=== PATIENT | female | born 1940 | race Caucasian/White ===

== ENCOUNTER → 2017-03-22 15:58 | Outpatient (CLI) | payer MEDICARE, OTHER, SELFPAY ==
--- NOTE | 2017-03-22 16:02 | RAD_ITS ---
STUDY: X-RAY - LEFT KNEE REASON FOR EXAM: Female, 76 years old. Lateral bruising. Pain. TECHNIQUE: 4 view(s) of the knee. COMPARISON: None. FINDINGS: Normal visualized distal femur. Normal visualized proximal tibia and fibula. Normal proximal tibiofibular articulation. There is no acute fracture, dislocation or destructive osseous pathology. Normal medial femorotibial compartment. Normal lateral femorotibial compartment. There is moderate degenerative arthrosis of the patellofemoral articulation. There is no demonstrated joint effusion. The soft tissue structures are unremarkable. RAD/Knee 4 or More Views IMPRESSION: Mild arthrosis of the left knee. Electronically Signed: Derrick Ireland DO at 16:32 EST Tel [phone], Service support ,
[2017-03-22 17:02] LABS: Absolute Lymphocyte Count 3.14 X10^3/ul (0.83-4.51); Basophil# 0.06 X10^3/uL; Basophil% 0.7 % (0-1); Eosinophil# 0.23 X10^3/uL; Eosinophils% 2.5 % (0-5); Hematocrit 40.1 % (37-47); Hemoglobin 13.5 g/dl (12.0-15.0); Lymphocyte # 3.14 X10^3/ul (4.0); Lymphocyte % 34.1 % (19-41); Mean Corp Hgb Conc 33.7 g/gl (32-36); Mean Corpuscular Hgb 29.9 pg (27.0-32.0); Mean Corpuscular Volume 88.7 fL (81-99); Mean Platelet Vol. 10.1 fl (6.2-12.0); Monocyte# 0.76 X10^3/uL; Monocyte% 8.2 % (0-10); Neutrophil # 5.02 X10^3/uL (2.7-7.7); Neutrophil % 54.4 % (47-70); Platelet Count 261 K/mm3 (150-450); RBC Distribution Width CV 12.3 % (11.6-14.6); RBC Distribution Width SD 38.7 fl (35.1-43.9); Red Blood Count 4.52 M/mm3 (4.2-5.4); White Blood Count 9.2 K/mm3 (4.4-11.0)
[2017-03-22 17:05] LABS: POSITIVE COUNT NO; POSITIVE DIFFERENTIAL NO; POSITIVE MORPHOLOGY NO
[2017-03-22 17:43] LABS: Anion Gap 8 (5-15); BUN 18 mg/dL (7-18); BUN/Creat Ratio 19.2 RATIO (10-20); CRP < 2.90 mg/L (0.0-3.0); Calcium,Total 9.4 mg/dL (8.5-10.1); Chloride 105 mmol/L (98-107); Creatinine, Serum 0.94 mg/dL (0.55-1.02); EST Glomerular Filtration Rate 61 mL/min (>60); Est Glom Filt Rate - Afr Amer 74 mL/min (>60); Glucose 100 mg/dL (74-106); Potassium 4.1 mmol/L (3.5-5.1); Sodium Level 141 mmol/L (136-145); Uric Acid 3.8 mg/dL (2.6-6.0)
[2017-03-22 18:41] LABS: Erythrocyte Sedimentation Rate 3 mm/hr (0-30)
== END ==
PROVIDERS: Family Provider Family Medicine Geriatric Medicine; PCP Family Medicine Geriatric Medicine; Visit Provider Family Medicine Geriatric Medicine
DX: M10.9 Gout, unspecified (principal); R60.9 Edema, unspecified; M25.562 Pain in left knee
CPT/HCPCS: 36415; 73564; 80048; 84550; 85025; 85652; 86140

== ENCOUNTER → 2017-04-03 09:14 | Outpatient (CLI) | payer MEDICARE, OTHER, SELFPAY ==
--- NOTE | 2017-04-03 10:00 | MRI_ITS ---
STUDY: MRI LEFT KNEE REASON FOR EXAM: Left knee pain for 6 weeks. TECHNIQUE: Standardized fat and water weighted pulse sequences were obtained in all 3 orthogonal planes. COMPARISON: Radiographs 03/22/2017. FINDINGS: There is a complex tear of the posterior horn of the medial meniscus (proton-density sagittal images 13-15). There is mild peripheral subluxation of the medial meniscus. There is mild arthrosis of the medial femorotibial compartment with a small marginal osteophyte of the medial femoral condyle and mild partial-thickness chondral loss of the medial femoral condyle (T2 sagittal image 9). There is mild subchondral bone edema of the medial tibial plateau (T2 coronal images 15-18), a stress phenomenon. There is periligamentous inflammation of the medial collateral ligament (T2 coronal image 15). Normal distal semimembranosus, gracilis and semitendinosus tendons. There is a vertical tear of the inferior articular surface of the anterior horn of the lateral meniscus (proton-density sagittal images 31-34). Normal hyaline cartilage of the lateral femorotibial compartment. Normal lateral femoral condyle and tibial plateau. Normal proximal tibiofibular articulation. Normal lateral collateral (fibular) ligament. Normal popliteus tendon. Normal biceps femoris tendon. Normal anterior cruciate ligament (ACL). Normal posterior cruciate ligament (PCL). Normal congruent patellofemoral articulation. There is arthrosis of the patellofemoral compartment with small marginal osteophytes and chondral loss, particularly of the patella (sagittal image 13). Normal medial and lateral patellar retinaculum. Normal quadriceps tendon. Normal patellar tendon. Normal Hoffa's fat pad. There is a small to moderate-sized joint effusion. There is a thin medial patellar plica. There is a popliteal cyst measuring approximately 3.9 cm in length with extravasation of fluid (T2 sagittal images 7-11). There is edema in the anterior subcutis adipose space. The otherwise visualized osseous structures are unremarkable. MRI/Lower Ext Joint Only (Routine) IMPRESSION: Medial meniscal tear. Lateral meniscal tear. Patellofemoral arthrosis and mild arthrosis of the medial femorotibial compartment. Mild subchondral bone edema of the medial tibial plateau, a stress phenomenon. Periligamentous inflammation of the medial collateral ligament. Joint effusion. Popliteal cyst with extravasation of fluid. Electronically Signed: Marcelino Braxton MD at 11:21 EST Tel , Service support ,
== END ==
PROVIDERS: Family Provider Family Medicine Geriatric Medicine; PCP Family Medicine Geriatric Medicine; Visit Provider Family Medicine Geriatric Medicine
DX: M25.569 Pain in unspecified knee (principal)
CPT/HCPCS: 73721

== ENCOUNTER → 2017-04-17 14:15 | Outpatient (CLI) | payer MEDICARE, OTHER, SELFPAY ==
[2017-04-17 16:41] LABS: Absolute Lymphocyte Count 1.87 X10^3/ul (0.83-4.51); Absolute Neutrophil Count 8.3 X10^3/uL (2.0-7.7); Basophil# 0.03 X10^3/uL; Basophil% 0.3 % (0-1); Eosinophil# 0.11 X10^3/uL; Hematocrit 42.9 % (37-47); Lymphocyte # 1.87 X10^3/ul (4.0); Lymphocyte % 16.6 % (19-41); Mean Corp Hgb Conc 32.6 g/gl (32-36); Mean Corpuscular Hgb 29.5 pg (27.0-32.0); Mean Corpuscular Volume 90.3 fL (81-99); Mean Platelet Vol. 10.6 fl (6.2-12.0); Monocyte# 0.93 X10^3/uL; Monocyte% 8.2 % (0-10); Neutrophil # 8.33 X10^3/uL (2.7-7.7); Neutrophil % 73.7 % (47-70); Platelet Count 277 K/mm3 (150-450); RBC Distribution Width CV 12.6 % (11.6-14.6); RBC Distribution Width SD 41.5 fl (35.1-43.9); Red Blood Count 4.75 M/mm3 (4.2-5.4); White Blood Count 11.3 K/mm3 (4.4-11.0)
[2017-04-17 16:46] LABS: POSITIVE COUNT NO; POSITIVE DIFFERENTIAL NO; POSITIVE MORPHOLOGY NO
[2017-04-17 16:55] LABS: ALB/GLOB Ratio 1.1 RATIO (0.9-2.4); AST(SGOT) 19 U/L (15-37); Alanine Aminotransfer ALT/SGPT 20 U/L (13-56); Albumin, Serum 3.5 g/dL (3.2-5.0); Alkaline Phosphatase 86 U/L (45-117); Anion Gap 6 (5-15); BUN 22 mg/dL (7-18); BUN/Creat Ratio 20.8 RATIO (10-20); Calcium,Total 9.3 mg/dL (8.5-10.1); Chloride 106 mmol/L (98-107); Creatinine, Serum 1.06 mg/dL (0.55-1.02); EST Glomerular Filtration Rate 53 mL/min (>60); Est Glom Filt Rate - Afr Amer 65 mL/min (>60); Globulin 3.2 g/dL (2.2-4.2); Glucose 131 mg/dL (74-106); Potassium 4.4 mmol/L (3.5-5.1); Protein, Total 6.7 g/dL (6.4-8.2); Sodium Level 139 mmol/L (136-145); Thyroid Stim Hormone (TSH) 1.03 uIU/mL (0.358-3.74)
[2017-04-18 08:51] LABS: Vitamin D,25 Hydroxy 29.4 ng/mL (29.95-100.01)
== END ==
PROVIDERS: Family Provider Family Medicine Geriatric Medicine; PCP Family Medicine Geriatric Medicine; Visit Provider Family Medicine Geriatric Medicine
DX: E55.9 Vitamin D deficiency, unspecified (principal); I10 Essential (primary) hypertension
CPT/HCPCS: 36415; 80053; 82306; 84443; 85025

== ENCOUNTER 2017-05-01 05:31 | Inpatient (IN) | payer MEDICARE, OTHER, SELFPAY ==
[2017-04-24 11:18] VITALS: BP 185/90; PULSE 56; RESP 16; TEMP 37.1; O2SAT 100; BMI 28.7
[2017-05-01] VITALS (12 sets, daily range): BP systolic 139–193; BP diastolic 72–89; PULSE 59–86; RESP 16–18; TEMP 35.7–36.9; O2SAT 92–100; BMI 28.7; BMI 28.6
--- NOTE | 2017-05-01 | KNEE_PTH ---
PATIENT: JANIA SPRAGUE LOC: [facility]3 U#:[id number] AGE/SX: 76/F ROOM: [facility]307 RE05/01/[address]: Luan Burns DO : 1940 BED: 1 DIS: 05/04/2017 SPEC #: [id number] RECD: 05/01/17 11:24 STATUS: ISMAEL MARY BETH #: [id number] JYOTI: 05/01/17 00:[address]: Luan Burns DEPT: SURGICAL PATHOLOGY RECD BY: Jose Solis ENTERED: 05/01/17 11:26 SP TYPE: TOTAL KNEE OTHR DR: Dr. Brandon March MD Tissues: Knee, NOS Procedures: Decalcification bone/plaque Surgery Specimen Level IV HEADER OPERATION: Total knee replacement PRE-OP DIAGNOSIS: Primary osteoarthritis of left knee TISSUE SUBMITTED: Debrided bone and tissue, left knee MICROSCOPIC DIAGNOSIS Bone and soft tissue of left knee, total knee resection: Degenerative joint disease. AM:jerri 05/04/17 MICROSCOPIC DESCRIPTION Slides are reviewed. GROSS DESCRIPTION Received is one container designated debrided bone and tissue left knee. The specimen consists of multiple fragments of edwards-yellow bone measuring in aggregate 10 x 9 x 3 cm. Also in the specimen container are multiple fragments of yellow-white soft tissue measuring in aggregate 6 x 6 x 2.5 cm. A number of bony fragments contain articular surfaces consistent with tibial plateau and femoral condyle and displaying prominent osteophyte formation and bone erosion. Refrigerator Mover sections are submitted in two cassettes as follows: 1 - soft tissue, 2 - bone after decalcification. / EMILY:jerri 05/01/17 TC:5 CPT: 38458, 43678
[2017-05-01] MEDS: Celecoxib 200 MG Capsule PO (06:12)
[2017-05-01] MEDS: oxyCODONE HCl Cr 10 MG Tablet PO ×2 (06:12→23:26)
[2017-05-01] MEDS: Cefazolin 2 GM in 0.9% Normal Saline 100 ML IV (07:13)
--- NOTE | 2017-05-01 08:54 | OP.PN_ITS ---
Immediate Post-Op Note Date of Procedure: 05/01/17 Primary Surgeon/Physician: Luan Burns DO real estate developer: Herlinda Mclean Pre-Operative Diagnosis: Left knee osteoarthritis and internal derangement. Post-Operative Diagnosis: Same as above Surgery/Procedure Performed:: Left total knee arthroplasty Humberto ESPITIA Description of Surgical Findings:: See dictation Estimated Blood Loss: 50 Specimen's removed: Bone cuts Type of Anesthesia:: Spinal ASA Class: ASA2 Mod Systematic Disease - Admit VTE Documentation VTE Present on Admission: No VTE Mechan Device Prophylaxis: SCD's, Knee High BETTIE Alvarado
--- NOTE | 2017-05-01 08:54 | PCM.OPRPT ---
Report of Operation Date of Procedure: 05/01/17 Pre-Operative Diagnosis: Left knee osteoarthritis and internal derangement. Post-Operative Diagnosis: Same as above Surgery/Procedure Performed:: Left total knee arthroplasty Humberto marjan ESPITIA Description of Surgical Findings:: 76-year-old female with recalcitrant left knee pain that failed nonoperative management to include NSAIDs and modifications physical therapy injections. She had plain from radiographs are relatively normal however MRI showed significant extrusion of her meniscus subchondral edema and degenerative changes across the medial patellofemoral joint. Having failed conservative measures and having done so well with previous right total knee arthroplasty patient desired a left total knee arthroplasty. She was up to counseled and consented for left total knee. She was met in the holding area where the left lower extremity was marked and identified by the with surgeon. Patient was taken the operating room in satisfactory condition with somewhat to place to identify patient operative procedure and limb. Patient received 2 g Ancef and 1 g of TXA. Patient underwent a successful spinal anesthesia. She was then prepped and draped in usual fashion. She had a well-placed tourniquet to the left proximal thigh. Left lower extremity was elevated Esmarch used for exsanguination tourniquet was increased to 250 mmHg for roughly 59 minutes. Patient had a standard midline incision made 2 fingerbreadths above the patella down to the tibial tubercle with sharp dissection down to soft tissues and Bovie cautery to control any bleeding. The patient then underwent a standard medial parapatellar approach.. Patient had a large return effusion. He can be seen the patient had significant chondromalacia across the medial compartment the patellofemoral joint lateral compartment was relatively preserved. Standard anterior release and synovectomy was undertaken. We then performed a standard posterior medial release. We then entered into the intramedullary canal to perform our distal femoral cut of 8 mm with 6? valgus. This was done using standard technique. We then sized. The patient sized to a size 3. Size 3 cutting jig was then introduced to the distal femur and remnant cuts were performed. We recheck to see if we can go down to a size 2 but we would have notch the femur. We elected to stay with a 3 component. We then turned our attention to the tibia. The guide was set for a CR component to the fact the patient had an intact PCL. Standard cuts were performed taking 2 mm off the medial side. Temporary spacer was introduced and the patient showed good mechanical alignment at 0 30 and 90? of flexion with no flexion extension gaps. At that point the femoral component was introduced a 9 femoral tray and again we had excellent stability at 0 3090? of flexion. Keel holes were placed for the femoral component. The component was then extracted and the keel punch placed for the tibial tray. This was done using standard technique. Then turned our attention to the patella. Patella is overall thickness was 20. We took off 9. The patient sized with 32 button. Standard holes were then placed in anticipation of a cemented component. We then copiously irrigated the knee removed any of the excess menisci from the medial lateral compartments and cauterized the posterior geniculate vessels both anteromedial and posterior medial and anterolateral posterior lateral. Cement was then prepared the back table using standard technique. We then cemented the tibial tray femoral component and placed a 9 mm spacer allowing for good compression. Patella was then seated using standard technique. Cement was allowed to cure accordingly. I then injected with 50 cc of the joint cocktail for additional pain control. At that point time upon cement curing any excess cement was removed around the periphery of the joints. The joint was run copiously irrigated multiple times remove any excess debris. At that point we elected to place a 9 CS Perlita. This was impacted using standard technique. We had excellent patellar tracking. After a small lateral release. We then began our closure. The leg was brought to 30? knee flexion of the distal two thirds of the wound were closed with [id number] technique. The proximal one third closed in full extension. The tourniquet was let down during final closure at 59 minutes. We closed the subcu with 2-0 Vicryl running subicular Monocryl Dermabond and a Silverlon dressing placed in 30? knee flexion. Compressive wrap was then applied. I was scrubbed and available time during our procedure. We had no drains or complications. Implants included the Humberto triathlon CR component again 3 femur 3 tibia 9 CS Perlita and a 32 patella button. Patient was admitted to floor for 24 hours of IV antibiotics appropriate IV and p.o. pain medication and DVT prophylaxis to include SCDs teds and 325 p.o. twice daily of aspirin with appropriate GI prophylaxis. Any major issues please contact me. laundry helper: Herlinda Mclean Type of Anesthesia:: Spinal Specimen's removed: Bone cuts Estimated Blood Loss (mL): 50 Grafts/Implants Used: Striker triathlon cemented CR 3, 3, 9 CS, 32 - Complications None - Admit VTE Documentation VTE Present on Admission: No VTE Mechan Device Prophylaxis: SCD's, Knee High BETTIE Hose VTE Pharm Prophylaxis ordered?: Yes
--- NOTE | 2017-05-01 09:30 | RAD_ITS ---
STUDY: X-RAY - LEFT KNEE REASON FOR EXAM: Female, 76 years old. Total knee replacement. TECHNIQUE: AP and lateral view(s) of the knee. COMPARISON: Comparison is made with prior study dated March 22, 2017. FINDINGS: Normal visualized distal femur. Normal visualized proximal tibia and fibula. Normal proximal tibiofibular articulation. The patient is status post total knee replacement. There is good alignment. Postoperative soft tissue changes. RAD/Knee 1 or 2 Views IMPRESSION: Total knee replacement. There is good alignment. Postoperative soft tissue changes. Electronically Signed: Mendoza Galloway MD at 10:21 EDT Tel [phone], Service support ,
[2017-05-01] MEDS: cloNIDine HCl 0.2 MG Tablet PO ×2 (11:58→23:27)
[2017-05-01] MEDS: Senna/Docusate Sodium 1 Tablet 2 TABLET PO ×2 (12:00→23:28)
[2017-05-01] MEDS: Famotidine 20 MG Tablet PO (12:00)
[2017-05-01] MEDS: Acetaminophen 500 MG Tablet 1000 MG PO ×2 (14:44→23:27)
[2017-05-01] MEDS: Cefazolin 1 GM/50 ML BAG IV ×2 (14:45→23:28)
--- NOTE | 2017-05-01 15:18 | CHAPLAIN ---
Type of Pastoral Visit _x__ Initial Visit ___ Follow-up Visit ___ On-call Visit ___ General Patient Visit ___ Spiritual Assessment ___ Family Conference ___ Bereavement ___ Rapid Response ___ Code Blue ___ Other (describe below) Pastoral Care Referral From _x__ Patient ___ Family ___ Nurse ___ Physician ___ Youth Leader ___ Quarry Extraction Worker ___ Other (describe below) Sacrament/Intervention _x__ Active listening ___ Anointing ___ Anabaptism ___ Bereavement ___ Communion ___ Amber exploration ___ ___ Life review _x__ Prayer ___ Reconciliation ___ Sacrament of Sick ___ Supportive presence ___ Wedding ___ Other (describe below) Pastoral Comments
--- NOTE | 2017-05-01 15:52 | CASEMGMT ---
Social Work Note According to Dr. Burns pt wanted TCU for rehabilitation. Placed call to [facility] to check on availability and left vm. Will f/u tomorrow. Transfer to [facility] forms placed on chart for physician to sign. Plan: TCU for rehabilitation. Sarita Peters, LIQUOR DEPARTMENT MANAGER, PSYCHOLOGICAL OPERATIONS SPECIALIST
[2017-05-01] MEDS: HYDROcodone Bitartrate/Apap 5/325 Tablet PO (18:27)
[2017-05-01] MEDS: Lactated Ringers 1,000 ML 75 ML IV (18:28)
[2017-05-01] MEDS: Aspirin 325 MG Tablet PO (23:27)
[2017-05-01] MEDS: 0.9% NaCl Peripheral Flush Adult/Peds IV (23:39)
[2017-05-01] MEDS: Ondansetron 4 MG/2 ML Vial IV (23:40)
[2017-05-02] VITALS (8 sets, daily range): BP systolic 158–217; BP diastolic 65–87; PULSE 68–81; RESP 16–18; TEMP 36.6–37; O2SAT 95–97
[2017-05-02 06:01] LABS: Hematocrit 35.8 % (37-47); Hemoglobin 11.8 g/dl (12.0-15.0); Mean Corpuscular Hgb 29.7 pg (27.0-32.0); Mean Corpuscular Volume 90.2 fL (81-99); Mean Platelet Vol. 9.8 fl (6.2-12.0); Platelet Count 217 K/mm3 (150-450); RBC Distribution Width CV 12.4 % (11.6-14.6); RBC Distribution Width SD 40.2 fl (35.1-43.9); Red Blood Count 3.97 M/mm3 (4.2-5.4); White Blood Count 14.6 K/mm3 (4.4-11.0)
[2017-05-02 06:05] LABS: Scan Indicated on CBC? Y/N NO
[2017-05-02 06:06] LABS: Anion Gap 4 (5-15); BUN 15 mg/dL (7-18); BUN/Creat Ratio 15.8 RATIO (10-20); Calcium,Total 8.9 mg/dL (8.5-10.1); Chloride 109 mmol/L (98-107); Creatinine, Serum 0.95 mg/dL (0.55-1.02); EST Glomerular Filtration Rate 61 mL/min (>60); Est Glom Filt Rate - Afr Amer 73 mL/min (>60); Estimated Creatinine Clearance 37.42 ml/min; Glucose 106 mg/dL (74-106); Potassium 4.9 mmol/L (3.5-5.1); Sodium Level 142 mmol/L (136-145)
[2017-05-02] MEDS: 0.9% NaCl Peripheral Flush Adult/Peds IV ×5 (06:19→20:33)
[2017-05-02] MEDS: Acetaminophen 500 MG Tablet 1000 MG PO ×3 (06:21→21:48)
[2017-05-02] MEDS: cloNIDine HCl 0.2 MG Tablet PO ×3 (06:22→21:48)
[2017-05-02] MEDS: HYDROcodone Bitartrate/Apap 5/325 Tablet PO (06:28)
--- NOTE | 2017-05-02 07:35 | NURSING ---
Spoke to Dr. Burns this am in regards to pts elevated BP. Will have hospitalist take a look at pt to see about adjusting BP meds or adding prn meds
--- NOTE | 2017-05-02 07:48 | PCM.PN.ORT ---
Subjective: Postop day 1 status post left total knee arthroplasty. Patient with some hypertension issues last night will consult the hospitalist team. We will adjust her pain medication at this time as well. Patient was really unsure prior to operation which pain medication she may tolerate. But this point still having some pain so we will convert her from [place] to OxyIR. No other real issues at this time. Lab values appear to be stable. Heart rate within the 80s. Awaiting approval for transfer to transitional care unit if available. - Physical Exam General: Alert, Oriented x3, Cooperative, No apparent distress Musculoskeletal: - - Distally neurovascular intact, no calf pain negative Homans. Dressing in place. No hematoma grossly. Range of motion 0-80. EHL anterior gastric shoulders peroneals quads hamstrings 5 out of 5. X-rays reviewed hardware well seated well-placed. Lab values reviewed and stable. Vital Signs Temp Pulse Resp BP Pulse Ox 98.1 F 74 16 197/80 H 96 05/02/17 02:30 05/02/17 06:25 05/02/17 02:30 05/02/17 06:25 05/02/17 02:30 Oxygen Flow Rate (L/min) 1 Oxygen Delivery Method Nasal Cannula Weight: 155 lb 13.869 oz Body Mass Index (BMI) 28.6 Intake and Output for Last 24 Hours 04/30/17 05/01/17 05/02/17 23:59 23:59 23:59 Intake Total 3703 / 3703 708 / 708 Balance 3703 / 3703 708 / 708 Laboratory Tests Past 24 Hrs 05/02/17 05/02/17 05:24 05:24 WBC 14.6 H RBC 3.97 L Hgb 11.8 L Hct 35.8 L MCV 90.2 MCH 29.7 MCHC 33.0 RDW 12.4 RDW Differential 40.2 Plt Count 217 MPV 9.8 Sodium 142 Potassium 4.9 Chloride 109 H Carbon Dioxide 29.0 Anion Gap 4 L BUN 15 Creatinine 0.95 Estim Creat Clear Calc 37.42 Est GFR (MDRD) Af Amer 73 Est GFR (MDRD) Non-Af 61 BUN/Creatinine Ratio 15.8 Glucose 106 Calcium 8.9 Medical Necessity - Tobacco Use Smoking Status: Never smoker Assessment/Plan Assessment: After orthopedics status post left total knee arthroplasty. Plan: We will consult the hospitalist to see if they need to add on any antihypertensive medications at this time. I will adjust her pain medications as well. Case management to evaluate for possible transfer to a senior care facility for rehab. We will continue to follow at this time. Any major issues please contact me.
[2017-05-02] MEDS: Losartan Potassium 100 MG Tablet PO (09:38)
[2017-05-02] MEDS: Senna/Docusate Sodium 1 Tablet 2 TABLET PO ×2 (09:38→21:47)
[2017-05-02] MEDS: Famotidine 20 MG Tablet PO (09:38)
[2017-05-02] MEDS: oxyCODONE HCl Cr 10 MG Tablet PO ×2 (09:38→21:48)
[2017-05-02] MEDS: Aspirin 325 MG Tablet PO ×2 (09:39→17:04)
--- NOTE | 2017-05-02 10:20 | CASEMGMT ---
Social Work Note SW met with pt, introduced self and role. SW informed pt that TCU has a bed and she will be discharging Sunday to TCU. Pt states understanding. Samira Sevilla FOREIGN EXCHANGE TRADER, FIELD AIDE.
[2017-05-02] MEDS: oxyCODONE 5 MG Tablet 10 MG PO (11:14)
[2017-05-02] MEDS: Multivitamins,Therapeutic Tablet 1 TABLET PO (11:15)
[2017-05-02] MEDS: hydrALAZINE 20 MG/ML Vial 10 MG IV (14:40)
--- NOTE | 2017-05-02 14:46 | PCM.PROGNOTE ---
Patient Problems: Active and Suspected Problems (Last Updated 04/09/17 @ 14:08 by Kendrick Godwin) Status post total left knee replacement (Acute) Subjective: Chief complaint: Consultation for postoperative medical management and uncontrolled hypertension. Patient seen and examined. No acute events overnight. Patient stated that her left knee pain is around 4-5 out of 10 in severity, management at this time. Current pain medication is working. She just came back from therapy session. She denied chest pain or shortness of breath. Denied headache or blurred vision. She mentioned that she was diagnosed with hypertension around 1 year ago and her blood pressure usually is not controlled. Her systolic blood pressure can be anywhere from 130s up to 190s. Diastolic blood pressures around 90s and that is her usual. Apparently, she underwent workup as outpatient for possible renal artery stenosis. She had bilateral renal duplex on April, that showed no evidence of hemodynamically significant renal artery stenosis. She had MRA abdomen on May, that showed no evidence of renal artery stenosis, revealed to left renal arteries without demonstrated narrowing or stenosis. Has been following up with Dr. Mixon, the vascular surgeon, as well as Dr. Jacobo, the shipping packer, as outpatient. Her blood pressure has been fluctuating significantly. Last night, maximum blood pressure was 193/89. Her other vital signs are stable. - Physical Exam General: Alert, Oriented x3, Cooperative, No apparent distress HEENT: Atraumatic, PERRLA, EOMI Oral: Moist Mucosa, No Gingival or Mucosal Lesions/ Ulcerations Neck: Supple, No JVD, Negative Carotid Bruits, Trachea Midline, Thyroid Normal Size and Texture Lungs: Clear to auscultation, Normal air movement, No rhonchi, No wheeze Cardiovascular: Regular rate, Regular Rhythm, Normal S1, Normal S2, No murmurs Abdomen: Bowel Sounds Present, Soft, Non Tender, Non-Distended, No Hepato-splenomegaly Extremities: No clubbing, No cyanosis, No edema Skin: No rashes, No breakdown Lymphatic: No Cervical, Supraclavicular, or Inguinal Adenopathy Neurological: Motor Exam 5/5 strength throughout Psych/Mental Status: Normal Affect, Appropriate, Alert and oriented to time, place, person, mood and affect Vital Signs Temp Pulse Resp BP Pulse Ox 98.6 F 68 18 159/79 H 95 05/02/17 09:17 05/02/17 09:17 05/02/17 09:17 05/02/17 09:17 05/02/17 09:17 Oxygen Flow Rate (L/min) 1 Oxygen Delivery Method Room Air Weight: 155 lb 13.869 oz Body Mass Index (BMI) 28.6 Intake and Output for Last 24 Hours 04/30/17 05/01/17 05/02/17 23:59 23:59 23:59 Intake Total 3703 / 3703 2358 / 2358 Balance 3703 / 3703 2358 / 2358 Laboratory Tests Past 24 Hrs 05/02/17 05/02/17 05:24 05:24 WBC 14.6 H RBC 3.97 L Hgb 11.8 L Hct 35.8 L MCV 90.2 MCH 29.7 MCHC 33.0 RDW 12.4 RDW Differential 40.2 Plt Count 217 MPV 9.8 Sodium 142 Potassium 4.9 Chloride 109 H Carbon Dioxide 29.0 Anion Gap 4 L BUN 15 Creatinine 0.95 Estim Creat Clear Calc 37.42 Est GFR (MDRD) Af Amer 73 Est GFR (MDRD) Non-Af 61 BUN/Creatinine Ratio 15.8 Glucose 106 Calcium 8.9 Clinical Impression(s) from Imaging Studies Knee X-Ray 05/01/17 09:30 IMPRESSION: Total knee replacement. There is good alignment. Postoperative soft tissue changes. Electronically Signed: Mendoza Galloway MD at 10:21 EDT Tel [phone], Service support , Medical Necessity - Tobacco Use Smoking Status: Never smoker Assessment/Plan Active and Suspected Problems (Last Updated 04/09/17 @ 14:08 by Kendrick Godwin) Status post total left knee replacement (Acute) This is a 76 years old female patient admitted for elective left total knee replacement for left knee osteoarthritis and I am seeing this patient for postoperative medical management and uncontrolled hypertension. #1 status post left total knee replacement: Postoperative day 1, this was done for left knee osteoarthritis. She is on IV morphine and OxyIR as needed for pain. She started in physical therapy. Her pain is manageable at this time. Orthopedic surgery is managing. #2 uncontrolled hypertension: Patient was diagnosed with hypertension one year ago, has been having uncontrolled hypertension. She had workup for possible secondary hypertension with bilateral renal Doppler as well as MRI of the abdomen that revealed no evidence of renal artery stenosis. She has been following up with Dr. Jacobo and Dr. Mixon as mentioned above. At this time, she is on clonidine and losartan. Blood pressure has been fluctuating significantly. Her left knee pain is also contributing. Plan: Continue clonidine, continue Cipro, start IV hydrazine as needed. I would recommend follow-up with Dr. Mixon and her PCP upon discharge. #3 DVT prophylaxis: SCDs, she is on aspirin full dose twice daily. This note was generated with [employer] dictation software. It may contain incorrect words, spelling, and punctuation that were not noted in checking the note before signing. Code Visit Inpatient E&M: 72405 Subs Hosp L2
--- NOTE | 2017-05-02 14:55 | PN_ITS ---
Patient Problems: Active and Suspected Problems (Last Updated 04/09/17 @ 14:08 by Kendrick Godwin) Status post total left knee replacement (Acute) Subjective: Chief complaint: Consultation for postoperative medical management and uncontrolled hypertension. Patient seen and examined. No acute events overnight. Patient stated that her left knee pain is around 4-5 out of 10 in severity, management at this time. Current pain medication is working. She just came back from therapy session. She denied chest pain or shortness of breath. Denied headache or blurred vision. She mentioned that she was diagnosed with hypertension around 1 year ago and her blood pressure usually is not controlled. Her systolic blood pressure can be anywhere from 130s up to 190s. Diastolic blood pressures around 90s and that is her usual. Apparently, she underwent workup as outpatient for possible renal artery stenosis. She had bilateral renal duplex on April, that showed no evidence of hemodynamically significant renal artery stenosis. She had MRA abdomen on May, that showed no evidence of renal artery stenosis, revealed to left renal arteries without demonstrated narrowing or stenosis. Has been following up with Dr. Mixon, the vascular surgeon, as well as Dr. Jacobo, the window installer, as outpatient. Her blood pressure has been fluctuating significantly. Last night, maximum blood pressure was 193/89. Her other vital signs are stable. - Physical Exam General: Alert, Oriented x3, Cooperative, No apparent distress HEENT: Atraumatic, PERRLA, EOMI Oral: Moist Mucosa, No Gingival or Mucosal Lesions/ Ulcerations Neck: Supple, No JVD, Negative Carotid Bruits, Trachea Midline, Thyroid Normal Size and Texture Lungs: Clear to auscultation, Normal air movement, No rhonchi, No wheeze Cardiovascular: Regular rate, Regular Rhythm, Normal S1, Normal S2, No murmurs Abdomen: Bowel Sounds Present, Soft, Non Tender, Non-Distended, No Hepato- splenomegaly Extremities: No clubbing, No cyanosis, No edema Skin: No rashes, No breakdown Lymphatic: No Cervical, Supraclavicular, or Inguinal Adenopathy Neurological: Motor Exam 5/5 strength throughout Psych/Mental Status: Normal Affect, Appropriate, Alert and oriented to time, place, person, mood and affect Vital Signs Temp Pulse Resp BP Pulse Ox 98.6 F 68 18 159/79 H 95 05/02/17 09:17 05/02/17 09:17 05/02/17 09:17 05/02/17 09:17 05/02/17 09:17 Oxygen Flow Rate (L/min) 1 Oxygen Delivery Method Room Air Weight: 155 lb 13.869 oz Body Mass Index (BMI) 28.6 Intake and Output for Last 24 Hours 04/30/17 05/01/17 05/02/17 23:59 23:59 23:59 Intake Total 3703 / 3703 2358 / 2358 Balance 3703 / 3703 2358 / 2358 Laboratory Tests Past 24 Hrs 05/02/17 05/02/17 05:24 05:24 WBC 14.6 H RBC 3.97 L Hgb 11.8 L Hct 35.8 L MCV 90.2 MCH 29.7 MCHC 33.0 RDW 12.4 RDW Differential 40.2 Plt Count 217 MPV 9.8 Sodium 142 Potassium 4.9 Chloride 109 H Carbon Dioxide 29.0 Anion Gap 4 L BUN 15 Creatinine 0.95 Estim Creat Clear Calc 37.42 Est GFR (MDRD) Af Amer 73 Est GFR (MDRD) Non-Af 61 BUN/Creatinine Ratio 15.8 Glucose 106 Calcium 8.9 Clinical Impression(s) from Imaging Studies Knee X-Ray 05/01/17 09:30 IMPRESSION: Total knee replacement. There is good alignment. Postoperative soft tissue changes. Electronically Signed: Mendoza Galloway MD at 10:21 EDT Tel [phone], Service support , Medical Necessity - Tobacco Use Smoking Status: Never smoker Assessment/Plan Active and Suspected Problems (Last Updated 04/09/17 @ 14:08 by Kendrick Godwin) Status post total left knee replacement (Acute) This is a 76 years old female patient admitted for elective left total knee replacement for left knee osteoarthritis and I am seeing this patient for postoperative medical management and uncontrolled hypertension. #1 status post left total knee replacement: Postoperative day 1, this was done for left knee osteoarthritis. She is on IV morphine and OxyIR as needed for pain. She started in physical therapy. Her pain is manageable at this time. Orthopedic surgery is managing. #2 uncontrolled hypertension: Patient was diagnosed with hypertension one year ago, has been having uncontrolled hypertension. She had workup for possible secondary hypertension with bilateral renal Doppler as well as MRI of the abdomen that revealed no evidence of renal artery stenosis. She has been following up with Dr. Jacobo and Dr. Mixon as mentioned above. At this time, she is on clonidine and losartan. Blood pressure has been fluctuating significantly. Her left knee pain is also contributing. Plan: Continue clonidine, continue Cipro, start IV hydrazine as needed. I would recommend follow-up with Dr. Mixon and her PCP upon discharge. #3 DVT prophylaxis: SCDs, she is on aspirin full dose twice daily. This note was generated with [employer] dictation software. It may contain incorrect words, spelling, and punctuation that were not noted in checking the note before signing. Code Visit Inpatient E&M: 43541 Subs Hosp L2
--- NOTE | 2017-05-02 16:38 | NURSING ---
Verified all charting and agreed with charting of Cyndi Jade
[2017-05-02] MEDS: DiphenhydrAMINE 25 MG Capsule PO (17:35)
[2017-05-02] MEDS: Enalaprilat 1.25 MG/ML Vial IV (18:16)
[2017-05-03] VITALS (10 sets, daily range): BP systolic 159–235; BP diastolic 68–129; PULSE 71–86; RESP 16; TEMP 36.4–36.9; O2SAT 92–100
[2017-05-03] MEDS: Acetaminophen 500 MG Tablet 1000 MG PO ×3 (06:06→21:58)
[2017-05-03] MEDS: cloNIDine HCl 0.2 MG Tablet PO ×3 (06:06→21:59)
[2017-05-03 06:08] LABS: Hematocrit 36.5 % (37-47); Hemoglobin 12.1 g/dl (12.0-15.0); Mean Corp Hgb Conc 33.2 g/gl (32-36); Mean Corpuscular Hgb 29.8 pg (27.0-32.0); Mean Corpuscular Volume 89.9 fL (81-99); Mean Platelet Vol. 9.9 fl (6.2-12.0); Platelet Count 230 K/mm3 (150-450); RBC Distribution Width CV 12.8 % (11.6-14.6); RBC Distribution Width SD 41.9 fl (35.1-43.9); Red Blood Count 4.06 M/mm3 (4.2-5.4); White Blood Count 13.5 K/mm3 (4.4-11.0)
[2017-05-03 06:24] LABS: Scan Indicated on CBC? Y/N NO
[2017-05-03 06:29] LABS: Anion Gap 6 (5-15); BUN 16 mg/dL (7-18); BUN/Creat Ratio 19.3 RATIO (10-20); Calcium,Total 9.3 mg/dL (8.5-10.1); Chloride 107 mmol/L (98-107); Creatinine, Serum 0.83 mg/dL (0.55-1.02); EST Glomerular Filtration Rate 71 mL/min (>60); Est Glom Filt Rate - Afr Amer 86 mL/min (>60); Estimated Creatinine Clearance 42.83 ml/min; Glucose 97 mg/dL (74-106); Potassium 4.3 mmol/L (3.5-5.1); Sodium Level 140 mmol/L (136-145)
[2017-05-03] MEDS: hydrALAZINE 20 MG/ML Vial 10 MG IV (06:57)
[2017-05-03] MEDS: Senna/Docusate Sodium 1 Tablet 2 TABLET PO ×2 (08:13→22:00)
[2017-05-03] MEDS: oxyCODONE 5 MG Tablet 10 MG PO (08:13)
[2017-05-03] MEDS: Losartan Potassium 100 MG Tablet PO (08:14)
[2017-05-03] MEDS: Multivitamins,Therapeutic Tablet 1 TABLET PO (08:14)
[2017-05-03] MEDS: Famotidine 20 MG Tablet PO (08:14)
[2017-05-03] MEDS: Aspirin 325 MG Tablet PO ×2 (08:14→17:01)
--- NOTE | 2017-05-03 09:22 | PN.ORTHO_ITS ---
Patient Problems: Active and Suspected Problems (Last Updated 04/09/17 @ 14:08 by Kendrick Godwin) Status post total left knee replacement (Acute) Subjective: No issues overnight. Patient reported having slept well last night and her pain is improving. However the patient remains significantly hypertensive. Hospitalist team is adding some medications to try to adjust that down. Patient has a known history of hypertension at this time. Orthopedically patient continues to do well. Vital signs otherwise remained stable with heart rate in the 70s and 80s. H&H reviewed and also stable. Patient ambulating well at this point does not really think that she wants to go to inpatient rehab and/or transitional care unit as she does not want to spend any more than a few days away from home. - Physical Exam General: Alert, Oriented x3, Cooperative, No apparent distress Musculoskeletal: - - Distally neurovascular intact. Performed straight leg raise for me and bent her knee to 90? without difficulty. Remains ligamentously stable. No calf pain negative Homans. H&H reviewed and stable. Vital Signs Temp Pulse Resp BP Pulse Ox 97.8 F 73 16 211/88 H 93 05/03/17 08:00 05/03/17 08:00 05/03/17 08:00 05/03/17 08:00 05/03/17 08:00 Oxygen Flow Rate (L/min) 1 Oxygen Delivery Method Room Air Weight: 155 lb 13.869 oz Body Mass Index (BMI) 28.6 Intake and Output for Last 24 Hours 05/01/17 05/02/17 05/03/17 23:59 23:59 23:59 Intake Total 3703 / 3703 2858 / 2858 1600 / 1600 Balance 3703 / 3703 2858 / 2858 1600 / 1600 Laboratory Tests Past 24 Hrs 05/03/17 05/03/17 05:27 05:27 WBC 13.5 H RBC 4.06 L Hgb 12.1 Hct 36.5 L MCV 89.9 MCH 29.8 MCHC 33.2 RDW 12.8 RDW Differential 41.9 Plt Count 230 MPV 9.9 Sodium 140 Potassium 4.3 Chloride 107 Carbon Dioxide 27.0 Anion Gap 6 BUN 16 Creatinine 0.83 Estim Creat Clear Calc 42.83 Est GFR (MDRD) Af Amer 86 Est GFR (MDRD) Non-Af 71 BUN/Creatinine Ratio 19.3 Glucose 97 Calcium 9.3 Medical Necessity - Tobacco Use Smoking Status: Never smoker Assessment/Plan Active and Suspected Problems (Last Updated 04/09/17 @ 14:08 by Kendrick Godwin) Status post total left knee replacement (Acute) Assessment: Postop day 2 status post left total knee arthroplasty doing well. Uncontrolled hypertension. Plan: At this point time orthopedically the patient is stable for discharge to home or to the transitional care unit if she still meets criteria. I spoken with the hospitalist team and they are still trying to get her hypertension under control. I do not think the patient is clinically appropriate for discharge based on her hypertension. All of her discharge instructions have been completed from an orthopedic standpoint and medications on the chart in anticipation of her going to the transitional care unit. I have spoke with the hospitalist team about adding what other additional medications may be required upon discharge. I will be going to [facility] for a course later today so I will not be available tomorrow. However I will let my partner know that if there is an orthopedic issue she will be able to handle. Otherwise really discharge will be completed from a medical standpoint. There is any issues please contact me.
--- NOTE | 2017-05-03 09:23 | PCM.DC.ORTHO ---
Discharge Activity: Return to Normal Activity, May not drive while taking narcotic pain medications., May Shower, Use Walker May shower in (days): 1 May resume sexual activity in: No Restrictions Ice area for (Minutes): 20 Weight Bearing Status: Weight bearing as tolerated Keep extremity elevated above heart level: Left Leg Call your doctor if your incision/area has: Continuous Slow Oozing, Sudden Increased Bleeding, Increased Pain/ Swelling, Increased Redness, Foul Smelling Discharge, Swelling at the incision site Call your doctor if you observe: Fever of 101 or Higher, Coldness, Increased Pain, Numbness or Tingling, Change in Color, Inability to urinate, Inability to have a bowel movement, Using more than one pad per hour, Shortness of breath, Dizziness, Fainting spells, Swelling in the ankles, Chest pain, Prolonged hiccoughing, Increased palpitations (irregular heartbeat), Calf discomfort, Uncontrolled pain Suture Line Care: Avoid Pulling/Pushing, Avoid Pinching/Bending Change Dressing in (Days):: 5 Remove Dressing in (days):: 5 Cleanse incision/area with: Soap & Water Additional Dressing/Incision Instructions:: Dressing remains in place 5-7 days total from date of operation. If there is signs of blister formation due to tension around the dressing edges the dressing can be removed early. Apply simple bacitracin to the wound sites. Patient may shower at any time. Do not submerge wound. Allergies/Adverse Reactions: Allergies adhesive tape Allergy (Verified 04/24/17 11:13) Other BLISTERS valsartan Allergy (Verified 04/24/17 11:13) Rash amlodipine Adverse Reaction (Verified 04/24/17 11:13) Other DIZZY, SHAKES enalaprilat [From Vasotec] Adverse Reaction (Verified 04/24/17 11:13) Other DRY COUGH minoxidil Adverse Reaction (Verified 04/24/17 11:13) Other SWELLING ANKLES, HANDS SHAKE risedronate sodium [From Actonel] Adverse Reaction (Verified 04/24/17 11:13) Other Medications to take at Discharge cholecalciferol (vitamin D3) 50,000 unit capsule 50,000 unit PO MONTHLY cap 04/09/17 clonidine HCl 0.2 mg tablet 0.2 mg PO TID 04/09/17 dexlansoprazole 60 mg capsule,biphase delayed release 60 mg PO PRN PRN 04/09/17 losartan 100 mg tablet 100 mg PO ONCE tab 04/09/17 pitavastatin calcium 2 mg tablet 2 mg PO ONCE tab 04/09/17 Multivitamin [Daily Multiple Vitamin] 1 each PO DAILY 04/24/17 Paroxetine HCl [Paxil] 20 mg PO DAILY 04/24/17 Aspirin E.C. [Ecotrin] 325 mg PO BID #30 tab 05/03/17 Docusate Sodium [Colace] 100 mg PO BID PRN PRN #10 cap 05/03/17 Famotidine [Pepcid] 20 mg PO BID #30 tab 05/03/17 Oxycodone HCl/Acetaminophen [Percocet 5/325] 1 - 2 tab PO Q4H PRN PRN #60 tab 05/03/17 proMETHazine tablet [Phenergan] 25 mg PO Q4H PRN PRN #10 tab 05/03/17 The following prescriptions were given: Oxycodone HCl/Acetaminophen [Percocet 5/325] 1 - 2 tab PO Q4H PRN PRN #60 tab PRN Reason: Pain proMETHazine tablet [Phenergan] 25 mg PO Q4H PRN PRN #10 tab PRN Reason: Nausea Docusate Sodium [Colace] 100 mg PO BID PRN PRN #10 cap PRN Reason: Constipation Aspirin E.C. [Ecotrin] 325 mg PO BID #30 tab Famotidine [Pepcid] 20 mg PO BID #30 tab Primary Care Physician: Brandon March Chi, MD [Primary Care Provider] - Please Follow Up With: Luan Burns DO When: call [facility] for appt for 2 weeks Proposed Discharge Date: 05/04/17
--- NOTE | 2017-05-03 09:35 | PCM.PROGNOTE ---
Patient Problems: Active and Suspected Problems (Last Updated 04/09/17 @ 14:08 by Kendrick Godwin) Status post total left knee replacement (Acute) Subjective: Chief complaint: Follow-up after consultation for uncontrolled hypertension and postoperative medical management. Patient seen and examined. No acute events overnight. Her left knee pain is manageable with current pain medication regimen, it has been around 4-5 out of 10 in severity. She denied headache, vision change. No chest pain or shortness of breath. Denied dizziness or lightheadedness. Her blood pressure is highly elevated, other vital signs are stable. - Physical Exam General: Alert, Oriented x3, Cooperative, No apparent distress HEENT: Atraumatic, PERRLA, EOMI Oral: Moist Mucosa, No Gingival or Mucosal Lesions/ Ulcerations Neck: Supple, No JVD, Negative Carotid Bruits, Trachea Midline, Thyroid Normal Size and Texture Lungs: Clear to auscultation, Normal air movement, No rhonchi, No wheeze, No rales Cardiovascular: Regular rate, Regular Rhythm, Normal S1, Normal S2, PMI Normal Abdomen: Bowel Sounds Present, Soft, Non Tender, Non-Distended, No Hepato-splenomegaly Extremities: No clubbing, No cyanosis, No edema Skin: No rashes, No breakdown Lymphatic: No Cervical, Supraclavicular, or Inguinal Adenopathy Neurological: Cranial nerves II-XII grossly intact, Motor Exam 5/5 strength throughout Psych/Mental Status: Normal Affect, Appropriate, Alert and oriented to time, place, person, mood and affect Vital Signs Temp Pulse Resp BP Pulse Ox 97.8 F 73 16 211/88 H 93 05/03/17 08:00 05/03/17 08:00 05/03/17 08:00 05/03/17 08:00 05/03/17 08:00 Oxygen Flow Rate (L/min) 1 Oxygen Delivery Method Room Air Weight: 155 lb 13.869 oz Body Mass Index (BMI) 28.6 Intake and Output for Last 24 Hours 05/01/17 05/02/17 05/03/17 23:59 23:59 23:59 Intake Total 3703 / 3703 2858 / 2858 1600 / 1600 Balance 3703 / 3703 2858 / 2858 1600 / 1600 Laboratory Tests Past 24 Hrs 05/03/17 05/03/17 05:27 05:27 WBC 13.5 H RBC 4.06 L Hgb 12.1 Hct 36.5 L MCV 89.9 MCH 29.8 MCHC 33.2 RDW 12.8 RDW Differential 41.9 Plt Count 230 MPV 9.9 Sodium 140 Potassium 4.3 Chloride 107 Carbon Dioxide 27.0 Anion Gap 6 BUN 16 Creatinine 0.83 Estim Creat Clear Calc 42.83 Est GFR (MDRD) Af Amer 86 Est GFR (MDRD) Non-Af 71 BUN/Creatinine Ratio 19.3 Glucose 97 Calcium 9.3 Medical Necessity - Tobacco Use Smoking Status: Never smoker Assessment/Plan Active and Suspected Problems (Last Updated 04/09/17 @ 14:08 by Kendrick Godwin) Status post total left knee replacement (Acute) This is a 76 years old female patient admitted for elective left total knee replacement for left knee osteoarthritis and I am seeing this patient for postoperative medical management and uncontrolled hypertension. #1 status post left total knee replacement: Postoperative day 2, this was done for left knee osteoarthritis. She is on IV morphine, OxyContin and OxyIR as needed for pain. Her pain is manageable at this time. Orthopedic surgery is managing. #2 uncontrolled hypertension: Blood pressure still uncontrolled, has been up to 220 systolic. She is on clonidine 3 times daily, losartan daily in addition to IV hydralazine and IV Vasotec as needed. She had workup for possible secondary hypertension with bilateral renal Doppler as well as MRI of the abdomen that revealed no evidence of renal artery stenosis. She has been following up with Dr. Jacobo and Dr. Mixon as mentioned above. She mentioned that she was started on Norvasc in February, but she developed side effects including dizziness and shakiness and was discontinued. Plan: Continue clonidine and losartan, start hydralazine 3 times daily. #3 DVT prophylaxis: SCDs, she is on aspirin full dose twice daily. This note was generated with [employer] dictation software. It may contain incorrect words, spelling, and punctuation that were not noted in checking the note before signing. Code Visit Inpatient E&M: 73455 Subs Hosp L2
[2017-05-03] MEDS: hydrALAZINE 25 MG Tablet PO ×2 (10:35→22:00)
[2017-05-03] MEDS: oxyCODONE CR 15 MG Tablet PO ×2 (10:35→22:03)
[2017-05-03] MEDS: 0.9% NaCl Peripheral Flush Adult/Peds IV (11:58)
[2017-05-03] MEDS: Ondansetron 4 MG/2 ML Vial IV (11:58)
[2017-05-03] MEDS: Enalaprilat 1.25 MG/ML Vial IV (12:17)
[2017-05-04 03:00] VITALS: BP 168/93; PULSE 71; PULSE 79; RESP 16; TEMP 36.9; O2SAT 94
[2017-05-04 05:16] VITALS: BP 168/93; PULSE 79
[2017-05-04] MEDS: hydrALAZINE 25 MG Tablet PO ×2 (05:16→13:28)
[2017-05-04] MEDS: Acetaminophen 500 MG Tablet 1000 MG PO ×2 (05:17→13:28)
[2017-05-04] MEDS: cloNIDine HCl 0.2 MG Tablet PO ×2 (05:20→13:28)
[2017-05-04] MEDS: Enalaprilat 1.25 MG/ML Vial IV (05:27)
[2017-05-04 06:06] LABS: Hematocrit 37.8 % (37-47); Hemoglobin 12.5 g/dl (12.0-15.0); Mean Corp Hgb Conc 33.1 g/gl (32-36); Mean Corpuscular Volume 90.9 fL (81-99); Mean Platelet Vol. 9.9 fl (6.2-12.0); Platelet Count 272 K/mm3 (150-450); RBC Distribution Width CV 13.1 % (11.6-14.6); RBC Distribution Width SD 43.1 fl (35.1-43.9); Red Blood Count 4.16 M/mm3 (4.2-5.4); White Blood Count 10.4 K/mm3 (4.4-11.0)
[2017-05-04 06:11] LABS: Scan Indicated on CBC? Y/N NO
[2017-05-04 06:22] LABS: Anion Gap 8 (5-15); BUN 14 mg/dL (7-18); BUN/Creat Ratio 16.5 RATIO (10-20); Calcium,Total 8.9 mg/dL (8.5-10.1); Chloride 110 mmol/L (98-107); Creatinine, Serum 0.85 mg/dL (0.55-1.02); EST Glomerular Filtration Rate 69 mL/min (>60); Est Glom Filt Rate - Afr Amer 83 mL/min (>60); Estimated Creatinine Clearance 41.82 ml/min; Glucose 79 mg/dL (74-106); Potassium 4.2 mmol/L (3.5-5.1); Sodium Level 141 mmol/L (136-145)
[2017-05-04 07:26] LABS: Bedside Glucose 94 mg/dL (70-110)
[2017-05-04] MEDS: oxyCODONE 5 MG Tablet 10 MG PO (08:13)
[2017-05-04] MEDS: Losartan Potassium 100 MG Tablet PO (08:14)
[2017-05-04] MEDS: Famotidine 20 MG Tablet PO (08:14)
[2017-05-04] MEDS: Senna/Docusate Sodium 1 Tablet 2 TABLET PO (08:14)
[2017-05-04] MEDS: Aspirin 325 MG Tablet PO (08:14)
[2017-05-04 08:17] VITALS: BP 142/68; PULSE 70; RESP 16; TEMP 36.3; O2SAT 94
--- NOTE | 2017-05-04 08:49 | PN_ITS ---
Patient Problems: Active and Suspected Problems (Last Updated 04/09/17 @ 14:08 by Kendrick Godwin) Status post total left knee replacement (Acute) Subjective: Chief complaint: Follow-up after consultation for uncontrolled hypertension and postoperative medical management. Patient seen and examined. No acute events overnight. She remained asymptomatic, no complaints. Left knee pain is manageable, she has been doing well with physical therapy. Blood pressure started to improve. Over last 24 hours, she received 1 dose of IV Vasotec yesterday afternoon and another dose of IV Vasotec this morning. Blood pressure readings has been around 160 systolic. Other vital signs are stable, afebrile. - Physical Exam General: Alert, Oriented x3, Cooperative, No apparent distress HEENT: Atraumatic, PERRLA, EOMI Oral: Moist Mucosa, No Gingival or Mucosal Lesions/ Ulcerations Neck: Supple, No JVD, Negative Carotid Bruits, Trachea Midline, Thyroid Normal Size and Texture Lungs: Clear to auscultation, No rhonchi, No wheeze, No rales, Diminished Cardiovascular: Regular rate, Regular Rhythm, Normal S1, Normal S2, PMI Normal Abdomen: Bowel Sounds Present, Soft, Non Tender, Non-Distended, No Hepato- splenomegaly Extremities: No clubbing, No cyanosis, No edema Skin: No rashes, No breakdown Lymphatic: No Cervical, Supraclavicular, or Inguinal Adenopathy Neurological: Cranial nerves II-XII grossly intact, Neuro grossly intact Psych/Mental Status: Normal Affect, Appropriate Vital Signs Temp Pulse Resp BP Pulse Ox 97.3 F L 70 16 142/68 H 94 05/04/17 08:17 05/04/17 08:17 05/04/17 08:17 05/04/17 08:17 05/04/17 08:17 Oxygen Flow Rate (L/min) 1 Oxygen Delivery Method Room Air Weight: 155 lb 13.869 oz Body Mass Index (BMI) 28.6 Intake and Output for Last 24 Hours 05/02/17 05/03/17 05/04/17 23:59 23:59 23:59 Intake Total 2858 / 2858 2450 / 2450 Balance 2858 / 2858 2450 / 2450 Laboratory Tests Past 24 Hrs 05/04/17 05/04/17 05:32 05:32 WBC 10.4 RBC 4.16 L Hgb 12.5 Hct 37.8 MCV 90.9 MCH 30.0 MCHC 33.1 RDW 13.1 RDW Differential 43.1 Plt Count 272 MPV 9.9 Sodium 141 Potassium 4.2 Chloride 110 H Carbon Dioxide 23.0 Anion Gap 8 BUN 14 Creatinine 0.85 Estim Creat Clear Calc 41.82 Est GFR (MDRD) Af Amer 83 Est GFR (MDRD) Non-Af 69 BUN/Creatinine Ratio 16.5 Glucose 79 Calcium 8.9 POC Glucose 05/04/17 06:56 POC Glucose 94 Medical Necessity - Tobacco Use Smoking Status: Never smoker Assessment/Plan Active and Suspected Problems (Last Updated 04/09/17 @ 14:08 by Kendrick Godwin) Status post total left knee replacement (Acute) This is a 76 years old female patient admitted for elective left total knee replacement for left knee osteoarthritis and I am seeing this patient for postoperative medical management and uncontrolled hypertension. #1 status post left total knee replacement: Postoperative day 3, this was done for left knee osteoarthritis. She is on IV morphine, OxyContin and OxyIR as needed for pain. Her pain is manageable at this time. She has been afebrile, white blood cell count is back to normal. Repeat CBC and BMP from today was unremarkable. Orthopedic surgery is managing. From a medical standpoint, patient can be discharged, blood pressure started to improve and she will be started on hydralazine 3 times daily, continue losartan and clonidine. #2 uncontrolled hypertension: After started on hydralazine yesterday, blood pressure start to improve and she has been getting less as needed IV medications to control blood pressure. At this time, she is on clonidine, losartan and hydralazine. Blood pressure has been around 160 systolic with couple of high readings. She remained without symptoms. Plan: DC home on losartan same dose, clonidine same dose, hydralazine 25 mg p.o. 3 times daily, recommend to check blood pressure at least twice a day, follow-up with PCP this coming week. #3 DVT prophylaxis: SCDs, she is on aspirin full dose twice daily. This note was generated with [employer] software. It may contain incorrect words, spelling, and punctuation that were not noted in checking the note before signing. Code Visit Inpatient E&M: 31035 Subs Hosp L2
[2017-05-04] MEDS: oxyCODONE CR 15 MG Tablet PO (10:06)
--- NOTE | 2017-05-04 10:38 | CASEMGMT ---
Social Work Note Face to face with the pt to discuss discharge planning. Pt states that she is doing well enough to go home. Would like outpatient therapy setup at [facility]. Requests a walker as well. Inform that Dr. Burns is not available and she could get a script from him when he returns. Confirm that she does have a walker available, which she will use until able to obtain her own. RN BEBO, Alondra Del Valle, updated and to coordinate outpatient therapy and DME. Plan: Outpatient therapy at [facility]. Sarita Peters, [employer] OPERATOR, ENTRY LEVEL
[2017-05-04 11:54] VITALS: BP 195/91; PULSE 82; RESP 16; TEMP 36.6; O2SAT 92
[2017-05-04 13:27] VITALS: BP 158/82
[2017-05-04 13:28] VITALS: PULSE 87
[2017-05-04] MEDS: Multivitamins,Therapeutic Tablet 1 TABLET PO (13:28)
--- NOTE | 2017-05-08 09:57 | PCM.DC.BLA ---
Discharge Summary Date of Admission: 05/01/17 Date of Discharge: 05/04/17 Summary: 76-year-old female who was admitted to the floor status post left total knee arthroplasty. Patient has a history of hypertension and developed symptoms of really uncontrolled hypertension which was initially thought to be some pain issues so I consult the medicine team. Hospitalist team evaluated the patient maintained her blood pressure in a more stable fashion by altering medications. Patient otherwise tolerated regular diet was amatory physical therapy pain was controlled with p.o. pain medication and was felt safe to discharge home to begin outpatient physical therapy. Assessment: After orthopedics status post left total knee arthroplasty for osteoarthritis. Uncontrolled hypertension. Plan: At this point time patient will continue with DVT prophylaxis to include BETTIE hose in 325 p.o. twice daily of aspirin with GI prophylaxis. Patient is weightbearing as tolerated and encouraged encouraged to be up and moving as much as possible. Patient will start outpatient physical therapy. Medications have been altered by the medicine team to aid with improvement of her hypertension control and the patient has been told to follow-up with her PCP in a few days in order to monitor her blood pressure at this point time. Patient will follow with me in 2 weeks for a wound check. Any major issues please contact me.
== END 2017-05-04 13:36 | disposition home or self-care (01) | DRG 470 ==
PROVIDERS: Admitting Provider Orthopaedic Surgery; Family Provider Family Medicine Geriatric Medicine; PCP Family Medicine Geriatric Medicine; Visit Provider Orthopaedic Surgery
PROC: 0SRD0J9 Replacement of Left Knee Joint with Synthetic Substitute, Cemented, Open Approach (ICD-10-PCS; CPT 27447; principal; 2017-05-01 06:50)
DX: M17.12 Unilateral primary osteoarthritis, left knee (principal); I10 Essential (primary) hypertension; M23.92 Unspecified internal derangement of left knee; Z96.651 Presence of right artificial knee joint
CPT/HCPCS: 36415; 73560; 80048; 82962; 85027; 87081; 88305; 88311; 97110; 97116; 97162; 97165; 97530; 97535; J7120; A4216; J2405

== ENCOUNTER → 2017-06-18 09:19 | Outpatient (CLI) | payer MEDICARE, OTHER, SELFPAY ==
--- NOTE | 2017-06-18 09:22 | RAD_ITS ---
STUDY: X-RAY - LEFT KNEE REASON FOR EXAM: Surgery follow-up. TECHNIQUE: 4 view(s) of the knee. COMPARISON: Radiographs 05/01/2017. FINDINGS: There is a left total knee arthroplasty without evidence of complication. There is a joint effusion. RAD/Knee 4 or More Views IMPRESSION: Joint effusion. No demonstrated abnormality of the left total knee arthroplasty. Electronically Signed: Marcelino Braxton MD at 10:32 EDT Tel , Service support ,
[2017-06-18 15:37] LABS: Albumin, Serum 3.6 g/dL (3.2-5.0); BUN 18 mg/dL (7-18); BUN/Creat Ratio 16.1 RATIO (10-20); Calcium,Total 9.8 mg/dL (8.5-10.1); Chloride 106 mmol/L (98-107); Creatinine, Serum 1.12 mg/dL (0.55-1.02); EST Glomerular Filtration Rate 50 mL/min (>60); Est Glom Filt Rate - Afr Amer 61 mL/min (>60); Glucose 67 mg/dL (74-106); Magnesium 2.1 mg/dL (1.6-2.6); Sodium Level 141 mmol/L (136-145)
== END ==
LOC: HPRAD 09:21 → LAB 13:32
PROVIDERS: Family Provider Family Medicine Geriatric Medicine; PCP Family Medicine Geriatric Medicine; Visit Provider Orthopaedic Surgery
DX: I10 Essential (primary) hypertension (principal); M17.12 Unilateral primary osteoarthritis, left knee
CPT/HCPCS: 36415; 73564; 80069; 83735

== ENCOUNTER 2017-06-27 11:00 | Outpatient (RCR) | payer MEDICARE, OTHER, SELFPAY ==
--- NOTE | 2017-05-22 08:57 | HP.PTEVAL_ITS ---
Patient's Visit Information JANIA SPRAGUE is a 77 year old F referred to Physical Therapy by DO ORA Aviles with a diagnosis of L TKA. Date of Evaluation: 05/17/17 Physical Therapist: Venkat Denis - Visit Plan Frequency: 2x /Week Duration: 4 Weeks Plan: Start with ROM towards end ranges. Progress to ligth quad and HS activation, progressing to CKC/functional exercises. May use ice/vaso of modalities. Instruct in walking progression routine and proper gait techniques. - Subjective Subjective: Pt. is here today for her initial evaluation with diagnosis of L total knee arthroplasty. DOS: 05/01. Pt. reports staying in hospital for a few days due to blood clotting, no issues currently. Pt. arrives without device this date. She reports I am feeling pretty good. Pt. reports having 3/10 pain currently. Pt. reports walking throughout home, she plans on going to local track next week to stary walking routine. Pt. has slight lateral numbness, excepted. Pt. reports being compliant with icing and with exercises at home. Pt. is hopeful to reduce symptoms, improve strength and get back to walking routine without issues. - Pain L knee Pain Intensity (Out of 10): 5 Pain Intensity Range: 8 Comment: achey - Objective POSTURE: Pt has normal wt. shift in stance. Pt. lacks TKE on L knee in stance. Pt. is able to stand without AD. PALPATION: Pt. has normal healing incision, no signs of infection. Negative homans sign. Pt. has increased edema on L side compared to R: (RLE- 47cm, 45.5 cm, 41cm. LLE- 50cm, 47cm, 42cm). NERUOLOGICAL : Pt. has normal sensation to light and sharp touch, slight decrease at L lateral knee, expected. Pt. has 2+ achilles bilaterally, 1+ patellar on R side. Pt. is able to rise on heels and toes without visible weakness, slight assistance from balance aide. ROM: R knee- 0-0-128deg. L knee 0-6-110deg. Pt. has normal hip ROM bilaterally. Tight HS noted bilaterally. MMT: RLE- ankle 5/ 5 throughout; knee 5/5 throughout; hip- flexion 4+/5, abd 4/5, ext 4+/5. LLE- ankle 5/5 throughout; knee- ext 3+/5 (no overpressure tested), flexion 4/5; hip - flexion 3+/5, abd 3+/5, ext 3+/5. GAIT: Pt. ambulates with no AD. Pt. lacks L TKE during stance phase, and lacks proper knee flexion during swing phase. Pt. has increased L trunk lean during L stance phase. STAIRS: Pt. negotiates with step to pattern with use of B HR. - Goals Goal 1:: Pt. to be I with HEP. Goal Time Frame: 4-6 Weeks Goal 2:: Pt. to have increased L knee ROM to atleast 0-0-120deg allowing for increase tolerance to all functional mobility. Goal Time Frame: 4-6 Weeks Goal 3:: Pt. to have increased LLE strength by 1/2 grade of all effected musculature allowing for increased stability with all functional mobility. Goal Time Frame: 4-6 Weeks Goal 4:: Pt. to have 0-2/10 pain with ambulating unlimited distances with normalized gait pattern. Goal Time Frame: 4-6 Weeks Goal 5:: Pt. to negotiate steps with reciprocal pattern with 1 HR with 0-2/10 pain in L knee. Goal Time Frame: 4-6 Weeks - Rehabilitation Potential Physical Therapy Diagnosis: Pt. has signs and symptoms consistent with L TKA. Pt. has subsequent hypomobility, pain, weakness and difficulty with gait. Pt. would benefit from PT to address above limitations and progress back to prior level of function. Rehabilitation Potential: Excellent - Anticipated Interventions Patient/Client Instruction: Educate patient on: Condition, Plan of Care, Risk Factors, Benefits of Fitness Program For the Purpose of:: To improve decision making, To facilitate caregiver knowledge, To improve self management, To prevent re-injury, To improve ability to perform tasks related to life management, To improve tolerance to ADL's Therapeutic Exercise to Include: Strength training, Power training, Postural training, Flexibilty training, Gait and locomotor training, Passive ROM, Active ROM For the Purpose of:: To decrease pain, To increase ROM, To improve nutrient delivery to tissue, To increase oxygenation perfusion, To improve muscle performance and motor function, To improve ability to perform ADL's, To increase tolerance to activity/condition/position, To decrease level of supervision to perform tasks, To improve ability of physical actions for home/ community/work/leisure, To decrease soft tissue restriction, To increase flexibility/ROM, To improve endurance, To improve balance Manual Therapy Techniques to Include: Massage, Passive ROM, Soft tissue mobilization For the Purpose of:: To decrease pain, To decrease swelling/inflammation, To increase ROM, To improve nutrient delivery to tissue, To increase oxygenation perfusion, To improve muscle performance and motor function IF ES: Yes Cryotherapy (ice pack, ice massage): Yes Vasopneumatic device: Yes For the Purpose of:: To decrease pain, To decrease swelling/inflammation, To increase ROM Thank you for the opportunity to evaluate your patient. For Medicare and Medicare HMO plans, please review the plan of care and approve it. It will need to be FAXED BACK to us at [phone] for Medicare purposes. Please let me know if there are questions or concerns regarding this plan of care. Physician Signature: Date:
--- NOTE | 2017-05-25 11:41 | HP.PTEVAL ---
Patient's Visit Information JANIA SPRAGUE is a 77 year old F referred to Physical Therapy by Luan Burns DO with a diagnosis of L TKA. Date of Evaluation: 05/17/17 Physical Therapist: Venkat Denis - Visit Plan Frequency: 2x /Week Duration: 4 Weeks Plan: Start with ROM towards end ranges. Progress to ligth quad and HS activation, progressing to CKC/functional exercises. May use ice/vaso of modalities. Instruct in walking progression routine and proper gait techniques. - Subjective Subjective: Pt. is here today for her initial evaluation with diagnosis of L total knee arthroplasty. DOS: 05/01. Pt. reports staying in hospital for a few days due to elevated blood pressure. Pt. is seeking out further physician consulting for HTN treatment. Pt. arrives without device this date. She reports I am feeling pretty good. Pt. reports having 3/10 pain currently. Pt. reports walking throughout home, she plans on going to local track next week to stary walking routine. Pt. has slight lateral numbness, excepted. Pt. reports being compliant with icing and with exercises at home. Pt. is hopeful to reduce symptoms, improve strength and get back to walking routine without issues. - Pain L knee Pain Intensity (Out of 10): 4 Pain Intensity Range: 8 Comment: achey - Objective POSTURE: Pt has normal wt. shift in stance. Pt. lacks TKE on L knee in stance. Pt. is able to stand without AD. PALPATION: Pt. has normal healing incision, no signs of infection. Negative homans sign. Pt. has increased edema on L side compared to R: (RLE- 47cm, 45.5 cm, 41cm. LLE- 50cm, 47cm, 42cm). NERUOLOGICAL: Pt. has normal sensation to light and sharp touch, slight decrease at L lateral knee, expected. Pt. has 2+ achilles bilaterally, 1+ patellar on R side. Pt. is able to rise on heels and toes without visible weakness, slight assistance from balance aide. ROM: R knee- 0-0-128deg. L knee 0-6-110deg. Pt. has normal hip ROM bilaterally. Tight HS noted bilaterally. MMT: RLE- ankle 5/5 throughout; knee 5/5 throughout; hip- flexion 4+/5, abd 4/5, ext 4+/5. LLE- ankle 5/5 throughout; knee- ext 3+/5 (no overpressure tested), flexion 4/5; hip- flexion 3+/5, abd 3+/5, ext 3+/5. GAIT: Pt. ambulates with no AD. Pt. lacks L TKE during stance phase, and lacks proper knee flexion during swing phase. Pt. has increased L trunk lean during L stance phase. STAIRS: Pt. negotiates with step to pattern with use of B HR. - Goals Goal 1:: Pt. to be I with HEP. Goal Time Frame: 4-6 Weeks Goal 2:: Pt. to have increased L knee ROM to atleast 0-0-120deg allowing for increase tolerance to all functional mobility. Goal Time Frame: 4-6 Weeks Goal 3:: Pt. to have increased LLE strength by 1/2 grade of all effected musculature allowing for increased stability with all functional mobility. Goal Time Frame: 4-6 Weeks Goal 4:: Pt. to have 0-2/10 pain with ambulating unlimited distances with normalized gait pattern. Goal Time Frame: 4-6 Weeks Goal 5:: Pt. to negotiate steps with reciprocal pattern with 1 HR with 0-2/10 pain in L knee. Goal Time Frame: 4-6 Weeks - Rehabilitation Potential Physical Therapy Diagnosis: Pt. has signs and symptoms consistent with L TKA. Pt. has subsequent hypomobility, pain, weakness and difficulty with gait. Pt. would benefit from PT to address above limitations and progress back to prior level of function. Rehabilitation Potential: Excellent - Anticipated Interventions Patient/Client Instruction: Educate patient on: Condition, Plan of Care, Risk Factors, Benefits of Fitness Program For the Purpose of:: To improve decision making, To facilitate caregiver knowledge, To improve self management, To prevent re-injury, To improve ability to perform tasks related to life management, To improve tolerance to ADL's Therapeutic Exercise to Include: Strength training, Power training, Postural training, Flexibilty training, Gait and locomotor training, Passive ROM, Active ROM For the Purpose of:: To decrease pain, To increase ROM, To improve nutrient delivery to tissue, To increase oxygenation perfusion, To improve muscle performance and motor function, To improve ability to perform ADL's, To increase tolerance to activity/condition/position, To decrease level of supervision to perform tasks, To improve ability of physical actions for home/community/work/leisure, To decrease soft tissue restriction, To increase flexibility/ROM, To improve endurance, To improve balance Manual Therapy Techniques to Include: Massage, Passive ROM, Soft tissue mobilization For the Purpose of:: To decrease pain, To decrease swelling/inflammation, To increase ROM, To improve nutrient delivery to tissue, To increase oxygenation perfusion, To improve muscle performance and motor function IF ES: Yes Cryotherapy (ice pack, ice massage): Yes Vasopneumatic device: Yes For the Purpose of:: To decrease pain, To decrease swelling/inflammation, To increase ROM Thank you for the opportunity to evaluate your patient. For Medicare and Medicare HMO plans, please review the plan of care and approve it. It will need to be FAXED BACK to us at [phone] for Medicare purposes. Please let me know if there are questions or concerns regarding this plan of care. Physician Signature: Date:
--- NOTE | 2017-05-25 11:44 | HP.PTEVAL_ITS ---
Patient's Visit Information JANIA SPRAGUE is a 77 year old F referred to Physical Therapy by Luan Burns DO with a diagnosis of L TKA. Date of Evaluation: 05/17/17 Physical Therapist: Venkat Denis - Visit Plan Frequency: 2x /Week Duration: 4 Weeks Plan: Start with ROM towards end ranges. Progress to ligth quad and HS activation, progressing to CKC/functional exercises. May use ice/vaso of modalities. Instruct in walking progression routine and proper gait techniques. - Subjective Subjective: Pt. is here today for her initial evaluation with diagnosis of L total knee arthroplasty. DOS: 05/01. Pt. reports staying in hospital for a few days due to elevated blood pressure. Pt. is seeking out further physician consulting for HTN treatment. Pt. arrives without device this date. She reports I am feeling pretty good. Pt. reports having 3/10 pain currently. Pt. reports walking throughout home, she plans on going to local track next week to stary walking routine. Pt. has slight lateral numbness, excepted. Pt. reports being compliant with icing and with exercises at home. Pt. is hopeful to reduce symptoms, improve strength and get back to walking routine without issues. - Pain L knee Pain Intensity (Out of 10): 4 Pain Intensity Range: 8 Comment: achey - Objective POSTURE: Pt has normal wt. shift in stance. Pt. lacks TKE on L knee in stance. Pt. is able to stand without AD. PALPATION: Pt. has normal healing incision, no signs of infection. Negative homans sign. Pt. has increased edema on L side compared to R: (RLE- 47cm, 45.5 cm, 41cm. LLE- 50cm, 47cm, 42cm). NERUOLOGICAL : Pt. has normal sensation to light and sharp touch, slight decrease at L lateral knee, expected. Pt. has 2+ achilles bilaterally, 1+ patellar on R side. Pt. is able to rise on heels and toes without visible weakness, slight assistance from balance aide. ROM: R knee- 0-0-128deg. L knee 0-6-110deg. Pt. has normal hip ROM bilaterally. Tight HS noted bilaterally. MMT: RLE- ankle 5/ 5 throughout; knee 5/5 throughout; hip- flexion 4+/5, abd 4/5, ext 4+/5. LLE- ankle 5/5 throughout; knee- ext 3+/5 (no overpressure tested), flexion 4/5; hip - flexion 3+/5, abd 3+/5, ext 3+/5. GAIT: Pt. ambulates with no AD. Pt. lacks L TKE during stance phase, and lacks proper knee flexion during swing phase. Pt. has increased L trunk lean during L stance phase. STAIRS: Pt. negotiates with step to pattern with use of B HR. - Goals Goal 1:: Pt. to be I with HEP. Goal Time Frame: 4-6 Weeks Goal 2:: Pt. to have increased L knee ROM to atleast 0-0-120deg allowing for increase tolerance to all functional mobility. Goal Time Frame: 4-6 Weeks Goal 3:: Pt. to have increased LLE strength by 1/2 grade of all effected musculature allowing for increased stability with all functional mobility. Goal Time Frame: 4-6 Weeks Goal 4:: Pt. to have 0-2/10 pain with ambulating unlimited distances with normalized gait pattern. Goal Time Frame: 4-6 Weeks Goal 5:: Pt. to negotiate steps with reciprocal pattern with 1 HR with 0-2/10 pain in L knee. Goal Time Frame: 4-6 Weeks - Rehabilitation Potential Physical Therapy Diagnosis: Pt. has signs and symptoms consistent with L TKA. Pt. has subsequent hypomobility, pain, weakness and difficulty with gait. Pt. would benefit from PT to address above limitations and progress back to prior level of function. Rehabilitation Potential: Excellent - Anticipated Interventions Patient/Client Instruction: Educate patient on: Condition, Plan of Care, Risk Factors, Benefits of Fitness Program For the Purpose of:: To improve decision making, To facilitate caregiver knowledge, To improve self management, To prevent re-injury, To improve ability to perform tasks related to life management, To improve tolerance to ADL's Therapeutic Exercise to Include: Strength training, Power training, Postural training, Flexibilty training, Gait and locomotor training, Passive ROM, Active ROM For the Purpose of:: To decrease pain, To increase ROM, To improve nutrient delivery to tissue, To increase oxygenation perfusion, To improve muscle performance and motor function, To improve ability to perform ADL's, To increase tolerance to activity/condition/position, To decrease level of supervision to perform tasks, To improve ability of physical actions for home/ community/work/leisure, To decrease soft tissue restriction, To increase flexibility/ROM, To improve endurance, To improve balance Manual Therapy Techniques to Include: Massage, Passive ROM, Soft tissue mobilization For the Purpose of:: To decrease pain, To decrease swelling/inflammation, To increase ROM, To improve nutrient delivery to tissue, To increase oxygenation perfusion, To improve muscle performance and motor function IF ES: Yes Cryotherapy (ice pack, ice massage): Yes Vasopneumatic device: Yes For the Purpose of:: To decrease pain, To decrease swelling/inflammation, To increase ROM Thank you for the opportunity to evaluate your patient. For Medicare and Medicare HMO plans, please review the plan of care and approve it. It will need to be FAXED BACK to us at [phone] for Medicare purposes. Please let me know if there are questions or concerns regarding this plan of care. Physician Signature: Date:
--- NOTE | 2017-06-27 12:04 | HP.PTREVAL_ITS ---
Luan Burns, DO, It has been my pleasure to treat JANIA SPRAGUE over the last 8 visits for L TKA. Please see the progress note below for an update on the physical therapy plan of care! Subjective: Pt. reports my knee is doing really well, but everything else hurts. Pt. reports I feel like I am in a fibro flare. Pt. reports being HEP compliant. Pt. reports her L knee is not stopping her from any thing. Objective/Function: ROM: L knee 0-2-122 deg AROM, 0-0-125deg PROM. GAIT: Pt. ambulates without AD. Pt. has slight lack in TKE during L stance phase, but minimal. Pt. reports no pain with ambulation. Pt. has slight lateral lean to L side during L stance phase, but no pain. MMT: LLE- ankle 5/5 throughout; knee- ext 4+/5, flexion 4+/5; hip- flexion 4+/5, abd 4+/5, ext 4+/5. Core strength poor+. STAIRS: Pt. is able to negotiate with 1 HR without issues. Pt. reports no pain with descending, slight soreness with ascending during L stance phase. Pt. is lacking 2deg of AROM of her L knee, but is progressing. Educated pt. on importance of achievign TKE for joint mechanics and life of prothesis. Pt. reports understanding. Plan Plan: PT. is going on vacation for 2 weeks. Pt. is to complete HEP independently during this period. She is to follow up with PT after as needed. I will leave case open for 4-5 weeks, will DC if pt. does not follow up. Goals Goal 1:: Pt. to be I with HEP. Goal Time Frame: 4-6 Weeks Goal Progress: Goal Met Goal 2:: Pt. to have increased L knee ROM to atleast 0-0-120deg allowing for increase tolerance to all functional mobility. Goal Time Frame: 4-6 Weeks Goal Progress: Goal Met Goal 3:: Pt. to have increased LLE strength by 1/2 grade of all effected musculature allowing for increased stability with all functional mobility. Goal Time Frame: 2-4 Weeks Goal Progress: Goal Met Goal 4:: Pt. to have 0-2/10 pain with ambulating unlimited distances with normalized gait pattern. Goal Time Frame: 4-6 Weeks Goal Progress: Goal Met Goal 5:: Pt. to negotiate steps with reciprocal pattern with 1 HR with 0-2/10 pain in L knee. Goal Time Frame: 4-6 Weeks Goal Progress: Goal Met Anticipated Interventions Patient/Client Instruction: Educate patient on: Condition, Plan of Care, Risk Factors, Benefits of Fitness Program For the Purpose of:: To improve decision making, To facilitate caregiver knowledge, To improve self management, To prevent re-injury, To improve ability to perform tasks related to life management, To improve tolerance to ADL's Therapeutic Exercise to Include: Strength training, Power training, Postural training, Flexibilty training, Gait and locomotor training, Passive ROM, Active ROM For the Purpose of:: To decrease pain, To increase ROM, To improve nutrient delivery to tissue, To increase oxygenation perfusion, To improve muscle performance and motor function, To improve ability to perform ADL's, To increase tolerance to activity/condition/position, To decrease level of supervision to perform tasks, To improve ability of physical actions for home/ community/work/leisure, To decrease soft tissue restriction, To increase flexibility/ROM, To improve endurance, To improve balance Manual Therapy Techniques to Include: Massage, Passive ROM, Soft tissue mobilization For the Purpose of:: To decrease pain, To decrease swelling/inflammation, To increase ROM, To improve nutrient delivery to tissue, To increase oxygenation perfusion, To improve muscle performance and motor function IF ES: Yes Cryotherapy (ice pack, ice massage): Yes Vasopneumatic device: Yes For the Purpose of:: To decrease pain, To decrease swelling/inflammation, To increase ROM Please do not hesitate to contact me at [phone] by phone or Fax: if you have questions or concerns regarding this new plan of care! Sincerely, Venkat Denis
--- NOTE | 2017-11-20 13:23 | HP.PT.NRP ---
HP - Discharge Summary (1) - Patient Information JANIA SPRAGUE was seen in my office for initial evaluation on 05/17/17. The following Plan of Care was established for this patient: Initial Frequency: 2x /Week Initial Duration: 4 Weeks - Anticipated Interventions Patient/Client Instruction: Educate patient on: Condition, Plan of Care, Risk Factors, Benefits of Fitness Program For the Purpose of:: To improve decision making, To facilitate caregiver knowledge, To improve self management, To prevent re-injury, To improve ability to perform tasks related to life management, To improve tolerance to ADL's Therapeutic Exercise to Include: Strength training, Power training, Postural training, Flexibilty training, Gait and locomotor training, Passive ROM, Active ROM For the Purpose of:: To decrease pain, To increase ROM, To improve nutrient delivery to tissue, To increase oxygenation perfusion, To improve muscle performance and motor function, To improve ability to perform ADL's, To increase tolerance to activity/condition/position, To decrease level of supervision to perform tasks, To improve ability of physical actions for home/community/work/leisure, To decrease soft tissue restriction, To increase flexibility/ROM, To improve endurance, To improve balance Manual Therapy Techniques to Include: Massage, Passive ROM, Soft tissue mobilization For the Purpose of:: To decrease pain, To decrease swelling/inflammation, To increase ROM, To improve nutrient delivery to tissue, To increase oxygenation perfusion, To improve muscle performance and motor function IF ES: Yes Cryotherapy (ice pack, ice massage): Yes Vasopneumatic device: Yes For the Purpose of:: To decrease pain, To decrease swelling/inflammation, To increase ROM This patient was last seen in our office 06/27/17. Pertinent comments regarding their Physical therapy will appear below: Pt. was seen for her TKA. She progressed with both ROM and strenthening as expected. Pt. at our last visit was doing very well and was to trial exercises on her own. Pt. has not been seen in ~5 months and will be DC from Pt at this point in time. At this point I will be discontinuing this patient from physical therapy. I would be happy to see this patient again in the future if found appropriate by the physician. Thank you! Venkat Denis
== END 2017-06-27 19:00 | disposition home or self-care (01) ==
LOC: PT 11:00
PROVIDERS: Family Provider Family Medicine Geriatric Medicine; PCP Family Medicine Geriatric Medicine; Visit Provider Orthopaedic Surgery
DX: Z96.652 Presence of left artificial knee joint (principal)
CPT/HCPCS: 97110; 97162; 97530

== ENCOUNTER → 2017-07-27 11:27 | Outpatient (CLI) | payer MEDICARE, OTHER, SELFPAY ==
[2017-07-27 12:43] LABS: Hematocrit 43.6 % (37-47); Hemoglobin 14.4 g/dl (12.0-15.0); Mean Corpuscular Hgb 29.4 pg (27.0-32.0); Mean Platelet Vol. 10.2 fl (6.2-12.0); Platelet Count 311 K/mm3 (150-450); RBC Distribution Width CV 12.1 % (11.6-14.6); RBC Distribution Width SD 38.8 fl (35.1-43.9); White Blood Count 8.7 K/mm3 (4.4-11.0)
[2017-07-27 12:49] LABS: Protein, Urine (Random) < 6.0 mg/dL (<11.9); Protein:Creat Ratio 218 mg/g CRE (0-200); Scan Indicated on CBC? Y/N NO
[2017-07-27 13:05] LABS: Albumin, Serum 3.7 g/dL (3.2-5.0); BUN 17 mg/dL (7-18); BUN/Creat Ratio 15.9 RATIO (10-20); Chloride 105 mmol/L (98-107); Creatinine, Serum 1.07 mg/dL (0.55-1.02); EST Glomerular Filtration Rate 53 mL/min (>60); Est Glom Filt Rate - Afr Amer 64 mL/min (>60); Glucose 99 mg/dL (74-106); Magnesium 1.9 mg/dL (1.6-2.6); Phosphorus 2.5 mg/dL (2.5-4.9); Potassium 4.1 mmol/L (3.5-5.1); Sodium Level 138 mmol/L (136-145)
[2017-07-27 13:33] LABS: Vitamin D,25 Hydroxy 32.3 ng/mL (29.95-100.01)
== END ==
PROVIDERS: Family Provider Family Medicine Geriatric Medicine; PCP Family Medicine Geriatric Medicine; Visit Provider Internal Medicine Nephrology
DX: I10 Essential (primary) hypertension (principal); E55.9 Vitamin D deficiency, unspecified
CPT/HCPCS: 36415; 80069; 82306; 82570; 83735; 84156; 85027

== ENCOUNTER → 2017-10-16 14:32 | Outpatient (CLI) | payer MEDICARE, OTHER, SELFPAY ==
[2017-10-16 16:00] LABS: Absolute Lymphocyte Count 3.15 X10^3/ul (0.83-4.51); Absolute Neutrophil Count 4.5 X10^3/uL (2.0-7.7); Basophil# 0.05 X10^3/uL; Basophil% 0.6 % (0-1); Eosinophil# 0.16 X10^3/uL; Eosinophils% 1.9 % (0-5); Hematocrit 41.5 % (37-47); Hemoglobin 13.7 g/dl (12.0-15.0); Lymphocyte # 3.15 X10^3/ul (4.0); Lymphocyte % 36.5 % (19-41); Mean Corpuscular Hgb 29.1 pg (27.0-32.0); Mean Corpuscular Volume 88.3 fL (81-99); Mean Platelet Vol. 10.5 fl (6.2-12.0); Monocyte# 0.75 X10^3/uL; Monocyte% 8.7 % (0-10); Neutrophil # 4.52 X10^3/uL (2.7-7.7); Neutrophil % 52.2 % (47-70); Platelet Count 305 K/mm3 (150-450); RBC Distribution Width CV 12.8 % (11.6-14.6); RBC Distribution Width SD 41.1 fl (35.1-43.9); White Blood Count 8.6 K/mm3 (4.4-11.0)
[2017-10-16 16:10] LABS: POSITIVE COUNT NO; POSITIVE DIFFERENTIAL NO; POSITIVE MORPHOLOGY NO
[2017-10-16 16:23] LABS: ALB/GLOB Ratio 1.1 RATIO (0.9-2.4); AST(SGOT) 27 U/L (15-37); Alanine Aminotransfer ALT/SGPT 24 U/L (13-56); Albumin, Serum 3.6 g/dL (3.2-5.0); Alkaline Phosphatase 71 U/L (45-117); Anion Gap 10 (5-15); BUN 27 mg/dL (7-18); BUN/Creat Ratio 19.4 RATIO (10-20); Chloride 102 mmol/L (98-107); Creatinine, Serum 1.39 mg/dL (0.55-1.02); EST Glomerular Filtration Rate 39 mL/min (>60); Est Glom Filt Rate - Afr Amer 47 mL/min (>60); Globulin 3.2 g/dL (2.2-4.2); Glucose 113 mg/dL (74-106); Potassium 4.1 mmol/L (3.5-5.1); Protein, Total 6.8 g/dL (6.4-8.2); Sodium Level 142 mmol/L (136-145); Thyroid Stim Hormone (TSH) 0.92 uIU/mL (0.358-3.74)
[2017-10-17 08:41] LABS: Vitamin D,25 Hydroxy 25.2 ng/mL (29.95-100.01)
== END ==
PROVIDERS: Family Provider Family Medicine Geriatric Medicine; PCP Family Medicine Geriatric Medicine; Visit Provider Family Medicine Geriatric Medicine
DX: I10 Essential (primary) hypertension (principal); E55.9 Vitamin D deficiency, unspecified
CPT/HCPCS: 36415; 80053; 82306; 84443; 85025

== ENCOUNTER → 2017-10-29 16:17 | Outpatient (CLI) | payer MEDICARE, OTHER, SELFPAY ==
--- NOTE | 2017-10-29 16:20 | CT_ITS ---
STUDY: CT ABDOMEN AND PELVIS WITHOUT CONTRAST REASON FOR EXAM: Female, 77 years old. Hematuria. Right flank pain. RADIATION DOSAGE (If Supplied By Facility): CTDIvol = ( 7.02 ) mGy, DLP = ( 324.61 ) mGycm TECHNIQUE: Transaxial images were obtained from the dome of the diaphragm to the symphysis pubis without oral contrast, and without intravenous contrast. Sagittal and coronal images were reconstructed. Individualized dose optimization techniques were used for this CT. COMPARISON: June 02, 2015. FINDINGS: The visualized lung bases are unremarkable. The visualized portions of the heart are within normal limits. Normal liver. There are surgical clips in the gallbladder fossa consistent with a prior cholecystectomy. Normal spleen. Normal pancreas. Normal bilateral adrenal glands. Normal right kidney. Normal left kidney. There is a small hiatal hernia. Normal small intestine. There are diverticula throughout the sigmoid colon. There is non-visualization of the appendix. There is diffuse atherosclerotic calcification of the abdominal aorta, without a demonstrated aneurysm. Normal inferior vena cava. Normal retroperitoneum. Normal urinary bladder. Normal abdominal wall. There are diffuse degenerative changes of the visualized lumbar spine. There is a grade 2 anterior spondylolisthesis of L5 on S1. CT/Abdomen/Pelvis without Cont IMPRESSION: No acute intra-abdominal process. Atherosclerosis. Colonic diverticulosis. Small hiatal hernia. Electronically Signed: Ruth Benson MD at 16:43 EDT Tel , Service support ,
== END ==
PROVIDERS: Family Provider Family Medicine Geriatric Medicine; PCP Family Medicine Geriatric Medicine; Visit Provider Family Medicine Geriatric Medicine
DX: R31.9 Hematuria, unspecified (principal)
CPT/HCPCS: 74176

== ENCOUNTER → 2017-10-30 14:28 | Outpatient (CLI) | payer MEDICARE, OTHER, SELFPAY ==
--- NOTE | 2017-10-30 14:31 | RAD_ITS ---
STUDY: X-RAY - LEFT KNEE REASON FOR EXAM: Female, 77 years old. 6 months postop. TECHNIQUE: For view(s) of the knee. COMPARISON: June 18, 2017 FINDINGS: There is a total knee arthroplasty in place. The alignment appears grossly stable and anatomic. No suspicious bony lesions are identified. There is a joint effusion that appears to have decreased in size of the prior examination. RAD/Knee 4 or More Views IMPRESSION: Grossly stable total knee arthroplasty. Persistent joint effusion that has decreased in size. Electronically Signed: Ruth Benson MD at 16:46 EDT Tel , Service support ,
== END ==
PROVIDERS: Family Provider Family Medicine Geriatric Medicine; PCP Family Medicine Geriatric Medicine; Visit Provider Orthopaedic Surgery
DX: Z96.652 Presence of left artificial knee joint (principal)
CPT/HCPCS: 73564

== ENCOUNTER → 2017-11-01 13:46 | Outpatient (CLI) | payer MEDICARE, OTHER, SELFPAY ==
--- NOTE | 2017-11-01 13:49 | US_ITS ---
STUDY: ULTRASOUND OF THE FEMALE PELVIS - COMPLETE REASON FOR EXAM: Female, 77 years old. Abnormal bleeding. Prior hysterectomy and oophorectomy. TECHNIQUE: Transvaginal and transabdominal. (Transvaginal imaging, if present, was performed for enhanced visualization of uterus and endometrium, and posterior adnexal structures). COMPARISON: CT abdomen and pelvis 10/29/2017. FINDINGS: Uterus is surgically absent. The ovaries are surgically absent. There is no adnexal mass or cyst. There is no free fluid. Limited endovaginal scanning of the vaginal canal revealed no abnormality. US/Pelvic (Non ) IMPRESSION: No acute process. Electronically Signed: Ap Moon, at 17:46 EDT Tel , Service support ,
--- NOTE | 2017-11-01 13:49 | US_ITS ---
STUDY: ULTRASOUND OF THE FEMALE PELVIS - COMPLETE REASON FOR EXAM: Female, 77 years old. Abnormal bleeding. Prior hysterectomy and oophorectomy. TECHNIQUE: Transvaginal and transabdominal. (Transvaginal imaging, if present, was performed for enhanced visualization of uterus and endometrium, and posterior adnexal structures). COMPARISON: CT abdomen and pelvis 10/29/2017. FINDINGS: Uterus is surgically absent. The ovaries are surgically absent. There is no adnexal mass or cyst. There is no free fluid. Limited endovaginal scanning of the vaginal canal revealed no abnormality. US/Transvaginal Non- IMPRESSION: No acute process. Electronically Signed: Ap Moon, at 17:46 EDT Tel , Service support ,
== END ==
PROVIDERS: Family Provider Family Medicine Geriatric Medicine; PCP Family Medicine Geriatric Medicine; Visit Provider Family Medicine Geriatric Medicine
DX: M79.1 Myalgia (principal)
CPT/HCPCS: 76830; 76856

== ENCOUNTER 2017-11-05 20:50 | Inpatient (IN) | payer MEDICARE, OTHER, SELFPAY ==
[2017-11-05] VITALS (19 sets, daily range): BP systolic 154–198; BP diastolic 77–109; PULSE 68–90; RESP 14–20; TEMP 36.4–37.3; O2SAT 95–100; BMI 27.4
[2017-11-05 21:06] LABS: Bedside Glucose 109 mg/dL (70-110)
--- NOTE | 2017-11-05 21:14 | CT_ITS ---
STUDY: CT BRAIN WITHOUT CONTRAST REASON FOR EXAM: Female, 77 years old. Right-sided weakness. RADIATION DOSAGE (If Supplied By Facility): CTDIvol = ( 44.99 ) mGy, DLP = ( 744.49 ) mGycm TECHNIQUE: Transaxial CT imaging of the brain was performed without administration of intravenous contrast material. Individualized dose optimization techniques were used for this CT. COMPARISON: None. FINDINGS: Normal soft tissue structures. Normal calvarium. There is mild cerebral atrophy with widening of the extra-axial spaces and ventricular dilatation. Normal white matter tracts of the cerebral hemispheres. Normal basal ganglia and thalami. Normal brainstem. Normal cerebellum. There is no intracranial hemorrhage. There are no findings of an acute ischemic infarction. Normal visualized paranasal sinuses. CT/Brain/Head without Contrast IMPRESSION: Mild atrophy. No acute findings. N.B. : The above information has been verbally conveyed by Luli Cantor MD to Jared Corazon on 11/05/2017 21:47:17 (ET). Electronically Signed: Luli Cantor MD at 21:47 EDT Tel , Service support ,
--- NOTE | 2017-11-05 21:14 | EKG12_ITS ---
Test Reason : STROKE Blood Pressure : / mmHG Vent. Rate : 088 BPM Atrial Rate : 088 BPM P-R Int : 186 ms QRS Dur : 074 ms QT Int : 370 ms P-R-T Axes : 022 -33 021 degrees QTc Int : 447 ms Normal sinus rhythm Left axis deviation Moderate voltage criteria for LVH, may be normal variant Abnormal ECG Confirmed by BEATA CALVILLO, BIANCA ([id number]), scientific publications editor NICOLE SANTORO ([id number]) on 11/07/2017 9:30:39 AM Referred By: JENNIE Confirmed By:BIANCA COTA MD
--- NOTE | 2017-11-05 21:25 | RAD_ITS ---
STUDY: X-RAY CHEST REASON FOR EXAM: Female, 77 years old. Right side weakness, loss of extremity control. TECHNIQUE: Upright AP chest. COMPARISON: 11/24/2015. FINDINGS: The lungs are clear and expanded. There is no demonstrated pleural abnormality. Normal size heart. Normal mediastinum and suni. Normal visualized pulmonary arteries. Normal visualized aortic arch and descending thoracic aorta. Normal visualized thoracic spine. Normal visualized ribs, clavicles, and shoulders. There is no demonstrated abnormality of the visualized soft tissue structures of the upper abdomen. RAD/Chest 1 View IMPRESSION: Normal x-ray examination of the chest. Electronically Signed: Luli Cantor MD at 22:00 EDT Tel , Service support ,
[2017-11-05 21:29] LABS: Absolute Lymphocyte Count 4.16 X10^3/ul (0.83-4.51); Absolute Neutrophil Count 4.5 X10^3/uL (2.0-7.7); Basophil# 0.05 X10^3/uL; Basophil% 0.5 % (0-1); Eosinophil# 0.34 X10^3/uL; Eosinophils% 3.4 % (0-5); Hematocrit 41.7 % (37-47); Hemoglobin 13.7 g/dl (12.0-15.0); Lymphocyte # 4.16 X10^3/ul (4.0); Lymphocyte % 41.5 % (19-41); Mean Corp Hgb Conc 32.9 g/gl (32-36); Mean Corpuscular Hgb 29.5 pg (27.0-32.0); Mean Corpuscular Volume 89.7 fL (81-99); Mean Platelet Vol. 9.7 fl (6.2-12.0); Monocyte# 0.94 X10^3/uL; Monocyte% 9.4 % (0-10); Neutrophil # 4.53 X10^3/uL (2.7-7.7); Neutrophil % 45.1 % (47-70); Platelet Count 274 K/mm3 (150-450); RBC Distribution Width CV 13.1 % (11.6-14.6); RBC Distribution Width SD 42.4 fl (35.1-43.9); Red Blood Count 4.65 M/mm3 (4.2-5.4)
[2017-11-05 21:32] LABS: POSITIVE COUNT NO; POSITIVE DIFFERENTIAL NO; POSITIVE MORPHOLOGY NO
[2017-11-05 21:39] LABS: International Normalized Ratio 0.9; Prothrombin Time (Protime)PT. 12.6 SECONDS (11.7-14.9)
[2017-11-05 21:46] LABS: Anion Gap 7 (5-15); BUN 22 mg/dL (7-18); BUN/Creat Ratio 18.6 RATIO (10-20); Calcium,Total 10.5 mg/dL (8.5-10.1); Chloride 104 mmol/L (98-107); Creatinine, Serum 1.18 mg/dL (0.55-1.02); EST Glomerular Filtration Rate 47 mL/min (>60); Est Glom Filt Rate - Afr Amer 57 mL/min (>60); Estimated Creatinine Clearance 31.08 ml/min; Glucose 121 mg/dL (74-106); Potassium 3.6 mmol/L (3.5-5.1); Sodium Level 139 mmol/L (136-145)
--- NOTE | 2017-11-05 22:12 | CT_ITS ---
STUDY: CTA OF THE BRAIN REASON FOR EXAM: Female, 77 years old. Weakness RADIATION DOSAGE (If Supplied By Facility): CTDIvol = ( 15.15 ) mGy, DLP = ( 375.65 ) mGycm TECHNIQUE: CT angiography was performed with a multi-detector CT scanner. Data acquisition was obtained from the skull base through the vertex following intravenous administration of ml of . MIP images were reconstructed from the axial data set. Post-processing of the angiographic images was performed, with multiplanar reformation and 3D reconstruction. Individualized dose optimization techniques were used for this CT. COMPARISON: None. FINDINGS: Normal bilateral petrous carotid arteries. Normal right cavernous carotid artery with a normal supraclinoid bifurcation. Normal left cavernous carotid artery with a normal supraclinoid bifurcation. Normal right A1 segments of the anterior cerebral artery. Normal left A1 segments of the anterior cerebral artery. Normal intact anterior communicating artery (ACOM). Normal bilateral A2 segments of the anterior cerebral arteries. Normal right M1 and M2 segments of the middle cerebral arteries, with a normal M1 bifurcation. Normal left M1 and M2 segments of the middle cerebral arteries, with a normal M1 bifurcation. There is a persistent origin of the right posterior cerebral artery with absence of the posterior communicating artery (PCOM). Normal left posterior communicating artery (PCOM). Normal bilateral vertebral arteries. Normal basilar artery with a normal basilar bifurcation. The visualized bilateral superior cerebellar (SCA) arteries are normal. Bilateral posterior cerebral arteries are small in caliber, greater on the RIGHT. NO focal high-grade stenosis or occlusion is identified. There is no demonstrated aneurysm of the [place]. There is no demonstrated abnormality of the visualized brain. CT/CTA Head W/WO Contrast IMPRESSION: Bilateral posterior cerebral arteries are small in caliber, greater on the RIGHT. NO focal high-grade stenosis or occlusion is identified. There is no demonstrated aneurysm of the [place]. Electronically Signed: José Antonio Rodas MD at 0:24 EDT , Service support ,
[2017-11-05] MEDS: 0.9% Normal Saline 1,000 ML 1000 ML IV (22:34)
--- NOTE | 2017-11-05 22:49 | ED.RN ---
CARMEN CASTILLO RN AND THIS NURSE VERIFIED LOADING DOSE AND ONE HOUR INFUSION OF TPA.
--- NOTE | 2017-11-05 23:06 | ED.RN ---
PT IS ABLE TO LIFT RIGHT LEG UP OFF BED AND WIGGLE FINGER AND MOVE RIGHT HAND. DR. CARVAJAL INFORMED OF SAME.
--- NOTE | 2017-11-05 23:50 | ED.VISSUMM ---
- ER Visit Summary Date of Service: 11/05/17 Chief Complaint: Possible stroke History of Present Illness: The patient is a 77 F who presents with right-sided weakness that began tonight. Patient states she was exercising tonight and finished her exercises around 7 PM. After that, patient states she started feeling some unsteadiness in her right leg with some mild weakness. Patient walked to the car from her house. When the patient got here she was having difficulty standing on her right leg. Patient also felt like she was having difficulty speaking however she was able to understand what she was saying it just did not sound quite right. Patient admits to some tingling in her right arm and leg. Patient denies any headaches. Patient denies any chest pain or shortness of breath. Physical Examination: Vital signs are stable except for an elevated blood pressure of 167/100. Patient is afebrile. Patient is in no acute distress. Cranial nerves II through XII are intact except for a mild right facial droop. Patient was able to elevate her eyebrows equally. Strength is 4/5 in the right upper and lower extremities. Strength is 5/5 in the left upper and lower extremities. Sensation was slightly diminished to light touch in the right upper and lower extremities. Heart was regular rate and rhythm. Lungs are clear and equal bilaterally. Abdomen is soft. Bowel sounds are normal. There is no tenderness. Oral mucosa is pink and moist. Oropharynx is clear. The remaining physical exam is within normal limits. Test Results: CT scan of the brain was obtained. There is no acute intracranial abnormality noted. EKG showed normal sinus rhythm with a rate of 88. There are no acute ST or T wave changes. CBC was essentially within normal limits. Creatinine was slightly elevated at 1.18. Troponin was 0.032. Emergency Department Course and Treatment: Patient's right upper and lower extremity became weaker here in the emergency department. Patient's initial NIH score was 4 but increased to 5 with the worsening weakness. Patient's blood pressure increased to 195 systolic. Patient was given a dose of labetalol here. Case was discussed with neurology. They recommended administering TPA to the patient. I discussed this with the patient and family and they were agreeable. Patient was given TPA here in the emergency department. CTA of the brain was obtained. There are bilateral posterior cerebral arteries that are small in caliber but there is no focal high-grade stenosis or occlusion identified. There is no aneurysm in the [place]. Case was discussed with neurology again. Patient will be admitted here to the ICU. Patient and family understood and were agreeable with the plan. All questions were answered. Disposition: Admit to ICU Impression: Acute stroke with right-sided weakness This note was generated with [employer] dictation software. It may contain incorrect words, spelling, and punctuation that were not noted in review of the chart prior to signing ED Disposition - Plan for ED Patient: Disposition: Acute Care Hospital [facility] Chief Complaint: Numb/Ting Diagnosis: Stroke Referrals: Brandon March Chi, MD [Primary Care Provider] -
[2017-11-06] VITALS (52 sets, daily range): BP systolic 129–198; BP diastolic 56–97; PULSE 65–89; RESP 13–22; TEMP 36.3–37.1; O2SAT 93–100; BMI 29.7
--- NOTE | 2017-11-06 00:56 | PCM.HP.STD ---
Problem List (1) Stroke Status: Acute Qualifiers: CVA mechanism: embolism Precerebral and cerebral artery: unspecified cerebral artery Qualified Code(s): I63.40 - Cerebral infarction due to embolism of unspecified cerebral artery (2) Status post total left knee replacement Status: Chronic (3) Cataract Status: Chronic (4) Hypertension Status: Chronic History of Present Illness Date of Admission: 11/06/17 Chief Complaint: right side hemiplegia The patient is a 77 year old female patient presents to the ER with acute stroke symptoms. She was exercising at the [employer] at 7:00 pm this evening at the time of onset. She was walking the track and then using the rowing machine. She had to sit down on a bench there as her right leg started to become weak along with some dizziness. She managed to get to her car with her spouse and went home to watch the football game on TV. She quickly realized at home that her right leg was getting weaker and now her right arm was becoming weaker along with slurring of speech and right facial droop. Stroke team was called in the ER and decision to initiate tPA was made and she received a bolus treatment with some temporary improvement in symptoms. She was briefly able to move her right arm off of the bed and left her right leg normally. This quickly went away and is now suffering from right side hemiplegia. CTA showed no severe stenosis therefore decision was made to keep her in the ICU here. Past Medical History Past Medical History (Chronic Problems): Chronic Problems (Last Updated 04/09/17 @ 14:08 by Kendrick Godwin) Status post total left knee replacement (Chronic) Cataract (Chronic) Hypertension (Chronic) Medical History: Medical History (Last Updated 04/09/17 @ 14:08 by Kendrick Godwin) Cataract H26.9 Allergies adhesive tape Allergy (Verified 11/05/17 20:56) Other BLISTERS valsartan Allergy (Verified 06/18/17 09:21) Rash amlodipine Adverse Reaction (Verified 06/18/17 09:21) Other DIZZY, SHAKES enalaprilat [From Vasotec] Adverse Reaction (Verified 06/18/17 09:21) Other DRY COUGH minoxidil Adverse Reaction (Verified 06/18/17 09:21) Other SWELLING ANKLES, HANDS SHAKE risedronate sodium [From Actonel] Adverse Reaction (Verified 06/18/17 09:21) Other Home Medications: Ambulatory Orders Medication Instructions Recorded cholecalciferol (vitamin D3) 50,000 unit PO MONTHLY cap 04/09/17 50,000 unit capsule dexlansoprazole 60 mg 60 mg PO PRN PRN 04/09/17 capsule,biphase delayed release losartan 100 mg tablet 100 mg PO ONCE tab 04/09/17 pitavastatin calcium 2 mg tablet 2 mg PO ONCE tab 04/09/17 Multivitamin [Daily Multiple 1 each PO DAILY 04/24/17 Vitamin] Docusate Sodium [Colace] 100 mg PO BID PRN PRN #10 cap 05/03/17 tramadol 50 mg tablet See Label Instructions PO Q6H PRN 05/14/17 #40 tab Aspirin E.C. [Ecotrin] 81 mg PO DAILY@0800 11/05/17 Chlorthalidone [Chlorthalidone] 25 mg PO DAILY 11/05/17 Surgical History: Surgical History (Last Updated 05/14/17 @ 09:20 by Kendrick Godwin) History of total knee arthroplasty Z96.659 H/O adenoidectomy Z98.890, Z90.89 H/O dilation and curettage Z98.890 History of cholecystectomy Z98.890, Z90.49 History of hysterectomy Z98.890, Z90.710 History of tonsillectomy Z98.890, Z90.89 S/P sclerotherapy of varicose veins Z98.890, Z86.79 Smoking Status: Never smoker - *Family History Maternal Family History: Family History (Last Updated 04/09/17 @ 14:09 by Kendrick Godwin) Mother Cancer Father Colon cancer History Items: No pertinent history Review of Systems Constitutional: Denies: Chills, Fever, Weight Change HEENT: Denies: Head Aches, Sinus Congestion, Sinus Drainage Cardiovascular: Denies: Chest Pain, Palpitations Respiratory: Denies: Cough, Shortness of breath at rest, Sputum production Gastrointestinal: Denies: Abdominal Pain, Nausea, Vomiting Genitourinary: Denies: Dysuria Musculoskeletal: Denies: Joint Pain, Joint Tenderness Skin: Denies: Rash, Wounds Neurological: Reports: Balance problems, Change in Speech, Slurred speech, Difficulty swallowing, Focal weakness, Incoordination, Numbness, Tingling Psychiatric: Reports: Anxiety. Denies: Depression, Homicidal Ideations, Suicidal Ideations Hematologic/ Lymphatic: Denies: Easy Bruising, Easy Bleeding VTE Information - Inpt Only VTE Present on Admission: No VTE Mechan Device Prophylaxis: None VTE Pharm Prophylaxis ordered?: No Patient Problems: Active and Suspected Problems (Last Updated 04/09/17 @ 14:08 by Kendrick Godwin) Stroke (Acute) - Physical Exam General: Alert, Oriented x3, Cooperative HEENT: Atraumatic, PERRLA, EOMI, Normocephalic Neck: Supple Lungs: Clear to auscultation, Normal air movement Cardiovascular: Regular rate, Normal S1, Normal S2, No murmurs Abdomen: Bowel Sounds Present, Soft, Non Tender Extremities: No edema, Capillary Refill Less than 3 Seconds Skin: No rashes, No breakdown Musculoskeletal: No Tenderness to Palpation of Joints or Extremities Neurological: Facial Droop - right side, Slurred Speech, - - right arm complete paralysis right leg she can lift and maintain elevated 1off of the bed for only a few seconds. left arm 5/5 and left leg 5/5 strength Psych/Mental Status: Appropriate, Anxious Vital Signs Temp Pulse Resp BP Pulse Ox 98.1 F 76 18 180/82 H 98 11/05/17 23:57 11/06/17 00:42 11/06/17 00:42 11/06/17 00:44 11/06/17 00:42 Oxygen Flow Rate (L/min) 2 Oxygen Delivery Method Nasal Cannula Weight: 150 lb Body Mass Index (BMI) 27.4 Finger Stick Blood Glucose 109 Laboratory Tests Past 24 Hrs 11/05/17 11/05/17 11/05/17 21:05 21:05 21:05 WBC 10.0 RBC 4.65 Hgb 13.7 Hct 41.7 MCV 89.7 MCH 29.5 MCHC 32.9 RDW 13.1 RDW Differential 42.4 Plt Count 274 MPV 9.7 Immature Gran % (Auto) 0.100 Neut % (Auto) 45.1 L Lymph % (Auto) 41.5 H [place] % (Auto) 9.4 Eos % (Auto) 3.4 Baso % (Auto) 0.5 Absolute Neuts (auto) 4.5 Absolute Lymphs (auto) 4.16 Total Counted Not Reportable PT 12.6 INR 0.9 APTT 26.0 Sodium 139 Potassium 3.6 Chloride 104 Carbon Dioxide 28.0 Anion Gap 7 BUN 22 H Creatinine 1.18 H Estim Creat Clear Calc 31.08 Est GFR (MDRD) Af Amer 57 L Est GFR (MDRD) Non-Af 47 L BUN/Creatinine Ratio 18.6 Glucose 121 H Calcium 10.5 H Troponin I 0.032 POC Glucose 11/05/17 21:03 POC Glucose 109 Assessment/Plan All Active Problems (Last Updated 04/09/17 @ 14:08 by Kendrick Godwin) Stroke (Acute) Chronic Problems (Last Updated 04/09/17 @ 14:08 by Kendrick Godwin) Status post total left knee replacement (Chronic) Cataract (Chronic) Hypertension (Chronic) Plan - admit to ICU - 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
--- NOTE | 2017-11-06 01:21 | MRI_ITS ---
STUDY: MRA OF THE HEAD WITHOUT CONTRAST REASON FOR EXAM: Female, 77 years old. CVA. TECHNIQUE: 3-D [id number] (TOF) imaging was performed with MIPs. The study was performed unenhanced. COMPARISON: None. FINDINGS: Normal bilateral petrous carotid arteries. Normal right cavernous carotid artery with a normal supraclinoid bifurcation. Normal left cavernous carotid artery with a normal supraclinoid bifurcation. Normal right A1 segment of the anterior cerebral artery. Normal left A1 segment of the anterior cerebral artery. Normal intact anterior communicating artery (ACOM). Normal bilateral A2 segments of the anterior cerebral arteries. Normal right M1 and M2 segments of the middle cerebral arteries, with a normal M1 bifurcation. Normal left M1 and M2 segments of the middle cerebral arteries, with a normal M1 bifurcation. Normal right posterior communicating artery (PCOM). No visible left posterior communicating artery (PCOM). Normal bilateral vertebral arteries. Normal basilar artery with a normal basilar bifurcation. The visualized bilateral superior cerebellar (SCA) arteries are normal. Normal bilateral P1, P2 and visualized P3 segments of the posterior cerebral arteries. There is no demonstrated aneurysm of the [place]. There is no major vessel occlusion or hemodynamically significant stenosis. There is no demonstrated abnormality of the visualized brain. MRI/MRA Head ONLY without Contrast IMPRESSION: Normal MRA of the head Electronically Signed: Eric Henley MD at 12:10 EDT , Service support ,
--- NOTE | 2017-11-06 01:21 | MRI_ITS ---
STUDY: MRA NECK WITHOUT CONTRAST REASON FOR EXAM: Female, 77 years old. CVA. TECHNIQUE: Source images were obtained, MIPs were performed. The study was performed unenhanced. COMPARISON: None. FINDINGS: RIGHT CAROTID ARTERIES: Normal right common carotid artery (CCA). Normal right internal carotid bulb. Normal origin of the right internal carotid (ICA) artery without a hemodynamically significant stenosis. Normal visualized cervical portion of the right internal carotid artery. Normal origin of the right external carotid artery (ECA). LEFT CAROTID ARTERIES: Normal left common carotid artery (CCA). Normal left internal carotid bulb. Normal origin of the left internal carotid (ICA) artery without a hemodynamically significant stenosis. Normal visualized cervical portion of the left internal carotid artery. Normal origin of the left external carotid artery (ECA). VERTEBRAL ARTERIES: Normal antegrade flow within the bilateral vertebral artery without a hemodynamically significant stenosis. MRI/MRA Neck without Contrast IMPRESSION: Normal bilateral cervical carotid and vertebral arteries. Electronically Signed: Eric Henley MD at 10:23 EDT , Service support ,
--- NOTE | 2017-11-06 01:21 | MRI_ITS ---
STUDY: MRI BRAIN WITHOUT CONTRAST REASON FOR EXAM: Female, 77 years old. CVA. TECHNIQUE: Standardized multiplanar fat and water weighted pulse sequences were obtained. COMPARISON: CT head 11/05/2017. FINDINGS: Small restricted diffusion in the left posterior putamen is also visible on the FLAIR sequences. This is subacute lacunar ischemic infarct. Normal size of the ventricles and extra-axial spaces for the patient's age. Left posterior periventricular white matter T2 FLAIR hyperintensity foci and right frontal operculum subcortical white matter T2 FLAIR hyperintensity focus are presumably secondary to microvascular disease. Normal remaining basal ganglia. Normal thalami. There is no extra-axial fluid accumulation. Normal flow voids within the major intracranial circulation suggesting patency by spin echo criteria. Normal sella turcica, pituitary gland, infundibular stalk, optic chiasm and hypothalamus. Normal tectal plate and pineal gland. Normal midbrain, bob and medulla. Normal cerebellum. Normal basal cisterns. Normal bilateral temporal bones. Normal bilateral internal auditory canals. No demonstrated orbital abnormality, within the constraints of a routine brain study. Normal visualized paranasal sinuses. Normal calvarium and skull base. Normal visualized soft tissue structures. Normal visualized upper cervical spine. MRI/Brain without Contrast IMPRESSION: Subacute lacunar ischemic infarct in the left posterior putamen. Electronically Signed: Eric Henley MD at 10:21 EDT , Service support ,
[2017-11-06] MEDS: 0.9% NaCl Peripheral Flush Adult/Peds IV ×2 (01:45→22:50)
[2017-11-06] MEDS: 0.9% Normal Saline 1,000 ML 100 ML IV (02:30)
[2017-11-06 05:09] LABS: Anion Gap 10 (5-15); BUN 19 mg/dL (7-18); BUN/Creat Ratio 18.1 RATIO (10-20); Calcium,Total 9.2 mg/dL (8.5-10.1); Chloride 109 mmol/L (98-107); Cholesterol 204 mg/dL (200); Creatinine, Serum 1.05 mg/dL (0.55-1.02); EST Glomerular Filtration Rate 54 mL/min (>60); Est Glom Filt Rate - Afr Amer 65 mL/min (>60); Estimated Creatinine Clearance 33.32 ml/min; Glucose 108 mg/dL (74-106); Hematocrit 35.1 % (37-47); High Density Lipoprotein 42 mg/dL; Mean Corp Hgb Conc 34.2 g/gl (32-36); Mean Corpuscular Hgb 30.3 pg (27.0-32.0); Mean Corpuscular Volume 88.6 fL (81-99); Mean Platelet Vol. 9.9 fl (6.2-12.0); Platelet Count 238 K/mm3 (150-450); Potassium 3.8 mmol/L (3.5-5.1); RBC Distribution Width CV 12.8 % (11.6-14.6); RBC Distribution Width SD 40.8 fl (35.1-43.9); Red Blood Count 3.96 M/mm3 (4.2-5.4); Sodium Level 143 mmol/L (136-145); Triglycerides 149 mg/dL; Very Low Density Lipoprotein 30 mg/dL (5-40); White Blood Count 9.7 K/mm3 (4.4-11.0)
[2017-11-06 05:11] LABS: Scan Indicated on CBC? Y/N NO
--- NOTE | 2017-11-06 07:20 | NURSING ---
Fails d/t 24hr bedrest s/p tpa.
--- NOTE | 2017-11-06 08:01 | PCM.CON.CC ---
Problem List (1) Hip hematoma, right Status: Acute (2) Stroke Status: Acute Qualifiers: CVA mechanism: embolism Precerebral and cerebral artery: unspecified cerebral artery Qualified Code(s): I63.40 - Cerebral infarction due to embolism of unspecified cerebral artery (3) Status post total left knee replacement Status: Chronic (4) Cataract Status: Chronic (5) Hypertension Status: Chronic Reason for Consult Date of Consultation: 11/06/17 Reason for Consultation: CVA status post TPA History of Present Illness: The patient is a 77 year old F with past medical history listed below, who presented to [facility] on 11/05/2017 secondary to right-sided weakness. Patient reportedly was doing her standard exercises and finished around 7 PM. Patient had started to feel some unsteadiness on the right leg with some mild weakness. By arrival to the ER, patient was having difficulty standing on her right leg and reported slight slurring of her speech. Patient had also reported some paresthesias on the right. On presentation to the ER, patient was hypertensive at 167/100 and was noted to have a right mild facial droop. Stroke team was activated and CT showed no intracranial hemorrhage. Patient continued to have progressive weakening of the right side. Patient's blood pressure increased to 195 systolic, so was given labetalol prior to initiation of TPA. Patient was then admitted to the intensive care unit for further monitoring. Since being in the intensive care unit, patient has been noted to have a right hematoma on her hip. Patient has had improved movement of her right lower extremity, but has a flaccid right upper extremity. Patient continues to have a mild right facial droop, but subjectively she feels her speech is improving. No bleeding complications have been noted outside of right hip hematoma. Patient does report that she has been noticing some blood while urinating for the last couple of weeks. Patient has had a workup initiated by Dr. Wong and states she has an appointment this to review the results. Patient did have a history of a kidney stone in the past that was not present on recent ultrasound, so the working diagnosis was a passed kidney stone. Patient denies any history of respiratory issues. Patient has never been a smoker and denies any illicit drug use. Patient does have a history of cancer in both her father and mother. Review of systems otherwise negative x10 systems. Past Medical History Past Medical History (Chronic Problems): Chronic Problems (Last Updated 04/09/17 @ 14:08 by Kendrick Godwin) Status post total left knee replacement (Chronic) Cataract (Chronic) Hypertension (Chronic) Medical History: Medical History (Last Updated 04/09/17 @ 14:08 by Kendrick Godwin) Cataract H26.9 Allergies adhesive tape Allergy (Verified 11/05/17 20:56) Other BLISTERS valsartan Allergy (Verified 06/18/17 09:21) Rash amlodipine Adverse Reaction (Verified 06/18/17 09:21) Other DIZZY, SHAKES enalaprilat [From Vasotec] Adverse Reaction (Verified 06/18/17 09:21) Other DRY COUGH minoxidil Adverse Reaction (Verified 06/18/17 09:21) Other SWELLING ANKLES, HANDS SHAKE risedronate sodium [From Actonel] Adverse Reaction (Verified 06/18/17 09:21) Other Home Medications: Ambulatory Orders Medication Instructions Recorded cholecalciferol (vitamin D3) 50,000 unit PO MONTHLY cap 04/09/17 50,000 unit capsule dexlansoprazole 60 mg 60 mg PO PRN PRN 04/09/17 capsule,biphase delayed release losartan 100 mg tablet 100 mg PO ONCE tab 04/09/17 pitavastatin calcium 2 mg tablet 2 mg PO ONCE tab 04/09/17 Multivitamin [Daily Multiple 1 each PO DAILY 04/24/17 Vitamin] tramadol 50 mg tablet See Rx Instructions PO Q6H PRN #40 05/14/17 tab Aspirin E.C. [Ecotrin] 81 mg PO DAILY@0800 11/05/17 Chlorthalidone 25 mg PO DAILY 11/05/17 Surgical History: Surgical History (Last Updated 05/14/17 @ 09:20 by Kendrick Godwin) History of total knee arthroplasty Z96.659 H/O adenoidectomy Z98.890, Z90.89 H/O dilation and curettage Z98.890 History of cholecystectomy Z98.890, Z90.49 History of hysterectomy Z98.890, Z90.710 History of tonsillectomy Z98.890, Z90.89 S/P sclerotherapy of varicose veins Z98.890, Z86.79 Smoking Status: Never smoker - *Family History Maternal Family History: Family History (Last Updated 04/09/17 @ 14:09 by Kendrick Godwin) Mother Cancer Father Colon cancer History Items: No pertinent history Review of Systems Comment: See HPI Patient Problems: Active and Suspected Problems (Last Updated 04/09/17 @ 14:08 by Kendrick Godwin) Stroke (Acute) Hip hematoma, right (Acute) Objective: CT scan of the head was personally reviewed. Patient does have small appearing posterior cerebral arteries. I could not see any aneurysms. No intraparenchymal bleed was noted. - Physical Exam General: Alert, Oriented x3, Cooperative, No apparent distress, Well developed, Well nourished, - - Slight dysarthria, but speaking in full sentences. HEENT: Atraumatic, PERRLA, EOMI, Normocephalic, - - No scleral icterus or injection noted. Oral: Moist Mucosa, No Gingival or Mucosal Lesions/ Ulcerations Neck: Supple, No JVD, No Nodes, Trachea Midline Lungs: Clear to auscultation, Normal air movement, No rhonchi, No wheeze, No rales, - - Symmetric expansion. No dullness to percussion. Cardiovascular: Regular rate, Regular Rhythm, Normal S1, Normal S2, No murmurs, No rub noted, No Gallop Abdomen: Bowel Sounds Present, Soft, Non Tender, Non-Distended Extremities: No clubbing, No cyanosis, No edema Skin: No rashes, - - Approximately 6 cm hematoma noted on the lateral aspect of the right hip. No induration noted. Area marked. Musculoskeletal: No Tenderness to Palpation of Joints or Extremities Lymphatic: No Cervical, Supraclavicular, or Inguinal Adenopathy Neurological: - - Patient with flaccid right upper extremity and 4 out of 5 weakness of the right lower extremity. Sensation appears to be intact. Patient does have a mild right facial droop and dysarthria. No aphasia is appreciated. Psych/Mental Status: Alert and oriented to time, place, person, mood and affect Vital Signs Temp Pulse Resp BP Pulse Ox 36.6 C 74 16 150/77 H 98 11/06/17 06:47 11/06/17 06:47 11/06/17 06:47 11/06/17 06:47 11/06/17 06:47 Oxygen Flow Rate (L/min) 2 Oxygen Delivery Method Nasal Cannula Weight: 71.3 kg Body Mass Index (BMI) 29.7 Finger Stick Blood Glucose 109 Intake and Output for Last 24 Hours 11/04/17 11/05/17 11/06/17 23:59 23:59 23:59 Intake Total 372 / 372 Output Total 200 / 200 Balance 172 / 172 Laboratory Tests Past 24 Hrs 11/05/17 11/05/17 11/05/17 21:05 21:05 21:05 WBC 10.0 RBC 4.65 Hgb 13.7 Hct 41.7 MCV 89.7 MCH 29.5 MCHC 32.9 RDW 13.1 RDW Differential 42.4 Plt Count 274 MPV 9.7 Immature Gran % (Auto) 0.100 Neut % (Auto) 45.1 L Lymph % (Auto) 41.5 H [place] % (Auto) 9.4 Eos % (Auto) 3.4 Baso % (Auto) 0.5 Absolute Neuts (auto) 4.5 Absolute Lymphs (auto) 4.16 Total Counted Not Reportable PT 12.6 INR 0.9 APTT 26.0 Sodium 139 Potassium 3.6 Chloride 104 Carbon Dioxide 28.0 Anion Gap 7 BUN 22 H Creatinine 1.18 H Estim Creat Clear Calc 31.08 Est GFR (MDRD) Af Amer 57 L Est GFR (MDRD) Non-Af 47 L BUN/Creatinine Ratio 18.6 Glucose 121 H Calcium 10.5 H Troponin I 0.032 Triglycerides Cholesterol LDL Cholesterol VLDL Cholesterol HDL Cholesterol 11/06/17 11/06/17 11/06/17 01:45 04:45 04:45 WBC 9.7 RBC 3.96 L Hgb 12.0 Hct 35.1 L MCV 88.6 MCH 30.3 MCHC 34.2 RDW 12.8 RDW Differential 40.8 Plt Count 238 MPV 9.9 Immature Gran % (Auto) Neut % (Auto) Lymph % (Auto) [place] % (Auto) Eos % (Auto) Baso % (Auto) Absolute Neuts (auto) Absolute Lymphs (auto) Total Counted PT INR APTT Sodium 143 Potassium 3.8 Chloride 109 H Carbon Dioxide 24.0 Anion Gap 10 BUN 19 H Creatinine 1.05 H Estim Creat Clear Calc 33.32 Est GFR (MDRD) Af Amer 65 Est GFR (MDRD) Non-Af 54 L BUN/Creatinine Ratio 18.1 Glucose 108 H Calcium 9.2 Troponin I 0.041 Triglycerides 149 Cholesterol 204 H LDL Cholesterol 132 H VLDL Cholesterol 30 HDL Cholesterol 42 11/06/17 04:45 WBC RBC Hgb Hct MCV MCH MCHC RDW RDW Differential Plt Count MPV Immature Gran % (Auto) Neut % (Auto) Lymph % (Auto) [place] % (Auto) Eos % (Auto) Baso % (Auto) Absolute Neuts (auto) Absolute Lymphs (auto) Total Counted PT INR APTT Sodium Potassium Chloride Carbon Dioxide Anion Gap BUN Creatinine Estim Creat Clear Calc Est GFR (MDRD) Af Amer Est GFR (MDRD) Non-Af BUN/Creatinine Ratio Glucose Calcium Troponin I 0.038 Triglycerides Cholesterol LDL Cholesterol VLDL Cholesterol HDL Cholesterol POC Glucose 11/05/17 21:03 POC Glucose 109 Clinical Impression(s) from Imaging Studies Brain CT 11/05/17 21:14 IMPRESSION: Mild atrophy. No acute findings. N.B. : The above information has been verbally conveyed by Luli Cantor MD to Jared Chandra on 11/05/2017 21:47:17 (ET). Electronically Signed: Luli Cantor MD at 21:47 EDT Tel , Service support , Chest X-Ray 11/05/17 21:25 IMPRESSION: Normal x-ray examination of the chest. Electronically Signed: Luli Cantor MD at 22:00 EDT Tel , Service support , Head CTA 11/05/17 22:12 IMPRESSION: Bilateral posterior cerebral arteries are small in caliber, greater on the RIGHT. NO focal high-grade stenosis or occlusion is identified. There is no demonstrated aneurysm of the [place]. Electronically Signed: José Antonio Rodas MD at 0:24 EDT , Service support , Assessment/Plan Active and Suspected Problems (Last Updated 04/09/17 @ 14:08 by Kendrick Godwin) Stroke (Acute) Hip hematoma, right (Acute) RECOMMENDATIONS: 1. Continue with post TPA protocol 2. Await neurology recommendations 3. Probable MRI later today 4. Check H&H this afternoon 5. Monitor hip hematoma clinically 6. PT/OT/ST evaluation and treat IMPRESSIONS: 1. Acute embolic CVA status post TPA Patient has not had any significant change in symptoms despite reported close approximation of symptoms. Patient still with a relatively high NIH. We will continue with post TPA protocol. Patient likely to get an MRI later today. Patient does have a hematoma on the right hip, so repeat H&H at 2 PM to ensure stability. Continue to monitor hip hematoma clinically. Therapies will be consulted. 2. Hypertensive urgency Patient with a history of high blood pressure in the past. Will allow for permissive hypertension, but keep blood pressures less than 160 systolic during TPA window. IV hydralazine and labetalol can be used. Will stop IV fluids. Code Visit Inpatient E&M: 49802 Init Hosp L3
--- NOTE | 2017-11-06 08:07 | CON.PCM_ITS ---
Problem List (1) Hip hematoma, right Status: Acute (2) Stroke Status: Acute Qualifiers: CVA mechanism: embolism Precerebral and cerebral artery: unspecified cerebral artery Qualified Code(s): I63.40 - Cerebral infarction due to embolism of unspecified cerebral artery (3) Status post total left knee replacement Status: Chronic (4) Cataract Status: Chronic (5) Hypertension Status: Chronic Reason for Consult Date of Consultation: 11/06/17 Reason for Consultation: CVA status post TPA History of Present Illness: The patient is a 77 year old F with past medical history listed below, who presented to [facility] on 11/05/2017 secondary to right-sided weakness. Patient reportedly was doing her standard exercises and finished around 7 PM. Patient had started to feel some unsteadiness on the right leg with some mild weakness. By arrival to the ER, patient was having difficulty standing on her right leg and reported slight slurring of her speech. Patient had also reported some paresthesias on the right. On presentation to the ER, patient was hypertensive at 167/100 and was noted to have a right mild facial droop. Stroke team was activated and CT showed no intracranial hemorrhage. Patient continued to have progressive weakening of the right side. Patient's blood pressure increased to 195 systolic, so was given labetalol prior to initiation of TPA. Patient was then admitted to the intensive care unit for further monitoring. Since being in the intensive care unit, patient has been noted to have a right hematoma on her hip. Patient has had improved movement of her right lower extremity, but has a flaccid right upper extremity. Patient continues to have a mild right facial droop, but subjectively she feels her speech is improving. No bleeding complications have been noted outside of right hip hematoma. Patient does report that she has been noticing some blood while urinating for the last couple of weeks. Patient has had a workup initiated by Dr. Wong and states she has an appointment this to review the results. Patient did have a history of a kidney stone in the past that was not present on recent ultrasound, so the working diagnosis was a passed kidney stone. Patient denies any history of respiratory issues. Patient has never been a smoker and denies any illicit drug use. Patient does have a history of cancer in both her father and mother. Review of systems otherwise negative x10 systems. Past Medical History Past Medical History (Chronic Problems): Chronic Problems (Last Updated 04/09/17 @ 14:08 by Kendrick Godwin) Status post total left knee replacement (Chronic) Cataract (Chronic) Hypertension (Chronic) Medical History: Medical History (Last Updated 04/09/17 @ 14:08 by Kendrick Godwin) Cataract H26.9 Allergies adhesive tape Allergy (Verified 11/05/17 20:56) Other BLISTERS valsartan Allergy (Verified 06/18/17 09:21) Rash amlodipine Adverse Reaction (Verified 06/18/17 09:21) Other DIZZY, SHAKES enalaprilat [From Vasotec] Adverse Reaction (Verified 06/18/17 09:21) Other DRY COUGH minoxidil Adverse Reaction (Verified 06/18/17 09:21) Other SWELLING ANKLES, HANDS SHAKE risedronate sodium [From Actonel] Adverse Reaction (Verified 06/18/17 09:21) Other Home Medications: Ambulatory Orders Medication Instructions Recorded cholecalciferol (vitamin D3) 50,000 unit PO MONTHLY cap 04/09/17 50,000 unit capsule dexlansoprazole 60 mg 60 mg PO PRN PRN 04/09/17 capsule,biphase delayed release losartan 100 mg tablet 100 mg PO ONCE tab 04/09/17 pitavastatin calcium 2 mg tablet 2 mg PO ONCE tab 04/09/17 Multivitamin [Daily Multiple 1 each PO DAILY 04/24/17 Vitamin] tramadol 50 mg tablet See Rx Instructions PO Q6H PRN #40 05/14/17 tab Aspirin E.C. [Ecotrin] 81 mg PO DAILY@0800 11/05/17 Chlorthalidone 25 mg PO DAILY 11/05/17 Surgical History: Surgical History (Last Updated 05/14/17 @ 09:20 by Kendrick Godwin) History of total knee arthroplasty Z96.659 H/O adenoidectomy Z98.890, Z90.89 H/O dilation and curettage Z98.890 History of cholecystectomy Z98.890, Z90.49 History of hysterectomy Z98.890, Z90.710 History of tonsillectomy Z98.890, Z90.89 S/P sclerotherapy of varicose veins Z98.890, Z86.79 Smoking Status: Never smoker - *Family History Maternal Family History: Family History (Last Updated 04/09/17 @ 14:09 by Kendrick Godwin) Mother Cancer Father Colon cancer History Items: No pertinent history Review of Systems Comment: See HPI Patient Problems: Active and Suspected Problems (Last Updated 04/09/17 @ 14:08 by Kendrick Godwin) Stroke (Acute) Hip hematoma, right (Acute) Objective: CT scan of the head was personally reviewed. Patient does have small appearing posterior cerebral arteries. I could not see any aneurysms. No intraparenchymal bleed was noted. - Physical Exam General: Alert, Oriented x3, Cooperative, No apparent distress, Well developed, Well nourished, - - Slight dysarthria, but speaking in full sentences. HEENT: Atraumatic, PERRLA, EOMI, Normocephalic, - - No scleral icterus or inje ction noted. Oral: Moist Mucosa, No Gingival or Mucosal Lesions/ Ulcerations Neck: Supple, No JVD, No Nodes, Trachea Midline Lungs: Clear to auscultation, Normal air movement, No rhonchi, No wheeze, No rales, - - Symmetric expansion. No dullness to percussion. Cardiovascular: Regular rate, Regular Rhythm, Normal S1, Normal S2, No murmurs, No rub noted, No Gallop Abdomen: Bowel Sounds Present, Soft, Non Tender, Non-Distended Extremities: No clubbing, No cyanosis, No edema Skin: No rashes, - - Approximately 6 cm hematoma noted on the lateral aspect of the right hip. No induration noted. Area marked. Musculoskeletal: No Tenderness to Palpation of Joints or Extremities Lymphatic: No Cervical, Supraclavicular, or Inguinal Adenopathy Neurological: - - Patient with flaccid right upper extremity and 4 out of 5 weakness of the right lower extremity. Sensation appears to be intact. Patient does have a mild right facial droop and dysarthria. No aphasia is appreciated. Psych/Mental Status: Alert and oriented to time, place, person, mood and affect Vital Signs Temp Pulse Resp BP Pulse Ox 36.6 C 74 16 150/77 H 98 11/06/17 06:47 11/06/17 06:47 11/06/17 06:47 11/06/17 06:47 11/06/17 06:47 Oxygen Flow Rate (L/min) 2 Oxygen Delivery Method Nasal Cannula Weight: 71.3 kg Body Mass Index (BMI) 29.7 Finger Stick Blood Glucose 109 Intake and Output for Last 24 Hours 11/04/17 11/05/17 11/06/17 23:59 23:59 23:59 Intake Total 372 / 372 Output Total 200 / 200 Balance 172 / 172 Laboratory Tests Past 24 Hrs 11/05/17 11/05/17 11/05/17 21:05 21:05 21:05 WBC 10.0 RBC 4.65 Hgb 13.7 Hct 41.7 MCV 89.7 MCH 29.5 MCHC 32.9 RDW 13.1 RDW Differential 42.4 Plt Count 274 MPV 9.7 Immature Gran % (Auto) 0.100 Neut % (Auto) 45.1 L Lymph % (Auto) 41.5 H [place] % (Auto) 9.4 Eos % (Auto) 3.4 Baso % (Auto) 0.5 Absolute Neuts (auto) 4.5 Absolute Lymphs (auto) 4.16 Total Counted Not Reportable PT 12.6 INR 0.9 APTT 26.0 Sodium 139 Potassium 3.6 Chloride 104 Carbon Dioxide 28.0 Anion Gap 7 BUN 22 H Creatinine 1.18 H Estim Creat Clear Calc 31.08 Est GFR (MDRD) Af Amer 57 L Est GFR (MDRD) Non-Af 47 L BUN/Creatinine Ratio 18.6 Glucose 121 H Calcium 10.5 H Troponin I 0.032 Triglycerides Cholesterol LDL Cholesterol VLDL Cholesterol HDL Cholesterol 11/06/17 11/06/17 11/06/17 01:45 04:45 04:45 WBC 9.7 RBC 3.96 L Hgb 12.0 Hct 35.1 L MCV 88.6 MCH 30.3 MCHC 34.2 RDW 12.8 RDW Differential 40.8 Plt Count 238 MPV 9.9 Immature Gran % (Auto) Neut % (Auto) Lymph % (Auto) [place] % (Auto) Eos % (Auto) Baso % (Auto) Absolute Neuts (auto) Absolute Lymphs (auto) Total Counted PT INR APTT Sodium 143 Potassium 3.8 Chloride 109 H Carbon Dioxide 24.0 Anion Gap 10 BUN 19 H Creatinine 1.05 H Estim Creat Clear Calc 33.32 Est GFR (MDRD) Af Amer 65 Est GFR (MDRD) Non-Af 54 L BUN/Creatinine Ratio 18.1 Glucose 108 H Calcium 9.2 Troponin I 0.041 Triglycerides 149 Cholesterol 204 H LDL Cholesterol 132 H VLDL Cholesterol 30 HDL Cholesterol 42 11/06/17 04:45 WBC RBC Hgb Hct MCV MCH MCHC RDW RDW Differential Plt Count MPV Immature Gran % (Auto) Neut % (Auto) Lymph % (Auto) [place] % (Auto) Eos % (Auto) Baso % (Auto) Absolute Neuts (auto) Absolute Lymphs (auto) Total Counted PT INR APTT Sodium Potassium Chloride Carbon Dioxide Anion Gap BUN Creatinine Estim Creat Clear Calc Est GFR (MDRD) Af Amer Est GFR (MDRD) Non-Af BUN/Creatinine Ratio Glucose Calcium Troponin I 0.038 Triglycerides Cholesterol LDL Cholesterol VLDL Cholesterol HDL Cholesterol POC Glucose 11/05/17 21:03 POC Glucose 109 Clinical Impression(s) from Imaging Studies Brain CT 11/05/17 21:14 IMPRESSION: Mild atrophy. No acute findings. N.B. : The above information has been verbally conveyed by Luli Cantor MD to Jared Hornewm on 11/05/2017 21:47:17 (ET). Electronically Signed: Luli Cantor MD at 21:47 EDT Tel , Service support , Chest X-Ray 11/05/17 21:25 IMPRESSION: Normal x-ray examination of the chest. Electronically Signed: Luli Cantor MD at 22:00 EDT Tel , Service support , Head CTA 11/05/17 22:12 IMPRESSION: Bilateral posterior cerebral arteries are small in caliber, greater on the RIGHT. NO focal high-grade stenosis or occlusion is identified. There is no demonstrated aneurysm of the [place]. Electronically Signed: José Antonio Rodas MD at 0:24 EDT , Service support , Assessment/Plan Active and Suspected Problems (Last Updated 04/09/17 @ 14:08 by Kendrick Godwin) Stroke (Acute) Hip hematoma, right (Acute) RECOMMENDATIONS: 1. Continue with post TPA protocol 2. Await neurology recommendations 3. Probable MRI later today 4. Check H&H this afternoon 5. Monitor hip hematoma clinically 6. PT/OT/ST evaluation and treat IMPRESSIONS: 1. Acute embolic CVA status post TPA Patient has not had any significant change in symptoms despite reported close approximation of symptoms. Patient still with a relatively high NIH. We will continue with post TPA protocol. Patient likely to get an MRI later today. Patient does have a hematoma on the right hip, so repeat H&H at 2 PM to ensure stability. Continue to monitor hip hematoma clinically. Therapies will be consulted. 2. Hypertensive urgency Patient with a history of high blood pressure in the past. Will allow for permissive hypertension, but keep blood pressures less than 160 systolic during TPA window. IV hydralazine and labetalol can be used. Will stop IV fluids. Code Visit Inpatient E&M: 20593 Init Hosp L3
--- NOTE | 2017-11-06 08:50 | NURSING ---
Pt to MRI with this RN.
--- NOTE | 2017-11-06 09:10 | PCM.HOSP.N ---
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 H&P, vitals, labs, imaging and plan of management reviewed. In summary, patient is a 19-year-old female with history of hypertension, dyslipidemia was admitted with right-sided weakness and sensory loss, slurred speech and facial droop consistent with left MCA stroke. Furthermore CT head at that time did not show any hemorrhage and so patient was given rtPA for ischemic stroke. On exam Lungs: Air entry bilaterally equal. No crepitation/rhonchi. Heart: S1-S2 regular no murmur gallop rub. Neuro: Right upper extremity drops down with flaccid paralysis. Power 1/5. Right lower extremity power 3+/5. Left upper and lower extremity 5/5. Mild sensory loss on the right upper and lower extremity. Patient has mild dysarthria. Initial NIH stroke scale document was 9. Most recent denies stroke scale 7. Extremities: Mild pedal edema Skin: Small hematoma at lateral aspect of left hip. 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 MRI brain shows subacute lacunar ischemic infarct in the left posterior putamen. Head CT shows bilateral posterior cerebral arteries small in caliber greater on the right. No focal high-grade stenosis or occlusion. No aneurysm of [place]. Patient is scheduled for 24 hour post-TPA CT head tonight. If no humerus found, will start on aspirin 81 mg once daily. Continue NIH stroke scale as per protocol. On statin. BP and glucose control as per stroke guidelines with permissive hypertension for 24 hours post TPA. Neurologist consult reviewed and appreciated. Advised 30 day event monitor as an outpatient. PT/OT and speech of aggression. A1c 5.7. 2. Acute hematoma on the right hip status post TPA: Hematoma site has not grown bigger. Monitor. No retroperitoneal extension. 3. Hypertension: As mentioned above will maintain permissive hypertension. Treat with labetalol 10 mg IV if systolic blood pressure more than 180. 4. Dyslipidemia: Fasting lipid profile shows total cholesterol 204, LDL 132, triglyceride 149, HDL 42. On atorvastatin. Clinical Impression(s) from Imaging Studies Brain CT 11/05/17 21:14 IMPRESSION: Mild atrophy. No acute findings. Chest X-Ray 11/05/17 21:25 IMPRESSION: Normal x-ray examination of the chest. Head CTA 11/05/17 22:12 IMPRESSION: Bilateral posterior cerebral arteries are small in caliber, greater on the RIGHT. NO focal high-grade stenosis or occlusion is identified. There is no demonstrated aneurysm of the [place]. Brain MRI 11/06/17 01:21 IMPRESSION: Subacute lacunar ischemic infarct in the left posterior putamen. Head MRA 11/06/17 01:21 IMPRESSION: Normal MRA of the head
--- NOTE | 2017-11-06 09:41 | CASEMGMT ---
Addendum entered by Lucas Lopez 11/06/17 11:28: Call received from [facility] Inpt Rehab Mgr. Referral received, and pt will be followed for dc to Inpt Rehab pending approval by Neurologist. Pt has MCR, no prior authorization is needed. Original Note: FABIOLA LAGUNAS assessment completed. See Link. DC PLAN: undetermined -Per , pt was independent prior this event. She did not use DME. -Discussed likely need for rehabilitation once medically cleared. Discussed PT/OT will work with pt, likely Inpt Rehab on dc. states pt would like to remain @ [facility] if rehab is needed -Call to referral line for Inpt Rehab, message left. -FABIOLA LAGUNAS spoke with CHIO Hogan. Updated on pt and will follow pt's progress. Chaparro BSN RN ACM
--- NOTE | 2017-11-06 10:20 | NURSING ---
Pt back to ICU room 2.
--- NOTE | 2017-11-06 14:24 | PCM.CONS.GEN ---
Problem List (1) Stroke Status: Acute Qualifiers: CVA mechanism: embolism Precerebral and cerebral artery: middle cerebral artery Laterality of affected vessel: left Qualified Code(s): I63.412 - Cerebral infarction due to embolism of left middle cerebral artery Reason for Consult Date of Consultation: 11/06/17 Reason for Consultation: Stroke History of Present Illness: The patient is a 77 year old CF with PMH HTN, HLD admitted with acute onset right sided weakness, slurred speech and facial droop, she also had right sided sensory loss on admission. On admission NIHSS was 4-5 per ED documentation. She was a tpa candidate. CT head done on admission reported nothing acute. CTA head did not show any high grade stenosis but CTA neck not ordered by ED. MRI brain done on admission showed small to moderate acute left MCA stroke (left posterior putamen). Per patient she lives with her , denies any falls, does not use cane or walker to ambulate, and does not need any assistance for her ADLs. Takes ASA every other day at baseline. At present denies any FRANKS, visual disturbances, chest pain, fever, or palpitations, continues to have right sided weakness, speech is improving per patient. Found to have right upper thigh /hip hematoma, per patient she hit her hip when she was shifted to wheel chair from the car prior to coming to the ED. ] Past Medical History Past Medical History (Chronic Problems): Chronic Problems (Last Updated 04/09/17 @ 14:08 by Kendrick Godwin) Status post total left knee replacement (Chronic) Cataract (Chronic) Hypertension (Chronic) Medical History: Medical History (Last Updated 04/09/17 @ 14:08 by Kendrick Godwin) Cataract H26.9 Allergies adhesive tape Allergy (Verified 11/05/17 20:56) Other BLISTERS valsartan Allergy (Verified 06/18/17 09:21) Rash amlodipine Adverse Reaction (Verified 06/18/17 09:21) Other DIZZY, SHAKES enalaprilat [From Vasotec] Adverse Reaction (Verified 06/18/17 09:21) Other DRY COUGH minoxidil Adverse Reaction (Verified 06/18/17 09:21) Other SWELLING ANKLES, HANDS SHAKE risedronate sodium [From Actonel] Adverse Reaction (Verified 06/18/17 09:21) Other Home Medications: Ambulatory Orders Medication Instructions Recorded cholecalciferol (vitamin D3) 50,000 unit PO MONTHLY cap 04/09/17 50,000 unit capsule dexlansoprazole 60 mg 60 mg PO PRN PRN 04/09/17 capsule,biphase delayed release losartan 100 mg tablet 100 mg PO ONCE tab 04/09/17 pitavastatin calcium 2 mg tablet 2 mg PO ONCE tab 04/09/17 Multivitamin [Daily Multiple 1 each PO DAILY 04/24/17 Vitamin] tramadol 50 mg tablet See Rx Instructions PO Q6H PRN #40 05/14/17 tab Aspirin E.C. [Ecotrin] 81 mg PO DAILY@0800 11/05/17 Chlorthalidone 25 mg PO DAILY 11/05/17 Surgical History: Surgical History (Last Updated 05/14/17 @ 09:20 by Kendrick Godwin) History of total knee arthroplasty Z96.659 H/O adenoidectomy Z98.890, Z90.89 H/O dilation and curettage Z98.890 History of cholecystectomy Z98.890, Z90.49 History of hysterectomy Z98.890, Z90.710 History of tonsillectomy Z98.890, Z90.89 S/P sclerotherapy of varicose veins Z98.890, Z86.79 Lives: Spouse/ Significant Other Smoking Status: Never smoker Alcohol: None Drugs: None - *Family History Maternal Family History: Family History (Last Updated 04/09/17 @ 14:09 by Kendrick Godwin) Mother Cancer Father Colon cancer History Items: No pertinent history Review of Systems Constitutional: Reports: - - complete ROS negative except as documented in HPI Patient Problems: Active and Suspected Problems (Last Updated 04/09/17 @ 14:08 by Kendrick Godwin) Stroke (Acute) Hip hematoma, right (Acute) - Physical Exam General: Alert HEENT: Normocephalic Neck: Supple Lungs: Normal air movement Cardiovascular: Normal S1, Normal S2 Abdomen: Bowel Sounds Present Extremities: No cyanosis Neurological: - - consious, alert, CN 2-12 grossly intact except mild right UMN facial palsy, Power Right UE 1/5, LE 3/5, Left UE/LE-5/5, mild sensory loss right UE/LE, no extinction, no cerebellar signs left side, Reflexes + B/L B/S/T/K/A, gait deferred, mild dysarthria. NIHSS 7 at present, mRS 0 at baseline. Psych/Mental Status: Normal Affect Vital Signs Temp Pulse Resp BP Pulse Ox 98.3 F 78 22 H 156/88 H 94 11/06/17 14:00 11/06/17 14:00 11/06/17 14:00 11/06/17 14:00 11/06/17 14:00 Oxygen Flow Rate (L/min) 2 Oxygen Delivery Method Room Air Weight: 71.3 kg Body Mass Index (BMI) 29.7 Finger Stick Blood Glucose 109 Intake and Output for Last 24 Hours 11/04/17 11/05/17 11/06/17 23:59 23:59 23:59 Intake Total 372 / 372 Output Total 200 / 200 Balance 172 / 172 Laboratory Tests Past 24 Hrs 11/05/17 11/05/17 11/05/17 21:05 21:05 21:05 WBC 10.0 RBC 4.65 Hgb 13.7 Hct 41.7 MCV 89.7 MCH 29.5 MCHC 32.9 RDW 13.1 RDW Differential 42.4 Plt Count 274 MPV 9.7 Immature Gran % (Auto) 0.100 Neut % (Auto) 45.1 L Lymph % (Auto) 41.5 H [place] % (Auto) 9.4 Eos % (Auto) 3.4 Baso % (Auto) 0.5 Absolute Neuts (auto) 4.5 Absolute Lymphs (auto) 4.16 Total Counted Not Reportable PT 12.6 INR 0.9 APTT 26.0 Sodium 139 Potassium 3.6 Chloride 104 Carbon Dioxide 28.0 Anion Gap 7 BUN 22 H Creatinine 1.18 H Estim Creat Clear Calc 31.08 Est GFR (MDRD) Af Amer 57 L Est GFR (MDRD) Non-Af 47 L BUN/Creatinine Ratio 18.6 Glucose 121 H Calcium 10.5 H Troponin I 0.032 Triglycerides Cholesterol LDL Cholesterol VLDL Cholesterol HDL Cholesterol 11/06/17 11/06/17 11/06/17 01:45 04:45 04:45 WBC 9.7 RBC 3.96 L Hgb 12.0 Hct 35.1 L MCV 88.6 MCH 30.3 MCHC 34.2 RDW 12.8 RDW Differential 40.8 Plt Count 238 MPV 9.9 Immature Gran % (Auto) Neut % (Auto) Lymph % (Auto) [place] % (Auto) Eos % (Auto) Baso % (Auto) Absolute Neuts (auto) Absolute Lymphs (auto) Total Counted PT INR APTT Sodium 143 Potassium 3.8 Chloride 109 H Carbon Dioxide 24.0 Anion Gap 10 BUN 19 H Creatinine 1.05 H Estim Creat Clear Calc 33.32 Est GFR (MDRD) Af Amer 65 Est GFR (MDRD) Non-Af 54 L BUN/Creatinine Ratio 18.1 Glucose 108 H Calcium 9.2 Troponin I 0.041 Triglycerides 149 Cholesterol 204 H LDL Cholesterol 132 H VLDL Cholesterol 30 HDL Cholesterol 42 11/06/17 04:45 WBC RBC Hgb Hct MCV MCH MCHC RDW RDW Differential Plt Count MPV Immature Gran % (Auto) Neut % (Auto) Lymph % (Auto) [place] % (Auto) Eos % (Auto) Baso % (Auto) Absolute Neuts (auto) Absolute Lymphs (auto) Total Counted PT INR APTT Sodium Potassium Chloride Carbon Dioxide Anion Gap BUN Creatinine Estim Creat Clear Calc Est GFR (MDRD) Af Amer Est GFR (MDRD) Non-Af BUN/Creatinine Ratio Glucose Calcium Troponin I 0.038 Triglycerides Cholesterol LDL Cholesterol VLDL Cholesterol HDL Cholesterol POC Glucose 11/05/17 21:03 POC Glucose 109 Assessment/Plan All Active Problems (Last Updated 04/09/17 @ 14:08 by Kendrick Godwin) Stroke (Acute) Hip hematoma, right (Acute) The patient is a 77 year old CF with PMH HTN, HLD admitted with acute onset right sided weakness, slurred speech and facial droop, she also had right sided sensory loss on admission. On admission NIHSS was 4-5 per ED documentation. She was a tpa candidate. CT head done on admission reported nothing acute. CTA head did not show any high grade stenosis but CTA neck not ordered by ED. MRI brain done on admission showed small to moderate acute left MCA stroke (left posterior putamen). Per patient she lives with her , denies any falls, does not use cane or walker to ambulate, and does not need any assistance for her ADLs. Takes ASA every other day at baseline. At present denies any FRANKS, visual disturbances, chest pain, fever, or palpitations, continues to have right sided weakness, speech is improving per patient. Found to have right upper thigh /hip hematoma, per patient she hit her hip when she was shifted to wheel chair from the car prior to coming to the ED. Impression Acute left MCA stroke (left posterior putamen stroke) Plan -MRI brain reviewed -MRA head/neck reviewed- await report -Check [address] head tonight. If no hemorrhage can start ASA 81 mg PO once daily after 24 hrs of tpa. -Acute right hip hematoma- further management and evaluation per ICU team and primary team. Check H&H -Frequent neuro checks -Permissive HTN for atleast 24 hrs, treat if SBP > 180 mmHg post tpa -Avoid hypotension -Check TTE, LDL, Hba1c -30 day event recorder as outpatient. -PT/OT/ST -GI/DVT prophylaxis. pharmacological DVT prophylaxis after 24 hrs tpa if okay with ICU team -Fall precautions -Further medical management per primary team/ICU team -Neurology followup in 2-3 weeks after discharge -Please call with questions if any -Thank you for allowing us to participate in patient's care and management I spent 60 minutes of critical care time taking history, doing physical examination, reviewing medical records, coordinating care and counseling the patient and her son. Code Visit Inpatient E&M: [id number] Init Hosp L3
[2017-11-06 15:06] LABS: Hematocrit 38.3 % (37-47); Hemoglobin 13.1 g/dl (12.0-15.0)
[2017-11-06 15:26] LABS: Hemoglobin A1c 5.7 % (4.2-6.3)
[2017-11-06] MEDS: Atorvastatin Calcium 40 MG Tablet PO (20:33)
--- NOTE | 2017-11-06 22:30 | CT_ITS ---
STUDY: CT BRAIN WITHOUT CONTRAST REASON FOR EXAM: Female, 77 years old. Subacute lacunar ischemic infarct left posterior putamen status post TPA 11/05. RADIATION DOSAGE (If Supplied By Facility): CTDIvol = ( 44.99 ) mGy, DLP = ( 779.24 ) mGycm TECHNIQUE: Transaxial CT imaging of the brain was performed without administration of intravenous contrast material. Individualized dose optimization techniques were used for this CT. COMPARISON: MRI brain 11/06/2017. FINDINGS: Normal soft tissue structures. Normal calvarium. There is mild cerebral atrophy with widening of the extra-axial spaces and ventricular dilatation. Normal white matter tracts of the cerebral hemispheres. Normal brainstem. Normal cerebellum. Hypodensity in the left putamen is identified, corresponding to the MR finding. There is no acute hemorrhage. Normal visualized paranasal sinuses. CT/Brain/Head without Contrast IMPRESSION: 1. Left basal ganglia lacunar infarct. No hemorrhage. Electronically Signed: Luli Cantor MD at 22:47 EDT Tel , Service support ,
[2017-11-07] VITALS (22 sets, daily range): BP systolic 130–195; BP diastolic 70–97; PULSE 62–90; RESP 16–20; TEMP 36.4–37; O2SAT 94–98; BMI 29.7
[2017-11-07 05:35] LABS: Absolute Lymphocyte Count 2.83 X10^3/ul (0.83-4.51); Absolute Neutrophil Count 5.4 X10^3/uL (2.0-7.7); Basophil# 0.05 X10^3/uL; Basophil% 0.5 % (0-1); Eosinophils% 3.2 % (0-5); Hematocrit 38.1 % (37-47); Hemoglobin 12.8 g/dl (12.0-15.0); Lymphocyte # 2.83 X10^3/ul (4.0); Lymphocyte % 30.2 % (19-41); Mean Corp Hgb Conc 33.6 g/gl (32-36); Mean Corpuscular Volume 89.4 fL (81-99); Mean Platelet Vol. 9.9 fl (6.2-12.0); Monocyte# 0.76 X10^3/uL; Monocyte% 8.1 % (0-10); Neutrophil # 5.42 X10^3/uL (2.7-7.7); Neutrophil % 57.8 % (47-70); Platelet Count 274 K/mm3 (150-450); RBC Distribution Width SD 41.9 fl (35.1-43.9); Red Blood Count 4.26 M/mm3 (4.2-5.4); White Blood Count 9.4 K/mm3 (4.4-11.0)
[2017-11-07 05:38] LABS: Anion Gap 7 (5-15); BUN 15 mg/dL (7-18); BUN/Creat Ratio 16.9 RATIO (10-20); Calcium,Total 9.7 mg/dL (8.5-10.1); Chloride 109 mmol/L (98-107); Creatinine, Serum 0.89 mg/dL (0.55-1.02); EST Glomerular Filtration Rate 65 mL/min (>60); Est Glom Filt Rate - Afr Amer 79 mL/min (>60); Estimated Creatinine Clearance 39.31 ml/min; Glucose 99 mg/dL (74-106); Potassium 4.2 mmol/L (3.5-5.1); Sodium Level 141 mmol/L (136-145)
[2017-11-07 05:44] LABS: POSITIVE COUNT NO; POSITIVE DIFFERENTIAL NO; POSITIVE MORPHOLOGY NO
--- NOTE | 2017-11-07 06:43 | PCM.PN.INT ---
Subjective: Patient with elevated blood pressures overnight. Patient did receive labetalol. Patient had a CT scan showing no acute bleed, but a left basal ganglia stroke. Patient has been protecting her airway and is 96% on room air. Patient reports she does see Dr. Ortiz as an outpatient secondary to hypertension and has had good response to her home medications in the past. General: Alert, Oriented x3, Cooperative, No apparent distress, Well developed, Well nourished, - - No scleral icterus or injection noted. HEENT: Atraumatic, PERRLA, EOMI, Normocephalic, - - Slight right facial droop. Oral: Moist Mucosa, No Gingival or Mucosal Lesions/ Ulcerations Neck: Supple, No JVD, No Nodes, Trachea Midline Lungs: Clear to auscultation, Normal air movement, No rhonchi, No wheeze, No rales Cardiovascular: Regular rate, Regular Rhythm, Normal S1, Normal S2, No murmurs, No rub noted, No Gallop Abdomen: Bowel Sounds Present, Soft, Non Tender, Non-Distended Extremities: No clubbing, No cyanosis, No edema, Capillary Refill Less than 3 Seconds Skin: No rashes, No breakdown Musculoskeletal: No Tenderness to Palpation of Joints or Extremities Lymphatic: No Cervical, Supraclavicular, or Inguinal Adenopathy Neurological: - - Right-sided sensation is intact. Patient does have paralysis of the right upper extremity. Decreased movement of the right lower extremity. Slight facial droop on the right noted. Speech appears to be improving. Psych/Mental Status: Alert and oriented to time, place, person, mood and affect Vital Signs Temp Pulse Resp BP Pulse Ox 36.8 C 71 18 172/80 H 97 11/07/17 04:00 11/07/17 06:00 11/07/17 06:00 11/07/17 06:00 11/07/17 06:00 Oxygen Flow Rate (L/min) 2 Oxygen Delivery Method Room Air Weight: 72.3 kg Body Mass Index (BMI) 29.7 Finger Stick Blood Glucose 109 Intake and Output for Last 24 Hours 11/05/17 11/06/17 11/07/17 23:59 23:59 23:59 Intake Total 1219 / 1219 120 / 120 Output Total 525 / 525 950 / 950 Balance 694 / 694 -830 / -830 Labs (Last 48 Hours) 11/05/17 11/05/17 11/05/17 21:03 21:05 21:05 WBC 10.0 RBC 4.65 Hgb 13.7 Hct 41.7 MCV 89.7 MCH 29.5 MCHC 32.9 RDW 13.1 RDW Differential 42.4 Plt Count 274 MPV 9.7 Immature Gran % (Auto) 0.100 Neut % (Auto) 45.1 L Lymph % (Auto) 41.5 H [place] % (Auto) 9.4 Eos % (Auto) 3.4 Baso % (Auto) 0.5 Absolute Neuts (auto) 4.5 Absolute Lymphs (auto) 4.16 Total Counted Not Reportable PT 12.6 INR 0.9 APTT 26.0 Sodium Potassium Chloride Carbon Dioxide Anion Gap BUN Creatinine Estim Creat Clear Calc Est GFR (MDRD) Af Amer Est GFR (MDRD) Non-Af BUN/Creatinine Ratio Glucose Hemoglobin A1c Calcium Troponin I Triglycerides Cholesterol LDL Cholesterol VLDL Cholesterol HDL Cholesterol POC Glucose 109 11/05/17 11/06/17 11/06/17 21:05 01:45 04:45 WBC 9.7 RBC 3.96 L Hgb 12.0 Hct 35.1 L MCV 88.6 MCH 30.3 MCHC 34.2 RDW 12.8 RDW Differential 40.8 Plt Count 238 MPV 9.9 Immature Gran % (Auto) Neut % (Auto) Lymph % (Auto) [place] % (Auto) Eos % (Auto) Baso % (Auto) Absolute Neuts (auto) Absolute Lymphs (auto) Total Counted PT INR APTT Sodium 139 Potassium 3.6 Chloride 104 Carbon Dioxide 28.0 Anion Gap 7 BUN 22 H Creatinine 1.18 H Estim Creat Clear Calc 31.08 Est GFR (MDRD) Af Amer 57 L Est GFR (MDRD) Non-Af 47 L BUN/Creatinine Ratio 18.6 Glucose 121 H Hemoglobin A1c Calcium 10.5 H Troponin I 0.032 0.041 Triglycerides Cholesterol LDL Cholesterol VLDL Cholesterol HDL Cholesterol POC Glucose 11/06/17 11/06/17 11/06/17 04:45 04:45 14:55 WBC RBC Hgb 13.1 Hct 38.3 MCV MCH MCHC RDW RDW Differential Plt Count MPV Immature Gran % (Auto) Neut % (Auto) Lymph % (Auto) [place] % (Auto) Eos % (Auto) Baso % (Auto) Absolute Neuts (auto) Absolute Lymphs (auto) Total Counted PT INR APTT Sodium 143 Potassium 3.8 Chloride 109 H Carbon Dioxide 24.0 Anion Gap 10 BUN 19 H Creatinine 1.05 H Estim Creat Clear Calc 33.32 Est GFR (MDRD) Af Amer 65 Est GFR (MDRD) Non-Af 54 L BUN/Creatinine Ratio 18.1 Glucose 108 H Hemoglobin A1c Calcium 9.2 Troponin I 0.038 Triglycerides 149 Cholesterol 204 H LDL Cholesterol 132 H VLDL Cholesterol 30 HDL Cholesterol 42 POC Glucose 11/06/17 11/07/17 11/07/17 14:55 05:15 05:15 WBC 9.4 RBC 4.26 Hgb 12.8 Hct 38.1 MCV 89.4 MCH 30.0 MCHC 33.6 RDW 13.0 RDW Differential 41.9 Plt Count 274 MPV 9.9 Immature Gran % (Auto) 0.200 Neut % (Auto) 57.8 Lymph % (Auto) 30.2 [place] % (Auto) 8.1 Eos % (Auto) 3.2 Baso % (Auto) 0.5 Absolute Neuts (auto) 5.4 Absolute Lymphs (auto) 2.83 Total Counted Not Reportable PT INR APTT Sodium 141 Potassium 4.2 Chloride 109 H Carbon Dioxide 25.0 Anion Gap 7 BUN 15 Creatinine 0.89 Estim Creat Clear Calc 39.31 Est GFR (MDRD) Af Amer 79 Est GFR (MDRD) Non-Af 65 BUN/Creatinine Ratio 16.9 Glucose 99 Hemoglobin A1c 5.7 Calcium 9.7 Troponin I Triglycerides Cholesterol LDL Cholesterol VLDL Cholesterol HDL Cholesterol POC Glucose Clinical Impression(s) from Imaging Studies Brain MRI 11/06/17 01:21 IMPRESSION: Subacute lacunar ischemic infarct in the left posterior putamen. Electronically Signed: Eric Henley MD at 10:21 EDT , Service support , Head MRA 11/06/17 01:21 IMPRESSION: Normal MRA of the head Electronically Signed: Eric Henley MD at 12:10 EDT , Service support , Neck MRA 11/06/17 01:21 IMPRESSION: Normal bilateral cervical carotid and vertebral arteries. Electronically Signed: Eric Henley MD at 10:23 EDT , Service support , Brain CT 11/06/17 22:30 IMPRESSION: 1. Left basal ganglia lacunar infarct. No hemorrhage. Electronically Signed: Luli Cantor MD at 22:47 EDT Tel , Service support , Medical Necessity - Tobacco Use Smoking Status: Never smoker Assessment/Plan All Active Problems (Last Updated 04/09/17 @ 14:08 by Kendrick Godwin) Stroke (Acute) Hip hematoma, right (Acute) RECOMMENDATIONS: 1. Reinitiate baseline antihypertensive medications 2. Continue to monitor hip hematoma clinically 3. PT/OT/ST evaluation and treat 4. Hemodynamically stable on room air. Will sign off from a critical care perspective 5. Okay to leave the intensive care unit from my perspective IMPRESSIONS: 1. Acute embolic CVA status post TPA Unfortunately, patient appears to have a lacunar infarct in the left basal ganglia. Patient currently has deficits, primarily on the right side. Patient's blood pressure is elevated, but was being treated with permissive hypertension secondary to CVA. Will reinitiate baseline medications. Patient has passed a swallow evaluation. Continue aspirin. Currently, patient is hemodynamically stable on room air. Will sign off from a critical care perspective. 2. Hypertensive urgency Patient with a history of high blood pressure in the past. Patient is reporting good response to p.o. medications in the past. We will restart patient's home medications and monitor for effect. Okay to leave the intensive care unit from my perspective. Code Visit Inpatient E&M: [id number] Subs Hosp L2
--- NOTE | 2017-11-07 06:47 | PN_ITS ---
Subjective: Patient with elevated blood pressures overnight. Patient did receive labetalol. Patient had a CT scan showing no acute bleed, but a left basal ganglia stroke. Patient has been protecting her airway and is 96% on room air. Patient reports she does see Dr. Ortiz as an outpatient secondary to hypertension and has had good response to her home medications in the past. General: Alert, Oriented x3, Cooperative, No apparent distress, Well developed, Well nourished, - - No scleral icterus or injection noted. HEENT: Atraumatic, PERRLA, EOMI, Normocephalic, - - Slight right facial droop. Oral: Moist Mucosa, No Gingival or Mucosal Lesions/ Ulcerations Neck: Supple, No JVD, No Nodes, Trachea Midline Lungs: Clear to auscultation, Normal air movement, No rhonchi, No wheeze, No rales Cardiovascular: Regular rate, Regular Rhythm, Normal S1, Normal S2, No murmurs, No rub noted, No Gallop Abdomen: Bowel Sounds Present, Soft, Non Tender, Non-Distended Extremities: No clubbing, No cyanosis, No edema, Capillary Refill Less than 3 Seconds Skin: No rashes, No breakdown Musculoskeletal: No Tenderness to Palpation of Joints or Extremities Lymphatic: No Cervical, Supraclavicular, or Inguinal Adenopathy Neurological: - - Right-sided sensation is intact. Patient does have paralysis of the right upper extremity. Decreased movement of the right lower extremity. Slight facial droop on the right noted. Speech appears to be improving. Psych/Mental Status: Alert and oriented to time, place, person, mood and affect Vital Signs Temp Pulse Resp BP Pulse Ox 36.8 C 71 18 172/80 H 97 11/07/17 04:00 11/07/17 06:00 11/07/17 06:00 11/07/17 06:00 11/07/17 06:00 Oxygen Flow Rate (L/min) 2 Oxygen Delivery Method Room Air Weight: 72.3 kg Body Mass Index (BMI) 29.7 Finger Stick Blood Glucose 109 Intake and Output for Last 24 Hours 11/05/17 11/06/17 11/07/17 23:59 23:59 23:59 Intake Total 1219 / 1219 120 / 120 Output Total 525 / 525 950 / 950 Balance 694 / 694 -830 / -830 Labs (Last 48 Hours) 11/05/17 11/05/17 11/05/17 21:03 21:05 21:05 WBC 10.0 RBC 4.65 Hgb 13.7 Hct 41.7 MCV 89.7 MCH 29.5 MCHC 32.9 RDW 13.1 RDW Differential 42.4 Plt Count 274 MPV 9.7 Immature Gran % (Auto) 0.100 Neut % (Auto) 45.1 L Lymph % (Auto) 41.5 H [place] % (Auto) 9.4 Eos % (Auto) 3.4 Baso % (Auto) 0.5 Absolute Neuts (auto) 4.5 Absolute Lymphs (auto) 4.16 Total Counted Not Reportable PT 12.6 INR 0.9 APTT 26.0 Sodium Potassium Chloride Carbon Dioxide Anion Gap BUN Creatinine Estim Creat Clear Calc Est GFR (MDRD) Af Amer Est GFR (MDRD) Non-Af BUN/Creatinine Ratio Glucose Hemoglobin A1c Calcium Troponin I Triglycerides Cholesterol LDL Cholesterol VLDL Cholesterol HDL Cholesterol POC Glucose 109 11/05/17 11/06/17 11/06/17 21:05 01:45 04:45 WBC 9.7 RBC 3.96 L Hgb 12.0 Hct 35.1 L MCV 88.6 MCH 30.3 MCHC 34.2 RDW 12.8 RDW Differential 40.8 Plt Count 238 MPV 9.9 Immature Gran % (Auto) Neut % (Auto) Lymph % (Auto) [place] % (Auto) Eos % (Auto) Baso % (Auto) Absolute Neuts (auto) Absolute Lymphs (auto) Total Counted PT INR APTT Sodium 139 Potassium 3.6 Chloride 104 Carbon Dioxide 28.0 Anion Gap 7 BUN 22 H Creatinine 1.18 H Estim Creat Clear Calc 31.08 Est GFR (MDRD) Af Amer 57 L Est GFR (MDRD) Non-Af 47 L BUN/Creatinine Ratio 18.6 Glucose 121 H Hemoglobin A1c Calcium 10.5 H Troponin I 0.032 0.041 Triglycerides Cholesterol LDL Cholesterol VLDL Cholesterol HDL Cholesterol POC Glucose 11/06/17 11/06/17 11/06/17 04:45 04:45 14:55 WBC RBC Hgb 13.1 Hct 38.3 MCV MCH MCHC RDW RDW Differential Plt Count MPV Immature Gran % (Auto) Neut % (Auto) Lymph % (Auto) [place] % (Auto) Eos % (Auto) Baso % (Auto) Absolute Neuts (auto) Absolute Lymphs (auto) Total Counted PT INR APTT Sodium 143 Potassium 3.8 Chloride 109 H Carbon Dioxide 24.0 Anion Gap 10 BUN 19 H Creatinine 1.05 H Estim Creat Clear Calc 33.32 Est GFR (MDRD) Af Amer 65 Est GFR (MDRD) Non-Af 54 L BUN/Creatinine Ratio 18.1 Glucose 108 H Hemoglobin A1c Calcium 9.2 Troponin I 0.038 Triglycerides 149 Cholesterol 204 H LDL Cholesterol 132 H VLDL Cholesterol 30 HDL Cholesterol 42 POC Glucose 11/06/17 11/07/17 11/07/17 14:55 05:15 05:15 WBC 9.4 RBC 4.26 Hgb 12.8 Hct 38.1 MCV 89.4 MCH 30.0 MCHC 33.6 RDW 13.0 RDW Differential 41.9 Plt Count 274 MPV 9.9 Immature Gran % (Auto) 0.200 Neut % (Auto) 57.8 Lymph % (Auto) 30.2 [place] % (Auto) 8.1 Eos % (Auto) 3.2 Baso % (Auto) 0.5 Absolute Neuts (auto) 5.4 Absolute Lymphs (auto) 2.83 Total Counted Not Reportable PT INR APTT Sodium 141 Potassium 4.2 Chloride 109 H Carbon Dioxide 25.0 Anion Gap 7 BUN 15 Creatinine 0.89 Estim Creat Clear Calc 39.31 Est GFR (MDRD) Af Amer 79 Est GFR (MDRD) Non-Af 65 BUN/Creatinine Ratio 16.9 Glucose 99 Hemoglobin A1c 5.7 Calcium 9.7 Troponin I Triglycerides Cholesterol LDL Cholesterol VLDL Cholesterol HDL Cholesterol POC Glucose Clinical Impression(s) from Imaging Studies Brain MRI 11/06/17 01:21 IMPRESSION: Subacute lacunar ischemic infarct in the left posterior putamen. Electronically Signed: Eric Henley MD at 10:21 EDT , Service support , Head MRA 11/06/17 01:21 IMPRESSION: Normal MRA of the head Electronically Signed: Eric Henley MD at 12:10 EDT , Service support , Neck MRA 11/06/17 01:21 IMPRESSION: Normal bilateral cervical carotid and vertebral arteries. Electronically Signed: Eric Henley MD at 10:23 EDT , Service support , Brain CT 11/06/17 22:30 IMPRESSION: 1. Left basal ganglia lacunar infarct. No hemorrhage. Electronically Signed: Luli Cantor MD at 22:47 EDT Tel , Service support , Medical Necessity - Tobacco Use Smoking Status: Never smoker Assessment/Plan All Active Problems (Last Updated 04/09/17 @ 14:08 by Kendrick Godwin) Stroke (Acute) Hip hematoma, right (Acute) RECOMMENDATIONS: 1. Reinitiate baseline antihypertensive medications 2. Continue to monitor hip hematoma clinically 3. PT/OT/ST evaluation and treat 4. Hemodynamically stable on room air. Will sign off from a critical care perspective 5. Okay to leave the intensive care unit from my perspective IMPRESSIONS: 1. Acute embolic CVA status post TPA Unfortunately, patient appears to have a lacunar infarct in the left basal ganglia. Patient currently has deficits, primarily on the right side. Patient's blood pressure is elevated, but was being treated with permissive hype rtension secondary to CVA. Will reinitiate baseline medications. Patient has passed a swallow evaluation. Continue aspirin. Currently, patient is hemodynamically stable on room air. Will sign off from a critical care perspective. 2. Hypertensive urgency Patient with a history of high blood pressure in the past. Patient is reporting good response to p.o. medications in the past. We will restart patient's home medications and monitor for effect. Okay to leave the intensive care unit from my perspective. Code Visit Inpatient E&M: 20409 Subs Hosp L2
[2017-11-07] MEDS: Aspirin 81 MG TAB.CHEW PO (06:58)
[2017-11-07] MEDS: Losartan Potassium 100 MG Tablet PO (08:01)
[2017-11-07] MEDS: Chlorthalidone 50 MG Tablet 25 MG PO (08:01)
--- NOTE | 2017-11-07 09:57 | PN.NEURO_ITS ---
Patient Problems: Active and Suspected Problems (Last Updated 04/09/17 @ 14:08 by Kendrick Godwin) Stroke (Acute) Hip hematoma, right (Acute) Subjective: No overnight issues. Discussed with nursing and ICU staff. - Physical Exam General: Alert HEENT: Normocephalic Neck: Supple Lungs: Normal air movement Cardiovascular: Normal S1, Normal S2 Abdomen: Bowel Sounds Present Extremities: No cyanosis Neurological: - - onsious, alert, CN 2-12 grossly intact except mild right UMN facial palsy, Power Right UE 1/5, LE 3/5, Left UE/LE-5/5, mild sensory loss right UE/LE, no extinction, no cerebellar signs left side, Reflexes + B/L B/S/T/K/A, gait deferred, mild dysarthria. NIHSS 7 at present, mRS 0 at baseline. Psych/Mental Status: Normal Affect Vital Signs Temp Pulse Resp BP Pulse Ox 98.6 F 80 16 177/86 H 97 11/07/17 08:00 11/07/17 09:00 11/07/17 09:00 11/07/17 09:00 11/07/17 09:00 Oxygen Flow Rate (L/min) 2 Oxygen Delivery Method Room Air Weight: 72.3 kg Body Mass Index (BMI) 29.7 Finger Stick Blood Glucose 109 Intake and Output for Last 24 Hours 11/05/17 11/06/17 11/07/17 23:59 23:59 23:59 Intake Total 1219 / 1219 120 / 120 Output Total 525 / 525 1900 / 1900 Balance 694 / 694 -1780 / -1780 Laboratory Tests Past 24 Hrs 11/06/17 11/06/17 11/07/17 14:55 14:55 05:15 WBC 9.4 RBC 4.26 Hgb 13.1 12.8 Hct 38.3 38.1 MCV 89.4 MCH 30.0 MCHC 33.6 RDW 13.0 RDW Differential 41.9 Plt Count 274 MPV 9.9 Immature Gran % (Auto) 0.200 Neut % (Auto) 57.8 Lymph % (Auto) 30.2 [place] % (Auto) 8.1 Eos % (Auto) 3.2 Baso % (Auto) 0.5 Absolute Neuts (auto) 5.4 Absolute Lymphs (auto) 2.83 Total Counted Not Reportable Sodium Potassium Chloride Carbon Dioxide Anion Gap BUN Creatinine Estim Creat Clear Calc Est GFR (MDRD) Af Amer Est GFR (MDRD) Non-Af BUN/Creatinine Ratio Glucose Hemoglobin A1c 5.7 Calcium 11/07/17 05:15 WBC RBC Hgb Hct MCV MCH MCHC RDW RDW Differential Plt Count MPV Immature Gran % (Auto) Neut % (Auto) Lymph % (Auto) [place] % (Auto) Eos % (Auto) Baso % (Auto) Absolute Neuts (auto) Absolute Lymphs (auto) Total Counted Sodium 141 Potassium 4.2 Chloride 109 H Carbon Dioxide 25.0 Anion Gap 7 BUN 15 Creatinine 0.89 Estim Creat Clear Calc 39.31 Est GFR (MDRD) Af Amer 79 Est GFR (MDRD) Non-Af 65 BUN/Creatinine Ratio 16.9 Glucose 99 Hemoglobin A1c Calcium 9.7 Medical Necessity - Tobacco Use Smoking Status: Never smoker Assessment/Plan All Active Problems (Last Updated 04/09/17 @ 14:08 by Kendrick Godwin) Stroke (Acute) Hip hematoma, right (Acute) The patient is a 77 year old CF with PMH HTN, HLD admitted with acute onset right sided weakness, slurred speech and facial droop, she also had right sided sensory loss on admission. On admission NIHSS was 4-5 per ED documentation. She was a tpa candidate. CT head done on admission reported nothing acute. CTA head did not show any high grade stenosis but CTA neck not ordered by ED. MRI brain done on admission showed small to moderate acute left MCA stroke (left posterior putamen). Per patient she lives with her , denies any falls, does not use cane or walker to ambulate, and does not need any assistance for her ADLs. Takes ASA every other day at baseline. At present denies any FRANKS, visual disturbances, chest pain, fever, or palpitations, continues to have right sided weakness, speech is improving per patient. Found to have right upper thigh /hip hematoma, per patient she hit her hip when she was shifted to wheel chair from the car prior to coming to the ED. Impression Acute left MCA stroke (left posterior putamen stroke) Plan -MRI brain reviewed -MRA head/neck reviewed-normal carotids -[address] head- no hemorrhage -ASA 81 mg PO once daily -Lipitor 40 mg PO q hs. -Acute right hip hematoma- further management and evaluation per ICU team and primary team. Check H&H -Frequent neuro checks -Permissive HTN for atleast 24 hrs, treat if SBP > 180 mmHg post tpa -Goal BP < 130/80 mmHg and goal Hba1c <7% -Avoid hypotension -Check TTE, LDL-132, Avw8j-1.7% -30 day event recorder as outpatient. -PT/OT/ST -GI/DVT prophylaxis. -Fall precautions -Further medical management per primary team/ICU team -Neurology followup in 2-3 weeks after discharge -Please call with questions if any -Thank you for allowing us to participate in patient's care and management I spent 30 minutes of critical care time taking history, doing physical examination, reviewing medical records, coordinating care and counseling the patient and her son.
--- NOTE | 2017-11-07 10:02 | PCM.PN.HOSP ---
Patient Problems: Active and Suspected Problems (Last Updated 04/09/17 @ 14:08 by Kendrick Godwin) Stroke (Acute) Hip hematoma, right (Acute) Vitals/I&O's: Vital Signs Temp Pulse Resp BP Pulse Ox 98.6 F 80 16 177/86 H 97 11/07/17 08:00 11/07/17 09:00 11/07/17 09:00 11/07/17 09:00 11/07/17 09:00 Oxygen Flow Rate (L/min) 2 Oxygen Delivery Method Room Air Weight: 159 lb 6.307 oz Body Mass Index (BMI) 29.7 Finger Stick Blood Glucose 109 Intake and Output for Last 24 Hours 11/05/17 11/06/17 11/07/17 23:59 23:59 23:59 Intake Total 1219 / 1219 120 / 120 Output Total 525 / 525 1900 / 1900 Balance 694 / 694 -1780 / -1780 General: Alert, Oriented x3, Cooperative HEENT: Atraumatic, PERRLA, EOMI, Normocephalic Neck: Supple, No JVD, Negative Carotid Bruits Lungs: Clear to auscultation, Normal air movement Cardiovascular: Regular rate, Normal S1, Normal S2, No murmurs Abdomen: Bowel Sounds Present, Soft, Non Tender, Non-Distended Extremities: Capillary Refill Less than 3 Seconds, Edema Skin: No rashes, No breakdown, - - Small hematoma at lateral aspect of left hip. Hematoma is soft and as per the nursing staff, improving Musculoskeletal: No Tenderness to Palpation of Joints or Extremities Neurological: Cranial nerves II-XII grossly intact, - - Mild dysarthia which has improved. Right upper extremity weakness 1/5. Right lower extremity 3+/5. Left upper extremity normal. Psych/Mental Status: Normal Affect, Appropriate Laboratory Results 11/06/17 14:55: Hgb 13.1, Hct 38.3 11/06/17 14:55: Hemoglobin A1c 5.7 11/07/17 05:15: WBC 9.4, RBC 4.26, Hgb 12.8, Hct 38.1, MCV 89.4, MCH 30.0, MCHC 33.6, RDW 13.0, RDW Differential 41.9, Plt Count 274, MPV 9.9, Immature Gran % (Auto) 0.200, Neut % (Auto) 57.8, Lymph % (Auto) 30.2, [place] % (Auto) 8.1, Eos % (Auto) 3.2, Baso % (Auto) 0.5, Absolute Neuts (auto) 5.4, Absolute Lymphs (auto) 2.83, Total Counted Not Reportable 11/07/17 05:15: Sodium 141, Potassium 4.2, Chloride 109 H, Carbon Dioxide 25.0, Anion Gap 7, BUN 15, Creatinine 0.89, Estim Creat Clear Calc 39.31, Est GFR (MDRD) Af Amer 79, Est GFR (MDRD) Non-Af 65, BUN/Creatinine Ratio 16.9, Glucose 99, Calcium 9.7 Current Medications Aspirin (Aspirin, Baby) 81 mg PO DAILY [facility] Last Admin: 11/07/17 09:32 Dose: Not Given Atorvastatin Calcium (Lipitor) 40 mg PO QHS [facility] Chlorthalidone (Hygroton) 25 mg PO DAILY [facility] Last Admin: 11/07/17 08:01 Dose: 25 mg Enoxaparin Sodium (Lovenox) 40 mg SC DAILY [facility] Losartan Potassium (Cozaar) 100 mg PO DAILY [facility] Last Admin: 11/07/17 08:01 Dose: 100 mg Magnesium Hydroxide (Milk Of Magnesia) 30 ml PO DAILY PRN PRN PRN Reason: Constipation Sodium Chloride () 5 - 30 ml IV UD PRN PRN Reason: SALINE FLUSH Last Admin: 11/06/17 22:50 Dose: 10 ml Medical Necessity - Tobacco Use Smoking Status: Never smoker Assessment/Plan All Active Problems (Last Updated 04/09/17 @ 14:08 by Kendrick Godwin) Stroke (Acute) Hip hematoma, right (Acute) This is a 77-year-old female with history of hypertension, dyslipidemia, febrile myalgia was admitted with right-sided weakness and sensory loss, slurred speech and facial droop consistent with left MCA stroke. Furthermore CT head at that time did not show any hemorrhage and so patient was given rtPA for ischemic stroke. Assessment and plan 1 Acute left MCA (left posterior putamen) ischemic stroke: Currently, patient is being admitted in patient had MRI in the morning ICU after TPA. MRI brain shows subacute lacunar ischemic infarct in the left posterior putamen. Head CT shows bilateral posterior cerebral arteries small in caliber greater on the right. No focal high-grade stenosis or occlusion. No aneurysm of [place] of [place]. Patient is scheduled for 24 hour post-TPA CT head tonight. If no humerus found, will start on aspirin 81 mg once daily. Continue NIH stroke scale as per protocol. On statin. BP and glucose control as per stroke guidelines with permissive hypertension for 24 hours post TPA. Neurologist consult reviewed and appreciated. Advised 30 day event monitor as an outpatient. PT/OT and speech of aggression. A1c 5.7. 2. Acute hematoma on the right hip status post TPA: Hematoma site has not grown bigger. Probing. New monitor. No retroperitoneal extension. 3. Hypertension: As mentioned above will maintain permissive hypertension. We will keep the blood pressure around systolic 150 and diastolic between 80-90. Treat with labetalol 10 mg IV if systolic blood pressure more than 180. 4. Dyslipidemia: Fasting lipid profile shows total cholesterol 204, LDL 132, triglyceride 149, HDL 42. Patient said she has myalgia on Crestor before and she felt like her whole body is aching and had abdominal surgery. Of note, she also has fibromyalgia generalized aches and pains. She was given prescription of Pitavstatin, dose unclear. Significance of statin and maintaining good cholesterol control was emphasized to the patient in presence of her . Patient agrees on atorvastatin 40 mg daily. Code Visit Inpatient E&M: 43419 Subs Hosp L3
--- NOTE | 2017-11-07 10:08 | PN_ITS ---
Patient Problems: Active and Suspected Problems (Last Updated 04/09/17 @ 14:08 by Kendrick Godwin) Stroke (Acute) Hip hematoma, right (Acute) Vitals/I&O's: Vital Signs Temp Pulse Resp BP Pulse Ox 98.6 F 80 16 177/86 H 97 11/07/17 08:00 11/07/17 09:00 11/07/17 09:00 11/07/17 09:00 11/07/17 09:00 Oxygen Flow Rate (L/min) 2 Oxygen Delivery Method Room Air Weight: 159 lb 6.307 oz Body Mass Index (BMI) 29.7 Finger Stick Blood Glucose 109 Intake and Output for Last 24 Hours 11/05/17 11/06/17 11/07/17 23:59 23:59 23:59 Intake Total 1219 / 1219 120 / 120 Output Total 525 / 525 1900 / 1900 Balance 694 / 694 -1780 / -1780 General: Alert, Oriented x3, Cooperative HEENT: Atraumatic, PERRLA, EOMI, Normocephalic Neck: Supple, No JVD, Negative Carotid Bruits Lungs: Clear to auscultation, Normal air movement Cardiovascular: Regular rate, Normal S1, Normal S2, No murmurs Abdomen: Bowel Sounds Present, Soft, Non Tender, Non-Distended Extremities: Capillary Refill Less than 3 Seconds, Edema Skin: No rashes, No breakdown, - - Small hematoma at lateral aspect of left hip. Hematoma is soft and as per the nursing staff, improving Musculoskeletal: No Tenderness to Palpation of Joints or Extremities Neurological: Cranial nerves II-XII grossly intact, - - Mild dysarthia which has improved. Right upper extremity weakness 1/5. Right lower extremity 3+/5. Left upper extremity normal. Psych/Mental Status: Normal Affect, Appropriate Laboratory Results 11/06/17 14:55: Hgb 13.1, Hct 38.3 11/06/17 14:55: Hemoglobin A1c 5.7 11/07/17 05:15: WBC 9.4, RBC 4.26, Hgb 12.8, Hct 38.1, MCV 89.4, MCH 30.0, MCHC 33.6, RDW 13.0, RDW Differential 41.9, Plt Count 274, MPV 9.9, Immature Gran % (Auto) 0.200, Neut % (Auto) 57.8, Lymph % (Auto) 30.2, [place] % (Auto) 8.1, Eos % (Auto) 3.2, Baso % (Auto) 0.5, Absolute Neuts (auto) 5.4, Absolute Lymphs (auto) 2.83, Total Counted Not Reportable 11/07/17 05:15: Sodium 141, Potassium 4.2, Chloride 109 H, Carbon Dioxide 25.0, Anion Gap 7, BUN 15, Creatinine 0.89, Estim Creat Clear Calc 39.31, Est GFR (MDRD) Af Amer 79, Est GFR (MDRD) Non-Af 65, BUN/Creatinine Ratio 16.9, Glucose 99, Calcium 9.7 Current Medications Aspirin (Aspirin, Baby) 81 mg PO DAILY [facility] Last Admin: 11/07/17 09:32 Dose: Not Given Atorvastatin Calcium (Lipitor) 40 mg PO QHS [facility] Chlorthalidone (Hygroton) 25 mg PO DAILY [facility] Last Admin: 11/07/17 08:01 Dose: 25 mg Enoxaparin Sodium (Lovenox) 40 mg SC DAILY [facility] Losartan Potassium (Cozaar) 100 mg PO DAILY [facility] Last Admin: 11/07/17 08:01 Dose: 100 mg Magnesium Hydroxide (Milk Of Magnesia) 30 ml PO DAILY PRN PRN PRN Reason: Constipation Sodium Chloride () 5 - 30 ml IV UD PRN PRN Reason: SALINE FLUSH Last Admin: 11/06/17 22:50 Dose: 10 ml Medical Necessity - Tobacco Use Smoking Status: Never smoker Assessment/Plan All Active Problems (Last Updated 04/09/17 @ 14:08 by Kendrick Godwin) Stroke (Acute) Hip hematoma, right (Acute) This is a 77-year-old female with history of hypertension, dyslipidemia, febrile myalgia was admitted with right-sided weakness and sensory loss, slurred speech and facial droop consistent with left MCA stroke. Furthermore CT head at that time did not show any hemorrhage and so patient was given rtPA for ischemic stroke. Assessment and plan 1 Acute left MCA (left posterior putamen) ischemic stroke: Currently, patient is being admitted in patient had MRI in the morning ICU after TPA. MRI brain shows subacute lacunar ischemic infarct in the left posterior putamen. Head CT shows bilateral posterior cerebral arteries small in caliber greater on the right. No focal high-grade stenosis or occlusion. No aneurysm of [place] of [place]. Patient is scheduled for 24 hour post-TPA CT head tonight. If no humerus found, will start on aspirin 81 mg once daily. Continue NIH stroke scale as per protocol. On statin. BP and glucose control as per stroke guidelines with permissive hypertension for 24 hours post TPA. Neurologist consult reviewed and appreciated. Advised 30 day event monitor as an outpatient. PT/OT and speech of aggression. A1c 5.7. 2. Acute hematoma on the right hip status post TPA: Hematoma site has not grown bigger. Probing. New monitor. No retroperitoneal extension. 3. Hypertension: As mentioned above will maintain permissive hypertension. We will keep the blood pressure around systolic 150 and diastolic between 80-90. Treat with labetalol 10 mg IV if systolic blood pressure more than 180. 4. Dyslipidemia: Fasting lipid profile shows total cholesterol 204, LDL 132, triglyceride 149, HDL 42. Patient said she has myalgia on Crestor before and she felt like her whole body is aching and had abdominal surgery. Of note, she also has fibromyalgia generalized aches and pains. She was given prescription of Pitavstatin, dose unclear. Significance of statin and maintaining good cholesterol control was emphasized to the patient in presence of her . Patient agrees on atorvastatin 40 mg daily. Code Visit Inpatient E&M: 41881 Subs Hosp L3
[2017-11-07] MEDS: Enoxaparin 40 MG/0.4 ML Syringe SC (10:18)
--- NOTE | 2017-11-07 10:47 | CASEMGMT ---
SW participated in ICU rounds this morning, pt's present. SW spoke w/[facility] in rehab, pt is accepted and they will be able to take pt tomorrow. SW let pt and know pt is accepted and can go to rehab tomorrow, most likely. Pt and agreeable. SW will continue to follow for discharge to rehab when appropriate. RAUDEL Neal, FUELS ENGINEER
--- NOTE | 2017-11-07 11:15 | NURSING ---
Bedside NIH done w/FABIOLA Mcnamara.
[2017-11-07] MEDS: Atorvastatin Calcium 40 MG Tablet PO (20:59)
[2017-11-07] MEDS: 0.9% NaCl Peripheral Flush Adult/Peds IV (21:08)
[2017-11-08] VITALS (7 sets, daily range): BP systolic 150–191; BP diastolic 78–82; PULSE 65–82; RESP 14–18; TEMP 36.4–36.8; O2SAT 94–100; BMI 29.7
[2017-11-08] MEDS: Aspirin 81 MG TAB.CHEW PO (09:27)
[2017-11-08] MEDS: Losartan Potassium 100 MG Tablet PO (09:27)
[2017-11-08] MEDS: Enoxaparin 40 MG/0.4 ML Syringe SC (09:27)
[2017-11-08] MEDS: Chlorthalidone 50 MG Tablet 25 MG PO (09:27)
--- NOTE | 2017-11-08 09:57 | DCINST_ITS ---
- Discharge Diagnoses Current Active Problems: Current Active and Chronic Problems (Last Updated 04/09/17 @ 14:08 by Kendrick Godwin) Stroke (Acute) Hip hematoma, right (Acute) You will use the following diet at home:: Cardiac Discharge Activity: May Not Drive Call your doctor if you observe: Fever of 101 or Higher, Inability to have a bowel movement, Shortness of breath, Dizziness, Fainting spells Allergies/Adverse Reactions: Allergies adhesive tape Allergy (Verified 11/05/17 20:56) Other BLISTERS valsartan Allergy (Verified 06/18/17 09:21) Rash amlodipine Adverse Reaction (Verified 06/18/17 09:21) Other DIZZY, SHAKES enalaprilat [From Vasotec] Adverse Reaction (Verified 06/18/17 09:21) Other DRY COUGH minoxidil Adverse Reaction (Verified 06/18/17 09:21) Other SWELLING ANKLES, HANDS SHAKE risedronate sodium [From Actonel] Adverse Reaction (Verified 06/18/17 09:21) Other Medications to take at Discharge cholecalciferol (vitamin D3) 50,000 unit capsule 50,000 unit PO MONTHLY cap 04/09/17 dexlansoprazole 60 mg capsule,biphase delayed release 60 mg PO PRN PRN 04/09/17 losartan 100 mg tablet 100 mg PO ONCE tab 04/09/17 Multivitamin [Daily Multiple Vitamin] 1 each PO DAILY 04/24/17 tramadol 50 mg tablet See Rx Instructions PO Q6H PRN #40 tab 05/14/17 Aspirin E.C. [Ecotrin] 81 mg PO DAILY@0800 11/05/17 Chlorthalidone 25 mg PO DAILY 11/05/17 Atorvastatin Calcium [Lipitor] 40 mg PO QHS #0 tablet 11/08/17 Chlorthalidone [Hygroton] 25 mg PO DAILY tablet 11/08/17 Losartan Potassium [Cozaar] 100 mg PO DAILY tablet 11/08/17 Primary Care Physician: Brandon March Chi, MD [Primary Care Provider] - Test Results: Test results from this visit will be discussed in further detail at your follow- up appointment, if applicable. Please Follow Up With: Lona Cornejo MD
--- NOTE | 2017-11-08 09:58 | PCM.DC.SUM ---
Discharge Date and Diagnosis Date of Admission: 11/06/17 Date of Discharge: 11/08/17 - Primary Discharge Diagnosis Active and Suspected Problems (Last Updated 04/09/17 @ 14:08 by Kendrick Godwin) Stroke (Acute) Hip hematoma, right (Acute) Acute left MCA (left posterior putamen) ischemic stroke: 2. Acute hematoma on the right hip status post TPA - Secondary Discharge Diagnosis Chronic Problems (Last Updated 04/09/17 @ 14:08 by Kendrick Godwin) Status post total left knee replacement (Chronic) Cataract (Chronic) Hypertension (Chronic) Hospital Course and Treatment Summary of Care Provided: [] This is a 77-year-old female with history of hypertension, dyslipidemia, febrile myalgia was admitted with right-sided weakness and sensory loss, slurred speech and facial droop consistent with left MCA stroke. Furthermore CT head at that time did not show any hemorrhage and so patient was given rtPA for ischemic stroke. General: Alert, Oriented x3, Cooperative HEENT: Atraumatic, PERRLA, EOMI, Normocephalic Neck: Supple, No JVD, Negative Carotid Bruits Lungs: Clear to auscultation, Normal air movement Cardiovascular: Regular rate, Normal S1, Normal S2, No murmurs Abdomen: Bowel Sounds Present, Soft, Non Tender, Non-Distended Extremities: Capillary Refill Less than 3 Seconds, Edema Skin: No rashes, No breakdown, - - Small hematoma at lateral aspect of left hip. Hematoma is soft and improved Musculoskeletal: No Tenderness to Palpation of Joints or Extremities Neurological: Cranial nerves II-XII grossly intact, - - Mild dysarthia which has improved. Right upper extremity weakness 4/5. Right lower extremity 4/5. Left upper and lower extremity normal. Psych/Mental Status: Normal Affect, Appropriate Assessment and plan 1 Acute left MCA (left posterior putamen) ischemic stroke: Currently, patient is being admitted in patient had MRI in the morning ICU after TPA. MRI brain shows subacute lacunar ischemic infarct in the left posterior putamen. Head CT shows bilateral posterior cerebral arteries small in caliber greater on the right. No focal high-grade stenosis or occlusion. No aneurysm of [place] of [place]. Patient had repeat CT head which does not show bleed after 24 hours rtPA did not show bleed. Thereafter, was started on aspirin 81 mg once daily. Patient had NIH stroke scale as per protocol. On statin. BP and glucose control as per stroke guidelines Neurologist consult reviewed and appreciated. Advised 30 day event monitor as an outpatient. PT/OT and speech therapy A1c 5.7. 2. Acute hematoma on the right hip status post TPA: Hematoma site has not grown bigger. Improved and almost resolved no retroperitoneal extension. 3. Hypertension: As mentioned above will maintain permissive hypertension. We will keep the blood pressure around systolic 150 and diastolic between 80-90. Treat with labetalol 10 mg IV if systolic blood pressure more than 180. 4. Dyslipidemia: Fasting lipid profile shows total cholesterol 204, LDL 132, triglyceride 149, HDL 42. Patient said she has myalgia on Crestor but patient is tolerating atorvastatin 40 mg daily for last 2 days. Medication reconciliation done. Discharge follow-up instructions completed. Patient is being discharged to acute rehab. Total time spent, exact 35 minutes on discharge meds reconciliation, examination, review of imaging and blood test and discussion with the patient on follow-up instructions. Discharge Activity: May Not Drive Call your doctor if you observe: Fever of 101 or Higher, Inability to have a bowel movement, Shortness of breath, Dizziness, Fainting spells Home Medications: Medications to take at Discharge cholecalciferol (vitamin D3) 50,000 unit capsule 50,000 unit PO MONTHLY cap 04/09/17 dexlansoprazole 60 mg capsule,biphase delayed release 60 mg PO PRN PRN 04/09/17 losartan 100 mg tablet 100 mg PO ONCE tab 04/09/17 Multivitamin [Daily Multiple Vitamin] 1 each PO DAILY 04/24/17 tramadol 50 mg tablet See Rx Instructions PO Q6H PRN #40 tab 05/14/17 Aspirin E.C. [Ecotrin] 81 mg PO DAILY@0800 11/05/17 Chlorthalidone 25 mg PO DAILY 11/05/17 Atorvastatin Calcium [Lipitor] 40 mg PO QHS #0 tablet 11/08/17 Chlorthalidone [Hygroton] 25 mg PO DAILY tablet 11/08/17 Losartan Potassium [Cozaar] 100 mg PO DAILY tablet 11/08/17 Primary Care Physician: Brandon March Chi, MD [Primary Care Provider] - Please Follow Up With: Lona Cornejo MD Medical Necessity - Tobacco Use Smoking Status: Never smoker Meaningful Use Info Meaningful Use Diagnoses (Choose all that apply): Ischemic CVA - CVA Therapy Assessed for PT,OT and/or ST?: Yes - Ischemic Stroke Antithrombotic order at d/c?: Yes Dx of Atrial fib/flutter?: No Anticoagulant at discharge?: Yes Statins at discharge?: Yes Primary Dx Acute Ischemic CVA?: Yes IV tPA ordered during stay?: Yes
--- NOTE | 2017-11-08 10:15 | CASEMGMT ---
Social Work Pt ready for d/c today. SW met with pt and spouse and informed of d/c to inpt rehab today. Pt is agreeable to d/c. Destiny in Inpt rehab notified of d/c today. No further d/c needs. Plan: [facility] inpt Rehab today. LORELEI Harman
--- NOTE | 2017-11-08 11:20 | NURSING ---
report called to inpt rehab Shirley HICKS
== END 2017-11-08 13:29 | DRG 62 ==
LOC: ED 11-06 00:44 → ICU 11-06 01:06 → PCU 11-07 11:06
PROVIDERS: Internal Medicine Critical Care Medicine; Psychiatry & Neurology Neurology; Admitting Provider Family Medicine; Emergency Provider Emergency Medicine; Family Provider Family Medicine Geriatric Medicine; PCP Family Medicine Geriatric Medicine; Visit Provider Internal Medicine
DX: I63.512 Cerebral infarction due to unspecified occlusion or stenosis of left middle cerebral artery (principal); G81.01 Flaccid hemiplegia affecting right dominant side; R29.810 Facial weakness; R29.705 NIHSS score 5; I10 Essential (primary) hypertension; H26.9 Unspecified cataract; S70.01XA Contusion of right hip, initial encounter; E78.5 Hyperlipidemia, unspecified; R47.1 Dysarthria and anarthria
CPT/HCPCS: 36415; 70450; 70496; 70544; 70547; 70551; 71045; 80048; 80061; 82962; 83036; 84484; 85014; 85018; 85025; 85027; 85610; 85730; 92507; 92523; 93005; 97162; 97166; 99283; J2997; J7030; Q9967; A4216; J3490

== ENCOUNTER 2017-11-08 13:40 | Inpatient (IN) | payer MEDICARE, OTHER, SELFPAY ==
[2017-11-08 13:51] VITALS: BP 161/78; PULSE 77; RESP 18; TEMP 36.4; O2SAT 96; BMI 28.1; BMI 28.2
--- NOTE | 2017-11-08 15:24 | PCM.HP.COS ---
History of Present Illness Date of Admission: 11/08/17 Chief Complaint: CVA The patient is a 77 year old right handed female who was admitted to the rehab unit for rehabilitation after suffering a small to moderate left MCA infarct. She has a PMH of HTN, HLD she was admitted with acute onset right sided weakness, slurred speech and facial droop, she also had right sided sensory loss on admission. On admission NIHSS was 4-5 per ED documentation. She was a tPA candidate and received a bolus treatment, with some improvement noted. CT head done on admission reported nothing acute. CTA head did not show any high grade stenosis but CTA neck not ordered by ED. MRI brain done on admission showed small to moderate acute left MCA stroke (left posterior putamen). Right sided weakness is improving she is able to raise her right arm and wiggle her fore finger and middle finger. Speech is clear and is back to base line per patient. On admission she was found to have a right upper thigh /hip hematoma, which is improving, per patient she hit her hip when she was shifted to wheel chair from the car prior to coming to the ED. She lives with her spouse, in a 2 story home with her bedroom on the second floor, she has about 12 to 13 steps to get to her bedroom. To get into the home there is 3 steps thru the back door to get into the house. She was on a baby ASA every other day. She was able to do all her on ADLs, she did not require an assistive device at baseline to ambulate. She was previously completely functionally independent and is admitted to the rehab unit in order to restore her previous level of functional independence. Per admission H&P: The patient is a 77 year old female patient presents to the ER with acute stroke symptoms. She was exercising at the [facility] at 7:00 pm this evening at the time of onset. She was walking the track and then using the rowing machine. She had to sit down on a bench there as her right leg started to become weak along with some dizziness. She managed to get to her car with her spouse and went home to watch the football game on TV. She quickly realized at home that her right leg was getting weaker and now her right arm was becoming weaker along with slurring of speech and right facial droop. Stroke team was called in the ER and decision to initiate tPA was made and she received a bolus treatment with some temporary improvement in symptoms. She was briefly able to move her right arm off of the bed and left her right leg normally. This quickly went away and is now suffering from right side hemiplegia. CTA showed no severe stenosis therefore decision was made to keep her in the ICU here. Past Medical History Past Medical History (Chronic Problems): Chronic Problems (Last Updated 04/09/17 @ 14:08 by Kendrick Godwin) Status post total left knee replacement (Chronic) Cataract (Chronic) Hypertension (Chronic) Medical History: Medical History (Last Updated 04/09/17 @ 14:08 by Kendrick Godwin) Cataract H26.9 Allergies adhesive tape Allergy (Verified 11/05/17 20:56) Other BLISTERS valsartan Allergy (Verified 06/18/17 09:21) Rash amlodipine Adverse Reaction (Verified 06/18/17 09:21) Other DIZZY, SHAKES enalaprilat [From Vasotec] Adverse Reaction (Verified 06/18/17 09:21) Other DRY COUGH minoxidil Adverse Reaction (Verified 06/18/17 09:21) Other SWELLING ANKLES, HANDS SHAKE risedronate sodium [From Actonel] Adverse Reaction (Verified 06/18/17 09:21) Other Home Medications: Ambulatory Orders Medication Instructions Recorded cholecalciferol (vitamin D3) 50,000 unit PO MONTHLY cap 04/09/17 50,000 unit capsule dexlansoprazole 60 mg 60 mg PO PRN PRN 04/09/17 capsule,biphase delayed release losartan 100 mg tablet 100 mg PO ONCE tab 04/09/17 Multivitamin [Daily Multiple 1 each PO DAILY 04/24/17 Vitamin] Aspirin E.C. [Ecotrin] 81 mg PO DAILY@0800 11/05/17 Chlorthalidone 25 mg PO DAILY 11/05/17 Atorvastatin Calcium [Lipitor] 40 mg PO QHS 11/08/17 Surgical History: Surgical History (Last Updated 05/14/17 @ 09:20 by Kendrick Godwin) History of total knee arthroplasty Z96.659 H/O adenoidectomy Z98.890, Z90.89 H/O dilation and curettage Z98.890 History of cholecystectomy Z98.890, Z90.49 History of hysterectomy Z98.890, Z90.710 History of tonsillectomy Z98.890, Z90.89 S/P sclerotherapy of varicose veins Z98.890, Z86.79 Surgical History: cataract, cholecystectomy, hysterectomy, total knee arthroplasty - Bilateral, tonsillectomy, - - Carpal tunnel - Right, Thrumb - Right Lives: Spouse/ Significant Other Smoking Status: Never smoker Tobacco Use: Non-smoker Alcohol: None Drugs: None - *Family History Maternal Family History: Family History (Last Updated 04/09/17 @ 14:09 by Kendrick Godwin) Mother Cancer Father Colon cancer History Items: No pertinent history Review of Systems Constitutional: Denies: Chills, Fever, Weight Change HEENT: Denies: Head Aches, Sinus Congestion, Sinus Drainage Cardiovascular: Denies: Chest Pain, Palpitations Respiratory: Denies: Cough, Shortness of breath at rest, Sputum production Gastrointestinal: Denies: Abdominal Pain, Nausea, Vomiting Genitourinary: Denies: Dysuria Musculoskeletal: Denies: Joint Pain, Joint Tenderness Skin: Denies: Rash, Wounds Neurological: Denies: Numbness, Tingling, Focal weakness Psychiatric: Denies: Anxiety, Depression, Homicidal Ideations, Suicidal Ideations Hematologic/ Lymphatic: Denies: Easy Bruising, Easy Bleeding VTE Information - Inpt Only VTE Present on Admission: No VTE Mechan Device Prophylaxis: SCD's, Knee High BETTIE Hose VTE Pharm Prophylaxis ordered?: Yes - Physical Exam General: Alert, Oriented x3, Cooperative HEENT: Atraumatic, PERRLA, EOMI, Normocephalic Neck: Supple, No JVD, Negative Carotid Bruits Lungs: Clear to auscultation, Normal air movement Cardiovascular: Regular rate, No murmurs Abdomen: Bowel Sounds Present, Soft, Non Tender Extremities: No edema, Capillary Refill Less than 3 Seconds Skin: No rashes, No breakdown Musculoskeletal: No Tenderness to Palpation of Joints or Extremities Neurological: Cranial nerves II-XII grossly intact, - - Power Right UE 1/5, LE 3/5, Left UE/LE-5/5, mild sensory loss right UE/LE, no extinction, no cerebellar signs left side, Reflexes + B/L B/S/T/K/A, mild dysarthria. NIHSS 7 at present, mRS 0 at baseline. Psych/Mental Status: Normal Affect, Appropriate Vital Signs Temp Pulse Resp BP Pulse Ox 97.5 F L 77 18 161/78 H 96 11/08/17 13:51 11/08/17 13:51 11/08/17 13:51 11/08/17 13:51 11/08/17 13:51 Oxygen Delivery Method Room Air Weight: 67.676 kg Body Mass Index (BMI) 28.1 Finger Stick Blood Glucose 109 Assessment/Plan All Active Problems (Last Updated 04/09/17 @ 14:08 by Kendrick Godwin) Stroke (Acute) Hip hematoma, right (Acute) Debility s/p small to moderate left MCA infarct. Complicated by HTN, HLD. goal of rehab is oriental orthodox of functional independence. Plan: - Physical therapy for gait and balance - Occupational Therapy for ADLs - Speech therapy - As needed analgesics - Bowel protocol - Stroke prevention on ASA, Statin and Lovenox - DVT prophylaxis: SCDs, ASA, Lovenox - MRI brain -> showed small to moderate acute left MCA stroke (left posterior putamen) - MRA head/neck => showed normal carotids - [address] head- was negative for hemorrhage - Acute right hip hematoma- further management and evaluation per ICU team and primary team. Check H&H - Hx HTN continue home medications, Goal BP < 130/80 mmHg and goal Hba1c <7% - Avoid hypotension - Hx of HLD continue home statin - Hx of depression currently not on any medications - Hx of Fibromyalgia currently not on any medications - 30 day event recorder as outpatient. - Fall precautions
[2017-11-08 19:03] VITALS: O2SAT 97
[2017-11-08] MEDS: Atorvastatin Calcium 40 MG Tablet PO (20:50)
[2017-11-08 21:08] VITALS: BP 164/85; PULSE 85; RESP 16; TEMP 36.6; O2SAT 93
--- NOTE | 2017-11-08 22:36 | REHABEVAL_ITS ---
Admission Information Status Changes from Prescreening?: No changes Identified Actual Problem List:: Mobility Impaired, Self Care Deficit, BP, Hypertension Potential Problem List:: DVT, Bleeding, Infection, UTI, Aspiration, Falls, Skin Integrity, Depression Risk of Complications DVT: LMWH, BETTIE Hose, Sequential Compression Device Bleeding: Monitor Lab Values, Nursing to Teach Precautions for anti-coagulation therapy., Wound, if applicable, to be assessed every shift., Stroke patients assessed for lethargy or change in status. Infection: Clinical Staff to Monitor for S/S of infection:, S/S of infection include fever, redness, warmth, etc. Urinary Tract Infection: Monitor for frequency, burning, discomfort, or incontinence., Nursing will obtain urine sample for urinalysis and C&S when ordered. Aspiration: Clinical staff will monitor for coughing, drooling, congestion., Speech will evaluate swallowing and dsyphasia., Nursing will monitor patient s wallowing during meals. Falls: Patient will be evaluated for Fall Precautions, Patient will be placed on Fall Precautions as indicated per protocol. Skin Breakdown: Nursing will assess skin daily using assessment tool., Nursing will place on Skin Breakdown Precautions as indicated. Pain: Clinical staff will assess patient's pain level per protocol., Medications will be given, if needed, and the pain level reassessed., Other methods: Massage, distraction, decrease stimulus, etc. used PRN. Plan of Care Patient requires physician specializing in physical medicine and rehab oversight to provide close medical supervision of rehab issues including: Pain Management, Sleep Problems, Bowel and Bladder, Medical and co-morbidity Management, DVT prophylaxis, Rehabilitation Leadership, Coordination of treatment team Patient needs Physical Therapy: For a minimum of 1 hour, At least 5 out of 7 days Patient needs Physical Therapy to improve:: Mobility, Mobility, Mobility, Strengthening, Transfers, Stretching, ROM, Endurance, Stairs, Gait, Balance Patient needs Occupational Therapy: For a minimum of 1 hour, At least 5 out of 7 days Patient needs Occupational Therapy to improve ADL's incl.: Eating, Grooming, Bathing, Dressing, Toileting, Toilet transfers, Community Reintegration, Higher functioning activities, Household tasks, Adaptive Equipment, Splinting, Other activities as determined Patient requires speech therapy: For a minimum of 1 hour, At least 5 out of 7 days Patient requires speech therapy for: Swallowing, Cognition, Language Skills, Compensatory Strategies Patient requires 24/7 Rehabilitation Nursing for: Pain Issues, Identifying and preventing risk factors, Monitoring and reporting current medical conditions, Assisting with ambulation, transfer, and all ADL's, Teaching patients about disease process and medications, Family teaching, Providing safe environment, Bowel and Bladder Issues, Skin integrity, Medication Management Patient needs [employer]/ Case Management for: Discharge Planning, Arranging Home Equipment or Services, Family Interventions Patient needs Dietary and Nutrition Services for: Adequate Nutrition, Nutritional Supplements, Nutritional Education Goals Patient will remain: free from falls, or injury at time of discharge. Patient will perform bed mobility at: MOD I level of assist. Patient will complete transfers from bed to chair at: MOD I level of assist. Patient will ambulate: 100 feet, with MOD I assist, with LRD Patient will complete upper body dressing at: MOD I level of assist. Patient will complete lower body dressing at: MOD I level of assist. Patient will complete toileting at: MOD I level of assist. Patient will perform bathing at: MOD I level of assist. Patient will complete grooming at: MOD I level of assist. Patient will complete home management skills at: MOD I level of assist. Patient will achieve: 12 stairs, at MOD I assist Patient will have pain level of: of 3 or less Patient's skin will: remain intact, free from infection. Patient will receive: adequate nutrition. Discharge Planning Pt Prognosis for Sig. Practical Improv. w/in Reasonable Time: Good Estimated Length of stay (days): 14 Anticipated D/C Destination: Home with Outpt Therapy Was Preadmission Assessment Accurate?: Yes
[2017-11-08] MEDS: Acetaminophen 325 MG Tablet 650 MG PO (23:16)
--- NOTE | 2017-11-09 02:07 | NURSING ---
Reviewed and agree with MELTER CASTER documentation and FIMs charting.
[2017-11-09] MEDS: Enoxaparin 40 MG/0.4 ML Syringe SC (05:04)
[2017-11-09 05:35] LABS: Absolute Lymphocyte Count 3.44 X10^3/ul (0.83-4.51); Absolute Neutrophil Count 5.4 X10^3/uL (2.0-7.7); Basophil# 0.03 X10^3/uL; Basophil% 0.3 % (0-1); Eosinophil# 0.61 X10^3/uL; Eosinophils% 5.7 % (0-5); Hematocrit 40.8 % (37-47); Hemoglobin 13.6 g/dl (12.0-15.0); Lymphocyte # 3.44 X10^3/ul (4.0); Lymphocyte % 32.3 % (19-41); Mean Corp Hgb Conc 33.3 g/gl (32-36); Mean Corpuscular Hgb 29.8 pg (27.0-32.0); Mean Corpuscular Volume 89.3 fL (81-99); Mean Platelet Vol. 9.8 fl (6.2-12.0); Monocyte# 1.17 X10^3/uL; Neutrophil # 5.37 X10^3/uL (2.7-7.7); Neutrophil % 50.5 % (47-70); Platelet Count 265 K/mm3 (150-450); RBC Distribution Width CV 12.9 % (11.6-14.6); RBC Distribution Width SD 42.2 fl (35.1-43.9); Red Blood Count 4.57 M/mm3 (4.2-5.4); White Blood Count 10.6 K/mm3 (4.4-11.0)
[2017-11-09 05:36] LABS: POSITIVE COUNT NO; POSITIVE DIFFERENTIAL NO; POSITIVE MORPHOLOGY NO
[2017-11-09 05:42] LABS: ALB/GLOB Ratio 1.1 RATIO (0.9-2.4); AST(SGOT) 30 U/L (15-37); Alanine Aminotransfer ALT/SGPT 26 U/L (13-56); Albumin, Serum 3.3 g/dL (3.2-5.0); Alkaline Phosphatase 73 U/L (45-117); Anion Gap 10 (5-15); BUN 23 mg/dL (7-18); BUN/Creat Ratio 22.8 RATIO (10-20); Calcium,Total 9.8 mg/dL (8.5-10.1); Chloride 107 mmol/L (98-107); Creatinine, Serum 1.01 mg/dL (0.55-1.02); EST Glomerular Filtration Rate 56 mL/min (>60); Est Glom Filt Rate - Afr Amer 68 mL/min (>60); Estimated Creatinine Clearance 34.64 ml/min; Globulin 3.1 g/dL (2.2-4.2); Glucose 96 mg/dL (74-106); Magnesium 2.1 mg/dL (1.6-2.6); Phosphorus 3.3 mg/dL (2.5-4.9); Potassium 3.8 mmol/L (3.5-5.1); Protein, Total 6.4 g/dL (6.4-8.2); Sodium Level 143 mmol/L (136-145)
[2017-11-09 08:00] VITALS: BP 133/67; PULSE 78; RESP 15; TEMP 36.6; O2SAT 96
[2017-11-09] MEDS: Aspirin E.C. 81 MG Tablet PO (09:50)
[2017-11-09] MEDS: Chlorthalidone 50 MG Tablet 25 MG PO (09:50)
[2017-11-09] MEDS: Losartan Potassium 100 MG Tablet PO (09:50)
[2017-11-09] MEDS: Multivitamins,Therapeutic Tablet 1 TABLET PO (09:50)
[2017-11-09 10:30] VITALS: O2SAT 95
--- NOTE | 2017-11-09 14:10 | PN_ITS ---
Subjective: Patient is doing much better. Still has right upper extremity but 4/5. Right lower extremity strength has improved. Mild slurring but very subtle Vitals/I&O's: Vital Signs Temp Pulse Resp BP Pulse Ox 97.9 F 78 15 133/67 H 95 11/09/17 08:00 11/09/17 08:00 11/09/17 08:00 11/09/17 08:00 11/09/17 10:30 Oxygen Delivery Method Room Air Weight: 149 lb 3.201 oz Body Mass Index (BMI) 28.1 Finger Stick Blood Glucose 109 Intake and Output for Last 24 Hours 11/07/17 11/08/17 11/09/17 23:59 23:59 23:59 Intake Total 720 / 720 Output Total 350 / 350 Balance -350 / -350 720 / 720 General: Alert, Oriented x3, Cooperative HEENT: Atraumatic, PERRLA, EOMI, Normocephalic Neck: Supple, No JVD, Negative Carotid Bruits Lungs: Clear to auscultation, Normal air movement Cardiovascular: Regular rate, Regular Rhythm, Normal S1, Normal S2, No murmurs Abdomen: Bowel Sounds Present, Soft, Non Tender Extremities: No edema, Capillary Refill Less than 3 Seconds Skin: No rashes, No breakdown, - - Hematoma is resolved Musculoskeletal: No Tenderness to Palpation of Joints or Extremities, Arthritic Changes Neurological: - - Mild dysarthia and slurring improved. Right upper extremity weakness 4/5. Right lower extremity 5/5. Left upper and lower extremity normal. Psych/Mental Status: Normal Affect, Appropriate Laboratory Results 11/09/17 05:00: WBC 10.6, RBC 4.57, Hgb 13.6, Hct 40.8, MCV 89.3, MCH 29.8, MCHC 33.3, RDW 12.9, RDW Differential 42.2, Plt Count 265, MPV 9.8, Immature Gran % (Auto) 0.200, Neut % (Auto) 50.5, Lymph % (Auto) 32.3, [place] % (Auto) 11.0 H, Eos % (Auto) 5.7 H, Baso % (Auto) 0.3, Absolute Neuts (auto) 5.4, Absolute Lymphs (auto) 3.44, Total Counted Not Reportable 11/09/17 05:00: Sodium 143, Potassium 3.8, Chloride 107, Carbon Dioxide 26.0, Anion Gap 10, BUN 23 H, Creatinine 1.01, Estim Creat Clear Calc 34.64, Est GFR (MDRD) Af Amer 68, Est GFR (MDRD) Non-Af 56 L, BUN/Creatinine Ratio 22.8 H, Glucose 96, Calcium 9.8, Phosphorus 3.3, Magnesium 2.1, Total Bilirubin 0.60, AST 30, ALT 26, Alkaline Phosphatase 73, Total Protein 6.4, Albumin 3.3, Globulin 3.1, Albumin/Globulin Ratio 1.1 Current Medications Acetaminophen (Tylenol) 650 mg PO Q6H PRN PRN PRN Reason: Mild Pain (0-3/10)/Headache Last Admin: 11/08/17 23:16 Dose: 650 mg Aspirin (Ecotrin) 81 mg PO DAILY@0800 [facility] Last Admin: 11/09/17 09:50 Dose: 81 mg Atorvastatin Calcium (Lipitor) 40 mg PO QHS [facility] Last Admin: 11/08/17 20:50 Dose: 40 mg Bisacodyl (Dulcolax) 10 mg RECTAL .PRN X 1 PRN PRN Reason: Constipation Chlorthalidone (Hygroton) 25 mg PO DAILY [facility] Last Admin: 11/09/17 09:50 Dose: 25 mg Enoxaparin Sodium (Lovenox) 40 mg SC DAILY@0600 [facility] Last Admin: 11/09/17 05:04 Dose: 40 mg Ergocalciferol (Vitamin D) 50,000 unit PO Q7D [facility] Last Admin: 11/09/17 09:51 Dose: 50,000 unit Lorazepam (Ativan) 0.5 mg PO QHS PRN PRN PRN Reason: INSOMNIA Losartan Potassium (Cozaar) 100 mg PO DAILY [facility] Last Admin: 11/09/17 09:50 Dose: 100 mg Magnesium Hydroxide (Milk Of Magnesia) 30 ml PO .PRN X 1 PRN PRN Reason: Constipation Multivitamins (Multivitamin) 1 tablet PO DAILY@0800 [facility] Last Admin: 11/09/17 09:50 Dose: 1 tablet Pantoprazole Sodium (Protonix) 40 mg PO DAILY PRN PRN Reason: STOMACH DISCOMFORT Senna/Docusate Sodium (Senokot-S, Aleah-Colace) 2 tablet PO BID [facility] Last Admin: 11/09/17 09:52 Dose: Not Given Medical Necessity - Tobacco Use Smoking Status: Never smoker Tobacco Use: Non-smoker Assessment/Plan All Active Problems (Last Updated 04/09/17 @ 14:08 by Kendrick Godwin) Stroke (Acute) Hip hematoma, right (Acute) This is a 77-year-old female with history of hypertension, dyslipidemia, fibromyalgia who was discharged from [facility] after treated for right-sided weakness and sensory loss, slurred speech and facial droop consistent with left MCA stroke. Furthermore CT head at that time did not show any hemorrhage and so patient was given rtPA for ischemic stroke. The patient was initially in ICU and then discharged to acute rehab. Assessment and plan 1 Acute left MCA (left posterior putamen) ischemic stroke: MRI brain shows subacute lacunar ischemic infarct in the left posterior putamen. Head CT shows bilateral posterior cerebral arteries small in caliber greater on the right. No focal high-grade stenosis or occlusion. No aneurysm of [place] of [place]. Patient had repeat CT head which does not show bleed after 24 hours rtPA did not show bleed. Thereafter, was started on aspirin 81 mg once daily. The patient was advised 30 day event monitor as an outpatient. PT/OT and speech therapy A1c 5.7. 2. Acute hematoma on the right hip status post TPA: Resolved. 3. Hypertension: Pressure is controlled 133/67. 4. Dyslipidemia: Fasting lipid profile shows total cholesterol 204, LDL 132, triglyceride 149, HDL 42. Patient said she has myalgia on Crestor but patient is tolerating atorvastatin 40 mg daily . DVT prophylaxis: On enoxaparin 40 subcu daily Code Visit Inpatient E&M: [id number] [facility] Hosp L3
[2017-11-09 21:32] VITALS: BP 156/74; PULSE 91; RESP 17; TEMP 36.5; O2SAT 96
[2017-11-09] MEDS: Atorvastatin Calcium 40 MG Tablet PO (21:39)
[2017-11-09] MEDS: LORazepam 0.5 MG Tablet PO (21:39)
[2017-11-10] MEDS: Acetaminophen 325 MG Tablet 650 MG PO (02:41)
[2017-11-10] MEDS: Enoxaparin 40 MG/0.4 ML Syringe SC (06:09)
[2017-11-10 07:04] VITALS: BP 160/71; PULSE 75; RESP 18; TEMP 36.6; O2SAT 96
[2017-11-10] MEDS: Losartan Potassium 100 MG Tablet PO (09:30)
[2017-11-10] MEDS: Chlorthalidone 50 MG Tablet 25 MG PO (09:30)
[2017-11-10] MEDS: Senna/Docusate Sodium 1 Tablet 2 TABLET PO (09:30)
[2017-11-10] MEDS: Aspirin E.C. 81 MG Tablet PO (09:30)
[2017-11-10] MEDS: Multivitamins,Therapeutic Tablet 1 TABLET PO (09:30)
[2017-11-10 11:05] VITALS: BP 144/65; PULSE 77
[2017-11-10 16:00] VITALS: O2SAT 94
[2017-11-10 21:13] VITALS: BP 133/83; PULSE 82; RESP 20; TEMP 36.8; O2SAT 95
[2017-11-10] MEDS: LORazepam 0.5 MG Tablet PO (21:25)
[2017-11-10] MEDS: Atorvastatin Calcium 40 MG Tablet PO (21:26)
[2017-11-11] MEDS: Acetaminophen 325 MG Tablet 650 MG PO ×2 (00:13→20:51)
--- NOTE | 2017-11-11 00:17 | NURSING ---
c/o cramping in right leg beginning at arch in right foot and going up to hip. SCDs dc'd due to pt's c/o of this last night. Max Freeze applied to ankle and calf per pt's request. Tylenol given. Ativan previously given. Doing plantar/dorsiflexion stretches. No red, warm, or swollen areas noted
[2017-11-11] MEDS: Enoxaparin 40 MG/0.4 ML Syringe SC (06:47)
[2017-11-11 07:34] VITALS: BP 137/56; PULSE 81; RESP 18; TEMP 36.6; O2SAT 97
[2017-11-11] MEDS: Losartan Potassium 100 MG Tablet PO (09:16)
[2017-11-11] MEDS: Aspirin E.C. 81 MG Tablet PO (09:16)
[2017-11-11] MEDS: Multivitamins,Therapeutic Tablet 1 TABLET PO (09:16)
[2017-11-11] MEDS: Chlorthalidone 50 MG Tablet 25 MG PO (09:16)
--- NOTE | 2017-11-11 16:01 | PCM.PN.HOSP ---
Subjective: Patient seen and examined. She has no complaints and is doing well with physical therapy. She denies any fever chills, cough or chest pain, shortness of breath, abdominal pain, diarrhea vomiting. 12 point review of systems otherwise negative. Labs and vitals reviewed. Vitals/I&O's: Vital Signs Temp Pulse Resp BP Pulse Ox 97.8 F 81 18 137/56 H 97 11/11/17 07:34 11/11/17 07:34 11/11/17 07:34 11/11/17 07:34 11/11/17 07:34 Oxygen Delivery Method Room Air Weight: 149 lb 3.201 oz Body Mass Index (BMI) 28.1 Finger Stick Blood Glucose 109 Intake and Output for Last 24 Hours 11/09/17 11/10/17 11/11/17 23:59 23:59 23:59 Intake Total 960 / 960 360 / 360 480 / 480 Balance 960 / 960 360 / 360 480 / 480 General: Alert, Oriented x3, Cooperative, No apparent distress HEENT: Atraumatic, PERRLA, EOMI, Normocephalic Oral: Moist Mucosa Neck: Supple, No JVD, Negative Carotid Bruits Lungs: Clear to auscultation, Normal air movement, No rhonchi, No wheeze, No rales Cardiovascular: Regular rate, Regular Rhythm, Normal S1, Normal S2, No murmurs Abdomen: Bowel Sounds Present, Soft, Non Tender, Non-Distended, No Hepato-splenomegaly Extremities: No clubbing, No cyanosis, No edema, Capillary Refill Less than 3 Seconds Skin: No rashes, No breakdown Musculoskeletal: No Tenderness to Palpation of Joints or Extremities Lymphatic: No Cervical, Supraclavicular, or Inguinal Adenopathy Neurological: Cranial nerves II-XII grossly intact, Sensory exam intact to light touch and pain, - - decreased power (4/5) in RUE and RLE Psych/Mental Status: Normal Affect, Appropriate, Alert and oriented to time, place, person, mood and affect Current Medications Acetaminophen (Tylenol) 650 mg PO Q6H PRN PRN PRN Reason: Mild Pain (0-3/10)/Headache Last Admin: 11/11/17 00:13 Dose: 650 mg Aspirin (Ecotrin) 81 mg PO DAILY@0800 [facility] Last Admin: 11/11/17 09:16 Dose: 81 mg Atorvastatin Calcium (Lipitor) 40 mg PO QHS [facility] Last Admin: 11/10/17 21:26 Dose: 40 mg Bisacodyl (Dulcolax) 10 mg RECTAL .PRN X 1 PRN PRN Reason: Constipation Chlorthalidone (Hygroton) 25 mg PO DAILY [facility] Last Admin: 11/11/17 09:16 Dose: 25 mg Enoxaparin Sodium (Lovenox) 40 mg SC DAILY@0600 [facility] Last Admin: 11/11/17 06:47 Dose: 40 mg Ergocalciferol (Vitamin D) 50,000 unit PO Q7D [facility] Last Admin: 11/09/17 09:51 Dose: 50,000 unit Lorazepam (Ativan) 0.5 mg PO QHS PRN PRN PRN Reason: INSOMNIA Last Admin: 11/10/17 21:25 Dose: 0.5 mg Losartan Potassium (Cozaar) 100 mg PO DAILY [facility] Last Admin: 11/11/17 09:16 Dose: 100 mg Magnesium Hydroxide (Milk Of Magnesia) 30 ml PO .PRN X 1 PRN PRN Reason: Constipation Multivitamins (Multivitamin) 1 tablet PO DAILY@0800 [facility] Last Admin: 11/11/17 09:16 Dose: 1 tablet Pantoprazole Sodium (Protonix) 40 mg PO DAILY PRN PRN Reason: STOMACH DISCOMFORT Senna/Docusate Sodium (Senokot-S, Aleah-Colace) 2 tablet PO BID [facility] Last Admin: 11/11/17 09:18 Dose: Not Given Medical Necessity - Tobacco Use Smoking Status: Never smoker Tobacco Use: Non-smoker Assessment/Plan All Active Problems (Last Updated 04/09/17 @ 14:08 by Kendrick Godwin) Stroke (Acute) Hip hematoma, right (Acute) 1. Debilty secondary to acute left MCA ischemic stroke Status post TPA On aspirin 81 mg daily and atorvastatin 40 mg daily. Physical therapy on board. Tolerating physical therapy well and is now able to lift the right upper extremity and has a much better range of movement of the right upper and lower extremities than on admission A1c was 5.7. 30 day event monitor recommended. neuro on board 2.: Blood pressure well controlled. Continue current BP meds. 3. Hyperlipidemia: Tolerating atorvastatin 40 mg daily. history of allergies to Crestor but has been tolerating atorvastatin well. DVT prophylaxis: Lovenox 4mg subcu daily Code Visit Inpatient E&M: 86133 Subs Hosp L2
--- NOTE | 2017-11-11 16:05 | PN_ITS ---
Subjective: Patient seen and examined. She has no complaints and is doing well with physical therapy. She denies any fever chills, cough or chest pain, shortness of breath, abdominal pain, diarrhea vomiting. 12 point review of systems otherwise negative. Labs and vitals reviewed. Vitals/I&O's: Vital Signs Temp Pulse Resp BP Pulse Ox 97.8 F 81 18 137/56 H 97 11/11/17 07:34 11/11/17 07:34 11/11/17 07:34 11/11/17 07:34 11/11/17 07:34 Oxygen Delivery Method Room Air Weight: 149 lb 3.201 oz Body Mass Index (BMI) 28.1 Finger Stick Blood Glucose 109 Intake and Output for Last 24 Hours 11/09/17 11/10/17 11/11/17 23:59 23:59 23:59 Intake Total 960 / 960 360 / 360 480 / 480 Balance 960 / 960 360 / 360 480 / 480 General: Alert, Oriented x3, Cooperative, No apparent distress HEENT: Atraumatic, PERRLA, EOMI, Normocephalic Oral: Moist Mucosa Neck: Supple, No JVD, Negative Carotid Bruits Lungs: Clear to auscultation, Normal air movement, No rhonchi, No wheeze, No rales Cardiovascular: Regular rate, Regular Rhythm, Normal S1, Normal S2, No murmurs Abdomen: Bowel Sounds Present, Soft, Non Tender, Non-Distended, No Hepato- splenomegaly Extremities: No clubbing, No cyanosis, No edema, Capillary Refill Less than 3 Seconds Skin: No rashes, No breakdown Musculoskeletal: No Tenderness to Palpation of Joints or Extremities Lymphatic: No Cervical, Supraclavicular, or Inguinal Adenopathy Neurological: Cranial nerves II-XII grossly intact, Sensory exam intact to light touch and pain, - - decreased power (4/5) in RUE and RLE Psych/Mental Status: Normal Affect, Appropriate, Alert and oriented to time, place, person, mood and affect Current Medications Acetaminophen (Tylenol) 650 mg PO Q6H PRN PRN PRN Reason: Mild Pain (0-3/10)/Headache Last Admin: 11/11/17 00:13 Dose: 650 mg Aspirin (Ecotrin) 81 mg PO DAILY@0800 [facility] Last Admin: 11/11/17 09:16 Dose: 81 mg Atorvastatin Calcium (Lipitor) 40 mg PO QHS [facility] Last Admin: 11/10/17 21:26 Dose: 40 mg Bisacodyl (Dulcolax) 10 mg RECTAL .PRN X 1 PRN PRN Reason: Constipation Chlorthalidone (Hygroton) 25 mg PO DAILY [facility] Last Admin: 11/11/17 09:16 Dose: 25 mg Enoxaparin Sodium (Lovenox) 40 mg SC DAILY@0600 [facility] Last Admin: 11/11/17 06:47 Dose: 40 mg Ergocalciferol (Vitamin D) 50,000 unit PO Q7D [facility] Last Admin: 11/09/17 09:51 Dose: 50,000 unit Lorazepam (Ativan) 0.5 mg PO QHS PRN PRN PRN Reason: INSOMNIA Last Admin: 11/10/17 21:25 Dose: 0.5 mg Losartan Potassium (Cozaar) 100 mg PO DAILY [facility] Last Admin: 11/11/17 09:16 Dose: 100 mg Magnesium Hydroxide (Milk Of Magnesia) 30 ml PO .PRN X 1 PRN PRN Reason: Constipation Multivitamins (Multivitamin) 1 tablet PO DAILY@0800 [facility] Last Admin: 11/11/17 09:16 Dose: 1 tablet Pantoprazole Sodium (Protonix) 40 mg PO DAILY PRN PRN Reason: STOMACH DISCOMFORT Senna/Docusate Sodium (Senokot-S, Aleah-Colace) 2 tablet PO BID [facility] Last Admin: 11/11/17 09:18 Dose: Not Given Medical Necessity - Tobacco Use Smoking Status: Never smoker Tobacco Use: Non-smoker Assessment/Plan All Active Problems (Last Updated 04/09/17 @ 14:08 by Kendrick Godwin) Stroke (Acute) Hip hematoma, right (Acute) 1. Debilty secondary to acute left MCA ischemic stroke * Status post TPA * On aspirin 81 mg daily and atorvastatin 40 mg daily. * Physical therapy on board. Tolerating physical therapy well and is now able to lift the right upper extremity and has a much better range of movement of the right upper and lower extremities than on admission * A1c was 5.7. 30 day event monitor recommended. * neuro on board * 2.: Blood pressure well controlled. Continue current BP meds. 3. Hyperlipidemia: * Tolerating atorvastatin 40 mg daily. * history of allergies to Crestor but has been tolerating atorvastatin well. * DVT prophylaxis: Lovenox 4mg subcu daily Code Visit Inpatient E&M: 26714 Subs Hosp L2
--- NOTE | 2017-11-11 17:28 | NURSING ---
up in chair most of day today with visitors in room. ambulated back and forth to bathroom several times.
[2017-11-11 19:13] VITALS: BP 142/71; PULSE 94; RESP 20; TEMP 36.4; O2SAT 94
[2017-11-11] MEDS: LORazepam 0.5 MG Tablet PO (20:54)
[2017-11-11] MEDS: Atorvastatin Calcium 40 MG Tablet PO (20:55)
[2017-11-12] MEDS: LORazepam 0.5 MG Tablet PO ×2 (00:34→20:08)
[2017-11-12] MEDS: Acetaminophen 325 MG Tablet 650 MG PO ×2 (05:57→23:52)
[2017-11-12] MEDS: Enoxaparin 40 MG/0.4 ML Syringe SC (05:57)
[2017-11-12 07:21] VITALS: BP 150/79; PULSE 68; RESP 18; TEMP 36.2; O2SAT 96
[2017-11-12] MEDS: Losartan Potassium 100 MG Tablet PO (07:50)
[2017-11-12] MEDS: Chlorthalidone 50 MG Tablet 25 MG PO (07:50)
[2017-11-12] MEDS: Aspirin E.C. 81 MG Tablet PO (07:50)
[2017-11-12] MEDS: Multivitamins,Therapeutic Tablet 1 TABLET PO (07:50)
--- NOTE | 2017-11-12 09:13 | NURSING ---
c/o right leg spasms waking her up nightly. Caro PANTOJA aware, new order for baclofen 5 mg given at 1999.
--- NOTE | 2017-11-12 09:34 | NURSING ---
Discussed with therapy Lory donald to remove personal alarm d/t patient is calling for assistance with all needs and transfers
--- NOTE | 2017-11-12 10:13 | PCM.PN.NEU ---
Subjective: Patient seen and examined. Complaining of muscle spasms at night, which wakes her up around 2am will start baclofen. Otherwise she is tolerating therapy. She denies any chest pain, shortness of breath, blurry vision or double vision. No issues with GI/. - Physical Exam General: Alert, Oriented x3, Cooperative HEENT: Atraumatic, PERRLA, EOMI, Normocephalic Neck: Supple, No JVD, Negative Carotid Bruits Lungs: Clear to auscultation, Normal air movement Cardiovascular: Regular rate, No murmurs Abdomen: Bowel Sounds Present, Soft, Non Tender Extremities: No edema, Capillary Refill Less than 3 Seconds Skin: No rashes, No breakdown Musculoskeletal: No Tenderness to Palpation of Joints or Extremities Neurological: Cranial nerves II-XII grossly intact Psych/Mental Status: Normal Affect, Appropriate, Alert and oriented to time, place, person, mood and affect Vital Signs Temp Pulse Resp BP Pulse Ox 97.2 F L 68 18 150/79 H 96 11/12/17 07:21 11/12/17 07:21 11/12/17 07:21 11/12/17 07:21 11/12/17 07:21 Oxygen Delivery Method Room Air Weight: 67.676 kg Body Mass Index (BMI) 28.1 Finger Stick Blood Glucose 109 Intake and Output for Last 24 Hours 11/10/17 11/11/17 11/12/17 23:59 23:59 23:59 Intake Total 360 / 360 480 / 480 360 / 360 Balance 360 / 360 480 / 480 360 / 360 Active Medications Acetaminophen (Tylenol) 650 mg PO Q6H PRN PRN PRN Reason: Mild Pain (0-3/10)/Headache Last Admin: 11/12/17 05:57 Dose: 650 mg Aspirin (Ecotrin) 81 mg PO DAILY@0800 [facility] Last Admin: 11/12/17 07:50 Dose: 81 mg Atorvastatin Calcium (Lipitor) 40 mg PO QHS [facility] Last Admin: 11/11/17 20:55 Dose: 40 mg Baclofen (Lioresal) 5 mg PO 2000 [facility] Bisacodyl (Dulcolax) 10 mg RECTAL .PRN X 1 PRN PRN Reason: Constipation Chlorthalidone (Hygroton) 25 mg PO DAILY [facility] Last Admin: 11/12/17 07:50 Dose: 25 mg Enoxaparin Sodium (Lovenox) 40 mg SC DAILY@0600 [facility] Last Admin: 11/12/17 05:57 Dose: 40 mg Ergocalciferol (Vitamin D) 50,000 unit PO Q7D [facility] Last Admin: 11/09/17 09:51 Dose: 50,000 unit Lorazepam (Ativan) 0.5 mg PO QHS PRN PRN PRN Reason: INSOMNIA Losartan Potassium (Cozaar) 100 mg PO DAILY [facility] Last Admin: 11/12/17 07:50 Dose: 100 mg Magnesium Hydroxide (Milk Of Magnesia) 30 ml PO .PRN X 1 PRN PRN Reason: Constipation Multivitamins (Multivitamin) 1 tablet PO DAILY@0800 [facility] Last Admin: 11/12/17 07:50 Dose: 1 tablet Pantoprazole Sodium (Protonix) 40 mg PO DAILY PRN PRN Reason: STOMACH DISCOMFORT Senna/Docusate Sodium (Senokot-S, Aleah-Colace) 2 tablet PO BID [facility] Last Admin: 11/12/17 07:51 Dose: Not Given Medical Necessity - Tobacco Use Smoking Status: Never smoker Tobacco Use: Non-smoker Assessment/Plan All Active Problems (Last Updated 04/09/17 @ 14:08 by Kendrick Godwin) Stroke (Acute) Hip hematoma, right (Acute) Debility s/p small to moderate left MCA infarct. Complicated by HTN, HLD. goal of rehab is uatsdin of functional independence. Plan: - Physical therapy for gait and balance - Occupational Therapy for ADLs - Speech therapy - As needed analgesics - Bowel protocol - Stroke prevention on ASA, Statin and Lovenox - DVT prophylaxis: SCDs, ASA, Lovenox - MRI brain -> showed small to moderate acute left MCA stroke (left posterior putamen) - MRA head/neck => showed normal carotids - [address] head- was negative for hemorrhage - Acute right hip hematoma- improved - Hx HTN continue home medications, Goal BP < 130/80 mmHg and goal Hba1c <7% - Avoid hypotension - Hx of HLD continue home statin - Hx of depression currently not on any medications - Hx of Fibromyalgia currently not on any medications - 30 day event recorder as outpatient. - Fall precautions - Muscle spasms=> Baclofen 5mg nightly
--- NOTE | 2017-11-12 10:17 | PN.NEURO_ITS ---
Subjective: Patient seen and examined. Complaining of muscle spasms at night, which wakes her up around 2am will start baclofen. Otherwise she is tolerating therapy. She denies any chest pain, shortness of breath, blurry vision or double vision. No issues with GI/. - Physical Exam General: Alert, Oriented x3, Cooperative HEENT: Atraumatic, PERRLA, EOMI, Normocephalic Neck: Supple, No JVD, Negative Carotid Bruits Lungs: Clear to auscultation, Normal air movement Cardiovascular: Regular rate, No murmurs Abdomen: Bowel Sounds Present, Soft, Non Tender Extremities: No edema, Capillary Refill Less than 3 Seconds Skin: No rashes, No breakdown Musculoskeletal: No Tenderness to Palpation of Joints or Extremities Neurological: Cranial nerves II-XII grossly intact Psych/Mental Status: Normal Affect, Appropriate, Alert and oriented to time, place, person, mood and affect Vital Signs Temp Pulse Resp BP Pulse Ox 97.2 F L 68 18 150/79 H 96 11/12/17 07:21 11/12/17 07:21 11/12/17 07:21 11/12/17 07:21 11/12/17 07:21 Oxygen Delivery Method Room Air Weight: 67.676 kg Body Mass Index (BMI) 28.1 Finger Stick Blood Glucose 109 Intake and Output for Last 24 Hours 11/10/17 11/11/17 11/12/17 23:59 23:59 23:59 Intake Total 360 / 360 480 / 480 360 / 360 Balance 360 / 360 480 / 480 360 / 360 Active Medications Acetaminophen (Tylenol) 650 mg PO Q6H PRN PRN PRN Reason: Mild Pain (0-3/10)/Headache Last Admin: 11/12/17 05:57 Dose: 650 mg Aspirin (Ecotrin) 81 mg PO DAILY@0800 [facility] Last Admin: 11/12/17 07:50 Dose: 81 mg Atorvastatin Calcium (Lipitor) 40 mg PO QHS [facility] Last Admin: 11/11/17 20:55 Dose: 40 mg Baclofen (Lioresal) 5 mg PO 2000 [facility] Bisacodyl (Dulcolax) 10 mg RECTAL .PRN X 1 PRN PRN Reason: Constipation Chlorthalidone (Hygroton) 25 mg PO DAILY [facility] Last Admin: 11/12/17 07:50 Dose: 25 mg Enoxaparin Sodium (Lovenox) 40 mg SC DAILY@0600 [facility] Last Admin: 11/12/17 05:57 Dose: 40 mg Ergocalciferol (Vitamin D) 50,000 unit PO Q7D [facility] Last Admin: 11/09/17 09:51 Dose: 50,000 unit Lorazepam (Ativan) 0.5 mg PO QHS PRN PRN PRN Reason: INSOMNIA Losartan Potassium (Cozaar) 100 mg PO DAILY [facility] Last Admin: 11/12/17 07:50 Dose: 100 mg Magnesium Hydroxide (Milk Of Magnesia) 30 ml PO .PRN X 1 PRN PRN Reason: Constipation Multivitamins (Multivitamin) 1 tablet PO DAILY@0800 [facility] Last Admin: 11/12/17 07:50 Dose: 1 tablet Pantoprazole Sodium (Protonix) 40 mg PO DAILY PRN PRN Reason: STOMACH DISCOMFORT Senna/Docusate Sodium (Senokot-S, Aleah-Colace) 2 tablet PO BID [facility] Last Admin: 11/12/17 07:51 Dose: Not Given Medical Necessity - Tobacco Use Smoking Status: Never smoker Tobacco Use: Non-smoker Assessment/Plan All Active Problems (Last Updated 04/09/17 @ 14:08 by Kendrick Godwin) Stroke (Acute) Hip hematoma, right (Acute) Debility s/p small to moderate left MCA infarct. Complicated by HTN, HLD. goal of rehab is hinduism of functional independence. Plan: - Physical therapy for gait and balance - Occupational Therapy for ADLs - Speech therapy - As needed analgesics - Bowel protocol - Stroke prevention on ASA, Statin and Lovenox - DVT prophylaxis: SCDs, ASA, Lovenox - MRI brain -> showed small to moderate acute left MCA stroke (left posterior putamen) - MRA head/neck => showed normal carotids - [address] head- was negative for hemorrhage - Acute right hip hematoma- improved - Hx HTN continue home medications, Goal BP < 130/80 mmHg and goal Hba1c <7% - Avoid hypotension - Hx of HLD continue home statin - Hx of depression currently not on any medications - Hx of Fibromyalgia currently not on any medications - 30 day event recorder as outpatient. - Fall precautions - Muscle spasms=> Baclofen 5mg nightly
--- NOTE | 2017-11-12 12:11 | VDLE_ITS ---
Reason For Study: LEG PAIN RIGHT LEFT CFV is compressible, spontaneous, phasic, GSV is normal. competent and demonstrates normal CFV is compressible, spontaneous, phasic, augmentation. competent, and demonstrates normal FV is compressible, spontaneous, phasic, augmentation. competent and demonstrates normal FV is compressible, spontaneous, phasic, augmentation. competent and demonstrates normal POP V is compressible, spontaneous, phasic, augmentation. competent and demonstrates normal POP V is compressible, spontaneous, phasic, augmentation. competent and demonstrates normal T/P Trunk is compressible. augmentation. PTV is compressible. T/P Trunk is compressible. RT PerV is compressible. PTV is compressible. GSV absent. LT PerV is compressible. Procedure Exam performed portable in patient room. A preliminary report was called and/or faxed to [facility] nurse. Interpretation Summary Deep veins of the lower extremities are bilaterally patent and compressible segmentally. There is no evidence of deep vein thrombosis on either side. Valvular competence appears intact within the proximal deep venous systems bilaterally. The right greater saphenous vein is absent. The left greater saphenous vein appears patent and compressible segmentally. Ordering Physician: Abdirizak Sin Referring Physician: Brandon March Chi Performed By: Ana Del Valle RVT
--- NOTE | 2017-11-12 15:26 | NURSING ---
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 dopplers negative.
[2017-11-12] MEDS: Atorvastatin Calcium 40 MG Tablet PO (20:01)
[2017-11-12] MEDS: Baclofen 10 MG Tablet 5 MG PO (20:02)
[2017-11-12 20:08] VITALS: BP 158/78; PULSE 90; RESP 18; TEMP 36.6; O2SAT 94
[2017-11-12 21:35] VITALS: BMI 28.1
--- NOTE | 2017-11-12 23:57 | NURSING ---
Reviewed and agree with CREDIT COLLECTOR documentation and FIMs charting.
[2017-11-13] MEDS: Acetaminophen 325 MG Tablet 650 MG PO (06:19)
[2017-11-13] MEDS: Enoxaparin 40 MG/0.4 ML Syringe SC (06:20)
[2017-11-13 07:18] VITALS: BP 131/66; PULSE 78; RESP 17; TEMP 36.6; O2SAT 97
[2017-11-13] MEDS: Multivitamins,Therapeutic Tablet 1 TABLET PO (07:29)
[2017-11-13] MEDS: Chlorthalidone 50 MG Tablet 25 MG PO (07:29)
[2017-11-13] MEDS: Losartan Potassium 100 MG Tablet PO (07:29)
[2017-11-13] MEDS: Aspirin E.C. 81 MG Tablet PO (07:29)
--- NOTE | 2017-11-13 09:05 | PN.NEURO_ITS ---
Subjective: Patient sitting quietly in bedside recliner. Muscle spasms improved with the addition of Baclofen, she was able to sleep through the night. Tolerating therapy Denies any headaches, blurry vision or double vision. No issues with GI/. - Physical Exam General: Alert, Oriented x3, Cooperative HEENT: Atraumatic, PERRLA, EOMI, Normocephalic Neck: Supple, No JVD, Negative Carotid Bruits Lungs: Clear to auscultation, Normal air movement Cardiovascular: Regular rate, No murmurs Abdomen: Bowel Sounds Present, Soft, Non Tender Extremities: No edema, Capillary Refill Less than 3 Seconds Skin: No rashes, No breakdown Musculoskeletal: No Tenderness to Palpation of Joints or Extremities Neurological: Cranial nerves II-XII grossly intact Psych/Mental Status: Normal Affect, Appropriate, Alert and oriented to time, place, person, mood and affect Vital Signs Temp Pulse Resp BP Pulse Ox 97.8 F 78 17 131/66 H 97 11/13/17 07:18 11/13/17 07:18 11/13/17 07:18 11/13/17 07:18 11/13/17 07:18 Oxygen Delivery Method Room Air Weight: 67.676 kg Body Mass Index (BMI) 28.1 Finger Stick Blood Glucose 109 Intake and Output for Last 24 Hours 11/11/17 11/12/17 11/13/17 23:59 23:59 23:59 Intake Total 480 / 480 360 / 360 Balance 480 / 480 360 / 360 Active Medications Acetaminophen (Tylenol) 650 mg PO Q6H PRN PRN PRN Reason: Mild Pain (0-3/10)/Headache Last Admin: 11/13/17 06:19 Dose: 650 mg Aspirin (Ecotrin) 81 mg PO DAILY@0800 [facility] Last Admin: 11/13/17 07:29 Dose: 81 mg Atorvastatin Calcium (Lipitor) 40 mg PO QHS [facility] Last Admin: 11/12/17 20:01 Dose: 40 mg Baclofen (Lioresal) 5 mg PO 2000 [facility] Last Admin: 11/12/17 20:02 Dose: 5 mg Bisacodyl (Dulcolax) 10 mg RECTAL .PRN X 1 PRN PRN Reason: Constipation Chlorthalidone (Hygroton) 25 mg PO DAILY [facility] Last Admin: 11/13/17 07:29 Dose: 25 mg Enoxaparin Sodium (Lovenox) 40 mg SC DAILY@0600 [facility] Last Admin: 11/13/17 06:20 Dose: 40 mg Ergocalciferol (Vitamin D) 50,000 unit PO Q7D [facility] Last Admin: 11/09/17 09:51 Dose: 50,000 unit Lorazepam (Ativan) 0.5 mg PO QHS PRN PRN PRN Reason: INSOMNIA Last Admin: 11/12/17 20:08 Dose: 0.5 mg Losartan Potassium (Cozaar) 100 mg PO DAILY [facility] Last Admin: 11/13/17 07:29 Dose: 100 mg Magnesium Hydroxide (Milk Of Magnesia) 30 ml PO .PRN X 1 PRN PRN Reason: Constipation Multivitamins (Multivitamin) 1 tablet PO DAILY@0800 [facility] Last Admin: 11/13/17 07:29 Dose: 1 tablet Pantoprazole Sodium (Protonix) 40 mg PO DAILY PRN PRN Reason: STOMACH DISCOMFORT Senna/Docusate Sodium (Senokot-S, Aleah-Colace) 2 tablet PO BID [facility] Last Admin: 11/13/17 07:30 Dose: Not Given Medical Necessity - Tobacco Use Smoking Status: Never smoker Tobacco Use: Non-smoker Assessment/Plan All Active Problems (Last Updated 04/09/17 @ 14:08 by Kendrick Godwin) Stroke (Acute) Hip hematoma, right (Acute) Debility s/p small to moderate left MCA infarct. Complicated by HTN, HLD. goal of rehab is mormonism of functional independence. Plan: - Physical therapy for gait and balance - Occupational Therapy for ADLs - Speech therapy - As needed analgesics - Bowel protocol - Stroke prevention on ASA, Statin and Lovenox - DVT prophylaxis: SCDs, ASA, Lovenox - MRI brain -> showed small to moderate acute left MCA stroke (left posterior putamen) - MRA head/neck => showed normal carotids - [address] head- was negative for hemorrhage - Acute right hip hematoma- improved - Hx HTN continue home medications, Goal BP < 130/80 mmHg and goal Hba1c <7% - Avoid hypotension - Hx of HLD continue home statin - Hx of depression currently not on any medications - Hx of Fibromyalgia currently not on any medications - 30 day event recorder as outpatient. - Fall precautions - Muscle spasms=> Improved with Baclofen 5mg nightly increase to BID
--- NOTE | 2017-11-13 10:12 | NURSING ---
patient had complains of wearing ble knee high julia hose due to wrinkling and rolling down. The size the patient currently is correct by measurement. patient refusing to wear the hose at this time. Caro PANTOJA aware, new order for [place] wraps to ble and d/c teds.
[2017-11-13 12:48] VITALS: BMI 28.1
--- NOTE | 2017-11-13 13:26 | PCM.PN.HOSP ---
Subjective: Patient complain of muscle spasm mainly in right lower extremity from arc going upward to thigh. Patient has bilateral lower extremity Jas wraps. Patient has right upper extremity improvement in his strength and can lift overhead. Vitals/I&O's: Vital Signs Temp Pulse Resp BP Pulse Ox 97.8 F 78 17 131/66 H 97 11/13/17 07:18 11/13/17 07:18 11/13/17 07:18 11/13/17 07:18 11/13/17 07:18 Oxygen Delivery Method Room Air Weight: 149 lb 3.201 oz Body Mass Index (BMI) 28.1 Finger Stick Blood Glucose 109 Intake and Output for Last 24 Hours 11/11/17 11/12/17 11/13/17 23:59 23:59 23:59 Intake Total 480 / 480 360 / 360 220 / 220 Balance 480 / 480 360 / 360 220 / 220 General: Alert, Oriented x3, Cooperative HEENT: Atraumatic, PERRLA, EOMI, Normocephalic Oral: Moist Mucosa Neck: Supple, No JVD, Negative Carotid Bruits Lungs: Clear to auscultation, Normal air movement, No rhonchi, No wheeze, No rales Cardiovascular: Regular rate, Normal S1, Normal S2, No murmurs Abdomen: Bowel Sounds Present, Soft, Non Tender, Non-Distended Extremities: Capillary Refill Less than 3 Seconds, Edema Skin: No rashes, No breakdown Musculoskeletal: No Tenderness to Palpation of Joints or Extremities, Arthritic Changes Neurological: Cranial nerves II-XII grossly intact, - - Mild muscle weakness of right upper extremity and lower extremity. Psych/Mental Status: Normal Affect, Appropriate Current Medications Acetaminophen (Tylenol) 650 mg PO Q6H PRN PRN PRN Reason: Mild Pain (0-3/10)/Headache Last Admin: 11/13/17 06:19 Dose: 650 mg Aspirin (Ecotrin) 81 mg PO DAILY@0800 [facility] Last Admin: 11/13/17 07:29 Dose: 81 mg Atorvastatin Calcium (Lipitor) 40 mg PO QHS [facility] Last Admin: 11/12/17 20:01 Dose: 40 mg Baclofen (Lioresal) 5 mg PO 0600,2000 [facility] Bisacodyl (Dulcolax) 10 mg RECTAL .PRN X 1 PRN PRN Reason: Constipation Chlorthalidone (Hygroton) 25 mg PO DAILY [facility] Last Admin: 11/13/17 07:29 Dose: 25 mg Enoxaparin Sodium (Lovenox) 40 mg SC DAILY@0600 [facility] Last Admin: 11/13/17 06:20 Dose: 40 mg Ergocalciferol (Vitamin D) 50,000 unit PO Q7D [facility] Last Admin: 11/09/17 09:51 Dose: 50,000 unit Lorazepam (Ativan) 0.5 mg PO QHS PRN PRN PRN Reason: INSOMNIA Last Admin: 11/12/17 20:08 Dose: 0.5 mg Losartan Potassium (Cozaar) 100 mg PO DAILY [facility] Last Admin: 11/13/17 07:29 Dose: 100 mg Magnesium Hydroxide (Milk Of Magnesia) 30 ml PO .PRN X 1 PRN PRN Reason: Constipation Multivitamins (Multivitamin) 1 tablet PO DAILY@0800 [facility] Last Admin: 11/13/17 07:29 Dose: 1 tablet Pantoprazole Sodium (Protonix) 40 mg PO DAILY PRN PRN Reason: STOMACH DISCOMFORT Senna/Docusate Sodium (Senokot-S, Aleah-Colace) 2 tablet PO BID [facility] Last Admin: 11/13/17 07:30 Dose: Not Given Medical Necessity - Tobacco Use Smoking Status: Never smoker Tobacco Use: Non-smoker Assessment/Plan All Active Problems (Last Updated 04/09/17 @ 14:08 by Kendrick Godwin) Stroke (Acute) Hip hematoma, right (Acute) This is a 77-year-old female with history of hypertension, dyslipidemia, fibromyalgia who was discharged from [facility], acute care hospital after treated for right-sided weakness and sensory loss, slurred speech and facial droop consistent with left MCA stroke. Furthermore CT head at that time did not show any hemorrhage and so patient was given rtPA for ischemic stroke. The patient was initially in ICU and then discharged to acute rehab. Assessment and plan 1 Acute left MCA (left posterior putamen) ischemic stroke: MRI brain shows subacute lacunar ischemic infarct in the left posterior putamen. Head CT shows bilateral posterior cerebral arteries small in caliber greater on the right. No focal high-grade stenosis or occlusion. No aneurysm of [place]. Patient had repeat CT head which does not show bleed after 24 hours rtPA did not show bleed. Thereafter, was started on aspirin 81 mg once daily. The patient was advised 30 day event monitor as an outpatient. PT/OT and speech therapy A1c 5.7. Muscle cramps: BMP, magnesium and phosphorus ordered. Patient on baclofen. Has Jas wrap bandage. 2. Acute hematoma on the right hip status post TPA: Resolved. 3. Hypertension: Pressure is controlled 133/67. 4. Dyslipidemia: Fasting lipid profile shows total cholesterol 204, LDL 132, triglyceride 149, HDL 42. Patient said she has myalgia on Crestor but patient is tolerating atorvastatin 40 mg daily . DVT prophylaxis: On enoxaparin 40 subcu daily Active Medications Acetaminophen (Tylenol) 650 mg PO Q6H PRN PRN PRN Reason: Mild Pain (0-3/10)/Headache Last Admin: 11/13/17 06:19 Dose: 650 mg Aspirin (Ecotrin) 81 mg PO DAILY@0800 [facility] Last Admin: 11/13/17 07:29 Dose: 81 mg Atorvastatin Calcium (Lipitor) 40 mg PO QHS [facility] Last Admin: 11/12/17 20:01 Dose: 40 mg Baclofen (Lioresal) 5 mg PO 0600,1999 [facility] Bisacodyl (Dulcolax) 10 mg RECTAL .PRN X 1 PRN PRN Reason: Constipation Chlorthalidone (Hygroton) 25 mg PO DAILY [facility] Last Admin: 11/13/17 07:29 Dose: 25 mg Enoxaparin Sodium (Lovenox) 40 mg SC DAILY@0600 [facility] Last Admin: 11/13/17 06:20 Dose: 40 mg Ergocalciferol (Vitamin D) 50,000 unit PO Q7D [facility] Last Admin: 11/09/17 09:51 Dose: 50,000 unit Lorazepam (Ativan) 0.5 mg PO QHS PRN PRN PRN Reason: INSOMNIA Last Admin: 11/12/17 20:08 Dose: 0.5 mg Losartan Potassium (Cozaar) 100 mg PO DAILY [facility] Last Admin: 11/13/17 07:29 Dose: 100 mg Magnesium Hydroxide (Milk Of Magnesia) 30 ml PO .PRN X 1 PRN PRN Reason: Constipation Multivitamins (Multivitamin) 1 tablet PO DAILY@0800 [facility] Last Admin: 11/13/17 07:29 Dose: 1 tablet Pantoprazole Sodium (Protonix) 40 mg PO DAILY PRN PRN Reason: STOMACH DISCOMFORT Senna/Docusate Sodium (Senokot-S, Aleah-Colace) 2 tablet PO BID [facility] Last Admin: 11/13/17 07:30 Dose: Not Given Code Visit Inpatient E&M: 50229 Subs Hosp L2
--- NOTE | 2017-11-13 16:12 | CHAPLAIN ---
Type of Pastoral Visit _x__ Initial Visit ___ Follow-up Visit ___ On-call Visit ___ General Patient Visit ___ Spiritual Assessment ___ Family Conference ___ Bereavement ___ Rapid Response ___ Code Blue ___ Other (describe below) Pastoral Care Referral From _x__ Patient ___ Family ___ Nurse ___ Physician ___ Senior Controls Engineer ___ Butter Maker ___ Other (describe below) Sacrament/Intervention _x__ Active listening ___ Anointing ___ Gnosticism ___ Bereavement ___ Communion ___ Amber exploration ___ ___ Life review _x__ Prayer ___ Reconciliation ___ Sacrament of Sick ___ Supportive presence ___ Wedding ___ Other (describe below) Pastoral Comments patient is making great progress in her estimation and as to what she is told so she is encouraged; pt has many cards and carranza in room and we discuss the support she enjoys; spouse enters room during visit; rain shower turns into a rainbow during our visit and we consider the promises of God and the beauty of creation; pt belongs to local [employer] and has appreciation for amber based support
[2017-11-13 18:15] LABS: Anion Gap 8 (5-15); BUN 26 mg/dL (7-18); BUN/Creat Ratio 25.5 RATIO (10-20); Calcium,Total 10.3 mg/dL (8.5-10.1); Chloride 103 mmol/L (98-107); Creatinine, Serum 1.02 mg/dL (0.55-1.02); EST Glomerular Filtration Rate 56 mL/min (>60); Est Glom Filt Rate - Afr Amer 67 mL/min (>60); Glucose 95 mg/dL (74-106); Phosphorus 3.2 mg/dL (2.5-4.9); Sodium Level 139 mmol/L (136-145)
[2017-11-13 19:29] VITALS: BP 159/77; PULSE 90; RESP 17; TEMP 36.5; O2SAT 95
[2017-11-13] MEDS: Baclofen 10 MG Tablet 5 MG PO (20:09)
[2017-11-13] MEDS: Atorvastatin Calcium 40 MG Tablet PO (20:09)
[2017-11-13] MEDS: LORazepam 0.5 MG Tablet PO (20:15)
[2017-11-13 20:50] VITALS: BMI 28.1
--- NOTE | 2017-11-14 00:39 | NURSING ---
Reviewed and agree with [employer]PARTMENT [employer]IEF LIBRARIAN documentation and FIMs charting.
[2017-11-14] MEDS: Enoxaparin 40 MG/0.4 ML Syringe SC (05:56)
[2017-11-14] MEDS: Baclofen 10 MG Tablet 5 MG PO (05:57)
[2017-11-14 06:51] VITALS: BP 152/86; PULSE 78; RESP 17; TEMP 36.4; O2SAT 95
[2017-11-14] MEDS: Losartan Potassium 100 MG Tablet PO (08:20)
[2017-11-14] MEDS: Aspirin E.C. 81 MG Tablet PO (08:20)
[2017-11-14] MEDS: Multivitamins,Therapeutic Tablet 1 TABLET PO (08:20)
[2017-11-14] MEDS: Chlorthalidone 50 MG Tablet 25 MG PO (08:20)
[2017-11-14 08:35] VITALS: BMI 28.1
--- NOTE | 2017-11-14 09:03 | PN.NEURO_ITS ---
Subjective: Patient seen, having some depression was on Paxil at home as needed will restart her on that, continue to wake with muscle spasms increase her current dose of Baclofen. Tolerating therapy. No issues with GI/. - Physical Exam General: Alert, Oriented x3, Cooperative HEENT: Atraumatic, PERRLA, EOMI, Normocephalic Neck: Supple, No JVD, Negative Carotid Bruits Lungs: Clear to auscultation, Normal air movement Cardiovascular: Regular rate, No murmurs Abdomen: Bowel Sounds Present, Soft, Non Tender Extremities: No edema, Capillary Refill Less than 3 Seconds Skin: No rashes, No breakdown Musculoskeletal: No Tenderness to Palpation of Joints or Extremities Neurological: Cranial nerves II-XII grossly intact Psych/Mental Status: Normal Affect, Appropriate, Alert and oriented to time, place, person, mood and affect Vital Signs Temp Pulse Resp BP Pulse Ox 97.6 F L 78 17 152/86 H 95 11/14/17 06:51 11/14/17 06:51 11/14/17 06:51 11/14/17 06:51 11/14/17 06:51 Oxygen Delivery Method Room Air Weight: 68.7 kg Body Mass Index (BMI) 28.1 Finger Stick Blood Glucose 109 Intake and Output for Last 24 Hours 11/12/17 11/13/17 11/14/17 23:59 23:59 23:59 Intake Total 360 / 360 440 / 440 240 / 240 Balance 360 / 360 440 / 440 240 / 240 Laboratory Tests Past 24 Hrs 11/13/17 17:13 Sodium 139 Potassium 4.0 Chloride 103 Carbon Dioxide 28.0 Anion Gap 8 BUN 26 H Creatinine 1.02 Estim Creat Clear Calc 34.30 Est GFR (MDRD) Af Amer 67 Est GFR (MDRD) Non-Af 56 L BUN/Creatinine Ratio 25.5 H Glucose 95 Calcium 10.3 H Phosphorus 3.2 Magnesium 2.0 Active Medications Acetaminophen (Tylenol) 650 mg PO Q6H PRN PRN PRN Reason: Mild Pain (0-3/10)/Headache Last Admin: 11/13/17 06:19 Dose: 650 mg Aspirin (Ecotrin) 81 mg PO DAILY@0800 [facility] Last Admin: 11/14/17 08:20 Dose: 81 mg Atorvastatin Calcium (Lipitor) 40 mg PO QHS [facility] Last Admin: 11/13/17 20:09 Dose: 40 mg Baclofen (Lioresal) 5 mg PO 599,1999 [facility] Last Admin: 11/14/17 05:57 Dose: 5 mg Bisacodyl (Dulcolax) 10 mg RECTAL .PRN X 1 PRN PRN Reason: Constipation Chlorthalidone (Hygroton) 25 mg PO DAILY [facility] Last Admin: 11/14/17 08:20 Dose: 25 mg Enoxaparin Sodium (Lovenox) 40 mg SC DAILY@0600 [facility] Last Admin: 11/14/17 05:56 Dose: 40 mg Ergocalciferol (Vitamin D) 50,000 unit PO Q7D [facility] Last Admin: 11/09/17 09:51 Dose: 50,000 unit Lorazepam (Ativan) 0.5 mg PO QHS PRN PRN PRN Reason: INSOMNIA Last Admin: 11/13/17 20:15 Dose: 0.5 mg Losartan Potassium (Cozaar) 100 mg PO DAILY [facility] Last Admin: 11/14/17 08:20 Dose: 100 mg Magnesium Hydroxide (Milk Of Magnesia) 30 ml PO .PRN X 1 PRN PRN Reason: Constipation Multivitamins (Multivitamin) 1 tablet PO DAILY@0800 [facility] Last Admin: 11/14/17 08:20 Dose: 1 tablet Pantoprazole Sodium (Protonix) 40 mg PO DAILY PRN PRN Reason: STOMACH DISCOMFORT Senna/Docusate Sodium (Senokot-S, Aleah-Colace) 2 tablet PO BID [facility] Last Admin: 11/14/17 08:18 Dose: Not Given Medical Necessity - Tobacco Use Smoking Status: Never smoker Tobacco Use: Non-smoker Assessment/Plan All Active Problems (Last Updated 04/09/17 @ 14:08 by Kendrick Godwin) Stroke (Acute) Hip hematoma, right (Acute) Debility s/p small to moderate left MCA infarct. Complicated by HTN, HLD. goal of rehab is church of functional independence. Plan: - Physical therapy for gait and balance - Occupational Therapy for ADLs - Speech therapy - As needed analgesics - Bowel protocol - Stroke prevention on ASA, Statin and Lovenox - DVT prophylaxis: SCDs, ASA, Lovenox - MRI brain -> showed small to moderate acute left MCA stroke (left posterior putamen) - MRA head/neck => showed normal carotids - [address] head- was negative for hemorrhage - Acute right hip hematoma- improved - Hx HTN continue home medications, Goal BP < 130/80 mmHg and goal Hba1c <7% - Avoid hypotension - Hx of HLD continue home statin - Hx of depression currently not on any medications, was on a low dose of Paxil as needed => restart Paxil at 20mg daily - Hx of Fibromyalgia currently not on any medications - 30 day event recorder as outpatient. - Fall precautions - Muscle spasms=> Improved with Baclofen 5mg nightly increase to BID titrate up to 10mg BID
[2017-11-14 18:24] VITALS: PULSE 92; RESP 18; TEMP 36.5; O2SAT 95
[2017-11-14 18:29] VITALS: BP 112/85
[2017-11-14 20:00] VITALS: PULSE 92; RESP 18; BMI 28.1
[2017-11-14] MEDS: Baclofen 10 MG Tablet PO (20:26)
[2017-11-14] MEDS: Atorvastatin Calcium 40 MG Tablet PO (20:26)
[2017-11-15] MEDS: Acetaminophen 325 MG Tablet 650 MG PO (02:21)
[2017-11-15] MEDS: Baclofen 10 MG Tablet PO ×2 (05:47→21:10)
[2017-11-15] MEDS: Enoxaparin 40 MG/0.4 ML Syringe SC (05:47)
[2017-11-15 07:21] VITALS: BP 133/68; PULSE 92; RESP 16; TEMP 36.8; O2SAT 96
[2017-11-15] MEDS: Multivitamins,Therapeutic Tablet 1 TABLET PO (08:33)
[2017-11-15] MEDS: Aspirin E.C. 81 MG Tablet PO (08:33)
[2017-11-15] MEDS: Chlorthalidone 50 MG Tablet 25 MG PO (08:34)
[2017-11-15] MEDS: Losartan Potassium 100 MG Tablet PO (08:35)
[2017-11-15 08:36] VITALS: BP 136/81; PULSE 78; RESP 20; TEMP 36.6; O2SAT 94
--- NOTE | 2017-11-15 09:38 | PCM.PN.NEU ---
Subjective: Staffed in team meeting. Family at bedside, questions answered. With Physical therapy, she is able to walk about 125 feet with wheel walker at minimal assist. With Occupational therapy, she is set up to supervision with grooming, With bathing she is contact guard. She is able to do her own up body dressing at supervision, for lower body dressing she is minimal assist. She is minimal assist for toileting and transfers. With Speech therapy, she continues to have mild dysarthria will continue to work on oral motor exercises, voice projection, and slowing her rate of speech. The patient feels she is about 90 to 95% back to her baseline. With Nursing, she is still have muscle spasms and not sleeping well, will adjust her Baclofen dosing time and add back her at home sleeping pill. Will re-team her again next 11/22. - Physical Exam General: Alert, Oriented x3, Cooperative HEENT: Atraumatic, PERRLA, EOMI, Normocephalic Neck: Supple, No JVD, Negative Carotid Bruits Lungs: Clear to auscultation, Normal air movement Cardiovascular: Regular rate, No murmurs Abdomen: Bowel Sounds Present, Soft, Non Tender Extremities: No edema, Capillary Refill Less than 3 Seconds Skin: No rashes, No breakdown Musculoskeletal: No Tenderness to Palpation of Joints or Extremities Neurological: Cranial nerves II-XII grossly intact Psych/Mental Status: Normal Affect, Appropriate, Alert and oriented to time, place, person, mood and affect Vital Signs Temp Pulse Resp BP Pulse Ox 97.8 F 78 20 H 136/81 H 94 11/15/17 08:36 11/15/17 08:36 11/15/17 08:36 11/15/17 08:36 11/15/17 08:36 Oxygen Delivery Method Room Air Weight: 68.7 kg Body Mass Index (BMI) 28.1 Finger Stick Blood Glucose 109 Intake and Output for Last 24 Hours 11/13/17 11/14/17 11/15/17 23:59 23:59 23:59 Intake Total 440 / 440 480 / 480 Balance 440 / 440 480 / 480 Active Medications Acetaminophen (Tylenol) 650 mg PO Q6H PRN PRN PRN Reason: Mild Pain (0-3/10)/Headache Last Admin: 11/15/17 02:21 Dose: 650 mg Aspirin (Ecotrin) 81 mg PO DAILY@0800 [facility] Last Admin: 11/15/17 08:33 Dose: 81 mg Atorvastatin Calcium (Lipitor) 40 mg PO QHS [facility] Last Admin: 11/14/17 20:26 Dose: 40 mg Baclofen (Lioresal) 10 mg PO 0600,2200 [facility] Bisacodyl (Dulcolax) 10 mg RECTAL .PRN X 1 PRN PRN Reason: Constipation Chlorthalidone (Hygroton) 25 mg PO DAILY [facility] Last Admin: 11/15/17 08:34 Dose: 25 mg Enoxaparin Sodium (Lovenox) 40 mg SC DAILY@0600 [facility] Last Admin: 11/15/17 05:47 Dose: 40 mg Ergocalciferol (Vitamin D) 50,000 unit PO Q7D [facility] Last Admin: 11/09/17 09:51 Dose: 50,000 unit Losartan Potassium (Cozaar) 100 mg PO DAILY [facility] Last Admin: 11/15/17 08:35 Dose: 100 mg Magnesium Hydroxide (Milk Of Magnesia) 30 ml PO .PRN X 1 PRN PRN Reason: Constipation Multivitamins (Multivitamin) 1 tablet PO DAILY@0800 [facility] Last Admin: 11/15/17 08:33 Dose: 1 tablet Pantoprazole Sodium (Protonix) 40 mg PO DAILY PRN PRN Reason: STOMACH DISCOMFORT Paroxetine HCl (Paxil) 20 mg PO DAILY [facility] Last Admin: 11/15/17 08:34 Dose: 20 mg Senna/Docusate Sodium (Senokot-S, Aleah-Colace) 2 tablet PO BID [facility] Last Admin: 11/15/17 08:35 Dose: Not Given Medical Necessity - Tobacco Use Smoking Status: Never smoker Tobacco Use: Non-smoker Assessment/Plan All Active Problems (Last Updated 04/09/17 @ 14:08 by Kendrick Godwin) Stroke (Acute) Hip hematoma, right (Acute) Debility s/p small to moderate left MCA infarct. Complicated by HTN, HLD. goal of rehab is caodaism of functional independence. Plan: - Physical therapy for gait and balance - Occupational Therapy for ADLs - Speech therapy - As needed analgesics - Bowel protocol - Stroke prevention on ASA, Statin and Lovenox - DVT prophylaxis: SCDs, ASA, Lovenox - MRI brain -> showed small to moderate acute left MCA stroke (left posterior putamen) - MRA head/neck => showed normal carotids - [address] head- was negative for hemorrhage - Acute right hip hematoma- improved - Hx HTN continue home medications, Goal BP < 130/80 mmHg and goal Hba1c <7% - Avoid hypotension - Hx of HLD continue home statin - Hx of depression currently not on any medications, was on a low dose of Paxil as needed => restart Paxil at 20mg daily - Hx of Fibromyalgia currently not on any medications - 30 day event recorder as outpatient. - Fall precautions - Muscle spasms=> Improved with Baclofen 5mg nightly increase to BID titrate up to 10mg BID - Insomnia => continue patient home sleeping pill - Doxepin 25 mg at bedtime
--- NOTE | 2017-11-15 09:49 | CASEMGMT ---
Team meeting held. Patient present as well as patient family. No discharge date set at this time. Patient to continue with further care and treatment on the Inpatient Rehab Unit. Patient plans to discharge to home with spouse at time of discharge. Patient approved 24 Medicare days with a discharge on or by 12/02/17. Support given. Will continue to follow. Bonita MOSELEY, BREAST TRIMMER
--- NOTE | 2017-11-15 09:53 | PN.NEURO_ITS ---
Subjective: Staffed in team meeting. Family at bedside, questions answered. With Physical therapy, she is able to walk about 125 feet with wheel walker at minimal assist. With Occupational therapy, she is set up to supervision with grooming, With bathing she is contact guard. She is able to do her own up body dressing at supervision, for lower body dressing she is minimal assist. She is minimal assist for toileting and transfers. With Speech therapy, she continues to have mild dysarthria will continue to work on oral motor exercises, voice projection, and slowing her rate of speech. The patient feels she is about 90 to 95% back to her baseline. With Nursing, she is still have muscle spasms and not sleeping well, will adjust her Baclofen dosing time and add back her at home sleeping pill. Will re-team her again next 11/22. - Physical Exam General: Alert, Oriented x3, Cooperative HEENT: Atraumatic, PERRLA, EOMI, Normocephalic Neck: Supple, No JVD, Negative Carotid Bruits Lungs: Clear to auscultation, Normal air movement Cardiovascular: Regular rate, No murmurs Abdomen: Bowel Sounds Present, Soft, Non Tender Extremities: No edema, Capillary Refill Less than 3 Seconds Skin: No rashes, No breakdown Musculoskeletal: No Tenderness to Palpation of Joints or Extremities Neurological: Cranial nerves II-XII grossly intact Psych/Mental Status: Normal Affect, Appropriate, Alert and oriented to time, place, person, mood and affect Vital Signs Temp Pulse Resp BP Pulse Ox 97.8 F 78 20 H 136/81 H 94 11/15/17 08:36 11/15/17 08:36 11/15/17 08:36 11/15/17 08:36 11/15/17 08:36 Oxygen Delivery Method Room Air Weight: 68.7 kg Body Mass Index (BMI) 28.1 Finger Stick Blood Glucose 109 Intake and Output for Last 24 Hours 11/13/17 11/14/17 11/15/17 23:59 23:59 23:59 Intake Total 440 / 440 480 / 480 Balance 440 / 440 480 / 480 Active Medications Acetaminophen (Tylenol) 650 mg PO Q6H PRN PRN PRN Reason: Mild Pain (0-3/10)/Headache Last Admin: 11/15/17 02:21 Dose: 650 mg Aspirin (Ecotrin) 81 mg PO DAILY@0800 [facility] Last Admin: 11/15/17 08:33 Dose: 81 mg Atorvastatin Calcium (Lipitor) 40 mg PO QHS [facility] Last Admin: 11/14/17 20:26 Dose: 40 mg Baclofen (Lioresal) 10 mg PO 0600,2200 [facility] Bisacodyl (Dulcolax) 10 mg RECTAL .PRN X 1 PRN PRN Reason: Constipation Chlorthalidone (Hygroton) 25 mg PO DAILY [facility] Last Admin: 11/15/17 08:34 Dose: 25 mg Enoxaparin Sodium (Lovenox) 40 mg SC DAILY@0600 [facility] Last Admin: 11/15/17 05:47 Dose: 40 mg Ergocalciferol (Vitamin D) 50,000 unit PO Q7D [facility] Last Admin: 11/09/17 09:51 Dose: 50,000 unit Losartan Potassium (Cozaar) 100 mg PO DAILY [facility] Last Admin: 11/15/17 08:35 Dose: 100 mg Magnesium Hydroxide (Milk Of Magnesia) 30 ml PO .PRN X 1 PRN PRN Reason: Constipation Multivitamins (Multivitamin) 1 tablet PO DAILY@0800 [facility] Last Admin: 11/15/17 08:33 Dose: 1 tablet Pantoprazole Sodium (Protonix) 40 mg PO DAILY PRN PRN Reason: STOMACH DISCOMFORT Paroxetine HCl (Paxil) 20 mg PO DAILY [facility] Last Admin: 11/15/17 08:34 Dose: 20 mg Senna/Docusate Sodium (Senokot-S, Aleah-Colace) 2 tablet PO BID [facility] Last Admin: 11/15/17 08:35 Dose: Not Given Medical Necessity - Tobacco Use Smoking Status: Never smoker Tobacco Use: Non-smoker Assessment/Plan All Active Problems (Last Updated 04/09/17 @ 14:08 by Kendrick Godwin) Stroke (Acute) Hip hematoma, right (Acute) Debility s/p small to moderate left MCA infarct. Complicated by HTN, HLD. goal of rehab is hoahaoism of functional independence. Plan: - Physical therapy for gait and balance - Occupational Therapy for ADLs - Speech therapy - As needed analgesics - Bowel protocol - Stroke prevention on ASA, Statin and Lovenox - DVT prophylaxis: SCDs, ASA, Lovenox - MRI brain -> showed small to moderate acute left MCA stroke (left posterior putamen) - MRA head/neck => showed normal carotids - [address] head- was negative for hemorrhage - Acute right hip hematoma- improved - Hx HTN continue home medications, Goal BP < 130/80 mmHg and goal Hba1c <7% - Avoid hypotension - Hx of HLD continue home statin - Hx of depression currently not on any medications, was on a low dose of Paxil as needed => restart Paxil at 20mg daily - Hx of Fibromyalgia currently not on any medications - 30 day event recorder as outpatient. - Fall precautions - Muscle spasms=> Improved with Baclofen 5mg nightly increase to BID titrate up to 10mg BID - Insomnia => continue patient home sleeping pill - Doxepin 25 mg at bedtime
[2017-11-15 13:41] VITALS: BMI 28.1
--- NOTE | 2017-11-15 16:33 | PN_ITS ---
Subjective: Participating good with the physical therapy. Patient is to complain of some muscle spasm. On baclofen. Objective: General: Alert, Oriented x3, Cooperative HEENT: Atraumatic, PERRLA, EOMI, Normocephalic Oral: Moist Mucosa Neck: Supple, No JVD, Negative Carotid Bruits Lungs: Clear to auscultation, Normal air movement, No rhonchi, No wheeze, No rales Cardiovascular: Regular rate, Normal S1, Normal S2, No murmurs Abdomen: Bowel Sounds Present, Soft, Non Tender, Non-Distended Extremities: Capillary Refill Less than 3 Seconds, Edema Skin: No rashes, No breakdown Musculoskeletal: No Tenderness to Palpation of Joints or Extremities, Arthritic Changes Neurological: Cranial nerves II-XII grossly intact, - - Mild muscle weakness of right upper extremity and lower extremity. Psych/Mental Status: Normal Affect, Appropriate Vitals/I&O's: Vital Signs Temp Pulse Resp BP Pulse Ox 97.8 F 78 20 H 136/81 H 94 11/15/17 08:36 11/15/17 08:36 11/15/17 08:36 11/15/17 08:36 11/15/17 08:36 Oxygen Delivery Method Room Air Weight: 151 lb 7.321 oz Body Mass Index (BMI) 28.1 Finger Stick Blood Glucose 109 Intake and Output for Last 24 Hours 11/13/17 11/14/17 11/15/17 23:59 23:59 23:59 Intake Total 440 / 440 480 / 480 240 / 240 Balance 440 / 440 480 / 480 240 / 240 General: Alert, Oriented x3, Cooperative HEENT: Atraumatic, PERRLA, EOMI, Normocephalic Neck: Supple, No JVD, Negative Carotid Bruits Lungs: Clear to auscultation, Normal air movement, No rhonchi, No wheeze Cardiovascular: Regular rate, No murmurs Abdomen: Bowel Sounds Present, Soft, Non Tender Extremities: No edema, Capillary Refill Less than 3 Seconds Skin: No rashes, No breakdown Musculoskeletal: No Tenderness to Palpation of Joints or Extremities, Arthritic Changes Neurological: Cranial nerves II-XII grossly intact, - Psych/Mental Status: Normal Affect, Appropriate Current Medications Acetaminophen (Tylenol) 650 mg PO Q6H PRN PRN PRN Reason: Mild Pain (0-3/10)/Headache Last Admin: 10/04/18 02:21 Dose: 650 mg Aspirin (Ecotrin) 81 mg PO DAILY@0800 [facility] Last Admin: 11/15/17 08:33 Dose: 81 mg Atorvastatin Calcium (Lipitor) 40 mg PO QHS [facility] Last Admin: 11/14/17 20:26 Dose: 40 mg Baclofen (Lioresal) 10 mg PO 0600,2200 [facility] Bisacodyl (Dulcolax) 10 mg RECTAL .PRN X 1 PRN PRN Reason: Constipation Chlorthalidone (Hygroton) 25 mg PO DAILY [facility] Last Admin: 11/15/17 08:34 Dose: 25 mg Doxepin HCl (Sinequan) 25 mg PO QHS PRN PRN Reason: SLEEP Enoxaparin Sodium (Lovenox) 40 mg SC DAILY@0600 [facility] Last Admin: 11/15/17 05:47 Dose: 40 mg Ergocalciferol (Vitamin D) 50,000 unit PO Q7D [facility] Last Admin: 11/09/17 09:51 Dose: 50,000 unit Losartan Potassium (Cozaar) 100 mg PO DAILY [facility] Last Admin: 11/15/17 08:35 Dose: 100 mg Magnesium Hydroxide (Milk Of Magnesia) 30 ml PO .PRN X 1 PRN PRN Reason: Constipation Multivitamins (Multivitamin) 1 tablet PO DAILY@0800 [facility] Last Admin: 11/15/17 08:33 Dose: 1 tablet Pantoprazole Sodium (Protonix) 40 mg PO DAILY PRN PRN Reason: STOMACH DISCOMFORT Paroxetine HCl (Paxil) 20 mg PO DAILY [facility] Last Admin: 11/15/17 08:34 Dose: 20 mg Senna/Docusate Sodium (Senokot-S, Aleah-Colace) 2 tablet PO BID [facility] Last Admin: 11/15/17 08:35 Dose: Not Given Medical Necessity - Tobacco Use Smoking Status: Never smoker Tobacco Use: Non-smoker Assessment/Plan All Active Problems (Last Updated 04/09/17 @ 14:08 by Kendrick Godwin) Stroke (Acute) Hip hematoma, right (Acute) This is a 77-year-old female with history of hypertension, dyslipidemia, fibromyalgia who was discharged from [facility] acute care hospital after treated for right-sided weakness and sensory loss, slurred speech and facial droop consistent with left MCA stroke. Furthermore CT head at that time did not show any hemorrhage and so patient was given rtPA for ischemic stroke. The patient was initially in ICU and then discharged to acute rehab. Assessment and plan 1 Acute left MCA (left posterior putamen) ischemic stroke: MRI brain shows subacute lacunar ischemic infarct in the left posterior putamen. Head CT shows bilateral posterior cerebral arteries small in caliber greater on the right. No focal high-grade stenosis or occlusion. No aneurysm of [place]. Patient had repeat CT head which does not show bleed after 24 hours rtPA did not show bleed. Thereafter, was started on aspirin 81 mg once daily. The patient was advised 30 day event monitor as an outpatient. PT/OT and speech therapy A1c 5.7. Muscle cramps: BMP, magnesium and phosphorus were reviewed. K4.0. Phosphorus 3.2. Magnesium 2.0. All within normal limits. Patient on baclofen. Has Jas wrap bandage. 2. Acute hematoma on the right hip status post TPA: Resolved. 3. Hypertension: Pressure is controlled 133/67. 4. Dyslipidemia: Fasting lipid profile shows total cholesterol 204, LDL 132, triglyceride 149, HDL 42. Patient said she has myalgia on Crestor but patient is tolerating atorvastatin 40 mg daily . DVT prophylaxis: On enoxaparin 40 subcu daily Active Medications Acetaminophen (Tylenol) 650 mg PO Q6H PRN PRN PRN Reason: Mild Pain (0-3/10)/Headache Last Admin: 11/15/17 02:21 Dose: 650 mg Aspirin (Ecotrin) 81 mg PO DAILY@0800 [facility] Last Admin: 11/15/17 08:33 Dose: 81 mg Atorvastatin Calcium (Lipitor) 40 mg PO QHS [facility] Last Admin: 11/14/17 20:26 Dose: 40 mg Baclofen (Lioresal) 10 mg PO 0600,2200 [facility] Bisacodyl (Dulcolax) 10 mg RECTAL .PRN X 1 PRN PRN Reason: Constipation Chlorthalidone (Hygroton) 25 mg PO DAILY [facility] Last Admin: 11/15/17 08:34 Dose: 25 mg Doxepin HCl (Sinequan) 25 mg PO QHS PRN PRN Reason: SLEEP Enoxaparin Sodium (Lovenox) 40 mg SC DAILY@0600 [facility] Last Admin: 11/15/17 05:47 Dose: 40 mg Ergocalciferol (Vitamin D) 50,000 unit PO Q7D [facility] Last Admin: 11/09/17 09:51 Dose: 50,000 unit Losartan Potassium (Cozaar) 100 mg PO DAILY [facility] Last Admin: 11/15/17 08:35 Dose: 100 mg Magnesium Hydroxide (Milk Of Magnesia) 30 ml PO .PRN X 1 PRN PRN Reason: Constipation Multivitamins (Multivitamin) 1 tablet PO DAILY@0800 [facility] Last Admin: 11/15/17 08:33 Dose: 1 tablet Pantoprazole Sodium (Protonix) 40 mg PO DAILY PRN PRN Reason: STOMACH DISCOMFORT Paroxetine HCl (Paxil) 20 mg PO DAILY [facility] Last Admin: 11/15/17 08:34 Dose: 20 mg Senna/Docusate Sodium (Senokot-S, Aleah-Colace) 2 tablet PO BID [facility] Last Admin: 11/15/17 08:35 Dose: Not Given Code Visit Inpatient E&M: 44651 Subs Hosp L2
[2017-11-15 20:54] VITALS: BP 151/68; PULSE 75; RESP 18; TEMP 36.6; O2SAT 97
[2017-11-15] MEDS: Doxepin Hcl 25 MG Capsule PO (21:09)
[2017-11-15] MEDS: Atorvastatin Calcium 40 MG Tablet PO (21:10)
[2017-11-16 05:00] VITALS: BMI 28.1
[2017-11-16] MEDS: Enoxaparin 40 MG/0.4 ML Syringe SC (06:46)
[2017-11-16] MEDS: Baclofen 10 MG Tablet PO (06:47)
[2017-11-16 07:23] VITALS: BP 145/64; PULSE 63; RESP 18; TEMP 36.5; O2SAT 95
[2017-11-16] MEDS: Losartan Potassium 100 MG Tablet PO (07:35)
[2017-11-16] MEDS: Chlorthalidone 50 MG Tablet 25 MG PO (07:35)
[2017-11-16] MEDS: Aspirin E.C. 81 MG Tablet PO (07:35)
[2017-11-16] MEDS: Multivitamins,Therapeutic Tablet 1 TABLET PO (07:35)
--- NOTE | 2017-11-16 09:35 | NURSING ---
patient refusing Jas wraps, patient stating that she has decrease mobility to ankles when jas wraps are on. discussed with patient now reordered knee high julia hose ble. patient stated that she has increased tiredness after taking her home medication sleeping medication with baclofen. baclofen decreased back to 5 mg.
--- NOTE | 2017-11-16 11:02 | PN.NEURO_ITS ---
Subjective: Patient dozing in bedside recliner, easily aroused. No new complaints, slept well. Denies any headaches, blurry vision, or double vision. Tolerating therapy, no issues with GI/. - Physical Exam General: Alert, Oriented x3, Cooperative HEENT: Atraumatic, PERRLA, EOMI, Normocephalic Neck: Supple, No JVD, Negative Carotid Bruits Lungs: Clear to auscultation, Normal air movement Cardiovascular: Regular rate, No murmurs Abdomen: Bowel Sounds Present, Soft, Non Tender Extremities: No edema, Capillary Refill Less than 3 Seconds Skin: No rashes, No breakdown Musculoskeletal: No Tenderness to Palpation of Joints or Extremities Neurological: Cranial nerves II-XII grossly intact Psych/Mental Status: Normal Affect, Appropriate, Alert and oriented to time, place, person, mood and affect Vital Signs Temp Pulse Resp BP Pulse Ox 97.7 F L 63 18 145/64 H 95 11/16/17 07:23 11/16/17 07:23 11/16/17 07:23 11/16/17 07:23 11/16/17 07:23 Oxygen Delivery Method Room Air Weight: 68.7 kg Body Mass Index (BMI) 28.1 Finger Stick Blood Glucose 109 Intake and Output for Last 24 Hours 11/14/17 11/15/17 11/16/17 23:59 23:59 23:59 Intake Total 480 / 480 240 / 240 480 / 480 Balance 480 / 480 240 / 240 480 / 480 Active Medications Acetaminophen (Tylenol) 650 mg PO Q6H PRN PRN PRN Reason: Mild Pain (0-3/10)/Headache Last Admin: 11/15/17 02:21 Dose: 650 mg Aspirin (Ecotrin) 81 mg PO DAILY@0800 [facility] Last Admin: 11/16/17 07:35 Dose: 81 mg Atorvastatin Calcium (Lipitor) 40 mg PO QHS [facility] Last Admin: 11/15/17 21:10 Dose: 40 mg Baclofen (Lioresal) 5 mg PO 0600,2000 [facility] Bisacodyl (Dulcolax) 10 mg RECTAL .PRN X 1 PRN PRN Reason: Constipation Chlorthalidone (Hygroton) 25 mg PO DAILY [facility] Last Admin: 11/16/17 07:35 Dose: 25 mg Doxepin HCl (Sinequan) 25 mg PO QHS PRN PRN Reason: SLEEP Last Admin: 11/15/17 21:09 Dose: 25 mg Enoxaparin Sodium (Lovenox) 40 mg SC DAILY@0600 [facility] Last Admin: 11/16/17 06:46 Dose: 40 mg Ergocalciferol (Vitamin D) 50,000 unit PO Q7D [facility] Last Admin: 11/16/17 07:37 Dose: 50,000 unit Losartan Potassium (Cozaar) 100 mg PO DAILY [facility] Last Admin: 11/16/17 07:35 Dose: 100 mg Magnesium Hydroxide (Milk Of Magnesia) 30 ml PO .PRN X 1 PRN PRN Reason: Constipation Multivitamins (Multivitamin) 1 tablet PO DAILY@0800 [facility] Last Admin: 11/16/17 07:35 Dose: 1 tablet Pantoprazole Sodium (Protonix) 40 mg PO DAILY PRN PRN Reason: STOMACH DISCOMFORT Paroxetine HCl (Paxil) 20 mg PO DAILY [facility] Last Admin: 11/16/17 07:35 Dose: 20 mg Senna/Docusate Sodium (Senokot-S, Aleah-Colace) 2 tablet PO BID [facility] Last Admin: 11/16/17 07:36 Dose: Not Given Medical Necessity - Tobacco Use Smoking Status: Never smoker Tobacco Use: Non-smoker Assessment/Plan All Active Problems (Last Updated 04/09/17 @ 14:08 by Kendrick Godwin) Stroke (Acute) Hip hematoma, right (Acute) Debility s/p small to moderate left MCA infarct. Complicated by HTN, HLD. goal of rehab is [facility] of functional independence. Plan: - Physical therapy for gait and balance - Occupational Therapy for ADLs - Speech therapy - As needed analgesics - Bowel protocol - Stroke prevention on ASA, Statin and Lovenox - DVT prophylaxis: SCDs, ASA, Lovenox - MRI brain -> showed small to moderate acute left MCA stroke (left posterior putamen) - MRA head/neck => showed normal carotids - [address] head- was negative for hemorrhage - Acute right hip hematoma- improved - Hx HTN continue home medications, Goal BP < 130/80 mmHg and goal Hba1c <7% - Avoid hypotension - Hx of HLD continue home statin - Hx of depression currently not on any medications, was on a low dose of Paxil as needed => restart Paxil at 20mg daily - Hx of Fibromyalgia currently not on any medications - 30 day event recorder as outpatient. - Fall precautions - Muscle spasms=> Improved with Baclofen 5mg nightly increase to BID titrate up to 10mg BID => decrease to 5mg BID now that she is taking her sleeping pill at night. - Insomnia => continue patient home sleeping pill - Doxepin 25 mg at bedtime
[2017-11-16 13:07] VITALS: BMI 28.1
[2017-11-16 20:30] VITALS: BP 154/76; PULSE 81; RESP 18; TEMP 37; O2SAT 95
[2017-11-16] MEDS: Baclofen 10 MG Tablet 5 MG PO (20:30)
[2017-11-16] MEDS: Atorvastatin Calcium 40 MG Tablet PO (20:30)
--- NOTE | 2017-11-17 03:00 | PCM.PN.HOSP ---
Subjective: Patient is doing well with physical therapy. Wants to go out for a few hours for her daughter's republican Objective: General: Alert, Oriented x3, Cooperative HEENT: Atraumatic, PERRLA, EOMI, Normocephalic Oral: Moist Mucosa Neck: Supple, No JVD, Negative Carotid Bruits Lungs: Clear to auscultation, Normal air movement, No rhonchi, No wheeze, No rales Cardiovascular: Regular rate, Normal S1, Normal S2, No murmurs Abdomen: Bowel Sounds Present, Soft, Non Tender, Non-Distended Extremities: Capillary Refill Less than 3 Seconds, Edema Skin: No rashes, No breakdown Musculoskeletal: No Tenderness to Palpation of Joints or Extremities, Arthritic Changes Neurological: Cranial nerves II-XII grossly intact, - Mild muscle weakness of right upper extremity and lower extremity. Psych/Mental Status: Normal Affect, Appropriate Vitals/I&O's: Vital Signs Temp Pulse Resp BP Pulse Ox 98.1 F 69 20 H 158/74 H 98 11/17/17 08:41 11/17/17 08:41 11/17/17 08:41 11/17/17 08:41 11/17/17 08:41 Oxygen Delivery Method Room Air Weight: 151 lb 7.321 oz Body Mass Index (BMI) 28.1 Finger Stick Blood Glucose 109 Intake and Output for Last 24 Hours 11/15/17 11/16/17 11/17/17 23:59 23:59 23:59 Intake Total 240 / 240 840 / 840 Balance 240 / 240 840 / 840 Current Medications Acetaminophen (Tylenol) 650 mg PO Q6H PRN PRN PRN Reason: Mild Pain (0-3/10)/Headache Last Admin: 11/15/17 02:21 Dose: 650 mg Aspirin (Ecotrin) 81 mg PO DAILY@0800 [facility] Last Admin: 11/17/17 09:46 Dose: 81 mg Atorvastatin Calcium (Lipitor) 40 mg PO QHS [facility] Last Admin: 11/16/17 20:30 Dose: 40 mg Baclofen (Lioresal) 5 mg PO 0600,1999 [facility] Last Admin: 11/17/17 09:46 Dose: 5 mg Bisacodyl (Dulcolax) 10 mg RECTAL .PRN X 1 PRN PRN Reason: Constipation Chlorthalidone (Hygroton) 25 mg PO DAILY [facility] Last Admin: 11/17/17 09:47 Dose: 25 mg Doxepin HCl (Sinequan) 25 mg PO QHS PRN PRN Reason: SLEEP Last Admin: 11/15/17 21:09 Dose: 25 mg Enoxaparin Sodium (Lovenox) 40 mg SC DAILY@0600 [facility] Last Admin: 11/17/17 09:45 Dose: 40 mg Ergocalciferol (Vitamin D) 50,000 unit PO Q7D [facility] Last Admin: 11/16/17 07:37 Dose: 50,000 unit Losartan Potassium (Cozaar) 100 mg PO DAILY [facility] Last Admin: 11/17/17 09:45 Dose: 100 mg Magnesium Hydroxide (Milk Of Magnesia) 30 ml PO .PRN X 1 PRN PRN Reason: Constipation Multivitamins (Multivitamin) 1 tablet PO DAILY@0800 [facility] Last Admin: 11/17/17 09:45 Dose: 1 tablet Pantoprazole Sodium (Protonix) 40 mg PO DAILY PRN PRN Reason: STOMACH DISCOMFORT Paroxetine HCl (Paxil) 20 mg PO DAILY [facility] Last Admin: 11/17/17 09:47 Dose: 20 mg Senna/Docusate Sodium (Senokot-S, Aleah-Colace) 2 tablet PO BID [facility] Last Admin: 11/17/17 08:51 Dose: Not Given Medical Necessity - Tobacco Use Smoking Status: Never smoker Tobacco Use: Non-smoker Assessment/Plan All Active Problems (Last Updated 04/09/17 @ 14:08 by Kendrick Godwin) Stroke (Acute) Hip hematoma, right (Acute) This is a 77-year-old female with history of hypertension, dyslipidemia, fibromyalgia who was discharged from [facility] acute care hospital after treated for right-sided weakness and sensory loss, slurred speech and facial droop consistent with left MCA stroke. Furthermore CT head at that time did not show any hemorrhage and so patient was given rtPA for ischemic stroke. The patient was initially in ICU and then discharged to acute rehab. Assessment and plan 1 Acute left MCA (left posterior putamen) ischemic stroke: MRI brain shows subacute lacunar ischemic infarct in the left posterior putamen. Head CT shows bilateral posterior cerebral arteries small in caliber greater on the right. No focal high-grade stenosis or occlusion. No aneurysm of [place]. Patient had repeat CT head which does not show bleed after 24 hours rtPA did not show bleed. Thereafter, was started on aspirin 81 mg once daily. The patient was advised 30 day event monitor as an outpatient. PT/OT and speech therapy A1c 5.7. Muscle cramps: BMP, magnesium and phosphorus were reviewed. K4.0. Phosphorus 3.2. Magnesium 2.0. All within normal limits. Patient on baclofen. Has Jas wrap bandage. 2. Acute hematoma on the right hip status post TPA: Resolved. 3. Hypertension: Pressure is controlled 133/67. 4. Dyslipidemia: Fasting lipid profile shows total cholesterol 204, LDL 132, triglyceride 149, HDL 42. Patient said she has myalgia on Crestor but patient is tolerating atorvastatin 40 mg daily . DVT prophylaxis: On enoxaparin 40 subcu daily Active Medications Acetaminophen (Tylenol) 650 mg PO Q6H PRN PRN PRN Reason: Mild Pain (0-3/10)/Headache Last Admin: 11/15/17 02:21 Dose: 650 mg Aspirin (Ecotrin) 81 mg PO DAILY@0800 [facility] Last Admin: 11/17/17 09:46 Dose: 81 mg Atorvastatin Calcium (Lipitor) 40 mg PO QHS [facility] Last Admin: 11/16/17 20:30 Dose: 40 mg Baclofen (Lioresal) 5 mg PO 599,1999 [facility] Last Admin: 11/17/17 09:46 Dose: 5 mg Bisacodyl (Dulcolax) 10 mg RECTAL .PRN X 1 PRN PRN Reason: Constipation Chlorthalidone (Hygroton) 25 mg PO DAILY [facility] Last Admin: 11/17/17 09:47 Dose: 25 mg Doxepin HCl (Sinequan) 25 mg PO QHS PRN PRN Reason: SLEEP Last Admin: 11/15/17 21:09 Dose: 25 mg Enoxaparin Sodium (Lovenox) 40 mg SC DAILY@0600 [facility] Last Admin: 11/17/17 09:45 Dose: 40 mg Ergocalciferol (Vitamin D) 50,000 unit PO Q7D [facility] Last Admin: 11/16/17 07:37 Dose: 50,000 unit Losartan Potassium (Cozaar) 100 mg PO DAILY [facility] Last Admin: 11/17/17 09:45 Dose: 100 mg Magnesium Hydroxide (Milk Of Magnesia) 30 ml PO .PRN X 1 PRN PRN Reason: Constipation Multivitamins (Multivitamin) 1 tablet PO DAILY@0800 [facility] Last Admin: 11/17/17 09:45 Dose: 1 tablet Pantoprazole Sodium (Protonix) 40 mg PO DAILY PRN PRN Reason: STOMACH DISCOMFORT Paroxetine HCl (Paxil) 20 mg PO DAILY [facility] Last Admin: 11/17/17 09:47 Dose: 20 mg Senna/Docusate Sodium (Senokot-S, Aleah-Colace) 2 tablet PO BID [facility] Last Admin: 11/17/17 08:51 Dose: Not Given Code Visit Inpatient E&M: 25219 Subs Hosp L2
[2017-11-17 08:41] VITALS: BP 158/74; PULSE 69; RESP 20; TEMP 36.7; O2SAT 98
[2017-11-17] MEDS: Enoxaparin 40 MG/0.4 ML Syringe SC (09:45)
[2017-11-17] MEDS: Losartan Potassium 100 MG Tablet PO (09:45)
[2017-11-17] MEDS: Multivitamins,Therapeutic Tablet 1 TABLET PO (09:45)
[2017-11-17] MEDS: Baclofen 10 MG Tablet 5 MG PO ×2 (09:46→21:22)
[2017-11-17] MEDS: Aspirin E.C. 81 MG Tablet PO (09:46)
[2017-11-17] MEDS: Chlorthalidone 50 MG Tablet 25 MG PO (09:47)
[2017-11-17 10:50] VITALS: BMI 28.1
--- NOTE | 2017-11-17 15:27 | NURSING ---
Pt left for reveal republican, transported pt.
--- NOTE | 2017-11-17 15:40 | PN_ITS ---
Subjective: Patient is doing well with physical therapy. Wants to go out for a few hours for her daughter's constitution party Objective: General: Alert, Oriented x3, Cooperative HEENT: Atraumatic, PERRLA, EOMI, Normocephalic Oral: Moist Mucosa Neck: Supple, No JVD, Negative Carotid Bruits Lungs: Clear to auscultation, Normal air movement, No rhonchi, No wheeze, No rales Cardiovascular: Regular rate, Normal S1, Normal S2, No murmurs Abdomen: Bowel Sounds Present, Soft, Non Tender, Non-Distended Extremities: Capillary Refill Less than 3 Seconds, Edema Skin: No rashes, No breakdown Musculoskeletal: No Tenderness to Palpation of Joints or Extremities, Arthritic Changes Neurological: Cranial nerves II-XII grossly intact, - Mild muscle weakness of right upper extremity and lower extremity. Psych/Mental Status: Normal Affect, Appropriate Vitals/I&O's: Vital Signs Temp Pulse Resp BP Pulse Ox 98.1 F 69 20 H 158/74 H 98 11/17/17 08:41 11/17/17 08:41 11/17/17 08:41 11/17/17 08:41 11/17/17 08:41 Oxygen Delivery Method Room Air Weight: 151 lb 7.321 oz Body Mass Index (BMI) 28.1 Finger Stick Blood Glucose 109 Intake and Output for Last 24 Hours 11/15/17 11/16/17 11/17/17 23:59 23:59 23:59 Intake Total 240 / 240 840 / 840 Balance 240 / 240 840 / 840 Current Medications Acetaminophen (Tylenol) 650 mg PO Q6H PRN PRN PRN Reason: Mild Pain (0-3/10)/Headache Last Admin: 11/15/17 02:21 Dose: 650 mg Aspirin (Ecotrin) 81 mg PO DAILY@0800 [facility] Last Admin: 11/17/17 09:46 Dose: 81 mg Atorvastatin Calcium (Lipitor) 40 mg PO QHS [facility] Last Admin: 11/16/17 20:30 Dose: 40 mg Baclofen (Lioresal) 5 mg PO 0600,1999 [facility] Last Admin: 11/17/17 09:46 Dose: 5 mg Bisacodyl (Dulcolax) 10 mg RECTAL .PRN X 1 PRN PRN Reason: Constipation Chlorthalidone (Hygroton) 25 mg PO DAILY [facility] Last Admin: 11/17/17 09:47 Dose: 25 mg Doxepin HCl (Sinequan) 25 mg PO QHS PRN PRN Reason: SLEEP Last Admin: 11/15/17 21:09 Dose: 25 mg Enoxaparin Sodium (Lovenox) 40 mg SC DAILY@0600 [facility] Last Admin: 11/17/17 09:45 Dose: 40 mg Ergocalciferol (Vitamin D) 50,000 unit PO Q7D [facility] Last Admin: 11/16/17 07:37 Dose: 50,000 unit Losartan Potassium (Cozaar) 100 mg PO DAILY [facility] Last Admin: 11/17/17 09:45 Dose: 100 mg Magnesium Hydroxide (Milk Of Magnesia) 30 ml PO .PRN X 1 PRN PRN Reason: Constipation Multivitamins (Multivitamin) 1 tablet PO DAILY@0800 [facility] Last Admin: 11/17/17 09:45 Dose: 1 tablet Pantoprazole Sodium (Protonix) 40 mg PO DAILY PRN PRN Reason: STOMACH DISCOMFORT Paroxetine HCl (Paxil) 20 mg PO DAILY [facility] Last Admin: 11/17/17 09:47 Dose: 20 mg Senna/Docusate Sodium (Senokot-S, Aleah-Colace) 2 tablet PO BID [facility] Last Admin: 11/17/17 08:51 Dose: Not Given Medical Necessity - Tobacco Use Smoking Status: Never smoker Tobacco Use: Non-smoker Assessment/Plan All Active Problems (Last Updated 04/09/17 @ 14:08 by Kendrick Godwin) Stroke (Acute) Hip hematoma, right (Acute) This is a 77-year-old female with history of hypertension, dyslipidemia, fibromyalgia who was discharged from [facility] acute care [facility] after treated for right-sided weakness and sensory loss, slurred speech and facial droop consistent with left MCA stroke. Furthermore CT head at that time did not show any hemorrhage and so patient was given rtPA for ischemic stroke. The patient was initially in ICU and then discharged to acute rehab. Assessment and plan 1 Acute left MCA (left posterior putamen) ischemic stroke: MRI brain shows subacute lacunar ischemic infarct in the left posterior putamen. Head CT shows bilateral posterior cerebral arteries small in caliber greater on the right. No focal high-grade stenosis or occlusion. No aneurysm of [place]. Patient had repeat CT head which does not show bleed after 24 hours rtPA did not show bleed. Thereafter, was started on aspirin 81 mg once daily. The patient was advised 30 day event monitor as an outpatient. PT/OT and speech therapy A1c 5.7. Muscle cramps: BMP, magnesium and phosphorus were reviewed. K4.0. Phosphorus 3.2. Magnesium 2.0. All within normal limits. Patient on baclofen. Has Jas wrap bandage. 2. Acute hematoma on the right hip status post TPA: Resolved. 3. Hypertension: Pressure is controlled 133/67. 4. Dyslipidemia: Fasting lipid profile shows total cholesterol 204, LDL 132, triglyceride 149, HDL 42. Patient said she has myalgia on Crestor but patient is tolerating atorvastatin 40 mg daily . DVT prophylaxis: On enoxaparin 40 subcu daily Active Medications Acetaminophen (Tylenol) 650 mg PO Q6H PRN PRN PRN Reason: Mild Pain (0-3/10)/Headache Last Admin: 11/15/17 02:21 Dose: 650 mg Aspirin (Ecotrin) 81 mg PO DAILY@0800 [facility] Last Admin: 11/17/17 09:46 Dose: 81 mg Atorvastatin Calcium (Lipitor) 40 mg PO QHS [facility] Last Admin: 11/16/17 20:30 Dose: 40 mg Baclofen (Lioresal) 5 mg PO 599,1999 [facility] Last Admin: 11/17/17 09:46 Dose: 5 mg Bisacodyl (Dulcolax) 10 mg RECTAL .PRN X 1 PRN PRN Reason: Constipation Chlorthalidone (Hygroton) 25 mg PO DAILY [facility] Last Admin: 11/17/17 09:47 Dose: 25 mg Doxepin HCl (Sinequan) 25 mg PO QHS PRN PRN Reason: SLEEP Last Admin: 11/15/17 21:09 Dose: 25 mg Enoxaparin Sodium (Lovenox) 40 mg SC DAILY@0600 [facility] Last Admin: 11/17/17 09:45 Dose: 40 mg Ergocalciferol (Vitamin D) 50,000 unit PO Q7D [facility] Last Admin: 11/16/17 07:37 Dose: 50,000 unit Losartan Potassium (Cozaar) 100 mg PO DAILY [facility] Last Admin: 11/17/17 09:45 Dose: 100 mg Magnesium Hydroxide (Milk Of Magnesia) 30 ml PO .PRN X 1 PRN PRN Reason: Constipation Multivitamins (Multivitamin) 1 tablet PO DAILY@0800 [facility] Last Admin: 11/17/17 09:45 Dose: 1 tablet Pantoprazole Sodium (Protonix) 40 mg PO DAILY PRN PRN Reason: STOMACH DISCOMFORT Paroxetine HCl (Paxil) 20 mg PO DAILY [facility] Last Admin: 11/17/17 09:47 Dose: 20 mg Senna/Docusate Sodium (Senokot-S, Aleah-Colace) 2 tablet PO BID [facility] Last Admin: 11/17/17 08:51 Dose: Not Given Code Visit Inpatient E&M: 24279 Subs Hosp L2
[2017-11-17 18:35] VITALS: BP 122/67; PULSE 86; RESP 18; TEMP 36.4; O2SAT 94
--- NOTE | 2017-11-17 18:35 | NURSING ---
pt back from [facility], in stable condition.
[2017-11-17] MEDS: Atorvastatin Calcium 40 MG Tablet PO (21:24)
[2017-11-17] MEDS: Doxepin Hcl 25 MG Capsule PO (21:24)
[2017-11-18] MEDS: Enoxaparin 40 MG/0.4 ML Syringe SC (06:33)
[2017-11-18] MEDS: Baclofen 10 MG Tablet 5 MG PO ×2 (06:33→19:54)
[2017-11-18 09:11] VITALS: BP 128/59; PULSE 68; RESP 16; TEMP 36.6; O2SAT 99
[2017-11-18] MEDS: Aspirin E.C. 81 MG Tablet PO (09:18)
[2017-11-18] MEDS: Losartan Potassium 100 MG Tablet PO (09:19)
[2017-11-18] MEDS: Multivitamins,Therapeutic Tablet 1 TABLET PO (09:19)
[2017-11-18] MEDS: Chlorthalidone 50 MG Tablet 25 MG PO (09:19)
[2017-11-18 09:42] VITALS: BMI 28.1
--- NOTE | 2017-11-18 17:26 | NURSING ---
staff ambulated pt down hallway from room to multipurpose room back to room, used wheelchair follow, pt tolerated well.
[2017-11-18] MEDS: Atorvastatin Calcium 40 MG Tablet PO (19:54)
[2017-11-18] MEDS: Doxepin Hcl 25 MG Capsule PO (21:00)
[2017-11-18 21:04] VITALS: BP 121/58; PULSE 74; RESP 18; TEMP 36.8; O2SAT 95
[2017-11-18 21:09] VITALS: BMI 28.1
--- NOTE | 2017-11-19 05:21 | NURSING ---
Reviewed and agree with LPNs fims and handoff
[2017-11-19] MEDS: Enoxaparin 40 MG/0.4 ML Syringe SC (07:12)
[2017-11-19 07:40] VITALS: BP 130/67; PULSE 77; RESP 18; TEMP 36.8; O2SAT 93
[2017-11-19] MEDS: Chlorthalidone 50 MG Tablet 25 MG PO (07:51)
[2017-11-19] MEDS: Aspirin E.C. 81 MG Tablet PO (07:52)
[2017-11-19] MEDS: Losartan Potassium 100 MG Tablet PO (07:52)
[2017-11-19] MEDS: Multivitamins,Therapeutic Tablet 1 TABLET PO (07:52)
--- NOTE | 2017-11-19 08:57 | PCM.PN.NEU ---
Subjective: Patient seen and examined. No new complaints. Tolerating therapy, denies any blurry vision, or double vision. Tolerating regular diet, no issues with GI/. Muscle spasms well controlled on Baclofen. - Physical Exam General: Alert, Oriented x3, Cooperative HEENT: Atraumatic, PERRLA, EOMI, Normocephalic Neck: Supple, No JVD, Negative Carotid Bruits Lungs: Clear to auscultation, Normal air movement Cardiovascular: Regular rate, No murmurs Abdomen: Bowel Sounds Present, Soft, Non Tender Extremities: No edema, Capillary Refill Less than 3 Seconds Skin: No rashes, No breakdown Musculoskeletal: No Tenderness to Palpation of Joints or Extremities Neurological: Cranial nerves II-XII grossly intact Psych/Mental Status: Normal Affect, Appropriate, Alert and oriented to time, place, person, mood and affect Vital Signs Temp Pulse Resp BP Pulse Ox 98.3 F 77 18 130/67 H 93 11/19/17 07:40 11/19/17 07:40 11/19/17 07:40 11/19/17 07:40 11/19/17 07:40 Oxygen Delivery Method Room Air Weight: 68.7 kg Body Mass Index (BMI) 28.1 Finger Stick Blood Glucose 109 Intake and Output for Last 24 Hours 11/17/17 11/18/17 11/19/17 23:59 23:59 23:59 Intake Total 240 / 240 360 / 360 Balance 240 / 240 360 / 360 Active Medications Acetaminophen (Tylenol) 650 mg PO Q6H PRN PRN PRN Reason: Mild Pain (0-3/10)/Headache Last Admin: 11/15/17 02:21 Dose: 650 mg Aspirin (Ecotrin) 81 mg PO DAILY@0800 [facility] Last Admin: 11/19/17 07:52 Dose: 81 mg Atorvastatin Calcium (Lipitor) 40 mg PO QHS [facility] Last Admin: 11/18/17 19:54 Dose: 40 mg Baclofen (Lioresal) 5 mg PO 599,1999 [facility] Last Admin: 11/19/17 06:54 Dose: Not Given Bisacodyl (Dulcolax) 10 mg RECTAL .PRN X 1 PRN PRN Reason: Constipation Chlorthalidone (Hygroton) 25 mg PO DAILY [facility] Last Admin: 11/19/17 07:51 Dose: 25 mg Doxepin HCl (Sinequan) 25 mg PO QHS PRN PRN Reason: SLEEP Last Admin: 11/18/17 21:00 Dose: 25 mg Enoxaparin Sodium (Lovenox) 40 mg SC DAILY@0600 [facility] Last Admin: 11/19/17 07:12 Dose: 40 mg Ergocalciferol (Vitamin D) 50,000 unit PO Q7D [facility] Last Admin: 11/16/17 07:37 Dose: 50,000 unit Losartan Potassium (Cozaar) 100 mg PO DAILY [facility] Last Admin: 11/19/17 07:52 Dose: 100 mg Magnesium Hydroxide (Milk Of Magnesia) 30 ml PO .PRN X 1 PRN PRN Reason: Constipation Multivitamins (Multivitamin) 1 tablet PO DAILY@0800 [facility] Last Admin: 11/19/17 07:52 Dose: 1 tablet Pantoprazole Sodium (Protonix) 40 mg PO DAILY PRN PRN Reason: STOMACH DISCOMFORT Paroxetine HCl (Paxil) 20 mg PO DAILY [facility] Last Admin: 11/19/17 07:51 Dose: 20 mg Senna/Docusate Sodium (Senokot-S, Aleah-Colace) 2 tablet PO BID [facility] Last Admin: 11/19/17 07:51 Dose: Not Given Medical Necessity - Tobacco Use Smoking Status: Never smoker Tobacco Use: Non-smoker Assessment/Plan All Active Problems (Last Updated 04/09/17 @ 14:08 by Kendrick Godwin) Stroke (Acute) Hip hematoma, right (Acute) Debility s/p small to moderate left MCA infarct. Complicated by HTN, HLD. goal of rehab is [facility]ian of functional independence. Plan: - Physical therapy for gait and balance - Occupational Therapy for ADLs - Speech therapy - As needed analgesics - Bowel protocol - Stroke prevention on ASA, Statin and Lovenox - DVT prophylaxis: SCDs, ASA, Lovenox - MRI brain -> showed small to moderate acute left MCA stroke (left posterior putamen) - MRA head/neck => showed normal carotids - [address] head- was negative for hemorrhage - Acute right hip hematoma- improved - Hx HTN continue home medications, Goal BP < 130/80 mmHg and goal Hba1c <7% - Avoid hypotension - Hx of HLD continue home statin - Hx of depression currently not on any medications, was on a low dose of Paxil as needed => restart Paxil at 20mg daily - Hx of Fibromyalgia currently not on any medications - 30 day event recorder as outpatient. - Fall precautions - Muscle spasms=> Improved with Baclofen 5mg nightly increase to BID titrate up to 10mg BID => decrease to 5mg BID now that she is taking her sleeping pill at night. D/C the morning dose of Baclofen - Insomnia => continue patient home sleeping pill - Doxepin 25 mg at bedtime
[2017-11-19 10:52] VITALS: BMI 28.1
--- NOTE | 2017-11-19 14:55 | PCM.PN.HOSP ---
Subjective: Patient is a 77-year-old lady admitted to the inpatient rehab unit with significant debility secondary to acute left MCA stroke for which she did receive TPA Objective: GENERAL: cooperative and in no apparent distress. HEENT: Atraumatic; moist oral mucosa EYES; Anicteric, Normal Conjunctiva NECK; supple, normal thyroid, no distended JVD. RESPIRATORY: Diminished to auscultation bilaterally, CARDIOVASCULAR: Regular S1 S2, no audible murmurs GI: soft, non-tender, normoactive bowel sounds, : No Renal angle tenderness; No garcia EXTREMITIES: No edema, no clubbing, no cyanosis. MUSCULOSKELTAL: No Joint Tenderness; no muscle waisting NEURO: Awake; right-sided hemiparesis SKIN: No Rash PSYCH; Normal affect Vitals/I&O's: Vital Signs Temp Pulse Resp BP Pulse Ox 98.3 F 77 18 130/67 H 93 11/19/17 07:40 11/19/17 07:40 11/19/17 07:40 11/19/17 07:40 11/19/17 07:40 Oxygen Delivery Method Room Air Weight: 68.7 kg Body Mass Index (BMI) 28.1 Finger Stick Blood Glucose 109 Intake and Output for Last 24 Hours 11/17/17 11/18/17 11/19/17 23:59 23:59 23:59 Intake Total 240 / 240 720 / 720 Balance 240 / 240 720 / 720 Current Medications Acetaminophen (Tylenol) 650 mg PO Q6H PRN PRN PRN Reason: Mild Pain (0-3/10)/Headache Last Admin: 11/15/17 02:21 Dose: 650 mg Aspirin (Ecotrin) 81 mg PO DAILY@0800 [facility] Last Admin: 11/19/17 07:52 Dose: 81 mg Atorvastatin Calcium (Lipitor) [address] [facility] Last Admin: 11/18/17 19:54 Dose: 40 mg Baclofen (Lioresal) [address] [facility] Bisacodyl (Dulcolax) 10 mg RECTAL .PRN X 1 PRN PRN Reason: Constipation Chlorthalidone (Hygroton) [address] [facility] Last Admin: 11/19/17 07:51 Dose: 25 mg Doxepin HCl (Sinequan) 25 mg PO QHS PRN PRN Reason: SLEEP Last Admin: 11/18/17 21:00 Dose: 25 mg Enoxaparin Sodium (Lovenox) 40 mg SC DAILY@0600 [facility] Last Admin: 11/19/17 07:12 Dose: 40 mg Ergocalciferol (Vitamin D) 50,[address] [facility] Last Admin: 11/16/17 07:37 Dose: 50,000 unit Losartan Potassium (Cozaar) [address] [facility] Last Admin: 11/19/17 07:52 Dose: 100 mg Magnesium Hydroxide (Milk Of Magnesia) 30 ml PO .PRN X 1 PRN PRN Reason: Constipation Multivitamins (Multivitamin) 1 tablet PO DAILY@0800 [facility] Last Admin: 11/19/17 07:52 Dose: 1 tablet Pantoprazole Sodium (Protonix) 40 mg PO DAILY PRN PRN Reason: STOMACH DISCOMFORT Paroxetine HCl (Paxil) [address] [facility] Last Admin: 11/19/17 07:51 Dose: 20 mg Senna/Docusate Sodium (Senokot-S, Aleah-Colace) [address] [facility] Last Admin: 11/19/17 07:51 Dose: Not Given Medical Necessity - Tobacco Use Smoking Status: Never smoker Tobacco Use: Non-smoker Assessment/Plan All Active Problems (Last Updated 04/09/17 @ 14:08 by Kendrick Godwin) Stroke (Acute) Hip hematoma, right (Acute) Patient is a 77-year-old lady admitted to the inpatient rehab unit with significant debility secondary to acute left MCA stroke for which she did receive TPA 1. Physical debility secondary to acute left MCA stroke. Patient did receive TPA currently admitted to inpatient rehab unit where she is undergoing therapy. Patient is on antiplatelet therapy with aspirin in addition to statins 2. Dyslipidemia-patient is on statin therapy, continued at home dose 3. Hypertension-blood pressure controlled, home medications continued with dose adjustment as needed 4. DVT prophylaxis SC Lovenox Code Visit Inpatient E&M: 87581 Subs Hosp L2
--- NOTE | 2017-11-19 14:58 | PN_ITS ---
Subjective: Patient is a 77-year-old lady admitted to the inpatient rehab unit with significant debility secondary to acute left MCA stroke for which she did r eceive TPA Objective: GENERAL: cooperative and in no apparent distress. HEENT: Atraumatic; moist oral mucosa EYES; Anicteric, Normal Conjunctiva NECK; supple, normal thyroid, no distended JVD. RESPIRATORY: Diminished to auscultation bilaterally, CARDIOVASCULAR: Regular S1 S2, no audible murmurs GI: soft, non-tender, normoactive bowel sounds, : No Renal angle tenderness; No garcia EXTREMITIES: No edema, no clubbing, no cyanosis. MUSCULOSKELTAL: No Joint Tenderness; no muscle waisting NEURO: Awake; right-sided hemiparesis SKIN: No Rash PSYCH; Normal affect Vitals/I&O's: Vital Signs Temp Pulse Resp BP Pulse Ox 98.3 F 77 18 130/67 H 93 11/19/17 07:40 11/19/17 07:40 11/19/17 07:40 11/19/17 07:40 11/19/17 07:40 Oxygen Delivery Method Room Air Weight: 68.7 kg Body Mass Index (BMI) 28.1 Finger Stick Blood Glucose 109 Intake and Output for Last 24 Hours 11/17/17 11/18/17 11/19/17 23:59 23:59 23:59 Intake Total 240 / 240 720 / 720 Balance 240 / 240 720 / 720 Current Medications Acetaminophen (Tylenol) 650 mg PO Q6H PRN PRN PRN Reason: Mild Pain (0-3/10)/Headache Last Admin: 11/15/17 02:21 Dose: 650 mg Aspirin (Ecotrin) 81 mg PO DAILY@0800 [facility] Last Admin: 11/19/17 07:52 Dose: 81 mg Atorvastatin Calcium (Lipitor) 40 mg PO QHS [facility] Last Admin: 11/18/17 19:54 Dose: 40 mg Baclofen (Lioresal) 5 mg PO 1999 [facility] Bisacodyl (Dulcolax) 10 mg RECTAL .PRN X 1 PRN PRN Reason: Constipation Chlorthalidone (Hygroton) 25 mg PO DAILY [facility] Last Admin: 11/19/17 07:51 Dose: 25 mg Doxepin HCl (Sinequan) 25 mg PO QHS PRN PRN Reason: SLEEP Last Admin: 11/18/17 21:00 Dose: 25 mg Enoxaparin Sodium (Lovenox) 40 mg SC DAILY@0600 [facility] Last Admin: 11/19/17 07:12 Dose: 40 mg Ergocalciferol (Vitamin D) 50,000 unit PO Q7D [facility] Last Admin: 11/16/17 07:37 Dose: 50,000 unit Losartan Potassium (Cozaar) 100 mg PO DAILY [facility] Last Admin: 11/19/17 07:52 Dose: 100 mg Magnesium Hydroxide (Milk Of Magnesia) 30 ml PO .PRN X 1 PRN PRN Reason: Constipation Multivitamins (Multivitamin) 1 tablet PO DAILY@0800 [facility] Last Admin: 11/19/17 07:52 Dose: 1 tablet Pantoprazole Sodium (Protonix) 40 mg PO DAILY PRN PRN Reason: STOMACH DISCOMFORT Paroxetine HCl (Paxil) 20 mg PO DAILY [facility] Last Admin: 11/19/17 07:51 Dose: 20 mg Senna/Docusate Sodium (Senokot-S, Aleah-Colace) 2 tablet PO BID [facility] Last Admin: 11/19/17 07:51 Dose: Not Given Medical Necessity - Tobacco Use Smoking Status: Never smoker Tobacco Use: Non-smoker Assessment/Plan All Active Problems (Last Updated 04/09/17 @ 14:08 by Kendrick Godwin) Stroke (Acute) Hip hematoma, right (Acute) Patient is a 77-year-old lady admitted to the inpatient rehab unit with significant debility secondary to acute left MCA stroke for which she did receive TPA 1. Physical debility secondary to acute left MCA stroke. Patient did receive TPA currently admitted to inpatient rehab unit where she is undergoing therapy. Patient is on antiplatelet therapy with aspirin in addition to statins 2. Dyslipidemia-patient is on statin therapy, continued at home dose 3. Hypertension-blood pressure controlled, home medications continued with dose adjustment as needed 4. DVT prophylaxis SC Lovenox Code Visit Inpatient E&M: 16477 Subs Hosp L2
[2017-11-19 19:51] VITALS: BP 112/71; PULSE 83; RESP 16; TEMP 36.5; O2SAT 94
[2017-11-19] MEDS: Atorvastatin Calcium 40 MG Tablet PO (21:05)
[2017-11-19] MEDS: Doxepin Hcl 25 MG Capsule PO (21:05)
[2017-11-19] MEDS: Baclofen 10 MG Tablet 5 MG PO (21:05)
[2017-11-19 21:45] VITALS: BMI 28.1
--- NOTE | 2017-11-20 01:43 | NURSING ---
Reviewed and agree with [facility] [employer] documentation and FIMs charting.
[2017-11-20] MEDS: Enoxaparin 40 MG/0.4 ML Syringe SC (06:05)
[2017-11-20 06:59] VITALS: BP 113/60; PULSE 67; RESP 18; TEMP 36.6; O2SAT 95
[2017-11-20] MEDS: Losartan Potassium 100 MG Tablet PO (08:06)
[2017-11-20] MEDS: Chlorthalidone 50 MG Tablet 25 MG PO (08:06)
[2017-11-20] MEDS: Aspirin E.C. 81 MG Tablet PO (08:07)
[2017-11-20] MEDS: Multivitamins,Therapeutic Tablet 1 TABLET PO (08:07)
--- NOTE | 2017-11-20 10:37 | PCM.PN.NEU ---
Subjective: Patient seen during therapy session. Tolerating therapy with out difficulty. She did have some dizziness this morning, but since has resolved, and she is doing better now. Denies any blurry vision, or double vision, no headaches now or during dizzy episode. VS are stable blood pressure was 113/60, HR 77, RR 18 SpO2 95% on room air. - Physical Exam General: Alert, Oriented x3, Cooperative HEENT: Atraumatic, PERRLA, EOMI, Normocephalic Neck: Supple, No JVD, Negative Carotid Bruits Lungs: Clear to auscultation, Normal air movement Cardiovascular: Regular rate, No murmurs Abdomen: Bowel Sounds Present, Soft, Non Tender Extremities: No edema, Capillary Refill Less than 3 Seconds Skin: No rashes, No breakdown Musculoskeletal: No Tenderness to Palpation of Joints or Extremities Neurological: Cranial nerves II-XII grossly intact Psych/Mental Status: Normal Affect, Appropriate, Alert and oriented to time, place, person, mood and affect Vital Signs Temp Pulse Resp BP Pulse Ox 97.9 F 67 18 113/60 95 11/20/17 06:59 11/20/17 06:59 11/20/17 06:59 11/20/17 06:59 11/20/17 06:59 Oxygen Delivery Method Room Air Weight: 68.7 kg Body Mass Index (BMI) 28.1 Finger Stick Blood Glucose 109 Intake and Output for Last 24 Hours 11/18/17 11/19/17 11/20/17 23:59 23:59 23:59 Intake Total 240 / 240 720 / 720 240 / 240 Balance 240 / 240 720 / 720 240 / 240 Active Medications Acetaminophen (Tylenol) 650 mg PO Q6H PRN PRN PRN Reason: Mild Pain (0-3/10)/Headache Last Admin: 11/15/17 02:21 Dose: 650 mg Aspirin (Ecotrin) 81 mg PO DAILY@0800 [facility] Last Admin: 11/20/17 08:07 Dose: 81 mg Atorvastatin Calcium (Lipitor) 40 mg PO QHS [facility] Last Admin: 11/19/17 21:05 Dose: 40 mg Baclofen (Lioresal) 5 mg PO 2000 [facility] Last Admin: 11/19/17 21:05 Dose: 5 mg Bisacodyl (Dulcolax) 10 mg RECTAL .PRN X 1 PRN PRN Reason: Constipation Chlorthalidone (Hygroton) 25 mg PO DAILY [facility] Last Admin: 11/20/17 08:06 Dose: 25 mg Doxepin HCl (Sinequan) 25 mg PO QHS PRN PRN Reason: SLEEP Last Admin: 11/19/17 21:05 Dose: 25 mg Enoxaparin Sodium (Lovenox) 40 mg SC DAILY@0600 [facility] Last Admin: 11/20/17 06:05 Dose: 40 mg Ergocalciferol (Vitamin D) 50,000 unit PO Q7D [facility] Last Admin: 11/16/17 07:37 Dose: 50,000 unit Losartan Potassium (Cozaar) 100 mg PO DAILY [facility] Last Admin: 11/20/17 08:06 Dose: 100 mg Magnesium Hydroxide (Milk Of Magnesia) 30 ml PO .PRN X 1 PRN PRN Reason: Constipation Multivitamins (Multivitamin) 1 tablet PO DAILY@0800 [facility] Last Admin: 11/20/17 08:07 Dose: 1 tablet Pantoprazole Sodium (Protonix) 40 mg PO DAILY PRN PRN Reason: STOMACH DISCOMFORT Paroxetine HCl (Paxil) 20 mg PO DAILY [facility] Last Admin: 11/20/17 08:06 Dose: 20 mg Senna/Docusate Sodium (Senokot-S, Aleah-Colace) 2 tablet PO BID [facility] Last Admin: 11/20/17 08:07 Dose: Not Given Medical Necessity - Tobacco Use Smoking Status: Never smoker Tobacco Use: Non-smoker Assessment/Plan All Active Problems (Last Updated 04/09/17 @ 14:08 by Kendrick Godwin) Stroke (Acute) Hip hematoma, right (Acute) Debility s/p small to moderate left MCA infarct. Complicated by HTN, HLD. goal of rehab is denominational of functional independence. Plan: - Physical therapy for gait and balance - Occupational Therapy for ADLs - Speech therapy - As needed analgesics - Bowel protocol - Stroke prevention on ASA, Statin and Lovenox - DVT prophylaxis: SCDs, ASA, Lovenox - MRI brain -> showed small to moderate acute left MCA stroke (left posterior putamen) - MRA head/neck => showed normal carotids - [address] head- was negative for hemorrhage - Acute right hip hematoma- improved - Hx HTN continue home medications, Goal BP < 130/80 mmHg and goal Hba1c <7% - Avoid hypotension - Hx of HLD continue home statin - Hx of depression currently not on any medications, was on a low dose of Paxil as needed => restart Paxil at 20mg daily - Hx of Fibromyalgia currently not on any medications - 30 day event recorder as outpatient. - Fall precautions - Muscle spasms=> Improved with Baclofen 5mg nightly increase to BID titrate up to 10mg BID => decrease to 5mg BID now that she is taking her sleeping pill at night. D/C the morning dose of Baclofen - Insomnia => continue patient home sleeping pill - Doxepin 25 mg at bedtime
[2017-11-20 13:21] VITALS: BMI 28.1
[2017-11-20 19:25] VITALS: BP 109/58; PULSE 77; RESP 16; TEMP 36.5; O2SAT 95
[2017-11-20] MEDS: Atorvastatin Calcium 40 MG Tablet PO (21:01)
[2017-11-20] MEDS: Baclofen 10 MG Tablet 5 MG PO (21:01)
[2017-11-21 05:00] VITALS: BMI 28.1
[2017-11-21 07:46] VITALS: BP 127/70; PULSE 70; RESP 18; TEMP 36.8; O2SAT 94
[2017-11-21] MEDS: Chlorthalidone 50 MG Tablet 25 MG PO (07:48)
[2017-11-21] MEDS: Aspirin E.C. 81 MG Tablet PO (07:48)
[2017-11-21] MEDS: Enoxaparin 40 MG/0.4 ML Syringe SC (07:48)
[2017-11-21] MEDS: Losartan Potassium 100 MG Tablet PO (07:48)
[2017-11-21] MEDS: Multivitamins,Therapeutic Tablet 1 TABLET PO (07:48)
--- NOTE | 2017-11-21 10:12 | PCM.PN.NEU ---
Subjective: Patient sitting quietly in bedside recliner. No acute events over night. Tolerating therapy. Denies any blurry vision, double vision, or headaches. Muscle spasms controlled on Baclofen. No issues with GI/Gu. - Physical Exam General: Alert, Oriented x3, Cooperative HEENT: Atraumatic, PERRLA, EOMI, Normocephalic Neck: Supple, No JVD, Negative Carotid Bruits Lungs: Clear to auscultation, Normal air movement Cardiovascular: Regular rate, No murmurs Abdomen: Bowel Sounds Present, Soft, Non Tender Extremities: No edema, Capillary Refill Less than 3 Seconds Skin: No rashes, No breakdown Musculoskeletal: No Tenderness to Palpation of Joints or Extremities Neurological: Cranial nerves II-XII grossly intact Psych/Mental Status: Normal Affect, Appropriate, Alert and oriented to time, place, person, mood and affect Vital Signs Temp Pulse Resp BP Pulse Ox 98.3 F 70 18 127/70 H 94 11/21/17 07:46 11/21/17 07:46 11/21/17 07:46 11/21/17 07:46 11/21/17 07:46 Oxygen Delivery Method Room Air Weight: 68.7 kg Body Mass Index (BMI) 28.1 Finger Stick Blood Glucose 109 Intake and Output for Last 24 Hours 11/19/17 11/20/17 11/21/17 23:59 23:59 23:59 Intake Total 720 / 720 680 / 680 Balance 720 / 720 680 / 680 Active Medications Acetaminophen (Tylenol) 650 mg PO Q6H PRN PRN PRN Reason: Mild Pain (0-3/10)/Headache Last Admin: 11/15/17 02:21 Dose: 650 mg Aspirin (Ecotrin) 81 mg PO DAILY@0800 [facility] Last Admin: 11/21/17 07:48 Dose: 81 mg Atorvastatin Calcium (Lipitor) 40 mg PO QHS [facility] Last Admin: 11/20/17 21:01 Dose: 40 mg Baclofen (Lioresal) 5 mg PO 1999 [facility] Last Admin: 11/20/17 21:01 Dose: 5 mg Bisacodyl (Dulcolax) 10 mg RECTAL .PRN X 1 PRN PRN Reason: Constipation Chlorthalidone (Hygroton) 25 mg PO DAILY [facility] Last Admin: 11/21/17 07:48 Dose: 25 mg Doxepin HCl (Sinequan) 25 mg PO QHS PRN PRN Reason: SLEEP Last Admin: 11/19/17 21:05 Dose: 25 mg Enoxaparin Sodium (Lovenox) 40 mg SC DAILY@0600 [facility] Last Admin: 11/21/17 07:48 Dose: 40 mg Ergocalciferol (Vitamin D) 50,000 unit PO Q7D [facility] Last Admin: 11/16/17 07:37 Dose: 50,000 unit Losartan Potassium (Cozaar) 100 mg PO DAILY [facility] Last Admin: 11/21/17 07:48 Dose: 100 mg Magnesium Hydroxide (Milk Of Magnesia) 30 ml PO .PRN X 1 PRN PRN Reason: Constipation Multivitamins (Multivitamin) 1 tablet PO DAILY@0800 [facility] Last Admin: 11/21/17 07:48 Dose: 1 tablet Pantoprazole Sodium (Protonix) 40 mg PO DAILY PRN PRN Reason: STOMACH DISCOMFORT Paroxetine HCl (Paxil) 20 mg PO DAILY [facility] Last Admin: 11/21/17 07:48 Dose: 20 mg Senna/Docusate Sodium (Senokot-S, Aleah-Colace) 2 tablet PO BID [facility] Last Admin: 11/21/17 07:49 Dose: Not Given Medical Necessity - Tobacco Use Smoking Status: Never smoker Tobacco Use: Non-smoker Assessment/Plan All Active Problems (Last Updated 04/09/17 @ 14:08 by Kendrick Godwin) Stroke (Acute) Hip hematoma, right (Acute) Debility s/p small to moderate left MCA infarct. Complicated by HTN, HLD. goal of rehab is spiritism of functional independence. Plan: - Physical therapy for gait and balance - Occupational Therapy for ADLs - Speech therapy - As needed analgesics - Bowel protocol - Stroke prevention on ASA, Statin and Lovenox - DVT prophylaxis: SCDs, ASA, Lovenox - MRI brain -> showed small to moderate acute left MCA stroke (left posterior putamen) - MRA head/neck => showed normal carotids - [address] head- was negative for hemorrhage - Acute right hip hematoma- improved - Hx HTN continue home medications, Goal BP < 130/80 mmHg and goal Hba1c <7% - Avoid hypotension - Hx of HLD continue home statin - Hx of depression currently not on any medications, was on a low dose of Paxil as needed => restart Paxil at 20mg daily - Hx of Fibromyalgia currently not on any medications - 30 day event recorder as outpatient. - Fall precautions - Muscle spasms=> Improved with Baclofen 5mg nightly increase to BID titrate up to 10mg BID => decrease to 5mg BID now that she is taking her sleeping pill at night. D/C the morning dose of Baclofen - Insomnia => continue patient home sleeping pill - Doxepin 25 mg at bedtime
--- NOTE | 2017-11-21 10:15 | PN.NEURO_ITS ---
Subjective: Patient sitting quietly in bedside recliner. No acute events over night. Tolerating therapy. Denies any blurry vision, double vision, or headaches. Muscle spasms controlled on Baclofen. No issues with GI/Gu. - Physical Exam General: Alert, Oriented x3, Cooperative HEENT: Atraumatic, PERRLA, EOMI, Normocephalic Neck: Supple, No JVD, Negative Carotid Bruits Lungs: Clear to auscultation, Normal air movement Cardiovascular: Regular rate, No murmurs Abdomen: Bowel Sounds Present, Soft, Non Tender Extremities: No edema, Capillary Refill Less than 3 Seconds Skin: No rashes, No breakdown Musculoskeletal: No Tenderness to Palpation of Joints or Extremities Neurological: Cranial nerves II-XII grossly intact Psych/Mental Status: Normal Affect, Appropriate, Alert and oriented to time, place, person, mood and affect Vital Signs Temp Pulse Resp BP Pulse Ox 98.3 F 70 18 127/70 H 94 11/21/17 07:46 11/21/17 07:46 11/21/17 07:46 11/21/17 07:46 11/21/17 07:46 Oxygen Delivery Method Room Air Weight: 68.7 kg Body Mass Index (BMI) 28.1 Finger Stick Blood Glucose 109 Intake and Output for Last 24 Hours 11/19/17 11/20/17 11/21/17 23:59 23:59 23:59 Intake Total 720 / 720 680 / 680 Balance 720 / 720 680 / 680 Active Medications Acetaminophen (Tylenol) 650 mg PO Q6H PRN PRN PRN Reason: Mild Pain (0-3/10)/Headache Last Admin: 11/15/17 02:21 Dose: 650 mg Aspirin (Ecotrin) 81 mg PO DAILY@0800 [facility] Last Admin: 11/21/17 07:48 Dose: 81 mg Atorvastatin Calcium (Lipitor) 40 mg PO QHS [facility] Last Admin: 11/20/17 21:01 Dose: 40 mg Baclofen (Lioresal) 5 mg PO 1999 [facility] Last Admin: 11/20/17 21:01 Dose: 5 mg Bisacodyl (Dulcolax) 10 mg RECTAL .PRN X 1 PRN PRN Reason: Constipation Chlorthalidone (Hygroton) 25 mg PO DAILY [facility] Last Admin: 11/21/17 07:48 Dose: 25 mg Doxepin HCl (Sinequan) 25 mg PO QHS PRN PRN Reason: SLEEP Last Admin: 11/19/17 21:05 Dose: 25 mg Enoxaparin Sodium (Lovenox) 40 mg SC DAILY@0600 [facility] Last Admin: 11/21/17 07:48 Dose: 40 mg Ergocalciferol (Vitamin D) 50,000 unit PO Q7D [facility] Last Admin: 11/16/17 07:37 Dose: 50,000 unit Losartan Potassium (Cozaar) 100 mg PO DAILY [facility] Last Admin: 11/21/17 07:48 Dose: 100 mg Magnesium Hydroxide (Milk Of Magnesia) 30 ml PO .PRN X 1 PRN PRN Reason: Constipation Multivitamins (Multivitamin) 1 tablet PO DAILY@0800 [facility] Last Admin: 11/21/17 07:48 Dose: 1 tablet Pantoprazole Sodium (Protonix) 40 mg PO DAILY PRN PRN Reason: STOMACH DISCOMFORT Paroxetine HCl (Paxil) 20 mg PO DAILY [facility] Last Admin: 11/21/17 07:48 Dose: 20 mg Senna/Docusate Sodium (Senokot-S, Aleah-Colace) 2 tablet PO BID [facility] Last Admin: 11/21/17 07:49 Dose: Not Given Medical Necessity - Tobacco Use Smoking Status: Never smoker Tobacco Use: Non-smoker Assessment/Plan All Active Problems (Last Updated 04/09/17 @ 14:08 by Kendrick Godwin) Stroke (Acute) Hip hematoma, right (Acute) Debility s/p small to moderate left MCA infarct. Complicated by HTN, HLD. goal of rehab is yazidi of functional independence. Plan: - Physical therapy for gait and balance - Occupational Therapy for ADLs - Speech therapy - As needed analgesics - Bowel protocol - Stroke prevention on ASA, Statin and Lovenox - DVT prophylaxis: SCDs, ASA, Lovenox - MRI brain -> showed small to moderate acute left MCA stroke (left posterior putamen) - MRA head/neck => showed normal carotids - [address] head- was negative for hemorrhage - Acute right hip hematoma- improved - Hx HTN continue home medications, Goal BP < 130/80 mmHg and goal Hba1c <7% - Avoid hypotension - Hx of HLD continue home statin - Hx of depression currently not on any medications, was on a low dose of Paxil as needed => restart Paxil at 20mg daily - Hx of Fibromyalgia currently not on any medications - 30 day event recorder as outpatient. - Fall precautions - Muscle spasms=> Improved with Baclofen 5mg nightly increase to BID titrate up to 10mg BID => decrease to 5mg BID now that she is taking her sleeping pill at night. D/C the morning dose of Baclofen - Insomnia => continue patient home sleeping pill - Doxepin 25 mg at bedtime
[2017-11-21 11:38] VITALS: BMI 28.1
--- NOTE | 2017-11-21 12:42 | PN_ITS ---
Subjective: Patient seen right sided weakness continues to improve Objective: GENERAL: cooperative HEENT: Atraumatic; moist oral mucosa EYES; Anicteric, Normal Conjunctiva NECK; supple, normal thyroid, no distended JVD. RESPIRATORY: Diminished to auscultation bilaterally, CARDIOVASCULAR: Regular S1 S2, no audible murmurs GI: soft, non-tender, normoactive bowel sounds, : No Renal angle tenderness; No garcia EXTREMITIES: No edema, no clubbing, no cyanosis. MUSCULOSKELTAL: No Joint Tenderness; no muscle waisting NEURO: Awake; right-sided hemiparesis SKIN: No Rash PSYCH; Normal affect Vitals/I&O's: Vital Signs Temp Pulse Resp BP Pulse Ox 98.3 F 70 18 127/70 H 94 11/21/17 07:46 11/21/17 07:46 11/21/17 07:46 11/21/17 07:46 11/21/17 07:46 Oxygen Delivery Method Room Air Weight: 68.8 kg Body Mass Index (BMI) 28.1 Finger Stick Blood Glucose 109 Intake and Output for Last 24 Hours 11/19/17 11/20/17 11/21/17 23:59 23:59 23:59 Intake Total 720 / 720 680 / 680 Balance 720 / 720 680 / 680 Current Medications Acetaminophen (Tylenol) 650 mg PO Q6H PRN PRN PRN Reason: Mild Pain (0-3/10)/Headache Last Admin: 11/15/17 02:21 Dose: 650 mg Aspirin (Ecotrin) 81 mg PO DAILY@0800 [facility] Last Admin: 11/21/17 07:48 Dose: 81 mg Atorvastatin Calcium (Lipitor) 40 mg PO QHS [facility] Last Admin: 11/20/17 21:01 Dose: 40 mg Baclofen (Lioresal) 5 mg PO 1999 [facility] Last Admin: 11/20/17 21:01 Dose: 5 mg Bisacodyl (Dulcolax) 10 mg RECTAL .PRN X 1 PRN PRN Reason: Constipation Chlorthalidone (Hygroton) 25 mg PO DAILY [facility] Last Admin: 11/21/17 07:48 Dose: 25 mg Doxepin HCl (Sinequan) 25 mg PO QHS PRN PRN Reason: SLEEP Last Admin: 11/19/17 21:05 Dose: 25 mg Enoxaparin Sodium (Lovenox) 40 mg SC DAILY@0600 [facility] Last Admin: 11/21/17 07:48 Dose: 40 mg Ergocalciferol (Vitamin D) 50,000 unit PO Q7D [facility] Last Admin: 11/16/17 07:37 Dose: 50,000 unit Losartan Potassium (Cozaar) 100 mg PO DAILY [facility] Last Admin: 11/21/17 07:48 Dose: 100 mg Magnesium Hydroxide (Milk Of Magnesia) 30 ml PO .PRN X 1 PRN PRN Reason: Constipation Multivitamins (Multivitamin) 1 tablet PO DAILY@0800 [facility] Last Admin: 11/21/17 07:48 Dose: 1 tablet Pantoprazole Sodium (Protonix) 40 mg PO DAILY PRN PRN Reason: STOMACH DISCOMFORT Paroxetine HCl (Paxil) 20 mg PO DAILY [facility] Last Admin: 11/21/17 07:48 Dose: 20 mg Senna/Docusate Sodium (Senokot-S, Aleah-Colace) 2 tablet PO BID [facility] Last Admin: 11/21/17 07:49 Dose: Not Given Medical Necessity - Tobacco Use Smoking Status: Never smoker Tobacco Use: Non-smoker Assessment/Plan All Active Problems (Last Updated 04/09/17 @ 14:08 by Kendrick Godwin) Stroke (Acute) Hip hematoma, right (Acute) Patient is a 77-year-old lady admitted to the inpatient rehab unit with significant debility secondary to acute left MCA stroke for which she did receive TPA 1. Physical debility secondary to acute left MCA stroke. Patient did receive TPA currently admitted to inpatient rehab unit where she is undergoing therapy. Patient is on antiplatelet therapy with aspirin in addition to statins 2. Dyslipidemia-patient is on statin therapy, continued at home dose 3. Hypertension-blood pressure controlled, home medications continued with dose adjustment as needed 4. DVT prophylaxis SC Lovenox Code Visit Inpatient E&M: 30857 Subs Hosp L2
[2017-11-21 21:00] VITALS: BP 154/76; PULSE 66; RESP 18; TEMP 36.6; O2SAT 93; BMI 28.1
[2017-11-21] MEDS: Baclofen 10 MG Tablet 5 MG PO (21:31)
[2017-11-21] MEDS: Atorvastatin Calcium 40 MG Tablet PO (21:32)
[2017-11-22] MEDS: Enoxaparin 40 MG/0.4 ML Syringe SC (05:07)
--- NOTE | 2017-11-22 05:20 | NURSING ---
REVIEWED AND AGREE WITH TRANSFORMATION ANALYST'S FIM AND HANDOFF CHARTING.
[2017-11-22 07:51] VITALS: BP 136/67; PULSE 66; RESP 16; TEMP 36.6; O2SAT 96
[2017-11-22] MEDS: Chlorthalidone 50 MG Tablet 25 MG PO (07:52)
[2017-11-22] MEDS: Aspirin E.C. 81 MG Tablet PO (07:52)
[2017-11-22] MEDS: Losartan Potassium 100 MG Tablet PO (07:52)
[2017-11-22] MEDS: Multivitamins,Therapeutic Tablet 1 TABLET PO (07:52)
[2017-11-22 09:31] VITALS: BMI 28.1
--- NOTE | 2017-11-22 09:48 | PCM.PN.NEU ---
Subjective: Staffed in Team meeting. Family at bedside, questions answered. With Physical therapy, this week she is not walking as far or as long as the previous week due to excessive tiredness. She has walked up and down 7 steps with a light hand for balance. With Occupational therapy, with lower body dressing she is able to dress herself with minimal assistance, for bathing she is stand by assist. With toileting, the amount of assistance required varies from her being able to do everything herself to requiring minimal assist with hygiene. With Speech therapy, she still has some dropping with the right lip but, this is not impacting her speech. She is doing well with eating and drinking, they are now working on strategy to slow the rate of her speech down which makes it difficult to understand her at times. With Nursing, still having muscle spasms at night was on Baclofen but due to how tired she is doing the day will switch to Zanaflex at night. Will re-team her again on 11/29. - Physical Exam General: Alert, Oriented x3, Cooperative HEENT: Atraumatic, PERRLA, EOMI, Normocephalic Neck: Supple, No JVD, Negative Carotid Bruits Lungs: Clear to auscultation, Normal air movement Cardiovascular: Regular rate, No murmurs Abdomen: Bowel Sounds Present, Soft, Non Tender Extremities: No edema, Capillary Refill Less than 3 Seconds Skin: No rashes, No breakdown Musculoskeletal: No Tenderness to Palpation of Joints or Extremities Neurological: Cranial nerves II-XII grossly intact Psych/Mental Status: Normal Affect, Appropriate, Alert and oriented to time, place, person, mood and affect Vital Signs Temp Pulse Resp BP Pulse Ox 97.9 F 66 16 136/67 H 96 11/22/17 07:51 11/22/17 07:51 11/22/17 07:51 11/22/17 07:51 11/22/17 07:51 Oxygen Delivery Method Room Air Weight: 68.8 kg Body Mass Index (BMI) 28.1 Finger Stick Blood Glucose 109 Intake and Output for Last 24 Hours 11/20/17 11/21/17 11/22/17 23:59 23:59 23:59 Intake Total 680 / 680 Balance 680 / 680 Active Medications Acetaminophen (Tylenol) 650 mg PO Q6H PRN PRN PRN Reason: Mild Pain (0-3/10)/Headache Last Admin: 11/15/17 02:21 Dose: 650 mg Aspirin (Ecotrin) 81 mg PO DAILY@0800 [facility] Last Admin: 11/22/17 07:52 Dose: 81 mg Atorvastatin Calcium (Lipitor) 40 mg PO QHS [facility] Last Admin: 11/21/17 21:32 Dose: 40 mg Bisacodyl (Dulcolax) 10 mg RECTAL .PRN X 1 PRN PRN Reason: Constipation Chlorthalidone (Hygroton) 25 mg PO DAILY [facility] Last Admin: 11/22/17 07:52 Dose: 25 mg Doxepin HCl (Sinequan) 25 mg PO QHS PRN PRN Reason: SLEEP Last Admin: 11/19/17 21:05 Dose: 25 mg Enoxaparin Sodium (Lovenox) 40 mg SC DAILY@0600 [facility] Last Admin: 11/22/17 05:07 Dose: 40 mg Ergocalciferol (Vitamin D) 50,000 unit PO Q7D [facility] Last Admin: 11/16/17 07:37 Dose: 50,000 unit Losartan Potassium (Cozaar) 100 mg PO DAILY [facility] Last Admin: 11/22/17 07:52 Dose: 100 mg Magnesium Hydroxide (Milk Of Magnesia) 30 ml PO .PRN X 1 PRN PRN Reason: Constipation Multivitamins (Multivitamin) 1 tablet PO DAILY@0800 [facility] Last Admin: 11/22/17 07:52 Dose: 1 tablet Pantoprazole Sodium (Protonix) 40 mg PO DAILY PRN PRN Reason: STOMACH DISCOMFORT Paroxetine HCl (Paxil) 20 mg PO DAILY [facility] Last Admin: 11/22/17 08:23 Dose: 20 mg Senna/Docusate Sodium (Senokot-S, Aleah-Colace) 2 tablet PO BID [facility] Last Admin: 11/22/17 07:38 Dose: Not Given Tizanidine HCl (Zanaflex) 2 mg PO 1999 [facility] Medical Necessity - Tobacco Use Smoking Status: Never smoker Tobacco Use: Non-smoker Assessment/Plan All Active Problems (Last Updated 04/09/17 @ 14:08 by Kendrick Godwin) Stroke (Acute) Hip hematoma, right (Acute) Debility s/p small to moderate left MCA infarct. Complicated by HTN, HLD. goal of rehab is cheondoism of functional independence. Plan: - Physical therapy for gait and balance - Occupational Therapy for ADLs - Speech therapy - As needed analgesics - Bowel protocol - Stroke prevention on ASA, Statin and Lovenox - DVT prophylaxis: SCDs, ASA, Lovenox - MRI brain -> showed small to moderate acute left MCA stroke (left posterior putamen) - MRA head/neck => showed normal carotids - [address] head- was negative for hemorrhage - Acute right hip hematoma- improved - Hx HTN continue home medications, Goal BP < 130/80 mmHg and goal Hba1c <7% - Avoid hypotension - Hx of HLD continue home statin - Hx of depression currently not on any medications, was on a low dose of Paxil as needed => restart Paxil at 20mg daily - Hx of Fibromyalgia currently not on any medications - 30 day event recorder as outpatient. - Fall precautions - Muscle spasms=> Improved with Baclofen 5mg nightly increase to BID titrate up to 10mg BID => decrease to 5mg BID now that she is taking her sleeping pill at night. D/C the morning dose of Baclofen => given how tire she is during her therapy session will change Baclofen to Zanaflex 2mg at bed time, change Knee highs to short thigh highs. - Insomnia => continue patient home sleeping pill - Doxepin 25 mg at bedtime as needed.
--- NOTE | 2017-11-22 10:03 | PN.NEURO_ITS ---
Subjective: Staffed in Team meeting. Family at bedside, questions answered. With Physical therapy, this week she is not walking as far or as long as the previous week due to excessive tiredness. She has walked up and down 7 steps with a light hand for balance. With Occupational therapy, with lower body dressing she is able to dress herself with minimal assistance, for bathing she is stand by assist. With toileting, the amount of assistance required varies from her being able to do everything herself to requiring minimal assist with hygiene. With Speech therapy, she still has some dropping with the right lip but, this is not impacting her speech. She is doing well with eating and drinking, they are now working on strategy to slow the rate of her speech down which makes it difficult to understand her at times. With Nursing, still having muscle spasms at night was on Baclofen but due to how tired she is doing the day will switch to Zanaflex at night. Will re-team her again on 11/29. - Physical Exam General: Alert, Oriented x3, Cooperative HEENT: Atraumatic, PERRLA, EOMI, Normocephalic Neck: Supple, No JVD, Negative Carotid Bruits Lungs: Clear to auscultation, Normal air movement Cardiovascular: Regular rate, No murmurs Abdomen: Bowel Sounds Present, Soft, Non Tender Extremities: No edema, Capillary Refill Less than 3 Seconds Skin: No rashes, No breakdown Musculoskeletal: No Tenderness to Palpation of Joints or Extremities Neurological: Cranial nerves II-XII grossly intact Psych/Mental Status: Normal Affect, Appropriate, Alert and oriented to time, place, person, mood and affect Vital Signs Temp Pulse Resp BP Pulse Ox 97.9 F 66 16 136/67 H 96 11/22/17 07:51 11/22/17 07:51 11/22/17 07:51 11/22/17 07:51 11/22/17 07:51 Oxygen Delivery Method Room Air Weight: 68.8 kg Body Mass Index (BMI) 28.1 Finger Stick Blood Glucose 109 Intake and Output for Last 24 Hours 11/20/17 11/21/17 11/22/17 23:59 23:59 23:59 Intake Total 680 / 680 Balance 680 / 680 Active Medications Acetaminophen (Tylenol) 650 mg PO Q6H PRN PRN PRN Reason: Mild Pain (0-3/10)/Headache Last Admin: 11/15/17 02:21 Dose: 650 mg Aspirin (Ecotrin) 81 mg PO DAILY@0800 [facility] Last Admin: 11/22/17 07:52 Dose: 81 mg Atorvastatin Calcium (Lipitor) 40 mg PO QHS [facility] Last Admin: 11/21/17 21:32 Dose: 40 mg Bisacodyl (Dulcolax) 10 mg RECTAL .PRN X 1 PRN PRN Reason: Constipation Chlorthalidone (Hygroton) 25 mg PO DAILY [facility] Last Admin: 11/22/17 07:52 Dose: 25 mg Doxepin HCl (Sinequan) 25 mg PO QHS PRN PRN Reason: SLEEP Last Admin: 11/19/17 21:05 Dose: 25 mg Enoxaparin Sodium (Lovenox) 40 mg SC DAILY@0600 [facility] Last Admin: 11/22/17 05:07 Dose: 40 mg Ergocalciferol (Vitamin D) 50,000 unit PO Q7D [facility] Last Admin: 11/16/17 07:37 Dose: 50,000 unit Losartan Potassium (Cozaar) 100 mg PO DAILY [facility] Last Admin: 11/22/17 07:52 Dose: 100 mg Magnesium Hydroxide (Milk Of Magnesia) 30 ml PO .PRN X 1 PRN PRN Reason: Constipation Multivitamins (Multivitamin) 1 tablet PO DAILY@0800 [facility] Last Admin: 11/22/17 07:52 Dose: 1 tablet Pantoprazole Sodium (Protonix) 40 mg PO DAILY PRN PRN Reason: STOMACH DISCOMFORT Paroxetine HCl (Paxil) 20 mg PO DAILY [facility] Last Admin: 11/22/17 08:23 Dose: 20 mg Senna/Docusate Sodium (Senokot-S, Aleah-Colace) 2 tablet PO BID [facility] Last Admin: 11/22/17 07:38 Dose: Not Given Tizanidine HCl (Zanaflex) 2 mg PO 1999 [facility] Medical Necessity - Tobacco Use Smoking Status: Never smoker Tobacco Use: Non-smoker Assessment/Plan All Active Problems (Last Updated 04/09/17 @ 14:08 by Kendrick Godwin) Stroke (Acute) Hip hematoma, right (Acute) Debility s/p small to moderate left MCA infarct. Complicated by HTN, HLD. goal of rehab is yazidi of functional independence. Plan: - Physical therapy for gait and balance - Occupational Therapy for ADLs - Speech therapy - As needed analgesics - Bowel protocol - Stroke prevention on ASA, Statin and Lovenox - DVT prophylaxis: SCDs, ASA, Lovenox - MRI brain -> showed small to moderate acute left MCA stroke (left posterior putamen) - MRA head/neck => showed normal carotids - [address] head- was negative for hemorrhage - Acute right hip hematoma- improved - Hx HTN continue home medications, Goal BP < 130/80 mmHg and goal Hba1c <7% - Avoid hypotension - Hx of HLD continue home statin - Hx of depression currently not on any medications, was on a low dose of Paxil as needed => restart Paxil at 20mg daily - Hx of Fibromyalgia currently not on any medications - 30 day event recorder as outpatient. - Fall precautions - Muscle spasms=> Improved with Baclofen 5mg nightly increase to BID titrate up to 10mg BID => decrease to 5mg BID now that she is taking her sleeping pill at night. D/C the morning dose of Baclofen => given how tire she is during her therapy session will change Baclofen to Zanaflex 2mg at bed time, change Knee highs to short thigh highs. - Insomnia => continue patient home sleeping pill - Doxepin 25 mg at bedtime as needed.
--- NOTE | 2017-11-22 13:12 | CASEMGMT ---
Team meeting held on this day. Patient present as well as patient family. No discharge date set at this time. Patient to continue with further care and treatment on the Inpatient Rehab Unit at this time. Patient plans to discharge to home with spouse at time of discharge. Support given. Will continue to follow. Bonita MOSELEY, HAND HEEL SEAT FITTER
[2017-11-22 19:39] VITALS: BP 136/69; PULSE 89; RESP 16; TEMP 36.4; O2SAT 93
[2017-11-22 20:56] VITALS: BMI 28.1
[2017-11-22] MEDS: Atorvastatin Calcium 40 MG Tablet PO (21:04)
[2017-11-22] MEDS: tiZANidine HCl 2 MG Tablet PO (21:04)
[2017-11-23] MEDS: Enoxaparin 40 MG/0.4 ML Syringe SC (06:03)
[2017-11-23 07:38] VITALS: BP 132/70; PULSE 64; RESP 16; TEMP 36.6; O2SAT 95
[2017-11-23] MEDS: Aspirin E.C. 81 MG Tablet PO (08:12)
[2017-11-23] MEDS: Losartan Potassium 100 MG Tablet PO (08:12)
[2017-11-23] MEDS: Chlorthalidone 50 MG Tablet 25 MG PO (08:12)
[2017-11-23] MEDS: Multivitamins,Therapeutic Tablet 1 TABLET PO (08:12)
--- NOTE | 2017-11-23 14:28 | PN.NEURO_ITS ---
Subjective: Patient seen and examined. No new complaints. Tolerating therapy. Denies any blurry vision, double vision, or headaches. No issues with GI/. - Physical Exam General: Alert, Oriented x3, Cooperative HEENT: Atraumatic, PERRLA, EOMI, Normocephalic Neck: Supple, No JVD, Negative Carotid Bruits Lungs: Clear to auscultation, Normal air movement Cardiovascular: Regular rate, No murmurs Abdomen: Bowel Sounds Present, Soft, Non Tender Extremities: No edema, Capillary Refill Less than 3 Seconds Skin: No rashes, No breakdown Musculoskeletal: No Tenderness to Palpation of Joints or Extremities Neurological: Cranial nerves II-XII grossly intact Psych/Mental Status: Normal Affect, Appropriate, Alert and oriented to time, place, person, mood and affect Vital Signs Temp Pulse Resp BP Pulse Ox 97.9 F 64 16 132/70 H 95 11/23/17 07:38 11/23/17 07:38 11/23/17 07:38 11/23/17 07:38 11/23/17 07:38 Oxygen Delivery Method Room Air Weight: 68.8 kg Body Mass Index (BMI) 28.1 Finger Stick Blood Glucose 109 Intake and Output for Last 24 Hours 11/21/17 11/22/17 11/23/17 23:59 23:59 23:59 Intake Total 360 / 360 Balance 360 / 360 Active Medications Acetaminophen (Tylenol) 650 mg PO Q6H PRN PRN PRN Reason: Mild Pain (0-3/10)/Headache Last Admin: 11/15/17 02:21 Dose: 650 mg Aspirin (Ecotrin) 81 mg PO DAILY@0800 [facility] Last Admin: 11/23/17 08:12 Dose: 81 mg Atorvastatin Calcium (Lipitor) 40 mg PO QHS [facility] Last Admin: 11/22/17 21:04 Dose: 40 mg Bisacodyl (Dulcolax) 10 mg RECTAL .PRN X 1 PRN PRN Reason: Constipation Chlorthalidone (Hygroton) 25 mg PO DAILY [facility] Last Admin: 11/23/17 08:12 Dose: 25 mg Doxepin HCl (Sinequan) 25 mg PO QHS PRN PRN Reason: SLEEP Last Admin: 11/19/17 21:05 Dose: 25 mg Enoxaparin Sodium (Lovenox) 40 mg SC DAILY@0600 [facility] Last Admin: 10/12/18 06:03 Dose: 40 mg Ergocalciferol (Vitamin D) 50,000 unit PO Q7D [facility] Last Admin: 11/23/17 08:12 Dose: 50,000 unit Loratadine (Claritin) 10 mg PO DAILY PRN PRN Reason: ALLERGIES Losartan Potassium (Cozaar) 100 mg PO DAILY [facility] Last Admin: 11/23/17 08:12 Dose: 100 mg Magnesium Hydroxide (Milk Of Magnesia) 30 ml PO .PRN X 1 PRN PRN Reason: Constipation Multivitamins (Multivitamin) 1 tablet PO DAILY@0800 [facility] Last Admin: 11/23/17 08:12 Dose: 1 tablet Pantoprazole Sodium (Protonix) 40 mg PO DAILY PRN PRN Reason: STOMACH DISCOMFORT Paroxetine HCl (Paxil) 20 mg PO DAILY [facility] Last Admin: 11/23/17 08:12 Dose: 20 mg Senna/Docusate Sodium (Senokot-S, Aleah-Colace) 2 tablet PO BID [facility] Last Admin: 11/23/17 08:11 Dose: Not Given Tizanidine HCl (Zanaflex) 2 mg PO 1999 [facility] Last Admin: 11/22/17 21:04 Dose: 2 mg Medical Necessity - Tobacco Use Smoking Status: Never smoker Tobacco Use: Non-smoker Assessment/Plan All Active Problems (Last Updated 04/09/17 @ 14:08 by Kendrick Godwin) Stroke (Acute) Hip hematoma, right (Acute) Debility s/p small to moderate left MCA infarct. Complicated by HTN, HLD. goal of rehab is adventist of functional independence. Plan: - Physical therapy for gait and balance - Occupational Therapy for ADLs - Speech therapy - As needed analgesics - Bowel protocol - Stroke prevention on ASA, Statin and Lovenox - DVT prophylaxis: SCDs, ASA, Lovenox - MRI brain -> showed small to moderate acute left MCA stroke (left posterior putamen) - MRA head/neck => showed normal carotids - [address] head- was negative for hemorrhage - Acute right hip hematoma- improved - Hx HTN continue home medications, Goal BP < 130/80 mmHg and goal Hba1c <7% - Avoid hypotension - Hx of HLD continue home statin - Hx of depression currently not on any medications, was on a low dose of Paxil as needed => restart Paxil at 20mg daily - Hx of Fibromyalgia currently not on any medications - 30 day event recorder as outpatient. - Fall precautions - Muscle spasms=> Improved with Baclofen 5mg nightly increase to BID titrate up to 10mg BID => decrease to 5mg BID now that she is taking her sleeping pill at night. D/C the morning dose of Baclofen => given how tire she is during her therapy session will change Baclofen to Zanaflex 2mg at bed time, change Knee highs to short thigh highs. - Insomnia => continue patient home sleeping pill - Doxepin 25 mg at bedtime as needed.
[2017-11-23 14:55] VITALS: BMI 28.1
[2017-11-23] MEDS: Loratadine 10 MG Tablet PO (16:42)
--- NOTE | 2017-11-23 17:34 | PCM.PN.HOSP ---
Subjective: Patient seen strength in right upper extremity continues to improve. 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 Objective: GENERAL: cooperative HEENT: Atraumatic; moist oral mucosa EYES; Anicteric, Normal Conjunctiva NECK; supple, normal thyroid, no distended JVD. RESPIRATORY: Diminished to auscultation bilaterally, CARDIOVASCULAR: Regular S1 S2, no audible murmurs GI: soft, non-tender, normoactive bowel sounds, : No Renal angle tenderness; No garcia EXTREMITIES: No edema, no clubbing, no cyanosis. MUSCULOSKELTAL: No Joint Tenderness; no muscle waisting NEURO: Awake; right-sided hemiparesis SKIN: No Rash PSYCH; Normal affect Vitals/I&O's: Vital Signs Temp Pulse Resp BP Pulse Ox 97.9 F 64 16 132/70 H 95 11/23/17 07:38 11/23/17 07:38 11/23/17 07:38 11/23/17 07:38 11/23/17 07:38 Oxygen Delivery Method Room Air Weight: 68.8 kg Body Mass Index (BMI) 28.1 Finger Stick Blood Glucose 109 Intake and Output for Last 24 Hours 11/21/17 11/22/17 11/23/17 23:59 23:59 23:59 Intake Total 720 / 720 Balance 720 / 720 Current Medications Acetaminophen (Tylenol) 650 mg PO Q6H PRN PRN PRN Reason: Mild Pain (0-3/10)/Headache Last Admin: 11/15/17 02:21 Dose: 650 mg Aspirin (Ecotrin) 81 mg PO DAILY@0800 [facility] Last Admin: 11/23/17 08:12 Dose: 81 mg Atorvastatin Calcium (Lipitor) 40 mg PO QHS [facility] Last Admin: 11/22/17 21:04 Dose: 40 mg Bisacodyl (Dulcolax) 10 mg RECTAL .PRN X 1 PRN PRN Reason: Constipation Chlorthalidone (Hygroton) 25 mg PO DAILY [facility] Last Admin: 11/23/17 08:12 Dose: 25 mg Doxepin HCl (Sinequan) 25 mg PO QHS PRN PRN Reason: SLEEP Last Admin: 11/19/17 21:05 Dose: 25 mg Enoxaparin Sodium (Lovenox) 40 mg SC DAILY@0600 [facility] Last Admin: 11/23/17 06:03 Dose: 40 mg Ergocalciferol (Vitamin D) 50,000 unit PO Q7D [facility] Last Admin: 11/23/17 08:12 Dose: 50,000 unit Loratadine (Claritin) 10 mg PO DAILY PRN PRN Reason: ALLERGIES Last Admin: 11/23/17 16:42 Dose: 10 mg Losartan Potassium (Cozaar) 100 mg PO DAILY [facility] Last Admin: 11/23/17 08:12 Dose: 100 mg Magnesium Hydroxide (Milk Of Magnesia) 30 ml PO .PRN X 1 PRN PRN Reason: Constipation Multivitamins (Multivitamin) 1 tablet PO DAILY@0800 [facility] Last Admin: 11/23/17 08:12 Dose: 1 tablet Pantoprazole Sodium (Protonix) 40 mg PO DAILY PRN PRN Reason: STOMACH DISCOMFORT Paroxetine HCl (Paxil) 20 mg PO DAILY [facility] Last Admin: 11/23/17 08:12 Dose: 20 mg Senna/Docusate Sodium (Senokot-S, Aleah-Colace) 2 tablet PO BID [facility] Last Admin: 11/23/17 08:11 Dose: Not Given Tizanidine HCl (Zanaflex) 2 mg PO 1999 [facility] Last Admin: 11/22/17 21:04 Dose: 2 mg Medical Necessity - Tobacco Use Smoking Status: Never smoker Tobacco Use: Non-smoker Assessment/Plan All Active Problems (Last Updated 04/09/17 @ 14:08 by Kendrick Godwin) Stroke (Acute) Hip hematoma, right (Acute) Patient is a 77-year-old lady admitted to the inpatient rehab unit with significant debility secondary to acute left MCA stroke for which she did receive TPA 1. Physical debility secondary to acute left MCA stroke. Patient did receive TPA currently admitted to inpatient rehab unit where she is undergoing therapy. Patient is on antiplatelet therapy with aspirin in addition to statins PT proceeding as expected. She continues to regain strength in her right upper extreme 2. Dyslipidemia-patient is on statin therapy, continued at home dose 3. Hypertension-blood pressure controlled, home medications continued with dose adjustment as needed 4. DVT prophylaxis SC Lovenox Code Visit Inpatient E&M: 39281 Subs Hosp L2
[2017-11-23 20:13] VITALS: BP 135/72; PULSE 74; RESP 16; TEMP 36.6; O2SAT 96
[2017-11-23 21:30] VITALS: PULSE 74; RESP 16; O2SAT 96; BMI 28.1
[2017-11-23] MEDS: Atorvastatin Calcium 40 MG Tablet PO (21:39)
[2017-11-23] MEDS: tiZANidine HCl 2 MG Tablet PO (21:39)
[2017-11-23] MEDS: Doxepin Hcl 25 MG Capsule PO (21:42)
--- NOTE | 2017-11-24 03:32 | NURSING ---
REVIEWED AND AGREE WITH [employer] FIM AND HANDOFF CHARTING.
[2017-11-24] MEDS: Enoxaparin 40 MG/0.4 ML Syringe SC (05:03)
[2017-11-24 07:36] VITALS: BP 115/54; PULSE 61; RESP 18; TEMP 36.7; O2SAT 97
[2017-11-24] MEDS: Chlorthalidone 50 MG Tablet 25 MG PO (09:55)
[2017-11-24] MEDS: Multivitamins,Therapeutic Tablet 1 TABLET PO (09:56)
[2017-11-24] MEDS: Losartan Potassium 100 MG Tablet PO (09:56)
[2017-11-24] MEDS: Aspirin E.C. 81 MG Tablet PO (09:57)
[2017-11-24 10:08] VITALS: BMI 28.1
[2017-11-24] MEDS: Loratadine 10 MG Tablet PO (15:01)
[2017-11-24 18:50] VITALS: BP 141/80; PULSE 93; RESP 16; TEMP 36.4; O2SAT 95
[2017-11-24] MEDS: Atorvastatin Calcium 40 MG Tablet PO (20:56)
[2017-11-24] MEDS: Doxepin Hcl 25 MG Capsule PO (20:56)
[2017-11-24] MEDS: tiZANidine HCl 2 MG Tablet PO (20:56)
[2017-11-25 02:48] VITALS: BMI 28.1
[2017-11-25] MEDS: Enoxaparin 40 MG/0.4 ML Syringe SC (06:37)
[2017-11-25 08:19] VITALS: BP 129/68; PULSE 63; RESP 18; TEMP 36.6; O2SAT 95
[2017-11-25] MEDS: Chlorthalidone 50 MG Tablet 25 MG PO (09:09)
[2017-11-25] MEDS: Multivitamins,Therapeutic Tablet 1 TABLET PO (09:10)
[2017-11-25] MEDS: Losartan Potassium 100 MG Tablet PO (09:10)
[2017-11-25] MEDS: Aspirin E.C. 81 MG Tablet PO (09:10)
--- NOTE | 2017-11-25 09:30 | PN_ITS ---
Subjective: Patient seen did complain of difficulty with her fine mid wife strength in both right upper and lower extremities continue to improve otherwise Objective: GENERAL: cooperative HEENT: Atraumatic; moist oral mucosa EYES; Anicteric, Normal Conjunctiva NECK; supple, normal thyroid, no distended JVD. RESPIRATORY: Diminished to auscultation bilaterally, CARDIOVASCULAR: Regular S1 S2, no audible murmurs GI: soft, non-tender, normoactive bowel sounds, : No Renal angle tenderness; No garcia EXTREMITIES: No edema, no clubbing, no cyanosis. MUSCULOSKELETAL: No Joint Tenderness; no muscle waisting NEURO: Awake; right-sided hemiparesis SKIN: No Rash PSYCH; Normal affect Vitals/I&O's: Vital Signs Temp Pulse Resp BP Pulse Ox 97.9 F 63 18 129/68 H 95 11/25/17 08:19 11/25/17 08:19 11/25/17 08:19 11/25/17 08:19 11/25/17 08:19 Oxygen Delivery Method Room Air Weight: 68.8 kg Body Mass Index (BMI) 28.1 Finger Stick Blood Glucose 109 Intake and Output for Last 24 Hours 11/23/17 11/24/17 11/25/17 23:59 23:59 23:59 Intake Total 720 / 720 720 / 720 Balance 720 / 720 720 / 720 Current Medications Acetaminophen (Tylenol) 650 mg PO Q6H PRN PRN PRN Reason: Mild Pain (0-3/10)/Headache Last Admin: 11/15/17 02:21 Dose: 650 mg Aspirin (Ecotrin) 81 mg PO DAILY@0800 [facility] Last Admin: 11/25/17 09:10 Dose: 81 mg Atorvastatin Calcium (Lipitor) 40 mg PO QHS [facility] Last Admin: 11/24/17 20:56 Dose: 40 mg Bisacodyl (Dulcolax) 10 mg RECTAL .PRN X 1 PRN PRN Reason: Constipation Chlorthalidone (Hygroton) 25 mg PO DAILY [facility] Last Admin: 11/25/17 09:09 Dose: 25 mg Doxepin HCl (Sinequan) 25 mg PO QHS PRN PRN Reason: SLEEP Last Admin: 11/24/17 20:56 Dose: 25 mg Enoxaparin Sodium (Lovenox) 40 mg SC DAILY@0600 [facility] Last Admin: 11/25/17 06:37 Dose: 40 mg Ergocalciferol (Vitamin D) 50,000 unit PO Q7D [facility] Last Admin: 11/23/17 08:12 Dose: 50,000 unit Loratadine (Claritin) 10 mg PO DAILY PRN PRN Reason: ALLERGIES Last Admin: 11/24/17 15:01 Dose: 10 mg Losartan Potassium (Cozaar) 100 mg PO DAILY [facility] Last Admin: 11/25/17 09:10 Dose: 100 mg Magnesium Hydroxide (Milk Of Magnesia) 30 ml PO .PRN X 1 PRN PRN Reason: Constipation Multivitamins (Multivitamin) 1 tablet PO DAILY@0800 [facility] Last Admin: 11/25/17 09:10 Dose: 1 tablet Pantoprazole Sodium (Protonix) 40 mg PO DAILY PRN PRN Reason: STOMACH DISCOMFORT Paroxetine HCl (Paxil) 20 mg PO DAILY [facility] Last Admin: 11/25/17 09:10 Dose: 20 mg Senna/Docusate Sodium (Senokot-S, Aleah-Colace) 2 tablet PO BID [facility] Last Admin: 11/25/17 09:09 Dose: Not Given Tizanidine HCl (Zanaflex) 2 mg PO 1999 [facility] Last Admin: 11/24/17 20:56 Dose: 2 mg Medical Necessity - Tobacco Use Smoking Status: Never smoker Tobacco Use: Non-smoker Assessment/Plan All Active Problems (Last Updated 04/09/17 @ 14:08 by Kendrick Godwin) Stroke (Acute) Hip hematoma, right (Acute) Patient is a 77-year-old lady admitted to the inpatient rehab unit with significant debility secondary to acute left MCA stroke for which she did receive TPA 1. Physical debility secondary to acute left MCA stroke. Patient did receive TPA currently admitted to inpatient rehab unit where she is undergoing therapy. Patient is on antiplatelet therapy with aspirin in addition to statins PT proceeding as expected. She continues to regain strength in her right upper extreme 2. Dyslipidemia-patient is on statin therapy, continued at home dose 3. Hypertension-blood pressure controlled, home medications continued with dose adjustment as needed 4. DVT prophylaxis SC Lovenox Code Visit Inpatient E&M: 49169 Subs Hosp L2
[2017-11-25 10:02] VITALS: BMI 28.1
[2017-11-25] MEDS: tiZANidine HCl 2 MG Tablet PO (20:10)
[2017-11-25] MEDS: Atorvastatin Calcium 40 MG Tablet PO (20:11)
[2017-11-25] MEDS: Doxepin Hcl 25 MG Capsule PO (20:11)
[2017-11-25 20:15] VITALS: BP 133/71; PULSE 76; RESP 18; TEMP 36.4; O2SAT 93
[2017-11-25 20:17] VITALS: BMI 28.1
--- NOTE | 2017-11-26 02:39 | NURSING ---
Reviewed and agree with [employer] documentation and FIMs charting.
[2017-11-26] MEDS: Enoxaparin 40 MG/0.4 ML Syringe SC (05:49)
[2017-11-26 07:27] VITALS: BP 142/64; PULSE 72; RESP 18; TEMP 36.6; O2SAT 93
[2017-11-26] MEDS: Multivitamins,Therapeutic Tablet 1 TABLET PO (07:29)
[2017-11-26] MEDS: Aspirin E.C. 81 MG Tablet PO (07:29)
[2017-11-26] MEDS: Chlorthalidone 50 MG Tablet 25 MG PO (07:29)
[2017-11-26] MEDS: Losartan Potassium 100 MG Tablet PO (07:29)
[2017-11-26] MEDS: Acetaminophen 325 MG Tablet 650 MG PO (10:22)
--- NOTE | 2017-11-26 10:49 | PCM.PN.NEU ---
Subjective: Patient seen and examined. No acute events overnight. Tolerating therapy. Denies any new focal deficits, blurry vision or double vision. No issues with GI/. - Physical Exam General: Alert, Oriented x3, Cooperative HEENT: Atraumatic, PERRLA, EOMI, Normocephalic Neck: Supple, No JVD, Negative Carotid Bruits Lungs: Clear to auscultation, Normal air movement Cardiovascular: Regular rate, No murmurs Abdomen: Bowel Sounds Present, Soft, Non Tender Extremities: No edema, Capillary Refill Less than 3 Seconds Skin: No rashes, No breakdown Musculoskeletal: No Tenderness to Palpation of Joints or Extremities Neurological: Cranial nerves II-XII grossly intact Psych/Mental Status: Normal Affect, Appropriate, Alert and oriented to time, place, person, mood and affect Vital Signs Temp Pulse Resp BP Pulse Ox 97.9 F 72 18 142/64 H 93 11/26/17 07:27 11/26/17 07:27 11/26/17 07:27 11/26/17 07:27 11/26/17 07:27 Oxygen Delivery Method Room Air Weight: 68.8 kg Body Mass Index (BMI) 28.1 Finger Stick Blood Glucose 109 Intake and Output for Last 24 Hours 11/24/17 11/25/17 11/26/17 23:59 23:59 23:59 Intake Total 720 / 720 360 / 360 Balance 720 / 720 360 / 360 Active Medications Acetaminophen (Tylenol) 650 mg PO Q6H PRN PRN PRN Reason: Mild Pain (0-3/10)/Headache Last Admin: 11/26/17 10:22 Dose: 650 mg Aspirin (Ecotrin) 81 mg PO DAILY@0800 [facility] Last Admin: 11/26/17 07:29 Dose: 81 mg Atorvastatin Calcium (Lipitor) 40 mg PO QHS [facility] Last Admin: 11/25/17 20:11 Dose: 40 mg Bisacodyl (Dulcolax) 10 mg RECTAL .PRN X 1 PRN PRN Reason: Constipation Chlorthalidone (Hygroton) 25 mg PO DAILY [facility] Last Admin: 11/26/17 07:29 Dose: 25 mg Doxepin HCl (Sinequan) 25 mg PO QHS PRN PRN Reason: SLEEP Last Admin: 11/25/17 20:11 Dose: 25 mg Enoxaparin Sodium (Lovenox) 40 mg SC DAILY@0600 [facility] Last Admin: 11/26/17 05:49 Dose: 40 mg Ergocalciferol (Vitamin D) 50,000 unit PO Q7D [facility] Last Admin: 11/23/17 08:12 Dose: 50,000 unit Loratadine (Claritin) 10 mg PO DAILY PRN PRN Reason: ALLERGIES Last Admin: 11/24/17 15:01 Dose: 10 mg Losartan Potassium (Cozaar) 100 mg PO DAILY [facility] Last Admin: 11/26/17 07:29 Dose: 100 mg Magnesium Hydroxide (Milk Of Magnesia) 30 ml PO .PRN X 1 PRN PRN Reason: Constipation Multivitamins (Multivitamin) 1 tablet PO DAILY@0800 [facility] Last Admin: 11/26/17 07:29 Dose: 1 tablet Pantoprazole Sodium (Protonix) 40 mg PO DAILY PRN PRN Reason: STOMACH DISCOMFORT Paroxetine HCl (Paxil) 20 mg PO DAILY [facility] Last Admin: 11/26/17 07:29 Dose: 20 mg Senna/Docusate Sodium (Senokot-S, Aleah-Colace) 2 tablet PO BID [facility] Last Admin: 11/26/17 07:29 Dose: Not Given Tizanidine HCl (Zanaflex) 2 mg PO 1999 [facility] Last Admin: 11/25/17 20:10 Dose: 2 mg Medical Necessity - Tobacco Use Smoking Status: Never smoker Tobacco Use: Non-smoker Assessment/Plan All Active Problems (Last Updated 04/09/17 @ 14:08 by Kendrick Godwin) Stroke (Acute) Hip hematoma, right (Acute) Debility s/p small to moderate left MCA infarct. Complicated by HTN, HLD. goal of rehab is gnosticism of functional independence. Plan: - Physical therapy for gait and balance - Occupational Therapy for ADLs - Speech therapy - As needed analgesics - Bowel protocol - Stroke prevention on ASA, Statin and Lovenox - DVT prophylaxis: SCDs, ASA, Lovenox - MRI brain -> showed small to moderate acute left MCA stroke (left posterior putamen) - MRA head/neck => showed normal carotids - [address] head- was negative for hemorrhage - Acute right hip hematoma- improved - Hx HTN continue home medications, Goal BP < 130/80 mmHg and goal Hba1c <7% - Avoid hypotension - Hx of HLD continue home statin - Hx of depression currently not on any medications, was on a low dose of Paxil as needed => restart Paxil at 20mg daily - Hx of Fibromyalgia currently not on any medications - 30 day event recorder as outpatient. - Fall precautions - Muscle spasms=> Improved with Baclofen 5mg nightly increase to BID titrate up to 10mg BID => decrease to 5mg BID now that she is taking her sleeping pill at night. D/C the morning dose of Baclofen => given how tire she is during her therapy session will change Baclofen to Zanaflex 2mg at bed time, change Knee highs to short thigh highs. - Insomnia => continue patient home sleeping pill - Doxepin 25 mg at bedtime as needed.
--- NOTE | 2017-11-26 10:55 | PN.NEURO_ITS ---
Subjective: Patient seen and examined. No acute events overnight. Tolerating therapy. Denies any new focal deficits, blurry vision or double vision. No issues with GI/. - Physical Exam General: Alert, Oriented x3, Cooperative HEENT: Atraumatic, PERRLA, EOMI, Normocephalic Neck: Supple, No JVD, Negative Carotid Bruits Lungs: Clear to auscultation, Normal air movement Cardiovascular: Regular rate, No murmurs Abdomen: Bowel Sounds Present, Soft, Non Tender Extremities: No edema, Capillary Refill Less than 3 Seconds Skin: No rashes, No breakdown Musculoskeletal: No Tenderness to Palpation of Joints or Extremities Neurological: Cranial nerves II-XII grossly intact Psych/Mental Status: Normal Affect, Appropriate, Alert and oriented to time, place, person, mood and affect Vital Signs Temp Pulse Resp BP Pulse Ox 97.9 F 72 18 142/64 H 93 11/26/17 07:27 11/26/17 07:27 11/26/17 07:27 11/26/17 07:27 11/26/17 07:27 Oxygen Delivery Method Room Air Weight: 68.8 kg Body Mass Index (BMI) 28.1 Finger Stick Blood Glucose 109 Intake and Output for Last 24 Hours 11/24/17 11/25/17 11/26/17 23:59 23:59 23:59 Intake Total 720 / 720 360 / 360 Balance 720 / 720 360 / 360 Active Medications Acetaminophen (Tylenol) 650 mg PO Q6H PRN PRN PRN Reason: Mild Pain (0-3/10)/Headache Last Admin: 11/26/17 10:22 Dose: 650 mg Aspirin (Ecotrin) 81 mg PO DAILY@0800 [facility] Last Admin: 11/26/17 07:29 Dose: 81 mg Atorvastatin Calcium (Lipitor) 40 mg PO QHS [facility] Last Admin: 11/25/17 20:11 Dose: 40 mg Bisacodyl (Dulcolax) 10 mg RECTAL .PRN X 1 PRN PRN Reason: Constipation Chlorthalidone (Hygroton) 25 mg PO DAILY [facility] Last Admin: 11/26/17 07:29 Dose: 25 mg Doxepin HCl (Sinequan) 25 mg PO QHS PRN PRN Reason: SLEEP Last Admin: 11/25/17 20:11 Dose: 25 mg Enoxaparin Sodium (Lovenox) 40 mg SC DAILY@0600 [facility] Last Admin: 11/26/17 05:49 Dose: 40 mg Ergocalciferol (Vitamin D) 50,000 unit PO Q7D [facility] Last Admin: 11/23/17 08:12 Dose: 50,000 unit Loratadine (Claritin) 10 mg PO DAILY PRN PRN Reason: ALLERGIES Last Admin: 11/24/17 15:01 Dose: 10 mg Losartan Potassium (Cozaar) 100 mg PO DAILY [facility] Last Admin: 11/26/17 07:29 Dose: 100 mg Magnesium Hydroxide (Milk Of Magnesia) 30 ml PO .PRN X 1 PRN PRN Reason: Constipation Multivitamins (Multivitamin) 1 tablet PO DAILY@0800 [facility] Last Admin: 11/26/17 07:29 Dose: 1 tablet Pantoprazole Sodium (Protonix) 40 mg PO DAILY PRN PRN Reason: STOMACH DISCOMFORT Paroxetine HCl (Paxil) 20 mg PO DAILY [facility] Last Admin: 11/26/17 07:29 Dose: 20 mg Senna/Docusate Sodium (Senokot-S, Aleah-Colace) 2 tablet PO BID [facility] Last Admin: 11/26/17 07:29 Dose: Not Given Tizanidine HCl (Zanaflex) 2 mg PO 1999 [facility] Last Admin: 11/25/17 20:10 Dose: 2 mg Medical Necessity - Tobacco Use Smoking Status: Never smoker Tobacco Use: Non-smoker Assessment/Plan All Active Problems (Last Updated 04/09/17 @ 14:08 by Kendrick Godwin) Stroke (Acute) Hip hematoma, right (Acute) Debility s/p small to moderate left MCA infarct. Complicated by HTN, HLD. goal of rehab is [facility] of functional independence. Plan: - Physical therapy for gait and balance - Occupational Therapy for ADLs - Speech therapy - As needed analgesics - Bowel protocol - Stroke prevention on ASA, Statin and Lovenox - DVT prophylaxis: SCDs, ASA, Lovenox - MRI brain -> showed small to moderate acute left MCA stroke (left posterior putamen) - MRA head/neck => showed normal carotids - [address] head- was negative for hemorrhage - Acute right hip hematoma- improved - Hx HTN continue home medications, Goal BP < 130/80 mmHg and goal Hba1c <7% - Avoid hypotension - Hx of HLD continue home statin - Hx of depression currently not on any medications, was on a low dose of Paxil as needed => restart Paxil at 20mg daily - Hx of Fibromyalgia currently not on any medications - 30 day event recorder as outpatient. - Fall precautions - Muscle spasms=> Improved with Baclofen 5mg nightly increase to BID titrate up to 10mg BID => decrease to 5mg BID now that she is taking her sleeping pill at night. D/C the morning dose of Baclofen => given how tire she is during her therapy session will change Baclofen to Zanaflex 2mg at bed time, change Knee highs to short thigh highs. - Insomnia => continue patient home sleeping pill - Doxepin 25 mg at bedtime as needed.
[2017-11-26 11:28] VITALS: BMI 28.1
--- NOTE | 2017-11-26 17:27 | PCM.PN.HOSP ---
Patient Problems: Active and Suspected Problems (Last Updated 04/09/17 @ 14:08 by Kendrick Godwin) Stroke (Acute) Subjective: Improving mvmt of RUE and RLE, but still very much limited. Vitals/I&O's: Vital Signs Temp Pulse Resp BP Pulse Ox 36.6 C 72 18 142/64 H 93 11/26/17 07:27 11/26/17 07:27 11/26/17 07:27 11/26/17 07:27 11/26/17 07:27 Oxygen Delivery Method Room Air Weight: 68.8 kg Body Mass Index (BMI) 28.1 Finger Stick Blood Glucose 109 Intake and Output for Last 24 Hours 11/24/17 11/25/17 11/26/17 23:59 23:59 23:59 Intake Total 720 / 720 720 / 720 Balance 720 / 720 720 / 720 General: Alert, Cooperative, No apparent distress HEENT: Atraumatic, Normocephalic Oral: Moist Mucosa, No Gingival or Mucosal Lesions/ Ulcerations Neck: No Nodes, Thyroid Normal Size and Texture Lungs: Clear to auscultation, Normal air movement, No rhonchi, No wheeze Cardiovascular: Regular rate, Regular Rhythm, Normal S1, Normal S2, No murmurs Abdomen: Bowel Sounds Present, Soft, Non Tender, Non-Distended, No Hepato-splenomegaly Extremities: No edema, No Calf Tenderness Skin: No rashes, No breakdown Psych/Mental Status: Normal Affect, Appropriate Current Medications Acetaminophen (Tylenol) 650 mg PO Q6H PRN PRN PRN Reason: Mild Pain (0-3/10)/Headache Last Admin: 11/26/17 10:22 Dose: 650 mg Aspirin (Ecotrin) 81 mg PO DAILY@0800 [facility] Last Admin: 11/26/17 07:29 Dose: 81 mg Atorvastatin Calcium (Lipitor) 40 mg PO QHS [facility] Last Admin: 11/25/17 20:11 Dose: 40 mg Bisacodyl (Dulcolax) 10 mg RECTAL .PRN X 1 PRN PRN Reason: Constipation Chlorthalidone (Hygroton) 25 mg PO DAILY [facility] Last Admin: 11/26/17 07:29 Dose: 25 mg Doxepin HCl (Sinequan) 25 mg PO QHS PRN PRN Reason: SLEEP Last Admin: 11/25/17 20:11 Dose: 25 mg Enoxaparin Sodium (Lovenox) 40 mg SC DAILY@0600 [facility] Last Admin: 11/26/17 05:49 Dose: 40 mg Ergocalciferol (Vitamin D) 50,000 unit PO Q7D [facility] Last Admin: 11/23/17 08:12 Dose: 50,000 unit Loratadine (Claritin) 10 mg PO DAILY PRN PRN Reason: ALLERGIES Last Admin: 11/24/17 15:01 Dose: 10 mg Losartan Potassium (Cozaar) 100 mg PO DAILY [facility] Last Admin: 11/26/17 07:29 Dose: 100 mg Magnesium Hydroxide (Milk Of Magnesia) 30 ml PO .PRN X 1 PRN PRN Reason: Constipation Multivitamins (Multivitamin) 1 tablet PO DAILY@0800 [facility] Last Admin: 11/26/17 07:29 Dose: 1 tablet Pantoprazole Sodium (Protonix) 40 mg PO DAILY PRN PRN Reason: STOMACH DISCOMFORT Paroxetine HCl (Paxil) 20 mg PO DAILY [facility] Last Admin: 11/26/17 07:29 Dose: 20 mg Senna/Docusate Sodium (Senokot-S, Aleah-Colace) 2 tablet PO BID [facility] Last Admin: 11/26/17 07:29 Dose: Not Given Tizanidine HCl (Zanaflex) 2 mg PO 1999 [facility] Last Admin: 11/25/17 20:10 Dose: 2 mg Medical Necessity - Tobacco Use Smoking Status: Never smoker Tobacco Use: Non-smoker Assessment/Plan All Active Problems (Last Updated 04/09/17 @ 14:08 by Kendrick Godwin) Stroke (Acute) Hip hematoma, right (Acute) 1. Left MCA CVA s/p TPA ASA and High-intensity statin (for age) continue therapy neurology f/u as outpt 2. HTN: stable continue Cozaar 3. DVT proph LMWH while in the hospital. can be stopped upon discharge. Code Visit Inpatient E&M: 14815 Subs Hosp L2
--- NOTE | 2017-11-26 17:31 | PN_ITS ---
Patient Problems: Active and Suspected Problems (Last Updated 04/09/17 @ 14:08 by Kendrick Godwin) Stroke (Acute) Subjective: Improving mvmt of RUE and RLE, but still very much limited. Vitals/I&O's: Vital Signs Temp Pulse Resp BP Pulse Ox 36.6 C 72 18 142/64 H 93 11/26/17 07:27 11/26/17 07:27 11/26/17 07:27 11/26/17 07:27 11/26/17 07:27 Oxygen Delivery Method Room Air Weight: 68.8 kg Body Mass Index (BMI) 28.1 Finger Stick Blood Glucose 109 Intake and Output for Last 24 Hours 11/24/17 11/25/17 11/26/17 23:59 23:59 23:59 Intake Total 720 / 720 720 / 720 Balance 720 / 720 720 / 720 General: Alert, Cooperative, No apparent distress HEENT: Atraumatic, Normocephalic Oral: Moist Mucosa, No Gingival or Mucosal Lesions/ Ulcerations Neck: No Nodes, Thyroid Normal Size and Texture Lungs: Clear to auscultation, Normal air movement, No rhonchi, No wheeze Cardiovascular: Regular rate, Regular Rhythm, Normal S1, Normal S2, No murmurs Abdomen: Bowel Sounds Present, Soft, Non Tender, Non-Distended, No Hepato- splenomegaly Extremities: No edema, No Calf Tenderness Skin: No rashes, No breakdown Psych/Mental Status: Normal Affect, Appropriate Current Medications Acetaminophen (Tylenol) 650 mg PO Q6H PRN PRN PRN Reason: Mild Pain (0-3/10)/Headache Last Admin: 11/26/17 10:22 Dose: 650 mg Aspirin (Ecotrin) 81 mg PO DAILY@0800 [facility] Last Admin: 11/26/17 07:29 Dose: 81 mg Atorvastatin Calcium (Lipitor) 40 mg PO QHS [facility] Last Admin: 11/25/17 20:11 Dose: 40 mg Bisacodyl (Dulcolax) 10 mg RECTAL .PRN X 1 PRN PRN Reason: Constipation Chlorthalidone (Hygroton) 25 mg PO DAILY [facility] Last Admin: 11/26/17 07:29 Dose: 25 mg Doxepin HCl (Sinequan) 25 mg PO QHS PRN PRN Reason: SLEEP Last Admin: 11/25/17 20:11 Dose: 25 mg Enoxaparin Sodium (Lovenox) 40 mg SC DAILY@0600 [facility] Last Admin: 11/26/17 05:49 Dose: 40 mg Ergocalciferol (Vitamin D) 50,000 unit PO Q7D [facility] Last Admin: 11/23/17 08:12 Dose: 50,000 unit Loratadine (Claritin) 10 mg PO DAILY PRN PRN Reason: ALLERGIES Last Admin: 11/24/17 15:01 Dose: 10 mg Losartan Potassium (Cozaar) 100 mg PO DAILY [facility] Last Admin: 11/26/17 07:29 Dose: 100 mg Magnesium Hydroxide (Milk Of Magnesia) 30 ml PO .PRN X 1 PRN PRN Reason: Constipation Multivitamins (Multivitamin) 1 tablet PO DAILY@0800 [facility] Last Admin: 11/26/17 07:29 Dose: 1 tablet Pantoprazole Sodium (Protonix) 40 mg PO DAILY PRN PRN Reason: STOMACH DISCOMFORT Paroxetine HCl (Paxil) 20 mg PO DAILY [facility] Last Admin: 11/26/17 07:29 Dose: 20 mg Senna/Docusate Sodium (Senokot-S, Aleah-Colace) 2 tablet PO BID [facility] Last Admin: 11/26/17 07:29 Dose: Not Given Tizanidine HCl (Zanaflex) 2 mg PO 1999 [facility] Last Admin: 11/25/17 20:10 Dose: 2 mg Medical Necessity - Tobacco Use Smoking Status: Never smoker Tobacco Use: Non-smoker Assessment/Plan All Active Problems (Last Updated 04/09/17 @ 14:08 by Kendrick Godwin) Stroke (Acute) Hip hematoma, right (Acute) 1. Left MCA CVA * s/p TPA * ASA and High-intensity statin (for age) * continue therapy * neurology f/u as outpt 2. HTN: stable * continue Cozaar 3. DVT proph * LMWH while in the hospital. can be stopped upon discharge. Code Visit Inpatient E&M: 90305 Subs Hosp L2
[2017-11-26] MEDS: Atorvastatin Calcium 40 MG Tablet PO (21:03)
[2017-11-26] MEDS: tiZANidine HCl 2 MG Tablet PO (21:03)
[2017-11-26 22:00] VITALS: BP 120/65; PULSE 68; RESP 18; TEMP 36.6; O2SAT 95
[2017-11-27 00:18] VITALS: BMI 28.1
--- NOTE | 2017-11-27 03:50 | NURSING ---
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
[2017-11-27] MEDS: Enoxaparin 40 MG/0.4 ML Syringe SC (06:21)
[2017-11-27] MEDS: Chlorthalidone 50 MG Tablet 25 MG PO (08:09)
[2017-11-27] MEDS: Multivitamins,Therapeutic Tablet 1 TABLET PO (08:09)
[2017-11-27] MEDS: Aspirin E.C. 81 MG Tablet PO (08:09)
[2017-11-27] MEDS: Losartan Potassium 100 MG Tablet PO (08:09)
[2017-11-27] MEDS: Acetaminophen 325 MG Tablet 650 MG PO (08:13)
--- NOTE | 2017-11-27 08:26 | NURSING ---
Pt refusing to wear thigh highs today, stated Dr. Sin told her she did not need to wear them. Pt stated to RN if she feels she needs thigh highs she will have staff apply thigh highs later.
[2017-11-27 09:38] VITALS: BP 128/70; PULSE 65; RESP 18; TEMP 36.6; O2SAT 96
[2017-11-27 12:59] VITALS: BMI 28.1
--- NOTE | 2017-11-27 17:02 | PCM.PN.NEU ---
Subjective: Patient seen and examined. Continues to have some muscle spasms, mostly during the day, will add a dose of medication for spasms in the morning. Tolerating therapy. Denies any headaches or blurry vision. - Physical Exam General: Alert, Oriented x3, Cooperative HEENT: Atraumatic, PERRLA, EOMI, Normocephalic Neck: Supple, No JVD, Negative Carotid Bruits Lungs: Clear to auscultation, Normal air movement Cardiovascular: Regular rate, No murmurs Abdomen: Bowel Sounds Present, Soft, Non Tender Extremities: No edema, Capillary Refill Less than 3 Seconds Skin: No rashes, No breakdown Musculoskeletal: No Tenderness to Palpation of Joints or Extremities Neurological: Cranial nerves II-XII grossly intact Psych/Mental Status: Normal Affect, Appropriate, Alert and oriented to time, place, person, mood and affect Vital Signs Temp Pulse Resp BP Pulse Ox 97.9 F 65 18 128/70 H 96 11/27/17 09:38 11/27/17 09:38 11/27/17 09:38 11/27/17 09:38 11/27/17 09:38 Oxygen Delivery Method Room Air Weight: 68.8 kg Body Mass Index (BMI) 28.1 Finger Stick Blood Glucose 109 Intake and Output for Last 24 Hours 11/25/17 11/26/17 11/27/17 23:59 23:59 23:59 Intake Total 720 / 720 Balance 720 / 720 Active Medications Acetaminophen (Tylenol) 650 mg PO Q6H PRN PRN PRN Reason: Mild Pain (0-3/10)/Headache Last Admin: 11/27/17 08:13 Dose: 650 mg Aspirin (Ecotrin) 81 mg PO DAILY@0800 [facility] Last Admin: 11/27/17 08:09 Dose: 81 mg Atorvastatin Calcium (Lipitor) 40 mg PO QHS [facility] Last Admin: 11/26/17 21:03 Dose: 40 mg Bisacodyl (Dulcolax) 10 mg RECTAL .PRN X 1 PRN PRN Reason: Constipation Chlorthalidone (Hygroton) 25 mg PO DAILY [facility] Last Admin: 11/27/17 08:09 Dose: 25 mg Doxepin HCl (Sinequan) 25 mg PO QHS PRN PRN Reason: SLEEP Last Admin: 11/25/17 20:11 Dose: 25 mg Enoxaparin Sodium (Lovenox) 40 mg SC DAILY@0600 [facility] Last Admin: 11/27/17 06:21 Dose: 40 mg Ergocalciferol (Vitamin D) 50,000 unit PO Q7D [facility] Last Admin: 11/23/17 08:12 Dose: 50,000 unit Loratadine (Claritin) 10 mg PO DAILY PRN PRN Reason: ALLERGIES Last Admin: 11/24/17 15:01 Dose: 10 mg Losartan Potassium (Cozaar) 100 mg PO DAILY [facility] Last Admin: 11/27/17 08:09 Dose: 100 mg Magnesium Hydroxide (Milk Of Magnesia) 30 ml PO .PRN X 1 PRN PRN Reason: Constipation Multivitamins (Multivitamin) 1 tablet PO DAILY@0800 [facility] Last Admin: 11/27/17 08:09 Dose: 1 tablet Pantoprazole Sodium (Protonix) 40 mg PO DAILY PRN PRN Reason: STOMACH DISCOMFORT Paroxetine HCl (Paxil) 20 mg PO DAILY [facility] Last Admin: 11/27/17 08:09 Dose: 20 mg Senna/Docusate Sodium (Senokot-S, Aleah-Colace) 2 tablet PO BID [facility] Last Admin: 11/27/17 08:15 Dose: Not Given Tizanidine HCl (Zanaflex) 3 mg PO 1999 [facility] Medical Necessity - Tobacco Use Smoking Status: Never smoker Tobacco Use: Non-smoker Assessment/Plan All Active Problems (Last Updated 04/09/17 @ 14:08 by Kendrick Godwin) Stroke (Acute) Hip hematoma, right (Acute) Debility s/p small to moderate left MCA infarct. Complicated by HTN, HLD. goal of rehab is jainism of functional independence. Plan: - Physical therapy for gait and balance - Occupational Therapy for ADLs - Speech therapy - As needed analgesics - Bowel protocol - Stroke prevention on ASA, Statin and Lovenox - DVT prophylaxis: SCDs, ASA, Lovenox - MRI brain -> showed small to moderate acute left MCA stroke (left posterior putamen) - MRA head/neck => showed normal carotids - [address] head- was negative for hemorrhage - Acute right hip hematoma- improved - Hx HTN continue home medications, Goal BP < 130/80 mmHg and goal Hba1c <7% - Avoid hypotension - Hx of HLD continue home statin - Hx of depression currently not on any medications, was on a low dose of Paxil as needed => restart Paxil at 20mg daily - Hx of Fibromyalgia currently not on any medications - 30 day event recorder as outpatient. - Fall precautions - Muscle spasms=> Improved with Baclofen 5mg nightly increase to BID titrate up to 10mg BID => decrease to 5mg BID now that she is taking her sleeping pill at night. D/C the morning dose of Baclofen => given how tire she is during her therapy session will change Baclofen to Zanaflex 2mg at bed time, change Knee highs to short thigh highs. - Insomnia => continue patient home sleeping pill - Doxepin 25 mg at bedtime as needed.
--- NOTE | 2017-11-27 17:05 | PN.NEURO_ITS ---
Subjective: Patient seen and examined. Continues to have some muscle spasms, mostly during the day, will add a dose of medication for spasms in the morning. Tolerating therapy. Denies any headaches or blurry vision. - Physical Exam General: Alert, Oriented x3, Cooperative HEENT: Atraumatic, PERRLA, EOMI, Normocephalic Neck: Supple, No JVD, Negative Carotid Bruits Lungs: Clear to auscultation, Normal air movement Cardiovascular: Regular rate, No murmurs Abdomen: Bowel Sounds Present, Soft, Non Tender Extremities: No edema, Capillary Refill Less than 3 Seconds Skin: No rashes, No breakdown Musculoskeletal: No Tenderness to Palpation of Joints or Extremities Neurological: Cranial nerves II-XII grossly intact Psych/Mental Status: Normal Affect, Appropriate, Alert and oriented to time, place, person, mood and affect Vital Signs Temp Pulse Resp BP Pulse Ox 97.9 F 65 18 128/70 H 96 11/27/17 09:38 11/27/17 09:38 11/27/17 09:38 11/27/17 09:38 11/27/17 09:38 Oxygen Delivery Method Room Air Weight: 68.8 kg Body Mass Index (BMI) 28.1 Finger Stick Blood Glucose 109 Intake and Output for Last 24 Hours 11/25/17 11/26/17 11/27/17 23:59 23:59 23:59 Intake Total 720 / 720 Balance 720 / 720 Active Medications Acetaminophen (Tylenol) 650 mg PO Q6H PRN PRN PRN Reason: Mild Pain (0-3/10)/Headache Last Admin: 11/27/17 08:13 Dose: 650 mg Aspirin (Ecotrin) 81 mg PO DAILY@0800 [facility] Last Admin: 11/27/17 08:09 Dose: 81 mg Atorvastatin Calcium (Lipitor) 40 mg PO QHS [facility] Last Admin: 11/26/17 21:03 Dose: 40 mg Bisacodyl (Dulcolax) 10 mg RECTAL .PRN X 1 PRN PRN Reason: Constipation Chlorthalidone (Hygroton) 25 mg PO DAILY [facility] Last Admin: 11/27/17 08:09 Dose: 25 mg Doxepin HCl (Sinequan) 25 mg PO QHS PRN PRN Reason: SLEEP Last Admin: 11/25/17 20:11 Dose: 25 mg Enoxaparin Sodium (Lovenox) 40 mg SC DAILY@0600 [facility] Last Admin: 11/27/17 06:21 Dose: 40 mg Ergocalciferol (Vitamin D) 50,000 unit PO Q7D [facility] Last Admin: 11/23/17 08:12 Dose: 50,000 unit Loratadine (Claritin) 10 mg PO DAILY PRN PRN Reason: ALLERGIES Last Admin: 11/24/17 15:01 Dose: 10 mg Losartan Potassium (Cozaar) 100 mg PO DAILY [facility] Last Admin: 11/27/17 08:09 Dose: 100 mg Magnesium Hydroxide (Milk Of Magnesia) 30 ml PO .PRN X 1 PRN PRN Reason: Constipation Multivitamins (Multivitamin) 1 tablet PO DAILY@0800 [facility] Last Admin: 11/27/17 08:09 Dose: 1 tablet Pantoprazole Sodium (Protonix) 40 mg PO DAILY PRN PRN Reason: STOMACH DISCOMFORT Paroxetine HCl (Paxil) 20 mg PO DAILY [facility] Last Admin: 11/27/17 08:09 Dose: 20 mg Senna/Docusate Sodium (Senokot-S, Aleah-Colace) 2 tablet PO BID [facility] Last Admin: 11/27/17 08:15 Dose: Not Given Tizanidine HCl (Zanaflex) 3 mg PO 1999 [facility] Medical Necessity - Tobacco Use Smoking Status: Never smoker Tobacco Use: Non-smoker Assessment/Plan All Active Problems (Last Updated 04/09/17 @ 14:08 by Kendrick Godwin) Stroke (Acute) Hip hematoma, right (Acute) Debility s/p small to moderate left MCA infarct. Complicated by HTN, HLD. goal of rehab is religious of functional independence. Plan: - Physical therapy for gait and balance - Occupational Therapy for ADLs - Speech therapy - As needed analgesics - Bowel protocol - Stroke prevention on ASA, Statin and Lovenox - DVT prophylaxis: SCDs, ASA, Lovenox - MRI brain -> showed small to moderate acute left MCA stroke (left posterior putamen) - MRA head/neck => showed normal carotids - [address] head- was negative for hemorrhage - Acute right hip hematoma- improved - Hx HTN continue home medications, Goal BP < 130/80 mmHg and goal Hba1c <7% - Avoid hypotension - Hx of HLD continue home statin - Hx of depression currently not on any medications, was on a low dose of Paxil as needed => restart Paxil at 20mg daily - Hx of Fibromyalgia currently not on any medications - 30 day event recorder as outpatient. - Fall precautions - Muscle spasms=> Improved with Baclofen 5mg nightly increase to BID titrate up to 10mg BID => decrease to 5mg BID now that she is taking her sleeping pill at night. D/C the morning dose of Baclofen => given how tire she is during her therapy session will change Baclofen to Zanaflex 2mg at bed time, change Knee highs to short thigh highs. - Insomnia => continue patient home sleeping pill - Doxepin 25 mg at bedtime as needed.
[2017-11-27 21:00] VITALS: BP 126/63; PULSE 71; RESP 16; TEMP 36.4; O2SAT 95; BMI 28.1
[2017-11-27] MEDS: Atorvastatin Calcium 40 MG Tablet PO (21:15)
[2017-11-27] MEDS: Doxepin Hcl 25 MG Capsule PO (21:16)
[2017-11-27] MEDS: tiZANidine HCl 2 MG Tablet 3 MG PO (21:16)
[2017-11-28] MEDS: Enoxaparin 40 MG/0.4 ML Syringe SC (06:09)
[2017-11-28 07:03] VITALS: BP 136/66; PULSE 63; RESP 12; TEMP 36.6; O2SAT 97
[2017-11-28] MEDS: Aspirin E.C. 81 MG Tablet PO (08:43)
[2017-11-28] MEDS: Chlorthalidone 50 MG Tablet 25 MG PO (08:43)
[2017-11-28] MEDS: Multivitamins,Therapeutic Tablet 1 TABLET PO (08:43)
[2017-11-28] MEDS: Losartan Potassium 100 MG Tablet PO (08:43)
--- NOTE | 2017-11-28 10:44 | PN.NEURO_ITS ---
Subjective: Patient seen and examined. No new complaints. Tolerating therapy. No new focal deficits noted. Denies any blurry vision, double vision, or headaches. - Physical Exam General: Alert, Oriented x3, Cooperative HEENT: Atraumatic, PERRLA, EOMI, Normocephalic Neck: Supple, No JVD, Negative Carotid Bruits Lungs: Clear to auscultation, Normal air movement Cardiovascular: Regular rate, No murmurs Abdomen: Bowel Sounds Present, Soft, Non Tender Extremities: No edema, Capillary Refill Less than 3 Seconds Skin: No rashes, No breakdown Musculoskeletal: No Tenderness to Palpation of Joints or Extremities Neurological: Cranial nerves II-XII grossly intact Psych/Mental Status: Normal Affect, Appropriate Vital Signs Temp Pulse Resp BP Pulse Ox 98 F 63 12 136/66 H 97 11/28/17 07:03 11/28/17 07:03 11/28/17 07:03 11/28/17 07:03 11/28/17 07:03 Oxygen Delivery Method Room Air Weight: 68.8 kg Body Mass Index (BMI) 28.1 Finger Stick Blood Glucose 109 Intake and Output for Last 24 Hours 11/26/17 11/27/17 11/28/17 23:59 23:59 23:59 Intake Total 720 / 720 Balance 720 / 720 Medical Necessity - Tobacco Use Smoking Status: Never smoker Tobacco Use: Non-smoker Assessment/Plan All Active Problems (Last Updated 04/09/17 @ 14:08 by Kendrick Godwin) Stroke (Acute) Hip hematoma, right (Acute) Debility s/p small to moderate left MCA infarct. Complicated by HTN, HLD. goal of rehab is adventism of functional independence. Plan: - Physical therapy for gait and balance - Occupational Therapy for ADLs - Speech therapy - As needed analgesics - Bowel protocol - Stroke prevention on ASA, Statin and Lovenox - DVT prophylaxis: SCDs, ASA, Lovenox - MRI brain -> showed small to moderate acute left MCA stroke (left posterior putamen) - MRA head/neck => showed normal carotids - [address] head- was negative for hemorrhage - Acute right hip hematoma- improved - Hx HTN continue home medications, Goal BP < 130/80 mmHg and goal Hba1c <7% - Avoid hypotension - Hx of HLD continue home statin - Hx of depression currently not on any medications, was on a low dose of Paxil as needed => restart Paxil at 20mg daily - Hx of Fibromyalgia currently not on any medications - 30 day event recorder as outpatient. - Fall precautions - Muscle spasms=> Improved with Baclofen 5mg nightly increase to BID titrate up to 10mg BID => decrease to 5mg BID now that she is taking her sleeping pill at night. D/C the morning dose of Baclofen => given how tire she is during her therapy session will change Baclofen to Zanaflex 2mg at bed time, change Knee highs to short thigh highs. - Insomnia => continue patient home sleeping pill - Doxepin 25 mg at bedtime as needed.
[2017-11-28 11:21] VITALS: BMI 28.1
[2017-11-28] MEDS: tiZANidine HCl 2 MG Tablet 3 MG PO (20:29)
[2017-11-28 20:30] VITALS: BP 128/70; PULSE 73; RESP 14; TEMP 36.8; O2SAT 95; BMI 28.1
[2017-11-28] MEDS: Atorvastatin Calcium 40 MG Tablet PO (20:30)
[2017-11-28] MEDS: Acetaminophen 325 MG Tablet 650 MG PO (23:38)
--- NOTE | 2017-11-29 04:44 | NURSING ---
Reviewed and agree with INVENTORY CONTROL ANALYST documentation and FIMS charting.
[2017-11-29] MEDS: Enoxaparin 40 MG/0.4 ML Syringe SC (05:55)
[2017-11-29] MEDS: Acetaminophen 325 MG Tablet 650 MG PO (05:56)
[2017-11-29] MEDS: Aspirin E.C. 81 MG Tablet PO (08:12)
[2017-11-29] MEDS: Multivitamins,Therapeutic Tablet 1 TABLET PO (08:12)
[2017-11-29] MEDS: Losartan Potassium 100 MG Tablet PO (08:12)
[2017-11-29] MEDS: Chlorthalidone 50 MG Tablet 25 MG PO (08:12)
[2017-11-29 09:19] VITALS: BP 136/66; PULSE 80; RESP 16; TEMP 36.4; O2SAT 93
--- NOTE | 2017-11-29 09:50 | CASEMGMT ---
Team meeting held. Patient present as well as patient family. Patient discharge date set for 12/02/17. Patient plans to discharge to home with spouse. Patient reporting to have all needed durable medical equipment already set up within the home. Physical and Occupational therapy are recommending for patient to continue with services through outpatient care. Patient is agreeable to recommendation and requesting for outpatient therapy to be set up through [facility]. Patient aware that order will be faxed to [facility] and then [facility] will contact patient to set up appointment time/date. Patient spouse plans to provide transportation home for patient at time of discharge. No further needs voiced at this time. Support given. Order faxed to [facility]. Proposed discharge date: 12/02/17 PLAN: Discharge to home with spouse and outpatient therapy services. Bonita MOSELEY, TERRAZZO HELPER
--- NOTE | 2017-11-29 11:04 | PN.NEURO_ITS ---
Subjective: Staffed in Team meeting. Family at bedside, questions answered. With Physical therapy, she is walking about 50 to 75 feet using a wheel walker with just a light hand. she has walked up 7 steps with a light hand for balance. With Occupational therapy, with lower body dressing she is able to dress herself with minimal assistance, for bathing she is stand by assist. With toileting, the amount of assistance required varies from her being able to do everything herself to requiring minimal assist with hygiene. With Nursing, still having muscle spasms at night was switch to Zanaflex at night. Will increase dosage and see if this brings additional relief. The plan is for Share care over the next few days, with discharge home on Sunday if all goes well. Will arrange for a 30 day event monitor and outpatient Physical therapy and Occupational therapy. - Physical Exam General: Alert, Oriented x3, Cooperative HEENT: Atraumatic, PERRLA, EOMI, Normocephalic Neck: Supple, No JVD, Negative Carotid Bruits Lungs: Clear to auscultation, Normal air movement Cardiovascular: Regular rate, No murmurs Abdomen: Bowel Sounds Present, Soft, Non Tender Extremities: No edema, Capillary Refill Less than 3 Seconds Skin: No rashes, No breakdown Musculoskeletal: No Tenderness to Palpation of Joints or Extremities Neurological: Cranial nerves II-XII grossly intact Psych/Mental Status: Normal Affect, Appropriate, Alert and oriented to time, place, person, mood and affect Vital Signs Temp Pulse Resp BP Pulse Ox 97.6 F L 80 16 136/66 H 93 11/29/17 09:19 11/29/17 09:19 11/29/17 09:19 11/29/17 09:19 11/29/17 09:19 Oxygen Delivery Method Room Air Weight: 68.946 kg Body Mass Index (BMI) 28.1 Finger Stick Blood Glucose 109 Intake and Output for Last 24 Hours 11/27/17 11/28/17 11/29/17 23:59 23:59 23:59 Intake Total 240 / 240 Balance 240 / 240 Active Medications Acetaminophen (Tylenol) 650 mg PO Q6H PRN PRN PRN Reason: Mild Pain (0-3/10)/Headache Last Admin: 11/29/17 05:56 Dose: 650 mg Aspirin (Ecotrin) 81 mg PO DAILY@0800 [facility] Last Admin: 11/29/17 08:12 Dose: 81 mg Atorvastatin Calcium (Lipitor) 40 mg PO QHS [facility] Last Admin: 11/28/17 20:30 Dose: 40 mg Bisacodyl (Dulcolax) 10 mg RECTAL .PRN X 1 PRN PRN Reason: Constipation Chlorthalidone (Hygroton) 25 mg PO DAILY [facility] Last Admin: 11/29/17 08:12 Dose: 25 mg Doxepin HCl (Sinequan) 25 mg PO QHS PRN PRN Reason: SLEEP Last Admin: 11/27/17 21:16 Dose: 25 mg Enoxaparin Sodium (Lovenox) 40 mg SC DAILY@0600 [facility] Last Admin: 11/29/17 05:55 Dose: 40 mg Ergocalciferol (Vitamin D) 50,000 unit PO Q7D [facility] Last Admin: 11/23/17 08:12 Dose: 50,000 unit Loratadine (Claritin) 10 mg PO DAILY PRN PRN Reason: ALLERGIES Last Admin: 11/24/17 15:01 Dose: 10 mg Losartan Potassium (Cozaar) 100 mg PO DAILY [facility] Last Admin: 11/29/17 08:12 Dose: 100 mg Magnesium Hydroxide (Milk Of Magnesia) 30 ml PO .PRN X 1 PRN PRN Reason: Constipation Multivitamins (Multivitamin) 1 tablet PO DAILY@0800 [facility] Last Admin: 11/29/17 08:12 Dose: 1 tablet Pantoprazole Sodium (Protonix) 40 mg PO DAILY PRN PRN Reason: STOMACH DISCOMFORT Paroxetine HCl (Paxil) 20 mg PO DAILY [facility] Last Admin: 11/29/17 08:13 Dose: 20 mg Tizanidine HCl (Zanaflex) 4 mg PO 1999 [facility] Medical Necessity - Tobacco Use Smoking Status: Never smoker Tobacco Use: Non-smoker Assessment/Plan All Active Problems (Last Updated 04/09/17 @ 14:08 by Kendrick Godwin) Stroke (Acute) Hip hematoma, right (Acute) Debility s/p small to moderate left MCA infarct. Complicated by HTN, HLD. goal of rehab is buddhist of functional independence. Plan: - Physical therapy for gait and balance - Occupational Therapy for ADLs - Speech therapy - As needed analgesics - Bowel protocol - Stroke prevention on ASA, Statin and Lovenox - DVT prophylaxis: SCDs, ASA, Lovenox - MRI brain -> showed small to moderate acute left MCA stroke (left posterior putamen) - MRA head/neck => showed normal carotids - [address] head- was negative for hemorrhage - Acute right hip hematoma- improved - Hx HTN continue home medications, Goal BP < 130/80 mmHg and goal Hba1c <7% - Avoid hypotension - Hx of HLD continue home statin - Hx of depression currently not on any medications, was on a low dose of Paxil as needed => restart Paxil at 20mg daily - Hx of Fibromyalgia currently not on any medications - 30 day event recorder as outpatient. - Fall precautions - Muscle spasms=> Improved with Baclofen 5mg nightly increase to BID titrate up to 10mg BID => decrease to 5mg BID now that she is taking her sleeping pill at night. D/C the morning dose of Baclofen => given how tire she is during her therapy session will change Baclofen to Zanaflex 2mg at bed time, change Knee highs to short thigh highs. - Insomnia => continue patient home sleeping pill - Doxepin 25 mg at bedtime as needed. - Plan is shared care next few days, and discharge home on sunday with outpatient Physical therapy and Occupational therapy. Will also arrange for 30 day event monitor.
[2017-11-29 13:58] VITALS: BMI 28.1
[2017-11-29 19:54] VITALS: BP 153/87; PULSE 82; RESP 16; TEMP 36.8; O2SAT 96
[2017-11-29 20:00] VITALS: PULSE 82; RESP 16; O2SAT 96; BMI 28.1
[2017-11-29] MEDS: tiZANidine HCl 2 MG Tablet 4 MG PO (20:37)
[2017-11-29] MEDS: Atorvastatin Calcium 40 MG Tablet PO (20:37)
--- NOTE | 2017-11-30 03:42 | NURSING ---
Reviewed and agree with [facility] [employer] documentation and [facility]IMs charting.
[2017-11-30] MEDS: Enoxaparin 40 MG/0.4 ML Syringe SC (06:11)
[2017-11-30] MEDS: Multivitamins,Therapeutic Tablet 1 TABLET PO (08:45)
[2017-11-30] MEDS: Chlorthalidone 50 MG Tablet 25 MG PO (08:45)
[2017-11-30] MEDS: Losartan Potassium 100 MG Tablet PO (08:45)
[2017-11-30] MEDS: Aspirin E.C. 81 MG Tablet PO (08:45)
[2017-11-30] MEDS: Acetaminophen 325 MG Tablet 650 MG PO (08:47)
[2017-11-30 08:53] VITALS: BP 133/75; PULSE 63; RESP 16; TEMP 36.6; O2SAT 97
--- NOTE | 2017-11-30 16:50 | PCM.RU.DC ---
Rehab Discharge Summary DATE OF ADMISSION: 11/08/17 DATE OF DISCHARGE: 12/02/17 - Physical Exam General: Alert, Oriented x3, Cooperative HEENT: Atraumatic, PERRLA, EOMI, Normocephalic Neck: Supple, No JVD, Negative Carotid Bruits Lungs: Clear to auscultation, Normal air movement Cardiovascular: Regular rate, No murmurs Abdomen: Bowel Sounds Present, Soft, Non Tender Extremities: No edema, Capillary Refill Less than 3 Seconds Skin: No rashes, No breakdown Musculoskeletal: No Tenderness to Palpation of Joints or Extremities Neurological: Cranial nerves II-XII grossly intact Psych/Mental Status: Normal Affect, Appropriate, Alert and oriented to time, place, person, mood and affect Vital Signs Temp Pulse Resp BP Pulse Ox 97.9 F 63 16 133/75 H 97 11/30/17 08:53 11/30/17 08:53 11/30/17 08:53 11/30/17 08:53 11/30/17 08:53 Oxygen Delivery Method Room Air Weight: 68.946 kg Body Mass Index (BMI) 28.1 Finger Stick Blood Glucose 109 Intake and Output for Last 24 Hours 11/28/17 11/29/17 11/30/17 23:59 23:59 23:59 Intake Total 240 / 240 600 / 600 Balance 240 / 240 600 / 600 Active Medications Acetaminophen (Tylenol) 650 mg PO Q6H PRN PRN PRN Reason: Mild Pain (0-3/10)/Headache Last Admin: 11/30/17 08:47 Dose: 650 mg Aspirin (Ecotrin) 81 mg PO DAILY@0800 [facility] Last Admin: 11/30/17 08:45 Dose: 81 mg Atorvastatin Calcium (Lipitor) 40 mg PO QHS [facility] Last Admin: 11/29/17 20:37 Dose: 40 mg Bisacodyl (Dulcolax) 10 mg RECTAL .PRN X 1 PRN PRN Reason: Constipation Chlorthalidone (Hygroton) 25 mg PO DAILY [facility] Last Admin: 11/30/17 08:45 Dose: 25 mg Doxepin HCl (Sinequan) 25 mg PO QHS PRN PRN Reason: SLEEP Last Admin: 11/27/17 21:16 Dose: 25 mg Enoxaparin Sodium (Lovenox) 40 mg SC DAILY@0600 [facility] Last Admin: 11/30/17 06:11 Dose: 40 mg Ergocalciferol (Vitamin D) 50,000 unit PO Q7D [facility] Last Admin: 11/30/17 08:46 Dose: 50,000 unit Loratadine (Claritin) 10 mg PO DAILY PRN PRN Reason: ALLERGIES Last Admin: 11/24/17 15:01 Dose: 10 mg Losartan Potassium (Cozaar) 100 mg PO DAILY [facility] Last Admin: 11/30/17 08:45 Dose: 100 mg Magnesium Hydroxide (Milk Of Magnesia) 30 ml PO .PRN X 1 PRN PRN Reason: Constipation Multivitamins (Multivitamin) 1 tablet PO DAILY@0800 [facility] Last Admin: 11/30/17 08:45 Dose: 1 tablet Pantoprazole Sodium (Protonix) 40 mg PO DAILY PRN PRN Reason: STOMACH DISCOMFORT Paroxetine HCl (Paxil) 20 mg PO DAILY [facility] Last Admin: 11/30/17 08:46 Dose: 20 mg Tizanidine HCl (Zanaflex) 4 mg PO 1999 [facility] Last Admin: 11/29/17 20:37 Dose: 4 mg Discharge Diet: No Restrictions Discharge Activity: May Not Drive, May not drive while taking narcotic pain medications., May Not Shower, May Take a Tub Bath, Use Walker Weight Bearing Status: Weight bearing as tolerated Call your doctor if you observe: Fever of 101 or Higher, Coldness, Increased Pain, Numbness or Tingling, Change in Color, Inability to urinate, Inability to have a bowel movement, Using more than one pad per hour, Shortness of breath, Dizziness, Fainting spells, Swelling in the ankles, Chest pain, Prolonged hiccoughing, Increased palpitations (irregular heartbeat), Calf discomfort, Uncontrolled pain Home Medications: Medications to take at Discharge dexlansoprazole 60 mg capsule,biphase delayed release 60 mg PO PRN PRN 04/09/17 Multivitamin [Daily Multiple Vitamin] 1 each PO DAILY 04/24/17 Aspirin E.C. [Ecotrin] 81 mg PO DAILY@0800 11/05/17 Chlorthalidone 25 mg PO DAILY 11/05/17 Atorvastatin Calcium [Lipitor] 40 mg PO QHS 11/08/17 Acetaminophen [Tylenol Tablet] 650 mg PO Q6H PRN PRN tablet 11/30/17 Cholecalciferol (Vitamin D3) [Vitamin D3] 50,000 unit PO MONTHLY #6 cap 11/30/17 Doxepin HCl [Sinequan] 25 mg PO QHS PRN capsule 11/30/17 Loratadine [Claritin] 10 mg PO DAILY PRN tablet 11/30/17 Losartan Potassium [Cozaar] 100 mg PO DAILY #30 tablet 11/30/17 Paroxetine HCl [Paxil] 20 mg PO DAILY #30 tablet 11/30/17 Tizanidine HCl [Zanaflex] 4 mg PO 2000 #30 tablet 11/30/17 Following Prescrptions Were Given to Patient: Cholecalciferol (Vitamin D3) [Vitamin D3] 50,000 unit PO MONTHLY #6 cap Losartan Potassium [Cozaar] 100 mg PO DAILY #30 tablet Paroxetine HCl [Paxil] 20 mg PO DAILY #30 tablet Tizanidine HCl [Zanaflex] 4 mg PO 2000 #30 tablet Primary Care Physician: Brandon March Chi, MD [Primary Care Provider] - Please Follow Up With: [facility] - Physical and Occupational Therapy Please Follow Up With: Fallon England NP When: Sunday Please Follow Up With: Dr. March When: Sunday Disposition: Home - with outpatient PT/OT Minutes spent on discharge:: 40 Patient Condition:: Good Rehab Course The patient is a 77 year old right handed female who was admitted to the rehab unit for rehabilitation after suffering a small to moderate left MCA infarct. She has a PMH of HTN, HLD she was admitted with acute onset right sided weakness, slurred speech and facial droop, she also had right sided sensory loss on admission. On admission NIHSS was 4-5 per ED documentation. She was a tPA candidate and received a bolus treatment, with some improvement noted. CT head done on admission reported nothing acute. CTA head did not show any high grade stenosis but CTA neck not ordered by ED. MRI brain done on admission showed small to moderate acute left MCA stroke (left posterior putamen). Right sided weakness is improving she is able to raise her right arm and wiggle her fore finger and middle finger. Speech is clear and is back to base line per patient. On admission she was found to have a right upper thigh /hip hematoma, which is improving, per patient she hit her hip when she was shifted to wheel chair from the car prior to coming to the ED. She lives with her spouse, in a 2 story home with her bedroom on the second floor, she has about 12 to 13 steps to get to her bedroom. To get into the home there is 3 steps thru the back door to get into the house. She was on a baby ASA every other day. She was able to do all her on ADLs, she did not require an assistive device at baseline to ambulate. She was previously completely functionally independent and is admitted to the rehab unit in order to restore her previous level of functional independence. Per admission H&P: The patient is a 77 year old female patient presents to the ER with acute stroke symptoms. She was exercising at the [facility] at 7:00 pm this evening at the time of onset. She was walking the track and then using the rowing machine. She had to sit down on a bench there as her right leg started to become weak along with some dizziness. She managed to get to her car with her spouse and went home to watch the football game on TV. She quickly realized at home that her right leg was getting weaker and now her right arm was becoming weaker along with slurring of speech and right facial droop. Stroke team was called in the ER and decision to initiate tPA was made and she received a bolus treatment with some temporary improvement in symptoms. She was briefly able to move her right arm off of the bed and left her right leg normally. This quickly went away and is now suffering from right side hemiplegia. CTA showed no severe stenosis therefore decision was made to keep her in the ICU here. Summary of care: Debility s/p small to moderate left MCA infarct. Complicated by HTN, HLD. goal of rehab is episcopal of functional independence. Plan: - Physical therapy for gait and balance - Occupational Therapy for ADLs - Speech therapy - As needed analgesics - Bowel protocol - Stroke prevention on ASA, Statin and Lovenox - DVT prophylaxis: SCDs, ASA, Lovenox - MRI brain -> showed small to moderate acute left MCA stroke (left posterior putamen) - MRA head/neck => showed normal carotids - [address] head- was negative for hemorrhage - Acute right hip hematoma- improved - Hx HTN continue home medications, Goal BP < 130/80 mmHg and goal Hba1c <7% - Avoid hypotension - Hx of HLD continue home statin - Hx of depression currently not on any medications, was on a low dose of Paxil as needed => restart Paxil at 20mg daily - Hx of Fibromyalgia currently not on any medications - 30 day event recorder as outpatient. - Fall precautions - Muscle spasms=> Improved with Baclofen 5mg nightly increase to BID titrate up to 10mg BID => decrease to 5mg BID now that she is taking her sleeping pill at night. D/C the morning dose of Baclofen => given how tire she is during her therapy session will change Baclofen to Zanaflex 2mg at bed time, change Knee highs to short thigh highs. Increase Zanaflex to 4mg at HS, d/c Matt hoses per patients request. - Insomnia => continue patient home sleeping pill - Doxepin 25 mg at bedtime as needed. - Plan is shared care next few days, and discharge home on Sunday with outpatient Physical therapy and Occupational therapy. Will also arrange for 30 day event monitor. With Physical therapy, she is walking about 50 to 75 feet using a wheel walker with just a light hand. she has walked up 7 steps with a light hand for balance. With Occupational therapy, with lower body dressing she is able to dress herself with minimal assistance, for bathing she is stand by assist. With toileting, the amount of assistance required varies from her being able to do everything herself to requiring minimal assist with hygiene. Share care was condition three days prior to discharge home. Discharge home is planned for Sunday. Will arrange for a 30 day event monitor and outpatient Physical therapy and Occupational therapy. While in the Rehab Unit (RU) her other medical conditions were monitored. While in the RU he/she improved with therapy and gained strength. The remainder of her care was uncomplicated and she was able to be discharged home to complete the remainder of her care as an outpatient. Meaningful Use Info Meaningful Use Diagnoses (Choose all that apply): Ischemic CVA - CVA Therapy Assessed for PT,OT and/or ST?: Yes - Ischemic Stroke Antithrombotic order at d/c?: Yes Dx of Atrial fib/flutter?: No Statins at discharge?: Yes Primary Dx Acute Ischemic CVA?: Yes IV tPA ordered during stay?: Yes
--- NOTE | 2017-11-30 16:53 | DS.PCM_ITS ---
Rehab Discharge Summary DATE OF ADMISSION: 11/08/17 DATE OF DISCHARGE: 12/02/17 - Physical Exam General: Alert, Oriented x3, Cooperative HEENT: Atraumatic, PERRLA, EOMI, Normocephalic Neck: Supple, No JVD, Negative Carotid Bruits Lungs: Clear to auscultation, Normal air movement Cardiovascular: Regular rate, No murmurs Abdomen: Bowel Sounds Present, Soft, Non Tender Extremities: No edema, Capillary Refill Less than 3 Seconds Skin: No rashes, No breakdown Musculoskeletal: No Tenderness to Palpation of Joints or Extremities Neurological: Cranial nerves II-XII grossly intact Psych/Mental Status: Normal Affect, Appropriate, Alert and oriented to time, place, person, mood and affect Vital Signs Temp Pulse Resp BP Pulse Ox 97.9 F 63 16 133/75 H 97 11/30/17 08:53 11/30/17 08:53 11/30/17 08:53 11/30/17 08:53 11/30/17 08:53 Oxygen Delivery Method Room Air Weight: 68.946 kg Body Mass Index (BMI) 28.1 Finger Stick Blood Glucose 109 Intake and Output for Last 24 Hours 11/28/17 11/29/17 11/30/17 23:59 23:59 23:59 Intake Total 240 / 240 600 / 600 Balance 240 / 240 600 / 600 Active Medications Acetaminophen (Tylenol) 650 mg PO Q6H PRN PRN PRN Reason: Mild Pain (0-3/10)/Headache Last Admin: 11/30/17 08:47 Dose: 650 mg Aspirin (Ecotrin) 81 mg PO DAILY@0800 [facility] Last Admin: 11/30/17 08:45 Dose: 81 mg Atorvastatin Calcium (Lipitor) 40 mg PO QHS [facility] Last Admin: 11/29/17 20:37 Dose: 40 mg Bisacodyl (Dulcolax) 10 mg RECTAL .PRN X 1 PRN PRN Reason: Constipation Chlorthalidone (Hygroton) 25 mg PO DAILY [facility] Last Admin: 11/30/17 08:45 Dose: 25 mg Doxepin HCl (Sinequan) 25 mg PO QHS PRN PRN Reason: SLEEP Last Admin: 11/27/17 21:16 Dose: 25 mg Enoxaparin Sodium (Lovenox) 40 mg SC DAILY@0600 [facility] Last Admin: 11/30/17 06:11 Dose: 40 mg Ergocalciferol (Vitamin D) 50,000 unit PO Q7D [facility] Last Admin: 11/30/17 08:46 Dose: 50,000 unit Loratadine (Claritin) 10 mg PO DAILY PRN PRN Reason: ALLERGIES Last Admin: 11/24/17 15:01 Dose: 10 mg Losartan Potassium (Cozaar) 100 mg PO DAILY [facility] Last Admin: 11/30/17 08:45 Dose: 100 mg Magnesium Hydroxide (Milk Of Magnesia) 30 ml PO .PRN X 1 PRN PRN Reason: Constipation Multivitamins (Multivitamin) 1 tablet PO DAILY@0800 [facility] Last Admin: 11/30/17 08:45 Dose: 1 tablet Pantoprazole Sodium (Protonix) 40 mg PO DAILY PRN PRN Reason: STOMACH DISCOMFORT Paroxetine HCl (Paxil) 20 mg PO DAILY [facility] Last Admin: 11/30/17 08:46 Dose: 20 mg Tizanidine HCl (Zanaflex) 4 mg PO 1999 [facility] Last Admin: 11/29/17 20:37 Dose: 4 mg Discharge Diet: No Restrictions Discharge Activity: May Not Drive, May not drive while taking narcotic pain medications., May Not Shower, May Take a Tub Bath, Use Walker Weight Bearing Status: Weight bearing as tolerated Call your doctor if you observe: Fever of 101 or Higher, Coldness, Increased Pain, Numbness or Tingling, Change in Color, Inability to urinate, Inability to have a bowel movement, Using more than one pad per hour, Shortness of breath, Dizziness, Fainting spells, Swelling in the ankles, Chest pain, Prolonged hiccoughing, Increased palpitations (irregular heartbeat), Calf discomfort, Uncontrolled pain Home Medications: Medications to take at Discharge dexlansoprazole 60 mg capsule,biphase delayed release 60 mg PO PRN PRN 04/09/17 Multivitamin [Daily Multiple Vitamin] 1 each PO DAILY 04/24/17 Aspirin E.C. [Ecotrin] 81 mg PO DAILY@0800 11/05/17 Chlorthalidone 25 mg PO DAILY 11/05/17 Atorvastatin Calcium [Lipitor] 40 mg PO QHS 11/08/17 Acetaminophen [Tylenol Tablet] 650 mg PO Q6H PRN PRN tablet 11/30/17 Cholecalciferol (Vitamin D3) [Vitamin D3] 50,000 unit PO MONTHLY #6 cap 11/30/17 Doxepin HCl [Sinequan] 25 mg PO QHS PRN capsule 11/30/17 Loratadine [Claritin] 10 mg PO DAILY PRN tablet 11/30/17 Losartan Potassium [Cozaar] 100 mg PO DAILY #30 tablet 11/30/17 Paroxetine HCl [Paxil] 20 mg PO DAILY #30 tablet 11/30/17 Tizanidine HCl [Zanaflex] 4 mg PO 2000 #30 tablet 11/30/17 Following Prescrptions Were Given to Patient: Cholecalciferol (Vitamin D3) [Vitamin D3] 50,000 unit PO MONTHLY #6 cap Losartan Potassium [Cozaar] 100 mg PO DAILY #30 tablet Paroxetine HCl [Paxil] 20 mg PO DAILY #30 tablet Tizanidine HCl [Zanaflex] 4 mg PO 2000 #30 tablet Primary Care Physician: Brandon March Chi, MD [Primary Care Provider] - Please Follow Up With: [facility] - Physical [facility] Occupational Therapy Please Follow Up With: Fallon England NP When: Sunday Please Follow Up With: Dr. March When: Sunday Disposition: Home - with outpatient PT/OT Minutes spent on discharge:: 40 Patient Condition:: Good Rehab Course The patient is a 77 year old right handed female who was admitted to the rehab unit for rehabilitation after suffering a small to moderate left MCA infarct. She has a PMH of HTN, HLD she was admitted with acute onset right sided weakness, slurred speech and facial droop, she also had right sided sensory loss on admission. On admission NIHSS was 4-5 per ED documentation. She was a tPA candidate and received a bolus treatment, with some improvement noted. CT head done on admission reported nothing acute. CTA head did not show any high grade stenosis but CTA neck not ordered by ED. MRI brain done on admission showed small to moderate acute left MCA stroke (left posterior putamen). Right sided weakness is improving she is able to raise her right arm and wiggle her fore finger and middle finger. Speech is clear and is back to base line per patient. On admission she was found to have a right upper thigh /hip hematoma, which is improving, per patient she hit her hip when she was shifted to wheel chair from the car prior to coming to the ED. She lives with her spouse, in a 2 story home with her bedroom on the second floor, she has about 12 to 13 steps to get to her bedroom. To get into the home there is 3 steps thru the back door to get into the house. She was on a baby ASA every other day. She was able to do all her on ADLs, she did not require an assistive device at baseline to ambulate. She was previously completely functionally independent and is admitted to the rehab unit in order to restore her previous level of functional independence. Per admission H&P: The patient is a 77 year old female patient presents to the ER with acute stroke symptoms. She was exercising at the [facility] at 7:00 pm this evening at the time of onset. She was walking the track and then using the rowing machine. She had to sit down on a bench there as her right leg started to become weak along with some dizziness. She managed to get to her car with her spouse and went home to watch the football game on TV. She quickly realized at home that her right leg was getting weaker and now her right arm was becoming weaker along with slurring of speech and right facial droop. Stroke team was called in the ER and decision to initiate tPA was made and she received a bolus treatment with some temporary improvement in symptoms. She was briefly able to move her right arm off of the bed and left her right leg normally. This quickly went away and is now suffering from right side hemiplegia. CTA showed no severe stenosis therefore decision was made to keep her in the ICU here. Summary of care: Debility s/p small to moderate left MCA infarct. Complicated by HTN, HLD. goal of rehab is orthodox of functional independence. Plan: - Physical therapy for gait and balance - Occupational Therapy for ADLs - Speech therapy - As needed analgesics - Bowel protocol - Stroke prevention on ASA, Statin and Lovenox - DVT prophylaxis: SCDs, ASA, Lovenox - MRI brain -> showed small to moderate acute left MCA stroke (left posterior putamen) - MRA head/neck => showed normal carotids - [address] head- was negative for hemorrhage - Acute right hip hematoma- improved - Hx HTN continue home medications, Goal BP < 130/80 mmHg and goal Hba1c <7% - Avoid hypotension - Hx of HLD continue home statin - Hx of depression currently not on any medications, was on a low dose of Paxil as needed => restart Paxil at 20mg daily - Hx of Fibromyalgia currently not on any medications - 30 day event recorder as outpatient. - Fall precautions - Muscle spasms=> Improved with Baclofen 5mg nightly increase to BID titrate up to 10mg BID => decrease to 5mg BID now that she is taking her sleeping pill at night. D/C the morning dose of Baclofen => given how tire she is during her therapy session will change Baclofen to Zanaflex 2mg at bed time, change Knee highs to short thigh highs. Increase Zanaflex to 4mg at HS, d/c Matt hoses per patients request. - Insomnia => continue patient home sleeping pill - Doxepin 25 mg at bedtime as needed. - Plan is shared care next few days, and discharge home on Sunday with outpati ent Physical therapy and Occupational therapy. Will also arrange for 30 day event monitor. With Physical therapy, she is walking about 50 to 75 feet using a wheel walker with just a light hand. she has walked up 7 steps with a light hand for balance. With Occupational therapy, with lower body dressing she is able to dress herself with minimal assistance, for bathing she is stand by assist. With toileting, the amount of assistance required varies from her being able to do everything herself to requiring minimal assist with hygiene. Share care was condition three days prior to discharge home. Discharge home is planned for Sunday. Will arrange for a 30 day event monitor and outpatient Physical therapy and Occupational therapy. While in the Rehab Unit (RU) her other medical conditions were monitored. While in the RU he/she improved with therapy and gained strength. The remainder of her care was uncomplicated and she was able to be discharged home to complete the remainder of her care as an outpatient. Meaningful Use Info Meaningful Use Diagnoses (Choose all that apply): Ischemic CVA - CVA Therapy Assessed for PT,OT and/or ST?: Yes - Ischemic Stroke Antithrombotic order at d/c?: Yes Dx of Atrial fib/flutter?: No Statins at discharge?: Yes Primary Dx Acute Ischemic CVA?: Yes IV tPA ordered during stay?: Yes
[2017-11-30 17:00] VITALS: BMI 28.1
--- NOTE | 2017-11-30 17:05 | DCINST_ITS ---
- Discharge Diagnoses Reason(s) for Visit for Discharge Instructions: CVA You will use the following diet at home:: Cardiac, Other - low cholesterol Your food should be the consistency of: Regular Your liquids should be the consistency of: Regular/Thin Discharge Activity: May Not Drive, May not drive while taking narcotic pain medications., May Not Shower, May Take a Tub Bath, Use Walker Weight Bearing Status: Weight bearing as tolerated Call your doctor if you observe: Fever of 101 or Higher, Coldness, Increased Pain, Numbness or Tingling, Change in Color, Inability to urinate, Inability to have a bowel movement, Using more than one pad per hour, Shortness of breath, Dizziness, Fainting spells, Swelling in the ankles, Chest pain, Prolonged hiccoughing, Increased palpitations (irregular heartbeat), Calf discomfort, Uncontrolled pain Allergies/Adverse Reactions: Allergies adhesive tape Allergy (Verified 11/05/17 20:56) Other BLISTERS valsartan Allergy (Verified 06/18/17 09:21) Rash amlodipine Adverse Reaction (Verified 06/18/17 09:21) Other DIZZY, SHAKES enalaprilat [From Vasotec] Adverse Reaction (Verified 06/18/17 09:21) Other DRY COUGH minoxidil Adverse Reaction (Verified 06/18/17 09:21) Other SWELLING ANKLES, HANDS SHAKE risedronate sodium [From Actonel] Adverse Reaction (Verified 06/18/17 09:21) Other Medications to take at Discharge dexlansoprazole 60 mg capsule,biphase delayed release 60 mg PO PRN PRN 04/09/17 Multivitamin [Daily Multiple Vitamin] 1 each PO DAILY 04/24/17 Aspirin E.C. [Ecotrin] 81 mg PO DAILY@0800 11/05/17 Chlorthalidone 25 mg PO DAILY 11/05/17 Atorvastatin Calcium [Lipitor] 40 mg PO QHS 11/08/17 Acetaminophen [Tylenol Tablet] 650 mg PO Q6H PRN PRN tablet 11/30/17 Cholecalciferol (Vitamin D3) [Vitamin D3] 50,000 unit PO MONTHLY #6 cap 11/30/17 Doxepin HCl [Sinequan] 25 mg PO QHS PRN capsule 11/30/17 Loratadine [Claritin] 10 mg PO DAILY PRN tablet 11/30/17 Losartan Potassium [Cozaar] 100 mg PO DAILY #30 tablet 11/30/17 Paroxetine HCl [Paxil] 20 mg PO DAILY #30 tablet 11/30/17 Tizanidine HCl [Zanaflex] 4 mg PO 2000 #30 tablet 11/30/17 The following prescriptions were given: Cholecalciferol (Vitamin D3) [Vitamin D3] 50,000 unit PO MONTHLY #6 cap Losartan Potassium [Cozaar] 100 mg PO DAILY #30 tablet Paroxetine HCl [Paxil] 20 mg PO DAILY #30 tablet Tizanidine HCl [Zanaflex] 4 mg PO 2000 #30 tablet Primary Care Physician: Brandon March Chi, MD [Primary Care Provider] - Test Results: Test results from this visit will be discussed in further detail at your follow- up appointment, if applicable. Please Follow Up With: [facility] - Physical [facility] Occupational Therapy Please Follow Up With: Fallon England NP When: Sunday Please Follow Up With: Dr. March When: Sunday Proposed Discharge Date: 12/02/17
[2017-11-30 20:15] VITALS: BP 138/81; PULSE 79; RESP 16; TEMP 36.8; O2SAT 96
[2017-11-30] MEDS: tiZANidine HCl 2 MG Tablet 4 MG PO (20:19)
[2017-11-30] MEDS: Atorvastatin Calcium 40 MG Tablet PO (20:19)
[2017-12-01] MEDS: Enoxaparin 40 MG/0.4 ML Syringe SC (07:00)
[2017-12-01 07:38] VITALS: BP 150/70; PULSE 68; RESP 20; TEMP 36.7; O2SAT 95
[2017-12-01] MEDS: Multivitamins,Therapeutic Tablet 1 TABLET PO (07:53)
[2017-12-01] MEDS: Aspirin E.C. 81 MG Tablet PO (07:53)
[2017-12-01] MEDS: Losartan Potassium 100 MG Tablet PO (07:53)
[2017-12-01] MEDS: Chlorthalidone 50 MG Tablet 25 MG PO (07:53)
[2017-12-01 12:20] VITALS: BMI 28.1
[2017-12-01] MEDS: tiZANidine HCl 2 MG Tablet 4 MG PO (20:49)
[2017-12-01] MEDS: Atorvastatin Calcium 40 MG Tablet PO (20:49)
[2017-12-01 20:55] VITALS: BP 139/78; PULSE 79; RESP 18; TEMP 36.8; O2SAT 94
[2017-12-01 23:10] VITALS: BMI 28.1
--- NOTE | 2017-12-01 23:41 | NURSING ---
Reviewed and agree with LPNs fims and handoff
[2017-12-02] MEDS: Enoxaparin 40 MG/0.4 ML Syringe SC (06:56)
[2017-12-02 07:43] VITALS: BP 140/71; PULSE 65; RESP 18; TEMP 36.7; O2SAT 94
[2017-12-02] MEDS: Aspirin E.C. 81 MG Tablet PO (09:06)
[2017-12-02] MEDS: Chlorthalidone 50 MG Tablet 25 MG PO (09:06)
[2017-12-02] MEDS: Losartan Potassium 100 MG Tablet PO (09:06)
[2017-12-02] MEDS: Multivitamins,Therapeutic Tablet 1 TABLET PO (09:06)
[2017-12-02 09:58] VITALS: BP 140/71; PULSE 65; RESP 18; TEMP 36.6; O2SAT 94
--- NOTE | 2017-12-02 16:25 | NURSING ---
Went over discharge instructions, medications and appts. with pt and spouse, both verbalized understanding, answered questions. Pt dc home with spouse, taken to pov by wheelchair, pt had all personal belongings.
== END 2017-12-02 13:30 | disposition home or self-care (01) | DRG 57 ==
PROVIDERS: Internal Medicine; Nurse Practitioner Acute Care; Admitting Provider Psychiatry & Neurology Neurology; Family Provider Family Medicine Geriatric Medicine; PCP Family Medicine Geriatric Medicine; Referring Provider Psychiatry & Neurology Neurology; Visit Provider Internal Medicine
DX: I69.351 Hemiplegia and hemiparesis following cerebral infarction affecting right dominant side (principal); I69.392 Facial weakness following cerebral infarction; I69.328 Other speech and language deficits following cerebral infarction; I69.398 Other sequelae of cerebral infarction; R20.8 Other disturbances of skin sensation; I10 Essential (primary) hypertension; E78.5 Hyperlipidemia, unspecified; M79.7 Fibromyalgia; S70.01XD Contusion of right hip, subsequent encounter; W22.8XXD Striking against or struck by other objects, subsequent encounter; R25.2 Cramp and spasm; G47.00 Insomnia, unspecified; F32.9 Major depressive disorder, single episode, unspecified
CPT/HCPCS: 36415; 80048; 80053; 83735; 84100; 85025; 92507; 92523; 93970; 97110; 97112; 97116; 97127; 97162; 97166; 97530; 97535; 97802; G0515

== ENCOUNTER → 2018-01-14 14:42 | Outpatient (CLI) | payer MEDICARE, OTHER, SELFPAY ==
[2018-01-14 15:55] LABS: Protein, Urine (Random) 21.1 mg/dL (<11.9); Protein:Creat Ratio 194 mg/g CRE (0-200)
[2018-01-14 16:06] LABS: Absolute Lymphocyte Count 3.32 X10^3/ul (0.83-4.51); Absolute Neutrophil Count 4.3 X10^3/uL (2.0-7.7); Basophil# 0.04 X10^3/uL; Basophil% 0.5 % (0-1); Eosinophils% 2.3 % (0-5); Hematocrit 39.1 % (37-47); Hemoglobin 12.9 g/dl (12.0-15.0); Lymphocyte # 3.32 X10^3/ul (4.0); Lymphocyte % 38.3 % (19-41); Mean Corpuscular Hgb 29.3 pg (27.0-32.0); Mean Corpuscular Volume 88.7 fL (81-99); Mean Platelet Vol. 9.9 fl (6.2-12.0); Monocyte# 0.75 X10^3/uL; Monocyte% 8.7 % (0-10); Neutrophil # 4.34 X10^3/uL (2.7-7.7); Platelet Count 281 K/mm3 (150-450); RBC Distribution Width CV 12.2 % (11.6-14.6); RBC Distribution Width SD 39.3 fl (35.1-43.9); Red Blood Count 4.41 M/mm3 (4.2-5.4); White Blood Count 8.7 K/mm3 (4.4-11.0)
[2018-01-14 16:09] LABS: POSITIVE COUNT NO; POSITIVE DIFFERENTIAL NO; POSITIVE MORPHOLOGY NO
[2018-01-14 16:16] LABS: PTHIN 74.7 pg/mL (18.4-80.1)
[2018-01-14 16:17] LABS: Vitamin D,25 Hydroxy 37.6 ng/mL (29.95-100.01)
[2018-01-14 16:25] LABS: Albumin, Serum 3.6 g/dL (3.2-5.0); BUN 24 mg/dL (7-18); BUN/Creat Ratio 21.6 RATIO (10-20); Chloride 106 mmol/L (98-107); Creatinine, Serum 1.11 mg/dL (0.55-1.02); EST Glomerular Filtration Rate 50 mL/min (>60); Est Glom Filt Rate - Afr Amer 61 mL/min (>60); Glucose 87 mg/dL (74-106); Magnesium 1.8 mg/dL (1.6-2.6); Phosphorus 3.1 mg/dL (2.5-4.9); Potassium 3.8 mmol/L (3.5-5.1); Sodium Level 142 mmol/L (136-145); T4 Free Direct 0.82 ng/dL (0.76-1.46); Thyroid Stim Hormone (TSH) 0.73 uIU/mL (0.358-3.74)
== END ==
PROVIDERS: Family Provider Family Medicine Geriatric Medicine; PCP Family Medicine Geriatric Medicine; Referring Provider Internal Medicine Nephrology; Visit Provider Internal Medicine Nephrology
DX: N18.3 Chronic kidney disease, stage 3 (moderate) (principal); R53.83 Other fatigue; E55.9 Vitamin D deficiency, unspecified
CPT/HCPCS: 36415; 80069; 82306; 82570; 83735; 83970; 84156; 84439; 84443; 85025

== ENCOUNTER 2018-04-04 14:30 | Outpatient (RCR) | payer MEDICARE, OTHER, SELFPAY ==
--- NOTE | 2017-12-10 12:01 | HP.PTEVAL_ITS ---
Patient's Visit Information JANIA SPRAGUE is a 77 year old F referred to Physical Therapy by Abdirizak Sin MD with a diagnosis of CVA. Date of Evaluation: 12/10/17 Physical Therapist: Benja Garcia PT, - Visit Plan Frequency: 2x /Week Duration: 6 Weeks - Subjective Subjective: Pt reports she had a CVA 5 weeks ago. Pt reports she was not able to lift her R UE/LE at all after the accident. Pt reports she had been on the rehab floor of the hospital after her accident where she received PT and is doing much better now. Pt reports she is still weak on her R side. This is pt's first CVA. Pt reports she walks with a walker around her house. No Hx of falls. Pt reports she can feel her feet. Pt has a lot of stairs at home which she is able to negotiate one step at a time. Pt is R hand dominant. Pt is not in any pain this date - Objective Neuro: B LE sensation is WNL to light touch. R ptellar reflex= 3+/3, L = 2/3. MMT: L LE is grossly 5/5 throughout. R LE is 3/5 throughout. Gait: Pt is able to ambulate 340' with WW and CGAx1 until needing to sit down. ROM: B LE's are WFL with exception to R ankle AROM DF, which is moderately limited - Goals Goal 1:: Increase R LE strength x 1 grade to aid with stair negotiation Goal Time Frame: 4-6 Weeks Goal 2:: Pt will be able to ambulate greater than 700 feet to aid with community ambulation Goal Time Frame: 4-6 Weeks Goal 3:: I with HEP - Rehabilitation Potential Physical Therapy Diagnosis: Pt has R sided weakness and limited ability to ambulate secondary to residual effects from CVA Rehabilitation Potential: Good - Anticipated Interventions Patient/Client Instruction: Educate patient on: Condition, Plan of Care For the Purpose of:: To improve self management Therapeutic Exercise to Include: Strength training, Endurance training, Balance training, Gait and locomotor training, Dynamic Lumbar Stabilization For the Purpose of:: To improve muscle performance and motor function, To increase tolerance to activity/condition/position, To improve ability of physical actions for home/community/work/leisure Thank you for the opportunity to evaluate your patient. For Medicare and Medicare HMO plans, please review the plan of care and approve it. It will need to be FAXED BACK to us at [phone] for Medicare purposes. Please let me know if there are questions or concerns regarding this plan of care. Physician Signature: Date:
--- NOTE | 2017-12-10 18:28 | HP.OTEVAL ---
Patient's Visit Information JANIA SPRAGUE is a 77 year old F, referred to Occupational Therapy by Abdirizak Sin MD, with a diagnosis of L hemisphere stroke. Date of Evaluation: 12/10/17 Occupational Therapist: MARIBELL Hernandez/Terrell, T - Subjective Subjective: Pt. had stroke 5 weeks ago on the L side causing R sided hemiparesis. Pt. was at the gym on the rowing machine and felt dizzy but well enough to go home. Upon returning home, pt. decided it would be best to go to ER. At the hosptial, pt. collapsed in the medical staffing arms and shortly after recieved TPA to stop the progression of the stroke. At some point, pt. threw a clot from and unidentifed location. Pt. was flaccid on the R side but is regaining strength now. - Objective Objective/Observation: ptShanda demo no subluxation of the R shoulder, but reports that in the past she had a rotator cuff injury that causes her to have decreased strength. - ROM MP: R 0/90 for all digits, L 0/90, 0/85, 0/90, 0/103 PIP: R 5 105, 4 110, 3 105, 2 108, L 105 across DIP: 570, 460, 355,2 70, L 80 across except 5th is 90 ROM Comments: thumb ROM is limited d/t previous injuries - Strength Shoulder: 3+/5 Elbow: 3+/5 Forearm: 3+/5 Wrist: 3+/5 for wrist extension [employer]: 18 # on R and 34 # on L Lateral Pinch: 6 # on R and 9 # on L Tripod Pinch: 8 # on L and 8 # on R Strength Comments: increased time to perform sup/pronation and thinking time to complete the movement. Pt. full ROM in sup/pro movement, but has difficulty maintaining sup position for long periods of time. Pt. demo decreased mm tone through entire R arm. - Sensation Sensation Comments: decreased sensation in thumb from previous injury, pt. able to detect normal sensation. - Visual/Perceptual Skills Comments: denies vision concerns and reports that vision improved after stroke - Cognitive Skills Follows Directions: Yes Oriented to (Check all that apply): Date Short Term Memory Impaired: No Cognitive Comments: pt. is oriented to person/place/time, pt. reports no STM concerns - Attention Attention: Normal - Nine Hole Peg Right: 1 min and 46 sec. Left: 24.09 - In-Hand Manipulation Finger to Palm Translation: Moderate - Right Palm to Finger Translation: Severe - Right Comments: pt. 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 in R hand by completing strengthening exercises and stretches in order to complete BADL?s and IADL?s. Patient will improve lateral and tripod grasps by 5 lbs. in R hand by completing strengthening and stretching exercises in order to complete BADL?s and IADL?s. Patient will complete and demo understanding of UE strengthening exercises to improve UE strength to 4/5 for increased ability to functionally complete BADL's and IADL's. Patient will demonstrate increased speed of motor performance to decrease time to complete BADL's and IADL's. Goal:: Patient will demo ability to make full composite fist in order to complete BADL's and IADL's with increased I. Goal:: Patient will complete fine motor tasks in order to improve in hand manipulation and increase speed demonstrated by decreased time on 9 hole peg test to less than one min. for increased ability to complete BADL's and IADL's. Goal:: Patient will report understanding of compensatory methods for BADL's and IADL's and report increased I with ability to complete BADL's and IADL's. Goal:: Patient will demo understanding of ECM in order to functionally complete BADL's and IADL's. Goal:: Patient will report increased I with writing tasks in order to have increased I with IADL's. - Rehabilitation General Assessment: Patient had a L hemisphere stroke 5 weeks ago, causing her to present with R sided hemiparesis. OT noted that pt. has good ROM of motion but pt. requires increased time to complete movements of R UE arm and demo limited ability to make composite fist. Pt. also has decreased strength and limited fine motor skills causing pt. to have decreased ability to complete BADL's and IADL's. Pt. will benefit from OT services 2x/wk for 6 wks. Rehabilitation Potential: Good - Anticipated Interventions Anticipated Interventions: A/AAROM/PROM, Strengthening, Triggerpoint Release, Modalities, Joint Protection/Energy Conservation, Ergonomic Education, Fine Motor Coord/Jeffy, Neuro Reeducation, Cognitive Skills, ADL Training, Education re Diagnosis, Caregiver Training, Home Program - Visit Plan Frequency: 2x /Week Duration: 6 Weeks TEXT: Thank you for the opportunity to evaluate your patient. For Medicare and Medicare HMO plans, please review the plan of care and approve it. It will need to be FAXED BACK to us at [phone] for Medicare purposes. Please let me know if there are questions or concerns regarding this plan of care. Physician Signature: Date:
--- NOTE | 2018-01-11 10:54 | OTREVAL_ITS ---
Abdirizak Sin MD, It has been my pleasure to treat JANIA SPRAGUE over the last 10 visits for L hemisphere stroke. Please see the progress note below for an update on the occupational therapy plan of care! Subjective: pt. arrives and states that the rubber band exercises went well for her. 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 lateral 12# in L and 9# in R. tripod 7# in L and 7# in R. Patient is making good progress and strength is improving. Pt. has been doing well with PRE during therapy sessions and is improving in her ability to complete fine motor tasks. pt. reports that she has been able to complete more functional tasks at home. pt. demo excellent follow through with HEP.Pt. will cont. to work on R UE strength and fine motor skills during OT sessions. 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 in R hand by completing strengthening exercises and stretches in order to complete BADL?s and IADL?s. Patient will improve lateral and tripod grasps by 5 lbs. in R hand by completing strengthening and stretching exercises in order to complete BADL?s and IADL?s. Patient will complete and demo understanding of UE strengthening exercises to improve UE strength to 4/5 for increased ability to functionally complete BADL's and IADL's. Patient will demonstrate increased speed of motor performance to decrease time to complete BADL's and IADL's. Goal:: Patient will demo ability to make full composite fist in order to comp lete BADL's and IADL's with increased I. Goal:: Patient will complete fine motor tasks in order to improve in hand manipulation and increase speed demonstrated by decreased time on 9 hole peg test to less than one min. for increased ability to complete BADL's and IADL's. Goal:: Patient will report understanding of compensatory methods for BADL's and IADL's and report increased I with ability to complete BADL's and IADL's. Goal:: Patient will demo understanding of ECM in order to functionally complete BADL's and IADL's. Goal:: Patient will report increased I with writing tasks in order to have increased I with IADL's. Anticipated Interventions Anticipated Interventions: A/AAROM/PROM, Strengthening, Triggerpoint Release, Modalities, Joint Protection/Energy Conservation, Ergonomic Education, Fine Motor Coord/Jeffy, Neuro Reeducation, Cognitive Skills, ADL Training, Education re Diagnosis, Caregiver Training, Home Program Please do not hesitate to contact me at [phone] by phone or if you have questions or concerns regarding this new plan of care! Sincerely, Jazmyn Maharaj, OTR/L, CHT
--- NOTE | 2018-01-22 14:15 | HP.PTREVAL ---
Abdirizak Sin MD, It has been my pleasure to treat JANIA SPRAGUE over the last 10 visits for CVA. Please see the progress note below for an update on the physical therapy plan of care! Subjective: Pt is really tired today. Pt had sleep difficulty last night, not sure why Objective/Function: R LE hip and knee flexion 4/5, all other R LE MMT 4+/5. Pt is progressing well toward HEP. Pt is able to ambulate 800 feet with WW Plan Plan: R LE strengthening, gait training, balance and proprio, core stab ex's, nustep, and HEP Goals Goal 1:: Increase R LE strength x 1 grade to aid with stair negotiation Goal Time Frame: 4-6 Weeks Goal 2:: Pt will be able to ambulate greater than 700 feet to aid with community ambulation Goal Time Frame: 4-6 Weeks Goal 3:: I with HEP Goal Progress: Progressing Anticipated Interventions Patient/Client Instruction: Educate patient on: Condition, Plan of Care For the Purpose of:: To improve self management Therapeutic Exercise to Include: Strength training, Endurance training, Balance training, Gait and locomotor training, Dynamic Lumbar Stabilization For the Purpose of:: To improve muscle performance and motor function, To increase tolerance to activity/condition/position, To improve ability of physical actions for home/community/work/leisure Please do not hesitate to contact me at [phone] by phone or if you have questions or concerns regarding this new plan of care! Sincerely, Benja Garcia, PT,
--- NOTE | 2018-02-14 13:08 | HP.PTDCSUM ---
HP - PT D/C Summary It has been my pleasure to treat JANIA SPRAGUE under orders from Abdirizak Sin MD, for the diagnosis of CVA for a total of 14 visit(s). Discharge Date: Please see the following information for a summary of their discharge status. - Subjective Subjective: Pt reports she feels ready to cont with HEP I - Overall Improvement % Improvement: 75 - Objective Objective/Function: R LE MMT 5/5 throughout with the exception of hip flexion= 4/5. Pt is able to ambulate greater than 1000' with no AD. Pt is I with HEP. Rx goals achieved - Goals Goal 1:: Increase R LE strength x 1 grade to aid with stair negotiation Goal Progress: Goal Met Goal 2:: Pt will be able to ambulate greater than 700 feet to aid with community ambulation Goal Progress: Goal Met Goal 3:: I with HEP Goal Progress: Goal Met - Plan Plan: Discharge - D/C Information If there are questions or concerns regarding this patient's physical therapy, please feel free to call me at [phone]. Thank you for the referral of this patient. Sincerely, Benja Garcia, PT, ATC
--- NOTE | 2018-05-28 08:17 | HP.OTDCNRP_ITS ---
HP - Discharge Summary - Patient Information JANIA SPRAGUE was seen in my office for initial evaluation on 12/10/17. The following Plan of Care was established for this patient: Initial Frequency: 2x /Week Initial Duration: 6 Weeks Plan: pt to cont with HEP and return in 4 weeks - Anticipated Interventions Anticipated Interventions: A/AAROM/PROM, Strengthening, Triggerpoint Release, Modalities, Joint Protection/Energy Conservation, Ergonomic Education, Fine Motor Coord/Jeffy, Neuro Reeducation, Cognitive Skills, ADL Training, Education re Diagnosis, Caregiver Training, Home Program This patient was last seen in our office 04/04/18. Pertinent comments regarding their Occupational therapy will appear below: pt was seen for 23 visits to challenge weakness and limited use of her UE foll owing a stroke. pt did well and transitioned to a health and wellness program. Pt was to return in 4 weeks to ensure she was cont. to do well. pt has not returned at this time and is now D/C. At this point I will be discontinuing this patient from occupational therapy. I would be happy to see this patient again in the future if found appropriate by the physician. Thank you! Jazmyn Maharaj, OTR/L, CHT
== END 2018-04-04 19:00 | disposition home or self-care (01) ==
LOC: OT 14:30
PROVIDERS: Family Provider Family Medicine Geriatric Medicine; PCP Family Medicine Geriatric Medicine; Referring Provider Psychiatry & Neurology Neurology; Visit Provider Psychiatry & Neurology Neurology
DX: Z86.73 Personal history of transient ischemic attack (TIA), and cerebral infarction without residual deficits (principal)
CPT/HCPCS: 97110; 97112; 97116; 97162; 97166; 97168; 97530

== ENCOUNTER → 2018-04-18 13:10 | Outpatient (CLI) | payer MEDICARE, SELFPAY ==
[2018-04-18 16:55] LABS: Absolute Lymphocyte Count 2.82 X10^3/ul (0.83-4.51); Absolute Neutrophil Count 4.4 X10^3/uL (2.0-7.7); Basophil# 0.05 X10^3/uL; Basophil% 0.6 % (0-1); Eosinophil# 0.16 X10^3/uL; Hematocrit 41.7 % (37-47); Hemoglobin 13.6 g/dl (12.0-15.0); Lymphocyte # 2.82 X10^3/ul (4.0); Lymphocyte % 35.4 % (19-41); Mean Corp Hgb Conc 32.6 g/gl (32-36); Mean Corpuscular Hgb 30.2 pg (27.0-32.0); Mean Corpuscular Volume 92.5 fL (81-99); Monocyte# 0.55 X10^3/uL; Monocyte% 6.9 % (0-10); Neutrophil # 4.37 X10^3/uL (2.7-7.7); Neutrophil % 54.8 % (47-70); Platelet Count 327 K/mm3 (150-450); RBC Distribution Width CV 11.7 % (11.6-14.6); Red Blood Count 4.51 M/mm3 (4.2-5.4)
[2018-04-18 17:27] LABS: ALB/GLOB Ratio 1.2 RATIO (0.9-2.4); AST(SGOT) 22 U/L (15-37); Alanine Aminotransfer ALT/SGPT 25 U/L (13-56); Albumin, Serum 3.7 g/dL (3.2-5.0); Alkaline Phosphatase 75 U/L (45-117); Anion Gap 11 (5-15); BUN 19 mg/dL (7-18); Calcium,Total 9.7 mg/dL (8.5-10.1); Chloride 105 mmol/L (98-107); Creatinine, Serum 1.19 mg/dL (0.55-1.02); EST Glomerular Filtration Rate 47 mL/min (>60); Est Glom Filt Rate - Afr Amer 56 mL/min (>60); Globulin 3.2 g/dL (2.2-4.2); Glucose 133 mg/dL (74-106); Potassium 3.8 mmol/L (3.5-5.1); Protein, Total 6.9 g/dL (6.4-8.2); Sodium Level 142 mmol/L (136-145); Thyroid Stim Hormone (TSH) 0.83 uIU/mL (0.358-3.74)
[2018-04-18 18:01] LABS: Vitamin D,25 Hydroxy 27.8 ng/mL (29.95-100.01)
[2018-04-18 18:03] LABS: POSITIVE COUNT NO; POSITIVE DIFFERENTIAL NO; POSITIVE MORPHOLOGY NO
== END ==
PROVIDERS: Family Provider Family Medicine Geriatric Medicine; PCP Family Medicine Geriatric Medicine; Visit Provider Family Medicine Geriatric Medicine
DX: I10 Essential (primary) hypertension (principal); E55.9 Vitamin D deficiency, unspecified
CPT/HCPCS: 36415; 80053; 82306; 84443; 85025

== ENCOUNTER → 2018-06-07 | Outpatient (CLI) | payer MEDICARE, OTHER, SELFPAY ==
[2018-06-07 14:04] VITALS: BMI 28.1
--- NOTE | 2018-06-07 15:07 | RAD_ITS ---
STUDY: X-RAY - LEFT CLAVICLE REASON FOR EXAM: Female, 78 years old. Pain after a fall TECHNIQUE: 2 view(s) of the clavicle. COMPARISON: None. FINDINGS: Normal clavicle. Normal acromioclavicular articulation. Normal visualized sternoclavicular articulation. Normal visualized pulmonary apex. RAD/Clavicle IMPRESSION: Normal x-ray examination of the clavicle. Electronically Signed: Sathya Dahl MD at 15:30 EDT , Service support ,
--- NOTE | 2018-06-07 15:11 | RAD_ITS ---
STUDY: X-RAY - LEFT SHOULDER REASON FOR EXAM: Female, 78 years old. Pain after a fall TECHNIQUE: 4 view(s) of the shoulder. COMPARISON: None. FINDINGS: There is mild degenerative arthrosis of the glenohumeral articulation. There is degenerative arthrosis of the acromioclavicular joint without inferior osseous spur formation. Normal acromion. Normal humeral head and visualized proximal humerus. The soft tissue structures are unremarkable. Normal visualized pulmonary apex. RAD/Shoulder min 2 Views IMPRESSION: Degenerative arthrosis, no demonstrated fracture or suspicious osseous lesion Electronically Signed: Sathya Dahl MD at 15:30 EDT , Service support ,
== END | disposition home or self-care (01) ==
LOC: HPRAD 15:06
PROVIDERS: Family Provider Family Medicine Geriatric Medicine; PCP Family Medicine Geriatric Medicine; Referring Provider Physician Assistant Medical; Visit Provider Physician Assistant Medical
DX: M95.9 Acquired deformity of musculoskeletal system, unspecified (principal); S43.402A Unspecified sprain of left shoulder joint, initial encounter
CPT/HCPCS: 73000; 73030

== ENCOUNTER 2018-06-09 11:22 | Emergency (ER) | payer MEDICARE, OTHER, SELFPAY ==
[2018-06-07 14:04] VITALS: BMI 28.1
[2018-06-09 11:24] VITALS: BP 142/72; PULSE 108; RESP 16; TEMP 36.3; O2SAT 99; BMI 26.9
--- NOTE | 2018-06-09 11:44 | CT_ITS ---
STUDY: CT LEFT SHOULDER REASON FOR EXAM: Female, 78 years old. Shoulder and clavicle pain. Recent fall. RADIATION DOSAGE (If Supplied By Facility): CTDIvol = ( 25.29 ) mGy, DLP = ( 361.72 ) mGycm TECHNIQUE: The patient was scanned in a multi detector CT scanner. High resolution transaxial imaging was performed without the administration of intravenous contrast material. Sagittal and coronal images were reconstructed. Individualized dose optimization techniques were used for this CT. COMPARISON: X-ray June 07, 2018. FINDINGS: There is mild osteoarthritis of the glenohumeral articulation, with mild articular joint space narrowing and mild osteoarthritic spurring. Normal glenoid rim, neck and visualized scapula. Normal humeral head, neck and tuberosities. Normal coracoid process. There is fracture of the medial clavicle adjacent to the sternoclavicular joint, series 3 images through . There is adjacent soft tissue swelling. There is mild osteoarthritis with articular joint space narrowing. There is a Type II morphology (curved) the acromion, with a neutral orientation. Normal visualized muscles. CT/Extremity Upper without Contra IMPRESSION: Medial clavicle fracture. Electronically Signed: Francisco Brown MD at 12:57 EDT , Service support ,
--- NOTE | 2018-06-09 11:47 | ED.VISSUMM ---
- ER Visit Summary Date of Service: 06/09/18 Chief Complaint: Left arm injury History of Present Illness: The patient is a 78 F who slipped and fell going down some steps 1 week ago. She put her left hand out to catch herself. She was seen [facility] on the for continued left shoulder tenderness and bronchitis. Patient had x-rays of the clavicle and shoulder that were unremarkable. Patient was told to go the emergency room for a CT scan of her clavicle before she sees her PCP tomorrow. She does have slight protrusion to the medial cleft clavicle patient is concerned she dislocated it a week ago. Physical Examination: Vital signs unremarkable. Patient sitting in a bedside chair. Head and neck examination reveals left cervical paraspinal tenderness. No midline tenderness. Heart is regular rate and rhythm. Lung sounds are clear. Abdomen is soft nontender. Left upper extremity examination does reveal tenderness of the medial left clavicle with mild protrusion compared to the right. She has normal range of motion of the left shoulder. Test Results: CT scan of the left clavicle was obtained and reviewed the medial clavicle fracture. It is not displaced. There is no dislocation. Emergency Department Course and Treatment: Patient was given a tab of Red Lion here. She will be given a prescription for the same. Test results were discussed with patient and at bedside and they were shown a copy of the CT. Patient is declining a sling at this time. Patient initially injured her arm a week ago and there is no displacement of the fracture. The fracture being so medially I do not know that the sling would make a big difference regardless. She will follow-up with her primary care physician tomorrow as planned. Treatment Plan: [] Disposition: Discharge Impression: Medial left clavicle fracture This note was generated with [employer] dictation software. It may contain incorrect words, spelling, and punctuation that were not noted in review of the chart prior to signing ED Disposition - Plan for ED Patient: Disposition: Home or Assisted Living Instructions: ED Fx Clavicle Prescriptions: Hydrocodone Bitart/Apap 5-325 [Red Lion 5MG-325MG] 1 tablet PO Q6H PRN PRN 3 Days #10 tablet PRN Reason: Pain Referrals: Brandon March Chi, MD [Primary Care Provider] - Keep Nona appointment
[2018-06-09] MEDS: HYDROcodone Bitartrate/Apap 5/325 Tablet PO (11:54)
[2018-06-09 13:21] VITALS: BP 129/69; PULSE 77; RESP 15; O2SAT 96
== END 2018-06-09 13:22 | disposition home or self-care (01) ==
PROVIDERS: Emergency Provider Emergency Medicine; Family Provider Family Medicine Geriatric Medicine; PCP Family Medicine Geriatric Medicine
DX: S42.018D Nondisplaced fracture of sternal end of left clavicle, subsequent encounter for fracture with routine healing (principal); I10 Essential (primary) hypertension; Z86.73 Personal history of transient ischemic attack (TIA), and cerebral infarction without residual deficits; Z79.02 Long term (current) use of antithrombotics/antiplatelets; Z79.899 Other long term (current) drug therapy; W01.0XXD Fall on same level from slipping, tripping and stumbling without subsequent striking against object, subsequent encounter
CPT/HCPCS: 73200; 99283

== ENCOUNTER → 2018-07-18 | Outpatient (CLI) | payer MEDICARE, OTHER, SELFPAY ==
[2018-07-18 10:33] LABS: Hematocrit 40.3 % (37-47); Hemoglobin 13.4 g/dl (12.0-15.0); Mean Corp Hgb Conc 33.3 g/gl (32-36); Mean Corpuscular Hgb 29.8 pg (27.0-32.0); Mean Corpuscular Volume 89.8 fL (81-99); Mean Platelet Vol. 9.5 fl (6.2-12.0); Platelet Count 305 K/mm3 (150-450); RBC Distribution Width CV 12.4 % (11.6-14.6); RBC Distribution Width SD 40.2 fl (35.1-43.9); Red Blood Count 4.49 M/mm3 (4.2-5.4); White Blood Count 6.9 K/mm3 (4.4-11.0)
[2018-07-18 10:34] LABS: Scan Indicated on CBC? Y/N NO
[2018-07-18 10:56] LABS: Albumin, Serum 3.6 g/dL (3.2-5.0); BUN 19 mg/dL (7-18); Calcium,Total 9.6 mg/dL (8.5-10.1); Chloride 106 mmol/L (98-107); Creatinine, Serum 1.12 mg/dL (0.55-1.02); EST Glomerular Filtration Rate 50 mL/min (>60); Est Glom Filt Rate - Afr Amer 60 mL/min (>60); Glucose 86 mg/dL (74-106); Phosphorus 3.4 mg/dL (2.5-4.9); Potassium 3.9 mmol/L (3.5-5.1); Sodium Level 139 mmol/L (136-145)
[2018-07-18 11:22] LABS: Microalbumin,Random Urine 21.1 mg/L (NO RANGE EST.); Microalbumin:Creatinine Ratio 30.1 mg/g CRE (<30 mg/g CRE)
[2018-07-22 08:56] LABS: PTHIN 91.1 pg/mL (18.4-80.1)
== END | disposition home or self-care (01) ==
PROVIDERS: Family Provider Family Medicine Geriatric Medicine; PCP Family Medicine Geriatric Medicine; Referring Provider Internal Medicine Nephrology; Visit Provider Internal Medicine Nephrology
DX: N18.3 Chronic kidney disease, stage 3 (moderate) (principal); E55.9 Vitamin D deficiency, unspecified
CPT/HCPCS: 36415; 80069; 82043; 82306; 82570; 83735; 83970; 85027

== ENCOUNTER → 2018-10-21 | Outpatient (CLI) | payer MEDICARE, OTHER, SELFPAY ==
--- NOTE | 2018-10-21 10:45 | RAD_ITS ---
STUDY: X-RAY - LEFT KNEE REASON FOR EXAM: Female, 78 years old. Left knee pain TECHNIQUE: 4 view(s) of the knee. COMPARISON: None. FINDINGS: There are expected changes total knee arthroplasty. Femoral and tibial components are intact, in the expected location and have normal bone interface. There are surgical changes in the patella. Soft tissues are unremarkable given postoperative change in the suprapatellar fossa. RAD/Knee 4 or More Views IMPRESSION: Expected appearance of total knee arthroplasty. Electronically Signed: Kalin Butts, at 20:00 EDT Tel , Service support ,
== END | disposition home or self-care (01) ==
LOC: HPRAD 10:42
PROVIDERS: Family Provider Family Medicine Geriatric Medicine; PCP Family Medicine Geriatric Medicine; Referring Provider Orthopaedic Surgery; Visit Provider Orthopaedic Surgery
DX: Z96.659 Presence of unspecified artificial knee joint (principal)
CPT/HCPCS: 73564

== ENCOUNTER → 2018-10-23 | Outpatient (CLI) | payer MEDICARE, OTHER, SELFPAY ==
[2018-10-21 11:00] VITALS: BMI 26.9
[2018-10-23 12:39] LABS: Hematocrit 43.9 % (37-47); Hemoglobin 14.2 g/dL (12.0-15.0); Red Blood Count 4.73 M/mm3 (4.2-5.4); White Blood Count 11.7 K/mm3 (4.4-11.0)
[2018-10-23 12:40] LABS: Absolute Lymphocyte Count 2.82 X10^3/uL (0.83-4.51); Absolute Neutrophil Count 7.7 X10^3/uL (2.0-7.7); Basophil# 0.05 X10^3/uL; Basophil% 0.4 % (0-1); Eosinophil# 0.15 X10^3/uL; Eosinophils% 1.3 % (0-5); Lymphocyte # 2.82 X10^3/ul (4.0); Lymphocyte % 24.1 % (19-41); Mean Corp Hgb Conc 32.3 g/dL (32-36); Mean Corpuscular Volume 92.8 fL (81-99); Monocyte# 0.84 X10^3/uL; Monocyte% 7.2 % (0-10); NRBC Flagged by Analyzer 0 % (0-5); Neutrophil # 7.74 X10^3/uL (2.7-7.7); Neutrophil % 66.1 % (47-70); Platelet Count 314 K/mm3 (150-450); RBC Distribution Width CV 11.9 % (11.6-14.6); RBC Distribution Width SD 40.9 fl (35.1-43.9)
[2018-10-23 13:03] LABS: ALB/GLOB Ratio 1.2 RATIO (0.9-2.4); AST(SGOT) 28 U/L (15-37); Alanine Aminotransfer ALT/SGPT 32 U/L (13-56); Albumin, Serum 4.2 g/dL (3.2-5.0); Alkaline Phosphatase 67 U/L (45-117); Anion Gap 8 (5-15); BUN 31 mg/dL (7-18); BUN/Creat Ratio 24.8 RATIO (10-20); Calcium,Total 10.4 mg/dL (8.5-10.1); Chloride 108 mmol/L (98-107); Creatinine, Serum 1.25 mg/dL (0.55-1.02); EST Glomerular Filtration Rate 44 mL/min (>60); Est Glom Filt Rate - Afr Amer 53 mL/min (>60); Globulin 3.4 g/dL (2.2-4.2); Glucose 99 mg/dL (74-106); Potassium 4.2 mmol/L (3.5-5.1); Protein, Total 7.6 g/dL (6.4-8.2); Sodium Level 141 mmol/L (136-145); Thyroid Stim Hormone (TSH) 0.63 uIU/mL (0.358-3.74); Uric Acid 5.3 mg/dL (2.6-6.0)
== END | disposition home or self-care (01) ==
LOC: POLAB3 10:19
PROVIDERS: Family Provider Family Medicine Geriatric Medicine; PCP Family Medicine Geriatric Medicine; Visit Provider Family Medicine Geriatric Medicine
DX: E55.9 Vitamin D deficiency, unspecified (principal); I10 Essential (primary) hypertension; M10.9 Gout, unspecified
CPT/HCPCS: 36415; 80053; 82306; 84443; 84550; 85025

== ENCOUNTER → 2019-02-13 13:34 | Outpatient (CLI) | payer MEDICARE, OTHER, SELFPAY ==
[2018-10-21 11:00] VITALS: BMI 26.9
[2019-02-13 14:44] LABS: Hematocrit 40.7 % (37-47); Hemoglobin 13.3 g/dL (12.0-15.0); Mean Corp Hgb Conc 32.7 g/dL (32-36); Mean Corpuscular Hgb 30.3 pg (27.0-32.0); Mean Corpuscular Volume 92.7 fL (81-99); Mean Platelet Vol. 9.9 fl (6.2-12.0); Platelet Count 264 K/mm3 (150-450); RBC Distribution Width CV 11.9 % (11.6-14.6); RBC Distribution Width SD 40.6 fl (35.1-43.9); Red Blood Count 4.39 M/mm3 (4.2-5.4); White Blood Count 10.5 K/mm3 (4.4-11.0)
[2019-02-13 15:02] LABS: Microalbumin,Random Urine 14.7 mg/L (NO RANGE EST.); Microalbumin:Creatinine Ratio 39.4 mg/g CRE (<30 mg/g CRE)
[2019-02-13 15:04] LABS: Albumin, Serum 3.7 g/dL (3.2-5.0); BUN 24 mg/dL (7-18); BUN/Creat Ratio 17.8 RATIO (10-20); Calcium,Total 9.4 mg/dL (8.5-10.1); Chloride 106 mmol/L (98-107); Creatinine, Serum 1.35 mg/dL (0.55-1.02); EST Glomerular Filtration Rate 40 mL/min (>60); Est Glom Filt Rate - Afr Amer 49 mL/min (>60); Glucose 112 mg/dL (74-106); Magnesium 2.2 mg/dL (1.6-2.6); Phosphorus 2.5 mg/dL (2.5-4.9); Potassium 3.9 mmol/L (3.5-5.1); Sodium Level 139 mmol/L (136-145)
[2019-02-13 15:14] LABS: PTHIN 116.7 pg/mL (18.4-80.1)
== END ==
PROVIDERS: Family Provider Family Medicine Geriatric Medicine; PCP Family Medicine Geriatric Medicine; Referring Provider Internal Medicine Nephrology; Visit Provider Internal Medicine Nephrology
DX: N18.3 Chronic kidney disease, stage 3 (moderate) (principal); E55.9 Vitamin D deficiency, unspecified
CPT/HCPCS: 36415; 80069; 82043; 82306; 82570; 83735; 83970; 85027

== ENCOUNTER → 2019-04-23 09:28 | Outpatient (CLI) | payer MEDICARE, OTHER, SELFPAY ==
[2018-10-21 11:00] VITALS: BMI 26.9
[2019-04-23 11:14] LABS: Absolute Lymphocyte Count 2.73 X10^3/uL (0.83-4.51); Absolute Neutrophil Count 4.8 X10^3/uL (2.0-7.7); Basophil# 0.07 X10^3/uL; Basophil% 0.8 % (0-1); Eosinophil# 0.18 X10^3/uL; Eosinophils% 2.1 % (0-5); Hematocrit 41.6 % (37-47); Hemoglobin 13.6 g/dL (12.0-15.0); Lymphocyte # 2.73 X10^3/ul (4.0); Lymphocyte % 32.4 % (19-41); Mean Corp Hgb Conc 32.7 g/dL (32-36); Mean Corpuscular Hgb 30.1 pg (27.0-32.0); Monocyte# 0.65 X10^3/uL; Monocyte% 7.7 % (0-10); NRBC Flagged by Analyzer 0 % (0-5); Neutrophil # 4.77 X10^3/uL (2.7-7.7); Neutrophil % 56.8 % (47-70); Platelet Count 299 K/mm3 (150-450); RBC Distribution Width CV 11.9 % (11.6-14.6); RBC Distribution Width SD 39.9 fl (35.1-43.9); Red Blood Count 4.52 M/mm3 (4.2-5.4); White Blood Count 8.4 K/mm3 (4.4-11.0)
[2019-04-23 11:26] LABS: Vitamin D,25 Hydroxy 48.2 ng/mL
[2019-04-23 11:38] LABS: ALB/GLOB Ratio 1.2 RATIO (0.9-2.4); AST(SGOT) 24 U/L (15-37); Alanine Aminotransfer ALT/SGPT 28 U/L (13-56); Albumin, Serum 3.9 g/dL (3.2-5.0); Alkaline Phosphatase 63 U/L (45-117); Anion Gap 6 (5-15); BUN 25 mg/dL (7-18); BUN/Creat Ratio 25.7 RATIO (10-20); Calcium,Total 9.8 mg/dL (8.5-10.1); Chloride 104 mmol/L (98-107); Creatinine, Serum 0.97 mg/dL (0.55-1.02); EST Glomerular Filtration Rate 59 mL/min (>60); Est Glom Filt Rate - Afr Amer 71 mL/min (>60); Globulin 3.2 g/dL (2.2-4.2); Glucose 84 mg/dL (74-106); Potassium 3.9 mmol/L (3.5-5.1); Protein, Total 7.1 g/dL (6.4-8.2); Sodium Level 138 mmol/L (136-145); Thyroid Stim Hormone (TSH) 0.81 uIU/mL (0.358-3.74)
== END ==
PROVIDERS: PCP Family Medicine Geriatric Medicine; Visit Provider Family Medicine Geriatric Medicine
DX: I10 Essential (primary) hypertension (principal); E55.9 Vitamin D deficiency, unspecified
CPT/HCPCS: 36415; 80053; 82306; 84443; 85025

== ENCOUNTER → 2019-10-30 10:07 | Outpatient (CLI) | payer MEDICARE, OTHER, SELFPAY ==
[2018-10-21 11:00] VITALS: BMI 26.9
[2019-10-30 12:32] LABS: Absolute Lymphocyte Count 4.14 X10^3/uL (0.83-4.51); Absolute Neutrophil Count 4.2 X10^3/uL (2.0-7.7); Basophil# 0.07 X10^3/uL; Basophil% 0.7 % (0-1); Eosinophil# 0.22 X10^3/uL; Eosinophils% 2.3 % (0-5); Hematocrit 44.9 % (37-47); Hemoglobin 14.4 g/dL (12.0-15.0); Lymphocyte # 4.14 X10^3/ul (4.0); Lymphocyte % 43.7 % (19-41); Mean Corp Hgb Conc 32.1 g/dL (32-36); Mean Corpuscular Hgb 29.6 pg (27.0-32.0); Mean Corpuscular Volume 92.2 fL (81-99); Mean Platelet Vol. 10.4 fl (6.2-12.0); Monocyte# 0.81 X10^3/uL; Monocyte% 8.6 % (0-10); NRBC Flagged by Analyzer 0 % (0-5); Neutrophil # 4.21 X10^3/uL (2.7-7.7); Neutrophil % 44.5 % (47-70); Platelet Count 355 K/mm3 (150-450); RBC Distribution Width SD 40.9 fl (35.1-43.9); Red Blood Count 4.87 M/mm3 (4.2-5.4); White Blood Count 9.5 K/mm3 (4.4-11.0)
[2019-10-30 13:04] LABS: ALB/GLOB Ratio 1.2 RATIO (0.9-2.4); AST(SGOT) 27 U/L (15-37); Alanine Aminotransfer ALT/SGPT 30 U/L (13-56); Alkaline Phosphatase 66 U/L (45-117); Anion Gap 7 (5-15); BUN 31 mg/dL (7-18); BUN/Creat Ratio 20.9 RATIO (10-20); Calcium,Total 10.3 mg/dL (8.5-10.1); Chloride 105 mmol/L (98-107); Creatinine, Serum 1.48 mg/dL (0.55-1.02); EST Glomerular Filtration Rate 36 mL/min (>60); Est Glom Filt Rate - Afr Amer 44 mL/min (>60); Globulin 3.4 g/dL (2.2-4.2); Glucose 149 mg/dL (74-106); Potassium 3.8 mmol/L (3.5-5.1); Protein, Total 7.4 g/dL (6.4-8.2); Sodium Level 139 mmol/L (136-145); Thyroid Stim Hormone (TSH) 0.73 uIU/mL (0.358-3.74)
[2019-10-30 13:42] LABS: Vitamin D,25 Hydroxy 44.6 ng/mL
== END ==
PROVIDERS: PCP Family Medicine Geriatric Medicine; Visit Provider Family Medicine Geriatric Medicine
DX: E55.9 Vitamin D deficiency, unspecified (principal); I10 Essential (primary) hypertension
CPT/HCPCS: 36415; 80053; 82306; 84443; 85025

== ENCOUNTER → 2020-02-23 17:26 | Outpatient (CLI) | payer MEDICARE, OTHER, SELFPAY ==
[2018-10-21 11:00] VITALS: BMI 26.9
== END ==
PROVIDERS: PCP Family Medicine Geriatric Medicine; Referring Provider Family Medicine Geriatric Medicine; Visit Provider Family Medicine Geriatric Medicine
DX: R68.83 Chills (without fever) (principal)
CPT/HCPCS: 87633; 87635; U0005; U0003

== ENCOUNTER → 2020-05-05 11:58 | Outpatient (CLI) | payer MEDICARE, OTHER, SELFPAY ==
[2018-10-21 11:00] VITALS: BMI 26.9
[2020-05-05 12:27] LABS: Absolute Lymphocyte Count 4.09 X10^3/uL (0.83-4.51); Absolute Neutrophil Count 5.2 X10^3/uL (2.0-7.7); Basophil# 0.08 X10^3/uL; Basophil% 0.8 % (0-1); Eosinophil# 0.27 X10^3/uL; Eosinophils% 2.6 % (0-5); Hematocrit 44.2 % (37-47); Hemoglobin 14.5 g/dL (12.0-15.0); Lymphocyte # 4.09 X10^3/ul (4.0); Lymphocyte % 39.3 % (19-41); Mean Corp Hgb Conc 32.8 g/dL (32-36); Mean Corpuscular Hgb 29.9 pg (27.0-32.0); Mean Corpuscular Volume 91.1 fL (81-99); Mean Platelet Vol. 10.6 fl (6.2-12.0); Monocyte# 0.74 X10^3/uL; Monocyte% 7.1 % (0-10); NRBC Flagged by Analyzer 0 % (0-5); Neutrophil # 5.22 X10^3/uL (2.7-7.7); Platelet Count 321 K/mm3 (150-450); RBC Distribution Width SD 40.1 fl (35.1-43.9); Red Blood Count 4.85 M/mm3 (4.2-5.4); White Blood Count 10.4 K/mm3 (4.4-11.0)
[2020-05-05 12:32] LABS: Vitamin D,25 Hydroxy 27.4 ng/mL
[2020-05-05 12:44] LABS: ALB/GLOB Ratio 1.2 RATIO (0.9-2.4); AST(SGOT) 18 U/L (15-37); Alanine Aminotransfer ALT/SGPT 25 U/L (13-56); Albumin, Serum 3.9 g/dL (3.2-5.0); Alkaline Phosphatase 68 U/L (45-117); Anion Gap 6 (5-15); BUN 25 mg/dL (7-18); Calcium,Total 9.7 mg/dL (8.5-10.1); Chloride 106 mmol/L (98-107); Creatinine, Serum 1.25 mg/dL (0.55-1.02); EST Glomerular Filtration Rate 44 mL/min (>60); Est Glom Filt Rate - Afr Amer 53 mL/min (>60); Globulin 3.2 g/dL (2.2-4.2); Glucose 143 mg/dL (74-106); Potassium 3.7 mmol/L (3.5-5.1); Protein, Total 7.1 g/dL (6.4-8.2); Sodium Level 138 mmol/L (136-145)
== END ==
PROVIDERS: PCP Family Medicine Geriatric Medicine; Visit Provider Family Medicine Geriatric Medicine
DX: E55.9 Vitamin D deficiency, unspecified (principal); I10 Essential (primary) hypertension
CPT/HCPCS: 36415; 80053; 82306; 84443; 85025

== ENCOUNTER → 2020-07-21 17:38 | Outpatient (CLI) | payer MEDICARE, OTHER, SELFPAY ==
[2018-10-21 11:00] VITALS: BMI 26.9
--- NOTE | 2020-07-21 17:50 | RAD_ITS ---
STUDY: X-RAY CHEST REASON FOR EXAM: Female, 80 years old. Worsening shortness of breath TECHNIQUE: PA and lateral views of the chest. COMPARISON: 11/24/2015 FINDINGS: The lungs are clear and expanded. There is no demonstrated pleural abnormality. Normal size heart. Normal mediastinum and suni. Normal visualized pulmonary arteries. Normal visualized aortic arch and descending thoracic aorta. There are diffuse degenerative changes of the visualized thoracic spine. Normal visualized ribs, clavicles, and shoulders. There is no demonstrated abnormality of the visualized soft tissue structures of the upper abdomen. RAD/Chest PA and Lateral IMPRESSION: No acute pulmonary process, no interval change Electronically Signed: Sathya Dahl MD at 10:14 EDT , Service support ,
== END ==
PROVIDERS: PCP Family Medicine Geriatric Medicine; Visit Provider Family Medicine Geriatric Medicine
DX: R06.02 Shortness of breath (principal)
CPT/HCPCS: 71046

== ENCOUNTER → 2020-11-10 11:51 | Outpatient (CLI) | payer MEDICARE, OTHER, SELFPAY ==
[2020-11-10 12:20] LABS: Absolute Lymphocyte Count 4.15 X10^3/uL (0.83-4.51); Absolute Neutrophil Count 6.1 X10^3/uL (2.0-7.7); Basophil# 0.08 X10^3/uL; Basophil% 0.7 % (0-1); Eosinophil# 0.37 X10^3/uL; Eosinophils% 3.2 % (0-5); Hematocrit 41.9 % (37-47); Hemoglobin 14.2 g/dL (12.0-15.0); Lymphocyte # 4.15 X10^3/ul (0.83-4.51); Mean Corp Hgb Conc 33.9 g/dL (32-36); Mean Corpuscular Hgb 30.1 pg (27.0-32.0); Monocyte# 0.81 X10^3/uL; NRBC Flagged by Analyzer 0 % (0-5); Neutrophil # 6.09 X10^3/uL (2.7-7.7); Neutrophil % 52.8 % (47-70); Platelet Count 299 K/mm3 (150-450); RBC Distribution Width CV 11.9 % (11.6-14.6); Red Blood Count 4.71 M/mm3 (4.2-5.4); White Blood Count 11.5 K/mm3 (4.4-11.0)
[2020-11-10 12:51] LABS: Vitamin D,25 Hydroxy 28.2 ng/mL
[2020-11-10 12:54] LABS: ALB/GLOB Ratio 1.1 RATIO (0.9-2.4); AST(SGOT) 20 U/L (15-37); Alanine Aminotransfer ALT/SGPT 23 U/L (13-56); Albumin, Serum 3.6 g/dL (3.2-5.0); Alkaline Phosphatase 68 U/L (45-117); Anion Gap 7 (5-15); BUN 20 mg/dL (7-18); BUN/Creat Ratio 15.6 RATIO (10-20); Calcium,Total 9.8 mg/dL (8.5-10.1); Chloride 104 mmol/L (98-107); Creatinine, Serum 1.28 mg/dL (0.55-1.02); EST Glomerular Filtration Rate 43 mL/min (>60); Est Glom Filt Rate - Afr Amer 51 mL/min (>60); Globulin 3.3 g/dL (2.2-4.2); Glucose 124 mg/dL (74-106); Potassium 3.9 mmol/L (3.5-5.1); Protein, Total 6.9 g/dL (6.4-8.2); Sodium Level 140 mmol/L (136-145); Thyroid Stim Hormone (TSH) 0.82 uIU/mL (0.358-3.74)
== END ==
PROVIDERS: PCP Family Medicine Geriatric Medicine; Visit Provider Family Medicine Geriatric Medicine
DX: E55.9 Vitamin D deficiency, unspecified (principal); I10 Essential (primary) hypertension
CPT/HCPCS: 36415; 80053; 82306; 84443; 85025

== ENCOUNTER 2021-04-11 11:09 | Outpatient (CLI) | payer MEDICARE, OTHER, SELFPAY ==
[2021-04-11] MEDS: Lidocaine 2% (5ml sdv) 5 ML VIAL.MPF INFILT (11:00)
[2021-04-11] MEDS: Lidocaine 1% (5 ml sdv) 5 ML Vial 4 ML OPERA.SITE (11:00)
[2021-04-11] MEDS: Betamethasone/Betamethasone 30 MG/5 ML Vial 12 MG INTRAARTIC (11:00)
--- NOTE | 2021-04-11 11:25 | RAD_ITS ---
PROCEDURE: Fluoroscopic guided right shoulder injection. DATE: 04/11/2021. INDICATION: Female, 80 years old. Chronic shoulder pain. PHYSICIAN: Mendoza Galloway M.D. MEDICATIONS: 4 mg of BETAMETHASONE and 4 cc of 1% LIDOCAINE. 2% Lidocaine administered subcutaneously for local anesthesia. ACCESS SITE: Right shoulder. NEEDLE: 22-gauge spinal needle. FLUOROSCOPY TIME (if supplied): (0:30) minutes/seconds. One image was obtained. FINDINGS: The risks, benefits, and alternatives to the procedure were explained to the patient. The specific risks of bleeding, infection, and neurovascular injury were detailed and accepted. Witnessed informed consent was obtained. A 22-gauge spinal needle was positioned under radiographic fluoroscopic localization. Approximately 2 cc of ISOVUE-300 instilled for localization purposes. Medication was then injected. The patient tolerated the procedure well without any immediate complications. RAD/Inj/Asp [place] Jt Should/Hip/Knee IMPRESSION: 1. Successful fluoroscopic guided right shoulder injection. Electronically Signed: Mendoza Galloway MD at 14:13 EST ,
== END 2021-04-11 23:59 | disposition home or self-care (01) ==
LOC: RAD 11:09
PROVIDERS: PCP Family Medicine Geriatric Medicine; Referring Provider Specialist; Visit Provider Specialist
DX: M19.011 Primary osteoarthritis, right shoulder (principal); S46.011A Strain of muscle(s) and tendon(s) of the rotator cuff of right shoulder, initial encounter
CPT/HCPCS: 20610; 77002; J0702

== ENCOUNTER 2021-05-02 13:35 | Outpatient (CLI) | payer MEDICARE, OTHER, SELFPAY ==
[2021-05-02 14:50] LABS: Erythrocyte Sedimentation Rate 3 mm/hr (0-30)
[2021-05-02 15:14] LABS: CRP < 2.90 mg/L (0.0-3.0)
[2021-05-04 13:09] LABS: Anti-Centromere B Ab <0.2 AI (0.0-0.9); Anti-Chromatin <0.2 AI (0.0-0.9); Anti-Jo <0.2 AI (0.0-0.9); Anti-Scleroderma-70 AB 0.2 AI (0.0-0.9); RNP Ab <0.2 AI (0.0-0.9); SJOGREN'S Anti-SS-A test < 0.2 AI (0.0-0.9); SJOGREN'S Anti-SS-B test < 0.2 AI (0.0-0.9); Smith Ab <0.2 AI (0.0-0.9)
[2021-05-04 17:12] LABS: Anti-dsDNA Ab 6 IU/mL (0-9)
[2021-05-08 01:07] LABS: Cytoplasmic Ab (C-ANCA) <1:20 titer (Neg:<1:20); Endomysial Antibody IgA Negative (Negative); Immunoglobulin A 109 mg/dL (64-422); Immunoglobulin E 4 IU/mL (6-495); Immunoglobulin G 634 mg/dL (586-1602)
[2021-05-08 09:25] LABS: Carbohydrate Ag 19-9 2261 12 U/mL (0-35); Immunoglobulin M 35 mg/dL (26-217); Perinuclear Ab (P-ANCA) <1:20 titer (Neg:<1:20); t-Transglutaminase IgA <2 U/mL (0-3)
== END 2021-05-02 23:59 | disposition home or self-care (01) ==
PROVIDERS: PCP Family Medicine Geriatric Medicine; Referring Provider Internal Medicine Gastroenterology; Visit Provider Internal Medicine Gastroenterology
DX: R13.10 Dysphagia, unspecified (principal); R63.4 Abnormal weight loss
CPT/HCPCS: 36415; 82784; 82785; 83516; 85652; 86140; 86225; 86235; 86255; 86256; 86301

== ENCOUNTER 2021-05-06 15:04 | Outpatient (CLI) | payer MEDICARE, OTHER, SELFPAY ==
[2021-05-09 16:01] LABS: Giardia Lamblia, Stool EIA Negative (Negative)
[2021-05-10 15:46] LABS: Calprotectin, Stool 30 ug/g (0-120)
== END 2021-05-06 23:59 | disposition home or self-care (01) ==
PROVIDERS: PCP Family Medicine Geriatric Medicine; Referring Provider Internal Medicine Gastroenterology; Visit Provider Internal Medicine Gastroenterology
DX: R19.7 Diarrhea, unspecified (principal)
CPT/HCPCS: 83993; 87329

== ENCOUNTER 2021-05-11 11:57 | Outpatient (CLI) | payer MEDICARE, OTHER, SELFPAY ==
[2021-05-11 12:30] LABS: Absolute Lymphocyte Count 3.47 X10^3/uL (0.83-4.51); Absolute Neutrophil Count 5.1 X10^3/uL (2.0-7.7); Basophil# 0.06 X10^3/uL; Basophil% 0.6 % (0-1); Eosinophil# 0.22 X10^3/uL; Eosinophils% 2.3 % (0-5); Hematocrit 42.1 % (37-47); Hemoglobin 14.3 g/dL (12.0-15.0); Lymphocyte # 3.47 X10^3/ul (0.83-4.51); Lymphocyte % 36.3 % (19-41); Mean Corpuscular Hgb 30.6 pg (27.0-32.0); Mean Corpuscular Volume 90.1 fL (81-99); Mean Platelet Vol. 10.3 fl (6.2-12.0); Monocyte# 0.74 X10^3/uL; Monocyte% 7.7 % (0-10); NRBC Flagged by Analyzer 0 % (0-5); Neutrophil # 5.06 X10^3/uL (2.7-7.7); Neutrophil % 52.9 % (47-70); Platelet Count 315 K/mm3 (150-450); RBC Distribution Width CV 12.2 % (11.6-14.6); RBC Distribution Width SD 39.5 fl (35.1-43.9); Red Blood Count 4.67 M/mm3 (4.2-5.4); White Blood Count 9.6 K/mm3 (4.4-11.0)
[2021-05-11 13:03] LABS: ALB/GLOB Ratio 1.1 RATIO (0.9-2.4); AST(SGOT) 20 U/L (15-37); Alanine Aminotransfer ALT/SGPT 27 U/L (13-56); Albumin, Serum 3.6 g/dL (3.2-5.0); Alkaline Phosphatase 71 U/L (45-117); Anion Gap 6 (5-15); BUN 20 mg/dL (7-18); BUN/Creat Ratio 16.7 RATIO (10-20); Calcium,Total 9.7 mg/dL (8.5-10.1); Chloride 108 mmol/L (98-107); EST Glomerular Filtration Rate 46 mL/min (>60); Est Glom Filt Rate - Afr Amer 55 mL/min (>60); Globulin 3.3 g/dL (2.2-4.2); Glucose 165 mg/dL (74-106); Potassium 3.5 mmol/L (3.5-5.1); Protein, Total 6.9 g/dL (6.4-8.2); Sodium Level 141 mmol/L (136-145); Thyroid Stim Hormone (TSH) 0.88 uIU/mL (0.358-3.74); Uric Acid 6.1 mg/dL (2.6-6.0)
== END 2021-05-11 23:59 | disposition home or self-care (01) ==
LOC: POLAB3 11:58
PROVIDERS: PCP Family Medicine Geriatric Medicine; Visit Provider Family Medicine Geriatric Medicine
DX: E55.9 Vitamin D deficiency, unspecified (principal); I10 Essential (primary) hypertension; M10.9 Gout, unspecified
CPT/HCPCS: 36415; 80053; 82306; 84443; 84550; 85025

== ENCOUNTER → 2021-07-22 | Outpatient (CLI) | payer MEDICARE, OTHER, SELFPAY | END | disposition home or self-care (01) | LOC: PSN 09:36 | PROVIDERS: PCP Family Medicine Geriatric Medicine; Referring Provider Family Medicine Geriatric Medicine; Visit Provider Family Medicine Geriatric Medicine | DX: R68.83 Chills (without fever) (principal) | CPT/HCPCS: 87426; 87804; 87807; C9803 ==

== ENCOUNTER 2021-07-26 10:47 | Day surgery (SDC) | payer MEDICARE, OTHER, SELFPAY ==
[2021-07-26] VITALS (7 sets, daily range): BP systolic 126–164; BP diastolic 62–75; PULSE 59–68; RESP 16–18; TEMP 36.2–36.7; O2SAT 96–100; BMI 29.6
--- NOTE | 2021-07-26 11:40 | HP.PCM_ITS ---
History and Physical Date of Admission: 07/26/21 JANIA SPRAGUE, is a 80 F who presents to the office today for For initial evaluation. Jania established with this clinic 05.02.21. She suffered a stroke with right hemiparesis early 2016; with PT and OT services she is able to walk and perform most of her ADLs independently. Medical history includes fibromyalgia. Established with [facility] for cardiac issues. Reports that she has a hiatal hernia, GERD and IBS. IBS ? Onset in her teens. diarrhea is the predominant symptom with occurrence 1- 3 times a week with urgency and subsequent incontinence with progression in the last couple of years with urgency and some increased frequency. Immodium utilized and finds this helpful but has constipation for 1-2 days and then returns to normal. She has attempted to identify triggers but has been unsuccessful. Hiatal hernia last seen on EGD last performed about six years prior. She does have issues with GERD. Denies dysphagia but reports coughing when she eats. However, she feels this is related to dry throat. Reflux has been present for the last 6-7 years. She uses Dexilant 60mg PRN and TUMs. Reflux gives her issues about four times a week; she waits for a while to allows reflux to settle and needs Dexilant about six times a month. Family history includes father with colon cancer and mother with pancreatic cancer; both of which we diagnosed later in life. ROS Const Constitutional: No anorexia, fatigue, fever(s), weight change or sleep problems Eyes Eyes: No change in vision ENT ENT: No abnormal hearing, difficulty swallowing, mouth lesions, tongue swelling or throat swelling Resp Respiratory: No cough or shortness of breath Cardio Cardiology: No chest pain at rest, chest pain with exertion, shortness of breath or dyspnea on exertion Gastro GI: No difficulty swallowing Genitourinary-Female: No difficulty urinating or burning urination Musc Musculoskeletal: No joint pain, joint swelling, muscle weakness or decreased muscle mass Skin Skin: No hair loss in leg, yellowing of the eye, itchy eyes, rash, skin ulcer or skin swelling Neuro Neurology: No abnormal hearing, abnormal movements, confusion, unsteady gait/balance or memory loss Psych Psychiatric: No anxiety, No confusion and No memory loss Endo Endocrine: No fatigue or weight change Aller/Imm Allergy/Immunologic: No itchy eyes, throat swelling or tongue swelling Gómez/Lymp Hematologic/Lymphatic: No easy bleeding, easy bruising or enlarged lymph nodes Exam Const General: cooperative and comfortable Nutritional Appearance: average body habitus and well nourished HENMT Head: normal to inspection Ears: hearing grossly normal bilaterally Nose: external nose normal Face and sinus: normal facial exam Mouth: oral mucosae normal Throat: posterior oropharynx normal Eyes General: appearance normal, both eyes and all related structures Neck Neck: normal visual inspection Chest Chest palpation & inspection: normal inspection of the chest and normal palpation of entire chest wall Resp Effort & Inspection: normal respiratory effort Auscultation: Bilateral: Clear to Auscultation Cardio Palpation: normal PMI Rate: regular rate Rhythm: regular rhythm GI Inspection: normal to inspection Auscultation: normal bowel sounds Percussion: normal to percussion Palpation: no hepatosplenomegaly Skin General: no rashes or lesions noted Neuro General: patient alert Extrem General: normal to inspection Psych Affect: normal affect Quality Reporting Tobacco Screening ([facility] 138) Smoking Status: Never smoker Assessment and Plan Assessment and Plan (1) Irritable bowel syndrome: Plan - Dr. Andino Friend, DO: She is not having any symptoms of irritable bowel syndrome at this time. She does have occasional diarrhea which causes more diarrhea. We will evaluate her small bowel for any signs of inflammatory bowel disease. (2) Family history of colon cancer: Status: Acute Plan - Dr. Sina Bloom, DO: We will perform a colonoscopy because of family history of colon cancer and personal history of polyps. (3) Hiatal hernia: Status: Acute Plan - Dr. Sina Bloom, DO: We will evaluate her hiatal hernia I have re-examined the patient. There are no clinical changes since date of exam.
--- NOTE | 2021-07-26 12:00 | EGD_PTH ---
PATIENT: JANIA SPRAGUE LOC: EN U#:[id number] AGE/SX: 81/F ROOM: RE07/26/[address]: Dr. Sina Bloom DO : 1940 BED: DIS: 07/26/2021 SPEC #: [id number] RECD: 07/26/21 17:00 STATUS: ISMAEL MARY BETH #: [id number] JYOTI: 07/26/21 12:[address]: Sina Bloom DEPT: SURGICAL PATHOLOGY RECD BY: Linda Cisneros ENTERED: 07/27/21 11:28 SP TYPE: EGD BIOPSY OT DR: Dr. Brandon March MD Tissues: A - Duodenum, NOS B - Gastric mucous membrane C - Gastric mucous membrane D - Esophagus, NOS E - COLON BIOPSY F - Sigmoid colon biopsy G - Sigmoid colon biopsy Procedures: Special Stain Group II Surgery Specimen Level IV Alcian Blue/PAS (control) HEADER OPERATION: Colonoscopy, biopsy, polypectomy, EGD with biopsies ([facility] [place] PRE-OP DIAGNOSIS: Irritable bowel syndrome, hiatal hernia TISSUE SUBMITTED: A ? Duodenum biopsy, B ? Antrum biopsy for H. pylori and path, C ? Gastric body biopsy, D ? Distal esophagus biopsy, E ? Polyp hepatic flexure biopsy, F ? Sigmoid polyp biopsy, G ? Sigmoid stricture biopsy MICROSCOPIC DIAGNOSIS A. Duodenum, biopsy: Fragments of duodenal mucosa, no pathologic diagnosis. B. Antrum, biopsy: Mild gastritis. See microscopic description and comment. C. Gastric body, biopsy: Minimal gastritis. See microscopic description. D. Distal esophagus, biopsy: Fragments of gastric mucosa with mild chronic inflammation. Intestinal metaplasia (goblet cell metaplasia) not identified. See comment. E. Polyp at hepatic flexure, biopsy: Fragments of tubular adenoma. F. Sigmoid polyp, biopsy: Tubular adenoma. G. Sigmoid stricture, biopsy: Fragments of colonic mucosa, no pathologic diagnosis. SJ:jerri 07/28/2021 COMMENT B. The results of immunohistochemistry for Helicobacter pylori will be reported separately ([id number]). D. Alcian blue/PAS stain with matched control is used in the evaluation of the specimen. MICROSCOPIC DESCRIPTION Slides are reviewed. B. The specimen shows fragments of gastric mucosa with chronic inflammatory cell infiltrates in the lamina propria consisting of lymphocytes and plasma cells, consistent with mild chronic gastritis. C. The specimen shows fragments of gastric mucosa with chronic inflammatory cell infiltrates in the lamina propria consisting of lymphocytes and plasma cells, consistent with minimal chronic gastritis. GROSS DESCRIPTION A - Received in fixative is one container labeled with the patient's name and designated duodenum biopsy. The specimen consists of two irregular fragments of light edwards soft tissue that in aggregate measure 0.7 x 0.5 x 0.1 cm. The specimen is totally submitted in one cassette. B - Received in fixative is one container labeled with the patient's name and designated gastric antrum. The specimen consists of two irregular fragments of light edwards soft tissue that in aggregate measure 0.8 x 0.5 x 0.1 cm. The specimen is totally submitted in one cassette. C - Received in fixative is one container labeled with the patient's name and designated gastric body biopsy. The specimen consists of two irregular fragments of light edwards soft tissue that in aggregate measure 0.7 x 0.3 x 0.1 cm. The specimen is totally submitted in one cassette. D - Received in fixative is one container labeled with the patient's name and designated distal esophagus. The specimen consists of two irregular fragments of light edwards soft tissue that in aggregate measure 0.7 x 0.5 x 0.1 cm. The specimen is totally submitted in one cassette. E - Received in fixative is one container labeled with the patient's name and designated polyp at hepatic flexure biopsy. The specimen consists of two irregular fragments of light edwards soft tissue that in aggregate measure 0.7 x 0.6 x 0.1 cm. The specimen is totally submitted in one cassette. F - Received in fixative is one container labeled with the patient's name and designated sigmoid polyp biopsy. The specimen consists of one irregular fragment of light edwards soft tissue that measures 0.3 x 0.3 x 0.1 cm. The specimen is totally submitted in one cassette. G - Received in fixative is one container labeled with the patient's name and designated sigmoid stricture biopsy. The specimen consists of two irregular fragments of light edwards soft tissue that in aggregate measure 0.5 x 0.5 x 0.1 cm. The specimen is totally submitted in one cassette. / AM:jerri 07/27/2021 TC:1 CPT: 33615 x7, 06728
--- NOTE | 2021-07-26 12:00 | IMM_PTH ---
PATIENT: JANIA SPRAGUE LOC: EN U#:[id number] AGE/SX: 81/F ROOM: RE07/26/[address]: Dr. Sina Bloom DO : 1940 BED: DIS: 07/26/2021 SPEC #: [id number] RECD: 07/27/21 15:00 STATUS: ISMAEL RESushila #: [id number] JYOTI: 07/26/21 12:[address]: Sina Bloom DEPT: IMMUNOHISTOCHEMISTRY RECD BY: Dixie Croft ENTERED: 07/27/21 15:01 SP TYPE: IMMUNO OTHR DR: Dr. Brandon March MD Tissues: B - Stomach, NOS Procedures: H Pylori (initial) PHYSICIAN & INSTITUTION [place] [id number] SPECIMEN INFORMATION: Tissue Source: B ? Antrum biopsy Clinical Info: Irritable bowel syndrome, hiatal hernia Specimen Number: [id number] CPT code: 42172 METHODOLOGY: Deparaffinized sections of prefer/formalin-fixed tissue or PAP/DQ stained slides are incubated with monoclonal/polyclonal antibodies/oligonucleotide probes. Localization is made via biotin free immunoperoxidase method. Appropriate controls are performed and reacted as expected. Results on target cell population are indicated in the following table: RESULTS: ANTIBODY / CLONE RESULT Block B H Pylori (polyclonal) negative These tests were developed and their performance characteristics determined by [facility]. They may not have been cleared or approved by the U.S. Food and Drug Administration. The FDA has determined that such clearance or approval is not necessary. The above immunohistochemical/dualISH markers are ordered and reviewed by the Pathologist. INTERPRETATION: B. Antrum, biopsy: Negative for Helicobacter pylori organisms. SJ:jerri 07/28/2021
[2021-07-26] MEDS: Lactated Ringers 1,000 ML 15 ML IV (12:04)
--- NOTE | 2021-07-26 13:17 | OP.EGD_ITS ---
Patient Name: Carley Seals Procedure Date: 07/26/2021 12:04 PM Date of : 1940 Age: 81 Procedure: Upper GI endoscopy Indications: Epigastric abdominal pain, Failure to respond to medical treatment Providers: Sina Bloom DO Referring MD: Brandon March MD Medicines: Monitored Anesthesia Care Patient Profile: This is an 81 year old female. Refer to note in patient chart for documentation of history and physical. Patient has symptoms of acute abdominal cramping, chronic epigastric abdominal pain and chronic nausea. Complications: No immediate complications. Procedure: Pre-Anesthesia Assessment: - Prior to the procedure, a History and Physical was performed, and patient medications and allergies were reviewed. The patient is competent. The risks and benefits of the procedure and the sedation options and risks were discussed with the patient. All questions were answered and informed consent was obtained. Patient identification and proposed procedure were verified by the physician. Mental Status Examination: alert and oriented. Airway Examination: normal oropharyngeal airway and neck mobility. Respiratory Examination: clear to auscultation. CV Examination: normal. Prophylactic Antibiotics: The patient does not require prophylactic antibiotics. Prior Anticoagulants: The patient has taken no previous anticoagulant or antiplatelet agents. After reviewing the risks and benefits, the patient was deemed in satisfactory condition to undergo the procedure. The anesthesia plan was to use moderate sedation / analgesia (conscious sedation). Immediately prior to administration of medications, the patient was re-assessed for adequacy to receive sedatives. The heart rate, respiratory rate, oxygen saturations, blood pressure, adequacy of pulmonary ventilation, and response to care were monitored throughout the procedure. The physical status of the patient was re-assessed after the procedure. After obtaining informed consent, the endoscope was passed under direct vision. Throughout the procedure, the patient's blood pressure, pulse, and oxygen saturations were monitored continuously. The colonoscope was introduced through the mouth, and advanced to the second part of duodenum. The upper GI endoscopy was accomplished without difficulty. The patient tolerated the procedure well. Moderate Sedation: Moderate (conscious) sedation was administered by the endoscopy nurse and supervised by the endoscopist. The following parameters were monitored: oxygen saturation, heart rate, blood pressure, and response to care. Scope In: 12:23:10 PM Scope Out: 12:28:37 PM Total Procedure Duration Time 0 hours 5 minutes 27 seconds Findings: LA Grade A (one or more mucosal breaks less than 5 mm, not extending between tops of 2 mucosal folds) esophagitis with no bleeding was found 35 to 37 cm from the incisors. Biopsies were taken with a cold forceps for histology. Verification of patient identification for the specimen was done. Estimated blood loss was minimal. A medium-sized hiatal hernia was present. Scattered moderate inflammation characterized by congestion (edema), erosions, erythema and friability was found in the gastric body, in the gastric antrum and in the prepyloric region of the stomach. Biopsies were taken with a cold forceps for histology. Verification of patient identification for the specimen was done. Estimated blood loss was minimal. Diffuse mildly erythematous mucosa without active bleeding and with no stigmata of bleeding was found in the duodenal bulb, in the first portion of the duodenum and in the second portion of the duodenum. Biopsies were taken with a cold forceps for histology. Verification of patient identification for the specimen was done. Estimated blood loss was minimal. Impression: - LA Grade A reflux esophagitis. Biopsied. - Medium-sized hiatal hernia. - Gastritis. Biopsied. - Erythematous duodenopathy. Biopsied. Recommendation: - Discharge patient to home. - Resume previous diet. - Continue present medications. - Await pathology results. Procedure Code(s): --- Professional --- 60900, Esophagogastroduodenoscopy, flexible, transoral; with biopsy, single or multiple CPT copyright 2017 [employer]. All rights reserved. The codes documented in this report are preliminary and upon inpatient coder review may be revised to meet current compliance requirements. Sina Bloom DO 07/26/2021 1:16:54 PM This report has been signed electronically. Number of Addenda: 1 Note Initiated On: 07/26/2021 12:04 PM Addendum Number: 1 Addendum Date: 11/15/2021 6:23:04 AM MAC was used as sedation for this procedure. Sina Bloom DO 11/15/2021 6:23:08 AM This report has been signed electronically.
--- NOTE | 2021-07-26 13:18 | OP.CCLET_ITS ---
11/15/2021 Brandon March MD [address] [place] [address] Re : Upper GI endoscopy procedure for Carley Riverakins Dear Dr. March This procedure was performed on Monday, July 26, 2021. My impressions and recommendations are as follows: Impressions : - LA Grade A reflux esophagitis. Biopsied. - Medium-sized hiatal hernia. - Gastritis. Biopsied. - Erythematous duodenopathy. Biopsied. Recommendations : - Discharge patient to home. - Resume previous diet. - Continue present medications. - Await pathology results. My findings are described in the full procedure note, which is enclosed. If I can be of further assistance, please feel free to contact me at . Sincerely, Sina Bloom, 07/26/2021 1:16:54 PM This report has been signed electronically.
--- NOTE | 2021-07-26 13:23 | OP.COLON_ITS ---
Patient Name: Carley Seals Procedure Date: 07/26/2021 12:30 PM Date of : 1940 Age: 81 Procedure: Colonoscopy Indications: Evaluation of unexplained GI bleeding Providers: Sina Bloom DO Referring MD: Brandon March MD Medicines: Monitored Anesthesia Care Patient Profile: This is an 81 year old female. Refer to note in patient chart for documentation of history and physical. Patient has symptoms of acute abdominal cramping, chronic epigastric abdominal pain and chronic nausea. Last Colonoscopy: date unknown. Unable to locate last colonoscopy report. Complications: No immediate complications. Procedure: Pre-Anesthesia Assessment: - Prior to the procedure, a History and Physical was performed, and patient medications and allergies were reviewed. The patient is competent. The risks and benefits of the procedure and the sedation options and risks were discussed with the patient. All questions were answered and informed consent was obtained. Patient identification and proposed procedure were verified by the physician. Mental Status Examination: alert and oriented. Airway Examination: normal oropharyngeal airway and neck mobility. Respiratory Examination: clear to auscultation. CV Examination: normal. Prophylactic Antibiotics: The patient does not require prophylactic antibiotics. Prior Anticoagulants: The patient has taken no previous anticoagulant or antiplatelet agents. After reviewing the risks and benefits, the patient was deemed in satisfactory condition to undergo the procedure. The anesthesia plan was to use moderate sedation / analgesia (conscious sedation). Immediately prior to administration of medications, the patient was re-assessed for adequacy to receive sedatives. The heart rate, respiratory rate, oxygen saturations, blood pressure, adequacy of pulmonary ventilation, and response to care were monitored throughout the procedure. The physical status of the patient was re-assessed after the procedure. After I obtained informed consent, the scope was passed under direct vision. Throughout the procedure, the patient's blood pressure, pulse, and oxygen saturations were monitored continuously. The colonoscope was introduced through the anus and advanced to the terminal ileum. The colonoscopy was performed without difficulty. The patient tolerated the procedure well. The quality of the bowel preparation was good. Moderate Sedation: Moderate (conscious) sedation was personally administered by an anesthesia professional. The following parameters were monitored: oxygen saturation, heart rate, blood pressure, and response to care. Total physician intraservice time was 15 minutes. Scope In: 12:34:22 PM Scope Withdrawal Time 0 hours 11 minutes 32 seconds Scope Out: 1:05:07 PM Total Procedure Duration Time 0 hours 30 minutes 45 seconds Findings: The perianal and digital rectal examinations were normal. Multiple small and large-mouthed diverticula were found in the recto-sigmoid colon, sigmoid colon and descending colon. There was evidence of recent bleeding from the diverticular opening. A benign-appearing, intrinsic moderate stenosis measuring 2 cm (in length) was found in the recto-sigmoid colon and was traversed. Biopsies were taken with a cold forceps for histology. Verification of patient identification for the specimen was done. Estimated blood loss was minimal. Two sessile polyps were found in the sigmoid colon and hepatic flexure. The polyps were 1 to 2 mm in size. These polyps were removed with a cold snare. Resection and retrieval were complete. Verification of patient identification for the specimen was done. Estimated blood loss was minimal. The terminal ileum appeared normal. Impression: - Mild diverticulosis in the recto-sigmoid colon, in the sigmoid colon and in the descending colon. There was evidence of recent bleeding from the diverticular opening. 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 Biopsied. - Two 1 to 2 mm polyps in the sigmoid colon and at the hepatic flexure, removed with a cold snare. Resected and retrieved. - The examined portion of the ileum was normal. Recommendation: - Discharge patient to home. - Resume previous diet. - Continue present medications. - Await pathology results. - Repeat colonoscopy. Procedure Code(s): --- Professional --- 03480, Colonoscopy, flexible; with removal of tumor(s), polyp(s), or other lesion(s) by snare technique 89308, 59, Colonoscopy, flexible; with biopsy, single or multiple CPT copyright 2017 [employer]. All rights reserved. The codes documented in this report are preliminary and upon ring maker review may be revised to meet current compliance requirements. Sina Bloom DO 07/26/2021 1:22:34 PM This report has been signed electronically. Number of Addenda: 1 Note Initiated On: 07/26/2021 12:30 PM Addendum Number: 1 Addendum Date: 11/15/2021 6:23:16 AM MAC was used as sedation for this procedure. Sina Bloom DO 11/15/2021 6:23:24 AM This report has been signed electronically.
--- NOTE | 2021-07-26 13:23 | OP.CCLET_ITS ---
11/15/2021 Brandon March MD [address] [place] [address] Re : Colonoscopy procedure for Carley Riverakins Dear Dr. March This procedure was performed on Monday, July 26, 2021. My impressions and recommendations are as follows: Impressions : - Mild diverticulosis in the recto-sigmoid colon, in the sigmoid colon and in the descending colon. There was evidence of recent bleeding from the diverticular opening. 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 Biopsied. - Two 1 to 2 mm polyps in the sigmoid colon and at the hepatic flexure, removed with a cold snare. Resected and retrieved. - The examined portion of the ileum was normal. Recommendations : - Discharge patient to home. - Resume previous diet. - Continue present medications. - Await pathology results. - Repeat colonoscopy. My findings are described in the full procedure note, which is enclosed. If I can be of further assistance, please feel free to contact me at . Sincerely, Sina Bloom, 07/26/2021 1:22:34 PM This report has been signed electronically.
== END 2021-07-26 14:16 | disposition home or self-care (01) ==
LOC: EN 10:47 → AC 10:48
PROVIDERS: PCP Family Medicine Geriatric Medicine; Referring Provider Family Medicine Geriatric Medicine; Visit Provider Internal Medicine Gastroenterology
PROC: 0DJD8ZZ Inspection of Lower Intestinal Tract, Via Natural or Artificial Opening Endoscopic (ICD-10-PCS; CPT 45378; principal; 2021-07-26 11:55)
DX: D12.5 Benign neoplasm of sigmoid colon (principal); K56.699 Other intestinal obstruction unspecified as to partial versus complete obstruction; K29.50 Unspecified chronic gastritis without bleeding; D12.3 Benign neoplasm of transverse colon; K57.30 Diverticulosis of large intestine without perforation or abscess without bleeding; K44.9 Diaphragmatic hernia without obstruction or gangrene; K31.89 Other diseases of stomach and duodenum; K21.00 Gastro-esophageal reflux disease with esophagitis, without bleeding; K58.9 Irritable bowel syndrome, unspecified; R63.4 Abnormal weight loss; F32.A Depression, unspecified; M19.90 Unspecified osteoarthritis, unspecified site; E78.00 Pure hypercholesterolemia, unspecified; I10 Essential (primary) hypertension; Z79.82 Long term (current) use of aspirin; Z79.899 Other long term (current) drug therapy; Z86.73 Personal history of transient ischemic attack (TIA), and cerebral infarction without residual deficits; Z80.0 Family history of malignant neoplasm of digestive organs; Z68.29 Body mass index [BMI] 29.0-29.9, adult
CPT/HCPCS: 45385; 45380; 43239; 88305; 88313; 88342; J7120; J2405

== ENCOUNTER → 2021-11-09 | Outpatient (CLI) | payer MEDICARE, OTHER, SELFPAY ==
[2021-11-09 12:20] LABS: Absolute Lymphocyte Count 3.57 X10^3/uL (0.83-4.51); Absolute Neutrophil Count 5.9 X10^3/uL (2.0-7.7); Basophil# 0.06 X10^3/uL; Basophil% 0.6 % (0-1); Eosinophil# 0.17 X10^3/uL; Eosinophils% 1.6 % (0-5); Hematocrit 43.9 % (37-47); Lymphocyte # 3.57 X10^3/ul (0.83-4.51); Lymphocyte % 33.9 % (19-41); Mean Corp Hgb Conc 34.2 g/dL (32-36); Mean Corpuscular Hgb 31.3 pg (27.0-32.0); Mean Corpuscular Volume 91.5 fL (81-99); Mean Platelet Vol. 10.3 fl (6.2-12.0); Monocyte# 0.77 X10^3/uL; Monocyte% 7.3 % (0-10); NRBC Flagged by Analyzer 0 % (0-5); Neutrophil # 5.93 X10^3/uL (2.7-7.7); Neutrophil % 56.3 % (47-70); Platelet Count 312 K/mm3 (150-450); RBC Distribution Width SD 40.3 fl (35.1-43.9); White Blood Count 10.5 K/mm3 (4.4-11.0)
[2021-11-09 12:40] LABS: Vitamin D,25 Hydroxy 26.6 ng/mL
[2021-11-09 12:51] LABS: ALB/GLOB Ratio 1.2 RATIO (0.9-2.4); AST(SGOT) 25 U/L (15-37); Alanine Aminotransfer ALT/SGPT 27 U/L (13-56); Albumin, Serum 3.9 g/dL (3.2-5.0); Alkaline Phosphatase 71 U/L (45-117); Anion Gap 7 (5-15); BUN 26 mg/dL (7-18); BUN/Creat Ratio 21.3 RATIO (10-20); Calcium,Total 10.4 mg/dL (8.5-10.1); Chloride 106 mmol/L (98-107); Creatinine, Serum 1.22 mg/dL (0.55-1.02); EST Glomerular Filtration Rate 45 mL/min (>60); Est Glom Filt Rate - Afr Amer 54 mL/min (>60); Globulin 3.3 g/dL (2.2-4.2); Glucose 117 mg/dL (74-106); Potassium 4.4 mmol/L (3.5-5.1); Protein, Total 7.2 g/dL (6.4-8.2); Sodium Level 140 mmol/L (136-145); Thyroid Stim Hormone (TSH) 0.96 uIU/mL (0.358-3.74); Uric Acid 7.7 mg/dL (2.6-6.0)
== END | disposition home or self-care (01) ==
LOC: POLAB3 09:15
PROVIDERS: PCP Family Medicine Geriatric Medicine; Visit Provider Family Medicine Geriatric Medicine
DX: E55.9 Vitamin D deficiency, unspecified (principal); I10 Essential (primary) hypertension; M10.9 Gout, unspecified
CPT/HCPCS: 36415; 80053; 82306; 84443; 84550; 85025

== ENCOUNTER → 2022-01-19 | Outpatient (CLI) | payer MEDICARE, OTHER, SELFPAY ==
--- NOTE | 2022-01-19 13:57 | ECHOD_ITS ---
Version 2 Reason For Study: Arrhythmia Procedure This was a 2D Doppler, Color Flow transthoracic echocardiogram. Exam performed in department. Left Ventricle Normal LV size. Moderate concentric left ventricular hypertrophy. Left ventricular systolic function is normal. The estimated ejection fraction is 60 %. Stage 1 diastolic dysfunction. No regional wall motion abnormalities noted. Right Ventricle Normal RV size. Normal systolic function. Atria Normal left atrium. Normal right atrium. Bubble contrast study negative for right to left interatrial shunt. Mitral Valve Normal mitral valve. Tricuspid Valve Normal tricuspid valve. Aortic Valve Trisinus/trileaflet aortic valve. Pulmonic Valve Normal pulmonic valve. Great Vessels Normal aortic root. The pulmonary artery is normal size. Normal inferior vena cava. Pericardium/Pleural No pericardial effusion. Medication 22 gauge I.V. with prn adaptor inserted into left arm. Performed a rapid injection of agitated mix of 9 cc saline and 1cc air to assess for atrial septal defect. MMode/2D Measurements & Calculations LVIDd: 3.3 cm IVSd: 1.5 cm Ao root diam: 3.1 cm LVIDs: 1.8 cm LVPWd: 1.4 cm RVDd: 2.8 cm FS: 44.9 % LAV(MOD-bp): 26.6 ml LVAd ap4: 19.2 cm2 LVAd ap2: 14.2 cm2 LAV(MOD-bp) Indexed: 15.2 ml/m2 LVLd ap4: 6.5 cm LVLd ap2: 6.3 cm LAV(MOD-sp2): 27.1 ml EDV(MOD-sp4): 48.0 ml EDV(MOD-sp2): 27.1 ml LAV(MOD-sp4): 24.6 ml EDV(sp4-el): 48.1 ml EDV(sp2-el): 27.1 ml LVAs ap4: 9.0 cm2 LVAs ap2: 7.5 cm2 LVLs ap4: 6.4 cm LVLs ap2: 6.0 cm ESV(MOD-sp4): 11.3 ml ESV(MOD-sp2): 9.3 ml ESV(sp4-el): 10.9 ml ESV(sp2-el): 8.0 ml EF(MOD-sp4): 76.4 % EF(MOD-sp2): 65.6 % EF(sp4-el): 77.4 % SV(MOD-sp4): 36.6 ml SV(MOD-sp2): 17.7 ml SV(sp4-el): 37.2 ml LA A4 area: 11.5 cm2 LA dimension(2D): 4.0 cm RA A4 area: 7.4 cm2 Time Measurements MV dec time: 0.32 sec Doppler Measurements & Calculations MV E max andrea: 59.9 cm/sec Lat Peak E' Andrea: 3.9 cm/sec Med Peak E' Andrea: 2.7 cm/sec MV A max andrea: 93.3 cm/sec E/E' lat: 15.5 E/E' med: 22.2 MV E/A: 0.64 Ao V2 max: 140.8 cm/sec LV V1 max: 106.0 cm/sec MV dec slope: 190.1 cm/sec2 Ao max P.9 mmHg LV V1 max P.5 mmHg PA V2 max: 101.0 cm/sec TR max andrea: 213.6 cm/sec PA V2 mean: 76.8 cm/sec TR max P.3 mmHg ECHO/Echo Complete Interpretation Summary Normal LV size. Left ventricular systolic function is normal. The estimated ejection fraction is 60 %. Bubble contrast study negative for right to left interatrial shunt. Stage 1 diastolic dysfunction. Moderate concentric left ventricular hypertrophy. Ordering Physician: Bennie Landrum Referring Physician: Brandon March Chi Performed By: Heather Bhatti RDCS
== END | disposition home or self-care (01) ==
LOC: CVS 13:55
PROVIDERS: PCP Family Medicine Geriatric Medicine; Referring Provider Internal Medicine Cardiovascular Disease; Visit Provider Internal Medicine Cardiovascular Disease
DX: I63.412 Cerebral infarction due to embolism of left middle cerebral artery (principal)
CPT/HCPCS: 93306; A4216

== ENCOUNTER → 2022-01-23 | Outpatient (CLI) | payer MEDICARE, OTHER, SELFPAY | END | disposition home or self-care (01) | LOC: PSN 08:52 | PROVIDERS: PCP Family Medicine Geriatric Medicine; Referring Provider Internal Medicine Cardiovascular Disease; Visit Provider Internal Medicine Cardiovascular Disease | DX: R00.2 Palpitations (principal) | CPT/HCPCS: 93225; 93226 ==

== ENCOUNTER → 2022-03-22 | Outpatient (CLI) | payer MEDICARE, OTHER, SELFPAY ==
[2022-03-22 11:18] LABS: Erythrocyte Sedimentation Rate < 1 mm/hr (0-30)
[2022-03-22 11:56] LABS: ALB/GLOB Ratio 1.3 RATIO (0.9-2.4); AST(SGOT) 25 U/L (15-37); Alanine Aminotransfer ALT/SGPT 21 U/L (13-56); Albumin, Serum 3.9 g/dL (3.2-5.0); Alkaline Phosphatase 72 U/L (45-117); Anion Gap 5 (5-15); BUN 21 mg/dL (7-18); BUN/Creat Ratio 19.1 RATIO (10-20); CPK Total, Creatine Kinase 72 U/L (26-192); CRP < 2.90 mg/L (0.0-3.0); Calcium,Total 10.5 mg/dL (8.5-10.1); Chloride 109 mmol/L (98-107); EST Glomerular Filtration Rate 50 mL/min (>60); Est Glom Filt Rate - Afr Amer 61 mL/min (>60); Globulin 3.1 g/dL (2.2-4.2); Glucose 107 mg/dL (74-106); Potassium 3.6 mmol/L (3.5-5.1); Sodium Level 142 mmol/L (136-145); Uric Acid 5.8 mg/dL (2.6-6.0)
[2022-03-23 16:11] LABS: Aldolase 5.2 U/L (3.3-10.3)
[2022-03-28 15:08] LABS: Almond <0.10 kU/L (Class 0); Barley, Whole Grain <0.10 kU/L (Class 0); Beef <0.10 kU/L (Class 0); Carrot <0.10 kU/L (Class 0); Casein <0.10 kU/L (Class 0); Cashew <0.10 kU/L (Class 0); Chicken <0.10 kU/L (Class 0); Chocolate <0.10 kU/L (Class 0); Clam <0.10 kU/L (Class 0); Codfish <0.10 kU/L (Class 0); Corn <0.10 kU/L (Class 0); Crab <0.10 kU/L (Class 0); Egg, White <0.10 kU/L (Class 0); Egg, Whole <0.10 kU/L (Class 0); Egg, Yolk <0.10 kU/L (Class 0); Garlic <0.10 kU/L (Class 0); Gluten <0.10 kU/L (Class 0); Hazelnut/Filbert <0.10 kU/L (Class 0); Lobster <0.10 kU/L (Class 0); Milk (Cow) <0.10 kU/L (Class 0); Oat <0.10 kU/L (Class 0); Onion <0.10 kU/L (Class 0); Orange <0.10 kU/L (Class 0); Pea <0.10 kU/L (Class 0); Pecan <0.10 kU/L (Class 0); Pork <0.10 kU/L (Class 0); Potato, White <0.10 kU/L (Class 0); Rice <0.10 kU/L (Class 0); Rye <0.10 kU/L (Class 0); Salmon <0.10 kU/L (Class 0); Shrimp <0.10 kU/L (Class 0); Soybean <0.10 kU/L (Class 0); Strawberry <0.10 kU/L (Class 0); Tomato <0.10 kU/L (Class 0); Tuna <0.10 kU/L (Class 0); Walnut, (Food) <0.10 kU/L (Class 0); Wheat <0.10 kU/L (Class 0); Yeast <0.10 kU/L (Class 0)
[2022-03-28 18:22] LABS: Apple <0.10 kU/L (Class 0); Peanut <0.10 kU/L (Class 0)
[2022-03-29 19:07] LABS: Banana <0.10 kU/L (Class 0); Celery <0.10 kU/L (Class 0); Cheddar Cheese <0.10 kU/L (Class 0); Lactalbumin, Alpha <0.10 kU/L (Class 0); Lettuce <0.10 kU/L (Class 0); Peach <0.10 kU/L (Class 0)
[2022-03-31 19:12] LABS: Turkey <0.10 kU/L (Class 0)
[2022-05-23 21:59] LABS: Beef <0.10; Chocolate <0.10
[2022-05-23 22:00] LABS: Corn <0.10; Egg, Whole <0.10; Milk (Cow) <0.10; Peanut <0.10; Pork <0.10; Soybean <0.10; Wheat <0.10
== END | disposition home or self-care (01) ==
LOC: LAB 10:19
PROVIDERS: PCP Family Medicine Geriatric Medicine; Visit Provider Internal Medicine Gastroenterology
DX: K21.9 Gastro-esophageal reflux disease without esophagitis (principal); R19.8 Other specified symptoms and signs involving the digestive system and abdomen
CPT/HCPCS: 36415; 80053; 82085; 82550; 84550; 85652; 86003; 86005; 86140

== ENCOUNTER → 2022-04-18 | Outpatient (CLI) | payer MEDICARE, OTHER, SELFPAY ==
--- NOTE | 2022-04-18 15:26 | BI_ITS ---
MAMMOGRAPHY - BILATERAL SCREENING REASON FOR EXAM: Female, 81 years old. Routine annual screening examination. PERTINENT HISTORY: Grandmother with breast cancer. Remote left needle breast biopsy. TECHNIQUE: Digital bilateral breast bette (3D mammographic acquisition) in the CC and MLO projections. 2-D mediolateral oblique (MLO) and craniocaudad (CC) views of both breasts were obtained. CAD: Full Field Digital Mammography with Computer Added Detection was performed. COMPARISON: Comparison is made with prior study dated September 28, 2016 and September 27, 2015. FINDINGS: Breast Composition: There are scattered areas of fibroglandular density. There are no dominant masses or suspicious calcifications. Stable small benign-appearing bilateral axillary lymph nodes. No other significant abnormalities are identified. There has been no significant change since the prior study. BI/SCRN MAMM (CAD)W/BETTE BILAT IMPRESSION: Stable bilateral screening mammogram. Yearly follow-up mammogram recommended. (A) ASSESSMENT CATEGORY: BIRADS Category 2: Benign. A letter regarding these results will be sent to the patient by the facility within 30 days. Approximately 10% of breast cancers are not detected by mammography. A normal mammogram should not delay biopsy of a clinically suspicious abnormality. [id number] Electronically Signed: Mendoza Galloway MD at 17:35 EST ,
== END | disposition home or self-care (01) ==
LOC: OPBI 15:25
PROVIDERS: PCP Family Medicine Geriatric Medicine; Referring Provider Family Medicine Geriatric Medicine; Visit Provider Family Medicine Geriatric Medicine
DX: Z12.31 Encounter for screening mammogram for malignant neoplasm of breast (principal)
CPT/HCPCS: 77063; 77067

== ENCOUNTER → 2022-05-17 | Outpatient (CLI) | payer MEDICARE, OTHER, SELFPAY ==
[2022-05-17 17:27] LABS: Absolute Neutrophil Count 7.7 X10^3/uL (2.0-7.7); Basophil# 0.07 X10^3/uL; Basophil% 0.5 % (0-1); Eosinophils% 1.5 % (0-5); Hemoglobin 15.3 g/dL (12.0-15.0); Lymphocyte % 33.8 % (19-41); Mean Corp Hgb Conc 32.6 g/dL (32-36); Mean Corpuscular Volume 92.2 fL (81-99); Mean Platelet Vol. 10.9 fl (6.2-12.0); Monocyte# 1.02 X10^3/uL; Monocyte% 7.5 % (0-10); NRBC Flagged by Analyzer 0.1 % (0-5); Neutrophil # 7.69 X10^3/uL (2.7-7.7); Neutrophil % 56.4 % (47-70); Platelet Count 299 K/mm3 (150-450); RBC Distribution Width CV 12.3 % (11.6-14.6); RBC Distribution Width SD 42.3 fl (35.1-43.9); White Blood Count 13.6 K/mm3 (4.4-11.0)
[2022-05-17 17:45] LABS: Vitamin D,25 Hydroxy 37.9 ng/mL
[2022-05-17 17:47] LABS: ALB/GLOB Ratio 1.3 RATIO (0.9-2.4); AST(SGOT) 28 U/L (15-37); Alanine Aminotransfer ALT/SGPT 30 U/L (13-56); Albumin, Serum 3.9 g/dL (3.2-5.0); Alkaline Phosphatase 77 U/L (45-117); Anion Gap 9 (5-15); BUN 27 mg/dL (7-18); BUN/Creat Ratio 16.7 RATIO (10-20); Calcium,Total 10.4 mg/dL (8.5-10.1); Chloride 108 mmol/L (98-107); Creatinine, Serum 1.62 mg/dL (0.55-1.02); EST Glomerular Filtration Rate 32 mL/min (>60); Est Glom Filt Rate - Afr Amer 39 mL/min (>60); Glucose 68 mg/dL (74-106); Potassium 3.7 mmol/L (3.5-5.1); Protein, Total 6.9 g/dL (6.4-8.2); Sodium Level 140 mmol/L (136-145); Thyroid Stim Hormone (TSH) 0.94 uIU/mL (0.358-3.74)
== END | disposition home or self-care (01) ==
LOC: POLAB3 14:00
PROVIDERS: PCP Family Medicine Geriatric Medicine; Visit Provider Family Medicine Geriatric Medicine
DX: E55.9 Vitamin D deficiency, unspecified (principal); I10 Essential (primary) hypertension
CPT/HCPCS: 36415; 80053; 82306; 84443; 85025

== ENCOUNTER → 2022-06-21 | Outpatient (CLI) | payer MEDICARE, OTHER, SELFPAY | END | disposition home or self-care (01) | PROVIDERS: PCP Family Medicine Geriatric Medicine; Visit Provider Dermatology | DX: L57.0 Actinic keratosis (principal); L82.0 Inflamed seborrheic keratosis; L29.8 Other pruritus; L53.8 Other specified erythematous conditions; T81.40XA Infection following a procedure, unspecified, initial encounter | CPT/HCPCS: 87070; 87077; 87186; 87205 ==

== ENCOUNTER → 2022-07-14 | Outpatient (CLI) | payer MEDICARE, OTHER, SELFPAY | END | disposition home or self-care (01) | PROVIDERS: PCP Family Medicine Geriatric Medicine; Referring Provider Family Medicine Geriatric Medicine; Visit Provider Family Medicine Geriatric Medicine | DX: R68.83 Chills (without fever) (principal) | CPT/HCPCS: 87426; 87804; 87807; C9803 ==

== ENCOUNTER → 2022-10-11 | Outpatient (CLI) | payer MEDICARE, OTHER, SELFPAY ==
[2022-10-11 17:41] LABS: Absolute Lymphocyte Count 4.06 X10^3/uL (0.83-4.51); Absolute Neutrophil Count 6.8 X10^3/uL (2.0-7.7); Basophil# 0.09 X10^3/uL; Basophil% 0.7 % (0-1); Eosinophil# 0.29 X10^3/uL; Eosinophils% 2.4 % (0-5); Hematocrit 46.6 % (37-47); Hemoglobin 15.2 g/dL (12.0-15.0); Lymphocyte # 4.06 X10^3/ul (0.83-4.51); Mean Corp Hgb Conc 32.6 g/dL (32-36); Mean Corpuscular Hgb 30.3 pg (27.0-32.0); Mean Platelet Vol. 10.3 fl (6.2-12.0); Monocyte# 1.06 X10^3/uL; Monocyte% 8.6 % (0-10); NRBC Flagged by Analyzer 0 % (0-5); Neutrophil # 6.75 X10^3/uL (2.7-7.7); Platelet Count 330 K/mm3 (150-450); RBC Distribution Width SD 41.3 fl (35.1-43.9); Red Blood Count 5.01 M/mm3 (4.2-5.4); White Blood Count 12.3 K/mm3 (4.4-11.0)
[2022-10-11 18:28] LABS: ALB/GLOB Ratio 1.3 RATIO (0.9-2.4); AST(SGOT) 35 U/L (15-37); Alanine Aminotransfer ALT/SGPT 33 U/L (13-56); Albumin, Serum 4.1 g/dL (3.2-5.0); Alkaline Phosphatase 70 U/L (45-117); Anion Gap 6 (5-15); BUN 21 mg/dL (7-18); BUN/Creat Ratio 18.8 RATIO (10-20); Calcium,Total 10.9 mg/dL (8.5-10.1); Chloride 108 mmol/L (98-107); Creatinine, Serum 1.12 mg/dL (0.55-1.02); EST Glomerular Filtration Rate 49 mL/min (>60); Est Glom Filt Rate - Afr Amer 60 mL/min (>60); Globulin 3.2 g/dL (2.2-4.2); Glucose 105 mg/dL (74-106); Protein, Total 7.3 g/dL (6.4-8.2); Sodium Level 140 mmol/L (136-145); Thyroid Stim Hormone (TSH) 1.02 uIU/mL (0.358-3.74)
== END | disposition home or self-care (01) ==
LOC: POLAB3 16:22
PROVIDERS: PCP Family Medicine Geriatric Medicine; Visit Provider Family Medicine Geriatric Medicine
DX: R53.83 Other fatigue (principal); N39.0 Urinary tract infection, site not specified
CPT/HCPCS: 36415; 80053; 84443; 85025; 87086; 87088

== ENCOUNTER → 2022-11-07 | Outpatient (CLI) | payer MEDICARE, OTHER, SELFPAY ==
[2022-11-07 15:15] LABS: Absolute Lymphocyte Count 2.84 X10^3/uL (0.83-4.51); Absolute Neutrophil Count 5.4 X10^3/uL (2.0-7.7); Basophil# 0.07 X10^3/uL; Basophil% 0.7 % (0-1); Eosinophil# 0.27 X10^3/uL; Eosinophils% 2.8 % (0-5); Hemoglobin 13.7 g/dL (12.0-15.0); Lymphocyte # 2.84 X10^3/ul (0.83-4.51); Lymphocyte % 29.8 % (19-41); Mean Corp Hgb Conc 33.4 g/dL (32-36); Mean Corpuscular Hgb 31.1 pg (27.0-32.0); Mean Platelet Vol. 10.3 fl (6.2-12.0); Monocyte# 0.95 X10^3/uL; NRBC Flagged by Analyzer 0 % (0-5); Neutrophil # 5.37 X10^3/uL (2.7-7.7); Neutrophil % 56.5 % (47-70); Platelet Count 288 K/mm3 (150-450); RBC Distribution Width CV 12.2 % (11.6-14.6); RBC Distribution Width SD 42.2 fl (35.1-43.9); Red Blood Count 4.41 M/mm3 (4.2-5.4); White Blood Count 9.5 K/mm3 (4.4-11.0)
[2022-11-07 15:30] LABS: Vitamin D,25 Hydroxy 36.2 ng/mL
[2022-11-07 15:36] LABS: ALB/GLOB Ratio 1.2 RATIO (0.9-2.4); AST(SGOT) 26 U/L (15-37); Alanine Aminotransfer ALT/SGPT 31 U/L (13-56); Albumin, Serum 3.6 g/dL (3.2-5.0); Alkaline Phosphatase 64 U/L (45-117); Anion Gap 5 (5-15); BUN 29 mg/dL (7-18); BUN/Creat Ratio 26.1 RATIO (10-20); Calcium,Total 9.8 mg/dL (8.5-10.1); Chloride 111 mmol/L (98-107); Creatinine, Serum 1.11 mg/dL (0.55-1.02); EST Glomerular Filtration Rate 50 mL/min (>60); Est Glom Filt Rate - Afr Amer 60 mL/min (>60); Glucose 111 mg/dL (74-106); Protein, Total 6.6 g/dL (6.4-8.2); Sodium Level 143 mmol/L (136-145); Thyroid Stim Hormone (TSH) 0.49 uIU/mL (0.358-3.74)
== END | disposition home or self-care (01) ==
LOC: POLAB3 13:34
PROVIDERS: PCP Family Medicine Geriatric Medicine; Visit Provider Family Medicine Geriatric Medicine
DX: I10 Essential (primary) hypertension (principal); E55.9 Vitamin D deficiency, unspecified
CPT/HCPCS: 36415; 80053; 82306; 84443; 85025

== ENCOUNTER → 2022-12-27 | Outpatient (CLI) | payer MEDICARE, OTHER, SELFPAY ==
--- NOTE | 2022-12-27 10:20 | RAD_ITS ---
PROCEDURE: Fluoroscopic guided right shoulder injection. DATE: December 27, 2022. INDICATION: Female, 82 years old. Chronic shoulder pain. PHYSICIAN: Mendoza Galloway M.D. MEDICATIONS: 12 mg of betamethasone and 4 cc of 1% lidocaine. 2% Lidocaine administered subcutaneously for local anesthesia. ACCESS SITE: Right shoulder. NEEDLE: 22-gauge spinal needle. FLUOROSCOPY TIME (if supplied): (0:29) minutes/seconds. 3.44 mGy FINDINGS: The risks, benefits, and alternatives to the procedure were explained to the patient. The specific risks of bleeding, infection, and neurovascular injury were detailed and accepted. Witnessed informed consent was obtained. A 22-gauge spinal needle was positioned under radiographic fluoroscopic localization. Approximately 2 cc of Isovue-300 instilled for localization purposes. Medication was then injected. The patient tolerated the procedure well without any immediate complications. RAD/Shoulder One View IMPRESSION: 1. Successful fluoroscopic guided hip injection. Electronically Signed: Mendoza Galloway MD at 15:36 EST ,
[2022-12-27] MEDS: Lidocaine 2% (5ml sdv) 5 ML VIAL.MPF INFILT (10:53)
[2022-12-27] MEDS: Betamethasone/Betamethasone 30 MG/5 ML Vial 12 MG INTRAARTIC (10:54)
[2022-12-27] MEDS: Lidocaine 1% (5 ml sdv) 5 ML Vial 4 ML OPERA.SITE (10:54)
--- NOTE | 2022-12-27 14:36 | PCM.OP.PRO ---
Procedure Report Date of Procedure: 12/27/22 Assessment & Plan Assessment/Plan (1) Primary osteoarthritis, right shoulder: PLAN: PROCEDURE: Fluoroscopic Guided right shoulder injection ORDERING PROVIDER: Dr. Ward INDICATION: Female, 82 years old. Primary osteoarthritis. PROVIDER: MARIA C Delaney PROCEDURE: CONSENT: The risks, benefits, and alternatives to the procedure were explained to the patient. The specific risks of bleeding, infection, and neurovascular injury were detailed and accepted. Witnessed informed consent was obtained. TECHNIQUE: The right shoulder access site was prepped and draped in sterile fashion. 2% Lidocaine was administered subcutaneously for local anesthesia. A 22-gauge spinal needle was positioned under radiographic fluoroscopic localization. Approximately 2 cc of Isovue 300 instilled for localization purposes. Medication was then injected. MEDICATIONS: 12 mg of betamethasone and 4 ml of 1% lidocaine. The spinal needle was removed, and a dressing was applied. The patient tolerated the procedure well without any immediate complications. IMPRESSION: Successful fluoroscopic guided right shoulder injection. Procedures Radiology Radiology Xray Procedures: Inj Asp major Joint - Hip, Knee
== END | disposition home or self-care (01) ==
LOC: RAD 10:17
PROVIDERS: PCP Family Medicine Geriatric Medicine; Referring Provider Specialist; Visit Provider Specialist
DX: M19.011 Primary osteoarthritis, right shoulder (principal)
CPT/HCPCS: 20610; 73020; 77002; J0702

== ENCOUNTER → 2023-03-14 | Outpatient (CLI) | payer MEDICARE, OTHER, SELFPAY | END | disposition home or self-care (01) | LOC: LAB 10:32 | PROVIDERS: PCP Family Medicine Geriatric Medicine; Referring Provider Ophthalmology; Visit Provider Ophthalmology | DX: Z79.899 Other long term (current) drug therapy (principal) | CPT/HCPCS: 36415 ==

== ENCOUNTER → 2023-05-16 | Outpatient (CLI) | payer MEDICARE, OTHER, SELFPAY ==
[2023-05-16 16:35] LABS: Color, Urine Yellow (Yellow); Glucose, Dipstick Normal (Normal); Ketone-Dipstick Negative (Negative); Leukocyte Esterase-Dipstick 100 /ul (Negative); Nitrite-Dipstick Negative (Negative); Occult Blood-Urine Negative /ul (Negative); Protein-Dipstick Negative (Negative); Urine Bilirubin Dipstick Negative (Negative); Urine Clarity Clear (Clear); Urine Urobilinogen Normal (Normal)
[2023-05-16 16:39] LABS: Absolute Lymphocyte Count 3.79 X10^3/uL (0.83-4.51); Absolute Neutrophil Count 5.2 X10^3/uL (2.0-7.7); Basophil# 0.05 X10^3/uL; Basophil% 0.5 % (0-1); Eosinophil# 0.13 X10^3/uL; Eosinophils% 1.3 % (0-5); Hematocrit 40.9 % (37-47); Hemoglobin 13.8 g/dL (12.0-15.0); Lymphocyte # 3.79 X10^3/ul (0.83-4.51); Mean Corp Hgb Conc 33.7 g/dL (32-36); Mean Corpuscular Hgb 30.7 pg (27.0-32.0); Mean Corpuscular Volume 90.9 fL (81-99); Mean Platelet Vol. 10.5 fl (6.2-12.0); Monocyte# 0.78 X10^3/uL; Monocyte% 7.8 % (0-10); NRBC Flagged by Analyzer 0 % (0-5); Neutrophil # 5.21 X10^3/uL (2.7-7.7); Neutrophil % 52.3 % (47-70); Platelet Count 279 K/mm3 (150-450); RBC Distribution Width CV 11.9 % (11.6-14.6); RBC Distribution Width SD 39.5 fl (35.1-43.9)
[2023-05-16 16:49] LABS: Anion Gap 5 (5-15); BUN 22 mg/dL (7-18); BUN/Creat Ratio 17.7 RATIO (10-20); Calcium,Total 10.1 mg/dL (8.5-10.1); Chloride 107 mmol/L (98-107); Creatinine, Serum 1.24 mg/dL (0.55-1.02); EST Glomerular Filtration Rate 44 mL/min (>60); Est Glom Filt Rate - Afr Amer 53 mL/min (>60); Glucose 118 mg/dL (74-106); Potassium 3.8 mmol/L (3.5-5.1); Sodium Level 139 mmol/L (136-145)
== END | disposition home or self-care (01) ==
LOC: POLAB3 15:55
PROVIDERS: PCP Family Medicine Geriatric Medicine; Visit Provider Family Medicine Geriatric Medicine
DX: N18.31 Chronic kidney disease, stage 3a (principal); N39.0 Urinary tract infection, site not specified
CPT/HCPCS: 36415; 80048; 81002; 85025; 87086; 87088

== ENCOUNTER → 2023-05-17 | Outpatient (CLI) | payer MEDICARE, OTHER, SELFPAY ==
--- NOTE | 2023-05-17 12:27 | BI_ITS ---
MAMMOGRAPHY - BILATERAL SCREENING REASON FOR EXAM: Female, 82 years old. Routine annual screening examination. PERTINENT HISTORY: Grandmother with breast cancer. History of prior left breast needle biopsy. TECHNIQUE: Digital bilateral breast bette (3D mammographic acquisition) in the CC and MLO projections. 2-D mediolateral oblique (MLO) and craniocaudad (CC) views of both breasts were obtained. CAD: Full Field Digital Mammography with Computer Added Detection was performed. COMPARISON: Comparison is made with prior study April 18, 2022 and September 28, 2016. FINDINGS: Breast Composition: There are scattered areas of fibroglandular density. There are no dominant masses or suspicious calcifications. No other significant abnormalities are identified. There has been no significant change since the prior study. BI/SCRN MAMM (CAD)W/BETTE BILAT IMPRESSION: Stable bilateral screening mammogram. Yearly follow-up mammogram recommended. (A) ASSESSMENT CATEGORY: BIRADS Category 1: Negative. A letter regarding these results will be sent to the patient by the facility within 30 days. Approximately 10% of breast cancers are not detected by mammography. A normal mammogram should not delay biopsy of a clinically suspicious abnormality. [id number] Electronically Signed: Mendoza Galloway MD at 14:12 EDT ,
--- NOTE | 2023-05-17 12:27 | BD_ITS ---
STUDY: DUAL ENERGY X-RAY ABSORPTIOMETRY / DXA REASON FOR EXAM: Female, 82 years old. Z780 TECHNIQUE: Bone Mineral Density (BMD) measurements of lumbar spine and bilateral hips were obtained. COMPARISON: Comparison is made with prior study September 24, 2014. FINDINGS: Lumbar Spine (L1-L4): g/cm2 (0.809) / T-score (-1.5) / Z-score (1.1) Findings are suggestive of osteopenia with a low fracture risk. Left Femur Total: g/cm2 (0.711) / T-score (-1.9) / Z-score (0.4) Left Femoral Neck: g/cm2 (0.642) / T-score (-1.9) / Z-score (0.6) Right Femur Total: g/cm2 (0.672) / T-score (-2.2) / Z-score (0.1) Right Femoral Neck: g/cm2 (0.530) / T-score (-2.9) / Z-score (-0.4) The T-Scores on the most recent prior examination were: Lumbar Spine (L1-L4): There has been worsening of bone density since the previous examination. Left Femur Total: which represents a worsening of 14.2%. Right Femur Total: which represents a worsening of 12.6%. BD/Dexa Bone Density Study IMPRESSION: The patient is considered osteoporotic as outlined below according to World Marc Organization (WHO) criteria with a high fracture risk. There has been worsening of bone density since the previous examination. Reference Information: The T-score is the number of standard deviations above or below the standard which is normal for young adults at their peak bone mineral density. The World Health Organization (WHO) interprets the T-scores as follows: Above -1 Normal bone density Between -1 and -2.5 Osteopenia Equal to / or below -2.5 Osteoporosis As a practical clinical guideline, osteopenia may be graded as follows: Mild -1 through -1.5 Moderate -1.6 through -2.0 Severe -2.1 through -2.4 The Z-score is the number of standard deviations above or below age-matched controls. A Z-score of less than -1.5 would be considered abnormal. References: 1. NIH Osteoporosis and Related Bone Diseases www osteo.org 2. International Society for Clinical Densitometry www iscd.org 3. National Osteoporosis Foundation www nof.org Electronically Signed: Mendoza Galloway MD at 13:22 EDT ,
== END | disposition home or self-care (01) ==
LOC: OPBD 12:26
PROVIDERS: PCP Family Medicine Geriatric Medicine; Referring Provider Family Medicine Geriatric Medicine; Visit Provider Family Medicine Geriatric Medicine
DX: Z12.31 Encounter for screening mammogram for malignant neoplasm of breast (principal); Z78.0 Asymptomatic menopausal state
CPT/HCPCS: 77063; 77067; 77080

== ENCOUNTER → 2023-05-30 | Outpatient (CLI) | payer MEDICARE, OTHER, SELFPAY ==
[2023-05-30 16:23] LABS: Vitamin D,25 Hydroxy 33.8 ng/mL
[2023-05-30 16:38] LABS: Thyroid Stim Hormone (TSH) 0.86 uIU/mL (0.358-3.74)
== END | disposition home or self-care (01) ==
LOC: POLAB3 15:17
PROVIDERS: PCP Family Medicine Geriatric Medicine; Visit Provider Family Medicine Geriatric Medicine
DX: I10 Essential (primary) hypertension (principal); E55.9 Vitamin D deficiency, unspecified
CPT/HCPCS: 36415; 82306; 84443

== ENCOUNTER → 2023-07-12 | Outpatient (CLI) | payer MEDICARE, OTHER, SELFPAY | END | disposition home or self-care (01) | LOC: PSN 11:55 | PROVIDERS: PCP Family Medicine Geriatric Medicine; Referring Provider Family Medicine Geriatric Medicine; Visit Provider Family Medicine Geriatric Medicine | DX: R68.83 Chills (without fever) (principal) | CPT/HCPCS: 87631 ==

== ENCOUNTER → 2023-08-06 | Outpatient (CLI) | payer MEDICARE, OTHER, SELFPAY ==
--- NOTE | 2023-08-06 10:41 | ECHOD_ITS ---
Reason For Study: MURMUR Procedure This was a 2D Doppler, Color Flow transthoracic echocardiogram. Exam performed in department. Left Ventricle Normal LV size. Left ventricular systolic function is normal. The left ventricular ejection fraction is 70 %. Stage 1 diastolic dysfunction. No regional wall motion abnormalities noted. Right Ventricle Normal RV size. Normal systolic function. Mitral Valve Normal mitral valve. Tricuspid Valve Normal tricuspid valve. Aortic Valve Trisinus/trileaflet aortic valve. Pulmonic Valve Normal pulmonic valve. Great Vessels Normal aortic root. Pericardium/Pleural No pericardial effusion. MMode/2D Measurements & Calculations LVIDd: 4.2 cm IVSd: 1.3 cm LVOT diam: 1.9 cm LVIDs: 2.6 cm LVPWd: 1.1 cm LVOT area: 2.9 cm2 RVDd: 2.9 cm FS: 37.7 % Ao root diam: 2.7 cm LAV(MOD-bp): 44.5 ml LVAd ap4: 17.3 cm2 LAV(MOD-bp) Indexed: 26.2 ml/m2 LVLd ap4: 6.1 cm LAV(MOD-sp2): 48.8 ml EDV(MOD-sp4): 40.0 ml LAV(MOD-sp4): 39.4 ml EDV(sp4-el): 41.3 ml LVAs ap4: 8.8 cm2 LVLs ap4: 5.6 cm ESV(MOD-sp4): 12.6 ml ESV(sp4-el): 11.7 ml EF(MOD-sp4): 68.6 % EF(sp4-el): 71.5 % SV(MOD-sp4): 27.4 ml SV(MOD-sp2): 23.3 ml LVAd ap2: 16.5 cm2 LVLd ap2: 6.4 cm EDV(MOD-sp2): 34.5 ml EDV(sp2-el): 36.1 ml LVAs ap2: 8.4 cm2 LVLs ap2: 5.3 cm ESV(MOD-sp2): 11.2 ml ESV(sp2-el): 11.1 ml EF(MOD-sp2): 67.6 % SV(sp4-el): 29.5 ml LA A4 area: 17.0 cm2 LA dimension(2D): 4.0 cm TAPSE: 1.8 cm RA A4 area: 11.5 cm2 Time Measurements MV dec time: 0.33 sec Doppler Measurements & Calculations MV E max andrea: 67.7 cm/sec Lat Peak E' Andrea: 6.3 cm/sec Med Peak E' Andrea: 4.5 cm/sec MV A max andrea: 107.7 cm/sec E/E' lat: 10.8 E/E' med: 15.1 MV E/A: 0.63 MV dec slope: 203.4 cm/sec2 Ao V2 max: 123.5 cm/sec LV V1 max: 110.5 cm/sec Ao max P.1 mmHg LV V1 max P.9 mmHg Ao V2 mean: 101.1 cm/sec LV V1 mean P.0 mmHg Ao mean P.2 mmHg LV V1 mean: 83.8 cm/sec Ao V2 VTI: 26.0 cm LV V1 VTI: 22.7 cm AV (velocity ratio): 0.87 MIKE(I,D): 2.6 cm2 MIKE(V,D): 2.6 cm2 SV(LVOT): 66.4 ml PA V2 max: 94.2 cm/sec PA max PG (full): 0.09 mmHg ECHO/Echo Complete Interpretation Summary Normal LV size. Left ventricular systolic function is normal. The left ventricular ejection fraction is 70 %. Stage 1 diastolic dysfunction. Trisinus/trileaflet aortic valve. Ordering Physician: Jazmyn Cabrera Referring Physician: Brandon March Chi Performed By: Sarai Adames RDCS
== END | disposition home or self-care (01) ==
LOC: CVS 10:40
PROVIDERS: PCP Family Medicine Geriatric Medicine; Referring Provider Physician Assistant Medical; Visit Provider Physician Assistant Medical
DX: R01.1 Cardiac murmur, unspecified (principal)
CPT/HCPCS: 93306

== ENCOUNTER → 2023-09-03 | Outpatient (CLI) | payer MEDICARE, OTHER, SELFPAY ==
--- NOTE | 2023-09-03 15:44 | RAD_ITS ---
STUDY: X-RAY - RIGHT WRIST REASON FOR EXAM: Female, 83 years old. PAIN AND SWELLING OF RIGHT FOREARM TECHNIQUE: 2 views of the right wrist were obtained. COMPARISON: None. FINDINGS: Normal visualized distal radius and ulna. Normal radiocarpal articulation. 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 Intact carpal bones. Normal carpal articulations. There is osseous fusion across the carpometacarpal articulation of the thumb. Normal second through fifth carpometacarpal articulations. Normal visualized metacarpal bones. There is degenerative arthrosis of the MCP joints and visualized interphalangeal joints of the fingers. The soft tissue structures are unremarkable. There is no demonstrated acute fracture. 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 Osseous fusion across the first CMC joint. Degenerative arthrosis of the MCP joints and visualized interphalangeal joints of the fingers. Electronically Signed: Austin Jacobo MD at 9:02 EDT ,
== END | disposition home or self-care (01) ==
LOC: RAD 15:43
PROVIDERS: PCP Family Medicine Geriatric Medicine; Referring Provider Family Medicine Geriatric Medicine; Visit Provider Family Medicine Geriatric Medicine
DX: M79.631 Pain in right forearm (principal)
CPT/HCPCS: 73100

== ENCOUNTER → 2023-12-20 | Outpatient (CLI) | payer MEDICARE, OTHER, SELFPAY ==
[2023-12-20 16:14] LABS: Absolute Lymphocyte Count 3.58 X10^3/uL (0.83-4.51); Absolute Neutrophil Count 4.4 X10^3/uL (2.0-7.7); Basophil# 0.06 X10^3/uL; Basophil% 0.6 % (0-1); Eosinophil# 0.36 X10^3/uL; Eosinophils% 3.9 % (0-5); Hematocrit 42.7 % (37-47); Hemoglobin 13.8 g/dL (12.0-15.0); Lymphocyte # 3.58 X10^3/ul (0.83-4.51); Lymphocyte % 38.6 % (19-41); Mean Corp Hgb Conc 32.3 g/dL (32-36); Mean Corpuscular Hgb 29.9 pg (27.0-32.0); Mean Corpuscular Volume 92.4 fL (81-99); Mean Platelet Vol. 9.9 fl (6.2-12.0); Monocyte# 0.81 X10^3/uL; Monocyte% 8.7 % (0-10); NRBC Flagged by Analyzer 0 % (0-5); Neutrophil # 4.44 X10^3/uL (2.7-7.7); Neutrophil % 47.9 % (47-70); Platelet Count 284 K/mm3 (150-450); RBC Distribution Width CV 11.9 % (11.6-14.6); RBC Distribution Width SD 40.5 fl (35.1-43.9); Red Blood Count 4.62 M/mm3 (4.2-5.4); White Blood Count 9.3 K/mm3 (4.4-11.0)
[2023-12-20 16:37] LABS: ALB/GLOB Ratio 1.2 RATIO (0.9-2.4); AST(SGOT) 28 U/L (15-37); Alanine Aminotransfer ALT/SGPT 23 U/L (13-56); Albumin, Serum 3.6 g/dL (3.2-5.0); Alkaline Phosphatase 74 U/L (45-117); Anion Gap 3 (5-15); BUN 15 mg/dL (7-18); BUN/Creat Ratio 14.9 RATIO (10-20); Calcium,Total 9.8 mg/dL (8.5-10.1); Chloride 110 mmol/L (98-107); Creatinine, Serum 1.01 mg/dL (0.55-1.02); EST Glomerular Filtration Rate 55 mL/min (>60); Est Glom Filt Rate - Afr Amer 67 mL/min (>60); Globulin 2.9 g/dL (2.2-4.2); Glucose 92 mg/dL (74-106); Potassium 4.4 mmol/L (3.5-5.1); Protein, Total 6.5 g/dL (6.4-8.2); Sodium Level 140 mmol/L (136-145)
[2023-12-20 17:42] LABS: Vitamin D,25 Hydroxy 30.7 ng/mL
== END | disposition home or self-care (01) ==
LOC: LAB 15:07
PROVIDERS: PCP Family Medicine Geriatric Medicine; Referring Provider Family Medicine Geriatric Medicine; Visit Provider Family Medicine Geriatric Medicine
DX: I10 Essential (primary) hypertension (principal); E55.9 Vitamin D deficiency, unspecified
CPT/HCPCS: 36415; 80053; 82306; 84443; 85025

== ENCOUNTER 2024-01-18 19:06 | Inpatient (IN) | payer MEDICARE, OTHER, SELFPAY ==
[2024-01-18 19:09] VITALS: BP 246/138; PULSE 88; RESP 18; TEMP 36.4; O2SAT 94; BMI 29.7
--- NOTE | 2024-01-18 19:38 | CT_ITS ---
STUDY: CT BRAIN WITHOUT CONTRAST REASON FOR EXAM: Female, 83 years old. Hypertension urgency, dizziness RADIATION DOSAGE (If Supplied By Facility): CTDIvol = ( 44.99 ) mGy, DLP = ( 812.98 ) mGycm TECHNIQUE: Transaxial CT imaging of the brain was performed without administration of intravenous contrast material. Individualized dose optimization techniques were used for this CT. COMPARISON: November 06, 2017 FINDINGS: Normal soft tissue structures. Normal calvarium. Calcific plaquing of the cavernous carotids Atrophy and mild periventricular white matter ischemic change.. Old left basal ganglia infarct. Normal brainstem. Normal cerebellum. There is no intracranial hemorrhage. There are no findings of an acute ischemic infarction. Normal visualized paranasal sinuses. Postsurgical changes of the orbits CT/Brain/Head without Contrast IMPRESSION: Atrophy and mild periventricular white matter ischemic changes with old left basal ganglia infarct. No mass or acute bleed. If concern for acute infarct MRI recommended. Electronically Signed: Denny Jarvis MD at 20:36 EST Reading Location ID and State: [address] [place] [address] Tel , Service support ,
--- NOTE | 2024-01-18 19:39 | EKG12_ITS ---
Test Reason : DYSRHYTHMIA Blood Pressure : */* mmHG Vent. Rate : 68 BPM Atrial Rate : 68 BPM P-R Int : 178 ms QRS Dur : 86 ms QT Int : 406 ms P-R-T Axes : 35 -25 44 degrees QTcB Int : 431 ms Normal sinus rhythm Voltage criteria for left ventricular hypertrophy abnormal Reconfirmed by Luan Guzman ([id number]), business editor NABOR BENNETT ([id number]) on 01/21/2024 6:46:49 AM Referred By: TL Confirmed By: Luan Guzman
[2024-01-18] MEDS: hydrALAZINE 20 MG/ML Vial IV (19:53)
[2024-01-18 19:56] LABS: Absolute Lymphocyte Count 10.61 X10^3/uL (0.83-4.51); Absolute Neutrophil Count 7.2 X10^3/uL (2.0-7.7); Basophil# 0.14 X10^3/uL; Basophil% 0.7 % (0-1); Eosinophil# 0.55 X10^3/uL; Eosinophils% 2.8 % (0-5); Hematocrit 47.1 % (37-47); Hemoglobin 15.6 g/dL (12.0-15.0); Lymphocyte # 10.61 X10^3/ul (0.83-4.51); Lymphocyte % 53.7 % (19-41); Mean Corp Hgb Conc 33.1 g/dL (32-36); Mean Corpuscular Hgb 30.4 pg (27.0-32.0); Mean Corpuscular Volume 91.6 fL (81-99); Mean Platelet Vol. 10.2 fl (6.2-12.0); Monocyte# 1.16 X10^3/uL; Monocyte% 5.9 % (0-10); NRBC Flagged by Analyzer 0 % (0-5); Neutrophil # 7.22 X10^3/uL (2.7-7.7); Neutrophil % 36.6 % (47-70); POSITIVE DIFFERENTIAL YES; Platelet Count 387 K/mm3 (150-450); RBC Distribution Width CV 11.9 % (11.6-14.6); RBC Distribution Width SD 39.9 fl (35.1-43.9); Red Blood Count 5.14 M/mm3 (4.2-5.4); White Blood Count 19.7 K/mm3 (4.4-11.0)
[2024-01-18 20:07] LABS: Prothrombin Time (Protime)PT. 12.9 SECONDS (11.7-14.9)
[2024-01-18 20:08] LABS: Partial Thromboplast Time 23.6 Seconds (24.1-36.2)
--- NOTE | 2024-01-18 20:15 | RAD_ITS ---
STUDY: X-RAY CHEST REASON FOR EXAM: Female, 83 years old. Hypertension TECHNIQUE: PA and lateral COMPARISON: July 21, 2020 FINDINGS: The lungs are clear and expanded. There is no demonstrated pleural abnormality. Heart is enlarged.. Normal mediastinum and suni. Normal visualized pulmonary arteries. Normal visualized aortic arch and descending thoracic aorta. Dorsal spine demonstrates degenerative change. Normal visualized ribs, clavicles, and shoulders. There is no demonstrated abnormality of the visualized soft tissue structures of the upper abdomen. RAD/Chest PA and Lateral IMPRESSION: No acute cardiopulmonary pathology Electronically Signed: Denny Jarvis MD at 20:46 EST ,
[2024-01-18 20:18] LABS: Anion Gap 9 (5-15); BUN 18 mg/dL (7-18); Calcium,Total 10.3 mg/dL (8.5-10.1); Chloride 110 mmol/L (98-107); Creatinine, Serum 1.06 mg/dL (0.55-1.02); EST Glomerular Filtration Rate 52 mL/min (>60); Est Glom Filt Rate - Afr Amer 63 mL/min (>60); Estimated Creatinine Clearance 37.11 ml/min; Glucose 122 mg/dL (74-106); Potassium 3.4 mmol/L (3.5-5.1); Sodium Level 141 mmol/L (136-145); Troponin-I HS (w/2H Reflex) 107 pg/mL (3.0-54.0)
[2024-01-18 20:22] LABS: BNP,B-Type NATRIURETIC PEPTIDE 271.6 pg/mL (0-100)
--- NOTE | 2024-01-18 20:31 | EX.ED.GENINJ ---
HPI History of Present Illness Chief Complaint: Nausea/Vomiting Narrative Narrative: Chief complaint and HPI: Hypertension. 83-year-old female with history of hypertension, HLD, CKD, CVA not on anticoagulation presents for evaluation of hypertension. Patient states that at baseline her hypertension is poorly controlled. She states that she recently saw her physician approximately 4 weeks ago and was taken off of her 100 mg of losartan and placed on a different medication. She cannot tell me what that medication was. She states she continued her 25 mg hydrochlorothiazide and her 0.3 mg weekly transdermal patch. Patient states that she has baseline dry mouth. She states that this worsened after she was switched off her losartan and placed on the different medication. She states that she did not like this so she stopped taking the new medication and instead went back on her 100 mg of losartan about 1 week ago. Patient states that she got up from a seated position this evening and felt lightheaded and nauseous. She states she took her blood pressure and it was 238/105. She states that she took 0.2 mg of clonidine but immediately threw it up so she does not think it took effect. Patient states her blood pressure did not improve which is why she presents. She states her lightheadedness has improved. Did receive Zofran via EMS. Denies any headache, vision changes, URI symptoms, neck pain, chest pain, shortness of breath, abdominal pain, dysuria, numbness or tingling, neurological deficit. Review of systems: See HPI Medications: As listed on the chart Allergies: As listed on the chart PFSH: Per chart Vital signs: As listed on the chart. Reviewed. Physical exam: Gen: A&O x3, NAD Head: Normocephalic, atraumatic Eyes: No sclera icterus, conjunctiva clear, PERRL, EOMI ENT: Moist mucous membranes Neck: Trachea midline, No JVD CV: RRR, no murmurs, no peripheral edema Resp: Lungs CTA BL, no w/r/c GI: Abd soft, non-distended, non-tender, no r/r/g Musc: Full ROM, no deformity Skin: Warm, dry Neuro: Alert, oriented, grossly intact, sensation intact Psych: Cooperative, appropriate mood and affect [facility] Medical History Ambulates with cane Anemia Arthritis Back pain Cardiology follow-up encounter Cataract Chronic kidney disease, stage 3a Depression Difficulty swallowing Disorder of vitamin B12 Esophagitis Essential (primary) hypertension Family history of colon cancer Fibromyalgia Gastric reflux Gastritis 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 Hiatal hernia High cholesterol History of diverticulitis History of echocardiogram History of edema History of hiatal hernia History of IBS History of renal disease History of steroid therapy History of stress test Hx of mitral valve prolapse Hyperlipidemia Hypertension Leg cramps Non-smoker Personal history of colonic polyps Shortness of breath on exertion Stroke/cerebrovascular accident Tubular adenoma of colon Wears contact lenses Wears glasses Weight loss Home Medications ?Medication ?Instructions ?Recorded ?Last Taken ?Type acetaminophen 325 mg tablet 650 mg (2 x 325 mg) PO Q6H PRN PRN 11/30/17 Unknown Rx Mild Pain (0-3/10)/Headache loratadine 10 mg tablet 10 mg PO DAILY PRN ALLERGIES 11/30/17 Unknown Rx losartan 100 mg tablet 100 mg PO DAILY #30 tabs 11/30/17 07/26/21 08:15 Rx paroxetine HCl 20 mg tablet 20 mg PO DAILY #30 tabs 11/30/17 Unknown Rx albuterol sulfate 90 mcg/actuation 1 puff inhalation Q6H PRN SOB 07/25/21 Unknown History aerosol inhaler cholecalciferol (vitamin D3) 25 25 mcg PO DAILY 07/25/21 Unknown History mcg (1,000 unit) capsule (Vitamin D3) hydrochlorothiazide 25 mg tablet 25 mg PO DAILY 07/25/21 Unknown History multivitamin 1 tab PO DAILY SUPPLEMENT 12/26/21 Unknown History dexlansoprazole 60 mg 60 mg PO BID #120 caps 12/30/21 Unknown Rx capsule,biphase delayed release (Dexilant) clonidine 0.3 mg/24 hr weekly 1 patch transdermal QWEEK 07/05/23 Unknown History transdermal patch clonidine HCl 0.1 mg tablet 0.1 mg PO DAILY PRN high blood 07/05/23 Unknown History pressure inclisiran 284 mg/1.5 mL 284 mg subcut [id number] 07/05/23 Unknown History subcutaneous syringe linaclotide 72 mcg capsule 72 mcg PO DAILY 07/05/23 Unknown History (Linzess) Allergy/AdvReac Type Severity Reaction Status Date / Time adhesive tape Allergy Other Verified 01/18/24 19:08 valsartan Allergy Rash Verified 01/18/24 19:08 amlodipine AdvReac Other Verified 01/18/24 19:08 enalaprilat (From Vasotec) AdvReac Other Verified 01/18/24 19:08 minoxidil AdvReac Other Verified 01/18/24 19:08 risedronate sodium (From AdvReac Other Verified 01/18/24 19:08 Actonel) Family History Mother Cancer pancreatic Father Colon cancer Grandmother Breast cancer Surgical History H/O adenoidectomy H/O dilation and curettage History of cardiac catheterization History of carpal tunnel surgery of right wrist History of cholecystectomy History of hysterectomy History of partial knee replacement History of tonsillectomy History of total knee arthroplasty S/P sclerotherapy of varicose veins Social History Smoking Status: Never smoker alcohol intake: current alcohol intake frequency: holidays/special occasions only substance use type: does not use caffeine: Yes Type: coffee Number of servings: 1 EXAM Physical Exam Const Vital Signs: 01/18/24 19:09 01/18/24 21:08 Temperature 97.6 F L Temperature Source Oral Pulse Rate 88 79 Respiratory Rate 18 18 Blood Pressure 246/138 H 180/74 H Blood Pressure Mean 174 109 Pulse Ox 94 97 Oxygen Delivery Method Room Air Room Air MDM MDM MDM Narrative Medical decision making narrative: 83-year-old female with history of hypertension, HLD, CKD, CVA not on anticoagulation presents for evaluation of hypertension. Patient recently had her antihypertensive changed by her physician however due to dry mouth patient returned back to her old antihypertensive regiment. On presentation, patient has severe hypertension with a blood pressure of 246/138. IV hydralazine ordered. Differential diagnosis includes but is not limited to hypertension urgency, hypertensive emergency, electrolyte abnormality, intracranial bleed from hypertension. Cardiac workup ordered including CT head. On chart review, I was unable to find the medication patient was supposed to be on. EKG and chest x-ray reviewed. See below. CBC with a leukocytosis of 19.7. Patient denies any infectious type symptoms. Will add on urine to assess for UTI as patient is negative for pneumonia. Patient has mild hemoconcentration with a hemoglobin of 15.6. She has mild hypokalemia of 3.4 as well as mild renal insufficiency of 1.6. Lab work shows mild dehydration therefore NS bolus ordered. BNP elevated at 271.6. Patient's troponin elevated at 107. Will get repeat. This is consistent with hypertensive emergency. On reevaluation, patient's blood pressures proved to 180/74. Will continue to monitor. CT head shows chronic ischemic changes with old left basal ganglia infarct. No bleed. On reevaluation, patient's blood pressure is back in the 200s. Will give p.o. clonidine. UA negative for UTI. No clear etiology for patient's leukocytosis. Given patient's hypertensive emergency, she will warrant admission. She is still nauseous with emesis. Patient was discussed with the hospitalist service, he agrees with admission. Patient will be admitted to the ICU. Given that patient has a leukocytosis of 19.7 with nausea and vomiting recommendation is for CT abdomen pelvis. This was ordered. I did explain to the patient why this was ordered. She confirmed understanding. At this time patient is not having any abdominal pain and her abdominal exam is benign. EKG: Interpreted by me/EM physician: EKG shows normal sinus rhythm with LVH. No acute ischemic changes. Heart rate 68. Diagnostic: Interpreted by me/EM physician: Chest x-ray without pneumonia, effusion, cardiomegaly, pneumothorax 30 minutes of critical care time utilized in managing the patient. This is due to high probability of and deterioration of the patient based on the patient's condition and excludes any separately billable procedures. Impression: 1. Severe hypertension with hypertension emergency 2. Elevated troponin secondary to #1 3. Leukocytosis 4. Mild dehydration 5. Nausea and vomiting Lab Data Labs: Laboratory Results - last 24 hr 01/18/24 01/18/24 19:50 21:21 WBC 19.7 H RBC 5.14 Hgb 15.6 H Hct 47.1 H MCV 91.6 MCH 30.4 MCHC 33.1 RDW Std Deviation 39.9 RDW Coeff of Patrizia 11.9 Plt Count 387 MPV 10.2 Immature Gran % (Auto) 0.300 Neut % (Auto) 36.6 L Lymph % (Auto) 53.7 H [place] % (Auto) 5.9 Eos % (Auto) 2.8 Baso % (Auto) 0.7 Absolute Neuts (auto) 7.2 Absolute Lymphs (auto) 10.61 H Nucleated RBC % 0 Differential Comment SEE COMMENT Atypical Lymphocytes 2+ Platelet Estimate ADEQUATE RBC Morphology N CHROM Anisocytosis 1+ Macrocytosis 1+ Ovalocytes RARE PT 12.9 INR 1.0 APTT 23.6 L Sodium 141 Potassium 3.4 L Chloride 110 H Carbon Dioxide 22.0 Anion Gap 9 BUN 18 Creatinine 1.06 H Estim Creat Clear Calc 37.11 Est GFR (MDRD) Af Amer 63 Est GFR (MDRD) Non-Af 52 L BUN/Creatinine Ratio 17.0 Glucose 122 H Calcium 10.3 H Troponin I High Sens 107 H B-Natriuretic Peptide 271.6 H Urine Color Yellow Urine Clarity Clear Urine pH 6.0 Ur Specific [place] 1.025 Urine Protein 100 H Urine Glucose (UA) Normal Urine Ketones 15 H Urine Occult Blood 10 H Urine Nitrite Negative Urine Bilirubin Negative Urine Urobilinogen Normal Ur Leukocyte Esterase Negative Radiography Diagnostic Testing: Clinical Impression(s) from Imaging Studies Brain CT 01/18/24 19:38 IMPRESSION: Atrophy and mild periventricular white matter ischemic changes with old left basal ganglia infarct. No mass or acute bleed. If concern for acute infarct MRI recommended. Electronically Signed: Denny Jarvis MD at 20:36 EST Reading Location ID and State: [facility] / [place] Tel [phone], Service support , Chest X-Ray 01/18/24 20:15 IMPRESSION: No acute cardiopulmonary pathology Electronically Signed: Denny Jarvis MD at 20:46 EST , Discharge Plan Triage Chief Complaint: Nausea/Vomiting ED Provider: Florencio Camargo Dx/Rx/DC Orders Prescriptions: No Action dexlansoprazole [Dexilant] 60 mg capsule,biphase delayed releas 60 mg PO BID Qty: 120 4RF clonidine 0.3 mg/24 hr patch weekly 1 patch transdermal QWEEK Linzess 72 mcg capsule 72 mcg PO DAILY inclisiran 284 mg/1.5 mL syringe 284 mg subcut [id number] multivitamin Tablet 1 tab PO DAILY acetaminophen 325 MG tablet 650 mg PO Q6H PRN PRN (Reason: Mild Pain (0-3/10)/Headache) 0RF paroxetine HCl 20 MG tablet 20 mg PO DAILY Qty: 30 0RF losartan 100 MG tablet 100 mg PO DAILY Qty: 30 0RF loratadine 10 MG tablet 10 mg PO DAILY PRN (Reason: ALLERGIES) 0RF hydrochlorothiazide 25 mg Tablet 25 mg PO DAILY albuterol sulfate 90 mcg/actuation Hfa Aerosol Inhaler 1 puff INHALATION Q6H PRN (Reason: SOB) cholecalciferol (vitamin D3) [Vitamin D3] 25 mcg (1,000 unit) Capsule 25 mcg PO DAILY clonidine HCl 0.1 mg tablet 0.1 mg PO DAILY PRN (Reason: high blood pressure) Primary Care Provider: Brandon March Chi Referrals: Brandon March Chi, MD [Primary Care Provider] - Print Language: Serbian
[2024-01-18 20:38] LABS: Differential Indicated SCAN CRITERIA MET
[2024-01-18 20:40] LABS: Anisocytosis 1+; Atypical Lymphocyte 2+ %; Macrocytosis 1+; Platelet Estimate ADEQUATE (ADEQ); Red Cell Morphology N CHROM NORMAL (NORM C&C)
[2024-01-18 20:41] LABS: Ovalocyte RARE
[2024-01-18 21:08] VITALS: BP 180/74; PULSE 79; RESP 18; O2SAT 97
[2024-01-18] MEDS: cloNIDine HCl 0.2 MG Tablet PO (21:23)
[2024-01-18 21:29] LABS: Squamous Epithelial Cells - UA 0 SEEN /hpf (5-10)
[2024-01-18 21:35] LABS: Color, Urine Yellow (Yellow); Glucose, Dipstick Normal (Normal); Ketone-Dipstick 15 mg/dl (Negative); Leukocyte Esterase-Dipstick Negative /ul (Negative); Nitrite-Dipstick Negative (Negative); Occult Blood-Urine 10 /ul (Negative); Protein-Dipstick 100 mg/dl (Negative); Specific Gravity, Urine 1.025 (1.002-1.030); Urine Bilirubin Dipstick Negative (Negative); Urine Clarity Clear (Clear); Urine Urobilinogen Normal (Normal)
[2024-01-18 21:52] LABS: Reflex Troponin-HS? (from REC) Y
[2024-01-18] MEDS: 0.9% Normal Saline (1000mL) 1,000 ML 999 ML IV (21:55)
[2024-01-18 22:00] LABS: White Blood Cells 0-5 SEEN /hpf (0-5)
[2024-01-18 22:01] LABS: Amorphous Sediment 1+; Bacteria RARE /hpf (None Seen); Mucous, Urine 1+ /hpf (<or=2+); Red Blood Cells-Urine 0-5 SEEN /hpf (0-5)
[2024-01-18 22:08] VITALS: BP 172/88; PULSE 89; RESP 18; TEMP 37.1; O2SAT 97
--- NOTE | 2024-01-18 22:18 | PCM.HP.STD ---
[facility] - [facility] General Date of Admission: 01/18/24 Date of Service: 01/18/24 Chief Complaint: Highly Elevated Blood Pressure with Nausea and Vomiting. HPI Narrative JANIA SPRAGUE, is a 83 F with a past medical history of poorly-controlled hypertension; on losartan, hydrochlorothiazide and clonidine patch with as needed oral clonidine for blood pressure spikes, hyperlipidemia; on inclisiran injections q. 6 months, overweight; with BMI of 29.7 this admission, history of CVA; with hemiplegia and hemiparesis, history of mitral valve prolapse, CKD; stage IIIa, history of anemia, history of B12 deficiency, history of tubular adenoma of colon, history of diverticulitis, history of IBS of constipation-type; on linaclotide, history of cataracts, history of leg cramps, hiatal hernia, GERD; with history of esophagitis and gastritis on dexlansoprazole 60 mg p.o. BID, history of depression; on paroxetine, history of fibromyalgia, history of previous cardiac catheterization, history of CTS of the Right hand; s/p release, history of hysterectomy, history of cholecystectomy, history of varicose veins; s/p sclerotherapy, history of D&C, listed allergy to valsartan (rash), listed allergy to amlodipine (?), listed allergy to enalapril (?), listed allergy to minoxidil (?), listed allergy to risedronate (?) and OA; with chronic back pain and history of TKR who presents to [facility] ER complaining of highly elevated blood pressure of 238/105 mmHg at home along with nausea and vomiting. Ms. Sprague reports her symptoms began approximately 4 weeks ago when she was seen by one of her physicians for uncontrolled hypertension and she was taken off of her losartan and placed on a different medication which she does not remember. She continued to take her hydrochlorothiazide and clonidine 0.3 mg TTS patch weekly. She suspected the new medication caused her to have a dry mouth so she stopped taking this medication and went back on her 100 mg of losartan daily approximately 1 week ago. Then earlier this evening she got up from a seated position and felt lightheaded and nauseous. She then took her blood pressure which was highly elevated at 238/105 mmHg so she then tried to take oral clonidine and immediately vomited up this medication so she then decided to activate EMS to be brought in for further evaluation and treatment. EMS did give IV Zofran en-route. She denies associated headache, visual changes, upper respiratory infection symptoms, neck pain, chest pain, shortness of breath, abdominal pain, dysuria, numbness or tingling or new focal neurologic deficits. In the ER she was noted to have an initial blood pressure of 246/138 mmHg and was emergently treated with IV hydralazine followed by oral clonidine with blood pressure dropping to 180/74 mmHg complicated by a mildly elevated troponin of 113 pg/mL present on admission consistent with Hypertensive Emergency causing suspected Acute Cardiac Strain complicated by laboratory evidence of severe Leukocytosis of 19.7 K present on admission with negative chest x-ray and unremarkable urinalysis with initial clinical suspicion of acute stress response to recent illness compounded by laboratory evidence of hypokalemia of 3.4 mmol/L present on admission with clinical evidence of intractable nausea and vomiting with corresponding CT of the abdomen and pelvis confirming evidence of gastritis, esophagitis and suspected PUD and she was then admitted to the ICU for ongoing care for status expected to extend beyond 2 midnights. [facility] Medical History Personal history of colonic polyps Disorder of vitamin B12 Hyperlipidemia Essential (primary) hypertension Chronic kidney disease, stage 3a 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 Tubular adenoma of colon Esophagitis Gastritis Wears contact lenses Wears glasses Fibromyalgia Depression History of steroid therapy Ambulates with cane Arthritis History of renal disease Anemia High cholesterol Back pain Difficulty swallowing History of hiatal hernia History of IBS History of diverticulitis Hx of mitral valve prolapse Gastric reflux Non-smoker Shortness of breath on exertion Leg cramps History of edema Hypertension Cardiology follow-up encounter History of echocardiogram History of stress test Stroke/cerebrovascular accident Hiatal hernia Family history of colon cancer Weight loss Cataract Home Medications ?Medication ?Instructions ?Recorded ?Last Taken ?Type acetaminophen 325 mg tablet 650 mg (2 x 325 mg) PO Q6H PRN PRN 11/30/17 Unknown Rx Mild Pain (0-3/10)/Headache loratadine 10 mg tablet 10 mg PO DAILY PRN ALLERGIES 11/30/17 Unknown Rx losartan 100 mg tablet 100 mg PO DAILY #30 tabs 11/30/17 07/26/21 08:15 Rx paroxetine HCl 20 mg tablet 20 mg PO DAILY #30 tabs 11/30/17 Unknown Rx albuterol sulfate 90 mcg/actuation 1 puff inhalation Q6H PRN SOB 07/25/21 Unknown History aerosol inhaler cholecalciferol (vitamin D3) 25 25 mcg PO DAILY 07/25/21 Unknown History mcg (1,000 unit) capsule (Vitamin D3) hydrochlorothiazide 25 mg tablet 25 mg PO DAILY 07/25/21 Unknown History multivitamin 1 tab PO DAILY SUPPLEMENT 12/26/21 Unknown History dexlansoprazole 60 mg 60 mg PO BID #120 caps 12/30/21 Unknown Rx capsule,biphase delayed release (Dexilant) clonidine 0.3 mg/24 hr weekly 1 patch transdermal QWEEK 07/05/23 Unknown History transdermal patch clonidine HCl 0.1 mg tablet 0.1 mg PO DAILY PRN high blood 07/05/23 Unknown History pressure inclisiran 284 mg/1.5 mL 284 mg subcut [id number] 07/05/23 Unknown History subcutaneous syringe linaclotide 72 mcg capsule 72 mcg PO DAILY 07/05/23 Unknown History (Pattyzeselaine) Allergy/AdvReac Type Severity Reaction Status Date / Time adhesive tape Allergy Other Verified 01/18/24 19:08 valsartan Allergy Rash Verified 01/18/24 19:08 amlodipine AdvReac Other Verified 01/18/24 19:08 enalaprilat (From Vasotec) AdvReac Other Verified 01/18/24 19:08 minoxidil AdvReac Other Verified 01/18/24 19:08 risedronate sodium (From AdvReac Other Verified 01/18/24 19:08 Actonel) Family History Mother Cancer pancreatic Father Colon cancer Grandmother Breast cancer Surgical History History of carpal tunnel surgery of right wrist History of partial knee replacement History of cardiac catheterization History of total knee arthroplasty History of hysterectomy History of cholecystectomy S/P sclerotherapy of varicose veins H/O dilation and curettage History of tonsillectomy H/O adenoidectomy Social History Smoking Status: Never smoker alcohol intake: current alcohol intake frequency: holidays/special occasions only substance use type: does not use caffeine: Yes Type: coffee Number of servings: 1 ROS ROS Narrative Review of Systems: Constitutional: Patient denies fever or chills. Eyes: Patient denies changes in vision or discharge from eyes. ENT: Patient denies runny nose, sore throat or ear pain. Resp: Patient denies SOB or cough. CV: Patient admits to highly elevated blood pressure as per HPI. She denies associated chest pain, palpitations or diaphoresis. GI: Patient admits to nausea and vomiting but she denies diarrhea or constipation. : Patient denies dysuria or hematuria. MSK: Patient denies arthralgias or myalgias. Skin: Patient denies rash, abscess or jaundice. Psych: Patient denies symptoms of uncontrolled depression or anxiety. Neuro: Patient denies headache, paresthesias or focal neurologic deficits but she did have a LOC lasting 1-2 minutes. Allergy: Patient denies lip swelling, tongue swelling or urticaria. Hematology: Patient denies easy bleeding or easy bruisability. Endocrinology: Patient denies polyuria, polydipsia or polyphagia. 14 point ROS otherwise negative except for positives noted above in HPI. Vital Signs Vital Signs Vital Signs: 01/18/24 19:09 01/18/24 21:08 01/18/24 22:08 Temperature 97.6 F L 98.7 F Temperature Source Oral Pulse Rate 88 79 89 Respiratory Rate 18 18 18 Blood Pressure 246/138 H 180/74 H 172/88 H Blood Pressure Mean 174 109 116 Pulse Ox 94 97 97 Oxygen Delivery Method Room Air Room Air Weight Weight: 162 lb 4.163 oz Body Mass Index (BMI) 29.7 Physical Exam Const alert, oriented x3 and average body habitus Constitutional Narrative: Mild discomfort noted. General Appearance: cooperative HEENT normocephalic, head/scalp atraumatic, hearing grossly normal bilaterally and moist oral mucous membranes Eyes PERRL and EOMs intact bilaterally Neck no lymphadenopathy and supple Resp normal respiratory effort, no retractions, no use of accessory muscles and clear to auscultation bilaterally Cardio regular rate and regular rhythm GI normal to inspection, nondistended, normoactive bowel sounds, soft to palpation, non-tender and non-distended Extremity normal to inspection, full ROM and no clubbing, cyanosis or edema Skin Skin Narrative: Patient has no evidence of rash, abscess or jaundice. Neuro oriented x3, CN's II-XII intact bilaterally, moves all extremities and no focal motor deficits Sensorium / Orientation: awake, alert, oriented to person, oriented to place and oriented to time Speech: speech normal Psych affect normal Results Medical Records Data Attestation: I reviewed the patient's medical records Lab / Micro Data Attestation: I reviewed the patient's lab results. 01/18/24 19:50 01/18/24 19:50 Labs: Laboratory Results - last 24 hr 01/18/24 19:50: WBC 19.7 H, RBC 5.14, Hgb 15.6 H, Hct 47.1 H, MCV 91.6, MCH 30.4, MCHC 33.1, RDW Std Deviation 39.9, RDW Coeff of Patrizia 11.9, Plt Count 387, MPV 10.2, Immature Gran % (Auto) 0.300, Neut % (Auto) 36.6 L, Lymph % (Auto) 53.7 H, [place] % (Auto) 5.9, Eos % (Auto) 2.8, Baso % (Auto) 0.7, Absolute Neuts (auto) 7.2, Absolute Lymphs (auto) 10.61 H, Nucleated RBC % 0, Differential Comment SEE COMMENT, Atypical Lymphocytes 2+, Platelet Estimate ADEQUATE, RBC Morphology N CHROM, Anisocytosis 1+, Macrocytosis 1+, Ovalocytes RARE, PT 12.9, INR 1.0, APTT 23.6 L, Sodium 141, Potassium 3.4 L, Chloride 110 H, Carbon Dioxide 22.0, Anion Gap 9, BUN 18, Creatinine 1.06 H, Estim Creat Clear Calc 37.11, Est GFR (MDRD) Af Amer 63, Est GFR (MDRD) Non-Af 52 L, BUN/Creatinine Ratio 17.0, Glucose 122 H, Calcium 10.3 H, Troponin I High Sens 107 H, B-Natriuretic Peptide 271.6 H 01/18/24 21:21: Urine Color Yellow, Urine Clarity Clear, Urine pH 6.0, Ur Specific [place] 1.025, Urine Protein 100 H, Urine Glucose (UA) Normal, Urine Ketones 15 H, Urine Occult Blood 10 H, Urine Nitrite Negative, Urine Bilirubin Negative, Urine Urobilinogen Normal, Ur Leukocyte Esterase Negative, Urine RBC 0-5 SEEN, Urine WBC 0-5 SEEN, Ur Squamous Epith Cells 0 SEEN, Amorphous Sediment 1+, Urine Bacteria RARE, Urine Mucus 1+ Imaging Radiology Impression Brain CT 01/18/24 19:38 IMPRESSION: Atrophy and mild periventricular white matter ischemic changes with old left basal ganglia infarct. No mass or acute bleed. If concern for acute infarct MRI recommended. Electronically Signed: Denny Jarvis MD at 20:36 EST Reading Location ID and State: [facility] / [place] Tel , Service support , Chest X-Ray 01/18/24 20:15 IMPRESSION: No acute cardiopulmonary pathology Electronically Signed: Denny Jarvis MD at 20:46 EST , [facility] Imaging Services [address] [place] [id number] Abdomen/Pelvis W IV Cont ONLY MR#: [id number] Acct: [id number] Name: JANIA SPRAGUE Rep #: [id number] : 1940 F 83 From: Denny Jarvis MD PCP: Dr. Brandon March MD Status: ADM IN Study: Abdomen/Pelvis W IV Cont ONLY Date of Exam: 01/18/24 Exam# [id number] Ordering Dr: Florencio Camargo DO STUDY: CT ABDOMEN AND PELVIS WITH CONTRAST REASON FOR EXAM: Female, 83 years old. Nausea, vomiting, elevated white RADIATION DOSAGE (If Supplied By Facility): CTDIvol = ( 13.07 ) mGy, DLP = ( 771.98 ) mGycm TECHNIQUE: Transaxial images were obtained from the dome of the diaphragm to the symphysis pubis without oral contrast. IV 100mL Isovue-370 was administered. Sagittal and coronal images were reconstructed. Individualized dose optimization techniques were used for this CT. COMPARISON: January 28, 2018 FINDINGS: Minor chronic interstitial thickening in the lower lobes. Tiny nodular opacity at the right base measuring approximately 5 to 6 mm. Heart is mildly enlarged. No coronary artery calcification is observed. Small hiatal hernia is noted Nonspecific fatty infiltration of liver. There are no intrahepatic masses however there is mild bile duct dilatation likely physiologic due to prior cholecystectomy.. . Normal spleen. Normal pancreas. Normal bilateral adrenal glands. Normal right kidney. Normal left kidney. Mild nonspecific thickening of the corbett of the stomach at the gastroduodenal junction which may be consistent with nonspecific gastroduodenitis. No evidence for small bowel obstruction . Scattered diverticular changes of the colon without evidence for acute diverticulitis. No evidence for acute appendicitis. Atherosclerotic changes of the aorta without evidence for aneurysm. Normal inferior vena cava. Normal retroperitoneum. Normal urinary bladder. Uterus not visualized consistent with hysterectomy Normal abdominal wall. Lumbar spine demonstrates degenerative change. Grade 1 spondylolisthesis at L5-S1 CT/Abdomen/Pelvis W IV Cont ONLY IMPRESSION: Findings which may be consistent with nonspecific gastroduodenitis possibly due to peptic ulcer disease... Scattered diverticular changes of the colon without evidence for acute diverticulitis No evidence for small bowel obstruction or other acute abnormality Incidental finding of tiny nonspecific nodule in the right lower lobe measuring approximately 5 to 6 mm likely of no significance however would recommend further imaging utilizing Fleischner Society criteria if clinically warranted Electronically Signed: Denny Jarvis MD at 23:03 EST , CC: Dr. Florencio Camargo DO; Dr. Brandon March MD ~ Multigraph Operator: Signed Assessment & Plan Assessment/Plan (1) Hypertensive emergency: (2) Elevated troponin level not due myocardial infarction: (3) Leukocytosis, unspecified: QUALIFIERS: Leukocytosis type: unspecified Qualified Code(s): D72.829 - Elevated white blood cell count, unspecified (4) Intractable nausea and vomiting: (5) Hypokalemia: (6) Acid reflux: QUALIFIERS: Esophagitis presence: esophagitis presence not specified Qualified Code(s): K21.9 - Gastro-esophageal reflux disease without esophagitis (7) History of esophagitis: (8) History of gastritis: (9) History of CVA (cerebrovascular accident): PLAN: Plan 1. Hypertensive Emergency causing suspected Acute Cardiac Strain with elevated blood pressure of 246/138 mmHg noted in ER along with elevated troponin of 113 pg/mL present on admission in the setting of known poorly-controlled hypertension; on losartan, hydrochlorothiazide and clonidine patch with as needed oral clonidine for blood pressure spikes with patient recently started on a new antihypertensive agent when she stopped taking of her own volition - Admit to ICU. Restart home regimen plus give hydralazine IV as needed for systolic blood pressure greater than 180 mmHg with goal to slowly decrease patient to prevent further complications. Stop hydrochlorothiazide in favor of Lasix 40 mg IV daily. Patient was sternly warned to not change her blood pressure regimen without guidance from her physician in the future to prevent future similar adverse consequences. Give BASA and trend troponins with a low-index of clinical suspicion for ACS. Check echocardiogram to evaluate LVEF. Finally, given the severity of this patient's chronically severe hypertension in spite of multiple agents with numerous listed allergies to several classes of antihypertensive agents we will consult [facility] to see this patient on rounds in the a.m. for further recommendations regarding possible secondary hypertension workup with help appreciated in advance. 2. Severe Leukocytosis of 19.7 K present on admission with intractable nausea and vomiting and negative chest x-ray and unremarkable urinalysis with initial clinical suspicion of acute stress response complicating #1 - ER physician was asked to obtain CT scan of the abdomen and pelvis without contrast given the dramatic nature of patient's presentation to rule out any other potential underlying pathology and to evaluate for objective evidence of gastritis and esophagitis with CT revealing nonspecific gastroduodenitis possibly due to peptic ulcer disease with scattered diverticular changes of the colon without evidence for acute diverticulitis. Give Zofran IV as needed nausea and vomiting. Give Phenergan IM for breakthrough nausea vomiting. We will hold off on giving antibiotics until definite source of infection can be identified with patient afebrile and nontoxic in appearance. Finally, we will consult gastroenterology to see this patient on-rounds in the AM for further recommendations regrading possible EGD this admission with help appreciated in advance. 3. Hypokalemia of 3.4 mmol/L present on admission likely due to nausea and vomiting compounding #1 & #2 - Give supplemental KCl and then recheck level in AM to ensure improvement. 4. GERD; with history of esophagitis, gastritis and hiatal hernia on dexlansoprazole 60 mg p.o. BID adding to the medical complexity of #1 - #3 - Give PPI IV until patient can tolerate oral intake. 5. History of CVA; with hemiplegia and hemiparesis likely due to issues related to #1 - Hold BASA in light of CT results in #2 and watch for possible development of acute neurologic changes. 6. Overweight; with BMI of 29.7 this admission - Weight loss will be recommended. Check TSH. This complicates her case and may hamper recovery. 7. Hyperlipidemia; on inclisiran injections q. 6 months - Check Lipid Profile this admission in light of #1 to ensure good control on this agent. 8. History of mitral valve prolapse - Noted with echocardiogram pending this admission for #1. 9. CKD; stage IIIa - Stable. Check renal indices daily to ensure continued stability. 10. History of anemia - Apparently resolved with hemoglobin of 15.6 g/dL present on admission. 11. History of B12 deficiency - Check B12 level this admission. 12. History of tubular adenoma of colon - Noted. 13. History of diverticulitis - Noted. 14. History of IBS of constipation-type; on linaclotide - Restart linaclotide as previous once patient is able to tolerate oral intake. 16. History of cataracts - Noted. 17. History of leg cramps - Stable. 18. History of depression; on paroxetine - Restart paroxetine once nausea and vomiting resolve. 19. History of fibromyalgia - Noted. 20. History of previous cardiac catheterization - Noted. 21. History of CTS of the Right hand; s/p release - Noted. 22. History of D&C and subsequent hysterectomy - Noted. 23. History of cholecystectomy - Noted. 24. History of varicose veins; s/p sclerotherapy - Noted. 25. Listed allergy to valsartan (rash) - Noted. This agent will not be continued. 26. Listed allergy to amlodipine (?) - Noted. 27. Listed allergy to enalapril (?) - Noted. 28. Listed allergy to minoxidil (?) - Noted. 29. Listed allergy to risedronate (?) - Noted. 30. OA; with chronic back pain and history of TKR - Give Tylenol prn. 31. DVT prophylaxis - Lovenox 40 mg sq daily plus SCD's. Total time: Approximately (but not less than) 75 minutes. Charges/Coding Visit Charges Inpatient E&M: 34998 Init Hosp L3
--- NOTE | 2024-01-18 22:26 | CT_ITS ---
STUDY: CT ABDOMEN AND PELVIS WITH CONTRAST REASON FOR EXAM: Female, 83 years old. Nausea, vomiting, elevated white RADIATION DOSAGE (If Supplied By Facility): CTDIvol = ( 13.07 ) mGy, DLP = ( 771.98 ) mGycm TECHNIQUE: Transaxial images were obtained from the dome of the diaphragm to the symphysis pubis without oral contrast. IV 100mL Isovue-370 was administered. Sagittal and coronal images were reconstructed. Individualized dose optimization techniques were used for this CT. COMPARISON: January 28, 2018 FINDINGS: Minor chronic interstitial thickening in the lower lobes. Tiny nodular opacity at the right base measuring approximately 5 to 6 mm. Heart is mildly enlarged. No coronary artery calcification is observed. Small hiatal hernia is noted Nonspecific fatty infiltration of liver. There are no intrahepatic masses however there is mild bile duct dilatation likely physiologic due to prior cholecystectomy.. . Normal spleen. Normal pancreas. Normal bilateral adrenal glands. Normal right kidney. Normal left kidney. Mild nonspecific thickening of the corbett of the stomach at the gastroduodenal junction which may be consistent with nonspecific gastroduodenitis. No evidence for small bowel obstruction . Scattered diverticular changes of the colon without evidence for acute diverticulitis. No evidence for acute appendicitis. Atherosclerotic changes of the aorta without evidence for aneurysm. Normal inferior vena cava. Normal retroperitoneum. Normal urinary bladder. Uterus not visualized consistent with hysterectomy Normal abdominal wall. Lumbar spine demonstrates degenerative change. Grade 1 spondylolisthesis at L5-S1 CT/Abdomen/Pelvis W IV Cont ONLY IMPRESSION: Findings which may be consistent with nonspecific gastroduodenitis possibly due to peptic ulcer disease... Scattered diverticular changes of the colon without evidence for acute diverticulitis No evidence for small bowel obstruction or other acute abnormality Incidental finding of tiny nonspecific nodule in the right lower lobe measuring approximately 5 to 6 mm likely of no significance however would recommend further imaging utilizing Fleischner Society criteria if clinically warranted Electronically Signed: Denny Jarvis MD at 23:03 EST ,
[2024-01-18 22:33] LABS: Troponin-I HS 113 pg/mL (3.0-54.0)
[2024-01-18 23:00] VITALS: BP 175/102; PULSE 100; RESP 18; O2SAT 93
--- NOTE | 2024-01-18 23:07 | ECHOD_ITS ---
Reason For Study: HTN Procedure This was a 2D Doppler, Color Flow transthoracic echocardiogram. Exam performed portable in ICU/CCU. Left Ventricle Moderate eccentric left ventricular hypertrophy. The estimated ejection fraction is 60-65 %. Right Ventricle Normal right ventricle. Normal systolic function. Atria Normal left atrium. Normal right atrium. Mitral Valve There is mild mitral annular calcification. Trivial mitral valve insufficiency. Tricuspid Valve Normal tricuspid valve. Aortic Valve Trisinus/trileaflet aortic valve. Pulmonic Valve The pulmonic valve is not well visualized. Great Vessels Normal aortic root. Pericardium/Pleural No pericardial effusion. MMode/2D Measurements & Calculations LVIDd: 3.6 cm IVSd: 1.8 cm Ao root diam: 3.5 cm LVIDs: 1.9 cm LVPWd: 1.7 cm RVDd: 3.0 cm FS: 46.8 % LAV(MOD-bp): 56.0 ml LVAd ap4: 18.3 cm2 SV(MOD-sp4): 33.4 ml LAV(MOD-bp) Indexed: 32.5 ml/m2 LVLd ap4: 6.6 cm SI(MOD-sp4): 19.4 ml/m2 LAV(MOD-sp2): 50.4 ml EDV(MOD-sp4): 42.9 ml LAV(MOD-sp4): 55.9 ml EDV(sp4-el): 43.1 ml LVAs ap4: 7.7 cm2 LVLs ap4: 5.6 cm ESV(MOD-sp4): 9.5 ml ESV(sp4-el): 9.1 ml EF(MOD-sp4): 77.9 % EF(sp4-el): 78.9 % SV(sp4-el): 34.0 ml LA A4 area: 21.1 cm2 LA dimension(2D): 4.6 cm RA A4 area: 15.6 cm2 TAPSE: 2.6 cm Time Measurements MV dec time: 0.28 sec Doppler Measurements & Calculations MV E max andrea: 87.3 cm/sec Lat Peak E' Andrea: 4.7 cm/sec MV V2 max: 128.6 cm/sec MV A max andrea: 106.2 cm/sec E/E' lat: 18.5 MV max P.6 mmHg MV E/A: 0.82 MV V2 mean: 73.8 cm/sec MV mean P.5 mmHg MV V2 VTI: 30.7 cm MV P1/2t max andrea: 106.6 cm/sec Ao V2 max: 185.9 cm/sec LV V1 max: 150.9 cm/sec MV P1/2t: 86.1 msec Ao max P.8 mmHg LV V1 max P.1 mmHg Ao V2 mean: 137.8 cm/sec LV V1 mean P.1 mmHg MV dec slope: 362.8 cm/sec2 Ao mean P.4 mmHg LV V1 mean: 102.6 cm/sec MVA(P1/2t): 2.6 cm2 Ao V2 VTI: 39.5 cm LV V1 VTI: 29.9 cm AV (velocity ratio): 0.76 PA V2 max: 114.8 cm/sec TR max andrea: 240.4 cm/sec PA V2 mean: 84.6 cm/sec TR max P.1 mmHg ECHO/Echo Complete Interpretation Summary The estimated ejection fraction is 60-65 %. Grade II Diastolic dysfunction No signicant changes from previous echo Ordering Physician: Kal Wright Performed By: Florencio Gonzalez RCS
[2024-01-18] MEDS: Potassium Chloride Oral Tablet 20 MEQ 40 MEQ PO (23:25)
[2024-01-18] MEDS: Furosemide 40 MG/4 ML Vial IV (23:25)
[2024-01-18 23:44] VITALS: BMI 29.7
[2024-01-18 23:45] VITALS: BP 210/95; PULSE 128; RESP 19; O2SAT 93
[2024-01-18] MEDS: Pantoprazole Sodium 40 MG in 0.9% Normal Saline (100mL MB+) 100 ML 330 MG IV (23:59)
[2024-01-19] VITALS (20 sets, daily range): BP systolic 108–218; BP diastolic 55–104; PULSE 74–113; RESP 15–24; TEMP 36.2–36.6; O2SAT 90–97; BMI 29.3
[2024-01-19] MEDS: Ondansetron 4 MG/2 ML Vial IV ×3 (00:19→17:03)
[2024-01-19] MEDS: hydrALAZINE 20 MG/ML Vial 10 MG IV ×2 (00:19→20:34)
[2024-01-19] MEDS: 0.9% Saline Lock 10 ML Syringe IV ×4 (00:20→17:03)
[2024-01-19 00:44] LABS: Vitamin B12 666 pg/mL (211-911)
[2024-01-19 02:29] LABS: Cholesterol 184 mg/dL (200); High Density Lipoprotein 53 mg/dL; Thyroid Stim Hormone (TSH) 0.827 uIU/mL (0.358-3.740); Triglycerides 140 mg/dL; Very Low Density Lipoprotein 28 mg/dL (5-40)
[2024-01-19] MEDS: MELATONIN 3 MG TABLET 6 MG PO ×2 (02:37→20:06)
[2024-01-19 07:42] LABS: Hemoglobin A1c 5.3 % (3.8-5.6)
--- NOTE | 2024-01-19 09:06 | PCM.CONS.C ---
Assessment & Plan Assessment/Plan (1) Hypertensive emergency: PLAN: Patient was admitted to the hospital last evening with a hypertensive emergency. Blood pressures 240/105. This came under control with minimal IV additional medication to her Catapres patch and oral clonidine. The patient's p.o. intake been hampered by nausea and vomiting. The patient is EKG did not show any acute ischemic changes it is consistent with LVH. (2) Elevated troponin level not due myocardial infarction: PLAN: Patient's troponins are minimally elevated at 107 on the first set the delta troponin was 113. This is consistent with a hypertensive emergency in a patient with known LVH and minimal coronary artery disease on a heart catheterization 2010. Current EKG does not show any acute ischemic changes that is consistent with her known LVH. A 2D echocardiogram has been ordered. Her previous echo done August 06, 2023 showed normal LV function. Continue control of her blood pressure is a treatment at this point in time. There may be some concern for her ability to comply with her current medical regiment which needs to be addressed with the primary care team who is treating her blood pressure. No further evaluation be indicated unless something unforeseen shows up on the echocardiogram. (3) Cardiac murmur: PLAN: Patient had a cardiac murmur documented back in June 2023 at an office visit. A subsequent echo showed normal valves with no significant issues. This probably represents by character and physical exam a systolic outflow murmur related to her LVH and hypertension. Repeat 2D echo was performed today and is pending at this time. Further recommendations to be forthcoming if something unforeseen shows up on this echo. PLAN: Plan 1. Continue current medical therapy. 2. We will follow-up with any additional recommendations once results of the echocardiogram done today are available. 3. Patient should continue to follow-up with her primary care service for long-term management of her hypertension. HPI Consult Data Date of Consult: 01/19/24 HPI Narrative Reason for Consultation: Elevated troponin and hypertensive emergency HPI Narrative: JANIA SPRAGUE, is a 83 F who presents with a hypertensive emergency blood pressure in the 240/105 range. She also presented with nausea and vomiting. The patient's blood pressure is notoriously been difficult to control. She has been on a combination of clonidine patch and oral as needed clonidine in her home environment as well as ARB therapy. She has been intolerant to multiple medications including amlodipine and MIKE inhibitor's due to cough and/or rash. The patient was recently switched from losartan to valsartan. She stopped taking the valsartan and went back to the losartan about a week ago. This was due to a cough by her report. The patient has noticed her blood pressure had elevated she reports that she was compliant with her medications and she was taking supplemental as needed oral clonidine frequently but erratically. The patient was admitted to the hospital CT of the abdomen revealed gastritis and possible peptic ulcer disease. The patient does have a history of anemia. The patient's troponins were elevated minimally at 107 and then 113. BNP was 271. The patient denies any chest pain. She denies any significant shortness of breath. Her main complaint was the nausea and vomiting. EKG done in the emergency department showed normal sinus rhythm at [address] changes consistent with LVH. The patient had a recent echocardiogram done August 06, 2023. That showed normal LV function with an ejection fraction of 70% there were no regional wall motion abnormalities. The RV was normal there was no valve disease documented. The patient has a history of CVA as well as fibromyalgia. The patient had a left heart catheterization done in 2010 the LAD had a 10% stenosis there was a small first diagonal with a 40% stenosis the circumflex and right coronary had 10% stenoses. There was an EF of 70% documented with left ventricular hypertrophy. Patient has a history of hyperlipidemia managed by her primary care doctor she is on injectable therapy. The patient carries a history of cardiac murmur but there is no significant valvular heart disease this is probably consistent with an ejection murmur related to her LVH and hypertension. Since admission the patient's blood pressures come under excellent control and is 135/80 with a heart rate of 85 currently. She received a single dose of IV hydralazine last evening. She also remains on clonidine patch. The patient had a 2D echocardiogram done earlier this morning results of which are pending. 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 Tubular adenoma of colon Esophagitis Gastritis Wears contact lenses Wears glasses Fibromyalgia Depression History of steroid therapy Ambulates with cane Arthritis History of renal disease Anemia High cholesterol Back pain Difficulty swallowing History of hiatal hernia History of IBS History of diverticulitis Hx of mitral valve prolapse Gastric reflux Non-smoker Shortness of breath on exertion Leg cramps History of edema Hypertension Cardiology follow-up encounter History of echocardiogram History of stress test Stroke/cerebrovascular accident Hiatal hernia Family history of colon cancer Weight loss Cataract Home Medications ?Medication ?Instructions ?Recorded ?Last Taken ?Type acetaminophen 325 mg tablet 650 mg (2 x 325 mg) PO Q6H PRN PRN 11/30/17 Unknown Rx Mild Pain (0-3/10)/Headache loratadine 10 mg tablet 10 mg PO DAILY PRN ALLERGIES 11/30/17 Unknown Rx losartan 100 mg tablet 100 mg PO DAILY heart #30 tabs 11/30/17 07/26/21 08:15 Rx paroxetine HCl 20 mg tablet 20 mg PO DAILY mood #30 tabs 11/30/17 Unknown Rx albuterol sulfate 90 mcg/actuation 1 puff inhalation Q6H PRN SOB 07/25/21 Unknown History aerosol inhaler cholecalciferol (vitamin D3) 25 25 mcg PO DAILY supplement 07/25/21 Unknown History mcg (1,000 unit) capsule (Vitamin D3) hydrochlorothiazide 25 mg tablet 25 mg PO DAILY blood pressure 07/25/21 Unknown History multivitamin 1 tab PO DAILY SUPPLEMENT 12/26/21 Unknown History dexlansoprazole 60 mg 60 mg PO BID reflux #120 caps 12/30/21 Unknown Rx capsule,biphase delayed release (Dexilant) clonidine 0.3 mg/24 hr weekly 1 patch transdermal QWEEK 07/05/23 Unknown History transdermal patch clonidine HCl 0.1 mg tablet 0.1 mg PO DAILY PRN high blood 07/05/23 Unknown History pressure inclisiran 284 mg/1.5 mL 284 mg subcut [id number] cholesterol 07/05/23 Unknown History subcutaneous syringe linaclotide 72 mcg capsule 72 mcg PO DAILY PRN constiopation 07/05/23 Unknown History (Linzess) Allergy/AdvReac Type Severity Reaction Status Date / Time adhesive tape Allergy Other Verified 01/18/24 19:08 valsartan Allergy Rash Verified 01/18/24 19:08 amlodipine AdvReac Other Verified 01/18/24 19:08 enalaprilat (From Vasotec) AdvReac Other Verified 01/18/24 19:08 minoxidil AdvReac Other Verified 01/18/24 19:08 risedronate sodium (From AdvReac Other Verified 01/18/24 19:08 Actonel) Family History Mother Cancer pancreatic Father Colon cancer Grandmother Breast cancer Surgical History History of carpal tunnel surgery of right wrist History of partial knee replacement History of cardiac catheterization History of total knee arthroplasty History of hysterectomy History of cholecystectomy S/P sclerotherapy of varicose veins H/O dilation and curettage History of tonsillectomy H/O adenoidectomy Social History Smoking Status: Never smoker alcohol intake: current alcohol intake frequency: holidays/special occasions only substance use type: does not use caffeine: Yes Type: coffee Number of servings: 1 ROS Constitutional Constitutional: Reports as per HPI Eyes Eyes: Reports systems reviewed and no addt'l complaints, except as documented ENT HEENT: Reports systems reviewed and no addt'l complaints, except as documented Cardiovascular Cardiovascular: Reports as per HPI Respiratory/Chest Respiratory/Chest: Reports systems reviewed and no addt'l complaints, except as documented Gastrointestinal Gastrointestinal: Reports systems reviewed and no addt'l complaints, except as documented Genitourinary Genitourinary: Reports systems reviewed and no addt'l complaints, except as documented Musculoskeletal Musculoskeletal: Reports systems reviewed and no addt'l complaints, except as documented Integumentary Integumentary: Reports systems reviewed and no addt'l complaints, except as documented Neurologic Neurologic: Reports systems reviewed and no addt'l complaints, except as documented Psychiatric Psychiatric: Reports systems reviewed and no addt'l complaints, except as documented Endocrine Endocrinology: Reports systems reviewed and no addt'l complaints, except as documented Hematologic/Lymphatic Hematologic/Lymphatic: Reports systems reviewed and no addt'l complaints, except as documented Allergic/Immunologic Allergic/Immunologic: Reports systems reviewed and no addt'l complaints, except as documented Physical Exam Const alert and oriented x3 HEENT normocephalic Eyes EOMs intact bilaterally Neck no JVD Carotids: Negative for bruit Chest inspection of chest normal Resp normal respiratory effort Auscultation: crackles bilateral base Cardio regular rate and regular rhythm Heart Sounds: S1 normal, S2 normal and murmur systolic I/ soft early base and left sternal border; Negative for click or gallop GI soft to palpation Extremity no pedal edema Skin Skin Narrative: Mild hyperpigmentation of the lower extremities. Neuro Neuro Narrative: Alert and oriented x 3 Psych mental status grossly normal Risk Stratification Risk Stratification Applicable: Yes Age >/= 65: Yes >/= 3 CAD Risk Factors (HTN, HLD, DM, family hx of CAD, or current smoker): No Aspirin Use in the Past 7 Days: No Severe Angina (>/= episodes in 24 hours): No EKG ST Changes >/= 0.5mm: No Positive Cardiac Marker: Yes MANISH Risk Stratification Score: 2 MANISH % Risk: 8% Risk Charges/Coding Visit Charges Inpatient E&M: 95908 Init Hosp L3 Objective Data Vital Signs: Vital Signs Temp Pulse Resp BP Pulse Ox O2 Del Method 97.2 F L 93 15 149/61 H 90 Room Air 01/19/24 04:00 01/19/24 07:00 01/19/24 07:00 01/19/24 07:00 01/19/24 07:00 01/19/24 07:00 Oxygen Delivery Method Room Air Weight: 157 lb 10.088 oz Body Mass Index (BMI) 29.3 Intake & Output: Intake and Output for Last 24 Hours 01/17/24 01/18/24 01/19/24 23:59 23:59 23:59 Intake Total 1000 / 1000 510 / 510 Output Total 1800 / 1800 Balance 1000 / 1000 -1290 / -1290 Lab / Micro Data Attestation: I reviewed the patient's lab results. 01/18/24 19:50 01/18/24 19:50 Labs: Laboratory Results - last 24 hr 01/18/24 19:50: WBC 19.7 H, RBC 5.14, Hgb 15.6 H, Hct 47.1 H, MCV 91.6, MCH 30.4, MCHC 33.1, RDW Std Deviation 39.9, RDW Coeff of Patrizia 11.9, Plt Count 387, MPV 10.2, Immature Gran % (Auto) 0.300, Neut % (Auto) 36.6 L, Lymph % (Auto) 53.7 H, [place] % (Auto) 5.9, Eos % (Auto) 2.8, Baso % (Auto) 0.7, Absolute Neuts (auto) 7.2, Absolute Lymphs (auto) 10.61 H, Nucleated RBC % 0, Differential Comment SEE COMMENT, Atypical Lymphocytes 2+, Platelet Estimate ADEQUATE, RBC Morphology N CHROM, Anisocytosis 1+, Macrocytosis 1+, Ovalocytes RARE, PT 12.9, INR 1.0, APTT 23.6 L, Sodium 141, Potassium 3.4 L, Chloride 110 H, Carbon Dioxide 22.0, Anion Gap 9, BUN 18, Creatinine 1.06 H, Estim Creat Clear Calc 37.11, Est GFR (MDRD) Af Amer 63, Est GFR (MDRD) Non-Af 52 L, BUN/Creatinine Ratio 17.0, Glucose 122 H, Calcium 10.3 H, Troponin I High Sens 107 H, B-Natriuretic Peptide 271.6 H 01/18/24 21:21: Urine Color Yellow, Urine Clarity Clear, Urine pH 6.0, Ur Specific [place] 1.025, Urine Protein 100 H, Urine Glucose (UA) Normal, Urine Ketones 15 H, Urine Occult Blood 10 H, Urine Nitrite Negative, Urine Bilirubin Negative, Urine Urobilinogen Normal, Ur Leukocyte Esterase Negative, Urine RBC 0-5 SEEN, Urine WBC 0-5 SEEN, Ur Squamous Epith Cells 0 SEEN, Amorphous Sediment 1+, Urine Bacteria RARE, Urine Mucus 1+ 01/18/24 21:54: Troponin I High Sens 113 H, Triglycerides 140, Cholesterol 184, LDL Cholesterol 103, VLDL Cholesterol 28, HDL Cholesterol 53, Folate 22.40, TSH 0.827 01/19/24 00:05: Vitamin B12 666 01/19/24 04:05: Hemoglobin A1c 5.3 Rhythm Strip Rhythm Strip: Sinus Rhythm Rate: 85 Cardiology Labs/Tests 01/18/24 19:50: WBC 19.7 H, RBC 5.14, Hgb 15.6 H, Hct 47.1 H, MCV 91.6, MCH 30.4, MCHC 33.1, Plt Count 387, MPV 10.2, Immature Gran % (Auto) 0.300, Neut % (Auto) 36.6 L, Lymph % (Auto) 53.7 H, [place] % (Auto) 5.9, Eos % (Auto) 2.8, Baso % (Auto) 0.7, Absolute Neuts (auto) 7.2, Nucleated RBC % 0, PT 12.9, INR 1.0, APTT 23.6 L, Sodium 141, Potassium 3.4 L, Chloride 110 H, Carbon Dioxide 22.0, Anion Gap 9, BUN 18, Creatinine 1.06 H, Est GFR (MDRD) Af Amer 63, Est GFR (MDRD) Non-Af 52 L, BUN/Creatinine Ratio 17.0, Glucose 122 H, Calcium 10.3 H, B-Natriuretic Peptide 271.6 H 01/18/24 21:21: Urine Color Yellow, Urine Clarity Clear, Urine pH 6.0, Ur Specific [place] 1.025, Urine Protein 100 H, Urine Glucose (UA) Normal, Urine Ketones 15 H, Urine Occult Blood 10 H, Urine Nitrite Negative, Urine Bilirubin Negative, Urine Urobilinogen Normal, Ur Leukocyte Esterase Negative, Urine RBC 0-5 SEEN, Urine WBC 0-5 SEEN 01/18/24 21:54: Triglycerides 140, Cholesterol 184, LDL Cholesterol 103, VLDL Cholesterol 28, HDL Cholesterol 53 01/19/24 04:05: Hemoglobin A1c 5.3 Rhythm: EKG: ECHO: Stress Test: Cardiac Cath: PCI: CT Surgery: Holter monitor: EPS: PPM: CXR: Chest CT Scan: Radiography Diagnostic Testing: Radiology Impression Brain CT 01/18/24 19:38 IMPRESSION: Atrophy and mild periventricular white matter ischemic changes with old left basal ganglia infarct. No mass or acute bleed. If concern for acute infarct MRI recommended. Electronically Signed: Denny Jarvis MD at 20:36 EST , Chest X-Ray 01/18/24 20:15 IMPRESSION: No acute cardiopulmonary pathology Electronically Signed: Denny Jarvis MD at 20:46 EST , Abdomen/Pelvis CT 01/18/24 22:26 IMPRESSION: Findings which may be consistent with nonspecific gastroduodenitis possibly due to peptic ulcer disease... Scattered diverticular changes of the colon without evidence for acute diverticulitis No evidence for small bowel obstruction or other acute abnormality Incidental finding of tiny nonspecific nodule in the right lower lobe measuring approximately 5 to 6 mm likely of no significance however would recommend further imaging utilizing Fleischner Society criteria if clinically warranted Electronically Signed: Denny Jarvis MD at 23:03 EST Reading Location ID and State: [address] [place] [address] Tel , Service support ,
[2024-01-19] MEDS: Pantoprazole Sodium 40 MG in 0.9% Normal Saline (100mL MB+) 100 ML 330 MG IV (09:35)
[2024-01-19] MEDS: Acetaminophen 325 MG Tablet 650 MG PO (09:35)
[2024-01-19] MEDS: Furosemide 40 MG/4 ML Vial IV (09:35)
--- NOTE | 2024-01-19 10:45 | CASEMGMT ---
FABIOLA LAGUNAS Assessment: Face to Face with pt for initial transition planning/care coordination assessment. RN BEBO introduced self and role at [facility], pt voices understanding and consents to assessment. Pt is A&O x4 and answers all questions appropriately at this time. Pt lying in bed in no distress, pt in room sitting at bedside. Pt agreeable to DC planning with present. Care providers, pharmacy, and demographics verified/updated. Strata: 3 Admitting Dx: Hypertensize Emergency with Elevated Troponins PCP: Joaquim Specialists: Friend, JENAG Preferred Pharmacy: [facility] Insurance: MCR, [employer] Prescription Benefit: yes LNOK: , [place] Living Arrangements: Pt lives with in a 2 story home with 3 steps to enter. ADLs: Pt states I with ADLs and IADLs. Transportation: Pt drives self and denies concerns with transportation. DME: Walker, Cane, Shower chair, Walk in shower. HHC/SNF: Denies Hx of Pt states no concerns with going home at time of dc. Pt states been feeling weaker, discussed possible OP therapy. Pt denied and states will follow up with Dr. March to get a script if decides PT would be beneficial. Pt states no further concerns/needs. CM to follow. Advised pt to ask CM if any further question/concerns/needs arise, voices understanding. Pt Goal: Home Plan: Home with family support. Follow plan of care. Alia HICKS CM
[2024-01-19] MEDS: NIFEdipine 60 MG Tablet PO (12:30)
--- NOTE | 2024-01-19 13:54 | PCM.PN.HOSP ---
Reason for Visit Reason for Visit: Diagnoses Elevated white blood cell count, unspecified (01/18/24) Hypokalemia (01/18/24) Hypertensive emergency (01/18/24) Gastro-esophageal reflux disease without esophagitis (01/18/24) Cardiac murmur, unspecified (01/18/24) Nausea with vomiting, unspecified (01/18/24) Other specified abnormal findings of blood chemistry (01/18/24) Personal history of transient ischemic attack (TIA), and cerebral infarction without residual deficits (01/18/24) Personal history of other diseases of the digestive system (01/18/24) Subjective Subjective Patient was seen and examined today, he does not complain of any headache or nausea this morning. Objective Data Objective Data Vital Signs: Vital Signs Temp Pulse Resp BP Pulse Ox O2 Del Method 97.8 F 76 18 110/77 93 Room Air 01/19/24 12:00 01/19/24 12:00 01/19/24 12:00 01/19/24 12:00 01/19/24 12:00 01/19/24 12:00 Oxygen Delivery Method Room Air Weight: 71.5 kg Body Mass Index (BMI) 29.3 Intake & Output: Intake and Output for Last 24 Hours 01/17/24 01/18/24 01/19/24 23:59 23:59 23:59 Intake Total 1000 / 1000 1140 / 1140 Output Total 2625 / 2625 Balance 1000 / 1000 -1485 / -1485 Lab / Micro Data 01/18/24 19:50 01/18/24 19:50 Labs: Laboratory Results - last 24 hr 01/18/24 19:50: WBC 19.7 H, RBC 5.14, Hgb 15.6 H, Hct 47.1 H, MCV 91.6, MCH 30.4, MCHC 33.1, RDW Std Deviation 39.9, RDW Coeff of Patrizia 11.9, Plt Count 387, MPV 10.2, Immature Gran % (Auto) 0.300, Neut % (Auto) 36.6 L, Lymph % (Auto) 53.7 H, [place] % (Auto) 5.9, Eos % (Auto) 2.8, Baso % (Auto) 0.7, Absolute Neuts (auto) 7.2, Absolute Lymphs (auto) 10.61 H, Nucleated RBC % 0, Differential Comment SEE COMMENT, Atypical Lymphocytes 2+, Platelet Estimate ADEQUATE, RBC Morphology N CHROM, Anisocytosis 1+, Macrocytosis 1+, Ovalocytes RARE, PT 12.9, INR 1.0, APTT 23.6 L, Sodium 141, Potassium 3.4 L, Chloride 110 H, Carbon Dioxide 22.0, Anion Gap 9, BUN 18, Creatinine 1.06 H, Estim Creat Clear Calc 37.11, Est GFR (MDRD) Af Amer 63, Est GFR (MDRD) Non-Af 52 L, BUN/Creatinine Ratio 17.0, Glucose 122 H, Calcium 10.3 H, Troponin I High Sens 107 H, B-Natriuretic Peptide 271.6 H 01/18/24 21:21: Urine Color Yellow, Urine Clarity Clear, Urine pH 6.0, Ur Specific [place] 1.025, Urine Protein 100 H, Urine Glucose (UA) Normal, Urine Ketones 15 H, Urine Occult Blood 10 H, Urine Nitrite Negative, Urine Bilirubin Negative, Urine Urobilinogen Normal, Ur Leukocyte Esterase Negative, Urine RBC 0-5 SEEN, Urine WBC 0-5 SEEN, Ur Squamous Epith Cells 0 SEEN, Amorphous Sediment 1+, Urine Bacteria RARE, Urine Mucus 1+ 01/18/24 21:54: Troponin I High Sens 113 H, Triglycerides 140, Cholesterol 184, LDL Cholesterol 103, VLDL Cholesterol 28, HDL Cholesterol 53, Folate 22.40, TSH 0.827 01/19/24 00:05: Vitamin B12 666 01/19/24 04:05: Hemoglobin A1c 5.3 Radiography Diagnostic Testing: Radiology Impression Brain CT 01/18/24 19:38 IMPRESSION: Atrophy and mild periventricular white matter ischemic changes with old left basal ganglia infarct. No mass or acute bleed. If concern for acute infarct MRI recommended. Electronically Signed: Denny Jarvis MD at 20:36 EST , Chest X-Ray 01/18/24 20:15 IMPRESSION: No acute cardiopulmonary pathology Electronically Signed: Denny Jarvis MD at 20:46 EST , Abdomen/Pelvis CT 01/18/24 22:26 IMPRESSION: Findings which may be consistent with nonspecific gastroduodenitis possibly due to peptic ulcer disease... Scattered diverticular changes of the colon without evidence for acute diverticulitis No evidence for small bowel obstruction or other acute abnormality Incidental finding of tiny nonspecific nodule in the right lower lobe measuring approximately 5 to 6 mm likely of no significance however would recommend further imaging utilizing Fleischner Society criteria if clinically warranted Electronically Signed: Denny Jarvis MD at 23:03 EST Reading Location ID and State: [address] [place] [address] Tel , Service support , Echocardiogram 01/18/24 23:07 Interpretation Summary The estimated ejection fraction is 60-65 %. Grade II Diastolic dysfunction No signicant changes from previous echo Ordering Physician: Kal Wright Performed By: Florencio Gonzalez RCS Rhythm Strip Rhythm Strip: Sinus Rhythm Rate: 85 Physical Exam Const alert, oriented x3, no apparent distress, average body habitus and healthy appearing General Appearance: cooperative, well kempt and well developed Orientation / Consciousness: awake, oriented to person, oriented to place and oriented to time HEENT normocephalic, head/scalp atraumatic and moist oral mucous membranes Eyes PERRL, EOMs intact bilaterally and conjunctivae normal Neck supple, no JVD, thyroid normal and no carotid bruits General: trachea midline Resp normal respiratory effort and clear to auscultation bilaterally Auscultation: Negative for rales, rhonchi or wheezes Cardio regular rate, regular rhythm, S1 normal heart sound, S2 normal heart sound, no murmurs, no rub and no gallops GI normal to inspection, nondistended, normoactive bowel sounds, soft to palpation, non-tender and non-distended Extremity no clubbing, cyanosis or edema Skin no rashes or lesions noted General Skin Exam: no breakdown Neuro oriented x3, CN's II-XII intact bilaterally, moves all extremities, no focal motor deficits and no sensory deficits noted Sensorium / Orientation: awake and alert Speech: speech normal Psych affect normal Assessment & Plan Assessment/Plan (1) Hypertensive emergency: PLAN: Plan 1. Hypertensive emergency-patient's blood pressure is improved, I have decided to place patient on time-released nifedipine, she will remain on her other medications as currently ordered. I have stopped her as needed clonidine. #2 nausea and vomiting-etiology unclear, patient is currently not nauseated, I will advance her diet. #3 hyperlipidemia-patient is on outpatient injections for her cholesterol #4 chronic depression-patient is on Paxil #5 stage IIIa chronic kidney disease-complicates care, management, recovery, and prognosis #6 leukocytosis-etiology unclear, CBC will be repeated tomorrow Total clinical time spent by myself addressing patient's medical issues, reviewing all of her data, and collaborating with patient's care team: 35 minutes Charges/Coding Visit Charges Inpatient E&M: 45493 Subs Hosp L2
[2024-01-19] MEDS: diazePAM 2 MG Tablet PO (19:56)
[2024-01-19] MEDS: Pantoprazole Sodium 40 MG Tablet PO (20:06)
[2024-01-19] MEDS: Heparin Injection (Vial) 5,000 UNIT/ML VIAL 5000 UNIT SC (20:06)
[2024-01-20 02:42] VITALS: BP 134/61; PULSE 78; RESP 16; TEMP 36.3; O2SAT 94
[2024-01-20 05:28] VITALS: BMI 29.8
[2024-01-20] MEDS: Ondansetron 4 MG/2 ML Vial IV (09:26)
[2024-01-20 09:31] VITALS: BP 151/62; PULSE 92; RESP 18; TEMP 37; O2SAT 93
[2024-01-20] MEDS: Furosemide 40 MG/4 ML Vial IV (09:43)
[2024-01-20] MEDS: Heparin Injection (Vial) 5,000 UNIT/ML VIAL 5000 UNIT SC ×2 (09:43→20:23)
[2024-01-20] MEDS: Pantoprazole Sodium 40 MG Tablet PO ×2 (09:59→20:22)
--- NOTE | 2024-01-20 10:03 | PCM.PN.CARD ---
Subjective Subjective Patient continues to complain of nausea and vomiting. GI evaluation is ongoing. Blood pressure is much better controlled on her current dosing regimen. Echocardiogram done yesterday shows LV ejection fraction of 60-65% there is no significant valvular heart disease and both atria are of normal size. The patient has stage II diastolic dysfunction. This represents no significant change from her previous echocardiogram. The small bump in her enzymes appear to be secondary to hypertensive emergency on presentation and not a primary ischemic event. Objective Data Vital Signs: Vital Signs Temp Pulse Resp BP Pulse Ox O2 Del Method 98.6 F 92 18 151/62 H 93 Room Air 01/20/24 09:31 01/20/24 09:31 01/20/24 09:31 01/20/24 09:31 01/20/24 09:31 01/20/24 09:31 Oxygen Delivery Method Room Air Weight: 160 lb 5 oz Body Mass Index (BMI) 29.8 Intake & Output: Intake and Output for Last 24 Hours 01/18/24 01/19/24 01/20/24 23:59 23:59 23:59 Intake Total 1000 / 1000 1340 / 1340 100 / 100 Output Total 2625 / 2625 Balance 1000 / 1000 -1285 / -1285 100 / 100 Lab / Micro Data 01/18/24 19:50 01/18/24 19:50 Cardiology Labs/Tests Rhythm: EKG: ECHO: Stress Test: Cardiac Cath: PCI: CT Surgery: Holter monitor: EPS: PPM: CXR: Chest CT Scan: Radiography Diagnostic Testing: Radiology Impression Echocardiogram 01/18/24 23:07 Interpretation Summary The estimated ejection fraction is 60-65 %. Grade II Diastolic dysfunction No signicant changes from previous echo Ordering Physician: Kal Wright Performed By: Florencio Gonzalez RCS Physical Exam Const alert and oriented x3 HEENT normocephalic Eyes EOMs intact bilaterally Neck no JVD Chest inspection of chest normal Resp normal respiratory effort Resp Narrative: Lung sounds are clear anteriorly. Cardio Rate: regular rate Rhythm: regular rhythm Heart Sounds: S1 normal, S2 normal and murmur systolic I/ soft right sternal border; Negative for click or gallop Extremity General Extremity: edema bilateral lower extremity Details: trace Neuro Neuro Narrative: Alert and oriented x 3 Psych mental status grossly normal Assessment & Plan Assessment/Plan (1) Elevated troponin level not due myocardial infarction: PLAN: Patient is elevated troponin appears to be related to her hypertensive emergency. LV function is normal and ejection fraction 60-65% and unchanged from her old echocardiogram with no regional wall motion abnormality. No further evaluation is indicated at this time. (2) Hypertensive emergency: PLAN: Patient's blood pressure is coming under much better control. This is managed by her primary service and she should follow-up with her primary care physician for long-term management. There may be a question of compliance with the patient taking her medications as recommended. (3) Cardiac murmur: PLAN: Patient's cardiac murmur appears to be a outflow tract murmur there is no significant valvular heart disease on her echocardiogram. The patient should follow-up with cardiology on a as needed basis. PLAN: Plan 1. Continue current medical therapy. 2. Follow-up with primary care physician for long-term management of her hypertension. 3. Follow-up with cardiology on a as needed basis. 4. We will sign off and further assistance needed please reconsult us. Charges/Coding Visit Charges Inpatient E&M: 30104 Subs Hosp L2
[2024-01-20] MEDS: NIFEdipine 60 MG Tablet PO (10:11)
[2024-01-20] MEDS: proMETHazine 25 MG/ML Syringe 12.5 MG IM (11:53)
[2024-01-20] MEDS: diazePAM 2 MG Tablet PO ×2 (11:56→20:22)
--- NOTE | 2024-01-20 12:24 | MRI_ITS ---
STUDY: MR Brain W/O Contrast 01/20/2024 3:51 PM REASON FOR EXAM: Female, 83 years old. DIZZINESS COMPARISON: CT head and 2 days ago TECHNIQUE: Standardized multiplanar fat and water weighted pulse sequences were obtained. MR Brain W/O Contrast FINDINGS: There is mild cerebral atrophy with widening of the extra-axial spaces and ventricular dilatation. There are a limited number of small white matter hyperintensities, distributed throughout the deep white matter tracts of the cerebral hemispheres, consistent with mild chronic white matter ischemic changes. There is mild prominence of the vermian folia, consistent with atrophy of the vermis. The cerebellar hemispheres are normal. Normal bilateral basal ganglia. Normal thalami. There is no extra-axial fluid accumulation. Normal flow voids within the major intracranial circulation suggesting patency by spin echo criteria. Normal sella turcica, pituitary gland, infundibular stalk, optic chiasm and hypothalamus. Normal tectal plate and pineal gland. Normal midbrain, bob and medulla. Normal basal cisterns. Normal bilateral temporal bones. Normal bilateral internal auditory canals. No demonstrated orbital abnormality, within the constraints of a routine brain study. Left mastoid air cell disease. Normal calvarium and skull base. Normal visualized soft tissue structures. Normal visualized upper cervical spine. Aspect score 10 MRI/Brain without Contrast IMPRESSION: (NOT LISTED IN ORDER OF SIGNIFICANCE) There are no acute intracranial findings. Electronically Signed: Benja Chau MD at 15:53 EST ,
--- NOTE | 2024-01-20 13:18 | NURSING ---
This RN taking over care at this time
[2024-01-20 15:00] VITALS: BP 122/80; PULSE 79; RESP 18; TEMP 36.7; O2SAT 95
--- NOTE | 2024-01-20 15:27 | PCM.PN.HOSP ---
Reason for Visit Reason for Visit: Diagnoses Elevated white blood cell count, unspecified (01/18/24) Hypokalemia (01/18/24) Hypertensive emergency (01/18/24) Gastro-esophageal reflux disease without esophagitis (01/18/24) Cardiac murmur, unspecified (01/18/24) Nausea with vomiting, unspecified (01/18/24) Other specified abnormal findings of blood chemistry (01/18/24) Personal history of transient ischemic attack (TIA), and cerebral infarction without residual deficits (01/18/24) Personal history of other diseases of the digestive system (01/18/24) Subjective Subjective Patient was seen and examined today, she complaints of dizziness, she states the Valium helps this. Patient's blood pressure is under better control at this time. I have decided to order an MRI of the brain to rule out stroke, patient does take a baby aspirin a day for stroke prevention. I have also decided to place the patient on programmed Valium to see if this will help with the dizziness. Objective Data Objective Data Vital Signs: Vital Signs Temp Pulse Resp BP Pulse Ox O2 Del Method 98.1 F 79 18 122/80 H 95 Room Air 01/20/24 15:00 01/20/24 15:00 01/20/24 15:00 01/20/24 15:00 01/20/24 15:00 01/20/24 15:00 Oxygen Delivery Method Room Air Weight: 72.717 kg Body Mass Index (BMI) 29.8 Intake & Output: Intake and Output for Last 24 Hours 01/18/24 01/19/24 01/20/24 23:59 23:59 23:59 Intake Total 1000 / 1000 1340 / 1340 100 / 100 Output Total 2625 / 2625 Balance 1000 / 1000 -1285 / -1285 100 / 100 Lab / Micro Data 01/18/24 19:50 01/18/24 19:50 Rhythm Strip Rhythm Strip: Sinus Rhythm Rate: 85 Physical Exam Narrative alert, oriented x3, no apparent distress, average body habitus and healthy appearing General Appearance: cooperative, well kempt and well developed Orientation / Consciousness: awake, oriented to person, oriented to place and oriented to time HEENT normocephalic, head/scalp atraumatic and moist oral mucous membranes Eyes PERRL, EOMs intact bilaterally and conjunctivae normal Neck supple, no JVD, thyroid normal and no carotid bruits General: trachea midline Resp normal respiratory effort and clear to auscultation bilaterally Auscultation: Negative for rales, rhonchi or wheezes Cardio regular rate, regular rhythm, S1 normal heart sound, S2 normal heart sound, no murmurs, no rub and no gallops GI normal to inspection, nondistended, normoactive bowel sounds, soft to palpation, non-tender and non-distended Extremity no clubbing, cyanosis or edema Skin no rashes or lesions noted General Skin Exam: no breakdown Neuro oriented x3, CN's II-XII intact bilaterally, moves all extremities, no focal motor deficits and no sensory deficits noted Sensorium / Orientation: awake and alert Speech: speech normal Psych affect normal Assessment & Plan Assessment/Plan (1) Hypertensive emergency: PLAN: Plan 1. Hypertensive emergency-patient's blood pressure appears to be improved on nifedipine, due to her complaints of dizziness I have decided to proceed with an MRI of the brain tomorrow. Patient was placed on programmed Valium for dizziness. #2 nausea and vomiting-resolved at this time #3 hyperlipidemia-patient is on outpatient injections for her cholesterol #4 chronic depression-patient is on Paxil #5 stage IIIa chronic kidney disease-complicates care, management, recovery, and prognosis #6 leukocytosis-etiology unclear, CBC will be repeated tomorrow #7 troponin elevation secondary to uncontrolled [id number] was ruled out Total clinical time spent by myself addressing patient's medical issues, reviewing all of her data, and collaborating with patient's care team: 35 minutes Charges/Coding Visit Charges Inpatient E&M: 61825 Subs Hosp L2
[2024-01-20 20:06] VITALS: BP 139/70; PULSE 78; RESP 16; TEMP 36.7; O2SAT 94
[2024-01-20] MEDS: MELATONIN 3 MG TABLET 6 MG PO (20:22)
[2024-01-20] MEDS: Aspirin E.C. 81 MG Tablet PO (20:22)
[2024-01-21] VITALS (8 sets, daily range): BP systolic 133–179; BP diastolic 70–86; PULSE 64–90; RESP 16; TEMP 36.6–36.8; O2SAT 93–96; BMI 29.7
[2024-01-21 03:52] LABS: Absolute Lymphocyte Count 4.95 X10^3/uL (0.83-4.51); Absolute Neutrophil Count 5.6 X10^3/uL (2.0-7.7); Basophil# 0.12 X10^3/uL; Eosinophil# 0.32 X10^3/uL; Eosinophils% 2.6 % (0-5); Hematocrit 41.3 % (37-47); Hemoglobin 13.6 g/dL (12.0-15.0); Lymphocyte # 4.95 X10^3/ul (0.83-4.51); Lymphocyte % 39.8 % (19-41); Mean Corp Hgb Conc 32.9 g/dL (32-36); Mean Corpuscular Hgb 30.6 pg (27.0-32.0); Mean Platelet Vol. 9.9 fl (6.2-12.0); Monocyte# 1.37 X10^3/uL; NRBC Flagged by Analyzer 0 % (0-5); Neutrophil # 5.61 X10^3/uL (2.7-7.7); Neutrophil % 45.1 % (47-70); Platelet Count 292 K/mm3 (150-450); RBC Distribution Width CV 12.3 % (11.6-14.6); RBC Distribution Width SD 42.2 fl (35.1-43.9); Red Blood Count 4.44 M/mm3 (4.2-5.4); White Blood Count 12.4 K/mm3 (4.4-11.0)
[2024-01-21 04:09] LABS: Anion Gap 5 (5-15); BUN 23 mg/dL (7-18); BUN/Creat Ratio 16.8 RATIO (10-20); Calcium,Total 10.2 mg/dL (8.5-10.1); Chloride 106 mmol/L (98-107); Creatinine, Serum 1.37 mg/dL (0.55-1.02); EST Glomerular Filtration Rate 39 mL/min (>60); Est Glom Filt Rate - Afr Amer 47 mL/min (>60); Estimated Creatinine Clearance 27.88 ml/min; Glucose 111 mg/dL (74-106); Potassium 3.5 mmol/L (3.5-5.1); Sodium Level 140 mmol/L (136-145)
[2024-01-21] MEDS: diazePAM 2 MG Tablet PO ×3 (06:17→21:32)
[2024-01-21] MEDS: Furosemide 40 MG/4 ML Vial IV (09:09)
[2024-01-21] MEDS: Pantoprazole Sodium 40 MG Tablet PO ×2 (09:09→21:26)
[2024-01-21] MEDS: NIFEdipine 60 MG Tablet PO (09:09)
[2024-01-21] MEDS: Heparin Injection (Vial) 5,000 UNIT/ML VIAL 5000 UNIT SC ×2 (09:10→21:26)
--- NOTE | 2024-01-21 15:35 | PN.HOSP_ITS ---
Subjective Subjective Doing well, still having some dizziness especially when she looks to the left Objective Data Objective Data Vital Signs: Vital Signs Temp Pulse Resp BP Pulse Ox O2 Del Method 98.0 F 83 16 150/82 H 96 Room Air 01/21/24 15:03 01/21/24 15:03 01/21/24 15:03 01/21/24 15:03 01/21/24 15:03 01/21/24 15:03 Oxygen Delivery Method Room Air Weight: 159 lb 13.362 oz Body Mass Index (BMI) 29.7 Intake & Output: Intake and Output for Last 24 Hours 01/20/24 01/21/24 01/22/24 03:59 03:59 03:59 Intake Total 1030 / 1030 660 / 660 450 / 450 Output Total 1325 / 1325 Balance -295 / -295 660 / 660 450 / 450 Lab / Micro Data 01/21/24 03:26 01/21/24 03:26 Labs: Laboratory Results - last 24 hr 01/21/24 03:26: WBC 12.4 H, RBC 4.44, Hgb 13.6, Hct 41.3, MCV 93.0, MCH 30.6, MCHC 32.9, RDW Std Deviation 42.2, RDW Coeff of Patrizia 12.3, Plt Count 292, MPV 9.9, Immature Gran % (Auto) 0.500, Neut % (Auto) 45.1 L, Lymph % (Auto) 39.8, M candy % (Auto) 11.0 H, Eos % (Auto) 2.6, Baso % (Auto) 1.0, Absolute Neuts (auto) 5.6, Absolute Lymphs (auto) 4.95 H, Nucleated RBC % 0, Sodium 140, Potassium 3.5, Chloride 106, Carbon Dioxide 29.0, Anion Gap 5, BUN 23 H, Creatinine 1.37 H , Estim Creat Clear Calc 27.88, Est GFR (MDRD) Af Amer 47 L, Est GFR (MDRD) Non- Af 39 L, BUN/Creatinine Ratio 16.8, Glucose 111 H, Calcium 10.2 H Radiography Diagnostic Testing: Radiology Impression Brain MRI 01/20/24 12:24 IMPRESSION: (NOT LISTED IN ORDER OF SIGNIFICANCE) There are no acute intracranial findings. Electronically Signed: Benja Chau MD at 15:53 EST Reading Location ID and State: [facility] / [place] , Service support , Rhythm Strip Rhythm Strip: Sinus Rhythm Rate: 85 Physical Exam Narrative General: Alert, Oriented x3, Cooperative, No apparent distress HEENT: Atraumatic, PERRLA, EOMI, Normocephalic, nystagmus to the left Oral: Moist Mucosa Neck: Supple, No JVD Lungs: Diminished, Normal air movement, No rhonchi, No wheeze, No rales Cardiovascular: Regular rate, Regular Rhythm, Normal S1, Normal S2, No murmurs Abdomen: Soft, Non Tender, Non-Distended, No Hepato-splenomegaly Extremities: No edema, Capillary Refill Less than 3 Seconds Skin: No rashes, No breakdown Musculoskeletal: No Tenderness to Palpation of Joints or Extremities Neurological: No focal neurological deficits, Motor Exam 5/5 strength throughout, Sensory exam intact to light touch and pain Psych/Mental Status: Normal Affect, Appropriate Assessment & Plan Assessment/Plan (1) Hypertensive emergency: PLAN: Plan 1. BPPV with hypertensive emergency ? Continue with her blood pressure medications, does appear to be under a low bit better control with nifedipine ? MRI is negative for stroke ? PT/OT with outpatient vestibular therapy ? She says that her vertigo was low but improved today and she was able to ambulate with a walker ? Will add meclizine 2. Essential HTN/HLD ? Continue with her blood pressure medications ? Monitor make adjustments as necessary ?Her losartan has been held and she was placed on IV Lasix and nifedipine 3. Anxiety/depression ? Stable ? Continue with her home medications 4. CKD 3 ? Renal function appears to be at baseline 5. Leukocytosis ? It appears of resolved without any antibiotic intervention DVT: SCDs Charges/Coding Visit Charges Inpatient E&M: 97909 Subs Hosp L2
[2024-01-21] MEDS: MELATONIN 3 MG TABLET 6 MG PO (21:26)
[2024-01-21] MEDS: Aspirin E.C. 81 MG Tablet PO (21:26)
[2024-01-21] MEDS: Acetaminophen 325 MG Tablet 650 MG PO (21:32)
[2024-01-21] MEDS: Ondansetron 4 MG/2 ML Vial IV (21:33)
[2024-01-21] MEDS: 0.9% Saline Lock 10 ML Syringe IV (21:33)
[2024-01-22] VITALS (8 sets, daily range): BP systolic 128–209; BP diastolic 60–77; PULSE 74–92; RESP 16; TEMP 36.5–36.9; O2SAT 92–97; BMI 29.7
[2024-01-22] MEDS: hydrALAZINE 20 MG/ML Vial 10 MG IV ×2 (03:22→20:19)
[2024-01-22] MEDS: 0.9% Saline Lock 10 ML Syringe IV ×2 (03:28→20:06)
[2024-01-22] MEDS: diazePAM 2 MG Tablet PO (06:23)
[2024-01-22 06:27] LABS: Absolute Neutrophil Count 4.8 X10^3/uL (2.0-7.7); Basophil% 0.9 % (0-1); Eosinophil# 0.39 X10^3/uL; Eosinophils% 3.7 % (0-5); Hemoglobin 13.8 g/dL (12.0-15.0); Lymphocyte % 40.3 % (19-41); Mean Corp Hgb Conc 32.1 g/dL (32-36); Mean Corpuscular Hgb 29.9 pg (27.0-32.0); Mean Corpuscular Volume 93.3 fL (81-99); Mean Platelet Vol. 10.1 fl (6.2-12.0); Monocyte# 1.02 X10^3/uL; Monocyte% 9.6 % (0-10); NRBC Flagged by Analyzer 0 % (0-5); Neutrophil # 4.83 X10^3/uL (2.7-7.7); Neutrophil % 45.2 % (47-70); Platelet Count 292 K/mm3 (150-450); RBC Distribution Width CV 12.3 % (11.6-14.6); RBC Distribution Width SD 42.1 fl (35.1-43.9); Red Blood Count 4.61 M/mm3 (4.2-5.4); White Blood Count 10.7 K/mm3 (4.4-11.0)
[2024-01-22 06:53] LABS: Anion Gap 5 (5-15); BUN 25 mg/dL (7-18); BUN/Creat Ratio 19.8 RATIO (10-20); Calcium,Total 10.3 mg/dL (8.5-10.1); Chloride 109 mmol/L (98-107); Creatinine, Serum 1.26 mg/dL (0.55-1.02); EST Glomerular Filtration Rate 43 mL/min (>60); Est Glom Filt Rate - Afr Amer 52 mL/min (>60); Estimated Creatinine Clearance 30.29 ml/min; Glucose 108 mg/dL (74-106); Potassium 3.4 mmol/L (3.5-5.1); Sodium Level 142 mmol/L (136-145)
[2024-01-22] MEDS: Meclizine HCl 25 MG Tablet PO ×2 (09:07→15:35)
[2024-01-22] MEDS: Pantoprazole Sodium 40 MG Tablet PO ×2 (09:07→20:05)
[2024-01-22] MEDS: Heparin Injection (Vial) 5,000 UNIT/ML VIAL 5000 UNIT SC ×2 (09:07→20:05)
[2024-01-22] MEDS: NIFEdipine 60 MG Tablet PO (09:07)
[2024-01-22] MEDS: Furosemide 40 MG Tablet PO (09:07)
--- NOTE | 2024-01-22 09:46 | PN.HOSP_ITS ---
Subjective Subjective I had some high blood pressures overnight and says that she is just feeling off this morning Objective Data Objective Data Vital Signs: Vital Signs Temp Pulse Resp BP Pulse Ox O2 Del Method 97.7 F L 91 16 145/70 H 97 Room Air 01/22/24 08:58 01/22/24 08:58 01/22/24 08:58 01/22/24 08:58 01/22/24 08:58 01/22/24 08:58 Oxygen Delivery Method Room Air Weight: 160 lb 0.889 oz Body Mass Index (BMI) 29.7 Intake & Output: Intake and Output for Last 24 Hours 01/21/24 01/22/24 01/23/24 03:59 03:59 03:59 Intake Total 660 / 660 1250 / 1250 Balance 660 / 660 1250 / 1250 Lab / Micro Data 01/22/24 05:38 01/22/24 05:38 Labs: Laboratory Results - last 24 hr 01/22/24 05:38: WBC 10.7, RBC 4.61, Hgb 13.8, Hct 43.0, MCV 93.3, MCH 29.9, MCHC 32.1, RDW Std Deviation 42.1, RDW Coeff of Patrizia 12.3, Plt Count 292, MPV 10.1, Immature Gran % (Auto) 0.300, Neut % (Auto) 45.2 L, Lymph % (Auto) 40.3, [place]orte % (Auto) 9.6, Eos % (Auto) 3.7, Baso % (Auto) 0.9, Absolute Neuts (auto) 4.8, Absolute Lymphs (auto) 4.30, Nucleated RBC % 0, Sodium 142, Potassium 3.4 L, C hloride 109 H, Carbon Dioxide 28.0, Anion Gap 5, BUN 25 H, Creatinine 1.26 H, Estim Creat Clear Calc 30.29, Est GFR (MDRD) Af Amer 52 L, Est GFR (MDRD) Non-Af 43 L, BUN/Creatinine Ratio 19.8, Glucose 108 H, Calcium 10.3 H Rhythm Strip Rhythm Strip: Sinus Rhythm Rate: 85 Physical Exam Narrative General: Alert, Oriented x3, Cooperative, No apparent distress HEENT: Atraumatic, PERRLA, EOMI, Normocephalic, nystagmus to the left Oral: Moist Mucosa Neck: Supple, No JVD Lungs: Diminished, Normal air movement, No rhonchi, No wheeze, No rales Cardiovascular: Regular rate, Regular Rhythm, Normal S1, Normal S2, No murmurs Abdomen: Soft, Non Tender, Non-Distended, No Hepato-splenomegaly Extremities: No edema, Capillary Refill Less than 3 Seconds Skin: No rashes, No breakdown Musculoskeletal: No Tenderness to Palpation of Joints or Extremities Neurological: No focal neurological deficits, Motor Exam 5/5 strength throughout, Sensory exam intact to light touch and pain Psych/Mental Status: Normal Affect, Appropriate Assessment & Plan Assessment/Plan (1) Hypertensive emergency: PLAN: Plan 1. BPPV with hypertensive emergency ? Continue with her blood pressure medications, her losartan was held and she was started on nifedipine, will continue her hydrochlorothiazide today ? MRI is negative for stroke ? PT/OT with outpatient vestibular therapy ?States she feels a little bit off though her vertigo is not any worse ?Discontinue Valium continue with meclizine 2. Essential HTN/HLD ? Continue with her blood pressure medications ? Monitor make adjustments as necessary ?Her losartan has been held and she was placed on IV Lasix and nifedipine, Lasix was transitioned to p.o. 3. Anxiety/depression ? Stable ? Continue with her home medications 4. CKD 3 ? Renal function appears to be at baseline 5. Leukocytosis ? It appears of resolved without any antibiotic intervention DVT: SCDs Charges/Coding Visit Charges Inpatient E&M: 20554 Subs Hosp L2
[2024-01-22] MEDS: hydroCHLOROthiazide 25 MG Tablet PO (11:04)
[2024-01-22] MEDS: Polyethylene Glycol 3350 17 GM PACKET PO (19:41)
[2024-01-22] MEDS: MELATONIN 3 MG TABLET 6 MG PO (20:04)
[2024-01-22] MEDS: Ondansetron 4 MG/2 ML Vial IV (20:06)
[2024-01-22] MEDS: Aspirin E.C. 81 MG Tablet PO (20:06)
[2024-01-23 03:40] VITALS: BP 175/82; PULSE 80; RESP 16; TEMP 36.7; O2SAT 96
[2024-01-23 05:52] VITALS: BMI 30.8
[2024-01-23 07:38] LABS: Absolute Lymphocyte Count 3.72 X10^3/uL (0.83-4.51); Absolute Neutrophil Count 5.8 X10^3/uL (2.0-7.7); Basophil# 0.08 X10^3/uL; Basophil% 0.7 % (0-1); Eosinophils% 2.7 % (0-5); Hematocrit 42.3 % (37-47); Lymphocyte # 3.72 X10^3/ul (0.83-4.51); Lymphocyte % 34.1 % (19-41); Mean Corp Hgb Conc 33.1 g/dL (32-36); Mean Corpuscular Hgb 30.6 pg (27.0-32.0); Mean Corpuscular Volume 92.4 fL (81-99); Mean Platelet Vol. 9.8 fl (6.2-12.0); Monocyte# 0.98 X10^3/uL; NRBC Flagged by Analyzer 0 % (0-5); Neutrophil % 53.1 % (47-70); Platelet Count 288 K/mm3 (150-450); RBC Distribution Width CV 12.3 % (11.6-14.6); RBC Distribution Width SD 41.7 fl (35.1-43.9); Red Blood Count 4.58 M/mm3 (4.2-5.4); White Blood Count 10.9 K/mm3 (4.4-11.0)
[2024-01-23 08:02] LABS: Anion Gap 7 (5-15); BUN 30 mg/dL (7-18); BUN/Creat Ratio 20.3 RATIO (10-20); Calcium,Total 10.5 mg/dL (8.5-10.1); Chloride 108 mmol/L (98-107); Creatinine, Serum 1.48 mg/dL (0.55-1.02); EST Glomerular Filtration Rate 36 mL/min (>60); Est Glom Filt Rate - Afr Amer 43 mL/min (>60); Estimated Creatinine Clearance 26.27 ml/min; Glucose 115 mg/dL (74-106); Potassium 3.5 mmol/L (3.5-5.1); Sodium Level 142 mmol/L (136-145)
[2024-01-23] MEDS: NIFEdipine 60 MG Tablet PO (08:09)
[2024-01-23 10:00] VITALS: BP 116/79; PULSE 103; RESP 18; TEMP 36.5; O2SAT 94
--- NOTE | 2024-01-23 10:27 | PCM.DC ---
Discharge Instructions Diet Discharge Diet: Low fat / Low cholesterol DC O2, CPAP, BIPAP needs Additional Home O2 Discharge instructions: No Dressing / Incision Discharge Activity: Return to Normal Activity Dressing / Incision Call your doctor if you observe: Fever of 101 or Higher, Shortness of breath, Dizziness, Fainting spells, Swelling in the ankles, Chest pain and Increased palpitations (irregular heartbeat) Follow Up Care Test Results: Test results from this visit will be discussed in further detail at your follow-up appointment, if applicable. Discharge Plan Admission Admit Date/Time: 01/18/24 22:57 Attending Provider: Cal Billings Primary Care Provider: Brandon March [employer] Providers: Kal Wright; Linda Lee; Bárbara Sandoval; Moisés Bartlett; Bennie Landrum; Se Ellis; Luan Guzman; Ronny Wilson; Kevin Nesbitt; Arthur Hernandez; Son Garrido NP; Jazmyn Cabrera; Macario Allen Instructions Additional Instructions / Restrictions: Take MiraLAX as needed for constipation. Follow-up with your PCP in 3 to 5 days to monitor your lab work and your blood pressures to make any medication adjustments as necessary Discharge Orders/Prescriptions Prescriptions: New meclizine 25 mg Tablet 25 mg PO TID PRN PRN (Reason: Vertigo) 5 Days Qty: 15 0RF Continued dexlansoprazole [Dexilant] 60 mg capsule,biphase delayed releas 60 mg PO BID Qty: 120 4RF clonidine 0.3 mg/24 hr patch weekly 1 patch transdermal QWEEK Linzess 72 mcg capsule 72 mcg PO DAILY PRN (Reason: constiopation) inclisiran 284 mg/1.5 mL syringe 284 mg subcut [id number] multivitamin Tablet 1 tab PO DAILY acetaminophen 325 MG tablet 650 mg PO Q6H PRN PRN (Reason: Mild Pain (0-3/10)/Headache) 0RF paroxetine HCl 20 MG tablet 20 mg PO DAILY Qty: 30 0RF losartan 100 MG tablet 100 mg PO DAILY Qty: 30 0RF loratadine 10 MG tablet 10 mg PO DAILY PRN (Reason: ALLERGIES) 0RF hydrochlorothiazide 25 mg Tablet 25 mg PO DAILY albuterol sulfate 90 mcg/actuation Hfa Aerosol Inhaler 1 puff INHALATION Q6H PRN (Reason: SOB) cholecalciferol (vitamin D3) [Vitamin D3] 25 mcg (1,000 unit) Capsule 25 mcg PO DAILY clonidine HCl 0.1 mg tablet 0.1 mg PO DAILY PRN (Reason: high blood pressure) Referrals / Follow Up: Luan Guzman MD [Med Staff - Active Staff] - 02/25/24 11:00 am Brandon March Chi, MD [Primary Care Provider] - Within 1 Week Disposition Disposition (needs filled in before D/C Order can be placed): Home, Self Care
[2024-01-23] MEDS: Meclizine HCl 25 MG Tablet PO (10:50)
[2024-01-23] MEDS: Polyethylene Glycol 3350 17 GM PACKET PO (10:50)
[2024-01-23] MEDS: Pantoprazole Sodium 40 MG Tablet PO (10:50)
[2024-01-23] MEDS: Heparin Injection (Vial) 5,000 UNIT/ML VIAL 5000 UNIT SC (10:51)
[2024-01-23] MEDS: hydroCHLOROthiazide 25 MG Tablet PO (10:51)
[2024-01-23 10:57] VITALS: BP 116/79; PULSE 102
[2024-01-23] MEDS: Metoprolol Tartrate 25 MG Tablet 12.5 MG PO (10:57)
--- NOTE | 2024-01-23 11:30 | CASEMGMT ---
Patient has order for discharge. RN CM in to discuss needs at discharge. Patient states she would like outpatient vestibular therapy at [facility]. FABIOLA CM updated patient that CM would obtain script and send to [facility] with request for [facility] to call patient to schedule appt. Patient voiced understanding and appreciation. Patient had no further questions or concerns.
--- NOTE | 2024-01-23 13:25 | PHA.DC.MC.R ---
Pharmacy [facility] Pharmacy Service has performed discharge medication reconciliation and counseling for this patient. 1. MECLIZINE 25MG PO TID PRN VERTIGO The patient's discharge medication list was reviewed for discrepancies and discrepancies were resolved. The patient was counseled on the following discharge medications and changes in medications for homegoing were reviewed. The Reason for Use, instructions for use, and potential side effects were reviewed for all new medications. The patient's questions regarding all of their medications were answered. The patient was able to verbally demonstrate an understanding of their discharge medications. Medications at Discharge Home Medications acetaminophen 325 mg tablet 650 mg (2 x 325 mg) PO Q6H PRN PRN Mild Pain (0-3/10)/Headache 11/30/17 loratadine 10 mg tablet 10 mg PO DAILY PRN ALLERGIES 11/30/17 losartan 100 mg tablet 100 mg PO DAILY heart #30 tabs 11/30/17 paroxetine HCl 20 mg tablet 20 mg PO DAILY mood #30 tabs 11/30/17 albuterol sulfate 90 mcg/actuation aerosol inhaler 1 puff inhalation Q6H PRN SOB 07/25/21 cholecalciferol (vitamin D3) 25 mcg (1,000 unit) capsule (Vitamin D3) 25 mcg PO DAILY supplement 07/25/21 hydrochlorothiazide 25 mg tablet 25 mg PO DAILY blood pressure 07/25/21 multivitamin 1 tab PO DAILY SUPPLEMENT 12/26/21 dexlansoprazole 60 mg capsule,biphase delayed release (Dexilant) 60 mg PO BID reflux #120 caps 12/30/21 clonidine 0.3 mg/24 hr weekly transdermal patch 1 patch transdermal QWEEK 07/05/23 clonidine HCl 0.1 mg tablet 0.1 mg PO DAILY PRN high blood pressure 07/05/23 inclisiran 284 mg/1.5 mL subcutaneous syringe 284 mg subcut [id number] cholesterol 07/05/23 linaclotide 72 mcg capsule (Linzess) 72 mcg PO DAILY PRN constiopation 07/05/23 meclizine 25 mg tablet 25 mg PO TID PRN PRN Vertigo 5 days #15 tabs 01/23/24
--- NOTE | 2024-01-23 14:00 | DS.PCM_ITS ---
Providers Date of Admission: 01/18/24 Primary Care Physician: Dr. Brandon March MD Consultations 01/18/24 23:41 Consult: Cardiology Routine Consulting Provider: Sana Raymond Reason for Consult: Hypertensive Emergency with Elevated Troponins. EMERGENT Consult: No MD Notified: Yes Date Notified: 01/18/24 Time Notified: 23:02 Method of Notification: Verbal Reason For Visit: HYPERTENSIVE EMERGENCY WITH ELEVATED TROPONINS AND Diagnosis Discharge Diagnosis (1) Hypertensive emergency: Status: Acute Code(s): I16.1 - Hypertensive emergency Medications at Discharge Home Medications acetaminophen 325 mg tablet 650 mg (2 x 325 mg) PO Q6H PRN PRN Mild Pain (0- 3/10)/Headache 11/30/17 loratadine 10 mg tablet 10 mg PO DAILY PRN ALLERGIES 11/30/17 losartan 100 mg tablet 100 mg PO DAILY heart #30 tabs 11/30/17 paroxetine HCl 20 mg tablet 20 mg PO DAILY mood #30 tabs 11/30/17 albuterol sulfate 90 mcg/actuation aerosol inhaler 1 puff inhalation Q6H PRN SOB 07/25/21 cholecalciferol (vitamin D3) 25 mcg (1,000 unit) capsule (Vitamin D3) 25 mcg PO DAILY supplement 07/25/21 hydrochlorothiazide 25 mg tablet 25 mg PO DAILY blood pressure 07/25/21 multivitamin 1 tab PO DAILY SUPPLEMENT 12/26/21 dexlansoprazole 60 mg capsule,biphase delayed release (Dexilant) 60 mg PO BID reflux #120 caps 12/30/21 clonidine 0.3 mg/24 hr weekly transdermal patch 1 patch transdermal QWEEK 07/05/23 clonidine HCl 0.1 mg tablet 0.1 mg PO DAILY PRN high blood pressure 07/05/23 inclisiran 284 mg/1.5 mL subcutaneous syringe 284 mg subcut [id number] cholesterol 07/05/23 linaclotide 72 mcg capsule (Linzess) 72 mcg PO DAILY PRN constiopation 07/05/23 meclizine 25 mg tablet 25 mg PO TID PRN PRN Vertigo 5 days #15 tabs 01/23/24 metoprolol tartrate 25 mg tablet 12.5 mg (1/2 x 25 mg) PO BID 30 days #30 tabs 01/23/24 Hospital Course Operations None Procedures 2-D Echocardiogram Summary of Care Provided Minutes Spent on Discharge: 33 Hospital Course: Per HPI: JANIA SPRAGUE, is a 83 F with a past medical history of poorly- controlled hypertension; on losartan, hydrochlorothiazide and clonidine patch with as needed oral clonidine for blood pressure spikes, hyperlipidemia; on inclisiran injections q. 6 months, overweight; with BMI of 29.7 this admission, history of CVA; with hemiplegia and hemiparesis, history of mitral valve prolapse, CKD; stage IIIa, history of anemia, history of B12 deficiency, history of tubular adenoma of colon, history of diverticulitis, history of IBS of constipation-type; on linaclotide, history of cataracts, history of leg cramps, hiatal hernia, GERD; with history of esophagitis and gastritis on dexlansoprazole 60 mg p.o. BID, history of depression; on paroxetine, history of fibromyalgia, history of previous cardiac catheterization, history of CTS of the Right hand; s/p release, history of hysterectomy, history of cholecystectomy, history of varicose veins; s/p sclerotherapy, history of D&C, listed allergy to valsartan (rash), listed allergy to amlodipine (?), listed allergy to enalapril (?), listed allergy to minoxidil (?), listed allergy to risedronate (?) and OA; with chronic back pain and history of TKR who presents to [facility] ER complaining of highly elevated blood pressure of 238/105 mmHg at home along with nausea and vomiting. Ms. Sprague reports her symptoms began approximately 4 weeks ago when she was seen by one of her physicians for uncontrolled hypertension and she was taken off of her losartan and placed on a different medication which she does not remember. She continued to take her hydrochlorothiazide and clonidine 0.3 mg TTS patch weekly. She suspected the new medication caused her to have a dry mouth so she stopped taking this medication and went back on her 100 mg of losartan daily approximately 1 week ago. Then earlier this evening she got up from a seated position and felt lightheaded and nauseous. She then took her blood pressure which was highly elevated at 238/105 mmHg so she then tried to take oral clonidine and immediately vomited up this medication so she then decided to activate EMS to be brought in for further evaluation and treatment. EMS did give IV Zofran en-route. She denies associated headache, visual changes, upper respiratory infection symptoms, neck pain, chest pain, shortness of breath, abdominal pain, dysuria, numbness or tingling or new focal neurologic deficits. In the ER she was noted to have an initial blood pressure of 246/138 mmHg and was emergently treated with IV hydralazine followed by oral clonidine with blood pressure dropping to 180/74 mmHg complicated by a mildly elevated troponin of 113 pg/mL present on admission consistent with Hypertensive Emergency causing suspected Acute Cardiac Strain complicated by laboratory evidence of severe Leukocytosis of 19.7 K present on admission with negative chest x-ray and unremarkable urinalysis with initial clinical suspicion of acute stress response to recent illness compounded by laboratory evidence of hypokalemia of 3.4 mmol/L present on admission with clinical evidence of intractable nausea and vomiting with corresponding CT of the abdomen and pelvis confirming evidence of gastritis, esophagitis and suspected PUD and she was then admitted to the ICU for ongoing care for status expected to extend beyond 2 midnights. Hospital Course: 1. BPPV with hypertensive emergency/essential HTN?83-year-old female presented to the hospital with vertigo and elevated blood pressures. During her hospitalization there was concern for stroke so she was started on aspirin and had an MRI. The MRI was negative for stroke. She did have some left lateral nystagmus and felt dizzy whenever she looked to the left so physical therapy was consulted and recommended outpatient vestibular therapy. She did start to feel little bit drowsy because she was on Valium 3 times a day for the vertigo so this will transition to meclizine. Also for her blood pressure her losartan had been held and she was started on nifedipine and Lasix however she was already on hydrochlorothiazide and losartan on the outpatient side therefore I restarted her hydrochlorothiazide and losartan and added metoprolol as her heart rate would sit in the 80s and low 90s during her hospitalization. I do recommend that she follow-up with her PCP as an outpatient in the next 3 to 5 days to monitor her blood pressure and make any adjustments as necessary if she is doing well with the beta-chris but her pressures are still elevated may need to consider transitioning to Coreg, she is already on clonidine 0.3 mg transdermally once a week. I discussed with her the plan for discharge today she expressed understanding there is benefits going home and would like to go home today. 2. Hyperlipidemia, anxiety, depression, CKD 3, are all chronic medical conditions which complicate her care. Her home medications were continued where appropriate Physical Exam Narrative General: Alert, Oriented x3, Cooperative, No apparent distress HEENT: Atraumatic, PERRLA, EOMI, Normocephalic, nystagmus to the left Oral: Moist Mucosa Neck: Supple, No JVD Lungs: Diminished, Normal air movement, No rhonchi, No wheeze, No rales Cardiovascular: Regular rate, Regular Rhythm, Normal S1, Normal S2, No murmurs Abdomen: Soft, Non Tender, Non-Distended, No Hepato-splenomegaly Extremities: No edema, Capillary Refill Less than 3 Seconds Skin: No rashes, No breakdown Musculoskeletal: No Tenderness to Palpation of Joints or Extremities Neurological: No focal neurological deficits, Motor Exam 5/5 strength throughout, Sensory exam intact to light touch and pain Psych/Mental Status: Normal Affect, Appropriate Weight / BMI Weight Weight: 166 lb 0.129 oz Body Mass Index (BMI) 30.8 ABG / Lab / Microbiology Data 01/23/24 07:22 01/23/24 07:22 Laboratory: Laboratory Results - last 24 hr 01/23/24 07:22: WBC 10.9, RBC 4.58, Hgb 14.0, Hct 42.3, MCV 92.4, MCH 30.6, MCHC 33.1, RDW Std Deviation 41.7, RDW Coeff of Patrizia 12.3, Plt Count 288, MPV 9.8, Immature Gran % (Auto) 0.400, Neut % (Auto) 53.1, Lymph % (Auto) 34.1, Webster % (Auto) 9.0, Eos % (Auto) 2.7, Baso % (Auto) 0.7, Absolute Neuts (auto) 5.8, Absolute Lymphs (auto) 3.72, Nucleated RBC % 0, Sodium 142, Potassium 3.5, C hloride 108 H, Carbon Dioxide 27.0, Anion Gap 7, BUN 30 H, Creatinine 1.48 H, Estim Creat Clear Calc 26.27, Est GFR (MDRD) Af Amer 43 L, Est GFR (MDRD) Non-Af 36 L, BUN/Creatinine Ratio 20.3 H, Glucose 115 H, Calcium 10.5 H D/C Instructions Discharge Diet: Low fat / Low cholesterol Call your doctor if you observe: Fever of 101 or Higher, Shortness of breath, Dizziness, Fainting spells, Swelling in the ankles, Chest pain and Increased palpitations (irregular heartbeat) DC O2, CPAP, BIPAP Needs Additional Home O2 Discharge instructions: No DC home with Oxygen: No Meaningful Use Info Meaningful Use Meaningful Use Diagnoses (Choose all that apply): None applicable Ischemic Stroke Statin Dosing Therapy Reference: STATIN DOSE THERAPY REFERENCE: * Patients > 75 years receive moderate or high dose statin therapy. * Patients 75 years or YOUNGER should receive HIGH intensity statin dose unless contraindicated. You will be required to document reason for non-treatment if statin daily dose does not meet guidelines. HIGH DOSE STATIN THERAPY DAILY Atorvastatin > than or = to 40 mg Rosuvastatin > than or = to 20 mg Amlodipine + Atorvastatin > than or = to 2.5/40 mg Ezetimibe + Simvastatin 10/80 mg Simvastatin 80mg Discharge Plan Admission Admit Date/Time: 01/18/24 22:57 Attending Provider: Cal Billings Primary Care Provider: Brandon March Chi Consulting Providers: Kal Wright; Linda Lee; Bárbara Sandoval; Moisés Bartlett; Bennie Landrum; Se Ellis; Luan Guzman; Ronny Wilson; Kevin Nesbitt; Arthur Hernandez; Son Garrido NP; Jazmyn Cabrera PA; Macario Allen Instructions Additional Instructions / Restrictions: Take MiraLAX as needed for constipation. Follow-up with your PCP in 3 to 5 days to monitor your lab work and your blood pressures to make any medication adjustments as necessary Discharge Orders/Prescriptions Prescriptions: New meclizine 25 mg Tablet 25 mg PO TID PRN PRN (Reason: Vertigo) 5 Days Qty: 15 0RF metoprolol tartrate 25 mg Tablet 12.5 mg PO BID 30 Days Qty: 30 0RF Continued dexlansoprazole [Dexilant] 60 mg capsule,biphase delayed releas 60 mg PO BID Qty: 120 4RF clonidine 0.3 mg/24 hr patch weekly 1 patch transdermal QWEEK Linzess 72 mcg capsule 72 mcg PO DAILY PRN (Reason: constiopation) inclisiran 284 mg/1.5 mL syringe 284 mg subcut [id number] multivitamin Tablet 1 tab PO DAILY acetaminophen 325 MG tablet 650 mg PO Q6H PRN PRN (Reason: Mild Pain (0-3/10)/Headache) 0RF paroxetine HCl 20 MG tablet 20 mg PO DAILY Qty: 30 0RF losartan 100 MG tablet 100 mg PO DAILY Qty: 30 0RF loratadine 10 MG tablet 10 mg PO DAILY PRN (Reason: ALLERGIES) 0RF hydrochlorothiazide 25 mg Tablet 25 mg PO DAILY albuterol sulfate 90 mcg/actuation Hfa Aerosol Inhaler 1 puff INHALATION Q6H PRN (Reason: SOB) cholecalciferol (vitamin D3) [Vitamin D3] 25 mcg (1,000 unit) Capsule 25 mcg PO DAILY clonidine HCl 0.1 mg tablet 0.1 mg PO DAILY PRN (Reason: high blood pressure) Referrals / Follow Up: Luan Guzman MD [Med Staff - Active Staff] - 02/25/24 11:00 am Brandon March Chi, MD [Primary Care Provider] - Within 1 Week Disposition Disposition (needs filled in before D/C Order can be placed): Home, Self Care Charges/Coding Visit Charges Inpatient E&M: 75535 Disch Hosp >30min
[2024-01-23 15:00] VITALS: BP 144/80; PULSE 71; RESP 18; TEMP 36.9; O2SAT 94
[2024-01-23] MEDS: Ondansetron 4 MG/2 ML Vial IV (15:18)
[2024-01-23] MEDS: 0.9% Saline Lock 10 ML Syringe IV (15:18)
== END 2024-01-23 18:29 | disposition home or self-care (01) | DRG 305 ==
LOC: ED 19:47 → ICU 01-19 01:00 → PCU 01-21 07:18
PROVIDERS: Internal Medicine; Admitting Provider Internal Medicine; Emergency Provider Surgery; PCP Family Medicine Geriatric Medicine; Visit Provider Family Medicine
DX: I16.1 Hypertensive emergency (principal); K29.90 Gastroduodenitis, unspecified, without bleeding; N18.31 Chronic kidney disease, stage 3a; I12.9 Hypertensive chronic kidney disease with stage 1 through stage 4 chronic kidney disease, or unspecified chronic kidney disease; F32.A Depression, unspecified; K27.9 Peptic ulcer, site unspecified, unspecified as acute or chronic, without hemorrhage or perforation; M79.7 Fibromyalgia; E78.00 Pure hypercholesterolemia, unspecified; K21.00 Gastro-esophageal reflux disease with esophagitis, without bleeding; E87.6 Hypokalemia; E86.0 Dehydration; K58.1 Irritable bowel syndrome with constipation; M54.9 Dorsalgia, unspecified; M19.90 Unspecified osteoarthritis, unspecified site; D72.829 Elevated white blood cell count, unspecified; R11.2 Nausea with vomiting, unspecified; K57.30 Diverticulosis of large intestine without perforation or abscess without bleeding; K44.9 Diaphragmatic hernia without obstruction or gangrene; H81.12 Benign paroxysmal vertigo, left ear; F41.9 Anxiety disorder, unspecified; R01.1 Cardiac murmur, unspecified; E66.3 Overweight; G89.29 Other chronic pain; Z90.49 Acquired absence of other specified parts of digestive tract; Z88.8 Allergy status to other drugs, medicaments and biological substances; Z87.19 Personal history of other diseases of the digestive system; Z79.899 Other long term (current) drug therapy; Z96.659 Presence of unspecified artificial knee joint; Z90.710 Acquired absence of both cervix and uterus; Z86.69 Personal history of other diseases of the nervous system and sense organs; Z68.29 Body mass index [BMI] 29.0-29.9, adult; Z98.890 Other specified postprocedural states; Z86.0101 Personal history of adenomatous and serrated colon polyps
CPT/HCPCS: 36415; 70450; 70551; 71046; 74177; 80048; 80061; 81001; 82607; 82746; 83036; 83880; 84443; 84484; 85025; 85610; 85730; 93005; 93306; 97110; 97162; 97165; 97530; 97535; 99285; Q9957; Q9967; A4216; J1940; J2405

== ENCOUNTER → 2024-02-27 | Outpatient (CLI) | payer SELFPAY ==
[2024-02-27 12:03] LABS: SERUM TEARS COLLECTION SPECIMEN PROCESSED
== END | disposition home or self-care (01) ==
PROVIDERS: PCP Family Medicine Geriatric Medicine; Referring Provider Ophthalmology; Visit Provider Ophthalmology
DX: H04.123 Dry eye syndrome of bilateral lacrimal glands (principal)

== ENCOUNTER → 2024-03-12 | Outpatient (CLI) | payer MEDICARE, OTHER, SELFPAY ==
--- NOTE | 2024-03-12 13:19 | CT_ITS ---
PROCEDURE: CHEST WITH CONTRAST REASON FOR EXAM: Solitary pulmonary nodule TECHNIQUE: Axial CT images of the chest performed with IV contrast enhancement. Sagittal and coronal reconstruc julia images were performed. CONTRAST: 98 mL of Isovue-300 COMPARISON: 01/18/2024 FINDINGS: Heterogeneous thyroid gland, with a few thyroid nodules, largest on the right measures 1.0 cm. No thoracic aortic aneurysm or dissection is seen. Minimal vascular calcifications within the aortic arch. Pulmonary artery vasculature, as visualized, appears within normal limits. Mediastinum: No mediastinal lymphadenopathy. Heart: Mild cardiomegaly. No pericardial effusion. Lungs and Airways: The lungs are well aerated. Minimal peripheral fibrotic changes, mostly within th e lower lobes. Stable appearing 5 mm pleural-based pulmonary nodule within the right lower lobe, medially. Remaining lung markings otherwise appears clear. Pleura: No pleural effusion. No pneumothorax. Bones: The osseous thorax appears intact. Spondylotic changes most prominent of the lower thoracic s pine. Visualized portions of the liver and spleen appear intact. Prior cholecystectomy. No adrenal masses are seen. CT/Chest WITH Contrast IMPRESSION: 1. Stable appearing pleural-based pulmonary nodule within the right lower lobe measuring approximately 5 mm. 2. No additional pulmonary nodules are identified. 3. Heterogeneous thyroid gland, with a few thyroid nodules, largest on the righ t measures up to 1.0 cm. If clinically warranted, consider thyroid ultrasound. 4. Mild cardiomegaly. One or more dose reduction techniques were used (e.g., Automated exposure contr ol, adjustment of the mA and/or kV according to patient size, use of iterative reconstruction technique). Reading Location: [facility]
[2024-03-12 13:58] LABS: CREATININE FINGERSTICK < 1.0 mg/dL (0.55-1.02)
== END | disposition home or self-care (01) ==
PROVIDERS: PCP Family Medicine Geriatric Medicine; Referring Provider Family Medicine Geriatric Medicine; Visit Provider Family Medicine Geriatric Medicine
DX: R91.1 Solitary pulmonary nodule (principal)
CPT/HCPCS: 71260; Q9967

== ENCOUNTER 2024-03-14 10:30 | Outpatient (RCR) | payer MEDICARE, OTHER, SELFPAY ==
--- NOTE | 2024-02-01 10:32 | HP.PTEVAL ---
Patient's Visit Information Visit Information Visit Information: JANIA SPRAGUE is a 83 year old F referred to Physical Therapy by Dr. Brandon March MD with a diagnosis of vertigo. Date of Evaluation: 02/01/24 Physical Therapist: Jared Arriaga, JUANJOT, OCS, CSCS Visit Plan Frequency: 2x /Week Duration: 4-6 Weeks Plan: 2x/week for 4-6 as needed for... IE HEP VOR H 60 sec, head turns 10x, head nods 10x all 6x/day with full recovery, also use wh walker 100%. treat with progression of VOR home exercises and head movements as well as dynamic balance training with head movements and VOR to tolerance. Subjective Subjective: 2 weeks ago at 6pm started spinning out of nowhere. Was turning to the left at the time. Spun. Stumbled back to chair and vomitted. Dizzyness lasted all night and blood pressure was up. Navya took her to hospital and had CATSCAN head and abdomen. Normal. EKG was OK. Spinning all evening if moved head. Sent to PCU and had MRI of head and it was OK. Next morning still dizzy if turned head fast. In hospital 5 days and treated with blood pressure meds. Gradually better over 5 days. Out of hospital last Sunday and doing not terrible at home if she moves slow. is still unsteady. if turns head left fast will spin a little bit for a few seconds. unsteady. Live with hubby in two stories with rail and needs assist for anxiousness. basic ADLs I, supervises on steps, uses wh walker at home(cane to PT today) Hobbies: knitting and sewing but not doing them 50% better since leaving hospital. Objective Objective: Walks into PT unsteady with cane R UE needing my arm, has wh walker at home that she knows she should be using. Trasfners chair I without UE. FGa without AD today. UE adn cervical AROm WNL and symmetrical but hesitant to move head especially L. - B hallpike judd and - roll test. Oculomotor: - skew eye deviation - ocular tilt + R head thrust no nystagmus with gaze L but slightly noticeable R. Pursuit and saccades are slow and asymptomatic.VOR H 60 seconds dizzy for 15 seconds VOR H 60 seconds is symtpomatic and eyes off with head R. Symptoms last 20 seconds. Balance/Special Test Scores Functional Gait Assessment Score: 18 % Disability: 40.0000 Dizziness Score: 54 Goals Goal 1:: FGA adn walking feel back to normal. Goal Time Frame: 4-6 Weeks Goal 2:: Pt feel dizzyness 99% abolished. Goal Time Frame: 4-6 Weeks Goal 3:: DHI score 10 or better. Goal Time Frame: 4-6 Weeks Rehabilitation Potential Physical Therapy Diagnosis: unsteadyness and dizzyness limiting function. Rehabilitation Potential: Good Anticipated Interventions Patient/Client Instruction: Educate patient on: Condition and Plan of Care For the Purpose of:: To increase tolerance to activity/condition/position and To improve gait and locomotor functions Therapeutic Exercise to Include: Balance training Comment: vestibulr For the Purpose of:: To increase tolerance to activity/condition/position and To improve gait and locomotor functions Text: Thank you for the opportunity to evaluate your patient. For Medicare and Medicare HMO plans, please review the plan of care and approve it. It will need to be FAXED BACK to us at [phone] for Medicare purposes. For Medicare only, by signing this I certify the plan of care. Please let me know if there are questions or concerns regarding this plan of care. Physician Signature: Date:
--- NOTE | 2024-03-14 10:57 | HP.PTDCSUM ---
Discharge Summary D/C summary: It has been my pleasure to treat JANIA SPRAGUE referred by Dr. Brandon March MD, with the diagnosis of vertigo for a total of 8 visit(s). Discharge Date: 03/14/24 Please see the following information for a summary of their discharge status. Subjective Subjective: Been doing pretty good last coupl eweeeks. Some good daysand some bad days. bad days are unsteady and sometimes spins when stands up but not lying down or sitting. Blood pressure being worked on by Dr. guzman. Feels like unsteadyness is about 1 hour after taking BP meds. Dr. Guzman knows. No falls , using walker stick , Knows she needs to stand for a few minutes before ambulating. Has walker to use at home. Had catscan adn having US for nodule on thyroid. Life is pretty normal activity lopez at home. Started driving and it was good. Overall Improvement % Improvement: 70 Objective Objective/Function: - HD B Walking well today but has to take a second when she stands up and if she has been sitting for a while and stands. Ready to be done with PT adn will continue via HEP. Goals Goal 1:: FGA adn walking feel back to normal. Goal Progress: Goal Met Goal 2:: Pt feel dizzyness 99% abolished. Goal Progress: 70% Goal 3:: DHI score 10 or better. Goal Progress: Progressing Plan Plan: d/c to HEP D/C Information Discharge Comments: Mostly dizzy after takes BP meds otherwis doing well. d/c sentence: If there are questions or concerns regarding this patient's physical therapy, please feel free to call me at [phone]. Thank you for the referral of this patient. Sincerely, Jared Arriaga, DPT, OCS, CSCS Balance/Gait/Functional tests Balance/Special Test Scores Functional Gait Assessment Score: 25 % Disability: 16.6700 Dizziness Score: 10 TUG Test Time Seconds: 13 30 Second Chair Rise Test Seconds: 12 Improvement % Improvement: 70
== END 2024-03-14 19:00 | disposition home or self-care (01) ==
LOC: PT 10:30
PROVIDERS: PCP Family Medicine Geriatric Medicine; Referring Provider Family Medicine; Visit Provider Family Medicine Geriatric Medicine
DX: R42 Dizziness and giddiness (principal)
CPT/HCPCS: 97110; 97161; 97530

== ENCOUNTER → 2024-03-27 | Outpatient (CLI) | payer MEDICARE, SELFPAY ==
--- NOTE | 2024-03-27 13:59 | US_ITS ---
PROCEDURE: THYROID REASON FOR EXAM: Thyroid nodules. TECHNIQUE: Thyroid ultrasound COMPARISON: None. FINDINGS: Right thyroid lobe measures 4.7 cm x 2.5 cm x 1.9 cm. Left thyroid lobe measures 4.2 cm x 1.6 cm x 1.8 cm. Isthmus thickness is12 mm. Thyroid Size: Enlarged isthmus. Background Echotexture: Normal Thyroid Nodules: There is a 1.5 cm x 1.6 cm x 1 0.1 cm hypoechoic solid nodule in the midportion of the right lobe. Increased vascularity is seen. Biopsy recommended. There is also evidence of a 5 mm x 4 mm x 3 mm hypoechoic solid nodule in the upper pole. Adjacent to this, there is a 1.5 cm x 1.6 cm x 1.1 cm nodule. There is also evidence of a 1.5 cm x 1.5 cm x 1.4 cm nodule in the midportion of the left lobe of the thyroid. A similar-appearing nodule measuring 1.1 cm x 1.2 cm x 1 cm in the upper pole is seen. US/Thyroid IMPRESSION: Bilateral thyroid nodules as described. Correlation with nuclear medicine thyr oid scan and uptake recommended prior to biopsy. Reading Location: [id number]
== END | disposition home or self-care (01) ==
LOC: US 13:59
PROVIDERS: PCP Family Medicine Geriatric Medicine; Referring Provider Family Medicine Geriatric Medicine; Visit Provider Family Medicine Geriatric Medicine
DX: E04.1 Nontoxic single thyroid nodule (principal)
CPT/HCPCS: 76536

== ENCOUNTER → 2024-04-23 | Outpatient (CLI) | payer MEDICARE, OTHER, SELFPAY ==
--- NOTE | 2024-04-23 08:16 | NM_ITS ---
PROCEDURE: THYROID UPTAKE SINGLE OR MULT REASON FOR EXAM: NONTOXIC SINGLE THYROID NODULE COMPARISON: None. TECHNIQUE: Anterior and posterior imaging of the thyroid gland. RADIOPHARMACEUTICAL: 317 uCi of iodine 123 orally on . FINDINGS: Thyroid bed: Activity seen in the right lobe. Decreased activity in the left lobe of the thyroid. Uptake at 4 hours is 4.3%. Uptake at 24 hours is 7.2% this is in keeping with hypothyroidism. NM/Thyroid Uptake Single or Mult IMPRESSION: Decreased activity in the left lobe. Reading Location: [id number]
== END | disposition home or self-care (01) ==
LOC: NM 08:15
PROVIDERS: PCP Family Medicine Geriatric Medicine; Referring Provider Family Medicine Geriatric Medicine; Visit Provider Family Medicine Geriatric Medicine
DX: E04.1 Nontoxic single thyroid nodule (principal)
CPT/HCPCS: 78012; A9516

== ENCOUNTER → 2024-06-03 | Outpatient (CLI) | payer MEDICARE, OTHER, SELFPAY ==
--- NOTE | 2024-06-03 08:00 | FLU_PTH ---
PATIENT: JANIA SPRAGUE [facility] U#:[id number] AGE/SX: 84/F ROOM: RE06/03/[address]: Dr. Luan Paul MD : [id number] BED: DIS: 06/03/2024 SPEC #: [id number] RECD: 06/03/24 11:04 STATUS: ISMAEL MARY BETH #: [id number] JYOTI: 06/03/24 08:[address]: Luan Paul DEPT: CYTOLOGY RECD BY: Akhil Bassett ENTERED: 06/03/24 11:04 SP TYPE: Fluid OTHR DR: Dr. Brandon March MD Tissues: A - Thyroid gland, NOS B - Thyroid gland, NOS Procedures: Special Stain Group II Surgery Specimen Level IV Cytospin Fluid HEADER OPERATION: Fine needle aspiration of right thyroid nodule PRE-OP DIAGNOSIS: Right thyroid nodule TISSUE SUBMITTED: A- Right mid thyroid nodule, B- Left thyroid nodule DIAGNOSIS CYTOLOGY A. Right mid thyroid nodule, FNA: * No malignant cells are identified * Benign follicular cells (benign follicular nodule) B. Left thyroid nodule, FNA * No malignant cells are identified * Benign follicular cells (benign follicular nodule) Preliminary studies/adequacy: A1-A2 mostly blood B1-B2 Some follicular cells By Dr. Woody 06/03/24 CYTOLOGY STUDY Slides are reviewed. CYTOLOGY GROSS A. Received is 30 ml of cytolyt with particles and 3 PAPS and 2 DQ fluid labeled with the patient's name and and designated per the requisition as Right mid thyroid nodule. Submitted for cytology and cell block preparation. B. Received is 30 ml of fluid cytolyt with particles and 3 PAPS and 2 DQ labeled with the patient's name and and designated per the requisition as Left thyroid nodule. Submitted for cytology and cell block preparation. Mr 06/03/2024 CPT: [id number]
== END | disposition home or self-care (01) ==
PROVIDERS: PCP Family Medicine Geriatric Medicine; Referring Provider Surgery; Visit Provider Surgery
DX: E04.1 Nontoxic single thyroid nodule (principal)
CPT/HCPCS: 88108; 88305; 88313

== ENCOUNTER → 2024-06-09 | Outpatient (CLI) | payer MEDICARE, OTHER, SELFPAY ==
[2024-06-09 16:20] LABS: Absolute Lymphocyte Count 4.34 X10^3/uL (0.83-4.51); Absolute Neutrophil Count 6.1 X10^3/uL (2.0-7.7); Basophil# 0.08 X10^3/uL; Basophil% 0.7 % (0-1); Eosinophil# 0.33 X10^3/uL; Eosinophils% 2.8 % (0-5); Hematocrit 40.7 % (37-47); Hemoglobin 13.6 g/dL (12.0-15.0); Lymphocyte # 4.34 X10^3/ul (0.83-4.51); Lymphocyte % 36.4 % (19-41); Mean Corp Hgb Conc 33.4 g/dL (32-36); Mean Corpuscular Hgb 31.1 pg (27.0-32.0); Mean Corpuscular Volume 93.1 fL (81-99); Mean Platelet Vol. 10.2 fl (6.2-12.0); Monocyte# 0.99 X10^3/uL; Monocyte% 8.3 % (0-10); NRBC Flagged by Analyzer 0 % (0-5); Neutrophil # 6.12 X10^3/uL (2.7-7.7); Neutrophil % 51.4 % (47-70); POSITIVE MORPHOLOGY YES; Platelet Count 316 K/mm3 (150-450); RBC Distribution Width CV 11.8 % (11.6-14.6); RBC Distribution Width SD 40.7 fl (35.1-43.9); Red Blood Count 4.37 M/mm3 (4.2-5.4); White Blood Count 11.9 K/mm3 (4.4-11.0)
[2024-06-09 16:26] LABS: Differential Indicated SCAN CRITERIA MET
[2024-06-09 17:03] LABS: ALB/GLOB Ratio 1.7 RATIO (0.9-2.4); AST(SGOT) 30 U/L (<=31); Alanine Aminotransfer ALT/SGPT 20 U/L (<=34); Albumin, Serum 4.1 g/dL (3.4-4.8); Alkaline Phosphatase 79 U/L (35-104); Anion Gap 9 (5-15); BUN 19 mg/dL (4-19); BUN/Creat Ratio 17.1 RATIO (10-20); Calcium,Total 11.4 mg/dL (7.6-11.0); Carbon Dioxide 26.6 mmol/L (21.0-32.0); Chloride 103 mmol/L (98-108); Creatinine, Serum 1.12 mg/dL (0.70-1.20); EST Glomerular Filtration Rate 48 (>60); Globulin 2.4 g/dL (2.2-4.2); Glucose 88 mg/dL (70-99); Potassium 4.3 mmol/L (3.3-5.1); Protein, Total 6.5 g/dL (5.9-8.4); Sodium Level 138 mmol/L (133-145); Total Bilirubin 0.58 mg/dL (0.00-1.30); Vitamin D,25 Hydroxy 38.4 ng/mL (30-100)
[2024-06-09 17:45] LABS: Platelet Estimate ADEQUATE (ADEQ)
== END | disposition home or self-care (01) ==
LOC: LAB 15:16
PROVIDERS: PCP Family Medicine Geriatric Medicine; Referring Provider Family Medicine Geriatric Medicine; Visit Provider Family Medicine Geriatric Medicine
DX: I10 Essential (primary) hypertension (principal); E55.9 Vitamin D deficiency, unspecified
CPT/HCPCS: 36415; 80053; 82306; 84443; 85025

== ENCOUNTER → 2024-08-27 | Outpatient (CLI) | payer MEDICARE, OTHER, SELFPAY ==
--- NOTE | 2024-08-27 14:50 | RAD_ITS ---
EXAM: XR Lumbosacral Spine, 4 or 5 Views CLINICAL INDICATION: LOW BACK PAIN TECHNIQUE: Frontal, lateral and bilateral oblique views of the lumbar spine. COMPARISON: No relevant prior studies available. FINDINGS: VERTEBRAE: Moderate endplate degenerative changes and disc degeneration of visualized thoracic spine to L3. Mild anterior wedging deformity of L2, and T12 in addition to T11 vertebral bodies. Anterior spondylolisthesis of L5 over S1 by 11 mm without pars defect. This could be further evaluated with MRI. SACRUM/COCCYX: Unremarkable as visualized. No acute fracture. DISC SPACES: See above. SOFT TISSUES: Unremarkable. RAD/L/S Spine Min 4 Views IMPRESSION: 1. Anterior spondylolisthesis of L5 over S1 by 11 mm without pars defect. Thi s could be further evaluated with MRI. 2. Degenerative changes as above. Reading Location: [facility]
--- NOTE | 2024-08-27 14:50 | RAD_ITS ---
EXAM: XR Lumbosacral Spine, 4 or 5 Views CLINICAL INDICATION: LOW BACK PAIN TECHNIQUE: Frontal, lateral and bilateral oblique views of the lumbar spine. COMPARISON: No relevant prior studies available. FINDINGS: VERTEBRAE: Moderate endplate degenerative changes and disc degeneration of visualized thoracic spine to L3. Mild anterior wedging deformity of L2, and T12 in addition to T11 vertebral bodies. Anterior spondylolisthesis of L5 over S1 by 11 mm without pars defect. This could be further evaluated with MRI. SACRUM/COCCYX: Unremarkable as visualized. No acute fracture. DISC SPACES: See above. SOFT TISSUES: Unremarkable. RAD/L/S Spine Min 4 Views IMPRESSION: 1. Anterior spondylolisthesis of L5 over S1 by 11 mm without pars defect. Thi s could be further evaluated with MRI. 2. Degenerative changes as above. Reading Location[facility]
--- NOTE | 2024-08-27 14:50 | RAD_ITS ---
EXAM: XR Lumbosacral Spine, 2 or 3 Views CLINICAL INDICATION: LOW BACK PAIN TECHNIQUE: Frontal and lateral views of the lumbar spine and sacrum. COMPARISON: No relevant prior studies available. FINDINGS: VERTEBRAE: Anterior spondylolisthesis of L5 over S1 by 11 mm. No acute fracture. SACRUM/COCCYX: Moderate degenerative changes of the sacroiliac and hip joints, bilaterally. Mild degenerative changes of the pubic symphysis. No acute fracture. DISC SPACES: No acute findings. No significant narrowing. SOFT TISSUES: Unremarkable. RAD/Sacrum-Coccyx min 2 Views IMPRESSION: Degenerative changes as above. Reading Location: [facility]
--- NOTE | 2024-08-27 14:50 | RAD_ITS ---
EXAM: XR Lumbosacral Spine, 2 or 3 Views CLINICAL INDICATION: LOW BACK PAIN TECHNIQUE: Frontal and lateral views of the lumbar spine and sacrum. COMPARISON: No relevant prior studies available. FINDINGS: VERTEBRAE: Anterior spondylolisthesis of L5 over S1 by 11 mm. No acute fracture. SACRUM/COCCYX: Moderate degenerative changes of the sacroiliac and hip joints, bilaterally. Mild degenerative changes of the pubic symphysis. No acute fracture. DISC SPACES: No acute findings. No significant narrowing. SOFT TISSUES: Unremarkable. RAD/Sacrum-Coccyx min 2 Views IMPRESSION: Degenerative changes as above. Reading Location: [facility]
== END | disposition home or self-care (01) ==
LOC: RAD 14:48
PROVIDERS: PCP Family Medicine Geriatric Medicine; Referring Provider Family Medicine Geriatric Medicine; Visit Provider Family Medicine Geriatric Medicine
DX: M54.50 Low back pain, unspecified (principal)
CPT/HCPCS: 72110; 72220

== ENCOUNTER 2024-08-28 18:39 | Observation (INO) | payer MEDICARE, OTHER, SELFPAY ==
[2024-08-28] VITALS (7 sets, daily range): BP systolic 142–195; BP diastolic 74–93; PULSE 59–87; RESP 18; TEMP 36.5–37.1; O2SAT 93–99; BMI 32.3; BMI 30.4
--- NOTE | 2024-08-28 19:26 | EDS_ITS ---
HPI <NAIMA Sequeira - Last Filed: 08/28/24 21:31> HPI - Fall History of Present Illness Chief Complaint: Fall Narrative Narrative: 84-year-old female presents after fall at home. On August 23 she tripped on the sidewalk and fell onto her butt and had abrasions on both elbows. There was no head injury. She was evaluated by EMS and was able to get up and ambulate so did not seek evaluation. Since then she has had gradual increasing soreness in her tailbone. She followed up with Dr. March and had x-rays yesterday showing misalignment but no fracture. He prescribed naproxen, prednisone, and a muscle relaxer. She took a muscle relaxer at 10 AM and then states around 2 PM she felt off and like her legs were rubbery and she fell onto her butt. She states she remembered when she took muscle relaxers in 2018 they made her feel this way. With today's fall she had 3 or 3. Her tried to assist her up for 2 hours but was unable to so they called the paramedics. After the lift assist she was able to ambulate and went up and down a set of stairs at home. She uses a walking stick or cane at baseline. She presents due to worsening tailbone pain after the second fall. She has no pain radiating down the legs. No we akness or numbness or tingling, no saddle anesthesia or bladder or bowel incontinence. No history of back surgery. [facility] <NAIMA Sequeira - Last Filed: 08/28/24 21:31> [facility] Medical History (Updated 06/03/24 @ 15:[address] 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 Tubular adenoma of colon Esophagitis Gastritis Wears contact lenses Wears glasses Fibromyalgia Depression History of steroid therapy Ambulates with cane Arthritis History of renal disease Anemia High cholesterol Back pain Difficulty swallowing History of hiatal hernia History of IBS History of diverticulitis Hx of mitral valve prolapse Gastric reflux Non-smoker Shortness of breath on exertion Leg cramps History of edema Hypertension Cardiology follow-up encounter History of echocardiogram History of stress test Stroke/cerebrovascular accident Hiatal hernia Family history of colon cancer Weight loss Cataract Home Medications ?Medication ?Instructions ?Recorded ?Last Taken ?Type acetaminophen 325 mg tablet 650 mg (2 x 325 mg) PO Q6H PRN PRN 11/30/17 Unknown Rx Mild Pain (0-3/10)/Headache loratadine 10 mg tablet 10 mg PO DAILY PRN ALLERGIES 11/30/17 Unknown Rx losartan 100 mg tablet 100 mg PO DAILY heart #30 ta bs 11/30/17 07/26/21 08:15 Rx paroxetine HCl 20 mg tablet 20 mg PO DAILY mood #30 ta bs 11/30/17 Unknown Rx albuterol sulfate 90 mcg/actuation 1 puff inhalation Q 6H PRN SOB 07/25/21 Unknown History aerosol inhaler cholecalciferol (vitamin D3) 25 25 mcg PO DAILY supple ment 07/25/21 Unknown History mcg (1,000 unit) capsule (Vitamin D3) hydrochlorothiazide 25 mg tablet 25 mg PO DAILY blood pressure 07/25/21 Unknown History multivitamin 1 tab PO DAILY SUPPLEMENT Unknown History dexlansoprazole 60 mg 60 mg PO BID reflux #120 cap s 12/30/21 Unknown Rx capsule,biphase delayed release (Dexilant) clonidine 0.3 mg/24 hr weekly 1 patch transdermal QWEE K 07/05/23 Unknown History transdermal patch clonidine HCl 0.1 mg tablet 0.1 mg PO DAILY PRN high b lood 07/05/23 Unknown History pressure inclisiran 284 mg/1.5 mL 284 mg subcut [id number] yonathan sterol 07/05/23 Unknown History subcutaneous syringe linaclotide 72 mcg capsule 72 mcg PO DAILY PRN constio pation 07/05/23 Unknown History (Linzess) carvedilol 6.25 mg tablet (Coreg) 6.25 mg PO BID #60 t abs 02/25/24 Unknown Rx baclofen 10 mg tablet 10 mg PO QHS 08/28/24 Unknow n History latanoprost 0.005 % eye drops 1 drp ophthalmic (eye) Q HS 08/28/24 Unknown History meclizine 25 mg tablet 25 mg PO TID PRN PRN dizzine ss 08/28/24 Unknown History naproxen 250 mg tablet 250 mg PO BID 08/28/24 Unkno wn History prednisone 10 mg tablet mg PO 08/28/24 Unknown Histo ry Allergy/AdvReac Type Severity Reaction Status Date / Time adhesive tape Allergy Other Verified 08/28/24 18:48 valsartan Allergy Rash Verified 08/28/24 18:48 amlodipine AdvReac Other Verified 08/28/24 18:48 enalaprilat (From Vasotec) AdvReac Other Verified 08/28/24 18:48 minoxidil AdvReac Other Verified 08/28/24 18:48 risedronate sodium (From AdvReac Other Verified 08/28/24 18:48 Actonel) Family History Mother Cancer pancreatic Father Colon cancer Grandmother Breast cancer Surgical History History of carpal tunnel surgery of right wrist History of partial knee replacement History of cardiac catheterization History of total knee arthroplasty History of hysterectomy History of cholecystectomy S/P sclerotherapy of varicose veins H/O dilation and curettage History of tonsillectomy H/O adenoidectomy Social History Smoking Status: Never smoker alcohol intake: current alcohol intake frequency: holidays/special occasions only substance use type: does not use caffeine: Yes Type: coffee Number of servings: 1 EXAM <NAIMA Sequeira - Last Filed: 08/28/24 21:31> Physical Exam Narrative Exam Narrative: CONST: Patient sitting in no acute distress. EYES: Normal inspection. NECK: Normal inspection. RESP: No respiratory distress, CTAB. CVS: Regular rate and rhythm, no murmur, no gallop. ABD: Soft and nontender, no guarding or rebound, nondistended. Back: Normal inspection, tender to palpation over L1-L3 area without step-offs or crepitus. No external signs of trauma. SKIN: Color normal, no rash, warm, dry, intact. EXTREMITIES: Normal appearance, 5/5 strength in bilateral hip flexion and dorsiflexion and plantarflexion. Normal sensation. 2+ DP pulses. NEURO: Alert and answering questions appropriately. PSYCH: Normal affect. Const Vital Signs: 08/28/24 18:40 08/28/24 18:48 08/28/24 19:39 Temperature 97.7 F L Temperature Source Oral Pulse Rate 64 69 Respiratory Rate 18 18 Respiratory Effort Normal Respiratory Depth Normal Respiratory Pattern Normal Blood Pressure 195/93 H 147/74 H Blood Pressure Mean 127 98 Pulse Ox 95 97 Oxygen Delivery Method Room Air Room Air Room Air 08/28/24 21:00 08/28/24 21:17 Temperature 98.7 F Temperature Source Pulse Rate 65 63 Respiratory Rate 18 18 Respiratory Effort Respiratory Depth Respiratory Pattern Blood Pressure 149/79 H Blood Pressure Mean 102 Pulse Ox 98 99 Oxygen Delivery Method Room Air <Dr. Jared Chandra DO - Last Filed: 08/28/24 21:33> Physical Exam Const Vital Signs: 08/28/24 18:40 08/28/24 18:48 08/28/24 19:39 Temperature 97.7 F L Temperature Source Oral Pulse Rate 64 69 Respiratory Rate 18 18 Respiratory Effort Normal Respiratory Depth Normal Respiratory Pattern Normal Blood Pressure 195/93 H 147/74 H Blood Pressure Mean 127 98 Pulse Ox 95 97 Oxygen Delivery Method Room Air Room Air Room Air 08/28/24 21:00 08/28/24 21:17 Temperature 98.7 F Temperature Source Pulse Rate 65 63 Respiratory Rate 18 18 Respiratory Effort Respiratory Depth Respiratory Pattern Blood Pressure 149/79 H Blood Pressure Mean 102 Pulse Ox 98 99 Oxygen Delivery Method Room Air MDM <NAIMA Sequeira - Last Filed: 08/28/24 21:31> [facility] Narrative Medical decision making narrative: 84-year-old female presents with low back and sacral pain after 2 falls in the last week. First fall was mechanical over a curb and the second fall was after taking the muscle relaxer caused her to feel weak. There was no head injury, b oth falls were onto her buttocks. She initially was ambulatory after today's fall but is now having significant pain and trouble getting around. She has no external signs of trauma but is tender over the lumbar spine without step-offs. Lower extremity MSPs intact. No red flag symptoms concerning for cauda equina syndrome. Prior x-rays were reviewed which showed no fracture. I ordered a CT scan of the lumbar spine and there is a L2 compression fracture with 4 mm of fracture fragment retropulsion. She is neurologically intact so does not require an emergent MRI tonight. After [place] she states she had no pain relief so she was given IV morphine and Zofran. She is already taking naproxen and prednisone at home from primary care pain, and cannot tolerate muscle relaxers, and since she had no pain relief on [place] I do not feel she can be discharged home as she cannot ambulate. I discussed the case with the hospitalist for admission. Radiography Diagnostic Testing: Clinical Impression(s) from Imaging Studies Lumbar Spine CT 08/28/24 19:41 IMPRESSION: 1. Compression fracture of the L2 vertebral body, involving the superior endplate and resulting in 30% height loss and 4 mm of fracture fragment retropulsion. This finding is new since CT on 03/12/2024. MRI could be performed to determine acuity if clinically warranted. 2. Unchanged compression deformity at T12. 3. Multilevel degenerative changes of the lumbar spine, worst at L5-S1. Reading Location: [facility] <Dr. Jared Chandra, DO - Last Filed: 08/28/24 21:33> MDM Radiography Diagnostic Testing: Clinical Impression(s) from Imaging Studies Lumbar Spine CT 08/28/24 19:41 IMPRESSION: 1. Compression fracture of the L2 vertebral body, involving the superior endplate and resulting in 30% height loss and 4 mm of fracture fragment retropulsion. This finding is new since CT on 03/12/2024. MRI could be performed to determine acuity if clinically warranted. 2. Unchanged compression deformity at T12. 3. Multilevel degenerative changes of the lumbar spine, worst at L5-S1. Reading Location: [facility] Treatment and Re-Evaluation Narrative: I have personally performed a face to face assessment of the patient and have reviewed the ROMULO Note. I performed a substantive portion of the visit including all aspects of the following. My guerrier findings include: History: Patient presents with back pain that began after her 2 falls. Patient states she fell 5 days ago. Patient states she fell again today. Patient complains of pain in her low back. Patient describes the pain as sharp and aching. Patient states her pain is worse with any movement. Patient states nothing makes it better. Patient denies any head injury or loss of consciousness. Patient denies any paresthesias or weakness. Exam: Vital signs are stable except for an elevated blood pressure of 195/93 initially. Patient is afebrile. Patient is in no acute distress. Oral mucosa is pink and moist. Neck is supple. Trachea is midline. There is no JVD. Heart was regular rate and rhythm. Lungs are clear and equal bilaterally. Abdomen is soft. Bowel sounds are normal. There is no tenderness. Musculoskeletal exam reveals tenderness over the lower lumbar spine. There is no bony crepitance or step-off. Range of motion was limited in all motions of the lumbar spine secondary to pain. Strength is 5/5 bilaterally in the lower extremities. There are no sensory deficits noted. Medical Decision Making: Differential diagnosis includes fracture, spondylolisthesis, and muscle strain. CT scan of the lumbar spine will be obtained to assess for fracture and spondylolisthesis. Patient was given a dose of [place] and Zofran here. CT scan of the lumbar spine was obtained. There is a compression fracture of the L2 vertebral body involving the superior endplate and 30% loss of height. There is 4 mm of fracture fragment retropulsion. There is also an unchanged compression deformity at T12. There are degenerative changes noted. This was interpreted by the radiologist and was also independently reviewed by myself. Patient was having persistent pain. Because of this, patient will be admitted to the hospital for pain control. Case was discussed with the hospitalist. He will admit the patient to his service. Patient and family understood and were agreeable with the plan. All questions were answered. Discharge Plan Triage Chief Complaint: Fall ED Midlevel Provider: Tia Benavides ED Provider: Jared Chandra Dx/Rx/DC Orders Prescriptions: No Action dexlansoprazole [Dexilant] 60 mg capsule,biphase delayed releas 60 mg PO BID Qty: 120 4RF clonidine 0.3 mg/24 hr patch weekly 1 patch transdermal QWEEK Linzess 72 mcg capsule 72 mcg PO DAILY PRN (Reason: constiopation) inclisiran 284 mg/1.5 mL syringe 284 mg subcut [id number] carvedilol [Coreg] 6.25 mg tablet 6.25 mg PO BID Qty: 60 11RF Rx Instructions: must administer with a meal/food multivitamin Tablet 1 tab PO DAILY acetaminophen 325 MG tablet 650 mg PO Q6H PRN PRN (Reason: Mild Pain (0-3/10)/Headache) 0RF paroxetine HCl 20 MG tablet 20 mg PO DAILY Qty: 30 0RF losartan 100 MG tablet 100 mg PO DAILY Qty: 30 0RF loratadine 10 MG tablet 10 mg PO DAILY PRN (Reason: ALLERGIES) 0RF hydrochlorothiazide 25 mg Tablet 25 mg PO DAILY albuterol sulfate 90 mcg/actuation Hfa Aerosol Inhaler 1 puff INHALATION Q6H PRN (Reason: SOB) cholecalciferol (vitamin D3) [Vitamin D3] 25 mcg (1,000 unit) Capsule 25 mcg PO DAILY clonidine HCl 0.1 mg tablet 0.1 mg PO DAILY PRN (Reason: high blood pressure) Primary Care Provider: Brandon March Chi Referrals: Brandon March Chi, MD [Primary Care Provider] - Print Language: Latvian
[2024-08-28] MEDS: HYDROcodone Bitartrate/Apap 5/325 Tablet PO (19:35)
--- NOTE | 2024-08-28 19:41 | CT_ITS ---
PROCEDURE: SPINE LUMBAR WITHOUT CONTRAST 08/28/2024 REASON FOR EXAM: FALLS, PAIN TECHNIQUE: SPINE LUMBAR WITHOUT CONTRAST Coronal and Sagittal reconstruction series were provided. One or more dose reduction techniques were used (e.g., Automated exposure control, adjustment of the mA and/or kV according to patient size, use of iterative reconstruction technique COMPARISON: Lumbar spine radiographs 08/27/2024, CT chest on 03/12/2024 RADIATION DOSE SUMMARY: CTDlvol: 28.7 mGy DLP: 970 mGycm FINDINGS: There is a fracture through the L2 superior endplate, both anteriorly and posteriorly, with approximately 30% height loss and 4 mm retropulsion of fracture fragments. This finding is new since CT on 03/12/2024. There is unchanged anterior wedging of the T12 vertebral body. Grade 1 anterolisthesis of L5 on S1 measuring 7 mm is unchanged. There are multilevel degenerative changes of the lumbar spine to include endplate osteophyte formation and facet arthrosis, which is worst at L5-S1 where there is moderate osseous neural foraminal narrowing bilaterally, in addition to moderate osseous spinal canal narrowing. Visualized pelvic contents demonstrate aortic atherosclerosis and colonic diverticulosis. Prior hysterectomy. CT/Spine Lumbar without Contrast IMPRESSION: 1. Compression fracture of the L2 vertebral body, involving the superior endpl ate and resulting in 30% height loss and 4 mm of fracture fragment retropulsion. This finding is new since CT on 03/12/2024. M RI could be performed to determine acuity if clinically warranted. 2. Unchanged compression deformity at T12. 3. Multilevel degenerative changes of the lumbar spine, worst at L5-S1. Reading Location: [facility]
--- NOTE | 2024-08-28 21:14 | PCM.HP.STD ---
[facility] - [facility] General Date of Admission: 08/28/24 Date of Service: 08/28/24 Chief Complaint: Fall x 2 this week. HPI Narrative JANIA SPRAGUE, is a 84 F with a past medical history of essential hypertension; on losartan, carvedilol BID, clonidine patch 0.3 mg weekly (plus oral clonidine prn) and hydrochlorothiazide, hyperlipidemia; on inclisiran sq q. 6 months, obesity; with BMI of 32.3 this admission, history of CVA (2018); with subsequent Right-sided weakness and intermittently unsteady gait, CKD; stage IIIa, history of tubular adenoma of colon, history of multiple thyroid nodules, depression; on paroxetine, fibromyalgia, IBS; of constipation-type on linaclotide daily prn, GERD with history of gastritis and esophagitis; on dexlansoprazole and OA; s/p TKR with chronic back pain causing patient to use a cane to ambulate at baseline and recent Fall on August 23, 2024 after she slipped on a sidewalk and fell onto her buttocks with elbow abrasions (but no head trauma or LOC) with patient then evaluated by EMS - but because she was able to get up and ambulate she did not seek further medical attention at that time with patient then evaluated by Dr. March who noted X-rays yesterday revealing misalignment but with no evidence of acute fracture and she was then started on a combination of naproxen, prednisone and a muscle relaxer who now presents to [facility] ER complaining of another fall with intractable back pain. Mrs. Sprague states she took her muscle relaxer ~10:00 AM and then around 2:00 PM she felt like her legs were rubbery and she then fell on to her buttocks again without head trauma or LOC with the fall. She states she had been placed in muscles relaxers in 2018 and had a similar experience. Her then tried to help her get up for ~2 hours before he eventually activated EMS. With the lift-assist she was able to ambulate down her steps at home but she then notice severe pain in her tailbone and back after the second fall so she decided to come in for further evaluation and treatment. She denies pain radiating down into her legs, saddle anesthesia or loss of bowel/bladder control. She also denies associated fever, chills, nausea, vomiting, diarrhea, abdominal pain, chest pain, palpitations, LE edema, dysuria, hematuria, headache or rash. In the ER she was noted to have a CT scan of the lumbar spine without contrast that revealed Compression Fracture of the L2 vertebral body involving the superior end-plate and resulting in ~30% height loss and ~4 mm of fracture fragment retropulsion, new since 03/12/2024 with MRI recommended to confirm acuity complicated by clinical evidence of Ambulatory Dysfunction and Generalized Weakness due to Intractable Back Pain and she was then admitted to the general medical floor under observation status for ongoing care for a stay that is expected to be less than 2 midnights. [facility] Medical History Thyroid nodule History of CVA (cerebrovascular accident) Personal history of colonic polyps Disorder of vitamin B12 Hyperlipidemia Essential (primary) hypertension Chronic kidney disease, stage 3a 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 Tubular adenoma of colon Esophagitis Gastritis Wears contact lenses Wears glasses Fibromyalgia Depression History of steroid therapy Ambulates with cane Arthritis History of renal disease Anemia High cholesterol Back pain Difficulty swallowing History of hiatal hernia History of IBS History of diverticulitis Hx of mitral valve prolapse Gastric reflux Non-smoker Shortness of breath on exertion Leg cramps History of edema Hypertension Cardiology follow-up encounter History of echocardiogram History of stress test Stroke/cerebrovascular accident Hiatal hernia Family history of colon cancer Weight loss Cataract Home Medications ?Medication ?Instructions ?Recorded ?Last Taken ?Type loratadine 10 mg tablet 10 mg PO DAILY PRN ALLERGIES 11/30/17 08/14/24 Rx losartan 100 mg tablet 100 mg PO DAILY heart #30 tabs 11/30/17 08/28/24 Rx paroxetine HCl 20 mg tablet 20 mg PO DAILY mood #30 tabs 11/30/17 08/28/24 Rx albuterol sulfate 90 mcg/actuation 1 puff inhalation Q6H PRN SOB 07/25/21 Unknown History aerosol inhaler cholecalciferol (vitamin D3) 25 25 mcg PO DAILY supplement 07/25/21 08/27/24 History mcg (1,000 unit) capsule (Vitamin D3) hydrochlorothiazide 25 mg tablet 25 mg PO DAILY blood pressure 07/25/21 08/27/24 History multivitamin 1 tab PO DAILY SUPPLEMENT 12/26/21 08/27/24 History dexlansoprazole 60 mg 60 mg PO BID reflux #120 caps 12/30/21 08/27/24 Rx capsule,biphase delayed release (Dexilant) clonidine 0.3 mg/24 hr weekly 1 patch transdermal QWEEK 07/05/23 Unknown History transdermal patch clonidine HCl 0.1 mg tablet 0.1 mg PO DAILY PRN high blood 07/05/23 08/14/24 History pressure inclisiran 284 mg/1.5 mL 284 mg subcut [id number] cholesterol 07/05/23 Unknown History subcutaneous syringe linaclotide 72 mcg capsule 72 mcg PO DAILY PRN constipation 07/05/23 06/12/24 History (Linzess) carvedilol 6.25 mg tablet (Coreg) 6.25 mg PO BID #60 tabs 02/25/24 08/28/24 Rx acetaminophen 500 mg tablet 500 mg PO Q6H PRN fever or pain 08/28/24 Unknown History (Acetaminophen Extra Strength) baclofen 10 mg tablet 10 mg PO QHS 08/28/24 08/27/24 History latanoprost 0.005 % eye drops 1 drp ophthalmic (eye) QHS 08/28/24 08/27/24 History meclizine 25 mg tablet 25 mg PO TID PRN PRN dizziness 08/28/24 08/28/24 History naproxen 250 mg tablet 250 mg PO BID 08/28/24 08/28/24 History prednisone 10 mg tablet 10 mg PO steroid 08/28/24 08/28/24 History Allergy/AdvReac Type Severity Reaction Status Date / Time adhesive tape Allergy Other Verified 08/28/24 18:48 valsartan Allergy Rash Verified 08/28/24 18:48 amlodipine AdvReac Other Verified 08/28/24 18:48 enalaprilat (From Vasotec) AdvReac Other Verified 08/28/24 18:48 minoxidil AdvReac Other Verified 08/28/24 18:48 risedronate sodium (From AdvReac Other Verified 08/28/24 18:48 Actonel) Family History Mother Cancer pancreatic Father Colon cancer Grandmother Breast cancer Surgical History History of carpal tunnel surgery of right wrist History of partial knee replacement History of cardiac catheterization History of total knee arthroplasty History of hysterectomy History of cholecystectomy S/P sclerotherapy of varicose veins H/O dilation and curettage History of tonsillectomy H/O adenoidectomy Social History Smoking Status: Never smoker alcohol intake: current alcohol intake frequency: holidays/special occasions only substance use type: does not use caffeine: Yes Type: coffee Number of servings: 1 ROS ROS Narrative Review of Systems: Constitutional: Patient denies fever or chills. Eyes: Patient denies changes in vision or discharge from eyes. ENT: Patient denies runny nose, sore throat or ear pain. Resp: Patient denies SOB or cough. CV: Patient denies chest pain, palpitations, heart racing or LE edema. GI: Patient denies abdominal pain, nausea, vomiting or diarrhea. She has chronic constipation as per HPI. : Patient denies dysuria, hematuria or urinary frequency. MSK: Patient admits to severe back pain and pain emanating from tailbone made worse with activity as per HPI. Skin: Patient admits to skin abrasions on elbows after recent fall as per HPI. She denies rash. Psych: Patient denies symptoms of uncontrolled depression or anxiety. Neuro: Patient denies headache, paresthesias or acute focal neurologic deficits. Allergy: Patient denies lip swelling, tongue swelling or urticaria. Hematology: Patient denies easy bleeding or easy bruisability. Endocrinology: Patient denies polyuria, polydipsia, polyphagia or heat/cold intolerance. 14 point ORS otherwise negative except for positives noted above in HPI. Vital Signs Vital Signs Vital Signs: 08/28/24 18:40 08/28/24 18:48 08/28/24 19:39 Temperature 97.7 F L Temperature Source Oral Pulse Rate 64 69 Respiratory Rate 18 18 Respiratory Effort Normal Respiratory Depth Normal Respiratory Pattern Normal Blood Pressure 195/93 H 147/74 H Blood Pressure Mean 127 98 Pulse Ox 95 97 Oxygen Delivery Method Room Air Room Air Room Air Weight Weight: 171 lb 1.259 oz Body Mass Index (BMI) 32.3 Physical Exam Const alert and oriented x3 Constitutional Narrative: Obese with mild distress noted. General Appearance: cooperative HEENT normocephalic, head/scalp atraumatic, hearing grossly normal bilaterally and moist oral mucous membranes Eyes PERRL, EOMs intact bilaterally and conjunctivae normal Neck no lymphadenopathy, supple and no JVD Resp normal respiratory effort, no retractions, no use of accessory muscles and clear to auscultation bilaterally Cardio regular rate and regular rhythm GI normal to inspection, nondistended, normoactive bowel sounds, soft to palpation, non-tender and non-distended GI Narrative: Obese. Extremity Extremity Narrative: Patient has limited ROM due to pain with abrasions on elbows and intact sensation with no signs of vascular compromise. Skin Skin Narrative: Patient has abrasions on elbows bu no rash. Neuro oriented x3, CN's II-XII intact bilaterally, moves all extremities and no focal motor deficits Sensorium / Orientation: awake, alert, oriented to person, oriented to place and oriented to time Speech: speech normal Psych affect normal Results Medical Records Data Attestation: I reviewed the patient's medical records Lab / Micro Data Attestation: I reviewed the patient's lab results. 08/28/24 21:18 08/28/24 21:18 Imaging Radiology Impression Lumbar Spine CT 08/28/24 19:41 IMPRESSION: 1. Compression fracture of the L2 vertebral body, involving the superior endplate and resulting in 30% height loss and 4 mm of fracture fragment retropulsion. This finding is new since CT on 03/12/2024. MRI could be performed to determine acuity if clinically warranted. 2. Unchanged compression deformity at T12. 3. Multilevel degenerative changes of the lumbar spine, worst at L5-S1. Reading Location: [id number] Assessment & Plan Assessment/Plan (1) Compression fracture of L2: QUALIFIERS: Encounter type: initial encounter Qualified Code(s): S32.020A - Wedge compression fracture of second lumbar vertebra, initial encounter for closed fracture (2) Fall: QUALIFIERS: Encounter type: initial encounter Qualified Code(s): W19.XXXA - Unspecified fall, initial encounter (3) Intractable back pain: (4) Adverse drug reaction: QUALIFIERS: Encounter type: initial encounter Qualified Code(s): T50.905A - Adverse effect of unspecified drugs, medicaments and biological substances, initial encounter (5) Ambulatory dysfunction: (6) Generalized weakness: (7) Leukocytosis: QUALIFIERS: Leukocytosis type: unspecified Qualified Code(s): D72.829 - Elevated white blood cell count, unspecified PLAN: Plan 1. CT scan of the lumbar spine without contrast that revealed Compression Fracture of the L2 vertebral body involving the superior end-plate and resulting in ~30% height loss and ~4 mm of fracture fragment retropulsion, new since 03/12/2024 with MRI recommended to confirm acuity after recent Fall - Admit to general medical floor under observation status. Check MRI of the lumbar spine in AM when this test is available to confirm acute fracture. Start Decadron 6 mg IV TID. Finally, we will consult ortho-spine to see this patient on rounds in the AM for further recommendations with help appreciated in advance. 2. Ambulatory Dysfunction and Generalized Weakness due to Intractable Back Pain attributable to #1 - PT/OT and Case Management to consult and treat on rounds in the AM for further recommendations in the likely case she will need ECF with help appreciated in advance. Give acetaminophen prn for [id number] (level 1-5/10) pain or fever. Give morphine IV prn for severe (level 6-10/10) pain. 3. Leukocytosis of 25K present on admission suspected to be due to leukocyte margination after recent steroid adminitration with no overt signs of infection complicating #1 & #2 - Check UA C&S. 4. Adverse Drug Reaction to muscle relaxer likely contributing to #1 - Avoid muscle relaxers due to poor equilibrium that is easily exacerbated by this class of agents. 5. Recent Fall on August 23, 2024 after she slipped on a sidewalk and fell onto her buttocks with elbow abrasions (but no head trauma or LOC) patient then evaluated by EMS - but because she was able to get up and ambulate she did not seek further medical attention at that time compounding #1 - #3 - Noted. 6. History of CVA (2018); with subsequent Right-sided weakness and intermittently unsteady gait in the setting of known OA; s/p TKR with chronic back pain causing patient to use a cane to ambulate at baseline adding to the medical complexity of #1 - #4 - Noted. 7. Obesity; with BMI of 32.3 this admission adding to the burden of disease outlined from #1 - #5 - Weight loss will be recommended. Check TSH. This complicates her case and may hamper recovery. 8. Essential hypertension; on losartan, carvedilol BID, clonidine patch 0.3 mg weekly (plus oral clonidine prn) and hydrochlorothiazide - Maintain home regimen. 9. Hyperlipidemia; on inclisiran sq q. 6 months - Stable. 10. CKD; stage IIIa - Stable. 11. History of tubular adenoma of colon - Noted. 12. History of multiple thyroid nodules - Noted. 13. Depression; on paroxetine - Resume paroxetine as before. 14. Fibromyalgia - Stable. 15. IBS; of constipation-type on linaclotide daily prn - Continue prn linaclotide as previous. 16. GERD with history of gastritis and esophagitis; on dexlansoprazole - Maintain PPI. 17. DVT prophylaxis - SCD's only at this time in case patient requires orthopedic intervention. Total time: Approximately (but not less than) 85 minutes. Charges/Coding Visit Charges OBSV E&M: 45290 Observ/hosp same date L3
[2024-08-28 21:34] LABS: Hematocrit 38.9 % (37-47); Hemoglobin 13.6 g/dL (12.0-15.0); Immature Granulocytes Count 0.180 X10^3/uL (0.0-0.0); Mean Corp Hgb Conc 35.0 g/dL (32-36); Mean Corpuscular Volume 90.0 fL (81-99); Mean Platelet Vol. 10.2 fl (6.2-12.0); NRBC Flagged by Analyzer 0 % (0-5); POSITIVE DIFFERENTIAL YES; Platelet Count 300 K/mm3 (150-450); RBC Distribution Width CV 12.0 % (11.6-14.6); RBC Distribution Width SD 39.5 fl (35.1-43.9); Red Blood Count 4.32 M/mm3 (4.2-5.4); White Blood Count 25.0 K/mm3 (4.4-11.0)
--- OUTSIDE RECORDS SUMMARY | 2024-08-28 21:35 | XMS RPT_ITS | CCD ---
Author Organization [facility] Care Team Providers Care Geosciences Professor Name Role Phone Now Nurse Unavailable Unavailable Now Nurse Unavailable Unavailable Now Nurse Unavailable Unavailable Dr. Brandon March Chi Primary Care Provider Joaquim, Dr. Brandon Wilks Referring Provider Friend, Dr. Andino Attending Provider FriendDr. Andino Other Provider Joaquim, Dr. Brandon Wilks Primary Care Provider Joaquim, Dr. Brandon Wilks Referring Provider Friend, Dr. Andino Attending Provider Jhon WARP COILER, WARP COILER-C Crissy Vance Attending Provider Joaquim, Dr. Brandon Wilks Primary Care Provider Lory Sahni Attending Provider Unavailable Joaquim, Dr. Brandon Wilks Referring Provider Friend, Dr. Andino Attending Provider Marissa Howard Attending Provider Unavailable Dr. Bennie Landrum Attending Provider JoaquimDr. Brandon donald Chi Primary Care Provider Joaqium, Dr. Brandon Wilks Referring Provider FriendDr. Andino Attending Provider NAIMA Kemp Attending Provider Dr. Bennie Landrum Attending Provider NAIMA Kemp Referring Provider Dr. Brandon March Chi Primary Care Provider Joaquim, Dr. Brandon Wilks Referring Provider Deborah MCNAMARA, PA Jazmyn Vance Attending Provider Dr. Brandon March Chi Primary Care Provider Dr. Albert Ward Referring Provider Dr. Albert Ward Other Provider Shiva WARP COILER-C Jeannine Renteria Attending Provider Dr. Brandon March MD, Chi Primary Care Provider [facility], Dr. Matias Emergency Provider de Ovidio ROB, Dr. Bowden Admit Provider Unavail able Wright DO, Dr. Bowden Other Provider Unavail able Rosa CALVILLO, Dr. Mckeon Other Provider Unavailable Jaime CALVILLO, Dr. Granger Other Provider Dhruv CALVILLO, Dr. Curiel Other Provider Lucita CALVILLO, Dr. Avery Other Provider Caleb CALVILLO, Dr. Saez Other Provider Megan CALVILLO, Dr. Roland Other Provider Katie CALVILLO, Dr. Jefferson Other Provider Laz CALVILLO, Dr. Brown Other Provider David CALVILLO, Dr. Gibson Other Provider [facility] WARP COILER-Son Bellamy Other Provider Deborah MCNAMARA, Jazmyn Vance Other Provider Dr. Macario Allen DO Other Provider Awa CALVILLO, Dr. Cal Galeano Attending Provider Caleb CALVILLO, Dr. Saez Attending Provider Megan CALVILLO, Dr. Roland Attending Provider Dr. Macario Allen DO Attending Provider Awa CALVILLO, Dr. Cal Galeano Other Provider Dr. Brandon March MD, Chi Referring Provider [phone] Beena CALVILLO, Dr. Badlwin Attending Provider [phone] Beena CALVILLO, Dr. Baldwin Referring Provider Joaquim CALVILLO, Dr. Brandon Wilks Attending Provider Awa CALVILLO, Dr. Cal Galeano Referring Provider Kal Wright Admitting Unavailable Cal Billings Attending Unavailable Kal Wright Consulting Unavailable Joaquim, Brandon Chi Primary Care Unavailable Amro, Ahmed Consulting Unavailable Jaime, Bárbara Consulting Unavailable Moisés Bartlett Consulting Unavailable Lucita, Ebnnie Consulting Unavailable Belal, Farouk Consulting Unavailable Luan Guzman Consulting Unavailable Ronny Wilson Consulting UnavailKevin Villeda Consulting Unavailable Chelsey Hernandezatore Consulting Unavailable [facility] KIT, Son Aguilar Consulting Unavailable Jazmyn Kemp Consulting Unavail able Macario Allen Consulting Unavailable Cal Billings Consulting Unavailable Kal Wright Attending Unavailable Macario Allen Attending Unavailable Joaquim, Brandon Chi Referring Unavailable Joaquim, Brandon Chi Primary Care Unavailable Joaquim, Brandon Chi Attending Unavailable Joaquim, Brandon Chi Referring Unavailable Joaquim, Brandon Chi Primary Care Unavailable Joaquim, Brandon Chi Attending Unavailable Joaquim, Brandon Chi Referring Unavailable Joaquim, Brandon Chi Attending Unavailable Joaquim, Brandon Chi Primary Care Unavailable Denny Hargrove Referring Unavailable Denny Hargrove Attending Unavailable Joaquim, Brandon Chi Primary Care Unavailable Luan Guzman Attending Unavailable Joaquim, Brandon Chi Primary Care Unavailable Lucita, [place] Attending Unavailable Joaquim, Brandon Chi Primary Care Unavailable Belal, Farouk Attending Unavailable Cal Billings Referring Unavailable Joaquim, Brandon Chi Primary Care Unavailable Joaquim, Brandon Chi Attending Unavailable Joaquim, Brandon Chi Primary Care Unavailable Jazmyn Kemp Referring Unavail able Jazmyn Kemp Attending Unavail able Joaquim, Brandon Chi Referring Unavailable Joaquim, Brandon Chi Primary Care Unavailable Joaquim, Brandon Chi Attending Unavailable Joaquim, Brandon Chi Referring Unavailable Joaquim, Brandon Chi Attending Unavailable Joaquim, Brandon Chi Primary Care Unavailable Cal Billings Attending Unavailable Joaquim, Brandon Chi Primary Care Unavailable Kal Wright Consulting Unavailable Kal Wright Admitting Unavailable Amro, Ahmed Consulting Unavailable Jaime, Bárbara Consulting Unavailable Luisa Bartlettndan Consulting Unavailable Lucita, [place] Consulting Unavailable BelSe to Consulting Unavailable Luan Guzman Consulting Unavailable Olivia Wilsonadevignesh Consulting Unavailian e Satti, Kevin Consulting Unavailable Loami, Arthur Consulting Unavailable Hema PANTOJA, Son Aguilar Consulting Unavailable Deborah MCNAMARA, Jazmyn Vance Consulting Unavail able Macario Allen Consulting Unavailable Joaquim, Brandon Chi Referring Unavailable Joaquim, Brandon Chi Attending Unavailable Joaquim, Brandon Chi Primary Care Unavailable Joaquim, Brandon Chi Primary Care Unavailable Luan Paul Referring Unavailable Luan Paul Attending Unavailable Joaquim, Brandon Chi Primary Care Unavailable Joaquim, Brandon Chi Referring Unavailable Joaquim, Brandon Chi Attending Unavailable Joaquim, Brandon Chi Primary Care Unavailable Joaquim, Brandon Chi Referring Unavailable Deborah MCNAMARA, Jazmyn Vance Attending Unavail able Luan Paul Attending Unavailable Joaquim, Brandon Chi Referring Unavailable Joaquim, Brandon Chi Primary Care Unavailable Joaquim, Brandon Chi Referring Unavailable Luan Guzman Attending Unavailable Joaquim, Brandon Chi Primary Care Unavailable Allergies Allergy Classification Reported Allergen(s) Allergy Type Date of Onset Reaction(s) Facility (3 sources) Adhesive bandage; Translations: [ADHESIVE BANDAGES] allergy to substance 09-01-2010 [facility] Work Phone: (3 sources) amLODIPine Drug Allergy 11-29-2016 [facility] Work Phone: (6 sources) Enalapril Drug Allergy 09-01-2010 [facility] Work Phone: (17 sources) Minoxidil Drug Allergy 11-29-2016 Other [facility] Work Phone: Comment on above: SWELLING ANKLES, FUNK DS SHAKE (17 sources) valsartan Drug Allergy 11-29-2016 [facility] Work Phone: (15 sources) Adhesive Tape; Translations: [adhesive tape] Allergy to substance 06-07-2018 Other [facility] Comment on above: BLISTERS (14 sources) amLODIPine Drug Allergy 06-07-2018 Other [facility] Comment on above: DIZZY, SHAKES (14 sources) Enalaprilat Drug Allergy 06-07-2018 Other [facility] Comment on above: DRY COUGH (14 sources) Risedronate Drug Allergy 06-07-2018 Other [facility] (1 source) amLODIPine Drug Allergy 06-03-2024 [facility] (1 source) Enalaprilat Drug Allergy 06-03-2024 [facility] (1 source) Minoxidil Drug Allergy 06-03-2024 [facility] (1 source) Risedronate Drug Allergy 06-03-2024 [facility] (1 source) valsartan Drug Allergy 06-03-2024 [facility] Medications Current Medications Medication Drug Class(es) Dates Sig (Normalized) Sig (Original) acetaminophen 325 mg oral tablet (14 sources) Start: 11-30-2017 take 2 tablets by mouth every six hours as needed for pain Acetaminophen 325 MG tablet Active 650 mg PO EVERY 6 HOURS NEEDED as needed for Mild Pain (0-3/10)/Headache November 30, 2017 12:00am Start: 11-30-2017 take 650 mg by mouth every six hours as needed Acetaminophen Active 650 MG PO EVERY 6 HOURS NEEDED November 30, 2017 12:00am Albuterol Sulfate (13 sources) beta2-Adrenergic Agonist Start: 07-25-2021 take 1 puff(s) by inhalation every six hours Albuterol Sulfate Active 1 PUFF INHALATION EVERY 6 HOURS July 25, 2021 12:00pm Start: 07-25-2021 Albuterol Sulf ate 90 mcg/actuation Hfa Aerosol Inhaler Active 1 NMA INHALATION EVERY 6 HOURS as needed for SOB July 25, 2021 12:00am Start: 07-25-2021 take 1 puff(s) by in halation every six hours Albuterol Sulfate Active 1 PUFF INHALATION EVERY 6 HOURS July 25, 2021 12:00am carvedilol 6.25 mg oral tablet (1 source) alpha-Adrenergic Chris, beta-Adrenergic Chris Start: 02-25-2024 take 1 tablet by mouth twice daily at mealtime Carvedilol (Coreg) 6.25 mg tablet Active 6.25 mg PO TWICE A DAY 60 February 25, 2024 1:00am must administer with a meal/food cholecalciferol 0.025 mg oral capsule (20 sources) Vitamin D Start: 07-25-2021 take 1 capsule by mouth once daily Cholecalciferol (Vitamin D3) (Vitamin D3) 25 mcg (1,000 unit) Capsule Active 25 ug PO DAILY July 25, 2021 12:00am Start: 04-09-2017 End: 11-30-2017 take 1 capsule by mouth every month Cholecalciferol (Vitamin D3) 50,000 unit capsule Discontinued [id number] U PO MONTHLY April 09, 2017 1:00am November 30, 2017 1:09pm cloNIDine hydrochloride 0.1 mg oral tablet (20 sources) Central alpha-2 Adrenergic Agonist Start: 07-05-2023 take 1 tablet by mouth once daily as needed for hypertension Clonidine Hcl 0.1 mg tablet Active 0.1 mg PO DAILY as needed for high blood pressure July 05, 2023 3:17pm Start: 07-05-2023 Clonidine 0.3 mg/24 hr patch weekly Active 1 NMA TD EVERY WEEK July 05, 2023 12:00am Start: 12-26-2021 End: 01-11-2022 take 1 tablet by mouth at bedtime Clonidine Hcl 0.1 mg tablet Discontinued 0.1 mg PO AT BEDTIME December 26, 2021 2:35pm January 11, 2022 3:54pm Start: 12-26-2021 End: 07-05-2023 take 1 tablet by mouth three times daily Clonidine Hcl 0.1 mg tablet Discontinued 0.1 mg PO THREE TIMES A DAY January 11, 2022 3:48pm July 05, 2023 3:20pm Start: 07-25-2021 End: 12-26-2021 take 1 tablet by mouth twice daily Clonidine Hcl 0.1 mg Tablet Discontinued 0.1 mg PO TWICE A DAY July 25, 2021 12:00am December 26, 2021 2:37pm Start: 11-29-2016 CLONIDINE HCL TABS as directed CLONIDINE HCL TABS [id number] Albert MCNAMARA Dexlansoprazole (Dexilant) 60 mg capsule,biphase delayed releas (20 sources) Start: 12-30-2021 take 1 capsule by mouth twice daily Dexlansoprazole (Dexilant) 60 mg capsule,biphase delayed releas Active 60 mg PO TWICE A DAY 120 December 30, 2021 9:47am Start: 12-30-2021 take 1 capsule by [facility] twice daily Dexlansoprazole (Dexilant) 60 mg capsule,biphase delayed releas Active 60 MG PO TWICE A DAY 120 December 30, 2021 9:47am Start: 12-30-2021 take 1 capsule by [facility] twice daily Dexlansoprazole (Dexilant) 60 mg capsule,biphase delayed releas Active 60 MG PO TWICE A DAY 120 December 30, 2021 8:47am Start: 08-10-2021 End: 12-30-2021 Dexlansoprazole (Dexilant) 6 0 mg capsule,biphase delayed releas Discontinued 60 mg PO TWICE A DAY 120 August 10, 2021 2:42pm December 30, 2021 9:47am take twice a day for 2 months, then once a day for 2 months, then as needed Start: 08-10-2021 End: 12-30-2021 Dexlansoprazole (Dexilant) 6 0 mg capsule,biphase delayed releas Discontinued 60 MG PO TWICE A DAY 120 August 10, 2021 2:42pm December 30, 2021 9:47am take twice a day for 2 months, then once a day for 2 months, then as needed Start: 08-10-2021 End: 12-30-2021 Dexlansoprazole (Dexilant) 6 0 mg capsule,biphase delayed releas Discontinued 60 MG PO TWICE A DAY 120 August 10, 2021 1:42pm December 30, 2021 8:47am take twice a day for 2 months, then once a day for 2 months, then as needed Start: 08-10-2021 Dexlansoprazol e (Dexilant) 60 mg capsule,biphase delayed releas Active 60 MG PO TWICE A DAY 120 August 10, 2021 2:42pm take twice a day for 2 months, then once a day for 2 months, then as needed hydroCHLOROthiazide 25 mg oral tablet (13 sources) Thiazide Diuretic Start: 07-25-2021 take 1 tablet by mouth once daily Hydrochlorothiazide 25 mg Tablet Active 25 mg PO DAILY July 25, 2021 12:00am Inclisiran (1 source) Start: 07-05-2023 Inclisiran 284 mg/1.5 mL syringe Active 284 mg SC every 6 months July 05, 2023 12:00am linaclotide 0.072 mg oral capsule (20 sources) Guanylate Cyclase-C Agonist Start: 12-30-2021 End: 07-05-2023 take 1 capsule by mouth once daily as needed Linaclotide (Linzess) 72 mcg capsule Active 72 ug PO DAILY as needed for constiopation July 05, 2023 3:19pm loratadine 10 mg oral tablet (14 sources) Start: 11-30-2017 take 1 tablet by mouth once daily as needed Loratadine 10 MG tablet Active 10 mg PO DAILY as needed for ALLERGIES November 30, 2017 12:00am Multivitamin preparation (20 sources) Start: 12-26-2021 take 1 tablet by mouth once daily Multivitamin Active 1 TABLET PO DAILY December 26, 2021 2:34pm Start: 12-26-2021 take 1 tablet by mariela th once daily Multivitamin Active 1 TABLET PO DAILY December 26, 2021 1:34pm Start: 04-24-2017 Multivitamin A ctive 1 EACH PO DAILY April 24, 2017 11:14am Start: 04-24-2017 End: 12-26-2021 Multivitamin Discontinued 1 EACH PO DAILY April 24, 2017 12:00am December 26, 2021 2:37pm Start: 04-24-2017 End: 12-26-2021 Multivitamin Discontinued 1 EACH PO DAILY April 23, 2017 11:00pm December 26, 2021 1:37pm Start: 04-24-2017 Multivitamin A ctive 1 EACH PO DAILY April 24, 2017 12:00am Multivitamin tablet (1 source) Start: 12-26-2021 Multivitamin t ablet Active 1 {tbl} PO DAILY December 26, 2021 2:34pm [place]-3 Fatty Acids-Vitamin E (Fish Oil) 1,000 mg Capsule (13 sources) Start: 07-25-2021 take 1 capsule by mouth twice daily [place]-3 Fatty Acids-Vitamin E (Fish Oil) 1,000 mg Capsule Active 1 CAP PO TWICE A DAY July 25, 2021 12:05pm Start: 07-25-2021 End: 01-11-2022 [place]-3 Fatty Acids-Vitamin E (Fish Oil) 1,000 mg Capsule Discontinued 1 NMA PO TWICE A DAY July 25, 2021 12:00am January 11, 2022 3:51pm Start: 07-25-2021 End: 01-11-2022 take 1 capsule by mouth twice daily [place]-3 Fatty Acids-Vitamin E (Fish Oil) 1,000 mg Capsule Discontinued 1 CAP PO TWICE A DAY July 25, 2021 12:00am January 11, 2022 3:51pm Start: 07-25-2021 End: 01-11-2022 take 1 capsule by mouth twice daily [place]-3 Fatty Acids-Vitamin E (Fish Oil) 1,000 mg Capsule Discontinued 1 CAP PO TWICE A DAY July 24, 2021 11:00pm January 11, 2022 2:51pm Start: 07-25-2021 take 1 capsule by mo [facility] twice daily [place]-3 Fatty Acids-Vitamin E (Fish Oil) 1,000 mg Capsule Active 1 CAP PO TWICE A DAY July 25, 2021 12:00am PARoxetine hydrochloride 20 mg oral tablet (14 sources) Serotonin Reuptake Inhibitor Start: 11-30-2017 take 1 tablet by mouth once daily Paroxetine Hcl 20 MG tablet Active 20 mg PO DAILY November 30, 2017 12:00am Completed/Discontinued Medications Medication Drug Class(es) Dates Sig (Normalized) Sig (Original) acetaminophen 325 mg / HYDROcodone bitartrate 5 mg oral tablet (14 sources) Opioid Agonist Start: 06-09-2018 End: 06-12-2018 Hydrocodone-Acetami nophen 1 TABLET tablet Discontinued 1 {tbl} PO EVERY 6 HOURS NEEDED as needed for Pain 10 June 09, 2018 12:00am June 11, 2018 12:00am June 12, 2018 12:08am Start: 06-09-2018 End: 06-12-2018 take 1 tablet by mouth every six hours as needed Hydrocodone-Acetaminophen Discontinued 1 TABLET PO EVERY 6 HOURS NEEDED 10 June 09, 2018 12:00am June 12, 2018 12:08am acetaminophen 325 mg / oxyCODONE hydrochloride 5 mg oral tablet (14 sources) Opioid Agonist Start: 05-03-2017 End: 05-14-2017 Oxycodone-Acetaminophen 1 TABLET tablet Discontinued 1 - 2 {tbl} PO EVERY 4 HOURS NEEDED as needed for Pain 60 May 03, 2017 12:00am May 14, 2017 9:15am Start: 05-03-2017 End: 05-14-2017 take 1 tablet by mouth every four hours as needed Oxycodone-Acetaminophen Discontinued 1 - 2 TABLET PO EVERY 4 HOURS NEEDED 60 May 03, 2017 12:00am May 14, 2017 9:15am amLODIPine 2.5 mg oral tablet (6 sources) Dihydropyridine Calcium Channel Chris Start: 09-01-2010 End: 06-15-2011 take 1 tablet by mouth twice daily AMLODIPINE BESYLATE 2.5 MG TABS One tablet by mouth twice daily AMLODIPINE BESYLATE [id number] Rayshawn Tejada Tab aspirin 81 mg delayed release oral tablet (20 sources) Platelet Aggregation Inhibitor, Nonsteroidal Anti-inflammatory Drug Start: 07-25-2021 End: 07-20-2022 take 1 tablet by mouth once daily Aspirin (Aspir-81) 81 mg Tablet,Delayed Release (Dr/Ec) Discontinued 81 mg PO DAILY July 25, 2021 12:00am July 20, 2022 11:04am Start: 06-15-2011 End: 11-29-2016 take 1 tablet by mouth once daily ASPIRIN 81 MG TABS (ASPIRIN) One tablet by mouth daily ASPIRIN 81 MG TABS (ASPIRIN) Albert MCNAMARA Start: 09-01-2010 take 1 tablet by mariela th once daily ASPIRIN 325 MG TABS One tablet by mouth daily ASPIRIN [id number] Honey Casanova atenolol 25 mg oral tablet (6 sources) beta-Adrenergic Chris Start: 09-01-2010 End: 11-29-2016 take 1 tablet by mouth once daily ATENOLOL 25 MG TABS One tablet by mouth daily ATENOLOL [id number] Albert MCNAMARA atorvastatin 40 mg oral tablet (14 sources) HMG-CoA Reductase Inhibitor Start: 11-08-2017 End: 11-08-2017 take 1 tablet by mouth at bedtime Atorvastatin 40 MG tablet Discontinued 40 mg PO AT BEDTIME 0 November 08, 2017 12:00am November 08, 2017 3:15pm chlorthalidone 50 mg oral tablet (15 sources) Thiazide-like Diuretic Start: 11-08-2017 End: 11-08-2017 Chlorthalidone 50 MG tablet Discontinued 25 mg PO DAILY November 08, 2017 12:00am November 08, 2017 3:15pm Start: 11-08-2017 End: 11-08-2017 take 25 mg by mouth once daily Chlorthalidone Discontinued 25 MG PO DAILY November 08, 2017 12:00am November 08, 2017 3:15pm Start: 11-05-2017 take 25 mg by mouth once daily Chlorthalidone Active 25 MG PO DAILY November 05, 2017 9:40pm clopidogrel 75 mg oral tablet (14 sources) [id number] Platelet Inhibitor Start: 06-09-2018 End: 07-05-2023 take 1 tablet by mouth once daily Clopidogrel 75 MG tablet Discontinued 75 mg PO DAILY June 09, 2018 12:00am July 05, 2023 3:20pm dexlansoprazole 60 mg delayed release oral capsule (14 sources) Proton Pump Inhibitor Start: 04-09-2017 End: 08-10-2021 Dexlansoprazole (Dexilant) 60 mg capsule,biphase delayed releas Discontinued 60 mg PO NEEDED as needed for STOMACH DISCOMFORT April 09, 2017 1:00am August 10, 2021 2:43pm doxepin hydrochloride 25 mg oral capsule (14 sources) Tricyclic Antidepressant Start: 11-30-2017 End: 07-05-2023 take 1 capsule by mouth at bedtime as needed for sleep Doxepin 25 MG capsule Discontinued 25 mg PO AT BEDTIME as needed for SLEEP November 30, 2017 12:00am July 05, 2023 3:19pm doxycycline monohydrate 100 mg oral capsule (16 sources) Tetracycline-class Drug Start: 07-25-2021 End: 12-30-2021 take 1 capsule by mouth twice daily Doxycycline Monohydrate 100 mg Capsule Discontinued 100 mg PO TWICE A DAY July 25, 2021 12:00am December 30, 2021 9:11am Start: 11-29-2016 DOXYCYCLINE MO NOHYDRATE 100 MG CAPS 1 capsule twice a day DOXYCYCLINE MONOHYDRATE [id number] Albert MCNAMARA Ergocalciferol (3 sources) Provitamin D2 Compound Start: 11-29-2016 VITAMIN D2 TABS as directed ERGOCALCIFEROL TABS [id number] Albert MCNAMARA fexofenadine hydrochloride 180 mg oral tablet (6 sources) Histamine-1 Receptor Antagonist Start: 09-01-2010 End: 11-29-2016 take 1 tablet by mouth once daily FEXOFENADINE HCL 180 MG TABS One tablet by mouth daily FEXOFENADINE HCL [id number] Honey Casanova icosapent ethyl 1000 mg oral capsule (10 sources) Start: 01-11-2022 End: 07-05-2023 Icosapent Ethyl (Vascepa) 1 gram capsule Discontinued 1 g PO DAILY January 11, 2022 1:00am July 05, 2023 3:19pm lactobacillus acidophilus [id number] unt oral capsule (10 sources) Start: 01-11-2022 End: 07-05-2023 Lactobacillus Acidophilus (Acidophilus) capsule Discontinued 100 NMA PO DAILY January 11, 2022 1:00am July 05, 2023 3:19pm Start: 01-11-2022 Lactobacillus Acidophilus (Acidophilus) capsule Active 100 MMU CELLS PO DAILY January 11, 2022 1:00am Start: 01-11-2022 Lactobacillus Acidophilus (Acidophilus) capsule Active 100 MMU CELLS PO DAILY January 11, 2022 12:00am losartan potassium 100 mg oral tablet (20 sources) Angiotensin 2 Receptor Chris Start: 04-09-2017 End: 11-30-2017 take 1 tablet by mouth once daily Losartan 100 MG tablet Discontinued 100 mg PO DAILY November 08, 2017 12:00am November 08, 2017 3:15pm Start: 11-29-2016 LOSARTAN POTAS SIUM TABS as directed LOSARTAN POTASSIUM TABS [id number] Albert MCNAMARA meclizine hydrochloride 25 mg oral tablet (1 source) Antiemetic Start: 01-23-2024 End: 02-25-2024 take 1 tablet by mouth three times daily as needed Meclizine 25 mg Tablet Discontinued 25 mg PO 3 TIMES DAILY NEEDED as needed for Vertigo 26 06January 23, 2024 1:00am February 25, 2024 11:59am metoprolol tartrate 25 mg oral tablet (1 source) beta-Adrenergic Chris Start: 01-23-2024 End: 02-25-2024 Metoprolol Tartrate 25 mg Tablet Discontinued 12.5 mg PO TWICE A DAY January 23, 2024 1:00am February 25, 2024 12:16pm MULTIPLE VITAMIN (3 sources) Start: 11-29-2016 MULTIVITAMINS CAPS as directed MULTIPLE VITAMIN [id number] Albert MCNAMARA Multivitamin 1 EACH tablet (1 source) Start: 04-24-2017 End: 12-26-2021 Multivitamin 1 EACH tablet Discontinued 1 NMA PO DAILY April 24, 2017 12:00am December 26, 2021 2:37pm OMEGA-3 FATTY ACIDS CPDR (6 sources) Start: 09-01-2010 take 1 tablet by mouth once daily OMEGA 3 CPDR One tablet by mouth daily OMEGA-3 FATTY ACIDS CPDR [id number] Honey Casanova Start: 09-01-2010 End: 11-29-2016 take 1 tablet by mouth once daily OMEGA 3 CPDR One tablet by mouth daily OMEGA-3 FATTY ACIDS CPDR [id number] Albert MCNAMARA omeprazole 20 mg delayed release oral capsule (6 sources) Proton Pump Inhibitor Start: 09-01-2010 End: 11-29-2016 take 1 tablet by mouth once daily OMEPRAZOLE 20 MG CPDR One tablet by mouth daily OMEPRAZOLE [id number] Honey Casanova ondansetron 4 mg disintegrating oral tablet (14 sources) Serotonin-3 Receptor Antagonist Start: 10-26-2013 End: 04-09-2017 take 1 tablet by mouth every eight hours as needed for nausea Ondansetron 4 MG tablet Discontinued 4 mg PO EVERY 8 HOURS NEEDED as needed for Nausea October 26, 2013 12:00am April 09, 2017 2:56pm pitavastatin calcium 2 mg oral tablet (20 sources) HMG-CoA Reductase Inhibitor Start: 06-09-2018 End: 01-11-2022 take 1 tablet by mouth every other day Pitavastatin Calcium (Livalo) 2 mg tablet Discontinued 2 mg PO EVERY OTHER DAY May 02, 2021 1:06pm January 11, 2022 3:52pm Start: 04-09-2017 End: 11-08-2017 take 1 tablet by mouth once Pitavastatin Calcium (Liva lo) 2 mg tablet Discontinued 2 mg PO ONCE April 09, 2017 1:00am November 08, 2017 9:53am Start: 09-01-2010 End: 11-29-2016 LIVALO 2 MG TABS One tablet by mouth twice daily.12 PITAVASTATIN CALCIUM [id number] Albert MCNAMARA promethazine hydrochloride 25 mg oral tablet (14 sources) Phenothiazine Start: 05-03-2017 End: 05-14-2017 take 1 tablet by mouth every four hours as needed for nausea Promethazine 25 MG tablet Discontinued 25 mg PO EVERY 4 HOURS NEEDED as needed for Nausea May 03, 2017 12:00am May 14, 2017 9:16am rosuvastatin calcium 10 mg oral tablet (10 sources) HMG-CoA Reductase Inhibitor Start: 01-11-2022 End: 07-05-2023 take 1 tablet by mouth once daily Rosuvastatin 10 mg tablet Discontinued 10 mg PO DAILY January 11, 2022 1:00am July 05, 2023 3:18pm sucralfate 1000 mg oral tablet (11 sources) Aluminum Complex Start: 08-10-2021 End: 01-11-2022 take 1 tablet by mouth before mealtime Sucralfate 1 gram tablet Discontinued 1 g PO before meals August 10, 2021 12:00am January 11, 2022 3:53pm sulfamethoxazole 800 mg / trimethoprim 160 mg oral tablet (14 sources) Dihydrofolate Reductase Inhibitor Antibacterial, Sulfonamide Antimicrobial Start: 10-26-2013 End: 04-09-2017 Sulfamethoxazole- Trimethoprim 1 TABLET tablet Discontinued 1 {tbl} PO TWICE A DAY October 26, 2013 12:00am April 09, 2017 2:56pm Start: 10-26-2013 End: 04-09-2017 take 1 tablet by mouth twice daily Sulfamethoxazole-Trimethoprim Discontinu ed 1 TABLET PO TWICE A DAY October 26, 2013 12:00am April 09, 2017 2:56pm tiZANidine 2 mg oral tablet (15 sources) Central alpha-2 Adrenergic Agonist Start: 11-30-2017 End: 06-09-2018 Tizanidine 2 MG tablet Discontinued 4 mg PO 1999November 30, 2017 12:00am June 09, 2018 11:59am Start: 11-30-2017 End: 06-09-2018 Tizanidine Discontinued 4 MG PO 1999November 30, 2017 12:00am June 09, 2018 11:59am traMADol hydrochloride 50 mg oral tablet (20 sources) Opioid Agonist Start: 05-14-2017 End: 11-08-2017 take 1 tablet by mouth every six hours as needed Tramadol 50 mg tablet Discontinued 0 PO EVERY 6 HOURS as needed for pain 40 May 14, 2017 12:00am November 08, 2017 3:15pm 1-2 po q6h prn pain, start with 1 initially. PO Q6H PRN Start: 09-01-2010 End: 11-29-2016 TRAMADOL HCL 50 MG TABS As n eeded TRAMADOL HCL [id number] Honey Casanova valsartan 160 mg oral tablet (6 sources) Angiotensin 2 Receptor Chris Start: 09-01-2010 End: 06-15-2011 take 1 tablet by mouth twice daily DIOVAN 160 MG TABS One tablet by mouth twice daily VALSARTAN [id number] Rayshawn Tejada Tab vitamin b 12 1 mg oral tablet (6 sources) Vitamin B12 Start: 09-01-2010 End: 11-29-2016 VITAMIN B-12 1000 MCG TABS IM as ordered CYANOCOBALAMIN [id number] Albert MCNAMARA zolpidem tartrate 10 mg oral tablet (6 sources) gamma-Aminobutyric Acid-ergic Agonist Start: 09-01-2010 End: 11-29-2016 take 1 tablet by mouth at bedtime AMBIEN 10 MG TABS One tablet by mouth at bedtime. ZOLPIDEM TARTRATE [id number] Honey Pinky Casanova Problems Active Problems Problem Classification Problem Date Documented Da te Episodic/Chronic Abdominal hernia (17 sources) Hiatal hernia; Translations: [Diaphragmatic hernia without obstruction or gangrene] Episodic Abdominal pain (15 sources) Abdominal pain; Translations: [Unspecified abdominal pain] 12-30-2021 Episodic Acute cerebrovascular disease (14 sources) Cerebrovascular accident; Translations: [Cerebral infarction, unspecified] 12-26-2021 Chronic Cardiac dysrhythmias (16 sources) Palpitations; Translations: [Palpitations] 12-26-2021 Episodic Cataract (14 sources) Cataract; Translations: [Unspecified cataract] 11-12-2017 Chronic Chronic kidney disease (11 sources) Chronic kidney disease stage 3A ; Translations: [Stage 3a chronic kidney disease] 12-26-2021 Chronic Diseases of white blood cells (3 sources) Leukocytosis; Translations: [Elevated white blood cell count, unspecified] Onset: 4 01-18-2024 Chronic Disorders of lipid metabolism (16 sources) Hyperlipidemia; Translations: [Hyperlipidemia, unspecified] Onset: 1 09-01-2010 Chronic Esophageal disorders (16 sources) Gastroesophageal reflux disease; Translations: [Gastro-esophageal reflux disease without esophagitis] Onset: 4 03-22-2022 Chronic Esophageal disorders (12 sources) Esophagitis; Translations: [Esophagitis] Episodic Essential hypertension (20 sources) Hypertensive disorder; Translations: [Essential (primary) hypertension] Onset: 1 09-01-2010 Chronic Gastritis and duodenitis (12 sources) Gastritis; Translations: [Gastritis, unspecified, without bleeding] Episodic Hypertension with complications and secondary hypertension (4 sources) Hypertensive emergency; Translations: [Hypertensive emergency] Onset: 4 01-18-2024 Chronic Nutritional deficiencies (10 sources) Disorder of vitamin B12; Translations: [Deficiency of other specified B group vitamins] 12-26-2021 Episodic Osteoarthritis (9 sources) Osteoarthritis of knee; Translations: [Osteoarthritis of joint of right shoulder region] 04-04-2013 Chronic Other and unspecified benign neoplasm (11 sources) Tubular adenoma of colon; Translations: [Benign neoplasm of colon, unspecified] 03-22-2022 Episodic Other and unspecified benign neoplasm (1 source) Benign neoplasm of colon, unspecified; Translations: [Benign neoplasm of colon] Episodic Other and unspecified benign neoplasm (10 sources) History of polyp of colon; Translations: [Personal history of colonic polyps] 03-22-2022 Episodic Other circulatory disease (2 sources) History of cerebrovascular accident; Translations: [Personal history of transient ischemic attack (TIA), and cerebral infarction without residual deficits] 01-31-2024 Episodic Other connective tissue disease (14 sources) History of total knee arthroplasty; Translations: [Presence of left artificial knee joint] 11-12-2017 Chronic Other gastrointestinal disorders (14 sources) Dysphagia; Translations: [Dysphagia, unspecified] 03-22-2022 Episodic Other gastrointestinal disorders (14 sources) Diarrhea; Translations: [Diarrhea, unspecified] 03-22-2022 Episodic Other gastrointestinal disorders (10 sources) Constipation alternates with diarrhea; Translations: [Other specified symptoms and signs involving the digestive system and abdomen] 03-22-2022 Episodic Other gastrointestinal disorders (10 sources) Constipation; Translations: [Constipation, unspecified] 03-22-2022 Episodic Other gastrointestinal disorders (4 sources) Other specified symptoms and signs involving the digestive system and abdomen; Translations: [Other symptoms involving digestive system] 03-22-2022 Episodic Other gastrointestinal disorders (2 sources) History of esophagitis; Translations: [Personal history of other diseases of the digestive system] 01-18-2024 Episodic Other gastrointestinal disorders (2 sources) History of gastritis; Translations: [Personal history of other diseases of the digestive system] 01-18-2024 Episodic Other injuries and conditions due to external causes (7 sources) Contusion; Translations: [Other injury of unspecified body region, initial encounter] 07-20-2022 Episodic Other injuries and conditions due to external causes (2 sources) Other injury of unspecified body region, initial encounter; Translations: [Contusion of unspecified site] 07-20-2022 Episodic Other lower respiratory disease (1 source) Solitary pulmonary nodule; Translations: [Solitary pulmonary nodule] Onset: Episodic Other nutritional; endocrine; and metabolic disorders (13 sources) Weight loss; Translations: [Abnormal weight loss] 03-22-2022 Episodic Other nutritional; endocrine; and metabolic disorders (1 source) Weight decreased; Translations: [Abnormal weight loss] 03-22-2022 Episodic Residual codes; unclassified (14 sources) Family history of cancer of colon; Translations: [Family history of malignant neoplasm of digestive organs] 05-02-2021 Episodic Residual codes; unclassified (3 sources) Family history of malignant neoplasm of digestive organs; Translations: [Family history of malignant neoplasm of gastrointestinal tract] Episodic Superficial injury; contusion (14 sources) Hematoma of right hip region; Translations: [Contusion of right hip, initial encounter] 11-12-2017 Episodic Thyroid disorders (1 source) Nontoxic single thyroid nodule; Translations: [Nontoxic single thyroid nodule] Onset: 5 Chronic Past or Other Problems Problem Classification Problem Date Documented Da te Episodic/Chronic Conditions associated with dizziness or vertigo (1 source) Dizziness and giddiness; Translations: [Dizziness and giddiness] Onset: 03-17-2024 Episodic Fluid and electrolyte disorders (3 sources) Hypokalemia; Translations: [Hypokalemia] Onset: 01-29-2024 01-18-2024 Episodic Fracture of lower limb (3 sources) Other fracture of upper and lower end of left fibula, initial encounter for closed fracture; Translations: [Other fracture of upper and lower end of left fibula, initial encounter for closed fracture] Onset: 01-31-2016 02-09-2016 Episodic Heart valve disorders (4 sources) Heart murmur; Translations: [Cardiac murmur, unspecified] Onset: 08-24-2023 07-05-2023 Episodic Nausea and vomiting (4 sources) Intractable nausea and vomiting; Translations: [Nausea with vomiting, unspecified] Onset: 01-29-2024 01-31-2024 Episodic Nonspecific chest pain (3 sources) Chest pain, unspecified; Translations: [Chest pain, unspecified] Onset: 09-01-2010 09-01-2010 Episodic Other circulatory disease (1 source) Personal history of transient ischemic attack (TIA), and cerebral infarction without residual deficits; Translations: [Personal history of transient ischemic attack (TIA), and cerebral infarction without residual deficits] Onset: 01-29-2024 Episodic Other connective tissue disease (3 sources) Pain in lower limb; Translations: [Pain in leg, unspecified] 03-21-2013 Episodic Other connective tissue disease (3 sources) Pain in right arm; Translations: [Pain in unspecified limb] 06-15-2011 Episodic Other connective tissue disease (3 sources) Calcific tendinitis of shoulder; Translations: [Calcific tendinitis of right shoulder] 08-17-2011 Episodic Other connective tissue disease (1 source) Pain in right forearm; Translations: [Pain in right forearm] Onset: 09-26-2023 Episodic Other diseases of kidney and ureters (3 sources) Kidney disease; Translations: [Disorder of kidney and ureter, unspecified] Onset: 09-01-2010 09-01-2010 Episodic Other eye disorders (1 source) Dry eye syndrome of bilateral lacrimal glands; Translations: [Dry eye syndrome of bilateral lacrimal glands] Onset: 03-15-2024 Episodic Other gastrointestinal disorders (1 source) Personal history of other diseases of the digestive system; Translations: [Personal history of other diseases of the digestive system] Onset: 01-29-2024 Episodic Other injuries and conditions due to external causes (3 sources) Laceration - injury; Translations: [Injury, unspecified] Onset: 11-29-2016 11-29-2016 Episodic Other non-traumatic joint disorders (3 sources) Knee pain; Translations: [Pain in unspecified knee] 04-04-2013 Episodic Other non-traumatic joint disorders (3 sources) Pain in unspecified shoulder; Translations: [Pain in unspecified shoulder] 08-17-2011 Episodic Other non-traumatic joint disorders (3 sources) Pain in left ankle and joints of left foot; Translations: [Pain in left ankle and joints of left foot] Onset: 01-31-2016 02-09-2016 Episodic Other screening for suspected conditions (not mental disorders or infectious disease) (6 sources) Abnormal result of cardiovascular function study, unspecified; Translations: [Protein level - finding] Onset: 09-01-2010 09-01-2010 Episodic Residual codes; unclassified (1 source) Chills (without fever); Translations: [Chills (without fever)] Onset: 07-18-2023 Episodic Skin and subcutaneous tissue infections (3 sources) Cellulitis of forearm; Translations: [Cellulitis of left upper limb] Onset: 11-29-2016 11-29-2016 Episodic Results Test Name Value Interpretation Reference Range Facility CBC W/Diff, Automatedon 05-14 PLT EST ADEQUATE Normal ADEQ [facility] Comment on above: Performed By: #### L 100.0100, L501.5425, L503.6620, L300.4310, L300.3900, L500.2500 #### [facility] [address] [place], [place], [id number] Comprehensive Metabolic Prof [facility] 06-09-2024 Albumin [Mass/Vol] 4.1 g/dL Normal 3.4-4.8 [facility] Comment on above: Performed By: #### L 100.0100, L501.5425, L503.6620, L300.4310, L300.3900, L500.2500 #### [facility] [address] [place], [address] Albumin/Globulin [Mass ratio] 1.7 {ratio} Normal 0.9-2.4 [facility] Comment on above: Performed By: #### L 100.0100, L501.5425, L503.6620, L300.4310, L300.3900, L500.2500 #### [facility] [address] [place], [address] ALK PHOS 79 U/L Normal 35-104 [facility] Comment on above: Performed By: #### L 100.0100, L501.5425, L503.6620, L300.4310, L300.3900, L500.2500 #### [facility] [address] [place], [address] ALT [Catalytic activity/Vol] 20 U/L Normal <=34 [facility] Comment on above: Performed By: #### L 100.0100, L501.5425, L503.6620, L300.4310, L300.3900, L500.2500 #### [facility] [address] [place], [address] AST [Catalytic activity/Vol] 30 U/L Normal <=31 [facility] Comment on above: Performed By: #### L 100.0100, L501.5425, L503.6620, L300.4310, L300.3900, L500.2500 #### [facility] [address] [place], [address] Bilirubin [Mass/Vol] 0.58 mg/dL Normal 0.00-1.30 [facility] Comment on above: Performed By: #### L 100.0100, L501.5425, L503.6620, L300.4310, L300.3900, L500.2500 #### [facility] [address] [place], [address] BUN/CRE 17.1 RATIO Normal 10-20 [facility] Comment on above: Performed By: #### L 100.0100, L501.5425, L503.6620, L300.4310, L300.3900, L500.2500 #### [facility] [address] [place], [address] Calcium [Mass/Vol] 11.4 mg/dL High 7.6-11.0 [facility] Comment on above: Performed By: #### L 100.0100, L501.5425, L503.6620, L300.4310, L300.3900, L500.2500 #### [facility] [address] [place], [address] Chloride [Moles/Vol] 103 mmol/L Normal 98-108 [facility] Comment on above: Performed By: #### L 100.0100, L501.5425, L503.6620, L300.4310, L300.3900, L500.2500 #### [facility] [address] [place], [address] CO2 [Moles/Vol] 26.6 mmol/L Normal 21.0-32.0 [facility] Comment on above: Performed By: #### L 100.0100, L501.5425, L503.6620, L300.4310, L300.3900, L500.2500 #### [facility] [address] [place], [address] Creatinine [Mass/Vol] 1.12 mg/dL Normal 0.70-1.20 [facility] Comment on above: Performed By: #### L 100.0100, L501.5425, L503.6620, L300.4310, L300.3900, L500.2500 #### [facility] [address] [place], [address] GAP 9 Normal 5-15 [facility] Comment on above: Performed By: #### L 100.0100, L501.5425, L503.6620, L300.4310, L300.3900, L500.2500 #### [facility] [address] [place], [address] GFR/1.73 sq M.predicted among non-blacks MDRD (S/P/Bld) [Vol rate/Area] 48 mL/min/{1.73_m2} Low >60 [facility] Comment on above: Result Comment: mL/m in/1.73m2 CKD-EPI Creatinine Equation (2020) Performed By: #### L 100.0100, L501.5425, L503.6620, L300.4310, L300.3900, L500.2500 #### [facility] [address] [place], [address] Globulin (S) [Mass/Vol] 2.4 g/dL Normal 2.2-4.2 [facility] Comment on above: Performed By: #### L 100.0100, L501.5425, L503.6620, L300.4310, L300.3900, L500.2500 #### [facility] [address] [place], [address] Glucose [Mass/Vol] 88 mg/dL Normal 70-99 [facility] Comment on above: Performed By: #### L 100.0100, L501.5425, L503.6620, L300.4310, L300.3900, L500.2500 #### [facility] [address] [place], [address] Potassium [Moles/Vol] 4.3 mmol/L Normal 3.3-5.1 [facility] Comment on above: Performed By: #### L 100.0100, L501.5425, L503.6620, L300.4310, L300.3900, L500.2500 #### [facility] [address] [place], [address] Sodium [Moles/Vol] 138 mmol/L Normal 133-145 [facility] Comment on above: Performed By: #### L 100.0100, L501.5425, L503.6620, L300.4310, L300.3900, L500.2500 #### [facility] [address] [place], [address] T PROT 6.5 g/dL Normal 5.9-8.4 [facility] Comment on above: Performed By: #### L 100.0100, L501.5425, L503.6620, L300.4310, L300.3900, L500.2500 #### [facility] [address] [place], [address] Urea nitrogen [Mass/Vol] 19 mg/dL Normal 4-19 [facility] Comment on above: Performed By: #### L 100.0100, L501.5425, L503.6620, L300.4310, L300.3900, L500.2500 #### [facility] [address] [place], [address] Thyroid Stim Hormone (TSH)on 06-09-2024 TSH 1.440 uIU/mL Normal 0.300-4.200 [facility] Comment on above: Performed By: #### L 100.0100, L501.5425, L503.6620, L300.4310, L300.3900, L500.2500 #### [facility] [address] [place], [address] Vitamin D,25 Hydroxyon 06-09 Vitamin D 25-OH 38.4 ng/mL Normal 30-100 [facility] Comment on above: Result Comment: Cristina min D Status Deficiency: <20 ng/mL (50nmol/L) Insufficiency: 20-30 ng/mL (50-75 nmol/L) Sufficiency: 30-100 ng/mL (75-250 nmol/L) Toxicity: >100 ng/mL (>250 nmol/L) Performed By: #### L 100.0100, L501.5425, L503.6680, L300.2010, L300.4060, L500.2500 #### [facility] [address], [address] Special Stain Group IIon Special Stain Group II ----- ---- Patient Age/Sex Location Account Attending Physician ---- CARLEY SPRAGUE 84/F LABSPEC [id number] Dr. Luan Paul MD ---- Specimen: [id number] Received: 06/03/24 Status: ISMAEL Suresh Num: [id number] Spec Type: Fluid Subm Dr: Dr. Luan Paul MD HEADER OPERATION: Fine needle aspiration of right thyroid nodule PRE-OP DIAGNOSIS: Right thyroid nodule TISSUE SUBMITTED: A- Right mid thyroid nodule, B- Left thyroid nodule ---- DIAGNOSIS CYTOLOGY A. Right mid thyroid nodule, FNA: * No malignant cells are identified * Benign follicular cells (benign follicular nodule) B. Left thyroid nodule, FNA * No malignant cells are identified * Benign follicular cells (benign follicular nodule) Preliminary studies/adequacy: A1-A2 mostly blood B1-B2 Some follicular cells By Dr. Woody 06/03/24 CYTOLOGY STUDY Slides are reviewed. CYTOLOGY GROSS A. Received is 30 ml of cytolyt with particles and 3 PAPS and 2 DQ fluid labeled with the patient's name and and designated per the requisition as Right mid thyroid nodule. Submitted for cytology and cell block preparation. B. Received is 30 ml of fluid cytolyt with particles and 3 PAPS and 2 DQ labeled with the patient's name and and designated per the requisition as Left thyroid nodule. Submitted for cytology and cell block preparation. 06/03/2024 CPT: 27074c8 Signed (signature on file) Dr. Rachel Woody DO 06/03/24 1321 ---- Normal [facility] Comment on above: Performed By: #### L 100.0100, L501.5425, L503.6620, L300.4310, L300.3900, L500.2500 #### [facility] [address] [place], [address] Surgery Visit Reporton 06-03 Surgery Visit Report [facility] [address] [place] [address] OFFICE VISIT Date of Service: 06/03/24 MR#: [id number] Acct: [id number] Name: CARLEY SPRAGUE Rep #: [id number] : 1940 Provider: Dr. Luan goldberg MD Age/Sex: 84/F Location: [facility] Status: Signed Intake Vital Signs 02/25/24 10:57 06/03/24 08:24 Height 5 ft 1.5 in 5 ft 2 in Weight: 160 lb BMI 29.2 BP 160/92 H Blood Pressure Location Rt brachial Position Sitting Respiration 18 Pulse 72 Pulse Source Monitor Temp 97.2 F L Temp Source Temporal Pulse Oximetry (%) 97 Oxygen Delivery Method room air Intake Visit Reasons: THYROID NODULE Chief Complaint: thyroid nodule Is patient in pain?: No Allergies adhesive tape Allergy (Verified 06/03/24 08:25) Other valsartan Allergy (Verified 06/03/24 08:25) Rash amlodipine Adverse Reaction (Verified 06/03/24 08:25) Other enalaprilat (From Vasotec) Adverse Reaction (Verified 06/03/24 08:25) Other minoxidil Adverse Reaction (Verified 06/03/24 08:25) Other risedronate sodium (From Actonel) Adverse Reaction (Verified 06/03/24 08:25) Other Medications ???Medication ???Instructions ???Recorded ???Confirmed ???Type acetaminophen 325 mg tablet 650 mg (2 x 325 mg) PO Q6H PRN PRN 11/30/17 06/03/24 Rx Mild Pain (0-3/10)/Headache loratadine 10 mg tablet 10 mg PO DAILY PRN ALLERGIES 11/3006/03/24 Rx losartan 100 mg tablet 100 mg PO DAILY heart #30 tabs 06/03/24 Rx paroxetine HCl 20 mg tablet 20 mg PO DAILY mood #30 tabs 11/3006/03/24 Rx albuterol sulfate 90 mcg/actuation 1 puff inhalation Q6H PRN SOB 06/03/24 History aerosol inhaler cholecalciferol (vitamin D3) 25 25 mcg PO DAILY supplement 2 06/03/24 History mcg (1,000 unit) capsule (Vitamin D3) hydrochlorothiazide 25 mg tablet 25 mg PO DAILY blood pressure 07/1306/03/24 History multivitamin 1 tab PO DAILY SUPPLEMENT 12/26/21 06/03/24 History dexlansoprazole 60 mg 60 mg PO BID reflux #120 caps 12/1306/03/24 Rx capsule,biphase delayed release (Dexilant) clonidine 0.3 mg/24 hr weekly 1 patch transdermal QWEEK 07/05/23 06/03/24 History transdermal patch clonidine HCl 0.1 mg tablet 0.1 mg PO DAILY PRN high blood 06/03/24 History pressure inclisiran 284 mg/1.5 mL 284 mg subcut [id number] cholesterol 07/05/23 06/03/24 History subcutaneous syringe linaclotide 72 mcg capsule 72 mcg PO DAILY PRN constiopation 07/05/23 06/03/24 History (Linzess) carvedilol 6.25 mg tablet (Coreg) 6.25 mg PO BID #60 tabs 02/25/24 06/03/24 Rx Have you fallen in the past year?: Yes PFSH Medical History (Updated 06/03/24 @ 15:[address] 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 Tubular adenoma of colon Esophagitis Gastritis Wears contact lenses Wears glasses Fibromyalgia Depression History of steroid therapy Ambulates with cane Arthritis History of renal disease Anemia High cholesterol Back pain Difficulty swallowing History of hiatal hernia History of IBS History of diverticulitis Hx of mitral valve prolapse Gastric reflux Non-smoker Shortness of breath on exertion Leg cramps History of edema Hypertension Cardiology follow-up encounter History of echocardiogram History of stress test Stroke/cerebrovascular accident Hiatal hernia Family history of colon cancer Weight loss Cataract Surgical History History of carpal tunnel surgery of right wrist History of partial knee replacement History of cardiac catheterization History of total knee arthroplasty History of hysterectomy History of cholecystectomy S/P sclerotherapy of varicose veins H/O dilation and curettage History of tonsillectomy H/O adenoidectomy Family History Mother Cancer pancreatic Father Colon cancer Grandmother Breast cancer Social History Smoking Status: Never smoker alcohol intake: current alcohol intake frequency: holidays/special occasions only substance use type: does not use caffeine: Yes Type: coffee Number of servings: 1 HPI HPI HPI: Patient is a 84-year-old female who presents for evaluation of thyroid nodularity. They are referred for surgical consultation from Dr. March. This was discovered incidentally during a recent workup for vertigo. Th (more content not included)... Normal [facility] Thyroid Uptake Single or Mul ton 04-23-2024 Thyroid Uptake Single or Mult [facility] [address] [place], [place] [id number] Thyroid Uptake Single or Mult MR#: [id number] Acct: [id number] Name: CARLEY SPRAGUE Rep #: [id number] : 1940 F 83 From: Mendoza cadet MD PCP: Dr. Brandon March MD Status: REG CLI Study: Thyroid Uptake Single or Mult Date of Exam: 0 04/23/24 Exam# [id number] Ordering Dr: Brandon March MD PROCEDURE: THYROID UPTAKE SINGLE OR MULT REASON FOR EXAM: NONTOXIC SINGLE THYROID NODULE COMPARISON: None. TECHNIQUE: Anterior and posterior imaging of the thyroid gland. RADIOPHARMACEUTICAL: 317 uCi of iodine 123 orally on . FINDINGS: Thyroid bed: Activity seen in the right lobe. Decreased activity in the left lobe of the thyroid. Uptake at 4 hours is 4.3%. Uptake at 24 hours is 7.2% this is in keeping with hypothyroidism. NM/Thyroid Uptake Single or Mult IMPRESSION: Decreased activity in the left lobe. Reading Location: [id number] CC: Dr. Brandon March MD Patient Representative: Signed Normal [facility] Thyroidon 03-27-2024 Thyroid [facility] [address] [place] [address] Thyroid MR#: [id number] Acct: [id number] Name: CARLEY SPRAGUE Rep #: [id number] : 1940 F 83 From: Mendoza cadet MD PCP: Dr. Brandon March MD Status: REG CLI Study: Thyroid Date of Exam: 03/27/24 Exam# [id number] Ordering Dr: Brandon March MD PROCEDURE: THYROID REASON FOR EXAM: Thyroid nodules. TECHNIQUE: Thyroid ultrasound COMPARISON: None. FINDINGS: Right thyroid lobe measures 4.7 cm x 2.5 cm x 1.9 cm. Left thyroid lobe measures 4.2 cm x 1.6 cm x 1.8 cm. Isthmus thickness is12 mm. Thyroid Size: Enlarged isthmus. Background Echotexture: Normal Thyroid Nodules: There is a 1.5 cm x 1.6 cm x 1 0.1 cm hypoechoic solid nodule in the midportion of the right lobe. Increased vascularity is seen. Biopsy recommended. There is also evidence of a 5 mm x 4 mm x 3 mm hypoechoic solid nodule in the upper pole. Adjacent to this, there is a 1.5 cm x 1.6 cm x 1.1 cm nodule. There is also evidence of a 1.5 cm x 1.5 cm x 1.4 cm nodule in the midportion of the left lobe of the thyroid. A similar-appearing nodule measuring 1.1 cm x 1.2 cm x 1 cm in the upper pole is seen. US/Thyroid IMPRESSION: Bilateral thyroid nodules as described. Correlation with nuclear medicine thyroid scan and uptake recommended prior to biopsy. Reading Location: [id number] CC: Dr. Brandon March MD Patient Representative: Signed Normal [facility] PT D/C Summary (1)on 025 PT D/C Summary (1) [facility] [place] [address] / REHABILITATION SERVICES DISCHARGE SUMMARY MR#: [id number] Acct: [id number] Name: CARLEY SPRAGUE Rep #: [id number] : 1940 83 From: Jared GEIGERT, OCS, CSCS Referring Dr.: Dr. Brandon March MD Status: REG RCR Insurance: MEDICARE PART A B [employer] Discharge Summary D/C summary: It has been my pleasure to treat CARLEY SPRAGUE referred by Dr. Brandon March MD, with the diagnosis of vertigo for a total of 8 visit(s). Discharge Date: 03/14/24 Please see the following information for a summary of their discharge status. Subjective Subjective: Been doing pretty good last coupl eweeeks. Some good daysand some bad days. bad days are unsteady and sometimes spins when stands up but not lying down or sitting. Blood pressure being worked on by Dr. guzman. Feels like unsteadyness is about 1 hour after taking BP meds. Dr. Guzman knows. No falls , using walker stick , Knows she needs to stand for a few minutes before ambulating. Has walker to use at home. Had catscan adn having US for nodule on thyroid. Life is pretty normal activity lopez at home. Started driving and it was good. Overall Improvement % Improvement: 70 Objective Objective/Function: - HD B Walking well today but has to take a second when she stands up and if she has been sitting for a while and stands. Ready to be done with PT adn will continue via HEP. Goals Goal 1:: FGA adn walking feel back to normal. Goal Progress: Goal Met Goal 2:: Pt feel dizzyness 99% abolished. Goal Progress: 70% Goal 3:: DHI score 10 or better. Goal Progress: Progressing Plan Plan: d/c to HEP D/C Information Discharge Comments: Mostly dizzy after takes BP meds otherwis doing well. d/c sentence: If there are questions or concerns regarding this patient's physical therapy, please feel free to call me at [phone]. Thank you for the referral of this patient. Sincerely, Jared Arriaga DPT, OCS, CSCS Balance/Gait/Functiona l tests Balance/Special Test Scores Functional Gait Assessment Score: 25 % Disability: 16.6700 Dizziness Score: 10 TUG Test Time Seconds: 13 30 Second Chair Rise Test Seconds: 12 Improvement % Improvement: 70 03/14/24 1057 CC: Dr. Cal Billings MD; Dr. Brandon March MD EBG Signed Normal [facility] CREATININE FINGERSTICKon CREATININE WB < 1.0 Normal 0.55-1.02 [facility] Comment on above: Performed By: #### L 9100.0200 #### [facility] [address] [place], [address] GFR/1.73 sq M.predicted among non-blacks MDRD (S/P/Bld) [Vol rate/Area] 60.0000 mL/min/{1.73_m2} Normal >60 [facility] Comment on above: Performed By: #### L 9100.0200 #### [facility] [address] [place], [address] Chest WITH Contraston 2024 Chest WITH Contrast [facility] Imaging Services [address] [place] [address] Chest WITH Contrast MR#: [id number] Acct: [id number] Name: CARLEY SPRAGUE Rep #: [id number] : 1940 F 83 From: Denny Flores DO PCP: Dr. Brandon March MD Status: REG CLI Study: Chest WITH Contrast Date of Exam: 03/12/24 Exam# [id number] Ordering Dr: Brandon March MD PROCEDURE: CHEST WITH CONTRAST REASON FOR EXAM: Solitary pulmonary nodule TECHNIQUE: Axial CT images of the chest performed with IV contrast enhancement. Sagittal and coronal reconstructed images were performed. CONTRAST: 98 mL of Isovue-300 COMPARISON: 01/18/2024 FINDINGS: Heterogeneous thyroid gland, with a few thyroid nodules, largest on the right measures 1.0 cm. No thoracic aortic aneurysm or dissection is seen. Minimal vascular calcifications within the aortic arch. Pulmonary artery vasculature, as visualized, appears within normal limits. Mediastinum: No mediastinal lymphadenopathy. Heart: Mild cardiomegaly. No pericardial effusion. Lungs and Airways: The lungs are well aerated. Minimal peripheral fibrotic changes, mostly within the lower lobes. Stable appearing 5 mm pleural-based pulmonary nodule within the right lower lobe, medially. Remaining lung markings otherwise appears clear. Pleura: No pleural effusion. No pneumothorax. Bones: The osseous thorax appears intact. Spondylotic changes most prominent of the lower thoracic spine. Visualized portions of the liver and spleen appear intact. Prior cholecystectomy. No adrenal masses are seen. CT/Chest WITH Contrast IMPRESSION: 1. Stable appearing pleural-based pulmonary nodule within the right lower lobe measuring approximately 5 mm. 2. No additional pulmonary nodules are identified. 3. Heterogeneous thyroid gland, with a few thyroid nodules, largest on the right measures up to 1.0 cm. If clinically warranted, consider thyroid ultrasound. 4. Mild cardiomegaly. One or more dose reduction techniques were used (e.g., Automated exposure control, adjustment of the mA and/or kV according to patient size, use of iterative reconstruction technique). Reading Location[facility] CC: Dr. Brandon March MD Patient Representative: Signed Normal [facility] Creatinine measurement at dsideOrdered By: Brandon March on 03-12-2024 Bedside Creatinine < 1.0 mg/dL 0.55-1.02 [facility] EGFROrdered By: Brandon March on 03-12-2024 GFR/1.73 sq M.predicted among non-blacks MDRD (S/P/Bld) [Vol rate/Area] 60.0000 mL/min/{1.73_m2} >60 [facility] Cardiology Visit Reporton Cardiology Visit Report [facility] [address] [place] [address]. [address] [place], [place] [address] OFFICE VISIT Date of Service: 02/25/24 MR#: [id number] Acct: [id number] Name: CARLEY SPRAGUE Rep #: [id number] : 1940 Provider: Dr. Luan matos MD Age/Sex: 83/F Location: [facility] Status: Signed HPI HPI History of Present Illness Details: Patient is 83-year-old white female who comes in today for monitoring her cardiovascular status after discharge from the hospital at [facility] where she was there January 17 through January 23, 2024. The patient was hospitalized for hypertensive emergency. She presented with nausea and vomiting and was felt to have vertigo. She is unable to keep her hypertensive meds down she has been had difficult to control blood pressure for some time. Patient was finally controlled with a combination of topical clonidine patches supplemental clonidine orally beta-chris and losartan. Since discharge her blood pressures been fairly well-controlled but she had a couple episodes where it was up in the 1 50???160 range. She is taking extra oral clonidine 7 out of the last 10 days. The patient ran out of her metoprolol 3 days ago. Patient denies any syncope or near syncope she continues to have dizzy spells related to her vertigo. She denies any nausea and vomiting. The patient denies any chest pain. The patient does complain of insomnia and describes this as she just cannot stop her brain from thinking of things when she lays down to go to sleep. She and her primary care physician have tried multiple interventions but none with any significant success. She did have an echocardiogram January 18, 2024 EF was 60-65% with grade 2 diastolic dysfunction there was no significant change from an old echocardiogram. The patient has a history of minimal coronary disease by cardiac cath 2010. 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: No Accompanied by: in waiting room Is patient in pain?: No Allergies adhesive tape Allergy (Verified 02/25/24 10:57) Other valsartan Allergy (Verified 02/25/24 10:57) Rash amlodipine Adverse Reaction (Verified 02/25/24 10:57) Other enalaprilat (From Vasotec) Adverse Reaction (Verified 02/25/24 10:57) Other minoxidil Adverse Reaction (Verified 02/25/24 10:57) Other risedronate sodium (From Actonel) Adverse Reaction (Verified 02/25/24 10:57) Other Medications ???Medication ???Instructions ???Recorded ???Confirmed ???Type acetaminophen 325 mg tablet 650 mg (2 x 325 mg) PO Q6H PRN PRN 11/30/17 02/25/24 Rx Mild Pain (0-3/10)/Headache loratadine 10 mg tablet 10 mg PO DAILY PRN ALLERGIES 11/30/17 02/25/24 Rx losartan 100 mg tablet 100 mg PO DAILY heart #30 tabs 11/30/17 02/25/24 Rx paroxetine HCl 20 mg tablet 20 mg PO DAILY mood #30 tabs 11/30/17 02/25/24 Rx albuterol sulfate 90 mcg/actuation 1 puff inhalation Q6H PRN SOB 07/25/21 02/25/24 History aerosol inhaler cholecalciferol (vitamin D3) 25 25 mcg PO DAILY supplement 07/25/21 02/25/24 History mcg (1,000 unit) capsule (Vitamin D3) hydrochlorothiazide 25 mg tablet 25 mg PO DAILY blood pressure 07/25/21 02/25/24 History multivitamin 1 tab PO DAILY SUPPLEMENT 12/26/21 02/25/24 History dexlansoprazole 60 mg 60 mg PO BID reflux #120 caps 12/30/21 02/25/24 Rx capsule,biphase delayed release (Dexilant) clonidine 0.3 mg/24 hr weekly 1 patch transdermal QWEEK 07/05/23 02/25/24 History transdermal patch clonidine HCl 0.1 mg tablet 0.1 mg PO DAILY PRN high blood 07/05/23 02/25/24 History pressure inclisiran 284 mg/1.5 mL 284 mg subcut [id number] cholesterol 07/05/23 02/25/24 History subcutaneous syringe linaclotide 72 mcg capsule 72 mcg PO DAILY PRN constiopation 07/05/23 02/25/24 History (Linzess) carvedilol 6.25 mg tablet (Coreg) 6.25 mg PO BID #60 tabs 02/25/24 02/25/24 Rx Ejection fraction %: 60 Have you fallen in the past year?: No PFSH Medical History History of CVA (cerebrovascular accident) Personal history of colonic polyps Disorder of vitamin B12 Hyperlipidemia Essential (primary) hypertension Chronic kidney disease, stage 3a 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 Normal [facility] Inital Evaluation (1) - PTon 02-01-2024 Inital Evaluation (1) - PT [facility] [address] [place] [address] / REHABILITATION SERVICES INITIAL EVALUATION MR#: [id number] Acct: [id number] Name: CARLEY SPRAGUE Rep #: [id number] : 1940 83 From: Jared Arriaga DPT, OCS, CSCS Referring Dr.: Dr. Brandon March MD Status: REG RCR Insurance: MEDICARE PART A B [employer] Patient's Visit Information Visit Information Visit Information: CARLEY SPRAGUE is a 83 year old F referred to Physical Therapy by Dr. Brandon March MD with a diagnosis of vertigo. Date of Evaluation: 02/01/24 Physical Therapist: Jared Arriaga DPT, OCS, CSCS Visit Plan Frequency: 2x /Week Duration: 4-6 Weeks Plan: 2x/week for 4-6 as needed for... IE HEP VOR H 60 sec, head turns 10x, head nods 10x all 6x/day with full recovery, also use wh walker 100%. treat with progression of VOR home exercises and head movements as well as dynamic balance training with head movements and VOR to tolerance. Subjective Subjective: 2 weeks ago at 6pm started spinning out of nowhere. Was turning to the left at the time. Spun. Stumbled back to chair and vomitted. Dizzyness lasted all night and blood pressure was up. Squad took her to hospital and had CATSCAN head and abdomen. Normal. EKG was OK. Spinning all evening if moved head. Sent to PCU and had MRI of head and it was OK. Next morning still dizzy if turned head fast. In hospital 5 days and treated with blood pressure meds. Gradually better over 5 days. Out of hospital last Sunday and doing not terrible at home if she moves slow. is still unsteady. if turns head left fast will spin a little bit for a few seconds. unsteady. Live with hubby in two stories with rail and needs assist for anxiousness. basic ADLs I, supervises on steps, uses wh walker at home(cane to PT today) Hobbies: knitting and sewing but not doing them 50% better since leaving hospital. Objective Objective: Walks into PT unsteady with cane R UE needing my arm, has wh walker at home that she knows she should be using. Trasfners chair I without UE. FGa without AD today. UE adn cervical AROm WNL and symmetrical but hesitant to move head especially L. - B hallpike judd and - roll test. Oculomotor: - skew eye deviation - ocular tilt + R head thrust no nystagmus with gaze L but slightly noticeable R. Pursuit and saccades are slow and asymptomatic.VOR H 60 seconds dizzy for 15 seconds VOR H 60 seconds is symtpomatic and eyes off with head R. Symptoms last 20 seconds. Balance/Special Test Scores Functional Gait Assessment Score: 18 % Disability: 40.0000 Dizziness Score: 54 Goals Goal 1:: 2430 FGA adn walking feel back to normal. Goal Time Frame: 4-6 Weeks Goal 2:: Pt feel dizzyness 99% abolished. Goal Time Frame: 4-6 Weeks Goal 3:: DHI score 10 or better. Goal Time Frame: 4-6 Weeks Rehabilitation Potential Physical Therapy Diagnosis: unsteadyness and dizzyness limiting function. Rehabilitation Potential: Good Anticipated Interventions Patient/Client Instruction: Educate patient on: Condition and Plan of Care For the Purpose of:: To increase tolerance to activity/condition/pos ition and To improve gait and locomotor functions Therapeutic Exercise to Include: Balance training Comment: vestibulr For the Purpose of:: To increase tolerance to activity/condition/pos ition and To improve gait and locomotor functions Text: Thank you for the opportunity to evaluate your patient. For Medicare and Medicare HMO plans, please review the plan of care and approve it. It will need to be FAXED BACK to us at [phone] for Medicare purposes. For Medicare only, by signing this I certify the plan of care. Please let me know if there are questions or concerns regarding this plan of care. Physician Signature: Date:__ 02/01/24 1032 CC: Dr. Cal Billings MD; Dr. Brandon March MD EBG Signed Normal [facility] Absolute neutrophil countOrd ered By: Cal Billings on 01-23-2024 Neutrophils (Bld) [#/Vol] 5.8 10*3/uL 2.0-7.7 [facility] Basic Metabolic Profile (BMP )on 01-23-2024 BUN/CRE 20.3 RATIO High 12-01 [facility] Comment on above: Performed By: #### L 100.0100, L501.5425, L503.6620, L300.4310, L300.3900, L500.2500 #### [facility] [address] [place], [address] CA,Total 10.5 mg/dL High 8.5-10.1 [facility] Comment on above: Performed By: #### L 100.0100, L501.5425, L503.6620, L300.4310, L300.3900, L500.2500 #### [facility] [address] [place], [address] Chloride [Moles/Vol] 108 mmol/L High 98-107 [facility] Comment on above: Performed By: #### L 100.0100, L501.5425, L503.6620, L300.4310, L300.3900, L500.2500 #### [facility] [address] [place], [address] CO2 [Moles/Vol] 27.0 mmol/L Normal 21.0-32.0 [facility] Comment on above: Performed By: #### L 100.0100, L501.5425, L503.6620, L300.4310, L300.3900, L500.2500 #### [facility] [address] [place], [address] Creatinine [Mass/Vol] 1.48 mg/dL High 0.55-1.02 [facility] Comment on above: Result Comment: The validity of the calculated GFR GFRAA in patients over 70 years has not been determined. Clinical correlation is essential. Performed By: #### L 100.0100, L501.5425, L503.6620, L300.4310, L300.3900, L500.2500 #### [facility] [address] [place], [address] ECRCL 26.27 ml/min Normal [facility] Comment on above: Performed By: #### L 100.0100, L501.5425, L503.6620, L300.4310, L300.3900, L500.2500 #### [facility] [address] [place], [address] EST GFR - AA 43 mL/min Low >60 [facility] Comment on above: Result Comment: Afri can Haitian GFR Calc Performed By: #### L 100.0100, L501.5425, L503.6620, L300.4310, L300.3900, L500.2500 #### [facility] [address] [place], [address] GAP 7 Normal 5-15 [facility] Comment on above: Performed By: #### L 100.0100, L501.5425, L503.6620, L300.4310, L300.3900, L500.2500 #### [facility] [address] [place], [address] GFR/1.73 sq M.predicted among non-blacks MDRD (S/P/Bld) [Vol rate/Area] 36 mL/min/{1.73_m2} Low >60 [facility] Comment on above: Result Comment: Non- GFR Calc Performed By: #### L 100.0100, L501.5425, L503.6620, L300.4310, L300.3900, L500.2500 #### [facility] [address] [place], [address] Glucose [Mass/Vol] 115 mg/dL High 74-106 [facility] Comment on above: Result Comment: Fast ing Glucose result from 100 to 125 mg/dL suggests IMPAIRED HOMEOSTASIS per A.D.A. criteria. Performed By: #### L 100.0100, L501.5425, L503.6620, L300.4310, L300.3900, L500.2500 #### [facility] [address] [place], [address] Potassium [Moles/Vol] 3.5 mmol/L Normal 3.5-5.1 [facility] Comment on above: Performed By: #### L 100.0100, L501.5425, L503.6620, L300.4310, L300.3900, L500.2500 #### [facility] [address] [place], [address] Sodium [Moles/Vol] 142 mmol/L Normal 136-145 [facility] Comment on above: Performed By: #### L 100.0100, L501.5425, L503.6620, L300.4310, L300.3900, L500.2500 #### [facility] [address] [place], [address] Urea nitrogen [Mass/Vol] 30 mg/dL High 7-18 [facility] Comment on above: Performed By: #### L 100.0100, L501.5425, L503.6620, L300.4310, L300.3900, L500.2500 #### [facility] [address] [place], [address] Basophil percentageOrdered B y: Cal Knowlessharmaine on 01-23-2024 Basophils/100 WBC (Bld) 0.7 % 0-1 [facility] Blood urea nitrogen (BUN)/cr eatinine ratioOrdered By: Cal Awa on 01-23-2024 Urea nitrogen/Creatinine [Mass ratio] 20.3 mg/mg High - [facility] CBC W/Diff, Automatedon 01-12-2023 Absolute Lymph 3.72 X10 3/uL Normal 0.83-4.51 [facility] Comment on above: Performed By: #### L 100.0100, L501.5425, L503.6620, L300.4310, L300.3900, L500.2500 #### [facility] [address] [place], [address] Absolute Neut 5.8 X10 3/uL Normal 2.0-7.7 [facility] Comment on above: Performed By: #### L 100.0100, L501.5425, L503.6620, L300.4310, L300.3900, L500.2500 #### [facility] [address] [place], [address] Basophils/100 WBC (Bld) 0.7 % Normal 0-1 [facility] Comment on above: Performed By: #### L 100.0100, L501.5425, L503.6620, L300.4310, L300.3900, L500.2500 #### [facility] [address] [place], [address] Eosinophils/100 WBC (Bld) 2.7 % Normal 0-5 [facility] Comment on above: Performed By: #### L 100.0100, L501.5425, L503.6620, L300.4310, L300.3900, L500.2500 #### [facility] [address] [place], [address] Erythrocyte distribution width (RBC) [Ratio] 12.3 % Normal 11.6-14.6 [facility] Comment on above: Performed By: #### L 100.0100, L501.5425, L503.6620, L300.4310, L300.3900, L500.2500 #### [facility] [address] [place], [address] Hematocrit (Bld) [Volume fraction] 42.3 % Normal 37-47 [facility] Comment on above: Performed By: #### L 100.0100, L501.5425, L503.6620, L300.4310, L300.3900, L500.2500 #### [facility] [address] [place], [address] Hemoglobin (Bld) [Mass/Vol] 14.0 g/dL Normal 12.0-15.0 [facility] Comment on above: Performed By: #### L 100.0100, L501.5425, L503.6620, L300.4310, L300.3900, L500.2500 #### [facility] [address] [place], [address] IG% 0.400 Normal 0.0-0.9 [facility] Comment on above: Result Comment: IG% - Immature Granulocytes (promyelocytes, myelocytes and metamyelocytes) > 1% indicates that a LEFT SHIFT is Present. Performed By: #### L 100.0100, L501.5425, L503.6620, L300.4310, L300.3900, L500.2500 #### [facility] [address] [place], [address] Lymphocytes/100 WBC (Bld) 34.1 % Normal 19-41 [facility] Comment on above: Performed By: #### L 100.0100, L501.5425, L503.6620, L300.4310, L300.3900, L500.2500 #### [facility] [address] [place], [address] MCH (RBC) [Entitic mass] 30.6 pg Normal 27.0-32.0 [facility] Comment on above: Performed By: #### L 100.0100, L501.5425, L503.6620, L300.4310, L300.3900, L500.2500 #### [facility] [address] [place], [address] MCHC (RBC) [Mass/Vol] 33.1 g/dL Normal 32-36 [facility] Comment on above: Performed By: #### L 100.0100, L501.5425, L503.6620, L300.4310, L300.3900, L500.2500 #### [facility] [address] [place], [address] MCV (RBC) [Entitic vol] 92.4 fL Normal 81-99 [facility] Comment on above: Performed By: #### L 100.0100, L501.5425, L503.6620, L300.4310, L300.3900, L500.2500 #### [facility] [address] [place], [address] Monocytes/100 WBC (Bld) 9.0 % Normal 0-10 [facility] Comment on above: Performed By: #### L 100.0100, L501.5425, L503.6620, L300.4310, L300.3900, L500.2500 #### [facility] [address] [place], [address] Neutrophils/100 WBC (Bld) 53.1 % Normal 47-70 [facility] Comment on above: Performed By: #### L 100.0100, L501.5425, L503.6620, L300.4310, L300.3900, L500.2500 #### [facility] [address] [place], [address] Nucleated RBC (Bld) [#/Vol] 0 10*3/uL Normal 0-5 [facility] Comment on above: Performed By: #### L 100.0100, L501.5425, L503.6620, L300.4310, L300.3900, L500.2500 #### [facility] [address] [place], [address] Platelet mean volume (Bld) [Entitic vol] 9.8 fL Normal 6.2-12.0 [facility] Comment on above: Performed By: #### L 100.0100, L501.5425, L503.6620, L300.4310, L300.3900, L500.2500 #### [facility] [address] [place], [address] Platelets (Bld) [#/Vol] 288 10*3/uL Normal 150-450 [facility] Comment on above: Performed By: #### L 100.0100, L501.5425, L503.6620, L300.4310, L300.3900, L500.2500 #### [facility] [address] [place], [address] RBC (Bld) [#/Vol] 4.58 10*6/uL Normal 4.2-5.4 [facility] Comment on above: Performed By: #### L 100.0100, L501.5425, L503.6620, L300.4310, L300.3900, L500.2500 #### [facility] [address] [place], [address] RDW SD 41.7 fl Normal 35.1-43.9 [facility] Comment on above: Performed By: #### L 100.0100, L501.5425, L503.6620, L300.4310, L300.3900, L500.2500 #### [facility] [address] [place], [address] WBC (Bld) [#/Vol] 10.9 10*3/uL Normal 4.4-11.0 [facility] Comment on above: Performed By: #### L 100.0100, L501.5425, L503.6620, L300.4310, L300.3900, L500.2500 #### [facility] [address] [facility] [place], [place], [address] Carbon dioxide measurementOr dered By: Cal Billings on 01-23-2024 CO2 [Moles/Vol] 27.0 mmol/L 21.0-32.0 [facility] Chloride measurementOrdered By: Cal Billings on 01-23-2024 Chloride [Moles/Vol] 108 mmol/L High 98-107 [facility] Discharge Instructionon 01-12 Discharge Instruction [facility] Medical Records Department [address] [place] [address] Instructions for Home/Discharge Instructions 01/23/24 1027 MR#: [id number] Acct: [id number] Name: CARLEY SPRAGUE Rep #: [id number] : 1940 83 From: Cal Billings MD PCP: Dr. Brandon March MD Status:ADM IN Discharge Instructions Diet Discharge Diet: Low fat / Low cholesterol DC O2, CPAP, BIPAP needs Additional Home O2 Discharge instructions: No Dressing / Incision Discharge Activity: Return to Normal Activity Dressing / Incision Call your doctor if you observe: Fever of 101 or Higher, Shortness of breath, Dizziness, Fainting spells, Swelling in the ankles, Chest pain and Increased palpitations (irregular heartbeat) Follow Up Care Test Results: Test results from this visit will be discussed in further detail at your follow-up appointment, if applicable. Discharge Plan Admission Admit Date/Time: 01/18/24 22:57 Attending Provider: Cal Billings Primary Care Provider: Brandon March [employer] Providers: Kal Wright; Linda Lee; Bárbara Sandoval; Moisés Bartlett; Bennie Landrum; Se Ellis; Luan Guzman; Ronny Wilson; Kevin Nesbitt; Arthur Hernandez; Son Garrido NP; Jazmyn Cabrera; Macario Allen Instructions Additional Instructions / Restrictions: Take MiraLAX as needed for constipation. Follow-up with your PCP in 3 to 5 days to monitor your lab work and your blood pressures to make any medication adjustments as necessary Discharge Orders/Prescriptions Prescriptions: New meclizine 25 mg Tablet 25 mg PO TID PRN PRN (Reason: Vertigo) 5 Days Qty: 15 0RF Continued dexlansoprazole [Dexilant] 60 mg capsule,biphase delayed releas 60 mg PO BID Qty: 120 4RF clonidine 0.3 mg/24 hr patch weekly 1 patch transdermal QWEEK Linzess 72 mcg capsule 72 mcg PO DAILY PRN (Reason: constiopation) inclisiran 284 mg/1.5 mL syringe 284 mg subcut [id number] multivitamin Tablet 1 tab PO DAILY acetaminophen 325 MG tablet 650 mg PO Q6H PRN PRN (Reason: Mild Pain (0-3/10)/Headache) 0RF paroxetine HCl 20 MG tablet 20 mg PO DAILY Qty: 30 0RF losartan 100 MG tablet 100 mg PO DAILY Qty: 30 0RF loratadine 10 MG tablet 10 mg PO DAILY PRN (Reason: ALLERGIES) 0RF hydrochlorothiazide 25 mg Tablet 25 mg PO DAILY albuterol sulfate 90 mcg/actuation Hfa Aerosol Inhaler 1 puff INHALATION Q6H PRN (Reason: SOB) cholecalciferol (vitamin D3) [Vitamin D3] 25 mcg (1,000 unit) Capsule 25 mcg PO DAILY clonidine HCl 0.1 mg tablet 0.1 mg PO DAILY PRN (Reason: high blood pressure) Referrals / Follow Up: Luan Guzman MD [Med Staff - Active Staff] - 02/25/24 11:00 am Brandon March Chi, MD [Primary Care Provider] - Within 1 Week Disposition Disposition (needs filled in before D/C Order can be placed): Home, Self Care 01/23/24 1400 Cal Billings MD CC: DUSTY Garrido; Dr. Linda Lee MD; Dr. Bárbara Sandoval MD; Dr. Moisés Bartlett MD; Dr. Bennie Landrum MD; Dr. Kal Wright DO; Dr. Se Ellis MD; Dr. Macario Allen DO; Dr. Luan Guzman MD; Dr. Ronny Wilson MD; Dr. Arthur Hernandez MD; Dr. Kevin Nesbitt MD; Dr. Brandon March MD; NAIMA Akers Signed Normal [facility] Eosinophil percentageOrdered By: Cal Billings on 01-23-2024 Eosinophils/100 WBC (Bld) 2.7 % 0-5 [facility] Erythrocyte distribution wid th ratioOrdered By: Cal Billings on 01-23-2024 Erythrocyte distribution width (RBC) [Ratio] 12.3 % 11.6-14.6 [facility] Erythrocyte distribution wid th standard deviationOrdered By: Cal Billings on 01-23-2024 Erythrocyte distribution width (RBC) [Entitic vol] 41.7 fL 35.1-43.9 [facility] Estimated glomerular filtrat ion rate (GFR) AmericanOrdered By: Cal Billings on 01-23-2024 Estimated GFR (MDRD) Amer 43 mL/min Low >60 [facility] Comment on above: GFR Calc Estimation of creatinine felix aranceOrdered By: Cal Billings on 01-23-2024 Estimated Creatinine Clearance Calc 26.27 ml/min [facility] Glomerular filtration rate ( GFR) estimationOrdered By: Cal Billings on 01-23-2024 Estimated GFR (MDRD) Non-Af Amer 36 mL/min Low >60 [facility] Comment on above: Non- GFR Calc Glucose measurementOrdered B y: Cal Billings on 01-23-2024 Glucose [Mass/Vol] 115 mg/dL High 74-106 [facility] Comment on above: Fasting Glucose resu lt from 100 to 125 mg/dL suggests IMPAIRED HOMEOSTASIS per A.D.A. criteria. Hematocrit Auto (Bld) [Volum e fraction]Ordered By: Cal Billings on 01-23-2024 Hematocrit (Bld) [Volume fraction] 42.3 % 37-47 [facility] Hemoglobin measurementOrdere d By: Cal Billings on 01-23-2024 Hemoglobin (Bld) [Mass/Vol] 14.0 g/dL 12.0-15.0 [facility] Immature granulocytes/100 WB C Auto (Bld)Ordered By: Cal Billings on 01-23-2024 Immature granulocytes/100 WBC (Bld) 0.400 % 0.0-0.9 [facility] Comment on above: IG% - Immature Granu locytes (promyelocytes, myelocytes and metamyelocytes) > 1% indicates that a LEFT SHIFT is Present. Lymphocytes Auto (Unsp spec) [#/Vol]Ordered By: Cal Billings on 01-23-2024 Lymphocytes (Bld) [#/Vol] 3.72 10*3/uL 0.83-4.51 [facility] Lymphocytes/100 WBC Auto (Un sp spec)Ordered By: Cal Billings on 01-23-2024 Lymphocytes/100 WBC (Bld) 34.1 % 19-41 [facility] MCV (mean corpuscular volume ) determinationOrdered By: Cal Billings on 01-23-2024 MCV (RBC) [Entitic vol] 92.4 fL 81-99 [facility] Mean corpuscular hemoglobin (MCH) determinationOrdered By: Cal Billings on 01-23-2024 MCH (RBC) [Entitic mass] 30.6 pg 27.0-32.0 [facility] Mean corpuscular hemoglobin concentration (MCHC) determinationOrdered By: Cal Billings on 01-23-2024 MCHC (RBC) [Mass/Vol] 33.1 g/dL 32-36 [facility] Mean platelet volume determi nationOrdered By: Cal Billings on 01-23-2024 Platelet mean volume (Bld) [Entitic vol] 9.8 fL 6.2-12.0 [facility] Monocyte percentageOrdered B y: Cal Billings on 01-23-2024 Monocytes/100 WBC (Bld) 9.0 % 0-10 [facility] Neutrophil percentageOrdered By: Cal Billings on 01-23-2024 Neutrophils/100 WBC (Bld) 53.1 % 47-70 [facility] Nucleated red blood cell per centageOrdered By: Cal Billings on 01-23-2024 Nucleated RBC/100 WBC (Bld) [Ratio] 0 % 0-5 [facility] Platelet countOrdered By: Imelda Billings on 01-23-2024 Platelets (Bld) [#/Vol] 288 10*3/uL 150-450 [facility] Potassium measurementOrdered By: Cal Billings on 01-23-2024 Potassium [Moles/Vol] 3.5 mmol/L 3.5-5.1 [facility] RBC Auto (Bld) [#/Vol]Ordere d By: Cal Billings on 01-23-2024 RBC (Bld) [#/Vol] 4.58 10*6/uL 4.2-5.4 [facility] Serum anion gap measurementO rdered By: Cal Billings on 01-23-2024 Anion gap [Moles/Vol] 7 mmol/L 5-15 [facility] Serum or plasma calcium bacilio urement (mass/volume)Ordered By: Cal Billings on 01-23-2024 Calcium [Mass/Vol] 10.5 mg/dL High 8.5-10.1 [facility] Serum or plasma creatinine m easurement (mass/volume)Ordered By: Cal Billings on 01-23-2024 Creatinine [Mass/Vol] 1.48 mg/dL High 0.55-1.02 [facility] Comment on above: The validity of the calculated GFR & GFRAA in patients over 70 years has not been determined. Clinical correlation is essential. Serum or plasma urea nitroge n measurement (mass/volume)Ordered By: Cal Billings on 01-23-2024 Urea nitrogen [Mass/Vol] 30 mg/dL High 7-18 [facility] Sodium levelOrdered By: Julito Billings on 01-23-2024 Sodium [Moles/Vol] 142 mmol/L 136-145 [facility] White blood cell (WBC) count Ordered By: Cal Billings on 01-23-2024 WBC (Bld) [#/Vol] 10.9 10*3/uL 4.4-11.0 [facility] Basic Metabolic Profile (BMP )on 01-22-2024 BUN/CRE 19.8 RATIO Normal 10-20 [facility] Comment on above: Performed By: #### L 100.0100, L501.5425, L503.6620, L300.4310, L300.3900, L500.2500 #### [facility] [address] [facility] [address] [place],Total 10.3 mg/dL High 8.5-10.1 [facility] Comment on above: Performed By: #### L 100.0100, L501.5425, L503.6620, L300.4310, L300.3900, L500.2500 #### [facility] [address] [place], [address] Chloride [Moles/Vol] 109 mmol/L High 98-107 [facility] Comment on above: Performed By: #### L 100.0100, L501.5425, L503.6620, L300.4310, L300.3900, L500.2500 #### [facility] [address] [place], [address] CO2 [Moles/Vol] 28.0 mmol/L Normal 21.0-32.0 [facility] Comment on above: Performed By: #### L 100.0100, L501.5425, L503.6620, L300.4310, L300.3900, L500.2500 #### [facility] [address] [place], [address] Creatinine [Mass/Vol] 1.26 mg/dL High 0.55-1.02 [facility] Comment on above: Result Comment: The validity of the calculated GFR GFRAA in patients over 70 years has not been determined. Clinical correlation is essential. Performed By: #### L 100.0100, L501.5425, L503.6620, L300.4310, L300.3900, L500.2500 #### [facility] [address] [place], [address] ECRCL 30.29 ml/min Normal [facility] Comment on above: Performed By: #### L 100.0100, L501.5425, L503.6620, L300.4310, L300.3900, L500.2500 #### [facility] [address] [facility] [id number] (283 EST GFR - AA 52 mL/min Low >60 [facility] Comment on above: Result Comment: Afri can Haitian GFR Calc Performed By: #### L 100.0100, L501.5425, L503.6620, L300.4310, L300.3900, L500.2500 #### [facility] [address] [place], [address] GAP 5 Normal 5-15 [facility] Comment on above: Performed By: #### L 100.0100, L501.5425, L503.6620, L300.4310, L300.3900, L500.2500 #### [facility] [address] [place], [address] GFR/1.73 sq M.predicted among non-blacks MDRD (S/P/Bld) [Vol rate/Area] 43 mL/min/{1.73_m2} Low >60 [facility] Comment on above: Result Comment: Non- GFR Calc Performed By: #### L 100.0100, L501.5425, L503.6620, L300.4310, L300.3900, L500.2500 #### [facility] [address] [place], [address] Glucose [Mass/Vol] 108 mg/dL High 74-106 [facility] Comment on above: Result Comment: Fast ing Glucose result from 100 to 125 mg/dL suggests IMPAIRED HOMEOSTASIS per A.D.A. criteria. Performed By: #### L 100.0100, L501.5425, L503.6620, L300.4310, L300.3900, L500.2500 #### [facility] [address] [place], [address] Potassium [Moles/Vol] 3.4 mmol/L Low 3.5-5.1 [facility] Comment on above: Performed By: #### L 100.0100, L501.5425, L503.6620, L300.4310, L300.3900, L500.2500 #### [facility] [address] [place], [address] Sodium [Moles/Vol] 142 mmol/L Normal 136-145 [facility] Comment on above: Performed By: #### L 100.0100, L501.5425, L503.6620, L300.4310, L300.3900, L500.2500 #### [facility] [address] [place], [address] Urea nitrogen [Mass/Vol] 25 mg/dL High 7-18 [facility] Comment on above: Performed By: #### L 100.0100, L501.5425, L503.6620, L300.4310, L300.3900, L500.2500 #### [facility] [address] [place], [address] CBC W/Diff, Automatedon 12-1 0 Absolute Lymph 4.30 X10 3/uL Normal 0.83-4.51 [facility] Comment on above: Performed By: #### L 100.0100, L501.5425, L503.6620, L300.4310, L300.3900, L500.2500 #### [facility] [address] [place], [address] Absolute Neut 4.8 X10 3/uL Normal 2.0-7.7 [facility] Comment on above: Performed By: #### L 100.0100, L501.5425, L503.6620, L300.4310, L300.3900, L500.2500 #### [facility] [address] [place], [address] Basophils/100 WBC (Bld) 0.9 % Normal 0-1 [facility] Comment on above: Performed By: #### L 100.0100, L501.5425, L503.6620, L300.4310, L300.3900, L500.2500 #### [facility] [address] [place], [address] Eosinophils/100 WBC (Bld) 3.7 % Normal 0-5 [facility] Comment on above: Performed By: #### L 100.0100, L501.5425, L503.6620, L300.4310, L300.3900, L500.2500 #### [facility] [address] [place], [address] Erythrocyte distribution width (RBC) [Ratio] 12.3 % Normal 11.6-14.6 [facility] Comment on above: Performed By: #### L 100.0100, L501.5425, L503.6620, L300.4310, L300.3900, L500.2500 #### [facility] [address] [place], [address] Hematocrit (Bld) [Volume fraction] 43.0 % Normal 37-47 [facility] Comment on above: Performed By: #### L 100.0100, L501.5425, L503.6620, L300.4310, L300.3900, L500.2500 #### [facility] [address] [place], [address] Hemoglobin (Bld) [Mass/Vol] 13.8 g/dL Normal 12.0-15.0 [facility] Comment on above: Performed By: #### L 100.0100, L501.5425, L503.6620, L300.4310, L300.3900, L500.2500 #### [facility] [address] [place], [address] IG% 0.300 Normal 0.0-0.9 [facility] Comment on above: Result Comment: IG% - Immature Granulocytes (promyelocytes, myelocytes and metamyelocytes) > 1% indicates that a LEFT SHIFT is Present. Performed By: #### L 100.0100, L501.5425, L503.6620, L300.4310, L300.3900, L500.2500 #### [facility] [address] [place], [address] Lymphocytes/100 WBC (Bld) 40.3 % Normal 19-41 [facility] Comment on above: Performed By: #### L 100.0100, L501.5425, L503.6620, L300.4310, L300.3900, L500.2500 #### [facility] [address] [place], [address] MCH (RBC) [Entitic mass] 29.9 pg Normal 27.0-32.0 [facility] Comment on above: Performed By: #### L 100.0100, L501.5425, L503.6620, L300.4310, L300.3900, L500.2500 #### [facility] [address] [place], [address] MCHC (RBC) [Mass/Vol] 32.1 g/dL Normal 32-36 [facility] Comment on above: Performed By: #### L 100.0100, L501.5425, L503.6620, L300.4310, L300.3900, L500.2500 #### [facility] [address] [place], [address] MCV (RBC) [Entitic vol] 93.3 fL Normal 81-99 [facility] Comment on above: Performed By: #### L 100.0100, L501.5425, L503.6620, L300.4310, L300.3900, L500.2500 #### [facility] [address] [place], [address] Monocytes/100 WBC (Bld) 9.6 % Normal 0-10 [facility] Comment on above: Performed By: #### L 100.0100, L501.5425, L503.6620, L300.4310, L300.3900, L500.2500 #### [facility] [address] [place], [address] Neutrophils/100 WBC (Bld) 45.2 % Low 47-70 [facility] Comment on above: Performed By: #### L 100.0100, L501.5425, L503.6620, L300.4310, L300.3900, L500.2500 #### [facility] [address] [place], [address] Nucleated RBC (Bld) [#/Vol] 0 10*3/uL Normal 0-5 [facility] Comment on above: Performed By: #### L 100.0100, L501.5425, L503.6620, L300.4310, L300.3900, L500.2500 #### [facility] [address] [place], [address] Platelet mean volume (Bld) [Entitic vol] 10.1 fL Normal 6.2-12.0 [facility] Comment on above: Performed By: #### L 100.0100, L501.5425, L503.6620, L300.4310, L300.3900, L500.2500 #### [facility] [address] [place], [address] Platelets (Bld) [#/Vol] 292 10*3/uL Normal 150-450 [facility] Comment on above: Performed By: #### L 100.0100, L501.5425, L503.6620, L300.4310, L300.3900, L500.2500 #### [facility] [address] [place], [address] RBC (Bld) [#/Vol] 4.61 10*6/uL Normal 4.2-5.4 [facility] Comment on above: Performed By: #### L 100.0100, L501.5425, L503.6620, L300.4310, L300.3900, L500.2500 #### [facility] [address] [place], [address] RDW SD 42.1 fl Normal 35.1-43.9 [facility] Comment on above: Performed By: #### L 100.0100, L501.5425, L503.6620, L300.4310, L300.3900, L500.2500 #### [facility] [address] [place], [address] WBC (Bld) [#/Vol] 10.7 10*3/uL Normal 4.4-11.0 [facility] Comment on above: Performed By: #### L 100.0100, L501.5425, L503.6620, L300.4310, L300.3900, L500.2500 #### [facility] [address] [place], [address] Basic Metabolic Profile (BMP )on 01-21-2024 BUN/CRE 16.8 RATIO Normal 10-20 [facility] Comment on above: Performed By: #### L 500.2500 #### [facility] [address] [place], [address] CA,Total 10.2 mg/dL High 8.5-10.1 [facility] Comment on above: Performed By: #### L 500.2500 #### [facility] [address] [place], [address] Chloride [Moles/Vol] 106 mmol/L Normal 98-107 [facility] Comment on above: Performed By: #### L 500.2500 #### [facility] [address] [place], [address] CO2 [Moles/Vol] 29.0 mmol/L Normal 21.0-32.0 [facility] Comment on above: Performed By: #### L 500.2500 #### [facility] [address] [place], [address] Creatinine [Mass/Vol] 1.37 mg/dL High 0.55-1.02 [facility] Comment on above: Result Comment: The validity of the calculated GFR GFRAA in patients over 70 years has not been determined. Clinical correlation is essential. Performed By: #### L 500.2500 #### [facility] [address] [place], [address] ECRCL 27.88 ml/min Normal [facility] Comment on above: Performed By: #### L 500.2500 #### [facility] [address] [place], [address] EST GFR - AA 47 mL/min Low >60 [facility] Comment on above: Result Comment: Afri can Haitian GFR Calc Performed By: #### L 500.2500 #### [facility] [address] [place], [address] GAP 5 Normal 5-15 [facility] Comment on above: Performed By: #### L 500.2500 #### [facility] [address] [place], [address] GFR/1.73 sq M.predicted among non-blacks MDRD (S/P/Bld) [Vol rate/Area] 39 mL/min/{1.73_m2} Low >60 [facility] Comment on above: Result Comment: Non- GFR Calc Performed By: #### L 500.2500 #### [facility] [address] [place], [address] Glucose [Mass/Vol] 111 mg/dL High 74-106 [facility] Comment on above: Result Comment: Fast ing Glucose result from 100 to 125 mg/dL suggests IMPAIRED HOMEOSTASIS per A.D.A. criteria. Performed By: #### L 500.2500 #### [facility] [address] [place], [address] Potassium [Moles/Vol] 3.5 mmol/L Normal 3.5-5.1 [facility] Comment on above: Performed By: #### L 500.2500 #### [facility] [address] [place], [address] Sodium [Moles/Vol] 140 mmol/L Normal 136-145 [facility] Comment on above: Performed By: #### L 500.2500 #### [facility] [address] [place], [address] Urea nitrogen [Mass/Vol] 23 mg/dL High 7-18 [facility] Comment on above: Performed By: #### L 500.2500 #### [facility] [address] [place], [address] CBC W/Diff, Automatedon 12-0 Absolute Lymph 4.95 X10 3/uL High 0.83-4.51 [facility] Comment on above: Performed By: #### L 100.0100, L501.5425, L503.6620, L300.4310, L300.3900, L500.2500 #### [facility] [address] [place], [address] Absolute Neut 5.6 X10 3/uL Normal 2.0-7.7 [facility] Comment on above: Performed By: #### L 100.0100, L501.5425, L503.6620, L300.4310, L300.3900, L500.2500 #### [facility] [address] [place], [address] Basophils/100 WBC (Bld) 1.0 % Normal 0-1 [facility] Comment on above: Performed By: #### L 100.0100, L501.5425, L503.6620, L300.4310, L300.3900, L500.2500 #### [facility] [address] [place], [address] Eosinophils/100 WBC (Bld) 2.6 % Normal 0-5 [facility] Comment on above: Performed By: #### L 100.0100, L501.5425, L503.6620, L300.4310, L300.3900, L500.2500 #### [facility] [address] [place], [address] Erythrocyte distribution width (RBC) [Ratio] 12.3 % Normal 11.6-14.6 [facility] Comment on above: Performed By: #### L 100.0100, L501.5425, L503.6620, L300.4310, L300.3900, L500.2500 #### [facility] [address] [place], [address] Hematocrit (Bld) [Volume fraction] 41.3 % Normal 37-47 [facility] Comment on above: Performed By: #### L 100.0100, L501.5425, L503.6620, L300.4310, L300.3900, L500.2500 #### [facility] [address] [place], [address] Hemoglobin (Bld) [Mass/Vol] 13.6 g/dL Normal 12.0-15.0 [facility] Comment on above: Performed By: #### L 100.0100, L501.5425, L503.6620, L300.4310, L300.3900, L500.2500 #### [facility] [address] [place], [address] IG% 0.500 Normal 0.0-0.9 [facility] Comment on above: Result Comment: IG% - Immature Granulocytes (promyelocytes, myelocytes and metamyelocytes) > 1% indicates that a LEFT SHIFT is Present. Performed By: #### L 100.0100, L501.5425, L503.6620, L300.4310, L300.3900, L500.2500 #### [facility] [address] [place], [address] Lymphocytes/100 WBC (Bld) 39.8 % Normal 19-41 [facility] Comment on above: Performed By: #### L 100.0100, L501.5425, L503.6620, L300.4310, L300.3900, L500.2500 #### [facility] [address] [place], [address] MCH (RBC) [Entitic mass] 30.6 pg Normal 27.0-32.0 [facility] Comment on above: Performed By: #### L 100.0100, L501.5425, L503.6620, L300.4310, L300.3900, L500.2500 #### [facility] [address] [place], [address] MCHC (RBC) [Mass/Vol] 32.9 g/dL Normal 32-36 [facility] Comment on above: Performed By: #### L 100.0100, L501.5425, L503.6620, L300.4310, L300.3900, L500.2500 #### [facility] [address] [place], [address] MCV (RBC) [Entitic vol] 93.0 fL Normal 81-99 [facility] Comment on above: Performed By: #### L 100.0100, L501.5425, L503.6620, L300.4310, L300.3900, L500.2500 #### [facility] [address] [place], [address] Monocytes/100 WBC (Bld) 11.0 % High 0-10 [facility] Comment on above: Performed By: #### L 100.0100, L501.5425, L503.6620, L300.4310, L300.3900, L500.2500 #### [facility] [address] [place], [address] Neutrophils/100 WBC (Bld) 45.1 % Low 47-70 [facility] Comment on above: Performed By: #### L 100.0100, L501.5425, L503.6620, L300.4310, L300.3900, L500.2500 #### [facility] [address] [place], [address] Nucleated RBC (Bld) [#/Vol] 0 10*3/uL Normal 0-5 [facility] Comment on above: Performed By: #### L 100.0100, L501.5425, L503.6620, L300.4310, L300.3900, L500.2500 #### [facility] [address] [place], [address] Platelet mean volume (Bld) [Entitic vol] 9.9 fL Normal 6.2-12.0 [facility] Comment on above: Performed By: #### L 100.0100, L501.5425, L503.6620, L300.4310, L300.3900, L500.2500 #### [facility] [address] [place], [address] Platelets (Bld) [#/Vol] 292 10*3/uL Normal 150-450 [facility] Comment on above: Performed By: #### L 100.0100, L501.5425, L503.6620, L300.4310, L300.3900, L500.2500 #### [facility] [address] [place], [address] RBC (Bld) [#/Vol] 4.44 10*6/uL Normal 4.2-5.4 [facility] Comment on above: Performed By: #### L 100.0100, L501.5425, L503.6620, L300.4310, L300.3900, L500.2500 #### [facility] [address] [place], [address] RDW SD 42.2 fl Normal 35.1-43.9 [facility] Comment on above: Performed By: #### L 100.0100, L501.5425, L503.6620, L300.4310, L300.3900, L500.2500 #### [facility] [address] [place], [address] WBC (Bld) [#/Vol] 12.4 10*3/uL High 4.4-11.0 [facility] Comment on above: Performed By: #### L 100.0100, L501.5425, L503.6620, L300.4310, L300.3900, L500.2500 #### [facility] [address] [place], [address] Brain without Contraston Brain without Contrast [facility] Services [address] [place] [address] Brain without Contrast MR#: [id number] Acct: [id number] Name: CARLEY SPRAGUE Rep #: [id number] : 1940 F 83 From: Benja [place] PCP: Dr. Brandon March MD Status: ADM IN Study: Brain without Contrast Date of Exam: 01/20/24 Exam# [id number] Ordering Dr: Macario Allen DO [id number] STUDY: MR Brain W/O Contrast 01/20/2024 3:51 PM REASON FOR EXAM: Female, 83 years old. DIZZINESS COMPARISON: CT head and 2 days ago TECHNIQUE: Standardized multiplanar fat and water weighted pulse sequences were obtained. MR Brain W/O Contrast FINDINGS: There is mild cerebral atrophy with widening of the extra-axial spaces and ventricular dilatation. There are a limited number of small white matter hyperintensities, distributed throughout the deep white matter tracts of the cerebral hemispheres, consistent with mild chronic white matter ischemic changes. There is mild prominence of the vermian folia, consistent with atrophy of the vermis. The cerebellar hemispheres are normal. Normal bilateral basal ganglia. Normal thalami. There is no extra-axial fluid accumulation. Normal flow voids within the major intracranial circulation suggesting patency by spin echo criteria. Normal sella turcica, pituitary gland, infundibular stalk, optic chiasm and hypothalamus. Normal tectal plate and pineal gland. Normal midbrain, bob and medulla. Normal basal cisterns. Normal bilateral temporal bones. Normal bilateral internal auditory canals. No demonstrated orbital abnormality, within the constraints of a routine brain study. Left mastoid air cell disease. Normal calvarium and skull base. Normal visualized soft tissue structures. Normal visualized upper cervical spine. Aspect score 10 MRI/Brain without Contrast IMPRESSION: (NOT LISTED IN ORDER OF SIGNIFICANCE) There are no acute intracranial findings. Electronically Signed: Benja Chau MD at 15:53 EST , CC: Dr. Macario Allen DO; Dr. Brandon March MD Patient Representative: Signed [facility] Consultation - Cardiologyon 01-19-2024 Consultation - Cardiology [facility] Medical Records Department [address] [place] [address] Consultation - Cardiology 01/19/24 0906 MR#: [id number] Acct: [id number] Name: CARLEY SPRAGUE Rep #: [id number] : 1940 83 From: Luan Guzman MD PCP: Dr. Brandon March MD Status:ADM IN Location: ICU ICU05-1 Assessment Plan Assessment/Plan (1) Hypertensive emergency: PLAN: Patient was admitted to the hospital last evening with a hypertensive emergency. Blood pressures 240/105. This came under control with minimal IV additional medication to her Catapres patch and oral clonidine. The patient's p.o. intake been hampered by nausea and vomiting. The patient is EKG did not show any acute ischemic changes it is consistent with LVH. (2) Elevated troponin level not due myocardial infarction: PLAN: Patient's troponins are minimally elevated at 107 on the first set the delta troponin was 113. This is consistent with a hypertensive emergency in a patient with known LVH and minimal coronary artery disease on a heart catheterization 2010. Current EKG does not show any acute ischemic changes that is consistent with her known LVH. A 2D echocardiogram has been ordered. Her previous echo done August 06, 2023 showed normal LV function. Continue control of her blood pressure is a treatment at this point in time. There may be some concern for her ability to comply with her current medical regiment which needs to be addressed with the primary care team who is treating her blood pressure. No further evaluation be indicated unless something unforeseen shows up on the echocardiogram. (3) Cardiac murmur: PLAN: Patient had a cardiac murmur documented back in June 2023 at an office visit. A subsequent echo showed normal valves with no significant issues. This probably represents by character and physical exam a systolic outflow murmur related to her LVH and hypertension. Repeat 2D echo was performed today and is pending at this time. Further recommendations to be forthcoming if something unforeseen shows up on this echo. PLAN: Plan 1. Continue current medical therapy. 2. We will follow-up with any additional recommendations once results of the echocardiogram done today are available. 3. Patient should continue to follow-up with her primary care service for long-term management of her hypertension. HPI Consult Data Date of Consult: 01/19/24 HPI Narrative Reason for Consultation: Elevated troponin and hypertensive emergency HPI Narrative: CARLEY SPRAGUE, is a 83 F who presents with a hypertensive emergency blood pressure in the 240/105 range. She also presented with nausea and vomiting. The patient's blood pressure is notoriously been difficult to control. She has been on a combination of clonidine patch and oral as needed clonidine in her home environment as well as ARB therapy. She has been intolerant to multiple medications including amlodipine and MIKE inhibitor's due to cough and/or rash. The patient was recently switched from losartan to valsartan. She stopped taking the valsartan and went back to the losartan about a week ago. This was due to a cough by her report. The patient has noticed her blood pressure had elevated she reports that she was compliant with her medications and she was taking supplemental as needed oral clonidine frequently but erratically. The patient was admitted to the hospital CT of the abdomen revealed gastritis and possible peptic ulcer disease. The patient does have a history of anemia. The patient's troponins were elevated minimally at 107 and then 113. BNP was 271. The patient denies any chest pain. She denies any significant shortness of breath. Her main complaint was the nausea and vomiting. EKG done in the emergency department showed normal sinus rhythm at [address] changes consistent with LVH. The patient had a recent echocardiogram done August 06, 2023. That showed normal LV function with an ejection fraction of 70% there were no regional wall motion abnormalities. The RV was normal there was no valve disease documented. The patient has a history of CVA as well as fibromyalgia. The patient had a left heart catheterization done in 2010 the LAD had a 10% stenosis there was a small first diagonal with a 40% stenosis the circumflex and right coronary had 10% stenoses. There was an EF of 70% documented with left ventricular hypertrophy. Patient has a history of hyperlipidemia managed by her primary care doctor she is on injectable therapy. The patient carries a history of cardiac murmur but there is no significant valvular heart disease this is probably consistent with an ejection murmur related to her LVH and hypertension. Since admission the patient's blood pressures come under excellent control and is 135/80 with a heart rate of 85 currently. She received a single dose of IV hydralazine last monique (more content not included)... Normal [facility] Folates, (Folic Acid)on FOLATES 22.40 ng/mL Normal 3.1-55.4 [facility] Comment on above: Order Comment: Has Dulce Maria guerrero had X-rays with Contrast this admission? NN Performed By: #### L 100.0100, L501.5425, L503.6620, L300.4310, L300.3900, L500.2500 #### [facility] [address] [place], [place], [id number] Hemoglobin A1con 01-19-2024 HbA1c (Bld) [Mass fraction] 5.3 % Normal 3.8-5.6 [facility] Comment on above: Result Comment: Norm al < 5.7 % Prediabetic 5.7 - 6.4 % Diabetic >or= 6.5 % Please note range changes. Performed By: #### L 100.0100, L501.5425, L503.6620, L300.4310, L300.3900, L500.2500 #### [facility] [address] [place], [place], [address] Hemoglobin A1c percentageOrd ered By: Kal Nolan on 01-19-2024 HbA1c (Bld) [Mass fraction] 5.3 % 3.8-5.6 [facility] Comment on above: Normal < 5.7 % Predi abetic 5.7 - 6.4 % Diabetic >or= 6.5 % Please note range changes. Lipid Profileon 01-19-2024 Cholesterol [Mass/Vol] 184 mg/dL Normal 200 [facility] Comment on above: Order Comment: Has Dulce Maria guerrero had X-rays with Contrast this admission? NN Result Comment: <200 mg/dL Desirable 200-240 mg/dL Borderline >240 mg/dL High Risk Performed By: #### L 100.0100, L501.5425, L503.6620, L300.4310, L300.3900, L500.2500 #### [facility] [address] [place], [address] Cholesterol in HDL [Mass/Vol] 53 mg/dL Normal [facility] Comment on above: Order Comment: Has Dulce Maria guerrero had X-rays with Contrast this admission? NN Result Comment: The drugs N-Acetylcysteine and Metamizole may falsely depress this assay. Reference Range HDL <40 mg/dL Low HDL Cholesterol HDL >or= 60 mg/dL High HDL Cholesterol Performed By: #### L 100.0100, L501.5425, L503.6620, L300.4310, L300.3900, L500.2500 #### [facility] [address] [place], [address] Cholesterol in LDL [Mass/Vol] 103 mg/dL Normal 0-130 [facility] Comment on above: Order Comment: Has Dulce Maria guerrero had X-rays with Contrast this admission? NN Performed By: #### L 100.0100, L501.5425, L503.6620, L300.4310, L300.3900, L500.2500 #### [facility] [address] [place], [address] Cholesterol in VLDL [Mass/Vol] 28 mg/dL Normal 5-40 [facility] Comment on above: Order Comment: Has Dulce Maria guerrero had X-rays with Contrast this admission? NN Performed By: #### L 100.0100, L501.5425, L503.6620, L300.4310, L300.3900, L500.2500 #### [facility] [address] [place], [address] Triglyceride [Mass/Vol] 140 mg/dL Normal [facility] Comment on above: Order Comment: Has Dulce Maria guerrero had X-rays with Contrast this admission? NN Result Comment: The drugs N-Acetylcysteine and Metamizole may falsely depress this assay. Serum Triglycerides Reference Interval Normal <150 mg/dL Borderline high 150 - 199 mg/dL High 200 - 499 mg/dL Very High > or = 500 mg/dL Performed By: #### L 100.0100, L501.5425, L503.6620, L300.4310, L300.3900, L500.2500 #### [facility] [address] [place], [address] Thyroid Stim Hormone (TSH)on 01-19-2024 TSH 0.827 uIU/mL Normal 0.358-3.740 [facility] Comment on above: Order Comment: Has Dulce Maria guerrero had X-rays with Contrast this admission? NN Performed By: #### L 100.0100, L501.5425, L503.6620, L300.4310, L300.3900, L500.2500 #### [facility] [address] [place], [address] Vitamin B12on 01-19-2024 Cobalamin (Vitamin B12) [Mass/Vol] 666 pg/mL Normal -911 [facility] Comment on above: Performed By: #### L 100.0100, L501.5425, L503.6620, L300.4310, L300.3900, L500.2500 #### [facility] [address] [place], [address] Vitamin B12 measurementOrder ed By: Kal Nolan on 01-19-2024 Cobalamin (Vitamin B12) [Mass/Vol] 666 pg/mL 211-911 [facility] 12 Lead EKGon 01-18-2024 12 Lead EKG [facility] Cardiovascular Services [address] [place] [address] 12 Lead EKG 01/18/24 1917 MR#: [id number] Acct: [id number] Name: SPRAGUECARLEY TOMMIE Rep #: [id number] : 1940 83 From: Luan Guzman MD Attending Dr: Dr. Macario Allen DO Status: A DM IN Ordering Dr: Florencio Camargo DO Date: 4 Location: [facility] Sex: F C Admitted: 01/18/24 Test Reason : DYSRHYTHMIA Blood Pressure : */* mmHG Vent. Rate : 68 BPM Atrial Rate : 68 BPM P-R Int : 178 ms QRS Dur : 86 ms QT Int : 406 ms P-R-T Axes : 35 -25 44 degrees QTcB Int : 431 ms Normal sinus rhythm Voltage criteria for left ventricular hypertrophy abnormal Reconfirmed by Luan Guzman ([id number]), non linear editor NABOR BENNETT ([id number]) on 01/21/2024 6:46:49 AM Referred By: TL Confirmed By: Luan Guzman 01/21/24 0646 Date Luan Guzman MD CC: Dr. Florencio Camargo DO; Dr. Macario Allen DO; Dr. Brandon March MD Signed Normal [facility] Abdomen/Pelvis W IV Cont ONL [facility] 01-18-2024 Abdomen/Pelvis W IV Cont ONLY [facility] Imaging Services [address] [place] [id number] Abdomen/Pelvis W IV Cont ONLY MR#: [id number] Acct: [id number] Name: CARLEY SPRAGUE Rep #: [id number] : 1940 F 83 From: Denny Jarvis MD PCP: Dr. Brandon March MD Status: ADM IN Study: Abdomen/Pelvis W IV Cont ONLY Date of Exam: Exam# [id number] Ordering Dr: Florencio Camargo DO [id number] STUDY: CT ABDOMEN AND PELVIS WITH CONTRAST REASON FOR EXAM: Female, 83 years old. Nausea, vomiting, elevated white RADIATION DOSAGE (If Supplied By Facility): CTDIvol = ( 13.07 ) mGy, DLP = ( 771.98 ) mGycm TECHNIQUE: Transaxial images were obtained from the dome of the diaphragm to the symphysis pubis without oral contrast. IV 100mL Isovue-370 was administered. Sagittal and coronal images were reconstructed. Individualized dose optimization techniques were used for this CT. COMPARISON: January 28, 2018 FINDINGS: Minor chronic interstitial thickening in the lower lobes. Tiny nodular opacity at the right base measuring approximately 5 to 6 mm. Heart is mildly enlarged. No coronary artery calcification is observed. Small hiatal hernia is noted Nonspecific fatty infiltration of liver. There are no intrahepatic masses however there is mild bile duct dilatation likely physiologic due to prior cholecystectomy.. . Normal spleen. Normal pancreas. Normal bilateral adrenal glands. Normal right kidney. Normal left kidney. Mild nonspecific thickening of the corbett of the stomach at the gastroduodenal junction which may be consistent with nonspecific gastroduodenitis. No evidence for small bowel obstruction . Scattered diverticular changes of the colon without evidence for acute diverticulitis. No evidence for acute appendicitis. Atherosclerotic changes of the aorta without evidence for aneurysm. Normal inferior vena cava. Normal retroperitoneum. Normal urinary bladder. Uterus not visualized consistent with hysterectomy Normal abdominal wall. Lumbar spine demonstrates degenerative change. Grade 1 spondylolisthesis at L5-S1 CT/Abdomen/Pelvis W IV Cont ONLY IMPRESSION: Findings which may be consistent with nonspecific gastroduodenitis possibly due to peptic ulcer disease... Scattered diverticular changes of the colon without evidence for acute diverticulitis No evidence for small bowel obstruction or other acute abnormality Incidental finding of tiny nonspecific nodule in the right lower lobe measuring approximately 5 to 6 mm likely of no significance however would recommend further imaging utilizing Fleischner Society criteria if clinically warranted Electronically Signed: Denny Jarvis MD at 23:03 EST Reading Location ID and State: [facility] / MD Tel , Service support , CC: Dr. Florencio Camargo, DO; Dr. Brandon March MD Patient Representative: Signed [facility] Amorphous sediment detection in urine sediment by light microscopyOrdered By: Florencio Camrago on 01-18-2024 Amorphous sediment LM Ql (Urine sed) 1+ [facility] Atypical lymphocyte percenta geOrdered By: Florencio Camargo on 01-18-2024 Atypical Lymphocytes 2+ % [facility] BNP (brain natriuretic pepti de measurement)Ordered By: Florencio Camargo on 01-18-2024 Natriuretic peptide B (Bld) [Mass/Vol] 271.6 pg/mL High 0-100 [facility] BNP,B-Type NATRIURETIC PEPTI Fartun 01-18-2024 Natriuretic peptide B (Bld) [Mass/Vol] 271.6 pg/mL High 0-100 [facility] Comment on above: Performed By: #### L 100.0100, L501.5425, L503.6620, L300.4310, L300.3900, L500.2500 #### [facility] [address] [place], [address] Bacteria LM.HPF (Urine sed) [#/Area]Ordered By: Florencio Camargo on 01-18-2024 Urine Bacteria RARE /hpf None Seen [facility] Basic Metabolic Profile (BMP )on 01-18-2024 BUN/CRE 17.0 RATIO Normal 10-20 [facility] Comment on above: Order Comment: 1 Y Performed By: #### L 100.0100, L501.5425, L503.6620, L300.4310, L300.3900, L500.2500 #### [facility] [address] [place], [address] CA,Total 10.3 mg/dL High 8.5-10.1 [facility] Comment on above: Order Comment: 1 Y Performed By: #### L 100.0100, L501.5425, L503.6620, L300.4310, L300.3900, L500.2500 #### [facility] [address] [place], [address] Chloride [Moles/Vol] 110 mmol/L High 98-107 [facility] Comment on above: Order Comment: 1 Y Performed By: #### L 100.0100, L501.5425, L503.6620, L300.4310, L300.3900, L500.2500 #### [facility] [address] [place], [address] CO2 [Moles/Vol] 22.0 mmol/L Normal 21.0-32.0 [facility] Comment on above: Order Comment: 1 Y Performed By: #### L 100.0100, L501.5425, L503.6620, L300.4310, L300.3900, L500.2500 #### [facility] [address] [place], [address] Creatinine [Mass/Vol] 1.06 mg/dL High 0.55-1.02 [facility] Comment on above: Order Comment: 1 Y Result Comment: The validity of the calculated GFR GFRAA in patients over 70 years has not been determined. Clinical correlation is essential. Performed By: #### L 100.0100, L501.5425, L503.6620, L300.4310, L300.3900, L500.2500 #### [facility] [address] [place], [address] ECRCL 37.11 ml/min Normal [facility] Comment on above: Order Comment: 1 Y Performed By: #### L 100.0100, L501.5425, L503.6620, L300.4310, L300.3900, L500.2500 #### [facility] [address] [place], [address] EST GFR - AA 63 mL/min Normal >60 [facility] Comment on above: Order Comment: 1 Y Result Comment: Afri can Haitian GFR Calc Performed By: #### L 100.0100, L501.5425, L503.6620, L300.4310, L300.3900, L500.2500 #### [facility] [address] [place], [address] GAP 9 Normal 5-15 [facility] Comment on above: Order Comment: 1 Y Performed By: #### L 100.0100, L501.5425, L503.6620, L300.4310, L300.3900, L500.2500 #### [facility] [address] [place], [address] GFR/1.73 sq M.predicted among non-blacks MDRD (S/P/Bld) [Vol rate/Area] 52 mL/min/{1.73_m2} Low >60 [facility] Comment on above: Order Comment: 1 Y Result Comment: Non- GFR Calc Performed By: #### L 100.0100, L501.5425, L503.6620, L300.4310, L300.3900, L500.2500 #### [facility] [address] [place], [address] Glucose [Mass/Vol] 122 mg/dL High 74-106 [facility] Comment on above: Order Comment: 1 Y Result Comment: Fast ing Glucose result from 100 to 125 mg/dL suggests IMPAIRED HOMEOSTASIS per A.D.A. criteria. Performed By: #### L 100.0100, L501.5425, L503.6620, L300.4310, L300.3900, L500.2500 #### [facility] [address] [place], [address] Potassium [Moles/Vol] 3.4 mmol/L Low 3.5-5.1 [facility] Comment on above: Order Comment: 1 Y Performed By: #### L 100.0100, L501.5425, L503.6620, L300.4310, L300.3900, L500.2500 #### [facility] [address] [place], [address] Sodium [Moles/Vol] 141 mmol/L Normal 136-145 [facility] Comment on above: Order Comment: 1 Y Performed By: #### L 100.0100, L501.5425, L503.6620, L300.4310, L300.3900, L500.2500 #### [facility] [address] [place], [address] Urea nitrogen [Mass/Vol] 18 mg/dL Normal 7-18 [facility] Comment on above: Order Comment: 1 Y Performed By: #### L 100.0100, L501.5425, L503.6620, L300.4310, L300.3900, L500.2500 #### [facility] [address] [place], [address] Bilirubin Test strip Ql (U)O rdered By: Florencio Camargo on 01-18-2024 Bilirubin Ql (U) Negative Negative [facility] Brain/Head without Contrasto n 01-18-2024 Brain/Head without Contrast [facility] Imaging Services [address] [place] [address] Brain/Head without Contrast MR#: [id number] Acct: [id number] Name: CARLEY SPRAGUE Rep #: [id number] : 1940 F 83 From: Denny Jarvis MD PCP: Dr. Brandon March MD Status: REG ER Study: Brain/Head without Contrast Date of Exam: 08/05 Exam# [id number] Ordering Dr: Florencio Camargo DO [id number] STUDY: CT BRAIN WITHOUT CONTRAST REASON FOR EXAM: Female, 83 years old. Hypertension urgency, dizziness RADIATION DOSAGE (If Supplied By Facility): CTDIvol = ( 44.99 ) mGy, DLP = ( 812.98 ) mGycm TECHNIQUE: Transaxial CT imaging of the brain was performed without administration of intravenous contrast material. Individualized dose optimization techniques were used for this CT. COMPARISON: November 06, 2017 FINDINGS: Normal soft tissue structures. Normal calvarium. Calcific plaquing of the cavernous carotids Atrophy and mild periventricular white matter ischemic change.. Old left basal ganglia infarct. Normal brainstem. Normal cerebellum. There is no intracranial hemorrhage. There are no findings of an acute ischemic infarction. Normal visualized paranasal sinuses. Postsurgical changes of the orbits CT/Brain/Head without Contrast IMPRESSION: Atrophy and mild periventricular white matter ischemic changes with old left basal ganglia infarct. No mass or acute bleed. If concern for acute infarct MRI recommended. Electronically Signed: Denny Jarvis MD at 20:36 EST , CC: Dr. Florencio Camargo ; Dr. Brandon March MD Patient Representative: Signed [facility] CBC W/Diff, Automatedon 12-0 OVALOCYTE RARE Normal [facility] Comment on above: Performed By: #### L 100.0100, L501.5425, L503.6620, L300.4310, L300.3900, L500.2500 #### [facility] [address] [place], [address] Anisocytosis Ql (Bld) 1+ Normal [facility] Comment on above: Performed By: #### L 100.0100, L501.5425, L503.6620, L300.4310, L300.3900, L500.2500 #### [facility] [address] [place], [address] ATYPICAL LYMPH 2+ Normal [facility] Comment on above: Performed By: #### L 100.0100, L501.5425, L503.6620, L300.4310, L300.3900, L500.2500 #### [facility] [address] [place], [address] MACROCYTOSIS 1+ Normal [facility] Comment on above: Performed By: #### L 100.0100, L501.5425, L503.6620, L300.4310, L300.3900, L500.2500 #### [facility] [address] [place], [address] PLT EST ADEQUATE Normal ADEQ [facility] Comment on above: Performed By: #### L 100.0100, L501.5425, L503.6620, L300.4310, L300.3900, L500.2500 #### [facility] [address] [place], [address] RED CELL MORPH N CHROM Normal NORM C C [facility] Comment on above: Performed By: #### L 100.0100, L501.5425, L503.6620, L300.4310, L300.3900, L500.2500 #### [facility] [address] [place], [address] SMEAR COMMENT SEE COMMENT Normal [facility] Comment on above: Result Comment: LYMP HOCYTOSIS NOTED Performed By: #### L 100.0100, L501.5425, L503.6620, L300.4310, L300.3900, L500.2500 #### [facility] [address] [place], [address] Chest PA and Lateralon 01-17 Chest PA and Lateral [facility] Imaging Services [address] [place] [address] Chest PA and Lateral MR#: [id number] Acct: [id number] Name: CARLEY SPRAGUE Rep #: [id number] : 1940 F 83 From: Denny Jarvis MD PCP: Dr. Brandon March MD Status: REG ER Study: Chest PA and Lateral Date of Exam: 01/18/24 Exam# [id number] Ordering Dr: Florencio Camargo DO [id number] STUDY: X-RAY CHEST REASON FOR EXAM: Female, 83 years old. Hypertension TECHNIQUE: PA and lateral COMPARISON: July 21, 2020 FINDINGS: The lungs are clear and expanded. There is no demonstrated pleural abnormality. Heart is enlarged.. Normal mediastinum and suni. Normal visualized pulmonary arteries. Normal visualized aortic arch and descending thoracic aorta. Dorsal spine demonstrates degenerative change. Normal visualized ribs, clavicles, and shoulders. There is no demonstrated abnormality of the visualized soft tissue structures of the upper abdomen. RAD/Chest PA and Lateral IMPRESSION: No acute cardiopulmonary pathology Electronically Signed: Denny Jarvis MD at 20:46 EST Reading Location ID and State: [address] [place] [address] Tel , Service support , CC: Dr. Florencio Camargo DO; Dr. Brandon March MD Patient Representative: Signed Normal [facility] Echo Completeon 01-18-2024 Echo Complete [facility] Cardiovascular Services [address] [place] [address] Echo Complete 01/19/24 0743 MR#: [id number] Acct: [id number] Name: CARLEY SPRAGUE Rep #: [id number] : 1940 83 From: Se Ellis MD Attending Dr: Dr. Macario Allen DO Status: A DM IN Ordering Dr: Kal Wright DO Date: 01/18/24 Location: [facility] Sex: F C Admitted: 01/18/24 Reason For Study: HTN Procedure This was a 2D Doppler, Color Flow transthoracic echocardiogram. Exam performed portable in ICU/CCU. Left Ventricle Moderate eccentric left ventricular hypertrophy. The estimated ejection fraction is 60-65 %. Right Ventricle Normal right ventricle. Normal systolic function. Atria Normal left atrium. Normal right atrium. Mitral Valve There is mild mitral annular calcification. Trivial mitral valve insufficiency. Tricuspid Valve Normal tricuspid valve. Aortic Valve Trisinus/trileaflet aortic valve. Pulmonic Valve The pulmonic valve is not well visualized. Great Vessels Normal aortic root. Pericardium/Pleural No pericardial effusion. MMode/2D Measurements Calculations LVIDd: 3.6 cm IVSd: 1.8 cm Ao root diam: 3.5 cm LVIDs: 1.9 cm LVPWd: 1.7 cm RVDd: 3.0 cm FS: 46.8 % LAV(MOD-bp): 56.0 ml LVAd ap4: 18.3 cm2 SV(MOD-sp4): 33.4 ml LAV(MOD-bp) Indexed: 32.5 ml/m2 LVLd ap4: 6.6 cm SI(MOD-sp4): 19.4 ml/m2 LAV(MOD-sp2): 50.4 ml EDV(MOD-sp4): 42.9 ml LAV(MOD-sp4): 55.9 ml EDV(sp4-el): 43.1 ml LVAs ap4: 7.7 cm2 LVLs ap4: 5.6 cm ESV(MOD-sp4): 9.5 ml ESV(sp4-el): 9.1 ml EF(MOD-sp4): 77.9 % EF(sp4-el): 78.9 % SV(sp4-el): 34.0 ml LA A4 area: 21.1 cm2 LA dimension(2D): 4.6 cm RA A4 area: 15.6 cm2 TAPSE: 2.6 cm Time Measurements MV dec time: 0.28 sec Doppler Measurements Calculations MV E max kia: 87.3 cm/sec Lat Peak E' Kia: 4.7 cm/sec MV V2 max: 128.6 cm/sec MV A max kia: 106.2 cm/sec E/E' lat: 18.5 MV max P.6 mmHg MV E/A: 0.82 MV V2 mean: 73.8 cm/sec MV mean P.5 mmHg MV V2 VTI: 30.7 cm MV P1/2t max kia: 106.6 cm/sec Ao V2 max: 185.9 cm/sec LV V1 max: 150.9 cm/sec MV P1/2t: 86.1 msec Ao max P.8 mmHg LV V1 max P.1 mmHg Ao V2 mean: 137.8 cm/sec LV V1 mean P.1 mmHg MV dec slope: 362.8 cm/sec2 Ao mean P.4 mmHg LV V1 mean: 102.6 cm/sec MVA(P1/2t): 2.6 cm2 Ao V2 VTI: 39.5 cm LV V1 VTI: 29.9 cm AV (velocity ratio): 0.76 PA V2 max: 114.8 cm/sec TR max kia: 240.4 cm/sec PA V2 mean: 84.6 cm/sec TR max P.1 mmHg ECHO/Echo Complete Interpretation Summary The estimated ejection fraction is 60-65 %. Grade II Diastolic dysfunction No signicant changes from previous echo Ordering Physician: Kal Wright Performed By: Florencio Gonzalez RCS 01/19/24 1321 Date Se Ellis MD CC: Dr. Kal Wright DO; Dr. Macario Allen DO; Dr. Brandon March MD Date Dictated: 01/19/2443 Date Transcribed: 01/19/24 132 Patient Representative: Signed Normal [facility] Emergency Department Summary on 01-18-2024 Emergency Department Summary [facility] Medical Records Department [address] [place] [address] Emergency Department Summary 01/18/24 MR#: [id number] Acct: [id number] Name: CARLEY SPRAGUE Rep #: [id number] : 1940 83 From: Florencio Camargo DO PCP: Dr. Brandon March MD Status:ADM IN Location: ICU ICU05-1 HPI History of Present Illness Chief Complaint: Nausea/Vomiting Narrative Narrative: Chief complaint and HPI: Hypertension. 83-year-old female with history of hypertension, HLD, CKD, CVA not on anticoagulation presents for evaluation of hypertension. Patient states that at baseline her hypertension is poorly controlled. She states that she recently saw her physician approximately 4 weeks ago and was taken off of her 100 mg of losartan and placed on a different medication. She cannot tell me what that medication was. She states she continued her 25 mg hydrochlorothiazide and her 0.3 mg weekly transdermal patch. Patient states that she has baseline dry mouth. She states that this worsened after she was switched off her losartan and placed on the different medication. She states that she did not like this so she stopped taking the new medication and instead went back on her 100 mg of losartan about 1 week ago. Patient states that she got up from a seated position this evening and felt lightheaded and nauseous. She states she took her blood pressure and it was 238/105. She states that she took 0.2 mg of clonidine but immediately threw it up so she does not think it took effect. Patient states her blood pressure did not improve which is why she presents. She states her lightheadedness has improved. Did receive Zofran via EMS. Denies any headache, vision changes, URI symptoms, neck pain, chest pain, shortness of breath, abdominal pain, dysuria, numbness or tingling, neurological deficit. Review of systems: See HPI Medications: As listed on the chart Allergies: As listed on the chart PFSH: Per chart Vital signs: As listed on the chart. Reviewed. Physical exam: Gen: A O x3, NAD Head: Normocephalic, atraumatic Eyes: No sclera icterus, conjunctiva clear, PERRL, EOMI ENT: Moist mucous membranes Neck: Trachea midline, No JVD CV: RRR, no murmurs, no peripheral edema Resp: Lungs CTA BL, no w/r/c GI: Abd soft, non-distended, non-tender, no r/r/g Musc: Full ROM, no deformity Skin: Warm, dry Neuro: Alert, oriented, grossly intact, sensation intact Psych: Cooperative, appropriate mood and affect [facility] Medical History Ambulates with cane Anemia Arthritis Back pain Cardiology follow-up encounter Cataract Chronic kidney disease, stage 3a Depression Difficulty swallowing Disorder of vitamin B12 Esophagitis Essential (primary) hypertension Family history of colon cancer Fibromyalgia Gastric reflux Gastritis 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 Hiatal hernia High cholesterol History of diverticulitis History of echocardiogram History of edema History of hiatal hernia History of IBS History of renal disease History of steroid therapy History of stress test Hx of mitral valve prolapse Hyperlipidemia Hypertension Leg cramps Non-smoker Personal history of colonic polyps Shortness of breath on exertion Stroke/cerebrovascular accident Tubular adenoma of colon Wears contact lenses Wears glasses Weight loss Home Medications ???Medication ???Instructions ???Recorded ???Last Taken ???Type acetaminophen 325 mg tablet 650 mg (2 x 325 mg) PO Q6H PRN PRN 11/30/17 Unknown Rx Mild Pain (0-3/10)/Headache loratadine 10 mg tablet 10 mg PO DAILY PRN ALLERGIES 11/30/17 Unknown Rx losartan 100 mg tablet 100 mg PO DAILY #30 tabs 11/30/17 07/26/21 08:15 Rx paroxetine HCl 20 mg tablet 20 mg PO DAILY #30 tabs 11/30/17 Unknown Rx albuterol sulfate 90 mcg/actuation 1 puff inhalation Q6H PRN SOB 07/25/21 Unknown History aerosol inhaler cholecalciferol (vitamin D3) 25 25 mcg PO DAILY 07/25/21 Unknown History mcg (1,000 unit) capsule (Vitamin D3) hydrochlorothiazide 25 mg tablet 25 mg PO DAILY 07/25/21 Unknown History multivitamin 1 tab PO DAILY SUPPLEMENT 12/26/21 Unknown History dexlansoprazole 60 mg 60 mg PO BID #120 caps 12/30/21 Unknown Rx capsule,biphase delayed release (Dexilant) clonidine 0.3 mg/24 hr weekly 1 patch transdermal QWEEK 07/05/23 Unknown History transdermal patch clonidine HCl 0.1 mg tablet 0.1 mg PO DAILY PRN high blood 07/05/23 Unknown History pressure inclisiran 284 mg/1.5 mL 284 mg subcut [id number] 07/05/23 Unknown History subcutaneous syringe linaclotide 72 mcg capsule 72 mcg PO DAILY 07/05/23 Unknown History (Linzess) Allergy/AdvReac Type Severity Reaction Status Date / Time adhesive (more content not included)... Normal [facility] Epithelial cells.squamous LM Ql (Urine sed)Ordered By: Florencio Camargo on 01-18-2024 Epithelial cells.squamous LM.HPF (Urine sed) [#/Area] 0 /[HPF] 5-10 [facility] Folic acid measurementOrdere d By: Kal Nolan on 01-18-2024 Folate 22.40 ng/mL 3.1-55.4 [facility] Glucose Ql (U)Ordered By: Toby Camargo on 01-18-2024 Urine Glucose (UA) Normal mg/dl Normal [facility] H AND P Exam - [facility] 01-18-2024 H&P Exam - Hospitalist [facility] Medical Records Department [address] [place] [address] H P Exam - Hospitalist 01/18/24 2218 MR#: [id number] Acct: [id number] Name: CARLEY SPRAGUE Rep #: [id number] : 1940 83 From: Kal Wright DO PCP: Dr. Brandon March MD Status:ADM IN Location: ICU ICU[address] [place] [address] - General General Date of Admission: 01/18/24 Date of Service: 01/18/24 Chief Complaint: Highly Elevated Blood Pressure with Nausea and Vomiting. HPI Narrative CARLEY SPRAGUE, is a 83 F with a past medical history of poorly-controlled hypertension; on losartan, hydrochlorothiazide and clonidine patch with as needed oral clonidine for blood pressure spikes, hyperlipidemia; on inclisiran injections q. 6 months, overweight; with BMI of 29.7 this admission, history of CVA; with hemiplegia and hemiparesis, history of mitral valve prolapse, CKD; stage IIIa, history of anemia, history of B12 deficiency, history of tubular adenoma of colon, history of diverticulitis, history of IBS of constipation-type; on linaclotide, history of cataracts, history of leg cramps, hiatal hernia, GERD; with history of esophagitis and gastritis on dexlansoprazole 60 mg p.o. BID, history of depression; on paroxetine, history of fibromyalgia, history of previous cardiac catheterization, history of CTS of the Right hand; s/p release, history of hysterectomy, history of cholecystectomy, history of varicose veins; s/p sclerotherapy, history of D C, listed allergy to valsartan (rash), listed allergy to amlodipine (?), listed allergy to enalapril (?), listed allergy to minoxidil (?), listed allergy to risedronate (?) and OA; with chronic back pain and history of TKR who presents to [facility] ER complaining of highly elevated blood pressure of 238/105 mmHg at home along with nausea and vomiting. Ms. Sprague reports her symptoms began approximately 4 weeks ago when she was seen by one of her physicians for uncontrolled hypertension and she was taken off of her losartan and placed on a different medication which she does not remember. She continued to take her hydrochlorothiazide and clonidine 0.3 mg TTS patch weekly. She suspected the new medication caused her to have a dry mouth so she stopped taking this medication and went back on her 100 mg of losartan daily approximately 1 week ago. Then earlier this evening she got up from a seated position and felt lightheaded and nauseous. She then took her blood pressure which was highly elevated at 238/105 mmHg so she then tried to take oral clonidine and immediately vomited up this medication so she then decided to activate EMS to be brought in for further evaluation and treatment. EMS did give IV Zofran en- route. She denies associated headache, visual changes, upper respiratory infection symptoms, neck pain, chest pain, shortness of breath, abdominal pain, dysuria, numbness or tingling or new focal neurologic deficits. In the ER she was noted to have an initial blood pressure of 246/138 mmHg and was emergently treated with IV hydralazine followed by oral clonidine with blood pressure dropping to 180/74 mmHg complicated by a mildly elevated troponin of 113 pg/mL present on admission consistent with Hypertensive Emergency causing suspected Acute Cardiac Strain complicated by laboratory evidence of severe Leukocytosis of 19.7 K present on admission with negative chest x-ray and unremarkable urinalysis with initial clinical suspicion of acute stress response to recent illness compounded by laboratory evidence of hypokalemia of 3.4 mmol/L present on admission with clinical evidence of intractable nausea and vomiting with corresponding CT of the abdomen and pelvis confirming evidence of gastritis, esophagitis and suspected PUD and she was then admitted to the ICU for ongoing care for status expected to extend beyond 2 midnights. [facility] Medical History Personal history of colonic polyps Disorder of vitamin B12 Hyperlipidemia Essential (primary) hypertension Chronic kidney disease, stage 3a 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 Tubular adenoma of colon Esophagitis Gastritis Wears contact lenses Wears glasses Fibromyalgia Depression History of steroid therapy Ambulates with cane Arthritis History of renal disease Anemia High cholesterol Back pain Difficulty swallowing History of hiatal hernia History of IBS History of diverticulitis Hx of mitral valve prolapse Gastric reflux Non-smoker Shortness of breath on exertion Leg cramps History of edema Hypertension Cardiology follow-up encounter History of echocardiogram History of stress test Stroke/cerebrovascular accident Hiatal hernia Family history of colon cancer Weight loss Cataract Home Medications ???Medicatio (more content not included)... Normal [facility] High density lipoprotein (HD L) measurementOrdered By: Kal Nolan on 01-18-2024 Cholesterol in HDL [Mass/Vol] 53 mg/dL >40 [facility] Comment on above: The drugs N-Acetylcy steine and Metamizole may falsely depress this assay. Reference Range HDL <40 mg/dL Low HDL Cholesterol HDL >or= 60 mg/dL High HDL Cholesterol International normalized rat io (INR) calculationOrdered By: Florencio Camargo on 01-18-2024 INR Coag (Bld) [Relative time] 1.0 {INR} [facility] Ketones Test strip Ql (U)Ord ered By: Florencio Camargo on 01-18-2024 Ketones Ql (U) 15 mg/dl High Negative [facility] L501.4020on 01-18-2024 TROPONIN-I HS 113 pg/mL High 3.0-54.0 [facility] Comment on above: Order Comment: 'TROP ' Serial specimen #1, #2 or #3: 2 Result Comment: Plea se Note: New Test Units and Gender Specific Reference Ranges. For more information see Policy Stat Procedure [place] High Sensitivity Troponin (TNIH) and attachments. Performed By: #### L 501.4020 #### [facility] [address] [place], [address] L501.5425on 01-18-2024 TROPONIN-I HS 107 pg/mL High 3.0-54.0 [facility] Comment on above: Order Comment: 1 Y Result Comment: [place] Note: New Test Units and Gender Specific Reference Ranges. For more information see Policy Stat Procedure [place] High Sensitivity Troponin (TNIH) and attachments. Performed By: #### L 100.0100, L501.5425, L503.6620, L300.4310, L300.3900, L500.2500 #### [facility] [address] [place], [place], [id number] Laboratory - Hematology and Cell countsOrdered By: Florencio Camargo on 01-18-2024 Anisocytosis Ql (Bld) 1+ [facility] Low density lipoprotein (LDL ) cholesterol measurementOrdered By: Kal Nolan on 01-18-2024 Cholesterol in LDL [Mass/Vol] 103 mg/dL 0-130 [facility] Macrocytes Ql (Bld)Ordered B y: Florencio Camargo on 01-18-2024 Macrocytosis 1+ [facility] Manual differential comment Matthew (Bld) [Interp]Ordered By: Florencio Camargo on 01-18-2024 Differential Comment SEE COMMENT [facility] Comment on above: LYMPHOCYTOSIS NOTED Microscopic analysis of urin e for red blood cells (RBC)Ordered By: Florencio Camargo on 01-18-2024 Urine RBC 0-5 SEEN /hpf 0-5 [facility] Mucus LM Ql (Urine sed)Order ed By: Florencio Camargo on 01-18-2024 Mucus Ql (Urine sed) 1+ /hpf [facility] Nitrite Test strip Ql (U)Ord ered By: Florencio Camargo on 01-18-2024 Nitrite Ql (U) Negative Negative [facility] Ovalocytes LM Ql (Bld)Ordere d By: Florencio Camargo on 01-18-2024 Ovalocytes RARE [facility] Partial Thromboplast Timeon 01-18-2024 aPTT Coag (Bld) [Time] 23.6 s Low 24.1-36.2 [facility] Comment on above: Performed By: #### L 100.0100, L501.5425, L503.6620, L300.4310, L300.3900, L500.2500 #### [facility] [address] [place], [address] Platelets LM Ql (Bld)Ordered By: Florencio Camargo on 01-18-2024 Platelet Estimate ADEQUATE ADEQ [facility] Protein Test strip Ql (U)Ord ered By: Florencio Camargo on 01-18-2024 Protein Ql (U) 100 mg/dl High Negative [facility] Prothrombin Time w/INRon INR Coag (PPP) [Relative time] 1.0 {INR} Normal [facility] Comment on above: Performed By: #### L 100.0100, L501.5425, L503.6620, L300.4310, L300.3900, L500.2500 #### [facility] [address] [place], [address] PT Coag (PPP) [Time] 12.9 s Normal 11.7-14.9 [facility] Comment on above: Performed By: #### L 100.0100, L501.5425, L503.6620, L300.4310, L300.3900, L500.2500 #### [facility] [address] [place], [address] Prothrombin timeOrdered By: Florencio Camargo on 01-18-2024 PT Coag (PPP) [Time] 12.9 s 11.7-14.9 [facility] RBC morphology finding Nom ( Bld)Ordered By: Florencio Camargo on 01-18-2024 Red Blood Cell Morphology N CHROM NORMAL NORM C&C [facility] Serum or plasma cholesterol measurement (mass/volume)Ordered By: Kal Nolan on 01-18-2024 Cholesterol [Mass/Vol] 184 mg/dL <200 [facility] Comment on above: <200 mg/dL Desirable 200-240 mg/dL Borderline >240 mg/dL High Risk TSH QnOrdered By: Kal bradley on 01-18-2024 Thyroid Stimulating Hormone (TSH) 0.827 uIU/mL 0.358-3.740 [facility] Triglycerides measurementOrd ered By: Kal Nolan on 01-18-2024 Triglyceride [Mass/Vol] 140 mg/dL <199 [facility] Comment on above: The drugs N-Acetylcy steine and Metamizole may falsely depress this assay.Serum Triglycerides Reference Interval Normal <150 mg/dL Borderline high 150 - 199 mg/dL High 200 - 499 mg/dL Very High > or = 500 mg/dL Troponin IOrdered By: Florencio Camargo on 01-18-2024 Troponin I High Sensitivity 113 pg/mL High 3.0-54.0 [facility] Comment on above: Please Note: [place] t Units and Gender Specific Reference Ranges. For more information see Policy Stat Procedure [place] High Sensitivity Troponin (TNIH) and attachments. Urinalysis, Completeon 01-17 AMORPHOUS 1+ Normal [facility] Comment on above: Order Comment: LYNETTE CTOR TO SPECIFY Performed By: #### L 400.0001 #### [facility] [address] [place], [address] BACTERIA RARE Normal None Seen [facility] Comment on above: Order Comment: LYNETTE CTOR TO SPECIFY Performed By: #### L 400.0001 #### [facility] [address] [facility] [place], [place], [id number] Mucus Ql (Urine sed) 1+ /hpf Normal [facility] Comment on above: Order Comment: LYNETTE CTOR TO SPECIFY Performed By: #### L 400.0001 #### [facility] [address] [place], [place], [id number] RBC 0-5 SEEN Normal 0-5 [facility] Comment on above: Order Comment: LYNETTE CTOR TO SPECIFY Performed By: #### L 400.0001 #### [facility] [address] [place], [address] WBC 0-5 SEEN Normal 0-5 [facility] Comment on above: Order Comment: LYNETTE CTOR TO SPECIFY Performed By: #### L 400.0001 #### [facility] [address] [place], [place], [id number] EPI,SQUAMOUS 0 SEEN Normal 5-10 [facility] Comment on above: Order Comment: LYNETTE CTOR TO SPECIFY Performed By: #### L 400.0001 #### [facility] [address] [place], [place], [id number] Urine blood detectionOrdered By: Florencio Camargo on 01-18-2024 Urine Occult Blood 10 /ul High Negative [facility] Urine clarityOrdered By: Tomas Camargo on 01-18-2024 Clarity (U) Clear Clear [facility] Urine color determinationOrd ered By: Florencio Camargo on 01-18-2024 Color (U) Yellow Yellow [facility] Urine leukocyte esterase det ection by dipstickOrdered By: Florencio Camargo on 01-18-2024 Leukocyte esterase Test strip Ql (U) Negative Negative [facility] Urine pHOrdered By: Florencio Bourne on 01-18-2024 pH (U) 6.0 [pH] 5.0 - 8.0 [facility] Urine specific gravity measu rementOrdered By: Florencio Camargo on 01-18-2024 Specific gravity (U) [Rel density] 1.025 1.002-1.030 [facility] Urobilinogen Ql (U)Ordered B y: Florencio Camargo on 01-18-2024 Urine Urobilinogen Normal mg/dl Normal [facility] Very low density lipoprotein (VLDL) cholesterol measurementOrdered By: Kal Nolan on 01-18-2024 VLDL Cholesterol 28 mg/dL 5-40 [facility] White blood cell countOrdere d By: Florencio Camargo on 01-18-2024 Urine WBC 0-5 SEEN /hpf 0-5 [facility] aPTT Coag (PPP) [Time]Ordere d By: Florencio Camargo on 01-18-2024 aPTT Coag (Bld) [Time] 23.6 s Low 24.1-36.2 [facility] CBC W/Diff, Automatedon 11-0 -2023 Absolute Lymph 3.58 X10 3/uL Normal 0.83-4.51 [facility] Comment on above: Performed By: #### L 100.0100, L501.5425, L503.6620, L300.4310, L300.3900, L500.2500 #### [facility] [address] [place], [address] Absolute Neut 4.4 X10 3/uL Normal 2.0-7.7 [facility] Comment on above: Performed By: #### L 100.0100, L501.5425, L503.6620, L300.4310, L300.3900, L500.2500 #### [facility] [address] [place], [address] Basophils/100 WBC (Bld) 0.6 % Normal 0-1 [facility] Comment on above: Performed By: #### L 100.0100, L501.5425, L503.6620, L300.4310, L300.3900, L500.2500 #### [facility] [address] [place], [address] Eosinophils/100 WBC (Bld) 3.9 % Normal 0-5 [facility] Comment on above: Performed By: #### L 100.0100, L501.5425, L503.6620, L300.4310, L300.3900, L500.2500 #### [facility] [address] [place], [address] Erythrocyte distribution width (RBC) [Ratio] 11.9 % Normal 11.6-14.6 [facility] Comment on above: Performed By: #### L 100.0100, L501.5425, L503.6620, L300.4310, L300.3900, L500.2500 #### [facility] [address] [place], [address] Hematocrit (Bld) [Volume fraction] 42.7 % Normal 37-47 [facility] Comment on above: Performed By: #### L 100.0100, L501.5425, L503.6620, L300.4310, L300.3900, L500.2500 #### [facility] [address] [place], [address] Hemoglobin (Bld) [Mass/Vol] 13.8 g/dL Normal 12.0-15.0 [facility] Comment on above: Performed By: #### L 100.0100, L501.5425, L503.6620, L300.4310, L300.3900, L500.2500 #### [facility] [address] [place], [address] IG% 0.300 Normal 0.0-0.9 [facility] Comment on above: Result Comment: IG% - Immature Granulocytes (promyelocytes, myelocytes and metamyelocytes) > 1% indicates that a LEFT SHIFT is Present. Performed By: #### L 100.0100, L501.5425, L503.6620, L300.4310, L300.3900, L500.2500 #### [facility] [address] [place], [address] Lymphocytes/100 WBC (Bld) 38.6 % Normal 19-41 [facility] Comment on above: Performed By: #### L 100.0100, L501.5425, L503.6620, L300.4310, L300.3900, L500.2500 #### [facility] [address] [place], [address] MCH (RBC) [Entitic mass] 29.9 pg Normal 27.0-32.0 [facility] Comment on above: Performed By: #### L 100.0100, L501.5425, L503.6620, L300.4310, L300.3900, L500.2500 #### [facility] [address] [place], [address] MCHC (RBC) [Mass/Vol] 32.3 g/dL Normal 32-36 [facility] Comment on above: Performed By: #### L 100.0100, L501.5425, L503.6620, L300.4310, L300.3900, L500.2500 #### [facility] [address] [place], [address] MCV (RBC) [Entitic vol] 92.4 fL Normal 81-99 [facility] Comment on above: Performed By: #### L 100.0100, L501.5425, L503.6620, L300.4310, L300.3900, L500.2500 #### [facility] [address] [place], [address] Monocytes/100 WBC (Bld) 8.7 % Normal 0-10 [facility] Comment on above: Performed By: #### L 100.0100, L501.5425, L503.6620, L300.4310, L300.3900, L500.2500 #### [facility] [address] [place], [address] Neutrophils/100 WBC (Bld) 47.9 % Normal 47-70 [facility] Comment on above: Performed By: #### L 100.0100, L501.5425, L503.6620, L300.4310, L300.3900, L500.2500 #### [facility] [address] [place], [address] Nucleated RBC (Bld) [#/Vol] 0 10*3/uL Normal 0-5 [facility] Comment on above: Performed By: #### L 100.0100, L501.5425, L503.6620, L300.4310, L300.3900, L500.2500 #### [facility] [address] [place], [address] Platelet mean volume (Bld) [Entitic vol] 9.9 fL Normal 6.2-12.0 [facility] Comment on above: Performed By: #### L 100.0100, L501.5425, L503.6620, L300.4310, L300.3900, L500.2500 #### [facility] [address] [place], [address] Platelets (Bld) [#/Vol] 284 10*3/uL Normal 150-450 [facility] Comment on above: Performed By: #### L 100.0100, L501.5425, L503.6620, L300.4310, L300.3900, L500.2500 #### [facility] [address] [place], [address] RBC (Bld) [#/Vol] 4.62 10*6/uL Normal 4.2-5.4 [facility] Comment on above: Performed By: #### L 100.0100, L501.5425, L503.6620, L300.4310, L300.3900, L500.2500 #### [facility] [address] [place], [address] RDW SD 40.5 fl Normal 35.1-43.9 [facility] Comment on above: Performed By: #### L 100.0100, L501.5425, L503.6620, L300.4310, L300.3900, L500.2500 #### [facility] [address] [place], [address] WBC (Bld) [#/Vol] 9.3 10*3/uL Normal 4.4-11.0 [facility] Comment on above: Performed By: #### L 100.0100, L501.5425, L503.6620, L300.4310, L300.3900, L500.2500 #### [facility] [address] [place], [address] Comprehensive Metabolic Prof ilon 12-20-2023 Albumin [Mass/Vol] 3.6 g/dL Normal 3.2-5.0 [facility] Comment on above: Performed By: #### L 100.0100, L501.5425, L503.6620, L300.4310, L300.3900, L500.2500 #### [facility] [address] [place], [address] Albumin/Globulin [Mass ratio] 1.2 {ratio} Normal 0.9-2.4 [facility] Comment on above: Performed By: #### L 100.0100, L501.5425, L503.6620, L300.4310, L300.3900, L500.2500 #### [facility] [address] [place], [address] ALK P 74 U/L Normal 45-117 [facility] Comment on above: Performed By: #### L 100.0100, L501.5425, L503.6620, L300.4310, L300.3900, L500.2500 #### [facility] [address] [place], [address] ALT [Catalytic activity/Vol] 23 U/L Normal 13-56 [facility] Comment on above: Performed By: #### L 100.0100, L501.5425, L503.6620, L300.4310, L300.3900, L500.2500 #### [facility] [address] [place], [address] AST [Catalytic activity/Vol] 28 U/L Normal 15-37 [facility] Comment on above: Performed By: #### L 100.0100, L501.5425, L503.6620, L300.4310, L300.3900, L500.2500 #### [facility] [address] [place], [address] Bilirubin [Mass/Vol] 0.70 mg/dL Normal 0.20-1.00 [facility] Comment on above: Result Comment: For patients on eltrombopag therapy, use of Dimension [place] TBIL is not recommended. Performed By: #### L 100.0100, L501.5425, L503.6620, L300.4310, L300.3900, L500.2500 #### [facility] [address] [place], [address] BUN/CRE 14.9 RATIO Normal 10-20 [facility] Comment on above: Performed By: #### L 100.0100, L501.5425, L503.6620, L300.4310, L300.3900, L500.2500 #### [facility] [address] [place], [address] CA,Total 9.8 mg/dL Normal 8.5-10.1 [facility] Comment on above: Performed By: #### L 100.0100, L501.5425, L503.6620, L300.4310, L300.3900, L500.2500 #### [facility] [address] [place], [address] Chloride [Moles/Vol] 110 mmol/L High 98-107 [facility] Comment on above: Performed By: #### L 100.0100, L501.5425, L503.6620, L300.4310, L300.3900, L500.2500 #### [facility] [address] [place], [address] CO2 [Moles/Vol] 27.0 mmol/L Normal 21.0-32.0 [facility] Comment on above: Performed By: #### L 100.0100, L501.5425, L503.6620, L300.4310, L300.3900, L500.2500 #### [facility] [address] [place], [address] Creatinine [Mass/Vol] 1.01 mg/dL Normal 0.55-1.02 [facility] Comment on above: Result Comment: The validity of the calculated GFR GFRAA in patients over 70 years has not been determined. Clinical correlation is essential. Performed By: #### L 100.0100, L501.5425, L503.6620, L300.4310, L300.3900, L500.2500 #### [facility] [address] [place], [address] EST GFR - AA 67 mL/min Normal >60 [facility] Comment on above: Result Comment: Afri can Haitian GFR Calc Performed By: #### L 100.0100, L501.5425, L503.6620, L300.4310, L300.3900, L500.2500 #### [facility] [address] [place], [address] GAP 3 Low 5-15 [facility] Comment on above: Performed By: #### L 100.0100, L501.5425, L503.6620, L300.4310, L300.3900, L500.2500 #### [facility] [address] [place], [address] GFR/1.73 sq M.predicted among non-blacks MDRD (S/P/Bld) [Vol rate/Area] 55 mL/min/{1.73_m2} Low >60 [facility] Comment on above: Result Comment: Non- GFR Calc Performed By: #### L 100.0100, L501.5425, L503.6620, L300.4310, L300.3900, L500.2500 #### [facility] [address] [place], [address] Globulin (S) [Mass/Vol] 2.9 g/dL Normal 2.2-4.2 [facility] Comment on above: Performed By: #### L 100.0100, L501.5425, L503.6620, L300.4310, L300.3900, L500.2500 #### [facility] [address] [place], [address] Glucose [Mass/Vol] 92 mg/dL Normal 74-106 [facility] Comment on above: Performed By: #### L 100.0100, L501.5425, L503.6620, L300.4310, L300.3900, L500.2500 #### [facility] [address] [place], [address] Potassium [Moles/Vol] 4.4 mmol/L Normal 3.5-5.1 [facility] Comment on above: Performed By: #### L 100.0100, L501.5425, L503.6620, L300.4310, L300.3900, L500.2500 #### [facility] [address] [place], [address] Sodium [Moles/Vol] 140 mmol/L Normal 136-145 [facility] Comment on above: Performed By: #### L 100.0100, L501.5425, L503.6620, L300.4310, L300.3900, L500.2500 #### [facility] [address] [place], [address] T PROT 6.5 g/dL Normal 6.4-8.2 [facility] Comment on above: Performed By: #### L 100.0100, L501.5425, L503.6620, L300.4310, L300.3900, L500.2500 #### [facility] [address] [place], [address] Urea nitrogen [Mass/Vol] 15 mg/dL Normal 7-18 [facility] Comment on above: Performed By: #### L 100.0100, L501.5425, L503.6620, L300.4310, L300.3900, L500.2500 #### [facility] [address] [place], [address] Thyroid Stim Hormone (TSH)on 12-20-2023 TSH 1.110 uIU/mL Normal 0.358-3.740 [facility] Comment on above: Performed By: #### L 100.0100, L501.5425, L503.6620, L300.4310, L300.3900, L500.2500 #### [facility] [address] [place], [address] Vitamin D,25 Hydroxyon 12-19 Vitamin D 25-OH 30.7 ng/mL Normal [facility] Comment on above: Result Comment: Cristina min D 25(OH) Status Range Deficiency <20 ng/mL (50nmol/L) Insufficiency 20 - 30 ng/mL (50 - 75 nmol/L) Sufficiency 30 - 100 ng/mL (75 - 250 nmol/L) Toxicity >100 ng/mL (>250 nmol/L) Performed By: #### L 100.0100, L501.5425, L503.6620, L300.4310, L300.3900, L500.2500 #### [facility] [address] [place], [address] Wrist 2 Viewson 09-03-2023 Wrist 2 Views [facility] Imaging Services [address] [place] [address] Wrist 2 Views MR#: [id number] Acct: [id number] Name: CARLEY SPRAGUE Rep #: [id number] : 1940 F 83 From: Austin Jacobo MD PCP: Dr. Brandon March MD Status: REG CLI Study: Wrist 2 Views Date of Exam: 09/03/23 Exam# [id number] Ordering Dr: Brandon March MD [id number] STUDY: X-RAY - RIGHT WRIST REASON FOR EXAM: Female, 83 years old. PAIN AND SWELLING OF RIGHT FOREARM TECHNIQUE: 2 views of the right wrist were obtained. COMPARISON: None. FINDINGS: Normal visualized distal radius and ulna. Normal radiocarpal articulation. 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 Intact carpal bones. Normal carpal articulations. There is osseous fusion across the carpometacarpal articulation of the thumb. Normal second through fifth carpometacarpal articulations. Normal visualized metacarpal bones. There is degenerative arthrosis of the MCP joints and visualized interphalangeal joints of the fingers. The soft tissue structures are unremarkable. There is no demonstrated acute fracture. 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 Osseous fusion across the first CMC joint. Degenerative arthrosis of the MCP joints and visualized interphalangeal joints of the fingers. Electronically Signed: Austin Jacobo MD at 9:02 EDT , CC: Dr. Brandon March MD Patient Representative: Signed Normal [facility] Echo Completeon 08-06-2023 Echo Complete [facility] [address] [place] [address] Echo Complete 08/06/23 1052 MR#: [id number] Acct: [id number] Name: CARLEY SPRAGUE Rep #: [id number] : 1940 83 From: Bennie Landrum MD Attending Dr: NAIMA Akers Status: REG CLI Ordering Dr: Jazmyn Cabrera Date: 07/14 06/05 Location: CVS Sex: F C Admitted: Reason For Study: MURMUR Procedure This was a 2D Doppler, Color Flow transthoracic echocardiogram. Exam performed in department. Left Ventricle Normal LV size. Left ventricular systolic function is normal. The left ventricular ejection fraction is 70 %. Stage 1 diastolic dysfunction. No regional wall motion abnormalities noted. Right Ventricle Normal RV size. Normal systolic function. Mitral Valve Normal mitral valve. Tricuspid Valve Normal tricuspid valve. Aortic Valve Trisinus/trileaflet aortic valve. Pulmonic Valve Normal pulmonic valve. Great Vessels Normal aortic root. Pericardium/Pleural No pericardial effusion. MMode/2D Measurements Calculations LVIDd: 4.2 cm IVSd: 1.3 cm LVOT diam: 1.9 cm LVIDs: 2.6 cm LVPWd: 1.1 cm LVOT area: 2.9 cm2 RVDd: 2.9 cm FS: 37.7 % Ao root diam: 2.7 cm LAV(MOD-bp): 44.5 ml LVAd ap4: 17.3 cm2 LAV(MOD-bp) Indexed: 26.2 ml/m2 LVLd ap4: 6.1 cm LAV(MOD-sp2): 48.8 ml EDV(MOD-sp4): 40.0 ml LAV(MOD-sp4): 39.4 ml EDV(sp4-el): 41.3 ml LVAs ap4: 8.8 cm2 LVLs ap4: 5.6 cm ESV(MOD-sp4): 12.6 ml ESV(sp4-el): 11.7 ml EF(MOD-sp4): 68.6 % EF(sp4-el): 71.5 % SV(MOD-sp4): 27.4 ml SV(MOD-sp2): 23.3 ml LVAd ap2: 16.5 cm2 LVLd ap2: 6.4 cm EDV(MOD-sp2): 34.5 ml EDV(sp2-el): 36.1 ml LVAs ap2: 8.4 cm2 LVLs ap2: 5.3 cm ESV(MOD-sp2): 11.2 ml ESV(sp2-el): 11.1 ml EF(MOD-sp2): 67.6 % SV(sp4-el): 29.5 ml LA A4 area: 17.0 cm2 LA dimension(2D): 4.0 cm TAPSE: 1.8 cm RA A4 area: 11.5 cm2 Time Measurements MV dec time: 0.33 sec Doppler Measurements Calculations MV E max kia: 67.7 cm/sec Lat Peak E' Kia: 6.3 cm/sec Med Peak E' Kia: 4.5 cm/sec MV A max kia: 107.7 cm/sec E/E' lat: 10.8 E/E' med: 15.1 MV E/A: 0.63 MV dec slope: 203.4 cm/sec2 Ao V2 max: 123.5 cm/sec LV V1 max: 110.5 cm/sec Ao max P.1 mmHg LV V1 max P.9 mmHg Ao V2 mean: 101.1 cm/sec LV V1 mean P.0 mmHg Ao mean P.2 mmHg LV V1 mean: 83.8 cm/sec Ao V2 VTI: 26.0 cm LV V1 VTI: 22.7 cm AV (velocity ratio): 0.87 MIKE(I,D): 2.6 cm2 MIKE(V,D): 2.6 cm2 SV(LVOT): 66.4 ml PA V2 max: 94.2 cm/sec PA max PG (full): 0.09 mmHg ECHO/Echo Complete Interpretation Summary Normal LV size. Left ventricular systolic function is normal. The left ventricular ejection fraction is 70 %. Stage 1 diastolic dysfunction. Trisinus/trileaflet aortic valve. Ordering Physician: Jazmyn Cabrera Referring Physician: Brandon March Chi Performed By: Zacarias, Sarai, RDCS 08/06/23 1609 Date Bennie Landrum MD CC: Dr. Brandon Mrach MD; NAIMA Akers Date Dictated: 08/06/23 1052 Date Transcribed: 08/06/23 1609 Patient Representative: Signed Normal [facility] M100.678on 07-12-2023 M100.678 SARS-CoV-2 (COVID 19 ) Negative INFLUENZA A Negative INFLUENZA B Negative RSV PCR Negative [facility] Comment on above: Performed By: #### L 100.0100, L501.5425, L503.6620, L300.4310, L300.3900, L500.2500 #### [facility] [address] [place], [address] Cardiology Visit Reporton Cardiology Visit Report [facility] [address] [place], [place] [address] OFFICE VISIT Date of Service: 07/05/23 MR#: [id number] Acct: [id number] Name: CARLEY SPRAGUE Rep #: [id number] : 1940 Provider: NAIMA Garcia Age/Sex: 83/F Location: [facility] Status: Signed [facility] History of Present Illness Details: Carley Sprague is an 83-year-old lady with a previous history of mild coronary artery disease, hypertension, hyperlipidemia, palpitations and a hiatal hernia. In 2010 she underwent a left heart catheterization demonstrating an ejection fraction of 70%, left anterior descending artery with 10% stenosis, first diagonal vessel with 40 to 50% stenosis circumflex artery with 10% stenosis in right coronary artery with 10 to 20% stenosis. Echocardiogram in 2016 demonstrating an ejection fraction of 65% with moderate concentric low ventricular hypertrophy and a pharmacologic myocardial perfusion stress test followed by a treadmill stress test with no evidence of ischemia at 7 metabolic equivalents. pt has been having issues with her BP. PCP did switch her to a clonidine patch. This has helped. She is having issues with her shoulder. Her left arm/hand going numb at night. He also switched to her an injectable for her BP. Her plavix was also stopped. She sts that she feels better. Intake Vital Signs 07/20/22 10:59 07/05/23 14:59 Height 5 ft 2 in 5 ft 2 in Weight: 151 lb BMI 27.6 BP 115/63 Blood Pressure Location Lt brachial Position Sitting Respiration 18 Pulse 86 Pulse Source Monitor Intake Visit Reasons: 1 Y FU [employer] Required: No Is patient in pain?: No Allergies adhesive tape Allergy (Verified 07/05/23 14:59) Other valsartan Allergy (Verified 07/05/23 14:59) Rash amlodipine Adverse Reaction (Verified 07/05/23 14:59) Other enalaprilat (From Vasotec) Adverse Reaction (Verified 07/05/23 14:59) Other minoxidil Adverse Reaction (Verified 07/05/23 14:59) Other risedronate sodium (From Actonel) Adverse Reaction (Verified 07/05/23 14:59) Other Medications ???Medication ???Instructions ???Recorded ???Confirmed ???Type acetaminophen 325 mg tablet 650 mg (2 x 325 mg) PO Q6H PRN PRN 11/30/17 07/05/23 Rx Mild Pain (0-3/10)/Headache loratadine 10 mg tablet 10 mg PO DAILY PRN ALLERGIES 11/30/17 07/05/23 Rx losartan 100 mg tablet 100 mg PO DAILY #30 tabs 11/30/17 07/05/23 Rx paroxetine HCl 20 mg tablet 20 mg PO DAILY #30 tabs 11/30/17 07/05/23 Rx albuterol sulfate 90 mcg/actuation 1 puff inhalation Q6H PRN SOB 07/25/21 07/05/23 History aerosol inhaler cholecalciferol (vitamin D3) 25 25 mcg PO DAILY 07/25/21 07/05/23 History mcg (1,000 unit) capsule (Vitamin D3) hydrochlorothiazide 25 mg tablet 25 mg PO DAILY 07/25/21 07/05/23 History multivitamin 1 tab PO DAILY SUPPLEMENT 12/26/21 07/05/23 History dexlansoprazole 60 mg 60 mg PO BID #120 caps 12/30/21 07/05/23 Rx capsule,biphase delayed release (Dexilant) clonidine 0.3 mg/24 hr weekly 1 patch transdermal QWEEK 07/05/23 07/05/23 History transdermal patch clonidine HCl 0.1 mg tablet 0.1 mg PO DAILY PRN 07/05/23 07/05/23 History inclisiran 284 mg/1.5 mL 284 mg subcut [id number] 07/05/23 07/05/23 History subcutaneous syringe linaclotide 72 mcg capsule 72 mcg PO DAILY PRN 07/05/23 07/05/23 History (Linzess) Ejection fraction %: 60 Nurse's Note: Patient is on an injection for her cholesterol but does not know name of medication [facility] Medical History Ambulates with cane Anemia Arthritis Back pain Cardiology follow-up encounter Cataract Chronic kidney disease, stage 3a Depression Difficulty swallowing Disorder of vitamin B12 Esophagitis Essential (primary) hypertension Family history of colon cancer Fibromyalgia Gastric reflux Gastritis 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 Hiatal hernia High cholesterol History of diverticulitis History of echocardiogram History of edema History of hiatal hernia History of IBS History of renal disease History of steroid therapy History of stress test Hx of mitral valve prolapse Hyperlipidemia Hypertension Leg cramps Non-smoker Personal history of colonic polyps Shortness of breath on exertion Stroke/cerebrovascular accident Tubular adenoma of colon Wears contact lenses Wears glasses Weight loss Surgical History H/O adenoidectomy H/O dilation and curettage History of cardiac catheterization History of carpal tunnel surgery of right wrist History of cholecystectomy History of hysterectomy History of partial knee replacement History of tonsillectomy (more content not included)... Normal [facility] No Panel InformationOrdered By: Brandon March on 05-30-2023 Vitamin D 25-Hydroxy 33.8 ng/mL [facility] Comment on above: Vitamin D 25(OH) Sta tus Range Deficiency <20 ng/mL (50nmol/L) Insufficiency 20 - 30 ng/mL (50 - 75 nmol/L) Sufficiency 30 - 100 ng/mL (75 - 250 nmol/L) Toxicity >100 ng/mL (>250 nmol/L) Serum or plasma thyroid stim ulating hormone (TSH) measurement (units/volume)Ordered By: Brandon March on 05-30-2023 TSH Qn 0.86 uIU/mL 0.358-3.74 [facility] Absolute lymphocyte countOrd ered By: Brandon March on 05-16-2023 Lymphocytes Auto (Unsp spec) [#/Vol] 3.79 10*3/uL 0.83-4.51 [facility] Automated lymphocyte count a s percentage of total leukocytesOrdered By: Brandon March on 05-16-2023 Lymphocytes/100 WBC Auto (Unsp spec) 38.0 % 19-41 [facility] Basophil percentageOrdered B y: Brandon March on 05-16-2023 Basophils/100 WBC (Bld) 0.5 % 0-1 [facility] Chloride [Moles/Vol] 107 mmol/L 98-107 [facility] Eosinophils/100 WBC (Bld) 1.3 % 0-5 [facility] Glucose [Mass/Vol] 118 mg/dL 74-106 [facility] Comment on above: Fasting Glucose resu lt from 100 to 125 mg/dL suggests IMPAIRED HOMEOSTASIS per A.D.A. criteria. Hemoglobin (Bld) [Mass/Vol] 13.8 g/dL 12.0-15.0 [facility] Monocytes/100 WBC (Bld) 7.8 % 0-10 [facility] Neutrophils (Bld) [#/Vol] 5.2 10*3/uL 2.0-7.7 [facility] Neutrophils/100 WBC (Bld) 52.3 % 47-70 [facility] Potassium [Moles/Vol] 3.8 mmol/L 3.5-5.1 [facility] Sodium [Moles/Vol] 139 mmol/L 136-145 [facility] WBC (Bld) [#/Vol] 10.0 10*3/uL 4.4-11.0 [facility] Bilirubin Test strip Ql (U)O rdered By: Brandon March on 05-16-2023 Bilirubin Ql (U) Negative Negative [facility] Culture, urineOrdered By: Dony March on 05-16-2023 Bacteria identified Cx Nom (U) Mixed Gram Pos & Gram Neg Org [facility] Determination of erythrocyte mean corpuscular volume (MCV)Ordered By: Brandon March on 05-16-2023 MCV (RBC) [Entitic vol] 90.9 fL 81-99 [facility] Erythrocyte distribution wid th ratioOrdered By: Brandon March on 05-16-2023 Erythrocyte distribution width (RBC) [Ratio] 11.9 % 11.6-14.6 [facility] Erythrocyte distribution wid th standard deviationOrdered By: Brandon March on 05-16-2023 Erythrocyte distribution width (RBC) [Entitic vol] 39.5 fL 35.1-43.9 [facility] Hematocrit Auto (Bld) [Volum e fraction]Ordered By: Brandon March on 05-16-2023 Hematocrit (Bld) [Volume fraction] 40.9 % 37-47 [facility] Immature granulocytes/100 WB C Auto (Bld)Ordered By: Brandon March on 05-16-2023 Immature granulocytes/100 WBC (Bld) 0.100 % 0.0-0.9 [facility] Comment on above: IG% - Immature Granu locytes (promyelocytes, myelocytes and metamyelocytes) > 1% indicates that a LEFT SHIFT is Present. Ketones Test strip Ql (U)Ord ered By: Brandon March on 05-16-2023 Ketones Ql (U) Negative Negative [facility] - Chemistry and C hemistry - challengeOrdered By: Brandon March 05-16-2023 CO2 [Moles/Vol] 27.0 mmol/L 21.0-32.0 [facility] Urea nitrogen/Creatinine [Mass ratio] 17.7 mg/mg 10-20 [facility] - Hematology and Cell countsOrdered By: Brandon March 05-16-2023 MCH (RBC) [Entitic mass] 30.7 pg 27.0-32.0 [facility] MCHC (RBC) [Mass/Vol] 33.7 g/dL 32-36 [facility] Nucleated RBC/100 WBC (Bld) [Ratio] 0 % 0-5 [facility] Platelet mean volume (Bld) [Entitic vol] 10.5 fL 6.2-12.0 [facility] Platelets (Bld) [#/Vol] 279 10*3/uL 150-450 [facility] Nitrite Test strip Ql (U)Ord ered By: Brandon March on 05-16-2023 Nitrite Ql (U) Negative Negative [facility] No Panel InformationOrdered By: Brandon March on 05-16-2023 Estimated GFR (MDRD) Amer 53 mL/min >60 [facility] Comment on above: GFR Calc Estimated GFR (MDRD) Non-Af Amer 44 mL/min >60 [facility] Comment on above: Non- GFR Calc Protein Test strip Ql (U)Ord ered By: Brandon March on 05-16-2023 Protein Ql (U) Negative Negative [facility] RBC Auto (Bld) [#/Vol]Ordere d By: Brandon March on 05-16-2023 RBC (Bld) [#/Vol] 4.50 10*6/uL 4.2-5.4 [facility] Serum or plasma calcium bacilio urement (mass/volume)Ordered By: Brandon March on 05-16-2023 Calcium [Mass/Vol] 10.1 mg/dL 8.5-10.1 [facility] Serum or plasma creatinine m easurement (mass/volume)Ordered By: Brandon March on 05-16-2023 Creatinine [Mass/Vol] 1.24 mg/dL 0.55-1.02 [facility] Comment on above: The validity of the calculated GFR & GFRAA in patients over 70 years has not been determined. Clinical correlation is essential. Serum or plasma urea nitroge n measurement (mass/volume)Ordered By: Brandon March on 05-16-2023 Urea nitrogen [Mass/Vol] 22 mg/dL 7-18 [facility] Thin prep Papanicolaou smear with manual screeningOrdered By: Brandon March on 05-16-2023 Thin prep Papanicolaou smear with manual screening 5 5-15 [facility] Urine blood detectionOrdered By: Brandon March on 05-16-2023 RBC Ql (U) Negative Negative [facility] Urine clarityOrdered By: Brandon March on 05-16-2023 Clarity (U) Clear Clear [facility] Urine color determinationOrd ered By: Brandon March on 05-16-2023 Color (U) Yellow Yellow [facility] Urine glucose detectionOrder ed By: Brandon March on 05-16-2023 Glucose Ql (U) Normal mg/dl Normal [facility] Urine leukocyte esterase det ection by dipstickOrdered By: Brandon March on 05-16-2023 Leukocyte esterase Test strip Ql (U) 100 /ul Negative [facility] Urine pHOrdered By: Brandon March on 05-16-2023 pH (U) 6.0 [pH] 5.0 - 8.0 [facility] Urine specific gravity measu rementOrdered By: Brandon March on 05-16-2023 Specific gravity (U) [Rel density] 1.010 1.002-1.030 [facility] Urine urobilinogen measureme ntOrdered By: Brandon March on 05-16-2023 Urobilinogen Ql (U) Normal mg/dl Normal [facility] No Panel InformationOrdered By: Serjio Ramseh on 03-14-2023 Miscellaneous Test See comment [facility] Comment on above: Sent directly to [facility] per ordering physician. Absolute lymphocyte countOrd ered By: Brandon March on 11-07-2022 Lymphocytes Auto (Unsp spec) [#/Vol] 2.84 10*3/uL 0.83-4.51 [facility] Basophil percentageOrdered B y: Brandon March on 11-07-2022 Basophils/100 WBC (Bld) 0.7 % 0-1 [facility] Bilirubin [Mass/Vol] 0.80 mg/dL 0.20-1.00 [facility] Comment on above: For patients on eltr ombopag therapy, use of Dimension [place] TBIL is not recommended. Chloride [Moles/Vol] 111 mmol/L 98-107 [facility] Eosinophils/100 WBC (Bld) 2.8 % 0-5 [facility] Glucose [Mass/Vol] 111 mg/dL 74-106 [facility] Comment on above: Fasting Glucose resu lt from 100 to 125 mg/dL suggests IMPAIRED HOMEOSTASIS per A.D.A. criteria. Neutrophils (Bld) [#/Vol] 5.4 10*3/uL 2.0-7.7 [facility] Neutrophils/100 WBC (Bld) 56.5 % 47-70 [facility] Potassium [Moles/Vol] 4.0 mmol/L 3.5-5.1 [facility] Protein [Mass/Vol] 6.6 g/dL 6.4-8.2 [facility] Sodium [Moles/Vol] 143 mmol/L 136-145 [facility] WBC (Bld) [#/Vol] 9.5 10*3/uL 4.4-11.0 [facility] Blood erythrocytes count (nu mber/volume)Ordered By: Brandon March on 11-07-2022 RBC (Bld) [#/Vol] 4.41 10*6/uL 4.2-5.4 [facility] Blood hemoglobin measurement (mass/volume)Ordered By: Brandon March on 11-07-2022 Hemoglobin (Bld) [Mass/Vol] 13.7 g/dL 12.0-15.0 [facility] Blood lymphocytes/100 leukoc ytesOrdered By: Brandon March on 11-07-2022 Lymphocytes/100 WBC (Bld) 29.8 % 19-41 [facility] Blood monocytes/100 leukocyt esOrdered By: Brandon March on 11-07-2022 Monocytes/100 WBC (Bld) 10.0 % 0-10 [facility] Blood platelet mean volumeOr dered By: Brandon March on 11-07-2022 Platelet mean volume (Bld) [Entitic vol] 10.3 fL 6.2-12.0 [facility] Determination of erythrocyte mean corpuscular volume (MCV)Ordered By: Brandon March on 11-07-2022 MCV (RBC) [Entitic vol] 93.0 fL 81-99 [facility] Hematocrit Auto (Bld) [Volum e fraction]Ordered By: Brandon March on 11-07-2022 Hematocrit (Bld) [Volume fraction] 41.0 % 37-47 [facility] - Chemistry and C hemistry - challengeOrdered By: Brandon March on 11-07-2022 ALP [Catalytic activity/Vol] 64 U/L 45-117 [facility] ALT [Catalytic activity/Vol] 31 U/L 13-56 [facility] CO2 [Moles/Vol] 27.0 mmol/L 21.0-32.0 [facility] Globulin (S) [Mass/Vol] 3.0 g/dL 2.2-4.2 [facility] Urea nitrogen/Creatinine [Mass ratio] 26.1 mg/mg 10-20 [facility] - Hematology and Cell countsOrdered By: Brandon March on 11-07-2022 Erythrocyte distribution width (RBC) [Entitic vol] 42.2 fL 35.1-43.9 [facility] Erythrocyte distribution width (RBC) [Ratio] 12.2 % 11.6-14.6 [facility] Immature granulocytes/100 WBC (Bld) 0.200 % 0.0-0.9 [facility] Comment on above: IG% - Immature Granu locytes (promyelocytes, myelocytes and metamyelocytes) > 1% indicates that a LEFT SHIFT is Present. MCH (RBC) [Entitic mass] 31.1 pg 27.0-32.0 [facility] Nucleated RBC/100 WBC (Bld) [Ratio] 0 % 0-5 [facility] MCHC Auto (RBC) [Mass/Vol]Or dered By: Brandon March on 11-07-2022 MCHC (RBC) [Mass/Vol] 33.4 g/dL 32-36 [facility] No Panel InformationOrdered By: Brandon March on 11-07-2022 Estimated GFR (MDRD) Amer 60 mL/min >60 [facility] Comment on above: GFR Calc Estimated GFR (MDRD) Non-Af Amer 50 mL/min >60 [facility] Comment on above: Non- GFR Calc Thyroid Stimulating Hormone (TSH) 0.49 uIU/mL 0.358-3.74 [facility] Vitamin D 25-Hydroxy 36.2 ng/mL [facility] Comment on above: Vitamin D 25(OH) Sta tus Range Deficiency <20 ng/mL (50nmol/L) Insufficiency 20 - 30 ng/mL (50 - 75 nmol/L) Sufficiency 30 - 100 ng/mL (75 - 250 nmol/L) Toxicity >100 ng/mL (>250 nmol/L) Platelets bldOrdered By: Brandon March on 11-07-2022 Platelets (Bld) [#/Vol] 288 10*3/uL 150-450 [facility] Serum or plasma albumin bacilio urement (mass/volume)Ordered By: Brandon March on 11-07-2022 Albumin [Mass/Vol] 3.6 g/dL 3.2-5.0 [facility] Serum or plasma albumin/glob ulin mass ratioOrdered By: Brandon March on 11-07-2022 Albumin/Globulin [Mass ratio] 1.2 {ratio} 0.9-2.4 [facility] Serum or plasma calcium bacilio urement (mass/volume)Ordered By: Brandon March on 11-07-2022 Calcium [Mass/Vol] 9.8 mg/dL 8.5-10.1 [facility] Serum or plasma creatinine m easurement (mass/volume)Ordered By: Brandon March on 11-07-2022 Creatinine [Mass/Vol] 1.11 mg/dL 0.55-1.02 [facility] Comment on above: The validity of the calculated GFR & GFRAA in patients over 70 years has not been determined. Clinical correlation is essential. Serum or plasma urea nitroge n measurement (mass/volume)Ordered By: Brandon March on 11-07-2022 Urea nitrogen [Mass/Vol] 29 mg/dL 7-18 [facility] Thin prep Papanicolaou smear with manual screeningOrdered By: Brandon Joaquim on 11-07-2022 Thin prep Papanicolaou smear with manual screening 26 U/L 15-37 [facility] Thin prep Papanicolaou smear with manual screening 5 5-15 [facility] Absolute lymphocyte countOrd ered By: Brandon Joaquim on 10-11-2022 Lymphocytes Auto (Unsp spec) [#/Vol] 4.06 10*3/uL 0.83-4.51 [facility] Basophil percentageOrdered B y: Brandon March on 10-11-2022 Basophils/100 WBC (Bld) 0.7 % 0-1 [facility] Bilirubin [Mass/Vol] 0.70 mg/dL 0.20-1.00 [facility] Comment on above: For patients on eltr ombopag therapy, use of Dimension [place] TBIL is not recommended. Chloride [Moles/Vol] 108 mmol/L 98-107 [facility] Eosinophils/100 WBC (Bld) 2.4 % 0-5 [facility] Glucose [Mass/Vol] 105 mg/dL 74-106 [facility] Comment on above: Fasting Glucose resu lt from 100 to 125 mg/dL suggests IMPAIRED HOMEOSTASIS per A.D.A. criteria. Neutrophils (Bld) [#/Vol] 6.8 10*3/uL 2.0-7.7 [facility] Neutrophils/100 WBC (Bld) 55.0 % 47-70 [facility] Potassium [Moles/Vol] 4.0 mmol/L 3.5-5.1 [facility] Protein [Mass/Vol] 7.3 g/dL 6.4-8.2 [facility] Sodium [Moles/Vol] 140 mmol/L 136-145 [facility] WBC (Bld) [#/Vol] 12.3 10*3/uL 4.4-11.0 [facility] Blood erythrocytes count (nu mber/volume)Ordered By: Brandon March on 10-11-2022 RBC (Bld) [#/Vol] 5.01 10*6/uL 4.2-5.4 [facility] Blood hemoglobin measurement (mass/volume)Ordered By: Brandon March on 10-11-2022 Hemoglobin (Bld) [Mass/Vol] 15.2 g/dL 12.0-15.0 [facility] Blood lymphocytes/100 leukoc ytesOrdered By: Brandon March on 10-11-2022 Lymphocytes/100 WBC (Bld) 33.0 % 19-41 [facility] Blood monocytes/100 leukocyt esOrdered By: Brandon March on 10-11-2022 Monocytes/100 WBC (Bld) 8.6 % 0-10 [facility] Blood platelet mean volumeOr dered By: Brandon March on 10-11-2022 Platelet mean volume (Bld) [Entitic vol] 10.3 fL 6.2-12.0 [facility] Culture, urineOrdered By: Dony March on 10-11-2022 Bacteria identified Cx Nom (U) Positive [facility] Determination of erythrocyte mean corpuscular volume (MCV)Ordered By: Brandon March on 10-11-2022 MCV (RBC) [Entitic vol] 93.0 fL 81-99 [facility] Hematocrit Auto (Bld) [Volum e fraction]Ordered By: Brandon March on 10-11-2022 Hematocrit (Bld) [Volume fraction] 46.6 % 37-47 [facility] - Chemistry and C hemistry - challengeOrdered By: Brandon March on 10-11-2022 ALP [Catalytic activity/Vol] 70 U/L 45-117 [facility] ALT [Catalytic activity/Vol] 33 U/L 13-56 [facility] CO2 [Moles/Vol] 26.0 mmol/L 21.0-32.0 [facility] Globulin (S) [Mass/Vol] 3.2 g/dL 2.2-4.2 [facility] Urea nitrogen/Creatinine [Mass ratio] 18.8 mg/mg 10-20 [facility] - Hematology and Cell countsOrdered By: Brandon March on 10-11-2022 Erythrocyte distribution width (RBC) [Entitic vol] 41.3 fL 35.1-43.9 [facility] Erythrocyte distribution width (RBC) [Ratio] 12.0 % 11.6-14.6 [facility] Immature granulocytes/100 WBC (Bld) 0.300 % 0.0-0.9 [facility] Comment on above: IG% - Immature Granu locytes (promyelocytes, myelocytes and metamyelocytes) > 1% indicates that a LEFT SHIFT is Present. MCH (RBC) [Entitic mass] 30.3 pg 27.0-32.0 [facility] Nucleated RBC/100 WBC (Bld) [Ratio] 0 % 0-5 [facility] MCHC Auto (RBC) [Mass/Vol]Or dered By: Brandon March on 10-11-2022 MCHC (RBC) [Mass/Vol] 32.6 g/dL 32-36 [facility] No Panel InformationOrdered By: Brandon March on 10-11-2022 Estimated GFR (MDRD) Amer 60 mL/min >60 [facility] Comment on above: GFR Calc Estimated GFR (MDRD) Non-Af Amer 49 mL/min >60 [facility] Comment on above: Non- GFR Calc Thyroid Stimulating Hormone (TSH) 1.02 uIU/mL 0.358-3.74 [facility] Platelets bldOrdered By: Brandon March on 10-11-2022 Platelets (Bld) [#/Vol] 330 10*3/uL 150-450 [facility] Serum or plasma albumin bacilio urement (mass/volume)Ordered By: Brandon March on 10-11-2022 Albumin [Mass/Vol] 4.1 g/dL 3.2-5.0 [facility] Serum or plasma albumin/glob ulin mass ratioOrdered By: Brandon March on 10-11-2022 Albumin/Globulin [Mass ratio] 1.3 {ratio} 0.9-2.4 [facility] Serum or plasma calcium bacilio urement (mass/volume)Ordered By: Brandon March on 10-11-2022 Calcium [Mass/Vol] 10.9 mg/dL 8.5-10.1 [facility] Serum or plasma creatinine m easurement (mass/volume)Ordered By: Brandon March on 10-11-2022 Creatinine [Mass/Vol] 1.12 mg/dL 0.55-1.02 [facility] Comment on above: The validity of the calculated GFR & GFRAA in patients over 70 years has not been determined. Clinical correlation is essential. Serum or plasma urea nitroge n measurement (mass/volume)Ordered By: Brandon March on 10-11-2022 Urea nitrogen [Mass/Vol] 21 mg/dL 7-18 [facility] Thin prep Papanicolaou smear with manual screeningOrdered By: Brandon March on 10-11-2022 Thin prep Papanicolaou smear with manual screening 35 U/L 15-37 [facility] Thin prep Papanicolaou smear with manual screening 6 5-15 [facility] SARS-CoV-2 (COVID-19) Ag IA. rapid Ql (Resp)Ordered By: Dr. March on 07-14-2022 SARS-CoV-2 Antigen (Rapid) SARS-CoV-2 (COVID 19) [facility] Bacteria identified Cx Nom ( Wound)Ordered By: Dr. Atkinson on 06-24-2022 Wound Culture Staphylococcus epidermidis [facility] Gram stain for investigation of transfusion reactionOrdered By: Dr. Atkinson on 06-22-2022 Microscopic observation Gram stain Nom (Unsp spec) [facility] Absolute lymphocyte countOrd ered By: Dr. March on 05-17-2022 Lymphocytes Auto (Unsp spec) [#/Vol] 4.60 10*3/uL 0.83-4.51 [facility] Basophil percentageOrdered B y: Dr. March on 05-17-2022 Basophils/100 WBC (Bld) 0.5 % 0-1 [facility] Bilirubin [Mass/Vol] 0.50 mg/dL 0.20-1.00 [facility] Comment on above: For patients on eltr ombopag therapy, use of Dimension [place] TBIL is not recommended. Chloride [Moles/Vol] 108 mmol/L 98-107 [facility] Eosinophils/100 WBC (Bld) 1.5 % 0-5 [facility] Glucose [Mass/Vol] 68 mg/dL 74-106 [facility] Neutrophils (Bld) [#/Vol] 7.7 10*3/uL 2.0-7.7 [facility] Neutrophils/100 WBC (Bld) 56.4 % 47-70 [facility] Potassium [Moles/Vol] 3.7 mmol/L 3.5-5.1 [facility] Protein [Mass/Vol] 6.9 g/dL 6.4-8.2 [facility] Sodium [Moles/Vol] 140 mmol/L 136-145 [facility] WBC (Bld) [#/Vol] 13.6 10*3/uL 4.4-11.0 [facility] Blood erythrocytes count (nu mber/volume)Ordered By: Dr. March on 05-17-2022 RBC (Bld) [#/Vol] 5.10 10*6/uL 4.2-5.4 [facility] Blood hemoglobin measurement (mass/volume)Ordered By: Dr. March on 05-17-2022 Hemoglobin (Bld) [Mass/Vol] 15.3 g/dL 12.0-15.0 [facility] Blood lymphocytes/100 leukoc ytesOrdered By: Dr. March on 05-17-2022 Lymphocytes/100 WBC (Bld) 33.8 % 19-41 [facility] Blood monocytes/100 leukocyt esOrdered By: Dr. March on 05-17-2022 Monocytes/100 WBC (Bld) 7.5 % 0-10 [facility] Blood platelet mean volumeOr dered By: Dr. March on 05-17-2022 Platelet mean volume (Bld) [Entitic vol] 10.9 fL 6.2-12.0 [facility] Determination of erythrocyte mean corpuscular volume (MCV)Ordered By: Dr. March on 05-17-2022 MCV (RBC) [Entitic vol] 92.2 fL 81-99 [facility] Hematocrit Auto (Bld) [Volum e fraction]Ordered By: Dr. March on 05-17-2022 Hematocrit (Bld) [Volume fraction] 47.0 % 37-47 [facility] - Chemistry and C hemistry - challengeOrdered By: Dr. March on 05-17-2022 ALP [Catalytic activity/Vol] 77 U/L 45-117 [facility] ALT [Catalytic activity/Vol] 30 U/L 13-56 [facility] CO2 [Moles/Vol] 23.0 mmol/L 21.0-32.0 [facility] Globulin (S) [Mass/Vol] 3.0 g/dL 2.2-4.2 [facility] Urea nitrogen/Creatinine [Mass ratio] 16.7 mg/mg 10-20 [facility] - Hematology and Cell countsOrdered By: Dr. March on 05-17-2022 Erythrocyte distribution width (RBC) [Entitic vol] 42.3 fL 35.1-43.9 [facility] Erythrocyte distribution width (RBC) [Ratio] 12.3 % 11.6-14.6 [facility] Immature granulocytes/100 WBC (Bld) 0.300 % 0.0-0.9 [facility] Comment on above: IG% - Immature Granu locytes (promyelocytes, myelocytes and metamyelocytes) > 1% indicates that a LEFT SHIFT is Present. MCH (RBC) [Entitic mass] 30.0 pg 27.0-32.0 [facility] Nucleated RBC/100 WBC (Bld) [Ratio] 0.1 % 0-5 [facility] MCHC Auto (RBC) [Mass/Vol]Or dered By: Dr. March on 05-17-2022 MCHC (RBC) [Mass/Vol] 32.6 g/dL 32-36 [facility] No Panel InformationOrdered By: Dr. March on 05-17-2022 Estimated GFR (MDRD) Amer 39 mL/min >60 [facility] Comment on above: GFR Calc Estimated GFR (MDRD) Non-Af Amer 32 mL/min >60 [facility] Comment on above: Non- GFR Calc Thyroid Stimulating Hormone (TSH) 0.94 uIU/mL 0.358-3.74 [facility] Vitamin D 25-Hydroxy 37.9 ng/mL [facility] Comment on above: Vitamin D 25(OH) Sta tus Range Deficiency <20 ng/mL (50nmol/L) Insufficiency 20 - 30 ng/mL (50 - 75 nmol/L) Sufficiency 30 - 100 ng/mL (75 - 250 nmol/L) Toxicity >100 ng/mL (>250 nmol/L) Platelets bldOrdered By: Dr. March on 05-17-2022 Platelets (Bld) [#/Vol] 299 10*3/uL 150-450 [facility] Serum or plasma albumin bacilio urement (mass/volume)Ordered By: Dr. March on 05-17-2022 Albumin [Mass/Vol] 3.9 g/dL 3.2-5.0 [facility] Serum or plasma albumin/glob ulin mass ratioOrdered By: Dr. March on 05-17-2022 Albumin/Globulin [Mass ratio] 1.3 {ratio} 0.9-2.4 [facility] Serum or plasma calcium bacilio urement (mass/volume)Ordered By: Dr. March on 05-17-2022 Calcium [Mass/Vol] 10.4 mg/dL 8.5-10.1 [facility] Serum or plasma creatinine m easurement (mass/volume)Ordered By: Dr. March on 05-17-2022 Creatinine [Mass/Vol] 1.62 mg/dL 0.55-1.02 [facility] Comment on above: The validity of the calculated GFR & GFRAA in patients over 70 years has not been determined. Clinical correlation is essential. Serum or plasma urea nitroge n measurement (mass/volume)Ordered By: Dr. March on 05-17-2022 Urea nitrogen [Mass/Vol] 27 mg/dL 7-18 [facility] Thin prep Papanicolaou smear with manual screeningOrdered By: Dr. March on 05-17-2022 Thin prep Papanicolaou smear with manual screening 28 U/L 15-37 [facility] Thin prep Papanicolaou smear with manual screening 9 5-15 [facility] Aldolase ser/plasOrdered By: Sina Friend on 03-22-2022 Aldolase [Catalytic activity/Vol] 5.2 mU/mL 3.3-10.3 [facility] Comment on above: Performed at: [place] [id number] Director: Korey Chilel PhD, Phone: [phone] Basophil percentageOrdered B y: Sina Bloom on 03-22-2022 Bilirubin [Mass/Vol] 0.70 mg/dL 0.20-1.00 [facility] Comment on above: For patients on eltr ombopag therapy, use of Dimension [place] TBIL is not recommended. Chloride [Moles/Vol] 109 mmol/L 98-107 [facility] Glucose [Mass/Vol] 107 mg/dL 74-106 [facility] Comment on above: Fasting Glucose resu lt from 100 to 125 mg/dL suggests IMPAIRED HOMEOSTASIS per A.D.A. criteria. Potassium [Moles/Vol] 3.6 mmol/L 3.5-5.1 [facility] Protein [Mass/Vol] 7.0 g/dL 6.4-8.2 [facility] Sodium [Moles/Vol] 142 mmol/L 136-145 [facility] Foote's yeast IgE serumOrde red By: Sina Friend on 03-22-2022 Foote's yeast IgE Qn (S) <0.10 kU/L Class 0 [facility] Chocolate RASTOrdered By: Ra moon Friend on 03-22-2022 Chocolate IgE Qn (S) <0.10 kU/L Class 0 [facility] Chocolate IgE Qn (S) <0.10 [facility] Erythrocyte sedimentation ra teOrdered By: Sina Bloom on 03-22-2022 ESR (Bld) [Velocity] mm/h 0-30 [facility] - Chemistry and C hemistry - challengeOrdered By: Sina Bloom on 03-22-2022 ALP [Catalytic activity/Vol] 72 U/L 45-117 [facility] ALT [Catalytic activity/Vol] 21 U/L 13-56 [facility] CK [Catalytic activity/Vol] 72 U/L 26-192 [facility] CO2 [Moles/Vol] 28.0 mmol/L 21.0-32.0 [facility] Globulin (S) [Mass/Vol] 3.1 g/dL 2.2-4.2 [facility] Urea nitrogen/Creatinine [Mass ratio] 19.1 mg/mg 10-20 [facility] - Miscellaneous t estsOrdered By: Sina Bloom on 03-22-2022 Service comment (Unsp spec) [Interp] Comment . [facility] Comment on above: Levels of Specific I gE Class Description of Class ----- < 0.10 0 Negative 0.10 - 0.31 0/I Equivocal/Low 0.32 - 0.55 I Low 0.56 - 1.40 II Moderate 1.41 - 3.90 III High 3.91 - 19.00 IV Very High 19.01 - 100.00 V Very High >100.00 [facility] No Panel InformationOrdered By: Sina Bloom on 03-22-2022 Barley Allergen IgE Antibody <0.10 kU/L Class 0 [facility] Estimated GFR (MDRD) Amer 61 mL/min >60 [facility] Comment on above: GFR Calc Estimated GFR (MDRD) Non-Af Amer 50 mL/min >60 [facility] Comment on above: Non- GFR Calc [place] Allergen IgE Antibody <0.10 kU/L Class 0 [facility] Seafood Group Allergens (RAST) Negative . [facility] Comment on above: Allergens in this mi x are: Blue mussel Fish [place] Shrimp Tuna Shrimp Allergen <0.10 kU/L Class 0 [facility] Serum Ustilago avenae IgE an tibody assay (units/volume)Ordered By: Sina Bloom on 03-22-2022 Oat smut IgE Qn (S) <0.10 kU/L Class 0 [facility] Serum almond IgE antibody as say (units/volume)Ordered By: Sina Bloom on 03-22-2022 [place] IgE Qn (S) <0.10 kU/L Class 0 [facility] Serum apple IgE antibody ass ay (units/volume)Ordered By: Sina Bloom on 03-22-2022 Apple IgE Qn (S) <0.10 kU/L Class 0 [facility] Comment on above: Performed at: [address] [id number] Director: Fuad De Anda MD, Phone: [phone] Serum banana IgE antibody as say (units/volume)Ordered By: Sina Bloom on 03-22-2022 Banana IgE Qn (S) <0.10 kU/L Class 0 [facility] Serum beef IgE antibody assa y (units/volume)Ordered By: Sina Bloom on 03-22-2022 Beef IgE Qn (S) <0.10 kU/L Class 0 [facility] Beef IgE Qn (S) <0.10 [facility] Serum black walnut IgE antib leonidas assay (units/volume)Ordered By: Sina Bloom on 03-22-2022 [place] IgE Qn (S) <0.10 kU/L Class 0 [facility] Serum carrot IgE antibody as say (units/volume)Ordered By: Sina Bloom on 03-22-2022 Carrot IgE Qn (S) <0.10 kU/L Class 0 [facility] Serum casein IgE antibody as say (units/volume)Ordered By: Sina Bloom on 03-22-2022 Casein IgE Qn (S) <0.10 kU/L Class 0 [facility] Serum cashew nut IgE antibod y assay (units/volume)Ordered By: Sina Bloom on 03-22-2022 Cashew nut IgE Qn (S) <0.10 kU/L Class 0 [facility] Serum celery IgE antibody as say (units/volume)Ordered By: Sina Bloom on 03-22-2022 Celery IgE Qn (S) <0.10 kU/L Class 0 [facility] Serum cheese cheddar type Ig E antibody assay (units/volume)Ordered By: Sina Bloom on 03-22-2022 Cheese cheddar type IgE Qn (S) <0.10 kU/L Class 0 [facility] Serum chicken IgE antibody a ssay (units/volume)Ordered By: Sina Bloom on 03-22-2022 Chicken IgE Qn (S) <0.10 kU/L Class 0 [facility] Serum clam IgE antibody assa y (units/volume)Ordered By: Sina Bloom on 03-22-2022 Clam IgE Qn (S) <0.10 kU/L Class 0 [facility] Serum codfish IgE antibody a ssay (units/volume)Ordered By: Sina Bloom on 03-22-2022 Codfish IgE Qn (S) <0.10 kU/L Class 0 [facility] Serum corn IgE antibody assa y (units/volume)Ordered By: Sina Bloom on 03-22-2022 [place] IgE Qn (S) <0.10 kU/L Class 0 [facility] [place] IgE Qn (S) <0.10 [facility] Serum cow milk IgE antibody assay (units/volume)Ordered By: Sina Bloom on 03-22-2022 Cow milk IgE Qn (S) <0.10 kU/L Class 0 [facility] Cow milk IgE Qn (S) <0.10 [facility] Serum crab IgE antibody assa y (units/volume)Ordered By: Sina Bloom on 03-22-2022 Crab IgE Qn (S) <0.10 kU/L Class 0 [facility] Serum egg white IgE antibody assay (units/volume)Ordered By: Sina Bloom on 03-22-2022 Egg white IgE Qn (S) <0.10 kU/L Class 0 [facility] Serum egg yolk IgE antibody assay (units/volume)Ordered By: Sina Bloom on 03-22-2022 Egg yolk IgE Qn (S) <0.10 kU/L Class 0 [facility] Serum garlic IgE antibody as say (units/volume)Ordered By: Sina Bloom on 03-22-2022 Garlic IgE Qn (S) <0.10 kU/L Class 0 [facility] Serum gluten IgE antibody as say (units/volume)Ordered By: Sina Bloom on 03-22-2022 Gluten IgE Qn (S) <0.10 kU/L Class 0 [facility] Serum lactalbumin alpha IgE antibody assay (units/volume)Ordered By: Sina Bloom on 03-22-2022 Lactalbumin alpha IgE Qn (S) <0.10 kU/L Class 0 [facility] Serum lettuce IgE antibody a ssay (units/volume)Ordered By: Sina Bloom on 03-22-2022 Lettuce IgE Qn (S) <0.10 kU/L Class 0 [facility] Serum lobster IgE antibody a ssay (units/volume)Ordered By: Sina Bloom on 03-22-2022 Lobster IgE Qn (S) <0.10 kU/L Class 0 [facility] Serum onion IgE antibody ass ay (units/volume)Ordered By: Sina Bloom on 03-22-2022 Onion IgE Qn (S) <0.10 kU/L Class 0 [facility] Serum or plasma C reactive p rotein measurement (mass/volume)Ordered By: Sina Bloom on 03-22-2022 CRP [Mass/Vol] mg/L 0.0-3.0 [facility] Comment on above: C-Reactive Protein ( CRP) provides useful information for thediagnosis, therapy and monitoring of inflammatory processesand associated diseases. For the evaluation of Relative Riskfor Cardiovascular Disease, a High Sensitivity CRP (HSCRP)should be ordered. Serum or plasma albumin bacilio urement (mass/volume)Ordered By: Sina Bloom on 03-22-2022 Albumin [Mass/Vol] 3.9 g/dL 3.2-5.0 [facility] Serum or plasma albumin/glob ulin mass ratioOrdered By: Sina Bloom on 03-22-2022 Albumin/Globulin [Mass ratio] 1.3 {ratio} 0.9-2.4 [facility] Serum or plasma calcium bacilio urement (mass/volume)Ordered By: Sina Bloom on 03-22-2022 Calcium [Mass/Vol] 10.5 mg/dL 8.5-10.1 [facility] Serum or plasma creatinine m easurement (mass/volume)Ordered By: Sina Bloom on 03-22-2022 Creatinine [Mass/Vol] 1.10 mg/dL 0.55-1.02 [facility] Comment on above: The validity of the calculated GFR & GFRAA in patients over 70 years has not been determined. Clinical correlation is essential. Serum or plasma urea nitroge n measurement (mass/volume)Ordered By: Sina Bloom on 03-22-2022 Urea nitrogen [Mass/Vol] 21 mg/dL 7-18 [facility] Serum or plasma uric acid me asurement (mass/volume)Ordered By: Sina Bloom on 03-22-2022 Urate [Mass/Vol] 5.8 mg/dL 2.6-6.0 [facility] Comment on above: The drugs N-Acetylcy steine and Metamizole may falsely depress this assay. Serum orange IgE antibody as say (units/volume)Ordered By: Sina Bloom on 03-22-2022 [place] IgE Qn (S) <0.10 kU/L Class 0 [facility] Serum pea IgE antibody assay (units/volume)Ordered By: Sina Bloom on 03-22-2022 Pea IgE Qn (S) <0.10 kU/L Class 0 [facility] Serum peach IgE antibody ass ay (units/volume)Ordered By: Sina Bloom on 03-22-2022 [place] IgE Qn (S) <0.10 kU/L Class 0 [facility] Serum peanut IgE antibody as say (units/volume)Ordered By: Sina Bloom on 03-22-2022 Peanut IgE Qn (S) <0.10 kU/L Class 0 [facility] Comment on above: Levels of Specific I gE Class Description of Class ----- < 0.10 0 Negative 0.10 - 0.31 0/I Equivocal/Low 0.32 - 0.55 I Low 0.56 - 1.40 II Moderate 1.41 - 3.90 III High 3.91 - 19.00 IV Very High 19.01 - 100.00 V Very High >100.00 [facility] Peanut IgE Qn (S) <0.10 [facility] Serum pecan or hickory nut I gE antibody assay (units/volume)Ordered By: Sina Bloom on 03-22-2022 Pecan or [place] Nut IgE Qn (S) <0.10 kU/L Class 0 [facility] Serum pork IgE antibody assa y (units/volume)Ordered By: Sina Bloom on 03-22-2022 Pork IgE Qn (S) <0.10 kU/L Class 0 [facility] Pork IgE Qn (S) <0.10 [facility] Serum rice IgE antibody assa y (units/volume)Ordered By: Sina Bloom on 03-22-2022 Rice IgE Qn (S) <0.10 kU/L Class 0 [facility] Serum rye IgE antibody assay (units/volume)Ordered By: Sina Bloom on 03-22-2022 [place] IgE Qn (S) <0.10 kU/L Class 0 [facility] Serum salmon IgE antibody as say (units/volume)Ordered By: Sina Bloom on 03-22-2022 [place] IgE Qn (S) <0.10 kU/L Class 0 [facility] Serum soybean IgE antibody a ssay (units/volume)Ordered By: Sina Bloom on 03-22-2022 Soybean IgE Qn (S) <0.10 kU/L Class 0 [facility] Soybean IgE Qn (S) <0.10 oste [facility] [facility] [place] Serum strawberry IgE antibod y assay (units/volume)Ordered By: Sina Bloom on 03-22-2022 [place] IgE Qn (S) <0.10 kU/L Class 0 [facility] Serum tomato IgE antibody as say (units/volume)Ordered By: Sina Bloom on 03-22-2022 Tomato IgE Qn (S) <0.10 kU/L Class 0 [facility] Serum tuna IgE antibody assa y (units/volume)Ordered By: Sina Bloom on 03-22-2022 Tuna IgE Qn (S) <0.10 kU/L Class 0 [facility] Serum turkey meat IgE antibo dy assay (units/volume)Ordered By: Sina Bloom on 03-22-2022 [place] meat IgE Qn (S) <0.10 kU/L Class 0 [facility] Comment on above: Performed at: [address] [id number] Director: Fuad De Anda MD, Phone: [phone] Serum wheat IgE antibody ass ay (units/volume)Ordered By: Sina Bloom on 03-22-2022 [place] IgE Qn (S) <0.10 kU/L Class 0 [facility] Wheat IgE Qn (S) <0.10 [facility] Serum white potato specific IgE antibody assayOrdered By: Sina Bloom on 03-22-2022 Potato IgE Qn (S) <0.10 kU/L Class 0 [facility] Serum whole egg IgE antibody assay (units/volume)Ordered By: Sina Bloom on 03-22-2022 Whole Egg IgE Qn (S) <0.10 kU/L Class 0 [facility] Thin prep Papanicolaou smear with manual screeningOrdered By: Sina Bloom on 03-22-2022 Thin prep Papanicolaou smear with manual screening 25 U/L 15-37 [facility] Thin prep Papanicolaou smear with manual screening 5 5-15 [facility] Thin prep Papanicolaou smear with manual screening <0.10 [facility] Absolute lymphocyte counton 11-09-2021 Lymphocytes Auto (Unsp spec) [#/Vol] 3.57 10*3/uL 0.83-4.51 [facility] Work Phone: Basophil percentageon 2021 Basophils/100 WBC (Bld) 0.6 % 0-1 [facility] Work Phone: Bilirubin [Mass/Vol] 0.90 mg/dL 0.20-1.00 [facility] Work Phone: Comment on above: For patients on eltr ombopag therapy, use of Dimension [place] TBIL is not recommended. Chloride [Moles/Vol] 106 mmol/L 98-107 [facility] Work Phone: Eosinophils/100 WBC (Bld) 1.6 % 0-5 [facility] Work Phone: [phone] Glucose [Mass/Vol] 117 mg/dL 74-106 [facility] Work Phone: Comment on above: Fasting Glucose resu lt from 100 to 125 mg/dL suggests IMPAIRED HOMEOSTASIS per A.D.A. criteria. Neutrophils (Bld) [#/Vol] 5.9 10*3/uL 2.0-7.7 [facility] Work Phone: Neutrophils/100 WBC (Bld) 56.3 % 47-70 [facility] Work Phone: [phone] Potassium [Moles/Vol] 4.4 mmol/L 3.5-5.1 [facility] Work Phone: Protein [Mass/Vol] 7.2 g/dL 6.4-8.2 [facility] Work Phone: [phone] Sodium [Moles/Vol] 140 mmol/L 136-145 [facility] Work Phone: WBC (Bld) [#/Vol] 10.5 10*3/uL 4.4-11.0 [facility] Work Phone: Blood erythrocytes count (nu mber/volume)on 11-09-2021 RBC (Bld) [#/Vol] 4.80 10*6/uL 4.2-5.4 [facility] Work Phone: Blood hemoglobin measurement (mass/volume)on 11-09-2021 Hemoglobin (Bld) [Mass/Vol] 15.0 g/dL 12.0-15.0 [facility] Work Phone: Blood lymphocytes/100 leukoc yteson 11-09-2021 Lymphocytes/100 WBC (Bld) 33.9 % 19-41 [facility] Work Phone: Blood monocytes/100 leukocyt eson 11-09-2021 Monocytes/100 WBC (Bld) 7.3 % 0-10 [facility] Work Phone: Blood platelet mean volumeon 11-09-2021 Platelet mean volume (Bld) [Entitic vol] 10.3 fL 6.2-12.0 [facility] Work Phone: Determination of erythrocyte mean corpuscular volume (MCV)on 11-09-2021 MCV (RBC) [Entitic vol] 91.5 fL 81-99 [facility] Work Phone: Hematocrit Auto (Bld) [Volum e fraction]on 11-09-2021 Hematocrit (Bld) [Volume fraction] 43.9 % 37-47 [facility] Work Phone: Laboratory - Chemistry and C hemistry - challengeon 11-09-2021 ALP [Catalytic activity/Vol] 71 U/L 45-117 [facility] Work Phone: ALT [Catalytic activity/Vol] 27 U/L 13-56 [facility] Work Phone: CO2 [Moles/Vol] 27.0 mmol/L 21.0-32.0 [facility] Work Phone: Globulin (S) [Mass/Vol] 3.3 g/dL 2.2-4.2 [facility] Work Phone: Urea nitrogen/Creatinine [Mass ratio] 21.3 mg/mg 10-20 [facility] Work Phone: Laboratory - Hematology and Cell countson 11-09-2021 Erythrocyte distribution width (RBC) [Entitic vol] 40.3 fL 35.1-43.9 [facility] Work Phone: Erythrocyte distribution width (RBC) [Ratio] 12.0 % 11.6-14.6 [facility] Work Phone: Immature granulocytes/100 WBC (Bld) 0.300 % 0.0-0.9 [facility] Work Phone: Comment on above: IG% - Immature Granu locytes (promyelocytes, myelocytes and metamyelocytes) > 1% indicates that a LEFT SHIFT is Present. MCH (RBC) [Entitic mass] 31.3 pg 27.0-32.0 [facility] Work Phone: Nucleated RBC/100 WBC (Bld) [Ratio] 0 % 0-5 [facility] Work Phone: MCHC Auto (RBC) [Mass/Vol]on 11-09-2021 MCHC (RBC) [Mass/Vol] 34.2 g/dL 32-36 [facility] Work Phone: No Panel Informationon 11-09 Estimated GFR (MDRD) Amer 54 mL/min >60 [facility] Work Phone: Comment on above: GFR Calc Estimated GFR (MDRD) Non-Af Amer 45 mL/min >60 [facility] Work Phone: Comment on above: Non- GFR Calc Thyroid Stimulating Hormone (TSH) 0.96 uIU/mL 0.358-3.74 [facility] Work Phone: Vitamin D 25-Hydroxy 26.6 ng/mL [facility] Work Phone: Comment on above: Vitamin D 25(OH) Sta tus Range Deficiency <20 ng/mL (50nmol/L) Insufficiency 20 - 30 ng/mL (50 - 75 nmol/L) Sufficiency 30 - 100 ng/mL (75 - 250 nmol/L) Toxicity >100 ng/mL (>250 nmol/L) Platelets bldon 11-09-2021 Platelets (Bld) [#/Vol] 312 10*3/uL 150-450 [facility] Work Phone: Serum or plasma albumin bacilio urement (mass/volume)on 11-09-2021 Albumin [Mass/Vol] 3.9 g/dL 3.2-5.0 [facility] Work Phone: Serum or plasma albumin/glob ulin mass ratioon 11-09-2021 Albumin/Globulin [Mass ratio] 1.2 {ratio} 0.9-2.4 [facility] Work Phone: Serum or plasma calcium bacilio urement (mass/volume)on 11-09-2021 Calcium [Mass/Vol] 10.4 mg/dL 8.5-10.1 [facility] Work Phone: Serum or plasma creatinine m easurement (mass/volume)on 11-09-2021 Creatinine [Mass/Vol] 1.22 mg/dL 0.55-1.02 [facility] Work Phone: Comment on above: The validity of the calculated GFR & GFRAA in patients over 70 years has not been determined. Clinical correlation is essential. Serum or plasma urea nitroge n measurement (mass/volume)on 11-09-2021 Urea nitrogen [Mass/Vol] 26 mg/dL 7-18 [facility] Work Phone: Serum or plasma uric acid me asurement (mass/volume)on 11-09-2021 Urate [Mass/Vol] 7.7 mg/dL 2.6-6.0 [facility] Work Phone: Comment on above: The drugs N-Acetylcy steine and Metamizole may falsely depress this assay. Thin prep Papanicolaou smear with manual screeningon 11-09-2021 Thin prep Papanicolaou smear with manual screening 25 U/L 15-37 [facility] Work Phone: Thin prep Papanicolaou smear with manual screening 7 5-15 [facility] Work Phone: No Panel Informationon 07-22 Influenza Types A,B Direct FA (CLARK) [facility] Work Phone: Absolute lymphocyte counton 05-11-2021 Lymphocytes Auto (Unsp spec) [#/Vol] 3.47 10*3/uL 0.83-4.51 [facility] Work Phone: Basophil percentageon 2021 Basophils/100 WBC (Bld) 0.6 % 0-1 [facility] Work Phone: Bilirubin [Mass/Vol] 0.70 mg/dL 0.20-1.00 [facility] Work Phone: Comment on above: For patients on eltr ombopag therapy, use of Dimension [place] TBIL is not recommended. Chloride [Moles/Vol] 108 mmol/L 98-107 [facility] Work Phone: Eosinophils/100 WBC (Bld) 2.3 % 0-5 [facility] Work Phone: Glucose [Mass/Vol] 165 mg/dL 74-106 [facility] Work Phone: Comment on above: Fasting Glucose resu lt greater than or equal to 126 mg/dL suggests DIABETES MELLITUS per A.D.A. criteria. Neutrophils (Bld) [#/Vol] 5.1 10*3/uL 2.0-7.7 [facility] Work Phone: Neutrophils/100 WBC (Bld) 52.9 % 47-70 [facility] Work Phone: [phone] Potassium [Moles/Vol] 3.5 mmol/L 3.5-5.1 [facility] Work Phone: Protein [Mass/Vol] 6.9 g/dL 6.4-8.2 [facility] Work Phone: Sodium [Moles/Vol] 141 mmol/L 136-145 [facility] Work Phone: WBC (Bld) [#/Vol] 9.6 10*3/uL 4.4-11.0 [facility] Work Phone: Blood erythrocytes count (nu mber/volume)on 05-11-2021 RBC (Bld) [#/Vol] 4.67 10*6/uL 4.2-5.4 [facility] Work Phone: Blood hemoglobin measurement (mass/volume)on 05-11-2021 Hemoglobin (Bld) [Mass/Vol] 14.3 g/dL 12.0-15.0 [facility] Work Phone: Blood lymphocytes/100 leukoc yteson 05-11-2021 Lymphocytes/100 WBC (Bld) 36.3 % 19-41 [facility] Work Phone: Blood monocytes/100 leukocyt eson 05-11-2021 Monocytes/100 WBC (Bld) 7.7 % 0-10 [facility] Work Phone: Blood platelet mean volumeon 05-11-2021 Platelet mean volume (Bld) [Entitic vol] 10.3 fL 6.2-12.0 [facility] Work Phone: Determination of erythrocyte mean corpuscular volume (MCV)on 05-11-2021 MCV (RBC) [Entitic vol] 90.1 fL 81-99 [facility] Work Phone: Hematocrit Auto (Bld) [Volum e fraction]on 05-11-2021 Hematocrit (Bld) [Volume fraction] 42.1 % 37-47 [facility] Work Phone: Laboratory - Chemistry and C hemistry - challengeon 05-11-2021 ALP [Catalytic activity/Vol] 71 U/L 45-117 [facility] Work Phone: ALT [Catalytic activity/Vol] 27 U/L 13-56 [facility] Work Phone: CO2 [Moles/Vol] 27.0 mmol/L 21.0-32.0 [facility] Work Phone: Globulin (S) [Mass/Vol] 3.3 g/dL 2.2-4.2 [facility] Work Phone: Urea nitrogen/Creatinine [Mass ratio] 16.7 mg/mg 10-20 [facility] Work Phone: Laboratory - Hematology and Cell countson 05-11-2021 Erythrocyte distribution width (RBC) [Entitic vol] 39.5 fL 35.1-43.9 [facility] Work Phone: Erythrocyte distribution width (RBC) [Ratio] 12.2 % 11.6-14.6 [facility] Work Phone: Immature granulocytes/100 WBC (Bld) 0.200 % 0.0-0.9 [facility] Work Phone: Comment on above: IG% - Immature Granu locytes (promyelocytes, myelocytes and metamyelocytes) > 1% indicates that a LEFT SHIFT is Present. MCH (RBC) [Entitic mass] 30.6 pg 27.0-32.0 [facility] Work Phone: Nucleated RBC/100 WBC (Bld) [Ratio] 0 % 0-5 [facility] Work Phone: MCHC Auto (RBC) [Mass/Vol]on 05-11-2021 MCHC (RBC) [Mass/Vol] 34.0 g/dL 32-36 [facility] Work Phone: No Panel Informationon 05-11 Estimated GFR (MDRD) Amer 55 mL/min >60 [facility] Work Phone: Comment on above: GFR Calc Estimated GFR (MDRD) Non-Af Amer 46 mL/min >60 [facility] Work Phone: Comment on above: Non- GFR Calc Thyroid Stimulating Hormone (TSH) 0.88 uIU/mL 0.358-3.74 [facility] Work Phone: Vitamin D 25-Hydroxy 29.0 ng/mL [facility] Work Phone: Comment on above: Vitamin D 25(OH) Sta tus Range Deficiency <20 ng/mL (50nmol/L) Insufficiency 20 - 30 ng/mL (50 - 75 nmol/L) Sufficiency 30 - 100 ng/mL (75 - 250 nmol/L) Toxicity >100 ng/mL (>250 nmol/L) Platelets bldon 05-11-2021 Platelets (Bld) [#/Vol] 315 10*3/uL 150-450 [facility] Work Phone: Serum or plasma albumin bacilio urement (mass/volume)on 05-11-2021 Albumin [Mass/Vol] 3.6 g/dL 3.2-5.0 [facility] Work Phone: Serum or plasma albumin/glob ulin mass ratioon 05-11-2021 Albumin/Globulin [Mass ratio] 1.1 {ratio} 0.9-2.4 [facility] Work Phone: Serum or plasma calcium bacilio urement (mass/volume)on 05-11-2021 Calcium [Mass/Vol] 9.7 mg/dL 8.5-10.1 [facility] Work Phone: Serum or plasma creatinine m easurement (mass/volume)on 05-11-2021 Creatinine [Mass/Vol] 1.20 mg/dL 0.55-1.02 [facility] Work Phone: Comment on above: The validity of the calculated GFR & GFRAA in patients over 70 years has not been determined. Clinical correlation is essential. Serum or plasma urea nitroge n measurement (mass/volume)on 05-11-2021 Urea nitrogen [Mass/Vol] 20 mg/dL 7-18 [facility] Work Phone: Serum or plasma uric acid me asurement (mass/volume)on 05-11-2021 Urate [Mass/Vol] 6.1 mg/dL 2.6-6.0 [facility] Work Phone: Comment on above: The drugs N-Acetylcy steine and Metamizole may falsely depress this assay. Thin prep Papanicolaou smear with manual screeningon 05-11-2021 Thin prep Papanicolaou smear with manual screening 20 U/L 15-37 [facility] Work Phone: Thin prep Papanicolaou smear with manual screening 6 5-15 [facility] Work Phone: Giardia lamblia ag stool EIA on 05-06-2021 G. lamblia Ag IA Ql (Stl) Negative Negative [facility] Work Phone: Comment on above: Performed at: [facility] [id number] Director: Korey Chilel PhD, Phone: [phone] No Panel Informationon 05-06 Miscellaneous Test See comment [facility] Work Phone: Comment on above: TEST RESULT LIMITSPa ncreatic Elastase,Fecal 150 Low ug/Elast./g >200 Severe Pancreatic Insufficiency: <100 Moderate Pancreatic Insufficiency: 100-200 Normal: >200 TESTING PERFORMED AT [facility]. ORIGINAL REPORT ON FILE IN LAB CONTAINS ADDITIONAL TEST SITE INFORMATION. Stool Calprotectin 30 ug/g [facility] Work Phone: Comment on above: Concentration Interp retation Follow-Up<16 - 50 ug/g Normal None>50 -120 ug/g Borderline Re-evaluate in 4-6 weeks >120 ug/g Abnormal Repeat as clinically indicatedPerformed at: [address] [id number] Director: Fuad De Anda MD, Phone: [phone] Atypical perinuclear antineu trophil cytoplasmic antibodies measurementon 05-02-2021 Neutrophil cytoplasmic Ab.perinuclear.atypical IF (S) [Titer] <1:20 titer Neg:<1:20 [facility] Work Phone: Comment on above: The atypical pANCA p attern has been observed in asignificant percentage of patients with ulcerative colitis,primary sclerosing cholangitis and autoimmune hepatitis. Basophil percentageon 2021 Basophil percentage < 0.2 [facility] Work Phone: Erythrocyte sedimentation ra henri 05-02-2021 ESR (Bld) [Velocity] 3 mm/h 0-30 [facility] Work Phone: No Panel Informationon 05-02 CA 19-9 Antigen Serial Monitoring See comment [facility] Work Phone: Comment on above: Scanned image report available in EMR [employer] B Antibody <0.2 [facility] Work Phone: Endomysial IgA Antibody Negative Negative [facility] Work Phone: Immunoglobulin E 4 IU/mL [facility] Work Phone: HALL COORDINATOR Antibody <0.2 [facility] Work Phone: Serum DNA double strand anti body assay (units/volume)on 05-02-2021 DNA double strand Ab Qn (S) 6 [IU]/mL [facility] Work Phone: Comment on above: Negative <5 Equivoca l 5 - 9 Positive >9 Serum Danika-1 antibody assay (u nits/volume)on 05-02-2021 Danika-1 extractable nuclear Ab Qn (S) <0.2 [facility] Work Phone: Serum Scl-70 extractable nuc lear antibody assay (units/volume)on 05-02-2021 SCL-70 extractable nuclear Ab Qn (S) 0.2 [facility] Work Phone: Serum Lei extractable nucl ear antibody detectionon 05-02-2021 Lei extractable nuclear Ab Ql (S) <0.2 [facility] Work Phone: Serum classic neutrophil cyt oplasmic antibody assay (units/volume)on 05-02-2021 Neutrophil cytoplasmic Ab.classic Qn (S) <1:20 titer Neg:<1:20 [facility] Work Phone: Serum or plasma C reactive p rotein measurement (mass/volume)on 05-02-2021 CRP [Mass/Vol] mg/L 0.0-3.0 [facility] Work Phone: Comment on above: C-Reactive Protein ( CRP) provides useful information for thediagnosis, therapy and monitoring of inflammatory processesand associated diseases. For the evaluation of Relative Riskfor Cardiovascular Disease, a High Sensitivity CRP (HSCRP)should be ordered. Serum or plasma IgA measurem ent (mass/volume)on 05-02-2021 IgA [Mass/Vol] 109 mg/dL [facility] Work Phone: Serum or plasma IgG measurem ent (mass/volume)on 05-02-2021 IgG [Mass/Vol] 634 mg/dL [facility] Work Phone: Serum or plasma IgM measurem ent (mass/volume)on 05-02-2021 IgM [Mass/Vol] 35 mg/dL [facility] Work Phone: Comment on above: Performed at: [employer] [address] [id number] Director: Korey Chilel PhD, Phone: [phone] at: [facility] [id number] Director: Fuad De Anda MD, Phone: [phone] Serum perinuclear neutrophil cytoplasmic antibody titer by immunofluorescenceon 05-02-2021 Neutrophil cytoplasmic Ab.perinuclear IF (S) [Titer] <1:20 titer Neg:<1:20 [facility] Work Phone: Comment on above: The presence of posi tive fluorescence exhibiting P-ANCA orC-ANCA patterns alone is not specific for the diagnosis ofWegener's Granulomatosis (WG) or microscopic polyangiitis.Decisions about treatment should not be based solely onANCA IFA results. The [employer] ANCA [employer] Consensusrecommends follow up testing of positive sera with both AK-3 and MPO-ANCA enzyme immunoassays. As many as 5% serumsamples are positive only by EIA. Ref. AM J Clin Eyrvdv5577;111:507-513. Serum tissue transglutaminas e IgA antibody assay (units/volume)on 05-02-2021 tTG IgA Qn (S) <2 U/mL [facility] Work Phone: Comment on above: Negative 0 - 3 Weak Positive 4 - 10 Positive >10 Tissue Transglutaminase (tTG) has been identified as the endomysial antigen. Studies have demonstr- ated that endomysial IgA antibodies have over 99% specificity for gluten sensitive enteropathy. Microbiology: Culture, Wound on 12-02-2016 [facility] Wound CultureNo grow th aerobically. Invalid Interpretation Code [facility] Work Phone: Microbiology: (P) Culture, W oundon 11-30-2016 [facility] Wound CultureNo growth-Final to follow Invalid Interpretation Code [facility] Work Phone: Office Visit: UC: L arm cell ulitison 11-29-2016 Fall risk assessment No Invalid Interpretation Code [facility] Work Phone: Protein mass conc Done Invalid Interpretation Code [facility] Work Phone: Tobacco smoking status NHIS Never smoker Invalid Interpretation Code [facility] Work Phone: No Panel Information Influenza Types A,B Direct FA (CLARK) [facility] Work Phone: Vital Signs Date Time Vital Sign Value Performing Clinician Faci lity 02-25-2024 10:57-0500 Body height 156.[address] Brandon March MD Work Phone: [facility] 02-25-2024 10:57-0500 Body mass index (BMI) [Ratio] 29.7 kg/m2 Dr. Brandon March MD Work Phone: [facility] 02-25-2024 10:57-0500 Body weight 72.[address] Brandon March MD Work Phone: [facility] 02-25-2024 10:57-0500 Diastolic blood pressure 97 mm[Hg] Dr. Brandon March MD Work Phone: [facility] 02-25-2024 10:57-0500 Heart rate 96 /min Dr. Brandon March MD Work Phone: [facility] 02-25-2024 10:57-0500 Respiratory rate 18 /min Dr. Brandon March MD Work Phone: [facility] 02-25-2024 10:57-0500 SaO2% (BldA) [Mass fraction] 95 % Dr. Brandon March MD Work Phone: [facility] 02-25-2024 10:57-0500 Systolic blood pressure 163 mm[Hg] Dr. Brandon March MD Work Phone: 8(002)814-203885 [place] [address] 01-23-2024 15:00-0500 Body temperature 98.5 [degF] Dr. Brandon March MD Work Phone: 7(099)691-507185 [place] [address] 01-23-2024 15:00-0500 Diastolic blood pressure 80 mm[Hg] Dr. Brandon March MD Work Phone: 6(565)884-736085 [place] [address] 01-23-2024 15:00-0500 Heart rate 71 /min Dr. Brandon March MD Work Phone: 0(579)791-153385 [place] [address] 01-23-2024 15:00-0500 Respiratory rate 18 /min Dr. Brandon March MD Work Phone: 2(915)839-884985 [place] [address] 01-23-2024 15:00-0500 SaO2% (BldA) [Mass fraction] 94 % Dr. Brandon March MD Work Phone: 0(662)728-545085 [place] [address] 01-23-2024 15:00-0500 Systolic blood pressure 144 mm[Hg] Dr. Brandno March MD Work Phone: [facility] 01-23-2024 05:52-0500 Body mass index (BMI) [Ratio] 30.8 kg/m2 Dr. Brandon March MD Work Phone: [facility] 01-23-2024 05:52-0500 Body weight 75.[address] Brandon March MD Work Phone: 2(523)366-740985 [place] [address] 07-20-2022 10:59-0400 Body height 157.[address] Brandon March Work Phone: 7(044)952-810885 [place] [address] 07-20-2022 10:59-0400 Body mass index (BMI) [Ratio] 28.9 kg/m2 Dr. Brandon March Work Phone: [facility] 07-20-2022 10:59-0400 Body weight 71.[address] Brandon March Work Phone: [facility] 07-20-2022 10:59-0400 Diastolic blood pressure 85 mm[Hg] Dr. Brandon March Work Phone: 9(882)068-133485 [place] [address] 07-20-2022 10:59-0400 Heart rate 78 /min Dr. Brandon March Work Phone: 3(216)965-403685 [place] [address] 07-20-2022 10:59-0400 Respiratory rate 16 /min Dr. Brandon March Work Phone: [facility] 07-20-2022 10:59-0400 Systolic blood pressure 162 mm[Hg] Dr. Brandon March Work Phone: 3(542)661-832685 [place] [address] 04-13-2022 11:07-0500 Diastolic blood pressure 94 mm[Hg] Dr. Brandon March Work Phone: 4(831)739-526285 [place] [address] 04-13-2022 11:07-0500 Systolic blood pressure 164 mm[Hg] Dr. Brandon March Work Phone: 0(283)841-696585 [place] [address] 04-13-2022 11:03-0500 Body height 157.[address] Brandon March Work Phone: 2(308)286-043885 [place] [address] 04-13-2022 11:03-0500 Body mass index (BMI) [Ratio] 28.9 kg/m2 Dr. Brandon March Work Phone: [facility] 04-13-2022 11:03-0500 Body weight 71.[address] Brandon March Work Phone: 5(713)612-238785 [place] [address] 04-13-2022 11:03-0500 Heart rate 90 /min Dr. Brandon March Work Phone: [facility] 04-13-2022 11:03-0500 Respiratory rate 16 /min Dr. Brandon March Work Phone: [facility] 03-02-2023 11:03-0500 SaO2% (BldA) [Mass fraction] 95 % Dr. Brandon March Work Phone: [facility] 01-11-2022 14:34-0500 Body height 157.[address] Brandon March Work Phone: [facility] 01-11-2022 14:34-0500 Body mass index (BMI) [Ratio] 30.3 kg/m2 Dr. Brandon March Work Phone: [facility] 01-11-2022 14:34-0500 Body weight 75.[address] Brandon March Work Phone: [facility] 01-11-2022 14:34-0500 Diastolic blood pressure 83 mm[Hg] Dr. Brandon March Work Phone: [facility] 01-11-2022 14:34-0500 Heart rate 77 /min Dr. Brandon March Work Phone: [facility] 01-11-2022 14:34-0500 Respiratory rate 16 /min Dr. Brandon March Work Phone: [facility] 01-11-2022 14:34-0500 Systolic blood pressure 131 mm[Hg] Dr. Brandon March Work Phone: [facility] 08-10-2021 14:02-0400 Body height 157.[address] Brandon March Work Phone: [facility] Work Phone: 08-10-2021 14:02-0400 Body mass index (BMI) [Ratio] 24.1 kg/m2 Dr. Brandon March Work Phone: [facility] Work Phone: 08-10-2021 14:02-0400 Body weight 59.[address] Brandon March Work Phone: [facility] Work Phone: 08-10-2021 14:02-0400 Diastolic blood pressure 79 mm[Hg] Dr. Brandon March Work Phone: [facility] Work Phone: 08-10-2021 14:02-0400 Heart rate 75 /min Dr. Brandon March Work Phone: [facility] Work Phone: 08-10-2021 14:02-0400 SaO2% (BldA) [Mass fraction] 92 % Dr. Brandon March Work Phone: [facility] Work Phone: 08-10-2021 14:02-0400 Systolic blood pressure 143 mm[Hg] Dr. Brandon March Work Phone: [facility] Work Phone: 07-26-2021 13:27-0400 Body temperature 98.1 [degF] Dr. Brandon March Work Phone: [facility] Work Phone: 07-26-2021 13:27-0400 Diastolic blood pressure 72 mm[Hg] Dr. Brandon March Work Phone: [facility] Work Phone: 07-26-2021 13:27-0400 Heart rate 59 /min Dr. Brandon March Work Phone: [facility] Work Phone: 07-26-2021 13:27-0400 Respiratory rate 16 /min Dr. Brandon March Work Phone: [facility] Work Phone: 07-26-2021 13:27-0400 SaO2% (BldA) [Mass fraction] 96 % Dr. Brandon March Work Phone: [facility] Work Phone: 07-26-2021 13:27-0400 Systolic blood pressure 164 mm[Hg] Dr. Brandon March Work Phone: [facility] Work Phone: 07-26-2021 11:52-0400 Body height 157.[address] Brandon March Work Phone: [facility] Work Phone: 07-26-2021 11:52-0400 Body mass index (BMI) [Ratio] 29.6 kg/m2 Dr. Brandon March Work Phone: [facility] Work Phone: 07-26-2021 11:52-0400 Body weight 73.[address] Brandon March Work Phone: [facility] Work Phone: 11-29-2016 14:27-0400 BMI (Body Mass Index) 27.47 kg/m2 [facility] Work Phone: 11-29-2016 14:27-0400 Body Temperature 98.2 [degF] [facility] Work Phone: 11-29-2016 14:27-0400 BP Diastolic 94 mm[Hg] [facility] Work Phone: 11-29-2016 14:27-0400 BP Systolic 142 mm[Hg] [facility] Work Phone: 11-29-2016 14:27-0400 Height 157.48 cm [facility] Work Phone: 11-29-2016 14:27-0400 Pulse (Heart Rate) 71 /min [facility] Work Phone: 11-29-2016 14:27-0400 Respiratory Rate 15 /min [facility] Work Phone: 11-29-2016 14:27-0400 Weight 68.13 kg [facility] Work Phone: 07-27-2011 11:11-0400 BSA (Body Surface Area) 1.64 m2 [facility] Work Phone: Encounters Encounter Date Encounter Type Care Provider Facility Start: 06-09-2024 End: 06-09-2024 ambulatory Brandon March Facility:[facility] Start: 06-03-2024 End: 06-03-2024 ambulatory Luan Paul Facility:[facility] Start: 06-03-2024 End: 06-03-2024 ambulatory Brandon [facility] Facility:[facility] Start: 04-23-2024 End: 04-23-[address] Brandon March MD Work Phone: [facility] Work Phone: Start: 04-23-2024 End: 04-23-[address] Brandon March MD -Nuclear Medicine, [facility] Work Phone: Start: 04-23-2024 End: 04-23-[facility] Start: 03-27-2024 End: 03-27-[address] Brandon March MD -Ultrasound, [facility] Work Phone: Start: 03-27-2024 End: 03-27-2024 ambulatory [facility] Facility:[facility] Start: 03-14-2024 End: 03-14-2024 ambulatory Cal Billings Facility:[facility] Start: 03-14-2024 End: 03-14-[address] Brandon March MD -Physical Therapy Work Phone: Start: 03-12-2024 End: 03-12-[address] Brandon March MD -Cat Scan, [facility] Work Phone: Start: 03-12-2024 End: 03-12-2024 ambulatory [facility] Facility:[facility] Start: 02-27-2024 End: 02-27-[address] Denny Hargrove MD -Laboratory Work Phone: Start: 02-27-2024 End: 02-27-2024 ambulatory Denny Hargrove Facility:[facility] Start: 02-25-2024 End: 02-25-[address] Luan Guzman MD -[facility] Work Phone: Start: 02-25-2024 End: 02-25-2024 ambulatory Brandon Chi Joaquim Facility:[facility] Start: 01-23-2024 Non-patient / Non-visit Dr. Cal Billings [facility] Work Phone: Start: 01-22-2024 Non-patient / Non-visit Dr. Cal Billings MD -[place] [facility] Work Phone: Start: 01-21-2024 Non-patient / Non-visit Dr. Cal Billings [facility] Work Phone: Start: 01-20-2024 Non-patient / Non-visit Dr. Macario Allen [facility] Work Phone: Start: 01-20-2024 Non-patient / Non-visit Dr. Luan Guzman MD [facility] Start: 01-19-2024 Non-patient / Non-visit Dr. Macario Allen [facility] Work Phone: Start: 01-19-2024 Non-patient / Non-visit Dr. Luan Guzman MD [facility] Start: 01-19-2024 ambulatory Brandon Chi [place]im Facility:[facility] Start: 01-19-2024 Non-patient / Non-visit Dr. Se Ellis MD [facility] Start: 01-18-2024 ambulatory Kal Hansen ty:[facility] Start: 01-18-2024 End: 01-23-2024 Evaluation and management of inpatient Dr. Cal Billings MD -[facility] Work Phone: Start: 12-20-2023 End: 12-20-2023 ambulatory Brandon Chi [place]im Facility:[facility] Start: 09-03-2023 End: 09-03-2023 ambulatory Brandon Chi [place]im Facility:[facility] Start: 08-06-2023 ambulatory Brandon Chi [place] [facility] Start: 08-06-2023 End: 08-06-2023 ambulatory Brandon Chi [place]im Facility:[facility] Start: 07-12-2023 End: 07-12-2023 ambulatory Brandon Chi [place]im Facility:[facility] Start: 07-05-2023 End: 07-05-2023 ambulatory Brandon March Facility:[facility] Start: 05-30-2023 End: 05-30-2023 ambulatory [facility] spital Work Phone: Start: 05-30-2023 End: 05-30-2023 [facility] Start: 05-17-2023 End: 05-17-2023 ambulatory [facility] Work Phone: Start: 05-17-2023 End: 05-17-2023 Patient encounter procedure [facility] D[facility]ometry Work Phone: Start: 05-16-2023 End: 05-16-2023 ambulatory [facility] Work Phone: Start: 05-16-2023 End: 05-16-2023 [facility] Start: 03-14-2023 End: 03-14-[address] Brandon March Work Phone: [facility] Work Phone: Start: 03-14-2023 End: 03-14-[address] [facility] Start: 12-27-2022 Non-patient / Non-visit Dr. Brandon March Work Phone: [facility] Start: 12-27-2022 End: 12-27-[address] Brandon March Work Phone: [facility]-Radiology, [facility] Work Phone: Start: 11-07-2022 End: 11-07-[address] Brandon March Work Phone: [facility] Work Phone: Start: 11-07-2022 End: 11-07-[address] [facility] Start: 10-11-2022 End: 10-11-[address] [facility] Start: 07-20-2022 End: 07-20-[address] Brandon March Work Phone: [facility] Start: 07-14-2022 End: 07-14-[address] Brandon March Work Phone: [facility] Work Phone: Start: 07-14-2022 End: 07-14-[address] [facility] Start: 06-21-2022 End: 06-21-[address] Brandon March Work Phone: [facility] Work Phone: Start: 06-21-2022 End: 06-21-[address] [facility] Start: 05-17-2022 End: 05-17-[address] Brandon March Work Phone: [facility] Work Phone: Start: 05-17-2022 End: 05-17-[address] [facility] Start: 04-21-[address] Brandon donald [facility] Start: 04-21-2022 Non-patient / Non-visit Dr. Brandon March Work Phone: [facility] Start: 04-18-2022 End: 04-18-[address] Brandon March Work Phone: [facility]Outpatient Breast Imaging Start: 04-13-2022 End: 04-13-[address] Brandon March Work Phone: [facility] Start: 03-22-2022 End: 03-22-[address] Brandon March Work Phone: [facility] Work Phone: Start: 03-22-2022 End: 03-22-[address] Brandon March Work Phone: [facility]-Laboratory Start: 03-22-2022 End: 03-22-[address] Brandon March Work Phone: [facility] Start: 01-23-2022 End: 01-23-[address] Brandon March Work Phone: [facility]-Pulmonary Services/Neurology Start: 01-19-2022 Non-patient / Non-visit Dr. Brandon March Work Phone: [facility] Start: 01-19-2022 End: 01-19-[address] Brandon March Work Phone: [facility]Cardi[facility] Services Start: 01-11-2022 End: 01-11-[address] Brandon March Work Phone: [facility] Start: 01-09-2022 Non-patient / Non-visit Dr. Brandon March Work Phone: [facility] Start: 12-30-2021 End: 12-30-[address] Brandon March Work Phone: [facility] Start: 12-26-2021 Non-patient / Non-visit Dr. Brandon March Work Phone: [facility] Start: 11-09-2021 End: 11-09-[address] Brandon March Work Phone: [facility] Work Phone: Start: 11-09-2021 End: 11-09-[address] [facility] Start: 08-10-2021 End: 08-10-[address] Brandon March Work Phone: [facility] Start: 07-26-2021 Non-patient / Non-visit Dr. Brandon March Work Phone: [facility] Start: 07-26-2021 End: 07-26-2021 Admission to same day surgery center Dr. Brandon March Work Phone: [facility]-Endoscopy Start: 07-22-2021 End: 07-22-[address] Brandon March Work Phone: [facility] Services/Neurology Start: 05-11-2021 End: 05-11-[address] Brandon [facility] Start: 05-06-2021 End: 05-06-[address] Brandon [facility] Start: 05-02-2021 End: 05-02-[address] Brandon March Work Phone: [facility]Laboratory Start: 04-11-2021 End: 04-11-[address] Brandon March Work Phone: [facility]-Radiology, [facility] Procedures Date Procedure Procedure Detail Performing Clinician Start: 04-23-[address] Brandon March MD Work Phone: Start: 03-27-2024 US scan of thyroid Dr. Brandon March MD Work Phone: Start: 03-12-2024 CT of thorax with contrast Dr. Brandon March MD Work Phone: Start: 01-20-2024 MRI of brain without contrast Dr. Brandon March MD Work Phone: Start: 01-18-2024 Computed tomography of abdomen and pelvis with intravenous contrast Dr. Brandon March MD Work Phone: Start: 01-18-2024 X-ray of chest, PA a nd lateral views Dr. Brandon March MD Work Phone: Start: 01-18-2024 CT of head without contrast Dr. Brandon March MD Work Phone: Start: 05-17-2023 Dual energy X-ray absorptiometry Start: 05-17-2023 Screening mammography Start: 05-16-2023 Urine culture Start: 12-27-2022 Plain X-ray of shoulder Dr. Brandon March Work Phone: Start: 12-27-[address] Brandon March Work Phone: Start: 10-11-[address] Brandon ellis Work Phone: Start: 04-18-2022 Screening mammography Logan March Work Phone: Start: 07-26-[address] Brandon donald Work Phone: Start: 07-22-2021 Influenza Types A,B Direct FA (CLARK) Dr. Brandon March Work Phone: Start: 07-22-2021 End: 07-22-2021 Respiratory syncytial virus antigen assay Dr. Brandon March Work Phone: Start: 04-11-2021 Inj/Asp [place] Jt Should/Hip/Knee Dr. Brandon March Work Phone: Influenza Types A,B Direct FA (CLARK) Dr. Brandon March Work Phone: Investigation of transfusion reaction Dr. Brandon March Work Phone: Microbial culture, routine D lg March Work Phone: Respiratory syncytia l virus antigen assay Dr. Brandon March Work Phone: Viral antigen assay Dr. Brandon March Work Phone: Plan of Treatment Date Care Activity Detail Author Start: 01-23-2024 Patient discharge [facility] Start: 01-21-2024 Application of intermittent pneumatic compression device [facility] Start: 01-21-2024 Referral to occupati onal therapist [facility] Start: 01-21-2024 Referral to service [facility] Start: 01-20-2024 Inhalation therapy procedure [facility] Start: 01-18-2024 Following clinical pathway protocol [facility] Start: 01-18-2024 Referral to chisel trimmer [facility] Start: 01-18-2024 Admission procedure [facility] Start: 03-14-2023 Procedure [facility] Start: 03-22-2022 Egg whole IgE ab rat io ser [facility] Start: 07-26-2021 Colonoscopy w/biopsy single/multiple COLONOSCOPY AND BIOPSY [facility] Work Phone: Start: 07-26-2021 Colsc flx w/rmvl of tumor polyp lesion snare tq COLONOSCOPY W/LESION REMOVAL [facility] Work Phone: Start: 07-26-2021 Egd transoral biopsy single/multiple EGD BIOPSY SINGLE/MULTIPLE [facility] Work Phone: Start: 11-29-2016 End: 11-29-2016 Bacteria identified Cx Nom (Wound) *Culture and Sensitivity, wound [facility] Work Phone: Banana IgE Ab [Units/volume] in Serum [facility] Beef IgE Ab [Units/volume] in Serum [facility] Celery IgE Ab [Units/volume] in Serum [facility] Cheese cheddar type IgE Ab [Units/volume] in Serum [facility] Chocolate IgE Ab [Units/volume] in Serum [facility] [place] IgE Ab [Units/volume] in Serum [facility] Cow milk IgE Ab [Units/volume] in Serum [facility] Fish [facility] Lactalbumin alpha Ig E Ab [Units/volume] in Serum [facility] Lettuce IgE Ab [Units/volume] in Serum [facility] Patient Education [facility] Work Phone: Patient referral [facility] Work Phone: [place] IgE Ab [Units/volume] in Serum [facility] Peanut IgE Ab [Units/volume] in Serum [facility] Pork IgE Ab [Units/volume] in Serum [facility] Soybean IgE Ab [Units/volume] in Serum [facility] Springer meat IgE Ab [Units/volume] in Serum [facility] Wheat IgE Ab [Units/volume] in Serum [facility] Immunizations Immunization Date Immunization Notes Care Provider Fa jose 11-13-[address] Brandon aMrch Work Phone: [facility] Payers Date Payer Category Payer Self-pay [id number] 2023 Self-pay [id number] 2005 Private Health Insurance [facility] [id number] 2004 Medicare [id number] Unknown [id number] 2.16.8 [id number] Unknown [id number] 2.16.8 40.1.159052.3.579.2.462 Unknown [id number] 2.16.8 40.1.532796.3.579.2.462 Unknown [id number] 2.16.8 40.1.078164.3.579.2.462 Unknown [id number] 2.16.8 40.1.270852.3.579.2.462 Unknown [id number] 2.16.8 40.1.845676.3.579.2.462 Unknown [id number] 2.16.8 40.1.818772.3.579.2.462 Unknown [id number] 2.16.8 40.1.908385.3.579.2.462 Unknown [id number] 2.16.8 40.1.662630.3.579.2.462 Unknown [id number] 2.16.8 40.1.092368.3.579.2.462 Unknown [id number] 2.16.8 40.1.413823.3.579.2.462 Unknown [id number] 2.16.8 40.1.127591.3.579.2.462 Unknown [id number] 2.16.8 40.1.916167.3.579.2.462 Unknown [id number] 2.16.8 40.1.013027.3.579.2.462 Unknown [id number] 2.16.8 40.1.847233.3.579.2.462 Unknown [id number] 2.16.8 40.1.018096.3.579.2.462 Unknown [id number] 2.16.8 40.1.592297.3.579.2.462 Unknown [id number] 2.16.8 40.1.848574.3.579.2.462 Unknown [id number] 2.16.8 40.1.196317.3.579.2.462 Unknown [id number] 2.16.8 40.1.226004.3.579.2.462 Unknown [id number] 2.16.8 40.1.154528.3.579.2.462 Unknown [id number] 2.16.8 40.1.942237.3.579.2.462 Unknown [id number] 2.16.8 40.1.666257.3.579.2.462 Unknown [id number] 2.16.8 40.1.214096.3.579.2.462 Unknown [id number] 2.16.8 40.1.539459.3.579.2.462 Social History Date Type Detail Facility Start: 05-02-2021 End: 07-20-2022 Tobacco smoking status NHIS Unknown if ever smoked [facility] Start: 11-12-2017 [facility] Start: 11-12-2017 Spouse/ Signif icant Other [facility] Start: 12-01-2017 Non-smoker [facility] Start: 1940 Sex Assigned At Female [facility] Start: 01-18-2024 Tobacco smoking status NHIS Never smoked tobacco (finding) [facility] Start: 05-01-2024 Sex Female (finding) [facility] Medical Equipment Procedure Code Equipment Code Equipment Origin al Text Equipment Identifier Dates DOUGH,CEMENT 6191-1-010 FDA Start: 05-01-2017 DOUGH,CEMENT 6191-1-010 FDA Start: 05-01-2017 HEADESD PINS FDA Start: 05-01-2017 HEADESD PINS FDA Start: 05-01-2017 HEADLESS PINS FDA Start: 05-01-2017 TRIATHLON CRUC R ET FEM COMP FDA Start: 05-01-2017 TRIATHLON PRIM TIBIAL BASEPLAT FDA Start: 05-01-2017 TRIATHLON TIBIAL INSERT-CS FDA Start: 05-01-2017 TRIATHLON X3 PATELLA FDA Star t: 05-01-2017 DOUGH,CEMENT 6191-1-010 FDA Start: 05-01-2017 DOUGH,CEMENT 6191-1-010 FDA Start: 05-01-2017 HEADESD PINS FDA Start: 05-01-2017 HEADESD PINS FDA Start: 05-01-2017 HEADLESS PINS FDA Start: 05-01-2017 TRIATHLON CRUC R ET FEM COMP FDA Start: 05-01-2017 TRIATHLON PRIM TIBIAL BASEPLAT FDA Start: 05-01-2017 TRIATHLON TIBIAL INSERT-CS FDA Start: 05-01-2017 TRIATHLON X3 PATELLA FDA Star t: 05-01-2017 DOUGH,CEMENT 6191-1-010 FDA Start: 05-01-2017 DOUGH,CEMENT 6191-1-010 FDA Start: 05-01-2017 HEADESD PINS FDA Start: 05-01-2017 HEADESD PINS FDA Start: 05-01-2017 HEADLESS PINS FDA Start: 05-01-2017 TRIATHLON CRUC R ET FEM COMP FDA Start: 05-01-2017 TRIATHLON PRIM TIBIAL BASEPLAT FDA Start: 05-01-2017 TRIATHLON TIBIAL INSERT-CS FDA Start: 05-01-2017 TRIATHLON X3 PATELLA FDA Star t: 05-01-2017 DOUGH,CEMENT 6191-1-010 FDA Start: 05-01-2017 DOUGH,CEMENT 6191-1-010 FDA Start: 05-01-2017 HEADESD PINS FDA Start: 05-01-2017 HEADESD PINS FDA Start: 05-01-2017 HEADLESS PINS FDA Start: 05-01-2017 TRIATHLON CRUC R ET FEM COMP FDA Start: 05-01-2017 TRIATHLON PRIM TIBIAL BASEPLAT FDA Start: 05-01-2017 TRIATHLON TIBIAL INSERT-CS FDA Start: 05-01-2017 TRIATHLON X3 PATELLA FDA Star t: 05-01-2017 DOUGH,CEMENT 6191-1-010 FDA Start: 05-01-2017 DOUGH,CEMENT 6191-1-010 FDA Start: 05-01-2017 HEADESD PINS FDA Start: 05-01-2017 HEADESD PINS FDA Start: 05-01-2017 HEADLESS PINS FDA Start: 05-01-2017 TRIATHLON CRUC R ET FEM COMP FDA Start: 05-01-2017 TRIATHLON PRIM TIBIAL BASEPLAT FDA Start: 05-01-2017 TRIATHLON TIBIAL INSERT-CS FDA Start: 05-01-2017 TRIATHLON X3 PATELLA FDA Star t: 05-01-2017 DOUGH,CEMENT 6191-1-010 FDA Start: 05-01-2017 DOUGH,CEMENT 6191-1-010 FDA Start: 05-01-2017 HEADESD PINS FDA Start: 05-01-2017 HEADESD PINS FDA Start: 05-01-2017 HEADLESS PINS FDA Start: 05-01-2017 TRIATHLON CRUC R ET FEM COMP FDA Start: 05-01-2017 TRIATHLON PRIM TIBIAL BASEPLAT FDA Start: 05-01-2017 TRIATHLON TIBIAL INSERT-CS FDA Start: 05-01-2017 TRIATHLON X3 PATELLA FDA Star t: 05-01-2017 DOUGH,CEMENT 6191-1-010 FDA Start: 05-01-2017 DOUGH,CEMENT 6191-1-010 FDA Start: 05-01-2017 HEADESD PINS FDA Start: 05-01-2017 HEADESD PINS FDA Start: 05-01-2017 HEADLESS PINS FDA Start: 05-01-2017 TRIATHLON CRUC R ET FEM COMP FDA Start: 05-01-2017 TRIATHLON PRIM TIBIAL BASEPLAT FDA Start: 05-01-2017 TRIATHLON TIBIAL INSERT-CS FDA Start: 05-01-2017 TRIATHLON X3 PATELLA FDA Star t: 05-01-2017 DOUGH,CEMENT 6191-1-010 FDA Start: 05-01-2017 DOUGH,CEMENT 6191-1-010 FDA Start: 05-01-2017 HEADESD PINS FDA Start: 05-01-2017 HEADESD PINS FDA Start: 05-01-2017 HEADLESS PINS FDA Start: 05-01-2017 TRIATHLON CRUC R ET FEM COMP FDA Start: 05-01-2017 TRIATHLON PRIM TIBIAL BASEPLAT FDA Start: 05-01-2017 TRIATHLON TIBIAL INSERT-CS FDA Start: 05-01-2017 TRIATHLON X3 PATELLA FDA Star t: 05-01-2017 DOUGH,CEMENT 6191-1-010 FDA Start: 05-01-2017 DOUGH,CEMENT 6191-1-010 FDA Start: 05-01-2017 HEADESD PINS FDA Start: 05-01-2017 HEADESD PINS FDA Start: 05-01-2017 HEADLESS PINS FDA Start: 05-01-2017 TRIATHLON CRUC R ET FEM COMP FDA Start: 05-01-2017 TRIATHLON PRIM TIBIAL BASEPLAT FDA Start: 05-01-2017 TRIATHLON TIBIAL INSERT-CS FDA Start: 05-01-2017 TRIATHLON X3 PATELLA FDA Star t: 05-01-2017 DOUGH,CEMENT 6191-1-010 FDA Start: 05-01-2017 DOUGH,CEMENT 6191-1-010 FDA Start: 05-01-2017 HEADESD PINS FDA Start: 05-01-2017 HEADESD PINS FDA Start: 05-01-2017 HEADLESS PINS FDA Start: 05-01-2017 TRIATHLON CRUC R ET FEM COMP FDA Start: 05-01-2017 TRIATHLON PRIM TIBIAL BASEPLAT FDA Start: 05-01-2017 TRIATHLON TIBIAL INSERT-CS FDA Start: 05-01-2017 TRIATHLON X3 PATELLA FDA Star t: 05-01-2017 DOUGH,CEMENT 6191-1-010 FDA Start: 05-01-2017 DOUGH,CEMENT 6191-1-010 FDA Start: 05-01-2017 HEADESD PINS FDA Start: 05-01-2017 HEADESD PINS FDA Start: 05-01-2017 HEADLESS PINS FDA Start: 05-01-2017 TRIATHLON CRUC R ET FEM COMP FDA Start: 05-01-2017 TRIATHLON PRIM TIBIAL BASEPLAT FDA Start: 05-01-2017 TRIATHLON TIBIAL INSERT-CS FDA Start: 05-01-2017 TRIATHLON X3 PATELLA FDA Star t: 05-01-2017 DOUGH,CEMENT 6191-1-010 FDA Start: 05-01-2017 DOUGH,CEMENT 6191-1-010 FDA Start: 05-01-2017 HEADESD PINS FDA Start: 05-01-2017 HEADESD PINS FDA Start: 05-01-2017 HEADLESS PINS FDA Start: 05-01-2017 TRIATHLON CRUC R ET FEM COMP FDA Start: 05-01-2017 TRIATHLON PRIM TIBIAL BASEPLAT FDA Start: 05-01-2017 TRIATHLON TIBIAL INSERT-CS FDA Start: 05-01-2017 TRIATHLON X3 PATELLA FDA Star t: 05-01-2017 DOUGH,CEMENT 6191-1-010 FDA Start: 05-01-2017 DOUGH,CEMENT 6191-1-010 FDA Start: 05-01-2017 HEADESD PINS FDA Start: 05-01-2017 HEADESD PINS FDA Start: 05-01-2017 HEADLESS PINS FDA Start: 05-01-2017 TRIATHLON CRUC R ET FEM COMP FDA Start: 05-01-2017 TRIATHLON PRIM TIBIAL BASEPLAT FDA Start: 05-01-2017 TRIATHLON TIBIAL INSERT-CS FDA Start: 05-01-2017 TRIATHLON X3 PATELLA FDA Star t: 05-01-2017 DOUGH,CEMENT 6191-1-010 FDA Start: 05-01-2017 DOUGH,CEMENT 6191-1-010 FDA Start: 05-01-2017 HEADESD PINS FDA Start: 05-01-2017 HEADESD PINS FDA Start: 05-01-2017 HEADLESS PINS FDA Start: 05-01-2017 TRIATHLON CRUC R ET FEM COMP FDA Start: 05-01-2017 TRIATHLON PRIM TIBIAL BASEPLAT FDA Start: 05-01-2017 TRIATHLON TIBIAL INSERT-CS FDA Start: 05-01-2017 TRIATHLON X3 PATELLA FDA Star t: 05-01-2017 Goals Date Patient Goal Desired Activity /State Functional Status Date Assessment Result Facility 01-23-2024 Functional status Bedrest [facility] Work Phone: Mental Status Date Assessment Result Facility 01-23-2024 Cognitive function Voice/Name [facility] Work Phone: 07-26-2021 Cognitive function Voice/Name [facility] Work Phone: Clinical Notes 01-19-2024 to 04-24-2024 Note Date & Type Note Facility 04-24-2024 Nuclear medicine Diagnostic study note [facility] Imaging Services [address] [place] [address] [id number] Thyroid Uptake Single or Mult MR#: [id number] Acct: [id number] Name: CARLEY SPRAGUE Rep #: [id number] : 1940 F 83 From: Mohit Galloway MD PCP: Dr. Brandon March MD Status: RAÚL SERNA Study:Thyroid Uptake Single or Mult Date of Exam: 04/23/24 Exam# [id number] Ordering Dr: Brandon March MD PROCEDURE: THYROID UPTAKE SINGLE OR MULT REASON FOR EXAM: NONTOXIC SINGLE THYROID NODULE COMPARISON: None. TECHNIQUE: Anterior and posterior imaging of the thyroid gland. RADIOPHARMACEUTICAL: 317 uCi of iodine 123 orally on . FINDINGS: Thyroid bed: Activity seen in the right lobe. Decreased activity in the left lobe of the thyroid. Uptake at 4 hours is 4.3%. Uptake at 24 hours is 7.2% this is in keeping with hypothyroidism. NM/Thyroid Uptake Single or Mult IMPRESSION: Decreased activity in the left lobe. Reading Location: [id number] CC: Dr. Brandon March MD ~ Patient Representative: Signed [facility] 01-23-2024 Note [facility] Medical Records Department [address] [place] [address] Discharge Summary 01/23/24 1400 MR#: [id number] Acct: [id number] Name: CARLEY SPRAGUE Rep #: [id number] : 1940 83 From: Cal Billings MD PCP: Dr. Brandon March MD Status:ADM IN [id number] Providers Date of Admission: 01/18/24 Primary Care Physician: Dr. Brandon March MD Consultations 01/18/24 23:41 Consult: Cardiology Routine Consulting Provider: [place] [facility] Reason for Consult: Hypertensive Emergency with Elevated Troponins. EMERGENT Consult: No MD Notified: Yes Date Notified: 01/18/24 Time Notified: 23:02 Method of Notification: Verbal Reason For Visit: HYPERTENSIVE EMERGENCY WITH ELEVATED TROPONINS AND Diagnosis Discharge Diagnosis (1) Hypertensive emergency: Status: Acute Code(s): I16.1 - Hypertensive emergency Medications at Discharge Home Medications acetaminophen 325 mg tablet 650 mg (2 x 325 mg) PO Q6H PRN PRN Mild Pain (0-3/10)/Headache 11/30/17 loratadine 10 mg tablet 10 mg PO DAILY PRN ALLERGIES 11/30/17 losartan 100 mg tablet 100 mg PO DAILY heart #30 tabs 11/30/17 paroxetine HCl 20 mg tablet 20 mg PO DAILY mood #30 tabs 11/30/17 albuterol sulfate 90 mcg/actuation aerosol inhaler 1 puff inhalation Q6H PRN SOB 07/25/21 cholecalciferol (vitamin D3) 25 mcg (1,000 unit) capsule (Vitamin D3) 25 mcg PO DAILY supplement 07/25/21 hydrochlorothiazide 25 mg tablet 25 mg PO DAILY blood pressure 07/25/21 multivitamin 1 tab PO DAILY SUPPLEMENT 12/26/21 dexlansoprazole 60 mg capsule,biphase delayed release (Dexilant) 60 mg PO BID reflux #120 caps 12/30/21 clonidine 0.3 mg/24 hr weekly transdermal patch 1 patch transdermal QWEEK 07/05/23 clonidine HCl 0.1 mg tablet 0.1 mg PO DAILY PRN high blood pressure 07/05/23 inclisiran 284 mg/1.5 mL subcutaneous syringe 284 mg subcut [id number] cholesterol 07/05/23 linaclotide 72 mcg capsule (Linzess) 72 mcg PO DAILY PRN constiopation 07/05/23 meclizine 25 mg tablet 25 mg PO TID PRN PRN Vertigo 5 days #15 tabs 01/23/24 metoprolol tartrate 25 mg tablet 12.5 mg (1/2 x 25 mg) PO BID 30 days #30 tabs 01/23/24 Hospital Course Operations None Procedures 2-D Echocardiogram Summary of Care Provided Minutes Spent on Discharge: 33 Hospital Course: Per HPI: CARLEY SPRAGUE, is a 83 F with a past medical history of poorly-controlled hypertension; on losartan, hydrochlorothiazide and clonidine patch with as needed oral clonidine for blood pressure spikes, hyperlipidemia; on inclisiran injections q. 6 months, overweight; with BMI of 29.7 this admission, history of CVA; with hemiplegia and hemiparesis, history of mitral valve prolapse, CKD; stage IIIa, history of anemia, history of B12 deficiency, history of tubular adenoma of colon, history of diverticulitis, history of IBS of constipation-type; on linaclotide, history of cataracts, history of leg cramps, hiatal hernia, GERD; with history of esophagitis and gastritis on dexlansoprazole 60 mg p.o. BID, history of depression; on paroxetine, history of fibromyalgia, history of previous cardiac catheterization, history of CTS of the Right hand; s/p release, history of hysterectomy, history of cholecystectomy, history of varicose veins; s/p sclerotherapy, history of D C, listed allergy to valsartan (rash), listed allergy to amlodipine (?), listed allergy to enalapril (?), listed allergy to minoxidil (?), listed allergy to risedronate (?) and OA; with chronic back pain and history of TKR who presents to [facility] ER complaining of highly elevated blood pressure of 238/105 mmHg at home along with nausea and vomiting. Ms. Sprague reports her symptoms began approximately 4 weeks ago when she was seen by one of her physicians for uncontrolled hypertension and she was taken off of her losartan and placed on a different medication which she does not remember. She continued to take her hydrochlorothiazide and clonidine 0.3 mg TTS patch weekly. She suspected the new medication caused her to have a dry mouth so she stopped taking this medication and went back on her 100 mg of losartan daily approximately 1 week ago. Then earlier this evening she got up from a seated position and felt lightheaded and nauseous. She then took her blood pressure which was highly elevated at 238/105 mmHg so she then tried to take oral clonidine and immediately vomited up this medication so she then decided to activate EMS to be brought in for further evaluation and treatment. EMS did give IV Zofran en- route. She denies associated headache, visual changes, upper respiratory infection symptoms, neck pain, chest pain, shortness of breath, abdominal pain, dysuria, numbness or tingling or new focal neurologic deficits. In the ER she was noted to have an initial blood pressure of 246/138 mmHg and was emergently treat (more content not included)... [facility] 01-19-2024 Evaluation note Diagnosis Onset Date Resolution Cardiac murmur acute January 172023 10:57pm Elevated troponin level not due myocardial infarction acute January 17 10:57pm History of esophagitis acute De 2023 10:57pm History of gastritis acute Dece mb2023 10:57pm Hypertensive emergency acute De 2023 10:57pm Hypokalemia acute January 18, 2024 10:57pm Leukocytosis, unspecified acute January 17 10:57pm Acid reflux chronic January 18, 2024 10:57pm Intractable nausea and vomiting resolved January 17 10:57pm History of CVA (cerebrovascular accident) inactive January 17 10:57pm Hypertensive emergency acute [facility] 2024 10:53am Chronic kidney disease, stage 3a chronic February 24 10:53am Hyperlipidemia chronic February 242024 10:53am [facility] Work Phone: Evaluation note* Diagnosis Onset Date Resolution Status Family history of colon cancer acute Hiatal hernia acute [facility] Work Phone: Evaluation note* Diagnosis Onset Date Resolution Status Esophagitis acute Gastritis acute Tubular adenoma of colon acu te [facility] Work Phone: Evaluation note* Diagnosis Onset Date Resolution Status Abdominal pain acute Palpitations acute Essential (primary) hypertension chronic Abdominal pain acute Acid reflux chronic Alternating constipation and diarrhea chronic [facility] Work Phone: Evaluation note* Diagnosis Onset Date Resolution Status Abdominal pain acute Acid reflux chronic Alternating constipation and diarrhea chronic Palpitations acute Essential (primary) hypertension chronic [facility] Work Phone: Evaluation note* Diagnosis Onset Date Resolution Status Abdominal pain acute Acid reflux chronic Alternating constipation and diarrhea chronic Palpitations acute Essential (primary) hypertension chronic Bruising acute Palpitations acute Essential (primary) hypertension chronic Hyperlipidemia chronic [facility] Work Phone: Evaluation note* Diagnosis Onset Date Resolution Status Bruising acute Palpitations acute Essential (primary) hypertension chronic Hyperlipidemia chronic [facility] Work Phone: Evaluation note* Diagnosis Onset Date Resolution Status Primary osteoarthritis, right shoulder acute [facility] Work Phone: Evaluation noteNo assessment information available [facility] Work Phone: Reason for referral (narrative)No reason for referral information availableWLake[facility] Work [facility]: Chief Complaint and Reason for Visit Chief Complaint OSTEOARTHRITIS OF RI GHT SHOULDER Irritable bowel syndrome INT LABS E-ORDER Reason for Visit Family history of co elodia cancer Hiatal hernia Chief Complaint OSTEOARTHRITIS OF RI GHT SHOULDER Irritable bowel syndrome INT LABS E-ORDER R68.83 Reason for Visit Family history of co elodia cancer Hiatal hernia Chief Complaint R68.83 2 WK FU Reason for Visit Esophagitis Gastritis Tubular adenoma of colon Chief Complaint Amb Documentation FU Amb Documentation palp ref. by JOAQUIM CEREBRAL INFARCTION PALPITATIONS 3 MO FU E ORDER Reason for Visit Abdominal pain Palpitations Essential (primary) hypertension Abdominal pain Acid reflux Alternating constipation and diarrhea Chief Complaint 3 MO FU E ORDER 3 M FU SCREENING 30 DAY EVENT RECORDER Reason for Visit Abdominal pain Acid reflux Alternating constipation and diarrhea Palpitations Essential (primary) hypertension Chief Complaint 3 MO FU E ORDER 3 M FU SCREENING 30 DAY MONITOR 30 DAY EVENT RECORDER CHILLS WITHOUT FEVER 3 M FU Reason for Visit Abdominal pain Acid reflux Alternating constipation and diarrhea Palpitations Essential (primary) hypertension Bruising Palpitations Essential (primary) hypertension Hyperlipidemia Chief Complaint 3 M FU Reason for Visit Bruising Palpitations Essential (primary) hypertension Hyperlipidemia Chief Complaint RIGHT SHOULDER INJEC TION RIGHT SHOULDER INJECTION Reason for Visit Primary osteoarthrit is, right shoulder Chief Complaint SCREENING POST QUINN Chief Complaint Admit Date HYPERTENSIVE EMERGENCY WITH ELEVATED TRO PONINS AND January 18, 2024 10:57pm HYPERTENSIVE EMERGENCY WITH ELEVATED TRO PONINS AND January 19, 2024 9:06am HYPERTENSIVE EMERGENCY WITH ELEVATED TRO PONINS AND January 19, 2024 1:54pm HYPERTENSIVE EMERGENCY WITH ELEVATED TRO PONINS AND January 20, 2024 10:03am HYPERTENSIVE EMERGENCY WITH ELEVATED TRO PONINS AND January 20, 2024 3:27pm HYPERTENSIVE EMERGENCY WITH ELEVATED TRO PONINS AND January 21, 2024 3:35pm HYPERTENSIVE EMERGENCY WITH ELEVATED TRO PONINS AND January 22, 2024 9:46am HYPERTENSIVE EMERGENCY WITH ELEVATED TRO PONINS AND January 23, 2024 2:00pm S/P [facility] 01/22February 25, 2024 1 0:53am DRY EYE February 27, 2024 9 :52am LUNG NODULE March 12, 2024 1 :17pm VERTIGO. RX HERE March 14, 2024 1 0:30am THYROID NODULE March 27, 2024 1:58pm THYROID NODULE April 23, 2024 8:1 4am Reason for Visit Admit Date Cardiac murmur January 18, 2024 1 0:57pm Elevated troponin level not due myocardi al infarction January 18, 2024 10:57pm History of esophagitis January 17 10:57pm History of gastritis January 18, 2024 10:57pm Hypertensive emergency January 17 10:57pm Hypokalemia January 18, 2024 1 0:57pm Leukocytosis, unspecified January 18, 2024 10:57pm Acid reflux January 18, 2024 1 0:57pm Intractable nausea and vomiting January 18, 2024 10:57pm History of CVA (cerebrovascular accident ) January 18, 2024 10:57pm Hypertensive emergency February 24 10:53am Chronic kidney disease, stage 3a February 25, 2024 10:53am Hyperlipidemia February 25, 2024 1 0:53am Family History No Family History Records Found Relationship Condition Age at Onset Recorded Date/T patricia mother Malignant neoplasm Unknown father Malignant neoplasm of colon Unknown Relationship Condition Age at Onset Recorded Date/T patricia mother Malignant neoplasm Unknown father Malignant neoplasm of colon Unknown grandmother Malignant neoplasm of breast Unknown Advance Directives No Advanced Directives Records Found Advance Directive Response Recorded Date/ Time Living Will No June 09, 2018 11:59am Power of International Organizer No June 09 11:59am Advance Directive Response Recorded Date/ Time Living Will No July 25, 2021 12:07pm Power of International Organizer No July 25 12:07pm Advance Directive Response Recorded Date/ Time Living Will No July 25, 2021 11:07am Power of International Organizer No July 25 11:07am Advance Directive Response Recorded Date/ Time Living Will No January 18 12:44am Do you have a Healthcare Power of International Organizer? No January 19, 2024 12:44am Summary Purpose Additional Source Comments Goals (unrecognized section and content) Goals may be documented in a n alternate sectionGoals may be documented in an alternate sectionGoals may be documented in an alternate sectionGoals may be documented in an alternate sectionGoals may be documented in an alternate sectionGoals may be documented in an alternate sectionGoals may be documented in an alternate sectionGoals may be documented in an alternate sectionGoals may be documented in an alternate sectionGoals may be documented in an alternate sectionGoals may be documented in an alternate sectionGoals may be documented in an alternate section Care Teams (unrecognized sec tion and content) Team Status: Active Member Role Status Dates Dr. Brandon March MD Family Provider Active Dr. Brandon March MD Primary Care Provider Active Team Status: Inactive Member Role Status Dates Dr. Brandon March MD Primary Care Provider, Referring Provider Active Dr. Snia Bloom DO Attending Provider Active Team Status: Inactive Member Role Status Dates Dr. Brandon March MD Primary Care Provider, Referring Provider Active Dr. Bennie Landrum MD Attending Provider Active Team Status: Active Member Role Status Dates Dr. Brandon March MD Primary Care Provider Active Lory Sahni Attending Provider Active Team Status: Active Member Role Status Dates Dr. Brandon March MD Primary Care Provider Active Marissa Howard Attending Provider Active Team Status: Active Member Role Status Dates Dr. Brandon March MD Primary Care Provider Active Dr. Bennie Landrum MD Attending Provider Active Team Status: Inactive Member Role Status Dates Dr. Brandon March MD Primary Care Provider Active Dr. Bennie Landrum MD Attending Provider, Referring Pro vider Active Team Status: Inactive Member Role Status Dates Dr. Brandon March MD Primary Care Provider Active Dr. Sina Bloom DO Attending Provider Active Team Status: Inactive Member Role Status Dates Dr. Brandon March MD Primary Care Provider, Referring Provider Active Jazmyn Cabrera PA, PA Attending Provider Active Team Status: Inactive Member Role Status Dates Dr. Brandon March MD Primary Care Provi wes, Attending Provider, Referring Provider Active Team Status: Inactive Member Role Status Dates Dr. Brandon March MD Primary Care Provider, Attending Provider Active Team Status: Inactive Member Role Status Dates Dr. Brandon March MD Primary Care Provider Active Dr. Sam Atkinson MD Attending Provider Active Team Status: Active Member Role Status Dates Dr. Brandon March MD Primary Care Provider Active Dr. Bennie Landrum MD Attending Provider Active Jazmyn Cabrera PA, PA Referring Provider Active Team Status: Active Member Role Status Dates Dr. Brandon March MD Primary Care Provider Active Dr. Albert Ward MD Referring Provider, Other Provi wes Active Jeannine Shannon NP-Josesito Attending Provider Active Team Status: Inactive Member Role Status Dates Dr. Brandon March MD Primary Care Provider Active Dr. Serjio Ramesh MD Attending Provider, Referring P rovider Active Team Status: Inactive Member Role Status Dates Dr. Brandon March MD Primary Care Provider Active Dr. Albert Ward MD Attending Provider, Referring P rovider Active Team Status: Active Member Role Status Dates Dr. Brandon March MD Primary Care Provi wes, Attending Provider, Referring Provider Active Team Status: Active Member Role Status Dates Dr. Brandon March MD Primary Care Provider Active Team Status: Inactive Member Role Status Dates Dr. Brandon March MD Primary Care Provider Active Start: January 18, 2024 End: January 23, 2024 Dr. Florencio Camargo , Emergency Provider Activ e Start: January 18, 2024 End: January 23, 2024 Dr. Kal Wright DO Admit Provider Active Start: January 18, 2024 End: January 23, 2024 Dr. Kal Wright DO Other Provider Active Start: January 18, 2024 End: January 23, 2024 Dr. Linda Lee MD Other Provider Active Start: January 18, 2024 End: January 23, 2024 Dr. Bárbara Sandoval MD Other Provider Active Star t: January 18, 2024 End: January 23, 2024 Dr. Moisés Bartlett MD Other Provider Active Sta rt: January 18, 2024 End: January 23, 2024 Dr. Bennie Landrum MD Other Provider Active Start : January 18, 2024 End: January 23, 2024 Dr. Se Ellis MD Other Provider Active Star t: January 18, 2024 End: January 23, 2024 Dr. Luan Guzman MD Other Provider Active St art: January 18, 2024 End: January 23, 2024 Dr. Ronny Wilson MD Other Provider Active Start: January 18, 2024 End: January 23, 2024 Dr. Kevin Nesbitt MD Other Provider Active S tart: January 18, 2024 End: January 23, 2024 Dr. Arthur Hernandez MD Other Provider Active Start: January 18, 2024 End: January 23, 2024 Son Garrido WARP COILER, WARP COILER-C Other Provider Active Start : January 18, 2024 End: January 23, 2024 Jazmyn Cabrera PA, PA Other Provider Active Start: January 18, 2024 End: January 23, 2024 Dr. Macario Allen , Other Provider Active S tart: January 18, 2024 End: January 23, 2024 Dr. Cal Billings MD Attending Provider Active Start: January 18, 2024 End: January 23, 2024 Team Status: Active Member Role Status Dates Dr. Brandon March MD Primary Care Provider Active Start: January 19, 2024 Dr. Se Ellis MD Attending Provider Active Start: January 19, 2024 Team Status: Active Member Role Status Dates Dr. Brandon Marhc MD Primary Care Provider Active Start: January 19, 2024 Dr. Florencio Camargo , DO Emergency Provider Activ e Start: January 19, 2024 Dr. Kal Wright , DO Admit Provider Active Start: January 19, 2024 Dr. Kal Wright , Other Provider Active Start: January 19, 2024 Dr. Macario Allen , Other Provider Active S tart: January 19, 2024 Dr. Linda Lee MD Other Provider Active Start: January 19, 2024 Dr. Bárbara Sandoval MD Other Provider Active Star t: January 19, 2024 Dr. Moisés Bartlett MD Other Provider Active Sta rt: January 19, 2024 Dr. Bennie Landrum MD Other Provider Active Start : January 19, 2024 Dr. Se Ellis MD Other Provider Active Star t: January 19, 2024 Dr. Luan Guzman MD Attending Provider Active Start: January 19, 2024 Dr. Luan Guzman MD Other Provider Active St art: January 19, 2024 Dr. Ronny Wilson MD Other Provider Active Start: January 19, 2024 Dr. Kevin Nesbitt MD Other Provider Active S tart: January 19, 2024 Dr. Arthur Hernandez MD Other Provider Active Start: January 19, 2024 Son Garrido WARP COILER, WARP COILER-C Other Provider Active Start : January 19, 2024 Jazmyn Cabrera PA, PA Other Provider Active Start: January 19, 2024 Team Status: Active Member Role Status Dates Dr. Brandon March MD Primary Care Provider Active Start: January 19, 2024 Dr. Florencio Camargo DO Emergency Provider Activ e Start: January 19, 2024 Dr. Kal Wright DO Admit Provider Active Start: January 19, 2024 Dr. Kal Wright DO Other Provider Active Start: January 19, 2024 Dr. Macario Allen DO Attending Provider Active Start: January 19, 2024 Dr. Macario Allen DO Other Provider Active S tart: January 19, 2024 Dr. Linda Lee MD Other Provider Active Start: January 19, 2024 Dr. Bárbara Sandoval MD Other Provider Active Star t: January 19, 2024 Dr. Moisés Bartlett MD Other Provider Active Sta rt: January 19, 2024 Dr. Bennie Landrum MD Other Provider Active Start : January 19, 2024 Dr. Se Ellis MD Other Provider Active Star t: January 19, 2024 Dr. Luan Guzman MD Other Provider Active St art: January 19, 2024 Dr. Ronny Wilson MD Other Provider Active Start: January 19, 2024 Dr. Kevin Nesbitt MD Other Provider Active S tart: January 19, 2024 Dr. Arthur Hernandez MD Other Provider Active Start: January 19, 2024 Son Garrido WARP COILER, WARP COILER-C Other Provider Active Start : January 19, 2024 Jazmyn MCNAMARA, PA Other Provider Active Start: January 19, 2024 Team Status: Active Member Role Status Dates Dr. Brandon March MD Primary Care Provider Active Start: January 20, 2024 Dr. Florencio Camargo , DO Emergency Provider Activ e Start: January 20, 2024 Dr. Kal Wright , DO Admit Provider Active Start: January 20, 2024 Dr. Kal Wright , DO Other Provider Active Start: January 20, 2024 Dr. Macario Allen , Other Provider Active S tart: January 20, 2024 Dr. Linda Lee MD Other Provider Active Start: January 20, 2024 Dr. Bárbara Sandoval MD Other Provider Active Star t: January 20, 2024 Dr. Moisés Bartlett MD Other Provider Active Sta rt: January 20, 2024 Dr. Bennie Landrum MD Other Provider Active Start : January 20, 2024 Dr. Se Ellis MD Other Provider Active Star t: January 20, 2024 Dr. Luan Guzman MD Attending Provider Active Start: January 20, 2024 Dr. Luan Guzman MD Other Provider Active St art: January 20, 2024 Dr. Ronny Wilson MD Other Provider Active Start: January 20, 2024 Dr. Kevin Nesbitt MD Other Provider Active S tart: January 20, 2024 Dr. Arthur Hernandez MD Other Provider Active Start: January 20, 2024 Son Garrido WARP COILER, WARP COILER-C Other Provider Active Start : January 20, 2024 Jazmyn MCNAMARA, PA Other Provider Active Start: January 20, 2024 Team Status: Active Member Role Status Dates Dr. Brandon March MD Primary Care Provider Active Start: January 20, 2024 Dr. Florencio Camargo , DO Emergency Provider Activ e Start: January 20, 2024 Dr. Kal Wright , DO Admit Provider Active Start: January 20, 2024 Dr. Kal Wright DO Other Provider Active Start: January 20, 2024 Dr. Macario Allen , Attending Provider Active Start: January 20, 2024 Dr. Macario Allen , Other Provider Active S tart: January 20, 2024 Dr. Linda Lee MD Other Provider Active Start: January 20, 2024 Dr. Bárbara Sandoval MD Other Provider Active Star t: January 20, 2024 Dr. Moisés Bartlett MD Other Provider Active Sta rt: January 20, 2024 Dr. Bennie Landrum MD Other Provider Active Start : January 20, 2024 Dr. Se Ellis MD Other Provider Active Star t: January 20, 2024 Dr. Luan Guzman MD Other Provider Active St art: January 20, 2024 Dr. Ronny Wilson MD Other Provider Active Start: January 20, 2024 Dr. Kevin Nesbitt MD Other Provider Active S tart: January 20, 2024 Dr. Arthur Hernandez MD Other Provider Active Start: January 20, 2024 Son Garrido WARP COILER, WARP COILER-C Other Provider Active Start : January 20, 2024 Jazmyn Cabrera PA, PA Other Provider Active Start: January 20, 2024 Team Status: Active Member Role Status Dates Dr. Brandon March MD Primary Care Provider Active Start: January 21, 2024 Dr. Florencio Camargo DO Emergency Provider Activ e Start: January 21, 2024 Dr. Kal Wright DO Admit Provider Active Start: January 21, 2024 Dr. Kal Wright DO Other Provider Active Start: January 21, 2024 Dr. Linda Lee MD Other Provider Active Start: January 21, 2024 Dr. Bárbara Sandoval MD Other Provider Active Star t: January 21, 2024 Dr. Moisés Bartlett MD Other Provider Active Sta rt: January 21, 2024 Dr. Bennie Landrum MD Other Provider Active Start : January 21, 2024 Dr. Se Ellis MD Other Provider Active Star t: January 21, 2024 Dr. Luan Guzman MD Other Provider Active St art: January 21, 2024 Dr. Ronny Wilson MD Other Provider Active Start: January 21, 2024 Dr. Kevin Nesbitt MD Other Provider Active S tart: January 21, 2024 Dr. Arthur Hernandez MD Other Provider Active Start: January 21, 2024 Son Garrido WARP COILER, WARP COILER-C Other Provider Active Start : January 21, 2024 Jazmyn Cabrera PA, PA Other Provider Active Start: January 21, 2024 Dr. Cal Billings MD Attending Provider Active Start: January 21, 2024 Dr. Cal Billings MD Other Provider Active Start: January 21, 2024 Dr. Macario Allen , DO Other Provider Active S tart: January 21, 2024 Team Status: Active Member Role Status Dates Dr. Brandon March MD Primary Care Provider Active Start: January 22, 2024 Dr. Florencio Camargo , Emergency Provider Activ e Start: January 22, 2024 Dr. Kal Wright , DO Admit Provider Active Start: January 22, 2024 Dr. Kal Wright , Other Provider Active Start: January 22, 2024 Dr. Linda Lee MD Other Provider Active Start: January 22, 2024 Dr. Bárbara Sandoval MD Other Provider Active Star t: January 22, 2024 Dr. Moisés Bartlett MD Other Provider Active Sta rt: January 22, 2024 Dr. Bennie Landrum MD Other Provider Active Start : January 22, 2024 Dr. Se Ellis MD Other Provider Active Star t: January 22, 2024 Dr. Luan Guzman MD Other Provider Active St art: January 22, 2024 Dr. Ronny Wilson MD Other Provider Active Start: January 22, 2024 Dr. Kevin Nesbitt MD Other Provider Active S tart: January 22, 2024 Dr. Arthur Hernandez MD Other Provider Active Start: January 22, 2024 Son Garrido WARP COILER, WARP COILER-C Other Provider Active Start : January 22, 2024 Jazmyn Cabrera PA, PA Other Provider Active Start: January 22, 2024 Dr. Cal Billings MD Attending Provider Active Start: January 22, 2024 Dr. Cal Billings MD Other Provider Active Start: January 22, 2024 Dr. Macario Allen , Other Provider Active S tart: January 22, 2024 Team Status: Active Member Role Status Dates Dr. Brandon March MD Primary Care Provider Active Start: January 23, 2024 Dr. Florencio Camargo , Emergency Provider Activ e Start: January 23, 2024 Dr. Kal Wright , DO Admit Provider Active Start: January 23, 2024 Dr. Kal Wright , Other Provider Active Start: January 23, 2024 Dr. Linda Lee MD Other Provider Active Start: January 23, 2024 Dr. Bárbara Sandoval MD Other Provider Active Star t: January 23, 2024 Dr. Moisés Bartlett MD Other Provider Active Sta rt: January 23, 2024 Dr. Bennie Landrum MD Other Provider Active Start : January 23, 2024 Dr. Se Ellis MD Other Provider Active Star t: January 23, 2024 Dr. Luan Guzman MD Other Provider Active St art: January 23, 2024 Dr. Ronny Wilson MD Other Provider Active Start: January 23, 2024 Dr. Kevin Nesbitt MD Other Provider Active S tart: January 23, 2024 Dr. Arthur Hernandez MD Other Provider Active Start: January 23, 2024 Son Garrido W[employer], [employer]-C Other Provider Active Start : January 23, 2024 Jazmyn Cabrera PA, PA Other Provider Active Start: January 23, 2024 Dr. Macario Allen DO Other Provider Active S tart: January 23, 2024 Dr. Cal Billings MD Attending Provider Active Start: January 23, 2024 Dr. Cal Billings MD Other Provider Active Start: January 23, 2024 Team Status: Inactive Member Role Status Dates Dr. Brandon March MD Primary Care Provider Active Start: February 25, 2024 End: February 25, 2024 Dr. Brandon March MD Referring Provider Active Start: February 25, 2024 End: February 25, 2024 Dr. Luan Guzman MD Attending Provider Active Start: February 25, 2024 End: February 25, 2024 Team Status: Inactive Member Role Status Dates Dr. Brandon March MD Primary Care Provider Active Start: February 27, 2024 End: February 27, 2024 Dr. Denny Hargrove MD Attending Provider Active Start: February 27, 2024 End: February 27, 2024 Dr. Denny Hargrove MD Referring Provider Active Start: February 27, 2024 End: February 27, 2024 Team Status: Inactive Member Role Status Dates Dr. Brandon March MD Primary Care Provider Active Start: March 12, 2024 End: March 12, 2024 Dr. Brandon March MD Attending Provider Active Start: March 12, 2024 End: March 12, 2024 Dr. Brandon March MD Referring Provider Active Start: March 12, 2024 End: March 12, 2024 Team Status: Inactive Member Role Status Dates Dr. Brandon March MD Primary Care Provider Active Start: March 14, 2024 End: March 14, 2024 Dr. Brandon March MD Attending Provider Active Start: March 14, 2024 End: March 14, 2024 Dr. Cal Billings MD Referring Provider Active Start: March 14, 2024 End: March 14, 2024 Team Status: Inactive Member Role Status Dates Dr. Brandon March MD Primary Care Provider Active Start: March 27, 2024 End: March 27, 2024 Dr. Brandon March MD Attending Provider Active Start: March 27, 2024 End: March 27, 2024 Dr. Brandon March MD Referring Provider Active Start: March 27, 2024 End: March 27, 2024 Team Status: Inactive Member Role Status Dates Dr. Brandon March MD Primary Care Provider Active Start: April 23, 2024 End: April 23, 2024 Dr. Brandon March MD Attending Provider Active Start: April 23, 2024 End: April 23, 2024 Dr. Brandon March MD Referring Provider Active Start: April 23, 2024 End: April 23, 2024 INFORMATION SOURCE (unrecogn ized section and content) DATE CREATED AUTHOR 06/17/2024 [facility] FOR RECORDS PERTAINING TO PATIENTS WHO ARE OR HAVE BEEN ENROLLED IN A CHEMICAL DEPENDENCY/SUBSTANCEABUSE PROGRAM, SOME INFORMATION MAY BE OMITTED. This clinical summary was aggregated from multiple sources. Caution should be exercised in using it in the provision of clinical care. This summary normalizes information from multiple sources, and as a consequence, information in this document may materially change the coding, format and clinical context of patient data. In addition, data may be omitted in some cases. CLINICAL DECISIONS SHOULD BE BASED ON THE PRIMARY CLINICAL RECORDS. [facility] provides no warranty or guarantee of the accuracy or completeness of information in this document.
[2024-08-28 21:47] LABS: Differential Indicated SCAN CRITERIA MET
--- OUTSIDE RECORDS SUMMARY | 2024-08-28 22:18 | XMS RPT_ITS | CCD ---
Author Organization [facility] Care Team Providers Care Installer Name Role Phone Now Nurse Unavailable Unavailable Now Nurse Unavailable Unavailable Now Nurse Unavailable Unavailable Dr. Brandon March Chi Primary Care Provider Joaquim, Dr. Brandon Wilks Referring Provider Friend, Dr. Andino Attending Provider FriendDr. Andino Other Provider Joaquim, Dr. Brandon Wilks Primary Care Provider Joaquim, Dr. Brandon Wilks Referring Provider Friend, Dr. Andino Attending Provider Jhon PETAL SHAPER HAND, PETAL SHAPER HAND-C Crissy Vance Attending Provider Joaquim, Dr. Brandon Wilks Primary Care Provider Lory Sahni Attending Provider Unavailable Joaquim, Dr. Brandon Wilks Referring Provider Friend, Dr. Andino Attending Provider Marissa Howard Attending Provider Unavailable Dr. Bennie Landrum Attending Provider JoaquimDr. Brandon donald Chi Primary Care Provider Joaquim, Dr. Brandon Wilks Referring Provider FriendDr. Andino Attending Provider NAIMA Kemp Attending Provider Dr. Bennie Landrum Attending Provider NAIMA Kemp Referring Provider Dr. Brandon March Chi Primary Care Provider Joaquim, Dr. Brandon Wilks Referring Provider Deborah MCNAMARA, PA Jazmyn Vance Attending Provider Dr. Brandon March Chi Primary Care Provider Dr. Albert Ward Referring Provider Dr. Albert Ward Other Provider Shiva PETAL SHAPER HAND-C Jeannine Renteria Attending Provider Dr. Brandon March MD, Chi Primary Care Provider [facility], Dr. Matias Emergency Provider de Ovidio [...] Provider David CALVILLO, Dr. Gibson Other Provider [facility] PETAL SHAPER HAND-Son Bellamy Other Provider Deborah MCNAMARA, Jazmyn Vance Other Provider Dr. Macario Allen DO Other Provider Awa CALVILLO, Dr. Cal Galeano Attending Provider Caleb CALVILLO, Dr. Saez Attending Provider Megan CALVILLO, Dr. Roland Attending Provider Dr. Macario Allen DO Attending Provider Awa CALVILLO, Dr. Cal Galeano Other Provider Dr. Brandon March MD, Chi Referring Provider Beena CALVILLO, Dr. Baldwin Attending Provider Beena CALVILLO, Dr. Baldwin Referring Provider Joaquim CALVILLO, Dr. Brandon Wilks Attending Provider Awa CALVILLO, Dr. Cal Galeano Referring Provider Kal Wright Admitting Unavailable Cal Billings Attending Unavailable Kal Wright Consulting Unavailable Joaquim, Brandon Chi Primary Care Unavailable Amro, Ahmed Consulting Unavailable Jaime, Bárbara Consulting Unavailable Moisés Bartlett Consulting Unavailable Lucita, Bennie Consulting Unavailable Belal, Farouk Consulting Unavailable Luan Guzman Consulting Unavailable Ronny Wilson Consulting UnavailKevin Villeda Consulting Unavailable Chelsey Hernandezatore Consulting Unavailable [facility] KIT, Son Aguilar Consulting Unavailable Jazmyn Kemp Consulting Unavail able Macario Allen Consulting Unavailable Cal Billings Consulting Unavailable Kal Wright Attending Unavailable Macario Allen Attending Unavailable Joaquim, Brandon Chi Referring Unavailable Joaquim, Brandon Chi Primary Care Unavailable Joaquim, Brandon Chi Attending Unavailable Joaquim, Brandon Chi Referring Unavailable Joaquim, Barndon Chi Primary Care Unavailable Joaquim, Brandon Chi Attending Unavailable Joaquim, Brandon Chi Referring Unavailable Joaquim, Brandon Chi Attending Unavailable Joaquim, Brandon Chi Primary Care Unavailable Denny Hargrove Referring Unavailable Denny Hargrove Attending Unavailable Joaquim, Brandon Chi Primary Care Unavailable Luan Guzman Attending Unavailable Joaquim, Brandon Chi Primary Care Unavailable Lucita, Lemoyne Attending Unavailable Joaquim, Brandon Chi Primary Care [...] Consulting Unavailable Luisa Bartlettndan Consulting Unavailable Lucita, Lemoyne Consulting Unavailable BelSe to Consulting Unavailable Luan Guzman Consulting Unavailable Olivia Wilsonadevignesh Consulting Unavailian e Satti, Kevin Consulting Unavailable [place], Arthur Consulting Unavailable Hema PANTOJA, Son Aguilar [...] Translations: [ADHESIVE BANDAGES] allergy to substance 09-01-2010 [facility] Work Phone: (3 sources) amLODIPine Drug Allergy 11-29-2016 [facility] Work Phone: (6 sources) Enalapril Drug Allergy 09-01-2010 [facility] Work Phone: (17 sources) Minoxidil Drug Allergy 11-29-2016 Other [facility] Work Phone: Comment on above: SWELLING ANKLES, FUNK DS SHAKE (17 sources) valsartan Drug Allergy 11-29-2016 Rash [facility] Work Phone: (15 sources) Adhesive Tape; Translations: [adhesive tape] Allergy to substance 06-07-2018 Other [facility] Comment on above: BLISTERS (14 sources) amLODIPine Drug Allergy 06-07-2018 Other [facility] Comment on above: DIZZY, SHAKES (14 sources) Enalaprilat Drug Allergy 06-07-2018 Other [facility] Comment on above: DRY COUGH (14 sources) Risedronate Drug Allergy 06-07-2018 Other [facility] (1 source) amLODIPine Drug Allergy 06-03-2024 [facility] Repository (1 source) Enalaprilat Drug Allergy 06-03-2024 [facility] Repository (1 source) Minoxidil Drug Allergy 06-03-2024 [facility] Repository (1 source) Risedronate Drug Allergy 06-03-2024 [facility] Repository (1 source) valsartan Drug Allergy 06-03-2024 [facility] Repository Medications Current Medications Medication Drug [...] Cholecalciferol (Vitamin D3) 50,000 unit capsule Discontinued 76056 U PO MONTHLY April 09, 2017 1:00am [...] HCL TABS as directed CLONIDINE HCL TABS [id number] Albert MCNAMARA Dexlansoprazole (Dexilant) 60 mg capsule,biphase delayed releas (20 sources) Start: 12-30-2021 take 1 capsule by mouth twice daily Dexlansoprazole (Dexilant) 60 mg capsule,biphase delayed releas Active 60 mg PO TWICE A DAY 120 December 30, 2021 9:47am Start: 12-30-2021 take 1 capsule by [facility] twice daily Dexlansoprazole (Dexilant) 60 mg capsule,biphase delayed releas Active 60 MG PO TWICE A DAY 120 December 30, 2021 9:47am Start: 12-30-2021 take 1 capsule by [facility] twice daily Dexlansoprazole (Dexilant) 60 mg capsule,biphase [...] {tbl} PO DAILY December 26, 2021 2:34pm [place]-3 Fatty Acids-Vitamin E (Fish Oil) 1,000 mg Capsule (13 sources) Start: 07-25-2021 take 1 capsule by mouth twice daily [place]-3 Fatty Acids-Vitamin E (Fish Oil) 1,000 mg Capsule Active 1 CAP PO TWICE A DAY July 25, 2021 12:05pm Start: 07-25-2021 End: 01-11-2022 [place]-3 Fatty Acids-Vitamin E (Fish Oil) 1,000 mg Capsule Discontinued 1 NMA PO TWICE A DAY July 25, 2021 12:00am January 11, 2022 3:51pm Start: 07-25-2021 End: 01-11-2022 take 1 capsule by mouth twice daily [place]-3 Fatty Acids-Vitamin E (Fish Oil) 1,000 mg Capsule Discontinued 1 CAP PO TWICE A DAY July 25, 2021 12:00am January 11, 2022 3:51pm Start: 07-25-2021 End: 01-11-2022 take 1 capsule by mouth twice daily [place]-3 Fatty Acids-Vitamin E (Fish Oil) 1,000 mg Capsule Discontinued 1 CAP PO TWICE A DAY July 24, 2021 11:00pm January 11, 2022 2:51pm Start: 07-25-2021 take 1 capsule by mo [facility] twice daily [place]-3 Fatty Acids-Vitamin E (Fish Oil) 1,000 mg [...] tablet by mouth twice daily AMLODIPINE BESYLATE [id number] Rayshawn Tejada Tab aspirin 81 mg delayed [...] TABS One tablet by mouth daily ASPIRIN 55511470121 Honey Casanova atenolol 25 mg oral tablet (6 sources) beta-Adrenergic Chris Start: 09-01-2010 End: 11-29-2016 take 1 tablet by mouth once daily ATENOLOL 25 MG TABS One tablet by mouth daily ATENOLOL 29734472828 Albert MCNAMARA atorvastatin 40 mg oral tablet [...] 1 capsule twice a day DOXYCYCLINE MONOHYDRATE 54966170527 Albert MCNAMARA Ergocalciferol (3 sources) Provitamin D2 Compound Start: 11-29-2016 VITAMIN D2 TABS as directed ERGOCALCIFEROL TABS 54488678726 Albert MCNAMARA fexofenadine hydrochloride 180 mg oral tablet (6 sources) Histamine-1 Receptor Antagonist Start: 09-01-2010 End: 11-29-2016 take 1 tablet by mouth once daily FEXOFENADINE HCL 180 MG TABS One tablet by mouth daily FEXOFENADINE HCL 96883620288 Honey Casanova icosapent ethyl 1000 mg oral capsule (10 sources) Start: 01-11-2022 End: 07-05-2023 Icosapent Ethyl (Vascepa) 1 gram capsule Discontinued 1 g PO DAILY January 11, 2022 1:00am July 05, 2023 3:19pm lactobacillus acidophilus [id number] unt oral capsule (10 sources) Start: 01-11-2022 [...] SIUM TABS as directed LOSARTAN POTASSIUM TABS 89851698436 Albert MCNAMARA meclizine hydrochloride 25 mg oral [...] 11-29-2016 MULTIVITAMINS CAPS as directed MULTIPLE VITAMIN 23718330562 Albert MCNAMARA Multivitamin 1 EACH tablet (1 source) Start: 04-24-2017 End: 12-26-2021 Multivitamin 1 EACH tablet Discontinued 1 NMA PO DAILY April 24, 2017 12:00am December 26, 2021 2:37pm [place]-3 FATTY ACIDS CPDR (6 sources) Start: 09-01-2010 take 1 tablet by mouth once daily OMEGA 3 CPDR One tablet by mouth daily [place]-3 FATTY ACIDS CPDR 60084917776 Honey Casanova Start: 09-01-2010 End: 11-29-2016 take 1 tablet by mouth once daily OMEGA 3 CPDR One tablet by mouth daily [place]-3 FATTY ACIDS CPDR 83265044467 Albert MCNAMARA omeprazole 20 mg delayed release oral capsule (6 sources) Proton Pump Inhibitor Start: 09-01-2010 End: 11-29-2016 take 1 tablet by mouth once daily OMEPRAZOLE 20 MG CPDR One tablet by mouth daily OMEPRAZOLE 20118568243 Honey Casanova ondansetron 4 mg disintegrating oral [...] tablet by mouth twice daily.12 PITAVASTATIN CALCIUM 09992144041 Albert MCNAMARA promethazine hydrochloride 25 mg oral [...] MG TABS As n eeded TRAMADOL HCL 38370046890 Honey Casanova valsartan 160 mg oral tablet (6 sources) Angiotensin 2 Receptor Chris Start: 09-01-2010 End: 06-15-2011 take 1 tablet by mouth twice daily DIOVAN 160 MG TABS One tablet by mouth twice daily VALSARTAN 83956040324 Rayshawn Tejada Tab vitamin b 12 1 mg oral tablet (6 sources) Vitamin B12 Start: 09-01-2010 End: 11-29-2016 VITAMIN B-12 1000 MCG TABS IM as ordered CYANOCOBALAMIN 60524139824 Albert MCNAMARA zolpidem tartrate 10 mg oral tablet (6 sources) gamma-Aminobutyric Acid-ergic Agonist Start: 09-01-2010 End: 11-29-2016 take 1 tablet by mouth at bedtime AMBIEN 10 MG TABS One tablet by mouth at bedtime. ZOLPIDEM TARTRATE 86730077710 Honey Pinky Casanova Problems Active Problems Problem [...] Automatedon 05-14 PLT EST ADEQUATE Normal ADEQ [facility] Comment on above: Performed By: #### L 100.0100, L501.5425, L503.6620, L300.4310, L300.3900, L500.2500 #### [facility] [address] [place], [place], [id number] Comprehensive Metabolic Prof [facility] 06-09-2024 Albumin [Mass/Vol] 4.1 g/dL Normal 3.4-4.8 [facility] Comment on above: Performed By: #### L 100.0100, L501.5425, L503.6620, L300.4310, L300.3900, L500.2500 #### [facility] [address] [place], [address] Albumin/Globulin [Mass ratio] 1.7 {ratio} Normal 0.9-2.4 [facility] Comment on above: Performed By: #### L 100.0100, L501.5425, L503.6620, L300.4310, L300.3900, L500.2500 #### [facility] [address] [place], [address] ALK PHOS 79 U/L Normal 35-104 [facility] Comment on above: Performed By: #### L 100.0100, L501.5425, L503.6620, L300.4310, L300.3900, L500.2500 #### [facility] [address] [place], [address] ALT [Catalytic activity/Vol] 20 U/L Normal <=34 [facility] Comment on above: Performed By: #### L 100.0100, L501.5425, L503.6620, L300.4310, L300.3900, L500.2500 #### [facility] [address] [place], [address] AST [Catalytic activity/Vol] 30 U/L Normal <=31 [facility] Comment on above: Performed By: #### L 100.0100, L501.5425, L503.6620, L300.4310, L300.3900, L500.2500 #### [facility] [address] [place], [address] Bilirubin [Mass/Vol] 0.58 mg/dL Normal 0.00-1.30 [facility] Comment on above: Performed By: #### L 100.0100, L501.5425, L503.6620, L300.4310, L300.3900, L500.2500 #### [facility] [address] [place], [address] BUN/CRE 17.1 RATIO Normal 10-20 [facility] Comment on above: Performed By: #### L 100.0100, L501.5425, L503.6620, L300.4310, L300.3900, L500.2500 #### [facility] [address] [place], [address] Calcium [Mass/Vol] 11.4 mg/dL High 7.6-11.0 [facility] Comment on above: Performed By: #### L 100.0100, L501.5425, L503.6620, L300.4310, L300.3900, L500.2500 #### [facility] [address] [place], [address] Chloride [Moles/Vol] 103 mmol/L Normal 98-108 [facility] Comment on above: Performed By: #### L 100.0100, L501.5425, L503.6620, L300.4310, L300.3900, L500.2500 #### [facility] [address] [place], [address] CO2 [Moles/Vol] 26.6 mmol/L Normal 21.0-32.0 [facility] Comment on above: Performed By: #### L 100.0100, L501.5425, L503.6620, L300.4310, L300.3900, L500.2500 #### [facility] [address] [place], [address] Creatinine [Mass/Vol] 1.12 mg/dL Normal 0.70-1.20 [facility] Comment on above: Performed By: #### L 100.0100, L501.5425, L503.6620, L300.4310, L300.3900, L500.2500 #### [facility] [address] [place], [address] GAP 9 Normal 5-15 [facility] Comment on above: Performed By: #### L 100.0100, L501.5425, L503.6620, L300.4310, L300.3900, L500.2500 #### [facility] [address] [place], [address] GFR/1.73 sq M.predicted among non-blacks MDRD (S/P/Bld) [Vol rate/Area] 48 mL/min/{1.73_m2} Low >60 [facility] Comment on above: Result Comment: mL/m in/1.73m2 CKD-EPI Creatinine Equation (2020) Performed By: #### L 100.0100, L501.5425, L503.6620, L300.4310, L300.3900, L500.2500 #### [facility] [address] [place], [address] Globulin (S) [Mass/Vol] 2.4 g/dL Normal 2.2-4.2 [facility] Comment on above: Performed By: #### L 100.0100, L501.5425, L503.6620, L300.4310, L300.3900, L500.2500 #### [facility] [address] [place], [address] Glucose [Mass/Vol] 88 mg/dL Normal 70-99 [facility] Comment on above: Performed By: #### L 100.0100, L501.5425, L503.6620, L300.4310, L300.3900, L500.2500 #### [facility] [address] [place], [address] Potassium [Moles/Vol] 4.3 mmol/L Normal 3.3-5.1 [facility] Comment on above: Performed By: #### L 100.0100, L501.5425, L503.6620, L300.4310, L300.3900, L500.2500 #### [facility] [address] [place], [address] Sodium [Moles/Vol] 138 mmol/L Normal 133-145 [facility] Comment on above: Performed By: #### L 100.0100, L501.5425, L503.6620, L300.4310, L300.3900, L500.2500 #### [facility] [address] [place], [address] T PROT 6.5 g/dL Normal 5.9-8.4 [facility] Comment on above: Performed By: #### L 100.0100, L501.5425, L503.6620, L300.4310, L300.3900, L500.2500 #### [facility] [address] [place], [address] Urea nitrogen [Mass/Vol] 19 mg/dL Normal 4-19 [facility] Comment on above: Performed By: #### L 100.0100, L501.5425, L503.6620, L300.4310, L300.3900, L500.2500 #### [facility] [address] [place], [address] Thyroid Stim Hormone (TSH)on 06-09-2024 TSH 1.440 uIU/mL Normal 0.300-4.200 [facility] Comment on above: Performed By: #### L 100.0100, L501.5425, L503.6620, L300.4310, L300.3900, L500.2500 #### [facility] [address] [place], [address] Vitamin D,25 Hydroxyon 06-09 Vitamin D 25-OH 38.4 ng/mL Normal 30-100 [facility] Comment on above: Result Comment: Cristina min D Status Deficiency: <20 ng/mL (50nmol/L) Insufficiency: 20-30 ng/mL (50-75 nmol/L) Sufficiency: 30-100 ng/mL (75-250 nmol/L) Toxicity: >100 ng/mL (>250 nmol/L) Performed By: #### L 100.0100, L501.5425, L503.6657, L300.4560, L300.6060, L500.2500 #### [facility] [place], [address] Special Stain Group IIon Special Stain Group II ----- ---- Patient Age/Sex Location Account Attending Physician ---- CARLEY SPRAGUE 84/F LABSPEC [id number] Dr. Luan Paul MD ---- Specimen: [id number] Received: 06/03/24 Status: ISMAEL Suersh Num: [id number] Spec Type: Fluid Subm Dr: Dr. Luan [...] cytology and cell block preparation. 06/03/2024 CPT: 38445i1 Signed (signature on file) Dr. Rachel Woody DO 06/03/24 1321 ---- Normal [facility] Comment on above: Performed By: #### L 100.0100, L501.5425, L503.6620, L300.4310, L300.3900, L500.2500 #### [facility] [address] [place], [address] Surgery Visit Reporton 06-03 Surgery Visit Report [facility] [address] [place] [address] OFFICE VISIT Date of Service: 06/03/24 MR#: [id number] Acct: [id number] Name: CARLEY SPRAGUE Rep #: [id number] : 1940 Provider: Dr. Luan goldberg MD Age/Sex: 84/F Location: [facility] Status: Signed Intake Vital Signs 02/25/24 10:57 [...] inclisiran 284 mg/1.5 mL 284 mg subcut [id number] cholesterol 07/05/23 06/03/24 History subcutaneous syringe linaclotide [...] vertigo. Th (more content not included)... Normal [facility] Thyroid Uptake Single or Mul ton 04-23-2024 Thyroid Uptake Single or Mult [facility] Services [address] [place], [place] [address] Thyroid Uptake Single or Mult MR#: [id number] Acct: [id number] Name: CARLEY SPRAGUE Rep #: [id number] : 1940 F 83 From: Mendoza cadet MD PCP: Dr. Brandon March MD Status: REG CLI Study: Thyroid Uptake Single or Mult Date of Exam: 0 04/23/24 Exam# [id number] Ordering Dr: Brandon March MD PROCEDURE: THYROID [...] activity in the left lobe. Reading Location: [id number] CC: Dr. Brandon March MD Data Reporting Analyst: Signed Normal [facility] Thyroidon 03-27-2024 Thyroid [facility] [address] [place] [address] Thyroid MR#: [id number] Acct: [id number] Name: CARLEY SPRAGUE Rep #: [id number] : 1940 F 83 From: Mendoza cadet MD PCP: Dr. Brandon March MD Status: REG CLI Study: Thyroid Date of Exam: 03/27/24 Exam# [id number] Ordering Dr: Brandon March MD PROCEDURE: THYROID [...] uptake recommended prior to biopsy. Reading Location: [id number] CC: Dr. Brandon March MD Data Reporting Analyst: Signed Normal [facility] PT D/C Summary (1)on 025 PT D/C Summary (1) [facility] Physical Therapy [facility] [place] [address] / REHABILITATION SERVICES DISCHARGE SUMMARY MR#: [id number] Acct: [id number] Name: CARLEY SPRAGUE Rep #: [id number] : 1940 83 From: Jared GEIGERT, OCS, [...] please feel free to call me at [phone]. Thank you for the referral of this patient. Sincerely, Jared Arriaga DPT, OCS, CSCS Balance/Gait/Functiona l tests Balance/Special Test Scores Functional Gait Assessment Score: 25 % Disability: 16.6700 Dizziness Score: 10 TUG Test Time Seconds: 13 30 Second Chair Rise Test Seconds: 12 Improvement % Improvement: 70 03/14/24 1057 CC: Dr. Cal Billings MD; Dr. Brandon March MD EBG Signed Normal [facility] CREATININE FINGERSTICKon CREATININE WB < 1.0 Normal 0.55-1.02 [facility] Comment on above: Performed By: #### L 9100.0200 #### [facility] [address] [place], [address] GFR/1.73 sq M.predicted among non-blacks MDRD (S/P/Bld) [Vol rate/Area] 60.0000 mL/min/{1.73_m2} Normal >60 [facility] Comment on above: Performed By: #### L 9100.0200 #### [facility] [address] [place], [address] Chest WITH Contraston 2024 Chest WITH Contrast [facility] Imaging Services [address] [place] [address] Chest WITH Contrast MR#: [id number] Acct: [id number] Name: CARLEY SPRAGUE Rep #: [id number] : 1940 F 83 From: Denny Flores DO PCP: Dr. Brandon March MD Status: REG CLI Study: Chest WITH Contrast Date of Exam: 03/12/24 Exam# [id number] Ordering Dr: Brandon March MD PROCEDURE: CHEST [...] use of iterative reconstruction technique). Reading [facility] CC: Dr. Brandon March MD Data Reporting Analyst: Signed Normal [facility] Creatinine measurement at dsideOrdered By: Brandon March on 03-12-2024 Bedside Creatinine < 1.0 mg/dL 0.55-1.02 [facility] EGFROrdered By: Brandon March on 03-12-2024 GFR/1.73 sq M.predicted among non-blacks MDRD (S/P/Bld) [Vol rate/Area] 60.0000 mL/min/{1.73_m2} >60 [facility] Cardiology Visit Reporton Cardiology Visit Report [facility] [address] [place] [address]. [address] [place], [place] [address] OFFICE VISIT Date of Service: 02/25/24 MR#: [id number] Acct: [id number] Name: CARLEY SPRAGUE Rep #: [id number] : 1940 Provider: Dr. 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 Normal [facility] Inital Evaluation (1) - PTon 02-01-2024 Inital Evaluation (1) - PT [facility] [address] [place] [address] / REHABILITATION SERVICES INITIAL EVALUATION MR#: [id number] Acct: [id number] Name: CARLEY SPRAGUE Rep #: [id number] : 1940 83 From: Jared Arriaga DPT, [...] to be FAXED BACK to us at [phone] for Medicare purposes. For Medicare only, by signing this I certify the plan of care. Please let me know if there are questions or concerns regarding this plan of care. Physician Signature: Date:__ 02/01/24 1032 CC: Dr. Cal Billings MD; Dr. Brandon March MD EBG Signed Normal [facility] Absolute neutrophil countOrd ered By: Cal Billings on 01-23-2024 Neutrophils (Bld) [#/Vol] 5.8 10*3/uL 2.0-7.7 [facility] Basic Metabolic Profile (BMP )on 01-23-2024 BUN/CRE 20.3 RATIO High 12-01 [facility] Comment on above: Performed By: #### L 100.0100, L501.5425, L503.6620, L300.4310, L300.3900, L500.2500 #### [facility] [address] [place], [address] CA,Total 10.5 mg/dL High 8.5-10.1 [facility] Comment on above: Performed By: #### L 100.0100, L501.5425, L503.6620, L300.4310, L300.3900, L500.2500 #### [facility] [address] [place], [address] Chloride [Moles/Vol] 108 mmol/L High 98-107 [facility] Comment on above: Performed By: #### L 100.0100, L501.5425, L503.6620, L300.4310, L300.3900, L500.2500 #### [facility] [address] [place], [address] CO2 [Moles/Vol] 27.0 mmol/L Normal 21.0-32.0 [facility] Comment on above: Performed By: #### L 100.0100, L501.5425, L503.6620, L300.4310, L300.3900, L500.2500 #### [facility] [address] [place], [address] Creatinine [Mass/Vol] 1.48 mg/dL High 0.55-1.02 [facility] Comment on above: Result Comment: The validity of the calculated GFR GFRAA in patients over 70 years has not been determined. Clinical correlation is essential. Performed By: #### L 100.0100, L501.5425, L503.6620, L300.4310, L300.3900, L500.2500 #### [facility] [address] [place], [address] ECRCL 26.27 ml/min Normal [facility] Comment on above: Performed By: #### L 100.0100, L501.5425, L503.6620, L300.4310, L300.3900, L500.2500 #### [facility] [address] [place], [address] EST GFR - AA 43 mL/min Low >60 [facility] Comment on above: Result Comment: Afri can [place] GFR Calc Performed By: #### L 100.0100, L501.5425, L503.6620, L300.4310, L300.3900, L500.2500 #### [facility] [address] [place], [address] GAP 7 Normal 5-15 [facility] Comment on above: Performed By: #### L 100.0100, L501.5425, L503.6620, L300.4310, L300.3900, L500.2500 #### [facility] [address] [place], [address] GFR/1.73 sq M.predicted among non-blacks MDRD (S/P/Bld) [Vol rate/Area] 36 mL/min/{1.73_m2} Low >60 [facility] Comment on above: Result Comment: Non- GFR Calc Performed By: #### L 100.0100, L501.5425, L503.6620, L300.4310, L300.3900, L500.2500 #### [facility] [address] [place], [address] Glucose [Mass/Vol] 115 mg/dL High 74-106 [facility] Comment on above: Result Comment: Fast ing Glucose result from 100 to 125 mg/dL suggests IMPAIRED HOMEOSTASIS per A.D.A. criteria. Performed By: #### L 100.0100, L501.5425, L503.6620, L300.4310, L300.3900, L500.2500 #### [facility] [address] [place], [address] Potassium [Moles/Vol] 3.5 mmol/L Normal 3.5-5.1 [facility] Comment on above: Performed By: #### L 100.0100, L501.5425, L503.6620, L300.4310, L300.3900, L500.2500 #### [facility] [address] [place], [address] Sodium [Moles/Vol] 142 mmol/L Normal 136-145 [facility] Comment on above: Performed By: #### L 100.0100, L501.5425, L503.6620, L300.4310, L300.3900, L500.2500 #### [facility] [address] [place], [address] Urea nitrogen [Mass/Vol] 30 mg/dL High 7-18 [facility] Comment on above: Performed By: #### L 100.0100, L501.5425, L503.6620, L300.4310, L300.3900, L500.2500 #### [facility] [address] [place], [address] Basophil percentageOrdered B y: Cal Knowlessharmaine on 01-23-2024 Basophils/100 WBC (Bld) 0.7 % 0-1 [facility] Blood urea nitrogen (BUN)/cr eatinine ratioOrdered By: Cal Awa on 01-23-2024 Urea nitrogen/Creatinine [Mass ratio] 20.3 mg/mg High - [facility] CBC W/Diff, Automatedon 01-12-2023 Absolute Lymph 3.72 X10 3/uL Normal 0.83-4.51 [facility] Comment on above: Performed By: #### L 100.0100, L501.5425, L503.6620, L300.4310, L300.3900, L500.2500 #### [facility] [address] [place], [address] Absolute Neut 5.8 X10 3/uL Normal 2.0-7.7 [facility] Comment on above: Performed By: #### L 100.0100, L501.5425, L503.6620, L300.4310, L300.3900, L500.2500 #### [facility] [address] [place], [address] Basophils/100 WBC (Bld) 0.7 % Normal 0-1 [facility] Comment on above: Performed By: #### L 100.0100, L501.5425, L503.6620, L300.4310, L300.3900, L500.2500 #### [facility] [address] [place], [address] Eosinophils/100 WBC (Bld) 2.7 % Normal 0-5 [facility] Comment on above: Performed By: #### L 100.0100, L501.5425, L503.6620, L300.4310, L300.3900, L500.2500 #### [facility] [address] [place], [address] Erythrocyte distribution width (RBC) [Ratio] 12.3 % Normal 11.6-14.6 [facility] Comment on above: Performed By: #### L 100.0100, L501.5425, L503.6620, L300.4310, L300.3900, L500.2500 #### [facility] [address] [place], [address] Hematocrit (Bld) [Volume fraction] 42.3 % Normal 37-47 [facility] Comment on above: Performed By: #### L 100.0100, L501.5425, L503.6620, L300.4310, L300.3900, L500.2500 #### [facility] [address] [place], [address] Hemoglobin (Bld) [Mass/Vol] 14.0 g/dL Normal 12.0-15.0 [facility] Comment on above: Performed By: #### L 100.0100, L501.5425, L503.6620, L300.4310, L300.3900, L500.2500 #### [facility] [address] [place], [address] IG% 0.400 Normal 0.0-0.9 [facility] Comment on above: Result Comment: IG% - Immature Granulocytes (promyelocytes, myelocytes and metamyelocytes) > 1% indicates that a LEFT SHIFT is Present. Performed By: #### L 100.0100, L501.5425, L503.6620, L300.4310, L300.3900, L500.2500 #### [facility] [address] [place], [address] Lymphocytes/100 WBC (Bld) 34.1 % Normal 19-41 [facility] Comment on above: Performed By: #### L 100.0100, L501.5425, L503.6620, L300.4310, L300.3900, L500.2500 #### [facility] [address] [place], [address] MCH (RBC) [Entitic mass] 30.6 pg Normal 27.0-32.0 [facility] Comment on above: Performed By: #### L 100.0100, L501.5425, L503.6620, L300.4310, L300.3900, L500.2500 #### [facility] [address] [place], [address] MCHC (RBC) [Mass/Vol] 33.1 g/dL Normal 32-36 [facility] Comment on above: Performed By: #### L 100.0100, L501.5425, L503.6620, L300.4310, L300.3900, L500.2500 #### [facility] [address] [place], [address] MCV (RBC) [Entitic vol] 92.4 fL Normal 81-99 [facility] Comment on above: Performed By: #### L 100.0100, L501.5425, L503.6620, L300.4310, L300.3900, L500.2500 #### [facility] [address] [place], [address] Monocytes/100 WBC (Bld) 9.0 % Normal 0-10 [facility] Comment on above: Performed By: #### L 100.0100, L501.5425, L503.6620, L300.4310, L300.3900, L500.2500 #### [facility] [address] [place], [address] Neutrophils/100 WBC (Bld) 53.1 % Normal 47-70 [facility] Comment on above: Performed By: #### L 100.0100, L501.5425, L503.6620, L300.4310, L300.3900, L500.2500 #### [facility] [address] [place], [address] Nucleated RBC (Bld) [#/Vol] 0 10*3/uL Normal 0-5 [facility] Comment on above: Performed By: #### L 100.0100, L501.5425, L503.6620, L300.4310, L300.3900, L500.2500 #### [facility] [address] [place], [address] Platelet mean volume (Bld) [Entitic vol] 9.8 fL Normal 6.2-12.0 [facility] Comment on above: Performed By: #### L 100.0100, L501.5425, L503.6620, L300.4310, L300.3900, L500.2500 #### [facility] [address] [place], [address] Platelets (Bld) [#/Vol] 288 10*3/uL Normal 150-450 [facility] Comment on above: Performed By: #### L 100.0100, L501.5425, L503.6620, L300.4310, L300.3900, L500.2500 #### [facility] [address] [place], [address] RBC (Bld) [#/Vol] 4.58 10*6/uL Normal 4.2-5.4 [facility] Comment on above: Performed By: #### L 100.0100, L501.5425, L503.6620, L300.4310, L300.3900, L500.2500 #### [facility] [address] [place], [address] RDW SD 41.7 fl Normal 35.1-43.9 [facility] Comment on above: Performed By: #### L 100.0100, L501.5425, L503.6620, L300.4310, L300.3900, L500.2500 #### [facility] [address] [place], [address] WBC (Bld) [#/Vol] 10.9 10*3/uL Normal 4.4-11.0 [facility] Comment on above: Performed By: #### L 100.0100, L501.5425, L503.6620, L300.4310, L300.3900, L500.2500 #### [facility] [address] [facility] [place], [place], [id number] Carbon dioxide measurementOr dered By: Cal Billings on 01-23-2024 CO2 [Moles/Vol] 27.0 mmol/L 21.0-32.0 [facility] Chloride measurementOrdered By: Cal Billings on 01-23-2024 Chloride [Moles/Vol] 108 mmol/L High 98-107 [facility] Discharge Instructionon 01-12 Discharge Instruction [facility] Records Department [address] [place] [address] Instructions for Home/Discharge Instructions 01/23/24 1027 MR#: [id number] Acct: [id number] Name: CARLEY SPRAGEU Rep #: [id number] : 1940 83 From: Cal Billings MD [...] 284 mg/1.5 mL syringe 284 mg subcut [id number] multivitamin Tablet 1 tab PO DAILY acetaminophen [...] Brandon March MD; NAIMA Akers Signed Normal [facility] Eosinophil percentageOrdered By: Cal Billings on 01-23-2024 Eosinophils/100 WBC (Bld) 2.7 % 0-5 [facility] Erythrocyte distribution wid th ratioOrdered By: Cal Billings on 01-23-2024 Erythrocyte distribution width (RBC) [Ratio] 12.3 % 11.6-14.6 [facility] Erythrocyte distribution wid th standard deviationOrdered By: Cal Billings on 01-23-2024 Erythrocyte distribution width (RBC) [Entitic vol] 41.7 fL 35.1-43.9 [facility] Estimated glomerular filtrat ion rate (GFR) AmericanOrdered By: Cal Billings on 01-23-2024 Estimated GFR (MDRD) Amer 43 mL/min Low >60 [facility] Comment on above: GFR Calc Estimation of creatinine felix aranceOrdered By: Cal Billings on 01-23-2024 Estimated Creatinine Clearance Calc 26.27 ml/min [facility] Glomerular filtration rate ( GFR) estimationOrdered By: Cal Billings on 01-23-2024 Estimated GFR (MDRD) Non-Af Amer 36 mL/min Low >60 [facility] Comment on above: Non- GFR Calc Glucose measurementOrdered B y: Cal Billings on 01-23-2024 Glucose [Mass/Vol] 115 mg/dL High 74-106 [facility] Comment on above: Fasting Glucose resu lt from 100 to 125 mg/dL suggests IMPAIRED HOMEOSTASIS per A.D.A. criteria. Hematocrit Auto (Bld) [Volum e fraction]Ordered By: Cal Billings on 01-23-2024 Hematocrit (Bld) [Volume fraction] 42.3 % 37-47 [facility] Hemoglobin measurementOrdere d By: Cal Billings on 01-23-2024 Hemoglobin (Bld) [Mass/Vol] 14.0 g/dL 12.0-15.0 [facility] Immature granulocytes/100 WB C Auto (Bld)Ordered By: Cal Billings on 01-23-2024 Immature granulocytes/100 WBC (Bld) 0.400 % 0.0-0.9 [facility] Comment on above: IG% - Immature Granu locytes (promyelocytes, myelocytes and metamyelocytes) > 1% indicates that a LEFT SHIFT is Present. Lymphocytes Auto (Unsp spec) [#/Vol]Ordered By: Cal Billings on 01-23-2024 Lymphocytes (Bld) [#/Vol] 3.72 10*3/uL 0.83-4.51 [facility] Lymphocytes/100 WBC Auto (Un sp spec)Ordered By: Cal Billings on 01-23-2024 Lymphocytes/100 WBC (Bld) 34.1 % 19-41 [facility] MCV (mean corpuscular volume ) determinationOrdered By: Cal Billings on 01-23-2024 MCV (RBC) [Entitic vol] 92.4 fL 81-99 [facility] Mean corpuscular hemoglobin (MCH) determinationOrdered By: Cal Billings on 01-23-2024 MCH (RBC) [Entitic mass] 30.6 pg 27.0-32.0 [facility] Mean corpuscular hemoglobin concentration (MCHC) determinationOrdered By: Cal Billings on 01-23-2024 MCHC (RBC) [Mass/Vol] 33.1 g/dL 32-36 [facility] Mean platelet volume determi nationOrdered By: Cal Billings on 01-23-2024 Platelet mean volume (Bld) [Entitic vol] 9.8 fL 6.2-12.0 [facility] Monocyte percentageOrdered B y: Cal Billings on 01-23-2024 Monocytes/100 WBC (Bld) 9.0 % 0-10 [facility] Neutrophil percentageOrdered By: Cal Billings on 01-23-2024 Neutrophils/100 WBC (Bld) 53.1 % 47-70 [facility] Nucleated red blood cell per centageOrdered By: Cal Billings on 01-23-2024 Nucleated RBC/100 WBC (Bld) [Ratio] 0 % 0-5 [facility] Platelet countOrdered By: Imelda Billings on 01-23-2024 Platelets (Bld) [#/Vol] 288 10*3/uL 150-450 [facility] Potassium measurementOrdered By: Cal Billings on 01-23-2024 Potassium [Moles/Vol] 3.5 mmol/L 3.5-5.1 [facility] RBC Auto (Bld) [#/Vol]Ordere d By: Cal Billings on 01-23-2024 RBC (Bld) [#/Vol] 4.58 10*6/uL 4.2-5.4 [facility] Serum anion gap measurementO rdered By: Cal Billings on 01-23-2024 Anion gap [Moles/Vol] 7 mmol/L 5-15 [facility] Serum or plasma calcium bacilio urement (mass/volume)Ordered By: Cal Billings on 01-23-2024 Calcium [Mass/Vol] 10.5 mg/dL High 8.5-10.1 [facility] Serum or plasma creatinine m easurement (mass/volume)Ordered By: Cal Billings on 01-23-2024 Creatinine [Mass/Vol] 1.48 mg/dL High 0.55-1.02 [facility] Comment on above: The validity of the calculated GFR & GFRAA in patients over 70 years has not been determined. Clinical correlation is essential. Serum or plasma urea nitroge n measurement (mass/volume)Ordered By: Cal Billings on 01-23-2024 Urea nitrogen [Mass/Vol] 30 mg/dL High 7-18 [facility] Sodium levelOrdered By: Julito Billings on 01-23-2024 Sodium [Moles/Vol] 142 mmol/L 136-145 [facility] White blood cell (WBC) count Ordered By: Cal Billings on 01-23-2024 WBC (Bld) [#/Vol] 10.9 10*3/uL 4.4-11.0 [facility] Basic Metabolic Profile (BMP )on 01-22-2024 BUN/CRE 19.8 RATIO Normal 10-20 [facility] Comment on above: Performed By: #### L 100.0100, L501.5425, L503.6620, L300.4310, L300.3900, L500.2500 #### [facility] [address] [facility] [address] [place],Total 10.3 mg/dL High 8.5-10.1 [facility] Comment on above: Performed By: #### L 100.0100, L501.5425, L503.6620, L300.4310, L300.3900, L500.2500 #### [facility] [address] [place], [address] Chloride [Moles/Vol] 109 mmol/L High 98-107 [facility] Comment on above: Performed By: #### L 100.0100, L501.5425, L503.6620, L300.4310, L300.3900, L500.2500 #### [facility] [address] [place], [address] CO2 [Moles/Vol] 28.0 mmol/L Normal 21.0-32.0 [facility] Comment on above: Performed By: #### L 100.0100, L501.5425, L503.6620, L300.4310, L300.3900, L500.2500 #### [facility] [address] [place], [address] Creatinine [Mass/Vol] 1.26 mg/dL High 0.55-1.02 [facility] Comment on above: Result Comment: The validity of the calculated GFR GFRAA in patients over 70 years has not been determined. Clinical correlation is essential. Performed By: #### L 100.0100, L501.5425, L503.6620, L300.4310, L300.3900, L500.2500 #### [facility] [address] [place], [address] ECRCL 30.29 ml/min Normal [facility] Comment on above: Performed By: #### L 100.0100, L501.5425, L503.6620, L300.4310, L300.3900, L500.2500 #### [facility] [address] [facility] [id number] (225 EST GFR - AA 52 mL/min Low >60 [facility] Comment on above: Result Comment: Afri can [place] GFR Calc Performed By: #### L 100.0100, L501.5425, L503.6620, L300.4310, L300.3900, L500.2500 #### [facility] [address] [place], [address] GAP 5 Normal 5-15 [facility] Comment on above: Performed By: #### L 100.0100, L501.5425, L503.6620, L300.4310, L300.3900, L500.2500 #### [facility] [address] [place], [address] GFR/1.73 sq M.predicted among non-blacks MDRD (S/P/Bld) [Vol rate/Area] 43 mL/min/{1.73_m2} Low >60 [facility] Comment on above: Result Comment: Non- GFR Calc Performed By: #### L 100.0100, L501.5425, L503.6620, L300.4310, L300.3900, L500.2500 #### [facility] [address] [place], [address] Glucose [Mass/Vol] 108 mg/dL High 74-106 [facility] Comment on above: Result Comment: Fast ing Glucose result from 100 to 125 mg/dL suggests IMPAIRED HOMEOSTASIS per A.D.A. criteria. Performed By: #### L 100.0100, L501.5425, L503.6620, L300.4310, L300.3900, L500.2500 #### [facility] [address] [place], [address] Potassium [Moles/Vol] 3.4 mmol/L Low 3.5-5.1 [facility] Comment on above: Performed By: #### L 100.0100, L501.5425, L503.6620, L300.4310, L300.3900, L500.2500 #### [facility] [address] [place], [address] Sodium [Moles/Vol] 142 mmol/L Normal 136-145 [facility] Comment on above: Performed By: #### L 100.0100, L501.5425, L503.6620, L300.4310, L300.3900, L500.2500 #### [facility] [address] [place], [address] Urea nitrogen [Mass/Vol] 25 mg/dL High 7-18 [facility] Comment on above: Performed By: #### L 100.0100, L501.5425, L503.6620, L300.4310, L300.3900, L500.2500 #### [facility] [address] [place], [address] CBC W/Diff, Automatedon 12-1 0 Absolute Lymph 4.30 X10 3/uL Normal 0.83-4.51 [facility] Comment on above: Performed By: #### L 100.0100, L501.5425, L503.6620, L300.4310, L300.3900, L500.2500 #### [facility] [address] [place], [address] Absolute Neut 4.8 X10 3/uL Normal 2.0-7.7 [facility] Comment on above: Performed By: #### L 100.0100, L501.5425, L503.6620, L300.4310, L300.3900, L500.2500 #### [facility] [address] [place], [address] Basophils/100 WBC (Bld) 0.9 % Normal 0-1 [facility] Comment on above: Performed By: #### L 100.0100, L501.5425, L503.6620, L300.4310, L300.3900, L500.2500 #### [facility] [address] [place], [address] Eosinophils/100 WBC (Bld) 3.7 % Normal 0-5 [facility] Comment on above: Performed By: #### L 100.0100, L501.5425, L503.6620, L300.4310, L300.3900, L500.2500 #### [facility] [address] [place], [address] Erythrocyte distribution width (RBC) [Ratio] 12.3 % Normal 11.6-14.6 [facility] Comment on above: Performed By: #### L 100.0100, L501.5425, L503.6620, L300.4310, L300.3900, L500.2500 #### [facility] [address] [place], [address] Hematocrit (Bld) [Volume fraction] 43.0 % Normal 37-47 [facility] Comment on above: Performed By: #### L 100.0100, L501.5425, L503.6620, L300.4310, L300.3900, L500.2500 #### [facility] [address] [place], [address] Hemoglobin (Bld) [Mass/Vol] 13.8 g/dL Normal 12.0-15.0 [facility] Comment on above: Performed By: #### L 100.0100, L501.5425, L503.6620, L300.4310, L300.3900, L500.2500 #### [facility] [address] [place], [address] IG% 0.300 Normal 0.0-0.9 [facility] Comment on above: Result Comment: IG% - Immature Granulocytes (promyelocytes, myelocytes and metamyelocytes) > 1% indicates that a LEFT SHIFT is Present. Performed By: #### L 100.0100, L501.5425, L503.6620, L300.4310, L300.3900, L500.2500 #### [facility] [address] [place], [address] Lymphocytes/100 WBC (Bld) 40.3 % Normal 19-41 [facility] Comment on above: Performed By: #### L 100.0100, L501.5425, L503.6620, L300.4310, L300.3900, L500.2500 #### [facility] [address] [place], [address] MCH (RBC) [Entitic mass] 29.9 pg Normal 27.0-32.0 [facility] Comment on above: Performed By: #### L 100.0100, L501.5425, L503.6620, L300.4310, L300.3900, L500.2500 #### [facility] [address] [place], [address] MCHC (RBC) [Mass/Vol] 32.1 g/dL Normal 32-36 [facility] Comment on above: Performed By: #### L 100.0100, L501.5425, L503.6620, L300.4310, L300.3900, L500.2500 #### [facility] [address] [place], [address] MCV (RBC) [Entitic vol] 93.3 fL Normal 81-99 [facility] Comment on above: Performed By: #### L 100.0100, L501.5425, L503.6620, L300.4310, L300.3900, L500.2500 #### [facility] [address] [place], [address] Monocytes/100 WBC (Bld) 9.6 % Normal 0-10 [facility] Comment on above: Performed By: #### L 100.0100, L501.5425, L503.6620, L300.4310, L300.3900, L500.2500 #### [facility] [address] [place], [address] Neutrophils/100 WBC (Bld) 45.2 % Low 47-70 [facility] Comment on above: Performed By: #### L 100.0100, L501.5425, L503.6620, L300.4310, L300.3900, L500.2500 #### [facility] [address] [place], [address] Nucleated RBC (Bld) [#/Vol] 0 10*3/uL Normal 0-5 [facility] Comment on above: Performed By: #### L 100.0100, L501.5425, L503.6620, L300.4310, L300.3900, L500.2500 #### [facility] [address] [place], [address] Platelet mean volume (Bld) [Entitic vol] 10.1 fL Normal 6.2-12.0 [facility] Comment on above: Performed By: #### L 100.0100, L501.5425, L503.6620, L300.4310, L300.3900, L500.2500 #### [facility] [address] [place], [address] Platelets (Bld) [#/Vol] 292 10*3/uL Normal 150-450 [facility] Comment on above: Performed By: #### L 100.0100, L501.5425, L503.6620, L300.4310, L300.3900, L500.2500 #### [facility] [address] [place], [address] RBC (Bld) [#/Vol] 4.61 10*6/uL Normal 4.2-5.4 [facility] Comment on above: Performed By: #### L 100.0100, L501.5425, L503.6620, L300.4310, L300.3900, L500.2500 #### [facility] [address] [place], [address] RDW SD 42.1 fl Normal 35.1-43.9 [facility] Comment on above: Performed By: #### L 100.0100, L501.5425, L503.6620, L300.4310, L300.3900, L500.2500 #### [facility] [address] [place], [address] WBC (Bld) [#/Vol] 10.7 10*3/uL Normal 4.4-11.0 [facility] Comment on above: Performed By: #### L 100.0100, L501.5425, L503.6620, L300.4310, L300.3900, L500.2500 #### [facility] [address] [place], [address] Basic Metabolic Profile (BMP )on 01-21-2024 BUN/CRE 16.8 RATIO Normal 10-20 [facility] Comment on above: Performed By: #### L 500.2500 #### [facility] [address] [place], [address] CA,Total 10.2 mg/dL High 8.5-10.1 [facility] Comment on above: Performed By: #### L 500.2500 #### [facility] [address] [place], [address] Chloride [Moles/Vol] 106 mmol/L Normal 98-107 [facility] Comment on above: Performed By: #### L 500.2500 #### [facility] [address] [place], [address] CO2 [Moles/Vol] 29.0 mmol/L Normal 21.0-32.0 [facility] Comment on above: Performed By: #### L 500.2500 #### [facility] [address] [place], [address] Creatinine [Mass/Vol] 1.37 mg/dL High 0.55-1.02 [facility] Comment on above: Result Comment: The validity of the calculated GFR GFRAA in patients over 70 years has not been determined. Clinical correlation is essential. Performed By: #### L 500.2500 #### [facility] [address] [place], [address] ECRCL 27.88 ml/min Normal [facility] Comment on above: Performed By: #### L 500.2500 #### [facility] [address] [place], [address] EST GFR - AA 47 mL/min Low >60 [facility] Comment on above: Result Comment: Afri can [place] GFR Calc Performed By: #### L 500.2500 #### [facility] [address] [place], [address] GAP 5 Normal 5-15 [facility] Comment on above: Performed By: #### L 500.2500 #### [facility] [address] [place], [address] GFR/1.73 sq M.predicted among non-blacks MDRD (S/P/Bld) [Vol rate/Area] 39 mL/min/{1.73_m2} Low >60 [facility] Comment on above: Result Comment: Non- GFR Calc Performed By: #### L 500.2500 #### [facility] [address] [place], [address] Glucose [Mass/Vol] 111 mg/dL High 74-106 [facility] Comment on above: Result Comment: Fast ing Glucose result from 100 to 125 mg/dL suggests IMPAIRED HOMEOSTASIS per A.D.A. criteria. Performed By: #### L 500.2500 #### [facility] [address] [place], [address] Potassium [Moles/Vol] 3.5 mmol/L Normal 3.5-5.1 [facility] Comment on above: Performed By: #### L 500.2500 #### [facility] [address] [place], [address] Sodium [Moles/Vol] 140 mmol/L Normal 136-145 [facility] Comment on above: Performed By: #### L 500.2500 #### [facility] [address] [place], [address] Urea nitrogen [Mass/Vol] 23 mg/dL High 7-18 [facility] Comment on above: Performed By: #### L 500.2500 #### [facility] [address] [place], [address] CBC W/Diff, Automatedon 12-0 Absolute Lymph 4.95 X10 3/uL High 0.83-4.51 [facility] Comment on above: Performed By: #### L 100.0100, L501.5425, L503.6620, L300.4310, L300.3900, L500.2500 #### [facility] [address] [place], [address] Absolute Neut 5.6 X10 3/uL Normal 2.0-7.7 [facility] Comment on above: Performed By: #### L 100.0100, L501.5425, L503.6620, L300.4310, L300.3900, L500.2500 #### [facility] [address] [place], [address] Basophils/100 WBC (Bld) 1.0 % Normal 0-1 [facility] Comment on above: Performed By: #### L 100.0100, L501.5425, L503.6620, L300.4310, L300.3900, L500.2500 #### [facility] [address] [place], [address] Eosinophils/100 WBC (Bld) 2.6 % Normal 0-5 [facility] Comment on above: Performed By: #### L 100.0100, L501.5425, L503.6620, L300.4310, L300.3900, L500.2500 #### [facility] [address] [place], [address] Erythrocyte distribution width (RBC) [Ratio] 12.3 % Normal 11.6-14.6 [facility] Comment on above: Performed By: #### L 100.0100, L501.5425, L503.6620, L300.4310, L300.3900, L500.2500 #### [facility] [address] [place], [address] Hematocrit (Bld) [Volume fraction] 41.3 % Normal 37-47 [facility] Comment on above: Performed By: #### L 100.0100, L501.5425, L503.6620, L300.4310, L300.3900, L500.2500 #### [facility] [address] [place], [address] Hemoglobin (Bld) [Mass/Vol] 13.6 g/dL Normal 12.0-15.0 [facility] Comment on above: Performed By: #### L 100.0100, L501.5425, L503.6620, L300.4310, L300.3900, L500.2500 #### [facility] [address] [place], [address] IG% 0.500 Normal 0.0-0.9 [facility] Comment on above: Result Comment: IG% - Immature Granulocytes (promyelocytes, myelocytes and metamyelocytes) > 1% indicates that a LEFT SHIFT is Present. Performed By: #### L 100.0100, L501.5425, L503.6620, L300.4310, L300.3900, L500.2500 #### [facility] [address] [place], [address] Lymphocytes/100 WBC (Bld) 39.8 % Normal 19-41 [facility] Comment on above: Performed By: #### L 100.0100, L501.5425, L503.6620, L300.4310, L300.3900, L500.2500 #### [facility] [address] [place], [address] MCH (RBC) [Entitic mass] 30.6 pg Normal 27.0-32.0 [facility] Comment on above: Performed By: #### L 100.0100, L501.5425, L503.6620, L300.4310, L300.3900, L500.2500 #### [facility] [address] [place], [address] MCHC (RBC) [Mass/Vol] 32.9 g/dL Normal 32-36 [facility] Comment on above: Performed By: #### L 100.0100, L501.5425, L503.6620, L300.4310, L300.3900, L500.2500 #### [facility] [address] [place], [address] MCV (RBC) [Entitic vol] 93.0 fL Normal 81-99 [facility] Comment on above: Performed By: #### L 100.0100, L501.5425, L503.6620, L300.4310, L300.3900, L500.2500 #### [facility] [address] [place], [address] Monocytes/100 WBC (Bld) 11.0 % High 0-10 [facility] Comment on above: Performed By: #### L 100.0100, L501.5425, L503.6620, L300.4310, L300.3900, L500.2500 #### [facility] [address] [place], [address] Neutrophils/100 WBC (Bld) 45.1 % Low 47-70 [facility] Comment on above: Performed By: #### L 100.0100, L501.5425, L503.6620, L300.4310, L300.3900, L500.2500 #### [facility] [address] [place], [address] Nucleated RBC (Bld) [#/Vol] 0 10*3/uL Normal 0-5 [facility] Comment on above: Performed By: #### L 100.0100, L501.5425, L503.6620, L300.4310, L300.3900, L500.2500 #### [facility] [address] [place], [address] Platelet mean volume (Bld) [Entitic vol] 9.9 fL Normal 6.2-12.0 [facility] Comment on above: Performed By: #### L 100.0100, L501.5425, L503.6620, L300.4310, L300.3900, L500.2500 #### [facility] [address] [place], [address] Platelets (Bld) [#/Vol] 292 10*3/uL Normal 150-450 [facility] Comment on above: Performed By: #### L 100.0100, L501.5425, L503.6620, L300.4310, L300.3900, L500.2500 #### [facility] [address] [place], [address] RBC (Bld) [#/Vol] 4.44 10*6/uL Normal 4.2-5.4 [facility] Comment on above: Performed By: #### L 100.0100, L501.5425, L503.6620, L300.4310, L300.3900, L500.2500 #### [facility] [address] [place], [address] RDW SD 42.2 fl Normal 35.1-43.9 [facility] Comment on above: Performed By: #### L 100.0100, L501.5425, L503.6620, L300.4310, L300.3900, L500.2500 #### [facility] [address] [place], [address] WBC (Bld) [#/Vol] 12.4 10*3/uL High 4.4-11.0 [facility] Comment on above: Performed By: #### L 100.0100, L501.5425, L503.6620, L300.4310, L300.3900, L500.2500 #### [facility] [address] [place], [address] Brain without Contraston Brain without Contrast [facility] Imaging Services [address] [place] [address] Brain without Contrast MR#: [id number] Acct: [id number] Name: CARLEY SPRAGUE Rep #: [id number] : 1940 F 83 From: Benja Ford PCP: Dr. Brandon March MD Status: ADM IN Study: Brain without Contrast Date of Exam: 01/20/24 Exam# [id number] Ordering Dr: Macario Allen DO [id number] STUDY: MR Brain W/O Contrast 01/20/2024 3:51 [...] Macario Allen DO; Dr. Brandon March MD Data Reporting Analyst: Signed Normal [facility] Consultation - Cardiologyon 01-19-2024 Consultation - Cardiology [facility] Medical Records Department [address] [place] [address] Consultation - Cardiology 01/19/24 0906 MR#: [id number] Acct: [id number] Name: CARLEY SPRAGUE Rep #: [id number] : 1940 83 From: Luan Guzman MD [...] last monique (more content not included)... Normal [facility] Folates, (Folic Acid)on FOLATES 22.40 ng/mL Normal 3.1-55.4 [facility] Comment on above: Order Comment: Has Dulce Maria guerrero had X-rays with Contrast this admission? NN Performed By: #### L 100.0100, L501.5425, L503.6620, L300.4310, L300.3900, L500.2500 #### [facility] [address] [place], [place], [address] Hemoglobin A1con 01-19-2024 HbA1c (Bld) [Mass fraction] 5.3 % Normal 3.8-5.6 [facility] Comment on above: Result Comment: Norm al < 5.7 % Prediabetic 5.7 - 6.4 % Diabetic >or= 6.5 % Please note range changes. Performed By: #### L 100.0100, L501.5425, L503.6620, L300.4310, L300.3900, L500.2500 #### [facility] [address] [place], [place], [address] Hemoglobin A1c percentageOrd ered By: Kal Nolan on 01-19-2024 HbA1c (Bld) [Mass fraction] 5.3 % 3.8-5.6 [facility] Comment on above: Normal < 5.7 % Predi abetic 5.7 - 6.4 % Diabetic >or= 6.5 % Please note range changes. Lipid Profileon 01-19-2024 Cholesterol [Mass/Vol] 184 mg/dL Normal 200 [facility] Comment on above: Order Comment: Has Dulce Maria guerrero had X-rays with Contrast this admission? NN Result Comment: <200 mg/dL Desirable 200-240 mg/dL Borderline >240 mg/dL High Risk Performed By: #### L 100.0100, L501.5425, L503.6620, L300.4310, L300.3900, L500.2500 #### [facility] [address] [place], [address] Cholesterol in HDL [Mass/Vol] 53 mg/dL Normal [facility] Comment on above: Order Comment: Has Dulce Maria guerrero had X-rays with Contrast this admission? NN Result Comment: The drugs N-Acetylcysteine and Metamizole may falsely depress this assay. Reference Range HDL <40 mg/dL Low HDL Cholesterol HDL >or= 60 mg/dL High HDL Cholesterol Performed By: #### L 100.0100, L501.5425, L503.6620, L300.4310, L300.3900, L500.2500 #### [facility] [address] [place], [address] Cholesterol in LDL [Mass/Vol] 103 mg/dL Normal 0-130 [facility] Comment on above: Order Comment: Has Dulce Maria guerrero had X-rays with Contrast this admission? NN Performed By: #### L 100.0100, L501.5425, L503.6620, L300.4310, L300.3900, L500.2500 #### [facility] [address] [place], [address] Cholesterol in VLDL [Mass/Vol] 28 mg/dL Normal 5-40 [facility] Comment on above: Order Comment: Has Dulce Maria guerrero had X-rays with Contrast this admission? NN Performed By: #### L 100.0100, L501.5425, L503.6620, L300.4310, L300.3900, L500.2500 #### [facility] [address] [place], [address] Triglyceride [Mass/Vol] 140 mg/dL Normal [facility] Comment on above: Order Comment: Has [...] 100.0100, L501.5425, L503.6620, L300.4310, L300.3900, L500.2500 #### [facility] [address] [place], [address] Thyroid Stim Hormone (TSH)on 01-19-2024 TSH 0.827 uIU/mL Normal 0.358-3.740 [facility] Comment on above: Order Comment: Has Dulce Maria guerrero had X-rays with Contrast this admission? NN Performed By: #### L 100.0100, L501.5425, L503.6620, L300.4310, L300.3900, L500.2500 #### [facility] [address] [place], [address] Vitamin B12on 01-19-2024 Cobalamin (Vitamin B12) [Mass/Vol] 666 pg/mL Normal -911 [facility] Comment on above: Performed By: #### L 100.0100, L501.5425, L503.6620, L300.4310, L300.3900, L500.2500 #### [facility] [address] [place], [address] Vitamin B12 measurementOrder ed By: Kal Nolan on 01-19-2024 Cobalamin (Vitamin B12) [Mass/Vol] 666 pg/mL 211-911 [facility] 12 Lead EKGon 01-18-2024 12 Lead EKG [facility] Cardiovascular Services [address] [place] [address] 12 Lead EKG 01/18/24 1917 MR#: [id number] Acct: [id number] Name: SPRAGUECARLEY TOMMIE Rep #: [id number] : 1940 83 From: Luan Guzman MD Attending Dr: Dr. Macario Allen DO Status: A DM IN Ordering Dr: Florencio Camargo DO Date: 4 Location: [facility] Sex: F C Admitted: 01/18/24 Test Reason [...] hypertrophy abnormal Reconfirmed by Luan Guzman ([id number]), newspaper photo editor NABOR BENNETT ([id number]) on 01/21/2024 6:46:49 AM Referred By: TL Confirmed By: Luan Guzman 01/21/24 0646 Date Luan Guzman MD CC: Dr. Florencio Camargo DO; Dr. Macario Allen DO; Dr. Brandon March MD Signed Normal [facility] Abdomen/Pelvis W IV Cont ONL [facility] 01-18-2024 Abdomen/Pelvis W IV Cont ONLY [facility] Imaging Services [address] [place] [id number] Abdomen/Pelvis W IV Cont ONLY MR#: [id number] Acct: [id number] Name: CARLEY SPRAGUE Rep #: [id number] : 1940 F 83 From: Denny Jarvis MD PCP: Dr. Brandon March MD Status: ADM IN Study: Abdomen/Pelvis W IV Cont ONLY Date of Exam: Exam# [id number] Ordering Dr: Florencio Camargo DO [id number] STUDY: CT ABDOMEN AND PELVIS WITH CONTRAST [...] 23:03 EST Reading Location ID and State: [facility] / [place] Tel , Service support , CC: Dr. Florencio Camargo, DO; Dr. Brandon March MD Data Reporting Analyst: Signed Normal [facility] Amorphous sediment detection in urine sediment by light microscopyOrdered By: Florencio Camargo on 01-18-2024 Amorphous sediment LM Ql (Urine sed) 1+ [facility] Atypical lymphocyte percenta geOrdered By: Florencio Camargo on 01-18-2024 Atypical Lymphocytes 2+ % [facility] BNP (brain natriuretic pepti de measurement)Ordered By: Florencio Camargo on 01-18-2024 Natriuretic peptide B (Bld) [Mass/Vol] 271.6 pg/mL High 0-100 [facility] BNP,B-Type NATRIURETIC PEPTI Fartun 01-18-2024 Natriuretic peptide B (Bld) [Mass/Vol] 271.6 pg/mL High 0-100 [facility] Comment on above: Performed By: #### L 100.0100, L501.5425, L503.6620, L300.4310, L300.3900, L500.2500 #### [facility] [address] [place], [address] Bacteria LM.HPF (Urine sed) [#/Area]Ordered By: Florencio Camargo on 01-18-2024 Urine Bacteria RARE /hpf None Seen [facility] Basic Metabolic Profile (BMP )on 01-18-2024 BUN/CRE 17.0 RATIO Normal 10-20 [facility] Comment on above: Order Comment: 1 Y Performed By: #### L 100.0100, L501.5425, L503.6620, L300.4310, L300.3900, L500.2500 #### [facility] [address] [place], [address] CA,Total 10.3 mg/dL High 8.5-10.1 [facility] Comment on above: Order Comment: 1 Y Performed By: #### L 100.0100, L501.5425, L503.6620, L300.4310, L300.3900, L500.2500 #### [facility] [address] [place], [address] Chloride [Moles/Vol] 110 mmol/L High 98-107 [facility] Comment on above: Order Comment: 1 Y Performed By: #### L 100.0100, L501.5425, L503.6620, L300.4310, L300.3900, L500.2500 #### [facility] [address] [place], [address] CO2 [Moles/Vol] 22.0 mmol/L Normal 21.0-32.0 [facility] Comment on above: Order Comment: 1 Y Performed By: #### L 100.0100, L501.5425, L503.6620, L300.4310, L300.3900, L500.2500 #### [facility] [address] [place], [address] Creatinine [Mass/Vol] 1.06 mg/dL High 0.55-1.02 [facility] Comment on above: Order Comment: 1 Y Result Comment: The validity of the calculated GFR GFRAA in patients over 70 years has not been determined. Clinical correlation is essential. Performed By: #### L 100.0100, L501.5425, L503.6620, L300.4310, L300.3900, L500.2500 #### [facility] [address] [place], [address] ECRCL 37.11 ml/min Normal [facility] Comment on above: Order Comment: 1 Y Performed By: #### L 100.0100, L501.5425, L503.6620, L300.4310, L300.3900, L500.2500 #### [facility] [address] [place], [address] EST GFR - AA 63 mL/min Normal >60 [facility] Comment on above: Order Comment: 1 Y Result Comment: Afri can [place] GFR Calc Performed By: #### L 100.0100, L501.5425, L503.6620, L300.4310, L300.3900, L500.2500 #### [facility] [address] [place], [address] GAP 9 Normal 5-15 [facility] Comment on above: Order Comment: 1 Y Performed By: #### L 100.0100, L501.5425, L503.6620, L300.4310, L300.3900, L500.2500 #### [facility] [address] [place], [address] GFR/1.73 sq M.predicted among non-blacks MDRD (S/P/Bld) [Vol rate/Area] 52 mL/min/{1.73_m2} Low >60 [facility] Comment on above: Order Comment: 1 Y Result Comment: Non- GFR Calc Performed By: #### L 100.0100, L501.5425, L503.6620, L300.4310, L300.3900, L500.2500 #### [facility] [address] [place], [address] Glucose [Mass/Vol] 122 mg/dL High 74-106 [facility] Comment on above: Order Comment: 1 Y Result Comment: Fast ing Glucose result from 100 to 125 mg/dL suggests IMPAIRED HOMEOSTASIS per A.D.A. criteria. Performed By: #### L 100.0100, L501.5425, L503.6620, L300.4310, L300.3900, L500.2500 #### [facility] [address] [place], [address] Potassium [Moles/Vol] 3.4 mmol/L Low 3.5-5.1 [facility] Comment on above: Order Comment: 1 Y Performed By: #### L 100.0100, L501.5425, L503.6620, L300.4310, L300.3900, L500.2500 #### [facility] [address] [place], [address] Sodium [Moles/Vol] 141 mmol/L Normal 136-145 [facility] Comment on above: Order Comment: 1 Y Performed By: #### L 100.0100, L501.5425, L503.6620, L300.4310, L300.3900, L500.2500 #### [facility] [address] [place], [address] Urea nitrogen [Mass/Vol] 18 mg/dL Normal 7-18 [facility] Comment on above: Order Comment: 1 Y Performed By: #### L 100.0100, L501.5425, L503.6620, L300.4310, L300.3900, L500.2500 #### [facility] [address] [place], [address] Bilirubin Test strip Ql (U)O rdered By: Florencio Camargo on 01-18-2024 Bilirubin Ql (U) Negative Negative [facility] Brain/Head without Contrasto n 01-18-2024 Brain/Head without Contrast [facility] Imaging Services [address] [place] [address] Brain/Head without Contrast MR#: [id number] Acct: [id number] Name: CARLEY SPRAGUE Rep #: [id number] : 1940 F 83 From: Denny Jarvis MD PCP: Dr. Brandon March MD Status: REG ER Study: Brain/Head without Contrast Date of Exam: 08/05 Exam# [id number] Ordering Dr: Florencio Camargo DO [id number] STUDY: CT BRAIN WITHOUT CONTRAST REASON FOR [...] Florencio Camargo ; Dr. Brandon March MD Data Reporting Analyst: Signed Normal [facility] CBC W/Diff, Automatedon 12-0 OVAL[employer]YTE RARE Normal [facility] Comment on above: Performed By: #### L 100.0100, L501.5425, L503.6620, L300.4310, L300.3900, L500.2500 #### [facility] [address] [place], [address] Anisocytosis Ql (Bld) 1+ Normal [facility] Comment on above: Performed By: #### L 100.0100, L501.5425, L503.6620, L300.4310, L300.3900, L500.2500 #### [facility] [address] [place], [address] ATYPICAL LYMPH 2+ Normal [facility] Comment on above: Performed By: #### L 100.0100, L501.5425, L503.6620, L300.4310, L300.3900, L500.2500 #### [facility] [address] [place], [address] MACROCYTOSIS 1+ Normal [facility] Comment on above: Performed By: #### L 100.0100, L501.5425, L503.6620, L300.4310, L300.3900, L500.2500 #### [facility] [address] [place], [address] PLT EST ADEQUATE Normal ADEQ [facility] Comment on above: Performed By: #### L 100.0100, L501.5425, L503.6620, L300.4310, L300.3900, L500.2500 #### [facility] [address] [place], [address] RED CELL MORPH N CHROM Normal NORM C C [facility] Comment on above: Performed By: #### L 100.0100, L501.5425, L503.6620, L300.4310, L300.3900, L500.2500 #### [facility] [address] [place], [address] SMEAR COMMENT SEE COMMENT Normal [facility] Comment on above: Result Comment: LYMP HOCYTOSIS NOTED Performed By: #### L 100.0100, L501.5425, L503.6620, L300.4310, L300.3900, L500.2500 #### [facility] [address] [place], [address] Chest PA and Lateralon 01-17 Chest PA and Lateral [facility] Imaging Services [address] [place] [address] Chest PA and Lateral MR#: [id number] Acct: [id number] Name: CARLEY SPRAGUE Rep #: [id number] : 1940 F 83 From: Denny Jarvis MD PCP: Dr. Brandon March MD Status: REG ER Study: Chest PA and Lateral Date of Exam: 01/18/24 Exam# [id number] Ordering Dr: Florencio Camargo DO [id number] STUDY: X-RAY CHEST REASON FOR EXAM: Female, [...] 20:46 EST Reading Location ID and State: [address] [place] [address] Tel , Service support , CC: Dr. Florencio Camargo DO; Dr. Brandon March MD Data Reporting Analyst: Signed Normal [facility] Echo Completeon 01-18-2024 Echo Complete [facility] Cardiovascular Services [address] [place] [address] Echo Complete 01/19/24 0743 MR#: [id number] Acct: [id number] Name: CARLEY SPRAGUE Rep #: [id number] : 1940 83 From: Se Ellis MD Attending Dr: Dr. Macario Allen DO Status: A DM IN Ordering Dr: Kal Wright DO Date: 01/18/24 Location: [facility] Sex: F C Admitted: 01/18/24 Reason For [...] Date Dictated: 01/19/2443 Date Transcribed: 01/19/24 132 Data Reporting Analyst: Signed Normal [facility] Emergency Department Summary on 01-18-2024 Emergency Department Summary [facility] Medical Records Department [address] [place] [address] Emergency Department Summary 01/18/24 MR#: [id number] Acct: [id number] Name: CARLEY SPRAGUE Rep #: [id number] : 1940 83 From: Florencio Camargo DO [...] intact Psych: Cooperative, appropriate mood and affect [facility] Medical History Ambulates with cane Anemia Arthritis [...] inclisiran 284 mg/1.5 mL 284 mg subcut [id number] 07/05/23 Unknown History subcutaneous syringe linaclotide 72 mcg capsule 72 mcg PO DAILY 07/05/23 Unknown History (Linzess) Allergy/AdvReac Type Severity Reaction Status Date / Time adhesive (more content not included)... Normal [facility] Epithelial cells.squamous LM Ql (Urine sed)Ordered By: Florencio Camargo on 01-18-2024 Epithelial cells.squamous LM.HPF (Urine sed) [#/Area] 0 /[HPF] 5-10 [facility] Folic acid measurementOrdere d By: Kal Nolan on 01-18-2024 Folate 22.40 ng/mL 3.1-55.4 [facility] Glucose Ql (U)Ordered By: Toby Camargo on 01-18-2024 Urine Glucose (UA) Normal mg/dl Normal [facility] H AND P Exam - [facility] 01-18-2024 H&P Exam - Hospitalist [facility] Medical Records Department [address] [place] [address] H P Exam - Hospitalist 01/18/24 2218 MR#: [id number] Acct: [id number] Name: CARLEY SPRAGUE Rep #: [id number] : 1940 83 From: Kal Wright DO PCP: Dr. Brandon March MD Status:ADM IN Location: ICU ICU[address] [place] [address] - General General Date of Admission: 01/18/24 [...] and history of TKR who presents to [facility] ER complaining of highly elevated blood [...] status expected to extend beyond 2 midnights. [facility] Medical History Personal history of colonic polyps [...] Medications ???Medicatio (more content not included)... Normal [facility] High density lipoprotein (HD L) measurementOrdered By: Kal Nolan on 01-18-2024 Cholesterol in HDL [Mass/Vol] 53 mg/dL >40 [facility] Comment on above: The drugs N-Acetylcy steine and Metamizole may falsely depress this assay. Reference Range HDL <40 mg/dL Low HDL Cholesterol HDL >or= 60 mg/dL High HDL Cholesterol International normalized rat io (INR) calculationOrdered By: Florencio Camargo on 01-18-2024 INR Coag (Bld) [Relative time] 1.0 {INR} [facility] Ketones Test strip Ql (U)Ord ered By: Florencio Camargo on 01-18-2024 Ketones Ql (U) 15 mg/dl High Negative [facility] L501.4020on 01-18-2024 TROPONIN-I HS 113 pg/mL High 3.0-54.0 [facility] Comment on above: Order Comment: 'TROP ' Serial specimen #1, #2 or #3: 2 Result Comment: Plea se Note: New Test Units and Gender Specific Reference Ranges. For more information see Policy Stat Procedure [place] High Sensitivity Troponin (TNIH) and attachments. Performed By: #### L 501.4020 #### [facility] [address] [place], [address] L501.5425on 01-18-2024 TROPONIN-I HS 107 pg/mL High 3.0-54.0 [facility] Comment on above: Order Comment: 1 Y Result Comment: [place] [employer] Note: New Test Units and Gender Specific Reference Ranges. For more information see Policy Stat Procedure [place] High Sensitivity Troponin (TNIH) and attachments. Performed By: #### L 100.0100, L501.5425, L503.6620, L300.4310, L300.3900, L500.2500 #### [facility] [address] [place], [place], [address] Laboratory - Hematology and Cell countsOrdered By: Florencio Camargo on 01-18-2024 Anisocytosis Ql (Bld) 1+ [facility] Low density lipoprotein (LDL ) cholesterol measurementOrdered By: Kal Nolan on 01-18-2024 Cholesterol in LDL [Mass/Vol] 103 mg/dL 0-130 [facility] Macrocytes Ql (Bld)Ordered B y: Florencio Camargo on 01-18-2024 Macrocytosis 1+ [facility] Manual differential comment Matthew (Bld) [Interp]Ordered By: Florencio Camargo on 01-18-2024 Differential Comment SEE COMMENT [facility] Comment on above: LYMPHOCYTOSIS NOTED Microscopic analysis of urin e for red blood cells (RBC)Ordered By: Florencio Camargo on 01-18-2024 Urine RBC 0-5 SEEN /hpf 0-5 [facility] [facility] Mucus LM Ql (Urine sed)Order ed By: Florencio Camargo on 01-18-2024 Mucus Ql (Urine sed) 1+ /hpf [facility] Nitrite Test strip Ql (U)Ord ered By: Florencio Camargo on 01-18-2024 Nitrite Ql (U) Negative Negative [facility] Ovalocytes LM Ql (Bld)Ordere d By: Florencio Camargo on 01-18-2024 Ovalocytes RARE [facility] Partial Thromboplast Timeon 01-18-2024 aPTT Coag (Bld) [Time] 23.6 s Low 24.1-36.2 [facility] Comment on above: Performed By: #### L 100.0100, L501.5425, L503.6620, L300.4310, L300.3900, L500.2500 #### [facility] [address] [place], [address] Platelets LM Ql (Bld)Ordered By: Florencio Camargo on 01-18-2024 Platelet Estimate ADEQUATE ADEQ [facility] Protein Test strip Ql (U)Ord ered By: Florencio Camargo on 01-18-2024 Protein Ql (U) 100 mg/dl High Negative [facility] Prothrombin Time w/INRon INR Coag (PPP) [Relative time] 1.0 {INR} Normal [facility] Comment on above: Performed By: #### L 100.0100, L501.5425, L503.6620, L300.4310, L300.3900, L500.2500 #### [facility] [address] [place], [address] PT Coag (PPP) [Time] 12.9 s Normal 11.7-14.9 [facility] Comment on above: Performed By: #### L 100.0100, L501.5425, L503.6620, L300.4310, L300.3900, L500.2500 #### [facility] [address] [place], [address] Prothrombin timeOrdered By: Florencio Camargo on 01-18-2024 PT Coag (PPP) [Time] 12.9 s 11.7-14.9 [facility] RBC morphology finding Nom ( Bld)Ordered By: Florencio Camargo on 01-18-2024 Red Blood Cell Morphology N CHROM NORMAL NORM C&C [facility] Serum or plasma cholesterol measurement (mass/volume)Ordered By: Kal Nolan on 01-18-2024 Cholesterol [Mass/Vol] 184 mg/dL <200 [facility] Comment on above: <200 mg/dL Desirable 200-240 mg/dL Borderline >240 mg/dL High Risk TSH QnOrdered By: Kal bradley on 01-18-2024 Thyroid Stimulating Hormone (TSH) 0.827 uIU/mL 0.358-3.740 [facility] Triglycerides measurementOrd ered By: Kal Nolan on 01-18-2024 Triglyceride [Mass/Vol] 140 mg/dL <199 [facility] Comment on above: The drugs N-Acetylcy steine and Metamizole may falsely depress this assay.Serum Triglycerides Reference Interval Normal <150 mg/dL Borderline high 150 - 199 mg/dL High 200 - 499 mg/dL Very High > or = 500 mg/dL Troponin IOrdered By: Florencio Camargo on 01-18-2024 Troponin I High Sensitivity 113 pg/mL High 3.0-54.0 [facility] Comment on above: Please Note: [place] t Units and Gender Specific Reference Ranges. For more information see Policy Stat Procedure [place] High Sensitivity Troponin (TNIH) and attachments. Urinalysis, Completeon 01-17 AMORPHOUS 1+ Normal [facility] Comment on above: Order Comment: LYNETTE CTOR TO SPECIFY Performed By: #### L 400.0001 #### [facility] [address] [place], [address] BACTERIA RARE Normal None Seen [facility] Comment on above: Order Comment: LYNETTE CTOR TO SPECIFY Performed By: #### L 400.0001 #### [facility] [address] [facility] [place], [place], [id number] Mucus Ql (Urine sed) 1+ /hpf Normal [facility] Comment on above: Order Comment: LYNETTE CTOR TO SPECIFY Performed By: #### L 400.0001 #### [facility] [address] [place], [place], [id number] RBC 0-5 SEEN Normal 0-5 [facility] Comment on above: Order Comment: LYNETTE CTOR TO SPECIFY Performed By: #### L 400.0001 #### [facility] [address] [place], [address] WBC 0-5 SEEN Normal 0-5 [facility] Comment on above: Order Comment: LYNETTE CTOR TO SPECIFY Performed By: #### L 400.0001 #### [facility] [address] [place], [place], [id number] EPI,SQUAMOUS 0 SEEN Normal 5-10 [facility] Comment on above: Order Comment: LYNETTE CTOR TO SPECIFY Performed By: #### L 400.0001 #### [facility] [address] [place], [place], [id number] Urine blood detectionOrdered By: Florencio Camargo on 01-18-2024 Urine Occult Blood 10 /ul High Negative [facility] Urine clarityOrdered By: Tomas Camargo on 01-18-2024 Clarity (U) Clear Clear [facility] Urine color determinationOrd ered By: Florencio Camargo on 01-18-2024 Color (U) Yellow Yellow [facility] Urine leukocyte esterase det ection by dipstickOrdered By: Florencio Camargo on 01-18-2024 Leukocyte esterase Test strip Ql (U) Negative Negative [facility] Urine pHOrdered By: Florencio Bourne on 01-18-2024 pH (U) 6.0 [pH] 5.0 - 8.0 [facility] Urine specific gravity measu rementOrdered By: Florencio Camargo on 01-18-2024 Specific gravity (U) [Rel density] 1.025 1.002-1.030 [facility] Urobilinogen Ql (U)Ordered B y: Florencio Camargo on 01-18-2024 Urine Urobilinogen Normal mg/dl Normal [facility] Very low density lipoprotein (VLDL) cholesterol measurementOrdered By: Kal Nolan on 01-18-2024 VLDL Cholesterol 28 mg/dL 5-40 [facility] White blood cell countOrdere d By: Florencio Camargo on 01-18-2024 Urine WBC 0-5 SEEN /hpf 0-5 [facility] aPTT Coag (PPP) [Time]Ordere d By: Florencio Camargo on 01-18-2024 aPTT Coag (Bld) [Time] 23.6 s Low 24.1-36.2 [facility] CBC W/Diff, Automatedon 11-0 -2023 Absolute Lymph 3.58 X10 3/uL Normal 0.83-4.51 [facility] Comment on above: Performed By: #### L 100.0100, L501.5425, L503.6620, L300.4310, L300.3900, L500.2500 #### [facility] [address] [place], [address] Absolute Neut 4.4 X10 3/uL Normal 2.0-7.7 [facility] Comment on above: Performed By: #### L 100.0100, L501.5425, L503.6620, L300.4310, L300.3900, L500.2500 #### [facility] [address] [place], [address] Basophils/100 WBC (Bld) 0.6 % Normal 0-1 [facility] Comment on above: Performed By: #### L 100.0100, L501.5425, L503.6620, L300.4310, L300.3900, L500.2500 #### [facility] [address] [place], [address] Eosinophils/100 WBC (Bld) 3.9 % Normal 0-5 [facility] Comment on above: Performed By: #### L 100.0100, L501.5425, L503.6620, L300.4310, L300.3900, L500.2500 #### [facility] [address] [place], [address] Erythrocyte distribution width (RBC) [Ratio] 11.9 % Normal 11.6-14.6 [facility] Comment on above: Performed By: #### L 100.0100, L501.5425, L503.6620, L300.4310, L300.3900, L500.2500 #### [facility] [address] [place], [address] Hematocrit (Bld) [Volume fraction] 42.7 % Normal 37-47 [facility] Comment on above: Performed By: #### L 100.0100, L501.5425, L503.6620, L300.4310, L300.3900, L500.2500 #### [facility] [address] [place], [address] Hemoglobin (Bld) [Mass/Vol] 13.8 g/dL Normal 12.0-15.0 [facility] Comment on above: Performed By: #### L 100.0100, L501.5425, L503.6620, L300.4310, L300.3900, L500.2500 #### [facility] [address] [place], [address] IG% 0.300 Normal 0.0-0.9 [facility] Comment on above: Result Comment: IG% - Immature Granulocytes (promyelocytes, myelocytes and metamyelocytes) > 1% indicates that a LEFT SHIFT is Present. Performed By: #### L 100.0100, L501.5425, L503.6620, L300.4310, L300.3900, L500.2500 #### [facility] [address] [place], [address] Lymphocytes/100 WBC (Bld) 38.6 % Normal 19-41 [facility] Comment on above: Performed By: #### L 100.0100, L501.5425, L503.6620, L300.4310, L300.3900, L500.2500 #### [facility] [address] [place], [address] MCH (RBC) [Entitic mass] 29.9 pg Normal 27.0-32.0 [facility] Comment on above: Performed By: #### L 100.0100, L501.5425, L503.6620, L300.4310, L300.3900, L500.2500 #### [facility] [address] [place], [address] MCHC (RBC) [Mass/Vol] 32.3 g/dL Normal 32-36 [facility] Comment on above: Performed By: #### L 100.0100, L501.5425, L503.6620, L300.4310, L300.3900, L500.2500 #### [facility] [address] [place], [address] MCV (RBC) [Entitic vol] 92.4 fL Normal 81-99 [facility] Comment on above: Performed By: #### L 100.0100, L501.5425, L503.6620, L300.4310, L300.3900, L500.2500 #### [facility] [address] [place], [address] Monocytes/100 WBC (Bld) 8.7 % Normal 0-10 [facility] Comment on above: Performed By: #### L 100.0100, L501.5425, L503.6620, L300.4310, L300.3900, L500.2500 #### [facility] [address] [place], [address] Neutrophils/100 WBC (Bld) 47.9 % Normal 47-70 [facility] Comment on above: Performed By: #### L 100.0100, L501.5425, L503.6620, L300.4310, L300.3900, L500.2500 #### [facility] [address] [place], [address] Nucleated RBC (Bld) [#/Vol] 0 10*3/uL Normal 0-5 [facility] Comment on above: Performed By: #### L 100.0100, L501.5425, L503.6620, L300.4310, L300.3900, L500.2500 #### [facility] [address] [place], [address] Platelet mean volume (Bld) [Entitic vol] 9.9 fL Normal 6.2-12.0 [facility] Comment on above: Performed By: #### L 100.0100, L501.5425, L503.6620, L300.4310, L300.3900, L500.2500 #### [facility] [address] [place], [address] Platelets (Bld) [#/Vol] 284 10*3/uL Normal 150-450 [facility] Comment on above: Performed By: #### L 100.0100, L501.5425, L503.6620, L300.4310, L300.3900, L500.2500 #### [facility] [address] [place], [address] RBC (Bld) [#/Vol] 4.62 10*6/uL Normal 4.2-5.4 [facility] Comment on above: Performed By: #### L 100.0100, L501.5425, L503.6620, L300.4310, L300.3900, L500.2500 #### [facility] [address] [place], [address] RDW SD 40.5 fl Normal 35.1-43.9 [facility] Comment on above: Performed By: #### L 100.0100, L501.5425, L503.6620, L300.4310, L300.3900, L500.2500 #### [facility] [address] [place], [address] WBC (Bld) [#/Vol] 9.3 10*3/uL Normal 4.4-11.0 [facility] Comment on above: Performed By: #### L 100.0100, L501.5425, L503.6620, L300.4310, L300.3900, L500.2500 #### [facility] [address] [place], [address] Comprehensive Metabolic Prof ilon 12-20-2023 Albumin [Mass/Vol] 3.6 g/dL Normal 3.2-5.0 [facility] Comment on above: Performed By: #### L 100.0100, L501.5425, L503.6620, L300.4310, L300.3900, L500.2500 #### [facility] [address] [place], [address] Albumin/Globulin [Mass ratio] 1.2 {ratio} Normal 0.9-2.4 [facility] Comment on above: Performed By: #### L 100.0100, L501.5425, L503.6620, L300.4310, L300.3900, L500.2500 #### [facility] [address] [place], [address] ALK P 74 U/L Normal 45-117 [facility] Comment on above: Performed By: #### L 100.0100, L501.5425, L503.6620, L300.4310, L300.3900, L500.2500 #### [facility] [address] [place], [address] ALT [Catalytic activity/Vol] 23 U/L Normal 13-56 [facility] Comment on above: Performed By: #### L 100.0100, L501.5425, L503.6620, L300.4310, L300.3900, L500.2500 #### [facility] [address] [place], [address] AST [Catalytic activity/Vol] 28 U/L Normal 15-37 [facility] Comment on above: Performed By: #### L 100.0100, L501.5425, L503.6620, L300.4310, L300.3900, L500.2500 #### [facility] [address] [place], [address] Bilirubin [Mass/Vol] 0.70 mg/dL Normal 0.20-1.00 [facility] Comment on above: Result Comment: For patients on eltrombopag therapy, use of Dimension [place] TBIL is not recommended. Performed By: #### L 100.0100, L501.5425, L503.6620, L300.4310, L300.3900, L500.2500 #### [facility] [address] [place], [address] BUN/CRE 14.9 RATIO Normal 10-20 [facility] Comment on above: Performed By: #### L 100.0100, L501.5425, L503.6620, L300.4310, L300.3900, L500.2500 #### [facility] [address] [place], [address] CA,Total 9.8 mg/dL Normal 8.5-10.1 [facility] Comment on above: Performed By: #### L 100.0100, L501.5425, L503.6620, L300.4310, L300.3900, L500.2500 #### [facility] [address] [place], [address] Chloride [Moles/Vol] 110 mmol/L High 98-107 [facility] Comment on above: Performed By: #### L 100.0100, L501.5425, L503.6620, L300.4310, L300.3900, L500.2500 #### [facility] [address] [place], [address] CO2 [Moles/Vol] 27.0 mmol/L Normal 21.0-32.0 [facility] Comment on above: Performed By: #### L 100.0100, L501.5425, L503.6620, L300.4310, L300.3900, L500.2500 #### [facility] [address] [place], [address] Creatinine [Mass/Vol] 1.01 mg/dL Normal 0.55-1.02 [facility] Comment on above: Result Comment: The validity of the calculated GFR GFRAA in patients over 70 years has not been determined. Clinical correlation is essential. Performed By: #### L 100.0100, L501.5425, L503.6620, L300.4310, L300.3900, L500.2500 #### [facility] [address] [place], [address] EST GFR - AA 67 mL/min Normal >60 [facility] Comment on above: Result Comment: Afri can [place] GFR Calc Performed By: #### L 100.0100, L501.5425, L503.6620, L300.4310, L300.3900, L500.2500 #### [facility] [address] [place], [address] GAP 3 Low 5-15 [facility] Comment on above: Performed By: #### L 100.0100, L501.5425, L503.6620, L300.4310, L300.3900, L500.2500 #### [facility] [address] [place], [address] GFR/1.73 sq M.predicted among non-blacks MDRD (S/P/Bld) [Vol rate/Area] 55 mL/min/{1.73_m2} Low >60 [facility] Comment on above: Result Comment: Non- GFR Calc Performed By: #### L 100.0100, L501.5425, L503.6620, L300.4310, L300.3900, L500.2500 #### [facility] [address] [place], [address] Globulin (S) [Mass/Vol] 2.9 g/dL Normal 2.2-4.2 [facility] Comment on above: Performed By: #### L 100.0100, L501.5425, L503.6620, L300.4310, L300.3900, L500.2500 #### [facility] [address] [place], [address] Glucose [Mass/Vol] 92 mg/dL Normal 74-106 [facility] Comment on above: Performed By: #### L 100.0100, L501.5425, L503.6620, L300.4310, L300.3900, L500.2500 #### [facility] [address] [place], [address] Potassium [Moles/Vol] 4.4 mmol/L Normal 3.5-5.1 [facility] Comment on above: Performed By: #### L 100.0100, L501.5425, L503.6620, L300.4310, L300.3900, L500.2500 #### [facility] [address] [place], [address] Sodium [Moles/Vol] 140 mmol/L Normal 136-145 [facility] Comment on above: Performed By: #### L 100.0100, L501.5425, L503.6620, L300.4310, L300.3900, L500.2500 #### [facility] [address] [place], [address] T PROT 6.5 g/dL Normal 6.4-8.2 [facility] Comment on above: Performed By: #### L 100.0100, L501.5425, L503.6620, L300.4310, L300.3900, L500.2500 #### [facility] [address] [place], [address] Urea nitrogen [Mass/Vol] 15 mg/dL Normal 7-18 [facility] Comment on above: Performed By: #### L 100.0100, L501.5425, L503.6620, L300.4310, L300.3900, L500.2500 #### [facility] [address] [place], [address] Thyroid Stim Hormone (TSH)on 12-20-2023 TSH 1.110 uIU/mL Normal 0.358-3.740 [facility] Comment on above: Performed By: #### L 100.0100, L501.5425, L503.6620, L300.4310, L300.3900, L500.2500 #### [facility] [address] [place], [address] Vitamin D,25 Hydroxyon 12-19 Vitamin D 25-OH 30.7 ng/mL Normal [facility] Comment on above: Result Comment: Cristina min D 25(OH) Status Range Deficiency <20 ng/mL (50nmol/L) Insufficiency 20 - 30 ng/mL (50 - 75 nmol/L) Sufficiency 30 - 100 ng/mL (75 - 250 nmol/L) Toxicity >100 ng/mL (>250 nmol/L) Performed By: #### L 100.0100, L501.5425, L503.6620, L300.4310, L300.3900, L500.2500 #### [facility] [address] [place], [address] Wrist 2 Viewson 09-03-2023 Wrist 2 Views [facility] Imaging Services [address] [place] [address] Wrist 2 Views MR#: [id number] Acct: [id number] Name: CARLEY SPRAGUE Rep #: [id number] : 1940 F 83 From: Austin Jacobo MD PCP: Dr. Brandon March MD Status: REG CLI Study: Wrist 2 Views Date of Exam: 09/03/23 Exam# [id number] Ordering Dr: Brandon March MD [id number] STUDY: X-RAY - RIGHT WRIST REASON FOR [...] EDT , CC: Dr. Brandon March MD Data Reporting Analyst: Signed Normal [facility] Echo Completeon 08-06-2023 Echo Complete [facility] [address] [place] [address] Echo Complete 08/06/23 1052 MR#: [id number] Acct: [id number] Name: CARLEY SPRAGUE Rep #: [id number] : 1940 83 From: Bennie Landrum MD [...] Date Bennie Landrum MD CC: Dr. Brandon March MD; NAIMA Akers Date Dictated: 08/06/23 1052 Date Transcribed: 08/06/23 1609 Data Reporting Analyst: Signed Normal [facility] M100.678on 07-12-2023 M100.678 SARS-CoV-2 (COVID 19 ) Negative INFLUENZA A Negative INFLUENZA B Negative RSV PCR Negative [facility] Comment on above: Performed By: #### L 100.0100, L501.5425, L503.6620, L300.4310, L300.3900, L500.2500 #### [facility] [address] [place], [address] Cardiology Visit Reporton Cardiology Visit Report [facility] 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 Normal [facility] No Panel InformationOrdered By: Brandon March on 05-30-2023 Vitamin D 25-Hydroxy 33.8 ng/mL [facility] Comment on above: Vitamin D 25(OH) Sta tus Range Deficiency <20 ng/mL (50nmol/L) Insufficiency 20 - 30 ng/mL (50 - 75 nmol/L) Sufficiency 30 - 100 ng/mL (75 - 250 nmol/L) Toxicity >100 ng/mL (>250 nmol/L) Serum or plasma thyroid stim ulating hormone (TSH) measurement (units/volume)Ordered By: Brandon March on 05-30-2023 TSH Qn 0.86 uIU/mL 0.358-3.74 [facility] Absolute lymphocyte countOrd ered By: Brandon March on 05-16-2023 Lymphocytes Auto (Unsp spec) [#/Vol] 3.79 10*3/uL 0.83-4.51 [facility] Automated lymphocyte count a s percentage of total leukocytesOrdered By: Brandon March on 05-16-2023 Lymphocytes/100 WBC Auto (Unsp spec) 38.0 % 19-41 [facility] Basophil percentageOrdered B y: Brandon March on 05-16-2023 Basophils/100 WBC (Bld) 0.5 % 0-1 [facility] Chloride [Moles/Vol] 107 mmol/L 98-107 [facility] Eosinophils/100 WBC (Bld) 1.3 % 0-5 [facility] Glucose [Mass/Vol] 118 mg/dL 74-106 [facility] Comment on above: Fasting Glucose resu lt from 100 to 125 mg/dL suggests IMPAIRED HOMEOSTASIS per A.D.A. criteria. Hemoglobin (Bld) [Mass/Vol] 13.8 g/dL 12.0-15.0 [facility] Monocytes/100 WBC (Bld) 7.8 % 0-10 [facility] Neutrophils (Bld) [#/Vol] 5.2 10*3/uL 2.0-7.7 [facility] Neutrophils/100 WBC (Bld) 52.3 % 47-70 [facility] Potassium [Moles/Vol] 3.8 mmol/L 3.5-5.1 [facility] Sodium [Moles/Vol] 139 mmol/L 136-145 [facility] WBC (Bld) [#/Vol] 10.0 10*3/uL 4.4-11.0 [facility] Bilirubin Test strip Ql (U)O rdered By: Brandon March on 05-16-2023 Bilirubin Ql (U) Negative Negative [facility] Culture, urineOrdered By: Dony March on 05-16-2023 Bacteria identified Cx Nom (U) Mixed Gram Pos & Gram Neg Org [facility] Determination of erythrocyte mean corpuscular volume (MCV)Ordered By: Brandon March on 05-16-2023 MCV (RBC) [Entitic vol] 90.9 fL 81-99 [facility] Erythrocyte distribution wid th ratioOrdered By: Brandon March on 05-16-2023 Erythrocyte distribution width (RBC) [Ratio] 11.9 % 11.6-14.6 [facility] Erythrocyte distribution wid th standard deviationOrdered By: Brandon March on 05-16-2023 Erythrocyte distribution width (RBC) [Entitic vol] 39.5 fL 35.1-43.9 [facility] Hematocrit Auto (Bld) [Volum e fraction]Ordered By: Brandon March on 05-16-2023 Hematocrit (Bld) [Volume fraction] 40.9 % 37-47 [facility] Immature granulocytes/100 WB C Auto (Bld)Ordered By: Brandon March on 05-16-2023 Immature granulocytes/100 WBC (Bld) 0.100 % 0.0-0.9 [facility] Comment on above: IG% - Immature Granu locytes (promyelocytes, myelocytes and metamyelocytes) > 1% indicates that a LEFT SHIFT is Present. Ketones Test strip Ql (U)Ord ered By: Brandon March on 05-16-2023 Ketones Ql (U) Negative Negative [facility] - Chemistry and C hemistry - challengeOrdered By: Brandon March 05-16-2023 CO2 [Moles/Vol] 27.0 mmol/L 21.0-32.0 [facility] Urea nitrogen/Creatinine [Mass ratio] 17.7 mg/mg 10-20 [facility] - Hematology and Cell countsOrdered By: Brandon March 05-16-2023 MCH (RBC) [Entitic mass] 30.7 pg 27.0-32.0 [facility] MCHC (RBC) [Mass/Vol] 33.7 g/dL 32-36 [facility] Nucleated RBC/100 WBC (Bld) [Ratio] 0 % 0-5 [facility] Platelet mean volume (Bld) [Entitic vol] 10.5 fL 6.2-12.0 [facility] Platelets (Bld) [#/Vol] 279 10*3/uL 150-450 [facility] Nitrite Test strip Ql (U)Ord ered By: Brandon March on 05-16-2023 Nitrite Ql (U) Negative Negative [facility] No Panel InformationOrdered By: Brandon March on 05-16-2023 Estimated GFR (MDRD) Amer 53 mL/min >60 [facility] Comment on above: GFR Calc Estimated GFR (MDRD) Non-Af Amer 44 mL/min >60 [facility] Comment on above: Non- GFR Calc Protein Test strip Ql (U)Ord ered By: Brandon March on 05-16-2023 Protein Ql (U) Negative Negative [facility] RBC Auto (Bld) [#/Vol]Ordere d By: Brandon March on 05-16-2023 RBC (Bld) [#/Vol] 4.50 10*6/uL 4.2-5.4 [facility] Serum or plasma calcium bacilio urement (mass/volume)Ordered By: Brandon March on 05-16-2023 Calcium [Mass/Vol] 10.1 mg/dL 8.5-10.1 [facility] Serum or plasma creatinine m easurement (mass/volume)Ordered By: Brandon March on 05-16-2023 Creatinine [Mass/Vol] 1.24 mg/dL 0.55-1.02 [facility] Comment on above: The validity of the calculated GFR & GFRAA in patients over 70 years has not been determined. Clinical correlation is essential. Serum or plasma urea nitroge n measurement (mass/volume)Ordered By: Brandon Macrh on 05-16-2023 Urea nitrogen [Mass/Vol] 22 mg/dL 7-18 [facility] Thin prep Papanicolaou smear with manual screeningOrdered By: Brandon March on 05-16-2023 Thin prep Papanicolaou smear with manual screening 5 5-15 [facility] Urine blood detectionOrdered By: Brandon March on 05-16-2023 RBC Ql (U) Negative Negative [facility] Urine clarityOrdered By: Brandon March on 05-16-2023 Clarity (U) Clear Clear [facility] Urine color determinationOrd ered By: Brandon March on 05-16-2023 Color (U) Yellow Yellow [facility] Urine glucose detectionOrder ed By: Brandon March on 05-16-2023 Glucose Ql (U) Normal mg/dl Normal [facility] Urine leukocyte esterase det ection by dipstickOrdered By: Brandon March on 05-16-2023 Leukocyte esterase Test strip Ql (U) 100 /ul Negative [facility] Urine pHOrdered By: Brandon March on 05-16-2023 pH (U) 6.0 [pH] 5.0 - 8.0 [facility] Urine specific gravity measu rementOrdered By: Brandon March on 05-16-2023 Specific gravity (U) [Rel density] 1.010 1.002-1.030 [facility] Urine urobilinogen measureme ntOrdered By: Brandon March on 05-16-2023 Urobilinogen Ql (U) Normal mg/dl Normal [facility] No Panel InformationOrdered By: Serjio Ramesh on 03-14-2023 Miscellaneous Test See comment [facility] Comment on above: Sent directly to [facility] per ordering physician. Absolute lymphocyte countOrd ered By: Brandon March on 11-07-2022 Lymphocytes Auto (Unsp spec) [#/Vol] 2.84 10*3/uL 0.83-4.51 [facility] Basophil percentageOrdered B y: Brandon March on 11-07-2022 Basophils/100 WBC (Bld) 0.7 % 0-1 [facility] Bilirubin [Mass/Vol] 0.80 mg/dL 0.20-1.00 [facility] Comment on above: For patients on eltr ombopag therapy, use of Dimension [place] TBIL is not recommended. Chloride [Moles/Vol] 111 mmol/L 98-107 [facility] Eosinophils/100 WBC (Bld) 2.8 % 0-5 [facility] Glucose [Mass/Vol] 111 mg/dL 74-106 [facility] Comment on above: Fasting Glucose resu lt from 100 to 125 mg/dL suggests IMPAIRED HOMEOSTASIS per A.D.A. criteria. Neutrophils (Bld) [#/Vol] 5.4 10*3/uL 2.0-7.7 [facility] Neutrophils/100 WBC (Bld) 56.5 % 47-70 [facility] Potassium [Moles/Vol] 4.0 mmol/L 3.5-5.1 [facility] Protein [Mass/Vol] 6.6 g/dL 6.4-8.2 [facility] Sodium [Moles/Vol] 143 mmol/L 136-145 [facility] WBC (Bld) [#/Vol] 9.5 10*3/uL 4.4-11.0 [facility] Blood erythrocytes count (nu mber/volume)Ordered By: Brandon March on 11-07-2022 RBC (Bld) [#/Vol] 4.41 10*6/uL 4.2-5.4 [facility] Blood hemoglobin measurement (mass/volume)Ordered By: Brandon March on 11-07-2022 Hemoglobin (Bld) [Mass/Vol] 13.7 g/dL 12.0-15.0 [facility] Blood lymphocytes/100 leukoc ytesOrdered By: Brandon March on 11-07-2022 Lymphocytes/100 WBC (Bld) 29.8 % 19-41 [facility] Blood monocytes/100 leukocyt esOrdered By: Brandon March on 11-07-2022 Monocytes/100 WBC (Bld) 10.0 % 0-10 [facility] Blood platelet mean volumeOr dered By: Brandon March on 11-07-2022 Platelet mean volume (Bld) [Entitic vol] 10.3 fL 6.2-12.0 [facility] Determination of erythrocyte mean corpuscular volume (MCV)Ordered By: Brandon March on 11-07-2022 MCV (RBC) [Entitic vol] 93.0 fL 81-99 [facility] Hematocrit Auto (Bld) [Volum e fraction]Ordered By: Brandon March on 11-07-2022 Hematocrit (Bld) [Volume fraction] 41.0 % 37-47 [facility] Laboratory - Chemistry and C hemistry - challengeOrdered By: Brandon March on 11-07-2022 ALP [Catalytic activity/Vol] 64 U/L 45-117 [facility] ALT [Catalytic activity/Vol] 31 U/L 13-56 [facility] CO2 [Moles/Vol] 27.0 mmol/L 21.0-32.0 [facility] Globulin (S) [Mass/Vol] 3.0 g/dL 2.2-4.2 [facility] Urea nitrogen/Creatinine [Mass ratio] 26.1 mg/mg 10-20 [facility] Laboratory - Hematology and Cell countsOrdered By: Brandon March on 11-07-2022 Erythrocyte distribution width (RBC) [Entitic vol] 42.2 fL 35.1-43.9 [facility] Erythrocyte distribution width (RBC) [Ratio] 12.2 % 11.6-14.6 [facility] Immature granulocytes/100 WBC (Bld) 0.200 % 0.0-0.9 [facility] Comment on above: IG% - Immature Granu locytes (promyelocytes, myelocytes and metamyelocytes) > 1% indicates that a LEFT SHIFT is Present. MCH (RBC) [Entitic mass] 31.1 pg 27.0-32.0 [facility] Nucleated RBC/100 WBC (Bld) [Ratio] 0 % 0-5 [facility] MCHC Auto (RBC) [Mass/Vol]Or dered By: Brandon March on 11-07-2022 MCHC (RBC) [Mass/Vol] 33.4 g/dL 32-36 [facility] No Panel InformationOrdered By: Brandon March on 11-07-2022 Estimated GFR (MDRD) Amer 60 mL/min >60 [facility] Comment on above: GFR Calc Estimated GFR (MDRD) Non-Af Amer 50 mL/min >60 [facility] Comment on above: Non- GFR Calc Thyroid Stimulating Hormone (TSH) 0.49 uIU/mL 0.358-3.74 [facility] Vitamin D 25-Hydroxy 36.2 ng/mL [facility] Comment on above: Vitamin D 25(OH) Sta tus Range Deficiency <20 ng/mL (50nmol/L) Insufficiency 20 - 30 ng/mL (50 - 75 nmol/L) Sufficiency 30 - 100 ng/mL (75 - 250 nmol/L) Toxicity >100 ng/mL (>250 nmol/L) Platelets bldOrdered By: Brandon March on 11-07-2022 Platelets (Bld) [#/Vol] 288 10*3/uL 150-450 [facility] Serum or plasma albumin bacilio urement (mass/volume)Ordered By: Brandon March on 11-07-2022 Albumin [Mass/Vol] 3.6 g/dL 3.2-5.0 [facility] Serum or plasma albumin/glob ulin mass ratioOrdered By: Brandon March on 11-07-2022 Albumin/Globulin [Mass ratio] 1.2 {ratio} 0.9-2.4 [facility] Serum or plasma calcium bacilio urement (mass/volume)Ordered By: Brandon March on 11-07-2022 Calcium [Mass/Vol] 9.8 mg/dL 8.5-10.1 [facility] Serum or plasma creatinine m easurement (mass/volume)Ordered By: Brandon March on 11-07-2022 Creatinine [Mass/Vol] 1.11 mg/dL 0.55-1.02 [facility] Comment on above: The validity of the calculated GFR & GFRAA in patients over 70 years has not been determined. Clinical correlation is essential. Serum or plasma urea nitroge n measurement (mass/volume)Ordered By: Brandon March on 11-07-2022 Urea nitrogen [Mass/Vol] 29 mg/dL 7-18 [facility] Thin prep Papanicolaou smear with manual screeningOrdered By: Brandon Joaquim on 11-07-2022 Thin prep Papanicolaou smear with manual screening 26 U/L 15-37 [facility] Thin prep Papanicolaou smear with manual screening 5 5-15 [facility] Absolute lymphocyte countOrd ered By: Brandon Joaquim on 10-11-2022 Lymphocytes Auto (Unsp spec) [#/Vol] 4.06 10*3/uL 0.83-4.51 [facility] Basophil percentageOrdered B y: Brandon March on 10-11-2022 Basophils/100 WBC (Bld) 0.7 % 0-1 [facility] Bilirubin [Mass/Vol] 0.70 mg/dL 0.20-1.00 [facility] Comment on above: For patients on eltr ombopag therapy, use of Dimension [place] TBIL is not recommended. Chloride [Moles/Vol] 108 mmol/L 98-107 [facility] Eosinophils/100 WBC (Bld) 2.4 % 0-5 [facility] Glucose [Mass/Vol] 105 mg/dL 74-106 [facility] Comment on above: Fasting Glucose resu lt from 100 to 125 mg/dL suggests IMPAIRED HOMEOSTASIS per A.D.A. criteria. Neutrophils (Bld) [#/Vol] 6.8 10*3/uL 2.0-7.7 [facility] Neutrophils/100 WBC (Bld) 55.0 % 47-70 [facility] Potassium [Moles/Vol] 4.0 mmol/L 3.5-5.1 [facility] Protein [Mass/Vol] 7.3 g/dL 6.4-8.2 [facility] Sodium [Moles/Vol] 140 mmol/L 136-145 [facility] WBC (Bld) [#/Vol] 12.3 10*3/uL 4.4-11.0 [facility] Blood erythrocytes count (nu mber/volume)Ordered By: Brandon March on 10-11-2022 RBC (Bld) [#/Vol] 5.01 10*6/uL 4.2-5.4 [facility] Blood hemoglobin measurement (mass/volume)Ordered By: Brandon March on 10-11-2022 Hemoglobin (Bld) [Mass/Vol] 15.2 g/dL 12.0-15.0 [facility] Blood lymphocytes/100 leukoc ytesOrdered By: Brandon March on 10-11-2022 Lymphocytes/100 WBC (Bld) 33.0 % 19-41 [facility] Blood monocytes/100 leukocyt esOrdered By: Brandon March on 10-11-2022 Monocytes/100 WBC (Bld) 8.6 % 0-10 [facility] Blood platelet mean volumeOr dered By: Brandon March on 10-11-2022 Platelet mean volume (Bld) [Entitic vol] 10.3 fL 6.2-12.0 [facility] Culture, urineOrdered By: Dony March on 10-11-2022 Bacteria identified Cx Nom (U) Positive [facility] Determination of erythrocyte mean corpuscular volume (MCV)Ordered By: Brandon March on 10-11-2022 MCV (RBC) [Entitic vol] 93.0 fL 81-99 [facility] Hematocrit Auto (Bld) [Volum e fraction]Ordered By: Brandon March on 10-11-2022 Hematocrit (Bld) [Volume fraction] 46.6 % 37-47 [facility] Laboratory - Chemistry and C hemistry - challengeOrdered By: Brandon March on 10-11-2022 ALP [Catalytic activity/Vol] 70 U/L 45-117 [facility] ALT [Catalytic activity/Vol] 33 U/L 13-56 [facility] CO2 [Moles/Vol] 26.0 mmol/L 21.0-32.0 [facility] Globulin (S) [Mass/Vol] 3.2 g/dL 2.2-4.2 [facility] Urea nitrogen/Creatinine [Mass ratio] 18.8 mg/mg 10-20 [facility] Laboratory - Hematology and Cell countsOrdered By: Brandon March on 10-11-2022 Erythrocyte distribution width (RBC) [Entitic vol] 41.3 fL 35.1-43.9 [facility] Erythrocyte distribution width (RBC) [Ratio] 12.0 % 11.6-14.6 [facility] Immature granulocytes/100 WBC (Bld) 0.300 % 0.0-0.9 [facility] Comment on above: IG% - Immature Granu locytes (promyelocytes, myelocytes and metamyelocytes) > 1% indicates that a LEFT SHIFT is Present. MCH (RBC) [Entitic mass] 30.3 pg 27.0-32.0 [facility] Nucleated RBC/100 WBC (Bld) [Ratio] 0 % 0-5 [facility] MCHC Auto (RBC) [Mass/Vol]Or dered By: Brandon March on 10-11-2022 MCHC (RBC) [Mass/Vol] 32.6 g/dL 32-36 [facility] No Panel InformationOrdered By: Brandon aMrch on 10-11-2022 Estimated GFR (MDRD) Amer 60 mL/min >60 [facility] Comment on above: GFR Calc Estimated GFR (MDRD) Non-Af Amer 49 mL/min >60 [facility] Comment on above: Non- GFR Calc Thyroid Stimulating Hormone (TSH) 1.02 uIU/mL 0.358-3.74 [facility] Platelets bldOrdered By: Brandon March on 10-11-2022 Platelets (Bld) [#/Vol] 330 10*3/uL 150-450 [facility] Serum or plasma albumin bacilio urement (mass/volume)Ordered By: Brandon March on 10-11-2022 Albumin [Mass/Vol] 4.1 g/dL 3.2-5.0 [facility] Serum or plasma albumin/glob ulin mass ratioOrdered By: Brandon March on 10-11-2022 Albumin/Globulin [Mass ratio] 1.3 {ratio} 0.9-2.4 [facility] Serum or plasma calcium bacilio urement (mass/volume)Ordered By: Brandon March on 10-11-2022 Calcium [Mass/Vol] 10.9 mg/dL 8.5-10.1 [facility] Serum or plasma creatinine m easurement (mass/volume)Ordered By: Brandon March on 10-11-2022 Creatinine [Mass/Vol] 1.12 mg/dL 0.55-1.02 [facility] Comment on above: The validity of the calculated GFR & GFRAA in patients over 70 years has not been determined. Clinical correlation is essential. Serum or plasma urea nitroge n measurement (mass/volume)Ordered By: Brandon March on 10-11-2022 Urea nitrogen [Mass/Vol] 21 mg/dL 7-18 [facility] Thin prep Papanicolaou smear with manual screeningOrdered By: Brandon March on 10-11-2022 Thin prep Papanicolaou smear with manual screening 35 U/L 15-37 [facility] Thin prep Papanicolaou smear with manual screening 6 5-15 [facility] SARS-CoV-2 (COVID-19) Ag IA. rapid Ql (Resp)Ordered By: Dr. March on 07-14-2022 SARS-CoV-2 Antigen (Rapid) SARS-CoV-2 (COVID 19) [facility] Bacteria identified Cx Nom ( Wound)Ordered By: Dr. Atkinson on 06-24-2022 Wound Culture Staphylococcus epidermidis [facility] Gram stain for investigation of transfusion reactionOrdered By: Dr. Atkinson on 06-22-2022 Microscopic observation Gram stain Nom (Unsp spec) [facility] Absolute lymphocyte countOrd ered By: Dr. March on 05-17-2022 Lymphocytes Auto (Unsp spec) [#/Vol] 4.60 10*3/uL 0.83-4.51 [facility] Basophil percentageOrdered B y: Dr. March on 05-17-2022 Basophils/100 WBC (Bld) 0.5 % 0-1 [facility] Bilirubin [Mass/Vol] 0.50 mg/dL 0.20-1.00 [facility] Comment on above: For patients on eltr ombopag therapy, use of Dimension [place] TBIL is not recommended. Chloride [Moles/Vol] 108 mmol/L 98-107 [facility] Eosinophils/100 WBC (Bld) 1.5 % 0-5 [facility] Glucose [Mass/Vol] 68 mg/dL 74-106 [facility] Neutrophils (Bld) [#/Vol] 7.7 10*3/uL 2.0-7.7 [facility] Neutrophils/100 WBC (Bld) 56.4 % 47-70 [facility] Potassium [Moles/Vol] 3.7 mmol/L 3.5-5.1 [facility] Protein [Mass/Vol] 6.9 g/dL 6.4-8.2 [facility] Sodium [Moles/Vol] 140 mmol/L 136-145 [facility] WBC (Bld) [#/Vol] 13.6 10*3/uL 4.4-11.0 [facility] Blood erythrocytes count (nu mber/volume)Ordered By: Dr. March on 05-17-2022 RBC (Bld) [#/Vol] 5.10 10*6/uL 4.2-5.4 [facility] Blood hemoglobin measurement (mass/volume)Ordered By: Dr. March on 05-17-2022 Hemoglobin (Bld) [Mass/Vol] 15.3 g/dL 12.0-15.0 [facility] Blood lymphocytes/100 leukoc ytesOrdered By: Dr. March on 05-17-2022 Lymphocytes/100 WBC (Bld) 33.8 % 19-41 [facility] Blood monocytes/100 leukocyt esOrdered By: Dr. March on 05-17-2022 Monocytes/100 WBC (Bld) 7.5 % 0-10 [facility] Blood platelet mean volumeOr dered By: Dr. March on 05-17-2022 Platelet mean volume (Bld) [Entitic vol] 10.9 fL 6.2-12.0 [facility] Determination of erythrocyte mean corpuscular volume (MCV)Ordered By: Dr. March on 05-17-2022 MCV (RBC) [Entitic vol] 92.2 fL 81-99 [facility] Hematocrit Auto (Bld) [Volum e fraction]Ordered By: Dr. March on 05-17-2022 Hematocrit (Bld) [Volume fraction] 47.0 % 37-47 [facility] Laboratory - Chemistry and C hemistry - challengeOrdered By: Dr. March on 05-17-2022 ALP [Catalytic activity/Vol] 77 U/L 45-117 [facility] ALT [Catalytic activity/Vol] 30 U/L 13-56 [facility] CO2 [Moles/Vol] 23.0 mmol/L 21.0-32.0 [facility] Globulin (S) [Mass/Vol] 3.0 g/dL 2.2-4.2 [facility] Urea nitrogen/Creatinine [Mass ratio] 16.7 mg/mg 10-20 [facility] Laboratory - Hematology and Cell countsOrdered By: Dr. March on 05-17-2022 Erythrocyte distribution width (RBC) [Entitic vol] 42.3 fL 35.1-43.9 [facility] Erythrocyte distribution width (RBC) [Ratio] 12.3 % 11.6-14.6 [facility] Immature granulocytes/100 WBC (Bld) 0.300 % 0.0-0.9 [facility] Comment on above: IG% - Immature Granu locytes (promyelocytes, myelocytes and metamyelocytes) > 1% indicates that a LEFT SHIFT is Present. MCH (RBC) [Entitic mass] 30.0 pg 27.0-32.0 [facility] Nucleated RBC/100 WBC (Bld) [Ratio] 0.1 % 0-5 [facility] MCHC Auto (RBC) [Mass/Vol]Or dered By: Dr. March on 05-17-2022 MCHC (RBC) [Mass/Vol] 32.6 g/dL 32-36 [facility] No Panel InformationOrdered By: Dr. March on 05-17-2022 Estimated GFR (MDRD) Amer 39 mL/min >60 [facility] Comment on above: GFR Calc Estimated GFR (MDRD) Non-Af Amer 32 mL/min >60 [facility] Comment on above: Non- GFR Calc Thyroid Stimulating Hormone (TSH) 0.94 uIU/mL 0.358-3.74 [facility] Vitamin D 25-Hydroxy 37.9 ng/mL [facility] Comment on above: Vitamin D 25(OH) Sta tus Range Deficiency <20 ng/mL (50nmol/L) Insufficiency 20 - 30 ng/mL (50 - 75 nmol/L) Sufficiency 30 - 100 ng/mL (75 - 250 nmol/L) Toxicity >100 ng/mL (>250 nmol/L) Platelets bldOrdered By: Dr. March on 05-17-2022 Platelets (Bld) [#/Vol] 299 10*3/uL 150-450 [facility] Serum or plasma albumin bacilio urement (mass/volume)Ordered By: Dr. March on 05-17-2022 Albumin [Mass/Vol] 3.9 g/dL 3.2-5.0 [facility] Serum or plasma albumin/glob ulin mass ratioOrdered By: Dr. March on 05-17-2022 Albumin/Globulin [Mass ratio] 1.3 {ratio} 0.9-2.4 [facility] Serum or plasma calcium bacilio urement (mass/volume)Ordered By: Dr. March on 05-17-2022 Calcium [Mass/Vol] 10.4 mg/dL 8.5-10.1 [facility] Serum or plasma creatinine m easurement (mass/volume)Ordered By: Dr. March on 05-17-2022 Creatinine [Mass/Vol] 1.62 mg/dL 0.55-1.02 [facility] Comment on above: The validity of the calculated GFR & GFRAA in patients over 70 years has not been determined. Clinical correlation is essential. Serum or plasma urea nitroge n measurement (mass/volume)Ordered By: Dr. March on 05-17-2022 Urea nitrogen [Mass/Vol] 27 mg/dL 7-18 [facility] Thin prep Papanicolaou smear with manual screeningOrdered By: Dr. March on 05-17-2022 Thin prep Papanicolaou smear with manual screening 28 U/L 15-37 [facility] Thin prep Papanicolaou smear with manual screening 9 5-15 [facility] Aldolase ser/plasOrdered By: Sina Friend on 03-22-2022 Aldolase [Catalytic activity/Vol] 5.2 mU/mL 3.3-10.3 [facility] Comment on above: Performed at: [place] [id number] Director: Korey Chilel PhD, Phone: [phone] Basophil percentageOrdered B y: Sina Bloom on 03-22-2022 Bilirubin [Mass/Vol] 0.70 mg/dL 0.20-1.00 [facility] Comment on above: For patients on eltr ombopag therapy, use of Dimension [place] TBIL is not recommended. Chloride [Moles/Vol] 109 mmol/L 98-107 [facility] Glucose [Mass/Vol] 107 mg/dL 74-106 [facility] Comment on above: Fasting Glucose resu lt from 100 to 125 mg/dL suggests IMPAIRED HOMEOSTASIS per A.D.A. criteria. Potassium [Moles/Vol] 3.6 mmol/L 3.5-5.1 [facility] Protein [Mass/Vol] 7.0 g/dL 6.4-8.2 [facility] Sodium [Moles/Vol] 142 mmol/L 136-145 [facility] Foote's yeast IgE serumOrde red By: Sina Friend on 03-22-2022 Foote's yeast IgE Qn (S) <0.10 kU/L Class 0 [facility] Chocolate RASTOrdered By: Ra moon Friend on 03-22-2022 Chocolate IgE Qn (S) <0.10 kU/L Class 0 [facility] Chocolate IgE Qn (S) <0.10 [facility] Erythrocyte sedimentation ra teOrdered By: Sina Bloom on 03-22-2022 ESR (Bld) [Velocity] mm/h 0-30 [facility] Laboratory - Chemistry and C hemistry - challengeOrdered By: Sina Bloom on 03-22-2022 ALP [Catalytic activity/Vol] 72 U/L 45-117 [facility] ALT [Catalytic activity/Vol] 21 U/L 13-56 [facility] CK [Catalytic activity/Vol] 72 U/L 26-192 [facility] CO2 [Moles/Vol] 28.0 mmol/L 21.0-32.0 [facility] Globulin (S) [Mass/Vol] 3.1 g/dL 2.2-4.2 [facility] Urea nitrogen/Creatinine [Mass ratio] 19.1 mg/mg 10-20 [facility] Laboratory - Miscellaneous t estsOrdered By: Sina Bloom on 03-22-2022 Service comment (Unsp spec) [Interp] Comment . [facility] Comment on above: Levels of Specific [...] Allergen IgE Antibody <0.10 kU/L Class 0 [facility] Estimated GFR (MDRD) Amer 61 mL/min >60 [facility] Comment on above: GFR Calc Estimated GFR (MDRD) Non-Af Amer 50 mL/min >60 [facility] Comment on above: Non- GFR Calc [place] Allergen IgE Antibody <0.10 kU/L Class 0 [facility] Seafood [employer] Allergens (RAST) Negative . [facility] Comment on above: Allergens in this mi x are: Blue mussel Fish [facility] Shrimp Tuna Shrimp Allergen <0.10 kU/L Class 0 [facility] Serum Ustilago avenae IgE an tibody assay (units/volume)Ordered By: Sina Bloom on 03-22-2022 Oat smut IgE Qn (S) <0.10 kU/L Class 0 [facility] Serum almond IgE antibody as say (units/volume)Ordered By: Sina Bloom on 03-22-2022 [place] IgE Qn (S) <0.10 kU/L Class 0 [facility] Serum apple IgE antibody ass ay (units/volume)Ordered By: Sina Bloom on 03-22-2022 Apple IgE Qn (S) <0.10 kU/L Class 0 [facility] Comment on above: Performed at: [address] [id number] Director: Fuad De Anda MD, Phone: [phone] Serum banana IgE antibody as say (units/volume)Ordered By: Sina Bloom on 03-22-2022 Banana IgE Qn (S) <0.10 kU/L Class 0 [facility] Serum beef IgE antibody assa y (units/volume)Ordered By: Sina Bloom on 03-22-2022 Beef IgE Qn (S) <0.10 kU/L Class 0 [facility] Beef IgE Qn (S) <0.10 [facility] Serum black walnut IgE antib leonidas assay (units/volume)Ordered By: Sina Bloom on 03-22-2022 Black [place] IgE Qn (S) <0.10 kU/L Class 0 [facility] Serum carrot IgE antibody as say (units/volume)Ordered By: Sina Bloom on 03-22-2022 Carrot IgE Qn (S) <0.10 kU/L Class 0 [facility] Serum casein IgE antibody as say (units/volume)Ordered By: Sina Bloom on 03-22-2022 Casein IgE Qn (S) <0.10 kU/L Class 0 [facility] Serum cashew nut IgE antibod y assay (units/volume)Ordered By: Sina Bloom on 03-22-2022 Cashew nut IgE Qn (S) <0.10 kU/L Class 0 [facility] Serum celery IgE antibody as say (units/volume)Ordered By: Sina Bloom on 03-22-2022 Celery IgE Qn (S) <0.10 kU/L Class 0 [facility] Serum cheese cheddar type Ig E antibody assay (units/volume)Ordered By: Sina Bloom on 03-22-2022 Cheese cheddar type IgE Qn (S) <0.10 kU/L Class 0 [facility] Serum chicken IgE antibody a ssay (units/volume)Ordered By: Sina Bloom on 03-22-2022 Chicken IgE Qn (S) <0.10 kU/L Class 0 [facility] Serum clam IgE antibody assa y (units/volume)Ordered By: Sina Bloom on 03-22-2022 Clam IgE Qn (S) <0.10 kU/L Class 0 [facility] Serum codfish IgE antibody a ssay (units/volume)Ordered By: Sina Bloom on 03-22-2022 Codfish IgE Qn (S) <0.10 kU/L Class 0 [facility] Serum corn IgE antibody assa y (units/volume)Ordered By: Sina Bloom on 03-22-2022 [place] IgE Qn (S) <0.10 kU/L Class 0 [facility] [place] IgE Qn (S) <0.10 [facility] Serum cow milk IgE antibody assay (units/volume)Ordered By: Sina Bloom on 03-22-2022 Cow milk IgE Qn (S) <0.10 kU/L Class 0 [facility] Cow milk IgE Qn (S) <0.10 [facility] Serum crab IgE antibody assa y (units/volume)Ordered By: Sina Bloom on 03-22-2022 Crab IgE Qn (S) <0.10 kU/L Class 0 [facility] Serum egg white IgE antibody assay (units/volume)Ordered By: Sina Bloom on 03-22-2022 Egg white IgE Qn (S) <0.10 kU/L Class 0 [facility] Serum egg yolk IgE antibody assay (units/volume)Ordered By: Sina Bloom on 03-22-2022 Egg yolk IgE Qn (S) <0.10 kU/L Class 0 [facility] Serum garlic IgE antibody as say (units/volume)Ordered By: Sina Bloom on 03-22-2022 Garlic IgE Qn (S) <0.10 kU/L Class 0 [facility] Serum gluten IgE antibody as say (units/volume)Ordered By: Sina Bloom on 03-22-2022 Gluten IgE Qn (S) <0.10 kU/L Class 0 [facility] Serum lactalbumin alpha IgE antibody assay (units/volume)Ordered By: Sina Bloom on 03-22-2022 Lactalbumin alpha IgE Qn (S) <0.10 kU/L Class 0 [facility] Serum lettuce IgE antibody a ssay (units/volume)Ordered By: Sina Bloom on 03-22-2022 Lettuce IgE Qn (S) <0.10 kU/L Class 0 [facility] Serum lobster IgE antibody a ssay (units/volume)Ordered By: Sina Bloom on 03-22-2022 Lobster IgE Qn (S) <0.10 kU/L Class 0 [facility] Serum onion IgE antibody ass ay (units/volume)Ordered By: Sina Bloom on 03-22-2022 Onion IgE Qn (S) <0.10 kU/L Class 0 [facility] Serum or plasma C reactive p rotein measurement (mass/volume)Ordered By: Sina Bloom on 03-22-2022 CRP [Mass/Vol] mg/L 0.0-3.0 [facility] Comment on above: C-Reactive Protein ( CRP) provides useful information for thediagnosis, therapy and monitoring of inflammatory processesand associated diseases. For the evaluation of Relative Riskfor Cardiovascular Disease, a High Sensitivity CRP (HSCRP)should be ordered. Serum or plasma albumin bacilio urement (mass/volume)Ordered By: Sina Bloom on 03-22-2022 Albumin [Mass/Vol] 3.9 g/dL 3.2-5.0 [facility] Serum or plasma albumin/glob ulin mass ratioOrdered By: Sina Bloom on 03-22-2022 Albumin/Globulin [Mass ratio] 1.3 {ratio} 0.9-2.4 [facility] Serum or plasma calcium bacilio urement (mass/volume)Ordered By: Sina Bloom on 03-22-2022 Calcium [Mass/Vol] 10.5 mg/dL 8.5-10.1 [facility] Serum or plasma creatinine m easurement (mass/volume)Ordered By: Sina Bloom on 03-22-2022 Creatinine [Mass/Vol] 1.10 mg/dL 0.55-1.02 [facility] Comment on above: The validity of the calculated GFR & GFRAA in patients over 70 years has not been determined. Clinical correlation is essential. Serum or plasma urea nitroge n measurement (mass/volume)Ordered By: Sina Bloom on 03-22-2022 Urea nitrogen [Mass/Vol] 21 mg/dL 7-18 [facility] Serum or plasma uric acid me asurement (mass/volume)Ordered By: Sina Bloom on 03-22-2022 Urate [Mass/Vol] 5.8 mg/dL 2.6-6.0 [facility] Comment on above: The drugs N-Acetylcy steine and Metamizole may falsely depress this assay. Serum orange IgE antibody as say (units/volume)Ordered By: Sina Bloom on 03-22-2022 [place] IgE Qn (S) <0.10 kU/L Class 0 [facility] Serum pea IgE antibody assay (units/volume)Ordered By: Sina Bloom on 03-22-2022 Pea IgE Qn (S) <0.10 kU/L Class 0 [facility] Serum peach IgE antibody ass ay (units/volume)Ordered By: Sina Bloom on 03-22-2022 [place] IgE Qn (S) <0.10 kU/L Class 0 [facility] Serum peanut IgE antibody as say (units/volume)Ordered By: Sina Bloom on 03-22-2022 Peanut IgE Qn (S) <0.10 kU/L Class 0 [facility] Comment on above: Levels of Specific I gE Class Description of Class ----- < 0.10 0 Negative 0.10 - 0.31 0/I Equivocal/Low 0.32 - 0.55 I Low 0.56 - 1.40 II Moderate 1.41 - 3.90 III High 3.91 - 19.00 IV Very High 19.01 - 100.00 V Very High >100.00 Very High Peanut IgE Qn (S) <0.10 [facility] Serum pecan or hickory nut I gE antibody assay (units/volume)Ordered By: Sina Bloom on 03-22-2022 Pecan or Rewey Nut IgE Qn (S) <0.10 kU/L Class 0 [facility] Serum pork IgE antibody assa y (units/volume)Ordered By: Sina Bloom on 03-22-2022 Pork IgE Qn (S) <0.10 kU/L Class 0 [facility] Pork IgE Qn (S) <0.10 [facility] Serum rice IgE antibody assa y (units/volume)Ordered By: Sina Bloom on 03-22-2022 [place] IgE Qn (S) <0.10 kU/L Class 0 [facility] Serum rye IgE antibody assay (units/volume)Ordered By: Sina Bloom on 03-22-2022 [place] IgE Qn (S) <0.10 kU/L Class 0 [facility] Serum salmon IgE antibody as say (units/volume)Ordered By: Sina Bloom on 03-22-2022 [place] IgE Qn (S) <0.10 kU/L Class 0 [facility] Serum soybean IgE antibody a ssay (units/volume)Ordered By: Sina Bloom on 03-22-2022 Soybean IgE Qn (S) <0.10 kU/L Class 0 oste [facility] Soybean IgE Qn (S) <0.10 oste r [facility] Serum strawberry IgE antibod y assay (units/volume)Ordered By: Sina Bloom on 03-22-2022 [place] IgE Qn (S) <0.10 kU/L Class 0 [facility] Serum tomato IgE antibody as say (units/volume)Ordered By: Sina Bloom on 03-22-2022 Tomato IgE Qn (S) <0.10 kU/L Class 0 [facility] Serum tuna IgE antibody assa y (units/volume)Ordered By: Sina Bloom on 03-22-2022 Tuna IgE Qn (S) <0.10 kU/L Class 0 [facility] Serum turkey meat IgE antibo dy assay (units/volume)Ordered By: Sina Bloom on 03-22-2022 [place] meat IgE Qn (S) <0.10 kU/L Class 0 [facility] Comment on above: Performed at: [address] [id number] Director: Fuad De Anda MD, Phone: [phone] Serum wheat IgE antibody ass ay (units/volume)Ordered By: Sina Bloom on 03-22-2022 Wheat IgE Qn (S) <0.10 kU/L Class 0 [facility] Wheat IgE Qn (S) <0.10 [facility] Serum white potato specific IgE antibody assayOrdered By: Sina Bloom on 03-22-2022 Potato IgE Qn (S) <0.10 kU/L Class 0 [facility] Serum whole egg IgE antibody assay (units/volume)Ordered By: Sina Bloom on 03-22-2022 Whole Egg IgE Qn (S) <0.10 kU/L Class 0 [facility] Thin prep Papanicolaou smear with manual screeningOrdered By: Sina Bloom on 03-22-2022 Thin prep Papanicolaou smear with manual screening 25 U/L 15-37 [facility] Thin prep Papanicolaou smear with manual screening 5 5-15 [facility] Thin prep Papanicolaou smear with manual screening <0.10 [facility] Absolute lymphocyte counton 11-09-2021 Lymphocytes Auto (Unsp spec) [#/Vol] 3.57 10*3/uL 0.83-4.51 [facility] Work Phone: Basophil percentageon 2021 Basophils/100 WBC (Bld) 0.6 % 0-1 [facility] Work Phone: Bilirubin [Mass/Vol] 0.90 mg/dL 0.20-1.00 [facility] Work Phone: Comment on above: For patients on eltr ombopag therapy, use of Dimension [place] TBIL is not recommended. Chloride [Moles/Vol] 106 mmol/L 98-107 [facility] Work Phone: Eosinophils/100 WBC (Bld) 1.6 % 0-5 [facility] Work Phone: Glucose [Mass/Vol] 117 mg/dL 74-106 [facility] Work Phone: [phone] Comment on above: Fasting Glucose resu lt from 100 to 125 mg/dL suggests IMPAIRED HOMEOSTASIS per A.D.A. criteria. Neutrophils (Bld) [#/Vol] 5.9 10*3/uL 2.0-7.7 [facility] Work Phone: Neutrophils/100 WBC (Bld) 56.3 % 47-70 [facility] Work Phone: Potassium [Moles/Vol] 4.4 mmol/L 3.5-5.1 [facility] Work Phone: Protein [Mass/Vol] 7.2 g/dL 6.4-8.2 [facility] Work Phone: Sodium [Moles/Vol] 140 mmol/L 136-145 [facility] Work Phone: WBC (Bld) [#/Vol] 10.5 10*3/uL 4.4-11.0 [facility] Work Phone: Blood erythrocytes count (nu mber/volume)on 11-09-2021 RBC (Bld) [#/Vol] 4.80 10*6/uL 4.2-5.4 [facility] Work Phone: Blood hemoglobin measurement (mass/volume)on 11-09-2021 Hemoglobin (Bld) [Mass/Vol] 15.0 g/dL 12.0-15.0 [facility] Work Phone: Blood lymphocytes/100 leukoc yteson 11-09-2021 Lymphocytes/100 WBC (Bld) 33.9 % 19-41 [facility] Work Phone: Blood monocytes/100 leukocyt eson 11-09-2021 Monocytes/100 WBC (Bld) 7.3 % 0-10 [facility] Work Phone: Blood platelet mean volumeon 11-09-2021 Platelet mean volume (Bld) [Entitic vol] 10.3 fL 6.2-12.0 [facility] Work Phone: Determination of erythrocyte mean corpuscular volume (MCV)on 11-09-2021 MCV (RBC) [Entitic vol] 91.5 fL 81-99 [facility] Work Phone: Hematocrit Auto (Bld) [Volum e fraction]on 11-09-2021 Hematocrit (Bld) [Volume fraction] 43.9 % 37-47 [facility] Work Phone: Laboratory - Chemistry and C hemistry - challengeon 11-09-2021 ALP [Catalytic activity/Vol] 71 U/L 45-117 [facility] Work Phone: ALT [Catalytic activity/Vol] 27 U/L 13-56 [facility] Work Phone: CO2 [Moles/Vol] 27.0 mmol/L 21.0-32.0 [facility] Work Phone: Globulin (S) [Mass/Vol] 3.3 g/dL 2.2-4.2 [facility] Work Phone: Urea nitrogen/Creatinine [Mass ratio] 21.3 mg/mg 10-20 [facility] Work Phone: Laboratory - Hematology and Cell countson 11-09-2021 Erythrocyte distribution width (RBC) [Entitic vol] 40.3 fL 35.1-43.9 [facility] Work Phone: Erythrocyte distribution width (RBC) [Ratio] 12.0 % 11.6-14.6 [facility] Work Phone: Immature granulocytes/100 WBC (Bld) 0.300 % 0.0-0.9 [facility] Work Phone: Comment on above: IG% - Immature Granu locytes (promyelocytes, myelocytes and metamyelocytes) > 1% indicates that a LEFT SHIFT is Present. MCH (RBC) [Entitic mass] 31.3 pg 27.0-32.0 [facility] Work Phone: Nucleated RBC/100 WBC (Bld) [Ratio] 0 % 0-5 [facility] Work Phone: MCHC Auto (RBC) [Mass/Vol]on 11-09-2021 MCHC (RBC) [Mass/Vol] 34.2 g/dL 32-36 [facility] Work Phone: No Panel Informationon 11-09 Estimated GFR (MDRD) Amer 54 mL/min >60 [facility] Work Phone: Comment on above: GFR Calc Estimated GFR (MDRD) Non-Af Amer 45 mL/min >60 [facility] Work Phone: Comment on above: Non- GFR Calc Thyroid Stimulating Hormone (TSH) 0.96 uIU/mL 0.358-3.74 [facility] Work Phone: Vitamin D 25-Hydroxy 26.6 ng/mL [facility] Work Phone: Comment on above: Vitamin D 25(OH) Sta tus Range Deficiency <20 ng/mL (50nmol/L) Insufficiency 20 - 30 ng/mL (50 - 75 nmol/L) Sufficiency 30 - 100 ng/mL (75 - 250 nmol/L) Toxicity >100 ng/mL (>250 nmol/L) Platelets bldon 11-09-2021 Platelets (Bld) [#/Vol] 312 10*3/uL 150-450 [facility] Work Phone: Serum or plasma albumin bacilio urement (mass/volume)on 11-09-2021 Albumin [Mass/Vol] 3.9 g/dL 3.2-5.0 [facility] Work Phone: Serum or plasma albumin/glob ulin mass ratioon 11-09-2021 Albumin/Globulin [Mass ratio] 1.2 {ratio} 0.9-2.4 [facility] Work Phone: Serum or plasma calcium bacilio urement (mass/volume)on 11-09-2021 Calcium [Mass/Vol] 10.4 mg/dL 8.5-10.1 [facility] Work Phone: Serum or plasma creatinine m easurement (mass/volume)on 11-09-2021 Creatinine [Mass/Vol] 1.22 mg/dL 0.55-1.02 [facility] Work Phone: Comment on above: The validity of the calculated GFR & GFRAA in patients over 70 years has not been determined. Clinical correlation is essential. Serum or plasma urea nitroge n measurement (mass/volume)on 11-09-2021 Urea nitrogen [Mass/Vol] 26 mg/dL 7-18 [facility] Work Phone: Serum or plasma uric acid me asurement (mass/volume)on 11-09-2021 Urate [Mass/Vol] 7.7 mg/dL 2.6-6.0 [facility] Work Phone: Comment on above: The drugs N-Acetylcy steine and Metamizole may falsely depress this assay. Thin prep Papanicolaou smear with manual screeningon 11-09-2021 Thin prep Papanicolaou smear with manual screening 25 U/L 15-37 [facility] Work Phone: Thin prep Papanicolaou smear with manual screening 7 5-15 [facility] Work Phone: No Panel Informationon 07-22 Influenza Types A,B Direct FA (CLARK) [facility] Work Phone: Absolute lymphocyte counton 05-11-2021 Lymphocytes Auto (Unsp spec) [#/Vol] 3.47 10*3/uL 0.83-4.51 [facility] Work Phone: Basophil percentageon 2021 Basophils/100 WBC (Bld) 0.6 % 0-1 [facility] Work Phone: Bilirubin [Mass/Vol] 0.70 mg/dL 0.20-1.00 [facility] Work Phone: Comment on above: For patients on eltr ombopag therapy, use of Dimension [place] TBIL is not recommended. Chloride [Moles/Vol] 108 mmol/L 98-107 [facility] Work Phone: Eosinophils/100 WBC (Bld) 2.3 % 0-5 [facility] Work Phone: Glucose [Mass/Vol] 165 mg/dL 74-106 [facility] Work Phone: Comment on above: Fasting Glucose resu lt greater than or equal to 126 mg/dL suggests DIABETES MELLITUS per A.D.A. criteria. Neutrophils (Bld) [#/Vol] 5.1 10*3/uL 2.0-7.7 [facility] Work Phone: Neutrophils/100 WBC (Bld) 52.9 % 47-70 [facility] Work Phone: Potassium [Moles/Vol] 3.5 mmol/L 3.5-5.1 [facility] Work Phone: Protein [Mass/Vol] 6.9 g/dL 6.4-8.2 [facility] Work Phone: [phone] Sodium [Moles/Vol] 141 mmol/L 136-145 [facility] Work Phone: [phone] WBC (Bld) [#/Vol] 9.6 10*3/uL 4.4-11.0 [facility] Work Phone: [phone] Blood erythrocytes count (nu mber/volume)on 05-11-2021 RBC (Bld) [#/Vol] 4.67 10*6/uL 4.2-5.4 [facility] Work Phone: Blood hemoglobin measurement (mass/volume)on 05-11-2021 Hemoglobin (Bld) [Mass/Vol] 14.3 g/dL 12.0-15.0 [facility] Work Phone: Blood lymphocytes/100 leukoc yteson 05-11-2021 Lymphocytes/100 WBC (Bld) 36.3 % 19-41 [facility] Work Phone: Blood monocytes/100 leukocyt eson 05-11-2021 Monocytes/100 WBC (Bld) 7.7 % 0-10 [facility] Work Phone: Blood platelet mean volumeon 05-11-2021 Platelet mean volume (Bld) [Entitic vol] 10.3 fL 6.2-12.0 [facility] Work Phone: Determination of erythrocyte mean corpuscular volume (MCV)on 05-11-2021 MCV (RBC) [Entitic vol] 90.1 fL 81-99 [facility] Work Phone: Hematocrit Auto (Bld) [Volum e fraction]on 05-11-2021 Hematocrit (Bld) [Volume fraction] 42.1 % 37-47 [facility] Work Phone: Laboratory - Chemistry and C hemistry - challengeon 05-11-2021 ALP [Catalytic activity/Vol] 71 U/L 45-117 [facility] Work Phone: ALT [Catalytic activity/Vol] 27 U/L 13-56 [facility] Work Phone: CO2 [Moles/Vol] 27.0 mmol/L 21.0-32.0 [facility] Work Phone: Globulin (S) [Mass/Vol] 3.3 g/dL 2.2-4.2 [facility] Work Phone: Urea nitrogen/Creatinine [Mass ratio] 16.7 mg/mg 10-20 [facility] Work Phone: Laboratory - Hematology and Cell countson 05-11-2021 Erythrocyte distribution width (RBC) [Entitic vol] 39.5 fL 35.1-43.9 [facility] Work Phone: Erythrocyte distribution width (RBC) [Ratio] 12.2 % 11.6-14.6 [facility] Work Phone: Immature granulocytes/100 WBC (Bld) 0.200 % 0.0-0.9 [facility] Work Phone: Comment on above: IG% - Immature Granu locytes (promyelocytes, myelocytes and metamyelocytes) > 1% indicates that a LEFT SHIFT is Present. MCH (RBC) [Entitic mass] 30.6 pg 27.0-32.0 [facility] Work Phone: Nucleated RBC/100 WBC (Bld) [Ratio] 0 % 0-5 [facility] Work Phone: MCHC Auto (RBC) [Mass/Vol]on 05-11-2021 MCHC (RBC) [Mass/Vol] 34.0 g/dL 32-36 [facility] Work Phone: No Panel Informationon 05-11 Estimated GFR (MDRD) Amer 55 mL/min >60 [facility] Work Phone: Comment on above: GFR Calc Estimated GFR (MDRD) Non-Af Amer 46 mL/min >60 [facility] Work Phone: Comment on above: Non- GFR Calc Thyroid Stimulating Hormone (TSH) 0.88 uIU/mL 0.358-3.74 [facility] Work Phone: Vitamin D 25-Hydroxy 29.0 ng/mL [facility] Work Phone: Comment on above: Vitamin D 25(OH) Sta tus Range Deficiency <20 ng/mL (50nmol/L) Insufficiency 20 - 30 ng/mL (50 - 75 nmol/L) Sufficiency 30 - 100 ng/mL (75 - 250 nmol/L) Toxicity >100 ng/mL (>250 nmol/L) Platelets bldon 05-11-2021 Platelets (Bld) [#/Vol] 315 10*3/uL 150-450 [facility] Work Phone: Serum or plasma albumin bacilio urement (mass/volume)on 05-11-2021 Albumin [Mass/Vol] 3.6 g/dL 3.2-5.0 [facility] Work Phone: Serum or plasma albumin/glob ulin mass ratioon 05-11-2021 Albumin/Globulin [Mass ratio] 1.1 {ratio} 0.9-2.4 [facility] Work Phone: Serum or plasma calcium bacilio urement (mass/volume)on 05-11-2021 Calcium [Mass/Vol] 9.7 mg/dL 8.5-10.1 [facility] Work Phone: Serum or plasma creatinine m easurement (mass/volume)on 05-11-2021 Creatinine [Mass/Vol] 1.20 mg/dL 0.55-1.02 [facility] Work Phone: Comment on above: The validity of the calculated GFR & GFRAA in patients over 70 years has not been determined. Clinical correlation is essential. Serum or plasma urea nitroge n measurement (mass/volume)on 05-11-2021 Urea nitrogen [Mass/Vol] 20 mg/dL 7-18 [facility] Work Phone: Serum or plasma uric acid me asurement (mass/volume)on 05-11-2021 Urate [Mass/Vol] 6.1 mg/dL 2.6-6.0 [facility] Work Phone: Comment on above: The drugs N-Acetylcy steine and Metamizole may falsely depress this assay. Thin prep Papanicolaou smear with manual screeningon 05-11-2021 Thin prep Papanicolaou smear with manual screening 20 U/L 15-37 [facility] Work Phone: Thin prep Papanicolaou smear with manual screening 6 5-15 [facility] Work Phone: Giardia lamblia ag stool EIA on 05-06-2021 G. lamblia Ag IA Ql (Stl) Negative Negative [facility] Work Phone: Comment on above: Performed at: [facility] [id number] Director: Korey Chilel PhD, Phone: [phone] No Panel Informationon 05-06 Miscellaneous Test See comment [facility] Work Phone: Comment on above: TEST RESULT LIMITSPa ncreatic Elastase,Fecal 150 Low ug/Elast./g >200 Severe Pancreatic Insufficiency: <100 Moderate Pancreatic Insufficiency: 100-200 Normal: >200 TESTING PERFORMED AT [facility]. ORIGINAL REPORT ON FILE IN LAB CONTAINS ADDITIONAL TEST SITE INFORMATION. Stool Calprotectin 30 ug/g [facility] Work Phone: Comment on above: Concentration Interp retation Follow-Up<16 - 50 ug/g Normal None>50 -120 ug/g Borderline Re-evaluate in 4-6 weeks >120 ug/g Abnormal Repeat as clinically indicatedPerformed at: [address] [id number] Director: Fuad De Anda MD, Phone: [phone] Atypical perinuclear antineu trophil cytoplasmic antibodies measurementon 05-02-2021 Neutrophil cytoplasmic Ab.perinuclear.atypical IF (S) [Titer] <1:20 titer Neg:<1:20 [facility] Work Phone: Comment on above: The atypical pANCA p attern has been observed in asignificant percentage of patients with ulcerative colitis,primary sclerosing cholangitis and autoimmune hepatitis. Basophil percentageon 2021 Basophil percentage < 0.2 AI [facility] Work Phone: Erythrocyte sedimentation ra henri 05-02-2021 ESR (Bld) [Velocity] 3 mm/h 0-30 [facility] Work Phone: No Panel Informationon 05-02 CA 19-9 Antigen Serial Monitoring See comment [facility] Work Phone: Comment on above: Scanned image report available in EMR [employer] B Antibody <0.2 AI [facility] Work Phone: Endomysial IgA Antibody Negative Negative [facility] Work Phone: Immunoglobulin E 4 IU/mL [facility] Work Phone: [employer] Antibody <0.2 [facility] Work Phone: Serum DNA double strand anti body assay (units/volume)on 05-02-2021 DNA double strand Ab Qn (S) 6 [IU]/mL [facility] Work Phone: Comment on above: Negative <5 Equivoca l 5 - 9 Positive >9 Serum Danika-1 antibody assay (u nits/volume)on 05-02-2021 Danika-1 extractable nuclear Ab Qn (S) <0.2 [facility] Work Phone: Serum Scl-70 extractable nuc lear antibody assay (units/volume)on 05-02-2021 SCL-70 extractable nuclear Ab Qn (S) 0.2 [facility] Work Phone: Serum Lei extractable nucl ear antibody detectionon 05-02-2021 Lei extractable nuclear Ab Ql (S) <0.2 [facility] Work Phone: Serum classic neutrophil cyt oplasmic antibody assay (units/volume)on 05-02-2021 Neutrophil cytoplasmic Ab.classic Qn (S) <1:20 titer Neg:<1:20 [facility] Work Phone: Serum or plasma C reactive p rotein measurement (mass/volume)on 05-02-2021 CRP [Mass/Vol] mg/L 0.0-3.0 [facility] Work Phone: Comment on above: C-Reactive Protein ( CRP) provides useful information for thediagnosis, therapy and monitoring of inflammatory processesand associated diseases. For the evaluation of Relative Riskfor Cardiovascular Disease, a High Sensitivity CRP (HSCRP)should be ordered. Serum or plasma IgA measurem ent (mass/volume)on 05-02-2021 IgA [Mass/Vol] 109 mg/dL [facility] Work Phone: Serum or plasma IgG measurem ent (mass/volume)on 05-02-2021 IgG [Mass/Vol] 634 mg/dL [facility] Work Phone: Serum or plasma IgM measurem ent (mass/volume)on 05-02-2021 IgM [Mass/Vol] 35 mg/dL [facility] Work Phone: Comment on above: Performed at: [facility] [employer] [address] [id number] Director: Korey Chilel PhD, Phone: [phone] at: [facility] [id number] Director: Fuad De Anda MD, Phone: [phone] Serum perinuclear neutrophil cytoplasmic antibody titer by immunofluorescenceon 05-02-2021 Neutrophil cytoplasmic Ab.perinuclear IF (S) [Titer] <1:20 titer Neg:<1:20 [facility] Work Phone: Comment on above: The presence of posi tive fluorescence exhibiting P-ANCA orC-ANCA patterns alone is not specific for the diagnosis ofWegener's Granulomatosis (WG) or microscopic polyangiitis.Decisions about treatment should not be based solely onANCA IFA results. The [employer] ANCA Group Consensusrecommends follow up testing of positive sera with both NC-3 and MPO-ANCA enzyme immunoassays. As many as 5% serumsamples are positive only by EIA. Ref. AM J Clin [id number];111:507-513. Serum tissue transglutaminas e IgA antibody assay (units/volume)on 05-02-2021 tTG IgA Qn (S) <2 U/mL [facility] Work Phone: Comment on above: Negative 0 - 3 Weak Positive 4 - 10 Positive >10 Tissue Transglutaminase (tTG) has been identified as the endomysial antigen. Studies have demonstr- ated that endomysial IgA antibodies have over 99% specificity for gluten sensitive enteropathy. Microbiology: Culture, Wound on 12-02-2016 [facility] Wound CultureNo grow th aerobically. Invalid Interpretation Code [facility] Work Phone: Microbiology: (P) Culture, W oundon 11-30-2016 [facility] Wound CultureNo growth-Final to follow Invalid Interpretation Code [facility] Work Phone: Office Visit: UC: L arm cell ulitison 11-29-2016 Fall risk assessment No Invalid Interpretation Code [facility] Work Phone: Protein mass conc Done Invalid Interpretation Code [facility] Work Phone: Tobacco smoking status NHIS Never smoker Invalid Interpretation Code [facility] Work Phone: No Panel Information Influenza Types A,B Direct FA (CLARK) [facility] Work Phone: Vital Signs Date Time Vital Sign Value Performing Clinician Faci lity 02-25-2024 10:57-0500 Body height 156.[address] Brandon March MD Work Phone: [facility] 02-25-2024 10:57-0500 Body mass index (BMI) [Ratio] 29.7 kg/m2 Dr. Brandon March MD Work Phone: [facility] 02-25-2024 10:57-0500 Body weight 72.[address] Brandon March MD Work Phone: [facility] 02-25-2024 10:57-0500 Diastolic blood pressure 97 mm[Hg] Dr. Brandon March MD Work Phone: [facility] 02-25-2024 10:57-0500 Heart rate 96 /min Dr. Brandon March MD Work Phone: [facility] 02-25-2024 10:57-0500 Respiratory rate 18 /min Dr. Brandon March MD Work Phone: [facility] 02-25-2024 10:57-0500 SaO2% (BldA) [Mass fraction] 95 % Dr. Brandon March MD Work Phone: [facility] 02-25-2024 10:57-0500 Systolic blood pressure 163 mm[Hg] Dr. Brandon March MD Work Phone: [phone])897-41[address] [place] [address] 01-23-2024 15:00-0500 Body temperature 98.5 [degF] Dr. Brandon March MD Work Phone: 1(613)455-253518 [place] [address] 01-23-2024 15:00-0500 Diastolic blood pressure 80 mm[Hg] Dr. Brandon March MD Work Phone: 1(021)223-973618 [place] [address] 01-23-2024 15:00-0500 Heart rate 71 /min Dr. Brandon March MD Work Phone: 1(771)[phone] [place] [address] 01-23-2024 15:00-0500 Respiratory rate 18 /min Dr. Branodn March MD Work Phone: [phone])031-645518 [place] [address] 01-23-2024 15:00-0500 SaO2% (BldA) [Mass fraction] 94 % Dr. Brandon March MD Work Phone: 2(708)851-323018 [place] [address] 01-23-2024 15:00-0500 Systolic blood pressure 144 mm[Hg] Dr. Brandon March MD Work Phone: [facility] 01-23-2024 05:52-0500 Body mass index (BMI) [Ratio] 30.8 kg/m2 Dr. Brandon March MD Work Phone: [facility] 01-23-2024 05:52-0500 Body weight 75.[address] Brandon March MD Work Phone: 2([phone])177-533818 [place] [address] 07-20-2022 10:59-0400 Body height 157.[address] Branodn March Work Phone: 5(160)689-895018 [place] [address] 07-20-2022 10:59-0400 Body mass index (BMI) [Ratio] 28.9 kg/m2 Dr. Brandon March Work Phone: [facility] 07-20-2022 10:59-0400 Body weight 71.[address] Brandon March Work Phone: [facility] 07-20-2022 10:59-0400 Diastolic blood pressure 85 mm[Hg] Dr. Brandon March Work Phone: 7(655)689-426118 [place] [address] 07-20-2022 10:59-0400 Heart rate 78 /min Dr. Brandon March Work Phone: 2(056)235-530018 [place] [address] 07-20-2022 10:59-0400 Respiratory rate 16 /min Dr. Brandon March Work Phone: [facility] 07-20-2022 10:59-0400 Systolic blood pressure 162 mm[Hg] Dr. Brandon March Work Phone: 0(287)299-065818 [place] [address] 04-13-2022 11:07-0500 Diastolic blood pressure 94 mm[Hg] Dr. Brandon March Work Phone: 9(680)149-810118 [place] [address] 04-13-2022 11:07-0500 Systolic blood pressure 164 mm[Hg] Dr. Brandon March Work Phone: 8(693)796-437318 [place] [address] 04-13-2022 11:03-0500 Body height 157.[address] Brandon March Work Phone: 9(329)631-699718 [place] [address] 04-13-2022 11:03-0500 Body mass index (BMI) [Ratio] 28.9 kg/m2 Dr. Bradnon March Work Phone: [facility] 04-13-2022 11:03-0500 Body weight 71.[address] Brandon March Work Phone: 6(966)088-545818 [place] [address] 04-13-2022 11:03-0500 Heart rate 90 /min Dr. Brandon March Work Phone: [facility] 04-13-2022 11:03-0500 Respiratory rate 16 /min Dr. Brandon March Work Phone: [facility] 03-02-2023 11:03-0500 SaO2% (BldA) [Mass fraction] 95 % Dr. Brandon March Work Phone: [facility] 01-11-2022 14:34-0500 Body height 157.[address] Brandon March Work Phone: [facility] 01-11-2022 14:34-0500 Body mass index (BMI) [Ratio] 30.3 kg/m2 Dr. Brandon March Work Phone: [facility] 01-11-2022 14:34-0500 Body weight 75.[address] Brandon March Work Phone: [facility] 01-11-2022 14:34-0500 Diastolic blood pressure 83 mm[Hg] Dr. Brandon March Work Phone: [facility] 01-11-2022 14:34-0500 Heart rate 77 /min Dr. Brandon March Work Phone: [facility] 01-11-2022 14:34-0500 Respiratory rate 16 /min Dr. Brandon March Work Phone: [facility] 01-11-2022 14:34-0500 Systolic blood pressure 131 mm[Hg] Dr. Brandon Mrach Work Phone: [facility] 08-10-2021 14:02-0400 Body height 157.[address] Brandon March Work Phone: [facility] Work Phone: 08-10-2021 14:02-0400 Body mass index (BMI) [Ratio] 24.1 kg/m2 Dr. Brandon March Work Phone: [facility] Work Phone: 08-10-2021 14:02-0400 Body weight 59.[address] Brandon March Work Phone: [facility] Work Phone: 08-10-2021 14:02-0400 Diastolic blood pressure 79 mm[Hg] Dr. Brandon March Work Phone: [facility] Work Phone: 08-10-2021 14:02-0400 Heart rate 75 /min Dr. Brandon March Work Phone: [facility] Work Phone: 08-10-2021 14:02-0400 SaO2% (BldA) [Mass fraction] 92 % Dr. Brandon March Work Phone: [facility] Work Phone: 08-10-2021 14:02-0400 Systolic blood pressure 143 mm[Hg] Dr. Brandon March Work Phone: [facility] Work Phone: 07-26-2021 13:27-0400 Body temperature 98.1 [degF] Dr. Brandon March Work Phone: [facility] Work Phone: 07-26-2021 13:27-0400 Diastolic blood pressure 72 mm[Hg] Dr. Brandon March Work Phone: [facility] Work Phone: 07-26-2021 13:27-0400 Heart rate 59 /min Dr. Brandon March Work Phone: [facility] Work Phone: 07-26-2021 13:27-0400 Respiratory rate 16 /min Dr. Brandon March Work Phone: [facility] Work Phone: 07-26-2021 13:27-0400 SaO2% (BldA) [Mass fraction] 96 % Dr. Brandon March Work Phone: [facility] Work Phone: 07-26-2021 13:27-0400 Systolic blood pressure 164 mm[Hg] Dr. Brandon March Work Phone: [facility] Work Phone: 07-26-2021 11:52-0400 Body height 157.[address] Brandon March Work Phone: [facility] Work Phone: 07-26-2021 11:52-0400 Body mass index (BMI) [Ratio] 29.6 kg/m2 Dr. Brandon March Work Phone: [facility] Work Phone: 07-26-2021 11:52-0400 Body weight 73.[address] Brandon March Work Phone: [facility] Work Phone: 11-29-2016 14:27-0400 BMI (Body [...] Start: 06-09-2024 End: 06-09-2024 ambulatory Brandon March Facility:[facility] Start: 06-03-2024 End: 06-03-2024 ambulatory Luan Paul Facility:[facility] Start: 06-03-2024 End: 06-03-2024 ambulatory Brandon [facility] Facility:[facility] Start: 04-23-2024 End: 04-23-[address] Brandon March MD Work Phone: [facility] Work Phone: Start: 04-23-2024 End: 04-23-[address] Brandon March MD -Nuclear Medicine, [facility] Work Phone: Start: 04-23-2024 End: 04-23-2024 ambulatory [facility] Facility:[facility] Start: 03-27-2024 End: 03-27-[address] Brandon March MD -Ultrasound, [facility] Work Phone: Start: 03-27-2024 End: 03-27-2024 ambulatory [facility] Facility:[facility] Start: 03-14-2024 End: 03-14-2024 ambulatory Cal Billings Facility:[facility] Start: 03-14-2024 End: 03-14-[address] Brandon March MD -Physical Therapy Work Phone: Start: 03-12-2024 End: 03-12-[address] Brandon March MD -Cat Scan, [facility] Work Phone: Start: 03-12-2024 End: 03-12-2024 ambulatory [facility] Facility:[facility] Start: 02-27-2024 End: 02-27-[address] Denny Hargrove MD -Laboratory Work Phone: Start: 02-27-2024 End: 02-27-2024 ambulatory Denny Hargrove Facility:[facility] Start: 02-25-2024 End: 02-25-[address] Luan Guzman MD -[facility] Work Phone: Start: 02-25-2024 End: 02-25-2024 ambulatory Brandon Chi Joaquim Facility:[facility] Start: 01-23-2024 Non-patient / Non-visit Dr. Cal Billings MD [facility] Work Phone: Start: 01-22-2024 Non-patient / Non-visit Dr. Cal Billings MD -[facility] Work Phone: Start: 01-21-2024 Non-patient / Non-visit Dr. Cal Billings MD [facility] Work Phone: Start: 01-20-2024 Non-patient / Non-visit Dr. Macario Allen [facility] Work Phone: Start: 01-20-2024 Non-patient / Non-visit Dr. Luan Guzman MD [facility] Start: 01-19-2024 Non-patient / Non-visit Dr. Macario Allen [facility] Work Phone: Start: 01-19-2024 Non-patient / Non-visit Dr. Luan Guzman MD [facility] Start: 01-19-2024 ambulatory Brandon Chi [place] Facility:[facility] Start: 01-19-2024 Non-patient / Non-visit Dr. Se Ellis MD [facility] Start: 01-18-2024 ambulatory Kal Hansen ty:[facility] Start: 01-18-2024 End: 01-23-2024 Evaluation and management of inpatient Dr. Cal Billings MD -[facility] Work Phone: Start: 12-20-2023 End: 12-20-2023 ambulatory Brandon Chi [place] Facility:[facility] Start: 09-03-2023 End: 09-03-2023 ambulatory Brandon Chi [place] Facility:[facility] Start: 08-06-2023 ambulatory Brandon Chi [place]im Facility:[facility] Start: 08-06-2023 End: 08-06-2023 ambulatory Brandon Chi [place]im Facility:[facility] Start: 07-12-2023 End: 07-12-2023 ambulatory Brandon Chi [place]im Facility:[facility] Start: 07-05-2023 End: 07-05-2023 ambulatory Brandon March Facility:[facility] Start: 05-30-2023 End: 05-30-2023 ambulatory [facility] Work Phone: Start: 05-30-2023 End: 05-30-2023 [facility] Start: 05-17-2023 End: 05-17-2023 ambulatory [facility] Work Phone: Start: 05-17-2023 End: 05-17-2023 Patient encounter procedure [facility]-Outpatient Bone Densitometry Work Phone: Start: 05-16-2023 End: 05-16-2023 ambulatory [facility] Work Phone: Start: 05-16-2023 End: 05-16-2023 [facility] Start: 03-14-2023 End: 03-14-[address] Brandon March Work Phone: [facility] Work Phone: Start: 03-14-2023 End: 03-14-[address] [facility] Start: 12-27-2022 Non-patient / Non-visit Dr. Brandon March Work Phone: [facility] Start: 12-27-2022 End: 12-27-[address] Brandon March Work Phone: [facility]-Radiology, [facility] Work Phone: Start: 11-07-2022 End: 11-07-[address] Brandon March Work Phone: [facility] Work Phone: Start: 11-07-2022 End: 11-07-[address] Brandon March [facility] Start: 10-11-2022 End: 10-11-[address] Brandon March [facility] Start: 07-20-2022 End: 07-20-[address] Brandon March Work Phone: [facility] Start: 07-14-2022 End: 07-14-[address] Brandon March Work Phone: [facility] Work Phone: Start: 07-14-2022 End: 07-14-[address] Brandon [facility] Start: 06-21-2022 End: 06-21-[address] Brandon March Work Phone: [facility] Work Phone: Start: 06-21-2022 End: 06-21-[address] Brandon March [facility] Start: 05-17-2022 End: 05-17-[address] Brandon March Work Phone: [facility] Work Phone: Start: 05-17-2022 End: 05-17-[address] Brandon March [facility] Start: 04-21-[address] Brandon donald [facility] Start: 04-21-2022 Non-patient / Non-visit Dr. Brandon March Work Phone: [facility] Start: 04-18-2022 End: 04-18-[address] Brandon March Work Phone: [facility]-Outpatient Breast Imaging Start: 04-13-2022 End: 04-13-[address] Brandon March Work Phone: [facility] Start: 03-22-2022 End: 03-22-[address] Brandon March Work Phone: [facility] Work Phone: Start: 03-22-2022 End: 03-22-[address] Brandon March Work Phone: [facility]-Laboratory Start: 03-22-2022 End: 03-22-[address] Brandon March Work Phone: [facility] G[facility] Start: 01-23-2022 End: 01-23-[address] Brandon March Work Phone: [facility]-Pulmonary Services/Neurology Start: 01-19-2022 Non-patient / Non-visit Dr. Brandon March Work Phone: [facility] Start: 01-19-2022 End: 01-19-[address] Brandon March Work Phone: [facility]-Cardiovascular Services Start: 01-11-2022 End: 01-11-[address] Brandon March Work Phone: [facility] Start: 01-09-2022 Non-patient / Non-visit Dr. Brandon March Work Phone: [facility] Start: 12-30-2021 End: 12-30-[address] Brandon March Work Phone: [facility] Start: 12-26-2021 Non-patient / Non-visit Dr. Brandon March Work Phone: [facility] Start: 11-09-2021 End: 11-09-[address] Brandon March Work Phone: [facility] Work Phone: Start: 11-09-2021 End: 11-09-[address] Brandon March [facility] Start: 08-10-2021 End: 08-10-[address] Brandon March Work Phone: [facility] Start: 07-26-2021 Non-patient / Non-visit Dr. Brandon March Work Phone: [facility] Start: 07-26-2021 End: 07-26-2021 Admission to same day surgery center Dr. Brandon March Work Phone: [facility]-Endoscopy Start: 07-22-2021 End: 07-22-[address] Brandon March Work Phone: [facility]-Pulmonary Services/Neurology Start: 05-11-2021 End: 05-11-[address] Brandon March [facility] Start: 05-06-2021 End: 05-06-[address] Brandon March [facility] Start: 05-02-2021 End: 05-02-[address] Brandon March Work Phone: [facility]-Laboratory Start: 04-11-2021 End: 04-11-[address] Brandon March Work Phone: [facility]-Radiology, [facility] Procedures Date Procedure Procedure Detail Performing Clinician [...] Work Phone: Start: 07-26-[address] Brandon donadl Work Phone: Start: 07-22-2021 Influenza Types A,B [...] Activity Detail Author Start: 01-23-2024 Patient discharge [facility] Start: 01-21-2024 Application of intermittent pneumatic compression device [facility] Start: 01-21-2024 Referral to occupati onal therapist [facility] Start: 01-21-2024 Referral to service [facility] Start: 01-20-2024 Inhalation therapy procedure [facility] Start: 01-18-2024 Following clinical pathway protocol [facility] Start: 01-18-2024 Referral to residential property consultant [facility] Start: 01-18-2024 Admission procedure [facility] Start: 03-14-2023 Procedure [facility] Start: 03-22-2022 Egg whole IgE ab rat io ser [facility] Start: 07-26-2021 Colonoscopy w/biopsy single/multiple COLONOSCOPY AND BIOPSY [facility] Work Phone: Start: 07-26-2021 Colsc flx w/rmvl of tumor polyp lesion snare tq COLONOSCOPY W/LESION REMOVAL [facility] Work Phone: Start: 07-26-2021 Egd transoral biopsy single/multiple EGD BIOPSY SINGLE/MULTIPLE [facility] Work Phone: Start: 11-29-2016 End: 11-29-2016 Bacteria identified Cx Nom (Wound) *Culture and Sensitivity, wound [facility] Work Phone: Banana IgE Ab [Units/volume] in Serum [facility] Beef IgE Ab [Units/volume] in Serum [facility] Celery IgE Ab [Units/volume] in Serum [facility] Cheese cheddar type IgE Ab [Units/volume] in Serum [facility] Chocolate IgE Ab [Units/volume] in Serum [facility] [place] IgE Ab [Units/volume] in Serum [facility] Cow milk IgE Ab [Units/volume] in Serum [facility] Fish RAST [facility] Lactalbumin alpha Ig E Ab [Units/volume] in Serum [facility] Lettuce IgE Ab [Units/volume] in Serum [facility] Patient Education [facility] Work Phone: Patient referral [facility] Work Phone: [place] IgE Ab [Units/volume] in Serum [facility] Peanut IgE Ab [Units/volume] in Serum [facility] Pork IgE Ab [Units/volume] in Serum [facility] Soybean IgE Ab [Units/volume] in Serum [facility] [place] meat IgE Ab [Units/volume] in Serum [facility] Wheat IgE Ab [Units/volume] in Serum [facility] Immunizations Immunization Date Immunization Notes Care Provider Fa jose 11-13-[address] Brandon March Work Phone: [facility] Payers Date Payer Category Payer Self-pay [id number] 2023 Self-pay [id number] 2005 Private Health Insurance [facility] [id number] 2004 Medicare [id number] Unknown [id number] 2.16.8 [id number] Unknown [id number] 2.16.8 40.1.861575.3.579.2.462 Unknown [id number] 2.16.8 40.1.051593.3.579.2.462 Unknown [id number] 2.16.8 40.1.631692.3.579.2.462 Unknown [id number] 2.16.8 40.1.203166.3.579.2.462 Unknown [id number] 2.16.8 40.1.334926.3.579.2.462 Unknown [id number] 2.16.8 40.1.554803.3.579.2.462 Unknown [id number] 2.16.8 40.1.111433.3.579.2.462 Unknown [id number] 2.16.8 40.1.279726.3.579.2.462 Unknown [id number] 2.16.8 40.1.970472.3.579.2.462 Unknown [id number] 2.16.8 40.1.404248.3.579.2.462 Unknown [id number] 2.16.8 40.1.189424.3.579.2.462 Unknown [id number] 2.16.8 40.1.949449.3.579.2.462 Unknown [id number] 2.16.8 40.1.725887.3.579.2.462 Unknown [id number] 2.16.8 40.1.406773.3.579.2.462 Unknown [id number] 2.16.8 40.1.705226.3.579.2.462 Unknown [id number] 2.16.8 40.1.379245.3.579.2.462 Unknown [id number] 2.16.8 40.1.200974.3.579.2.462 Unknown [id number] 2.16.8 40.1.532409.3.579.2.462 Unknown [id number] 2.16.8 40.1.228292.3.579.2.462 Unknown [id number] 2.16.8 40.1.444026.3.579.2.462 Unknown [id number] 2.16.8 40.1.974547.3.579.2.462 Unknown [id number] 2.16.8 40.1.243483.3.579.2.462 Unknown [id number] 2.16.8 40.1.722821.3.579.2.462 Unknown [id number] 2.16.8 40.1.511330.3.579.2.462 Social History Date Type Detail Facility Start: 05-02-2021 End: 07-20-2022 Tobacco smoking status NHIS Unknown if ever smoked [facility] Start: 11-12-2017 [facility] Start: 11-12-2017 Spouse/ Signif icant Other [facility] Start: 12-01-2017 Non-smoker [facility] Start: 1940 Sex Assigned At Female [facility] Start: 01-18-2024 Tobacco smoking status NHIS Never smoked tobacco (finding) [facility] Start: 05-01-2024 Sex Female (finding) [facility] Medical Equipment Procedure Code Equipment Code Equipment [...] Assessment Result Facility 01-23-2024 Functional status Bedrest [facility] Work Phone: Mental Status Date Assessment Result Facility 01-23-2024 Cognitive function Voice/Name [facility] Work Phone: 07-26-2021 Cognitive function Voice/Name [facility] Work Phone: Clinical Notes 01-19-2024 to 04-24-2024 Note Date & Type Note Facility 04-24-2024 Nuclear medicine Diagnostic study note [facility] Imaging Services [address] [place] [address] [id number] Thyroid Uptake Single or Mult MR#: [id number] Acct: [id number] Name: CARLEY SPRAGUE Rep #: [id number] : 1940 F 83 From: Mohit Galloway MD PCP: Dr. Brandon March MD Status: RAÚL SERNA Study:Thyroid Uptake Single or Mult Date of Exam: 04/23/24 Exam# [id number] Ordering Dr: Brandon March MD PROCEDURE: THYROID [...] activity in the left lobe. Reading Location: [id number] CC: Dr. Brandon March MD ~ Data Reporting Analyst: Signed [facility] 01-23-2024 Note [facility] Medical Records Department [address] [place] [address] Discharge Summary 01/23/24 1400 MR#: [id number] Acct: [id number] Name: CARLEY SPRAGUE Rep #: [id number] : 1940 83 From: Cal Billings MD PCP: Dr. Brandon March MD Status:ADM IN [id number] Prov[facility] Date of Admission: 01/18/24 Primary Care Physician: Dr. Brandon March MD Consultations 01/18/24 23:41 Consult: Cardiology Routine Consulting Provider: [facility] Reason for Consult: Hypertensive Emergency with [...] mg/1.5 mL subcutaneous syringe 284 mg subcut [id number] cholesterol 07/05/23 linaclotide 72 mcg capsule (Linzess) [...] and history of TKR who presents to [facility] ER complaining of highly elevated blood [...] was emergently treat (more content not included)... [facility] 01-19-2024 Evaluation note Diagnosis Onset Date [...] inactive January 17 10:57pm Hypertensive emergency acute [facility] 2024 10:53am Chronic kidney disease, stage 3a chronic February 24 10:53am Hyperlipidemia chronic February 242024 10:53am [facility] Work Phone: Evaluation note* Diagnosis Onset Date Resolution Status Family history of colon cancer acute Hiatal hernia acute [facility] Work Phone: Evaluation note* Diagnosis Onset Date Resolution Status Esophagitis acute Gastritis acute Tubular adenoma of colon acu te [facility] Work Phone: Evaluation note* Diagnosis Onset Date Resolution Status Abdominal pain acute Palpitations acute Essential (primary) hypertension chronic Abdominal pain acute Acid reflux chronic Alternating constipation and diarrhea chronic [facility] Work Phone: Evaluation note* Diagnosis Onset Date Resolution Status Abdominal pain acute Acid reflux chronic Alternating constipation and diarrhea chronic Palpitations acute Essential (primary) hypertension chronic [facility] Work Phone: Evaluation note* Diagnosis Onset Date Resolution Status Abdominal pain acute Acid reflux chronic Alternating constipation and diarrhea chronic Palpitations acute Essential (primary) hypertension chronic Bruising acute Palpitations acute Essential (primary) hypertension chronic Hyperlipidemia chronic [facility] Work Phone: Evaluation note* Diagnosis Onset Date Resolution Status Bruising acute Palpitations acute Essential (primary) hypertension chronic Hyperlipidemia chronic [facility] Work Phone: Evaluation note* Diagnosis Onset Date Resolution Status Primary osteoarthritis, right shoulder acute [facility] Work Phone: Evaluation noteNo assessment information available [facility] Work Phone: Reason for referral (narrative)No [facility] Work Phone: Chief Complaint and Reason for [...] No June 09, 2018 11:59am Power of Assembler Camper No June 09 11:59am Advance Directive Response Recorded Date/ Time Living Will No July 25, 2021 12:07pm Power of Assembler Camper No July 25 12:07pm Advance Directive Response Recorded Date/ Time Living Will No July 25, 2021 11:07am Power of Assembler Camper No July 25 11:07am Advance Directive Response Recorded Date/ Time Living Will No January 18 12:44am Do you have a Healthcare Power of Assembler Camper? No January 19, 2024 12:44am Summary Purpose [...] Primary Care Provider, Referring Provider Active Dr. Sina Bloom DO Attending [...] Status: Inactive Member Role Status Dates Dr. Barndon March MD Primary Care Provider Active Dr. [...] 2024 End: January 23, 2024 Son Garrido PETAL SHAPER HAND, PETAL SHAPER HAND-C Other Provider Active Start : January 18, [...] Active Start: January 19, 2024 Son Garrido [employer]AL SH[employer]ER [employer], PETAL SHAPER HAND-C Other Provider Active Start : January 19, [...] Active Start: January 19, 2024 Son Garrido [employer]AL SHAPER HAND, PETAL SHAPER HAND-C Other Provider Active Start : January 19, [...] Active Start: January 20, 2024 Son Garrido [employer]AL SHAPER HAND, PETAL SHAPER HAND-C Other Provider Active Start : January 20, [...] Active Start: January 20, 2024 Son Garrido PETAL SHAPER HAND, PETAL SHAPER HAND-C Other Provider Active Start : January 20, [...] Active Start: January 21, 2024 Son Garrido PETAL SHAPER HAND, PETAL SHAPER HAND-C Other Provider Active Start : January 21, [...] Active Start: January 22, 2024 Son Garrido PETAL SHAPER HAND, PETAL SHAPER HAND-C Other Provider Active Start : January 22, [...] St art: January 23, 2024 Dr. Ronny Wislon MD Other Provider Active Start: January 23, 2024 Dr. Kevin Nesbitt MD Other Provider Active S tart: January 23, 2024 Dr. Arthur Hernandez MD Other Provider Active Start: January 23, 2024 Son Garrido [employer]ER HAND, PETAL SHAPER HAND-C Other Provider Active Start : January 23, [...] section and content) DATE CREATED AUTHOR 06/17/2024 [facility] FOR RECORDS PERTAINING TO PATIENTS WHO ARE [...] BE BASED ON THE PRIMARY CLINICAL RECORDS. [facility]. provides no warranty or guarantee of the accuracy or completeness of information in this document.
[2024-08-28 22:28] LABS: Differential Comment SCANNED
--- NOTE | 2024-08-28 23:01 | NURSING ---
Patient takes another eye drop that is a serum that we keep in the freezer. Her will let us know what the name of that medication is on August 29.
[2024-08-28 23:04] LABS: Anion Gap 12 (5-15); BUN 28 mg/dL (4-19); BUN/Creat Ratio 23.3 RATIO (10-20); Calcium,Total 9.8 mg/dL (7.6-11.0); Carbon Dioxide 19.5 mmol/L (21.0-32.0); Chloride 100 mmol/L (98-108); Estimated Creatinine Clearance 32.05 ml/min (50-250); Glucose 115 mg/dL (70-99); Potassium 4.8 mmol/L (3.3-5.1)
[2024-08-28 23:14] LABS: Magnesium 2.2 mg/dL (1.5-2.2)
[2024-08-28] MEDS: 0.9% Normal Saline (1000mL) 1,000 ML 50 ML IV (23:32)
[2024-08-28] MEDS: 0.9% Saline Lock 10 ML Syringe IV (23:33)
[2024-08-29] MEDS: Lidocaine 5% Patch 1 PATCH TOPICAL ×2 (00:30→21:51)
[2024-08-29] MEDS: 0.9% Saline Lock 10 ML Syringe IV ×4 (01:23→21:52)
[2024-08-29 03:01] VITALS: BP 162/76; PULSE 64; RESP 16; TEMP 36.4; O2SAT 94
[2024-08-29] MEDS: HYDROmorphone 0.5 MG/0.5 ML SYRINGE IV (03:33)
[2024-08-29 06:58] LABS: Hematocrit 37.5 % (37-47); Hemoglobin 12.9 g/dL (12.0-15.0); Immature Granulocytes Count 0.170 X10^3/uL (0.0-0.0); Mean Corp Hgb Conc 34.4 g/dL (32-36); Mean Corpuscular Volume 89.7 fL (81-99); Mean Platelet Vol. 10.4 fl (6.2-12.0); NRBC Flagged by Analyzer 0 % (0-5); Platelet Count 275 K/mm3 (150-450); RBC Distribution Width CV 12.1 % (11.6-14.6); RBC Distribution Width SD 39.8 fl (35.1-43.9); Red Blood Count 4.18 M/mm3 (4.2-5.4); White Blood Count 19.5 K/mm3 (4.4-11.0)
[2024-08-29 07:02] LABS: Mucous, Urine 0 SEEN /hpf (<or=2+); Red Blood Cells-Urine 0 SEEN /hpf (0-5)
[2024-08-29 07:05] LABS: Color, Urine Yellow (Yellow); Glucose, Dipstick Normal (Normal); Ketone-Dipstick 5 mg/dl (Negative); Leukocyte Esterase-Dipstick 25 /ul (Negative); Nitrite-Dipstick Negative (Negative); Occult Blood-Urine Negative /ul (Negative); Protein-Dipstick 15 mg/dl (Negative); Specific Gravity, Urine 1.015 (1.002-1.030)
[2024-08-29 07:12] LABS: AST(SGOT) 289 U/L (<=31); Alanine Aminotransfer ALT/SGPT 118 U/L (<=34); Albumin, Serum 3.6 g/dL (3.4-4.8); Alkaline Phosphatase 164 U/L (35-104); Anion Gap 12 (5-15); BUN 29 mg/dL (4-19); BUN/Creat Ratio 22.3 RATIO (10-20); Calcium,Total 9.7 mg/dL (7.6-11.0); Carbon Dioxide 18.9 mmol/L (21.0-32.0); Chloride 100 mmol/L (98-108); Estimated Creatinine Clearance 29.64 ml/min (50-250); Globulin 2.4 g/dL (2.2-4.2); Glucose 156 mg/dL (70-99); Potassium 4.7 mmol/L (3.3-5.1)
[2024-08-29 07:39] LABS: Urine Bilirubin Dipstick 1 mg/dL (Negative)
[2024-08-29 07:44] LABS: Squamous Epithelial Cells - UA 0-5 SEEN /hpf (5-10)
--- NOTE | 2024-08-29 08:00 | PCM.PN.HOSP ---
Reason for Visit Chief Complaint: Fall x 2 this week. Subjective Subjective Patient is an 84-year-old lady admitted with fall days prior to admission who presented to the emergency department with difficulty with ambulation as well as back pain. Admitted to regular nursing floor for further management Objective Data Objective Data Vital Signs: Vital Signs Temp Pulse Resp BP Pulse Ox O2 Del Method 97.5 F L 64 16 162/76 H 94 Room Air 08/29/24 03:01 08/29/24 03:01 08/29/24 03:01 08/29/24 03:01 08/29/24 03:01 08/29/24 07:12 Oxygen Delivery Method Room Air Weight: 74.4 kg Body Mass Index (BMI) 30.4 Intake & Output: Intake and Output for Last 24 Hours 08/27/24 08/28/24 08/29/24 23:59 23:59 23:59 Output Total 500 / 500 Balance -500 / -500 Lab / Micro Data 08/29/24 05:23 08/29/24 05:23 Labs: Laboratory Results - last 24 hr 08/28/24 21:18: WBC 25.0 H, RBC 4.32, Hgb 13.6, Hct 38.9, MCV 90.0, MCH 31.5, MCHC 35.0, RDW Std Deviation 39.5, RDW Coeff of Patrizia 12.0, Plt Count 300, MPV 10.2, Immature Gran % (Auto) 0.700, Neut % (Auto) 84.1 H, Lymph % (Auto) 7.9 L, [place] % (Auto) 7.2, Eos % (Auto) 0.0, Baso % (Auto) 0.1, Absolute Neuts (auto) 21.0 H, Absolute Lymphs (auto) 1.97, Nucleated RBC % 0, Differential Comment SCANNED, Sodium 131 L, Potassium 4.8, Chloride 100, Carbon Dioxide 19.5 L, Anion Gap 12, BUN 28 H, Creatinine 1.21 H, Estim Creat Clear Calc 32.05 L, Est GFR (MDRD) Non-Af 44 L, BUN/Creatinine Ratio 23.3 H, Glucose 115 H, Calcium 9.8, Magnesium 2.2 08/29/24 05:23: WBC 19.5 H, RBC 4.18 L, Hgb 12.9, Hct 37.5, MCV 89.7, MCH 30.9, MCHC 34.4, RDW Std Deviation 39.8, RDW Coeff of Patrizia 12.1, Plt Count 275, MPV 10.4, Immature Gran % (Auto) 0.900, Neut % (Auto) 87.4 H, Lymph % (Auto) 7.5 L, [place] % (Auto) 4.1, Eos % (Auto) 0.0, Baso % (Auto) 0.1, Absolute Neuts (auto) 17.1 H, Absolute Lymphs (auto) 1.46, Nucleated RBC % 0, Sodium 131 L, Potassium 4.7, Chloride 100, Carbon Dioxide 18.9 L, Anion Gap 12, BUN 29 H, Creatinine 1.28 H, Estim Creat Clear Calc 29.64 L, Est GFR (MDRD) Non-Af 41 L, BUN/Creatinine Ratio 22.3 H, Glucose 156 H, Calcium 9.7, Phosphorus 3.3, Total Bilirubin 2.07 H, AST 289 H, ALT 118 H, Alkaline Phosphatase 164 H, Total Protein 6.0, Albumin 3.6, Globulin 2.4, Albumin/Globulin Ratio 1.5, TSH 0.370 08/29/24 06:55: Urine Color Yellow, Urine Clarity Clear, Urine pH 6.0, Ur Specific [place] 1.015, Urine Protein 15 H, Urine Glucose (UA) Normal, Urine Ketones 5 H, Urine Occult Blood Negative, Urine Nitrite Negative, Urine Bilirubin 1 H, Urine Urobilinogen 4 H, Ur Leukocyte Esterase 25 H, Urine RBC 0 SEEN, Urine WBC 0-5 SEEN, Ur Squamous Epith Cells 0-5 SEEN, Urine Bacteria 0 SEEN, Urine Mucus 0 SEEN Radiography Diagnostic Testing: Radiology Impression Lumbar Spine CT 08/28/24 19:41 IMPRESSION: 1. Compression fracture of the L2 vertebral body, involving the superior endplate and resulting in 30% height loss and 4 mm of fracture fragment retropulsion. This finding is new since CT on 03/12/2024. MRI could be performed to determine acuity if clinically warranted. 2. Unchanged compression deformity at T12. 3. Multilevel degenerative changes of the lumbar spine, worst at L5-S1. Reading Location: [facility] Physical Exam Narrative GENERAL: cooperative HEENT: Atraumatic; normocephalic EYES; Anicteric, Normal Conjunctiva NECK; supple, normal thyroid, RESPIRATORY: Diminished to auscultation CARDIOVASCULAR: Regular S1 S2, GI: soft, normoactive bowel sounds, : No Renal angle tenderness; EXTREMITIES: No edema, no clubbing, MUSCULOSKELETAL: no muscle wasting NEURO: Awake; no lateralizing signs. SKIN: No Rash PSYCH; Flat affect Assessment & Plan Assessment/Plan (1) Compression fracture of L2: QUALIFIERS: Encounter type: initial encounter Qualified Code(s): S32.020A - Wedge compression fracture of second lumbar vertebra, initial encounter for closed fracture (2) Fall: QUALIFIERS: Encounter type: initial encounter Qualified Code(s): W19.XXXA - Unspecified fall, initial encounter (3) Intractable back pain: PLAN: Plan Patient is an 84-year-old lady admitted with fall days prior to admission who presented to the emergency department with difficulty with ambulation as well as back pain. Admitted to regular nursing floor for further management 1. Fall with intractable back pain ? CT of the lumbar spine obtained on admission did show Compression Fracture of the L2 vertebral body involving the superior end-plate and resulting in ~30% height loss and ~4 mm of fracture fragment retropulsion, new since 03/12/2024 with MRI recommended to confirm acuity. Admitted to regular nursing floor for pain control. Also started on steroids consult placed to spine surgery. MRI was ordered for subsequent eval 2. Physical deconditioning/debility secondary to above ? Requested for PT OT eval and psych social worker to assist with discharge planning 3.Hypertension ? Blood pressure controlled, home medications continued with dose adjustment as needed 4. Depression with anxiety ? Patient is on paroxetine 5. GERD ? Patient is on PPI 6.Class I obesity with BMI of 31 ? Complicating care weight loss advised 7. Hyponatremia ? Secondary to patient being on HCTZ we will continue with monitoring and is continued patient sodium levels continue to follow 8. Leukocytosis ? Etiology not clear we will continue monitor trend 9. Abnormal LFTs ? Ordered gallbladder ultrasound 10. DVT prophylaxis Only SCDs only for now pending evaluation by spine surgeon Time spent in the patient's overall evaluation,decision-making process, review of diagnostic data, adjustment of management, discussion with other providers, nursing nursing and ancillary staff involved in patient's care documentation, 50 Minutes Charges/Coding Visit Charges Inpatient E&M: 29667 Subs Hosp L3
[2024-08-29 09:22] VITALS: BP 141/65; PULSE 64; RESP 16; TEMP 36.4; O2SAT 99
[2024-08-29] MEDS: Cholecalciferol (VIT D3) 25 MCG TABLET (1,000 UNITS) PO (09:38)
--- NOTE | 2024-08-29 09:52 | US_ITS ---
PROCEDURE: ABDOMEN LIMITED 08/29/2024 REASON FOR EXAM: ELEVATED LFTS TECHNIQUE: ABDOMEN LIMITED FINDINGS: Liver unremarkable. Portal vein is patent. The gallbladder surgically absent. Right kidney measures 8.6 x 4.1 x 4.2 cm. The common bile duct is prominent at 10 mm. Pancreatic head and body are unremarkable US/Abdomen Limited IMPRESSION: Prominent common bile duct which can be seen status post cholecystectomy. Chelsie lar appearance on CT study of 01/18/2024 Reading [facility]
[2024-08-29 14:28] VITALS: BP 185/85; PULSE 69; RESP 16; TEMP 36.6; O2SAT 97
--- NOTE | 2024-08-29 14:31 | CASEMGMT ---
Met with patient to complete GOSS form. GOSS form and its content were verbally explained and patient's questions were answered to the best of my ability.? Patient voiced understanding and signed GOSS form.? Patient provided a copy of signed GOSS form and original placed in patient's chart.? Patient had no further questions. Elana Hua, Discharge Planning Asst
[2024-08-29] MEDS: Latanoprost 0.005% 1 Bottle 1 DRP OPHTHALMIC (21:52)
--- NOTE | 2024-08-29 22:11 | MRI_ITS ---
PROCEDURE: SPINE LUMBAR (ROUTINE) 08/29/2024 REASON FOR EXAM: SUSPECTED ACUT L2 COMP FX L2 W/ INTRACT BACK PAIN TECHNIQUE: Multiplanar and multisequential MRI of the lumbar spine was performed without contrast. COMPARISON: Lumbar spine CT 08/28/2024. FINDINGS: Acute-subacute compression fracture involving the superior endplate of L2 with marrow edema, and approximately 50% height loss. No significant retropulsion into the spinal canal. Remainder of the vertebral bodies are relatively well preserved in height with no additional fracture. No suspicious marrow lesion. Modic type 2 degenerative endplate signal changes at T12-L1. Grade 2 anterolisthesis of L5 on S1 by roughly 8 mm. Alignment is otherwise anatomic at the remaining levels. The conus appears normal in signal and morphology, terminating at L1. Normal appearance of the cauda equina. No significant abnormality in the visualized paravertebral soft tissues. Multilevel spondylotic changes with varying degrees of disc desiccation and narrowing, endplate osteophytosis and multiple small degenerative Schmorl's nodes, and hypertrophic facet arthropathy. At T10-T11; central disc protrusion indents the ventral thecal sac with contact on the anterior aspect of the lower cord, with no cord impingement or edema. No neural foraminal narrowing. At T12-L1; left paracentral disc protrusion indents the ventral thecal sac with contact on the tip of the conus, with no impingement or edema. No neural foraminal narrowing. L1-2: Asymmetric right disc bulge slightly indents the ventral thecal sac, with no substantial spinal canal or neural foraminal narrowing. L2-3: Broad-based disc bulge slightly indents the ventral thecal sac, with no substantial spinal canal narrowing. Mild bilateral neural foraminal narrowing. L3-4: Broad-based disc bulge indents the ventral thecal sac with no substantial spinal canal narrowing. Mild bilateral neural foraminal narrowing. L4-5: Broad-based disc bulge and ligamentum flavum/facet hypertrophy results in mild-moderate spinal canal narrowing with effacement of the lateral recesses. Mild right and moderate left neural foraminal narrowing. L5-S1: Partially uncovered dorsal disc bulge due to the L5 grade 2 anterolisthesis, resulting in mild spinal canal narrowing with effacement of the lateral recesses. Moderate-advanced bilateral foraminal narrowing, slightly greater on the right. MRI/Spine Lumbar (Routine) IMPRESSION: Acute-subacute compression fracture involving superior endplate of L2. No retr opulsion. Multilevel spondylotic changes as described with no high-grade spinal canal harley rowing. Grade 2 degenerative anterolisthesis of L5 on S1. Neural foraminal narrowing i s at most moderate on the left at L4-5, and moderate-advanced bilaterally at L5-S1. Reading Location: [id number]
[2024-08-29 22:28] VITALS: BP 164/63; PULSE 60; RESP 16; TEMP 36.7; O2SAT 94
[2024-08-30] VITALS (8 sets, daily range): BP systolic 134–193; BP diastolic 61–78; PULSE 58–66; RESP 14–16; TEMP 36.4–37; O2SAT 94–97; BMI 33.1
[2024-08-30] MEDS: 0.9% Saline Lock 10 ML Syringe IV ×3 (05:18→21:58)
[2024-08-30 07:18] LABS: Hematocrit 38.7 % (37-47); Hemoglobin 13.2 g/dL (12.0-15.0); Immature Granulocytes Count 0.150 X10^3/uL (0.0-0.0); Mean Corp Hgb Conc 34.1 g/dL (32-36); Mean Corpuscular Volume 89.2 fL (81-99); Mean Platelet Vol. 10.3 fl (6.2-12.0); NRBC Flagged by Analyzer 0 % (0-5); Platelet Count 284 K/mm3 (150-450); RBC Distribution Width CV 12.2 % (11.6-14.6); RBC Distribution Width SD 39.4 fl (35.1-43.9); Red Blood Count 4.34 M/mm3 (4.2-5.4); White Blood Count 14.1 K/mm3 (4.4-11.0)
[2024-08-30 07:33] LABS: Anion Gap 11 (5-15); BUN 33 mg/dL (4-19); BUN/Creat Ratio 23.8 RATIO (10-20); Calcium,Total 9.5 mg/dL (7.6-11.0); Carbon Dioxide 18.0 mmol/L (21.0-32.0); Chloride 101 mmol/L (98-108); Estimated Creatinine Clearance 28.69 ml/min (50-250); Glucose 168 mg/dL (70-99); Magnesium 2.3 mg/dL (1.5-2.2); Potassium 4.6 mmol/L (3.3-5.1)
--- NOTE | 2024-08-30 07:52 | PCM.PN.HOSP ---
Reason for Visit Chief Complaint: Fall x 2 this week. Objective Data Objective Data Vital Signs: Vital Signs Temp Pulse Resp BP Pulse Ox O2 Del Method 97.6 F L 66 16 193/78 H 94 Room Air 08/30/24 05:21 08/30/24 05:21 08/30/24 05:21 08/30/24 05:21 08/30/24 05:21 08/30/24 05:21 Oxygen Delivery Method Room Air Weight: 80.739 kg Body Mass Index (BMI) 33.1 Intake & Output: Intake and Output for Last 24 Hours 08/28/24 08/29/24 08/30/24 23:59 23:59 23:59 Intake Total 1000 / 1000 Output Total 500 / 500 Balance 500 / 500 Lab / Micro Data 08/30/24 06:00 08/30/24 06:00 Labs: Laboratory Results - last 24 hr 08/30/24 06:00: WBC 14.1 H, RBC 4.34, Hgb 13.2, Hct 38.7, MCV 89.2, MCH 30.4, MCHC 34.1, RDW Std Deviation 39.4, RDW Coeff of Patrizia 12.2, Plt Count 284, MPV 10.3, Immature Gran % (Auto) 1.100 H, Neut % (Auto) 83.6 H, Lymph % (Auto) 9.8 L, [place] % (Auto) 5.4, Eos % (Auto) 0.0, Baso % (Auto) 0.1, Absolute Neuts (auto) 11.8 H, Absolute Lymphs (auto) 1.38, Nucleated RBC % 0, Sodium 130 L, Potassium 4.6, Chloride 101, Carbon Dioxide 18.0 L, Anion Gap 11, BUN 33 H, Creatinine 1.38 H, Estim Creat Clear Calc 28.69 L, Est GFR (MDRD) Non-Af 38 L, BUN/Creatinine Ratio 23.8 H, Glucose 168 H, Calcium 9.5, Phosphorus 3.2, Magnesium 2.3 H Radiography Diagnostic Testing: Radiology Impression Abdomen Ultrasound 08/29/24 09:52 IMPRESSION: Prominent common bile duct which can be seen status post cholecystectomy. Similar appearance on CT study of 01/18/2024 Reading Location: [facility] Lumbar Spine MRI 08/29/24 22:11 IMPRESSION: Acute-subacute compression fracture involving superior endplate of L2. No retropulsion. Multilevel spondylotic changes as described with no high-grade spinal canal narrowing. Grade 2 degenerative anterolisthesis of L5 on S1. Neural foraminal narrowing is at most moderate on the left at L4-5, and moderate-advanced bilaterally at L5-S1. Reading Location: [facility] Physical Exam Narrative GENERAL: cooperative HEENT: Atraumatic; normocephalic EYES; Anicteric, Normal Conjunctiva NECK; supple, normal thyroid, RESPIRATORY: Diminished to auscultation CARDIOVASCULAR: Regular S1 S2, GI: soft, normoactive bowel sounds, : No Renal angle tenderness; EXTREMITIES: No edema, no clubbing, MUSCULOSKELETAL: no muscle wasting NEURO: Awake; no lateralizing signs. SKIN: No Rash PSYCH; Flat affect Assessment & Plan Assessment/Plan (1) Compression fracture of L2: QUALIFIERS: Encounter type: initial encounter Qualified Code(s): S32.020A - Wedge compression fracture of second lumbar vertebra, initial encounter for closed fracture (2) Fall: QUALIFIERS: Encounter type: initial encounter Qualified Code(s): W19.XXXA - Unspecified fall, initial encounter (3) Intractable back pain: PLAN: Plan Patient is an 84-year-old lady admitted with fall days prior to admission who presented to the emergency department with difficulty with ambulation as well as back pain. Admitted to regular nursing floor for further management 1. Fall with intractable back pain ? CT of the lumbar spine obtained on admission did show Compression Fracture of the L2 vertebral body involving the superior end-plate and resulting in ~30% height loss and ~4 mm of fracture fragment retropulsion, new since 03/12/2024 with MRI recommended to confirm acuity. Admitted to regular nursing floor for pain control. Also started on steroids consult placed to spine surgery. MRI was ordered for subsequent eval 08/30/2024; MRI obtained the day prior did not show acute-subacute compression fracture involving superior endplate of L2. No retropulsion. multilevel spondylotic changes as described with no high-grade spinal canal narrowing. Grade 2 degenerative anterolisthesis of L5 on S1. Neural foraminal narrowing is at most moderate on the left at L4-5, and moderate-advanced bilaterally at L5-S1. 2. Physical deconditioning/debility secondary to above ? Requested for PT OT eval and licensed master social worker to assist with discharge planning 3.Hypertension ? Blood pressure controlled, home medications continued with dose adjustment as needed 4. Depression with anxiety ? Patient is on paroxetine 5. GERD ? Patient is on PPI 6.Class I obesity with BMI of 31 ? Complicating care weight loss advised 7. Hyponatremia ? Secondary to patient being on HCTZ we will continue with monitoring and is continued patient sodium levels continue to follow 8. Leukocytosis ? Etiology not clear we will continue monitor trend 9. Abnormal LFTs ? Ordered gallbladder ultrasound Prominent common bile duct which can be seen status post cholecystectomy. Similar appearance on CT study of 01/18/2024 10. DVT prophylaxis Only SCDs only for now pending evaluation by spine surgeon Time spent in the patient's overall evaluation,decision-making process, review of diagnostic data, adjustment of management, discussion with other providers, nursing nursing and ancillary staff involved in patient's care documentation, 50 Minutes
--- NOTE | 2024-08-30 08:35 | PCM.DC.SUM ---
Providers Date of Admission: 08/28/24 Date of Discharge: 08/30/24 Primary Care Physician: Dr. Brandon March MD Consultations 08/28/24 22:36 Consult: Orthopedics Routine Consulting Provider: Dickson Viveros Reason for Consult: L2 comp fx after fall with retropulsion. EMERGENT Consult: No MD Notified: Yes Date Notified: 08/29/24 Time Notified: 10:00 Method of Notification: Text Reason For Visit: ACUTE L2 COMP. FX W/ RETROPULSION AND Diagnosis Discharge Diagnosis (1) Compression fracture of L2: Status: Acute Code(s): S32.020A - Wedge compression fracture of second lumbar vertebra, initial encounter for closed fracture Qualifiers: Encounter type: initial encounter Qualified Code(s): S32.020A - Wedge compression fracture of second lumbar vertebra, initial encounter for closed fracture (2) Fall: Status: Acute Code(s): W19.XXXA - Unspecified fall, initial encounter Qualifiers: Encounter type: initial encounter Qualified Code(s): W19.XXXA - Unspecified fall, initial encounter (3) Intractable back pain: Status: Acute Code(s): M54.9 - Dorsalgia, unspecified Plan Patient is an 84-year-old lady admitted with fall days prior to admission who presented to the emergency department with difficulty with ambulation as well as back pain. Admitted to regular nursing floor for further management 1. Fall with intractable back pain ? CT of the lumbar spine obtained on admission did show Compression Fracture of the L2 vertebral body involving the superior end-plate and resulting in ~30% height loss and ~4 mm of fracture fragment retropulsion, new since 03/12/2024 with MRI recommended to confirm acuity. Admitted to regular nursing floor for pain control. Also started on steroids consult placed to spine surgery. MRI was ordered for subsequent eval 08/30/2024; MRI obtained the day prior did not show acute-subacute compression fracture involving superior endplate of L2. No retropulsion. multilevel spondylotic changes as described with no high-grade spinal canal narrowing. Grade 2 degenerative anterolisthesis of L5 on S1. Neural foraminal narrowing is at most moderate on the left at L4-5, and moderate-advanced bilaterally at L5-S1. ? Patient was discharged home with pain medication as well as antispasmodics and follow-up set up with pain management as outpatient 2. Physical deconditioning/debility secondary to above ? Requested for PT OT eval and social media marketing specialist to assist with discharge planning 3.Hypertension ? Blood pressure controlled, home medications continued with dose adjustment as needed 4. Depression with anxiety ? Patient is on paroxetine 5. GERD ? Patient is on PPI 6.Class I obesity with BMI of 31 ? Complicating care weight loss advised 7. Hyponatremia ? Secondary to patient being on HCTZ we will continue with monitoring and is continued patient sodium levels continue to follow 8. Leukocytosis ? Etiology not clear we will continue monitor trend 9. Abnormal LFTs ? Ordered gallbladder ultrasound Prominent common bile duct which can be seen status post cholecystectomy. Similar appearance on CT study of 01/18/2024 10. DVT prophylaxis Only SCDs only for now pending evaluation by spine surgeon Time spent in the patient's overall evaluation,decision-making process, review of diagnostic data, adjustment of management, discussion with other providers, nursing nursing and ancillary staff involved in patient's care documentation, 35 Minutes Medications at Discharge Home Medications loratadine 10 mg tablet 10 mg PO DAILY PRN ALLERGIES 11/30/17 losartan 100 mg tablet 100 mg PO DAILY heart #30 tabs 11/30/17 paroxetine HCl 20 mg tablet 20 mg PO DAILY mood #30 tabs 11/30/17 albuterol sulfate 90 mcg/actuation aerosol inhaler 1 puff inhalation Q6H PRN SOB 07/25/21 cholecalciferol (vitamin D3) 25 mcg (1,000 unit) capsule (Vitamin D3) 25 mcg PO DAILY supplement 07/25/21 hydrochlorothiazide 25 mg tablet 25 mg PO DAILY blood pressure 07/25/21 multivitamin 1 tab PO DAILY SUPPLEMENT 12/26/21 dexlansoprazole 60 mg capsule,biphase delayed release (Dexilant) 60 mg PO BID reflux #120 caps 12/30/21 clonidine 0.3 mg/24 hr weekly transdermal patch 1 patch transdermal QWEEK 07/05/23 clonidine HCl 0.1 mg tablet 0.1 mg PO DAILY PRN high blood pressure 07/05/23 inclisiran 284 mg/1.5 mL subcutaneous syringe 284 mg subcut [id number] cholesterol 07/05/23 linaclotide 72 mcg capsule (Linzess) 72 mcg PO DAILY PRN constipation 07/05/23 carvedilol 6.25 mg tablet (Coreg) 6.25 mg PO BID #60 tabs 02/25/24 acetaminophen 500 mg tablet (Acetaminophen Extra Strength) 500 mg PO Q6H PRN fever or pain 08/28/24 latanoprost 0.005 % eye drops 1 drp ophthalmic (eye) QHS 08/28/24 meclizine 25 mg tablet 25 mg PO TID PRN PRN dizziness 08/28/24 naproxen 250 mg tablet 250 mg PO BID 08/28/24 prednisone 10 mg tablet 10 mg PO steroid 08/28/24 lidocaine 5 % topical patch 1 patch topical 2200 #30 ea 08/30/24 oxycodone 5 mg tablet 5 mg PO Q4H PRN PRN Pain Score 4-10 5 days #14 tabs 08/30/24 prednisone 20 mg tablet 20 mg PO BID #14 tabs 08/30/24 Physical Exam Narrative GENERAL: cooperative HEENT: Atraumatic; normocephalic EYES; Anicteric, Normal Conjunctiva NECK; supple, normal thyroid, RESPIRATORY: Diminished to auscultation CARDIOVASCULAR: Regular S1 S2, GI: soft, normoactive bowel sounds, : No Renal angle tenderness; EXTREMITIES: No edema, no clubbing, MUSCULOSKELETAL: no muscle wasting NEURO: Awake; no lateralizing signs. SKIN: No Rash PSYCH; Flat affect Weight / BMI Weight Weight: 80.739 kg Body Mass Index (BMI) 33.1 ABG / Lab / Microbiology Data 08/30/24 06:00 08/30/24 06:00 Laboratory: Laboratory Results - last 24 hr 08/30/24 06:00: WBC 14.1 H, RBC 4.34, Hgb 13.2, Hct 38.7, MCV 89.2, MCH 30.4, MCHC 34.1, RDW Std Deviation 39.4, RDW Coeff of Patrizia 12.2, Plt Count 284, MPV 10.3, Immature Gran % (Auto) 1.100 H, Neut % (Auto) 83.6 H, Lymph % (Auto) 9.8 L, [place] % (Auto) 5.4, Eos % (Auto) 0.0, Baso % (Auto) 0.1, Absolute Neuts (auto) 11.8 H, Absolute Lymphs (auto) 1.38, Nucleated RBC % 0, Sodium 130 L, Potassium 4.6, Chloride 101, Carbon Dioxide 18.0 L, Anion Gap 11, BUN 33 H, Creatinine 1.38 H, Estim Creat Clear Calc 28.69 L, Est GFR (MDRD) Non-Af 38 L, BUN/Creatinine Ratio 23.8 H, Glucose 168 H, Calcium 9.5, Phosphorus 3.2, Magnesium 2.3 H Radiography Diagnostic Testing: Radiology Impression Abdomen Ultrasound 08/29/24 09:52 IMPRESSION: Prominent common bile duct which can be seen status post cholecystectomy. Similar appearance on CT study of 01/18/2024 Reading [facility] 08/29/24 22:11 IMPRESSION: Acute-subacute compression fracture involving superior endplate of L2. No retropulsion. Multilevel spondylotic changes as described with no high-grade spinal canal narrowing. Grade 2 degenerative anterolisthesis of L5 on S1. Neural foraminal narrowing is at most moderate on the left at L4-5, and moderate-advanced bilaterally at L5-S1. Reading Location: [id number] Instructions Discharge Activity: Return to Normal Activity Call your doctor if you observe: Fever of 101 or Higher, Shortness of breath, Fainting spells and Chest pain DC O2, CPAP, BIPAP Needs Home O2 Discharge instructions: No Meaningful Use Info Meaningful Use Meaningful Use Diagnoses (Choose all that apply): None applicable Discharge Plan Admission Admit Date/Time: 08/28/24 22:03 Attending Provider: Kal Gomez Primary Care Provider: Brandon March Chi Consulting Providers: Kal Wright; Dickson Viveros Discharge Orders/Prescriptions Prescriptions: New lidocaine 5 % Adhesive Patch,Medicated 1 patch topical 2199 Qty: 30 0RF Protocol: *Topical Application Instructions APPLICATION INSTRUCTIONS: affected area oxycodone 5 mg Tablet 5 mg PO Q4H PRN PRN (Reason: Pain Score 4-10) 5 Days Qty: 14 0RF prednisone 20 mg tablet 20 mg PO BID Qty: 14 0RF Continued dexlansoprazole [Dexilant] 60 mg capsule,biphase delayed releas 60 mg PO BID Qty: 120 4RF clonidine 0.3 mg/24 hr patch weekly 1 patch transdermal QWEEK Patient Comments: Patient changes patch on Sundays. Linzess 72 mcg capsule 72 mcg PO DAILY PRN (Reason: constipation) inclisiran 284 mg/1.5 mL syringe 284 mg subcut [id number] Rx Instructions: due in september carvedilol [Coreg] 6.25 mg tablet 6.25 mg PO BID Qty: 60 11RF Rx Instructions: must administer with a meal/food multivitamin Tablet 1 tab PO DAILY paroxetine HCl 20 MG tablet 20 mg PO DAILY Qty: 30 0RF losartan 100 MG tablet 100 mg PO DAILY Qty: 30 0RF loratadine 10 MG tablet 10 mg PO DAILY PRN (Reason: ALLERGIES) 0RF hydrochlorothiazide 25 mg Tablet 25 mg PO DAILY albuterol sulfate 90 mcg/actuation Hfa Aerosol Inhaler 1 puff INHALATION Q6H PRN (Reason: SOB) cholecalciferol (vitamin D3) [Vitamin D3] 25 mcg (1,000 unit) Capsule 25 mcg PO DAILY clonidine HCl 0.1 mg tablet 0.1 mg PO DAILY PRN (Reason: high blood pressure) latanoprost 0.005 % drops 1 drp ophthalmic (eye) QHS meclizine 25 mg tablet 25 mg PO TID PRN PRN (Reason: dizziness) prednisone 10 mg tablet 10 mg PO Patient Comments: TAKE 3 TABLETS BY MOUTHIONCE DAILY FOR 2 DAYS THEN 2 FOR 2 DAYS THEN 1 FOR 2 DAYS THEN STOP naproxen 250 mg tablet 250 mg PO BID acetaminophen [Acetaminophen Extra Strength] 500 mg tablet 500 mg PO Q6H PRN (Reason: fever or pain) Discontinued baclofen 10 mg tablet 10 mg PO QHS Referrals / Follow Up: Cal Nino MD [Med Staff - Active Staff] - Within 1 Week Brandon March Chi, MD [Primary Care Provider] - Within 2 Weeks Disposition Disposition (needs filled in before D/C Order can be placed): Home, Self Care Charges/Coding Visit Charges Inpatient E&M: 18931 Disch Hosp >30min
--- NOTE | 2024-08-30 09:35 | CASEMGMT ---
FABIOLA CM into pt room. Discussed therapy evals. Pt states she feels she is weaker than normal but does not feel she needs any therapy at home or outpt. Pt states she just completed vestibular therapy at [facility] and is continuing those exercises at home. Pt states her is able to care for and she has a walker, cane and walking stick at home. Pt main concern is her pain and she states she will see pain mgmt on an outpt basis. Pt denies any homegoing needs at this time. Pt aware that should she change her mind, she can ask for the CM.
[2024-08-30] MEDS: Ensure Plus High Protein 120 ML LIQUID PO ×4 (09:59→21:41)
[2024-08-30] MEDS: Cholecalciferol (VIT D3) 25 MCG TABLET (1,000 UNITS) PO (09:59)
[2024-08-30 10:34] LABS: AST(SGOT) 83 U/L (<=31); Alanine Aminotransfer ALT/SGPT 97 U/L (<=34); Albumin, Serum 3.5 g/dL (3.4-4.8); Alkaline Phosphatase 146 U/L (35-104); Bilirubin, Direct 0.35 mg/dL (0.00-0.30); Globulin 2.1 g/dL (2.2-4.2)
--- NOTE | 2024-08-30 17:05 | NURSING ---
original plan was for patient to be discharged today. pt verbalized concerns stating she was worried about falling again at home and that her pain might get out of control. She stated her couldn't help her get up if she fell again. Dr. Gomez notified of patients concerns. physical therapy worked with patient and pt still not thinking she is able to go home. Dr. Gomez notified. Will reevaluate tomorrow.
--- NOTE | 2024-08-30 17:25 | PCM.PN.HOSP ---
Reason for Visit Chief Complaint: Fall x 2 this week. Subjective Subjective Patient was discharged earlier on in the day however she declined going home stating she felt she was not ready. Objective Data Objective Data Vital Signs: Vital Signs Temp Pulse Resp BP Pulse Ox O2 Del Method 97.9 F 62 14 134/61 H 96 Room Air 08/30/24 15:00 08/30/24 15:06 08/30/24 15:00 08/30/24 15:37 08/30/24 15:00 08/30/24 11:35 Oxygen Delivery Method Room Air Weight: 80.739 kg Body Mass Index (BMI) 33.1 Intake & Output: Intake and Output for Last 24 Hours 08/28/24 08/29/24 08/30/24 23:59 23:59 23:59 Intake Total 1000 / 1000 480 / 480 Output Total 500 / 500 Balance 500 / 500 480 / 480 Lab / Micro Data 08/31/24 06:05 08/31/24 06:05 Labs: Laboratory Results - last 24 hr 08/30/24 06:00: WBC 14.1 H, RBC 4.34, Hgb 13.2, Hct 38.7, MCV 89.2, MCH 30.4, MCHC 34.1, RDW Std Deviation 39.4, RDW Coeff of Patrizia 12.2, Plt Count 284, MPV 10.3, Immature Gran % (Auto) 1.100 H, Neut % (Auto) 83.6 H, Lymph % (Auto) 9.8 L, [place] % (Auto) 5.4, Eos % (Auto) 0.0, Baso % (Auto) 0.1, Absolute Neuts (auto) 11.8 H, Absolute Lymphs (auto) 1.38, Nucleated RBC % 0, Sodium 130 L, Potassium 4.6, Chloride 101, Carbon Dioxide 18.0 L, Anion Gap 11, BUN 33 H, Creatinine 1.38 H, Estim Creat Clear Calc 28.69 L, Est GFR (MDRD) Non-Af 38 L, BUN/Creatinine Ratio 23.8 H, Glucose 168 H, Calcium 9.5, Phosphorus 3.2, Magnesium 2.3 H, Total Bilirubin 0.72, Direct Bilirubin 0.35 H, AST 83 H, ALT 97 H, Alkaline Phosphatase 146 H, Total Protein 5.6 L, Albumin 3.5, Globulin 2.1 L Radiography Diagnostic Testing: Radiology Impression Abdomen Ultrasound 08/29/24 09:52 IMPRESSION: Prominent common bile duct which can be seen status post cholecystectomy. Similar appearance on CT study of 01/18/2024 Reading Location: [facility] Physical Exam Narrative GENERAL: cooperative HEENT: Atraumatic; normocephalic EYES; Anicteric, Normal Conjunctiva NECK; supple, normal thyroid, RESPIRATORY: Diminished to auscultation CARDIOVASCULAR: Regular S1 S2, GI: soft, normoactive bowel sounds, : No Renal angle tenderness; EXTREMITIES: No edema, no clubbing, MUSCULOSKELETAL: no muscle wasting NEURO: Awake; no lateralizing signs. SKIN: No Rash PSYCH; Flat affect Assessment & Plan Assessment/Plan (1) Compression fracture of L2: QUALIFIERS: Encounter type: initial encounter Qualified Code(s): S32.020A - Wedge compression fracture of second lumbar vertebra, initial encounter for closed fracture (2) Fall: QUALIFIERS: Encounter type: initial encounter Qualified Code(s): W19.XXXA - Unspecified fall, initial encounter (3) Intractable back pain: PLAN: Plan Patient is an 84-year-old lady admitted with fall days prior to admission who presented to the emergency department with difficulty with ambulation as well as back pain. Admitted to regular nursing floor for further management 1. Fall with intractable back pain ? CT of the lumbar spine obtained on admission did show Compression Fracture of the L2 vertebral body involving the superior end-plate and resulting in ~30% height loss and ~4 mm of fracture fragment retropulsion, new since 03/12/2024 with MRI recommended to confirm acuity. Admitted to regular nursing floor for pain control. Also started on steroids consult placed to spine surgery. MRI was ordered for subsequent eval 08/30/2024; MRI obtained the day prior did not show acute-subacute compression fracture involving superior endplate of L2. No retropulsion. multilevel spondylotic changes as described with no high-grade spinal canal narrowing. Grade 2 degenerative anterolisthesis of L5 on S1. Neural foraminal narrowing is at most moderate on the left at L4-5, and moderate-advanced bilaterally at L5-S1. ? Patient was discharged home with pain medication as well as antispasmodics and follow-up set up with pain management as outpatient ? 08/30/2024; Patient was discharged earlier on in the day however she declined going home stating she felt she was not ready. 2. Physical deconditioning/debility secondary to above ? Requested for PT OT eval and social insurance administrator to assist with discharge planning 3.Hypertension ? Blood pressure controlled, home medications continued with dose adjustment as needed 4. Depression with anxiety ? Patient is on paroxetine 5. GERD ? Patient is on PPI 6.Class I obesity with BMI of 31 ? Complicating care weight loss advised 7. Hyponatremia ? Secondary to patient being on HCTZ we will continue with monitoring and is continued patient sodium levels continue to follow 8. Leukocytosis ? Etiology not clear we will continue monitor trend 9. Abnormal LFTs ? Ordered gallbladder ultrasound Prominent common bile duct which can be seen status post cholecystectomy. Similar appearance on CT study of 01/18/2024 10. DVT prophylaxis Only SCDs only for now pending evaluation by spine surgeon Time spent in the patient's overall evaluation,decision-making process, review of diagnostic data, adjustment of management, discussion with other providers, nursing nursing and ancillary staff involved in patient's care documentation, 35 Minutes Charges/Coding Visit Charges Inpatient E&M: 26835 Subs Hosp L2 Reason for DC delay: Pt / family delay
[2024-08-30] MEDS: Latanoprost 0.005% 1 Bottle 1 DRP OPHTHALMIC (21:41)
[2024-08-30] MEDS: Lidocaine 5% Patch 1 PATCH TOPICAL (21:41)
[2024-08-31] MEDS: 0.9% Saline Lock 10 ML Syringe IV ×3 (05:35→13:06)
[2024-08-31 06:00] VITALS: BMI 31.1
[2024-08-31 06:10] VITALS: BP 195/105; PULSE 64; RESP 16; TEMP 36.3; O2SAT 94
[2024-08-31 06:24] LABS: Hematocrit 39.5 % (37-47); Hemoglobin 14.0 g/dL (12.0-15.0); Immature Granulocytes Count 0.160 X10^3/uL (0.0-0.0); Mean Corp Hgb Conc 35.4 g/dL (32-36); Mean Corpuscular Volume 87.6 fL (81-99); Mean Platelet Vol. 9.7 fl (6.2-12.0); NRBC Flagged by Analyzer 0 % (0-5); Platelet Count 365 K/mm3 (150-450); RBC Distribution Width CV 12.4 % (11.6-14.6); RBC Distribution Width SD 39.6 fl (35.1-43.9); Red Blood Count 4.51 M/mm3 (4.2-5.4); White Blood Count 15.9 K/mm3 (4.4-11.0)
[2024-08-31 07:06] LABS: Anion Gap 12 (5-15); BUN 41 mg/dL (4-19); BUN/Creat Ratio 34.0 RATIO (10-20); Calcium,Total 10.0 mg/dL (7.6-11.0); Carbon Dioxide 19.0 mmol/L (21.0-32.0); Chloride 103 mmol/L (98-108); Estimated Creatinine Clearance 31.64 ml/min (50-250); Glucose 161 mg/dL (70-99); Potassium 4.7 mmol/L (3.3-5.1)
[2024-08-31 07:33] VITALS: BP 191/82; PULSE 66; RESP 16; TEMP 36.6; O2SAT 97
[2024-08-31] MEDS: Ensure Plus High Protein 120 ML LIQUID PO (07:42)
[2024-08-31] MEDS: Cholecalciferol (VIT D3) 25 MCG TABLET (1,000 UNITS) PO (07:42)
[2024-08-31 14:00] VITALS: BP 133/68; PULSE 55; RESP 15; TEMP 36.6; O2SAT 95
== END 2024-08-31 16:41 | disposition home or self-care (01) ==
LOC: ED 21:22 → MS3 22:15
PROVIDERS: Physician Assistant; Admitting Provider Internal Medicine; Emergency Provider Emergency Medicine; PCP Family Medicine Geriatric Medicine; Visit Provider Internal Medicine
DX: S32.020A Wedge compression fracture of second lumbar vertebra, initial encounter for closed fracture (principal); I69.359 Hemiplegia and hemiparesis following cerebral infarction affecting unspecified side; N18.31 Chronic kidney disease, stage 3a; E87.1 Hypo-osmolality and hyponatremia; Z79.52 Long term (current) use of systemic steroids; I12.9 Hypertensive chronic kidney disease with stage 1 through stage 4 chronic kidney disease, or unspecified chronic kidney disease; K21.9 Gastro-esophageal reflux disease without esophagitis; S50.311A Abrasion of right elbow, initial encounter; W01.0XXA Fall on same level from slipping, tripping and stumbling without subsequent striking against object, initial encounter; R26.89 Other abnormalities of gait and mobility; G89.29 Other chronic pain; E78.00 Pure hypercholesterolemia, unspecified; M79.7 Fibromyalgia; S50.312A Abrasion of left elbow, initial encounter; D72.829 Elevated white blood cell count, unspecified; Z79.899 Other long term (current) drug therapy; T50.905A Adverse effect of unspecified drugs, medicaments and biological substances, initial encounter; E66.811 Obesity, class 1; Z68.32 Body mass index [BMI] 32.0-32.9, adult; K58.1 Irritable bowel syndrome with constipation; F41.9 Anxiety disorder, unspecified; F32.A Depression, unspecified
CPT/HCPCS: 36415; 72131; 72148; 76705; 80048; 80053; 80076; 81001; 83735; 84100; 84443; 85025; 94668; 96374; 96375; 96376; 97116; 97162; 97166; 97530; 97535; 99221; 99285; A4216; G0378; J2405

== ENCOUNTER → 2024-09-26 | Outpatient (CLI) | payer MEDICARE, OTHER, SELFPAY ==
[2024-09-26 13:40] LABS: AST(SGOT) 21 U/L (<=31); Alanine Aminotransfer ALT/SGPT 23 U/L (<=34); Albumin, Serum 3.6 g/dL (3.4-4.8); Alkaline Phosphatase 175 U/L (35-104); Anion Gap 11 (5-15); BUN 22 mg/dL (4-19); BUN/Creat Ratio 21.1 RATIO (10-20); Calcium,Total 10.3 mg/dL (7.6-11.0); Carbon Dioxide 20.1 mmol/L (21.0-32.0); Chloride 106 mmol/L (98-108); Globulin 2.2 g/dL (2.2-4.2); Glucose 111 mg/dL (70-99); Potassium 4.3 mmol/L (3.3-5.1)
== END | disposition home or self-care (01) ==
LOC: LAB 12:39
PROVIDERS: PCP Family Medicine Geriatric Medicine; Referring Provider Family Medicine Geriatric Medicine; Visit Provider Family Medicine Geriatric Medicine
DX: I10 Essential (primary) hypertension (principal)
CPT/HCPCS: 36415; 80053

== ENCOUNTER → 2024-10-21 | Outpatient (CLI) | payer MEDICARE, OTHER, SELFPAY ==
--- NOTE | 2024-10-21 15:08 | VDLE_ITS ---
Reason For Study Reason For Study: LLE Edema RIGHT LEFT CFV is compressible, spontaneous, phasic, competent GSV is normal. and demonstrates normal augmentation. CFV is compressible, spontaneous, phasic, competent, Procedure and demonstrates normal augmentation. This is a venous duplex using B-mode, color flow and FV Lateral is compressible, spontaneous, phasic and spectral Doppler. demonstrates normal augmentation. Exam performed in department. FV Medial is dilated and NONCOMPRESSIBLE with no flow The exam was diagnostic. visualized. A preliminary report was called and/or faxed to Dr. Acute deep vein thrombosis is noted in the POP V. It [facility]. is dilated and NONCOMPRESSIBLE. Acute deep vein thrombosis is noted in the T/P Trunk. It is dilated and NONCOMPRESSIBLE. Acute deep vein thrombosis is noted in the PTV. It is dilated and NONCOMPRESSIBLE. Acute deep vein thrombosis is noted in the Per V. It is dilated and NONCOMPRESSIBLE. VL/Venous Duplex US, Unilateral Interpretation Summary Acute deep vein thrombosis noted in one of duplicate femoral veins, popliteal v ein, tibioperoneal trunk vein, posterior tibial vein, peroneal vein. Ordering Physician: Brandon March Chi Referring Physician: Brandon March Chi Performed By: Darrian Mcnamara RVT
--- OUTSIDE RECORDS SUMMARY | 2024-10-21 22:35 | XMS RPT_ITS | CCD ---
Author Organization [facility] Care Team Providers Care Shed Workers Supervisor Name Role Phone Now Nurse Unavailable Unavailable Now Nurse Unavailable Unavailable Now Nurse Unavailable Unavailable Dr. Brandon March Chi Primary Care Provider [phone] Joaquim, Dr. Brandon Wilks Referring Provider Friend, Dr. Andino Attending Provider [phone] FriendDr. Andino Other Provider [phone] Joaquim, Dr. Brandon Wilks Primary Care Provider Joaquim, Dr. Brandon Wilks Referring Provider FriendDr. Andino Attending Provider [phone] Jhon PUBLIC RELATIONS OFFICER, PUBLIC RELATIONS OFFICER-C Crissy Vance Attending Provider Joaquim, Dr. Brandon Wilks Primary Care Provider Lory Sahni Attending Provider Unavailable Joaquim, Dr. Brandon Wilks Referring Provider FriendDr. Andino Attending Provider [phone] Marissa Howard Attending Provider Unavailable Dr. Bennie Landrum Attending Provider JoaquimDr. Brandon donald Chi Primary Care Provider Joaquim, Dr. Brandon Wilks Referring Provider FriendDr. Andino Attending Provider [phone] NAIMA Kemp Attending Provider Dr. Bennie Landrum Attending Provider [phone] NAIMA Kemp Referring Provider Joaquim, Dr. Brandon Wilks Primary Care Provider Joaquim, Dr. Brandon Wilks Referring Provider Deborah MCNAMARA, PA Jazmyn Vance Attending Provider Dr. Brandon March Chi Primary Care Provider Dr. Albert Ward Referring Provider Dr. Albert Ward Other Provider Shiva PUBLIC RELATIONS OFFICER-C Jeannine Renteria Attending Provider Joaquim CALVILLO, Dr. Brandon Wilks Primary Care Provider [phone] JaimeeFlorence ROB, Dr. Matias Emergency Provider de Ovidio [...] Provider David CALVILLO, Dr. Gibson Other Provider [facility] PUBLIC RELATIONS OFFICER-C, Son Aguilar Other Provider Deborah MCNAMARA, Jazmyn Vance Other Provider Dr. Macario Allen DO Other Provider Dr. Cal Billings MD Attending Provider Caleb CALVILLO, Dr. Saez Attending Provider Dr. Luan Guzman MD Attending Provider Dr. Macario Allen DO Attending Provider Awa CALVILLO, Dr. Cal Galeano Other Provider Joaquim CALVILLO, Dr. Brandon Chi Referring Provider Beena CALVILLO, Dr. Baldwin Attending Provider [phone] Beena CALVILLO, Dr. Baldwin Referring Provider Joaquim CALIVLLO, Dr. Brandon Wilks Attending Provider Awa CALVILLO, Dr. Cal Galeano Referring Provider Joaquim CALVILLO, Dr. Brandon Wilks Primary Care Provider Joaquim CALVILLO, Dr. Brandon Wilks Referring Provider Humberto CALVILLO, Dr. Roland Attending Provider Humberto CALVILLO, Dr. Roland Referring Provider Joaquim CALVILLO, Dr. Brandon Wilks Attending Provider Corazon ROB, Dr. Coleman Emergency Provider de Ovidio DO, Dr. Bowden Admit Provider Unavail able de Ovidio DO, Dr. Bowden Attending Provider Unav ailable de Ovidio DO, Dr. Bowden Other Provider Unavail able Jason CALVILLO, Dr. Bowden Attending Provider Unavailjoan Viveros MD, Dr. Forman Other Provider Jason CALVILLO, Dr. Bowden Other Provider Unavailable Juancarlos CALVILLO, Dr. Calvin Other Provider Joaquim, Brandon Chi Primary Care Unavailable Belal, Farouk Attending Unavailable Kal Wright Admitting Unavailable Cal Billings Attending Unavailable Joaquim, Brandon Chi Primary Care Unavailable Kal Wright Consulting Unavailable Amro, Ahmed Consulting Unavailable Jaime, Bárbara Consulting Unavailable Dhruv, Moisés Consulting Unavailable Lucita, Hollywood Consulting Unavailable Belal, Farouk Consulting Unavailable Luan Guzman Consulting Unavailable Oswaldoatayler, Nagapradevignesh Consulting Unavailian e Satti, Kevin Consulting Unavailable David, Arthur Consulting Unavailable Son Garrido NP Consulting Unavailable Deborah MCNAMARA, Jazmyn Vance Consulting Unavail able Macario Allen Consulting Unavailable Cal Billings Consulting Unavailable Kal Wright Attending Unavailable Luan Guzman Attending Unavailable Joaquim, Brandon Chi Primary Care Unavailable Joaquim, Brandon Chi Referring Unavailable Joaquim, Brandon Chi Primary Care Unavailable Joaquim, Brandon Chi Attending Unavailable Joaquim, Brandon Chi Referring Unavailable Joaquim, Brandon Chi Primary Care Unavailable Denny Hargrove Referring Unavailable Denny Hargrove Attending Unavailable Joaquim, Brandon Chi Referring Unavailable Joaquim, Brandon Chi Primary Care Unavailable Joaquim, Brandon Chi Attending Unavailable Joaquim, Brandon Chi Referring Unavailable Luan Paul Attending Unavailable Joaquim, Brandon Chi Primary Care Unavailable Joaquim, Brandon Chi Attending Unavailable Joaquim, Brandon Chi Primary Care Unavailable Joaquim, Brandon Chi Referring Unavailable Joaquim, Brandon Chi Referring Unavailable Joaquim, Brandon Chi Attending Unavailable Joaquim, Brandon Chi Primary Care Unavailable Cal Billings Referring Unavailable Joaquim, Brandon Chi Primary Care Unavailable Joaquim, Brandon Chi Attending Unavailable Joaquim, Brandon Chi Primary Care Unavailable Cal Billings Attending Unavailable Kal Wright Admitting Unavailable Kal Wright Consulting Unavailable Linda Lee Consulting Unavailable Bárbara Sandoval Consulting Unavailable Moisés Bartlett Consulting Unavailable Bennie Landrum Consulting Unavailable Se Ellis Consulting Unavailable Luan Guzman Consulting Unavailable Ronny Wilson Consulting UnavailKevin Villeda Consulting Unavailable Arthur Hernandez Consulting Unavailable Hema PUBLIC RELATIONS OFFICER, Son Aguilar Consulting Unavailable Deborah MCNAMARA, Jazmyn Vance Consulting Unavail able Macario Allen Consulting Unavailable Kal Gomez Attending Unavailable Kal Wright Admitting Unavailable Kal Wright Consulting Unavailable Joaquim, Brandon Chi Primary Care Unavailable Dickson Viveros Consulting Unavailable Joaquim, Brandon Chi Primary Care Unavailable Joaquim, Brandon Chi Attending Unavailable Joaquim, Brandon Chi Referring Unavailable Marixa Bauer Consulting Unavailable Joaquim, Brandon Chi Referring Unavailable Joaquim, Brandon Chi Attending Unavailable Joaquim, Brandon Chi Primary Care Unavailable Luan Guzman Attending Unavailable Kal Wright Attending Unavailable Kal Wright Consulting Unavailable Kal Wright Admitting Unavailable Joaquim, Brandon Chi Primary Care Unavailable Luan Paul Referring Unavailable Luan Paul Attending Unavailable Joaquim, Brandon Chi Primary Care Unavailable Joaquim, Brandon Chi Referring Unavailable Joaquim, Brandon Chi Attending Unavailable Joaquim, Brandon Chi Primary Care Unavailable Kal Gomez Attending Unavailable Kal Gomez Consulting Unavailable Dickson Viveros Consulting Unavailable Macario Allen Attending Unavailable Allergies Allergy Classification Reported Allergen(s) Allergy Type Date of Onset Reaction(s) Facility (3 sources) Adhesive bandage; Translations: [ADHESIVE BANDAGES] allergy to substance 09-01-2010 [facility] Work Phone: (3 sources) amLODIPine Drug Allergy 11-29-2016 [facility] Work Phone: (6 sources) Enalapril Drug Allergy 09-01-2010 [facility] Work Phone: (20 sources) Minoxidil Drug Allergy 11-29-2016 Other [facility] Work Phone: Comment on above: SWELLING ANKLES, FUNK DS SHAKE (20 sources) valsartan Drug Allergy 11-29-2016 Rash [facility] Work Phone: (19 sources) Adhesive Tape; Translations: [adhesive tape] Allergy to substance 06-07-2018 Other [facility] Comment on above: BLISTERS (18 sources) amLODIPine Drug Allergy 06-07-2018 Other [facility] Comment on above: DIZZY, SHAKES (18 sources) Enalaprilat Drug Allergy 06-07-2018 Other [facility] Comment on above: DRY COUGH (18 sources) Risedronate Drug Allergy 06-07-2018 Other [facility] (1 source) amLODIPine Drug Allergy 08-28-2024 [facility] (1 source) Enalaprilat Drug Allergy 08-28-2024 [facility] (1 source) Minoxidil Drug Allergy 08-28-2024 [facility] (1 source) Risedronate Drug Allergy 08-28-2024 [facility] (1 source) valsartan Drug Allergy 08-28-2024 [facility] Medications Current Medications Medication Drug Class(es) Dates Sig (Normalized) Sig (Original) acetaminophen 500 mg oral tablet (20 sources) Start: 08-28-2024 take 1 tablet by mouth every six hours as needed for pain Acetaminophen (Acetaminophen Extra Strength) 500 mg tablet Active 500 mg PO EVERY 6 HOURS as needed for fever or pain August 28, 2024 12:00am Start: 11-30-2017 End: 08-28-2024 take 2 tablets by mouth every six hours as needed for pain Acetaminophen 325 MG tablet Discontinued 650 mg PO EVERY 6 HOURS NEEDED as needed for Mild Pain (0-3/10)/Headache 0 November 30, 2017 12:00am August 28, 2024 10:53pm Start: 11-30-2017 take 650 mg by mouth every six hours as needed Acetaminophen Active 650 MG PO EVERY 6 HOURS NEEDED November 30, 2017 12:00am Albuterol Sulfate (17 sources) beta2-Adrenergic Agonist Start: 07-25-2021 take 1 [...] 2021 12:00am carvedilol 6.25 mg oral tablet (5 sources) alpha-Adrenergic Viraj, beta-Adrenergic Viraj Start: 02-25-2024 take 1 tablet by mouth [...] ug PO DAILY July 25, 2021 12:00am supplement Start: 04-09-2017 End: 11-30-2017 take 1 capsule by mouth every month Cholecalciferol (Vitamin D3) 50,000 unit capsule Discontinued 11833 U PO MONTHLY April 09, 2017 1:00am November 30, 2017 1:09pm SUPPLEMENT cloNIDine hydrochloride 0.1 mg oral tablet (20 [...] HCL TABS as directed CLONIDINE HCL TABS [id number] Albert MCNAMARA Dexlansoprazole (Dexilant) 60 mg capsule,biphase delayed releas (20 sources) Start: 12-30-2021 take 1 capsule by mouth twice daily Dexlansoprazole (Dexilant) 60 mg capsule,biphase delayed releas Active 60 mg PO TWICE A DAY 120 4 December 30, 2021 9:47am reflux Start: 12-30-2021 take 1 capsule by [facility] twice daily Dexlansoprazole (Dexilant) 60 mg capsule,biphase delayed releas Active 60 mg PO TWICE A DAY 120 December 30, 2021 9:47am Start: 12-30-2021 take 1 capsule by [facility] twice daily Dexlansoprazole (Dexilant) 60 mg capsule,biphase delayed releas Active 60 MG PO TWICE A DAY 120 December 30, 2021 9:47am Start: 12-30-2021 take 1 capsule by [facility] twice daily Dexlansoprazole (Dexilant) 60 mg capsule,biphase delayed releas Active 60 MG PO TWICE A DAY 120 December 30, 2021 8:47am Start: 08-10-2021 End: 12-30-2021 Dexlansoprazole (Dexilant) 6 0 mg capsule,biphase delayed releas Discontinued 60 mg PO TWICE A DAY 120 1 August 10, 2021 2:42pm December 30, 2021 [...] as needed hydroCHLOROthiazide 25 mg oral tablet (17 sources) Thiazide Diuretic Start: 07-25-2021 take 1 tablet by mouth once daily Hydrochlorothiazide 25 mg Tablet Active 25 mg PO DAILY July 25, 2021 12:00am blood pressure Inclisiran (5 sources) Start: 07-05-2023 Inclisiran 284 mg/1.5 mL syringe Active 284 mg SC every 6 months July 05, 2023 12:00am cholesterol due in september Start: 07-05-2023 Inclisiran 284 mg/1.5 mL syringe Active 284 mg SC every 6 months July 05, 2023 12:00am latanoprost 0.05 mg/ml ophthalmic solution (4 sources) Prostaglandin Analog Start: 08-28-2024 Latanoprost 0.005 % drops Active 1 NMA OPHTHALMIC AT BEDTIME August 28, 2024 12:00am lidocaine 0.05 mg/mg medicated patch (3 sources) Antiarrhythmic, Amide Local Anesthetic Start: 08-30-2024 Lidocaine 5 % Adhesive Patch,Medicated Active 1 NMA TOPICAL 2200 30 0 August 30, 2024 12:00am Please contact the information source for Protocol details. loratadine 10 mg oral tablet (18 sources) Start: 11-30-2017 take 1 tablet by mouth once daily as needed Loratadine 10 MG tablet Active 10 mg PO DAILY as needed for ALLERGIES 0 November 30, 2017 12:00am meclizine hydrochloride 25 mg oral tablet (9 sources) Antiemetic Start: 08-28-2024 take 1 tablet by mouth three times daily as needed for dizziness Meclizine 25 mg tablet Active 25 mg PO 3 TIMES DAILY NEEDED as needed for dizziness August 28, 2024 12:00am Start: 01-23-2024 End: 02-25-2024 take 1 tablet by mouth three times daily as needed Meclizine 25 mg Tablet Discontinued 25 mg PO 3 TIMES DAILY NEEDED as needed for Vertigo 15 5 0 January 23, 2024 1:00am February 25, 2024 11:59am Multivitamin preparation (20 sources) Start: 12-26-2021 take 1 tablet by mouth once daily Multivitamin Active 1 TABLET PO DAILY December 26, 2021 2:34pm Start: 12-26-2021 take 1 tablet by mariela once daily Multivitamin Active 1 TABLET PO [...] DAILY April 24, 2017 12:00am Multivitamin tablet (5 sources) Start: 12-26-2021 Multivitamin t ablet Active 1 {tbl} PO DAILY December 26, 2021 2:34pm SUPPLEMENT Start: 12-26-2021 Multivitamin t ablet Active 1 {tbl} PO DAILY December 26, 2021 2:34pm naproxen 250 mg oral tablet (4 sources) Nonsteroidal Anti-inflammatory Drug Start: 08-28-2024 take 1 tablet by mouth twice daily Naproxen 250 mg tablet Active 250 mg PO TWICE A DAY August 28, 2024 12:00am [place]-3 Fatty Acids-Vitamin E (Fish Oil) 1,000 mg Capsule (17 sources) Start: 07-25-2021 take 1 capsule by mouth twice daily [place]-3 Fatty Acids-Vitamin E (Fish Oil) 1,000 mg Capsule Active 1 CAP PO TWICE A DAY July 25, 2021 12:05pm Start: 07-25-2021 End: 01-11-2022 [place]-3 Fatty Acids-Vitamin E (Fish Oil) 1,000 mg Capsule Discontinued 1 NMA PO TWICE A DAY July 25, 2021 12:00am January 11, 2022 3:51pm Start: 07-25-2021 End: 01-11-2022 take 1 capsule by mouth twice daily [place]-3 Fatty Acids-Vitamin E (Fish Oil) 1,000 mg Capsule Discontinued 1 CAP PO TWICE A DAY July 25, 2021 12:00am January 11, 2022 3:51pm Start: 07-25-2021 End: 01-11-2022 take 1 capsule by mouth twice daily [place]-3 Fatty Acids-Vitamin E (Fish Oil) 1,000 mg Capsule Discontinued 1 CAP PO TWICE A DAY July 24, 2021 11:00pm January 11, 2022 2:51pm Start: 07-25-2021 take 1 capsule by [facility] twice daily [place]-3 Fatty Acids-Vitamin E (Fish Oil) 1,000 mg Capsule Active 1 CAP PO TWICE A DAY July 25, 2021 12:00am oxyCODONE hydrochloride 5 mg oral tablet (3 sources) Opioid Agonist Start: 08-30-2024 take 1 tablet by mouth every four hours as needed for pain Oxycodone 5 mg Tablet Active 5 mg PO EVERY 4 HOURS NEEDED as needed for Pain Score 4-10 14 5 0 August 30, 2024 Compression fracture of L2 vertebra PARoxetine hydrochloride 20 mg oral tablet (18 sources) Serotonin Reuptake Inhibitor Start: 11-30-2017 take 1 tablet by mouth once daily Paroxetine Hcl 20 MG tablet Active 20 mg PO DAILY 30 0 November 30, 2017 12:00am mood predniSONE 20 mg oral tablet (7 sources) Start: 08-30-2024 take 1 tablet by mouth twice daily Prednisone 20 mg tablet Active 20 mg PO TWICE A DAY 14 0 August 30, 2024 12:00am Start: 08-28-2024 Prednisone 10 mg tablet Active 10 mg PO August 28, 2024 12:00am steroid Completed/Discontinued Medications Medication Drug Class(es) Dates Sig (Normalized) Sig (Original) acetaminophen 325 mg / HYDROcodone bitartrate 5 mg oral tablet (18 sources) Opioid Agonist Start: 06-09-2018 End: 06-12-2018 Hydrocodone-Acetami nophen 1 TABLET tablet Discontinued 1 {tbl} PO EVERY 6 HOURS NEEDED as needed for Pain 10 3 0 June 09, 2018 12:00am June 11, 2018 12:00am June 12, 2018 12:08am Fracture of clavicle Start: 06-09-2018 End: 06-12-2018 take 1 tablet by mouth every six hours as needed Hydrocodone-Acetaminophen Discontinued 1 TABLET PO EVERY 6 HOURS NEEDED 10 3 June 09, 2018 12:00am June 12, 2018 12:08am acetaminophen 325 mg / oxyCODONE hydrochloride 5 mg oral tablet (18 sources) Opioid Agonist Start: 05-03-2017 End: 05-14-2017 Oxycodone-Acetaminophen 1 TABLET tablet Discontinued 1 - 2 {tbl} PO EVERY 4 HOURS NEEDED as needed for Pain 60 May 03, 2017 12:00am May 14, 2017 9:15am Status post total left knee replacement Presence of left artificial knee joint Start: 05-03-2017 End: 05-14-2017 take 1 tablet by mouth every four hours as needed Oxycodone-Acetaminophen Discontinued 1 - 2 TABLET PO EVERY 4 HOURS NEEDED 60 May 03, 2017 12:00am May 14, 2017 9:15am amLODIPine 2.5 mg oral tablet (6 sources) Dihydropyridine Calcium Channel Viraj Start: 09-01-2010 End: 06-15-2011 take 1 tablet by mouth twice daily AMLODIPINE BESYLATE 2.5 MG TABS One tablet by mouth twice daily AMLODIPINE BESYLATE [id number] Rayshawn Barth aspirin 81 mg delayed release oral tablet [...] TABS One tablet by mouth daily ASPIRIN [id number] Honey Casanova atenolol 25 mg oral tablet (6 sources) beta-Adrenergic Viraj Start: 09-01-2010 End: 11-29-2016 take 1 tablet by mouth once daily ATENOLOL 25 MG TABS One tablet by mouth daily ATENOLOL [id number] Albert MCNAMARA atorvastatin 40 mg oral tablet (18 sources) HMG-CoA Reductase Inhibitor Start: 11-08-2017 End: 11-08-2017 take 1 tablet by mouth at bedtime Atorvastatin 40 MG tablet Discontinued 40 mg PO AT BEDTIME 0 0 November 08, 2017 12:00am November 08, 2017 3:15pm baclofen 10 mg oral tablet (4 sources) gamma-Aminobutyric Acid-ergic Agonist Start: 08-28-2024 End: 08-30-2024 take 1 tablet by mouth at bedtime Baclofen 10 mg tablet Discontinued 10 mg PO AT BEDTIME August 28, 2024 12:00am August 30, 2024 8:39am chlorthalidone 50 mg oral tablet (19 sources) Thiazide-like Diuretic Start: 11-08-2017 End: 11-08-2017 Chlorthalidone 50 MG tablet Discontinued 25 mg PO DAILY 0 November 08, 2017 12:00am November 08, 2017 3:15pm Start: 11-08-2017 End: 11-08-2017 take 25 mg by mouth once daily Chlorthalidone Discontinued 25 MG PO DAILY November 08, 2017 12:00am November 08, 2017 3:15pm Start: 11-05-2017 take 25 mg by mouth once daily Chlorthalidone Active 25 MG PO DAILY November 05, 2017 9:40pm clopidogrel 75 mg oral tablet (18 sources) P2Y12 Platelet Inhibitor Start: 06-09-2018 End: 07-05-2023 take 1 tablet by mouth once daily Clopidogrel 75 MG tablet Discontinued 75 mg PO DAILY June 09, 2018 12:00am July 05, 2023 3:20pm dexlansoprazole 60 mg delayed release oral capsule (18 sources) Proton Pump Inhibitor Start: 04-09-2017 End: 08-10-2021 Dexlansoprazole (Dexilant) 60 mg capsule,biphase delayed releas Discontinued 60 mg PO NEEDED as needed for STOMACH DISCOMFORT April 09, 2017 1:00am August 10, 2021 2:43pm doxepin hydrochloride 25 mg oral capsule (18 sources) Tricyclic Antidepressant Start: 11-30-2017 End: 07-05-2023 take 1 capsule by mouth at bedtime as needed for sleep Doxepin 25 MG capsule Discontinued 25 mg PO AT BEDTIME as needed for SLEEP 0 November 30, 2017 12:00am July 05, 2023 3:19pm doxycycline monohydrate 100 mg oral capsule (20 sources) Tetracycline-class Drug Start: 07-25-2021 End: 12-30-2021 take 1 capsule by mouth twice daily Doxycycline Monohydrate 100 mg Capsule Discontinued 100 mg PO TWICE A DAY July 25, 2021 12:00am December 30, 2021 9:11am Start: 11-29-2016 DOXYCYCLINE MO NOHYDRATE 100 MG CAPS 1 capsule twice a day DOXYCYCLINE MONOHYDRATE [id number] Albert MCNAMARA Ergocalciferol (3 sources) Provitamin D2 Compound Start: 11-29-2016 VITAMIN D2 TABS as directed ERGOCALCIFEROL TABS [id number] Albert MCNAMARA fexofenadine hydrochloride 180 mg oral tablet (6 sources) Histamine-1 Receptor Antagonist Start: 09-01-2010 End: 11-29-2016 take 1 tablet by mouth once daily FEXOFENADINE HCL 180 MG TABS One tablet by mouth daily FEXOFENADINE HCL [id number] Honey Casanova icosapent ethyl 1000 mg oral capsule (14 sources) Start: 01-11-2022 End: 07-05-2023 Icosapent Ethyl (Vascepa) 1 gram capsule Discontinued 1 g PO DAILY January 11, 2022 1:00am July 05, 2023 3:19pm lactobacillus acidophilus [id number] unt oral capsule (14 sources) Start: 01-11-2022 End: 07-05-2023 Lactobacillus Acidophilus (Acidophilus) capsule Discontinued 100 NMA PO DAILY January 11, 2022 1:00am July 05, 2023 3:19pm Start: 01-11-2022 Lactobacillus Acidophilus (Acidophilus) capsule Active 100 MMU CELLS PO DAILY January 11, 2022 1:00am Start: 01-11-2022 Lactobacillus Acidophilus (Acidophilus) capsule Active 100 MMU CELLS PO DAILY January 11, 2022 12:00am linaclotide 0.072 mg oral capsule (20 sources) Guanylate Cyclase-C Agonist Start: 12-30-2021 End: 07-05-2023 take 1 capsule by mouth once daily Linaclotide (Linzess) 72 mcg capsule Discontinued 72 ug PO DAILY January 19, 2023 11:27am July 05, 2023 3:20pm losartan potassium 100 mg oral tablet (20 sources) Angiotensin 2 Receptor Viraj Start: 04-09-2017 End: 11-30-2017 take 1 tablet by mouth once daily Losartan 100 MG tablet Discontinued 100 mg PO DAILY November 08, 2017 12:00am November 08, 2017 3:15pm Start: 11-29-2016 LOSARTAN POTAS SIUM TABS as directed LOSARTAN POTASSIUM TABS [id number] Albert MCNAMARA metoprolol tartrate 25 mg oral tablet (5 sources) beta-Adrenergic Viraj Start: 01-23-2024 End: 02-25-2024 Metoprolol Tartrate 25 mg Tablet Discontinued 12.5 mg PO TWICE A DAY 30 30 January 23, 2024 1:00am February 25, 2024 12:16pm MULTIPLE VITAMIN (3 sources) Start: 11-29-2016 MULTIVITAMINS CAPS as directed MULTIPLE VITAMIN [id number] Albert MCNAMARA Multivitamin 1 EACH tablet (5 sources) Start: 04-24-2017 End: 12-26-2021 Multivitamin 1 EACH tablet Discontinued 1 NMA PO DAILY April 24, 2017 12:00am December 26, 2021 2:37pm SUPPLEMENT Start: 04-24-2017 End: 12-26-2021 Multivitamin 1 EACH tablet D iscontinued 1 NMA PO DAILY April 24, 2017 12:00am December 26, 2021 2:37pm OME[place]-3 FATTY ACIDS CPDR (6 sources) Start: 09-01-2010 take 1 tablet by mouth once daily OMEGA 3 CPDR One tablet by mouth daily OMEGA-3 FATTY ACIDS CPDR [id number] Honey Casanova Start: 09-01-2010 End: 11-29-2016 take 1 tablet by mouth once daily OMEGA 3 CPDR One tablet by mouth daily [place]MEGA-3 FATTY ACIDS CPDR [id number] Albert MCNAMARA omeprazole 20 mg delayed release oral capsule (6 sources) Proton Pump Inhibitor Start: 09-01-2010 End: 11-29-2016 take 1 tablet by mouth once daily OMEPRAZOLE 20 MG CPDR One tablet by mouth daily OMEPRAZOLE [id number] Honey Casanova ondansetron 4 mg disintegrating oral tablet (18 sources) Serotonin-3 Receptor Antagonist Start: 10-26-2013 End: [...] 09, 2017 1:00am November 08, 2017 9:53am CHOLESTEROL Start: 09-01-2010 End: 11-29-2016 LIVALO 2 MG TABS One tablet by mouth twice daily.12 PITAVASTATIN CALCIUM [id number] Albert MCNAMARA promethazine hydrochloride 25 mg oral tablet (18 sources) Phenothiazine Start: 05-03-2017 End: 05-14-2017 take 1 tablet by mouth every four hours as needed for nausea Promethazine 25 MG tablet Discontinued 25 mg PO EVERY 4 HOURS NEEDED as needed for Nausea 10 May 03, 2017 12:00am May 14, 2017 9:16am rosuvastatin calcium 10 mg oral tablet (14 sources) HMG-CoA Reductase Inhibitor Start: 01-11-2022 End: 07-05-2023 take 1 tablet by mouth once daily Rosuvastatin 10 mg tablet Discontinued 10 mg PO DAILY January 11, 2022 1:00am July 05, 2023 3:18pm sucralfate 1000 mg oral tablet (15 sources) Aluminum Complex Start: 08-10-2021 End: 01-11-2022 take 1 tablet by mouth before mealtime Sucralfate 1 gram tablet Discontinued 1 g PO before meals 90 0 August 10, 2021 12:00am January 11, 2022 3:53pm sulfamethoxazole 800 mg / trimethoprim 160 mg oral tablet (18 sources) Dihydrofolate Reductase Inhibitor Antibacterial, Sulfonamide Antimicrobial [...] 2017 2:56pm tiZANidine 2 mg oral tablet (19 sources) Central alpha-2 Adrenergic Agonist Start: 11-30-2017 [...] 6 HOURS as needed for pain 40 2 May 14, 2017 12:00am November 08, 2017 3:15pm Presence of left artificial knee joint 1-2 po q6h prn pain, start with 1 initially. PO Q6H PRN Start: 09-01-2010 End: 11-29-2016 TRAMADOL HCL 50 MG TABS As n eeded TRAMADOL HCL [id number] Honey Casanova valsartan 160 mg oral tablet (6 sources) Angiotensin 2 Receptor Viraj Start: 09-01-2010 End: 06-15-2011 take 1 tablet by mouth twice daily DIOVAN 160 MG TABS One tablet by mouth twice daily VALSARTAN [id number] Rayshawn Barth vitamin b 12 1 mg oral tablet (6 sources) Vitamin B12 Start: 09-01-2010 End: 11-29-2016 VITAMIN B-12 1000 MCG TABS IM as ordered CYANOCOBALAMIN [id number] Albert MCNAMARA zolpidem tartrate 10 mg oral tablet (6 sources) gamma-Aminobutyric Acid-ergic Agonist Start: 09-01-2010 End: 11-29-2016 take 1 tablet by mouth at bedtime AMBIEN 10 MG TABS One tablet by mouth at bedtime. ZOLPIDEM TARTRATE [id number] Honey Casanova Problems Active Problems Problem Classification Problem Date Documented Da te Episodic/Chronic Abdominal hernia (20 sources) Hiatal hernia; Translations: [Diaphragmatic hernia without obstruction or gangrene] Episodic Abdominal pain (19 sources) Abdominal pain; Translations: [Unspecified abdominal pain] 12-30-2021 Episodic Acute cerebrovascular disease (18 sources) Cerebrovascular accident; Translations: [Cerebral infarction, unspecified] 12-26-2021 Chronic Cardiac dysrhythmias (20 sources) Palpitations; Translations: [Palpitations] 12-26-2021 Episodic Cataract (18 sources) Cataract; Translations: [Unspecified cataract] 11-12-2017 Chronic Chronic kidney disease (15 sources) Chronic kidney disease stage 3A ; Translations: [Stage 3a chronic kidney disease] 12-26-2021 Chronic Diseases of white blood cells (15 sources) Leukocytosis; Translations: [Elevated white blood cell count, unspecified] Onset: 5 01-18-2024 Chronic Disorders of lipid metabolism (20 sources) Hyperlipidemia; Translations: [Hyperlipidemia, unspecified] Onset: 1 09-01-2010 Chronic E Codes: Adverse effects of medical drugs (9 sources) Adverse reaction to drug; Translations: [Adverse effect of unspecified drugs, medicaments and biological substances, initial encounter] Onset: 5 08-28-2024 Episodic E Codes: Fall (9 sources) Fall; Translations: [Unspecified fall, initial encounter] Onset: 5 08-28-2024 Episodic Esophageal disorders (20 sources) Gastroesophageal reflux disease; Translations: [Gastro-esophageal reflux disease without esophagitis] Onset: 4 03-22-2022 Chronic Esophageal disorders (16 sources) Esophagitis; Translations: [Esophagitis] Episodic Essential hypertension (20 sources) Hypertensive disorder; Translations: [Essential (primary) hypertension] Onset: 1 09-01-2010 Chronic Gastritis and duodenitis (16 sources) Gastritis; Translations: [Gastritis, unspecified, without bleeding] Episodic Hypertension with complications and secondary hypertension (8 sources) Hypertensive emergency; Translations: [Hypertensive emergency] Onset: 4 01-18-2024 Chronic Malaise and fatigue (9 sources) Asthenia; Translations: [Weakness] Onset: 5 08-28-2024 Episodic Nutritional deficiencies (14 sources) Disorder of vitamin B12; Translations: [Deficiency of other specified B group vitamins] 12-26-2021 Episodic Osteoarthritis (13 sources) Osteoarthritis of knee; Translations: [Osteoarthritis of joint of right shoulder region] 04-04-2013 Chronic Other and unspecified benign neoplasm (15 sources) Tubular adenoma of colon; Translations: [Benign neoplasm of colon, unspecified] 03-22-2022 Episodic Other and unspecified benign neoplasm (1 source) Benign neoplasm of colon, unspecified; Translations: [Benign neoplasm of colon] Episodic Other and unspecified benign neoplasm (14 sources) History of polyp of colon; Translations: [Personal history of colonic polyps] 03-22-2022 Episodic Other circulatory disease (6 sources) History of cerebrovascular accident; Translations: [Personal history of transient ischemic attack (TIA), and cerebral infarction without residual deficits] 01-31-2024 Episodic Other connective tissue disease (18 sources) History of total knee arthroplasty; Translations: [Presence of left artificial knee joint] 11-12-2017 Chronic Other fractures (8 sources) Compression fracture of L2; Translations: [Wedge compression fracture of second lumbar vertebra, initial encounter for closed fracture] 08-28-2024 Episodic Other fractures (2 sources) Wedge compression fracture of second lumbar vertebra, initial encounter for closed fracture; Translations: [Wedge compression fracture of second lumbar vertebra, initial encounter for closed fracture] Onset: Episodic Other gastrointestinal disorders (18 sources) Dysphagia; Translations: [Dysphagia, unspecified] 03-22-2022 Episodic Other gastrointestinal disorders (18 sources) Diarrhea; Translations: [Diarrhea, unspecified] 03-22-2022 Episodic Other gastrointestinal disorders (14 sources) Constipation alternates with diarrhea; Translations: [Other specified symptoms and signs involving the digestive system and abdomen] 03-22-2022 Episodic Other gastrointestinal disorders (14 sources) Constipation; Translations: [Constipation, unspecified] 03-22-2022 Episodic Other gastrointestinal disorders (4 sources) Other specified symptoms and signs involving the digestive system and abdomen; Translations: [Other symptoms involving digestive system] 03-22-2022 Episodic Other gastrointestinal disorders (6 sources) History of esophagitis; Translations: [Personal history of other diseases of the digestive system] 01-18-2024 Episodic Other gastrointestinal disorders (6 sources) History of gastritis; Translations: [Personal history of other diseases of the digestive system] 01-18-2024 Episodic Other injuries and conditions due to external causes (11 sources) Contusion; Translations: [Other injury of unspecified body region, initial encounter] 07-20-2022 Episodic Other injuries and conditions due to external causes (2 sources) Other injury of unspecified body region, initial encounter; Translations: [Contusion of unspecified site] 07-20-2022 Episodic Other nervous system disorders (8 sources) Walking disability; Translations: [Difficulty in walking, not elsewhere classified] 08-28-2024 Chronic Other nervous system disorders (1 source) Difficulty in walking, not elsewhere classified; Translations: [Difficulty in walking, not elsewhere classified] Onset: 5 Chronic Other nutritional; endocrine; and metabolic disorders (13 sources) Weight loss; Translations: [Abnormal weight loss] 03-22-2022 Episodic Other nutritional; endocrine; and metabolic disorders (5 sources) Weight decreased; Translations: [Abnormal weight loss] 03-22-2022 Episodic Residual codes; unclassified (18 sources) Family history of cancer of colon; Translations: [Family history of malignant neoplasm of digestive organs] 05-02-2021 Episodic Residual codes; unclassified (3 sources) Family history of malignant neoplasm of digestive organs; Translations: [Family history of malignant neoplasm of gastrointestinal tract] Episodic Spondylosis; intervertebral disc disorders; other back problems (9 sources) Backache; Translations: [Dorsalgia, unspecified] Onset: 5 08-28-2024 Episodic Superficial injury; contusion (18 sources) Hematoma of right hip region; Translations: [Contusion of right hip, initial encounter] 11-12-2017 Episodic Thyroid disorders (13 sources) Thyroid nodule; Translations: [Nontoxic single thyroid nodule] Onset: 5 06-03-2024 Chronic Comment on above: Patient 84-year-old female, euthyroid from an endocrine standpoint, who presents for surgical consultation related to the new finding of bilateral thyroid nodularity. She appears to be symptomatic from a compressive standpoint and enjoys a remarkably high functional status given her advanced age. We spent the majority of today's visit discussing the prevalence of thyroid nodules and their triage using a thyroid TI-RADS rating system. I shared that I would characterize both of her nodules I would recommend for biopsy as TI-RADS 4 based on their imaging characteristics. I then extended recommendation for biopsy which patient readily excepted. Procedures were undertaken in uncomplicated fashion during today's visit. Full details are given in the procedures section of this note. Lastly, showed the patient that I do not take much significance from her thyroid uptake scan showing some slightly decreased activity on the left and would not draw any conclusions until cytopathology has resulted. Unclassified (1 source) Low back pain, unspecified; Translations: [Low back pain, unspecified] Onset: Past or Other Problems Problem Classification Problem Date Documented Da te Episodic/Chronic Conditions associated with dizziness or vertigo (1 source) Dizziness and giddiness; Translations: [Dizziness and giddiness] Onset: 03-17-2024 Episodic Fluid and electrolyte disorders (7 sources) Hypokalemia; Translations: [Hypokalemia] Onset: 01-29-2024 01-18-2024 Episodic Fracture of lower limb (3 sources) Other fracture of upper and lower end of left fibula, initial encounter for closed fracture; Translations: [Other fracture of upper and lower end of left fibula, initial encounter for closed fracture] Onset: 01-31-2016 02-09-2016 Episodic Heart valve disorders (7 sources) Heart murmur; Translations: [Cardiac murmur, unspecified] Onset: 01-29-2024 07-05-2023 Episodic Nausea and vomiting (8 sources) Intractable nausea and vomiting; Translations: [Nausea [...] tendinitis of right shoulder] 08-17-2011 Episodic Other diseases of kidney and ureters [...] [Injury, unspecified] Onset: 11-29-2016 11-29-2016 Episodic Other lower respiratory disease (1 source) Solitary pulmonary nodule; Translations: [Solitary pulmonary nodule] Onset: 04-01-2024 Episodic Other non-traumatic joint disorders (3 sources) [...] conditions (not mental disorders or infectious disease) (10 sources) Abnormal result of cardiovascular function study, unspecified; Translations: [Protein level - finding] Onset: 09-01-2010 09-01-2010 Episodic Skin and subcutaneous tissue infections (3 sources) Cellulitis of forearm; Translations: [Cellulitis of left upper limb] Onset: 11-29-2016 11-29-2016 Episodic Results Test Name Value Interpretation Reference Range Facility Anion gap in Serum or Plasma Ordered By: Brandon March on 09-26-2024 Anion gap [Moles/Vol] 11 mmol/L 06-26 [facility] BUN/creatinine ratioOrdered By: Brandon March on 09-26-2024 Urea nitrogen/Creatinine [Mass ratio] 21.1 mg/mg High - [facility] Bilirubin, totalOrdered By: Brandon March on 09-26-2024 Bilirubin [Mass/Vol] 0.55 mg/dL 0.00-1.30 [facility] Carbon dioxide, total [Moles /volume] in Central venous bloodOrdered By: Brandon March on 09-26-2024 CO2 [Moles/Vol] 20.1 mmol/L Low 21.0-32.0 [facility] Chloride assayOrdered By: Dony March on 09-26-2024 Chloride [Moles/Vol] 106 mmol/L 98-108 [facility] Comprehensive Metabolic Prof ilon 09-26-2024 Albumin [Mass/Vol] 3.6 g/dL Normal 3.4-4.8 [facility] Comment on above: Performed By: #### L 500.4050 ####[facility] [address] [place], [address] Albumin/Globulin [Mass ratio] 1.7 {ratio} Normal 0.9-2.4 [facility] Comment on above: Performed By: #### L 500.4050 ####[facility] [address] [place], [address] ALK PHOS 175 U/L High 35-104 [facility] Comment on above: Performed By: #### L 500.4050 ####[facility] [address] [place], [address] ALT [Catalytic activity/Vol] 23 U/L Normal <=34 [facility] Comment on above: Performed By: #### L 500.4050 ####[facility] [address] [place], [address] AST [Catalytic activity/Vol] 21 U/L Normal <=31 [facility] Comment on above: Performed By: #### L 500.4050 ####[facility] [address] [place], [address] Bilirubin [Mass/Vol] 0.55 mg/dL Normal 0.00-1.30 [facility] Comment on above: Performed By: #### L 500.4050 ####[facility] [address] [place], [address] BUN/CRE 21.1 RATIO High 10-20 [facility] Comment on above: Performed By: #### L 500.4050 ####[facility] [address] [place], [address] Calcium [Mass/Vol] 10.3 mg/dL Normal 7.6-11.0 [facility] Comment on above: Performed By: #### L 500.4050 ####[facility] [address] [place], [address] Chloride [Moles/Vol] 106 mmol/L Normal 98-108 [facility] Comment on above: Performed By: #### L 500.4050 ####[facility] [address] [place], [address] CO2 [Moles/Vol] 20.1 mmol/L Low 21.0-32.0 [facility] Comment on above: Performed By: #### L 500.4050 ####[facility] [address] [place], [address] Creatinine [Mass/Vol] 1.04 mg/dL Normal 0.70-1.20 [facility] Comment on above: Performed By: #### L 500.4050 ####[facility] [address] [place], [address] GAP 11 Normal 5-15 [facility] Comment on above: Performed By: #### L 500.4050 ####[facility] [address] [place], [address] GFR/1.73 sq M.predicted among non-blacks MDRD (S/P/Bld) [Vol rate/Area] 53 mL/min/{1.73_m2} Low >60 [facility] Comment on above: Result Comment: mL/m in/1.73m2 CKD-EPI Creatinine Equation (2020) Performed By: #### L 500.4050 ####[facility] [address] [place], [address] Globulin (S) [Mass/Vol] 2.2 g/dL Normal 2.2-4.2 [facility] Comment on above: Performed By: #### L 500.4050 ####[facility] [address] [place], [address] Glucose [Mass/Vol] 111 mg/dL High 70-99 [facility] Comment on above: Performed By: #### L 500.4050 ####[facility] [address] [place], [address] Potassium [Moles/Vol] 4.3 mmol/L Normal 3.3-5.1 [facility] Comment on above: Performed By: #### L 500.4050 ####[facility] [address] [place], [address] Sodium [Moles/Vol] 137 mmol/L Normal 133-145 [facility] Comment on above: Performed By: #### L 500.4050 ####[facility] [address] [place], [address] T PROT 5.8 g/dL Low 5.9-8.4 [facility] Comment on above: Performed By: #### L 500.4050 ####[facility] [address] [place], [address] Urea nitrogen [Mass/Vol] 22 mg/dL High 4-19 [facility] Comment on above: Performed By: #### L 500.4050 ####[facility] [address] [place], [address] Glomerular filtration rate ( GFR) estimation/1.73 sq m using serum, plasma, or whole bOrdered By: Brandon March on 09-26-2024 GFR/1.73 sq M.predicted among non-blacks MDRD (S/P/Bld) [Vol rate/Area] 53 mL/min/{1.73_m2} Low >60 [facility] Comment on above: mL/min/1.73m2 CKD-EP I Creatinine Equation (2020) Laboratory - Chemistry and C hemistry - challengeOrdered By: Brandon March on 09-26-2024 AST [Catalytic activity/Vol] 21 U/L <32 [facility] Potassium measurement (mass/ volume)Ordered By: Brandon March on 09-26-2024 Potassium (Unsp spec) [Mass/Vol] 4.3 mmol/L 3.3-5.1 [facility] Serum creatinine measurement (mass/volume)Ordered By: Brandon March on 09-26-2024 Creatinine [Mass/Vol] 1.04 mg/dL 0.70-1.20 [facility] Serum globulin measurementOr dered By: Brandon March on 09-26-2024 Globulin (S) [Mass/Vol] 2.2 g/dL 2.2-4.[address] [facility] Serum glucose measurement (m ass/volume)Ordered By: Brandon March 09-26-2024 Glucose [Mass/Vol] 111 mg/dL High 70-99 [facility] Serum or plasma alanine livingston otransferase (ALT) measurementOrdered By: Brandon March 09-26-2024 ALT [Catalytic activity/Vol] 23 U/L <35 [facility] Serum or plasma albumin bacilio urement (mass/volume)Ordered By: Brandon March 09-26-2024 Albumin [Mass/Vol] 3.6 g/dL 3.4-4.8 [facility] Serum or plasma albumin/glob ulin mass ratioOrdered By: Brandon March 09-26-2024 Albumin/Globulin [Mass ratio] 1.7 {ratio} 0.9-2.4 [facility] Serum or plasma alkaline lavern sphatase measurementOrdered By: Brandon March 09-26-2024 ALP [Catalytic activity/Vol] 175 U/L High 35-104 [facility] Serum or plasma calcium bacilio urement (mass/volume)Ordered By: Brandon March 09-26-2024 Calcium [Mass/Vol] 10.3 mg/dL 7.6-11.0 [facility] Serum or plasma urea nitroge n measurement (mass/volume)Ordered By: Brandon March 09-26-2024 Urea nitrogen [Mass/Vol] 22 mg/dL High 4-19 [facility] Sodium levelOrdered By: Brandon March 09-26-2024 Sodium [Moles/Vol] 137 mmol/L 133-145 [facility] Total proteinOrdered By: Brandon March on 09-26-2024 Protein [Mass/Vol] 5.8 g/dL Low 5.9-8.4 [facility] Basic Metabolic Profile (BMP )on 09-01-2024 BUN Normal 4-19 [facility] Comment on above: Result Comment: Canc elled via OM: Order cancelled - Patient discharged Performed By: #### L 500.2500, L100.0100 ####[facility] [address] [place], [address] BUN/CRE Normal 10-20 [facility] Comment on above: Result Comment: Canc elled via OM: Order cancelled - Patient discharged Performed By: #### L 500.2500, L100.0100 ####[facility] [address] [place], [address] Calcium Normal 7.6-11.0 [facility] Comment on above: Result Comment: Canc elled via OM: Order cancelled - Patient discharged Performed By: #### L 500.2500, L100.0100 ####[facility] [address] [place], [address] CL Normal 98-108 [facility] Comment on above: Result Comment: Canc elled via OM: Order cancelled - Patient discharged Performed By: #### L 500.2500, L100.0100 ####[facility] [address] [place], [address] CO2 Normal 21.0-32.0 [facility] Comment on above: Result Comment: Canc elled via OM: Order cancelled - Patient discharged Performed By: #### L 500.2500, L100.0100 ####[facility] [address] [place], [address] CREAT,SERUM Normal 0.70-1.20 [facility] Comment on above: Result Comment: Canc elled via OM: Order cancelled - Patient discharged Performed By: #### L 500.2500, L100.0100 ####[facility] [address] [place], [address] eGFR Normal >60 [facility] Comment on above: Result Comment: Canc elled via OM: Order cancelled - Patient discharged Performed By: #### L 500.2500, L100.0100 ####[facility] [address] [place], [address] GAP Normal 5-15 [facility] Comment on above: Result Comment: Canc elled via OM: Order cancelled - Patient discharged Performed By: #### L 500.2500, L100.0100 ####[facility] [address] [place], [address] GLU Normal 70-99 [facility] Comment on above: Result Comment: Canc elled via OM: Order cancelled - Patient discharged Performed By: #### L 500.2500, L100.0100 ####[facility] [address] [place], [address] Potassium Normal 3.3-5.1 [facility] Comment on above: Result Comment: Canc elled via OM: Order cancelled - Patient discharged Performed By: #### L 500.2500, L100.0100 ####[facility] [address] [place], [address] Basic Metabolic Profile (BMP) Normal 133-145 [facility] Comment on above: Result Comment: Canc elled via OM: Order cancelled - Patient discharged Performed By: #### L 500.2500, L100.0100 ####[facility] [address] [place], [address] CBC W/Diff, Automatedon 07-2 Absolute Neut Normal 2.0-7.7 [facility] Comment on above: Result Comment: Canc elled via OM: Order cancelled - Patient discharged Performed By: #### L 500.2500, L100.0100 ####[facility] [address] [place], [address] HCT Normal 37-47 [facility] Comment on above: Result Comment: Canc elled via OM: Order cancelled - Patient discharged Performed By: #### L 500.2500, L100.0100 ####[facility] [address] [place], [address] HGB Normal 12.0-15.0 [facility] Comment on above: Result Comment: Canc elled via OM: Order cancelled - Patient discharged Performed By: #### L 500.2500, L100.0100 ####[facility] [address] [place], [address] MCH Normal 27.0-32.0 [facility] Comment on above: Result Comment: Canc elled via OM: Order cancelled - Patient discharged Performed By: #### L 500.2500, L100.0100 ####[facility] [address] [place], [address] MCHC Normal 32-36 [facility] Comment on above: Result Comment: Canc elled via OM: Order cancelled - Patient discharged Performed By: #### L 500.2500, L100.0100 ####[facility] [address] [place], [address] MCV Normal 81-99 [facility] Comment on above: Result Comment: Canc elled via OM: Order cancelled - Patient discharged Performed By: #### L 500.2500, L100.0100 ####[facility] [address] [place], [address] NEUT% Normal 47-70 [facility] Comment on above: Result Comment: Canc elled via OM: Order cancelled - Patient discharged Performed By: #### L 500.2500, L100.0100 ####[facility] [address] [place], [address] PLT Normal 150-450 [facility] Comment on above: Result Comment: Canc elled via OM: Order cancelled - Patient discharged Performed By: #### L 500.2500, L100.0100 ####[facility] [address] [place], [address] RBC Normal 4.2-5.4 [facility] Comment on above: Result Comment: Canc elled via OM: Order cancelled - Patient discharged Performed By: #### L 500.2500, L100.0100 ####[facility] [address] [place], [address] RDW CV Normal 11.6-14.6 [facility] Comment on above: Result Comment: Canc elled via OM: Order cancelled - Patient discharged Performed By: #### L 500.2500, L100.0100 ####[facility] [address] [place], [address] RDW SD Normal 35.1-43.9 [facility] Comment on above: Result Comment: Canc elled via OM: Order cancelled - Patient discharged Performed By: #### L 500.2500, L100.0100 ####[facility] [address] [place], [address] WBC Normal 4.4-11.0 [facility] Comment on above: Result Comment: Canc elled via OM: Order cancelled - Patient discharged Performed By: #### L 500.2500, L100.0100 ####[facility] [address] [place], [address] Absolute lymphocyte countOrd ered By: Kal Gomez on 08-31-2024 Lymphocytes Auto (Unsp spec) [#/Vol] 1.62 10*3/uL 0.83-4.51 [facility] Absolute neutrophil countOrd ered By: Kal Gomez on 08-31-2024 Neutrophils (Bld) [#/Vol] 13.2 10*3/uL High 2.0-7.7 [facility] Anion gap in Serum or Plasma Ordered By: Kal Gomez on 08-31-2024 Anion gap [Moles/Vol] 12 mmol/L 5-15 [facility] Automated lymphocyte count a s percentage of total leukocytesOrdered By: Kal Gomez on 08-31-2024 Lymphocytes/100 WBC Auto (Unsp spec) 10.2 % Low 19-41 [facility] BUN/creatinine ratioOrdered By: Kal Gomez on 08-31-2024 Urea nitrogen/Creatinine [Mass ratio] 34.0 mg/mg High 10-20 [facility] Basic Metabolic Profile (BMP )on 08-31-2024 BUN/CRE 34.0 RATIO High 12-01 [facility] Comment on above: Performed By: #### L 100.0100, L500.2500 ####[facility] [address] [place], [address] Calcium [Mass/Vol] 10.0 mg/dL Normal 7.6-11.0 [facility] Comment on above: Performed By: #### L 100.0100, L500.2500 ####[facility] [address] [place], [address] Chloride [Moles/Vol] 103 mmol/L Normal 98-108 [facility] Comment on above: Performed By: #### L 100.0100, L500.2500 ####[facility] [address] [place], [address] CO2 [Moles/Vol] 19.0 mmol/L Low 21.0-32.0 [facility] Comment on above: Performed By: #### L 100.0100, L500.2500 ####[facility] [address] [place], [address] Creatinine [Mass/Vol] 1.21 mg/dL High 0.70-1.20 [facility] Comment on above: Performed By: #### L 100.0100, L500.2500 ####[facility] [address] [place], [address] ECRCL 31.64 ml/min Low 50-250 [facility] Comment on above: Performed By: #### L 100.0100, L500.2500 ####[facility] [address] [place], [address] GAP 12 Normal 5-15 [facility] Comment on above: Performed By: #### L 100.0100, L500.2500 ####[facility] [address] [place], [address] GFR/1.73 sq M.predicted among non-blacks MDRD (S/P/Bld) [Vol rate/Area] 44 mL/min/{1.73_m2} Low >60 [facility] Comment on above: Result Comment: mL/m in/1.73m2 CKD-EPI Creatinine Equation (2020) Performed By: #### L 100.0100, L500.2500 ####[facility] [address] [place], [address] Glucose [Mass/Vol] 161 mg/dL High 70-99 [facility] Comment on above: Performed By: #### L 100.0100, L500.2500 ####[facility] [address] [place], [address] Potassium [Moles/Vol] 4.7 mmol/L Normal 3.3-5.1 [facility] Comment on above: Performed By: #### L 100.0100, L500.2500 ####[facility] [address] [place], [address] Sodium [Moles/Vol] 134 mmol/L Normal 133-145 [facility] Comment on above: Performed By: #### L 100.0100, L500.2500 ####[facility] [address] [place], [address] Urea nitrogen [Mass/Vol] 41 mg/dL High 4-19 [facility] Comment on above: Performed By: #### L 100.0100, L500.2500 ####[facility] [address] [place], [address] Basophil percentageOrdered B y: Kal Gomez on 08-31-2024 Basophils/100 WBC (Bld) 0.2 % 0-[address] [facility] CBC W/Diff, Automatedon 08-13 Absolute Lymph 1.62 X10 3/uL Normal 0.83-4.51 [facility] Comment on above: Performed By: #### L 100.0100, L500.2500 ####[facility] [address] [place], [address] Absolute Neut 13.2 X10 3/uL High 2.0-7.7 [facility] Comment on above: Performed By: #### L 100.0100, L500.2500 ####[facility] [address] [place], [address] Basophils/100 WBC (Bld) 0.2 % Normal 0-[address] [facility] Comment on above: Performed By: #### L 100.0100, L500.2500 ####[facility] [address] [place], [address] Eosinophils/100 WBC (Bld) 0.0 % Normal 0-5 [facility] Comment on above: Performed By: #### L 100.0100, L500.2500 ####[facility] [address] [place], [address] Erythrocyte distribution width (RBC) [Ratio] 12.4 % Normal 11.6-14.6 [facility] Comment on above: Performed By: #### L 100.0100, L500.2500 ####[facility] [address] [place], [address] Hematocrit (Bld) [Volume fraction] 39.5 % Normal 37-47 [facility] Comment on above: Performed By: #### L 100.0100, L500.2500 ####[facility] [address] [place], [address] Hemoglobin (Bld) [Mass/Vol] 14.0 g/dL Normal 12.0-15.0 [facility] Comment on above: Performed By: #### L 100.0100, L500.2500 ####[facility] [address] [place], [address] IG% 1.000 High 0.0-0.9 [facility] Comment on above: Result Comment: IG% - Immature Granulocytes (promyelocytes, myelocytes andmetamyelocytes) > 1% indicates that a LEFT SHIFT is Present. Performed By: #### L 100.0100, L500.2500 ####[facility] [address] [place], [address] Lymphocytes/100 WBC (Bld) 10.2 % Low 19-41 [facility] Comment on above: Performed By: #### L 100.0100, L500.2500 ####[facility] [address] [place], [address] MCH (RBC) [Entitic mass] 31.0 pg Normal 27.0-32.0 [facility] Comment on above: Performed By: #### L 100.0100, L500.2500 ####[facility] [address] [place], [address] MCHC (RBC) [Mass/Vol] 35.4 g/dL Normal 32-36 [facility] Comment on above: Performed By: #### L 100.0100, L500.2500 ####[facility] [address] [place], [address] MCV (RBC) [Entitic vol] 87.6 fL Normal 81-[address] [facility] Comment on above: Performed By: #### L 100.0100, L500.2500 ####[facility] [address] [place], [address] Monocytes/100 WBC (Bld) 5.6 % Normal 0-[address] [facility] Comment on above: Performed By: #### L 100.0100, L500.2500 ####[facility] [address] [place], [address] Neutrophils/100 WBC (Bld) 83.0 % High 47-70 [facility] Comment on above: Performed By: #### L 100.0100, L500.2500 ####[facility] [address] [place], [address] Nucleated RBC (Bld) [#/Vol] 0 10*3/uL Normal 0-5 [facility] Comment on above: Performed By: #### L 100.0100, L500.2500 ####[facility] [address] [place], [address] Platelet mean volume (Bld) [Entitic vol] 9.7 fL Normal 6.2-12.0 [facility] Comment on above: Performed By: #### L 100.0100, L500.2500 ####[facility] [address] [place], [address] Platelets (Bld) [#/Vol] 365 10*3/uL Normal 150-450 [facility] Comment on above: Performed By: #### L 100.0100, L500.2500 ####[facility] [address] [place], [address] RBC (Bld) [#/Vol] 4.51 10*6/uL Normal 4.2-5.4 [facility] Comment on above: Performed By: #### L 100.0100, L500.2500 ####[facility] [address] [place], [address] RDW SD 39.6 fl Normal 35.1-43.9 [facility] Comment on above: Performed By: #### L 100.0100, L500.2500 ####[facility] [address] [place], [address] WBC (Bld) [#/Vol] 15.9 10*3/uL High 4.4-11.0 [facility] Comment on above: Performed By: #### L 100.0100, L500.2500 ####[facility] [address] [place], [address] Carbon dioxide, total [Moles /volume] in Central venous bloodOrdered By: Kal Gomez on 08-31-2024 CO2 [Moles/Vol] 19.0 mmol/L Low 21.0-32.0 [facility] Chloride assayOrdered By: Tanner Gomez on 08-31-2024 Chloride [Moles/Vol] 103 mmol/L 98-108 [facility] Eosinophil percentageOrdered By: Kal Gomez on 08-31-2024 Eosinophils/100 WBC (Bld) 0.0 % 0-5 [facility] Erythrocyte distribution wid th ratioOrdered By: Kal Gomez on 08-31-2024 Erythrocyte distribution width (RBC) [Ratio] 12.4 % 11.6-14.6 [facility] Erythrocyte distribution wid th standard deviationOrdered By: Kal Gomez on 08-31-2024 Erythrocyte distribution width (RBC) [Ratio] 39.6 fl 35.1-43.9 [facility] Glomerular filtration rate ( GFR) estimation/1.73 sq m using serum, plasma, or whole bOrdered By: Kal Gomez on 08-31-2024 GFR/1.73 sq M.predicted among non-blacks MDRD (S/P/Bld) [Vol rate/Area] 44 mL/min/{1.73_m2} Low >60 [facility] Comment on above: mL/min/1.73m2 CKD-EP I Creatinine Equation (2020) Hematocrit Auto (Bld) [Volum e fraction]Ordered By: Kal Gomez on 08-31-2024 Hematocrit (Bld) [Volume fraction] 39.5 % 37-47 [facility] Hemoglobin measurementOrdere d By: Kal Gomez on 08-31-2024 Hemoglobin (Bld) [Mass/Vol] 14.0 g/dL 12.0-15.0 [facility] Immature granulocytes/100 WB C Auto (Bld)Ordered By: Kal Gomez on 08-31-2024 Immature granulocytes/100 WBC (Bld) 1.000 % High 0.0-0.9 [facility] Comment on above: IG% - Immature Granu locytes (promyelocytes, myelocytes and metamyelocytes) > 1% indicates that a LEFT SHIFT is Present. MCV (mean corpuscular volume ) determinationOrdered By: Kal Gomez on 08-31-2024 MCV (RBC) [Entitic vol] 87.6 fL 81-99 [facility] Mean corpuscular hemoglobin (MCH) determinationOrdered By: Kal Gomez on 08-31-2024 MCH (RBC) [Entitic mass] 31.0 pg 27.0-32.0 [facility] Mean corpuscular hemoglobin concentration (MCHC) determinationOrdered By: Kal Gomez on 08-31-2024 MCHC (RBC) [Mass/Vol] 35.4 g/dL 32-36 [facility] Mean platelet volume determi nationOrdered By: Kal Gomez on 08-31-2024 Platelet mean volume (Bld) [Entitic vol] 9.7 fL 6.2-12.0 [facility] Monocyte percentageOrdered B y: Kal Gomez on 08-31-2024 Monocytes/100 WBC (Bld) 5.6 % 0-[address] [facility] Neutrophil percentageOrdered By: Kal Gomez on 08-31-2024 Neutrophils/100 WBC (Bld) 83.0 % High 47-70 [facility] Nucleated red blood cell per centageOrdered By: Kal Gomez on 08-31-2024 Nucleated RBC/100 WBC (Bld) [Ratio] 0 % 0-5 [facility] Platelet countOrdered By: Tanner Gomez on 08-31-2024 Platelets (Bld) [#/Vol] 365 10*3/uL 150-450 [facility] Potassium measurement (mass/ volume)Ordered By: Kal Gomez on 08-31-2024 Potassium (Unsp spec) [Mass/Vol] 4.7 mmol/L 3.3-5.1 [facility] RBC Auto (Bld) [#/Vol]Ordere d By: Kal Gomez on 08-31-2024 RBC (Bld) [#/Vol] 4.51 10*6/uL 4.2-5.4 [facility] Serum creatinine measurement (mass/volume)Ordered By: Kal Gomez on 08-31-2024 Creatinine [Mass/Vol] 1.21 mg/dL High 0.70-1.20 [facility] Serum glucose measurement (m ass/volume)Ordered By: Kal Gomez on 08-31-2024 Glucose [Mass/Vol] 161 mg/dL High 70-99 [facility] Serum or plasma calcium bacilio urement (mass/volume)Ordered By: Kal Gomez on 08-31-2024 Calcium [Mass/Vol] 10.0 mg/dL 7.6-11.0 [facility] Serum or plasma urea nitroge n measurement (mass/volume)Ordered By: Kal Gomez on 08-31-2024 Urea nitrogen [Mass/Vol] 41 mg/dL High 4-19 [facility] Sodium levelOrdered By: Mert Gomez on 08-31-2024 Sodium [Moles/Vol] 134 mmol/L 133-145 [facility] White blood cell (WBC) count Ordered By: Kal Gomez on 08-31-2024 WBC (Bld) [#/Vol] 15.9 10*3/uL High 4.4-11.0 [facility] Basic Metabolic Profile (BMP )on 08-30-2024 BUN/CRE 23.8 RATIO High 10-20 [facility] Comment on above: Performed By: #### L 500.2500, L501.2300, L501.5200 ####[facility] [address] [place], [place], [address] Calcium [Mass/Vol] 9.5 mg/dL Normal 7.6-11.0 [facility] Comment on above: Performed By: #### L 500.2500, L501.2300, L501.5200 ####[facility] [address] [place], [address] Chloride [Moles/Vol] 101 mmol/L Normal 98-108 [facility] Comment on above: Performed By: #### L 500.2500, L501.2300, L501.5200 ####[facility] [address] [place], [address] CO2 [Moles/Vol] 18.0 mmol/L Low 21.0-32.0 [facility] Comment on above: Performed By: #### L 500.2500, L501.2300, L501.5200 ####[facility] [address] [place], [address] Creatinine [Mass/Vol] 1.38 mg/dL High 0.70-1.20 [facility] Comment on above: Performed By: #### L 500.2500, L501.2300, L501.5200 ####[facility] [address] [place], [address] ECRCL 28.69 ml/min Low 50-250 [facility] Comment on above: Performed By: #### L 500.2500, L501.2300, L501.5200 ####[facility] [address] [place], [address] GAP 11 Normal 5-15 [facility] Comment on above: Performed By: #### L 500.2500, L501.2300, L501.5200 ####[facility] [address] [place], [address] GFR/1.73 sq M.predicted among non-blacks MDRD (S/P/Bld) [Vol rate/Area] 38 mL/min/{1.73_m2} Low >60 [facility] Comment on above: Result Comment: mL/m in/1.73m2 CKD-EPI Creatinine Equation (2020) Performed By: #### L 500.2500, L501.2300, L501.5200 ####[facility] [address] [place], [address] Glucose [Mass/Vol] 168 mg/dL High 70-99 [facility] Comment on above: Performed By: #### L 500.2500, L501.2300, L501.5200 ####[facility] [address] [place], [address] Potassium [Moles/Vol] 4.6 mmol/L Normal 3.3-5.1 [facility] Comment on above: Performed By: #### L 500.2500, L501.2300, L501.5200 ####[facility] [address] [place], [address] Sodium [Moles/Vol] 130 mmol/L Low 133-145 [facility] Comment on above: Performed By: #### L 500.2500, L501.2300, L501.5200 ####[facility] [address] [place], [address] Urea nitrogen [Mass/Vol] 33 mg/dL High 4-19 [facility] Comment on above: Performed By: #### L 500.2500, L501.2300, L501.5200 ####[facility] [address] [place], [address] Bilirubin directOrdered By: Kal Gomez on 08-30-2024 Bilirubin.direct [Mass/Vol] 0.35 mg/dL High 0.00-0.30 [facility] Comment on above: Performed By: #### L 500.3400 ####[facility] [address] [place], [address] Bilirubin, totalOrdered By: Kal Gomez on 08-30-2024 Bilirubin [Mass/Vol] 0.72 mg/dL Normal 0.00-1.30 [facility] Comment on above: Performed By: #### L 500.3400 ####[facility] [address] [place], [address] CBC W/Diff, Automatedon - Absolute Lymph 1.38 X10 3/uL Normal 0.83-4.51 [facility] Comment on above: Performed By: #### L 100.0100 ####[facility] [address] [place], [address] Absolute Neut 11.8 X10 3/uL High 2.0-7.7 [facility] Comment on above: Performed By: #### L 100.0100 ####[facility] [address] [place], [address] Basophils/100 WBC (Bld) 0.1 % Normal 0-[address] [facility] Comment on above: Performed By: #### L 100.0100 ####[facility] [address] [place], [address] Eosinophils/100 WBC (Bld) 0.0 % Normal 0-5 [facility] Comment on above: Performed By: #### L 100.0100 ####[facility] [address] [place], [address] Erythrocyte distribution width (RBC) [Ratio] 12.2 % Normal 11.6-14.6 [facility] Comment on above: Performed By: #### L 100.0100 ####[facility] [address] [place], [address] Hematocrit (Bld) [Volume fraction] 38.7 % Normal 37-47 [facility] Comment on above: Performed By: #### L 100.0100 ####[facility] [address] [place], [address] Hemoglobin (Bld) [Mass/Vol] 13.2 g/dL Normal 12.0-15.0 [facility] Comment on above: Performed By: #### L 100.0100 ####[facility] [address] [place], [address] IG% 1.100 High 0.0-0.9 [facility] Comment on above: Result Comment: IG% - Immature Granulocytes (promyelocytes, myelocytes andmetamyelocytes) > 1% indicates that a LEFT SHIFT is Present. Performed By: #### L 100.0100 ####[facility] [address] [place], [address] Lymphocytes/100 WBC (Bld) 9.8 % Low 19-41 [facility] Comment on above: Performed By: #### L 100.0100 ####[facility] [address] [place], [address] MCH (RBC) [Entitic mass] 30.4 pg Normal 27.0-32.0 [facility] Comment on above: Performed By: #### L 100.0100 ####[facility] [address] [place], [address] MCHC (RBC) [Mass/Vol] 34.1 g/dL Normal 32-36 [facility] Comment on above: Performed By: #### L 100.0100 ####[facility] [address] [place], [address] MCV (RBC) [Entitic vol] 89.2 fL Normal 81-[address] [facility] Comment on above: Performed By: #### L 100.0100 ####[facility] [address] [place], [address] Monocytes/100 WBC (Bld) 5.4 % Normal 0-[address] [facility] Comment on above: Performed By: #### L 100.0100 ####[facility] [address] [place], [address] Neutrophils/100 WBC (Bld) 83.6 % High 47-70 [facility] Comment on above: Performed By: #### L 100.0100 ####[facility] [address] [place], [address] Nucleated RBC (Bld) [#/Vol] 0 10*3/uL Normal 0-5 [facility] Comment on above: Performed By: #### L 100.0100 ####[facility] [address] [place], [address] Platelet mean volume (Bld) [Entitic vol] 10.3 fL Normal 6.2-12.0 [facility] Comment on above: Performed By: #### L 100.0100 ####[facility] [address] [place], [address] Platelets (Bld) [#/Vol] 284 10*3/uL Normal 150-450 [facility] Comment on above: Performed By: #### L 100.0100 ####[facility] [address] [place], [address] RBC (Bld) [#/Vol] 4.34 10*6/uL Normal 4.2-5.4 [facility] Comment on above: Performed By: #### L 100.0100 ####[facility] [address] [place], [address] RDW SD 39.4 fl Normal 35.1-43.9 [facility] Comment on above: Performed By: #### L 100.0100 ####[facility] [address] [place], [address] WBC (Bld) [#/Vol] 14.1 10*3/uL High 4.4-11.0 [facility] Comment on above: Performed By: #### L 100.0100 ####[facility] [address] [place], [address] Liver Profileon 08-30-2024 ALK PHOS 146 U/L High 35-104 [facility] Comment on above: Performed By: #### L 500.3400 ####[facility] [address] [place], [place], [id number] T PROT 5.6 g/dL Low 5.9-8.4 [facility] Comment on above: Performed By: #### L 500.3400 ####[facility] [address] [place], [place], [id number] Liver ProfileOrdered By: Surendra Gomez on 08-30-2024 AST [Catalytic activity/Vol] 83 U/L High <=31 [facility] Comment on above: Performed By: #### L 500.3400 ####[facility] [address] [place], [place], [address] Magnesiumon 08-30-2024 Magnesium [Mass/Vol] 2.3 mg/dL High 1.5-2.2 [facility] Comment on above: Performed By: #### L 500.2500, L501.2300, L501.5200 ####[facility] [address] [place], [place], [id number] Magnesium measurement (mass/ volume)Ordered By: Kal Gomez on 08-30-2024 Magnesium (Unsp spec) [Mass/Vol] 2.3 mg/dL High 1.5-2.2 [facility] Phosphoruson 08-30-2024 Phosphate [Mass/Vol] 3.2 mg/dL Normal 2.7-4.5 [facility] Comment on above: Performed By: #### L 500.2500, L501.2300, L501.5200 ####[facility] [address] [place], [place], [id number] Serum globulin measurementOr dered By: Kal Gomez on 08-30-2024 Globulin (S) [Mass/Vol] 2.1 g/dL Low 2.2-4.2 [facility] Comment on above: Performed By: #### L 500.3400 ####[facility] [address] [place], [address] Serum or plasma alanine [place] otransferase (ALT) measurementOrdered By: Kal Gomez on 08-30-2024 ALT [Catalytic activity/Vol] 97 U/L High <=34 [facility] Comment on above: Performed By: #### L 500.3400 ####[facility] [address] [place], [address] Serum or plasma albumin bacilio urement (mass/volume)Ordered By: Kal Gomez on 08-30-2024 Albumin [Mass/Vol] 3.5 g/dL Normal 3.4-4.8 [facility] Comment on above: Performed By: #### L 500.3400 ####[facility] [address] [place], [address] Serum or plasma alkaline lavern sphatase measurementOrdered By: Kal Gomez on 08-30-2024 ALP [Catalytic activity/Vol] 146 U/L High 35-104 [facility] Total proteinOrdered By: Surendra Gomez on 08-30-2024 Protein [Mass/Vol] 5.6 g/dL Low 5.9-8.4 [facility] Abdomen Limitedon 08-29-2024 Abdomen Limited Normal [facility] Bilirubin Test strip Ql (U)O rdered By: Kal Nolan on 08-29-2024 Bilirubin Ql (U) 1 mg/dL High Negative [facility] Comment on above: COLOR OF URINE MAY A FFECT DIPSTICK RESULTS. CBC W/Diff, Automatedon 08-12 Absolute Lymph 1.46 X10 3/uL Normal 0.83-4.51 [facility] Comment on above: Performed By: #### L 500.4050, L100.0100, L501.9520, L501.2300 ####[facility] [address] [place], [address] Absolute Neut 17.1 X10 3/uL High 2.0-7.7 [facility] Comment on above: Performed By: #### L 500.4050, L100.0100, L501.9520, L501.2300 ####[facility] [address] [place], [address] Basophils/100 WBC (Bld) 0.1 % Normal 0-[address] [facility] Comment on above: Performed By: #### L 500.4050, L100.0100, L501.9520, L501.2300 ####[facility] [address] [place], [address] Eosinophils/100 WBC (Bld) 0.0 % Normal 0-5 [facility] Comment on above: Performed By: #### L 500.4050, L100.0100, L501.9520, L501.2300 ####[facility] [address] [place], [address] Erythrocyte distribution width (RBC) [Ratio] 12.1 % Normal 11.6-14.6 [facility] Comment on above: Performed By: #### L 500.4050, L100.0100, L501.9520, L501.2300 ####[facility] [address] [place], [address] Hematocrit (Bld) [Volume fraction] 37.5 % Normal 37-47 [facility] Comment on above: Performed By: #### L 500.4050, L100.0100, L501.9520, L501.2300 ####[facility] [address] [place], [address] Hemoglobin (Bld) [Mass/Vol] 12.9 g/dL Normal 12.0-15.0 [facility] Comment on above: Performed By: #### L 500.4050, L100.0100, L501.9520, L501.2300 ####[facility] [address] [place], [address] IG% 0.900 Normal 0.0-0.9 [facility] Comment on above: Result Comment: IG% - Immature Granulocytes (promyelocytes, myelocytes andmetamyelocytes) > 1% indicates that a LEFT SHIFT is Present. Performed By: #### L 500.4050, L100.0100, L501.9520, L501.2300 ####[facility] [address] [place], [address] Lymphocytes/100 WBC (Bld) 7.5 % Low 19-41 [facility] Comment on above: Performed By: #### L 500.4050, L100.0100, L501.9520, L501.2300 ####[facility] [address] [place], [address] MCH (RBC) [Entitic mass] 30.9 pg Normal 27.0-32.0 [facility] Comment on above: Performed By: #### L 500.4050, L100.0100, L501.9520, L501.2300 ####[facility] [address] [place], [address] MCHC (RBC) [Mass/Vol] 34.4 g/dL Normal 32-36 [facility] Comment on above: Performed By: #### L 500.4050, L100.0100, L501.9520, L501.2300 ####[facility] [address] [place], [address] MCV (RBC) [Entitic vol] 89.7 fL Normal 81-[address] [facility] Comment on above: Performed By: #### L 500.4050, L100.0100, L501.9520, L501.2300 ####[facility] [address] [place], [address] Monocytes/100 WBC (Bld) 4.1 % Normal 0-[address] [facility] Comment on above: Performed By: #### L 500.4050, L100.0100, L501.9520, L501.2300 ####[facility] [address] [place], [address] Neutrophils/100 WBC (Bld) 87.4 % High 47-70 [facility] Comment on above: Performed By: #### L 500.4050, L100.0100, L501.9520, L501.2300 ####[facility] [address] [place], [address] Nucleated RBC (Bld) [#/Vol] 0 10*3/uL Normal 0-5 [facility] Comment on above: Performed By: #### L 500.4050, L100.0100, L501.9520, L501.2300 ####[facility] [address] [place], [address] Platelet mean volume (Bld) [Entitic vol] 10.4 fL Normal 6.2-12.0 [facility] Comment on above: Performed By: #### L 500.4050, L100.0100, L501.9520, L501.2300 ####[facility] [address] [place], [address] Platelets (Bld) [#/Vol] 275 10*3/uL Normal 150-450 [facility] Comment on above: Performed By: #### L 500.4050, L100.0100, L501.9520, L501.2300 ####[facility] [address] [place], [address] RBC (Bld) [#/Vol] 4.18 10*6/uL Low 4.2-5.4 [facility] Comment on above: Performed By: #### L 500.4050, L100.0100, L501.9520, L501.2300 ####[facility] [address] [place], [address] RDW SD 39.8 fl Normal 35.1-43.9 [facility] Comment on above: Performed By: #### L 500.4050, L100.0100, L501.9520, L501.2300 ####[facility] [address] [place], [address] WBC (Bld) [#/Vol] 19.5 10*3/uL High 4.4-11.0 [facility] Comment on above: Performed By: #### L 500.4050, L100.0100, L501.9520, L501.2300 ####[facility] [address] [place], [address] Comprehensive Metabolic Prof [facility] 08-29-2024 Albumin [Mass/Vol] 3.6 g/dL Normal 3.4-4.8 [facility] Comment on above: Performed By: #### L 500.4050, L100.0100, L501.9520, L501.2300 ####[facility] [address] [place], [address] Albumin/Globulin [Mass ratio] 1.5 {ratio} Normal 0.9-2.4 [facility] Comment on above: Performed By: #### L 500.4050, L100.0100, L501.9520, L501.2300 ####[facility] [address] [place], [address] ALK PHOS 164 U/L High 35-104 [facility] Comment on above: Performed By: #### L 500.4050, L100.0100, L501.9520, L501.2300 ####[facility] [address] [place], [address] ALT [Catalytic activity/Vol] 118 U/L High <=34 [facility] Comment on above: Performed By: #### L 500.4050, L100.0100, L501.9520, L501.2300 ####[facility] [address] [place], [address] AST [Catalytic activity/Vol] 289 U/L High <=31 [facility] Comment on above: Performed By: #### L 500.4050, L100.0100, L501.9520, L501.2300 ####[facility] [address] [place], [address] Bilirubin [Mass/Vol] 2.07 mg/dL High 0.00-1.30 [facility] Comment on above: Performed By: #### L 500.4050, L100.0100, L501.9520, L501.2300 ####[facility] [address] [place], [address] BUN/CRE 22.3 RATIO High 10-20 [facility] Comment on above: Performed By: #### L 500.4050, L100.0100, L501.9520, L501.2300 ####[facility] [address] [place], [address] Calcium [Mass/Vol] 9.7 mg/dL Normal 7.6-11.0 [facility] Comment on above: Performed By: #### L 500.4050, L100.0100, L501.9520, L501.2300 ####[facility] [address] [place], [address] Chloride [Moles/Vol] 100 mmol/L Normal 98-108 [facility] Comment on above: Performed By: #### L 500.4050, L100.0100, L501.9520, L501.2300 ####[facility] [address] [place], [address] CO2 [Moles/Vol] 18.9 mmol/L Low 21.0-32.0 [facility] Comment on above: Performed By: #### L 500.4050, L100.0100, L501.9520, L501.2300 ####[facility] [address] [place], [address] Creatinine [Mass/Vol] 1.28 mg/dL High 0.70-1.20 [facility] Comment on above: Performed By: #### L 500.4050, L100.0100, L501.9520, L501.2300 ####[facility] [address] [place], [address] ECRCL 29.64 ml/min Low 50-250 [facility] Comment on above: Performed By: #### L 500.4050, L100.0100, L501.9520, L501.2300 ####[facility] [address] [place], [address] GAP 12 Normal 5-15 [facility] Comment on above: Performed By: #### L 500.4050, L100.0100, L501.9520, L501.2300 ####[facility] [address] [place], [address] GFR/1.73 sq M.predicted among non-blacks MDRD (S/P/Bld) [Vol rate/Area] 41 mL/min/{1.73_m2} Low >60 [facility] Comment on above: Result Comment: mL/m in/1.73m2 CKD-EPI Creatinine Equation (2020) Performed By: #### L 500.4050, L100.0100, L501.9520, L501.2300 ####[facility] [address] [place], [address] Globulin (S) [Mass/Vol] 2.4 g/dL Normal 2.2-4.[address] [facility] Comment on above: Performed By: #### L 500.4050, L100.0100, L501.9520, L501.2300 ####[facility] [address] [place], [address] Glucose [Mass/Vol] 156 mg/dL High 70-99 [facility] Comment on above: Performed By: #### L 500.4050, L100.0100, L501.9520, L501.2300 ####[facility] [address] [place], [address] Potassium [Moles/Vol] 4.7 mmol/L Normal 3.3-5.1 [facility] Comment on above: Performed By: #### L 500.4050, L100.0100, L501.9520, L501.2300 ####[facility] [address] [place], [address] Sodium [Moles/Vol] 131 mmol/L Low 133-145 [facility] Comment on above: Performed By: #### L 500.4050, L100.0100, L501.9520, L501.2300 ####[facility] [address] [place], [address] T PROT 6.0 g/dL Normal 5.9-8.4 [facility] Comment on above: Performed By: #### L 500.4050, L100.0100, L501.9520, L501.2300 ####[facility] [address] [place], [address] Urea nitrogen [Mass/Vol] 29 mg/dL High 4-19 [facility] Comment on above: Performed By: #### L 500.4050, L100.0100, L501.9520, L501.2300 ####[facility] [address] [place], [address] Ketones Test strip Ql (U)Ord ered By: Kal Nolan on 08-29-2024 Ketones Ql (U) 5 mg/dl High Negative [facility] Magnetic resonance imaging r eportOrdered By: Amari Barron on 08-29-2024 Study report [facility] Imaging Services [address] [place] [address] Spine Lumbar (Routine) MR#: [id number] Acct: [id number] Name: JANIA SPRAGUE Rep #: [id number] : 1940 F [id number] From: Al Barron MD PCP: Dr. Brandon March MD Status: ADM I NO Study:Spine Lumbar (Routine) Date of Exam: 08/29/24 Exam# [id number] Ordering Dr: Kal Vo DO PROCEDURE: SPINE LUMBAR (ROUTINE) 08/29/2024 REASON FOR EXAM: SUSPECTED ACUT L2 COMP FX L2 W/ INTRACT BACK PAIN TECHNIQUE: Multiplanar and multisequential MRI of the lumbar spine was performed without contrast. COMPARISON: Lumbar spine CT 08/28/2024. FINDINGS: Acute-subacute compression fracture involving the superior endplate of L2 with marrow edema, and approximately 50% height loss. No significant retropulsion into the spinal canal. Remainder of the vertebral bodies are relatively well preserved in height with no additional fracture. No suspicious marrow lesion. Modic type 2 degenerative endplate signal changes at T12-L1. Grade 2 anterolisthesis of L5 on S1 by roughly 8 mm. Alignment is otherwise anatomic atthe remaining levels. The conus appears normal in signal and morphology, terminating at L1. Normal appearance of the cauda equina. No significant abnormality in the visualized paravertebral soft tissues. Multilevel spondylotic changes with varying degrees of disc desiccation and narrowing, endplate osteophytosis and multiple small degenerative Schmorl's nodes, and hypertrophic facet arthropathy. At T10-T11; central disc protrusion indents the ventral thecal sac with contact on the anterior aspect of the lower cord, with no cord impingement or edema. No neural foraminal narrowing. At T12-L1; left paracentral disc protrusion indents the ventral thecal sac with contact on the tip of the conus, with no impingement or edema. No neural foraminal narrowing. L1-2: Asymmetric right disc bulge slightly indents the ventral thecal sac, with no substantial spinal canal or neural foraminal narrowing. L2-3: Broad-based disc bulge slightly indents the ventral thecal sac, with no substantial spinal canal narrowing. Mild bilateral neural foraminal narrowing. L3-4: Broad-based disc bulge indents the ventral thecal sac with no substantial spinal canal narrowing. Mild bilateral neural foraminal narrowing. L4-5: Broad-based disc bulge and ligamentum flavum/facet hypertrophy results in mild-moderate spinal canal narrowing with effacement of the lateral recesses. Mild right and moderate left neural foraminal narrowing. L5-S1: Partially uncovered dorsal disc bulge due to the L5 grade 2 anterolisthesis, resulting in mild spinal canal narrowing with effacement of the lateral recesses. Moderate-advanced bilateral foraminal narrowing, slightly greater on the right. MRI/Spine Lumbar (Routine) IMPRESSION: Acute-subacute compression fracture involving superior endplate of L2. No retropulsion. Multilevel spondylotic changes as described with no high-grade spinal canal narrowing. Grade 2 degenerative anterolisthesis of L5 on S1. Neural foraminal narrowing isat most moderate on the left at L4-5, and moderate-advanced bilaterally at L5-S1. Reading Location: [facility] CC: Dr. Kal Wright DO; Dr. Brandon March MD ~ Filament Coil Winder: Signed [facility] Microscopic analysis of urin e for red blood cells (RBC)Ordered By: Kal Nolan on 08-29-2024 Microscopic analysis of urine for red blood cells (RBC) 0 SEEN /hpf 0-5 [facility] Mucus LM Ql (Urine sed)Order ed By: Kal Nolan on 08-29-2024 Mucus Ql (Urine sed) 0 SEEN /hpf [facility] Nitrite Test strip Ql (U)Ord ered By: Kal Nolan on 08-29-2024 Nitrite Ql (U) Negative Negative [facility] Phosphoruson 08-29-2024 Phosphate [Mass/Vol] 3.3 mg/dL Normal 2.7-4.5 [facility] Comment on above: Performed By: #### L 500.4050, L100.0100, L501.9520, L501.2300 ####[facility] [address] [place], [place], [id number] Protein Test strip Ql (U)Ord ered By: Kal Nolan on 08-29-2024 Protein Ql (U) 15 mg/dl High Negative [facility] Serum or plasma albumin/glob ulin mass ratioOrdered By: Kal Nolan on 08-29-2024 Albumin/Globulin [Mass ratio] 1.5 {ratio} 0.9-2.4 [facility] Spine Lumbar (Routine)on Spine Lumbar (Routine) Normal [facility] Squamous epithelial cells de tection in urine sediment by light microscopyOrdered By: Kal Nolan on 08-29-2024 Epithelial cells.squamous LM Ql (Urine sed) 0-5 SEEN /hpf 5-10 [facility] TSH DL <= 0.005 mIU/L QnOrde red By: Kal Nolan on 08-29-2024 TSH Qn 0.370 uIU/mL 0.300-4.200 [facility] Thyroid Stim Hormone (TSH)on 08-29-2024 TSH 0.370 uIU/mL Normal 0.300-4.200 [facility] Comment on above: Performed By: #### L 500.4050, L100.0100, L501.9520, L501.2300 ####[facility] [address] [place], [place], [id number] Urinalysis, Completeon 08-29 EPI,SQUAMOUS 0-5 SEEN Normal 5-10 [facility] Comment on above: Order Comment: CLEAN CATCH Performed By: #### L 400.0001 ####[facility] [address] [place], [address] WBC 0-5 SEEN Normal 0-5 [facility] Comment on above: Order Comment: CLEAN CATCH Performed By: #### L 400.0001 ####[facility] [address] [place], [address] BACTERIA 0 SEEN Normal None Seen [facility] Comment on above: Order Comment: CLEAN CATCH Performed By: #### L 400.0001 ####[facility] [address] [place], [place], [id number] Mucus Ql (Urine sed) 0 SEEN Normal [facility] Comment on above: Order Comment: CLEAN CATCH Performed By: #### L 400.0001 ####[facility] [address] [place], [place], [id number] RBC 0 SEEN Normal 0-5 [facility] Comment on above: Order Comment: CLEAN CATCH Performed By: #### L 400.0001 ####[facility] [address] [place], [place], [id number] Urine clarityOrdered By: Surendra Nolan on 08-29-2024 Clarity (U) Clear Clear [facility] Urine color determinationOrd ered By: Kal Nolan on 08-29-2024 Color (U) Yellow Yellow [facility] Urine glucose detectionOrder ed By: Kal Nolan on 08-29-2024 Glucose Ql (U) Normal mg/dl Normal [facility] Urine leukocyte esterase det ection by dipstickOrdered By: Kal Nolan on 08-29-2024 Leukocyte esterase Test strip Ql (U) 25 /ul High Negative [facility] Urine pHOrdered By: Kal kaur on 08-29-2024 pH (U) 6.0 [pH] 5.0 - 8.0 [facility] Urine sediment bacteria coun t by microscopy (number/high power field)Ordered By: Kal Nolan on 08-29-2024 Bacteria LM.HPF (Urine sed) [#/Area] 0 /[HPF] None Seen [facility] Urine specific gravity measu rementOrdered By: Kal Nolan on 08-29-2024 Specific gravity (U) [Rel density] 1.015 1.002-1.030 [facility] Urine urobilinogen measureme ntOrdered By: Kal Nolan on 08-29-2024 Urobilinogen Ql (U) 4 mg/dl High Normal [facility] White blood cell countOrdere d By: Kal Nolan on 08-29-2024 White blood cell count 0-5 SEEN /hpf 0-5 [facility] Absolute lymphocyte countOrd ered By: Tia Benavides on 08-28-2024 Lymphocytes Auto (Unsp spec) [#/Vol] 1.97 10*3/uL 0.83-4.51 [facility] Absolute neutrophil countOrd ered By: Tia Cashrandiamrit on 08-28-2024 Neutrophils (Bld) [#/Vol] 21.0 10*3/uL High 2.0-7.7 [facility] Automated lymphocyte count a s percentage of total leukocytesOrdered By: Tia Cashvaleria on 08-28-2024 Lymphocytes/100 WBC Auto (Unsp spec) 7.9 % Low 19-41 [facility] Basic Metabolic Profile (BMP )on 08-28-2024 BUN/CRE 23.3 RATIO High 10-20 [facility] Comment on above: Performed By: #### L 100.0100, L500.2500 ####[facility] [address] [place], [address] Calcium [Mass/Vol] 9.8 mg/dL Normal 7.6-11.0 [facility] Comment on above: Performed By: #### L 100.0100, L500.2500 ####[facility] [address] [place], [address] Chloride [Moles/Vol] 100 mmol/L Normal 98-108 [facility] Comment on above: Performed By: #### L 100.0100, L500.2500 ####[facility] [address] [place], [address] CO2 [Moles/Vol] 19.5 mmol/L Low 21.0-32.0 [facility] Comment on above: Performed By: #### L 100.0100, L500.2500 ####[facility] [address] [place], [address] Creatinine [Mass/Vol] 1.21 mg/dL High 0.70-1.20 [facility] Comment on above: Performed By: #### L 100.0100, L500.2500 ####[facility] [address] [place], [address] ECRCL 32.05 ml/min Low 50-250 [facility] Comment on above: Performed By: #### L 100.0100, L500.2500 ####[facility] [address] [place], [address] GAP 12 Normal 5-15 [facility] Comment on above: Performed By: #### L 100.0100, L500.2500 ####[facility] [address] [place], [address] GFR/1.73 sq M.predicted among non-blacks MDRD (S/P/Bld) [Vol rate/Area] 44 mL/min/{1.73_m2} Low >60 [facility] Comment on above: Result Comment: mL/m in/1.73m2 CKD-EPI Creatinine Equation (2020) Performed By: #### L 100.0100, L500.2500 ####[facility] [address] [place], [address] Glucose [Mass/Vol] 115 mg/dL High 70-99 [facility] Comment on above: Performed By: #### L 100.0100, L500.2500 ####[facility] [address] [place], [address] Potassium [Moles/Vol] 4.8 mmol/L Normal 3.3-5.1 [facility] Comment on above: Result Comment: Hemo lysis present, Results??could be affected.?? Performed By: #### L 100.0100, L500.2500 ####[facility] [address] [place], [address] Sodium [Moles/Vol] 131 mmol/L Low 133-145 [facility] Comment on above: Performed By: #### L 100.0100, L500.2500 ####[facility] [address] [place], [place], [address] Urea nitrogen [Mass/Vol] 28 mg/dL High 4-19 [facility] Comment on above: Performed By: #### L 100.0100, L500.2500 ####[facility] [address] [place], [address] Basophil percentageOrdered B y: Tia Benavides on 08-28-2024 Basophils/100 WBC (Bld) 0.1 % 0-[address] [facility] Blood manual differential co mment interpretation (narrative result)Ordered By: Tia Benavides on 08-28-2024 Manual differential comment Matthew (Bld) [Interp] SCANNED [facility] CBC W/Diff, Automatedon 08-12 SMEAR COMMENT SCANNED Normal [facility] Comment on above: Performed By: #### L 100.0100, L500.2500 ####[facility] [address] [place], [place], [id number] Emergency Department Summary on 08-28-2024 Emergency Department Summary Normal [facility] Eosinophil percentageOrdered By: Tia Benavides on 08-28-2024 Eosinophils/100 WBC (Bld) 0.0 % 0-5 [facility] Erythrocyte distribution wid th ratioOrdered By: Tia Benavides on 08-28-2024 Erythrocyte distribution width (RBC) [Ratio] 12.0 % 11.6-14.6 [facility] Erythrocyte distribution wid th standard deviationOrdered By: Tia Benavides on 08-28-2024 Erythrocyte distribution width (RBC) [Ratio] 39.5 fl 35.1-43.9 [facility] H AND P Exam - Hospitaliston 08-28-2024 H&P Exam - Hospitalist Normal [facility] Hematocrit Auto (Bld) [Volum e fraction]Ordered By: Tia Benavides on 08-28-2024 Hematocrit (Bld) [Volume fraction] 38.9 % 37-47 [facility] Hemoglobin measurementOrdere d By: Tia Benavides on 08-28-2024 Hemoglobin (Bld) [Mass/Vol] 13.6 g/dL 12.0-15.0 [facility] Immature granulocytes/100 WB C Auto (Bld)Ordered By: Tia Benavides on 08-28-2024 Immature granulocytes/100 WBC (Bld) 0.700 % 0.0-0.9 [facility] Comment on above: IG% - Immature Granu locytes (promyelocytes, myelocytes and metamyelocytes) > 1% indicates that a LEFT SHIFT is Present. MCV (mean corpuscular volume ) determinationOrdered By: Tia Benavides on 08-28-2024 MCV (RBC) [Entitic vol] 90.0 fL 81-99 [facility] Magnesiumon 08-28-2024 Magnesium [Mass/Vol] 2.2 mg/dL Normal 1.5-2.2 [facility] Comment on above: Performed By: #### L 501.5200 ####[facility] [address] [place], [address] Mean corpuscular hemoglobin (MCH) determinationOrdered By: Tia Benavides on 08-28-2024 MCH (RBC) [Entitic mass] 31.5 pg 27.0-32.0 [facility] Mean corpuscular hemoglobin concentration (MCHC) determinationOrdered By: Tia Benavides on 08-28-2024 MCHC (RBC) [Mass/Vol] 35.0 g/dL 32-36 [facility] Mean platelet volume determi nationOrdered By: Tia Benavides on 08-28-2024 Platelet mean volume (Bld) [Entitic vol] 10.2 fL 6.2-12.0 [facility] Monocyte percentageOrdered B y: Tia Benavides on 08-28-2024 Monocytes/100 WBC (Bld) 7.2 % 0-[address] [facility] Neutrophil percentageOrdered By: Tia Benavides on 08-28-2024 Neutrophils/100 WBC (Bld) 84.1 % High 47-70 [facility] Nucleated red blood cell per centageOrdered By: Tia Benavides on 08-28-2024 Nucleated RBC/100 WBC (Bld) [Ratio] 0 % 0-5 [facility] Platelet countOrdered By: Denia Benavides on 08-28-2024 Platelets (Bld) [#/Vol] 300 10*3/uL 150-450 [facility] RBC Auto (Bld) [#/Vol]Ordere d By: Tia Benavides on 08-28-2024 RBC (Bld) [#/Vol] 4.32 10*6/uL 4.2-5.4 [facility] Spine Lumbar without Contras ton 08-28-2024 Spine Lumbar without Contrast Normal [facility] White blood cell (WBC) count Ordered By: Tia Benavides on 08-28-2024 WBC (Bld) [#/Vol] 25.0 10*3/uL High 4.4-11.0 [facility] L/S Spine Min 4 Viewson 08-12 L/S Spine Min 4 Views Normal [facility] Sacrum-Coccyx min 2 Viewson 08-27-2024 Sacrum-Coccyx min 2 Views Normal [facility] Absolute lymphocyte countOrd ered By: Brandon March on 06-09-2024 Lymphocytes Auto (Unsp spec) [#/Vol] 4.34 10*3/uL 0.83-4.51 [facility] Absolute neutrophil countOrd ered By: Brandon March on 06-09-2024 Neutrophils (Bld) [#/Vol] 6.1 10*3/uL 2.0-7.7 [facility] Anion gap in Serum or Plasma Ordered By: Brandon March on 06-09-2024 Anion gap [Moles/Vol] 9 mmol/L 5-15 [facility] Automated lymphocyte count a s percentage of total leukocytesOrdered By: Brandon March on 06-09-2024 Lymphocytes/100 WBC Auto (Unsp spec) 36.4 % - [facility] BUN/creatinine ratioOrdered By: Brandon March on 06-09-2024 Urea nitrogen/Creatinine [Mass ratio] 17.1 mg/mg 10-20 [facility] Basophil percentageOrdered B y: Brandon March on 06-09-2024 Basophils/100 WBC (Bld) 0.7 % 0-[address] [facility] Bilirubin, totalOrdered By: Brandon March on 06-09-2024 Bilirubin [Mass/Vol] 0.58 mg/dL 0.00-1.30 [facility] CBC W/Diff, Automatedon 05-14 PLT EST ADEQUATE Normal ADEQ [facility] Comment on above: Performed By: #### L 506.1001, L501.9520, L100.0100, L500.4050 ####[facility] [address] [place], [address] Carbon dioxide, total [Moles /volume] in Central venous bloodOrdered By: Brandon March on 06-09-2024 CO2 [Moles/Vol] 26.6 mmol/L 21.0-32.0 [facility] Chloride assayOrdered By: Dony March on 06-09-2024 Chloride [Moles/Vol] 103 mmol/L 98-108 [facility] Comprehensive Metabolic Prof ilon 06-09-2024 Albumin [Mass/Vol] 4.1 g/dL Normal 3.4-4.8 [facility] Comment on above: Performed By: #### L 506.1001, L501.9520, L100.0100, L500.4050 ####[facility] [address] [place], [address] Albumin/Globulin [Mass ratio] 1.7 {ratio} Normal 0.9-2.4 [facility] Comment on above: Performed By: #### L 506.1001, L501.9520, L100.0100, L500.4050 ####[facility] [address] [place], [address] ALK PHOS 79 U/L Normal 35-104 [facility] Comment on above: Performed By: #### L 506.1001, L501.9520, L100.0100, L500.4050 ####[facility] [address] [place], [address] ALT [Catalytic activity/Vol] 20 U/L Normal <=34 [facility] Comment on above: Performed By: #### L 506.1001, L501.9520, L100.0100, L500.4050 ####[facility] [address] [place], [address] AST [Catalytic activity/Vol] 30 U/L Normal <=31 [facility] Comment on above: Performed By: #### L 506.1001, L501.9520, L100.0100, L500.4050 ####[facility] [address] [place], [address] Bilirubin [Mass/Vol] 0.58 mg/dL Normal 0.00-1.30 [facility] Comment on above: Performed By: #### L 506.1001, L501.9520, L100.0100, L500.4050 ####[facility] [address] [place], [address] BUN/CRE 17.1 RATIO Normal 10-20 [facility] Comment on above: Performed By: #### L 506.1001, L501.9520, L100.0100, L500.4050 ####[facility] [address] [place], [address] Calcium [Mass/Vol] 11.4 mg/dL High 7.6-11.0 [facility] Comment on above: Performed By: #### L 506.1001, L501.9520, L100.0100, L500.4050 ####[facility] [address] [place], [address] Chloride [Moles/Vol] 103 mmol/L Normal 98-108 [facility] Comment on above: Performed By: #### L 506.1001, L501.9520, L100.0100, L500.4050 ####[facility] [address] [place], [address] CO2 [Moles/Vol] 26.6 mmol/L Normal 21.0-32.0 [facility] Comment on above: Performed By: #### L 506.1001, L501.9520, L100.0100, L500.4050 ####[facility] [address] [place], [address] Creatinine [Mass/Vol] 1.12 mg/dL Normal 0.70-1.20 [facility] Comment on above: Performed By: #### L 506.1001, L501.9520, L100.0100, L500.4050 ####[facility] [address] [place], [address] GAP 9 Normal 5-15 [facility] Comment on above: Performed By: #### L 506.1001, L501.9520, L100.0100, L500.4050 ####[facility] [address] [place], [address] GFR/1.73 sq M.predicted among non-blacks MDRD (S/P/Bld) [Vol rate/Area] 48 mL/min/{1.73_m2} Low >60 [facility] Comment on above: Result Comment: mL/m in/1.73m2 CKD-EPI Creatinine Equation (2020) Performed By: #### L 506.1001, L501.9520, L100.0100, L500.4050 ####[facility] [address] [place], [address] Globulin (S) [Mass/Vol] 2.4 g/dL Normal 2.2-4.2 [facility] Comment on above: Performed By: #### L 506.1001, L501.9520, L100.0100, L500.4050 ####[facility] [address] [place], [address] Glucose [Mass/Vol] 88 mg/dL Normal 70-99 [facility] Comment on above: Performed By: #### L 506.1001, L501.9520, L100.0100, L500.4050 ####[facility] [address] [place], [address] Potassium [Moles/Vol] 4.3 mmol/L Normal 3.3-5.1 [facility] Comment on above: Performed By: #### L 506.1001, L501.9520, L100.0100, L500.4050 ####[facility] [address] [place], [address] Sodium [Moles/Vol] 138 mmol/L Normal 133-145 [facility] Comment on above: Performed By: #### L 506.1001, L501.9520, L100.0100, L500.4050 ####[facility] [address] [place], [address] T PROT 6.5 g/dL Normal 5.9-8.4 [facility] Comment on above: Performed By: #### L 506.1001, L501.9520, L100.0100, L500.4050 ####[facility] [address] [place], [address] Urea nitrogen [Mass/Vol] 19 mg/dL Normal 4-19 [facility] Comment on above: Performed By: #### L 506.1001, L501.9520, L100.0100, L500.4050 ####[facility] [address] [place], [address] Eosinophil percentageOrdered By: Brandon March on 06-09-2024 Eosinophils/100 WBC (Bld) 2.8 % 0-5 [facility] Erythrocyte distribution wid th ratioOrdered By: Brandon March on 06-09-2024 Erythrocyte distribution width (RBC) [Ratio] 11.8 % 11.6-14.6 [facility] Erythrocyte distribution wid th standard deviationOrdered By: Brandon March 06-09-2024 Erythrocyte distribution width (RBC) [Ratio] 40.7 fl 35.1-43.9 [facility] Glomerular filtration rate ( GFR) estimation/1.73 sq m using serum, plasma, or whole bOrdered By: Brandon March 06-09-2024 GFR/1.73 sq M.predicted among non-blacks MDRD (S/P/Bld) [Vol rate/Area] 48 mL/min/{1.73_m2} Low >60 [facility] Comment on above: mL/min/1.73m2 CKD-EP I Creatinine Equation (2020) Hematocrit Auto (Bld) [Volum e fraction]Ordered By: Brandon March 06-09-2024 Hematocrit (Bld) [Volume fraction] 40.7 % 37-47 [facility] Hemoglobin measurementOrdere d By: Brandon March 06-09-2024 Hemoglobin (Bld) [Mass/Vol] 13.6 g/dL 12.0-15.0 [facility] Immature granulocytes/100 WB C Auto (Bld)Ordered By: Brandon March 06-09-2024 Immature granulocytes/100 WBC (Bld) 0.400 % 0.0-0.9 [facility] Comment on above: IG% - Immature Granu locytes (promyelocytes, myelocytes and metamyelocytes) > 1% indicates that a LEFT SHIFT is Present. Laboratory - Chemistry and C hemistry - challengeOrdered By: Brandon March 06-09-2024 AST [Catalytic activity/Vol] 30 U/L <32 [facility] MCV (mean corpuscular volume ) determinationOrdered By: Brandon Joaquim 06-09-2024 MCV (RBC) [Entitic vol] 93.1 fL 81-[address] [facility] Mean corpuscular hemoglobin (MCH) determinationOrdered By: Brandon Joaquim 06-09-2024 MCH (RBC) [Entitic mass] 31.1 pg 27.0-32.0 [facility] Mean corpuscular hemoglobin concentration (MCHC) determinationOrdered By: Brandon Joaquim 06-09-2024 MCHC (RBC) [Mass/Vol] 33.4 g/dL 32-36 [facility] Mean platelet volume determi nationOrdered By: Brandon March on 06-09-2024 Platelet mean volume (Bld) [Entitic vol] 10.2 fL 6.2-12.0 [facility] Monocyte percentageOrdered B y: Brandon March on 06-09-2024 Monocytes/100 WBC (Bld) 8.3 % 0-[address] [facility] Neutrophil percentageOrdered By: Brandon March on 06-09-2024 Neutrophils/100 WBC (Bld) 51.4 % 47-70 [facility] Nucleated red blood cell per centageOrdered By: Brandon March on 06-09-2024 Nucleated RBC/100 WBC (Bld) [Ratio] 0 % 0-5 [facility] Platelet countOrdered By: Dony March on 06-09-2024 Platelets (Bld) [#/Vol] 316 10*3/uL 150-450 [facility] Platelet estimateOrdered By: Brandon March on 06-09-2024 Platelets LM Ql (Bld) ADEQUATE ADEQ [facility] Potassium measurement (mass/ volume)Ordered By: Brandon March on 06-09-2024 Potassium (Unsp spec) [Mass/Vol] 4.3 mmol/L 3.3-5.1 [facility] RBC Auto (Bld) [#/Vol]Ordere d By: Brandon March 06-09-2024 RBC (Bld) [#/Vol] 4.37 10*6/uL 4.2-5.4 [facility] Serum creatinine measurement (mass/volume)Ordered By: Brandon March 06-09-2024 Creatinine [Mass/Vol] 1.12 mg/dL 0.70-1.20 [facility] Serum globulin measurementOr dered By: Brandon March 06-09-2024 Globulin (S) [Mass/Vol] 2.4 g/dL 2.2-4.[address] [facility] Serum glucose measurement (m ass/volume)Ordered By: Brandon March 06-09-2024 Glucose [Mass/Vol] 88 mg/dL 70-99 [facility] Serum or plasma alanine livingston otransferase (ALT) measurementOrdered By: Brandon March 06-09-2024 ALT [Catalytic activity/Vol] 20 U/L <35 [facility] Serum or plasma albumin bacilio urement (mass/volume)Ordered By: Brandon March on 06-09-2024 Albumin [Mass/Vol] 4.1 g/dL 3.4-4.8 [facility] Serum or plasma albumin/glob ulin mass ratioOrdered By: Brandon March 06-09-2024 Albumin/Globulin [Mass ratio] 1.7 {ratio} 0.9-2.4 [facility] Serum or plasma alkaline lavern sphatase measurementOrdered By: Brandon March on 06-09-2024 ALP [Catalytic activity/Vol] 79 U/L 35-104 [facility] Serum or plasma calcium bacilio urement (mass/volume)Ordered By: Brandon March on 06-09-2024 Calcium [Mass/Vol] 11.4 mg/dL High 7.6-11.0 [facility] Serum or plasma urea nitroge n measurement (mass/volume)Ordered By: Brandon March 06-09-2024 Urea nitrogen [Mass/Vol] 19 mg/dL 4-19 [facility] Sodium levelOrdered By: Brandon March on 06-09-2024 Sodium [Moles/Vol] 138 mmol/L 133-145 [facility] TSH DL <= 0.005 mIU/L QnOrde red By: Brandon March on 06-09-2024 TSH Qn 1.440 uIU/mL 0.300-4.200 [facility] Thyroid Stim Hormone (TSH)on 06-09-2024 TSH 1.440 uIU/mL Normal 0.300-4.200 [facility] Comment on above: Performed By: #### L 506.1001, L501.9520, L100.0100, L500.4050 ####[facility] [address] [place], [place], [id number] Total proteinOrdered By: Brandon March on 06-09-2024 Protein [Mass/Vol] 6.5 g/dL 5.9-8.4 [facility] Vitamin D,25 Hydroxyon 06-09 Vitamin D 25-OH 38.4 ng/mL Normal 30-100 [facility] Comment on above: Result Comment: Cristina min D StatusDeficiency: <20 ng/mL (50nmol/L)Insufficiency: 20-30 ng/mL (50-75 nmol/L)Sufficiency: 30-100 ng/mL (75-250 nmol/L)Toxicity: >100 ng/mL (>250 nmol/L) Performed By: #### L 506.1001, L501.9520, L100.0100, L500.4050 ####[facility] [address] [place], [address] White blood cell (WBC) count Ordered By: Brandon March on 06-09-2024 WBC (Bld) [#/Vol] 11.9 10*3/uL High 4.4-11.0 [facility] Special Stain Group IIon Special Stain Group II Normal [facility] Comment on above: Performed By: #### P SSII ####[facility] [address] [place], [place], [address] Surgery Visit Reporton 06-03 Surgery Visit Report Normal [facility] Thyroid Uptake Single or Mul ton 04-23-2024 Thyroid Uptake Single or Mult Normal [facility] Thyroidon 03-27-2024 Thyroid Normal [facility] PT D/C Summary (1)on 025 PT D/C Summary (1) Normal [facility] CREATININE FINGERSTICKon CREATININE WB < 1.0 Normal 0.55-1.02 [facility] Comment on above: Performed By: #### L 9100.0200 ####[facility] [address] [place], [place], [address] GFR/1.73 sq M.predicted among non-blacks MDRD (S/P/Bld) [Vol rate/Area] 60.0000 mL/min/{1.73_m2} Normal >60 [facility] Comment on above: Performed By: #### L 9100.0200 ####[facility] [address] [place], [address] Chest WITH Contraston 2024 Chest WITH Contrast Normal [facility] Creatinine measurement at be dsideOrdered By: Brandon March on 03-12-2024 Bedside Creatinine < 1.0 mg/dL 0.55-1.02 [facility] EGFROrdered By: Brandon March on 03-12-2024 GFR/1.73 sq M.predicted among non-blacks MDRD (S/P/Bld) [Vol rate/Area] 60.0000 mL/min/{1.73_m2} >60 [facility] Cardiology Visit Reporton Cardiology Visit Report Normal [facility] Inital Evaluation (1) - PTon 02-01-2024 Inital Evaluation (1) - PT Normal [facility] Absolute neutrophil countOrd ered By: Cal Billings on 01-23-2024 Neutrophils (Bld) [#/Vol] 5.8 10*3/uL 2.0-7.7 [facility] Basic Metabolic Profile (BMP )on 01-23-2024 BUN/CRE 20.3 RATIO High 10- [facility] Comment on above: Performed By: #### L 500.2500, L100.0100 ####[facility] [address] [place], [address] CA,Total 10.5 mg/dL High 8.5-10.1 [facility] Comment on above: Performed By: #### L 500.2500, L100.0100 ####[facility] [address] [place], [address] Chloride [Moles/Vol] 108 mmol/L High 98-107 [facility] Comment on above: Performed By: #### L 500.2500, L100.0100 ####[facility] [address] [place], [address] CO2 [Moles/Vol] 27.0 mmol/L Normal 21.0-32.0 [facility] Comment on above: Performed By: #### L 500.2500, L100.0100 ####[facility] [address] [place], [address] Creatinine [Mass/Vol] 1.48 mg/dL High 0.55-1.02 [facility] Comment on above: Result Comment: The validity of the calculated GFR GFRAA in patients over70 years has not been determined. Clinical correlation isessential. Performed By: #### L 500.2500, L100.0100 ####[facility] [address] [place], [address] ECRCL 26.27 ml/min Normal [facility] Comment on above: Performed By: #### L 500.2500, L100.0100 ####[facility] [address] [place], [address] EST GFR - AA 43 mL/min Low >60 [facility] Comment on above: Result Comment: Afri can [place]ian GFR Calc Performed By: #### L 500.2500, L100.0100 ####[facility] [address] [place], [address] GAP 7 Normal 5-15 [facility] Comment on above: Performed By: #### L 500.2500, L100.0100 ####[facility] [address] [place], [address] GFR/1.73 sq M.predicted among non-blacks MDRD (S/P/Bld) [Vol rate/Area] 36 mL/min/{1.73_m2} Low >60 [facility] Comment on above: Result Comment: Non- GFR Calc Performed By: #### L 500.2500, L100.0100 ####[facility] [address] [place], [address] Glucose [Mass/Vol] 115 mg/dL High 74-106 [facility] Comment on above: Result Comment: Fast ing Glucose result from 100 to 125 mg/dLsuggests IMPAIRED HOMEOSTASIS per A.D.A. criteria. Performed By: #### L 500.2500, L100.0100 ####[facility] [address] [place], [address] Potassium [Moles/Vol] 3.5 mmol/L Normal 3.5-5.1 [facility] Comment on above: Performed By: #### L 500.2500, L100.0100 ####[facility] [address] [place], [address] Sodium [Moles/Vol] 142 mmol/L Normal 136-145 [facility] Comment on above: Performed By: #### L 500.2500, L100.0100 ####[facility] [address] [place], [address] Urea nitrogen [Mass/Vol] 30 mg/dL High - [facility] Comment on above: Performed By: #### L 500.2500, L100.0100 ####[facility] [address] [place], [address] Basophil percentageOrdered B y: Cal Billings on 01-23-2024 Basophils/100 WBC (Bld) 0.7 % 0-[address] [facility] Blood urea nitrogen (BUN)/cr eatinine ratioOrdered By: Cal Billings on 01-23-2024 Urea nitrogen/Creatinine [Mass ratio] 20.3 mg/mg High -20 [facility] CBC W/Diff, Automatedon 01-12 Absolute Lymph 3.72 X10 3/uL Normal 0.83-4.51 [facility] Comment on above: Performed By: #### L 500.2500, L100.0100 ####[facility] [address] [place], [address] Absolute Neut 5.8 X10 3/uL Normal 2.0-7.7 [facility] Comment on above: Performed By: #### L 500.2500, L100.0100 ####[facility] [address] [place], [address] Basophils/100 WBC (Bld) 0.7 % Normal 0-[address] [facility] Comment on above: Performed By: #### L 500.2500, L100.0100 ####[facility] [address] [place], [address] Eosinophils/100 WBC (Bld) 2.7 % Normal 0-5 [facility] Comment on above: Performed By: #### L 500.2500, L100.0100 ####[facility] [address] [place], [address] Erythrocyte distribution width (RBC) [Ratio] 12.3 % Normal 11.6-14.6 [facility] Comment on above: Performed By: #### L 500.2500, L100.0100 ####[facility] [address] [place], [address] Hematocrit (Bld) [Volume fraction] 42.3 % Normal 37-47 [facility] Comment on above: Performed By: #### L 500.2500, L100.0100 ####[facility] [address] [place], [address] Hemoglobin (Bld) [Mass/Vol] 14.0 g/dL Normal 12.0-15.0 [facility] Comment on above: Performed By: #### L 500.2500, L100.0100 ####[facility] [address] [place], [address] IG% 0.400 Normal 0.0-0.9 [facility] Comment on above: Result Comment: IG% - Immature Granulocytes (promyelocytes, myelocytes andmetamyelocytes) > 1% indicates that a LEFT SHIFT is Present. Performed By: #### L 500.2500, L100.0100 ####[facility] [address] [place], [address] Lymphocytes/100 WBC (Bld) 34.1 % Normal 19-41 [facility] Comment on above: Performed By: #### L 500.2500, L100.0100 ####[facility] [address] [place], [address] MCH (RBC) [Entitic mass] 30.6 pg Normal 27.0-32.0 [facility] Comment on above: Performed By: #### L 500.2500, L100.0100 ####[facility] [address] [place], [address] MCHC (RBC) [Mass/Vol] 33.1 g/dL Normal 32-36 [facility] Comment on above: Performed By: #### L 500.2500, L100.0100 ####[facility] [address] [place], [address] MCV (RBC) [Entitic vol] 92.4 fL Normal 81-99 [facility] Comment on above: Performed By: #### L 500.2500, L100.0100 ####[facility] [address] [place], [address] Monocytes/100 WBC (Bld) 9.0 % Normal 0-10 [facility] Comment on above: Performed By: #### L 500.2500, L100.0100 ####[facility] [address] [place], [address] Neutrophils/100 WBC (Bld) 53.1 % Normal 47-70 [facility] Comment on above: Performed By: #### L 500.2500, L100.0100 ####[facility] [address] [place], [address] Nucleated RBC (Bld) [#/Vol] 0 10*3/uL Normal 0-5 [facility] Comment on above: Performed By: #### L 500.2500, L100.0100 ####[facility] [address] [place], [address] Platelet mean volume (Bld) [Entitic vol] 9.8 fL Normal 6.2-12.0 [facility] Comment on above: Performed By: #### L 500.2500, L100.0100 ####[facility] [address] [place], [address] Platelets (Bld) [#/Vol] 288 10*3/uL Normal 150-450 [facility] Comment on above: Performed By: #### L 500.2500, L100.0100 ####[facility] [address] [place], [address] RBC (Bld) [#/Vol] 4.58 10*6/uL Normal 4.2-5.4 [facility] Comment on above: Performed By: #### L 500.2500, L100.0100 ####[facility] [address] [place], [address] RDW SD 41.7 fl Normal 35.1-43.9 [facility] Comment on above: Performed By: #### L 500.2500, L100.0100 ####[facility] [address] [place], [address] WBC (Bld) [#/Vol] 10.9 10*3/uL Normal 4.4-11.0 [facility] Comment on above: Performed By: #### L 500.2500, L100.0100 ####[facility] [address] [place], [address] Carbon dioxide measurementOr dered By: Cal Billings on 01-23-2024 CO2 [Moles/Vol] 27.0 mmol/L 21.0-32.0 [facility] Chloride measurementOrdered By: Cal Billings on 01-23-2024 Chloride [Moles/Vol] 108 mmol/L High 98-107 [facility] Discharge Instructionon 12 Discharge Instruction Normal [facility] Eosinophil percentageOrdered By: Cal Billings on 01-23-2024 Eosinophils/100 WBC (Bld) 2.7 % 0-5 [facility] Erythrocyte distribution wid th ratioOrdered By: Cal Billings on 01-23-2024 Erythrocyte distribution width (RBC) [Ratio] 12.3 % 11.6-14.6 [facility] Erythrocyte distribution wid th standard deviationOrdered By: Cal Billings on 01-23-2024 Erythrocyte distribution width (RBC) [Entitic vol] 41.7 fL 35.1-43.9 [facility] Estimated glomerular filtrat ion rate (GFR) AmericanOrdered By: Cal Billings on 01-23-2024 Estimated GFR (MDRD) Amer 43 mL/min Low >60 [facility] Comment on above: GFR Calc Estimation of creatinine felix aranceOrdered By: Cal Billings on 01-23-2024 Estimated Creatinine Clearance Calc 26.27 ml/min [facility] Glomerular filtration rate ( GFR) estimationOrdered By: Cal Billings on 01-23-2024 Estimated GFR (MDRD) Non-Af Amer 36 mL/min Low >60 [facility] Comment on above: Non- GFR Calc Glucose measurementOrdered B y: Cal Billings on 01-23-2024 Glucose [Mass/Vol] 115 mg/dL High 74-106 [facility] Comment on above: Fasting Glucose resu lt from 100 to 125 mg/dL suggests IMPAIRED HOMEOSTASIS per A.D.A. criteria. Hematocrit Auto (Bld) [Volum e fraction]Ordered By: Cal Billings on 01-23-2024 Hematocrit (Bld) [Volume fraction] 42.3 % 37-47 [facility] Hemoglobin measurementOrdere d By: Cal Billings on 01-23-2024 Hemoglobin (Bld) [Mass/Vol] 14.0 g/dL 12.0-15.0 [facility] Immature granulocytes/100 WB C Auto (Bld)Ordered By: Cal Billings on 01-23-2024 Immature granulocytes/100 WBC (Bld) 0.400 % 0.0-0.9 [facility] Comment on above: IG% - Immature Granu locytes (promyelocytes, myelocytes and metamyelocytes) > 1% indicates that a LEFT SHIFT is Present. Lymphocytes Auto (Unsp spec) [#/Vol]Ordered By: Cal Billings on 01-23-2024 Lymphocytes (Bld) [#/Vol] 3.72 10*3/uL 0.83-4.51 [facility] Lymphocytes/100 WBC Auto (Un sp spec)Ordered By: Cal Billings on 01-23-2024 Lymphocytes/100 WBC (Bld) 34.1 % 19-41 [facility] MCV (mean corpuscular volume ) determinationOrdered By: Cal Billings on 01-23-2024 MCV (RBC) [Entitic vol] 92.4 fL 81-[address] [facility] Mean corpuscular hemoglobin (MCH) determinationOrdered By: Cal Billings on 01-23-2024 MCH (RBC) [Entitic mass] 30.6 pg 27.0-32.0 [facility] Mean corpuscular hemoglobin concentration (MCHC) determinationOrdered By: Cal Billings on 01-23-2024 MCHC (RBC) [Mass/Vol] 33.1 g/dL 32-36 [facility] Mean platelet volume determi nationOrdered By: Cal Billings on 01-23-2024 Platelet mean volume (Bld) [Entitic vol] 9.8 fL 6.2-12.0 [facility] Monocyte percentageOrdered B y: Cal Billings on 01-23-2024 Monocytes/100 WBC (Bld) 9.0 % 0-[address] [facility] Neutrophil percentageOrdered By: Cal Billings on 01-23-2024 Neutrophils/100 WBC (Bld) 53.1 % 47-70 [facility] Nucleated red blood cell per centageOrdered By: Cal Billings on 01-23-2024 Nucleated RBC/100 WBC (Bld) [Ratio] 0 % 0-5 [facility] Platelet countOrdered By: Imelda Billings on 01-23-2024 Platelets (Bld) [#/Vol] 288 10*3/uL 150-450 [facility] Potassium measurementOrdered By: Cal Billings on 01-23-2024 Potassium [Moles/Vol] 3.5 mmol/L 3.5-5.1 [facility] RBC Auto (Bld) [#/Vol]Ordere d By: Cal Billings on 01-23-2024 RBC (Bld) [#/Vol] 4.58 10*6/uL 4.2-5.4 [facility] Serum anion gap measurementO rdered By: Cal Billings on 01-23-2024 Anion gap [Moles/Vol] 7 mmol/L 5-15 [facility] Serum or plasma calcium bacilio urement (mass/volume)Ordered By: Cal Billings on 01-23-2024 Calcium [Mass/Vol] 10.5 mg/dL High 8.5-10.1 [facility] Serum or plasma creatinine m easurement (mass/volume)Ordered By: Cal Billings on 01-23-2024 Creatinine [Mass/Vol] 1.48 mg/dL High 0.55-1.02 [facility] Comment on above: The validity of the calculated GFR & GFRAA in patients over 70 years has not been determined. Clinical correlation is essential. Serum or plasma urea nitroge n measurement (mass/volume)Ordered By: Cal Billings on 01-23-2024 Urea nitrogen [Mass/Vol] 30 mg/dL High 7-18 [facility] Sodium levelOrdered By: Julito Billings on 01-23-2024 Sodium [Moles/Vol] 142 mmol/L 136-145 [facility] White blood cell (WBC) count Ordered By: Cal Billings on 01-23-2024 WBC (Bld) [#/Vol] 10.9 10*3/uL 4.4-11.0 [facility] Basic Metabolic Profile (BMP )on 01-22-2024 BUN/CRE 19.8 RATIO Normal 10-20 [facility] Comment on above: Performed By: #### L 500.2500, L100.0100 ####[facility] [address] [place], [address] CA,Total 10.3 mg/dL High 8.5-10.1 [facility] Comment on above: Performed By: #### L 500.2500, L100.0100 ####[facility] [address] [place], [address] Chloride [Moles/Vol] 109 mmol/L High 98-107 [facility] Comment on above: Performed By: #### L 500.2500, L100.0100 ####[facility] [address] [place], [address] CO2 [Moles/Vol] 28.0 mmol/L Normal 21.0-32.0 [facility] Comment on above: Performed By: #### L 500.2500, L100.0100 ####[facility] [address] [place], [address] Creatinine [Mass/Vol] 1.26 mg/dL High 0.55-1.02 [facility] Comment on above: Result Comment: The validity of the calculated GFR GFRAA in patients over70 years has not been determined. Clinical correlation isessential. Performed By: #### L 500.2500, L100.0100 ####[facility] [address] [place], [address] ECRCL 30.29 ml/min Normal [facility] Comment on above: Performed By: #### L 500.2500, L100.0100 ####[facility] [address] [place], [address] EST GFR - AA 52 mL/min Low >60 [facility] Comment on above: Result Comment: Afri can [place] GFR Calc Performed By: #### L 500.2500, L100.0100 ####[facility] [address] [place], [address] GAP 5 Normal 5-15 [facility] Comment on above: Performed By: #### L 500.2500, L100.0100 ####[facility] [address] [place], [address] GFR/1.73 sq M.predicted among non-blacks MDRD (S/P/Bld) [Vol rate/Area] 43 mL/min/{1.73_m2} Low >60 [facility] Comment on above: Result Comment: Non- GFR Calc Performed By: #### L 500.2500, L100.0100 ####[facility] [address] [place], [address] Glucose [Mass/Vol] 108 mg/dL High 74-106 [facility] Comment on above: Result Comment: Fast ing Glucose result from 100 to 125 mg/dLsuggests IMPAIRED HOMEOSTASIS per A.D.A. criteria. Performed By: #### L 500.2500, L100.0100 ####[facility] [address] [place], [address] Potassium [Moles/Vol] 3.4 mmol/L Low 3.5-5.1 [facility] Comment on above: Performed By: #### L 500.2500, L100.0100 ####[facility] [address] [place], [address] Sodium [Moles/Vol] 142 mmol/L Normal 136-145 [facility] Comment on above: Performed By: #### L 500.2500, L100.0100 ####[facility] [address] [place], [address] Urea nitrogen [Mass/Vol] 25 mg/dL High 7-18 [facility] Comment on above: Performed By: #### L 500.2500, L100.0100 ####[facility] [address] [place], [address] CBC W/Diff, Automatedon 12-1 0-2024 Absolute Lymph 4.30 X10 3/uL Normal 0.83-4.51 [facility] Comment on above: Performed By: #### L 500.2500, L100.0100 ####[facility] [address] [place], [address] Absolute Neut 4.8 X10 3/uL Normal 2.0-7.7 [facility] Comment on above: Performed By: #### L 500.2500, L100.0100 ####[facility] [address] [place], [address] Basophils/100 WBC (Bld) 0.9 % Normal 0-[address] [facility] Comment on above: Performed By: #### L 500.2500, L100.0100 ####[facility] [address] [place], [address] Eosinophils/100 WBC (Bld) 3.7 % Normal 0-5 [facility] Comment on above: Performed By: #### L 500.2500, L100.0100 ####[facility] [address] [place], [address] Erythrocyte distribution width (RBC) [Ratio] 12.3 % Normal 11.6-14.6 [facility] Comment on above: Performed By: #### L 500.2500, L100.0100 ####[facility] [address] [place], [address] Hematocrit (Bld) [Volume fraction] 43.0 % Normal 37-47 [facility] Comment on above: Performed By: #### L 500.2500, L100.0100 ####[facility] [address] [place], [address] Hemoglobin (Bld) [Mass/Vol] 13.8 g/dL Normal 12.0-15.0 [facility] Comment on above: Performed By: #### L 500.2500, L100.0100 ####[facility] [address] [place], [address] IG% 0.300 Normal 0.0-0.9 [facility] Comment on above: Result Comment: IG% - Immature Granulocytes (promyelocytes, myelocytes andmetamyelocytes) > 1% indicates that a LEFT SHIFT is Present. Performed By: #### L 500.2500, L100.0100 ####[facility] [address] [place], [address] Lymphocytes/100 WBC (Bld) 40.3 % Normal 19-41 [facility] Comment on above: Performed By: #### L 500.2500, L100.0100 ####[facility] [address] [place], [address] MCH (RBC) [Entitic mass] 29.9 pg Normal 27.0-32.0 [facility] Comment on above: Performed By: #### L 500.2500, L100.0100 ####[facility] [address] [place], [address] MCHC (RBC) [Mass/Vol] 32.1 g/dL Normal 32-36 [facility] Comment on above: Performed By: #### L 500.2500, L100.0100 ####[facility] [address] [place], [address] MCV (RBC) [Entitic vol] 93.3 fL Normal 81-[address] [facility] Comment on above: Performed By: #### L 500.2500, L100.0100 ####[facility] [address] [place], [address] Monocytes/100 WBC (Bld) 9.6 % Normal 0-10 [facility] Comment on above: Performed By: #### L 500.2500, L100.0100 ####[facility] [address] [place], [address] Neutrophils/100 WBC (Bld) 45.2 % Low 47-70 [facility] Comment on above: Performed By: #### L 500.2500, L100.0100 ####[facility] [address] [place], [address] Nucleated RBC (Bld) [#/Vol] 0 10*3/uL Normal 0-5 [facility] Comment on above: Performed By: #### L 500.2500, L100.0100 ####[facility] [address] [place], [place], [address] Platelet mean volume (Bld) [Entitic vol] 10.1 fL Normal 6.2-12.0 [facility] Comment on above: Performed By: #### L 500.2500, L100.0100 ####[facility] [address] [place], [address] Platelets (Bld) [#/Vol] 292 10*3/uL Normal 150-450 [facility] Comment on above: Performed By: #### L 500.2500, L100.0100 ####[facility] [address] [place], [address] RBC (Bld) [#/Vol] 4.61 10*6/uL Normal 4.2-5.4 [facility] Comment on above: Performed By: #### L 500.2500, L100.0100 ####[facility] [address] [place], [address] RDW SD 42.1 fl Normal 35.1-43.9 [facility] Comment on above: Performed By: #### L 500.2500, L100.0100 ####[facility] [address] [place], [address] WBC (Bld) [#/Vol] 10.7 10*3/uL Normal 4.4-11.0 [facility] Comment on above: Performed By: #### L 500.2500, L100.0100 ####[facility] [address] [place], [address] Basic Metabolic Profile (BMP )on 01-21-2024 BUN/CRE 16.8 RATIO Normal 10-20 [facility] Comment on above: Performed By: #### L 500.2500 ####[facility] [address] [place], [address] CA,Total 10.2 mg/dL High 8.5-10.1 [facility] Comment on above: Performed By: #### L 500.2500 ####[facility] [address] [place], [address] Chloride [Moles/Vol] 106 mmol/L Normal 98-107 [facility] Comment on above: Performed By: #### L 500.2500 ####[facility] [address] [place], [address] CO2 [Moles/Vol] 29.0 mmol/L Normal 21.0-32.0 [facility] Comment on above: Performed By: #### L 500.2500 ####[facility] [address] [place], [address] Creatinine [Mass/Vol] 1.37 mg/dL High 0.55-1.02 [facility] Comment on above: Result Comment: The validity of the calculated GFR GFRAA in patients over70 years has not been determined. Clinical correlation isessential. Performed By: #### L 500.2500 ####[facility] [address] [place], [address] ECRCL 27.88 ml/min Normal [facility] Comment on above: Performed By: #### L 500.2500 ####[facility] [address] [place], [address] EST GFR - AA 47 mL/min Low >60 [facility] Comment on above: Result Comment: Afri can [place]ian GFR Calc Performed By: #### L 500.2500 ####[facility] [address] [place], [address] GAP 5 Normal 5-15 [facility] Comment on above: Performed By: #### L 500.2500 ####[facility] [address] [place], [address] GFR/1.73 sq M.predicted among non-blacks MDRD (S/P/Bld) [Vol rate/Area] 39 mL/min/{1.73_m2} Low >60 [facility] Comment on above: Result Comment: Non- GFR Calc Performed By: #### L 500.2500 ####[facility] [address] [place], [address] Glucose [Mass/Vol] 111 mg/dL High 74-106 [facility] Comment on above: Result Comment: Fast ing Glucose result from 100 to 125 mg/dLsuggests IMPAIRED HOMEOSTASIS per A.D.A. criteria. Performed By: #### L 500.2500 ####[facility] [address] [place], [address] Potassium [Moles/Vol] 3.5 mmol/L Normal 3.5-5.1 [facility] Comment on above: Performed By: #### L 500.2500 ####[facility] [address] [place], [address] Sodium [Moles/Vol] 140 mmol/L Normal 136-145 [facility] Comment on above: Performed By: #### L 500.2500 ####[facility] [address] [place], [address] Urea nitrogen [Mass/Vol] 23 mg/dL High 7-18 [facility] Comment on above: Performed By: #### L 500.2500 ####[facility] [address] [place], [address] CBC W/Diff, Automatedon 12-0 9-2023 Absolute Lymph 4.95 X10 3/uL High 0.83-4.51 [facility] Comment on above: Performed By: #### L 100.0100 ####[facility] [address] [place], [address] Absolute Neut 5.6 X10 3/uL Normal 2.0-7.7 [facility] Comment on above: Performed By: #### L 100.0100 ####[facility] [address] [place], [address] Basophils/100 WBC (Bld) 1.0 % Normal 0-[address] [facility] Comment on above: Performed By: #### L 100.0100 ####[facility] [address] [place], [address] Eosinophils/100 WBC (Bld) 2.6 % Normal 0-5 [facility] Comment on above: Performed By: #### L 100.0100 ####[facility] [address] [place], [address] Erythrocyte distribution width (RBC) [Ratio] 12.3 % Normal 11.6-14.6 [facility] Comment on above: Performed By: #### L 100.0100 ####[facility] [address] [place], [address] Hematocrit (Bld) [Volume fraction] 41.3 % Normal 37-47 [facility] Comment on above: Performed By: #### L 100.0100 ####[facility] [address] [place], [address] Hemoglobin (Bld) [Mass/Vol] 13.6 g/dL Normal 12.0-15.0 [facility] Comment on above: Performed By: #### L 100.0100 ####[facility] [address] [place], [address] IG% 0.500 Normal 0.0-0.9 [facility] Comment on above: Result Comment: IG% - Immature Granulocytes (promyelocytes, myelocytes andmetamyelocytes) > 1% indicates that a LEFT SHIFT is Present. Performed By: #### L 100.0100 ####[facility] [address] [place], [address] Lymphocytes/100 WBC (Bld) 39.8 % Normal 19-41 [facility] Comment on above: Performed By: #### L 100.0100 ####[facility] [address] [place], [address] MCH (RBC) [Entitic mass] 30.6 pg Normal 27.0-32.0 [facility] Comment on above: Performed By: #### L 100.0100 ####[facility] [address] [place], [address] MCHC (RBC) [Mass/Vol] 32.9 g/dL Normal 32-36 [facility] Comment on above: Performed By: #### L 100.0100 ####[facility] [address] [place], [address] MCV (RBC) [Entitic vol] 93.0 fL Normal 81-99 [facility] Comment on above: Performed By: #### L 100.0100 ####[facility] [address] [place], [address] Monocytes/100 WBC (Bld) 11.0 % High 0-[address] [facility] Comment on above: Performed By: #### L 100.0100 ####[facility] [address] [place], [address] Neutrophils/100 WBC (Bld) 45.1 % Low 47-70 [facility] Comment on above: Performed By: #### L 100.0100 ####[facility] [address] [place], [address] Nucleated RBC (Bld) [#/Vol] 0 10*3/uL Normal 0-5 [facility] Comment on above: Performed By: #### L 100.0100 ####[facility] [address] [place], [address] Platelet mean volume (Bld) [Entitic vol] 9.9 fL Normal 6.2-12.0 [facility] Comment on above: Performed By: #### L 100.0100 ####[facility] [address] [place], [address] Platelets (Bld) [#/Vol] 292 10*3/uL Normal 150-450 [facility] Comment on above: Performed By: #### L 100.0100 ####[facility] [address] [place], [address] RBC (Bld) [#/Vol] 4.44 10*6/uL Normal 4.2-5.4 [facility] Comment on above: Performed By: #### L 100.0100 ####[facility] [address] [place], [address] RDW SD 42.2 fl Normal 35.1-43.9 [facility] Comment on above: Performed By: #### L 100.0100 ####[facility] [address] [place], [address] WBC (Bld) [#/Vol] 12.4 10*3/uL High 4.4-11.0 [facility] Comment on above: Performed By: #### L 100.0100 ####[facility] [address] [place], [address] Brain without Contraston Brain without Contrast Normal [facility] Consultation - Cardiologyon 01-19-2024 Consultation - Cardiology Normal [facility] Folates, (Folic Acid)on FOLATES 22.40 ng/mL Normal 3.1-55.4 [facility] Comment on above: Order Comment: Has Dulce Maria guerrero had X-rays with Contrast this admission? NN Performed By: #### L 503.0105, L500.4100, L506.0250, L501.9520, L501.9985 ####[facility] [address] [place], [address] Hemoglobin A1con 01-19-2024 HbA1c (Bld) [Mass fraction] 5.3 % Normal 3.8-5.6 [facility] Comment on above: Result Comment: Norm al < 5.7 % Prediabetic 5.7 - 6.4 % Diabetic >or= 6.5 % Please note range changes. Performed By: #### L 503.0105, L500.4100, L506.0250, L501.9520, L501.9985 ####[facility] [address] [place], [place], [address] Hemoglobin A1c percentageOrd ered By: Kal Nolan on 01-19-2024 HbA1c (Bld) [Mass fraction] 5.3 % 3.8-5.6 [facility] Comment on above: Normal < 5.7 % Predi abetic 5.7 - 6.4 % Diabetic >or= 6.5 % Please note range changes. Lipid Profileon 01-19-2024 Cholesterol [Mass/Vol] 184 mg/dL Normal 200 [facility] Comment on above: Order Comment: Has Dulce Maria guerrero had X-rays with Contrast this admission? NN Result Comment: <200 mg/dL Desirable 200-240 mg/dL Borderline >240 mg/dL High Risk Performed By: #### L 503.0105, L500.4100, L506.0250, L501.9520, L501.9985 ####[facility] [address] [place], [place], [address] Cholesterol in HDL [Mass/Vol] 53 mg/dL Normal [facility] Comment on above: Order Comment: Has Dulce Maria guerrero had X-rays with Contrast this admission? NN Result Comment: The drugs N-Acetylcysteine and Metamizole may falselydepress this assay. Reference Range HDL <40 mg/dL Low HDL Cholesterol HDL >or= 60 mg/dL High HDL Cholesterol Performed By: #### L 503.0105, L500.4100, L506.0250, L501.9520, L501.9985 ####[facility] [address] [place], [address] Cholesterol in LDL [Mass/Vol] 103 mg/dL Normal 0-130 [facility] Comment on above: Order Comment: Has Dulce Maria guerrero had X-rays with Contrast this admission? NN Performed By: #### L 503.0105, L500.4100, L506.0250, L501.9520, L501.9985 ####[facility] [address] [place], [address] Cholesterol in VLDL [Mass/Vol] 28 mg/dL Normal 5-40 [facility] Comment on above: Order Comment: Has Dulce Maria guerrero had X-rays with Contrast this admission? NN Performed By: #### L 503.0105, L500.4100, L506.0250, L501.9520, L501.9985 ####[facility] [address] [place], [address] Triglyceride [Mass/Vol] 140 mg/dL Normal [facility] Comment on above: Order Comment: Has Dulce Maria guerrero had X-rays with Contrast this admission? NN Result Comment: The drugs N-Acetylcysteine and Metamizole may falselydepress this assay.Serum Triglycerides Reference Interval Normal <150 mg/dL Borderline high 150 - 199 mg/dL High 200 - 499 mg/dL Very High > or = 500 mg/dL Performed By: #### L 503.0105, L500.4100, L506.0250, L501.9520, L501.9985 ####[facility] [address] [place], [address] Thyroid Stim Hormone (TSH)on 01-19-2024 TSH 0.827 uIU/mL Normal 0.358-3.740 [facility] Comment on above: Order Comment: Has P cesar had X-rays with Contrast this admission? NN Performed By: #### L 503.0105, L500.4100, L506.0250, L501.9520, L501.9985 ####[facility] [address] [place], [address] Vitamin B12on 01-19-2024 Cobalamin (Vitamin B12) [Mass/Vol] 666 pg/mL Normal 211-911 [facility] Comment on above: Performed By: #### L 503.0105, L500.4100, L506.0250, L501.9520, L501.9985 ####[facility] [address] [place], [place], [address] Vitamin B12 measurementOrder ed By: Kal Nolan on 01-19-2024 Cobalamin (Vitamin B12) [Mass/Vol] 666 pg/mL 211-911 [facility] 12 Lead EKGon 01-18-2024 12 Lead EKG Normal [facility] Abdomen/Pelvis W IV Cont ONL Yon 01-18-2024 Abdomen/Pelvis W IV Cont ONLY Normal [facility] Amorphous sediment detection in urine sediment by light microscopyOrdered By: Florencio Camargo on 01-18-2024 Amorphous sediment LM Ql (Urine sed) 1+ [facility] Atypical lymphocyte percenta geOrdered By: Florenciohaily Camargo on 01-18-2024 Atypical Lymphocytes 2+ % [facility] BNP (brain natriuretic pepti de measurement)Ordered By: Florencio Camargo on 01-18-2024 Natriuretic peptide B (Bld) [Mass/Vol] 271.6 pg/mL High 0-100 [facility] BNP,B-Type NATRIURETIC PEPTI Fartun 01-18-2024 Natriuretic peptide B (Bld) [Mass/Vol] 271.6 pg/mL High 0-100 [facility] Comment on above: Performed By: #### L 500.2500, L100.0100, L501.5425, L503.6620, L300.4310, L300.3900 ####[facility] [address] [place], [address] Bacteria LM.HPF (Urine sed) [#/Area]Ordered By: Florencio Camargo on 01-18-2024 Urine Bacteria RARE /hpf None Seen [facility] Basic Metabolic Profile (BMP )on 01-18-2024 BUN/CRE 17.0 RATIO Normal 10-20 [facility] Comment on above: Order Comment: 1Y Performed By: #### L 500.2500, L100.0100, L501.5425, L503.6620, L300.4310, L300.3900 ####[facility] [address] [place], [address] CA,Total 10.3 mg/dL High 8.5-10.1 [facility] Comment on above: Order Comment: 1Y Performed By: #### L 500.2500, L100.0100, L501.5425, L503.6620, L300.4310, L300.3900 ####[facility] [address] [place], [address] Chloride [Moles/Vol] 110 mmol/L High 98-107 [facility] Comment on above: Order Comment: 1Y Performed By: #### L 500.2500, L100.0100, L501.5425, L503.6620, L300.4310, L300.3900 ####[facility] [address] [place], [address] CO2 [Moles/Vol] 22.0 mmol/L Normal 21.0-32.0 [facility] Comment on above: Order Comment: 1Y Performed By: #### L 500.2500, L100.0100, L501.5425, L503.6620, L300.4310, L300.3900 ####[facility] [address] [place], [address] Creatinine [Mass/Vol] 1.06 mg/dL High 0.55-1.02 [facility] Comment on above: Order Comment: 1Y Result Comment: The validity of the calculated GFR GFRAA in patients over70 years has not been determined. Clinical correlation isessential. Performed By: #### L 500.2500, L100.0100, L501.5425, L503.6620, L300.4310, L300.3900 ####[facility] [address] [place], [address] ECRCL 37.11 ml/min Normal [facility] Comment on above: Order Comment: 1Y Performed By: #### L 500.2500, L100.0100, L501.5425, L503.6620, L300.4310, L300.3900 ####[facility] [address] [place], [address] EST GFR - AA 63 mL/min Normal >60 [facility] Comment on above: Order Comment: 1Y Result Comment: Afri can [place] GFR Calc Performed By: #### L 500.2500, L100.0100, L501.5425, L503.6620, L300.4310, L300.3900 ####[facility] [address] [place], [address] GAP 9 Normal 5-15 [facility] Comment on above: Order Comment: 1Y Performed By: #### L 500.2500, L100.0100, L501.5425, L503.6620, L300.4310, L300.3900 ####[facility] [address] [place], [address] GFR/1.73 sq M.predicted among non-blacks MDRD (S/P/Bld) [Vol rate/Area] 52 mL/min/{1.73_m2} Low >60 [facility] Comment on above: Order Comment: 1Y Result Comment: Non- GFR Calc Performed By: #### L 500.2500, L100.0100, L501.5425, L503.6620, L300.4310, L300.3900 ####[facility] [address] [place], [address] Glucose [Mass/Vol] 122 mg/dL High 74-106 [facility] Comment on above: Order Comment: 1Y Result Comment: Fast ing Glucose result from 100 to 125 mg/dLsuggests IMPAIRED HOMEOSTASIS per A.D.A. criteria. Performed By: #### L 500.2500, L100.0100, L501.5425, L503.6620, L300.4310, L300.3900 ####[facility] [address] [place], [address] Potassium [Moles/Vol] 3.4 mmol/L Low 3.5-5.1 [facility] Comment on above: Order Comment: 1Y Performed By: #### L 500.2500, L100.0100, L501.5425, L503.6620, L300.4310, L300.3900 ####[facility] [address] [place], [address] Sodium [Moles/Vol] 141 mmol/L Normal 136-145 [facility] Comment on above: Order Comment: 1Y Performed By: #### L 500.2500, L100.0100, L501.5425, L503.6620, L300.4310, L300.3900 ####[facility] [address] [place], [address] Urea nitrogen [Mass/Vol] 18 mg/dL Normal 7-18 [facility] Comment on above: Order Comment: 1Y Performed By: #### L 500.2500, L100.0100, L501.5425, L503.6620, L300.4310, L300.3900 ####[facility] [address] [place], [address] Bilirubin Test strip Ql (U)O rdered By: Florencio Camargo on 01-18-2024 Bilirubin Ql (U) Negative Negative [facility] Brain/Head without Contrasto n 01-18-2024 Brain/Head without Contrast Normal [facility] CBC W/Diff, Automatedon 12-0 OVALOCYTE RARE Normal [facility] Comment on above: Performed By: #### L 500.2500, L100.0100, L501.5425, L503.6620, L300.4310, L300.3900 ####[facility] [address] [place], [address] Anisocytosis Ql (Bld) 1+ Normal [facility] Comment on above: Performed By: #### L 500.2500, L100.0100, L501.5425, L503.6620, L300.4310, L300.3900 ####[facility] [address] [place], [address] ATYPICAL LYMPH 2+ Normal [facility] Comment on above: Performed By: #### L 500.2500, L100.0100, L501.5425, L503.6620, L300.4310, L300.3900 ####[facility] [address] [place], [address] MACROCYTOSIS 1+ Normal [facility] Comment on above: Performed By: #### L 500.2500, L100.0100, L501.5425, L503.6620, L300.4310, L300.3900 ####[facility] [address] [place], [address] PLT EST ADEQUATE Normal ADEQ [facility] Comment on above: Performed By: #### L 500.2500, L100.0100, L501.5425, L503.6620, L300.4310, L300.3900 ####[facility] [address] [place], [address] RED CELL MORPH N CHROM Normal NORM C C [facility] Comment on above: Performed By: #### L 500.2500, L100.0100, L501.5425, L503.6620, L300.4310, L300.3900 ####[facility] [address] [place], [address] SMEAR COMMENT SEE COMMENT Normal [facility] Comment on above: Result Comment: LYMP HOCYTOSIS NOTED Performed By: #### L 500.2500, L100.0100, L501.5425, L503.6620, L300.4310, L300.3900 ####[facility] [address] [place], [address] Chest PA and Lateralon 01-17 Chest PA and Lateral Normal [facility] Echo Completeon 01-18-2024 Echo Complete Normal [facility] Emergency Department Summary on 01-18-2024 Emergency Department Summary Normal [facility] Epithelial cells.squamous LM Ql (Urine sed)Ordered By: Florencio Camargo on 01-18-2024 Epithelial cells.squamous LM.HPF (Urine sed) [#/Area] 0 /[HPF] 5-10 [facility] Folic acid measurementOrdere d By: Kal Nolan on 01-18-2024 Folate 22.40 ng/mL 3.1-55.4 [facility] Glucose Ql (U)Ordered By: Toby Camargo on 01-18-2024 Urine Glucose (UA) Normal mg/dl Normal [facility] H AND P Exam - Hospitaliston 01-18-2024 H&P Exam - Hospitalist Normal [facility] High density lipoprotein (HD L) measurementOrdered By: Kal Nolan on 01-18-2024 Cholesterol in HDL [Mass/Vol] 53 mg/dL >40 [facility] Comment on above: The drugs N-Acetylcy steine and Metamizole may falsely depress this assay. Reference Range HDL <40 mg/dL Low HDL Cholesterol HDL >or= 60 mg/dL High HDL Cholesterol International normalized rat io (INR) calculationOrdered By: Florencio Camargo on 01-18-2024 INR Coag (Bld) [Relative time] 1.0 {INR} [facility] Ketones Test strip Ql (U)Ord ered By: Florencio Camargo on 01-18-2024 Ketones Ql (U) 15 mg/dl High Negative [facility] L501.4020on 01-18-2024 TROPONIN-I HS 113 pg/mL High 3.0-54.0 [facility] Comment on above: Order Comment: 'TROP ' Serial specimen #1, #2 or #3: 2 Result Comment: [employer] Note: New Test Units and Gender Specific Reference Ranges. For more information see Policy Stat Procedure [place] High Sensitivity Troponin (TNIH) and attachments. Performed By: #### L 501.4020 ####[facility] [address] [place], [place], [address] L501.5425on 01-18-2024 TROPONIN-I HS 107 pg/mL High 3.0-54.0 [facility] Comment on above: Order Comment: 1Y Result Comment: [employer] Note: New Test Units and Gender Specific Reference Ranges. For more information see Policy Stat Procedure [place] High Sensitivity Troponin (TNIH) and attachments. Performed By: #### L 500.2500, L100.0100, L501.5425, L503.6620, L300.4310, L300.3900 ####[facility] [address] [place], [address] Laboratory - Hematology and Cell countsOrdered By: Florencio Camargo on 01-18-2024 Anisocytosis Ql (Bld) 1+ [facility] Low density lipoprotein (LDL ) cholesterol measurementOrdered By: Kal Nolan on 01-18-2024 Cholesterol in LDL [Mass/Vol] 103 mg/dL 0-130 [facility] Macrocytes Ql (Bld)Ordered B y: Florencio Camargo on 01-18-2024 Macrocytosis 1+ [facility] Manual differential comment Matthew (Bld) [Interp]Ordered By: Florencio Camargo on 01-18-2024 Differential Comment SEE COMMENT [facility] Comment on above: LYMPHOCYTOSIS NOTED Microscopic analysis of urin e for red blood cells (RBC)Ordered By: Florencio Camargo on 01-18-2024 Urine RBC 0-5 SEEN /hpf 0-5 [facility] Mucus LM Ql (Urine sed)Order ed By: Florencio Camargo on 01-18-2024 Mucus Ql (Urine sed) 1+ /hpf [facility] Nitrite Test strip Ql (U)Ord ered By: Florencio Camargo on 01-18-2024 Nitrite Ql (U) Negative Negative [facility] Ovalocytes LM Ql (Bld)Ordere d By: Florencio Camargo on 01-18-2024 Ovalocytes RARE [facility] Partial Thromboplast Timeon 01-18-2024 aPTT Coag (Bld) [Time] 23.6 s Low 24.1-36.2 [facility] Comment on above: Performed By: #### L 500.2500, L100.0100, L501.5425, L503.6620, L300.4310, L300.3900 ####[facility] [address] [place], [place], [id number] Platelets LM Ql (Bld)Ordered By: Florencio Camargo on 01-18-2024 Platelet Estimate ADEQUATE ADEQ [facility] Protein Test strip Ql (U)Ord ered By: Florencio Camargo on 01-18-2024 Protein Ql (U) 100 mg/dl High Negative [facility] Prothrombin Time w/INRon INR Coag (PPP) [Relative time] 1.0 {INR} Normal [facility] Comment on above: Performed By: #### L 500.2500, L100.0100, L501.5425, L503.6620, L300.4310, L300.3900 ####[facility] [address] [place], [address] PT Coag (PPP) [Time] 12.9 s Normal 11.7-14.9 [facility] Comment on above: Performed By: #### L 500.2500, L100.0100, L501.5425, L503.6620, L300.4310, L300.3900 ####[facility] [address] [place], [address] Prothrombin timeOrdered By: Florencio Camargo on 01-18-2024 PT Coag (PPP) [Time] 12.9 s 11.7-14.9 [facility] RBC morphology finding Nom ( Bld)Ordered By: Florencio Camargo on 01-18-2024 Red Blood Cell Morphology N CHROM NORMAL NORM C&C [facility] Serum or plasma cholesterol measurement (mass/volume)Ordered By: Kal Nolan on 01-18-2024 Cholesterol [Mass/Vol] 184 mg/dL <200 [facility] Comment on above: <200 mg/dL Desirable 200-240 mg/dL Borderline >240 mg/dL High Risk TSH QnOrdered By: Kal bradley on 01-18-2024 Thyroid Stimulating Hormone (TSH) 0.827 uIU/mL 0.358-3.740 [facility] Triglycerides measurementOrd ered By: Kal Nolan on 01-18-2024 Triglyceride [Mass/Vol] 140 mg/dL <[address] [facility] Comment on above: The drugs N-Acetylcy steine and Metamizole may falsely depress this assay.Serum Triglycerides Reference Interval Normal <150 mg/dL Borderline high 150 - 199 mg/dL High 200 - 499 mg/dL Very High > or = 500 mg/dL Troponin IOrdered By: Florencio Camargo on 01-18-2024 Troponin I High Sensitivity 113 pg/mL High 3.0-54.0 [facility] Comment on above: Please Note: [place] t Units and Gender Specific Reference Ranges. For more information see Policy Stat Procedure [place] High Sensitivity Troponin (TNIH) and attachments. Urinalysis, Completeon 01-17 AMORPHOUS 1+ Normal [facility] Comment on above: Order Comment: LYNETTE CTOR TO SPECIFY Performed By: #### L 400.0001 ####[facility] [address] [place], [address] BACTERIA RARE Normal None Seen [facility] Comment on above: Order Comment: LYNETTE CTOR TO SPECIFY Performed By: #### L 400.0001 ####[facility] [address] [place], [address] Mucus Ql (Urine sed) 1+ /hpf Normal [facility] Comment on above: Order Comment: LYNETTE CTOR TO SPECIFY Performed By: #### L 400.0001 ####[facility] [address] [place], [address] RBC 0-5 SEEN Normal 0-5 [facility] Comment on above: Order Comment: LYNETTE CTOR TO SPECIFY Performed By: #### L 400.0001 ####[facility] [address] [place], [address] WBC 0-5 SEEN Normal 0-5 [facility] Comment on above: Order Comment: LYNETTE CTOR TO SPECIFY Performed By: #### L 400.0001 ####[facility] [address] [place], [address] EPI,SQUAMOUS 0 SEEN Normal 5-10 [facility] Comment on above: Order Comment: LYNETTE CTOR TO SPECIFY Performed By: #### L 400.0001 ####[facility] [address] [place], [address] Urine blood detectionOrdered By: Florencio Camargo on 01-18-2024 Urine Occult Blood 10 /ul High Negative [facility] Urine clarityOrdered By: Tomas Camargo on 01-18-2024 Clarity (U) Clear Clear [facility] Urine color determinationOrd ered By: Florencio Camargo on 01-18-2024 Color (U) Yellow Yellow [facility] Urine leukocyte esterase det ection by dipstickOrdered By: Florencio Camargo on 01-18-2024 Leukocyte esterase Test strip Ql (U) Negative Negative [facility] Urine pHOrdered By: Florencio Bourne on 01-18-2024 pH (U) 6.0 [pH] 5.0 - 8.0 [facility] Urine specific gravity measu rementOrdered By: Florencio Camargo on 01-18-2024 Specific gravity (U) [Rel density] 1.025 1.002-1.030 [facility] Urobilinogen Ql (U)Ordered B y: Florencio Camargo on 01-18-2024 Urine Urobilinogen Normal mg/dl Normal [facility] Very low density lipoprotein (VLDL) cholesterol measurementOrdered By: Kal Nolan on 01-18-2024 VLDL Cholesterol 28 mg/dL 5-40 [facility] White blood cell countOrdere d By: Florencio Camargo on 01-18-2024 Urine WBC 0-5 SEEN /hpf 0-5 [facility] aPTT Coag (PPP) [Time]Ordere d By: Florencio Camargo on 01-18-2024 aPTT Coag (Bld) [Time] 23.6 s Low 24.1-36.2 [facility] CBC W/Diff, Automatedon 11-0 Absolute Lymph 3.58 X10 3/uL Normal 0.83-4.51 [facility] Comment on above: Performed By: #### L 506.1000, L500.4050, L501.9520, L100.0100 ####[facility] [address] [place], [address] Absolute Neut 4.4 X10 3/uL Normal 2.0-7.7 [facility] Comment on above: Performed By: #### L 506.1000, L500.4050, L501.9520, L100.0100 ####[facility] [address] [place], [address] Basophils/100 WBC (Bld) 0.6 % Normal 0-[address] [facility] Comment on above: Performed By: #### L 506.1000, L500.4050, L501.9520, L100.0100 ####[facility] [address] [place], [address] Eosinophils/100 WBC (Bld) 3.9 % Normal 0-5 [facility] Comment on above: Performed By: #### L 506.1000, L500.4050, L501.9520, L100.0100 ####[facility] [address] [place], [address] Erythrocyte distribution width (RBC) [Ratio] 11.9 % Normal 11.6-14.6 [facility] Comment on above: Performed By: #### L 506.1000, L500.4050, L501.9520, L100.0100 ####[facility] [address] [place], [address] Hematocrit (Bld) [Volume fraction] 42.7 % Normal 37-47 [facility] Comment on above: Performed By: #### L 506.1000, L500.4050, L501.9520, L100.0100 ####[facility] [address] [place], [address] Hemoglobin (Bld) [Mass/Vol] 13.8 g/dL Normal 12.0-15.0 [facility] Comment on above: Performed By: #### L 506.1000, L500.4050, L501.9520, L100.0100 ####[facility] [address] [place], [address] IG% 0.300 Normal 0.0-0.9 [facility] Comment on above: Result Comment: IG% - Immature Granulocytes (promyelocytes, myelocytes andmetamyelocytes) > 1% indicates that a LEFT SHIFT is Present. Performed By: #### L 506.1000, L500.4050, L501.9520, L100.0100 ####[facility] [address] [place], [address] Lymphocytes/100 WBC (Bld) 38.6 % Normal 19-41 [facility] Comment on above: Performed By: #### L 506.1000, L500.4050, L501.9520, L100.0100 ####[facility] [address] [place], [address] MCH (RBC) [Entitic mass] 29.9 pg Normal 27.0-32.0 [facility] Comment on above: Performed By: #### L 506.1000, L500.4050, L501.9520, L100.0100 ####[facility] [address] [place], [address] MCHC (RBC) [Mass/Vol] 32.3 g/dL Normal 32-36 [facility] Comment on above: Performed By: #### L 506.1000, L500.4050, L501.9520, L100.0100 ####[facility] [address] [place], [address] MCV (RBC) [Entitic vol] 92.4 fL Normal 81-99 [facility] Comment on above: Performed By: #### L 506.1000, L500.4050, L501.9520, L100.0100 ####[facility] [address] [place], [address] Monocytes/100 WBC (Bld) 8.7 % Normal 0-[address] [facility] Comment on above: Performed By: #### L 506.1000, L500.4050, L501.9520, L100.0100 ####[facility] [address] [place], [address] Neutrophils/100 WBC (Bld) 47.9 % Normal 47-70 [facility] Comment on above: Performed By: #### L 506.1000, L500.4050, L501.9520, L100.0100 ####[facility] [address] [place], [address] Nucleated RBC (Bld) [#/Vol] 0 10*3/uL Normal 0-5 [facility] Comment on above: Performed By: #### L 506.1000, L500.4050, L501.9520, L100.0100 ####[facility] [address] [place], [address] Platelet mean volume (Bld) [Entitic vol] 9.9 fL Normal 6.2-12.0 [facility] Comment on above: Performed By: #### L 506.1000, L500.4050, L501.9520, L100.0100 ####[facility] [address] [place], [address] Platelets (Bld) [#/Vol] 284 10*3/uL Normal 150-450 [facility] Comment on above: Performed By: #### L 506.1000, L500.4050, L501.9520, L100.0100 ####[facility] [address] [place], [address] RBC (Bld) [#/Vol] 4.62 10*6/uL Normal 4.2-5.4 [facility] Comment on above: Performed By: #### L 506.1000, L500.4050, L501.9520, L100.0100 ####[facility] [address] [place], [address] RDW SD 40.5 fl Normal 35.1-43.9 [facility] Comment on above: Performed By: #### L 506.1000, L500.4050, L501.9520, L100.0100 ####[facility] [address] [place], [address] WBC (Bld) [#/Vol] 9.3 10*3/uL Normal 4.4-11.0 [facility] Comment on above: Performed By: #### L 506.1000, L500.4050, L501.9520, L100.0100 ####[facility] [address] [place], [address] Comprehensive Metabolic Prof ilon 12-20-2023 Albumin [Mass/Vol] 3.6 g/dL Normal 3.2-5.0 [facility] Comment on above: Performed By: #### L 506.1000, L500.4050, L501.9520, L100.0100 ####[facility] [address] [place], [address] Albumin/Globulin [Mass ratio] 1.2 {ratio} Normal 0.9-2.4 [facility] Comment on above: Performed By: #### L 506.1000, L500.4050, L501.9520, L100.0100 ####[facility] [address] [place], [address] ALK P 74 U/L Normal 45-117 [facility] Comment on above: Performed By: #### L 506.1000, L500.4050, L501.9520, L100.0100 ####[facility] [address] [place], [address] ALT [Catalytic activity/Vol] 23 U/L Normal 13-56 [facility] Comment on above: Performed By: #### L 506.1000, L500.4050, L501.9520, L100.0100 ####[facility] [address] [place], [address] AST [Catalytic activity/Vol] 28 U/L Normal 15-37 [facility] Comment on above: Performed By: #### L 506.1000, L500.4050, L501.9520, L100.0100 ####[facility] [address] [place], [address] Bilirubin [Mass/Vol] 0.70 mg/dL Normal 0.20-1.00 [facility] Comment on above: Result Comment: For patients on eltrombopag therapy, use of Dimension [place] TBIL is not recommended. Performed By: #### L 506.1000, L500.4050, L501.9520, L100.0100 ####[facility] [address] [place], [address] BUN/CRE 14.9 RATIO Normal 10-20 [facility] Comment on above: Performed By: #### L 506.1000, L500.4050, L501.9520, L100.0100 ####[facility] [address] [place], [address] CA,Total 9.8 mg/dL Normal 8.5-10.1 [facility] Comment on above: Performed By: #### L 506.1000, L500.4050, L501.9520, L100.0100 ####[facility] [address] [place], [address] Chloride [Moles/Vol] 110 mmol/L High 98-107 [facility] Comment on above: Performed By: #### L 506.1000, L500.4050, L501.9520, L100.0100 ####[facility] [address] [place], [address] CO2 [Moles/Vol] 27.0 mmol/L Normal 21.0-32.0 [facility] Comment on above: Performed By: #### L 506.1000, L500.4050, L501.9520, L100.0100 ####[facility] [address] [place], [address] Creatinine [Mass/Vol] 1.01 mg/dL Normal 0.55-1.02 [facility] Comment on above: Result Comment: The validity of the calculated GFR GFRAA in patients over70 years has not been determined. Clinical correlation isessential. Performed By: #### L 506.1000, L500.4050, L501.9520, L100.0100 ####[facility] [address] [place], [address] EST GFR - AA 67 mL/min Normal >60 [facility] Comment on above: Result Comment: Afri can [place] GFR Calc Performed By: #### L 506.1000, L500.4050, L501.9520, L100.0100 ####[facility] [address] [place], [address] GAP 3 Low 5-15 [facility] Comment on above: Performed By: #### L 506.1000, L500.4050, L501.9520, L100.0100 ####[facility] [address] [place], [address] GFR/1.73 sq M.predicted among non-blacks MDRD (S/P/Bld) [Vol rate/Area] 55 mL/min/{1.73_m2} Low >60 [facility] Comment on above: Result Comment: Non- GFR Calc Performed By: #### L 506.1000, L500.4050, L501.9520, L100.0100 ####[facility] [address] [place], [address] Globulin (S) [Mass/Vol] 2.9 g/dL Normal 2.2-4.2 [facility] Comment on above: Performed By: #### L 506.1000, L500.4050, L501.9520, L100.0100 ####[facility] [address] [place], [address] Glucose [Mass/Vol] 92 mg/dL Normal 74-106 [facility] Comment on above: Performed By: #### L 506.1000, L500.4050, L501.9520, L100.0100 ####[facility] [address] [place], [address] Potassium [Moles/Vol] 4.4 mmol/L Normal 3.5-5.1 [facility] Comment on above: Performed By: #### L 506.1000, L500.4050, L501.9520, L100.0100 ####[facility] [address] [place], [address] Sodium [Moles/Vol] 140 mmol/L Normal 136-145 [facility] Comment on above: Performed By: #### L 506.1000, L500.4050, L501.9520, L100.0100 ####[facility] [address] [place], [address] T PROT 6.5 g/dL Normal 6.4-8.2 [facility] Comment on above: Performed By: #### L 506.1000, L500.4050, L501.9520, L100.0100 ####[facility] [address] [place], [address] Urea nitrogen [Mass/Vol] 15 mg/dL Normal 7-18 [facility] Comment on above: Performed By: #### L 506.1000, L500.4050, L501.9520, L100.0100 ####[facility] [address] [place], [address] Thyroid Stim Hormone (TSH)on 12-20-2023 TSH 1.110 uIU/mL Normal 0.358-3.740 [facility] Comment on above: Performed By: #### L 506.1000, L500.4050, L501.9520, L100.0100 ####[facility] [address] [place], [address] Vitamin D,25 Hydroxyon 12-19 Vitamin D 25-OH 30.7 ng/mL Normal [facility] Comment on above: Result Comment: Cristina min D 25(OH) Status Range Deficiency <20 ng/mL (50nmol/L) Insufficiency 20 - 30 ng/mL (50 - 75 nmol/L) Sufficiency 30 - 100 ng/mL (75 - 250 nmol/L) Toxicity >100 ng/mL (>250 nmol/L) Performed By: #### L 506.1000, L500.4050, L501.9520, L100.0100 ####[facility] [address] [facility] [place], [address] No Panel InformationOrdered By: Brandon March on 05-30-2023 Vitamin D 25-Hydroxy 33.8 ng/mL [facility] Comment on above: Vitamin D 25(OH) Sta tus Range Deficiency <20 ng/mL (50nmol/L) Insufficiency 20 - 30 ng/mL (50 - 75 nmol/L) Sufficiency 30 - 100 ng/mL (75 - 250 nmol/L) Toxicity >100 ng/mL (>250 nmol/L) Serum or plasma thyroid stim ulating hormone (TSH) measurement (units/volume)Ordered By: Brandon March on 05-30-2023 TSH Qn 0.86 uIU/mL 0.358-3.74 [facility] Absolute lymphocyte countOrd ered By: Brandon March on 05-16-2023 Lymphocytes Auto (Unsp spec) [#/Vol] 3.79 10*3/uL 0.83-4.51 [facility] Automated lymphocyte count a s percentage of total leukocytesOrdered By: Brandon March on 05-16-2023 Lymphocytes/100 WBC Auto (Unsp spec) 38.0 % 19-41 [facility] Basophil percentageOrdered B y: Brandon March on 05-16-2023 Basophils/100 WBC (Bld) 0.5 % 0-[address] [facility] Chloride [Moles/Vol] 107 mmol/L 98-107 [facility] Eosinophils/100 WBC (Bld) 1.3 % 0-5 [facility] Glucose [Mass/Vol] 118 mg/dL 74-106 [facility] Comment on above: Fasting Glucose resu lt from 100 to 125 mg/dL suggests IMPAIRED HOMEOSTASIS per A.D.A. criteria. Hemoglobin (Bld) [Mass/Vol] 13.8 g/dL 12.0-15.0 [facility] Monocytes/100 WBC (Bld) 7.8 % 0-[address] [facility] Neutrophils (Bld) [#/Vol] 5.2 10*3/uL 2.0-7.7 [facility] Neutrophils/100 WBC (Bld) 52.3 % 47-70 [facility] Potassium [Moles/Vol] 3.8 mmol/L 3.5-5.1 [facility] Sodium [Moles/Vol] 139 mmol/L 136-145 [facility] WBC (Bld) [#/Vol] 10.0 10*3/uL 4.4-11.0 [facility] Bilirubin Test strip Ql (U)O rdered By: Brandon March on 05-16-2023 Bilirubin Ql (U) Negative Negative [facility] Culture, urineOrdered By: Dony March on 05-16-2023 Bacteria identified Cx Nom (U) Mixed Gram Pos & Gram Neg Org [facility] Determination of erythrocyte mean corpuscular volume (MCV)Ordered By: Brandon March on 05-16-2023 MCV (RBC) [Entitic vol] 90.9 fL 81-[address] [facility] Erythrocyte distribution wid th ratioOrdered By: Brandon March on 05-16-2023 Erythrocyte distribution width (RBC) [Ratio] 11.9 % 11.6-14.6 [facility] Erythrocyte distribution wid th standard deviationOrdered By: Brandon March on 05-16-2023 Erythrocyte distribution width (RBC) [Entitic vol] 39.5 fL 35.1-43.9 [facility] Hematocrit Auto (Bld) [Volum e fraction]Ordered By: Brandon March on 05-16-2023 Hematocrit (Bld) [Volume fraction] 40.9 % 37-47 [facility] Immature granulocytes/100 WB C Auto (Bld)Ordered By: Brandon March on 05-16-2023 Immature granulocytes/100 WBC (Bld) 0.100 % 0.0-0.9 [facility] Comment on above: IG% - Immature Granu locytes (promyelocytes, myelocytes and metamyelocytes) > 1% indicates that a LEFT SHIFT is Present. Ketones Test strip Ql (U)Ord ered By: Brandon March on 05-16-2023 Ketones Ql (U) Negative Negative [facility] Laboratory - Chemistry and C hemistry - challengeOrdered By: Brandon March on 05-16-2023 CO2 [Moles/Vol] 27.0 mmol/L 21.0-32.0 [facility] Urea nitrogen/Creatinine [Mass ratio] 17.7 mg/mg 10-20 [facility] Laboratory - Hematology and Cell countsOrdered By: Brandon March on 05-16-2023 MCH (RBC) [Entitic mass] 30.7 pg 27.0-32.0 [facility] MCHC (RBC) [Mass/Vol] 33.7 g/dL 32-36 [facility] Nucleated RBC/100 WBC (Bld) [Ratio] 0 % 0-5 [facility] Platelet mean volume (Bld) [Entitic vol] 10.5 fL 6.2-12.0 [facility] Platelets (Bld) [#/Vol] 279 10*3/uL 150-450 [facility] Nitrite Test strip Ql (U)Ord ered By: Brandon March on 05-16-2023 Nitrite Ql (U) Negative Negative [facility] No Panel InformationOrdered By: Brandon March on 05-16-2023 Estimated GFR (MDRD) Amer 53 mL/min >60 [facility] Comment on above: GFR Calc Estimated GFR (MDRD) Non-Af Amer 44 mL/min >60 [facility] Comment on above: Non- GFR Calc Protein Test strip Ql (U)Ord ered By: Brandon March on 05-16-2023 Protein Ql (U) Negative Negative [facility] RBC Auto (Bld) [#/Vol]Ordere d By: Brandon March on 05-16-2023 RBC (Bld) [#/Vol] 4.50 10*6/uL 4.2-5.4 [facility] Serum or plasma calcium bacilio urement (mass/volume)Ordered By: Brandon March on 05-16-2023 Calcium [Mass/Vol] 10.1 mg/dL 8.5-10.1 [facility] Serum or plasma creatinine m easurement (mass/volume)Ordered By: Brandon March on 05-16-2023 Creatinine [Mass/Vol] 1.24 mg/dL 0.55-1.02 [facility] Comment on above: The validity of the calculated GFR & GFRAA in patients over 70 years has not been determined. Clinical correlation is essential. Serum or plasma urea nitroge n measurement (mass/volume)Ordered By: Brandon March on 05-16-2023 Urea nitrogen [Mass/Vol] 22 mg/dL 7-18 [facility] Thin prep Papanicolaou smear with manual screeningOrdered By: Brandon March on 05-16-2023 Thin prep Papanicolaou smear with manual screening 5 5-15 [facility] Urine blood detectionOrdered By: Brandon March on 05-16-2023 RBC Ql (U) Negative Negative [facility] Urine clarityOrdered By: Brandon March on 05-16-2023 Clarity (U) Clear Clear [facility] Urine color determinationOrd ered By: Brandon March on 05-16-2023 Color (U) Yellow Yellow [facility] Urine glucose detectionOrder ed By: Brandon March on 05-16-2023 Glucose Ql (U) Normal mg/dl Normal [facility] Urine leukocyte esterase det ection by dipstickOrdered By: Brandon March on 05-16-2023 Leukocyte esterase Test strip Ql (U) 100 /ul Negative [facility] Urine pHOrdered By: Brandon March on 05-16-2023 pH (U) 6.0 [pH] 5.0 - 8.0 [facility] Urine specific gravity measu rementOrdered By: Brandon March on 05-16-2023 Specific gravity (U) [Rel density] 1.010 1.002-1.030 [facility] Urine urobilinogen measureme ntOrdered By: Brandon March on 05-16-2023 Urobilinogen Ql (U) Normal mg/dl Normal [facility] No Panel InformationOrdered By: Serjio Ramesh on 03-14-2023 Miscellaneous Test See comment [facility] Comment on above: Sent directly to [facility] per ordering physician. Absolute lymphocyte countOrd ered By: Brandon March on 11-07-2022 Lymphocytes Auto (Unsp spec) [#/Vol] 2.84 10*3/uL 0.83-4.51 [facility] Basophil percentageOrdered B y: Brandon March on 11-07-2022 Basophils/100 WBC (Bld) 0.7 % 0-[address] [facility] Bilirubin [Mass/Vol] 0.80 mg/dL 0.20-1.00 [facility] Comment on above: For patients on eltr ombopag therapy, use of Dimension [place] TBIL is not recommended. Chloride [Moles/Vol] 111 mmol/L 98-107 [facility] Eosinophils/100 WBC (Bld) 2.8 % 0-5 [facility] Glucose [Mass/Vol] 111 mg/dL 74-106 [facility] Comment on above: Fasting Glucose resu lt from 100 to 125 mg/dL suggests IMPAIRED HOMEOSTASIS per A.D.A. criteria. Neutrophils (Bld) [#/Vol] 5.4 10*3/uL 2.0-7.7 [facility] Neutrophils/100 WBC (Bld) 56.5 % 47-70 [facility] Potassium [Moles/Vol] 4.0 mmol/L 3.5-5.1 [facility] Protein [Mass/Vol] 6.6 g/dL 6.4-8.2 [facility] Sodium [Moles/Vol] 143 mmol/L 136-145 [facility] WBC (Bld) [#/Vol] 9.5 10*3/uL 4.4-11.0 [facility] Blood erythrocytes count (nu mber/volume)Ordered By: Brandon March on 11-07-2022 RBC (Bld) [#/Vol] 4.41 10*6/uL 4.2-5.4 [facility] Blood hemoglobin measurement (mass/volume)Ordered By: Brandon March on 11-07-2022 Hemoglobin (Bld) [Mass/Vol] 13.7 g/dL 12.0-15.0 [facility] Blood lymphocytes/100 leukoc ytesOrdered By: Brandon Joaquim on 11-07-2022 Lymphocytes/100 WBC (Bld) 29.8 % 19-41 [facility] Blood monocytes/100 leukocyt esOrdered By: [facility] on 11-07-2022 Monocytes/100 WBC (Bld) 10.0 % 0-[address] [facility] Blood platelet mean volumeOr dered By: [facility] on 11-07-2022 Platelet mean volume (Bld) [Entitic vol] 10.3 fL 6.2-12.0 [facility] Determination of erythrocyte mean corpuscular volume (MCV)Ordered By: [facility] on 11-07-2022 MCV (RBC) [Entitic vol] 93.0 fL 81-[address] [facility] Hematocrit Auto (Bld) [Volum e fraction]Ordered By: [facility] on 11-07-2022 Hematocrit (Bld) [Volume fraction] 41.0 % 37-47 [facility] Laboratory - Chemistry and C hemistry - challengeOrdered By: [facility] on 11-07-2022 ALP [Catalytic activity/Vol] 64 U/L 45-117 [facility] ALT [Catalytic activity/Vol] 31 U/L 13-56 [facility] CO2 [Moles/Vol] 27.0 mmol/L 21.0-32.0 [facility] Globulin (S) [Mass/Vol] 3.0 g/dL 2.2-4.[address] [facility] Urea nitrogen/Creatinine [Mass ratio] 26.1 mg/mg 10-20 [facility] - Hematology and Cell countsOrdered By: [facility] on 11-07-2022 Erythrocyte distribution width (RBC) [Entitic vol] 42.2 fL 35.1-43.9 [facility] Erythrocyte distribution width (RBC) [Ratio] 12.2 % 11.6-14.6 [facility] Immature granulocytes/100 WBC (Bld) 0.200 % 0.0-0.9 [facility] Comment on above: IG% - Immature Granu locytes (promyelocytes, myelocytes and metamyelocytes) > 1% indicates that a LEFT SHIFT is Present. MCH (RBC) [Entitic mass] 31.1 pg 27.0-32.0 [facility] Nucleated RBC/100 WBC (Bld) [Ratio] 0 % 0-5 [facility] ([facility]) [Mass/Vol]Or dered By: Brandon March on 11-07-2022 MCHC (RBC) [Mass/Vol] 33.4 g/dL 32-36 [facility] No Panel InformationOrdered By: Brandon March on 11-07-2022 Estimated GFR (MDRD) Amer 60 mL/min >60 [facility] Comment on above: GFR Calc Estimated GFR (MDRD) Non-Af Amer 50 mL/min >60 [facility] Comment on above: Non- GFR Calc Thyroid Stimulating Hormone (TSH) 0.49 uIU/mL 0.358-3.74 [facility] Vitamin D 25-Hydroxy 36.2 ng/mL [facility] Comment on above: Vitamin D 25(OH) Sta tus Range Deficiency <20 ng/mL (50nmol/L) Insufficiency 20 - 30 ng/mL (50 - 75 nmol/L) Sufficiency 30 - 100 ng/mL (75 - 250 nmol/L) Toxicity >100 ng/mL (>250 nmol/L) Platelets bldOrdered By: Brandon March on 11-07-2022 Platelets (Bld) [#/Vol] 288 10*3/uL 150-450 [facility] Serum or plasma albumin bacilio urement (mass/volume)Ordered By: Brandon March on 11-07-2022 Albumin [Mass/Vol] 3.6 g/dL 3.2-5.0 [facility] Serum or plasma albumin/glob ulin mass ratioOrdered By: Brandon March on 11-07-2022 Albumin/Globulin [Mass ratio] 1.2 {ratio} 0.9-2.4 [facility] Serum or plasma calcium bacilio urement (mass/volume)Ordered By: Brandon March on 11-07-2022 Calcium [Mass/Vol] 9.8 mg/dL 8.5-10.1 [facility] Serum or plasma creatinine m easurement (mass/volume)Ordered By: Brandon March on 11-07-2022 Creatinine [Mass/Vol] 1.11 mg/dL 0.55-1.02 [facility] Comment on above: The validity of the calculated GFR & GFRAA in patients over 70 years has not been determined. Clinical correlation is essential. Serum or plasma urea nitroge n measurement (mass/volume)Ordered By: Brandon March on 11-07-2022 Urea nitrogen [Mass/Vol] 29 mg/dL 7-18 [facility] Thin prep Papanicolaou smear with manual screeningOrdered By: Brandon March on 11-07-2022 Thin prep Papanicolaou smear with manual screening 26 U/L 15-37 [facility] Thin prep Papanicolaou smear with manual screening 5 5-15 [facility] Absolute lymphocyte countOrd ered By: Brandon March on 10-11-2022 Lymphocytes Auto (Unsp spec) [#/Vol] 4.06 10*3/uL 0.83-4.51 [facility] Basophil percentageOrdered B y: Brandon March on 10-11-2022 Basophils/100 WBC (Bld) 0.7 % 0-1 [facility] [place] Bilirubin [Mass/Vol] 0.70 mg/dL 0.20-1.00 [facility] Comment on above: For patients on eltr ombopag therapy, use of Dimension [place] TBIL is not recommended. Chloride [Moles/Vol] 108 mmol/L 98-107 [facility] Eosinophils/100 WBC (Bld) 2.4 % 0-5 [facility] Glucose [Mass/Vol] 105 mg/dL 74-106 [facility] Comment on above: Fasting Glucose resu lt from 100 to 125 mg/dL suggests IMPAIRED HOMEOSTASIS per A.D.A. criteria. Neutrophils (Bld) [#/Vol] 6.8 10*3/uL 2.0-7.7 [facility] Neutrophils/100 WBC (Bld) 55.0 % 47-70 [facility] Potassium [Moles/Vol] 4.0 mmol/L 3.5-5.1 [facility] Protein [Mass/Vol] 7.3 g/dL 6.4-8.2 [facility] Sodium [Moles/Vol] 140 mmol/L 136-145 [facility] WBC (Bld) [#/Vol] 12.3 10*3/uL 4.4-11.0 [facility] Blood erythrocytes count (nu mber/volume)Ordered By: Brandon March on 10-11-2022 RBC (Bld) [#/Vol] 5.01 10*6/uL 4.2-5.4 [facility] Blood hemoglobin measurement (mass/volume)Ordered By: Brandon March on 10-11-2022 Hemoglobin (Bld) [Mass/Vol] 15.2 g/dL 12.0-15.0 [facility] Blood lymphocytes/100 leukoc ytesOrdered By: Brandon March on 10-11-2022 Lymphocytes/100 WBC (Bld) 33.0 % 19-41 [facility] Blood monocytes/100 leukocyt esOrdered By: Brandon March on 10-11-2022 Monocytes/100 WBC (Bld) 8.6 % 0-[address] [facility] Blood platelet mean volumeOr dered By: Brandon March on 10-11-2022 Platelet mean volume (Bld) [Entitic vol] 10.3 fL 6.2-12.0 [facility] Culture, urineOrdered By: Dony March on 10-11-2022 Bacteria identified Cx Nom (U) Positive [facility] Determination of erythrocyte mean corpuscular volume (MCV)Ordered By: Brandon March on 10-11-2022 MCV (RBC) [Entitic vol] 93.0 fL 81-[address] [facility] Hematocrit Auto (Bld) [Volum e fraction]Ordered By: Brandon March on 10-11-2022 Hematocrit (Bld) [Volume fraction] 46.6 % 37-47 [facility] Laboratory - Chemistry and C hemistry - challengeOrdered By: Brandon March on 10-11-2022 ALP [Catalytic activity/Vol] 70 U/L 45-117 [facility] ALT [Catalytic activity/Vol] 33 U/L 13-56 [facility] CO2 [Moles/Vol] 26.0 mmol/L 21.0-32.0 [facility] Globulin (S) [Mass/Vol] 3.2 g/dL 2.2-4.2 [facility] [place] Urea nitrogen/Creatinine [Mass ratio] 18.8 mg/mg 10-20 [facility] Laboratory - Hematology and Cell countsOrdered By: Brandon March on 10-11-2022 Erythrocyte distribution width (RBC) [Entitic vol] 41.3 fL 35.1-43.9 [facility] Erythrocyte distribution width (RBC) [Ratio] 12.0 % 11.6-14.6 [facility] Immature granulocytes/100 WBC (Bld) 0.300 % 0.0-0.9 [facility] Comment on above: IG% - Immature Granu locytes (promyelocytes, myelocytes and metamyelocytes) > 1% indicates that a LEFT SHIFT is Present. MCH (RBC) [Entitic mass] 30.3 pg 27.0-32.0 [facility] Nucleated RBC/100 WBC (Bld) [Ratio] 0 % 0-5 [facility] MCHC Auto (RBC) [Mass/Vol]Or dered By: Brandon March on 10-11-2022 MCHC (RBC) [Mass/Vol] 32.6 g/dL 32-36 [facility] No Panel InformationOrdered By: Brandon March on 10-11-2022 Estimated GFR (MDRD) Amer 60 mL/min >60 [facility] Comment on above: GFR Calc Estimated GFR (MDRD) Non-Af Amer 49 mL/min >60 [facility] Comment on above: Non- GFR Calc Thyroid Stimulating Hormone (TSH) 1.02 uIU/mL 0.358-3.74 [facility] Platelets bldOrdered By: Brandon March on 10-11-2022 Platelets (Bld) [#/Vol] 330 10*3/uL 150-450 [facility] Serum or plasma albumin bacilio urement (mass/volume)Ordered By: Brandon March on 10-11-2022 Albumin [Mass/Vol] 4.1 g/dL 3.2-5.0 [facility] Serum or plasma albumin/glob ulin mass ratioOrdered By: Brandon March 10-11-2022 Albumin/Globulin [Mass ratio] 1.3 {ratio} 0.9-2.4 [facility] Serum or plasma calcium bacilio urement (mass/volume)Ordered By: Brandon March 10-11-2022 Calcium [Mass/Vol] 10.9 mg/dL 8.5-10.1 [facility] Serum or plasma creatinine m easurement (mass/volume)Ordered By: Brandon March on 10-11-2022 Creatinine [Mass/Vol] 1.12 mg/dL 0.55-1.02 [facility] Comment on above: The validity of the calculated GFR & GFRAA in patients over 70 years has not been determined. Clinical correlation is essential. Serum or plasma urea nitroge n measurement (mass/volume)Ordered By: Brandon March on 10-11-2022 Urea nitrogen [Mass/Vol] 21 mg/dL 7-18 [facility] Thin prep Papanicolaou smear with manual screeningOrdered By: Brandon March on 10-11-2022 Thin prep Papanicolaou smear with manual screening 35 U/L 15-37 [facility] Thin prep Papanicolaou smear with manual screening 6 5-15 [facility] SARS-CoV-2 (COVID-19) Ag IA. rapid Ql (Resp)Ordered By: Dr. March on 07-14-2022 SARS-CoV-2 Antigen (Rapid) SARS-CoV-2 (COVID 19) [facility] Bacteria identified Cx Nom ( Wound)Ordered By: Dr. Atkinson on 06-24-2022 Wound Culture Staphylococcus epidermidis [facility] Gram stain for investigation of transfusion reactionOrdered By: Dr. Atkinson on 06-22-2022 Microscopic observation Gram stain Nom (Unsp spec) [facility] Absolute lymphocyte countOrd ered By: Dr. March on 05-17-2022 Lymphocytes Auto (Unsp spec) [#/Vol] 4.60 10*3/uL 0.83-4.51 [facility] Basophil percentageOrdered B y: Dr. March on 05-17-2022 Basophils/100 WBC (Bld) 0.5 % 0-1 [facility] [place] Bilirubin [Mass/Vol] 0.50 mg/dL 0.20-1.00 [facility] Comment on above: For patients on eltr ombopag therapy, use of Dimension [place] TBIL is not recommended. Chloride [Moles/Vol] 108 mmol/L 98-107 [facility] Eosinophils/100 WBC (Bld) 1.5 % 0-5 [facility] Glucose [Mass/Vol] 68 mg/dL 74-106 [facility] Neutrophils (Bld) [#/Vol] 7.7 10*3/uL 2.0-7.7 [facility] Neutrophils/100 WBC (Bld) 56.4 % 47-70 [facility] Potassium [Moles/Vol] 3.7 mmol/L 3.5-5.1 [facility] Protein [Mass/Vol] 6.9 g/dL 6.4-8.2 [facility] Sodium [Moles/Vol] 140 mmol/L 136-145 [facility] WBC (Bld) [#/Vol] 13.6 10*3/uL 4.4-11.0 [facility] Blood erythrocytes count (nu mber/volume)Ordered By: Dr. March on 05-17-2022 RBC (Bld) [#/Vol] 5.10 10*6/uL 4.2-5.4 [facility] Blood hemoglobin measurement (mass/volume)Ordered By: Dr. March on 05-17-2022 Hemoglobin (Bld) [Mass/Vol] 15.3 g/dL 12.0-15.0 [facility] Blood lymphocytes/100 leukoc ytesOrdered By: Dr. March on 05-17-2022 Lymphocytes/100 WBC (Bld) 33.8 % 19-41 [facility] Blood monocytes/100 leukocyt esOrdered By: Dr. March on 05-17-2022 Monocytes/100 WBC (Bld) 7.5 % 0-[address] [facility] Blood platelet mean volumeOr dered By: Dr. March on 05-17-2022 Platelet mean volume (Bld) [Entitic vol] 10.9 fL 6.2-12.0 [facility] Determination of erythrocyte mean corpuscular volume (MCV)Ordered By: Dr. March on 05-17-2022 MCV (RBC) [Entitic vol] 92.2 fL 81-[address] [facility] Hematocrit Auto (Bld) [Volum e fraction]Ordered By: Dr. March on 05-17-2022 Hematocrit (Bld) [Volume fraction] 47.0 % 37-47 [facility] Laboratory - Chemistry and C hemistry - challengeOrdered By: Dr. March on 05-17-2022 ALP [Catalytic activity/Vol] 77 U/L 45-117 [facility] ALT [Catalytic activity/Vol] 30 U/L 13-56 [facility] CO2 [Moles/Vol] 23.0 mmol/L 21.0-32.0 [facility] Globulin (S) [Mass/Vol] 3.0 g/dL 2.2-4.[address] [facility] Urea nitrogen/Creatinine [Mass ratio] 16.7 mg/mg 10-20 [facility] Laboratory - Hematology and Cell countsOrdered By: Dr. March on 05-17-2022 Erythrocyte distribution width (RBC) [Entitic vol] 42.3 fL 35.1-43.9 [facility] Erythrocyte distribution width (RBC) [Ratio] 12.3 % 11.6-14.6 [facility] Immature granulocytes/100 WBC (Bld) 0.300 % 0.0-0.9 [facility] Comment on above: IG% - Immature Granu locytes (promyelocytes, myelocytes and metamyelocytes) > 1% indicates that a LEFT SHIFT is Present. MCH (RBC) [Entitic mass] 30.0 pg 27.0-32.0 [facility] Nucleated RBC/100 WBC (Bld) [Ratio] 0.1 % 0-5 [facility] MCHC Auto (RBC) [Mass/Vol]Or dered By: Dr. March on 05-17-2022 MCHC (RBC) [Mass/Vol] 32.6 g/dL 32-36 [facility] No Panel InformationOrdered By: Dr. March on 05-17-2022 Estimated GFR (MDRD) Amer 39 mL/min >60 [facility] Comment on above: GFR Calc Estimated GFR (MDRD) Non-Af Amer 32 mL/min >60 [facility] Comment on above: Non- GFR Calc Thyroid Stimulating Hormone (TSH) 0.94 uIU/mL 0.358-3.74 [facility] Vitamin D 25-Hydroxy 37.9 ng/mL [facility] Comment on above: Vitamin D 25(OH) Sta tus Range Deficiency <20 ng/mL (50nmol/L) Insufficiency 20 - 30 ng/mL (50 - 75 nmol/L) Sufficiency 30 - 100 ng/mL (75 - 250 nmol/L) Toxicity >100 ng/mL (>250 nmol/L) Platelets bldOrdered By: Dr. March on 05-17-2022 Platelets (Bld) [#/Vol] 299 10*3/uL 150-450 [facility] Serum or plasma albumin bacilio urement (mass/volume)Ordered By: Dr. March on 05-17-2022 Albumin [Mass/Vol] 3.9 g/dL 3.2-5.0 [facility] Serum or plasma albumin/glob ulin mass ratioOrdered By: Dr. March on 05-17-2022 Albumin/Globulin [Mass ratio] 1.3 {ratio} 0.9-2.4 [facility] Serum or plasma calcium bacilio urement (mass/volume)Ordered By: Dr. March on 05-17-2022 Calcium [Mass/Vol] 10.4 mg/dL 8.5-10.1 [facility] Serum or plasma creatinine m easurement (mass/volume)Ordered By: Dr. March on 05-17-2022 Creatinine [Mass/Vol] 1.62 mg/dL 0.55-1.02 [facility] Comment on above: The validity of the calculated GFR & GFRAA in patients over 70 years has not been determined. Clinical correlation is essential. Serum or plasma urea nitroge n measurement (mass/volume)Ordered By: Dr. March on 05-17-2022 Urea nitrogen [Mass/Vol] 27 mg/dL 7-18 [facility] Thin prep Papanicolaou smear with manual screeningOrdered By: Dr. March on 05-17-2022 Thin prep Papanicolaou smear with manual screening 28 U/L 15-37 [facility] Thin prep Papanicolaou smear with manual screening 9 5-15 [facility] Aldolase ser/plasOrdered By: Sina Bloom on 03-22-2022 Aldolase [Catalytic activity/Vol] 5.2 mU/mL 3.3-10.3 [facility] Comment on above: Performed at: [address] [id number] Director: Korey Chilel PhD, Phone: [phone] Basophil percentageOrdered B y: Sina Bloom on 03-22-2022 Bilirubin [Mass/Vol] 0.70 mg/dL 0.20-1.00 [facility] Comment on above: For patients on eltr ombopag therapy, use of Dimension [place] TBIL is not recommended. Chloride [Moles/Vol] 109 mmol/L 98-107 [facility] Glucose [Mass/Vol] 107 mg/dL 74-106 [facility] Comment on above: Fasting Glucose resu lt from 100 to 125 mg/dL suggests IMPAIRED HOMEOSTASIS per A.D.A. criteria. Potassium [Moles/Vol] 3.6 mmol/L 3.5-5.1 [facility] Protein [Mass/Vol] 7.0 g/dL 6.4-8.2 [facility] Sodium [Moles/Vol] 142 mmol/L 136-145 [facility] Foote's yeast IgE serumOrde red By: Sina Bloom on 03-22-2022 Footes yeast IgE Qn (S) <0.10 kU/L Class 0 [facility] Chocolate RASTOrdered By: Ra sarai Bloom on 03-22-2022 Chocolate IgE Qn (S) <0.10 kU/L Class 0 [facility] Chocolate IgE Qn (S) <0.10 [facility] Erythrocyte sedimentation ra teOrdered By: Sina Bloom on 03-22-2022 ESR (Bld) [Velocity] mm/h 0-30 [facility] Laboratory - Chemistry and C hemistry - challengeOrdered By: Sina Bloom on 03-22-2022 ALP [Catalytic activity/Vol] 72 U/L 45-117 [facility] ALT [Catalytic activity/Vol] 21 U/L 13-56 [facility] CK [Catalytic activity/Vol] 72 U/L 26-192 [facility] CO2 [Moles/Vol] 28.0 mmol/L 21.0-32.0 [facility] Globulin (S) [Mass/Vol] 3.1 g/dL 2.2-4.2 [facility] [place] Urea nitrogen/Creatinine [Mass ratio] 19.1 mg/mg 10-20 [facility] Laboratory - Miscellaneous t estsOrdered By: Sina Bloom on 03-22-2022 Service comment (Unsp spec) [Interp] Comment . [facility] Comment on above: Levels of Specific [...] Allergen IgE Antibody <0.10 kU/L Class 0 [facility] Estimated GFR (MDRD) Amer 61 mL/min >60 [facility] Comment on above: GFR Calc Estimated GFR (MDRD) Non-Af Amer 50 mL/min >60 [facility] Comment on above: Non- GFR Calc [place] Allergen IgE Antibody <0.10 kU/L Class 0 [facility] Seafood [employer] Allergens (RAST) Negative . [facility] Comment on above: Allergens in this mi x are: Blue mussel Fish [place] Shrimp Tuna Shrimp Allergen <0.10 kU/L Class 0 [facility] Serum Ustilago avenae IgE an tibody assay (units/volume)Ordered By: Sina Bloom on 03-22-2022 Oat smut IgE Qn (S) <0.10 kU/L Class 0 [facility] Serum almond IgE antibody as say (units/volume)Ordered By: Sina Bloom on 03-22-2022 Lewis IgE Qn (S) <0.10 kU/L Class 0 [facility] Serum apple IgE antibody ass ay (units/volume)Ordered By: Sina Bloom on 03-22-2022 Apple IgE Qn (S) <0.10 kU/L [facility] 0 [facility] Comment on above: Performed at: [address] [id number] Director: Fuad De Anda MD, Phone: [phone] Serum banana IgE antibody as say (units/volume)Ordered By: Sina Bloom on 03-22-2022 Banana IgE Qn (S) <0.10 kU/L Class 0 [facility] Serum beef IgE antibody assa y (units/volume)Ordered By: Sina Bloom on 03-22-2022 Beef IgE Qn (S) <0.10 kU/L Class 0 [facility] Beef IgE Qn (S) <0.10 [facility] Serum black walnut IgE antib leonidas assay (units/volume)Ordered By: Sina Bloom on 03-22-2022 Black Cotton IgE Qn (S) <0.10 kU/L Class 0 [facility] Serum carrot IgE antibody as say (units/volume)Ordered By: Sina Bloom on 03-22-2022 Carrot IgE Qn (S) <0.10 kU/L Class 0 [facility] Serum casein IgE antibody as say (units/volume)Ordered By: Sina Bloom on 03-22-2022 Casein IgE Qn (S) <0.10 kU/L Class 0 [facility] Serum cashew nut IgE antibod y assay (units/volume)Ordered By: Sina Bloom on 03-22-2022 Cashew nut IgE Qn (S) <0.10 kU/L Class 0 [facility] Serum celery IgE antibody as say (units/volume)Ordered By: Sina Bloom on 03-22-2022 Celery IgE Qn (S) <0.10 kU/L Class 0 [facility] Serum cheese cheddar type Ig E antibody assay (units/volume)Ordered By: Sina Bloom on 03-22-2022 Cheese cheddar type IgE Qn (S) <0.10 kU/L Class 0 [facility] Serum chicken IgE antibody a ssay (units/volume)Ordered By: Sina Bloom on 03-22-2022 Chicken IgE Qn (S) <0.10 kU/L Class 0 [facility] Serum clam IgE antibody assa y (units/volume)Ordered By: Sina Bloom on 03-22-2022 Clam IgE Qn (S) <0.10 kU/L Class 0 [facility] Serum codfish IgE antibody a ssay (units/volume)Ordered By: Sina Bloom on 03-22-2022 Codfish IgE Qn (S) <0.10 kU/L Class 0 [facility] Serum corn IgE antibody assa y (units/volume)Ordered By: Sina Bloom on 03-22-2022 [place] IgE Qn (S) <0.10 kU/L Class 0 [facility] Bowb[place] IgE Qn (S) <0.10 [facility] Serum cow milk IgE antibody assay (units/volume)Ordered By: Sina Bloom on 03-22-2022 Cow milk IgE Qn (S) <0.10 kU/L Class 0 [facility] Cow milk IgE Qn (S) <0.10 [facility] Serum crab IgE antibody assa y (units/volume)Ordered By: Sina Bloom on 03-22-2022 Crab IgE Qn (S) <0.10 kU/L Class 0 [facility] Serum egg white IgE antibody assay (units/volume)Ordered By: Sina Bloom on 03-22-2022 Egg white IgE Qn (S) <0.10 kU/L Class 0 [facility] Serum egg yolk IgE antibody assay (units/volume)Ordered By: Sina Bloom on 03-22-2022 Egg yolk IgE Qn (S) <0.10 kU/L Class 0 [facility] Serum garlic IgE antibody as say (units/volume)Ordered By: Sina Bloom on 03-22-2022 Garlic IgE Qn (S) <0.10 kU/L Class 0 [facility] Serum gluten IgE antibody as say (units/volume)Ordered By: Sina Bloom on 03-22-2022 Gluten IgE Qn (S) <0.10 kU/L Class 0 [facility] Serum lactalbumin alpha IgE antibody assay (units/volume)Ordered By: Sina Bloom on 03-22-2022 Lactalbumin alpha IgE Qn (S) <0.10 kU/L Class 0 [facility] Serum lettuce IgE antibody a ssay (units/volume)Ordered By: Sina Bloom on 03-22-2022 Lettuce IgE Qn (S) <0.10 kU/L Class 0 [facility] Serum lobster IgE antibody a ssay (units/volume)Ordered By: Sina Bloom on 03-22-2022 Lobster IgE Qn (S) <0.10 kU/L Class 0 [facility] Serum onion IgE antibody ass ay (units/volume)Ordered By: Sina Bloom on 03-22-2022 Onion IgE Qn (S) <0.10 kU/L Class 0 [facility] Serum or plasma C reactive p rotein measurement (mass/volume)Ordered By: Sina Bloom on 03-22-2022 CRP [Mass/Vol] mg/L 0.0-3.0 [facility] Comment on above: C-Reactive Protein ( CRP) provides useful information for thediagnosis, therapy and monitoring of inflammatory processesand associated diseases. For the evaluation of Relative Riskfor Cardiovascular Disease, a High Sensitivity CRP (HSCRP)should be ordered. Serum or plasma albumin bacilio urement (mass/volume)Ordered By: Sina Bloom on 03-22-2022 Albumin [Mass/Vol] 3.9 g/dL 3.2-5.0 [facility] Serum or plasma albumin/glob ulin mass ratioOrdered By: Sina Bloom on 03-22-2022 Albumin/Globulin [Mass ratio] 1.3 {ratio} 0.9-2.4 [facility] Serum or plasma calcium bacilio urement (mass/volume)Ordered By: Sina Bloom on 03-22-2022 Calcium [Mass/Vol] 10.5 mg/dL 8.5-10.1 [facility] Serum or plasma creatinine m easurement (mass/volume)Ordered By: Sina Bloom on 03-22-2022 Creatinine [Mass/Vol] 1.10 mg/dL 0.55-1.02 [facility] Comment on above: The validity of the calculated GFR & GFRAA in patients over 70 years has not been determined. Clinical correlation is essential. Serum or plasma urea nitroge n measurement (mass/volume)Ordered By: Sina Bloom on 03-22-2022 Urea nitrogen [Mass/Vol] 21 mg/dL 7-18 [facility] Serum or plasma uric acid me asurement (mass/volume)Ordered By: Sina Bloom on 03-22-2022 Urate [Mass/Vol] 5.8 mg/dL 2.6-6.0 [facility] Comment on above: The drugs N-Acetylcy steine and Metamizole may falsely depress this assay. Serum orange IgE antibody as say (units/volume)Ordered By: Sina Bloom on 03-22-2022 [place] IgE Qn (S) <0.10 kU/L Class 0 [facility] Serum pea IgE antibody assay (units/volume)Ordered By: Sina Bloom on 03-22-2022 Pea IgE Qn (S) <0.10 kU/L Class 0 [facility] Serum peach IgE antibody ass ay (units/volume)Ordered By: Sina Bloom on 03-22-2022 [place] IgE Qn (S) <0.10 kU/L Class 0 [facility] Serum peanut IgE antibody as say (units/volume)Ordered By: Sina Bloom on 03-22-2022 Peanut IgE Qn (S) <0.10 kU/L Class 0 [facility] Comment on above: Levels of Specific I gE Class Description of Class ----- < 0.10 0 Negative 0.10 - 0.31 0/I Equivocal/Low 0.32 - 0.55 I Low 0.56 - 1.40 II Moderate 1.41 - 3.90 III High 3.91 - 19.00 IV Very High 19.01 - 100.00 V Very High >100.00 Very High Peanut IgE Qn (S) <0.10 [facility] Serum pecan or hickory nut I gE antibody assay (units/volume)Ordered By: Sina Bloom on 03-22-2022 Pecan or [place] Nut IgE Qn (S) <0.10 kU/L Class 0 [facility] Serum pork IgE antibody assa y (units/volume)Ordered By: Sina Bloom on 03-22-2022 Pork IgE Qn (S) <0.10 kU/L Class 0 [facility] Pork IgE Qn (S) <0.10 [facility] Serum rice IgE antibody assa y (units/volume)Ordered By: Sina Bloom on 03-22-2022 Rice IgE Qn (S) <0.10 kU/L Class 0 [facility] Serum rye IgE antibody assay (units/volume)Ordered By: Sina Bloom on 03-22-2022 [place] IgE Qn (S) <0.10 kU/L Class 0 [facility] Serum salmon IgE antibody as say (units/volume)Ordered By: Sina Bloom on 03-22-2022 [place] IgE Qn (S) <0.10 kU/L Class 0 [facility] Serum soybean IgE antibody a ssay (units/volume)Ordered By: Sina Bloom on 03-22-2022 Soybean IgE Qn (S) <0.10 kU/L Class 0 [facility] Soybean IgE Qn (S) <0.10 [facility] Serum strawberry IgE antibod y assay (units/volume)Ordered By: Sina Bloom on 03-22-2022 [place] IgE Qn (S) <0.10 kU/L Class 0 [facility] Serum tomato IgE antibody as say (units/volume)Ordered By: Sina Bloom on 03-22-2022 Tomato IgE Qn (S) <0.10 kU/L Class 0 [facility] Serum tuna IgE antibody assa y (units/volume)Ordered By: Sina Bloom on 03-22-2022 Tuna IgE Qn (S) <0.10 kU/L Class 0 [facility] Serum turkey meat IgE antibo dy assay (units/volume)Ordered By: Sina Bloom on 03-22-2022 [place] meat IgE Qn (S) <0.10 kU/L Class 0 [facility] Comment on above: Performed at: [facility] [address] [id number] Director: Fuad De Anda MD, Phone: [phone] Serum wheat IgE antibody ass ay (units/volume)Ordered By: Sina Bloom on 03-22-2022 Wheat IgE Qn (S) <0.10 kU/L Class 0 [facility] Wheat IgE Qn (S) <0.10 [facility] Serum white potato specific IgE antibody assayOrdered By: Sina Bloom on 03-22-2022 Potato IgE Qn (S) <0.10 kU/L Class 0 [facility] Serum whole egg IgE antibody assay (units/volume)Ordered By: Sina Bloom on 03-22-2022 Whole Egg IgE Qn (S) <0.10 kU/L Class 0 [facility] Thin prep Papanicolaou smear with manual screeningOrdered By: Sina Friend on 03-22-2022 Thin prep Papanicolaou smear with manual screening 25 U/L 15-37 [facility] Thin prep Papanicolaou smear with manual screening 5 5-15 [facility] Thin prep Papanicolaou smear with manual screening <0.10 [facility] Absolute lymphocyte counton 11-09-2021 Lymphocytes Auto (Unsp spec) [#/Vol] 3.57 10*3/uL 0.83-4.51 [facility] Work Phone: Basophil percentageon 2021 Basophils/100 WBC (Bld) 0.6 % 0-[address] [facility] Work Phone: Bilirubin [Mass/Vol] 0.90 mg/dL 0.20-1.00 [facility] Work Phone: Comment on above: For patients on eltr ombopag therapy, use of Dimension [place] TBIL is not recommended. Chloride [Moles/Vol] 106 mmol/L 98-107 [facility] Work Phone: [phone] Eosinophils/100 WBC (Bld) 1.6 % 0-5 [facility] Work Phone: Glucose [Mass/Vol] 117 mg/dL 74-106 [facility] Work Phone: Comment on above: Fasting Glucose resu lt from 100 to 125 mg/dL suggests IMPAIRED HOMEOSTASIS per A.D.A. criteria. Neutrophils (Bld) [#/Vol] 5.9 10*3/uL 2.0-7.7 [facility] Work Phone: Neutrophils/100 WBC (Bld) 56.3 % 47-70 [facility] Work Phone: Potassium [Moles/Vol] 4.4 mmol/L 3.5-5.1 [facility] Work Phone: Protein [Mass/Vol] 7.2 g/dL 6.4-8.2 [facility] Work Phone: Sodium [Moles/Vol] 140 mmol/L 136-145 [facility] Work Phone: WBC (Bld) [#/Vol] 10.5 10*3/uL 4.4-11.0 [facility] Work Phone: Blood erythrocytes count (nu mber/volume)on 11-09-2021 RBC (Bld) [#/Vol] 4.80 10*6/uL 4.2-5.4 [facility] Work Phone: Blood hemoglobin measurement (mass/volume)on 11-09-2021 Hemoglobin (Bld) [Mass/Vol] 15.0 g/dL 12.0-15.0 [facility] Work Phone: Blood lymphocytes/100 leukoc yteson 11-09-2021 Lymphocytes/100 WBC (Bld) 33.9 % 19-41 [facility] Work Phone: Blood monocytes/100 leukocyt eson 11-09-2021 Monocytes/100 WBC (Bld) 7.3 % 0-[address] [facility] Work Phone: Blood platelet mean volumeon 11-09-2021 Platelet mean volume (Bld) [Entitic vol] 10.3 fL 6.2-12.0 [facility] Work Phone: Determination of erythrocyte mean corpuscular volume (MCV)on 11-09-2021 MCV (RBC) [Entitic vol] 91.5 fL 81-99 [facility] [facility] Work Phone: [phone] Hematocrit Auto (Bld) [Volum e fraction]on 11-09-2021 Hematocrit (Bld) [Volume fraction] 43.9 % 37-47 [facility] Work Phone: Laboratory - Chemistry and C hemistry - challengeon 11-09-2021 ALP [Catalytic activity/Vol] 71 U/L 45-117 [facility] Work Phone: ALT [Catalytic activity/Vol] 27 U/L 13-56 [facility] Work Phone: CO2 [Moles/Vol] 27.0 mmol/L 21.0-32.0 [facility] Work Phone: Globulin (S) [Mass/Vol] 3.3 g/dL 2.2-4.[address] [facility] Work Phone: Urea nitrogen/Creatinine [Mass ratio] 21.3 mg/mg 10-20 [facility] Work Phone: Laboratory - Hematology and Cell countson 11-09-2021 Erythrocyte distribution width (RBC) [Entitic vol] 40.3 fL 35.1-43.9 [facility] Work Phone: Erythrocyte distribution width (RBC) [Ratio] 12.0 % 11.6-14.6 [facility] Work Phone: Immature granulocytes/100 WBC (Bld) 0.300 % 0.0-0.9 [facility] Work Phone: Comment on above: IG% - Immature Granu locytes (promyelocytes, myelocytes and metamyelocytes) > 1% indicates that a LEFT SHIFT is Present. MCH (RBC) [Entitic mass] 31.3 pg 27.0-32.0 [facility] Work Phone: Nucleated RBC/100 WBC (Bld) [Ratio] 0 % 0-5 [facility] Work Phone: MCHC Auto (RBC) [Mass/Vol]on 11-09-2021 MCHC (RBC) [Mass/Vol] 34.2 g/dL 32-36 [facility] Work Phone: No Panel Informationon 11-09 Estimated GFR (MDRD) Amer 54 mL/min >60 [facility] Work Phone: Comment on above: GFR Calc Estimated GFR (MDRD) Non-Af Amer 45 mL/min >60 [facility] Work Phone: Comment on above: Non- GFR Calc Thyroid Stimulating Hormone (TSH) 0.96 uIU/mL 0.358-3.74 [facility] Work Phone: Vitamin D 25-Hydroxy 26.6 ng/mL [facility] Work Phone: Comment on above: Vitamin D 25(OH) Sta tus Range Deficiency <20 ng/mL (50nmol/L) Insufficiency 20 - 30 ng/mL (50 - 75 nmol/L) Sufficiency 30 - 100 ng/mL (75 - 250 nmol/L) Toxicity >100 ng/mL (>250 nmol/L) Platelets bldon 11-09-2021 Platelets (Bld) [#/Vol] 312 10*3/uL 150-450 [facility] Work Phone: Serum or plasma albumin bacilio urement (mass/volume)on 11-09-2021 Albumin [Mass/Vol] 3.9 g/dL 3.2-5.0 [facility] Work Phone: Serum or plasma albumin/glob ulin mass ratioon 11-09-2021 Albumin/Globulin [Mass ratio] 1.2 {ratio} 0.9-2.4 [facility] Work Phone: Serum or plasma calcium bacilio urement (mass/volume)on 11-09-2021 Calcium [Mass/Vol] 10.4 mg/dL 8.5-10.1 [facility] Work Phone: Serum or plasma creatinine m easurement (mass/volume)on 11-09-2021 Creatinine [Mass/Vol] 1.22 mg/dL 0.55-1.02 [facility] Work Phone: Comment on above: The validity of the calculated GFR & GFRAA in patients over 70 years has not been determined. Clinical correlation is essential. Serum or plasma urea nitroge n measurement (mass/volume)on 11-09-2021 Urea nitrogen [Mass/Vol] 26 mg/dL 7-18 [facility] Work Phone: Serum or plasma uric acid me asurement (mass/volume)on 11-09-2021 Urate [Mass/Vol] 7.7 mg/dL 2.6-6.0 [facility] Work Phone: Comment on above: The drugs N-Acetylcy steine and Metamizole may falsely depress this assay. Thin prep Papanicolaou smear with manual screeningon 11-09-2021 Thin prep Papanicolaou smear with manual screening 25 U/L 15-37 [facility] Work Phone: Thin prep Papanicolaou smear with manual screening 7 5-15 [facility] Work Phone: No Panel Informationon 07-22 Influenza Types A,B Direct FA ([facility]) [facility] Work Phone: Absolute lymphocyte counton 05-11-2021 Lymphocytes Auto (Unsp spec) [#/Vol] 3.47 10*3/uL 0.83-4.51 [facility] Work Phone: Basophil percentageon 2021 Basophils/100 WBC (Bld) 0.6 % 0-[address] [facility] Work Phone: Bilirubin [Mass/Vol] 0.70 mg/dL 0.20-1.00 [facility] Work Phone: Comment on above: For patients on eltr ombopag therapy, use of Dimension [place] TBIL is not recommended. Chloride [Moles/Vol] 108 mmol/L 98-107 [facility] Work Phone: Eosinophils/100 WBC (Bld) 2.3 % 0-5 [facility] Work Phone: Glucose [Mass/Vol] 165 mg/dL 74-106 [facility] Work Phone: Comment on above: Fasting Glucose resu lt greater than or equal to 126 mg/dL suggests DIABETES MELLITUS per A.D.A. criteria. Neutrophils (Bld) [#/Vol] 5.1 10*3/uL 2.0-7.7 [facility] Work Phone: Neutrophils/100 WBC (Bld) 52.9 % 47-70 [facility] Work Phone: Potassium [Moles/Vol] 3.5 mmol/L 3.5-5.1 [facility] Work Phone: Protein [Mass/Vol] 6.9 g/dL 6.4-8.2 [facility] Work Phone: Sodium [Moles/Vol] 141 mmol/L 136-145 [facility] Work Phone: WBC (Bld) [#/Vol] 9.6 10*3/uL 4.4-11.0 [facility] Work Phone: Blood erythrocytes count (nu mber/volume)on 05-11-2021 RBC (Bld) [#/Vol] 4.67 10*6/uL 4.2-5.4 [facility] Work Phone: [phone] Blood hemoglobin measurement (mass/volume)on 05-11-2021 Hemoglobin (Bld) [Mass/Vol] 14.3 g/dL 12.0-15.0 [facility] Work Phone: Blood lymphocytes/100 leukoc yteson 05-11-2021 Lymphocytes/100 WBC (Bld) 36.3 % 19-41 [facility] Work Phone: Blood monocytes/100 leukocyt eson 05-11-2021 Monocytes/100 WBC (Bld) 7.7 % 0-[address] [facility] Work Phone: Blood platelet mean volumeon 05-11-2021 Platelet mean volume (Bld) [Entitic vol] 10.3 fL 6.2-12.0 [facility] Work Phone: [phone] Determination of erythrocyte mean corpuscular volume (MCV)on 05-11-2021 MCV (RBC) [Entitic vol] 90.1 fL 81-[address] [facility] Work Phone: Hematocrit Auto (Bld) [Volum e fraction]on 05-11-2021 Hematocrit (Bld) [Volume fraction] 42.1 % 37-47 [facility] Work Phone: Laboratory - Chemistry and C hemistry - challengeon 05-11-2021 ALP [Catalytic activity/Vol] 71 U/L 45-117 [facility] Work Phone: ALT [Catalytic activity/Vol] 27 U/L 13-56 [facility] Work Phone: CO2 [Moles/Vol] 27.0 mmol/L 21.0-32.0 [facility] Work Phone: Globulin (S) [Mass/Vol] 3.3 g/dL 2.2-4.[address] [facility] Work Phone: Urea nitrogen/Creatinine [Mass ratio] 16.7 mg/mg 10-20 [facility] Work Phone: Laboratory - Hematology and Cell countson 05-11-2021 Erythrocyte distribution width (RBC) [Entitic vol] 39.5 fL 35.1-43.9 [facility] Work Phone: Erythrocyte distribution width (RBC) [Ratio] 12.2 % 11.6-14.6 [facility] Work Phone: Immature granulocytes/100 WBC (Bld) 0.200 % 0.0-0.9 [facility] Work Phone: Comment on above: IG% - Immature Granu locytes (promyelocytes, myelocytes and metamyelocytes) > 1% indicates that a LEFT SHIFT is Present. MCH (RBC) [Entitic mass] 30.6 pg 27.0-32.0 [facility] Work Phone: Nucleated RBC/100 WBC (Bld) [Ratio] 0 % 0-5 [facility] Work Phone: MCHC Auto (RBC) [Mass/Vol]on 05-11-2021 MCHC (RBC) [Mass/Vol] 34.0 g/dL 32-36 [facility] Work Phone: No Panel Informationon 05-11 Estimated GFR (MDRD) Amer 55 mL/min >60 [facility] Work Phone: Comment on above: GFR Calc Estimated GFR (MDRD) Non-Af Amer 46 mL/min >60 [facility] Work Phone: Comment on above: Non- GFR Calc Thyroid Stimulating Hormone (TSH) 0.88 uIU/mL 0.358-3.74 [facility] Work Phone: Vitamin D 25-Hydroxy 29.0 ng/mL [facility] Work Phone: Comment on above: Vitamin D 25(OH) Sta tus Range Deficiency <20 ng/mL (50nmol/L) Insufficiency 20 - 30 ng/mL (50 - 75 nmol/L) Sufficiency 30 - 100 ng/mL (75 - 250 nmol/L) Toxicity >100 ng/mL (>250 nmol/L) Platelets bldon 05-11-2021 Platelets (Bld) [#/Vol] 315 10*3/uL 150-450 [facility] Work Phone: Serum or plasma albumin bacilio urement (mass/volume)on 05-11-2021 Albumin [Mass/Vol] 3.6 g/dL 3.2-5.0 [facility] Work Phone: Serum or plasma albumin/glob ulin mass ratioon 05-11-2021 Albumin/Globulin [Mass ratio] 1.1 {ratio} 0.9-2.4 [facility] Work Phone: Serum or plasma calcium bacilio urement (mass/volume)on 05-11-2021 Calcium [Mass/Vol] 9.7 mg/dL 8.5-10.1 [facility] Work Phone: Serum or plasma creatinine m easurement (mass/volume)on 05-11-2021 Creatinine [Mass/Vol] 1.20 mg/dL 0.55-1.02 [facility] Work Phone: Comment on above: The validity of the calculated GFR & GFRAA in patients over 70 years has not been determined. Clinical correlation is essential. Serum or plasma urea nitroge n measurement (mass/volume)on 05-11-2021 Urea nitrogen [Mass/Vol] 20 mg/dL 7-18 [facility] Work Phone: Serum or plasma uric acid me asurement (mass/volume)on 05-11-2021 Urate [Mass/Vol] 6.1 mg/dL 2.6-6.0 [facility] Work Phone: Comment on above: The drugs N-Acetylcy steine and Metamizole may falsely depress this assay. Thin prep Papanicolaou smear with manual screeningon 05-11-2021 Thin prep Papanicolaou smear with manual screening 20 U/L 15-37 [facility] Work Phone: Thin prep Papanicolaou smear with manual screening 6 5-15 [facility] Work Phone: Giardia lamblia ag stool EIA on 05-06-2021 G. lamblia Ag IA Ql (Stl) Negative Negative [facility] Work Phone: Comment on above: Performed at: [address] [id number] Director: Korey Chilel PhD, Phone: [phone] No Panel Informationon 05-06 Miscellaneous Test See comment [facility] Work Phone: Comment on above: TEST RESULT LIMITSPa ncreatic Elastase,Fecal 150 Low ug/Elast./g >200 Severe Pancreatic Insufficiency: <100 Moderate Pancreatic Insufficiency: 100-200 Normal: >200 TESTING PERFORMED AT [facility]. ORIGINAL REPORT ON FILE IN LAB CONTAINS ADDITIONAL TEST SITE INFORMATION. Stool Calprotectin 30 ug/g [facility] Work Phone: Comment on above: Concentration Interp retation Follow-Up<16 - 50 ug/g Normal None>50 -120 ug/g Borderline Re-evaluate in 4-6 weeks >120 ug/g Abnormal Repeat as clinically indicatedPerformed at: - [facility] [address] [id number] Director: Fuad De Anda MD, Phone: [phone] Atypical perinuclear antineu trophil cytoplasmic antibodies measurementon 05-02-2021 Neutrophil cytoplasmic Ab.perinuclear.atypical IF (S) [Titer] <1:20 titer Neg:<1:20 [facility] Work Phone: Comment on above: The atypical pANCA p attern has been observed in asignificant percentage of patients with ulcerative colitis,primary sclerosing cholangitis and autoimmune hepatitis. Basophil percentageon 2021 Basophil percentage < 0.2 AI [facility] Work Phone: Erythrocyte sedimentation ra henri 05-02-2021 ESR (Bld) [Velocity] 3 mm/h 0-30 [facility] Work Phone: No Panel Informationon 05-02 CA 19-9 Antigen Serial Monitoring See comment [facility] Work Phone: Comment on above: Scanned image report available in EMR [employer] B Antibody <0.2 AI [facility] Work Phone: Endomysial IgA Antibody Negative Negative [facility] Work Phone: Immunoglobulin E 4 IU/mL [facility] Work Phone: EPIC ANALYST Antibody <0.2 AI [facility] Work Phone: Serum DNA double strand anti body assay (units/volume)on 05-02-2021 DNA double strand Ab Qn (S) 6 [IU]/mL [facility] Work Phone: Comment on above: Negative <5 Equivoca l 5 - 9 Positive >9 Serum Danika-1 antibody assay (u nits/volume)on 05-02-2021 Danika-1 extractable nuclear Ab Qn (S) <0.2 [facility] Work Phone: Serum Scl-70 extractable nuc lear antibody assay (units/volume)on 05-02-2021 SCL-70 extractable nuclear Ab Qn (S) 0.2 [facility] Work Phone: Serum Lei extractable nucl ear antibody detectionon 05-02-2021 Lei extractable nuclear Ab Ql (S) <0.2 [facility] Work Phone: Serum classic neutrophil cyt oplasmic antibody assay (units/volume)on 05-02-2021 Neutrophil cytoplasmic Ab.classic Qn (S) <1:20 titer Neg:<1:20 [facility] Work Phone: Serum or plasma C reactive p rotein measurement (mass/volume)on 05-02-2021 CRP [Mass/Vol] mg/L 0.0-3.0 [facility] Work Phone: Comment on above: C-Reactive Protein ( CRP) provides useful information for thediagnosis, therapy and monitoring of inflammatory processesand associated diseases. For the evaluation of Relative Riskfor Cardiovascular Disease, a High Sensitivity CRP (HSCRP)should be ordered. Serum or plasma IgA measurem ent (mass/volume)on 05-02-2021 IgA [Mass/Vol] 109 mg/dL [facility] Work Phone: Serum or plasma IgG measurem ent (mass/volume)on 05-02-2021 IgG [Mass/Vol] 634 mg/dL [facility] Work Phone: Serum or plasma IgM measurem ent (mass/volume)on 05-02-2021 IgM [Mass/Vol] 35 mg/dL [facility] Work Phone: Comment on above: Performed at: [address] [id number] Director: Korey Chilel PhD, Phone: [phone] at: BN - [facility] [address] [id number] Director: Fuad De Anda MD, Phone: [phone] Serum perinuclear neutrophil cytoplasmic antibody titer by immunofluorescenceon 05-02-2021 Neutrophil cytoplasmic Ab.perinuclear IF (S) [Titer] <1:20 titer Neg:<1:20 [facility] Work Phone: Comment on above: The presence of posi tive fluorescence exhibiting P-ANCA orC-ANCA patterns alone is not specific for the diagnosis ofWegener's Granulomatosis (WG) or microscopic polyangiitis.Decisions about treatment should not be based solely onANCA IFA results. The [employer] ANCA [employer] Consensusrecommends follow up testing of positive sera with both AR-3 and MPO-ANCA enzyme immunoassays. As many as 5% serumsamples are positive only by EIA. Ref. AM J Clin [id number];111:507-513. Serum tissue transglutaminas e IgA antibody assay (units/volume)on 05-02-2021 tTG IgA Qn (S) <2 U/mL [facility] Work Phone: Comment on above: Negative 0 - 3 Weak Positive 4 - 10 Positive >10 Tissue Transglutaminase (tTG) has been identified as the endomysial antigen. Studies have demonstr- ated that endomysial IgA antibodies have over 99% specificity for gluten sensitive enteropathy. Microbiology: Culture, Wound on 12-02-2016 [facility] Wound CultureNo grow th aerobically. Invalid Interpretation Code [facility] Work Phone: Microbiology: (P) Culture, W oundon 11-30-2016 [facility] Wound CultureNo growth-Final to follow Invalid Interpretation Code [facility] Work Phone: Office Visit: UC: L arm cell ulitison 11-29-2016 Fall risk assessment No Invalid Interpretation Code [facility] Work Phone: Protein mass conc Done Invalid Interpretation Code [facility] Work Phone: Tobacco smoking status NHIS Never smoker Invalid Interpretation Code [facility] Work Phone: No Panel Information Influenza Types A,B Direct FA ([facility]) [facility] Work Phone: Vital Signs Date Time Vital Sign Value Performing Clinician Debi de la torre 08-31-2024 14:00-0400 Body temperature 97.9 [degF] Dr. Brandon March MD Work Phone: [facility] 08-31-2024 14:00-0400 Diastolic blood pressure 68 mm[Hg] Dr. Brandon March MD Work Phone: [facility] 08-31-2024 14:00-0400 Heart rate 55 /min Dr. Brandon March MD Work Phone: [facility] 08-31-2024 14:00-0400 Respiratory rate 15 /min Dr. Brandon March MD Work Phone: [facility] 08-31-2024 14:00-0400 SaO2% (BldA) [Mass fraction] 95 % Dr. Brandon March MD Work Phone: [facility] 08-31-2024 14:00-0400 Systolic blood pressure 133 mm[Hg] Dr. Brandon March MD Work Phone: [facility] 08-31-2024 06:00-0400 Body mass index (BMI) [Ratio] 31.1 kg/m2 Dr. Brandon March MD Work Phone: [facility] 08-31-2024 06:00-0400 Body weight 75.[address] Brandon March MD Work Phone: [facility] 08-28-2024 22:31-0400 Body height 156.[address] Brandon March MD Work Phone: [facility] 08-28-2024 22:00-0400 Diastolic blood pressure 75 mm[Hg] Dr. Brandon March MD Work Phone: [facility] 08-28-2024 22:00-0400 Heart rate 87 /min Dr. Brandon March MD Work Phone: [facility] 08-28-2024 22:00-0400 Respiratory rate 18 /min Dr. Brandon March MD Work Phone: [facility] 08-28-2024 22:00-0400 SaO2% (BldA) [Mass fraction] 98 % Dr. Brandon March MD Work Phone: [facility] 08-28-2024 22:00-0400 Systolic blood pressure 142 mm[Hg] Dr. Brandon March MD Work Phone: 5(958)241-889349 [address] 08-28-2024 21:17-0400 Body temperature 98.7 [degF] Dr. Brandon March MD Work Phone: 8(420)748-630730 [place] [address] 08-28-2024 18:40-0400 Body height 154.[address] Brandon March MD Work Phone: 8(232)335-970130 [place] [address] 08-28-2024 18:40-0400 Body mass index (BMI) [Ratio] 32.3 kg/m2 Dr. Brandon March MD Work Phone: 2(001)837-071978 [place] [address] 08-28-2024 18:40-0400 Body weight 77.[address] Brandon March MD Work Phone: 4(514)350-219630 [place] [address] 06-03-2024 08:24-0400 Body mass index (BMI) [Ratio] 29.2 kg/m2 Dr. Brandon March MD Work Phone: 7(348)770-396849 [address] 06-03-2024 08:24-0400 Body temperature 97.2 [degF] Dr. Brandon March MD Work Phone: [facility] 06-03-2024 08:24-0400 Body weight 72.[address] Brandon March MD Work Phone: [facility] 06-03-2024 08:24-0400 Diastolic blood pressure 92 mm[Hg] Dr. Brandon March MD Work Phone: [facility] 06-03-2024 08:24-0400 Heart rate 72 /min Dr. Brandon March MD Work Phone: [facility] 06-03-2024 08:24-0400 Respiratory rate 18 /min Dr. Brandon March MD Work Phone: 8(705)431-401478 [place] [address] 06-03-2024 08:24-0400 SaO2% (BldA) [Mass fraction] 97 % Dr. Brandon March MD Work Phone: 6(650)487-460878 [place] [address] 06-03-2024 08:24-0400 Systolic blood pressure 160 mm[Hg] Dr. Brandon March MD Work Phone: 7(719)315-482130 [place] [address] 02-25-2024 10:57-0500 Body height 156.[address] Brandon March MD Work Phone: 6(372)122-796130 [place] [address] 02-25-2024 10:57-0500 Body mass index (BMI) [Ratio] 29.7 kg/m2 Dr. Brandon March MD Work Phone: 5(651)074-271030 [place] [address] 02-25-2024 10:57-0500 Body weight 72.[address] Brandon March MD Work Phone: 5(437)363-076230 [place] [address] 02-25-2024 10:57-0500 Diastolic blood pressure 97 mm[Hg] Dr. Brandon March MD Work Phone: 9(802)022-669330 [place] [address] 02-25-2024 10:57-0500 Heart rate 96 /min Dr. Brandon March MD Work Phone: 0(165)353-635230 [place] [address] 02-25-2024 10:57-0500 Respiratory rate 18 /min Dr. Brandon March MD Work Phone: 9(041)109-280430 [place] [address] 02-25-2024 10:57-0500 SaO2% (BldA) [Mass fraction] 95 % Dr. Brandon March MD Work Phone: 5(704)608-036730 [place] [address] 02-25-2024 10:57-0500 Systolic blood pressure 163 mm[Hg] Dr. Brandon March MD Work Phone: 7(370)222-459178 [place] [address] 01-23-2024 15:00-0500 Body temperature 98.5 [degF] Dr. Brandon March MD Work Phone: 3(246)483-391530 [place] [address] 01-23-2024 15:00-0500 Diastolic blood pressure 80 mm[Hg] Dr. Brandon March MD Work Phone: [facility] 01-23-2024 15:00-0500 Heart rate 71 /min Dr. Brandon March MD Work Phone: 2(624)406-460178 [place] [address] 01-23-2024 15:00-0500 Respiratory rate 18 /min Dr. Brandon March MD Work Phone: 9(462)579-371078 [place] [address] 01-23-2024 15:00-0500 SaO2% (BldA) [Mass fraction] 94 % Dr. Brandon March MD Work Phone: 0(028)833-212978 [place] [address] 01-23-2024 15:00-0500 Systolic blood pressure 144 mm[Hg] Dr. Brandon March MD Work Phone: 1(673)987-662778 [place] [address] 01-23-2024 05:52-0500 Body mass index (BMI) [Ratio] 30.8 kg/m2 Dr. Brandon March MD Work Phone: 0(435)088-763178 [place] [address] 01-23-2024 05:52-0500 Body weight 75.[address] Brandon March MD Work Phone: 4(528)907-384430 [place] [address] 07-20-2022 10:59-0400 Body height 157.[address] Brandon March Work Phone: 1(276)545-051078 [place] [address] 07-20-2022 10:59-0400 Body mass index (BMI) [Ratio] 28.9 kg/m2 Dr. Brandon March Work Phone: 6(044)401-945478 [place] [address] 07-20-2022 10:59-0400 Body weight 71.[address] Brandon March Work Phone: 2(544)358-333578 [place] [address] 07-20-2022 10:59-0400 Diastolic blood pressure 85 mm[Hg] Dr. Brandon March Work Phone: 9(952)666-339978 [place] [address] 07-20-2022 10:59-0400 Heart rate 78 /min Dr. Brandon March Work Phone: 2(114)627-651778 [place] [address] 07-20-2022 10:59-0400 Respiratory rate 16 /min Dr. Brandon March Work Phone: [facility] 07-20-2022 10:59-0400 Systolic blood pressure 162 mm[Hg] Dr. Brandon March Work Phone: [facility] 04-13-2022 11:07-0500 Diastolic blood pressure 94 mm[Hg] Dr. Brandon March Work Phone: [facility] 04-13-2022 11:07-0500 Systolic blood pressure 164 mm[Hg] Dr. Brandon March Work Phone: [facility] 04-13-2022 11:03-0500 Body height 157.[address] Barndon March Work Phone: [facility] 04-13-2022 11:03-0500 Body mass index (BMI) [Ratio] 28.9 kg/m2 Dr. Brandon March Work Phone: [facility] 04-13-2022 11:03-0500 Body weight 71.[address] Brandon March Work Phone: [facility] 04-13-2022 11:03-0500 Heart rate 90 /min Dr. Brandon March Work Phone: [facility] 04-13-2022 11:03-0500 Respiratory rate 16 /min Dr. Brandon March Work Phone: [facility] 04-13-2022 11:03-0500 SaO2% (BldA) [Mass fraction] 95 % Dr. Brandon March Work Phone: [facility] 01-11-2022 14:34-0500 Body height 157.[address] Brandon March Work Phone: [facility] 01-11-2022 14:34-0500 Body mass index (BMI) [Ratio] 30.3 kg/m2 Dr. Brandon March Work Phone: [facility] 01-11-2022 14:34-0500 Body weight 75.[address] Brandon March Work Phone: [facility] 01-11-2022 14:34-0500 Diastolic blood pressure 83 mm[Hg] Dr. Brandon March Work Phone: [facility] 01-11-2022 14:34-0500 Heart rate 77 /min Dr. Brandon March Work Phone: [facility] 01-11-2022 14:34-0500 Respiratory rate 16 /min Dr. Brandon March Work Phone: [facility] 01-11-2022 14:34-0500 Systolic blood pressure 131 mm[Hg] Dr. Brandon March Work Phone: [facility] 08-10-2021 14:02-0400 Body height 157.[address] Brandon March Work Phone: [facility] Work Phone: 08-10-2021 14:02-0400 Body mass index (BMI) [Ratio] 24.1 kg/m2 Dr. Brandon March Work Phone: [facility] Work Phone: 08-10-2021 14:02-0400 Body weight 59.[address] Brandon March Work Phone: [facility] Work Phone: 08-10-2021 14:02-0400 Diastolic blood pressure 79 mm[Hg] Dr. Brandon March Work Phone: [facility] Work Phone: 08-10-2021 14:02-0400 Heart rate 75 /min Dr. Brandon March Work Phone: [facility] Work Phone: 08-10-2021 14:02-0400 SaO2% (BldA) [Mass fraction] 92 % Dr. Brandon March Work Phone: [facility] Work Phone: 08-10-2021 14:02-0400 Systolic blood pressure 143 mm[Hg] Dr. Brandon March Work Phone: [facility] Work Phone: 07-26-2021 13:27-0400 Body temperature 98.1 [degF] Dr. Brandon March Work Phone: [facility] Work Phone: 07-26-2021 13:27-0400 Diastolic blood pressure 72 mm[Hg] Dr. Brandon March Work Phone: [facility] Work Phone: 07-26-2021 13:27-0400 Heart rate 59 /min Dr. Brandon March Work Phone: [facility] Work Phone: 07-26-2021 13:27-0400 Respiratory rate 16 /min Dr. Brandon March Work Phone: [facility] Work Phone: 07-26-2021 13:27-0400 SaO2% (BldA) [Mass fraction] 96 % Dr. Brandon March Work Phone: [facility] Work Phone: 07-26-2021 13:27-0400 Systolic blood pressure 164 mm[Hg] Dr. Brandon March Work Phone: [facility] Work Phone: 07-26-2021 11:52-0400 Body height 157.[address] Brandon March Work Phone: [facility] Work Phone: 07-26-2021 11:52-0400 Body mass index (BMI) [Ratio] 29.6 kg/m2 Dr. Brandon March Work Phone: [facility] Work Phone: 07-26-2021 11:52-0400 Body weight 73.[address] Brandon March Work Phone: [facility] Work Phone: 11-29-2016 14:27-0400 BMI (Body Mass Index) 27.47 kg/m2 [facility] Work Phone: 11-29-2016 14:27-0400 Body Temperature 98.2 [degF] [facility] Work Phone: 11-29-2016 14:27-0400 BP Diastolic 94 mm[Hg] [facility] Work Phone: 11-29-2016 14:27-0400 BP Systolic 142 mm[Hg] [facility] Work Phone: 11-29-2016 14:27-0400 Height 157.48 cm [facility] Work Phone: 11-29-2016 14:27-0400 Pulse (Heart Rate) 71 /min [facility] Work Phone: 11-29-2016 14:27-0400 Respiratory Rate 15 /min [facility] Work Phone: 11-29-2016 14:27-0400 Weight 68.13 kg [facility] Work Phone: 07-27-2011 11:110400 BSA (Body Surface Area) 1.64 m2 [facility] Work Phone: Encounters Encounter Date Encounter Type Care Provider Facility Start: 09-26-2024 End: 09-26-[address] Brandon March MD Work Phone: -Laboratory Start: 09-26-2024 End: 09-26-[address] Brandon March MD -Laboratory Work Phone: Start: 09-26-2024 End: 09-26-2024 ambulatory Marixa Bauer Facility:[facility] Start: 08-30-2024 Non-patient / Non-visit Dr. Kal Gomez MD -[facility] Work Phone: Start: 08-29-2024 Non-patient / Non-visit Dr. Kal Gomez MD -[facility] Work Phone: Start: 08-28-2024 End: 08-31-2024 ambulatory Kal Gomez Facility:[facility] Start: 08-28-2024 End: 08-31-2024 Evaluation and management of inpatient Dr. Kal Wright DO -Medical Surgical 3 Work Phone: Start: 08-28-2024 End: 08-31-[address] Brandon March MD Work Phone: -Medical Surgical 3 Start: 08-27-2024 End: 08-27-[address] Brandon March MD Work Phone: -Radiology [facility] Start: 08-27-2024 End: 08-27-[address] Brandon March MD -Radiology [facility] Work Phone: Start: 08-27-2024 End: 08-27-2024 [facility] Start: 06-09-2024 End: 06-09-[address] Brandon March MD -Laboratory Work Phone: Start: 06-09-2024 End: 06-09-2024 ambulatory [facility] Facility:[facility] Start: 06-03-2024 End: 06-03-[address] Luan Paul MD -Laboratory Specimen Work Phone: Start: 06-03-2024 End: 06-03-[address] Luan Paul MD -[facility] Work Phone: Start: 06-03-2024 End: 06-03-2024 ambulatory Brandon March Facility:[facility] Start: 06-03-2024 End: 06-03-2024 ambulatory Luan Paul Facility:[facility] Start: 04-23-2024 End: 04-23-[address] Brandon March MD Work Phone: [facility] Work Phone: Start: 04-23-2024 End: 04-23-[address] Brandon March MD -Nuclear Medicine, [facility] Work Phone: Start: 04-23-2024 End: 04-23-2024 ambulatory Brandon Chi [place] Facility:[facility] Start: 03-27-2024 End: 03-27-[address] Brandon March MD -Ultrasound, [facility] Work Phone: Start: 03-27-2024 End: 03-27-2024 ambulatory Brandon Chi [place] Facility:[facility] Start: 03-14-2024 End: 03-14-2024 ambulatory Cal Waleska Billings Facility:[facility] Start: 03-14-2024 End: 03-14-[address] Brandon March MD -Physical Therapy Work Phone: Start: 03-12-2024 End: 03-12-[address] Brandon March MD -Cat Scan, [facility] Work Phone: Start: 03-12-2024 End: 03-12-2024 ambulatory [facility] Facility:[facility] Start: 02-27-2024 End: 02-27-[address] Denny Hargrove MD -Laboratory Work Phone: Start: 02-27-2024 End: 02-27-2024 ambulatory Brandon [facility] Facility:[facility] Start: 02-25-2024 End: 02-25-[address] Luan Guzman MD -[facility] Work Phone: Start: 02-25-2024 End: 02-25-2024 ambulatory Luan Guzman Facility:[facility] Start: 01-23-2024 Non-patient / Non-visit Dr. Cal Billings MD -[facility] Work Phone: Start: 01-22-2024 Non-patient / Non-visit Dr. Cal Billings MD -[facility] Work Phone: Start: 01-21-2024 Non-patient / Non-visit Dr. Cal Billings MD -[facility] Work Phone: Start: 01-20-2024 Non-patient / Non-visit Dr. Macario Allen DO [facility] Work Phone: Start: 01-20-2024 Non-patient / Non-visit Dr. Luan Guzman MD -[facility] Start: 01-19-2024 Non-patient / Non-visit Dr. Macario Allen [facility] Work Phone: Start: 01-19-2024 Non-patient / Non-visit Dr. Luan Guzman MD -[facility] Start: 01-19-2024 ambulatory Brandon March Facility:[facility] Start: 01-19-2024 Non-patient / Non-visit Dr. Se Ellis MD -[facility] Start: 01-18-2024 ambulatory Kal Sherman ty:[facility] Start: 01-18-2024 End: 01-23-2024 Evaluation and management of inpatient Dr. Cal Billings MD -Progressive Care Unit Work Phone: Start: 12-20-2023 End: 12-20-2023 ambulatory [facility] Facility:[facility] Start: 05-30-2023 End: 05-30-2023 ambulatory [facility] Work Phone: Start: 05-30-2023 End: 05-30-2023 Patient encounter procedure [facility]-Laboratory, Phy Office 3rd Flr Start: 05-17-2023 End: 05-17-2023 ambulatory [facility] Work Phone: Start: 05-17-2023 End: 05-17-2023 Patient encounter procedure [facility]-Outpatient Bone Densitometry Work Phone: Start: 05-16-2023 End: 05-16-2023 ambulatory [facility] Work Phone: Start: 05-16-2023 End: 05-16-2023 Patient encounter procedure [facility]-Laboratory, Phy Office 3rd Flr Start: 03-14-2023 End: 03-14-[address] Brandon March Work Phone: [facility] Work Phone: Start: 03-14-2023 End: 03-14-[address] [facility] Start: 12-27-2022 Non-patient / Non-visit Dr. Brandon March Work Phone: [facility] Start: 12-27-2022 End: 12-27-[address] Brandon March [facility] Work Phone: Start: 11-07-2022 End: 11-07-[address] Brandon March Work Phone: [facility] Work Phone: Start: 11-07-2022 End: 11-07-[address] Brandon March [facility] Start: 10-11-2022 End: 10-11-[address] Brandon March [facility] Start: 07-20-2022 End: 07-20-[address] Brandon March Work Phone: [facility] Start: 07-14-2022 End: 07-14-[address] Brandon March Work Phone: [facility] Work Phone: Start: 07-14-2022 End: 07-14-[address] Brandon March Work Phone: [facility]-Pulmonary Services/Neurology Start: 06-21-2022 End: 06-21-[address] Brandon March Work Phone: [facility] Work Phone: Start: 06-21-2022 End: 06-21-[address] Brandon March [facility] Start: 05-17-2022 End: 05-17-[address] Brandon March Work Phone: [facility] Work Phone: Start: 05-17-2022 End: 05-17-[address] Brandon March [facility] Start: 04-21-[address] Brandon donald Work Phone: [facility]-Cardiovascular Services Start: 04-21-2022 Non-patient / Non-visit Dr. Brandon March Work Phone: [facility] Start: 04-18-2022 End: 04-18-[address] Brandon March Work Phone: [facility]-Outpatient Breast Imaging Start: 04-13-2022 End: 04-13-[address] Brandon March Work Phone: [facility] Start: 03-22-2022 End: 03-22-[address] Brandon March Work Phone: [facility] Work Phone: Start: 03-22-2022 End: 03-22-[address] Brandon March Work Phone: [facility]-Laboratory Start: 03-22-2022 End: 03-22-[address] Brandon March Work Phone: [facility] Start: 01-23-2022 End: 01-23-[address] Brandon March Work Phone: [facility]-Pulmonary Services/Neurology Start: 01-19-2022 Non-patient / Non-visit Dr. Brandon March Work Phone: [facility] Start: 01-19-2022 End: 01-19-[address] Brandon March [facility] Start: 01-11-2022 End: 01-11-[address] Brandon March Work Phone: [facility] Start: 01-09-2022 Non-patient / Non-visit Dr. Brandon March Work Phone: [facility] Start: 12-30-2021 End: 12-30-[address] Brandon Macrh Work Phone: [facility] Start: 12-26-2021 Non-patient / Non-visit Dr. Brandon March Work Phone: [facility] Start: 11-09-2021 End: 11-09-[address] Brandon March Work Phone: [facility] Work Phone: Start: 11-09-2021 End: 11-09-[address] Brandon March Work Phone: [facility]-Laboratory, Phy Office 3rd Mtr Start: 08-10-2021 End: 08-10-[address] Brandon March Work Phone: [facility] Start: 07-26-2021 Non-patient / Non-visit Dr. Brandon March Work Phone: [facility] Start: 07-26-2021 End: 07-26-2021 Admission to same day surgery center Dr. Brandon March Work Phone: [facility]-Endoscopy Start: 07-22-2021 End: 07-22-[address] Brandon March Work Phone: [facility]-Pulmonary Services/Neurology Start: 05-11-2021 End: 05-11-[address] Brandon March Work Phone: [facility]-Laboratory, Phy Office 3rd Flr Start: 05-06-2021 End: 05-06-[address] Brandon March [facility] Start: 05-02-2021 End: 05-02-[address] Brandon March Work Phone: [facility]-Laboratory Start: 04-11-2021 End: 04-11-[address] Brandon March Work Phone: [facility]-Radiology, [facility] Procedures Date Procedure Procedure Detail Performing Clinician Start: 08-31-[address] Brandon March MD Work Phone: Start: 08-30-2024 Serum inorganic phos phate measurement Dr. Brandon March MD Work Phone: Start: 08-29-2024 MRI of lumbar spine Dr. Brandon March MD Work Phone: Start: 08-29-[address] Brandon March MD Work Phone: Start: 08-29-2024 Urnls dip stick/tabl et reagent auto microscopy Dr. Brandon March MD Work Phone: Start: 08-28-2024 CT of lumbar spine Dr. Brandon March MD Work Phone: Start: 08-27-2024 X-ray of lumbosacral spine Dr. Brandon March MD Work Phone: Start: 08-27-2024 X-ray of sacrum and coccyx, two or more views Dr. Brandon March MD Work Phone: Start: 06-09-2024 Vitamin D, 25-hydrox y measurement Dr. Brandon March MD Work Phone: Comment on above: Vitamin D StatusDefi ciency: <20 ng/mL (50nmol/L)Insufficiency: 20-30 ng/mL (50-75 nmol/L)Sufficiency: 30-100 ng/mL (75-250 nmol/L)Toxicity: >100 ng/mL (>250 nmol/L) Start: 04-23-[address] Brandon [...] Dr. Brandon March Work Phone: Investigation of tra nsfusion reaction Dr. Brandon March Work Phone: Microbial culture, routine D lg March Work Phone: Respiratory syncytia l virus antigen assay Dr. Brandon March Work Phone: Viral antigen assay Dr. Brandon March Work Phone: Plan of Treatment Date Care Activity Detail Author Start: 08-31-2024 Patient discharge [facility] Start: 08-30-2024 Patient discharge [facility] Start: 08-30-2024 Inhalation therapy procedure [facility] Start: 08-29-2024 Care planning and problem solving actions [facility] Start: 08-28-2024 End: 08-29-2024 [facility] Start: 08-28-2024 Application of intermittent pneumatic compression device [facility] Start: 08-28-2024 Assessment of risk of venous thromboembolism [facility] Start: 08-28-2024 Consultation [facility] Start: 08-28-2024 Documentation procedure [facility] Start: 08-28-2024 Incentive spirometry [facility] Start: 08-28-2024 Insertion of catheter into peripheral vein [facility] Start: 08-28-2024 Measuring intake and output [facility] Start: 08-28-2024 Oxygen therapy [facility] Start: 08-28-2024 Providing care according to standard [facility] Start: 08-28-2024 Provision of activity privileges [facility] Start: 08-28-2024 Referral to occupational therapist [facility] Start: 08-28-2024 Referral to service [facility] Start: 08-28-2024 Following clinical pathway protocol [facility] Start: 08-28-2024 MRI of lumbar spine with contrast Spine Lumbar WITH Contrast [facility] Start: 08-28-2024 Urinalysis complete panel - Urine [facility] Start: 08-28-2024 Verification routine [facility] Start: 08-28-2024 Admission procedure [facility] Start: 08-28-2024 Hospital admission, emergency, from emergency room, medical nature [facility] Start: 01-23-2024 Patient discharge [facility] Start: 01-21-2024 Application of intermittent pneumatic compression device [facility] Start: 01-21-2024 Referral to occupational therapist [facility] Start: 01-21-2024 Referral to service [facility] Start: 01-20-2024 Inhalation therapy procedure [facility] Start: 01-18-2024 Following clinical pathway protocol [facility] Start: 01-18-2024 Referral to electricians [facility] Start: 01-18-2024 Admission procedure [facility] Start: 03-14-2023 Procedure [facility] Start: 03-22-2022 Egg whole IgE ab ratio ser [facility] Start: 07-26-2021 Colonoscopy w/biopsy single/multiple COLONOSCOPY AND BIOPSY [facility] Work Phone: Start: 07-26-2021 Colsc flx w/rmvl of tumor polyp lesion snare tq COLONOSCOPY W/LESION REMOVAL [facility] Work Phone: Start: 07-26-2021 Egd transoral biopsy single/multiple EGD BIOPSY SINGLE/MULTIPLE [facility] Work Phone: Start: 11-29-2016 End: 11-29-2016 Bacteria identified Cx Nom (Wound) *Culture and Sensitivity, wound [facility] Work Phone: Anion gap in Serum o r Plasma [facility] Banana IgE Ab [Units/volume] in Serum [facility] Beef IgE Ab [Units/v olume] in Serum [facility] BUN/Creatinine ratio [facility] Calcium [Mass/volume ] in Serum or Plasma [facility] Carbon dioxide, tota l [Moles/volume] in Central venous blood [facility] Celery IgE Ab [Units/volume] in Serum [facility] Cheese cheddar type IgE Ab [Units/volume] in Serum [facility] Chocolate IgE Ab [Units/volume] in Serum [facility] Bowbells IgE Ab [Units/v olume] in Serum [facility] Cow milk IgE Ab [Units/volume] in Serum [facility] Creatinine [Mass/vol ume] in Serum or Plasma [facility] Fish [facility] Glucose [Mass/volume ] in Serum or Plasma [facility] Lactalbumin alpha Ig E Ab [Units/volume] in Serum [facility] Lettuce IgE Ab [Units/volume] in Serum [facility] Magnesium measurement [facility] Measurement of renal function [facility] Patient Education [facility] Work Phone: Patient referral [facility] Work Phone: Ellis IgE Ab [Units/ volume] in Serum [facility] Peanut IgE Ab [Units/volume] in Serum [facility] Pork IgE Ab [Units/v olume] in Serum [facility] Potassium measurement [facility] Serum chloride measurement [facility] Sodium measurement [facility] Soybean IgE Ab [Units/volume] in Serum [facility] [place] meat IgE Ab [Units/volume] in Serum [facility] Urea nitrogen [Mass/ volume] in Serum or Plasma [facility] Wheat IgE Ab [Units/ volume] in Serum [facility] Immunizations Immunization Date Immunization Notes Care Provider Fa [facility] 01-02-2024 Covid (Spikevax) Dr. Brandon mcgee MD Work Phone: [facility] 12-20-2023 influenza, injectabl e, quadrivalent, preservative free Dr. Brandon March MD Work Phone: [facility] 07-02-2023 Covid (Spikevax) Dr. Brandon mcgee MD Work Phone: [facility] 10-27-2022 RSV Adult BiValent (Abrysvo) Dr. Brandon March MD Work Phone: [facility] 05-11-2021 Covid (Moderna) Dr. Brandon March MD Work Phone: [facility] 11-10-2020 Covid (Moderna) Dr. Brandon March MD Work Phone: [facility] 11-10-2020 influenza, injectabl e, quadrivalent, preservative free Dr. Brandon March MD Work Phone: [facility] 04-01-2020 Covid (Moderna) Dr. Brandon March MD Work Phone: [facility] 03-04-2020 Covid (Moderna) Dr. Brandon March MD Work Phone: [facility] 09-30-2019 influenza, injectabl e, quadrivalent, preservative free Dr. Brandon March MD Work Phone: [facility] 11-27-2018 influenza, injectabl e, quadrivalent, preservative free Dr. Brandon March MD Work Phone: [facility] 10-29-2017 influenza, injectabl e, quadrivalent, preservative free Dr. Brandon March MD Work Phone: [facility] 09-25-[address] Brandon March MD Work Phone: [facility] 05-23-[address] Brandon March MD Work Phone: [facility] 12-05-2016 influenza, high dose seasonal, preservative-free Dr. Brandon March MD Work Phone: [facility] 11-13-[address] Brandon March Work Phone: [facility] 11-02-2015 influenza, injectabl e, quadrivalent, preservative free Dr. Brandon March MD Work Phone: [facility] Payers Date Payer Category Payer Self-pay [id number] 2023 Self-pay [id number] 2005 Private Health Insurance [id number] 2004 Medicare [id number] Unknown [id number] 2.16.8 [id number] Unknown [id number] 2.16.8 40.1.526945.3.579.2.462 Unknown [id number] 2.16.8 40.1.297910.3.579.2.462 Unknown [id number] 2.16.8 40.1.134194.3.579.2.462 Unknown [id number] 2.16.8 40.1.167908.3.579.2.462 Unknown [id number] 2.16.8 40.1.418635.3.579.2.462 Unknown [id number] 2.16.8 40.1.229473.3.579.2.462 Unknown [id number] 2.16.8 40.1.233240.3.579.2.462 Unknown [id number] 2.16.8 40.1.494549.3.579.2.462 Unknown [id number] 2.16.8 40.1.211525.3.579.2.462 Unknown [id number] 2.16.8 40.1.203634.3.579.2.462 Unknown [id number] 2.16.8 40.1.624767.3.579.2.462 Unknown [id number] 2.16.8 40.1.832833.3.579.2.462 Unknown [id number] 2.16.8 40.1.066373.3.579.2.462 Unknown [id number] 2.16.8 40.1.218523.3.579.2.462 Unknown [id number] 2.16.8 40.1.698789.3.579.2.462 Unknown [id number] 2.16.8 40.1.196203.3.579.2.462 Unknown [id number] 2.16.8 40.1.067907.3.579.2.462 Unknown [id number] 2.16.8 40.1.954179.3.579.2.462 Unknown [id number] 2.16.8 40.1.175620.3.579.2.462 Unknown [id number] 2.16.8 40.1.022820.3.579.2.462 Unknown [id number] 2.16.8 40.1.034392.3.579.2.462 Unknown [id number] 2.16.8 40.1.806620.3.579.2.462 Unknown [id number] 2.16.8 40.1.482372.3.579.2.462 Unknown [id number] 2.16.8 40.1.867164.3.579.2.462 Unknown [id number] 2.16.8 40.1.993116.3.579.2.462 Social History Date Type Detail Facility Start: 05-02-2021 End: 07-20-2022 Tobacco smoking status NHIS Unknown if ever smoked [facility] Start: 11-12-2017 None [facility] Start: 11-12-2017 Spouse/ Signif icant Other [facility] Start: 12-01-2017 Non-smoker [facility] Start: 1940 Sex Assigned At Female [facility] Start: 01-18-2024 End: 08-28-2024 Tobacco smoking status NHIS Never smoked tobacco (finding) [facility] Start: 05-01-2024 Sex Female (finding) [facility] Medical Equipment Procedure Code Equipment Code [...] /State Functional Status Date Assessment Result Facility 08-31-2024 Functional status Ambulates;Bathroom Priv ilege [facility] Work Phone: 08-30-2024 Functional status Rolling Walker [facility] Work Phone: 01-23-2024 Functional status Bedrest [facility] Work Phone: Mental Status Date Assessment Result Facility 08-31-2024 Cognitive function Appropriate;Cooperativ e [facility] Work Phone: 01-23-2024 Cognitive function [facility]: 07-26-2021 Cognitive function Voice/Name [facility] Work Phone: Clinical Notes 01-19-2024 to 08-31-2024 Note Date & Type Note Facility 08-31-2024 Discharge summary Note Date/Time August 31, 2024 8:25am [facility] Medical Records Department [address] [place] [address] Discharge Summary 08/30/24 0835 MR#: [id number] Acct: [id number] Name: JANIA SPRAGUE Rep #:[id number] 2 : 1940 84 From: Kal Gomez MD PCP: Dr. Brandon March MD Status:ADM I NO Location: [place] [address]1 Providers Date of Admission: 08/28/24 Date of Discharge: 08/30/24 Primary Care Physician: Dr. Brandon March MD Consultations 08/28/24 22:36 Consult: Orthopedics Routine Consulting Provider: Dickson Viveros Reason for Consult: L2 comp fx after fall with retropulsion. EMERGENT Consult: No MD Notified: Yes Date Notified: 08/29/24 Time Notified: 10:00 Method of Notification: Text Reason For Visit: ACUTE L2 COMP. FX W/ RETROPULSION AND Diagnosis Discharge Diagnosis (1) Compression fracture of L2: Status: Acute Code(s): S32.020A - Wedge compression fracture of second lumbar vertebra, initial encounter for closed fracture Qualifiers: Encounter type: initial encounter Qualified Code(s): S32.020A - Wedge compression fracture of second lumbar vertebra, initial encounter for closed fracture (2) Fall: Status: Acute Code(s): W19.XXXA - Unspecified fall, initial encounter Qualifiers: Encounter type: initial encounter Qualified Code(s): W19.XXXA - Unspecified fall, initial encounter (3) Intractable back pain: Status: Acute Code(s): M54.9 - Dorsalgia, unspecified Plan Patient is an 84-year-old lady admitted with fall days prior to admission who presented to the emergency department with difficulty with ambulation as well asback pain. Admitted to regular nursing floor for further management 1. Fall with intractable back pain ? CT of the lumbar spine obtained on admission did show Compression Fracture of the L2 vertebral body involving the superior end-plate and resulting in ~30% height loss and ~4 mm of fracture fragment retropulsion, new since 03/12/2024 with MRI recommended to confirm acuity. Admitted to regular nursing floor for pain control. Also started on steroids consult placed to spine surgery. MRI was ordered for subsequent eval 08/30/2024; MRI obtained the day prior did not show acute-subacute compression fracture involving superior endplate of L2. No retropulsion. multilevel spondylotic changes as described with no high-grade spinal canal narrowing. Grade 2 degenerative anterolisthesis of L5 on S1. Neural foraminal narrowing isat most moderate on the left at L4-5, and moderate-advanced bilaterally at L5-S1. ? Patient was discharged home with pain medication as well as antispasmodics andfollow-up set up with pain management as outpatient 2. Physical deconditioning/debility secondary to above ? Requested for PT OT eval and social service coordinator to assist with discharge planning 3.Hypertension ? Blood pressure controlled, home medications continued with dose adjustment as needed 4. Depression with anxiety ? Patient is on paroxetine 5. GERD ? Patient is on PPI 6.Class I obesity with BMI of 31 ? Complicating care weight loss advised 7. Hyponatremia ? Secondary to patient being on HCTZ we will continue with monitoring and is continued patient sodium levels continue to follow 8. Leukocytosis ? Etiology not clear we will continue monitor trend 9. Abnormal LFTs ? Ordered gallbladder ultrasound Prominent common bile duct which can be seen status post cholecystectomy. Similar appearance on CT study of 01/18/2024 10. DVT prophylaxis Only SCDs only for now pending evaluation by spine surgeon Time spent in the patient's overall evaluation,decision-making process, review of diagnostic data, adjustment of management, discussion with other providers, nursing nursing and ancillary staff involved in patient's care documentation, 35 Minutes Medications at Discharge Home Medications loratadine 10 mg tablet 10 mg PO DAILY PRN ALLERGIES 11/30/17 losartan 100 mg tablet 100 mg PO DAILY heart #30 tabs 11/30/17 paroxetine HCl 20 mg tablet 20 mg PO DAILY mood #30 tabs 11/30/17 albuterol sulfate 90 mcg/actuation aerosol inhaler 1 puff inhalation Q6H PRN SOB07/25/21 cholecalciferol (vitamin D3) 25 mcg (1,000 unit) [...] mg/1.5 mL subcutaneous syringe 284 mg subcut [id number]/23/24 linaclotide 72 mcg capsule (Linzess) 72 mcg PO DAILY PRN constipation 07/05/23 carvedilol 6.25 mg tablet (Coreg) 6.25 mg PO BID #60 tabs 02/25/24 acetaminophen 500 mg tablet (Acetaminophen Extra Strength) 500 mg PO Q6H PRN fever or pain 08/28/24 latanoprost 0.005 % eye drops 1 drp ophthalmic (eye) QHS 08/28/24 meclizine 25 mg tablet 25 mg PO TID PRN PRN dizziness 08/28/24 naproxen 250 mg tablet 250 mg PO BID 08/28/24 prednisone 10 mg tablet 10 mg PO steroid 08/28/24 lidocaine 5 % topical patch 1 patch topical 2200 #30 ea 08/30/24 oxycodone 5 mg tablet 5 mg PO Q4H PRN PRN Pain Score 4-10 5 days #14 tabs 08/30/24 prednisone 20 mg tablet 20 mg PO BID #14 tabs 08/30/24 Physical Exam Narrative GENERAL: cooperative HEENT: Atraumatic; normocephalic EYES; Anicteric, Normal Conjunctiva NECK; supple, normal thyroid, RESPIRATORY: Diminished to auscultation CARDIOVASCULAR: Regular S1 S2, GI: soft, normoactive bowel sounds, : No Renal angle tenderness; EXTREMITIES: No edema, no clubbing, MUSCULOSKELETAL: no muscle wasting NEURO: Awake; no lateralizing signs. SKIN: No Rash PSYCH; Flat affect Weight / BMI Weight Weight: 80.739 kg Body Mass Index (BMI) 33.1 ABG / Lab / Microbiology Data 08/30/24 06:00 08/30/24 06:00 Laboratory: Laboratory Results - last 24 hr 08/30/24 06:00: WBC 14.1 H, RBC 4.34, Hgb 13.2, Hct 38.7, MCV 89.2, MCH 30.4, MCHC 34.1, RDW Std Deviation 39.4, RDW Coeff of Patrizia 12.2, Plt Count 284, MPV 10.3, Immature Gran % (Auto) 1.100 H, Neut % (Auto) 83.6 H, Lymph % (Auto) 9.8 L, Jones % (Auto) 5.4, Eos % (Auto) 0.0, Baso % (Auto) 0.1, Absolute Neuts (auto) 11.8 H, Absolute Lymphs (auto) 1.38, Nucleated RBC % 0, Sodium 130 L, Potassium 4.6, Chloride 101, Carbon Dioxide 18.0 L, Anion Gap 11, BUN 33 H, Creatinine 1.38 H, Estim Creat Clear Calc 28.69 L, Est GFR (MDRD) Non-Af 38 L, BUN/Creatinine Ratio 23.8 H, Glucose 168 H, Calcium 9.5, Phosphorus 3.2, Magnesium 2.3 H Radiography Diagnostic Testing: Radiology Impression Abdomen Ultrasound 08/29/24 09:52 IMPRESSION: Prominent common bile duct which can be seen status post cholecystectomy. Similar appearance on CT study of 01/18/2024 Reading Location: [facility] Lumbar Spine MRI 08/29/24 22:11 IMPRESSION: Acute-subacute compression fracture involving superior endplate of L2. No retropulsion. Multilevel spondylotic changes as described with no high-grade spinal canal narrowing. Grade 2 degenerative anterolisthesis of L5 on S1. Neural foraminal narrowing isat most moderate on the left at L4-5, and moderate-advanced bilaterally at L5-S1. Reading Location: [id number] D/C Instructions Discharge Activity: Return to Normal Activity Call your doctor if you observe: Fever of 101 or Higher, Shortness of breath, Fainting spells and Chest pain DC O2, CPAP, BIPAP Needs Home O2 Discharge instructions: No Meaningful Use Info Meaningful Use Meaningful Use Diagnoses (Choose all that apply): None applicable Discharge Plan Admission Admit Date/Time: 08/28/24 22:03 Attending Provider: Kal Gomez Primary Care Provider: Brandon March Chi Consulting Providers: Kal Wright; Dickson Viveros Discharge Orders/Prescriptions Prescriptions: New lidocaine 5 % Adhesive Patch,Medicated 1 patch topical 2199 Qty: 30 0RF Protocol: *Topical Application Instructions APPLICATION INSTRUCTIONS: affected area oxycodone 5 mg Tablet 5 mg PO Q4H PRN PRN (Reason: Pain Score 4-10) 5 Days Qty: 14 0RF prednisone 20 mg tablet 20 mg PO BID Qty: 14 0RF Continued dexlansoprazole [Dexilant] 60 mg capsule,biphase delayed releas 60 mg PO BID Qty: 120 4RF clonidine 0.3 mg/24 hr patch weekly 1 patch transdermal QWEEK Patient Comments: Patient changes patch on Sundays. Linzess 72 mcg capsule 72 mcg PO DAILY PRN (Reason: constipation) inclisiran 284 mg/1.5 mL syringe 284 mg subcut [id number] Rx Instructions: due in september carvedilol [Coreg] 6.25 mg tablet 6.25 mg PO BID Qty: 60 11RF Rx Instructions: must administer with a meal/food multivitamin Tablet 1 tab PO DAILY paroxetine HCl 20 MG tablet 20 mg [...] PO DAILY PRN (Reason: high blood pressure) latanoprost 0.005 % drops 1 drp ophthalmic (eye) QHS meclizine 25 mg tablet 25 mg PO TID PRN PRN (Reason: dizziness) prednisone 10 mg tablet 10 mg PO Patient Comments: TAKE 3 TABLETS BY MOUTHIONCE DAILY FOR 2 DAYS THEN 2 FOR 2 DAYS THEN 1 FOR 2 DAYS THEN STOP naproxen 250 mg tablet 250 mg PO BID acetaminophen [Acetaminophen Extra Strength] 500 mg tablet 500 mg PO Q6H PRN (Reason: fever or pain) Discontinued baclofen 10 mg tablet 10 mg PO QHS Referrals / Follow Up: Cal Nino MD [Med Staff - Active Staff] - Within 1 Week Brandon March Chi, MD [Primary Care Provider] - Within 2 Weeks Disposition Disposition (needs filled in before D/C Order can be placed): Home, Self Care Charges/Coding Visit Charges Inpatient E&M: 06941 Disch Hosp >30min 08/30/24 0843 <Electronically signed by Kal Gomez MD> Cosigner Signature (if applicable): CC: Dr. Kal Gomez MD; Dr. Brandon March MD~ Signed ADDENDUM by Dr. Kal Gomez MD on 08/30/24 at 0843 Visit Charges Inpatient E&M: 13886 Disch Hosp >30min 08/30/24 0843<Electronically signed by Kal Gomez MD> Cosigner Signature (if applicable): cc: Dr. Kal Gomez MD; Dr. Brandon March MD ~* Signed ADDENDUM by Dr. Kal Gomez MD on 08/31/24 at 0825 Addendum Patient discharge was delayed for a day after she refused to go home stating shedid not feel ready. She was discharged on 08/31/2024. No changes were made to her discharge instructions and medications. Visit Charges Inpatient E&M: 07426 Disch Hosp >30min 08/31/24 0825<Electronically signed by Kal Gomez MD> Cosigner Signature (if applicable): cc: Dr. Kal Gomez MD; Dr. Brandon March MD ~* Signed [facility] Work Phone: [phone]) 306-499407-20-2025 Progress note Author Kal Gomez [facility] Note Date/Time August 31, 2024 8:19 am [facility] Medical Records Department [address] [place] [address] Progress Note - Hospitalist 08/30/24 1725 MR#: [id number] Acct: [id number] Name: JANIA SPRAGUE Rep #:[id number] : 1940 84 From: Kal Gomez MD PCP: Dr. Brandon March MD Status:ADM I NO Location: [facility]026-4 Reason for Visit Chief Complaint: Fall x 2 this week. Subjective Subjective Patient was discharged earlier on in the day however she declined going home stating she felt she was not ready. Objective Data Objective Data Vital Signs: Vital Signs Temp Pulse Resp BP Pulse Ox O2 Del Method 97.9 F 62 14 134/61 H 96 Room Air 08/30/24 15:00 08/30/24 15:06 08/30/24 15:00 08/30/24 15:37 08/30/24 15:00 08/30/24 11:35 Oxygen Delivery Method Room Air Weight: 80.739 kg Body Mass Index (BMI) 33.1 Intake & Output: Intake and Output for Last 24 Hours 08/28/24 08/29/24 08/30/24 23:59 23:59 23:59 Intake Total 1000 / 1000 480 / 480 Output Total 500 / 500 Balance 500 / 500 480 / 480 Lab / Micro Data 08/31/24 06:05 08/31/24 06:05 Labs: Laboratory Results - last 24 hr 08/30/24 06:00: WBC 14.1 H, RBC 4.34, Hgb 13.2, Hct 38.7, MCV 89.2, MCH 30.4, MCHC 34.1, RDW Std Deviation 39.4, RDW Coeff of Patrizia 12.2, Plt Count 284, MPV 10.3, Immature Gran % (Auto) 1.100 H, Neut % (Auto) 83.6 H, Lymph % (Auto) 9.8 L, Jones % (Auto) 5.4, Eos % (Auto) 0.0, Baso % (Auto) 0.1, Absolute Neuts (auto) 11.8 H, Absolute Lymphs (auto) 1.38, Nucleated RBC % 0, Sodium 130 L, Potassium 4.6, Chloride 101, Carbon Dioxide 18.0 L, Anion Gap 11, BUN 33 H, Creatinine 1.38 H, Estim Creat Clear Calc 28.69 L, Est GFR (MDRD) Non-Af 38 L, BUN/Creatinine Ratio 23.8 H, Glucose 168 H, Calcium 9.5, Phosphorus 3.2, Magnesium 2.3 H, Total Bilirubin 0.72, Direct Bilirubin 0.35 H, AST 83 H, ALT 97 H, Alkaline Phosphatase 146 H, Total Protein 5.6 L, Albumin 3.5, Globulin 2.1 L Radiography Diagnostic Testing: Radiology Impression Abdomen Ultrasound 08/29/24 09:52 IMPRESSION: Prominent common bile duct which can be seen status post cholecystectomy. Similar appearance on CT study of 01/18/2024 Reading Location: [facility] Physical Exam Narrative GENERAL: cooperative HEENT: Atraumatic; normocephalic EYES; Anicteric, Normal Conjunctiva NECK; supple, normal thyroid, RESPIRATORY: Diminished to auscultation CARDIOVASCULAR: Regular S1 S2, GI: soft, normoactive bowel sounds, : No Renal angle tenderness; EXTREMITIES: No edema, no clubbing, MUSCULOSKELETAL: no muscle wasting NEURO: Awake; no lateralizing signs. SKIN: No Rash PSYCH; Flat affect Assessment & Plan Assessment/Plan (1) Compression fracture of L2: QUALIFIERS: Encounter type: initial encounter Qualified Code(s): S32.020A - Wedge compression fracture of second lumbar vertebra, initial encounter for closed fracture (2) Fall: QUALIFIERS: Encounter type: initial encounter Qualified Code(s): W19.XXXA - Unspecified fall, initial encounter (3) Intractable back pain: PLAN: Plan Patient is an 84-year-old lady admitted with fall days prior to admission who presented to the emergency department with difficulty with ambulation as well asback pain. Admitted to regular nursing floor for further management 1. Fall with intractable back pain ? CT of the lumbar spine obtained on admission did show Compression Fracture of the L2 vertebral body involving the superior end-plate and resulting in ~30% height loss and ~4 mm of fracture fragment retropulsion, new since 03/12/2024 with MRI recommended to confirm acuity. Admitted to regular nursing floor for pain control. Also started on steroids consult placed to spine surgery. MRI was ordered for subsequent eval 08/30/2024; MRI obtained the day prior did not show acute-subacute compression fracture involving superior endplate of L2. No retropulsion. multilevel spondylotic changes as described with no high-grade spinal canal narrowing. Grade 2 degenerative anterolisthesis of L5 on S1. Neural foraminal narrowing isat most moderate on the left at L4-5, and moderate-advanced bilaterally at L5-S1. ? Patient was discharged home with pain medication as well as antispasmodics andfollow-up set up with pain management as outpatient ? 08/30/2024; Patient was discharged earlier on in the day however she declined going home stating she felt she was not ready. 2. Physical deconditioning/debility secondary to above ? Requested for PT OT eval and social service coordinator to assist with discharge planning 3.Hypertension ? Blood pressure controlled, home medications continued with dose adjustment as needed 4. Depression with anxiety ? Patient is on paroxetine 5. GERD ? Patient is on PPI 6.Class I obesity with BMI of 31 ? Complicating care weight loss advised 7. Hyponatremia ? Secondary to patient being on HCTZ we will continue with monitoring and is continued patient sodium levels continue to follow 8. Leukocytosis ? Etiology not clear we will continue monitor trend 9. Abnormal LFTs ? Ordered gallbladder ultrasound Prominent common bile duct which can be seen status post cholecystectomy. Similar appearance on CT study of 01/18/2024 10. DVT prophylaxis Only SCDs only for now pending evaluation by spine surgeon Time spent in the patient's overall evaluation,decision-making process, review of diagnostic data, adjustment of management, discussion with other providers, nursing nursing and ancillary staff involved in patient's care documentation, 35 Minutes Charges/Coding Visit Charges Inpatient E&M: 65324 Subs Hosp L2 Reason for DC delay: Pt / family delay 08/31/24 0819 <Electronically signed by Kal Gomez MD> Cosigner Signature (if applicable): CC: ~ Signed [facility] Work Phone: [phone] 173-864407-20-2025 Discharge summary [facility] Medical Records Department [address] [place] [id number] Discharge Summary 08/30/24 0835 MR#: [id number] Acct: [id number] Name: JANIA SPRAGUE Rep #:[id number] : 1940 84 From: Kal Gomez MD PCP: Dr. Brandon March MD Status:ADM I NO Location: [facility] [id number] Providers Date of Admission: 08/28/24 Date of Discharge: 08/30/24 Primary Care Physician: Dr. Brandon March MD Consultations 08/28/24 22:36 Consult: Orthopedics Routine Consulting Provider: Dickson Viveros Reason for Consult: L2 comp fx after fall with retropulsion. EMERGENT Consult: No MD Notified: Yes Date Notified: 08/29/24 Time Notified: 10:00 Method of Notification: Text Reason For Visit: ACUTE L2 COMP. FX W/ RETROPULSION AND Diagnosis Discharge Diagnosis (1) Compression fracture of L2: Status: Acute Code(s): S32.020A - Wedge compression fracture of second lumbar vertebra, initial encounter for closed fracture Qualifiers: Encounter type: initial encounter Qualified Code(s): S32.020A - Wedge compression fracture of second lumbar vertebra, initial encounter for closed fracture (2) Fall: Status: Acute Code(s): W19.XXXA - Unspecified fall, initial encounter Qualifiers: Encounter type: initial encounter Qualified Code(s): W19.XXXA - Unspecified fall, initial encounter (3) Intractable back pain: Status: Acute Code(s): M54.9 - Dorsalgia, unspecified Plan Patient is an 84-year-old lady admitted with fall days prior to admission who presented to the emergency department with difficulty with ambulation as well asback pain. Admitted to regular nursing floor for further management 1. Fall with intractable back pain ? CT of the lumbar spine obtained on admission did show Compression Fracture of the L2 vertebral body involving the superior end-plate and resulting in ~30% height loss and ~4 mm of fracture fragmentretropulsion, new since 03/12/2024 with MRI recommended to confirm acuity. Admitted to regular nursing floor for pain control. Also started on steroids consult placed to spine surgery. MRI was orderedfor subsequent eval 08/30/2024; MRI obtained the day prior did not show acute-subacute compression fracture involving superior endplate of L2. No retropulsion. multilevel spondylotic changes as described with no high-grade spinal canal narrowing. Grade 2 degenerative anterolisthesis of L5 on S1. Neural foraminal narrowing isat most moderate on the left at L4-5, and moderate-advanced bilaterally at L5-S1. ? Patient was discharged home with pain medication as well as antispasmodics andfollow-up set up with pain management as outpatient 2. Physical deconditioning/debility secondary to above ? Requested for PT OT eval and social service coordinator to assist with discharge planning 3.Hypertension ? Blood pressure controlled, home medications continued with dose adjustment as needed 4. Depression with anxiety ? Patient is on paroxetine 5. GERD ? Patient is on PPI 6.Class I obesity with BMI of 31 ? Complicating care weight loss advised 7. Hyponatremia ? Secondary to patient being on HCTZ we will continue with monitoring and is continued patient sodium levels continue to follow 8. Leukocytosis ? Etiology not clear we will continue monitor trend 9. Abnormal LFTs ? Ordered gallbladder ultrasound Prominent common bile duct which can be seen status post cholecystectomy. Similar appearance on CT study of 01/18/2024 10. DVT prophylaxis Only SCDs only for now pending evaluation by spine surgeon Time spent in the patient's overall evaluation,decision-making process, review of diagnostic data, adjustment of management, discussion with other providers, nursing nursing and ancillary staff involved in patient's care documentation, 35 Minutes Medications at Discharge Home Medications loratadine 10 mg tablet 10 mg PO DAILY PRN ALLERGIES 11/30/17 losartan 100 mg tablet 100 mg PO DAILY heart #30 tabs 11/30/17 paroxetine HCl 20 mg tablet 20 mg PO DAILY mood #30 tabs 11/30/17 albuterol sulfate 90 mcg/actuation aerosol inhaler 1 puff inhalation Q6H PRN SOB07/25/21 cholecalciferol (vitamin D3) 25 mcg (1,000 unit) [...] mg/1.5 mL subcutaneous syringe 284 mg subcut [id number] mjcyojnsear40/23/24 linaclotide 72 mcg capsule (Linzess) 72 mcg PO DAILY PRN constipation 07/05/23 carvedilol 6.25 mg tablet (Coreg) 6.25 mg PO BID #60 tabs 02/25/24 acetaminophen 500 mg tablet (Acetaminophen Extra Strength) 500 mg PO Q6H PRN fever or pain 08/28/24 latanoprost 0.005 % eye drops 1 drp ophthalmic (eye) QHS 08/28/24 meclizine 25 mg tablet 25 mg PO TID PRN PRN dizziness 08/28/24 naproxen 250 mg tablet 250 mg PO BID 08/28/24 prednisone 10 mg tablet 10 mg PO steroid 08/28/24 lidocaine 5 % topical patch 1 patch topical 2200 #30 ea 08/30/24 oxycodone 5 mg tablet 5 mg PO Q4H PRN PRN Pain Score 4-10 5 days #14 tabs 08/30/24 prednisone 20 mg tablet 20 mg PO BID #14 tabs 08/30/24 Physical Exam Narrative GENERAL: cooperative HEENT: Atraumatic; normocephalic EYES; Anicteric, Normal Conjunctiva NECK; supple, normal thyroid, RESPIRATORY: Diminished to auscultation CARDIOVASCULAR: Regular S1 S2, GI: soft, normoactive bowel sounds, : No Renal angle tenderness; EXTREMITIES: No edema, no clubbing, MUSCULOSKELETAL: no muscle wasting NEURO: Awake; no lateralizing signs. SKIN: No Rash PSYCH; Flat affect Weight / BMI Weight Weight: 80.739 kg Body Mass Index (BMI) 33.1 ABG / Lab / Microbiology Data 08/30/24 06:00 08/30/24 06:00 Laboratory: Laboratory Results - last 24 hr 08/30/24 06:00: WBC 14.1 H, RBC 4.34, Hgb 13.2, Hct 38.7, MCV 89.2, MCH 30.4, MCHC 34.1, RDW Std Deviation 39.4, RDW Coeff of Patrizia 12.2, Plt Count 284, MPV 10.3, Immature Gran % (Auto) 1.100 H, Neut %(Auto) 83.6 H, Lymph % (Auto) 9.8 L, Jones % (Auto) 5.4, Eos % (Auto) 0.0, Baso % (Auto) 0.1, Absolute Neuts (auto) 11.8 H, Absolute Lymphs (auto) 1.38, Nucleated RBC % 0, Sodium 130 L, Potassium 4.6,Chloride 101, Carbon Dioxide 18.0 L, Anion Gap 11, BUN 33 H, Creatinine 1.38 H, Estim Creat Clear Calc 28.69 L, Est GFR (MDRD) Non-Af 38 L, BUN/Creatinine Ratio 23.8 H, Glucose 168 H, Calcium 9.5, Phosphorus 3.2, Magnesium 2.3 H Radiography Diagnostic Testing: Radiology Impression Abdomen Ultrasound 08/29/24 09:52 IMPRESSION: Prominent common bile duct which can be seen status post cholecystectomy. Similar appearance on CT study of 01/18/2024 Reading Location: [facility] Lumbar Spine MRI 08/29/24 22:11 IMPRESSION: Acute-subacute compression fracture involving superior endplate of L2. No retropulsion. Multilevel spondylotic changes as described with no high-grade spinal canal narrowing. Grade 2 degenerative anterolisthesis of L5 on S1. Neural foraminal narrowing isat most moderate on the left at L4-5, and moderate-advanced bilaterally at L5-S1. Reading Location: [id number] D/C Instructions Discharge Activity: Return to Normal Activity Call your doctor if you observe: Fever of 101 or Higher, Shortness of breath, Fainting spells and Chest pain DC O2, CPAP, BIPAP Needs Home O2 Discharge instructions: No Meaningful Use Info Meaningful Use Meaningful Use Diagnoses (Choose all that apply): None applicable Discharge Plan Admission Admit Date/Time: 08/28/24 22:03 Attending Provider: Kal Gomez Primary Care Provider: Brandon March [employer] Consult[employer] Providers: Kal Wright; Dickson Viveros Discharge Orders/Prescriptions Prescriptions: New lidocaine 5 % Adhesive Patch,Medicated 1 patch topical 2199 Qty: 30 0RF Protocol: *Topical Application Instructions APPLICATION INSTRUCTIONS: affected area oxycodone 5 mg Tablet 5 mg PO Q4H PRN PRN (Reason: Pain Score 4-10) 5 Days Qty: 14 0RF prednisone 20 mg tablet 20 mg PO BID Qty: 14 0RF Continued dexlansoprazole [Dexilant] 60 mg capsule,biphase delayed releas 60 mg PO BID Qty: 120 4RF clonidine 0.3 mg/24 hr patch weekly 1 patch transdermal QWEEK Patient Comments: Patient changes patch on Sundays. Linzess 72 mcg capsule 72 mcg PO DAILY PRN (Reason: constipation) inclisiran 284 mg/1.5 mL syringe 284 mg subcut [id number] Rx Instructions: due in september carvedilol [Coreg] 6.25 mg tablet 6.25 mg PO BID Qty: 60 11RF Rx Instructions: must administer with a meal/food multivitamin Tablet 1 tab PO DAILY paroxetine HCl 20 MG tablet 20 mg [...] PO DAILY PRN (Reason: high blood pressure) latanoprost 0.005 % drops 1 drp ophthalmic (eye) QHS meclizine 25 mg tablet 25 mg PO TID PRN PRN (Reason: dizziness) prednisone 10 mg tablet 10 mg PO Patient Comments: TAKE 3 TABLETS BY MOUTHIONCE DAILY FOR 2 DAYS THEN 2 FOR 2 DAYS THEN 1 FOR 2 DAYS THEN STOP naproxen 250 mg tablet 250 mg PO BID acetaminophen [Acetaminophen Extra Strength] 500 mg tablet 500 mg PO Q6H PRN (Reason: fever or pain) Discontinued baclofen 10 mg tablet 10 mg PO QHS Referrals / Follow Up: Cal Nino MD [Med Staff - Active Staff] - Within 1 Week Brandon March Chi, MD [Primary Care Provider] - Within 2 Weeks Disposition Disposition (needs filled in before D/C Order can be placed): Home, Self Care Charges/Coding Visit Charges Inpatient E&M: 32892 Disch Hosp >30min 08/30/24 0843 Cosigner Signature (if applicable): CC: Dr. Kal Gomez MD; Dr. Brandon March MD~ Signed ADDENDUM by Dr. Kal Gomez MD on 08/30/24 at 0843 Visit Charges Inpatient E&M: 35850 Disch Hosp >30min 08/30/24 0843 Cosigner Signature (if applicable): cc: Dr. Kal Gomez MD; Dr. Brandon March MD ~* Signed ADDENDUM by Dr. Kal Gomez MD on 08/31/24 at 0825 Addendum Patient discharge was delayed for a day after she refused to go home stating shedid not feel ready.She was discharged on 08/31/2024. No changes were made to her discharge instructions and medications. Visit Charges Inpatient E&M: 58958 Disch Hosp >30min 08/31/24 0825 Cosigner Signature (if applicable): cc: Dr. Kal Gomez MD; Dr. Brandon March MD ~* Signed [facility]07-20-2025 Progress note [facility] Medical Records Department [address] [place] [address] Progress Note - Hospitalist 08/30/24 1725 MR#: [id number] Acct: [id number] Name: JANIA SPRAGUE Rep #:[id number] : 1940 84 From: Kal Gomez MD PCP: Dr. Brandon March MD Status:ADM I NO Location: [place] [address] Reason for Visit Chief Complaint: Fall x 2 this week. Subjective Subjective Patient was discharged earlier on in the day however she declined going home stating she felt she was not ready. Objective Data Objective Data Vital Signs: Vital Signs Temp Pulse Resp BP Pulse Ox O2 Del Method 97.9 F 62 14 134/61 H 96 Room Air 08/30/24 15:00 08/30/24 15:06 08/30/24 15:00 08/30/24 15:37 08/30/24 15:00 08/30/24 11:35 Oxygen Delivery Method Room Air Weight: 80.739 kg Body Mass Index (BMI) 33.1 Intake & Output: Intake and Output for Last 24 Hours 08/28/24 08/29/24 08/30/24 23:59 23:59 23:59 Intake Total 1000 / 1000 480 / 480 Output Total 500 / 500 Balance 500 / 500 480 / 480 Lab / Micro Data 08/31/24 06:05 08/31/24 06:05 Labs: Laboratory Results - last 24 hr 08/30/24 06:00: WBC 14.1 H, RBC 4.34, Hgb 13.2, Hct 38.7, MCV 89.2, MCH 30.4, MCHC 34.1, RDW Std Deviation 39.4, RDW Coeff of Patrizia 12.2, Plt Count 284, MPV 10.3, Immature Gran % (Auto) 1.100 H, Neut %(Auto) 83.6 H, Lymph % (Auto) 9.8 L, Jones % (Auto) 5.4, Eos % (Auto) 0.0, Baso % (Auto) 0.1, Absolute Neuts (auto) 11.8 H, Absolute Lymphs (auto) 1.38, Nucleated RBC % 0, Sodium 130 L, Potassium 4.6,Chloride 101, Carbon Dioxide 18.0 L, Anion Gap 11, BUN 33 H, Creatinine 1.38 H, Estim Creat Clear Calc 28.69 L, Est GFR (MDRD) Non-Af 38 L, BUN/Creatinine Ratio 23.8 H, Glucose 168 H, Calcium 9.5, Phosphorus 3.2, Magnesium 2.3 H, Total Bilirubin 0.72, Direct Bilirubin 0.35 H, AST 83 H, ALT 97 H, Alkaline Phosphatase 146 H, Total Protein 5.6 L, Albumin 3.5, Globulin 2.1 L Radiography Diagnostic Testing: Radiology Impression Abdomen Ultrasound 08/29/24 09:52 IMPRESSION: Prominent common bile duct which can be seen status post cholecystectomy. Similar appearance on CT study of 01/18/2024 Reading Location: [facility] Physical Exam Narrative GENERAL: cooperative HEENT: Atraumatic; normocephalic EYES; Anicteric, Normal Conjunctiva NECK; supple, normal thyroid, RESPIRATORY: Diminished to auscultation CARDIOVASCULAR: Regular S1 S2, GI: soft, normoactive bowel sounds, : No Renal angle tenderness; EXTREMITIES: No edema, no clubbing, MUSCULOSKELETAL: no muscle wasting NEURO: Awake; no lateralizing signs. SKIN: No Rash PSYCH; Flat affect Assessment & Plan Assessment/Plan (1) Compression fracture of L2: QUALIFIERS: Encounter type: initial encounter Qualified Code(s): S32.020A - Wedge compression fracture of second lumbar vertebra, initial encounter for closed fracture (2) Fall: QUALIFIERS: Encounter type: initial encounter Qualified Code(s): W19.XXXA - Unspecified fall, initial encounter (3) Intractable back pain: PLAN: Plan Patient is an 84-year-old lady admitted with fall days prior to admission who presented to the emergency department with difficulty with ambulation as well asback pain. Admitted to regular nursing floor for further management 1. Fall with intractable back pain ? CT of the lumbar spine obtained on admission did show Compression Fracture of the L2 vertebral body involving the superior end-plate and resulting in ~30% height loss and ~4 mm of fracture fragmentretropulsion, new since 03/12/2024 with MRI recommended to confirm acuity. Admitted to regular nursing floor for pain control. Also started on steroids consult placed to spine surgery. MRI was orderedfor subsequent eval 08/30/2024; MRI obtained the day prior did not show acute-subacute compression fracture involving superior endplate of L2. No retropulsion. multilevel spondylotic changes as described with no high-grade spinal canal narrowing. Grade 2 degenerative anterolisthesis of L5 on S1. Neural foraminal narrowing isat most moderate on the left at L4-5, and moderate-advanced bilaterally at L5-S1. ? Patient was discharged home with pain medication as well as antispasmodics andfollow-up set up with pain management as outpatient ? 08/30/2024; Patient was discharged earlier on in the day however she declined going home stating she felt she was not ready. 2. Physical deconditioning/debility secondary to above ? Requested for PT OT eval and social service coordinator to assist with discharge planning 3.Hypertension ? Blood pressure controlled, home medications continued with dose adjustment as needed 4. Depression with anxiety ? Patient is on paroxetine 5. GERD ? Patient is on PPI 6.Class I obesity with BMI of 31 ? Complicating care weight loss advised 7. Hyponatremia ? Secondary to patient being on HCTZ we will continue with monitoring and is continued patient sodium levels continue to follow 8. Leukocytosis ? Etiology not clear we will continue monitor trend 9. Abnormal LFTs ? Ordered gallbladder ultrasound Prominent common bile duct which can be seen status post cholecystectomy. Similar appearance on CT study of 01/18/2024 10. DVT prophylaxis Only SCDs only for now pending evaluation by spine surgeon Time spent in the patient's overall evaluation,decision-making process, review of diagnostic data, adjustment of management, discussion with other providers, nursing nursing and ancillary staff involved in patient's care documentation, 35 Minutes Charges/Coding Visit Charges Inpatient E&M: 72257 Subs Hosp L2 Reason for DC delay: Pt / family delay 08/31/24 0819 Cosigner Signature (if applicable): CC: ~ Signed [facility]07-19-2025 Hospital Discharge instructionsAdditional Instructions Date of Discharge: 08/30/24[facility] Work Phone: 1(301) 645-878607-19-2025 [facility]07-18-2025 Radiology Diagnostic study note [facility] Imaging Services [address] [place] [address] Abdomen Limited MR#: [id number] Acct: [id number] Name: JANIA SPRAGUE Rep #: [id number] : 1940 F 84 From: Bailee Chavez MD PCP: Dr. Brandon March MD Status: ADM I NO Study:Abdomen Limited Date of Exam: 08/12 10/06 Exam# [id number] Ordering Dr: Logan Gomez MD PROCEDURE: ABDOMEN LIMITED 08/29/2024 REASON FOR EXAM: ELEVATED LFTS TECHNIQUE: ABDOMEN LIMITED FINDINGS: Liver unremarkable. Portal vein is patent. The gallbladder surgically absent. Right kidney measures8.6 x 4.1 x 4.2 cm. The common bile duct is prominent at 10 mm. Pancreatic head and body are unremarkable US/Abdomen Limited IMPRESSION: Prominent common bile duct which can be seen status post cholecystectomy. Similar appearance on CT study of 01/18/2024 Reading Location: [facility] CC: Dr. Kal Gomez MD; Dr. Brandon March MD ~ Filament Coil Winder: Signed [facility]07-18-2025 Progress note Author Kal Gomez [facility] Note Date/Time August 29, 2024 9:39 am [facility] Medical Records Department [address] [place] [address] Progress Note - Hospitalist 08/29/24 0800 MR#: [id number] Acct: [id number] Name: JANIA SPRAGUE Rep #:[id number] : 1940 84 From: Kal Gomez MD PCP: Dr. Brandon March MD Status:ADM I NO Location: [facility] EF806-7 Reason for Visit Chief Complaint: Fall x 2 this week. Subjective Subjective Patient is an 84-year-old lady admitted with fall days prior to admission who presented to the emergency department with difficulty with ambulation as well asback pain. Admitted to regular nursing floor for further management Objective Data Objective Data Vital Signs: Vital Signs Temp Pulse Resp BP Pulse Ox O2 Del Method 97.5 F L 64 16 162/76 H 94 Room Air 08/29/24 03:01 08/29/24 03:01 08/29/24 03:01 08/29/24 03:01 08/29/24 03:01 08/29/24 07:12 Oxygen Delivery Method Room Air Weight: 74.4 kg Body Mass Index (BMI) 30.4 Intake & Output: Intake and Output for Last 24 Hours 08/27/24 08/28/24 08/29/24 23:59 23:59 23:59 Output Total 500 / 500 Balance -500 / -500 Lab / Micro Data 08/29/24 05:23 08/29/24 05:23 Labs: Laboratory Results - last 24 hr 08/28/24 21:18: WBC 25.0 H, RBC 4.32, Hgb 13.6, Hct 38.9, MCV 90.0, MCH 31.5, MCHC 35.0, RDW Std Deviation 39.5, RDW Coeff of Patrizia 12.0, Plt Count 300, MPV 10.2, Immature Gran % (Auto) 0.700, Neut % (Auto) 84.1 H, Lymph % (Auto) 7.9 L, Jones % (Auto) 7.2, Eos % (Auto) 0.0, Baso % (Auto) 0.1, Absolute Neuts (auto) 21.0 H, Absolute Lymphs (auto) 1.97, Nucleated RBC % 0, Differential Comment SCANNED, Sodium 131 L, Potassium 4.8, Chloride 100, Carbon Dioxide 19.5 L, AnionGap 12, BUN 28 H, Creatinine 1.21 H, Estim Creat Clear Calc 32.05 L, Est GFR (MDRD) Non-Af 44 L, BUN/Creatinine Ratio 23.3 H, Glucose 115 H, Calcium 9.8, Magnesium 2.2 08/29/24 05:23: WBC 19.5 H, RBC 4.18 L, Hgb 12.9, Hct 37.5, MCV 89.7, MCH 30.9, MCHC 34.4, RDW Std Deviation 39.8, RDW Coeff of Patrizia 12.1, Plt Count 275, MPV 10.4, Immature Gran % (Auto) 0.900, Neut % (Auto) 87.4 H, Lymph % (Auto) 7.5 L, Jones % (Auto) 4.1, Eos % (Auto) 0.0, Baso % (Auto) 0.1, Absolute Neuts (auto) 17.1 H, Absolute Lymphs (auto) 1.46, Nucleated RBC % 0, Sodium 131 L, Potassium 4.7, Chloride 100, Carbon Dioxide 18.9 L, Anion Gap 12, BUN 29 H, Creatinine 1.28 H, Estim Creat Clear Calc 29.64 L, Est GFR (MDRD) Non-Af 41 L, BUN/Creatinine Ratio 22.3 H, Glucose 156 H, Calcium 9.7, Phosphorus 3.3, Total Bilirubin 2.07 H, AST 289 H, ALT 118 H, Alkaline Phosphatase 164 H, Total Protein 6.0, Albumin 3.6, Globulin 2.4, Albumin/Globulin Ratio 1.5, TSH 0.370 08/29/24 06:55: Urine Color Yellow, Urine Clarity Clear, Urine pH 6.0, Ur Specific Tryon 1.015, Urine Protein 15 H, Urine Glucose (UA) Normal, Urine Ketones 5 H, Urine Occult Blood Negative, Urine Nitrite Negative, Urine Bilirubin 1 H, Urine Urobilinogen 4 H, Ur Leukocyte Esterase 25 H, Urine RBC 0 SEEN, Urine WBC 0-5 SEEN, Ur Squamous Epith Cells 0-5 SEEN, Urine Bacteria 0 SEEN, Urine Mucus 0 SEEN Radiography Diagnostic Testing: Radiology Impression Lumbar Spine CT 08/28/24 19:41 IMPRESSION: 1. Compression fracture of the L2 vertebral body, involving the superior endplate and resulting in 30% height loss and 4 mm of fracture fragment retropulsion. This finding is new since CT on 03/12/2024. MRI could be performed to determine acuity if clinically warranted. 2. Unchanged compression deformity at T12. 3. Multilevel degenerative changes of the lumbar spine, worst at L5-S1. Reading Location: [facility] Physical Exam Narrative GENERAL: cooperative HEENT: Atraumatic; normocephalic EYES; Anicteric, Normal Conjunctiva NECK; supple, normal thyroid, RESPIRATORY: Diminished to auscultation CARDIOVASCULAR: Regular S1 S2, GI: soft, normoactive bowel sounds, : No Renal angle tenderness; EXTREMITIES: No edema, no clubbing, MUSCULOSKELETAL: no muscle wasting NEURO: Awake; no lateralizing signs. SKIN: No Rash PSYCH; Flat affect Assessment & Plan Assessment/Plan (1) Compression fracture of L2: QUALIFIERS: Encounter type: initial encounter Qualified Code(s): S32.020A - Wedge compression fracture of second lumbar vertebra, initial encounter for closed fracture (2) Fall: QUALIFIERS: Encounter type: initial encounter Qualified Code(s): W19.XXXA - Unspecified fall, initial encounter (3) Intractable back pain: PLAN: Plan Patient is an 84-year-old lady admitted with fall days prior to admission who presented to the emergency department with difficulty with ambulation as well asback pain. Admitted to regular nursing floor for further management 1. Fall with intractable back pain ? CT of the lumbar spine obtained on admission did show Compression Fracture of the L2 vertebral body involving the superior end-plate and resulting in ~30% height loss and ~4 mm of fracture fragment retropulsion, new since 03/12/2024 with MRI recommended to confirm acuity. Admitted to regular nursing floor for pain control. Also started on steroids consult placed to spine surgery. MRI was ordered for subsequent eval 2. Physical deconditioning/debility secondary to above ? Requested for PT OT eval and social service coordinator to assist with discharge planning 3.Hypertension ? Blood pressure controlled, home medications continued with dose adjustment as needed 4. Depression with anxiety ? Patient is on paroxetine 5. GERD ? Patient is on PPI 6.Class I obesity with BMI of 31 ? Complicating care weight loss advised 7. Hyponatremia ? Secondary to patient being on HCTZ we will continue with monitoring and is continued patient sodium levels continue to follow 8. Leukocytosis ? Etiology not clear we will continue monitor trend 9. Abnormal LFTs ? Ordered gallbladder ultrasound 10. DVT prophylaxis Only SCDs only for now pending evaluation by spine surgeon Time spent in the patient's overall evaluation,decision-making process, review of diagnostic data, adjustment of management, discussion with other providers, nursing nursing and ancillary staff involved in patient's care documentation, 50 Minutes Charges/Coding Visit Charges Inpatient E&M: 90678 Subs Hosp L3 08/29/24 0939 <Electronically signed by Kal Gomez MD> Cosigner Signature (if applicable): CC: ~ Signed [facility] Work Phone: 1(423) 328-109107-18-2025 Progress note [facility] Medical Records Department [address] [place] [address] Progress Note - Hospitalist 08/29/24 0800 MR#: [id number] Acct: [id number] Name: JANIA SPRAGUE Rep #:[id number] : 1940 84 From: Kal Gomez MD PCP: Dr. Brandon March MD Status:ADM I NO Location: [place] 204002-1 Reason for Visit Chief Complaint: Fall x 2 this week. Subjective Subjective Patient is an 84-year-old lady admitted with fall days prior to admission who presented to the emergency department with difficulty with ambulation as well asback pain. Admitted to regular nursing floor for further management Objective Data Objective Data Vital Signs: Vital Signs Temp Pulse Resp BP Pulse Ox O2 Del Method 97.5 F L 64 16 162/76 H 94 Room Air 08/29/24 03:01 08/29/24 03:01 08/29/24 03:01 08/29/24 03:01 08/29/24 03:01 08/29/24 07:12 Oxygen Delivery Method Room Air Weight: 74.4 kg Body Mass Index (BMI) 30.4 Intake & Output: Intake and Output for Last 24 Hours 08/27/24 08/28/24 08/29/24 23:59 23:59 23:59 Output Total 500 / 500 Balance -500 / -500 Lab / Micro Data 08/29/24 05:23 08/29/24 05:23 Labs: Laboratory Results - last 24 hr 08/28/24 21:18: WBC 25.0 H, RBC 4.32, Hgb 13.6, Hct 38.9, MCV 90.0, MCH 31.5, MCHC 35.0, RDW Std Deviation 39.5, RDW Coeff of Patrizia 12.0, Plt Count 300, MPV 10.2, Immature Gran % (Auto) 0.700, Neut % (Auto) 84.1 H, Lymph % (Auto) 7.9 L, Jones % (Auto) 7.2, Eos % (Auto) 0.0, Baso % (Auto) 0.1, AbsoluteNeuts (auto) 21.0 H, Absolute Lymphs (auto) 1.97, Nucleated RBC % 0, Differential Comment SCANNED, Sodium 131 L, Potassium 4.8, Chloride 100, Carbon Dioxide 19.5 L, AnionGap 12, BUN 28 H, Creatinine 1.21 H, Estim Creat Clear Calc 32.05 L, Est GFR (MDRD) Non-Af 44 L, BUN/Creatinine Ratio 23.3 H, Glucose 115 H, Calcium 9.8, Magnesium 2.2 08/29/24 05:23: WBC 19.5 H, RBC 4.18 L, Hgb 12.9, Hct 37.5, MCV 89.7, MCH 30.9, MCHC 34.4, RDW Std Deviation 39.8, RDW Coeff of Patrizia 12.1, Plt Count 275, MPV 10.4, Immature Gran % (Auto) 0.900, Neut %(Auto) 87.4 H, Lymph % (Auto) 7.5 L, Jones % (Auto) 4.1, Eos % (Auto) 0.0, Baso % (Auto) 0.1, Absolute Neuts (auto) 17.1 H, Absolute Lymphs (auto) 1.46, Nucleated RBC % 0, Sodium 131 L, Potassium 4.7,Chloride 100, Carbon Dioxide 18.9 L, Anion Gap 12, BUN 29 H, Creatinine 1.28 H, Estim Creat Clear Calc 29.64 L, Est GFR (MDRD) Non-Af 41 L, BUN/Creatinine Ratio 22.3 H, Glucose 156 H, Calcium 9.7, Phosphorus 3.3, Total Bilirubin 2.07 H, AST 289 H, ALT 118 H, Alkaline Phosphatase 164 H, Total Protein 6.0, Albumin 3.6, Globulin 2.4, Albumin/Globulin Ratio 1.5, TSH 0.370 08/29/24 06:55: Urine Color Yellow, Urine Clarity Clear, Urine pH 6.0, Ur Specific Tryon 1.015, Urine Protein 15 H, Urine Glucose (UA) Normal, Urine Ketones 5 H, Urine Occult Blood Negative, Urine Nitrite Negative, Urine Bilirubin 1 H, Urine Urobilinogen 4 H, Ur Leukocyte Esterase 25 H, Urine RBC0 SEEN, Urine WBC 0-5 SEEN, Ur Squamous Epith Cells 0-5 SEEN, Urine Bacteria 0 SEEN, Urine Mucus 0 SEEN Radiography Diagnostic Testing: Radiology Impression Lumbar Spine CT 08/28/24 19:41 IMPRESSION: 1. Compression fracture of the L2 vertebral body, involving the superior endplate and resulting in 30% height loss and 4 mm of fracture fragment retropulsion. This finding is new since CT on 03/12/2024. MRI could be performed to determine acuity if clinically warranted. 2. Unchanged compression deformity at T12. 3. Multilevel degenerative changes of the lumbar spine, worst at L5-S1. Reading Location: [facility] Physical Exam Narrative GENERAL: cooperative HEENT: Atraumatic; normocephalic EYES; Anicteric, Normal Conjunctiva NECK; supple, normal thyroid, RESPIRATORY: Diminished to auscultation CARDIOVASCULAR: Regular S1 S2, GI: soft, normoactive bowel sounds, : No Renal angle tenderness; EXTREMITIES: No edema, no clubbing, MUSCULOSKELETAL: no muscle wasting NEURO: Awake; no lateralizing signs. SKIN: No Rash PSYCH; Flat affect Assessment & Plan Assessment/Plan (1) Compression fracture of L2: QUALIFIERS: Encounter type: initial encounter Qualified Code(s): S32.020A - Wedge compression fracture of second lumbar vertebra, initial encounter for closed fracture (2) Fall: QUALIFIERS: Encounter type: initial encounter Qualified Code(s): W19.XXXA - Unspecified fall, initial encounter (3) Intractable back pain: PLAN: Plan Patient is an 84-year-old lady admitted with fall days prior to admission who presented to the emergency department with difficulty with ambulation as well asback pain. Admitted to regular nursing floor for further management 1. Fall with intractable back pain ? CT of the lumbar spine obtained on admission did show Compression Fracture of the L2 vertebral body involving the superior end-plate and resulting in ~30% height loss and ~4 mm of fracture fragmentretropulsion, new since 03/12/2024 with MRI recommended to confirm acuity. Admitted to regular nursing floor for pain control. Also started on steroids consult placed to spine surgery. MRI was orderedfor subsequent eval 2. Physical deconditioning/debility secondary to above ? Requested for PT OT eval and social service coordinator to assist with discharge planning 3.Hypertension ? Blood pressure controlled, home medications continued with dose adjustment as needed 4. Depression with anxiety ? Patient is on paroxetine 5. GERD ? Patient is on PPI 6.Class I obesity with BMI of 31 ? Complicating care weight loss advised 7. Hyponatremia ? Secondary to patient being on HCTZ we will continue with monitoring and is continued patient sodium levels continue to follow 8. Leukocytosis ? Etiology not clear we will continue monitor trend 9. Abnormal LFTs ? Ordered gallbladder ultrasound 10. DVT prophylaxis Only SCDs only for now pending evaluation by spine surgeon Time spent in the patient's overall evaluation,decision-making process, review of diagnostic data, adjustment of management, discussion with other providers, nursing nursing and ancillary staff involved in patient's care documentation, 50 Minutes Charges/Coding Visit Charges Inpatient E&M: 11834 Subs Hosp L3 08/29/24 0939 Cosigner Signature (if applicable): CC: ~ Signed [facility]07-18-2025 History and physical note Author Kal Nolan [facility] Note Date/Time August 29, 2024 6:47 am [facility] Medical Records Department [address] [place] [address] H&P Exam - Hospitalist 08/28/242113 MR#: [id number] Acct: [id number] Name: JANIA SPRAGUE Rep #:[id number] : 1940 84 From: Kal Tang DO PCP: Dr. Brandon March MD Status:ADM I NO Location: [facility] [place] [facility] QN830-7 HPI - General General Date of Admission: 08/28/24 Date of Service: 08/28/24 Chief Complaint: Fall x 2 this week. HPI Narrative JANIA SPRAGUE, is a 84 F with a past medical history of essential hypertension; on losartan, carvedilol BID, clonidine patch 0.3 mg weekly (plus oral clonidine prn) and hydrochlorothiazide, hyperlipidemia; on inclisiran sq q. 6 months, obesity; with BMI of 32.3 this admission, history of CVA (2018); with subsequentRight-sided weakness and intermittently unsteady gait, CKD; stage IIIa, history of tubular adenoma of colon, history of multiple thyroid nodules, depression; onparoxetine, fibromyalgia, IBS; of constipation-type on linaclotide daily prn, GERD with history of gastritis and esophagitis; on dexlansoprazole and OA; s/p TKR with chronic back pain causing patient to use a cane to ambulate at baselineand recent Fall on August 23, 2024 after she slipped on a sidewalk and fell onto her buttocks with elbow abrasions (but no head trauma or LOC) with patient then evaluated by EMS - but because she was able to get up and ambulate she did not seek further medical attention at that time with patient then evaluated by Dr. March who noted X-rays yesterday revealing misalignment but with no evidence of acute fracture and she was then started on a combination of naproxen, prednisoneand a muscle relaxer who now presents to [facility] ER complaining of another fall with intractable back pain. Mrs. Sprague states she took her muscle relaxer ~10:00 AM and then around 2:00 PM she felt like her legs were rubbery and she then fell on to her buttocks again without head trauma or LOC with the fall. She states she had been placed in muscles relaxers in 2018 and had a similar experience. Her then tried to help her get up for ~2 hours before he eventually activated EMS. With the lift-assist she was able to ambulate down her steps at home but she then notice severe pain in her tailbone and back after the second fall so she decidedto come in for further evaluation and treatment. She denies pain radiating downinto her legs, saddle anesthesia or loss of bowel/bladder control. She also denies associated fever, chills, nausea, vomiting, diarrhea, abdominal pain, chest pain, palpitations, LE edema, dysuria, hematuria, headache or rash. In the ER she was noted to have a CT scan of the lumbar spine without contrast thatrevealed Compression Fracture of the L2 vertebral body involving the superior end-plate and resulting in ~30% height loss and ~4 mm of fracture fragment retropulsion, new since 03/12/2024 with MRI recommended to confirm acuity complicated by clinical evidence of Ambulatory Dysfunction and Generalized Weakness due to Intractable Back Pain and she was then admitted to the general medical floor under observation status for ongoing care for a stay that is expected to be less than 2 midnights. [facility] Medical History Thyroid nodule History of CVA (cerebrovascular accident) [...] colon cancer Weight loss Cataract Home Medications ?Medication ?Instructions ?Recorded ?Last Taken ?Type loratadine 10 mg tablet 10 mg PO DAILY PRN ALLERGIES 11/30/17 08/14/24 Rx losartan 100 mg tablet 100 mg PO DAILY heart #30 ta bs 11/30/17 08/28/24 Rx paroxetine HCl 20 mg tablet 20 mg PO DAILY mood #30 ta bs 11/30/17 08/28/24 Rx albuterol sulfate 90 mcg/actuation 1 puff inhalation Q 6H PRN SOB 07/25/21 Unknown History aerosol inhaler cholecalciferol (vitamin D3) 25 25 mcg PO DAILY supple ment 07/25/21 08/27/24 History mcg (1,000 unit) capsule (Vitamin D3) hydrochlorothiazide 25 mg tablet 25 mg PO DAILY blood pressure 07/25/21 08/27/24 History multivitamin 1 tab PO DAILY SUPPLEMENT 08/27/24 History dexlansoprazole 60 mg 60 mg PO BID reflux #120 cap s 12/30/21 08/27/24 Rx capsule,biphase delayed release (Dexilant) clonidine 0.3 mg/24 hr weekly 1 patch transdermal QWEE K 07/05/23 Unknown History transdermal patch clonidine HCl 0.1 mg tablet 0.1 mg PO DAILY PRN high b lood 07/05/23 08/14/24 History pressure inclisiran 284 mg/1.5 mL 284 mg subcut [id number] yonathan sterol 07/05/23 Unknown History subcutaneous syringe linaclotide 72 mcg capsule 72 mcg PO DAILY PRN constip ation 07/05/23 06/12/24 History (Linzess) carvedilol 6.25 mg tablet (Coreg) 6.25 mg PO BID #60 t abs 02/25/24 08/28/24 Rx acetaminophen 500 mg tablet 500 mg PO Q6H PRN fever or pain 08/28/24 Unknown History (Acetaminophen Extra Strength) baclofen 10 mg tablet 10 mg PO QHS 08/28/24 History latanoprost 0.005 % eye drops 1 drp ophthalmic (eye) Q HS 08/28/24 08/27/24 History meclizine 25 mg tablet 25 mg PO TID PRN PRN dizzine ss 08/28/24 08/28/24 History naproxen 250 mg tablet 250 mg PO BID 08/28/2408/28 History prednisone 10 mg tablet 10 mg PO steroid 08/28/24 History Allergy/AdvReac Type Severity Reaction Status Date / Time adhesive tape Allergy Other Verified 08/28/24 18:48 valsartan Allergy Rash Verified 08/28/24 18:48 amlodipine AdvReac Other Verified 08/28/24 18:48 enalaprilat (From Vasotec) AdvReac Other Verified 08/28/24 18:48 minoxidil AdvReac Other Verified 08/28/24 18:48 risedronate sodium (From AdvReac Other Verified 08/28/24 18:48 Actonel) Family History Mother Cancer pancreatic Father Colon cancer Grandmother Breast cancer Surgical History History of carpal tunnel surgery of right wrist History of partial knee replacement History of cardiac catheterization History of total knee arthroplasty History of hysterectomy History of cholecystectomy S/P sclerotherapy of varicose veins H/O dilation and curettage History of tonsillectomy H/O adenoidectomy Social History Smoking Status: Never smoker alcohol intake: current alcohol intake frequency: holidays/special occasions only substance use type: does not use caffeine: Yes Type: coffee Number of servings: 1 ROS ROS Narrative Review of Systems: Constitutional: Patient denies fever or chills. Eyes: Patient denies changes in vision or discharge from eyes. ENT: Patient denies runny nose, sore throat or ear pain. Resp: Patient denies SOB or cough. CV: Patient denies chest pain, palpitations, heart racing or LE edema. GI: Patient denies abdominal pain, nausea, vomiting or diarrhea. She has chronic constipation as per HPI. : Patient denies dysuria, hematuria or urinary frequency. MSK: Patient admits to severe back pain and pain emanating from tailbone made worse with activity as per HPI. Skin: Patient admits to skin abrasions on elbows after recent fall as per HPI. She denies rash. Psych: Patient denies symptoms of uncontrolled depression or anxiety. Neuro: Patient denies headache, paresthesias or acute focal neurologic deficits. Allergy: Patient denies lip swelling, tongue swelling or urticaria. Hematology: Patient denies easy bleeding or easy bruisability. Endocrinology: Patient denies polyuria, polydipsia, polyphagia or heat/cold intolerance. 14 point ORS otherwise negative except for positives noted above in HPI. Vital Signs Vital Signs Vital Signs: 08/28/24 18:40 08/28/24 18:48 08/28/24 19:39 Temperature 97.7 F L Temperature Source Oral Pulse Rate 64 69 Respiratory Rate 18 18 Respiratory Effort Normal Respiratory Depth Normal Respiratory Pattern Normal Blood Pressure 195/93 H 147/74 H Blood Pressure Mean 127 98 Pulse Ox 95 97 Oxygen Delivery Method Room Air Room Air Room Air Weight Weight: 171 lb 1.259 oz Body Mass Index (BMI) 32.3 Physical Exam Const alert and oriented x3 Constitutional Narrative: Obese with mild distress noted. General Appearance: cooperative HEENT normocephalic, head/scalp atraumatic, hearing grossly normal bilaterally and moist oral mucous membranes Eyes PERRL, EOMs intact bilaterally and conjunctivae normal Neck no lymphadenopathy, supple and no JVD Resp normal respiratory effort, no retractions, no use of accessory muscles and clearto auscultation bilaterally Cardio regular rate and regular rhythm GI normal to inspection, nondistended, normoactive bowel sounds, soft to palpation,non-tender and non-distended GI Narrative: Obese. Extremity Extremity Narrative: Patient has limited ROM due to pain with abrasions on elbows and intact sensation with no signs of vascular compromise. Skin Skin Narrative: Patient has abrasions on elbows bu no rash. Neuro oriented x3, CN's II-XII intact bilaterally, moves all extremities and no focal motor deficits Sensorium / Orientation: awake, alert, oriented to person, oriented to place andoriented to time Speech: speech normal Psych affect normal Results Medical Records Data Attestation: I reviewed the patient's medical records Lab / Micro Data Attestation: I reviewed the patient's lab results. 08/28/24 21:18 08/28/24 21:18 Imaging Radiology Impression Lumbar Spine CT 08/28/24 19:41 IMPRESSION: 1. Compression fracture of the L2 vertebral body, involving the superior endplate and resulting in 30% height loss and 4 mm of fracture fragment retropulsion. This finding is new since CT on 03/12/2024. MRI could be performed to determine acuity if clinically warranted. 2. Unchanged compression deformity at T12. 3. Multilevel degenerative changes of the lumbar spine, worst at L5-S1. Reading Location: [id number] Assessment & Plan Assessment/Plan (1) Compression fracture of L2: QUALIFIERS: Encounter type: initial encounter Qualified Code(s): S32.020A - Wedge compression fracture of second lumbar vertebra, initial encounter for closed fracture (2) Fall: QUALIFIERS: Encounter type: initial encounter Qualified Code(s): W19.XXXA - Unspecified fall, initial encounter (3) Intractable back pain: (4) Adverse drug reaction: QUALIFIERS: Encounter type: initial encounter Qualified Code(s): T50.905A - Adverse effect of unspecified drugs, medicaments and biological substances, initial encounter (5) Ambulatory dysfunction: (6) Generalized weakness: (7) Leukocytosis: QUALIFIERS: Leukocytosis type: unspecified Qualified Code(s): D72.829 - Elevated white blood cell count, unspecified PLAN: Plan 1. CT scan of the lumbar spine without contrast that revealed Compression Fracture of the L2 vertebral body involving the superior end-plate and resultingin ~30% height loss and ~4 mm of fracture fragment retropulsion, new since 03/12/2024 with MRI recommended to confirm acuity after recent Fall - Admit to general medical floor under observation status. Check MRI of the lumbar spine in AM when this test is available to confirm acute fracture. Start Decadron 6 mg IV TID. Finally, we will consult ortho-spine to see this patient on rounds in the AM for further recommendations with help appreciated in advance. 2. Ambulatory Dysfunction and Generalized Weakness due to Intractable Back Painattributable to #1 - PT/OT and Case Management to consult and treat on rounds inthe AM for further recommendations in the likely case she will need ECF with help appreciated in advance. Give acetaminophen prn for [id number] (level1- 5/10) pain or fever. Give morphine IV prn for severe (level 6-10/10) pain. 3. Leukocytosis of 25K present on admission suspected to be due to leukocyte margination after recent steroid adminitration with no overt signs of infection complicating #1 & #2 - Check UA C&S. 4. Adverse Drug Reaction to muscle relaxer likely contributing to #1 - Avoid muscle relaxers due to poor equilibrium that is easily exacerbated by this classof agents. 5. Recent Fall on August 23, 2024 after she slipped on a sidewalk and fell onto her buttocks with elbow abrasions (but no head trauma or LOC) patient then evaluated by EMS - but because she was able to get up and ambulate she did not seek further medical attention at that time compounding #1 - #3 - Noted. 6. History of CVA (2018); with subsequent Right-sided weakness and intermittently unsteady gait in the setting of known OA; s/p TKR with chronic back pain causing patient to use a cane to ambulate at baseline adding to the medical complexity of #1 - #4 - Noted. 7. Obesity; with BMI of 32.3 this admission adding to the burden of disease outlined from #1 - #5 - Weight loss will be recommended. Check TSH. This complicates her case and may hamper recovery. 8. Essential hypertension; on losartan, carvedilol BID, clonidine patch 0.3 mg weekly (plus oral clonidine prn) and hydrochlorothiazide - Maintain home regimen. 9. Hyperlipidemia; on inclisiran sq q. 6 months - Stable. 10. CKD; stage IIIa - Stable. 11. History of tubular adenoma of colon - Noted. 12. History of multiple thyroid nodules - Noted. 13. Depression; on paroxetine - Resume paroxetine as before. 14. Fibromyalgia - Stable. 15. IBS; of constipation-type on linaclotide daily prn - Continue prn linaclotide as previous. 16. GERD with history of gastritis and esophagitis; on dexlansoprazole - Maintain PPI. 17. DVT prophylaxis - SCD's only at this time in case patient requires orthopedic intervention. Total time: Approximately (but not less than) 85 minutes. Charges/Coding Visit Charges OBSV E&M: 44177 Observ/hosp same date L3 08/29/24 0647 <Electronically signed by Kal Wright DO> Cosigner Signature (if applicable): CC: Dr. Kal Wright DO; Dr. Brandon March MD~ Signed [facility] Work Phone: [phone]) 664-496507-18-2025 History and physical note [facility] Medical Records Department [address] [place] [address] H&P Exam - Hospitalist 08/28/242113 MR#: [id number] Acct: [id number] Name: JANIA SPRAGUE Rep #:[id number] : 1940 84 From: Kal Tang DO PCP: Dr. Brandon March MD Status:ADM I NO Location: [facility] [place] [id number] [facility] - General General Date of Admission: 08/28/24 Date of Service: 08/28/24 Chief Complaint: Fall x 2 this week. HPI Narrative JANIA SPRAGUE, is a 84 F with a past medical history of essential hypertension; on losartan, carvedilol BID, clonidine patch 0.3 mg weekly (plus oral clonidine prn) and hydrochlorothiazide, hyperlipidemia; on inclisiran sq q. 6 months, obesity; with BMI of 32.3 this admission, history of CVA (2018); with subsequentRight-sided weakness and intermittently unsteady gait, CKD; stage IIIa, history of tubular adenoma of colon, history of multiple thyroid nodules, depression; onparoxetine, fibromyalgia, IBS; of constipation-type on linaclotide daily prn, GERD with history of gastritis and esophagitis; on dexlansoprazole and OA; s/p TKR with chronic back pain causing patient to use a cane to ambulate at baselineand recent Fall on August 23, 2024 after she slipped on a sidewalk and fell onto her buttocks with elbow abrasions (but no head trauma or LOC) with patient then evaluated by EMS - but because she was able to get up and ambulate she did not seek further medical attention at that time withpatient then evaluated by Dr. March who noted X-rays yesterday revealing misalignment but with no evidence of acute fracture and she was then started on a combination of naproxen, prednisoneand a muscle relaxer who now presents to [facility] ER complaining of another fall with intractable back pain. Mrs. Sprague states she took her muscle relaxer ~10:00 AM and then around 2:00 PM she felt like herlegs were rubbery and she then fell on to her buttocks again without head trauma or LOC with the fall. She states she had been placed in muscles relaxers in 2018 and had a similar experience. Her then tried to help her get up for ~2 hours before he eventually activated EMS. With the lift-assist she was able to ambulate down her steps at home but she then notice severe pain in her tailbone and back after the second fall so she decidedto come in for further evaluation and treatment. Shedenies pain radiating downinto her legs, saddle anesthesia or loss of bowel/bladder control. She also denies associated fever, chills, nausea, vomiting, diarrhea, abdominal pain, chest pain, palpitations, LE edema, dysuria, hematuria, headache or rash. In the ER she was noted to have a CT scan of the lumbar spine without contrast thatrevealed Compression Fracture of the L2 vertebral body involving the superior end-plate and resulting in ~30% height loss and ~4 mm of fracture fragment retropulsion, new since 03/12/2024 with MRI recommended to confirm acuity complicated by clinical evidence of Ambulatory Dysfunction and Generalized Weakness due to Intractable Back Pain and she was then admitted to the general medical floor under observation status for ongoing care for a stay that is expectedto be less than 2 midnights. [facility] Medical History Thyroid nodule History of CVA (cerebrovascular accident) [...] colon cancer Weight loss Cataract Home Medications ?Medication ?Instructions ?Recorded ?Last Taken ?Type loratadine 10 mg tablet 10 mg PO DAILY PRN ALLERGIES 11/30/17 08/14/24 Rx losartan 100 mg tablet 100 mg PO DAILY heart #30 ta bs 11/30/17 08/28/24 Rx paroxetine HCl 20 mg tablet 20 mg PO DAILY mood #30 ta bs 11/30/17 08/28/24 Rx albuterol sulfate 90 mcg/actuation 1 puff inhalation Q 6H PRN SOB 07/25/21 Unknown History aerosol inhaler cholecalciferol (vitamin D3) 25 25 mcg PO DAILY supple ment 07/25/21 08/27/24 History mcg (1,000 unit) capsule (Vitamin D3) hydrochlorothiazide 25 mg tablet 25 mg PO DAILY blood pressure 07/25/21 08/27/24 History multivitamin 1 tab PO DAILY SUPPLEMENT 08/27/24 History dexlansoprazole 60 mg 60 mg PO BID reflux #120 cap s 12/30/21 08/27/24 Rx capsule,biphase delayed release (Dexilant) clonidine 0.3 mg/24 hr weekly 1 patch transdermal QWEE K 07/05/23 Unknown History transdermal patch clonidine HCl 0.1 mg tablet 0.1 mg PO DAILY PRN high b lood 07/05/23 08/14/24 History pressure inclisiran 284 mg/1.5 mL 284 mg subcut [id number] yonathan sterol 07/05/23 Unknown History subcutaneous syringe linaclotide 72 mcg capsule 72 mcg PO DAILY PRN constip ation 07/05/23 06/12/24 History (Linzess) carvedilol 6.25 mg tablet (Coreg) 6.25 mg PO BID #60 t abs 02/25/24 08/28/24 Rx acetaminophen 500 mg tablet 500 mg PO Q6H PRN fever or pain 08/28/24 Unknown History (Acetaminophen Extra Strength) baclofen 10 mg tablet 10 mg PO QHS 08/28/24 History latanoprost 0.005 % eye drops 1 drp ophthalmic (eye) Q HS 08/28/24 08/27/24 History meclizine 25 mg tablet 25 mg PO TID PRN PRN dizzine ss 08/28/24 08/28/24 History naproxen 250 mg tablet 250 mg PO BID 08/28/2408/28 History prednisone 10 mg tablet 10 mg PO steroid 08/28/24 History Allergy/AdvReac Type Severity Reaction Status Date / Time adhesive tape Allergy Other Verified 08/28/24 18:48 valsartan Allergy Rash Verified 08/28/24 18:48 amlodipine AdvReac Other Verified 08/28/24 18:48 enalaprilat (From Vasotec) AdvReac Other Verified 08/28/24 18:48 minoxidil AdvReac Other Verified 08/28/24 18:48 risedronate sodium (From AdvReac Other Verified 08/28/24 18:48 Actonel) Family History Mother Cancer pancreatic Father Colon cancer Grandmother Breast cancer Surgical History History of carpal tunnel surgery of right wrist History of partial knee replacement History of cardiac catheterization History of total knee arthroplasty History of hysterectomy History of cholecystectomy S/P sclerotherapy of varicose veins H/O dilation and curettage History of tonsillectomy H/O adenoidectomy Social History Smoking Status: Never smoker alcohol intake: current alcohol intake frequency: holidays/special occasions only substance use type: does not use caffeine: Yes Type: coffee Number of servings: 1 ROS ROS Narrative Review of Systems: Constitutional: Patient denies fever or chills. Eyes: Patient denies changes in vision or discharge from eyes. ENT: Patient denies runny nose, sore throat or ear pain. Resp: Patient denies SOB or cough. CV: Patient denies chest pain, palpitations, heart racing or LE edema. GI: Patient denies abdominal pain, nausea, vomiting or diarrhea. She has chronic constipation as per HPI. : Patient denies dysuria, hematuria or urinary frequency. MSK: Patient admits to severe back pain and pain emanating from tailbone made worse with activity as per HPI. Skin: Patient admits to skin abrasions on elbows after recent fall as per HPI. She denies rash. Psych: Patient denies symptoms of uncontrolled depression or anxiety. Neuro: Patient denies headache, paresthesias or acute focal neurologic deficits. Allergy: Patient denies lip swelling, tongue swelling or urticaria. Hematology: Patient denies easy bleeding or easy bruisability. Endocrinology: Patient denies polyuria, polydipsia, polyphagia or heat/cold intolerance. 14 point ORS otherwise negative except for positives noted above in HPI. Vital Signs Vital Signs Vital Signs: 08/28/24 18:40 08/28/24 18:48 08/28/24 19:39 Temperature 97.7 F L Temperature Source Oral Pulse Rate 64 69 Respiratory Rate 18 18 Respiratory Effort Normal Respiratory Depth Normal Respiratory Pattern Normal Blood Pressure 195/93 H 147/74 H Blood Pressure Mean 127 98 Pulse Ox 95 97 Oxygen Delivery Method Room Air Room Air Room Air Weight Weight: 171 lb 1.259 oz Body Mass Index (BMI) 32.3 Physical Exam Const alert and oriented x3 Constitutional Narrative: Obese with mild distress noted. General Appearance: cooperative HEENT normocephalic, head/scalp atraumatic, hearing grossly normal bilaterally and moist oral mucous membranes Eyes PERRL, EOMs intact bilaterally and conjunctivae normal Neck no lymphadenopathy, supple and no JVD Resp normal respiratory effort, no retractions, no use of accessory muscles and clearto auscultation bilaterally Cardio regular rate and regular rhythm GI normal to inspection, nondistended, normoactive bowel sounds, soft to palpation,non-tender and non-distended GI Narrative: Obese. Extremity Extremity Narrative: Patient has limited ROM due to pain with abrasions on elbows and intact sensation with no signs of vascular compromise. Skin Skin Narrative: Patient has abrasions on elbows bu no rash. Neuro oriented x3, CN's II-XII intact bilaterally, moves all extremities and no focal motor deficits Sensorium / Orientation: awake, alert, oriented to person, oriented to place andoriented to time Speech: speech normal Psych affect normal Results Medical Records Data Attestation: I reviewed the patient's medical records Lab / Micro Data Attestation: I reviewed the patient's lab results. 08/28/24 21:18 08/28/24 21:18 Imaging Radiology Impression Lumbar Spine CT 08/28/24 19:41 IMPRESSION: 1. Compression fracture of the L2 vertebral body, involving the superior endplate and resulting in 30% height loss and 4 mm of fracture fragment retropulsion. This finding is new since CT on 03/12/2024. MRI could be performed to determine acuity if clinically warranted. 2. Unchanged compression deformity at T12. 3. Multilevel degenerative changes of the lumbar spine, worst at L5-S1. Reading Location: [facility] Assessment & Plan Assessment/Plan (1) Compression fracture of L2: QUALIFIERS: Encounter type: initial encounter Qualified Code(s): S32.020A - Wedge compression fracture of second lumbar vertebra, initial encounter for closed fracture (2) Fall: QUALIFIERS: Encounter type: initial encounter Qualified Code(s): W19.XXXA - Unspecified fall, initial encounter (3) Intractable back pain: (4) Adverse drug reaction: QUALIFIERS: Encounter type: initial encounter Qualified Code(s): T50.905A - Adverse effect of unspecified drugs, medicaments and biological substances, initial encounter (5) Ambulatory dysfunction: (6) Generalized weakness: (7) Leukocytosis: QUALIFIERS: Leukocytosis type: unspecified Qualified Code(s): D72.829 - Elevated white blood cell count, unspecified PLAN: Plan 1. CT scan of the lumbar spine without contrast that revealed Compression Fracture of the L2 vertebral body involving the superior end-plate and resultingin ~30% height loss and ~4 mm of fracture fragment retropulsion, new since 03/12/2024 with MRI recommended to confirm acuity after recent Fall - Admit to general medical floor under observation status. Check MRI of the lumbar spine in AM when this test is available to confirm acute fracture. Start Decadron 6 mg IV TID. Finally, we will consult ortho-spine to see this patient on rounds in the AM for further recommendations with help appreciated in advance. 2. Ambulatory Dysfunction and Generalized Weakness due to Intractable Back Painattributable to #1 -PT/OT and Case Management to consult and treat on rounds inthe AM for further recommendations in the likely case she will need ECF with help appreciated in advance. Give acetaminophen prn for [id number] (level1-5/10) pain or fever. Give morphine IV prn for severe (level 6-10/10) pain. 3. Leukocytosis of 25K present on admission suspected to be due to leukocyte margination after recent steroid adminitration with no overt signs of infection complicating #1 & #2 - Check UA C&S. 4. Adverse Drug Reaction to muscle relaxer likely contributing to #1 - Avoid muscle relaxers due topoor equilibrium that is easily exacerbated by this classof agents. 5. Recent Fall on August 23, 2024 after she slipped on a sidewalk and fell onto her buttocks with elbow abrasions (but no head trauma or LOC) patient then evaluated by EMS - but because she was able toget up and ambulate she did not seek further medical attention at that time compounding #1 - #3 - Noted. 6. History of CVA (2018); with subsequent Right-sided weakness and intermittently unsteady gait in the setting of known OA; s/p TKR with chronic back pain causing patient to use a cane to ambulate atbaseline adding to the medical complexity of #1 - #4 - Noted. 7. Obesity; with BMI of 32.3 this admission adding to the burden of disease outlined from #1 - #5 -Weight loss will be recommended. Check TSH. This complicates her case and may hamper recovery. 8. Essential hypertension; on losartan, carvedilol BID, clonidine patch 0.3 mg weekly (plus oral clonidine prn) and hydrochlorothiazide - Maintain home regimen. 9. Hyperlipidemia; on inclisiran sq q. 6 months - Stable. 10. CKD; stage IIIa - Stable. 11. History of tubular adenoma of colon - Noted. 12. History of multiple thyroid nodules - Noted. 13. Depression; on paroxetine - Resume paroxetine as before. 14. Fibromyalgia - Stable. 15. IBS; of constipation-type on linaclotide daily prn - Continue prn linaclotide as previous. 16. GERD with history of gastritis and esophagitis; on dexlansoprazole - Maintain PPI. 17. DVT prophylaxis - SCD's only at this time in case patient requires orthopedic intervention. Total time: Approximately (but not less than) 85 minutes. Charges/Coding Visit Charges OBSV E&M: 24960 Observ/hosp same date L3 08/29/24 0647 Cosigner Signature (if applicable): CC: Dr. Kal Wright DO; Dr. Brandon March MD~ Signed [facility]07-18-2025 Discharge summary Author Jared Chandra [facility] Note Date/Time August 28, 2024 10:4 1pm [facility] Medical Records Department [address] [place] [address] Emergency Department Summary 08/28/24 MR#: [id number] Acct: [id number] Name: JANIA SPRAGUE Rep #:[id number] : 1940 84 From: Jared Vallejo PCP: Dr. Brandon March MD Status:ADM I NO Location: [facility] [place] AE753-8 HPI <NAIMA Sequeira - Last Filed: 08/28/24 21:31> HPI - Fall History of Present Illness Chief Complaint: Fall Narrative Narrative: 84-year-old female presents after fall at home. On August 23 she tripped on the sidewalk and fell onto her butt and had abrasions on both elbows. There was no head injury. She was evaluated by EMS and was able to get up and ambulate so did not seek evaluation. Since then she has had gradual increasing soreness in her tailbone. She followed up with Dr. March and had x-rays yesterday showing misalignment but no fracture. He prescribed naproxen, prednisone, and a muscle relaxer. She took a muscle relaxer at 10 AM and then states around 2 PM she felt off and like her legs were rubbery and she fell onto her butt. She states she remembered when she took muscle relaxers in 2018 they made her feel this way. With today's fall she had 3 or 3. Her tried to assist her up for 2 hours but was unable to so they called the paramedics. After the lift assist she was able to ambulate and went up and down a set of stairs at home. She usesa walking stick or cane at baseline. She presents due to worsening tailbone pain after the second fall. She has no pain radiating down the legs. No weakness or numbness or tingling, no saddle anesthesia or bladder or bowel incontinence. No history of back surgery. [facility] <NAIMA Sequeira - Last Filed: 08/28/24 21:31> [facility] Medical History (Updated 06/03/24 @ 15:02 by [...] colon cancer Weight loss Cataract Home Medications ?Medication ?Instructions ?Recorded ?Last Taken ?Type acetaminophen 325 mg tablet 650 mg (2 x 325 mg) PO Q6H PRN PRN 11/30/17 Unknown Rx Mild Pain (0-3/10)/Headache loratadine 10 mg tablet 10 mg PO DAILY PRN ALLERGIES 11/30/17 Unknown Rx losartan 100 mg tablet 100 mg PO DAILY heart #30 ta bs 11/30/17 07/26/21 08:15 Rx paroxetine HCl 20 mg tablet 20 mg PO DAILY mood #30 ta bs 11/30/17 Unknown Rx albuterol sulfate 90 mcg/actuation 1 puff inhalation Q 6H PRN SOB 07/25/21 Unknown History aerosol inhaler cholecalciferol (vitamin D3) 25 25 mcg PO DAILY supple ment 07/25/21 Unknown History mcg (1,000 unit) capsule (Vitamin D3) hydrochlorothiazide 25 mg tablet 25 mg PO DAILY blood pressure 07/25/21 Unknown History multivitamin 1 tab PO DAILY SUPPLEMENT Unknown History dexlansoprazole 60 mg 60 mg PO BID reflux #120 cap s 12/30/21 Unknown Rx capsule,biphase delayed release (Dexilant) clonidine 0.3 mg/24 hr weekly 1 patch transdermal QWEE K 07/05/23 Unknown History transdermal patch clonidine HCl 0.1 mg tablet 0.1 mg PO DAILY PRN high b lood 07/05/23 Unknown History pressure inclisiran 284 mg/1.5 mL 284 mg subcut [id number] yonathan sterol 07/05/23 Unknown History subcutaneous syringe linaclotide 72 mcg capsule 72 mcg PO DAILY PRN constio pation 07/05/23 Unknown History (Linzess) carvedilol 6.25 mg tablet (Coreg) 6.25 mg PO BID #60 t abs 02/25/24 Unknown Rx baclofen 10 mg tablet 10 mg PO QHS 08/28/24 Unknow n History latanoprost 0.005 % eye drops 1 drp ophthalmic (eye) Q HS 08/28/24 Unknown History meclizine 25 mg tablet 25 mg PO TID PRN PRN dizzine ss 08/28/24 Unknown History naproxen 250 mg tablet 250 mg PO BID 08/28/24 Unkno wn History prednisone 10 mg tablet mg PO 08/28/24 Unknown Histo ry Allergy/AdvReac Type Severity Reaction Status Date / Time adhesive tape Allergy Other Verified 08/28/24 18:48 valsartan Allergy Rash Verified 08/28/24 18:48 amlodipine AdvReac Other Verified 08/28/24 18:48 enalaprilat (From Vasotec) AdvReac Other Verified 08/28/24 18:48 minoxidil AdvReac Other Verified 08/28/24 18:48 risedronate sodium (From AdvReac Other Verified 08/28/24 18:48 Actonel) Family History Mother Cancer pancreatic Father Colon cancer Grandmother Breast cancer Surgical History History of carpal tunnel surgery of right wrist History of partial knee replacement History of cardiac catheterization History of total knee arthroplasty History of hysterectomy History of cholecystectomy S/P sclerotherapy of varicose veins H/O dilation and curettage History of tonsillectomy H/O adenoidectomy Social History Smoking Status: Never smoker alcohol intake: current alcohol intake frequency: holidays/special occasions only substance use type: does not use caffeine: Yes Type: coffee Number of servings: 1 EXAM <NAIMA Sequeira - Last Filed: 08/28/24 21:31> Physical Exam Narrative Exam Narrative: CONST: Patient sitting in no acute distress. EYES: Normal inspection. NECK: Normal inspection. RESP: No respiratory distress, CTAB. CVS: Regular rate and rhythm, no murmur, no gallop. ABD: Soft and nontender, no guarding or rebound, nondistended. Back: Normal inspection, tender to palpation over L1-L3 area without step-offs or crepitus. No external signs of trauma. SKIN: Color normal, no rash, warm, dry, intact. EXTREMITIES: Normal appearance, 5/5 strength in bilateral hip flexion and dorsiflexion and plantarflexion. Normal sensation. 2+ DP pulses. NEURO: Alert and answering questions appropriately. PSYCH: Normal affect. Const Vital Signs: 08/28/24 18:40 08/28/24 18:48 08/28/24 19:39 Temperature 97.7 F L Temperature Source Oral Pulse Rate 64 69 Respiratory Rate 18 18 Respiratory Effort Normal Respiratory Depth Normal Respiratory Pattern Normal Blood Pressure 195/93 H 147/74 H Blood Pressure Mean 127 98 Pulse Ox 95 97 Oxygen Delivery Method Room Air Room Air Room Air 08/28/24 21:00 08/28/24 21:17 Temperature 98.7 F Temperature Source Pulse Rate 65 63 Respiratory Rate 18 18 Respiratory Effort Respiratory Depth Respiratory Pattern Blood Pressure 149/79 H Blood Pressure Mean 102 Pulse Ox 98 99 Oxygen Delivery Method Room Air <Dr. Jared Chandra DO - Last Filed: 08/28/24 21:33> Physical Exam Const Vital Signs: 08/28/24 18:40 08/28/24 18:48 08/28/24 19:39 Temperature 97.7 F L Temperature Source Oral Pulse Rate 64 69 Respiratory Rate 18 18 Respiratory Effort Normal Respiratory Depth Normal Respiratory Pattern Normal Blood Pressure 195/93 H 147/74 H Blood Pressure Mean 127 98 Pulse Ox 95 97 Oxygen Delivery Method Room Air Room Air Room Air 08/28/24 21:00 08/28/24 21:17 Temperature 98.7 F Temperature Source Pulse Rate 65 63 Respiratory Rate 18 18 Respiratory Effort Respiratory Depth Respiratory Pattern Blood Pressure 149/79 H Blood Pressure Mean 102 Pulse Ox 98 99 Oxygen Delivery Method Room Air [facility] <NAIMA Sequeira - Last Filed: 08/28/24 21:31> [facility] Narrative Medical decision making narrative: 84-year-old female presents with low back and sacral pain after 2 falls in the last week. First fall was mechanical over a curb and the second fall was after taking the muscle relaxer caused her to feel weak. There was no head injury, both falls were onto her buttocks. She initially was ambulatory after today's fall but is now having significant pain and trouble getting around. She has no external signs of trauma but is tender over the lumbar spine without step-offs. Lower extremity MSPs intact. No red flag symptoms concerning for cauda equina syndrome. Prior x-rays were reviewed which showed no fracture. I ordered a CT scan of the lumbar spine and there is a L2 compression fracture with 4 mm of fracture fragment retropulsion. She is neurologically intact so does not require an emergent MRI tonight. After [place] she states she had no pain relief so she was given IV morphine and Zofran. She is already taking naproxen and prednisone at home from primary care pain, and cannot tolerate muscle relaxers, and since she had no pain relief on [place] I do not feel she can be discharged home as she cannot ambulate. I discussed the case with the hospitalist for admission. Radiography Diagnostic Testing: Clinical Impression(s) from Imaging Studies Lumbar Spine CT 08/28/24 19:41 IMPRESSION: 1. Compression fracture of the L2 vertebral body, involving the superior endplate and resulting in 30% height loss and 4 mm of fracture fragment retropulsion. This finding is new since CT on 03/12/2024. MRI could be performed to determine acuity if clinically warranted. 2. Unchanged compression deformity at T12. 3. Multilevel degenerative changes of the lumbar spine, worst at L5-S1. Reading Location: [facility] <Dr. Jared Chandra DO - Last Filed: 08/28/24 21:33> [facility] Radiography Diagnostic Testing: Clinical Impression(s) from Imaging Studies Lumbar Spine CT 08/28/24 19:41 IMPRESSION: 1. Compression fracture of the L2 vertebral body, involving the superior endplate and resulting in 30% height loss and 4 mm of fracture fragment retropulsion. This finding is new since CT on 03/12/2024. MRI could be performed to determine acuity if clinically warranted. 2. Unchanged compression deformity at T12. 3. Multilevel degenerative changes of the lumbar spine, worst at L5-S1. Reading Location: [id number] Treatment and Re-Evaluation Narrative: I have personally performed a face to face assessment of the patient and have reviewed the ROMULO Note. I performed a substantive portion of the visit including all aspects of the following. My guerrier findings include: History: Patient presents with back pain that began after her 2 falls. Patient states she fell 5 days ago. Patient states she fell again today. Patient complains of pain in her low back. Patient describes the pain as sharp and aching. Patient states her pain is worse with any movement. Patient states nothing makes it better. Patient denies any head injury or loss of consciousness. Patient denies any paresthesias or weakness. Exam: Vital signs are stable except for an elevated blood pressure of 195/93 initially. Patient is afebrile. Patient is in no acute distress. Oral mucosa is pink and moist. Neck is supple. Trachea is midline. There is no JVD. Heart was regular rate and rhythm. Lungs are clear and equal bilaterally. Abdomen is soft. Bowel sounds are normal. There is no tenderness. Musculoskeletal exam reveals tenderness over the lower lumbar spine. There is no bony crepitance or step-off. Range of motion was limited in all motions of the lumbar spine secondary to pain. Strength is 5/5 bilaterally in the lower extremities. There are no sensory deficits noted. Medical Decision Making: Differential diagnosis includes fracture, spondylolisthesis, and muscle strain. CT scan of the lumbar spine will be obtained to assess for fracture and spondylolisthesis. Patient was given a doseof [place] and Zofran here. CT scan of the lumbar spine was obtained. There is acompression fracture of the L2 vertebral body involving the superior endplate and 30% loss of height. There is 4 mm of fracture fragment retropulsion. Thereis also an unchanged compression deformity at T12. There are degenerative changes noted. This was interpreted by the radiologist and was also independently reviewed by myself. Patient was having persistent pain. Because of this, patient will be admitted to the hospital for pain control. Case was discussed with the hospitalist. He will admit the patient to his service. Patient and family understood and were agreeable with the plan. All questions were answered. Discharge Plan Triage Chief Complaint: Fall ED Midlevel Provider: Tia Benavides ED Provider: Jared Chandra Dx/Rx/DC Orders Prescriptions: No Action dexlansoprazole [Dexilant] 60 mg capsule,biphase delayed releas 60 mg PO BID Qty: 120 4RF clonidine 0.3 mg/24 hr patch weekly 1 patch transdermal QWEEK Linzess 72 mcg capsule 72 mcg PO DAILY PRN (Reason: constiopation) inclisiran 284 mg/1.5 mL syringe 284 mg subcut [id number] carvedilol [Coreg] 6.25 mg tablet 6.25 mg PO BID Qty: 60 11RF Rx Instructions: must administer with a meal/food multivitamin Tablet 1 tab PO DAILY acetaminophen [...] PO DAILY PRN (Reason: high blood pressure) Primary Care Provider: Brandon March Chi Referrals: Brandon March Chi, MD [Primary Care Provider] - Print Language: Tongan What to do if you have Problems For any increased pain, shortness of breath, bleeding, nausea or vomiting, chestpain, or any unexpected problems, contact your Primary Care Provider. Call [facility] ([phone]) or report to the closest Emergency Room. Call 911 if necessary. 08/28/24 2241 <Electronically signed by Jared Chandra DO> Cosigner Signature (if applicable): 08/28/242199 <Electronically signed by Tia MCNAMARA> CC: Dr. Brandon March MD ~ Signed [facility] Work Phone: [phone] Discharge summary [facility] Medical Records Department [address] [place] [address] Emergency Department Summary 08/28/24 MR#: [id number] Acct: [id number] Name: JANIA SPRAGUE Rep #:[id number] : 1940 84 From: Jared Vallejo PCP: Dr. Brandon March MD Status:ADM I NO Location: [facility] [id number] HPI HPI - Fall History of Present Illness Chief Complaint: Fall Narrative Narrative: 84-year-old female presents after fall at home. On August 23 she tripped on the sidewalk and fell onto her butt and had abrasions on both elbows. There was no head injury. She was evaluated by EMS and was able to get up and ambulate so did not seek evaluation. Since then she has had gradual increasing soreness in her tailbone. She followed up with Dr. March and had x-rays yesterday showing misalignment but no fracture. He prescribed naproxen, prednisone, and a muscle relaxer. She took a muscle relaxer at 10 AM and then states around 2 PM she felt off and like her legs were rubbery and she fell onto her butt. She states she remembered when she took muscle relaxers in 2018 [address] made her feel this way. With today's fall she had 3 or 3. Her tried to assist her up for 2 hours but was unable to so they called the paramedics. After the lift assist she was able to ambulate and went up and down a set of stairs at home. She usesa walking stick or cane at baseline. She presents due to worsening tailbone pain after the second fall. She has no pain radiating down the legs. No weakness or numbness or tingling, no saddle anesthesia or bladder or bowel incontinence. No history of back surgery. [facility] Medical History (Updated 06/03/24 @ 15:02 by [...] colon cancer Weight loss Cataract Home Medications ?Medication ?Instructions ?Recorded ?Last Taken ?Type acetaminophen 325 mg tablet 650 mg (2 x 325 mg) PO Q6H PRN PRN 11/30/17 Unknown Rx Mild Pain (0-3/10)/Headache loratadine 10 mg tablet 10 mg PO DAILY PRN ALLERGIES 11/30/17 Unknown Rx losartan 100 mg tablet 100 mg PO DAILY heart #30 ta bs 11/30/17 07/26/21 08:15 Rx paroxetine HCl 20 mg tablet 20 mg PO DAILY mood #30 ta bs 11/30/17 Unknown Rx albuterol sulfate 90 mcg/actuation 1 puff inhalation Q 6H PRN SOB 07/25/21 Unknown History aerosol inhaler cholecalciferol (vitamin D3) 25 25 mcg PO DAILY supple ment 07/25/21 Unknown History mcg (1,000 unit) capsule (Vitamin D3) hydrochlorothiazide 25 mg tablet 25 mg PO DAILY blood pressure 07/25/21 Unknown History multivitamin 1 tab PO DAILY SUPPLEMENT Unknown History dexlansoprazole 60 mg 60 mg PO BID reflux #120 cap s 12/30/21 Unknown Rx capsule,biphase delayed release (Dexilant) clonidine 0.3 mg/24 hr weekly 1 patch transdermal QWEE K 07/05/23 Unknown History transdermal patch clonidine HCl 0.1 mg tablet 0.1 mg PO DAILY PRN high b lood 07/05/23 Unknown History pressure inclisiran 284 mg/1.5 mL 284 mg subcut [id number] yonathan sterol 07/05/23 Unknown History subcutaneous syringe linaclotide 72 mcg capsule 72 mcg PO DAILY PRN constio pation 07/05/23 Unknown History (Linzess) carvedilol 6.25 mg tablet (Coreg) 6.25 mg PO BID #60 t abs 02/25/24 Unknown Rx baclofen 10 mg tablet 10 mg PO QHS 08/28/24 Unknow n History latanoprost 0.005 % eye drops 1 drp ophthalmic (eye) Q HS 08/28/24 Unknown History meclizine 25 mg tablet 25 mg PO TID PRN PRN dizzine ss 08/28/24 Unknown History naproxen 250 mg tablet 250 mg PO BID 08/28/24 Unkno wn History prednisone 10 mg tablet mg PO 08/28/24 Unknown Histo ry Allergy/AdvReac Type Severity Reaction Status Date / Time adhesive tape Allergy Other Verified 08/28/24 18:48 valsartan Allergy Rash Verified 08/28/24 18:48 amlodipine AdvReac Other Verified 08/28/24 18:48 enalaprilat (From Vasotec) AdvReac Other Verified 08/28/24 18:48 minoxidil AdvReac Other Verified 08/28/24 18:48 risedronate sodium (From AdvReac Other Verified 08/28/24 18:48 Actonel) Family History Mother Cancer pancreatic Father Colon cancer Grandmother Breast cancer Surgical History History of carpal tunnel surgery of right wrist History of partial knee replacement History of cardiac catheterization History of total knee arthroplasty History of hysterectomy History of cholecystectomy S/P sclerotherapy of varicose veins H/O dilation and curettage History of tonsillectomy H/O adenoidectomy Social History Smoking Status: Never smoker alcohol intake: current alcohol intake frequency: holidays/special occasions only substance use type: does not use caffeine: Yes Type: coffee Number of servings: 1 EXAM Physical Exam Narrative Exam Narrative: CONST: Patient sitting in no acute distress. EYES: Normal inspection. NECK: Normal inspection. RESP: No respiratory distress, CTAB. CVS: Regular rate and rhythm, no murmur, no gallop. ABD: Soft and nontender, no guarding or rebound, nondistended. Back: Normal inspection, tender to palpation over L1-L3 area without step-offs or crepitus. No external signs of trauma. SKIN: Color normal, no rash, warm, dry, intact. EXTREMITIES: Normal appearance, 5/5 strength in bilateral hip flexion and dorsiflexion and plantarflexion. Normal sensation. 2+ DP pulses. NEURO: Alert and answering questions appropriately. PSYCH: Normal affect. Const Vital Signs: 08/28/24 18:40 08/28/24 18:48 08/28/24 19:39 Temperature 97.7 F L Temperature Source Oral Pulse Rate 64 69 Respiratory Rate 18 18 Respiratory Effort Normal Respiratory Depth Normal Respiratory Pattern Normal Blood Pressure 195/93 H 147/74 H Blood Pressure Mean 127 98 Pulse Ox 95 97 Oxygen Delivery Method Room Air Room Air Room Air 08/28/24 21:00 08/28/24 21:17 Temperature 98.7 F Temperature Source Pulse Rate 65 63 Respiratory Rate 18 18 Respiratory Effort Respiratory Depth Respiratory Pattern Blood Pressure 149/79 H Blood Pressure Mean 102 Pulse Ox 98 99 Oxygen Delivery Method Room Air Physical Exam Const Vital Signs: 08/28/24 18:40 08/28/24 18:48 08/28/24 19:39 Temperature 97.7 F L Temperature Source Oral Pulse Rate 64 69 Respiratory Rate 18 18 Respiratory Effort Normal Respiratory Depth Normal Respiratory Pattern Normal Blood Pressure 195/93 H 147/74 H Blood Pressure Mean 127 98 Pulse Ox 95 97 Oxygen Delivery Method Room Air Room Air Room Air 08/28/24 21:00 08/28/24 21:17 Temperature 98.7 F Temperature Source Pulse Rate 65 63 Respiratory Rate 18 18 Respiratory Effort Respiratory Depth Respiratory Pattern Blood Pressure 149/79 H Blood Pressure Mean 102 Pulse Ox 98 99 Oxygen Delivery Method Room Air MDM MDM MDM Narrative Medical decision making narrative: 84-year-old female presents with low back and sacral pain after 2 falls in the last week. First fall was mechanical over a curb and the second fall was after taking the muscle relaxer caused her to feel weak. There was no head injury, both falls were onto her buttocks. She initially was ambulatory after today's fall but is now having significant pain and trouble getting around. She has no external signs of trauma but is tender over the lumbar spine without step-offs. Lower extremity MSPs intact. No red flag symptoms concerning for cauda equina syndrome. Prior x-rays were reviewed which showedno fracture. I ordered a CT scan of the lumbar spine and there is a L2 compression fracture with 4 mm of fracture fragment retropulsion. She is neurologically intact so does not require an emergent MRI tonight. After [place] she states she had no pain relief so she was given IV morphine and Zofran. She is already taking naproxen and prednisone at home from primary care pain, and cannot tolerate muscle relaxers, and since she had no pain relief on [place] I do not feel she can be discharged home as she cannot ambulate. I discussed the case with the hospitalist for admission. Radiography Diagnostic Testing: Clinical Impression(s) from Imaging Studies Lumbar Spine CT 08/28/24 19:41 IMPRESSION: 1. Compression fracture of the L2 vertebral body, involving the superior endplate and resulting in 30% height loss and 4 mm of fracture fragment retropulsion. This finding is new since CT on 03/12/2024. MRI could be performed to determine acuity if clinically warranted. 2. Unchanged compression deformity at T12. 3. Multilevel degenerative changes of the lumbar spine, worst at L5-S1. Reading Location: [id number] Radiography Diagnostic Testing: Clinical Impression(s) from Imaging Studies Lumbar Spine CT 08/28/24 19:41 IMPRESSION: 1. Compression fracture of the L2 vertebral body, involving the superior endplate and resulting in 30% height loss and 4 mm of fracture fragment retropulsion. This finding is new since CT on 03/12/2024. MRI could be performed to determine acuity if clinically warranted. 2. Unchanged compression deformity at T12. 3. Multilevel degenerative changes of the lumbar spine, worst at L5-S1. Reading Location: [facility] Treatment and Re-Evaluation Narrative: I have personally performed a face to face assessment of the patient and have reviewed the ROMULO Note. I performed a substantive portion of the visit including all aspects of the following. My guerrier findings include: History: Patient presents with back pain that began after her 2 falls. Patient states she fell 5 days ago. Patient states she fell again today. Patient complains of pain in her low back. Patient describes the pain as sharp and aching. Patient states her pain is worse with any movement. Patient states nothing makes it better. Patient denies any head injury or loss of consciousness. Patient denies any paresthesias or weakness. Exam: Vital signs are stable except for an elevated blood pressure of 195/93 initially. Patient is afebrile. Patient is in no acute distress. Oral mucosa is pink and moist. Neck is supple. Trachea ismidline. There is no JVD. Heart was regular rate and rhythm. Lungs are clear and equal bilaterally.Abdomen is soft. Bowel sounds are normal. There is no tenderness. Musculoskeletal exam reveals tenderness over the lower lumbar spine. There is no bony crepitance or step-off. Range of motion was limited in all motions of the lumbar spine secondary to pain. Strength is 5/5 bilaterally in the lower extremities. There are no sensory deficits noted. Medical Decision Making: Differential diagnosis includes fracture, spondylolisthesis, and muscle strain. CT scan of the lumbar spine will be obtained to assess for fracture and spondylolisthesis. Patient was given a doseof [place] and Zofran here. CT scan of the lumbar spine was obtained. There is acompression fracture of the L2 vertebral body involving the superior endplate and 30% loss of height.There is 4 mm of fracture fragment retropulsion. Thereis also an unchanged compression deformity atT12. There are degenerative changes noted. This was interpreted by the radiologist and was also independently reviewed by myself. Patient was having persistent pain. Because of this, patient will be admitted to the hospital for pain control. Case was discussed with the hospitalist. He will admit the patient to his service. Patient and family understood and were agreeable with the plan. All questions were answered. Discharge Plan Triage Chief Complaint: Fall ED Midlevel Provider: Tia Benavides ED Provider: Jared Chandra Dx/Rx/DC Orders Prescriptions: No Action dexlansoprazole [Dexilant] 60 mg capsule,biphase delayed releas 60 mg PO BID Qty: 120 4RF clonidine 0.3 mg/24 hr patch weekly 1 patch transdermal QWEEK Linzess 72 mcg capsule 72 mcg PO DAILY PRN (Reason: constiopation) inclisiran 284 mg/1.5 mL syringe 284 mg subcut [id number] carvedilol [Coreg] 6.25 mg tablet 6.25 mg PO BID Qty: 60 11RF Rx Instructions: must administer with a meal/food multivitamin Tablet 1 tab PO DAILY acetaminophen [...] PO DAILY PRN (Reason: high blood pressure) Primary Care Provider: Brandon March Chi Referrals: Brandon March Chi, MD [Primary Care Provider] - Print Language: Tongan What to do if you have Problems For any increased pain, shortness of breath, bleeding, nausea or vomiting, chestpain, or any unexpected problems, contact your Primary Care Provider. Call [facility] ([phone]) or report tothe closest Emergency Room. Call 911 if necessary. 08/28/24 2241 Cosigner Signature (if applicable): 08/28/24 2200 CC: Dr. Brandon March MD ~ Signed [facility]07-17-2025 Radiology Diagnostic study note [facility] Imaging Services [address], [place] [id number] Spine Lumbar without Contrast MR#: [id number] Acct: [id number] Name: JANIA SPRAGUE Rep #: [id number] : 1940 F 84 From: Ana Rosa Ashford MD PCP: Dr. Brandon March MD Status: REG E R Study:Spine Lumbar without Contrast Date of E xam: 08/28/24 Exam# [id number] Ordering Dr: Tia Castro PROCEDURE: SPINE LUMBAR WITHOUT CONTRAST 08/28/2024 REASON FOR EXAM: FALLS, PAIN TECHNIQUE: SPINE LUMBAR WITHOUT CONTRAST Coronal and Sagittal reconstruction series were provided. One or more dose reduction techniques were used (e.g., Automated exposure control, adjustment of the mA and/or kV according to patient size, use of iterative reconstruction technique COMPARISON: Lumbar spine radiographs 08/27/2024, CT chest on 03/12/2024 RADIATION DOSE SUMMARY: CTDlvol: 28.7 mGy DLP: 970 mGycm FINDINGS: There is a fracture through the L2 superior endplate, both anteriorly and posteriorly, with approximately 30% height loss and 4 mm retropulsion of fracture fragments. This finding is new since CT on 03/12/2024. There is unchanged anterior wedging of the T12 vertebral body. Grade 1 anterolisthesis of L5 on S1 measuring 7 mm is unchanged. There are multilevel degenerative changes of the lumbar spine to include endplate osteophyte formation and facet arthrosis, which is worst at L5-S1 where there is moderate osseous neural foraminal narrowing bilaterally, in addition to moderate osseous spinal canal narrowing. Visualized pelvic contents demonstrate aortic atherosclerosis and colonic diverticulosis. Prior hysterectomy. CT/Spine Lumbar without Contrast IMPRESSION: 1. Compression fracture of the L2 vertebral body, involving the superior endplate and resulting in 30% height loss and 4 mm of fracture fragment retropulsion. This finding is new since CT on 03/12/2024. MRI could be performed to determine acuity if clinically warranted. 2. Unchanged compression deformity at T12. 3. Multilevel degenerative changes of the lumbar spine, worst at L5-S1. Reading Location: [facility] CC: Dr. Brandon March MD; NAIMA Sequeira ~ Filament Coil Winder: Signed [facility]07-17-2025 Radiology Diagnostic study note [facility] Imaging Services [address], [place] [id number] Sacrum-Coccyx min 2 Views MR#: [id number] Acct: [id number] Name: JANIA SPRAGUE Rep #: [id number] : 1940 F 84 From: Gege Riggs MD PCP: Dr. Brandon March MD Status: RAÚL SERNA Study:Sacrum-Coccyx min 2 Views Date of Exam: 08/27/24 Exam# [id number] Ordering Dr: Brandon March MD EXAM: XR Lumbosacral Spine, 2 or 3 Views CLINICAL INDICATION: LOW BACK PAIN TECHNIQUE: Frontal and lateral views of the lumbar spine and sacrum. COMPARISON: No relevant prior studies available. FINDINGS: VERTEBRAE: Anterior spondylolisthesis of L5 over S1 by 11 mm. No acute fracture. SACRUM/COCCYX: Moderate degenerative changes of the sacroiliac and hip joints, bilaterally. Mild degenerative changes of the pubic symphysis. No acute fracture. DISC SPACES: No acute findings. No significant narrowing. SOFT TISSUES: Unremarkable. RAD/Sacrum-Coccyx min 2 Views IMPRESSION: Degenerative changes as above. Reading Location: [facility] CC: Dr. Brandon March MD ~ Filament Coil Winder: Signed [facility]07-17-2025 Radiology Diagnostic study note [facility] Imaging Services [address] [place] [address] [id number] L/S Spine Min 4 Views MR#: [id number] Acct: [id number] Name: JANIA SPRAGUE Rep #: [id number] : 1940 F 84 From: Gege Riggs MD PCP: Dr. Brandon March MD Status: REG C DENIA Study:L/S Spine Min 4 Views Date of Exam: 08/27/24 Exam# [id number] Ordering Dr: Brandon March MD EXAM: XR Lumbosacral Spine, 4 or 5 Views CLINICAL INDICATION: LOW BACK PAIN TECHNIQUE: Frontal, lateral and bilateral oblique views of the lumbar spine. COMPARISON: No relevant prior studies available. FINDINGS: VERTEBRAE: Moderate endplate degenerative changes and disc degeneration of visualized thoracic spine to L3. Mild anterior wedging deformity of L2, and T12 in addition to T11 vertebral bodies. Anterior spondylolisthesis ofL5 over S1 by 11 mm without pars defect. This could be further evaluated with MRI. SACRUM/COCCYX: Unremarkable as visualized. No acute fracture. DISC SPACES: See above. SOFT TISSUES: Unremarkable. RAD/L/S Spine Min 4 Views IMPRESSION: 1. Anterior spondylolisthesis of L5 over S1 by 11 mm without pars defect. Thiscould be further evaluated with MRI. 2. Degenerative changes as above. [facility] CC: Dr. Brandon March MD ~ Filament Coil Winder: Signed [facility]04-22-2025 Evaluation note* Diagnosis Onset Date Resolution Status Admit Date Multiple thyroid nodules acute June 03, 2024 7:59am Adverse drug reaction acute Aug 10:03pm Ambulatory dysfunction acute 2024 10:03pm Compression fracture of L2 acute August 28, 2024 10:03pm Fall acute August 28 10:03pm Generalized weakness acute August 28, 2024 10:03pm Intractable back pain acute Aug 10:03pm Leukocytosis acute August 28, 025 10:03pm [facility] Work Phone: [phone] 843-569803-13-2025 Nuclear medicine Diagnostic study note [facility] Imaging Services [address] [place] [address] Thyroid Uptake Single or Mult MR#: [id number] Acct: [id number] Name: JANIA SPRAGUE Rep #: [id number] : 1940 F 83 From: Mohit Galloway MD PCP: Dr. Brandon March MD Status: REG C DENIA Study:Thyroid Uptake Single or Mult Date of Exam: 04/23/24 Exam# [id number] Ordering Dr: Brandon March MD PROCEDURE: THYROID [...] activity in the left lobe. Reading Location: [id number] CC: Dr. Brandon March MD ~ Filament Coil Winder: Signed [facility]12-11-2024 [facility]12-07-2024 Evaluation note* Diagnosis Onset Date Resolution Status Admit Date Cardiac murmur acute January 172023 10:57pm Elevated troponin level not due myocardial infarction acute Decemb er 2023 10:57pm History of esophagitis acute De cem2023 10:57pm History of gastritis acute Dece mber 2023 10:57pm Hypertensive emergency acute De cember 2023 10:57pm Hypokalemia acute January 18, 2024 10:57pm Leukocytosis, unspecified acute January 18, 2024 10:57pm Acid reflux chronic January 18, 2024 10:57pm Intractable nausea and vomiting resolved January 17 10:57pm History of CVA (cerebrovascular accident) inactive Decem christina 2023 10:57pm Hypertensive emergency acute Ja nuary 2024 10:53am Chronic kidney disease, stag e 3a chronic February 24 10:53am Hyperlipidemia chronic February 242024 10:53am [facility] Work Phone: Evaluation note* Diagnosis Onset Date Resolution Status Family history of colon cancer acute Hiatal hernia acute [facility] Work Phone: Evaluation note* Diagnosis Onset Date Resolution Status Esophagitis acute Gastritis acute Tubular adenoma of colon acu te [facility] Work Phone: evaluation note* Diagnosis Onset Date Resolution Status Abdominal pain acute Palpitations acute Essential (primary) hypertension chronic Abdominal pain acute Acid reflux chronic Alternating constipation and diarrhea [facility] Work Phone: Evaluation note* Diagnosis Onset Date Resolution Status Abdominal pain acute Acid reflux chronic Alternating constipation and diarrhea chronic Palpitations acute Essential (primary) hypertension [facility] Work Phone: Evaluation note* Diagnosis Onset Date Resolution Status Abdominal pain acute Acid reflux chronic Alternating constipation and diarrhea chronic Palpitations acute Essential (primary) hypertension chronic Bruising acute Palpitations acute Essential (primary) hypertension chronic Hyperlipidemia [facility] Work Phone: Evaluation note* Diagnosis Onset Date Resolution Status Bruising acute Palpitations acute Essential (primary) hypertension chronic Hyperlipidemia [facility] Work Phone: Evaluation note* Diagnosis Onset Date Resolution Status Primary osteoarthritis, right shoulder acute [facility] Work Phone: Evaluation noteNo assessment information available [facility] Work Phone: Reason for referral (narrative)No [facility] for [facility]: Chief Complaint and [...] PONINS AND January 23, 2024 2:00pm S/P [facility] 01/22February 25, 2024 1 0:53am DRY EYE [...] 10:53am Hyperlipidemia February 25, 2024 1 0:53am Chief Complaint Admit Date THYROID NODULE June 03, 2024 7:5 9am FINE NEEDLE ASPIRATION OF R THYROID NODU LE June 03, 2024 10:53am Low back pain, unspecified August 27 2:46pm ACUTE L2 COMP. FX W/ RETROPULSION AND Ju ly 2024 10:03pm Reason for Visit Admit Date Multiple thyroid nodules June 03 7:59am Adverse drug reaction August 28, 2024 10 :03pm Ambulatory dysfunction August 28, 2024 1 0:03pm Compression fracture of L2 August 28 10:03pm Fall August 28, 2024 10:0 3pm Generalized weakness August 28, 2024 10: 03pm Intractable back pain August 28, 2024 10 :03pm Leukocytosis August 28, 2024 10:0 3pm Chief Complaint Admit Date THYROID NODULE June 03, 2024 7:5 9am FINE NEEDLE ASPIRATION OF R THYROID NODU LE June 03, 2024 10:53am Low back pain, unspecified August 27 2:46pm ACUTE L2 COMP. FX W/ RETROPULSION AND Ju ly 2024 10:03pm ACUTE L2 COMP. FX W/ RETROPULSION AND Ju ly 2024 8:00am ACUTE L2 COMP. FX W/ RETROPULSION AND Ju ly 2024 8:35am Chief Complaint Admit Date THYROID NODULE June 03, 2024 7:5 9am FINE NEEDLE ASPIRATION OF R THYROID NODU LE June 03, 2024 10:53am Low back pain, unspecified August 27 2:46pm ACUTE L2 COMP. FX W/ RETROPULSION AND Ju ly 2024 10:03pm ACUTE L2 COMP. FX W/ RETROPULSION AND Ju ly 2024 8:00am ACUTE L2 COMP. FX W/ RETROPULSION AND Ju ly 2024 8:35am labs,copy results to dr Bauer September 262024 12:35pm Family History No Family History Records Found [...] No June 09, 2018 11:59am Power of Medical Lab Director No June 09 11:59am Advance Directive Response Recorded Date/ Time Living Will No July 25, 2021 12:07pm Power of Medical Lab Director No July 25 12:07pm Advance Directive Response Recorded Date/ Time Living Will No July 25, 2021 11:07am Power of Medical Lab Director No July 25 11:07am Advance Directive Response Recorded Date/ Time Living Will No January 18 12:44am Do you have a Healthcare Power of Medical Lab Director? No January 19, 2024 12:44am Advance Directive Response Recorded Date/ Time Do you have a Healthcare Power of Medical Lab Director? No August 28, 2024 6:45pm Advance Directive Response Recorded Date/ Time Do you have a Healthcare Power of Medical Lab Director? No August 28, 2024 10:31pm Summary Purpose Additional Source Comments Goals (unrecognized [...] Provider, Other Provi wes Active Jeannine Shannon NP-C Attending Provider Active Team Status: Inactive Member [...] End: January 23, 2024 Dr. Kal Wright , Admit Provider Active Start: January 18, 2024 [...] 2024 End: January 23, 2024 Son Garrido PUBLIC RELATIONS OFFICER, PUBLIC RELATIONS OFFICER-C Other Provider Active Start : January 18, 2024 End: January 23, 2024 aJzmyn Cabrera PA, PA Other Provider Active Start: [...] January 19, 2024 Dr. Florencio Camargo , Emergency Provider Activ e Start: January 19, [...] Active Start : January 19, 2024 Dr. eS Ellis MD Other Provider Active Star t: [...] Active Start: January 19, 2024 Son Garrido PUBLIC RELATIONS OFFICER, PUBLIC RELATIONS OFFICER-C Other Provider Active Start : January 19, [...] 19, 2024 Dr. Kal Wright , DO Other Provider Active Start: January 19, 2024 Dr. Macario Allen , Attending Provider Active Start: January 19, 2024 Dr. Macario Allen , DO Other [...] Active Start: January 19, 2024 Son Garrido PUBLIC RELATIONS OFFICER, PUBLIC RELATIONS OFFICER-C Other Provider Active Start : January 19, 2024 Jazmyn Cabrera PA, PA Other Provider Active Start: January 19, 2024 Team Status: Active Member Role Status Dates Dr. Brandon March MD Primary Care Provider Active Start: January 20, 2024 Dr. Florencio Camargo DO Emergency Provider Activ e Start: January 20, 2024 Dr. Kal Wright , DO Admit Provider Active Start: January 20, 2024 Dr. Kal Wright , Other Provider Active Start: January 20, 2024 Dr. Macario Allen DO Other Provider Active S tart: January 20, [...] Active Start: January 20, 2024 Son Garrido PUBLIC RELATIONS OFFICER, PUBLIC RELATIONS OFFICER-C Other Provider Active Start : January 20, 2024 Jazmyn Cabrera PA, PA Other Provider Active Start: January 20, 2024 Team Status: Active Member Role Status Dates Dr. Brandon March MD Primary Care Provider Active Start: January 20, 2024 Dr. Florencio Camargo DO Emergency Provider Activ e Start: January 20, 2024 Dr. Kal Wright DO Admit Provider Active Start: January 20, 2024 Dr. Kal Wright DO Other Provider Active Start: January 20, 2024 Dr. Macario Allen DO Attending Provider Active Start: January 20, 2024 Dr. Macario Allen DO Other Provider Active S tart: January 20, [...] Active Start: January 20, 2024 Son Garrido PUBLIC RELATIONS OFFICER, PUBLIC RELATIONS OFFICER-C Other Provider Active Start : January 20, 2024 Jazmyn Cabrera PA, PA Other Provider Active Start: January 20, 2024 Team Status: Active Member Role Status Dates Dr. Brandon March MD Primary Care Provider Active Start: January 21, 2024 Dr. Florencio Camargo , DO Emergency Provider Activ e Start: January 21, 2024 Dr. Kal Wright , DO Admit Provider Active Start: January 21, 2024 Dr. Kal Wright , Other Provider Active Start: January 21, 2024 [...] Active Start: January 21, 2024 Son Garrido PUBLIC RELATIONS OFFICER, PUBLIC RELATIONS OFFICER-C Other Provider Active Start : January 21, 2024 Jazmyn Cabrera PA, PA Other Provider Active Start: January 21, 2024 Dr. Cal Billings MD Attending Provider Active Start: January 21, 2024 Dr. Cal Billings MD Other Provider Active Start: January 21, 2024 Dr. Macario Allen DO Other Provider Active S tart: January 21, 2024 Team Status: Active Member Role Status Dates Dr. Brandon March MD Primary Care Provider Active Start: January 22, 2024 Dr. Florencio Camargo , DO Emergency Provider Activ e Start: January 22, 2024 Dr. Kal Wright , DO Admit Provider Active Start: January 22, 2024 Dr. Kal Wright , DO Other Provider Active Start: January 22, 2024 [...] Active Start: January 22, 2024 Son Garrido PUBLIC RELATIONS OFFICER, PUBLIC RELATIONS OFFICER-C Other Provider Active Start : January 22, 2024 Jazmyn Cabrera PA, PA Other Provider Active Start: January 22, 2024 Dr. Cal Billings MD Attending Provider Active Start: January 22, 2024 Dr. Cal Billings MD Other Provider Active Start: January 22, 2024 Dr. Macario Allen DO Other Provider Active S tart: January 22, 2024 Team Status: Active Member Role Status Dates Dr. Brandon March MD Primary Care Provider Active Start: January 23, 2024 Dr. Florencio Camargo , Emergency Provider Activ e Start: January 23, 2024 Dr. Kal Wright , DO Admit Provider Active Start: January 23, 2024 Dr. Kal Wright , DO Other Provider Active Start: January 23, 2024 [...] Active Start: January 23, 2024 Son Garrido PUBLIC RELATIONS OFFICER, PUBLIC RELATIONS OFFICER-C Other Provider Active Start : January 23, [...] April 23, 2024 End: April 23, 2024 Team Status: Active Member Role/Relationship Status Dates Dr. Brandon March MD Primary Care Provider Active Team Status: Inactive Member Role/Relationship Status Dates Dr. Brandon March MD Primary Care Provider Active Start: June 03, 2024 End: June 03, 2024 Dr. Brandon March MD Referring Provider Active Start: June 03, 2024 End: June 03, 2024 Dr. Luan Paul MD Attending Provider Active Start: June 03, 2024 End: June 03, 2024 Team Status: Inactive Member Role/Relationship Status Dates Dr. Brandon March MD Primary Care Provider Active Start: June 03, 2024 End: June 03, 2024 Dr. Luan Paul MD Attending Provider Active Start: June 03, 2024 End: June 03, 2024 Dr. Luan Paul MD Referring Provider Active Start: June 03, 2024 End: June 03, 2024 Team Status: Inactive Member Role/Relationship Status Dates Dr. Brandon March MD Primary Care Provider Active Start: June 09, 2024 End: June 09, 2024 Dr. Brandon March MD Attending Provider Active Start: June 09, 2024 End: June 09, 2024 Dr. Brandon March MD Referring Provider Active Start: June 09, 2024 End: June 09, 2024 Team Status: Active Member Role/Relationship Status Dates Dr. Brandon March MD Primary Care Provider Active Start: August 27, 2024 Dr. Brandon March MD Attending Provider Active Start: August 27, 2024 Dr. Brandon March MD Referring Provider Active Start: August 27, 2024 Team Status: Active Member Role/Relationship Status Dates Dr. Brandon March MD Primary Care Provider Active Start: August 28, 2024 Dr. Jared Chandra DO Emergency Provider Active Start: August 28, 2024 Dr. Kal Wright DO Admit Provider Active Start: August 28, 2024 Dr. Kal Wright DO Attending Provider Active Start: August 28, 2024 Team Status: Inactive Member Role/Relationship Status Dates Dr. Brandon March MD Primary Care Provider Active Start: August 28, 2024 End: August 31, 2024 Dr. Jared Chandra DO Emergency Provider Active Start: August 28, 2024 End: August 31, 2024 Dr. Kal Wright DO Admit Provider Active Start: August 28, 2024 End: August 31, 2024 Dr. Kal Wright DO Other Provider Active Start: August 28, 2024 End: August 31, 2024 Dr. Kal Gomez MD Attending Provider Active Start: August 28, 2024 End: August 31, 2024 Dr. Dickson Viveros MD Other Provider Active Star t: August 28, 2024 End: August 31, 2024 Team Status: Active Member Role/Relationship Status Dates Dr. Brandon March MD Primary Care Provider Active Start: August 29, 2024 Dr. Jared Chandra DO Emergency Provider Active Start: August 29, 2024 Dr. Kal Wright DO Admit Provider Active Start: August 29, 2024 Dr. Kal Wright DO Other Provider Active Start: August 29, 2024 Dr. Kal Gomez MD Attending Provider Active Start: August 29, 2024 Dr. Kal Gomez MD Other Provider Active Star t: August 29, 2024 Team Status: Active Member Role/Relationship Status Dates Dr. Brandon March MD Primary Care Provider Active Start: August 30, 2024 Dr. Jared Chandra DO Emergency Provider Active Start: August 30, 2024 Dr. Kal Wright DO Admit Provider Active Start: August 30, 2024 Dr. Kal Wright DO Other Provider Active Start: August 30, 2024 Dr. Kal Gomez MD Attending Provider Active Start: August 30, 2024 Dr. Kal Gomez MD Other Provider Active Star t: August 30, 2024 Dr. Dickson Viveros MD Other Provider Active Star t: August 30, 2024 Team Status: Inactive Member Role/Relationship Status Dates Dr. Brandon March MD Primary Care Provider Active Start: August 27, 2024 End: August 27, 2024 Dr. Brandon March MD Attending Provider Active Start: August 27, 2024 End: August 27, 2024 Dr. Brandon March MD Referring Provider Active Start: August 27, 2024 End: August 27, 2024 Team Status: Inactive Member Role/Relationship Status Dates Dr. Brandon March MD Primary Care Provider Active Start: September 26, 2024 End: September 26, 2024 Dr. Brandon March MD Attending Provider Active Start: September 26, 2024 End: September 26, 2024 Dr. Brandon March MD Referring Provider Active Start: September 26, 2024 End: September 26, 2024 Dr. Marixa Bauer MD Other Provider Active Star t: September 26, 2024 End: September 26, 2024 INFORMATION SOURCE (unrecogn ized section and content) DATE CREATED AUTHOR 10/02/2024 [facility] FOR RECORDS PERTAINING TO PATIENTS WHO ARE [...] BE BASED ON THE PRIMARY CLINICAL RECORDS. [facility] [employer] [facility]. provides no warranty or guarantee of the accuracy or completeness of information in this document.
== END | disposition home or self-care (01) ==
PROVIDERS: PCP Family Medicine Geriatric Medicine; Referring Provider Family Medicine Geriatric Medicine; Visit Provider Family Medicine Geriatric Medicine
DX: R60.0 Localized edema (principal)
CPT/HCPCS: 93971

== ENCOUNTER 2024-11-05 08:30 | Outpatient (RCR) | payer MEDICARE, OTHER, SELFPAY ==
[2024-10-29 08:20] VITALS: BP 196/124; PULSE 86; RESP 16; TEMP 35.9; BMI 29.2
--- NOTE | 2024-10-29 13:38 | PCM.WC.HP ---
History of Present Illness Date of Service: 10/29/24 Chief Complaint: Left whitley traumatic wound since September 25 History of Wound: This is an 84-year-old female with had lives by herself and fell into a cement step and gouged her left whitley back in September 25 she has been using alcohol and neomycin on it. She also has history of clots in her left leg that is affected so it is extra-large. After a month or so she finally went and saw her doctor and they put her on cephalexin and doxycycline and a Rocephin injection and then sent her to the wound center. Leg is an open wound with some erythema and slough [facility] Medical History Thyroid nodule History of CVA (cerebrovascular accident) Personal history of colonic polyps Disorder of vitamin B12 Hyperlipidemia Essential (primary) hypertension Chronic kidney disease, stage 3a 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 Tubular adenoma of colon Esophagitis Gastritis Wears contact lenses Wears glasses Fibromyalgia Depression History of steroid therapy Ambulates with cane Arthritis History of renal disease Anemia High cholesterol Back pain Difficulty swallowing History of hiatal hernia History of IBS History of diverticulitis Hx of mitral valve prolapse Gastric reflux Non-smoker Shortness of breath on exertion Leg cramps History of edema Hypertension Cardiology follow-up encounter History of echocardiogram History of stress test Stroke/cerebrovascular accident Hiatal hernia Family history of colon cancer Weight loss Cataract Home Medications ?Medication ?Instructions ?Recorded ?Last Taken ?Type loratadine 10 mg tablet 10 mg PO DAILY PRN ALLERGIES 11/30/17 08/14/24 Rx losartan 100 mg tablet 100 mg PO DAILY heart #30 tabs 11/30/17 08/28/24 Rx paroxetine HCl 20 mg tablet 20 mg PO DAILY mood #30 tabs 11/30/17 08/28/24 Rx albuterol sulfate 90 mcg/actuation 1 puff inhalation Q6H PRN SOB 07/25/21 Unknown History aerosol inhaler cholecalciferol (vitamin D3) 25 25 mcg PO DAILY supplement 07/25/21 08/27/24 History mcg (1,000 unit) capsule (Vitamin D3) hydrochlorothiazide 25 mg tablet 25 mg PO DAILY blood pressure 07/25/21 08/27/24 History multivitamin 1 tab PO DAILY SUPPLEMENT 12/26/21 08/27/24 History dexlansoprazole 60 mg 60 mg PO BID reflux #120 caps 12/30/21 08/27/24 Rx capsule,biphase delayed release (Dexilant) clonidine 0.3 mg/24 hr weekly 1 patch transdermal QWEEK 07/05/23 Unknown History transdermal patch clonidine HCl 0.1 mg tablet 0.1 mg PO DAILY PRN high blood 07/05/23 08/14/24 History pressure inclisiran 284 mg/1.5 mL 284 mg subcut U1OYLYUG cholesterol 07/05/23 Unknown History subcutaneous syringe linaclotide 72 mcg capsule 72 mcg PO DAILY PRN constipation 07/05/23 06/12/24 History (Linzess) carvedilol 6.25 mg tablet (Coreg) 6.25 mg PO BID #60 tabs 02/25/24 08/28/24 Rx acetaminophen 500 mg tablet 500 mg PO Q6H PRN fever or pain 08/28/24 Unknown History (Acetaminophen Extra Strength) latanoprost 0.005 % eye drops 1 drp ophthalmic (eye) QHS 08/28/24 08/27/24 History meclizine 25 mg tablet 25 mg PO TID PRN PRN dizziness 08/28/24 08/28/24 History naproxen 250 mg tablet 250 mg PO BID 08/28/24 08/28/24 History lidocaine 5 % topical patch 1 patch topical 2200 #30 ea 08/30/24 Unknown Rx oxycodone 5 mg tablet 5 mg PO Q4H PRN PRN Pain Score 08/30/24 Unknown Rx 4-10 5 days #14 tabs apixaban 5 mg tablet (Eliquis) 5 mg PO BID 10/29/24 Unknown History cephalexin 500 mg capsule 500 mg PO BID 10/29/24 Unknown History doxycycline hyclate 100 mg capsule 100 mg PO BID 10/29/24 Unknown History Allergy/AdvReac Type Severity Reaction Status Date / Time adhesive tape Allergy Other Verified 10/29/24 08:42 valsartan Allergy Rash Verified 10/29/24 08:42 amlodipine AdvReac Other Verified 10/29/24 08:42 enalaprilat (From Vasotec) AdvReac Other Verified 10/29/24 08:42 minoxidil AdvReac Other Verified 10/29/24 08:42 risedronate sodium (From AdvReac Other Verified 10/29/24 08:42 Actonel) Family History Mother Cancer pancreatic Father Colon cancer Grandmother Breast cancer Surgical History History of carpal tunnel surgery of right wrist History of partial knee replacement History of cardiac catheterization History of total knee arthroplasty History of hysterectomy History of cholecystectomy S/P sclerotherapy of varicose veins H/O dilation and curettage History of tonsillectomy H/O adenoidectomy Social History Smoking Status: Never smoker alcohol intake: current alcohol intake frequency: holidays/special occasions only substance use type: does not use caffeine: Yes Type: coffee Number of servings: 1 ROS Constitutional Constitutional: Reports systems reviewed and no addt'l complaints, except as documented Eyes Eyes: Reports systems reviewed and no addt'l complaints, except as documented ENT HEENT: Reports systems reviewed and no addt'l complaints, except as documented Cardiovascular Cardiovascular: Reports systems reviewed and no addt'l complaints, except as documented Respiratory/Chest Respiratory/Chest: Reports systems reviewed and no addt'l complaints, except as documented Gastrointestinal Gastrointestinal: Reports systems reviewed and no addt'l complaints, except as documented Genitourinary Genitourinary: Reports systems reviewed and no addt'l complaints, except as documented Musculoskeletal Musculoskeletal: Reports systems reviewed and no addt'l complaints, except as documented Integumentary Integumentary: Reports wounds and other Details: Open wound on left leg from trauma of stepping into a cement step and injuring her left leg a lot of bruising and ecchymosis and some varicosities in that leg. With swelling Neurologic Neurologic: Reports systems reviewed and no addt'l complaints, except as documented Psychiatric Psychiatric: Reports systems reviewed and no addt'l complaints, except as documented Endocrine Endocrinology: Reports systems reviewed and no addt'l complaints, except as documented Hematologic/Lymphatic Hematologic/Lymphatic: Reports systems reviewed and no addt'l complaints, except as documented Allergic/Immunologic Allergic/Immunologic: Reports systems reviewed and no addt'l complaints, except as documented Vital Signs Vital Signs Vital Signs: 10/29/24 08:20 Temperature 96.6 F L Temperature Source Temporal Pulse Rate 86 Respiratory Rate 16 Blood Pressure 196/124 H Blood Pressure Mean 148 Blood Pressure Source Monitor Weight Weight: 154 lb 8.19 oz Body Mass Index (BMI) 29.2 Physical Exam Narrative It was brought to our attention that her blood pressure was elevated she says she only takes 1 pill in the morning and the next 1 at 10 and we will recheck it later and that was with an automatic blood pressure cuff I asked them then to recheck with a manual blood pressure cuff it was still high patient says she is due for her next med we suggested she see her primary care and her magnet placer and try to move up the appointments. From 3 weeks to 1 week Const oriented x3 General Appearance: cooperative Exam Limitations: no limitations HEENT normocephalic Head and Scalp: normal to inspection Face and Sinus: normal facial exam Nose: external nose normal General Ear: hearing grossly impaired External Ear: external ears normal Eyes General Eye: normal appearance of both eyes Neck full ROM General: normal visual inspection Resp normal respiratory effort Effort and Inspection: able to speak in complete sentences Auscultation: clear to auscultation bilaterally Cardio regular rate and regular rhythm Palpation: normal PMI Rate: regular rate Rhythm: regular rhythm GI Palpation: soft Back/Spine Cervical Spine: cervical ROM normal Thoracic Spine / Upper Back: normal to inspection Lumbar Spine / Lower Back: normal to inspection Extremity General Extremity: normal exam except as noted and edema Skin no rashes or lesions noted Skin Narrative: Open wound left whitley area General Skin Exam: erythema Neuro oriented x3 Psych Appearance: grossly normal Speech: normal speech Thought Content: normal thought content Judgement: judgement good Debridement Note Debridement Note Wound debrided: Left lower extremity traumatic wound Anesthesia Used: 5% Lidocaine Gel Depth: Down to and including healthy tissue and in the subcutaneous layer Percentage of wound debrided: 100 Instrument Used: 5mm curette Tissue Removed: Slough and fibrin and devitalized tissue Severity: Fat Layer Exposed Amount of bleeding with debridement: Mild Bleeding Controlled with: Compression and gauze Patient tolerated procedure: Patient tolerated procedure well Post-Debridement Measurements and Additional Note: Post-Debridement Measurements/Treatment CORAL - Nurse 1 - General Ulcer Assessment Start: 10/29/24 08:20 Freq: Status: Active Protocol: CONSUELO Activity Type Activity Date Activity User E-sign Co-sign Detail Recorded Client Recorded Date Recorded By Document 10/29/24 08:20 DL [id number] 10/29/24 08:40 DL 10/29/24 08:20 WC - Today's Visit Information Type of service Initial Visit Height and Weight Height 5 ft 1 in Weight 154 lb 8.19 oz Weight in Pounds 154.5 lbs Weight Measurement Method Stated by Patient Body Mass Index (BMI) 29.2 BMI Classification Overweight Vital Signs Temperature (97.8 F-99.1 F) 96.6 F L Temperature Source Temporal Pulse Rate (60-100) 86 Pulse Location Monitor Respiratory Rate (12-18) 16 Respiratory rate source Observation Blood Pressure (90/60-120/80) 196/124 H Blood Pressure Mean 148 Source Monitor Pain Scale: 0-10 Numeric Is Patient Pain Free? Yes Neuropathy Assessment Feet - Top Side and Bottom <Entered> (a) Communication Assessment Preferred language Japanese Able to Read Yes Able to Write Yes Communication Tools None Right Hearing Abillity Normal Left Hearing Abillity Normal Teaching: Wound Center Discharge Instructions -Person Taught Patient *Welcome to the Wound Center -Person Taught Patient (a) 1 - + WC - Nurse 1 - General Ulcer Measurement Start: 10/29/24 08:20 Freq: Status: Active Protocol: Activity Type Activity Date Activity User E-sign Co-sign Detail Recorded Client Recorded Date Recorded By Document 10/29/24 08:20 DL [id number] 10/29/24 08:40 DL 10/29/24 08:20 Wound Center Nurse 1 #1 L Whitley -Current Size (cm) - Length 5.5 -Current Size (cm) - Width 4.9 -Current Size (cm) - Depth 0.1 -Total Square Cm 26.95 -Photo Taken Yes -Exudate Amt Medium -Exudate Type Serosanguineous -Wound Margin Distinct, Outline Attached -Granulation Amt None Present (0 %) -Necrosis Amt Large (67-100%) -Necrotic Tissue Type Adherent Slough -Structure Exposed N/A -Texture (Aleah-wound Skin Appearance) Localized Edema ,Scarring -Moisture (Aleah-wound Skin Appearance) No Abnormality -Color (Aleah-wound Skin Appearance) Hemosiderin Staining -Temperature (Aleah-wound Skin No Abnormality Appearance) (Pt Warm) -Tenderness on Palpation (Aleah-wound No Skin Appearance) -Ulcer Cleansing Soap and Water -Foul Odor after Cleansing No -Anesthetic Used 4% Lidocaine Solution Right Calf (cm) 39.5 Right Ankle (cm) 23.4 Left Calf (cm) 39 Left Ankle (cm) 23.3 WC - Nurse 2 - General Ulcer CM Notes Start: 10/29/24 08:20 Freq: Status: Active Protocol: Activity Type Activity Date Activity User E-sign Co-sign Detail Recorded Client Recorded Date Recorded By Document 10/29/24 08:53 BM [id number] 10/29/24 09:05 [facility] 10/29/24 08:53 Wound Center Nurse 2 #1 L Whitley -Time 08:54 -Correct Patient Yes -Correct Side, Site, Position Yes -Correct Procedure Yes -Procedure Performed Yes -Type of Procedure Debridement -Clinical Debridement Subcutaneous -Tissue Removed Subcutaneous -Post Debridement (cm) - Length 6 -Post Debridement (cm) - Width 5 -Post Debridement (cm) - Depth 0.2 -Total Square (Post) (cm) 30 -Area of Debridement (cm) - Length 6 -Area of Debridement (cm) - Width 5 -Total Square (Area) (cm) 30 -Tunneling No -Undermining/Tunneling No -Circular Undermining No -Wound/Ulcer Outcome Not Healed -Ulcer Cleansing Rinsed/ Irrigated with Saline -Foul Odor after Cleansing No -Bioengineered Tissue No -Bleeding Controlled with Pressure -Treatment Response Procedure Tolerated Well -Debridement - Subq, 1st 20sq cm Yes -Debridement, SubQ, ea addt'l 20sq cm 1 or part thereof Pain Scale: 0-10 Numeric Is Patient Pain Free? Yes WC - Nurse 3 - General Ulcer D/C NN Start: 10/29/24 08:20 Freq: Status: Active Protocol: Activity Type Activity Date Activity User E-sign Co-sign Detail Recorded Client Recorded Date Recorded By Document 10/29/24 09:07 DL [id number] 10/29/24 09:09 DL Edit Result 10/29/24 09:07 DL (1) [id number] 10/29/24 10:02 DL (1) #1 L Whitley - Wound Comment(s) => Patient's BP remains elevated, manual BP checked with results of 210/120. Esthela Bowden CNP spoke with pt regarding her BP. Pt states she does this has Clonidine in her car just in case. Pt instructed to take this and contact her PCP and move up her appt which she has in two weeks, and her magnet placer also. Pt denies sob or FRANKS at this time. Discharged with her /. 10/29/24 09:07 Wound Care Center Nurse 3 #1 L Whitely -Ulcer Cleansing Rinsed/ Irrigated with Saline -Foul Odor after Cleansing No -Primary Dressing Applied Aquacel Extra, NonAdherent Contact Layer, Silicone Border Foam 6x6 -Aquacel Extra 1 -Silicone Border Foam 6x6 1 -Wound Comment(s) Patient's BP remains elevated, manual BP checked with results of 210/ 120. Esthela Bowden, ANALILIA spoke with pt regarding her BP. Pt states she does this has Clonidine in her car just in case. Pt instructed to take this and contact her PCP and move up her appt which she has in two weeks, and her magnet placer also. Pt denies sob or FRANKS at this time. Discharged with her /. BLE -Tubular Bandage Single Layer -Size of Tubigrip Used Size E -Size E ($) 1 Treatment Response Procedure Tolerated Well Pain Scale: 0-10 Numeric Is Patient Pain Free? Yes WC - Visit Discharge Discharge Condition Stable Ambulatory Status Ambulatory Transportation Private Auto Assessment/Plan Assessment/Plan (1) Fall: CODE(S): W19.XXXA - Unspecified fall, initial encounter QUALIFIERS: Encounter type: initial encounter Qualified Code(s): W19.XXXA - Unspecified fall, initial encounter (2) Compression fracture of L2: CODE(S): S32.020A - Wedge compression fracture of second lumbar vertebra, initial encounter for closed fracture QUALIFIERS: Encounter type: initial encounter Qualified Code(s): S32.020A - Wedge compression fracture of second lumbar vertebra, initial encounter for closed fracture (3) Left leg DVT: CODE(S): I82.402 - Acute embolism and thrombosis of unspecified deep veins of left lower extremity QUALIFIERS: Affected thrombotic vein of extremity: unspecified lower extremity proximal vein Chronicity: acute Qualified Code(s): I82.4Y2 - Acute embolism and thrombosis of unspecified deep veins of left proximal lower extremity (4) 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 This will be daily dressings and follow-up in 1 week Patient is to wear her Tubigrip's double layer to the left leg and right leg. (5) Edema of left lower extremity: CODE(S): R60.0 - Localized edema
--- NOTE | 2024-10-29 14:02 | WC ---
PHOTO- LEFT LEIGH 10/29/24
[2024-11-05 08:46] VITALS: BP 208/109; PULSE 75; RESP 18; TEMP 36; BMI 29.2
--- NOTE | 2024-11-05 10:48 | PCM.WC.PN ---
History of Present Illness Date of Service: 11/05/24 Chief Complaint: Left whitley traumatic wound since September 25 History of Wound: This is an 84-year-old female with had lives by herself and fell into a cement step and gouged her left whitley back in September 25 she has been using alcohol and neomycin on it. She also has history of clots in her left leg that is affected so it is extra-large. After a month or so she finally went and saw her doctor and they put her on cephalexin and doxycycline and a Rocephin injection and then sent her to the wound center. Leg is an open wound with some erythema and slough Progress of Wound: The wound is still quite large but looks improved from last week we will did get approval for EpiFix will apply #1 today no sign of infection surrounding tissue looks good no redness or erythema noted. Subjective Subjective Patient was happy to get the EpiFix. We discussed how to take care of the not getting it wet and she is going to buy a cast cover for her legs so she can take her showers. Objective Data Objective Data No sign of infection will apply epi #1 with placing the veil over top with Steri-Strips and then a padded dressing on top and she can still wear her Tubigrip till we see her next week and she can use the cast care bag for when she wants to shower. Vital Signs: Vital Signs Temp Pulse Resp BP 96.8 F L 75 18 208/109 H 11/05/24 08:46 11/05/24 08:46 11/05/24 08:46 11/05/24 08:46 Weight: 154 lb 8.19 oz Body Mass Index (BMI) 29.2 Lab / Micro Data Attestation: I reviewed the patient's lab results. Physical Exam Narrative It was brought to our attention that her blood pressure was elevated she says she only takes 1 pill in the morning and the next 1 at 10 and we will recheck it later and that was with an automatic blood pressure cuff I asked them then to recheck with a manual blood pressure cuff it was still high patient says she is due for her next med we suggested she see her primary care and her bioinformatics specialist and try to move up the appointments. From 3 weeks to 1 week Const oriented x3 General Appearance: cooperative Exam Limitations: no limitations HEENT normocephalic Head and Scalp: normal to inspection Face and Sinus: normal facial exam Nose: external nose normal General Ear: hearing grossly impaired External Ear: external ears normal Eyes General Eye: normal appearance of both eyes Neck full ROM General: normal visual inspection Resp normal respiratory effort Effort and Inspection: able to speak in complete sentences Auscultation: clear to auscultation bilaterally Cardio regular rate and regular rhythm Palpation: normal PMI Rate: regular rate Rhythm: regular rhythm GI Palpation: soft Back/Spine Cervical Spine: cervical ROM normal Thoracic Spine / Upper Back: normal to inspection Lumbar Spine / Lower Back: normal to inspection Extremity General Extremity: normal exam except as noted and edema Skin no rashes or lesions noted Skin Narrative: Open wound left whitley area General Skin Exam: erythema Neuro oriented x3 Psych Appearance: grossly normal Speech: normal speech Thought Content: normal thought content Judgement: judgement good Debridement Note Debridement Note Wound debrided: Left lower extremity traumatic wound Laterality: Left Type of Debridement: Excisional debridement Anesthesia Used: 5% Lidocaine Gel Depth: Down to and including healthy tissue and in the subcutaneous layer Percentage of wound debrided: 100 Instrument Used: 5mm curette Tissue Removed: Slough and fibrin and devitalized tissue Severity: Fat Layer Exposed Amount of bleeding with debridement: Mild Bleeding Controlled with: Compression and gauze Patient tolerated procedure: Patient tolerated procedure well Post-Debridement Measurements and Additional Note: Post-Debridement Measurements/Treatment WC - Nurse 1 - General Ulcer Assessment Start: 10/29/24 08:20 Freq: Status: Active Protocol: CORAL.LOWDIANET Activity Type Activity Date Activity User E-sign Co-sign Detail Recorded Client Recorded Date Recorded By Document 10/29/24 08:20 DL [id number] 10/29/24 08:40 DL Document 11/05/24 08:46 RB [id number] 11/05/24 08:49 RB 10/29/24 11/05/24 08:20 08:46 - Today's Visit Information Type of service Initial Visit Follow-up Visit (Physician/SUPERVISOR SCREEN PRINTING ) Arrival Mode Ambulatory Transfer Assistance None Patient Identification Verified (Name & Yes ) Patient Requires Transmission-Based No Precautions Height and Weight Height 5 ft 1 in Weight 154 lb 8.19 oz Weight in Pounds 154.5 lbs Weight Measurement Method Stated by Patient Body Mass Index (BMI) 29.2 29.2 BMI Classification Overweight Overweight Vital Signs Temperature (97.8 F-99.1 F) 96.6 F L 96.8 F L Temperature Source Temporal Temporal Pulse Rate (60-100) 86 75 Pulse Location Monitor Monitor Respiratory Rate (12-18) 16 18 Respiratory rate source Observation Observation Blood Pressure (90/60-120/80) 196/124 H 208/109 H Blood Pressure Mean (mm Hg) 148 142 Source Monitor Monitor Position Sitting Blood Pressure Location Left Arm History Since Last Visit- (Skip if this is Patient's initial visit) Have you changed medications since your No last visit? Any new allergies or adverse reactions No Had a fall/change in ADL's that may No increase risk of falls Signs or symptoms of abuse and/or No neglect since last visit Have you been in the hospital since your No last visit? Has dressing in place as prescribed Yes Has compression in place as prescribed Yes Has offloadiing in place as prescribed No Experienced any changes in pain level or No management Pain Scale: 0-10 Numeric Is Patient Pain Free? Yes Yes Neuropathy Assessment Feet - Top Side and Bottom <Entered> (a) Communication Assessment Preferred language Maltese Able to Read Yes Able to Write Yes Communication Tools None Right Hearing Abillity Normal Left Hearing Abillity Normal Teaching: Wound Center Discharge Instructions -Person Taught Patient *Welcome to the Wound Center -Person Taught Patient (a) 1 - + WC - Nurse 1 - General Ulcer Measurement Start: 10/29/24 08:20 Freq: Status: Active Protocol: Activity Type Activity Date Activity User E-sign Co-sign Detail Recorded Client Recorded Date Recorded By Document 10/29/24 08:20 DL [id number] 10/29/24 08:40 DL Document 11/05/24 08:46 RB [id number] 11/05/24 08:49 RB 10/29/24 11/05/24 08:20 08:46 Wound Center Nurse 1 #1 L Whitley -Combined with other wound No -Current Size (cm) - Length 5.5 5 -Current Size (cm) - Width 4.9 4.5 -Current Size (cm) - Depth 0.1 0.1 -Total Square Cm 26.95 22.5 -Photo Taken Yes Yes -Undermining/Tunneling No -Circular Undermining No -Exudate Amt Medium -Exudate Type Serosanguineous -Wound Margin Distinct, Outline Attached -Granulation Amt None Present (0 Medium (34-66%) %) -Granulation Quality [place]lysses -Slough/Fibrin Yes -Necrosis Amt Large (67-100%) Medium (34-66%) -Necrotic Tissue Type Adherent Slough Adherent Slough -Structure Exposed N/A N/A -Texture (Aleah-wound Skin Appearance) Localized Edema Assessed ,Scarring -Moisture (Aleah-wound Skin Appearance) No Abnormality Assessed -Color (Aleah-wound Skin Appearance) Hemosiderin Assessed, Staining Hemosiderin Staining -Temperature (Aleah-wound Skin No Abnormality No Abnormality Appearance) (Pt Warm) (Pt Warm) -Tenderness on Palpation (Aleah-wound No No Skin Appearance) -Ulcer Cleansing Soap and Water Wound Cleanser -Foul Odor after Cleansing No No -Anesthetic Used 4% Lidocaine 5% Lidocaine Solution Gel -Wound Comment(s) pt states will take blood pressure medications when gets home today. pt aware blood pressure is elevated Lower Limb Edema Present Yes Right Calf (cm) 39.5 Right Ankle (cm) 23.4 Left Calf (cm) 39 38.4 Left Ankle (cm) 23.3 25 WC - Nurse 2 - General Ulcer CM Notes Start: 10/29/24 08:20 Freq: Status: Active Protocol: Activity Type Activity Date Activity User E-sign Co-sign Detail Recorded Client Recorded Date Recorded By Document 10/29/24 08:53 [facility] [id number] 10/29/24 09:05 [facility] Document 11/05/24 08:53 [id number] 11/05/24 08:59 DS 10/29/24 11/05/24 08:53 08:53 Wound Center Nurse 2 #1 L Whitley -Time 08:54 08:54 -Correct Patient Yes Yes -Correct Side, Site, Position Yes Yes -Correct Procedure Yes Yes -Procedure Performed Yes Yes -Type of Procedure Debridement Debridement -Clinical Debridement Subcutaneous Subcutaneous -Tissue Removed Subcutaneous Subcutaneous -Post Debridement (cm) - Length 6 5.4 -Post Debridement (cm) - Width 5 3.5 -Post Debridement (cm) - Depth 0.2 0.2 -Total Square (Post) (cm) 30 18.90 -Area of Debridement (cm) - Length 6 5.4 -Area of Debridement (cm) - Width 5 3.5 -Total Square (Area) (cm) 30 18.90 -Tunneling No No -Undermining/Tunneling No No -Circular Undermining No No -Wound/Ulcer Outcome Not Healed Not Healed -Ulcer Cleansing Rinsed/ Rinsed/ Irrigated with Irrigated with Saline Saline -Foul Odor after Cleansing No No -Bioengineered Tissue No No -Type of Bioengineered Tissue Epifix Mesh -Expiration Date 05/13/29 -Product Lot Number [id number] -Percent Used 100 -Lot number of Saline Used [id number] -Bleeding Controlled with Pressure Pressure -Treatment Response Procedure Procedure Tolerated Well Tolerated Well -Debridement - Subq, 1st 20sq cm Yes No -Debridement, SubQ, ea addt'l 20sq cm 1 or part thereof -Apply Skin Sub - 1st 25 sq cm - Legs 1 -Epifix Mesh Application 1-4 (per sq 11 cm) Pain Scale: 0-10 Numeric Is Patient Pain Free? Yes Yes WC - Nurse 3 - General Ulcer D/C NN Start: 10/29/24 08:20 Freq: Status: Active Protocol: Activity Type Activity Date Activity User E-sign Co-sign Detail Recorded Client Recorded Date Recorded By Document 10/29/24 09:07 DL [id number] 10/29/24 09:09 DL Edit Result 10/29/24 09:07 DL (1) [id number] 10/29/24 10:02 DL Document 11/05/24 09:25 CP [id number] 11/05/24 09:26 CP (1) #1 L Whitley - Wound Comment(s) => Patient's BP remains elevated, manual BP checked with results of 210/120. Esthela Bowden CNP spoke with pt regarding her BP. Pt states she does this has Clonidine in her car just in case. Pt instructed to take this and contact her PCP and move up her appt which she has in two weeks, and her bioinformatics specialist also. Pt denies sob or FRANKS at this time. Discharged with her /. 10/29/24 11/05/24 09:07 09:25 Wound Care Center Nurse 3 #1 L Whitley -Ulcer Cleansing Rinsed/ Irrigated with Saline -Foul Odor after Cleansing No -Primary Dressing Applied Aquacel Extra, Silicone Border NonAdherent Foam 6x6 Contact Layer, Silicone Border Foam 6x6 -Aquacel Extra 1 -Silicone Border Foam 6x6 1 1 -Wound Comment(s) Patient's BP remains elevated, manual BP checked with results of 210/ 120. Esthela Bowden CNP spoke with pt regarding her BP. Pt states she does this has Clonidine in her car just in case. Pt instructed to take this and contact her PCP and move up her appt which she has in two weeks, and her bioinformatics specialist also. Pt denies sob or FRANKS at this time. Discharged with her /. BLE -Tubular Bandage Single Layer Single Layer -Size of Tubigrip Used Size E Size E -Size E ($) 1 1 Treatment Response Procedure Tolerated Well Pain Scale: 0-10 Numeric Is Patient Pain Free? Yes Yes WC - Visit Discharge Discharge Condition Stable Stable Ambulatory Status Ambulatory Ambulatory, Walker Transportation Private Auto Private Auto Clinical Summary of Care Provided Yes Assessment/Plan Assessment/Plan (1) Fall: CODE(S): W19.XXXA - Unspecified fall, initial encounter QUALIFIERS: Encounter type: initial encounter Qualified Code(s): W19.XXXA - Unspecified fall, initial encounter (2) Compression fracture of L2: CODE(S): S32.020A - Wedge compression fracture of second lumbar vertebra, initial encounter for closed fracture QUALIFIERS: Encounter type: initial encounter Qualified Code(s): S32.020A - Wedge compression fracture of second lumbar vertebra, initial encounter for closed fracture (3) Left leg DVT: CODE(S): I82.402 - Acute embolism and thrombosis of unspecified deep veins of left lower extremity QUALIFIERS: Affected thrombotic vein of extremity: unspecified lower extremity proximal vein Chronicity: acute Qualified Code(s): I82.4Y2 - Acute embolism and thrombosis of unspecified deep veins of left proximal lower extremity (4) 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 (5) Edema of left lower extremity: CODE(S): R60.0 - Localized edema
--- NOTE | 2024-11-06 14:23 | WC ---
PHOTO-LLE 11/05/24
== END 2024-11-11 23:59 | disposition home or self-care (01) ==
LOC: WC 08:30
PROVIDERS: PCP Family Medicine Geriatric Medicine; Referring Provider Family Medicine Geriatric Medicine; Visit Provider Nurse Practitioner
DX: S32.020A Wedge compression fracture of second lumbar vertebra, initial encounter for closed fracture (principal); L97.922 Non-pressure chronic ulcer of unspecified part of left lower leg with fat layer exposed; I82.4Y2 Acute embolism and thrombosis of unspecified deep veins of left proximal lower extremity; N18.31 Chronic kidney disease, stage 3a; K21.00 Gastro-esophageal reflux disease with esophagitis, without bleeding; I12.9 Hypertensive chronic kidney disease with stage 1 through stage 4 chronic kidney disease, or unspecified chronic kidney disease; E78.00 Pure hypercholesterolemia, unspecified; M79.7 Fibromyalgia; Z90.710 Acquired absence of both cervix and uterus; Z79.1 Long term (current) use of non-steroidal anti-inflammatories (NSAID); Z79.01 Long term (current) use of anticoagulants; Z79.83 Long term (current) use of bisphosphonates; R60.0 Localized edema; W19.XXXA Unspecified fall, initial encounter; Z86.73 Personal history of transient ischemic attack (TIA), and cerebral infarction without residual deficits; Z80.0 Family history of malignant neoplasm of digestive organs; Z90.49 Acquired absence of other specified parts of digestive tract
CPT/HCPCS: 11042; 11045; 15271; 99213; Q4186; G0463

== ENCOUNTER → 2024-11-19 | Outpatient (CLI) | payer MEDICARE, OTHER, SELFPAY ==
--- NOTE | 2024-11-19 12:49 | VDLE_ITS ---
Reason For Study Reason For Study: RLE Swelling RIGHT LEFT CFV is compressible, spontaneous, phasic, competent CFV is compressible, spontaneous, phasic, competent, and demonstrates normal augmentation. and demonstrates normal augmentation. FV is compressible, spontaneous, phasic, competent and demonstrates normal augmentation. POP V is compressible, spontaneous, phasic, competent and demonstrates normal augmentation. T/P Trunk is compressible. PTV is compressible. RT PerV is compressible. Unable to visualize Rt GSV. Pt Presents w/ HX of Rt GSV Ablation. Procedure This is a venous duplex using B-mode, color flow and spectral Doppler. Exam performed in department. The exam was diagnostic. VL/Venous Duplex US, Unilateral Interpretation Summary Deep veins of the right lower extremity are patent and compressible segmentally . There is no evidence of right lower extremity deep vein thrombosis. Ordering Physician: Lory Quintanilla Referring Physician: Brandon March Chi Performed By: Darrian Mcnamara RVT
--- NOTE | 2024-11-19 12:49 | VDLE_ITS ---
Reason For Study Reason For Study: RLE Swelling RIGHT LEFT CFV is compressible, spontaneous, phasic, competent CFV is compressible, spontaneous, phasic, competent, and demonstrates normal augmentation. and demonstrates normal augmentation. FV is compressible, spontaneous, phasic, competent and demonstrates normal augmentation. POP V is compressible, spontaneous, phasic, competent and demonstrates normal augmentation. T/P Trunk is compressible. PTV is compressible. RT PerV is compressible. Unable to visualize Rt GSV. Pt Presents w/ HX of Rt GSV Ablation. Procedure This is a venous duplex using B-mode, color flow and spectral Doppler. Exam performed in department. The exam was diagnostic. VL/Venous Duplex US, Unilateral Interpretation Summary Deep veins of the right lower extremity are patent and compressible segmentally . There is no evidence of right lower extremity deep vein thrombosis. Ordering Physician: Lory Quintanilla Referring Physician: Brandon March Chi Performed By: Darrian Mcnamara RVT
== END | disposition home or self-care (01) ==
LOC: CVS 12:49
PROVIDERS: PCP Family Medicine Geriatric Medicine; Referring Provider Nurse Practitioner Gerontology; Visit Provider Nurse Practitioner Gerontology
DX: R60.0 Localized edema (principal); Z86.718 Personal history of other venous thrombosis and embolism
CPT/HCPCS: 93971

== ENCOUNTER → 2024-12-08 | Outpatient (CLI) | payer MEDICARE, OTHER, SELFPAY ==
[2024-12-08 14:11] LABS: Hematocrit 41.4 % (37-47); Hemoglobin 13.9 g/dL (12.0-15.0); Immature Granulocytes Count 0.030 X10^3/uL (0.0-0.0); Mean Corp Hgb Conc 33.6 g/dL (32-36); Mean Corpuscular Volume 92.8 fL (81-99); Mean Platelet Vol. 10.2 fl (6.2-12.0); NRBC Flagged by Analyzer 0 % (0-5); Platelet Count 302 K/mm3 (150-450); RBC Distribution Width CV 12.9 % (11.6-14.6); RBC Distribution Width SD 43.9 fl (35.1-43.9); Red Blood Count 4.46 M/mm3 (4.2-5.4); White Blood Count 10.6 K/mm3 (4.4-11.0)
[2024-12-08 15:11] LABS: Vitamin D,25 Hydroxy 25.2 ng/mL (30-100)
== END | disposition home or self-care (01) ==
LOC: POLAB3 13:37
PROVIDERS: PCP Family Medicine Geriatric Medicine; Visit Provider Family Medicine Geriatric Medicine
DX: I10 Essential (primary) hypertension (principal); E55.9 Vitamin D deficiency, unspecified
CPT/HCPCS: 36415; 82306; 84443; 85025

== ENCOUNTER 2024-12-10 11:15 | Outpatient (RCR) | payer MEDICARE, OTHER, SELFPAY ==
[2024-11-12 08:30] VITALS: BP 211/110; PULSE 80; RESP 16; TEMP 36.6
--- NOTE | 2024-11-12 12:18 | PCM.WC.PN ---
History of Present Illness Date of Service: 11/12/24 Chief Complaint: Left whitley traumatic wound since September 25 History of Wound: This is an 84-year-old female with had lives by herself and fell into a cement step and gouged her left whitley back in September 25 she has been using alcohol and neomycin on it. She also has history of clots in her left leg that is affected so it is extra-large. After a month or so she finally went and saw her doctor and they put her on cephalexin and doxycycline and a Rocephin injection and then sent her to the wound center. Leg is an open wound with some erythema and slough Progress of Wound: She has had 1 EpiFix to the leg and it looks wonderful even after that with depth and the perimeter is healing very well. She has got new cell growth in the base of the wound upon debridement and everything looks quite well-healed she has no pain and she says she feels like it is getting much better. Subjective Subjective Patient is pleased with outcomes Objective Data Objective Data Measurements are smaller and more shallow Vital Signs: Vital Signs Temp Pulse Resp BP 97.8 F 80 16 211/110 H 11/12/24 08:30 11/12/24 08:30 11/12/24 08:30 11/12/24 08:30 Lab / Micro Data Attestation: I reviewed the patient's lab results. Physical Exam Narrative It was brought to our attention that her blood pressure was elevated she says she only takes 1 pill in the morning and the next 1 at 10 and we will recheck it later and that was with an automatic blood pressure cuff I asked them then to recheck with a manual blood pressure cuff it was still high patient says she is due for her next med we suggested she see her primary care and her insurance defense paralegal and try to move up the appointments. From 3 weeks to 1 week Const oriented x3 General Appearance: cooperative Exam Limitations: no limitations HEENT normocephalic Head and Scalp: normal to inspection Face and Sinus: normal facial exam Nose: external nose normal General Ear: hearing grossly impaired External Ear: external ears normal Eyes General Eye: normal appearance of both eyes Neck full ROM General: normal visual inspection Resp normal respiratory effort Effort and Inspection: able to speak in complete sentences Auscultation: clear to auscultation bilaterally Cardio regular rate and regular rhythm Palpation: normal PMI Rate: regular rate Rhythm: regular rhythm GI Palpation: soft Back/Spine Cervical Spine: cervical ROM normal Thoracic Spine / Upper Back: normal to inspection Lumbar Spine / Lower Back: normal to inspection Extremity General Extremity: normal exam except as noted and edema Skin no rashes or lesions noted Skin Narrative: Open wound left whitley area General Skin Exam: erythema Neuro oriented x3 Psych Appearance: grossly normal Speech: normal speech Thought Content: normal thought content Judgement: judgement good Debridement Note Debridement Note Post-Debridement Measurements and Additional Note: Post-Debridement Measurements/Treatment - Nurse 1 - General Ulcer Assessment Start: 11/12/24 08:27 Freq: Status: Active Protocol: CONSUELO Activity Type Activity Date Activity User E-sign Co-sign Detail Recorded Client Recorded Date Recorded By Document 11/12/24 08:30 CP [id number] 11/12/24 08:34 CP 11/12/24 08:30 WC - Today's Visit Information Type of service Follow-up Visit (Physician/ASSISTANT MANAGER ) Arrival Mode Ambulatory, Walker Patient Identification Verified (Name & Yes ) Vital Signs Temperature (97.8 F-99.1 F) 97.8 F Temperature Source Temporal Pulse Rate (60-100) 80 Pulse Location Monitor Respiratory Rate (12-18) 16 Respiratory rate source Observation Blood Pressure (90/60-120/80) 211/110 H Blood Pressure Mean (mm Hg) 143 Source Manual Position Sitting Blood Pressure Location Left Arm History Since Last Visit- (Skip if this is Patient's initial visit) Have you changed medications since your No last visit? Any new allergies or adverse reactions No Had a fall/change in ADL's that may No increase risk of falls Signs or symptoms of abuse and/or No neglect since last visit Have you been in the hospital since your No last visit? Has dressing in place as prescribed Yes Has compression in place as prescribed Yes Has offloadiing in place as prescribed N/A Experienced any changes in pain level or No management Pain Scale: 0-10 Numeric Is Patient Pain Free? Yes - Nurse 1 - General Ulcer Measurement Start: 11/12/24 08:27 Freq: Status: Active Protocol: Activity Type Activity Date Activity User E-sign Co-sign Detail Recorded Client Recorded Date Recorded By Document 11/12/24 08:30 CP [id number] 11/12/24 08:34 CP 11/12/24 08:30 Wound Center Nurse 1 #1 L Whitley -Combined with other wound No -Current Size (cm) - Length 5 -Current Size (cm) - Width 4.2 -Current Size (cm) - Depth 0.1 -Total Square Cm 21.0 -Photo Taken Yes -Tunneling No -Undermining/Tunneling No -Circular Undermining No -Exudate Amt Medium -Exudate Type Serosanguineous -Wound Margin Distinct, Outline Attached -Granulation Amt Medium (34-66%) -Slough/Fibrin Yes -Necrosis Amt Medium (34-66%) -Necrotic Tissue Type Adherent Slough -Structure Exposed N/A -Texture (Aleah-wound Skin Appearance) Assessed, Scarring -Moisture (Aleah-wound Skin Appearance) Maceration -Color (Aleah-wound Skin Appearance) Assessed -Temperature (Aleah-wound Skin No Abnormality Appearance) (Pt Warm) -Tenderness on Palpation (Aleah-wound No Skin Appearance) -Ulcer Cleansing Wound Cleanser -Foul Odor after Cleansing No -Anesthetic Used 5% Lidocaine Gel WC - Nurse 2 - General Ulcer CM Notes Start: 11/12/24 08:27 Freq: Status: Active Protocol: Activity Type Activity Date Activity User E-sign Co-sign Detail Recorded Client Recorded Date Recorded By Document 11/12/24 08:41 DS [id number] 11/12/24 08:48 DS 11/12/24 08:41 Wound Center Nurse 2 -Time 08:41 -Correct Patient Yes -Correct Side, Site, Position Yes -Correct Procedure Yes -Procedure Performed Yes -Type of Procedure Debridement -Clinical Debridement Subcutaneous -Tissue Removed Subcutaneous -Post Debridement (cm) - Length 5.0 -Post Debridement (cm) - Width 2.8 -Post Debridement (cm) - Depth 0.1 -Total Square (Post) (cm) 14.00 -Area of Debridement (cm) - Length 5.0 -Area of Debridement (cm) - Width 2.8 -Total Square (Area) (cm) 14.00 -Tunneling No -Undermining/Tunneling No -Circular Undermining No -Wound/Ulcer Outcome Not Healed -Ulcer Cleansing Rinsed/ Irrigated with Saline -Foul Odor after Cleansing No -Bioengineered Tissue Yes -Type of Bioengineered Tissue Epifix Mesh -Expiration Date 05/16/29 -Product Lot Number [id number] -Percent Used 100 -Lot number of Saline Used [id number] -Bleeding Controlled with Pressure -Treatment Response Procedure Tolerated Well -Debridement - Subq, 1st 20sq cm No -Apply Skin Sub - 1st 25 sq cm - Legs 1 -Epifix Mesh Application 1-4 (per sq 11 cm) Pain Scale: 0-10 Numeric Is Patient Pain Free? Yes - Nurse 3 - General Ulcer D/C NN Start: 11/12/24 08:27 Freq: Status: Active Protocol: Activity Type Activity Date Activity User E-sign Co-sign Detail Recorded Client Recorded Date Recorded By Document 11/12/24 08:59 CP [id number] 11/12/24 08:59 CP 11/12/24 08:59 Wound Care Center Nurse 3 #1 L Whitley -Primary Dressing Applied Silicone Border Foam 6x6 -Silicone Border Foam 6x6 1 LLE -Tubular Bandage Single Layer -Size of Tubigrip Used Size E -Size E ($) 1 Pain Scale: 0-10 Numeric Is Patient Pain Free? Yes WC - Visit Discharge Discharge Condition Stable Ambulatory Status Ambulatory Transportation Private Auto Clinical Summary of Care Provided Yes Assessment/Plan Assessment/Plan (1) Fall: CODE(S): W19.XXXA - Unspecified fall, initial encounter QUALIFIERS: Encounter type: initial encounter Qualified Code(s): W19.XXXA - Unspecified fall, initial encounter (2) Compression fracture of L2: CODE(S): S32.020A - Wedge compression fracture of second lumbar vertebra, initial encounter for closed fracture QUALIFIERS: Encounter type: initial encounter Qualified Code(s): S32.020A - Wedge compression fracture of second lumbar vertebra, initial encounter for closed fracture (3) Left leg DVT: CODE(S): I82.402 - Acute embolism and thrombosis of unspecified deep veins of left lower extremity QUALIFIERS: Affected thrombotic vein of extremity: unspecified lower extremity proximal vein Chronicity: acute Qualified Code(s): I82.4Y2 - Acute embolism and thrombosis of unspecified deep veins of left proximal lower extremity (4) 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 (5) Edema of left lower extremity: CODE(S): R60.0 - Localized edema
--- NOTE | 2024-11-13 09:15 | WC ---
PHOTO-CARLEY LEIGH 11/12/24
[2024-11-19 08:43] VITALS: PULSE 65; RESP 14; TEMP 25
--- NOTE | 2024-11-19 11:29 | PCM.WC.PN ---
History of Present Illness Date of Service: 11/19/24 Chief Complaint: Left whitley traumatic wound since September 25 History of Wound: This is an 84-year-old female with had lives by herself and fell into a cement step and gouged her left whitley back in September 25 she has been using alcohol and neomycin on it. She also has history of clots in her left leg that is affected so it is extra-large. After a month or so she finally went and saw her doctor and they put her on cephalexin and doxycycline and a Rocephin injection and then sent her to the wound center. Leg is an open wound with some erythema and slough Progress of Wound: She has had 2 EpiFix to the leg and it looks wonderful even after that with depth and the perimeter is healing very well. She has got new cell growth in the base of the wound upon debridement and everything looks quite well-healed she has no pain and she says she feels like it is getting much better. We will continue epi #3 to her left lower leg whitley Subjective Subjective Patient is very happy with outcomes Objective Data Objective Data No sign of infection flatter new skin islands growing smoother much smaller and in size. Vital Signs: Vital Signs Temp Pulse Resp BP 77 F L 65 14 211/110 H 11/19/24 08:43 11/19/24 08:43 11/19/24 08:43 11/12/24 08:30 Physical Exam Narrative It was brought to our attention that her blood pressure was elevated she says she only takes 1 pill in the morning and the next 1 at 10 and we will recheck it later and that was with an automatic blood pressure cuff I asked them then to recheck with a manual blood pressure cuff it was still high patient says she is due for her next med we suggested she see her primary care and her sales operations analyst and try to move up the appointments. From 3 weeks to 1 week Const oriented x3 General Appearance: cooperative Exam Limitations: no limitations HEENT normocephalic Head and Scalp: normal to inspection Face and Sinus: normal facial exam Nose: external nose normal General Ear: hearing grossly impaired External Ear: external ears normal Eyes General Eye: normal appearance of both eyes Neck full ROM General: normal visual inspection Resp normal respiratory effort Effort and Inspection: able to speak in complete sentences Auscultation: clear to auscultation bilaterally Cardio regular rate and regular rhythm Palpation: normal PMI Rate: regular rate Rhythm: regular rhythm GI Palpation: soft Back/Spine Cervical Spine: cervical ROM normal Thoracic Spine / Upper Back: normal to inspection Lumbar Spine / Lower Back: normal to inspection Extremity General Extremity: normal exam except as noted and edema Skin no rashes or lesions noted Skin Narrative: Open wound left whitley area General Skin Exam: erythema Neuro oriented x3 Psych Appearance: grossly normal Speech: normal speech Thought Content: normal thought content Judgement: judgement good Debridement Note Debridement Note No debridement was completed: No debridement was completed today Post-Debridement Measurements and Additional Note: Post-Debridement Measurements/Treatment - Nurse 1 - General Ulcer Assessment Start: 11/12/24 08:27 Freq: Status: Active Protocol: [place]ee[place] Activity Type Activity Date Activity User E-sign Co-sign Detail Recorded Client Recorded Date Recorded By Document 11/12/24 08:30 CP [id number] 11/12/24 08:34 CP Document 11/19/24 08:43 ML [id number] 11/19/24 08:53 ML 11/12/24 11/19/24 08:30 08:43 - Today's Visit Information Type of service Follow-up Visit Follow-up Visit (Physician/MANUFACTURING PROJECT MANAGER (Physician/MANUFACTURING PROJECT MANAGER ) ) Arrival Mode Ambulatory, Ambulatory, Walker Walker Transfer Assistance None Patient Identification Verified (Name & Yes Yes ) Patient Requires Transmission-Based No Precautions Vital Signs Temperature (97.8 F-99.1 F) 97.8 F 77 F L Temperature Source Temporal Temporal Pulse Rate (60-100) 80 65 Pulse Location Monitor Monitor Respiratory Rate (12-18) 16 14 Respiratory rate source Observation Monitor Blood Pressure (90/60-120/80) 211/110 H Blood Pressure Mean (mm Hg) 143 Source Manual Position Sitting Blood Pressure Location Left Arm History Since Last Visit- (Skip if this is Patient's initial visit) Have you changed medications since your No No last visit? Any new allergies or adverse reactions No No Had a fall/change in ADL's that may No No increase risk of falls Signs or symptoms of abuse and/or No No neglect since last visit Have you been in the hospital since your No last visit? Has dressing in place as prescribed Yes Yes Has compression in place as prescribed Yes N/A Has offloadiing in place as prescribed N/A N/A Experienced any changes in pain level or No No management Pain Scale: 0-10 Numeric Is Patient Pain Free? Yes Yes WC - Nurse 1 - General Ulcer Measurement Start: 11/12/24 08:27 Freq: Status: Active Protocol: Activity Type Activity Date Activity User E-sign Co-sign Detail Recorded Client Recorded Date Recorded By Document 11/12/24 08:30 CP [id number] 11/12/24 08:34 CP Document 11/19/24 08:43 ML [id number] 11/19/24 08:53 ML 11/12/24 11/19/24 08:30 08:43 Wound Center Nurse 1 #1 L Whitley -Combined with other wound No -Current Size (cm) - Length 5 4 -Current Size (cm) - Width 4.2 4 -Current Size (cm) - Depth 0.1 0.1 -Total Square Cm 21.0 16 -Photo Taken Yes -Tunneling No -Undermining/Tunneling No -Circular Undermining No -Exudate Amt Medium Medium -Exudate Type Serosanguineous Yellow/Green -Wound Margin Distinct, Distinct, Outline Outline Attached Attached -Granulation Amt Medium (34-66%) -Slough/Fibrin Yes Yes -Necrosis Amt Medium (34-66%) Medium (34-66%) -Necrotic Tissue Type Adherent Slough Adherent Slough -Structure Exposed N/A -Texture (Aleah-wound Skin Appearance) Assessed, Assessed Scarring -Moisture (Aleah-wound Skin Appearance) Maceration -Color (Aleah-wound Skin Appearance) Assessed Assessed -Temperature (Aleah-wound Skin No Abnormality No Abnormality Appearance) (Pt Warm) (Pt Warm) -Tenderness on Palpation (Aleah-wound No Yes Skin Appearance) -Ulcer Cleansing Wound Cleanser Soap and Water -Foul Odor after Cleansing No No -Anesthetic Used 5% Lidocaine 5% Lidocaine Gel Gel Left Calf (cm) 34 Left Ankle (cm) 25 WC - Nurse 2 - General Ulcer CM Notes Start: 11/12/24 08:27 Freq: Status: Active Protocol: Activity Type Activity Date Activity User E-sign Co-sign Detail Recorded Client Recorded Date Recorded By Document 11/12/24 08:41 DS [id number] 11/12/24 08:48 DS Document 11/19/24 09:02 DS [id number] 11/19/24 09:07 DS 11/12/24 11/19/24 08:41 09:02 Wound Center Nurse 2 #1 L Whitley -Time 08: 09:02 -Correct Patient Yes Yes -Correct Side, Site, Position Yes Yes -Correct Procedure Yes Yes -Procedure Performed Yes Yes -Type of Procedure Debridement Debridement -Clinical Debridement Subcutaneous Subcutaneous -Tissue Removed Subcutaneous Subcutaneous -Post Debridement (cm) - Length 5.0 4.7 -Post Debridement (cm) - Width 2.8 2.5 -Post Debridement (cm) - Depth 0.1 0.1 -Total Square (Post) (cm) 14.00 11.75 -Area of Debridement (cm) - Length 5.0 4.7 -Area of Debridement (cm) - Width 2.8 2.5 -Total Square (Area) (cm) 14.00 11.75 -Tunneling No No -Undermining/Tunneling No No -Circular Undermining No No -Wound/Ulcer Outcome Not Healed Not Healed -Ulcer Cleansing Rinsed/ Rinsed/ Irrigated with Irrigated with Saline Saline -Foul Odor after Cleansing No No -Bioengineered Tissue Yes Yes -Type of Bioengineered Tissue Epifix Mesh Epifix Mesh -Expiration Date 05/16/29 05/13/29 -Product Lot Number [id number] -Percent Used 100 100 -Lot number of Saline Used [id number] -Bleeding Controlled with Pressure Pressure -Treatment Response Procedure Procedure Tolerated Well Tolerated Well -Debridement - Subq, 1st 20sq cm No No -Apply Skin Sub - 1st 25 sq cm - Legs 1 1 -Epifix Mesh Application 1-4 (per sq 11 11 cm) Pain Scale: 0-10 Numeric Is Patient Pain Free? Yes Yes - Nurse 3 - General Ulcer D/C NN Start: 11/12/24 08:27 Freq: Status: Active Protocol: Activity Type Activity Date Activity User E-sign Co-sign Detail Recorded Client Recorded Date Recorded By Document 11/12/24 08:59 CP [id number] 11/12/24 08:59 CP Document 11/19/24 09:24 ML [id number] 11/19/24 09:25 ML 11/12/24 11/19/24 08:59 09:24 Wound Care Center Nurse 3 #1 L Whitley -Primary Dressing Applied Silicone Border Silicone Border Foam 6x6 Foam 6x6 -Silicone Border Foam 6x6 1 1 LLE -Tubular Bandage Single Layer Single Layer -Size of Tubigrip Used Size E Size E -Size E ($) 1 1 Pain Scale: 0-10 Numeric Is Patient Pain Free? Yes Yes WC - Visit Discharge Discharge Condition Stable Ambulatory Status Ambulatory Transportation Private Auto Clinical Summary of Care Provided Yes Assessment/Plan Assessment/Plan (1) Fall: CODE(S): W19.XXXA - Unspecified fall, initial encounter QUALIFIERS: Encounter type: initial encounter Qualified Code(s): W19.XXXA - Unspecified fall, initial encounter (2) Compression fracture of L2: CODE(S): S32.020A - Wedge compression fracture of second lumbar vertebra, initial encounter for closed fracture QUALIFIERS: Encounter type: initial encounter Qualified Code(s): S32.020A - Wedge compression fracture of second lumbar vertebra, initial encounter for closed fracture (3) Left leg DVT: CODE(S): I82.402 - Acute embolism and thrombosis of unspecified deep veins of left lower extremity QUALIFIERS: Affected thrombotic vein of extremity: unspecified lower extremity proximal vein Chronicity: acute Qualified Code(s): I82.4Y2 - Acute embolism and thrombosis of unspecified deep veins of left proximal lower extremity (4) 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 (5) Edema of left lower extremity: CODE(S): R60.0 - Localized edema
--- NOTE | 2024-11-20 09:17 | WC ---
PHOTO-CARLEY LEIGH 11/19/24
[2024-11-26 11:41] VITALS: PULSE 99; RESP 16; TEMP 36.5; O2SAT 100
--- NOTE | 2024-11-26 13:15 | PCM.WC.PN ---
History of Present Illness Date of Service: 11/26/24 Chief Complaint: Left whitley traumatic wound since September 25 History of Wound: This is an 84-year-old female with had lives by herself and fell into a cement step and gouged her left whitley back in September 25 she has been using alcohol and neomycin on it. She also has history of clots in her left leg that is affected so it is extra-large. After a month or so she finally went and saw her doctor and they put her on cephalexin and doxycycline and a Rocephin injection and then sent her to the wound center. Leg is an open wound with some erythema and slough Progress of Wound: She has had 3 EpiFix to the leg and it looks wonderful even after that with depth and the perimeter is healing very well. She has got new cell growth in the base of the wound upon debridement and everything looks quite well-healed she has no pain and she says she feels like it is getting much better. We will continue epi #4 to her left lower leg whitley Subjective Subjective Patient is extremely pleased with outcomes probably be discharged next week she was very excited Objective Data Objective Data Healing well it has islands of new tissue there is just some areas that just have not quite gotten a Over that will work. We will apply epi #4 mesh and should probably get discharge next week Vital Signs: Vital Signs Temp Pulse Resp BP Pulse Ox O2 Del Method 97.7 F L 99 16 211/110 H 100 Room Air 11/26/24 11:41 11/26/24 11:41 11/26/24 11:41 11/12/24 08:30 11/26/24 11:41 11/26/24 11:41 Oxygen Delivery Method Room Air Lab / Micro Data Attestation: I reviewed the patient's lab results. Physical Exam Narrative It was brought to our attention that her blood pressure was elevated she says she only takes 1 pill in the morning and the next 1 at 10 and we will recheck it later and that was with an automatic blood pressure cuff I asked them then to recheck with a manual blood pressure cuff it was still high patient says she is due for her next med we suggested she see her primary care and her automobile mechanic radiator and try to move up the appointments. From 3 weeks to 1 week Const oriented x3 General Appearance: cooperative Exam Limitations: no limitations HEENT normocephalic Head and Scalp: normal to inspection Face and Sinus: normal facial exam Nose: external nose normal General Ear: hearing grossly impaired External Ear: external ears normal Eyes General Eye: normal appearance of both eyes Neck full ROM General: normal visual inspection Resp normal respiratory effort Effort and Inspection: able to speak in complete sentences Auscultation: clear to auscultation bilaterally Cardio regular rate and regular rhythm Palpation: normal PMI Rate: regular rate Rhythm: regular rhythm GI Palpation: soft Back/Spine Cervical Spine: cervical ROM normal Thoracic Spine / Upper Back: normal to inspection Lumbar Spine / Lower Back: normal to inspection Extremity General Extremity: normal exam except as noted and edema Skin no rashes or lesions noted Skin Narrative: Open wound left whitley area General Skin Exam: erythema Neuro oriented x3 Psych Appearance: grossly normal Speech: normal speech Thought Content: normal thought content Judgement: judgement good Debridement Note Debridement Note No debridement was completed: No debridement was completed today Post-Debridement Measurements and Additional Note: Post-Debridement Measurements/Treatment CORAL - Nurse 1 - General Ulcer Assessment Start: 11/12/24 08:27 Freq: Status: Active Protocol: CONSUELO Activity Type Activity Date Activity User E-sign Co-sign Detail Recorded Client Recorded Date Recorded By Document 11/12/24 08:30 CP [id number] 11/12/24 08:34 CP Document 11/19/24 08:43 ML [id number] 11/19/24 08:53 ML Document 11/26/24 11:41 CP [id number] 11/26/24 11:47 CP 11/12/24 11/19/24 11/26/24 08:30 08:43 11:41 - Today's Visit Information Type of service Follow-up Visit Follow-up Visit Follow-up Visit (Physician/BOILER OPERATORS SUPERVISOR (Physician/BOILER OPERATORS SUPERVISOR (Physician/BOILER OPERATORS SUPERVISOR ) ) ) Arrival Mode Ambulatory, Ambulatory, Ambulatory, Walker Walker Walker Transfer Assistance None Patient Identification Verified (Name & Yes Yes Yes ) Patient Requires Transmission-Based No Precautions Vital Signs Temperature (97.8 F-99.1 F) 97.8 F 77 F L 97.7 F L Temperature Source Temporal Temporal Temporal Pulse Rate (60-100) 80 65 99 Pulse Location Monitor Monitor Monitor Respiratory Rate (12-18) 16 14 16 Respiratory rate source Observation Monitor Observation Pulse Oximetry 100 Oxygen Delivery Method Room Air Blood Pressure (90/60-120/80) 211/110 H Blood Pressure Mean (mm Hg) 143 Source Manual Position Sitting Blood Pressure Location Left Arm History Since Last Visit- (Skip if this is Patient's initial visit) Have you changed medications since your No No No last visit? Any new allergies or adverse reactions No No No Had a fall/change in ADL's that may No No No increase risk of falls Signs or symptoms of abuse and/or No No No neglect since last visit Have you been in the hospital since your No No last visit? Has dressing in place as prescribed Yes Yes Yes Has compression in place as prescribed Yes N/A Yes Has offloadiing in place as prescribed N/A N/A N/A Experienced any changes in pain level or No No No management Pain Scale: 0-10 Numeric Is Patient Pain Free? Yes Yes Yes WC - Nurse 1 - General Ulcer Measurement Start: 11/12/24 08:27 Freq: Status: Active Protocol: Activity Type Activity Date Activity User E-sign Co-sign Detail Recorded Client Recorded Date Recorded By Document 11/12/24 08:30 CP [id number] 11/12/24 08:34 CP Document 11/19/24 08:43 ML [id number] 11/19/24 08:53 ML Document 11/26/24 11:41 CP [id number] 11/26/24 11:47 CP 11/12/24 11/19/24 11/26/24 08:30 08:43 11:41 Wound Center Nurse 1 #1 L Whitley -Combined with other wound No -Current Size (cm) - Length 5 4 3 -Current Size (cm) - Width 4.2 4 2 -Current Size (cm) - Depth 0.1 0.1 0.1 -Total Square Cm 21.0 16 6 -Date of Last Picture (Recall this 11/26/24 field) -Photo Taken Yes Yes -Epithelialization Small 1-33% -Tunneling No No -Undermining/Tunneling No No -Circular Undermining No -Exudate Amt Medium Medium Small -Exudate Type Serosanguineous Yellow/Green Serosanguineous -Wound Margin Distinct, Distinct, Flat & Intact Outline Outline Attached Attached -Granulation Amt Medium (34-66%) Large (67-100%) -Granulation Quality Red -Slough/Fibrin Yes Yes No -Necrosis Amt Medium (34-66%) Medium (34-66%) -Necrotic Tissue Type Adherent Slough Adherent Slough -Structure Exposed N/A N/A -Texture (Aleah-wound Skin Appearance) Assessed, Assessed Scarring -Moisture (Aleah-wound Skin Appearance) Maceration No Abnormality -Color (Aleah-wound Skin Appearance) Assessed Assessed No Abnormality -Temperature (Aleah-wound Skin No Abnormality No Abnormality No Abnormality Appearance) (Pt Warm) (Pt Warm) (Pt Warm) -Tenderness on Palpation (Aleah-wound No Yes Yes Skin Appearance) -Ulcer Cleansing Wound Cleanser Soap and Water Rinsed/ Irrigated with Saline -Foul Odor after Cleansing No No No -Anesthetic Used 5% Lidocaine 5% Lidocaine 5% Lidocaine Gel Gel Gel Left Calf (cm) 34 Left Ankle (cm) 25 WC - Nurse 2 - General Ulcer CM Notes Start: 11/12/24 08:27 Freq: Status: Active Protocol: Activity Type Activity Date Activity User E-sign Co-sign Detail Recorded Client Recorded Date Recorded By Document 11/12/24 08:41 DS [id number] 11/12/24 08:48 DS Document 11/19/24 09:02 DS [id number] 11/19/24 09:07 DS Document 11/26/24 12:05 DS [id number] 11/26/24 12:06 DS 11/12/24 11/19/24 11/26/24 08:41 09:02 12:05 Wound Center Nurse 2 #1 L Whitley -Time 08:41 09:02 12:05 -Correct Patient Yes Yes Yes -Correct Side, Site, Position Yes Yes Yes -Correct Procedure Yes Yes Yes -Procedure Performed Yes Yes Yes -Type of Procedure Debridement Debridement Debridement -Clinical Debridement Subcutaneous Subcutaneous Subcutaneous -Tissue Removed Subcutaneous Subcutaneous Subcutaneous -Post Debridement (cm) - Length 5.0 4.7 3.0 -Post Debridement (cm) - Width 2.8 2.5 2.0 -Post Debridement (cm) - Depth 0.1 0.1 0.1 -Total Square (Post) (cm) 14.00 11.75 6.00 -Area of Debridement (cm) - Length 5.0 4.7 3.0 -Area of Debridement (cm) - Width 2.8 2.5 2.0 -Total Square (Area) (cm) 14.00 11.75 6.00 -Tunneling No No No -Undermining/Tunneling No No No -Circular Undermining No No No -Wound/Ulcer Outcome Not Healed Not Healed Not Healed -Ulcer Cleansing Rinsed/ Rinsed/ Rinsed/ Irrigated with Irrigated with Irrigated with Saline Saline Saline -Foul Odor after Cleansing No No No -Bioengineered Tissue Yes Yes No -Type of Bioengineered Tissue Epifix Mesh Epifix Mesh Epifix Mesh -Expiration Date 05/16/29 05/13/29 05/13/29 -Product Lot Number [id number] -Percent Used 100 100 100 -Lot number of Saline Used [id number] -Bleeding Controlled with Pressure Pressure Pressure -Treatment Response Procedure Procedure Procedure Tolerated Well Tolerated Well Tolerated Well -Debridement - Subq, 1st 20sq cm No No No -Apply Skin Sub - 1st 25 sq cm - Legs 1 1 1 -Epifix Mesh Application 1-4 (per sq 11 11 11 cm) Pain Scale: 0-10 Numeric Is Patient Pain Free? Yes Yes Yes - Nurse 3 - General Ulcer D/C NN Start: 11/12/24 08:27 Freq: Status: Active Protocol: Activity Type Activity Date Activity User E-sign Co-sign Detail Recorded Client Recorded Date Recorded By Document 11/12/24 08:59 CP [id number] 11/12/24 08:59 CP Document 11/19/24 09:24 ML [id number] 11/19/24 09:25 ML Document 11/26/24 12:16 CP [id number] 11/26/24 12:17 CP 11/12/24 11/19/24 11/26/24 08:59 09:24 12:16 Wound Care Center Nurse 3 #1 L Whitley -Primary Dressing Applied Silicone Border Silicone Border Silicone Border Foam 6x6 Foam 6x6 Foam 6x6 -Silicone Border Foam 6x6 1 1 1 LLE -Tubular Bandage Single Layer Single Layer Single Layer -Size of Tubigrip Used Size E Size E Size E -Size E ($) 1 1 1 Pain Scale: 0-10 Numeric Is Patient Pain Free? Yes Yes Yes - Visit Discharge Discharge Condition Stable Stable Ambulatory Status Ambulatory Ambulatory, Walker Transportation Private Auto Clinical Summary of Care Provided Yes Yes Assessment/Plan Assessment/Plan (1) Fall: CODE(S): W19.XXXA - Unspecified fall, initial encounter QUALIFIERS: Encounter type: initial encounter Qualified Code(s): W19.XXXA - Unspecified fall, initial encounter (2) Compression fracture of L2: CODE(S): S32.020A - Wedge compression fracture of second lumbar vertebra, initial encounter for closed fracture QUALIFIERS: Encounter type: initial encounter Qualified Code(s): S32.020A - Wedge compression fracture of second lumbar vertebra, initial encounter for closed fracture (3) Left leg DVT: CODE(S): I82.402 - Acute embolism and thrombosis of unspecified deep veins of left lower extremity QUALIFIERS: Affected thrombotic vein of extremity: unspecified lower extremity proximal vein Chronicity: acute Qualified Code(s): I82.4Y2 - Acute embolism and thrombosis of unspecified deep veins of left proximal lower extremity (4) 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 (5) Edema of left lower extremity: CODE(S): R60.0 - Localized edema
--- NOTE | 2024-11-27 10:19 | WC ---
PHOTO-LEFT LEIGH 11/26/24
[2024-12-02 13:42] VITALS: BP 120/65; PULSE 80; RESP 18; TEMP 35.7
--- NOTE | 2024-12-03 09:06 | WC ---
PHOTO-CARLEY LEIGH 12/02/24
--- NOTE | 2024-12-04 16:55 | PCM.WC.HP ---
History of Present Illness Date of Service: 12/02/24 Chief Complaint: Traumatic wound of the left pretibial surface since September 25 History of Wound: Patient is seen and evaluated today as a courtesy visit for Esthela Bowden NP. Patient's history is as documented below: This is an 84-year-old female with lives by herself and fell into a cement step and gouged her left whitley back in September 25. She had been using alcohol and neomycin on it. She also has history of clots in her left leg that is affected so it is extra-large. After a month or so she finally went and saw her doctor and they put her on cephalexin and doxycycline and a Rocephin injection and then sent her to the wound center. Leg is an open wound with some erythema and slough. Progress of Wound: She has had 4 EpiFix to the leg and it continues to improve. Progressive epithelialization is noted at the site of the wound. The patient says she feels like it is getting much better. We will continue epi #5 to her left lower leg pretibial wound. [facility] Medical History History of deep venous thrombosis (DVT) of distal vein of left lower extremity Thyroid nodule History of CVA (cerebrovascular accident) Personal history of colonic polyps Disorder of vitamin B12 Hyperlipidemia Essential (primary) hypertension Chronic kidney disease, stage 3a 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 Tubular adenoma of colon Esophagitis Gastritis Wears contact lenses Wears glasses Fibromyalgia Depression History of steroid therapy Ambulates with cane Arthritis History of renal disease Anemia High cholesterol Back pain Difficulty swallowing History of hiatal hernia History of IBS History of diverticulitis Hx of mitral valve prolapse Gastric reflux Non-smoker Shortness of breath on exertion Leg cramps History of edema Hypertension Cardiology follow-up encounter History of echocardiogram History of stress test Stroke/cerebrovascular accident Hiatal hernia Family history of colon cancer Weight loss Cataract Home Medications ?Medication ?Instructions ?Recorded ?Last Taken ?Type loratadine 10 mg tablet 10 mg PO DAILY PRN ALLERGIES 11/30/17 08/14/24 Rx losartan 100 mg tablet 100 mg PO DAILY heart #30 tabs 11/30/17 08/28/24 Rx paroxetine HCl 20 mg tablet 20 mg PO DAILY mood #30 tabs 11/30/17 08/28/24 Rx albuterol sulfate 90 mcg/actuation 1 puff inhalation Q6H PRN SOB 07/25/21 Unknown History aerosol inhaler cholecalciferol (vitamin D3) 25 25 mcg PO DAILY supplement 07/25/21 08/27/24 History mcg (1,000 unit) capsule (Vitamin D3) hydrochlorothiazide 25 mg tablet 25 mg PO DAILY blood pressure 07/25/21 08/27/24 History multivitamin 1 tab PO DAILY SUPPLEMENT 12/26/21 08/27/24 History dexlansoprazole 60 mg 60 mg PO BID reflux #120 caps 12/30/21 08/27/24 Rx capsule,biphase delayed release (Dexilant) clonidine HCl 0.1 mg tablet 0.1 mg PO DAILY PRN high blood 07/05/23 08/14/24 History pressure inclisiran 284 mg/1.5 mL 284 mg subcut [id number] cholesterol 07/05/23 Unknown History subcutaneous syringe linaclotide 72 mcg capsule 72 mcg PO DAILY PRN constipation 07/05/23 06/12/24 History (Linzess) carvedilol 6.25 mg tablet (Coreg) 6.25 mg PO BID #60 tabs 02/25/24 08/28/24 Rx acetaminophen 500 mg tablet 500 mg PO Q6H PRN fever or pain 08/28/24 Unknown History (Acetaminophen Extra Strength) latanoprost 0.005 % eye drops 1 drp ophthalmic (eye) QHS 08/28/24 08/27/24 History meclizine 25 mg tablet 25 mg PO TID PRN PRN dizziness 08/28/24 08/28/24 History lidocaine 5 % topical patch 1 patch topical 2200 #30 ea 08/30/24 Unknown Rx apixaban 5 mg tablet (Eliquis) 5 mg PO BID 10/29/24 Unknown History clonidine 0.3 mg/24 hr weekly 2 patch transdermal QWEEK 11/17/24 Unknown History transdermal patch hydralazine 25 mg tablet 25 mg PO BID #60 tabs 11/17/24 Unknown Rx tramadol 50 mg tablet 50 mg PO BID 11/17/24 Unknown History Allergy/AdvReac Type Severity Reaction Status Date / Time adhesive tape Allergy Other Verified 11/17/24 11:10 valsartan Allergy Rash Verified 11/17/24 11:10 amlodipine AdvReac Other Verified 11/17/24 11:10 enalaprilat (From Vasotec) AdvReac Other Verified 11/17/24 11:10 minoxidil AdvReac Other Verified 11/17/24 11:10 risedronate sodium (From AdvReac Other Verified 11/17/24 11:10 Actonel) Family History Mother Cancer pancreatic Father Colon cancer Grandmother Breast cancer Surgical History History of carpal tunnel surgery of right wrist History of partial knee replacement History of cardiac catheterization History of total knee arthroplasty History of hysterectomy History of cholecystectomy S/P sclerotherapy of varicose veins H/O dilation and curettage History of tonsillectomy H/O adenoidectomy Social History Smoking Status: Never smoker alcohol intake: current alcohol intake frequency: holidays/special occasions only substance use type: does not use caffeine: Yes Type: coffee Number of servings: 1 Physical Exam Const alert, oriented x3, no apparent distress and no limitations General Appearance: cooperative and comfortable Exam Limitations: no limitations HEENT normocephalic and head/scalp atraumatic Head and Scalp: normal to inspection, normocephalic and atraumatic Face and Sinus: normal facial exam Nose: external nose normal General Ear: hearing grossly impaired External Ear: external ears normal Eyes EOMs intact bilaterally General Eye: normal appearance of both eyes Neck full ROM General: normal visual inspection Resp normal respiratory effort, normal air movement, no retractions and no use of accessory muscles Effort and Inspection: able to speak in complete sentences Auscultation: clear to auscultation bilaterally GI Palpation: soft Extremity General Extremity: normal exam except as noted and edema Skin Skin Narrative: Open wound left whitley area General Skin Exam: erythema Wound Narrative: A wound is noted on the left pretibial surface. Dimensions are documented elsewhere. The wound is full-thickness, extending through all layers of the dermis and into the subcutaneous tissues. It appears to be diminishing in size. There is no sign of infection or cellulitis. Wound margins are well beveled. There is evidence of healthy granulation tissue and peripheral epithelialization. There is a small amount of bioburden and slough. Neuro oriented x3, CN's II-XII intact bilaterally and moves all extremities Sensorium / Orientation: awake, alert, oriented to person, oriented to place and oriented to time Speech: speech normal Psych Appearance: grossly normal Attitude: calm Activity / Motor Behavior: appropriate eye contact Speech: normal speech Mood & Affect: euthymic mood Attention / Concentration: attention grossly intact Debridement Note Debridement Note Wound debrided: Traumatic left pretibial wound Laterality: Left Type of Debridement: Excisional debridement Anesthesia Used: 5% Lidocaine Gel and Cetacaine Depth: Down to and including healthy tissue and in the subcutaneous layer Percentage of wound debrided: 100 Instrument Used: 5mm curette Tissue Removed: Bioburden and slough Severity: Fat Layer Exposed Amount of bleeding with debridement: Mild Bleeding Controlled with: Compression and gauze Patient tolerated procedure: Patient tolerated procedure well Debridement Free Text: Following a routine excisional debridement, an EpiFix allograft was selected for placement. Based upon the wound measurements, a 2 cm x 2 cm EpiFix allograft was selected. The allograft was removed from its sterile packaging. It was then cut and fashioned to the appropriate size and shape. It was applied to the surface of the wound, over which Adaptic Touch was placed. Steri-Strips were then used to anchor the Adaptic Touch in place. Collagen hydrogel was placed over the Adaptic. A dry sterile gauze dressing was then applied. A double Tubigrip compression sleeve was then applied. 100% of the allograft was utilized. This represents the 5th application of an allograft at this site. Post-Debridement Measurements and Additional Note: Post-Debridement Measurements/Treatment WC - Nurse 1 - General Ulcer Assessment Start: 11/12/24 08:27 Freq: Status: Active Protocol: WC.LOWDIANET Activity Type Activity Date Activity User E-sign Co-sign Detail Recorded Client Recorded Date Recorded By Document 11/12/24 08:30 CP [id number] 11/12/24 08:34 CP Document 11/19/24 08:43 ML [id number] 11/19/24 08:53 ML Document 11/26/24 11:41 CP [id number] 11/26/24 11:47 CP Document 12/02/24 13:42 RB [id number] 12/02/24 13:52 RB 11/12/24 11/19/24 11/26/24 08:30 08:43 11:41 [facility] Today's Visit Information Type of service Follow-up Visit Follow-up Visit Follow-up Visit (Physician/CERTIFICATION ENGINEER (Physician/CERTIFICATION ENGINEER (Physician/CERTIFICATION ENGINEER ) ) ) Arrival Mode Ambulatory, Ambulatory, Ambulatory, Walker Walker Walker Transfer Assistance None Transfer Assist (Other) Patient Identification Verified (Name & Yes Yes Yes ) Patient Requires Transmission-Based No Precautions Vital Signs Temperature (97.8 F-99.1 F) 97.8 F 77 F L 97.7 F L Temperature Source Temporal Temporal Temporal Pulse Rate (60-100) 80 65 99 Pulse Location Monitor Monitor Monitor Respiratory Rate (12-18) 16 14 16 Respiratory rate source Observation Monitor Observation Pulse Oximetry 100 Oxygen Delivery Method Room Air Blood Pressure (90/60-120/80) 211/110 H Blood Pressure Mean 143 Source Manual Position Sitting Blood Pressure Location Left Arm History Since Last Visit- (Skip if this is Patient's initial visit) Have you changed medications since your No No No last visit? Any new allergies or adverse reactions No No No Had a fall/change in ADL's that may No No No increase risk of falls Signs or symptoms of abuse and/or No No No neglect since last visit Have you been in the hospital since your No No last visit? Has dressing in place as prescribed Yes Yes Yes Has compression in place as prescribed Yes N/A Yes Has offloadiing in place as prescribed N/A N/A N/A Experienced any changes in pain level or No No No management Left Footwear Right Footwear Pain Scale: 0-10 Numeric Is Patient Pain Free? Yes Yes Yes 12/02/24 13:42 [facility] Today's Visit Information Type of service Follow-up Visit (Physician/CERTIFICATION ENGINEER ) Arrival Mode Ambulatory Transfer Assistance None Transfer Assist (Other) Patient Identification Verified (Name & Yes ) Patient Requires Transmission-Based No Precautions Vital Signs Temperature (97.8 F-99.1 F) 96.3 F L Temperature Source Temporal Pulse Rate (60-100) 80 Pulse Location Monitor Respiratory Rate (12-18) 18 Respiratory rate source Observation Pulse Oximetry Oxygen Delivery Method Blood Pressure (90/60-120/80) 120/65 Blood Pressure Mean 83 Source Monitor Position Semi-Fowlers Blood Pressure Location Left Arm History Since Last Visit- (Skip if this is Patient's initial visit) Have you changed medications since your No last visit? Any new allergies or adverse reactions No Had a fall/change in ADL's that may No increase risk of falls Signs or symptoms of abuse and/or No neglect since last visit Have you been in the hospital since your No last visit? Has dressing in place as prescribed Yes Has compression in place as prescribed Yes Has offloadiing in place as prescribed N/A Experienced any changes in pain level or No management Left Footwear Regular Shoe Right Footwear Regular Shoe Pain Scale: 0-10 Numeric Is Patient Pain Free? Yes WC - Nurse 1 - General Ulcer Measurement Start: 11/12/24 08:27 Freq: Status: Active Protocol: Activity Type Activity Date Activity User E-sign Co-sign Detail Recorded Client Recorded Date Recorded By Document 11/12/24 08:30 CP [id number] 11/12/24 08:34 CP Document 11/19/24 08:43 ML [id number] 11/19/24 08:53 ML Document 11/26/24 11:41 CP [id number] 11/26/24 11:47 CP Document 12/02/24 13:42 RB [id number] 12/02/24 13:52 RB 11/12/24 11/19/24 11/26/24 08:30 08:43 11:41 Wound Center Nurse 1 #1 L Whitley -Combined with other wound No -Current Size (cm) - Length 5 4 3 -Current Size (cm) - Width 4.2 4 2 -Current Size (cm) - Depth 0.1 0.1 0.1 -Total Square Cm 21.0 16 6 -Date of Last Picture (Recall this 11/26/24 field) -Photo Taken Yes Yes -Epithelialization Small 1-33% -Tunneling No No -Undermining/Tunneling No No -Circular Undermining No -Exudate Amt Medium Medium Small -Exudate Type Serosanguineous Yellow/Green Serosanguineous -Wound Margin Distinct, Distinct, Flat & Intact Outline Outline Attached Attached -Granulation Amt Medium (34-66%) Large (67-100%) -Granulation Quality Red -Slough/Fibrin Yes Yes No -Necrosis Amt Medium (34-66%) Medium (34-66%) -Necrotic Tissue Type Adherent Slough Adherent Slough -Structure Exposed N/A N/A -Texture (Aleah-wound Skin Appearance) Assessed, Assessed Scarring -Moisture (Aleah-wound Skin Appearance) Maceration No Abnormality -Color (Aleah-wound Skin Appearance) Assessed Assessed No Abnormality -Temperature (Aleah-wound Skin No Abnormality No Abnormality No Abnormality Appearance) (Pt Warm) (Pt Warm) (Pt Warm) -Tenderness on Palpation (Aleah-wound No Yes Yes Skin Appearance) -Ulcer Cleansing Wound Cleanser Soap and Water Rinsed/ Irrigated with Saline -Foul Odor after Cleansing No No No -Anesthetic Used 5% Lidocaine 5% Lidocaine 5% Lidocaine Gel Gel Gel Lower Limb Edema Present Left Calf (cm) 34 Left Ankle (cm) 25 12/02/24 13:42 Wound Center Nurse 1 #1 L Whitley -Combined with other wound No -Current Size (cm) - Length 3.1 -Current Size (cm) - Width 2.5 -Current Size (cm) - Depth 0.1 -Total Square Cm 7.75 -Date of Last Picture (Recall this field) -Photo Taken Yes -Epithelialization Medium 34-66% -Tunneling No -Undermining/Tunneling No -Circular Undermining No -Exudate Amt Medium -Exudate Type Yellow/Green -Wound Margin Indistinct, Non -Visible -Granulation Amt Medium (34-66%) -Granulation Quality Red -Slough/Fibrin Yes -Necrosis Amt Small (1-33%) -Necrotic Tissue Type Adherent Slough -Structure Exposed N/A -Texture (Aleah-wound Skin Appearance) Assessed, Scarring -Moisture (Aleah-wound Skin Appearance) No Abnormality -Color (Aleah-wound Skin Appearance) No Abnormality, Assessed -Temperature (Aleah-wound Skin No Abnormality Appearance) (Pt Warm) -Tenderness on Palpation (Aleah-wound No Skin Appearance) -Ulcer Cleansing Soap and Water -Foul Odor after Cleansing No -Anesthetic Used 5% Lidocaine Gel Lower Limb Edema Present No Left Calf (cm) 39 Left Ankle (cm) 23.2 WC - Nurse 2 - General Ulcer CM Notes Start: 11/12/24 08:27 Freq: Status: Active Protocol: Activity Type Activity Date Activity User E-sign Co-sign Detail Recorded Client Recorded Date Recorded By Document 11/12/24 08:41 DS [id number] 11/12/24 08:48 DS Document 11/19/24 09:02 DS [id number] 11/19/24 09:07 DS Document 11/26/24 12:05 DS [id number] 11/26/24 12:06 DS Document 12/02/24 14:17 DS [id number] 12/02/24 14:27 DS 11/12/24 11/19/24 11/26/24 08:41 09:02 12:05 Wound Center Nurse 2 #1 L Whitley -Time 08:41 09:02 12:05 -Correct Patient Yes Yes Yes -Correct Side, Site, Position Yes Yes Yes -Correct Procedure Yes Yes Yes -Procedure Performed Yes Yes Yes -Type of Procedure Debridement Debridement Debridement -Clinical Debridement Subcutaneous Subcutaneous Subcutaneous -Tissue Removed Subcutaneous Subcutaneous Subcutaneous -Post Debridement (cm) - Length 5.0 4.7 3.0 -Post Debridement (cm) - Width 2.8 2.5 2.0 -Post Debridement (cm) - Depth 0.1 0.1 0.1 -Total Square (Post) (cm) 14.00 11.75 6.00 -Area of Debridement (cm) - Length 5.0 4.7 3.0 -Area of Debridement (cm) - Width 2.8 2.5 2.0 -Total Square (Area) (cm) 14.00 11.75 6.00 -Tunneling No No No -Undermining/Tunneling No No No -Circular Undermining No No No -Wound/Ulcer Outcome Not Healed Not Healed Not Healed -Ulcer Cleansing Rinsed/ Rinsed/ Rinsed/ Irrigated with Irrigated with Irrigated with Saline Saline Saline -Foul Odor after Cleansing No No No -Bioengineered Tissue Yes Yes No -Type of Bioengineered Tissue Epifix Mesh Epifix Mesh Epifix Mesh -Expiration Date 05/16/29 05/13/29 05/13/29 -Product Lot Number [id number] -Percent Used 100 100 100 -Lot number of Saline Used [id number] -Bleeding Controlled with Pressure Pressure Pressure -Treatment Response Procedure Procedure Procedure Tolerated Well Tolerated Well Tolerated Well -Debridement - Subq, 1st 20sq cm No No No -Apply Skin Sub - 1st 25 sq cm - Legs 1 1 1 -Epifix Application 1-4 (per sq cm) -Epifix Mesh Application 1-4 (per sq 11 11 11 cm) Pain Scale: 0-10 Numeric Is Patient Pain Free? Yes Yes Yes 12/02/24 14:17 Wound Center Nurse 2 #1 L Whitley -Time 14:17 -Correct Patient Yes -Correct Side, Site, Position Yes -Correct Procedure Yes -Procedure Performed Yes -Type of Procedure Debridement -Clinical Debridement Subcutaneous -Tissue Removed Subcutaneous -Post Debridement (cm) - Length 1.4 -Post Debridement (cm) - Width 2.5 -Post Debridement (cm) - Depth 0.1 -Total Square (Post) (cm) 3.50 -Area of Debridement (cm) - Length 1.4 -Area of Debridement (cm) - Width 2.5 -Total Square (Area) (cm) 3.50 -Tunneling No -Undermining/Tunneling No -Circular Undermining No -Wound/Ulcer Outcome Not Healed -Ulcer Cleansing Rinsed/ Irrigated with Saline -Foul Odor after Cleansing No -Bioengineered Tissue Yes -Type of Bioengineered Tissue Epifix -Expiration Date 04/12/29 -Product Lot Number [id number] -Percent Used 100 -Lot number of Saline Used [id number] -Bleeding Controlled with Pressure -Treatment Response Procedure Tolerated Well -Debridement - Subq, 1st 20sq cm No -Apply Skin Sub - 1st 25 sq cm - Legs 1 -Epifix Application 1-4 (per sq cm) 4 -Epifix Mesh Application 1-4 (per sq cm) Pain Scale: 0-10 Numeric Is Patient Pain Free? Yes - Nurse 3 - General Ulcer D/C NN Start: 11/12/24 08:27 Freq: Status: Active Protocol: Activity Type Activity Date Activity User E-sign Co-sign Detail Recorded Client Recorded Date Recorded By Document 11/12/24 08:59 CP [id number] 11/12/24 08:59 CP Document 11/19/24 09:24 ML [id number] 11/19/24 09:25 ML Document 11/26/24 12:16 CP [id number] 11/26/24 12:17 CP Document 12/02/24 14:37 JF [id number] 12/02/24 14:37 JF 11/12/24 11/19/24 11/26/24 08:59 09:24 12:16 Wound Care Center Nurse 3 #1 L Whitley -Ulcer Cleansing -Foul Odor after Cleansing -Primary Dressing Applied Silicone Border Silicone Border Silicone Border Foam 6x6 Foam 6x6 Foam 6x6 -Silicone Border Foam 4x4 -Silicone Border Foam 6x6 1 1 1 BLE -Tubular Bandage -Size of Tubigrip Used -Size E ($) LLE -Tubular Bandage Single Layer Single Layer Single Layer -Size of Tubigrip Used Size E Size E Size E -Size E ($) 1 1 1 Pain Scale: 0-10 Numeric Is Patient Pain Free? Yes Yes Yes WC - Visit Discharge Discharge Condition Stable Stable Ambulatory Status Ambulatory Ambulatory, Walker Transportation Private Auto Accompanied by Medication Reconcilliation completed & provided to patient/care provider Clinical Summary of Care Provided Yes Yes 12/02/24 14:37 Wound Care Center Nurse 3 #1 L Whitley -Ulcer Cleansing Rinsed/ Irrigated with Saline -Foul Odor after Cleansing No -Primary Dressing Applied Silicone Border Foam 4x4 -Silicone Border Foam 4x4 1 -Silicone Border Foam 6x6 BLE -Tubular Bandage Single Layer -Size of Tubigrip Used Size E -Size E ($) 1 LLE -Tubular Bandage -Size of Tubigrip Used -Size E ($) Pain Scale: 0-10 Numeric Is Patient Pain Free? 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: CODE(S): L97.922 - Non-pressure chronic ulcer of unspecified part of left lower leg with fat layer exposed (2) History of deep venous thrombosis (DVT) of distal vein of left lower extremity: CODE(S): Z86.718 - Personal history of other venous thrombosis and embolism (3) Edema of left lower extremity: CODE(S): R60.0 - Localized edema (4) Fall: CODE(S): W19.XXXA - Unspecified fall, initial encounter QUALIFIERS: Encounter type: initial encounter Qualified Code(s): W19.XXXA - Unspecified fall, initial encounter (5) Compression fracture of L2: CODE(S): S32.020A - Wedge compression fracture of second lumbar vertebra, initial encounter for closed fracture QUALIFIERS: Encounter type: initial encounter Qualified Code(s): S32.020A - Wedge compression fracture of second lumbar vertebra, initial encounter for closed fracture PLAN: Plan This is an 84-year-old female who initially presented with a traumatic wound on the left pretibial surface, which occurred on September 25, 2024. It appears as though the patient's wound is diminishing in size and response to recent measures which have been implemented at the Wound Center. The 5th EpiFix allograft was applied to the site today. The patient has been instructed to leave the dressing in place and undisturbed until her return visit in 1 week with Esthela Bowden NP. She has also been instructed to elevate her lower extremities as much as possible, during both daytime and nighttime hours. Elevation is to be to heart level, or higher. Prolonged idle sitting has been discouraged. Activity/ambulation has been encouraged. We are to continue the use of a double Tubigrip compression sleeve on a daily basis. The patient has been encouraged to optimize her nutritional intake. Total time: 45 minutes
[2024-12-10 11:23] VITALS: PULSE 100; RESP 16; TEMP 36.3; O2SAT 94
--- NOTE | 2024-12-10 12:55 | PCM.WC.PN ---
History of Present Illness Date of Service: 12/10/24 Chief Complaint: Traumatic wound of the left pretibial surface since September 25 History of Wound: Patient is seen and evaluated today as a courtesy visit for Esthela Bowden NP. Patient's history is as documented below: This is an 84-year-old female with lives by herself and fell into a cement step and gouged her left whitley back in September 25. She had been using alcohol and neomycin on it. She also has history of clots in her left leg that is affected so it is extra-large. After a month or so she finally went and saw her doctor and they put her on cephalexin and doxycycline and a Rocephin injection and then sent her to the wound center. Leg is an open wound with some erythema and slough. Progress of Wound: Patient is completely healed and needs to be discharged from the wound center she can follow-up as needed she can wear a dry dressing on it for the next week Cappel protect the new skin otherwise she is discharged to go. Subjective Subjective Patient is very happy with outcomes Objective Data Objective Data Left leg looks very good pretibial and is healing nicely and has a little scab over it that we are not going to touch and she can be discharged with a dry dressing over top and she can follow-up as needed Vital Signs: Vital Signs Temp Pulse Resp BP Pulse Ox O2 Del Method 97.3 F L 100 16 120/65 94 Room Air 12/10/24 11:23 12/10/24 11:23 12/10/24 11:23 12/02/24 13:42 12/10/24 11:23 12/10/24 11:23 Oxygen Delivery Method Room Air Physical Exam Const alert, oriented x3, no apparent distress and no limitations General Appearance: cooperative and comfortable Exam Limitations: no limitations HEENT normocephalic and head/scalp atraumatic Head and Scalp: normal to inspection, normocephalic and atraumatic Face and Sinus: normal facial exam Nose: external nose normal General Ear: hearing grossly impaired External Ear: external ears normal Eyes EOMs intact bilaterally General Eye: normal appearance of both eyes Neck full ROM General: normal visual inspection Resp normal respiratory effort, normal air movement, no retractions and no use of accessory muscles Effort and Inspection: able to speak in complete sentences Auscultation: clear to auscultation bilaterally GI Palpation: soft Extremity General Extremity: normal exam except as noted and edema Skin Skin Narrative: Open wound left whitley area General Skin Exam: erythema Wound Narrative: A wound is noted on the left pretibial surface. Dimensions are documented elsewhere. The wound is full-thickness, extending through all layers of the dermis and into the subcutaneous tissues. It appears to be diminishing in size. There is no sign of infection or cellulitis. Wound margins are well beveled. There is evidence of healthy granulation tissue and peripheral epithelialization. There is a small amount of bioburden and slough. Neuro oriented x3, CN's II-XII intact bilaterally and moves all extremities Sensorium / Orientation: awake, alert, oriented to person, oriented to place and oriented to time Speech: speech normal Psych Appearance: grossly normal Attitude: calm Activity / Motor Behavior: appropriate eye contact Speech: normal speech Mood & Affect: euthymic mood Attention / Concentration: attention grossly intact Debridement Note Debridement Note No debridement was completed: No debridement was completed today Post-Debridement Measurements and Additional Note: Post-Debridement Measurements/Treatment - Nurse 1 - General Ulcer Assessment Start: 11/12/24 08:27 Freq: Status: Active Protocol: WC.LOWDIANET Activity Type Activity Date Activity User E-sign Co-sign Detail Recorded Client Recorded Date Recorded By Document 11/12/24 08:30 CP [id number] 11/12/24 08:34 CP Document 11/19/24 08:43 ML [id number] 11/19/24 08:53 ML Document 11/26/24 11:41 CP [id number] 11/26/24 11:47 CP Document 12/02/24 13:42 RB [id number] 12/02/24 13:52 RB Document 12/10/24 11:23 CP [id number] 12/10/24 11:29 CP 11/12/24 11/19/24 11/26/24 08:30 08:43 11:41 - Today's Visit Information Type of service Follow-up Visit Follow-up Visit Follow-up Visit (Physician/DISCIPLINARY HEARING OFFICER (Physician/DISCIPLINARY HEARING OFFICER (Physician/DISCIPLINARY HEARING OFFICER ) ) ) Arrival Mode Ambulatory, Ambulatory, Ambulatory, Walker Walker Walker Transfer Assistance None Transfer Assist (Other) Patient Identification Verified (Name & Yes Yes Yes ) Patient Requires Transmission-Based No Precautions Vital Signs Temperature (97.8 F-99.1 F) 97.8 F 77 F L 97.7 F L Temperature Source Temporal Temporal Temporal Pulse Rate (60-100) 80 65 99 Pulse Location Monitor Monitor Monitor Respiratory Rate (12-18) 16 14 16 Respiratory rate source Observation Monitor Observation Pulse Oximetry 100 Oxygen Delivery Method Room Air Blood Pressure (90/60-120/80) 211/110 H Blood Pressure Mean (mm Hg) 143 Source Manual Position Sitting Blood Pressure Location Left Arm History Since Last Visit- (Skip if this is Patient's initial visit) Have you changed medications since your No No No last visit? Any new allergies or adverse reactions No No No Had a fall/change in ADL's that may No No No increase risk of falls Signs or symptoms of abuse and/or No No No neglect since last visit Have you been in the hospital since your No No last visit? Has dressing in place as prescribed Yes Yes Yes Has compression in place as prescribed Yes N/A Yes Has offloadiing in place as prescribed N/A N/A N/A Experienced any changes in pain level or No No No management Left Footwear Right Footwear Pain Scale: 0-10 Numeric Is Patient Pain Free? Yes Yes Yes 12/02/24 12/10/24 13:42 11:23 WC - Today's Visit Information Type of service Follow-up Visit Follow-up Visit (Physician/DISCIPLINARY HEARING OFFICER (Physician/DISCIPLINARY HEARING OFFICER ) ) Arrival Mode Ambulatory Ambulatory, Walker Transfer Assistance None Transfer Assist (Other) Patient Identification Verified (Name & Yes ) Patient Requires Transmission-Based No Precautions Vital Signs Temperature (97.8 F-99.1 F) 96.3 F L 97.3 F L Temperature Source Temporal Temporal Pulse Rate (60-100) 80 100 Pulse Location Monitor Monitor Respiratory Rate (12-18) 18 16 Respiratory rate source Observation Pulse Oximetry 94 Oxygen Delivery Method Room Air Blood Pressure (90/60-120/80) 120/65 Blood Pressure Mean (mm Hg) 83 Source Monitor Position Semi-Fowlers Blood Pressure Location Left Arm History Since Last Visit- (Skip if this is Patient's initial visit) Have you changed medications since your No No last visit? Any new allergies or adverse reactions No No Had a fall/change in ADL's that may No No increase risk of falls Signs or symptoms of abuse and/or No No neglect since last visit Have you been in the hospital since your No No last visit? Has dressing in place as prescribed Yes Yes Has compression in place as prescribed Yes Yes Has offloadiing in place as prescribed N/A N/A Experienced any changes in pain level or No No management Left Footwear Regular Shoe Right Footwear Regular Shoe Pain Scale: 0-10 Numeric Is Patient Pain Free? Yes Yes WC - Nurse 1 - General Ulcer Measurement Start: 11/12/24 08:27 Freq: Status: Active Protocol: Activity Type Activity Date Activity User E-sign Co-sign Detail Recorded Client Recorded Date Recorded By Document 11/12/24 08:30 CP [id number] 11/12/24 08:34 CP Document 11/19/24 08:43 ML [id number] 11/19/24 08:53 ML Document 11/26/24 11:41 CP [id number] 11/26/24 11:47 CP Document 12/02/24 13:42 RB [id number] 12/02/24 13:52 RB Document 12/10/24 11:23 CP [id number] 12/10/24 11:29 CP 11/12/24 11/19/24 11/26/24 08:30 08:43 11:41 Wound Center Nurse 1 #1 L Whitley -Combined with other wound No -Current Size (cm) - Length 5 4 3 -Current Size (cm) - Width 4.2 4 2 -Current Size (cm) - Depth 0.1 0.1 0.1 -Total Square Cm 21.0 16 6 -Date of Last Picture (Recall this 11/26/24 field) -Photo Taken Yes Yes -Epithelialization Small 1-33% -Tunneling No No -Undermining/Tunneling No No -Circular Undermining No -Exudate Amt Medium Medium Small -Exudate Type Serosanguineous Yellow/Green Serosanguineous -Wound Margin Distinct, Distinct, Flat & Intact Outline Outline Attached Attached -Granulation Amt Medium (34-66%) Large (67-100%) -Granulation Quality Red -Slough/Fibrin Yes Yes No -Necrosis Amt Medium (34-66%) Medium (34-66%) -Necrotic Tissue Type Adherent Slough Adherent Slough -Structure Exposed N/A N/A -Texture (Aleah-wound Skin Appearance) Assessed, Assessed Scarring -Moisture (Aleah-wound Skin Appearance) Maceration No Abnormality -Color (Aleah-wound Skin Appearance) Assessed Assessed No Abnormality -Temperature (Aleah-wound Skin No Abnormality No Abnormality No Abnormality Appearance) (Pt Warm) (Pt Warm) (Pt Warm) -Tenderness on Palpation (Aleah-wound No Yes Yes Skin Appearance) -Ulcer Cleansing Wound Cleanser Soap and Water Rinsed/ Irrigated with Saline -Foul Odor after Cleansing No No No -Anesthetic Used 5% Lidocaine 5% Lidocaine 5% Lidocaine Gel Gel Gel Lower Limb Edema Present Left Calf (cm) 34 Left Ankle (cm) 25 12/02/24 12/10/24 13:42 11:23 Wound Center Nurse 1 #1 L Whitley -Combined with other wound No -Current Size (cm) - Length 3.1 0.1 -Current Size (cm) - Width 2.5 0.1 -Current Size (cm) - Depth 0.1 0.1 -Total Square Cm 7.75 0.01 -Date of Last Picture (Recall this 12/10/24 field) -Photo Taken Yes Yes -Epithelialization Medium 34-66% -Tunneling No -Undermining/Tunneling No -Circular Undermining No -Exudate Amt Medium -Exudate Type Yellow/Green -Wound Margin Indistinct, Non -Visible -Granulation Amt Medium (34-66%) -Granulation Quality Red -Slough/Fibrin Yes -Necrosis Amt Small (1-33%) -Necrotic Tissue Type Adherent Slough -Structure Exposed N/A -Texture (Aleah-wound Skin Appearance) Assessed, Scarring -Moisture (Aleah-wound Skin Appearance) No Abnormality -Color (Aleah-wound Skin Appearance) No Abnormality, Assessed -Temperature (Aleah-wound Skin No Abnormality Appearance) (Pt Warm) -Tenderness on Palpation (Aleah-wound No Skin Appearance) -Ulcer Cleansing Soap and Water Rinsed/ Irrigated with Saline -Foul Odor after Cleansing No -Anesthetic Used 5% Lidocaine 5% Lidocaine Gel Gel Lower Limb Edema Present No Left Calf (cm) 39 34 Left Ankle (cm) 23.2 23.4 WC - Nurse 2 - General Ulcer CM Notes Start: 11/12/24 08:27 Freq: Status: Active Protocol: Activity Type Activity Date Activity User E-sign Co-sign Detail Recorded Client Recorded Date Recorded By Document 11/12/24 08:41 DS [id number] 11/12/24 08:48 DS Document 11/19/24 09:02 DS [id number] 11/19/24 09:07 DS Document 11/26/24 12:05 DS [id number] 11/26/24 12:06 DS Document 12/02/24 14:17 DS [id number] 12/02/24 14:27 DS Document 12/10/24 12:15 DS [id number] 12/10/24 12:16 DS 11/12/24 11/19/24 11/26/24 08:41 09:02 12:05 Wound Center Nurse 2 #1 L Whitley -Time 08:41 09:02 12:05 -Correct Patient Yes Yes Yes -Correct Side, Site, Position Yes Yes Yes -Correct Procedure Yes Yes Yes -Procedure Performed Yes Yes Yes -Type of Procedure Debridement Debridement Debridement -Clinical Debridement Subcutaneous Subcutaneous Subcutaneous -Tissue Removed Subcutaneous Subcutaneous Subcutaneous -Post Debridement (cm) - Length 5.0 4.7 3.0 -Post Debridement (cm) - Width 2.8 2.5 2.0 -Post Debridement (cm) - Depth 0.1 0.1 0.1 -Total Square (Post) (cm) 14.00 11.75 6.00 -Area of Debridement (cm) - Length 5.0 4.7 3.0 -Area of Debridement (cm) - Width 2.8 2.5 2.0 -Total Square (Area) (cm) 14.00 11.75 6.00 -Tunneling No No No -Undermining/Tunneling No No No -Circular Undermining No No No -Wound/Ulcer Outcome Not Healed Not Healed Not Healed -Ulcer Cleansing Rinsed/ Rinsed/ Rinsed/ Irrigated with Irrigated with Irrigated with Saline Saline Saline -Foul Odor after Cleansing No No No -Bioengineered Tissue Yes Yes No -Type of Bioengineered Tissue Epifix Mesh Epifix Mesh Epifix Mesh -Expiration Date 05/16/29 05/13/29 05/13/29 -Product Lot Number [id number] -Percent Used 100 100 100 -Lot number of Saline Used [id number] -Bleeding Controlled with Pressure Pressure Pressure -Treatment Response Procedure Procedure Procedure Tolerated Well Tolerated Well Tolerated Well -Debridement - Subq, 1st 20sq cm No No No -Apply Skin Sub - 1st 25 sq cm - Legs 1 1 1 -Epifix Application 1-4 (per sq cm) -Epifix Mesh Application 1-4 (per sq 11 11 11 cm) Pain Scale: 0-10 Numeric Is Patient Pain Free? Yes Yes Yes 12/02/24 12/10/24 14:17 12:15 Wound Center Nurse 2 #1 L Whitley -Time 14:17 12:15 -Correct Patient Yes Yes -Correct Side, Site, Position Yes Yes -Correct Procedure Yes -Procedure Performed Yes No -Type of Procedure Debridement -Clinical Debridement Subcutaneous -Tissue Removed Subcutaneous -Post Debridement (cm) - Length 1.4 -Post Debridement (cm) - Width 2.5 -Post Debridement (cm) - Depth 0.1 -Total Square (Post) (cm) 3.50 -Area of Debridement (cm) - Length 1.4 -Area of Debridement (cm) - Width 2.5 -Total Square (Area) (cm) 3.50 -Tunneling No -Undermining/Tunneling No -Circular Undermining No -Wound/Ulcer Outcome Not Healed Healed- Epithelialized -Ulcer Cleansing Rinsed/ Irrigated with Saline -Foul Odor after Cleansing No -Bioengineered Tissue Yes -Type of Bioengineered Tissue Epifix -Expiration Date 04/12/29 -Product Lot Number [id number] -Percent Used 100 -Lot number of Saline Used [id number] -Bleeding Controlled with Pressure -Treatment Response Procedure Tolerated Well -Debridement - Subq, 1st 20sq cm No -Apply Skin Sub - 1st 25 sq cm - Legs 1 -Epifix Application 1-4 (per sq cm) 4 -Epifix Mesh Application 1-4 (per sq cm) Pain Scale: 0-10 Numeric Is Patient Pain Free? Yes Yes - Nurse 3 - General Ulcer D/C NN Start: 11/12/24 08:27 Freq: Status: Active Protocol: Activity Type Activity Date Activity User E-sign Co-sign Detail Recorded Client Recorded Date Recorded By Document 11/12/24 08:59 CP [id number] 11/12/24 08:59 CP Document 11/19/24 09:24 ML [id number] 11/19/24 09:25 ML Document 11/26/24 12:16 CP [id number] 11/26/24 12:17 CP Document 12/02/24 14:37 JF [id number] 12/02/24 14:37 JF Document 12/10/24 12:21 TS [id number] 12/10/24 12:25 TS 11/12/24 11/19/24 11/26/24 08:59 09:24 12:16 Wound Care Center Nurse 3 #1 L Whitley -Ulcer Cleansing -Foul Odor after Cleansing -Primary Dressing Applied Silicone Border Silicone Border Silicone Border Foam 6x6 Foam 6x6 Foam 6x6 -Primary Dressing Covered/Secured with -Silicone Border Foam 4x4 -Silicone Border Foam 6x6 1 1 1 BLE -Tubular Bandage -Size of Tubigrip Used -Size E ($) LLE -Tubular Bandage Single Layer Single Layer Single Layer -Size of Tubigrip Used Size E Size E Size E -Size E ($) 1 1 1 Pain Scale: 0-10 Numeric Is Patient Pain Free? Yes Yes Yes WC - Visit Discharge Discharge Condition Stable Stable Ambulatory Status Ambulatory Ambulatory, Walker Transportation Private Auto Accompanied by Medication Reconcilliation completed & provided to patient/care provider Clinical Summary of Care Provided Yes Yes 12/02/24 12/10/24 14:37 12:21 Wound Care Center Nurse 3 #1 L Whitley -Ulcer Cleansing Rinsed/ Not Cleansed Irrigated with Saline -Foul Odor after Cleansing No -Primary Dressing Applied Silicone Border Foam 4x4 -Primary Dressing Covered/Secured with Dry Gauze, Secured with Tape -Silicone Border Foam 4x4 1 -Silicone Border Foam 6x6 BLE -Tubular Bandage Single Layer Single Layer -Size of Tubigrip Used Size E Size E -Size E ($) 1 1 LLE -Tubular Bandage -Size of Tubigrip Used -Size E ($) Pain Scale: 0-10 Numeric Is Patient Pain Free? 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: CODE(S): Z86.718 - Personal history of other venous thrombosis and embolism (3) Edema of left lower extremity: CODE(S): R60.0 - Localized edema (4) Fall: CODE(S): W19.XXXA - Unspecified fall, initial encounter QUALIFIERS: Encounter type: initial encounter Qualified Code(s): W19.XXXA - Unspecified fall, initial encounter (5) Compression fracture of L2: CODE(S): S32.020A - Wedge compression fracture of second lumbar vertebra, initial encounter for closed fracture QUALIFIERS: Encounter type: initial encounter Qualified Code(s): S32.020A - Wedge compression fracture of second lumbar vertebra, initial encounter for closed fracture PLAN: Plan Discharge from the wound center and she can follow-up as needed
--- NOTE | 2024-12-11 10:39 | WC ---
PHOTO-LEFT LEIGH 12/10/24
== END 2024-12-10 15:49 | disposition home or self-care (01) ==
LOC: WC 11:15
PROVIDERS: PCP Family Medicine Geriatric Medicine; Referring Provider Family Medicine Geriatric Medicine; Visit Provider Nurse Practitioner
DX: L97.922 Non-pressure chronic ulcer of unspecified part of left lower leg with fat layer exposed (principal); S32.020A Wedge compression fracture of second lumbar vertebra, initial encounter for closed fracture; I82.4Y2 Acute embolism and thrombosis of unspecified deep veins of left proximal lower extremity; N18.31 Chronic kidney disease, stage 3a; Z79.83 Long term (current) use of bisphosphonates; I12.9 Hypertensive chronic kidney disease with stage 1 through stage 4 chronic kidney disease, or unspecified chronic kidney disease; K21.00 Gastro-esophageal reflux disease with esophagitis, without bleeding; Z79.899 Other long term (current) drug therapy; E78.00 Pure hypercholesterolemia, unspecified; M79.7 Fibromyalgia; Z79.01 Long term (current) use of anticoagulants; R60.0 Localized edema; Z86.718 Personal history of other venous thrombosis and embolism; Z90.710 Acquired absence of both cervix and uterus; Z90.49 Acquired absence of other specified parts of digestive tract; W19.XXXA Unspecified fall, initial encounter; Z86.73 Personal history of transient ischemic attack (TIA), and cerebral infarction without residual deficits
CPT/HCPCS: 15271; 99213; Q4186; G0463

== ENCOUNTER → 2024-12-11 | Outpatient (CLI) | payer MEDICARE, OTHER, SELFPAY ==
[2024-12-11 14:44] LABS: AST(SGOT) 28 U/L (<=31); Alanine Aminotransfer ALT/SGPT 16 U/L (<=34); Albumin, Serum 3.7 g/dL (3.4-4.8); Alkaline Phosphatase 91 U/L (35-104); Anion Gap 7 (5-15); BUN 22 mg/dL (4-19); BUN/Creat Ratio 20.2 RATIO (10-20); Calcium,Total 10.3 mg/dL (7.6-11.0); Carbon Dioxide 25.3 mmol/L (21.0-32.0); Chloride 108 mmol/L (98-108); Globulin 2.1 g/dL (2.2-4.2); Glucose 96 mg/dL (70-99); Potassium 4.4 mmol/L (3.3-5.1)
== END | disposition home or self-care (01) ==
LOC: LAB 13:16
PROVIDERS: PCP Family Medicine Geriatric Medicine; Referring Provider Family Medicine Geriatric Medicine; Visit Provider Family Medicine Geriatric Medicine
DX: I10 Essential (primary) hypertension (principal)
CPT/HCPCS: 80053

== ENCOUNTER → 2024-12-25 | Outpatient (CLI) | payer MEDICARE, OTHER, SELFPAY | END | disposition home or self-care (01) | PROVIDERS: PCP Family Medicine Geriatric Medicine; Referring Provider Family Medicine Geriatric Medicine; Visit Provider Family Medicine Geriatric Medicine | DX: J20.9 Acute bronchitis, unspecified (principal); R06.02 Shortness of breath | CPT/HCPCS: 94060 ==

== ENCOUNTER → 2025-01-13 | Outpatient (CLI) | payer MEDICARE, OTHER, SELFPAY | END | disposition home or self-care (01) | LOC: POLAB3 17:13 | PROVIDERS: PCP Family Medicine Geriatric Medicine; Visit Provider Family Medicine Geriatric Medicine | DX: R06.2 Wheezing (principal) | CPT/HCPCS: 87631 ==

== ENCOUNTER → 2025-01-14 | Outpatient (CLI) | payer MEDICARE, OTHER, SELFPAY ==
--- NOTE | 2025-01-14 14:57 | VDUE_ITS ---
Reason For Study Reason For Study: Left arm pain Left Proximal Left jugular vein is spontaneous, widely patent, phasic, with no intraluminal echogenicity noted. Left subclavian vein is spontaneous, widely patent, phasic, with no intraluminal echogenicity noted. Left Arm Left axillary vein is spontaneous, patent, phasic, competent, compressible and demonstrates augmentation. Left brachial vein is compressible. Left cephalic vein is compressible. Left basilic vein is compressible. Left Lower Arm Left radial vein is compressible. Left ulnar vein is compressible. Procedure This was a unilateral left upper extremity venous doppler examination. Exam performed in department. A preliminary report was called and/or faxed to Dr. March. VL/Venous Duplex US, Unilateral Interpretation Summary Deep veins of the left upper extremity are patent and compressible segmentally. There is no evidence of deep vein thrombosis. The superficial veins of the left upper extremity, the basilic and cephalic veins, are patent and compressible. There is no evidence of left upper extremity superficial thrombop hlebitis involving the veins imaged. Ordering Physician: Brandon March Chi Referring Physician: Brandon March Chi Performed By: Samira Rueda RVT ???
== END | disposition home or self-care (01) ==
LOC: CVS 14:56
PROVIDERS: PCP Family Medicine Geriatric Medicine; Referring Provider Family Medicine Geriatric Medicine; Visit Provider Family Medicine Geriatric Medicine
DX: L03.114 Cellulitis of left upper limb (principal); M79.602 Pain in left arm
CPT/HCPCS: 93971